=== PATIENT | female | born 1950 | race Caucasian/White ===

== ENCOUNTER → 2017-10-11 | Outpatient (CLI) | payer OTHER ==
[~2017-10-11] MED LIST: ALPR1T PO; CITA20TA4 PO; COLON HEALTH PO; CYCL10TA9 PO; ESTR2TAB PO; LEVO75TA6 PO; MEDR5TAB PO; SIMV20TA3 PO
--- NOTE | 2017-10-11 10:37 | Diagnostic Imaging Report ---
CLINICAL INDICATION: Patient lifted a heavy object a week ago. Patient is having low back pain and urinary difficulty. EXAM: X-ray of the lumbar spine, three views. COMPARISON: X-ray of the lumbar spine dated 03/24/2015. FINDINGS: There is no interval acute lumbar spine fracture or dislocation. There is levoscoliosis of lumbar spine seen which is relatively stable. The vertebral body heights and intervertebral disc heights are grossly within normal limits. There is minimal spurring of the lumbar spine again seen which has significantly changed. There is lower lumbar spine facet arthropathy. Phleboliths are seen in the pelvis. Sacroiliac joint show no major abnormality. Surgical clips are seen overlying the right upper quadrant which could be related to cholecystectomy changes. IMPRESSION: 1: There is no acute fracture or dislocation. 2: There is levoscoliosis of lumbar spine with mild lumbar spine degenerative disease which is not significantly changed. Dictated by: Dictated on workstation # [id number]
--- NOTE | 2017-10-11 10:38 | Diagnostic Imaging Report ---
Clinical indication: Patient states she lifted a heavy object a week ago. Patient having low back pain and urinary difficulty. Exam: X-ray of the sacroiliac joints, AP and bilateral oblique views. Comparison: X-ray of the lumbar spine dated 03/25/2015. Findings: There is stable appearance of the sacroiliac joints with no significant abnormality. There is no erosive changes or significant sclerosis or spurring. There is no fracture or dislocation. Visualized portions of the sacrum is unremarkable. Phleboliths are seen in the pelvis. Impression: Unremarkable x-ray of the sacroiliac joints. Dictated by: Dictated on workstation # [id number]
== END ==
LOC: RAD 09:48
PROVIDERS: ATTEND Nurse Practitioner Family
DX: M47.816 Spondylosis without myelopathy or radiculopathy, lumbar region (principal); M41.86 Other forms of scoliosis, lumbar region; N39.9 Disorder of urinary system, unspecified
CPT/HCPCS: 72100; 72202

== ENCOUNTER 2017-11-24 08:24 | Emergency (ER) | payer OTHER ==
[~2017-11-24] VITALS: Ht 170.2 cm; Wt 54.4 kg
--- OUTSIDE RECORDS SUMMARY | 2017-11-24 08:32 | XMS REPORT | Continuity of Care Document ---
Author Author [facility] Organization [facility] Address Unknown Phone Unavailable Care Team Providers [employer] Name Role Phone EULA ALICEA DO PP Insurance Providers Payer Name Policy Number Subscriber Name Relationship [facility] [id number] MedranoIlda Calhoun 01 Self / Same As Patient Advance Directives Directive Response Recorded Date Advance Directives N 09/29/12 1:21pm Health Care Power of [place] Machine Operator N 09/29/12 1:21pm Organ Donor N 09/29/12 1:21pm Problems No Known Problems or Medical conditions. Allergies, Adverse Reactions, Alerts Allergen Type Severity Reaction Last Updated Sulfa (Sulfonamides) Allergy Unknown 04/20/07 Morphine Adverse Reaction Mild UPSET STOMACH, N/V 04/21/07 Zolmitriptan Allergy Unknown 04/20/07 Medications Medication Dose Units Route Sig Qty Days [[facility]] 1 Tab PO DAILY Medroxyprogesterone Acetate (Provera) 2.5 Mg PO HS Estradiol (Estrace) 1 Mg PO HS Simvastatin 20 Mg PO HS Cyclobenzaprine HCl (Cyclobenzaprine Hcl) 10 Mg PO HS Alprazolam (Xanax) 1 Mg PO HS Citalopram Hydrobromide (CeleXA TABLET) 20 Mg PO DAILY Levothyroxine Sodium (Levothyroxine 75 Mcg Tab) 75 Mcg PO DAILY Response Recorded Date/Time Status not known Unknown Results Test Date Result Interp. Ref. Range Alanine Aminotransferase (ALT/SGPT) April 21, 2007 4: 38am 36 U/L N 30-65 Albumin April 21, 2007 4:38am 2.9 G/ DL L 3.4-5.0 Alkaline Phosphatase April 21, 2007 4:38am 62 U/L N 50-136 Aspartate Amino Transf (AST/SGOT) April 21, 2007 4:38am 29 U/L N 15-37 BUN/Creatinine Ratio April 22, 2007 8:10am 7 - Basophils # (Auto) April 22, 2007 8:10am 0.0 10^3/uL N 0.0-0.1 Basophils (%) (Auto) April 22, 2007 8:10am 0 % N 0-10 Blood Urea Nitrogen April 22, 2007 8:10am 6 MG/DL L 7-18 Calcium Level April 22, 2007 8:10am 8.8 MG/DL N 8.5-10.1 Carbon Dioxide Level April 22, 2007 8:10am 22 MMOL/L N 21-32 Chloride Level April 22, 2007 8:10am 102 MMOL/L N 101-110 Creatinine April 22, 2007 8:10am 0.9 MG/DL N 0.6-1.3 Eosinophils # (Auto) April 22, 2007 8:10am 0.0 10^3/uL N 0.0-0.3 Eosinophils (%) (Auto) April 22, 2007 8:10am 0 % N 0-10 Fasting Glucose January 02, 2009 7:21am 720 91 - Glucose 1 Hour January 02, 2009 7:21am 5040 147 - Glucose 1/2 Hour January 02, 2009 7:21am 3180 126 - Glucose 2 Hour January 02, 2009 7:21am 8880 36 - Glucose Level April 22, 2007 8:10am 196 MG/DL H 70-126 Hematocrit April 22, 2007 8:10am 41 % N 35-52 Hemoglobin April 22, 2007 8:10am 13.5 G/DL N 11.5-16.0 Lymphocytes # (Auto) April 22, 2007 8:10am 0.8 X 10^3 L 1.0-4.0 Lymphocytes (%) (Auto) April 22, 2007 8:10am 8 % L 12-44 Magnesium Level April 21, 2007 4:38am 1.6 MG/DL L 1.8-2.4 Mean Corpuscular Hemoglobin April 22, 2007 8:10am 30 PG N 25-34 Mean Corpuscular Hemoglobin Concent April 22, 2007 8: 10am 33 G/DL N 32-36 Mean Corpuscular Volume April 22, 2007 8:10am 90 FL N 80-99 Mean Platelet Volume April 22, 2007 8:10am 10.0 FL N 7.4-10.4 Monocytes # (Auto) April 22, 2007 8:10am 0.3 X 10^3 N 0.0-1.0 Monocytes (%) (Auto) April 22, 2007 8:10am 3 % N 0-12 Neutrophils # (Auto) April 22, 2007 8:10am 9.7 X 10^3 H 1.8-7.8 Neutrophils (%) (Auto) April 22, 2007 8:10am 89 % H 42-75 Platelet Count April 22, 2007 8:10am 296 10^3/uL N 130-400 Potassium Level April 22, 2007 8:10am 3.1 MMOL/L L 3.6-5.0 Red Blood Count April 22, 2007 8:10am 4.52 10^6/uL N 3.79-5.25 Red Cell Distribution Width April 22, 2007 8:10am 12.5 % N 10.0-14.5 Sodium Level April 22, 2007 8:10am 139 MMOL/L N 135-145 Total Bilirubin April 21, 2007 4:38am 0.4 MG/DL N 0.0-1.0 Total Protein April 21, 2007 4:38am 5.5 G/DL L 6.4-8.2 Urine Test April 20, 2007 8:10am Negative - White Blood Count April 22, 2007 8:10am 10.9 10^3/uL N 4.3-11.0 Estimat Glomerular Filtration Rate April 22, 2007 8:10am > 60 - Procedures Procedure Code Date LAP PROCS FOR CREATION OF ESOPHAGOGASTRIC SPHINCT COMPETENCE 44.67 04/20/07 LAPAROSCOPIC CHOLECYSTECTOMY 51.23 MRSA Screen 04/13/07 Encounters Encounter Location Date/Time Discharged Inpatient [facility] 12: 00am
--- OUTSIDE RECORDS SUMMARY | 2017-11-24 08:32 | XMS REPORT | Continuity of Care Document ---
Author Author [facility] Organization [facility] Address Unknown Phone Unavailable Allergies Active Description Code Type Severity Reaction Onset Reported/Identified Relationship to Patient Clinical Status Yes Sulfa (Sulfonamide Antibiotics) [id number] Drug Allergy Unknown N/A 2007 Yes zolmitriptan [id number] Drug Allergy Unknown N/A 04/20/2007 Yes morphine [id number] Drug Allergy Mild UPSET STOMACH, 04/21/2007 Medications There is no data. Problems Date Dx Coded Attending Type Code Diagnosis Diagnosed By 09/29/2012 TEDDY GAYTAN FAC, SERGE FACP CCDS Ot 244.9 09/29/2012 TEDDY GAYTAN FAC, SERGE FACP CCDS Ot 272.4 09/29/2012 TEDDY GAYTAN [facility], ALI FACP CCDS Ot 729.1 09/29/2012 TEDDY GAYTAN [facility], ALI FACP CCDS Ot 780.57 09/29/2012 TEDDY GAYTAN [facility], ALI FACP CCDS Ot 786.59 09/29/2012 TEDDY GAYTAN [facility], ALI FACP CCDS Ot V17.49 09/29/2012 TEDDY GAYTAN [facility], SERGE FACP CCDS Ot V58.69 03/24/2015 Ot 599.70 04/09/2015 EULA CARROLL DO Ot M54.5 10/26/2017 Ot M41.86 OTHER FORMS OF SCOLIOSIS, LUMBAR REGION 10/26/2017 Ot M47.816 SPONDYLOSIS W/O MYELOPATHY OR RADICULOPA 10/26/2017 Ot N39.9 DISORDER OF URINARY SYSTEM, UNSPECIFIED Procedures There is no data. Results There is no data. Encounters ACCT No. Visit Date/Time Discharge Status Pt. Type Provider Facility Loc./Unit Complaint [id number] 03/24/2015 12:09:00 03/24/2015 23:59:59 CLS Outpatient EULA CARROLL DO [facility] RAD [id number] 09/29/2012 13:01:00 09/29/2012 21:00:00 DIS Outpatient TEDDY GAYTAN FACC, SERGE NOVOA CCDS [facility] [id number] 10/11/2017 09:48:00 Document Registration [id number] 03/24/2015 12:08:00 Document Registration [id number] 01/07/2011 13:26:00 Document Registration 06/201711/17/2017 16:39:45 11/17/2017 23:59:59 CLS Outpatient Eula Carroll [id number] 03/26/2017 08:00:00 03/26/2017 23:59:59 CLS Outpatient STEFAN HAMMOND [facility]
--- OUTSIDE RECORDS SUMMARY | 2017-11-24 08:32 | XMS REPORT ---
Author Author MATT ESPINOSA [facility] Address [address] [place] [address] Care Team Providers Care Professional Driver Name Role Phone MATT ESPINOSA Unavailable PROBLEMS Unknown Problems ALLERGIES Substance Reaction Event Type Date Status Elavil Unknown Drug Allergy Feb, Active Ultram makes pt mean Drug Allergy Feb, Active Sulfacetamide Sodium twitching Drug Allergy Feb, Active Morphine Sulfate severe breakout ad throat swelling Drug Allergy Feb, Active Macrodantin Unknown Drug Allergy Feb, Active Ciprofloxacin Unknown Drug Allergy Feb, Active Amoxicillin hives/rash Drug Allergy Feb, Active ENCOUNTERS Encounter Location Date Diagnosis [facility] [address] [facility] [id number] [address] Feb, [facility] [address] [place], [place] [id number] [address] Jan, Acute non-recurrent maxillary sinusitis J01.00 IMMUNIZATIONS No Known Immunizations SOCIAL HISTORY Never Assessed REASON FOR VISIT Cough, sore throat started Thurs- exposed to influenza JStrasserRN, Instructed to take tylenol/ibuprofen for pain/fever. Increase fluid intake. RTC with shortness of breath PLAN OF CARE VITAL SIGNS Height 63 in 2017-03-26 Weight 117.2 lbs 2017-03-26 Temperature 100.1 degrees Fahrenheit 2017-03-26 Heart Rate 88 bpm 2017-03-26 Respiratory Rate 20 2017-03-26 BMI 20.76 kg/m2 2017-03-26 MEDICATIONS Medication Instructions Dosage Frequency Start Date End Date Duration Status Levothyroxine Sodium 88 MCG Orally Once a day 1 tablet on an empty stomach in the morning 24h Active Citalopram Hydrobromide 40 MG Orally Once a day 0.5 tablet 24h Active Activella 1-0.5 MG Orally Once a day 1 tablet 24h Active Alprazolam 1 MG Orally Twice a day 1 tablet 12h Active BuPROPion HCl 100 MG Orally Twice a day 1 tablet 12h Active Wellbutrin Active Claritin-D 24 Hour 10-240 MG Orally Once a day 1 tablet as needed 24h Active Cyclobenzaprine HCl 10 MG Orally Three times a day 1 tablet 8h Active RESULTS No Results PROCEDURES No Known procedures INSTRUCTIONS MEDICATIONS ADMINISTERED No Known Medications MEDICAL (GENERAL) HISTORY Type Description Date Surgical History cholecystectomy Surgical History tonsillectomy and adenoidectomy Surgical History section Hospitalization History Surgery only
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
[2017-11-24] MEDS ORDERED: TETANUS,DIPTH,PERTUSS P/F (BOOSTRIX) 0.5 ML VIAL IM ONE (09:45)
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
[2017-11-24] MEDS ORDERED: oxyCODONE/APAP 5/325MG (PERCOCET 5) TABLET PO ONE (11:45)
[2017-11-24] MEDS ORDERED: HYDR-3812 PO (12:21)
[2017-11-24 12:28] VITALS: BP 121/70
== END 2017-11-24 12:28 | disposition home or self-care (01) ==
LOC: EDUNIT# 08:24 → ER 08:25
DX: S22.018A Other fracture of first thoracic vertebra, initial encounter for closed fracture (principal); S22.028A Other fracture of second thoracic vertebra, initial encounter for closed fracture; S42.012A Anterior displaced fracture of sternal end of left clavicle, initial encounter for closed fracture; G43.909 Migraine, unspecified, not intractable, without status migrainosus; F32.9 Major depressive disorder, single episode, unspecified; Z87.19 Personal history of other diseases of the digestive system; Z23 Encounter for immunization; Z88.2 Allergy status to sulfonamides; Z88.5 Allergy status to narcotic agent; Z88.8 Allergy status to other drugs, medicaments and biological substances; Z98.890 Other specified postprocedural states; Z90.89 Acquired absence of other organs; V47.5XXA Car driver injured in collision with fixed or stationary object in traffic accident, initial encounter
CPT/HCPCS: 70450; 71250; 72125; 90715

== ENCOUNTER 2018-10-03 05:47 | Outpatient (CLI) | payer OTHER ==
[~2018-10-03] VITALS: Ht 160 cm; Wt 56.7 kg
[~2018-10-03 05:47] MED LIST changes: +HYDR-3812 PO
[2018-10-03] MEDS ORDERED: MULT-178 PO (11:26)
[2018-10-03] MEDS ORDERED: ESTR1TAB22 PO (11:26)
[2018-10-03] MEDS ORDERED: CITA40TA11 PO (11:26)
[2018-10-03] MEDS ORDERED: OMG1KC PO (11:26)
[2018-10-03] MEDS ORDERED: LEVO88TA54 PO (11:26)
[2018-10-03] MEDS ORDERED: CHOL2000 PO (11:26)
[2018-10-03] MEDS ORDERED: MONT10TA21 PO (11:26)
[2018-10-03] MEDS ORDERED: ALPR1TAB2 PO (11:26)
[2018-10-03] MEDS ORDERED: LORA-877 PO (11:26)
[2018-10-03] MEDS ORDERED: BUPR100T15 PO (11:26)
== END 2018-10-03 11:28 ==
LOC: PREOP 05:47
PROVIDERS: ATTEND Internal Medicine
DX: Z01.818 Encounter for other preprocedural examination (principal); Z12.11 Encounter for screening for malignant neoplasm of colon

== ENCOUNTER 2018-10-06 07:26 | Day surgery (SDC) | payer OTHER ==
--- NOTE | 2018-09-27 03:46 | HISTORY AND PHYSICAL ---
DATE OF SERVICE: 10/06/2018 COLONOSCOPY HISTORY AND PHYSICAL DATE OF ADMISSION: 10/06/2018. HISTORY OF PRESENT ILLNESS: The patient is a 68-year-old white female, referred by Dr. Carroll, for screening colonoscopy. She is deemed to be of higher than average risk as her father was diagnosed and succumbed to colon cancer at the age of 81. She recently had a sister who had to undergo sigmoid resection for what sounds like diverticular related abscess. Her last colonoscopy she believes was a little over 11 years ago. She does not recall having any polyps, but believes she was told she had diverticular disease. She denies any bowel habit change, but typically vacillates between diarrhea and constipation that dates back to likely middle school. She states her weight has been stable. She denies melena or bright red blood per rectum. PAST MEDICAL HISTORY: Significant for chronic low back pain, had a recent left SI joint steroid injection with improvement in symptoms. 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 PAST SURGICAL HISTORY: She has had what sounds like a Phillip fundoplication as well as gastropexy for a large hiatal hernia and has distant past history of tonsillectomy and adenoidectomy, appendectomy and a . MEDICATIONS ON ADMISSION: Include L-thyroxine 88 mcg daily, Claritin-D 1 daily, bupropion XL 100 mg daily, citalopram 40 mg daily, Singulair 10 mg daily, alprazolam 1 mg twice daily, vitamin D 5000 units daily, fish oil tablets daily and cyclobenzaprine 10 mg p.r.n. FAMILY HISTORY: Most pertinent for father who succumbed to colon cancer at the age of 81. She is not aware of any other history of GI tract malignancy or other cancers. SOCIAL HISTORY: She denies any past smoking or any significant alcohol consumption history. REVIEW OF SYSTEMS: CONSTITUTIONAL: She has had no night sweats, chills, fever. She does report about a 10-pound weight gain over the past six months. CARDIOVASCULAR: She denies chest pain, palpitations, heart racing. She has had no orthopnea, PND or pedal edema. PULMONARY: She has had no problems with cough, dyspnea on exertion or at rest. GASTROINTESTINAL: As per HPI. PHYSICAL EXAMINATION: GENERAL: Reveals a white female who did not appear to be in acute distress. VITAL SIGNS: Blood pressure was 130/70, weight 129 pounds. HEENT: Unremarkable. Sclerae nonicteric. She has a Mallampati class 2 oropharyngeal configuration. CHEST: Clear to auscultation. CARDIOVASCULAR: Reveals a regular rate and rhythm without murmur, S3 or S4. ABDOMEN: Soft, supple without mass or organomegaly. She has mild bilateral lower quadrant discomfort to palpation without rebound or guarding. Bowel sounds are positive. No bruits are noted. EXTREMITIES: Reveal no cyanosis, clubbing or edema. LABORATORY DATA: Electronic medical record was reviewed. CT scanning from 2007 did reveal diverticular disease confined to the sigmoid colon. ASSESSMENT AND PLAN: The patient is set up for screening colonoscopy, deemed to be of higher than average risk due to first-degree relative with colon cancer, index case being her father, who succumbed to disease at the age of 81. As the patient has history of irritable bowel type symptoms and is intolerant to narcotics/morphine, we will plan on doing the procedure under anesthesia, administer Diprivan. The patient was set up for 10/06. Prep instructions with the Suprep kit were given and questions were answered. I thank you for the referral of this pleasant lady. Job ID: [id number] DocumentID: [id number] Dictated Date: 09/21/2018 16:44:06 Workforce Management Analyst Date: 09/21/2018 17:09:08 Dictated By: FRED RUDOLPH MD
[~2018-10-06] VITALS: Ht 160 cm; Wt 56.7 kg
[2018-10-06] VITALS (9 sets, daily range): BP systolic 92–119; BP diastolic 53–74
[~2018-10-06 07:26] MED LIST changes: +ALPR1TAB2 PO; +BUPR100T15 PO; +CHOL2000 PO; +CITA40TA11 PO; +ESTR1TAB22 PO; +LACTATED RINGERS 1,000 ML IV ONE; +LEVO88TA54 PO; +LORA-877 PO; +MONT10TA21 PO; +MULT-178 PO; +OMG1KC PO
[2018-10-06] MEDS ORDERED: LACTATED RINGERS 1,000 ML IV STA (07:31)
[2018-10-06] MEDS ORDERED: LIDOCAINE JELLY 2% 6 ML SYRINGE MM PRN (07:45)
[2018-10-06] MEDS ORDERED: PROPOFOL INJECTION 50 ML IV ONE (08:02)
[2018-10-06] MEDS ORDERED: LIDOCAINE JELLY 2% 6 ML SYRINGE ONE (08:25)
--- NOTE | 2018-10-06 09:28 | Anesthesia-General Post-Op ---
MAC Patient Condition Mental Status/LOC: Same as Preop Cardiovascular: Satisfactory Nausea/Vomiting: Absent Respiratory: Satisfactory Pain: Controlled Complications: Absent Post Op Complications Complications None Follow Up Care/Instructions Patient Instructions None needed. Anesthesiology Discharge Order Discharge Order Patient is doing well, no complaints, stable vital signs, no apparent adverse anesthesia problems. No complications reported per nursing. KAREN MAYER CRNA Oct 06, 2018 09:28
--- NOTE | 2018-10-06 09:46 | Pre-Op Note & Conscious Sedat ---
Pre-Operative Progress Note H&P Reviewed The H&P was reviewed, patient examined and no changes noted. Date H&P Reviewed: Oct 06, 2018 Time H&P Reviewed: 07:55 Conscious Sedation Pre-Proced ASA Score 2 For ASA 3 and 4: Consider anesthesia and medical clearance. Also, for patients with a history of failed moderate sedation consider anesthesia. Airway Lungs Heart ASA score ASA 1: a normal healthy patient ASA 2: a patient with a mild systemic disease (mid diabetes, controlled hypertension, obesity ASA 3: a patient with a severe systemic disease that limits activity (angina, COPD, prior Myocardial infarction) ASA 4: a patient with an incapacitating disease that is a constant threat to life (CHF, renal failure) ASA 5: a moribund patient not expected to survive 24 hrs. (ruptured aneurysm) ASA 6: a declared brain- patient whose organs are being harvested. For emergent operations, add the letter E after the classification Mallampati Classification Grade 2 Sedation Plan Analgesia, Amnesia, Plan communicated to team members, Discussed options with patient/fam, Discussed risks with patient/fam The patient is an appropriate candidate to undergo the planned procedure, sedation, and anesthesia. The patient immediately re-assessed prior to indication. FRED RUDOLPH MD Oct 06, 2018 09:46
--- NOTE | 2018-10-06 20:51 | OPERATIVE REPORT ---
DATE OF SERVICE: COLONOSCOPY SUMMARY INDICATION FOR THE PROCEDURE: Screening colonoscopy. The patient was placed in the left lateral decubitus position. Prior to undergoing colonoscopy, digital rectal evaluation was performed. Anal sphincter tone was normal and the perianal reflexes intact. No abnormalities were noted on digital inspection of the anal canal or distal rectal vault. The colonoscope was then inserted into the rectum under direct visualization, advanced to the cecum. The cecum was identified by identification of the ileocecal valve and cecal strap. Photographic documentation was obtained. Careful inspection was made as the colonoscope was withdrawn. The patient tolerated the procedure well. FINDINGS: There was no evidence for internal or external hemorrhoids and the rectum was unremarkable. Several small to medium size sigmoid diverticulum were present without evidence for diverticulitis. The descending colon, splenic flexure, transverse colon, ascending colon and cecum were unremarkable. ASSESSMENT: Mild diverticular disease confined to the sigmoid colon was present without evidence for diverticulitis. This was otherwise normal colonoscopy to the cecum. We would advocate consideration for repeat screening colonoscopy in 10 years. I thank you for the referral of this pleasant lady. Job ID: [id number] DocumentID: [id number] Dictated Date: 10/06/2018 11:39:42 Principal Mechanical Engineer Date: 10/06/2018 20:50:27 Dictated By: FRED RUDOLPH MD
== END 2018-10-06 10:25 | disposition home or self-care (01) ==
LOC: ENDO 07:26
PROVIDERS: ATTEND Internal Medicine
DX: Z12.11 Encounter for screening for malignant neoplasm of colon (principal); K57.30 Diverticulosis of large intestine without perforation or abscess without bleeding; M54.2 Cervicalgia; E06.3 Autoimmune thyroiditis; F32.9 Major depressive disorder, single episode, unspecified; J30.2 Other seasonal allergic rhinitis; G47.33 Obstructive sleep apnea (adult) (pediatric); J44.9 Chronic obstructive pulmonary disease, unspecified; K21.9 Gastro-esophageal reflux disease without esophagitis; Z79.899 Other long term (current) drug therapy; Z80.0 Family history of malignant neoplasm of digestive organs

== ENCOUNTER 2018-10-26 17:29 | Emergency (ER) | payer OTHER ==
[~2018-10-26] VITALS: Ht 160 cm; Wt 56.2 kg
[~2018-10-26 17:29] MED LIST changes: -HOLD METFORMIN - RECEIVED CONTRAST 20 ML VIAL IV SCH; -IOHEXOL 350 MG/ML 100 ML (OMNIPAQUE 350) VIAL IV ONE; -NS 100 ML (IVPB) BAG IV ONE
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
[2018-10-26] MEDS: ONDANSETRON 4 MG/2 ML (SDV) Z0FRAN IVP ONE (18:15)
[2018-10-26] MEDS: fentaNYL INJECTION 100 MCG/2 ML AMP IVP ONE ×2 (18:15→19:15)
[2018-10-26 18:21] LABS: BASOPHILS % (AUTO) 0 % (0-10); EOSINOPHILS # (AUTO) 0.1 10^3/uL (0.0-0.3); EOSINOPHILS % (AUTO) 1 % (0-10); HEMATOCRIT 43 % (35-52); HEMOGLOBIN 14.7 G/DL (11.5-16.0); LYMPHOCYTES # (AUTO) 2.1 X 10^3 (1.0-4.0); LYMPHOCYTES % (AUTO) 17 % (12-44); MEAN CORPUSCULAR HEMOGLOBIN 31 PG (25-34); MEAN CORPUSCULAR HGB CONC 34 G/DL (32-36); MEAN CORPUSCULAR VOLUME 91 FL (80-99); MEAN PLATELET VOLUME 10.1 FL (7.4-10.4); MONOCYTES # (AUTO) 1.2 X 10^3 (0.0-1.0); MONOCYTES % (AUTO) 10 % (0-12); NEUTROPHILS # (AUTO) 8.7 X 10^3 (1.8-7.8); NEUTROPHILS % (AUTO) 72 % (42-75); PLATELET COUNT 323 10^3/uL (130-400); RED CELL DISTRIBUTION WIDTH 12.6 % (10.0-14.5); WHITE BLOOD COUNT 12.1 10^3/uL (4.3-11.0)
[2018-10-26] MEDS: HURRICAINE EXT TUBE (BENZOCAINE) ONE ×2 (18:26→19:20)
[2018-10-26 18:35] LABS: ALANINE AMINOTRANSFERASE 10 U/L (0-55); ALBUMIN 4.5 GM/DL (3.2-4.5); ALKALINE PHOSPHATASE 83 U/L (40-136); BILIRUBIN,TOTAL 0.7 MG/DL (0.1-1.0); BUN/CREATININE RATIO 18; CALCIUM 9.9 MG/DL (8.5-10.1); CARBON DIOXIDE 19 MMOL/L (21-32); CHLORIDE 100 MMOL/L (98-107); GFR ESTIMATED > 60; GLUCOSE 83 MG/DL (70-105); LIPASE 47 U/L (8-78); POTASSIUM 3.7 MMOL/L (3.6-5.0); SODIUM 136 MMOL/L (135-145); TOTAL PROTEIN 7.3 GM/DL (6.4-8.2)
--- NOTE | 2018-10-26 18:37 | Diagnostic Imaging Report ---
INDICATION: Bowel obstruction, NG tube placement. EXAMINATION: Frontal chest obtained at 06:21 p.m. FINDINGS: Heart and mediastinal silhouette are normal in appearance. The lungs are clear. There is no pneumothorax or pleural fluid. NG tube tip is just barely into the stomach, slightly beyond the GE junction. Recommend advancing. IMPRESSION: No acute infiltrate or pneumothorax or pleural fluid. NG tube tip is just barely into the stomach, recommend advancing. Dictated by: Dictated on workstation # [id number]
[2018-10-26 19:33] VITALS: BP 121/91
== END 2018-10-26 19:35 | disposition short-term general hospital (02) ==
LOC: EDUNIT# 17:29 → ER 17:31
DX: K56.609 Unspecified intestinal obstruction, unspecified as to partial versus complete obstruction (principal); G43.909 Migraine, unspecified, not intractable, without status migrainosus; G47.30 Sleep apnea, unspecified; E03.9 Hypothyroidism, unspecified; F32.9 Major depressive disorder, single episode, unspecified; K21.9 Gastro-esophageal reflux disease without esophagitis; D64.9 Anemia, unspecified; M79.7 Fibromyalgia; Z87.19 Personal history of other diseases of the digestive system; Z87.440 Personal history of urinary (tract) infections; Z99.89 Dependence on other enabling machines and devices; Z90.49 Acquired absence of other specified parts of digestive tract; Z98.890 Other specified postprocedural states; Z88.2 Allergy status to sulfonamides; Z88.0 Allergy status to penicillin; Z88.1 Allergy status to other antibiotic agents; Z88.5 Allergy status to narcotic agent; Z88.8 Allergy status to other drugs, medicaments and biological substances; Z79.52 Long term (current) use of systemic steroids; Z90.89 Acquired absence of other organs
CPT/HCPCS: 36415; 71045; 80053; 83690; 85025

== ENCOUNTER → 2018-10-26 | Outpatient (CLI) | payer OTHER ==
[~2018-10-26] MED LIST changes: +HOLD METFORMIN - RECEIVED CONTRAST 20 ML VIAL IV SCH; +IOHEXOL 350 MG/ML 100 ML (OMNIPAQUE 350) VIAL IV ONE; -LACTATED RINGERS 1,000 ML IV ONE; +NS 100 ML (IVPB) BAG IV ONE
[2018-10-26 14:22] LABS: BASOPHILS % (AUTO) 0 % (0-10); EOSINOPHILS # (AUTO) 0.1 10^3/uL (0.0-0.3); EOSINOPHILS % (AUTO) 1 % (0-10); HEMATOCRIT 42 % (35-52); HEMOGLOBIN 13.8 G/DL (11.5-16.0); LYMPHOCYTES # (AUTO) 1.7 X 10^3 (1.0-4.0); LYMPHOCYTES % (AUTO) 15 % (12-44); MEAN CORPUSCULAR HEMOGLOBIN 30 PG (25-34); MEAN CORPUSCULAR HGB CONC 33 G/DL (32-36); MEAN CORPUSCULAR VOLUME 92 FL (80-99); MEAN PLATELET VOLUME 9.4 FL (7.4-10.4); MONOCYTES # (AUTO) 1.2 X 10^3 (0.0-1.0); MONOCYTES % (AUTO) 11 % (0-12); NEUTROPHILS # (AUTO) 8.1 X 10^3 (1.8-7.8); NEUTROPHILS % (AUTO) 73 % (42-75); PLATELET COUNT 336 10^3/uL (130-400); RED CELL DISTRIBUTION WIDTH 12.7 % (10.0-14.5); WHITE BLOOD COUNT 11.1 10^3/uL (4.3-11.0)
[2018-10-26 14:46] LABS: ALANINE AMINOTRANSFERASE 8 U/L (0-55); ALBUMIN 4.3 GM/DL (3.2-4.5); ALKALINE PHOSPHATASE 78 U/L (40-136); BILIRUBIN,TOTAL 0.6 MG/DL (0.1-1.0); BUN/CREATININE RATIO 16; CALCIUM 9.5 MG/DL (8.5-10.1); CARBON DIOXIDE 22 MMOL/L (21-32); CHLORIDE 102 MMOL/L (98-107); CREATININE SERUM 0.88 MG/DL (0.60-1.30); GFR ESTIMATED > 60; GLUCOSE 91 MG/DL (70-105); POTASSIUM 3.7 MMOL/L (3.6-5.0); SODIUM 137 MMOL/L (135-145); TOTAL PROTEIN 6.9 GM/DL (6.4-8.2)
--- NOTE | 2018-10-26 17:06 | Diagnostic Imaging Report ---
PROCEDURE: CT abdomen and pelvis with contrast. TECHNIQUE: Multiple contiguous axial images were obtained through the abdomen and pelvis after administration of intravenous contrast. Auto Exposure Controls were utilized during the CT exam to meet ALARA standards for radiation dose reduction. INDICATION: Generalized abdominal pain. Bloating. COMPARISON: Chest CT performed on 11/24/[address] abdomen and pelvis performed on 01/07/2011. FINDINGS: The lung bases are clear and the visualized heart is normal in size. The liver, spleen, pancreas, and adrenal glands are unremarkable. The gallbladder is surgically absent. There is mild prominence of the central intrahepatic biliary ducts, as well as the common bile duct which is unchanged from 11/24/2017 exam and likely on the basis of prior cholecystectomy. The kidneys are symmetric in size and demonstrate normal enhancement, without evidence of renal calculus, hydronephrosis, or suspicious renal mass. Subcentimeter foci of low attenuation in both kidneys are too small to characterize on the basis of this exam, likely cysts. The visualized ureters are normal. There is severe dilatation of a single loop of small bowel which measures up to 8.5 cm in diameter and demonstrates an air-fluid level. Small bowel loops proximal and distal to this are relatively decompressed. There is suggestion of twisting of the small bowel mesentery in the right lower quadrant that appears to be the nidus for this finding (images 38-51 series 2 and images 19-25 series 601). The colon is largely decompressed. The patient is status post Phillip fundoplication. There is mild gaseous distention of the stomach. There is marked colonic diverticulosis, without evidence of acute diverticulitis. No pneumoperitoneum. There is trace free fluid layering in the posterior pelvis and in the anterior pelvis above the bladder. No loculated or rim-enhancing collection is demonstrated. There is mild inflammatory change in the mesentery of the right lower quadrant. The bladder is normal, within limits of underdistention. There is a 2.4 cm exophytic rounded enhancing mass projecting superiorly off of the right aspect of the uterus near the fundus. No adnexal mass is demonstrated. The aorta is nonaneurysmal. There is no evidence of venous thrombosis. The abdominal wall is unremarkable. Mild degenerative changes involve the spine. No acute osseous abnormality is appreciated. IMPRESSION: There is severe dilatation of a small bowel loop in the central and left upper abdomen. This appears to be caused by twisting of the small bowel mesentery in the right lower quadrant and is concerning for a closed-loop obstruction, possibly related to an internal hernia. Urgent surgical consultation is recommended. There is no evidence of bowel perforation at this time. Trace free fluid in the pelvis is likely related to the small bowel process. No loculated collection is demonstrated. Exophytic enhancing mass projecting posteriorly off of the right uterine fundus, likely representing a fibroid. This can be further evaluated with dedicated pelvic ultrasound, as clinically indicated. Unchanged central intrahepatic and common bile duct prominence, likely on the basis of prior cholecystectomy. Recommend correlation with history/physical exam and laboratory values, as clinically indicated. The above findings were discussed with Shama Garcia APRN, on 10/26/2018 at 1630 hrs. Dictated by: Dictated on workstation # [id number]
== END ==
LOC: RAD 14:06
PROVIDERS: ATTEND Nurse Practitioner Family
DX: K63.89 Other specified diseases of intestine (principal); N85.8 Other specified noninflammatory disorders of uterus; R10.84 Generalized abdominal pain; Z90.49 Acquired absence of other specified parts of digestive tract; Z98.890 Other specified postprocedural states
CPT/HCPCS: 36415; 74177; 80053; 85025

== ENCOUNTER 2018-11-19 08:55 | Outpatient (RCR) | payer OTHER ==
[2018-11-18 09:15] VITALS: BP_SYST 0; BP_SYST 104; BP_DIAS 0; BP_DIAS 44
[~2018-11-19] VITALS: Ht 160 cm; Wt 53.2 kg
[2018-11-19 09:15] VITALS: BP 105/64
== END 2019-02-15 | disposition home or self-care (01) ==
LOC: SDC 08:55
PROVIDERS: ATTEND Surgery
DX: K56.609 Unspecified intestinal obstruction, unspecified as to partial versus complete obstruction (principal)
CPT/HCPCS: 99212

== ENCOUNTER 2019-09-01 23:58 | Emergency (ER) | payer MEDICARE, OTHER ==
[~2019-09-01] VITALS: Ht 160 cm; Wt 48.0 kg
[~2019-09-01 23:58] MED LIST changes: +ACHD5005 PO; -HYDR-3812 PO
--- OUTSIDE RECORDS SUMMARY | 2019-09-02 00:08 | XMS REPORT | CCD ---
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 M54.6] Diagnosis: Chondrocostal junction syndrome [Tietze][ICD10: M94.0] Alexandra Danelawandajavier ALEXANDRA MacyAri [employer] [facility] CPT-4: 15348 09/06/2016 OFFICE/OUTPATIENT VISIT EST Diagnosis: Acute sinusitis, unspecified[ICD10: J01.90] Vidya Manuel ALEXANDRA MacyAri [employer] [facility] CPT-4: 31087 08/16/2016 ([id number]) OFFICE/OUTPATIENT VISIT EST Diagnosis: Primary insomnia[ICD10: F51.01] Diagnosis: Cramp and spasm[ICD10: R25.2] Diagnosis: Major depressive disorder, single episode, mild[ICD10: F32.0] Alexandrateja CARROLL [employer] [facility] CPT-4: 80636 07/19/2016 ([id number]) OFFICE/OUTPATIENT VISIT EST Diagnosis: Obstructive sleep apnea (adult) (pediatric)[ICD10: G47.33] Diagnosis: Other fatigue[ICD10: R53.83] Diagnosis: Allergic rhinitis due to pollen[ICD10: J30.1] Diagnosis: Headache[ICD10: R51] Alexandra CARROLL DO [facility] CPT-4: 02165 07/06/2016 ([id number]) OFFICE/OUTPATIENT VISIT EST Diagnosis: Acute recurrent sinusitis, unspecified[ICD10: J01.91] Diagnosis: Allergic rhinitis due to pollen[ICD10: J30.1] Alexandra CARROLL DO [facility] CPT-4: 51110 06/15/2016 ([id number]) OFFICE/OUTPATIENT VISIT EST Diagnosis: Migraine, unspecified, not intractable, without status migrainosus[ICD10: G43.909] Diagnosis: Allergic rhinitis, unspecified[ICD10: J30.9] Nae CARR[employer]LL [employer] [facility] CPT-4: 55681 04/09/2016 ([id number]) OFFICE/OUTPATIENT VISIT EST Diagnosis: Hypothyroidism, unspecified[ICD10: E03.9] Diagnosis: Other fatigue[ICD10: R53.83] Diagnosis: Mixed hyperlipidemia[ICD10: E78.2] Diagnosis: Major depressive disorder, single episode, mild[ICD10: F32.0] Alexandra CARR[employer]LL [employer] [facility] CPT-4: 16553 03/17/2016 ([id number]) OFFICE/OUTPATIENT VISIT EST Diagnosis: Insomnia, unspecified[ICD10: G47.00] Diagnosis: Encounter for therapeutic drug level monitoring[ICD10: Z51.81] Nae Woody SHAFFERLINE Ty CARR[employer] [facility] CPT-4: 06568 11/13/2015 ([id number]) OFFICE/OUTPATIENT VISIT EST Diagnosis: Hematuria, unspecified[ICD10: R31.9] Alexandra CARROLL [employer] [facility] CPT-4: 49964 05/05/2015 ([id number]) OFFICE/OUTPATIENT VISIT EST Diagnosis: Other intervertebral disc degeneration, lumbar region[ICD10: M51.36] Diagnosis: Radiculopathy, lumbosacral region[ICD10: M54.17] Alexandra CARROLL DO [facility] CPT-4: 12440 04/22/2015 ([id number]) OFFICE/OUTPATIENT VISIT EST Diagnosis: Low back pain[ICD10: M54.5] Diagnosis: Recurrent and persistent hematuria with unspecified morphologic changes[ICD10: N02.9] Alexandradanielle CARROLL DO [facility] CPT-4: 62692 03/24/2015 ([id number]) OFFICE/OUTPATIENT VISIT EST Diagnosis: Acute sinusitis, unspecified[ICD10: J01.90] Diagnosis: Headache[ICD10: R51] Diagnosis: Retention of urine, unspecified[ICD10: R33.9] Diagnosis: Hypothyroidism, unspecified[ICD10: E03.9] Alexandradanielle SHAFFERLINE MacyAri GLEN SALGUERO [facility] CPT-4: 49851 02/27/2015 ([id number]) PREV VISIT EST AGE 40-64 Diagnosis: ROUTINE MEDICAL EXAM[ICD9: V70.0] Diagnosis: HYPOTHYROIDISM[ICD9: 244.9] Diagnosis: HYPERLIPIDEMIA NEC/NOS[ICD9: 272.4] Alexandra Danejames CORDOBA Ty CARROLL DO [facility] CPT-4: 61491 06/13/2014 ([id number]) OFFICE/OUTPATIENT VISIT EST Diagnosis: CEPHALGIA[ICD9: 784.0] Diagnosis: Nausea[ICD9: 787.02] Shalini Romeo MARINQUELINE Ty CARROLL DO [facility] CPT-4: 54785 04/18/2014 ([id number]) OFFICE/OUTPATIENT VISIT EST Diagnosis: INSOMNIA NOS[ICD9: 780.52] Diagnosis: Complicated grieving[ICD9: 309.0] Alexandra Louise MacyAri GLEN SALGUERO [facility] CPT-4: 16324 12/05/2013 ([id number]) OFFICE/OUTPATIENT VISIT EST Diagnosis: Muscle twitch[ICD9: 781.0] Diagnosis: ALLERGIC RHINITIS[ICD9: 477.9] Alexandra FORDE Macy Ari GLEN SALGUERO [facility] CPT-4: 99883 06/05/2013 ([id number]) OFFICE/OUTPATIENT VISIT EST Diagnosis: DEPRESSIVE DISORDER NEC[ICD9: 311] Alexandra Orendjavier QUINTERO S. DANENDER [facility] CPT-4: 65426 05/22/2013 OFFICE/OUTPATIENT VISIT EST Diagnosis: Shingles[ICD9: 053.9] Alexandra VELANDER [facility] CPT-4: 96421 04/05/2013 ([id number]) OFFICE/OUTPATIENT VISIT EST Diagnosis: DEPRESSIVE DISORDER NEC[ICD9: 311] Alexandrateja QUINTERO S. DANENDER DO [facility] CPT-4: 42636 03/26/2013 ([id number]) OFFICE/OUTPATIENT VISIT EST Diagnosis: Complicated grieving[ICD9: 309.0] Alexandra Carroll PAM Dani SAri VELANDER [facility] CPT-4: 76087 03/06/2013 ([id number]) OFFICE/OUTPATIENT VISIT EST Diagnosis: CEPHALGIA, TENSION[ICD9: 307.81] Diagnosis: MIGRAINE NOS/NOT INTRCBL[ICD9: 346.90] Diagnosis: Cervicalgia[ICD9: 723.1] Alexandra Velalawandajavier SHAFFERALEXANDRA Ty VELAN IZABELLA [facility] CPT-4: 51553 11/29/2012 ([id number]) OFFICE/OUTPATIENT VISIT EST Diagnosis: Jaw pain[ICD9: 784.92] Diagnosis: Shoulder pain[ICD9: 719.41] Diagnosis: Family history of premature coronary artery disease[ICD9: V17.3] Alexandra Danejames ALEXANDRA MacyAri GLEN [facility] CPT-4: 47207 09/26/2012 ([id number]) OFFICE/OUTPATIENT VISIT EST Diagnosis: ABDOMINAL PAIN[ICD9: 789.00] Diagnosis: Constipation[ICD9: 564.00] Diagnosis: Hematuria[ICD9: 599.70] Alexandra Carroll ALEXANDRA MacyAri DANEND ER [facility] CPT-4: 11609 07/11/2012 ([id number]) OFFICE/OUTPATIENT VISIT EST Diagnosis: ANEMIA NOS[ICD9: 285.9] Alexandra FORDE MacyAri DANEND ER DO [facility] CPT-4: 03070 02/17/2012 ([id number]) PREV VISIT EST AGE 40-64 Diagnosis: ROUTINE MEDICAL EXAM[ICD9: V70.0] Diagnosis: HYPOTHYROIDISM[ICD9: 244.9] Diagnosis: HYPERLIPIDEMIA NEC/NOS[ICD9: 272.4] Diagnosis: Obstructive sleep apnea[ICD9: 327.23] Alexandra Glen ISLAS S. ORENDER DO [facility] CPT-4: 40797 02/02/2012 ([id number]) OFFICE/OUTPATIENT VISIT EST Diagnosis: URINARY TRACT INFECTION[ICD9: 599.0] Alexandra Glen LOZANO S. ORENDER DO [facility] CPT-4: 92658 08/27/2011 ([id number]) OFFICE/OUTPATIENT VISIT EST Diagnosis: URINARY TRACT INFECTION[ICD9: 599.0] Diagnosis: ACUTE CYSTITIS[ICD9: 595.0] Alexandra Glen ALEXANDRA S. O RENDER DO [facility] CPT-4: 83205 08/17/2011 OFFICE/OUTPATIENT VISIT EST Diagnosis: URINARY TRACT INFECTION[ICD9: 599.0] Steph MARINQUE DANIELLE S. ORENDER DO [facility] CPT-4: 23758 10/14/2010 Plan of Care Planned Activity Notes Codes Status Date Appointment: Alexandra Carroll WPtel: [facility] [place] [address] 07/26/2019 Visit Diagnosis Plan: Urinary tract infection, site no t specified Discussion: urine sent for culture. cipro prescribed to take as directed and instructed to stop the macrobid that she has since there is no improvement in symptoms. push fluids. will call patient pending culture results. ICD-9 : 599.0 ICD-10 : N39.0 07/17/2019 Appointment: [facility]andana [facility]we [facility] ACUTE ILLNESS 07/17/2019 Patient Education: Cipro- [employer] Abiel [phone] [email or web address]/resources/getResource/61/[email or web address]-[email or web address].pdf Completed 07/17/2019 Visit Diagnosis Plan: Allergic dermatitis Discussion: Could be numerous things that were given during surgery Continue benadryl Add Prednisone Notify if persists/worsens ICD-9 : 692.9 ICD-10 : L23.9 06/26/2019 Appointment: Alexandra Carroll WPtel: 2[address] [facility] ACUTE ILLNESS 06/26/2019 Patient Education: prednisone- [employer] Coupon [phone] https://www.Co.Import/sampleInsideMaps/resources/getResource/61/94519789-[email or web address]-a5 Completed 06/26/2019 Visit Diagnosis Plan: Cellulitis of left arm Discussio n: due to patient's multiple allergies, levaquin was prescribed to take as directed. call office with new or worsening symptoms. ICD-9 : 682.3 ICD-10 : L03.114 05/14/2019 Visit Diagnosis Plan: Contact dermatitis due to plant Discussion: kenalog 40 and dexa 4 given in office. i called the office of dr. albert to make sure he was ok with patient receiving steroid injection a week pre-op and dr. albert's [facility] voiced ok to give. ICD-9 : 692.6 ICD-10 : L25.5 05/14/2019 Appointment: Vandana Crowe [address] [place] [address] ACUTE ILLNESS 05/14/2019 Patient Education: Levaquin- [employer] Coupon [phone] [email or web address] [email or web address]/resources/getResource/61/[email or web address] Completed 05/14/2019 Visit Diagnosis Plan: Ventral hernia Discussion: See s urgery for repair Discussed signs of incarceration or strangulation then is to report to ER ICD-9 : 553.20 ICD-10 : K43.9 04/10/2019 Appointment: Alexandra Carroll WPtel: [address] [facility] left second message 04/10/19 at 10:20 ACUTE ILLNE SS 04/10/2019 Care Plan: Referral Order SNOMED-CT : 30 [id number] Pending 04/10/2019 Visit Diagnosis Plan: Insomnia Discussion: Trazadone 1 50mg with alprazolam 1mg po q HS for 1 week then call on how doing ICD-9 : 780.52 ICD-10 : G47.00 02/14/2019 Visit Diagnosis Plan: Thrombocytosis Discussion: Check iron and ferritin with next blood draw in 2 weeks Discussed if iron stores are normal and continue to have elevating platelets then will need bone marrow ICD-9 : 238.71 ICD-10 : D47.3 02/14/2019 Appointment: Alexandra Carroll WPtel: [address] [place] [address] FOLLOW UP 02/14/2019 Appointment: Alexandra Carroll WPtel: [address] [place] [address] US CANCELED 02/12/2019 Visit Diagnosis Plan: Onychomycosis Discussion: Send n ail for culture ICD-9 : 110.1 ICD-10 : B35.1 01/16/2019 Visit Diagnosis Plan: Small bowel obstruction Discussi on: S/P surgery in September with postop complications of wound dehiscence ICD-9 : 560.9 ICD-10 : K56.609 01/16/2019 Appointment: Alexandra Carroll WPtel: [address] [place] [address] MEDICATION REVIEW 01/16/2019 Appointment: Alexandra Carroll WPtel: [address] [place], [place] [id number] US CANCELED 12/12/2018 Visit Diagnosis Plan: Diarrhea, unspecified Discussion : Due for updated colonoscopy ICD-9 : 787.91 ICD-10 : R19.7 09/18/2018 Visit Diagnosis Plan: Radiculopathy, lumbosacral regio n Discussion: Had left SI joint injection by Dr. Baig about 2 weeks ago and has fwup with him ICD-9 : 724.4 ICD-10 : M54.17 09/18/2018 Appointment: Alexandra Carroll WPtel: [address] [place] [address] PATIENT CONSULT 15 09/18/2018 Care Plan: Referral Order SNOMED-CT : 30 [id number] Pending 09/18/2018 Visit Diagnosis Plan: Other intervertebral disc degene ration, lumbar region Follow Up: 3 months ICD-9 : 722.52 ICD-10 : M51.36 08/10/2018 Visit Diagnosis Plan: Obstructive sleep apnea (adult) (pediatric) Discussion: New rx for CPAP written out as patient uses CPAP nightly and continues to benefit from its use and need ICD-9 : 327.23 ICD-10 : G47.33 08/10/2018 Visit Diagnosis Plan: Sacroiliitis, not elsewhere clas sified Discussion: Referral for possible SI joint injection vs facet joint vs other injections or modalities--Dr. Levin has tried sulindac, relafen, and now on etolodac--recommend she add a daily pepcid or zantac for GI protection ICD-9 : 720.2 ICD-10 : M46.1 08/10/2018 Appointment: Alexandra Carroll WPtel: [address] [place], [place] [id number] [place] MEDICATION REVIEW 08/10/2018 Care Plan: Referral Order SNOMED-CT : 30 [id number] Pending 08/10/2018 Appointment: Alexandra Carroll WPtel: [address] [place], [place] [address] [place] CANCELED 04/17/2018 Visit Diagnosis Plan: Fracture of unspec ified part of left clavicle, subsequent encounter for fracture with routine healing Discussion: Pain much improved Discussed that left arm weakness will improve with time--has increased to 2 lb weight and will slowly go up with time ICD-9 : V54.11 ICD-10 : S42.002D 03/27/2018 Visit Diagnosis Plan: Radiculopathy, lumbosacral regio n Discussion: Stable gabapentin ICD-9 : 724.4 ICD-10 : M54.17 03/27/2018 Visit Diagnosis Plan: Cervicalgia Discussion: Daily st naomiches Has finished PT and seeing chiropracter ICD-9 : 723.1 ICD-10 : M54.2 03/27/2018 Appointment: Alexandra Carroll WPtel: [address] [place], [place] [phone] US FOLLOW UP 03/27/2018 Visit Diagnosis Plan: Other intervertebral disc degene ration, lumbar region Discussion: Continue gabapentin at 300mg q HS Start daily low back stretches Recheck 1month ICD-9 : 722.52 ICD-10 : M51.36 02/23/2018 Visit Diagnosis Plan: Fracture of unspec ified part of left clavicle, subsequent encounter for fracture with routine healing Discussion: Healing Home exercises and strengthening ICD-9 : V54.11 ICD-10 : S42.002D 02/23/2018 Appointment: Alexandra Carroll WPtel: [address] [place] [address] US FOLLOW UP 02/23/2018 Patient Education: gabapentin- [employer] Coupon [phone] https://www.Co.Import/sampleInsideMaps/resources/getResource/61/[email or web address]-e7 Completed 02/23/2018 Visit Diagnosis Plan: Fracture of unspec ified part of left clavicle, subsequent encounter for fracture with routine healing Discussion: Hold on PT and do home stretches Trial of gabapentin Recheck 4 weeks ICD-9 : V54.11 ICD-10 : S42.002D 01/24/2018 Appointment: Alexandra Carroll WPtel: [address] [place], [place] [phone] US FOLLOW UP 01/24/2018 Visit Diagnosis Plan: Migraine, unspecif ied, not intractable, without status migrainosus Discussion: Toradol and phenergan given ICD-9 : 346.90 ICD-10 : G43.909 01/17/2018 Appointment: Alexandra Carroll WPtel: [address] [place], [place] [phone] [place] ACUTE ILLNESS 01/17/2018 Visit Diagnosis Plan: Hematuria, unspecified Discussio n: Check pelvic and renal US ICD-9 : 599.70 ICD-10 : R31.9 12/29/2017 Visit Diagnosis Plan: Other intervertebral disc degene ration, lumbar region Discussion: Referral to pain management for injection ICD-9 : 722.52 ICD-10 : M51.36 12/29/2017 Visit Diagnosis Plan: Retention of urine, unspecified Discussion: Seems to be related to back issues as comes on everytime back flares up so will do GERMAIN or SI joint injection ICD-9 : 788.20 ICD-10 : R33.9 12/29/2017 Appointment: [phone] [facility] 12/29/2017 Care Plan: US EXAM PELVIC COMPLETE LOINC : 83649-7 Pending 12/29/2017 Care Plan: ECHO EXAM OF ABDOMEN LOINC : 94510-2 Pending 12/29/2017 Care Plan: Referral Order SNOMED-CT : 30 [id number] Pending 12/29/2017 Visit Diagnosis Plan: Fracture of unspec ified part of left clavicle, subsequent encounter for fracture with routine healing Discussion: Start PT in another 7-14 days Off work for the rest of this week then may return to part-time work on 12/12/17 Fwup in 4 weeks ICD-9 : V54.11 ICD-10 : S42.002D 12/06/2017 Appointment: Alexandra Carroll [facility]el[phone] [facility] FO[facility] 12/06/2017 Patient Education: Patient Medication Summary Completed 12/06/2017 Visit Diagnosis Plan: Cellulitis of right upper limb D iscussion: much improved. patient voiced she is unable to tolerate the clindamycin. suggested to patient to decrease to one tab tid but patient did not agree to that. so keflex started with medrol pack due to rash and to assist with redness. instructed to continue with dressing changes bid. call ofice with any change or worsening symptoms or if worse by tomorrow. if over the weekend, go to ED with worsening symptoms. ICD-9 : 682.3 ICD-10 : L03.113 12/01/2017 Visit Diagnosis Plan: Allergy status to other antibiot ic agents status Discussion: medrol pack prescribed for allergic reaction. instructed to call office with new or worsening symptoms, otherwise, benadryl prn. ICD-9 : 995.27 ICD-10 : Z88.1 12/01/2017 Appointment: Vandana Crowe 504 [facility] FOLLOW UP 12/01/2017 Patient Education: Patient Medication Summary Completed 12/01/2017 Visit Diagnosis Plan: Allergy status to other antibiot ic agents status Discussion: kenalog/dexa given in office to treat allergic reaction of anbitiotic. instructed to take benadryl at hs if needed as well. ICD-9 : 995.27 ICD-10 : Z88.1 11/30/2017 Visit Diagnosis Plan: Cellulitis of right upper limb D iscussion: discussed with dr. carroll. continue with clindamycin with probiotics. ok to take zanatc OTC for relief. instructed to rtc tomorrow for recheck and if continues to worsen, notified patient that may need outpatient iv therapy or inpatient. she verbalized understanding. will assess how well steroid injection works. ICD-9 : 682.3 ICD-10 : L03.113 11/30/2017 Appointment: Vandana Crowe 504 [facility] 11/30/2017 Patient Education: Patient Medication Summary Completed 11/30/2017 Visit Diagnosis Plan: Cellulitis of right upper limb D iscussion: additional rocephin injection given in office. clindamycin prescribed to take as directed. continue with dressing changes bid. instructed to take probiotic at home to prevent gi upset. follow up tomorrow for wound recheck. instructed patient that if she continues to itch tonight, to take a benadryl oral. ICD-9 : 682.3 ICD-10 : L03.113 11/29/2017 Appointment: Vandana Crowe [address] [place], [place] [phone] FOLLOW UP 11/29/2017 Patient Education: Patient Medication Summary Completed 11/29/2017 Visit Diagnosis Plan: Cellulitis of right upper limb D iscussion: 1 gm rocephin given in office to cover infection. area was cleansed with wound cleanser and mupirocin applied. (patient allergic to sulfa so topical sulfadene was not applied). telfa was then placed on top and covered with kerlix. instructed patient to do the same at home bid. instructed to remove bandage prior to shower and then allow soap to run over open area. instructed to rtc tomorrow for additional injection due to severity. ICD-9 : 682.3 ICD-10 : L03.113 11/28/2017 Appointment: Vandana Crowe [address] [place], [place] [address] ACUTE ILLNESS 11/28/2017 Patient Education: Patient Medication Summary Completed 11/28/2017 Visit Diagnosis Plan: Other intervertebral disc degene ration, lumbar region Discussion: See Dr. Jasso to evluate MRI/X-rays and do injections as well as assess for ankylosing spondylitis as cause of pain and urinary retention vs spinal stenosis as cause ICD-9 : 722.52 ICD-10 : M51.36 11/17/2017 Visit Diagnosis Plan: Primary insomnia Discussion: Dis cussed changing xanax due to increased dementia risk and mother has alzheimer's ICD-9 : 780.52 ICD-10 : F51.01 11/17/2017 Visit Diagnosis Plan: Other retention of urine Discuss ion: Ongoing Had bladder stretched Did improve after steroid shot ICD-9 : 788.29 ICD-10 : R33.8 11/17/2017 Visit Diagnosis Plan: Other spondylosis, site unspecif ied Discussion: 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 Patient does clinically seem high risk for but she also has lumbar spinal stenosis Fwup after sees ortho spine surgeon ICD-9 : 721.90 ICD-10 : M47.899 11/17/2017 Appointment: Alexandra Carroll WPtel: [facility]6 [facility] MEDICATION REVIEW 11/17/2017 Patient Education: Patient Medication Summary Completed 11/17/2017 Care Plan: Referral Order SNOMED-CT : 30 [id number] Pending 11/17/2017 Patient Education: Patient Medication Summary Completed 10/12/2017 Care Plan: MRI LUMBAR SPINE W/O DYE LOIN C : 93086-5 Pending 10/12/2017 Care Plan: X-RAY EXAM L-S SPINE 2/3 VWS LOINC : 91630-7 Pending 10/11/2017 Visit Diagnosis Plan: Other retention of urine Discuss ion: discussed with patient about seeing urology due to recurrent symptoms but patient declined at this time. instructed patient to rtc in 2 days to reassess symptoms. instructed her to go to ED if she develops severe pain with retention of urine and she may require straight cath. patient verbalized understanding. antibiotics prescribed to cover infection that could be cause and steroids to cover inflmattion which could be the cause. ICD-9 : 788.29 ICD-10 : R33.8 10/10/2017 Visit Diagnosis Plan: Urinary tract infection, site no t specified Discussion: given rocephin injection in office as well as rx for macrobid. will send urine off for culture. instructed patient to increase fluid intake to prevent dehydration. ICD-9 : 599.0 ICD-10 : N39.0 10/10/2017 Visit Diagnosis Plan: Radiculopathy, lumbosacral regio n Discussion: 40 mg kenalog/4 mg dexa given in office as well as medrol pack to start tomorrow. [facility] with inversion table. instructed patient to go to ED immediately if she develops any incontinence with bowel or bladder. patient verbalized understanding. if no improvement, will need updated MRI and referral to surgeon. ICD-9 : 724.4 ICD-10 : M54.17 10/10/2017 Appointment: Vandana Crowe [address] [place] [address] ACUTE ILLNESS 10/10/2017 Patient Education: Patient Medication Summary Completed 10/10/2017 Appointment: Vandana Crowe [address] [place] [address] ACUTE ILLNESS 08/01/2017 Visit Diagnosis Plan: Other intervertebral disc degene ration, lumbar region Discussion: Core strengtheing and inversion table and if worsening will need updated MRI ICD-9 : 722.52 ICD-10 : M51.36 06/22/2017 Visit Diagnosis Plan: Encounter for [facility] adult medical examination without abnormal findings Discussion: Lab dis ussed Follow Up: 6 months ICD-9 : V70.0 ICD-10 : Z00.00 06/22/2017 Appointment: Alexandra Carroll WPtel: [phone] Annual Well Visit 06/22/2017 Patient Education: Patient Medication Summary Completed 06/22/2017 Patient Education: Patient Medication Summary Completed 06/16/2017 Care Plan: COMPREHEN [facility]ABOLIC PANEL [facility] : 19881-5 Pending 06/16/2017 Care Plan: ASSAY THYROID STIM HORMONE Pen ding 06/16/2017 Care Plan: ASSAY OF FREE THYROXINE Pendin g 06/16/2017 Care Plan: LIPID PANEL LOINC : 39551-4 Pending 06/16/2017 Care Plan: CBC Pending 06/16/2017 Visit Plan: Supportive care. Rest, Fluid s, Tylenol/Motrin prn fever or bodyaches. Notify if worsening symptoms. 03/28/2017 Visit Diagnosis Plan: URI, ACUTE Discussion: Likely fl u and is at end of illness so supportive care and monitor ICD-9 : 465.9 ICD-10 : J06.9 03/28/2017 Visit NOS Plan: Plan Notes: Supportive care. Rest, Fluids... 03/28/2017 Appointment: Alexandra Carrolltel: [address] [place] [address] ACUTE ILLNESS 03/28/2017 Patient Education: Patient Medication Summary Completed 03/28/2017 Visit Diagnosis Plan: Acute sinusitis, unspecified Dis cussion: cefdinir and medrol dose pack prescribed to be taken as directed. tylenol/ibuprofen as needed. educated on importance of taking singulair or zyrtec daily to prevent worsening symptoms. keep hydrated. ICD-9 : 461.9 ICD-10 : J01.90 02/16/2017 Appointment: Vandana Crowe [address] [place] [address] ACUTE ILLNESS 02/16/2017 Patient Education: Patient Medication Summary Completed 02/16/2017 Appointment: Alexandra Carroll WPtel: [address] [place] [address] US INJECTION 11/02/2016 Patient Education: Patient Medication Summary Completed 11/02/2016 Visit Diagnosis Plan: Pain in thoracic spine Discussio n: Increase flexeril to 10mg po BID Add Mobic 15mg po daily Towel stretch May see chiropractor to adjust ribs Notify if persists or worsening ICD-9 : 724.1 ICD-10 : M54.6 09/06/2016 Appointment: Alexandra Carroll WPtel: [address] [place] [address] ACUTE ILLNESS 09/06/2016 Patient Education: Patient Medication Summary Completed 09/06/2016 Visit Plan: Due to hx, ERx Cefdinir and Prednisone (discussed risks for both) Given bottle for nasal saline rinses Tylenol/Ibuprofen prn pain/fever Fluids/rest Discussed s/s of worsening, RTC if no improvement 08/16/2016 Appointment: Vidya Manuel WPtel: [address] [place] [address] ACUTE ILLNESS 08/16/2016 Patient Education: Patient Medication Summary Completed 08/16/2016 Visit Diagnosis Plan: Major depressive disorder, singl e episode, mild Discussion: Continue lower dose of buproprion for at least 2more months and if doing okay then can DC buproprion and see how does Follow Up: 4 months ICD-9 : 311 ICD-10 : F32.0 07/19/2016 Visit Diagnosis Plan: Cramp and spasm Discussion: Rest art flexeril and see if helps ICD-9 : 729.82 ICD-10 : R25.2 07/19/2016 Visit Diagnosis Plan: Primary insomnia Discussion: Con andrew xanax at current dose--patient has been trying to decrease dose ICD-9 : 780.52 ICD-10 : F51.01 07/19/2016 Appointment: Alexandra Carroll WPtel: [address] [place], [place] [phone] 07/15 confirmed`sl FOLLOW UP 07/19/2016 Patient Education: Patient Medication Summary Completed 07/19/2016 Visit Diagnosis Plan: Allergic rhinitis due to pollen Discussion: Continue current regimen ICD-9 : 477.9 ICD-10 : J30.1 07/06/2016 Visit Diagnosis Plan: Obstructive sleep apnea (adult) (pediatric) Discussion: Adjust CPAP settings to see if helps fatigue and HAS--will give 4-6 week trial of increasing settings and if still with PLATA will consider CT scan of head/sinuses ICD-9 : 327.23 ICD-10 : G47.33 07/06/2016 Appointment: Alexandra Carroll WPtel: [facility] 07/05 confirmed-sp FOLLOW UP 07/06/2016 Patient Education: Patient Medication Summary Completed 07/06/2016 Visit Plan: Saline nasal flushes prn. Ty lenol/Motrin prn headache. Notify if persists/symptoms worsening. 06/15/2016 Visit Diagnosis Plan: Acute recurrent sinusitis, unspe cified Discussion: Omnicef for 3 weeks Take daily probiotic while on ICD-9 : 461.9 ICD-10 : J01.91 06/15/2016 Visit NOS Plan: Plan Notes: Saline nasal flu shes prn. Tyle... 06/15/2016 Visit Diagnosis Plan: Allergic rhinitis due to pollen Discussion: Kenalog/Dexamethasone Continue Claritin-D Add singulair Recheck 3 weeks ICD-9 : 477.9 ICD-10 : J30.1 06/15/2016 Appointment: Alexandra Carroll WPtel[facility] 06/14 lm ~sl ACUTE ILLNESS 06/15/2016 Patient Education: Patient Medication Summary Completed 06/15/2016 Visit Diagnosis Plan: Migraine, unspecif ied, not intractable, without status migrainosus Discussion: Injection as above Drink ple nty of water No driving x 6 hours Rest No OTC nsaids today Follow up PRN Refill called of claritin-d ICD-9 : 346.90 ICD-10 : G43.909 04/09/2016 Appointment[facility] [facility] [place] [facility] 04/09/2016 Patient Education: Patient Medication Summary Completed 04/09/2016 Visit Diagnosis Plan: Other fatigue Discussion: Check TSH, Free T4, B12, CBC Discussed not using CPAP the full night may be part of fatigue ICD-9 : 780.79 ICD-10 : R53.83 03/17/2016 Visit Diagnosis Plan: Major depressive disorder, singl e episode, mild Discussion: Continue current meds ICD-9 : 311 ICD-10 : F32.0 03/17/2016 Visit Diagnosis Plan: Hypothyroidism, unspecified Disc ussion: Check TSH and free T4 ICD-9 : 244.9 ICD-10 : E03.9 03/17/2016 Visit Diagnosis Plan: Mixed hyperlipidemia Discussion: Check fasting lipids ICD-9 : 272.4 ICD-10 : E78.2 03/17/2016 Appointment: Alexandra Carroll WPtel: [address] [place], [place] [id number] 03/16 nvm~sl 03/17 confirmed`sl FOLLOW UP 0 03/17/2016 Patient Education: Patient Medication Summary Completed 03/17/2016 Appointment: Alexandra Carroll WPtel: [address] [place], [place] [id number] [place] 03/11 lm~sl 03/15lm `sl 03/15 confirmed`sl FOLLOW U P 03/15/2016 Visit Plan: Discussed labeled indication s for benzos. Since xanax is not labeled for sleep and she has never tried anything else, encouraged her to trial restoril(another benzo) since it is labeled for sleep. She agrees with this trial. Rx called to [facility] after cost comparison which is nearly the same robert. If working well, continue the q4srpif office visits. Call if not working well, and will restart xanax at for sleep. 11/13/2015 Appointment: [facility] [facility] 11/11 confirmed~sl FOLLOW UP 11/13/2015 Patient Education: Patient Medication Summary Completed 11/13/2015 Appointment: Alexandra Carroll WPtel: [address] [place], [place] [id number] Suture Removal 06/23/2015 Patient Education: Patient Medication Summary Completed 06/23/2015 Visit Plan: Removal of lesion above usin g 3-0 punch biopsy Return in 10 days for suture removal 06/12/2015 Appointment: Alexandra Carroll WPtel: [address] [place], [place] [id number] [place] 06/10 lm ~sl ACUTE ILLNESS 06/12/2015 Patient Education: Patient Medication Summary Completed 06/12/2015 Referral: Soy Garcia WPtel: [address] [id number] [place] Schedule patient around lunch time and 3 weeks from 04/22/2015 ~sl Spoke with Kiesha at [facility] and 04/24/15 and scheduled the patient ~sl 04/24/15 Patient is informed~sl 06/03 Patient canceled the appointment ~ sl Patient did not show up for scheduled appointment-sp Appoint ment Requested 05/21/2015 Appointment: Alexandra Carroll WPtel: [address] [place], [place] [id number] UA 05/05/2015 Patient Education: Patient Medication Summary Completed 05/05/2015 Visit Plan: Starts PT today Schedule wit h Dr. Garcia for epidural CT abdomen/pelvis results discussed Sees [facility] in April and will get checked then 04/22/2015 Appointment: Alexandra Carroll WPtel: [address] [place] [address] 04/21 confirmed~lb ACUTE ILLNESS 04/22/2015 Patient Education: Patient Medication Summary Completed 04/22/2015 Referral: Lincoln Hernandez WPtel: [address] [place] [address] Referral Initiated 04/10/2015 Patient Education: Patient Medication Summary Completed 04/09/2015 Visit Plan: Start with lumosacral spine x-ray--will likely need MRI of L/S spine x-ray Needs urology--has had to have bladder stretched in past Tivorbex 03/24/2015 Appointment: Alexandra Carroll WPtel: [address] [place], [place] [id number] 03/21/15 appt confirmed cn ACUTE ILLNESS 03/24 Patient Education: Patient Medication Summary Completed 03/24/2015 Visit Plan: Saline nasal flushes prn. Ty lenol/Motrin prn headache. Notify if persists/symptoms worsening. Cefuroxime to cover both sinuses and UTI Culture urine Check lab 02/27/2015 Appointment: Alexandra Carroll WPtel: [address] [place], [place] [phone] 02/26/15 vm to confirm and need new insu meri on file is inactive cn....02/27/15 appt confirmed cn ACUTE ILLNESS 015 Patient Education: Patient Medication Summary Completed 02/27/2015 Visit Plan: Lab discussed Stop simvastat in Check lipids in 6mos Continue all other meds at current dose Had Pap and Mammo 3 weeks ago 06/13/2014 Appointment: Alexandra Carroll WPtel: [address] [place] [address] Annual Well Visit 06/13/2014 Patient Education: Patient Medication Summary Completed 06/13/2014 Appointment: Shalini Walters WPtel: [address] [place] [address] ACUTE ILLNESS 04/18/2014 Patient Education: Patient Medication Summary Completed 04/18/2014 Visit Plan: Check lab in May then fwup Can try decreasing xanax to 1mg q HS with melatonin 5-10mg q HS 12/05/2013 Appointment: Alexandra Carroll WPtel: [address] [place] [address] 12/04 FOLLOW UP 12/05/2013 Patient Education: Patient Medication Summary Completed 12/05/2013 Appointment: Alexandra Carroll WPtel: [address] [place] [address] FOLLOW UP 06/05/2013 Patient Education: Patient Medication Summary Completed 06/05/2013 Appointment: Alexandra Carroll WPtel: [address] [place] [address] FOLLOW UP 05/22/2013 Patient Education: Patient Medication Summary Completed 05/22/2013 Visit Plan: Zovirax for 2wks Notify if p ain worsens or if persists 04/05/2013 Appointment: Alexandra Carroll WPtel: [address] [place] [address] ACUTE ILLNESS 04/05/2013 Patient Education: Patient Medication Summary Completed 04/05/2013 Visit Plan: Keep Wellbutrin at current d ose Pt did see for counseling 03/26/2013 Appointment: Alexandra Carroll WPtel: [address] [place] [address] ACUTE ILLNESS 03/26/2013 Patient Education: Patient Medication Summary Completed 03/26/2013 Visit Plan: Continue citalopram at curre nt dose Increase xanax to 1-2mg q HS for sleep Add Wellbutrin Sr 100mg q AM Start Counseling 03/06/2013 Appointment: Alexandra Carroll WPtel: [address] [place] [address] ACUTE ILLNESS 03/06/2013 Patient Education: Patient Medication Summary Completed 03/06/2013 Appointment: Alexandra Carroll WPtel: [address] [place] [address] ACUTE ILLNESS 11/29/2012 Patient Education: Patient Medication Summary Completed 11/29/2012 Appointment: Alexandra Carroll WPtel: [address] [place] [address] ACUTE ILLNESS 09/26/2012 Patient Education: Patient Medication Summary Completed 09/26/2012 Appointment: Alexandra Carroll WPtel: [address] [place] [address] ACUTE ILLNESS 07/11/2012 Patient Education: Patient Medication Summary Completed 07/11/2012 Appointment: Alexandra Carroll WPtel: [address] [place] [address] LAB 02/17/2012 Patient Education: Patient Medication Summary Completed 02/17/2012 Visit Plan: Check fasting lab Start annie y ca with Vit D Cont CPAP Mammo up-to-date Hemoccult card given 02/02/2012 Appointment: Alexandra Carroll WPtel: [address] [place] [address] PHYSICAL 02/02/2012 Patient Education: Patient Medication Summary Completed 02/02/2012 Appointment: Alexandra Carroll WPtel: [address] [place] [address] UA 08/27/2011 Patient Education: Patient Medication Summary Completed 08/27/2011 Visit Plan: Levaquin and Diflucan for 1w k Then cipro QOD for prophylaxis 08/17/2011 Appointment: Alexandra Carroll WPtel: [address] [place] [address] FOLLOW UP 08/17/2011 Patient Education: Patient Medication Summary Completed 08/17/2011 Appointment: Alexandra Carroll WPtel: [address] [place] [address] UA 12/28/2010 Patient Education: Patient Medication Summary Completed 12/28/2010 Appointment: Alexandra Carroll WPtel: [address] [place] [address] 11/09/2010 Patient Education: Patient Medication Summary Completed 11/09/2010 Appointment: Alexandra Carroll WPtel: [address] [place] [address] UA 10/29/2010 Patient Education: Patient Medication Summary Completed 10/29/2010 Appointment: Steph Bowen WPtel: [address] [place] [address] ACUTE ILLNESS 10/14/2010 Patient Education: Patient Medication Summary Completed 10/14/2010 Referral: Florian Baig WPtel: [facility] [place] [address] [id number] [place] Referral Initiated Referral: Paulo Albert WPtel: [id number] [place] Referral Appointment Requested Referral: Luis Enrique Jasso WPtel: [facility] [address], [facility] 1 [id number] [place] Referral Appointment Requested Referral: Florian Baig WPtel: [facility] [address] 1 [id number] [place] Referral Appointment Requested Referral: Caleb Glaser WPtel: [address] [id number] [place] Referral Appointment Requested Referral: Florian Baig WPtel: [facility] [address], [facility] 1 [id number] Referral Initiated Referral: Florian Baig WPtel: [facility] [address], [address] Referral Appointment Requested Instructions Comment . Supportive care. Rest, Fluids, Tyleno l/Motrin prn fever or bodyaches. Notify if worsening symptoms. . Due to hx, ERx Cefdinir and Prednisone (discussed risks for both) Given bottle for nasal saline rinses Tylenol/Ibuprofen prn pain/fever Fluids/rest Discussed s/s of worsening, RTC if no improvement . Saline nasal flushes prn. Tylenol/Motr in prn headache. Notify if persists/symptoms worsening. . Discussed labeled indications for tr os. Since xanax is not labeled for sleep and she has never tried anything else, encouraged her to trial restoril(another benzo) since it is labeled for sleep. She agrees with this trial. Rx called to [facility] after cost comparison which is nearly the same robert. If working well, continue the [id number] office visits. Call if not working well, and will restart xanax at HS for sleep. . Removal of lesion above using 3-0 punc h biopsy Return in 10 days for suture removal . Starts PT today Schedule with Dr. Garcia for epidural CT abdomen/pelvis results discussed Sees [facility] in April and will get checked then . Start with lumosacral spine x-ray--jazzy l likely need MRI of L/S spine x-ray Needs urology--has had to have bladder stretched in past Tivorbex . Saline nasal flushes prn. Tylenol/Motr in prn headache. Notify if persists/symptoms worsening. Cefuroxime to cover both sinuses and UTI Culture urine Check lab . Lab discussed Stop simvastatin Check lipids in 6mos Continue all other meds at current dose Had Pap and Mammo 3 weeks ago . Check lab in May then fwup Can try decreasing xanax to 1mg q HS with melatonin 5-10mg q HS . Zovirax for 2wks Notify if pain worsens or if persists . Keep Wellbutrin at current dose Pt did see front maker [employer] for counseling . Continue citalopram at current dose Increase xanax to 1-2mg q HS for sleep Add Wellbutrin Sr 100mg q AM Start Counseling . Check fasting lab Start daily ca with Vit D Cont CPAP Mammo up-to-date Hemoccult card given . Levaquin and Diflucan for 1wk Then cipro QOD for prophylaxis Medical Equipment No Medical Equipment data Health Concerns Section Health Concerns data not found Goals Section Goals data not found Interventions Section Interventions data not found Health Status Evaluations/Outcomes Section Health Status Evaluations/Outcomes data not found Advance Directives No Advance Directive data
--- OUTSIDE RECORDS SUMMARY | 2019-09-02 00:09 | XMS REPORT | CCD ---
Author Author Ilda Bowen APRN Organization [facility] Address [address] [place] [address] Phone Care Team Providers Care Nurse Practitioner Name Role Phone Alexandra Carroll D.O., PP Unavailable CCM Unavailable Summary Purpose Interface Exchange Insurance Providers Payer name Policy type / Coverage type Covered green party ID Effective Begin Date Effective End Date WPS MEDICARE PART B [place] Part B [id number] 2019 Unknown [employer] [place] Medicare Part B [id number] Unknown Family History Family History data not found Social History Social History Element Codes Description Effective Dates Tobacco history SNOMED CT: 826689216 Nonsmoker 10/14/2010 Allergies, Adverse Reactions, Alerts Substance Reaction Codes Entered Date Inactivated Date Status MORPHINE SULFATE RxNorm: 4919750 10/14/2010 No Inactive Da te Active CEPHALOSPORINS [...] Fill Instructions Macrobid 100 mg capsule RxNorm: 471133 1 Capsule(s) Oral two ti mes a day 07/30/2019 08/09/2019 Inactive Macrobid 100 mg capsule RxNorm: 745752 1 Capsule(s) Oral two ti mes a day 07/30/2019 07/29/2019 Inactive cyclobenzaprine 10 mg tablet RxNorm: 156024 Tablet(s) Oral as neede d 07/17/2019 No Stop Date Active Cipro 500 mg tablet RxNorm: 374430 1 Tablet(s) Oral two times a day 07/17/2019 07/22/2019 Inactive Xanax 1 mg tablet RxNorm: 782235 1-2 Tablet(s) Oral e very night at bedtime as needed for sleep 07/10/2019 08/08/2019 Inactive Generic For:LAVELLE AX 1MG 10/11/2016 11:15:13 AM prednisone 20 mg tablet RxNorm: 756962 1 Tablet(s) Oral two harlan es a day 06/26/2019 07/03/2019 Inactive Amabelz 1 mg-0.5 mg tablet RxNorm: 7841067 1 Tablet(s) Oral QD 05/3007/17/2019 Inactive Trazadone 150 mg Tablet RxNorm: 1 Tablet(s) Oral every n ight at bedtime 05/14/2019 No Stop Date Active Levaquin 500 mg tablet RxNorm: 761753 1 Tablet(s) Oral QD 05/14/2019 05/21/2019 Inactive Xanax 1 mg tablet RxNorm: 115752 1-2 Tablet(s) Oral e very night at bedtime as needed for sleep 05/03/2019 06/01/2019 Inactive Generic For:LAVELLE AX 1MG 10/11/2016 11:15:13 AM cyclobenzaprine 10 mg tablet RxNorm: 172985 1 Tablet(s) Oral three times a day as needed for muscle spasm 02/12/2019 02/12/2019 Inactive Xanax 1 mg tablet RxNorm: 054812 1-2 Tablet(s) Oral e very night at bedtime as needed for sleep 02/09/2019 03/10/2019 Inactive Generic For:LAVELLE AX 1MG 10/11/2016 11:15:13 AM Xanax 1 mg tablet RxNorm: 062167 1-2 Tablet(s) Oral e very night at bedtime as needed for sleep 01/22/2019 02/08/2019 Inactive Generic For:LAVELLE AX 1MG 10/11/2016 11:15:13 AM Celexa 40 mg tablet RxNorm: 574440 1 Tablet(s) Oral QD 01/17/2019 Active - First Attempt Ref: [id number] Xanax 1 mg tablet RxNorm: 451337 1 Tablet(s) Oral every night a t bedtime 01/08/2019 01/21/2019 Inactive levothyroxine 88 mcg tablet RxNorm: 080604 TAKE 1 TABLET BY NNIA TH DAILY 12/19/2018 06/16/2019 Inactive - First Attempt Ref: [id number] Xanax 1 mg tablet RxNorm: 808781 1 Tablet(s) Oral every night a t bedtime 12/06/2018 01/05/2019 Inactive Singulair 10 mg tablet RxNorm: 961961 1 Tablet(s) Oral every ni ght at bedtime 11/23/2018 11/17/2019 Active - First Attempt Ref: [id number] Celexa 40 mg tablet RxNorm: 158939 1 Tablet(s) Oral 11/23/20182018 Inactive - First Attempt Ref: [id number] cyclobenzaprine 10 mg tablet RxNorm: 702981 1 Tablet(s) Oral three times a day as needed for muscle spasm 11/23/2018 02/11/2019 Inactive Xanax 1 mg tablet RxNorm: 314612 1 Tablet(s) PO QHS 11/06/20182018 Inactive Xanax 1 mg tablet RxNorm: 910879 1 Tablet(s) PO QHS 09/26/20182018 Inactive Singulair 10 mg tablet RxNorm: 598992 TAKE 1 TABLET BY MOUTH EVERY NIGHT AT BEDTIME 08/16/2018 11/22/2018 Inactive - First Attempt Ref: [id number] Xanax 1 mg tablet RxNorm: 896079 1 Tablet(s) PO QHS 08/01/20182018 Inactive levothyroxine 88 mcg tablet RxNorm: 209559 TAKE 1 TABLET BY NINA TH DAILY 07/31/2018 12/18/2018 Inactive - First Attempt Ref: [id number] Celexa 40 mg tablet RxNorm: 075099 TAKE 1 TABLET BY MOUTH DAILY 04/201811/22/2018 Inactive - First Attempt Ref: [id number] 54 bupropion HCl SR 100 mg tablet,12 hr sustained-release RxNor m: 883110 1 Tablet(s) PO BID 07/12/2018 07/06/2019 Inactive - Ref: [id number] 7 Claritin-D 24 Hour 10 mg-240 mg tablet,extended release RxNo rm: 2982202 1 Tablet(s) PO QD 06/29/2018 2018 Inactive Claritin-D 24 Hour 10 mg-240 mg tablet,extended release RxNo rm: 2234514 1 Tablet(s) PO QD 06/29/2018 2018 Inactive Xanax 1 mg tablet RxNorm: 280648 1-2 Tablet(s) PO QHS as needed for sleep 05/26/2018 06/23/2018 Inactive Generic For:XANAX 1M G 10/11/2016 11:15:13 AM Xanax 1 mg tablet RxNorm: 135017 1-2 Tablet(s) PO QHS as needed for sleep 03/28/2018 05/25/2018 Inactive Generic For:XANAX 1M G 10/11/2016 11:15:13 AM Macrobid 100 mg capsule RxNorm: 056543 1 Capsule(s) PO BID 03/27/1903/31/2018 Inactive gabapentin 300 mg capsule RxNorm: 133129 1 Capsule(s) PO QHS 201703/26/2018 Inactive Claritin-D 24 Hour 10 mg-240 mg tablet,extended release RxNo rm: 5521046 1 Tablet(s) PO QD 01/26/2018 02/24/2018 Inactive gabapentin 100 mg capsule RxNorm: 703097 1 Capsule(s) P O QHS for 1 week then 2 po q HS for 2 weeks then 3 po q HS 01/24/2018 03/26/2018 Inactive Xanax 1 mg tablet RxNorm: 622284 1-2 Tablet(s) PO QHS as needed for sleep 01/24/2018 03/24/2018 Inactive Generic For:XANAX 1M G 10/11/2016 11:15:13 AM prednisone 20 mg tablet RxNorm: 234764 1 Tablet(s) PO T ID for 3 days then 1 po BID for 3 days then one daily for 3 days 12/29/2017 03/26/2018 Inactiv e prednisone 20 mg tablet RxNorm: 792264 3 Tablet(s) PO T ID for 3 days then 1 po BID for 3 days then one daily for 3 days 12/29/2017 12/29/2017 Inactiv e Macrobid 100 mg capsule RxNorm: 722655 1 Capsule(s) PO BID 12/30/19 18 01/02/2018 Inactive Xanax 1 mg tablet RxNorm: 017746 1-2 Tablet(s) PO QHS as needed for sleep 12/28/2017 01/23/2018 Inactive Generic For:XANAX 1M G 10/11/2016 11:15:13 AM Medrol (Walter) 4 mg tablets in a dose pack RxNorm: 947853 Tablet(s) PO take as directed 12/01/2017 03/26/2018 Inactive Keflex 750 mg capsule RxNorm: 111501 1 Capsule(s) PO BID 12/01/2017 1 Inactive clindamycin HCl 300 mg capsule RxNorm: 394527 2 Capsule(s) PO TID 1 12/08/2017 Inactive Xanax 1 mg tablet RxNorm: 139176 1-2 Tablet(s) PO QHS as needed for sleep 11/28/2017 12/27/2017 Inactive Generic For:XANAX 1M G 10/11/2016 11:15:13 AM mupirocin 2 % topical ointment RxNorm: 737929 1 Application OTIC BI D 11/28/2017 08/09/2018 Inactive Xanax 1 mg tablet RxNorm: 787211 1-2 Tablet(s) PO QHS as needed for sleep 10/27/2017 11/25/2017 Inactive Generic For:XANAX 1M G 10/11/2016 11:15:13 AM Macrobid 100 mg capsule RxNorm: 930481 1 Capsule(s) PO BID 10/11/19 18 10/16/2017 Inactive Medrol (Walter) 4 mg tablets in a dose pack RxNorm: 111581 Tablet(s) PO take as directed 10/10/2017 11/16/2017 Inactive Xanax 1 mg tablet RxNorm: 957961 1-2 Tablet(s) PO QHS as needed for sleep 09/28/2017 10/26/2017 Inactive Generic For:XANAX 1M G 10/11/2016 11:15:13 AM Xanax 1 mg tablet RxNorm: 893682 1-2 Tablet(s) PO QHS as needed for sleep 08/30/2017 09/27/2017 Inactive Generic For:XANAX 1M G 10/11/2016 11:15:13 AM Xanax 1 mg tablet RxNorm: 750907 1-2 Tablet(s) PO QHS as needed for sleep 08/30/2017 08/29/2017 Inactive Generic For:XANAX 1M G 10/11/2016 11:15:13 AM Xanax 1 mg tablet RxNorm: 316862 1-2 Tablet(s) PO QHS as needed for sleep 08/01/2017 08/29/2017 Inactive Generic For:XANAX 1M G 10/11/2016 11:15:13 AM Xanax 1 mg tablet RxNorm: 425743 1-2 Tablet(s) PO QHS as needed for sleep 06/29/2017 2017 Inactive Generic For:XANAX 1M G 10/11/2016 11:15:13 AM Claritin-D 24 Hour 10 mg-240 mg tablet,extended release RxNo rm: 8125131 1 Tablet(s) PO QD 06/29/2017 2017 Inactive levothyroxine 88 mcg tablet RxNorm: 363411 1 Tablet(s) PO QD 201709/10/2017 Inactive Xanax 1 mg tablet RxNorm: 504421 1-2 Tablet(s) PO QHS as needed for sleep 05/26/2017 06/28/2017 Inactive Generic For:XANAX 1M G 10/11/2016 11:15:13 AM Claritin-D 24 Hour 10 mg-240 mg tablet,extended release RxNo rm: 9398699 1 Tablet(s) PO QD 05/26/2017 06/24/2017 Inactive bupropion HCl SR 100 mg tablet,12 hr sustained-release RxNor m: 716121 Tablet(s) Take 1 tablet by mouth two times daily 04/06/2017 12/31/2017 Inactive - Ref: [id number] Xanax 1 mg tablet RxNorm: 250994 1-2 Tablet(s) PO QHS as needed for sleep 03/24/2017 05/22/2017 Inactive Generic For:XANAX 1M G 10/11/2016 11:15:13 AM Medrol (Walter) 4 mg tablets in a dose pack RxNorm: 676155 Tablet(s) P O 02/16/2017 03/27/2017 Inactive Xanax 1 mg tablet RxNorm: 404433 Tablet(s) TAKE ONE T O TWO TABLETS BY MOUTH AT BEDTIME NEEDED 02/16/2017 03/17/2017 Inactive Generic For:XA NAX 1MG 10/11/2016 11:15:13 AM Claritin-D 24 Hour 10 mg-240 mg tablet,extended release RxNo rm: 3590185 1 Tablet(s) PO QD 02/16/2017 04/16/2017 Inactive cefdinir 300 mg capsule RxNorm: 396135 2 Capsule(s) PO QD 02/16/2017 02/25/2017 Inactive Celexa 40 mg tablet RxNorm: 014787 Tablet(s) Take 1 tablet by m outh daily 12/23/2016 09/18/2017 Inactive - Ref: [id number] Xanax 1 mg tablet RxNorm: 785049 Tablet(s) TAKE ONE T O TWO TABLETS BY MOUTH AT BEDTIME NEEDED 12/16/2016 01/14/2017 Inactive Generic For:XA NAX 1MG 10/11/2016 11:15:13 AM Xanax 1 mg tablet RxNorm: 282480 Tablet(s) TAKE ONE T O TWO TABLETS BY MOUTH AT BEDTIME NEEDED 11/18/2016 12/15/2016 Inactive Generic For:XA NAX 1MG 10/11/2016 11:15:13 AM Xanax 1 mg tablet RxNorm: 423030 TAKE ONE TO TWO TABL ETS BY MOUTH AT BEDTIME NEEDED 10/11/2016 11/17/2016 Inactive Generic For:XANA X 1MG 10/11/2016 11:15:13 AM Mobic 15 mg tablet RxNorm: 886668 1 Tablet(s) PO QD 09/06/20162016 Inactive Claritin-D 24 Hour 10 mg-240 mg tablet,extended release RxNo rm: 9324475 1 Tablet(s) PO QD 09/02/2016 11/30/2016 Inactive prednisone 20 mg tablet RxNorm: 510479 1 Tablet(s) PO T ID for 3 days then 1 po BID for 3 days then one daily for 3 days 08/16/2016 03/27/2017 Inactiv e cefdinir 300 mg capsule RxNorm: 914015 2 Capsule(s) PO QD 08/16/2016 09/05/2016 Inactive Xanax 1 mg tablet RxNorm: 765884 TAKE ONE TO TWO TABL ETS BY MOUTH AT BEDTIME NEEDED 08/05/2016 10/11/2016 Inactive Generic For:XANA X 1MG 08/05/2016 2:27:03 PM08/04/2016 4:15:22 PM Singulair 10 mg tablet RxNorm: 522259 1 Tablet(s) PO QHS 07/06/2016 0 09/03/2016 Inactive prednisone 20 mg tablet RxNorm: 274177 1 Tablet(s) PO T ID for 3 days then 1 po BID for 3 days then one daily for 3 days 06/15/2016 07/05/2016 Inactiv e Singulair 10 mg tablet RxNorm: 036905 1 Tablet(s) PO QHS 06/15/2016 0 07/05/2016 Inactive cefdinir 300 mg capsule RxNorm: 001467 2 Capsule(s) PO QD 06/15/2016 07/05/2016 Inactive Xanax 1 mg tablet RxNorm: 844673 1-2 Tablet(s) PO QHS 05/21/201610/2016 Inactive Claritin-D 24 Hour 10 mg-240 mg tablet,extended release RxNo rm: 9679432 1 Tablet(s) PO QD 04/09/2016 07/07/2016 Inactive Xanax 1 mg tablet RxNorm: 733863 1-2 Tablet(s) PO QHS 03/23/201604/29 Inactive levothyroxine 88 mcg tablet RxNorm: 617290 1 Tablet(s) PO QD 201606/13/2017 Inactive bupropion HCl SR 100 mg tablet,sustained-release RxNorm: 993 503 Take 1 tablet by mouth two times daily 03/15/2016 12/09/2016 Inactive - Ref: 20 [id number] Celexa 40 mg tablet RxNorm: 275466 Take 1 tablet by mouth daily 12/23/2016 Inactive - Ref: [id number] Xanax 1 mg tablet RxNorm: 561362 1-2 Tablet(s) PO QHS 02/17/201603/01 Inactive levothyroxine 88 mcg tablet RxNorm: 581817 1 Tablet(s) PO QD 201502/22/2016 Inactive Xanax 1 mg tablet RxNorm: 256522 1-2 Tablet(s) PO QHS 11/25/201511/29 Inactive levothyroxine 88 mcg tablet RxNorm: 070320 1 Tablet(s) PO QD 201511/24/2015 Inactive temazepam 30 mg capsule RxNorm: 125238 1 Capsule(s) PO QHS 11/13/19 16 11/24/2015 Inactive Xanax 1 mg tablet RxNorm: 278304 1-2 Tablet(s) PO QHS 09/15/201510/29 Inactive Celexa 40 mg tablet RxNorm: 410118 1 Tablet(s) PO QD 1 Tablet(s ) PO QD 09/10/2015 09/16/2015 Inactive bupropion HCl SR 100 mg tablet,sustained-release RxNorm: 993 503 1 Tablet(s) PO BID 09/10/2015 09/23/2015 Inactive Xanax 1 mg tablet RxNorm: 656102 1-2 Tablet(s) PO QHS 09/10/201508/28 Inactive Xanax 1 mg tablet RxNorm: 815611 1-2 Tablet(s) PO QHS 08/11/201508/28 Inactive cyclobenzaprine 10 mg tablet RxNorm: 682630 1 Tablet(s) PO TID prn spasm 07/09/2015 11/23/2018 Inactive Celexa 40 mg tablet RxNorm: 539829 1 Tablet(s) PO QD 06/06/201508/03 Inactive Xanax 1 mg tablet RxNorm: 188050 1-2 Tablet(s) PO QHS 06/04/201505/2015 Inactive levothyroxine 88 mcg tablet RxNorm: 730246 1 Tablet(s) PO QD 201511/23/2015 Inactive Ceftin 500 mg tablet RxNorm: 003627 1 Tablet(s) PO BID 05/05/2015 Inactive Ceftin 500 mg tablet RxNorm: 384617 1 Tablet(s) PO BID 05/05/201507/2015 Inactive meloxicam 15 mg tablet RxNorm: 352595 1 Tablet(s) PO QD 04/16/2015 Inactive meloxicam 15 mg tablet RxNorm: 025129 1 Tablet(s) PO QD 04/16/2015 Inactive diclofenac sodium 75 mg tablet,delayed release RxNorm: 27268 6 1 Tablet(s) PO BID 04/04/2015 04/15/2015 Inactive diclofenac sodium 75 mg tablet,delayed release RxNorm: 96232 6 1 Tablet(s) PO BID 04/04/2015 04/03/2015 Inactive Tivorbex 40 mg capsule RxNorm: 8168477 1 Capsule(s) PO TID 03/24/19 16 04/02/2015 Inactive bupropion HCl SR 100 mg tablet,sustained-release RxNorm: 993 503 1 Tablet(s) PO BID 03/11/2015 09/06/2015 Inactive cyclobenzaprine 10 mg tablet RxNorm: 432750 1 Tablet(s) PO TID prn spasm 03/11/2015 07/08/2015 Inactive levothyroxine 88 mcg tablet RxNorm: 576046 1 Tablet(s) PO QD 201405/27/2015 Inactive Claritin-D 24 Hour 10 mg-240 mg tablet,extended release RxNo rm: 9566559 1 Tablet(s) PO QD 02/27/2015 05/27/2015 Inactive cefuroxime axetil 500 mg tablet RxNorm: 835735 1 Tablet(s) PO BID 1 03/12/2015 Inactive Celexa 40 mg tablet RxNorm: 337644 1 Tablet(s) PO QD 02/05/201504/05 Inactive levothyroxine 75 mcg tablet RxNorm: 685320 1 Tablet(s) PO QD 201402/26/2015 Inactive Celexa 40 mg tablet RxNorm: 737615 1 Tablet(s) PO QD 10/09/201402/04 Inactive Activella 1 mg-0.5 mg tablet RxNorm: 6087987 1 Tablet(s) PO QD 08/2802/26/2015 Inactive bupropion HCl SR 100 mg tablet,sustained-release RxNorm: 993 503 1 Tablet(s) PO BID 09/12/2014 03/10/2015 Inactive levothyroxine 75 mcg tablet RxNorm: 281183 1 Tablet(s) PO QD 201412/09/2014 Inactive levothyroxine 75 mcg tablet RxNorm: 744614 1 Tablet(s) PO QD 201409/11/2014 Inactive Celexa 40 mg tablet RxNorm: 095633 1 Tablet(s) PO QD 08/12/201410/08 Inactive Xanax 1 mg tablet RxNorm: 430965 1-2 Tablet(s) PO QHS 08/12/201409/28 Inactive Claritin-D 24 Hour 10 mg-240 mg tablet,extended release RxNo rm: 4621035 1 Tablet(s) PO QD 06/13/2014 09/10/2014 Inactive cyclobenzaprine 10 mg tablet RxNorm: 494741 1 Tablet(s) PO TID prn spasm 06/12/2014 02/26/2015 Inactive Xanax 1 mg tablet RxNorm: 034182 1-2 Tablet(s) PO QHS 05/09/201406/28 Inactive levothyroxine 75 mcg tablet RxNorm: 010834 1 Tablet(s) PO QD 201407/08/2014 Inactive cephalexin 500 mg capsule RxNorm: 686277 1 Capsule(s) PO QOD 201402/26/2015 Inactive simvastatin 10 mg tablet RxNorm: 724007 1 Tablet(s) PO QHS 04/10/19 15 06/12/2014 Inactive Xanax 1 mg tablet RxNorm: 780565 1-2 Tablet(s) PO QHS 04/10/201404/28 Inactive levothyroxine 75 mcg tablet RxNorm: 066606 1 Tablet(s) PO QD 201404/09/2014 Inactive levothyroxine 75 mcg capsule RxNorm: 773731 1 Capsule(s) PO QD 03/3104/10/2014 Inactive Activella 1 mg-0.5 mg tablet RxNorm: 1448659 1 Tablet(s) PO QD 03/0109/11/2014 Inactive bupropion HCl SR 100 mg tablet,sustained-release RxNorm: 993 503 1 Tablet(s) PO BID 03/04/2014 08/30/2014 Inactive Activella 1 mg-0.5 mg tablet RxNorm: 3873587 1 Tablet(s) PO QD 01/2803/18/2014 Inactive levothyroxine 75 mcg capsule RxNorm: 822020 1 Capsule(s) PO QD 12/2904/08/2014 Inactive simvastatin 10 mg tablet RxNorm: 604255 1 Tablet(s) PO QHS 01/10/20 14 04/08/2014 Inactive cyclobenzaprine 10 mg tablet RxNorm: 879406 1 Tablet(s) PO TID prn spasm 01/09/2014 04/08/2014 Inactive Cipro 500 mg tablet RxNorm: 282393 1 Tablet(s) PO BID 12/25/201304/2013 Inactive Cipro 500 mg tablet RxNorm: 541118 1 Tablet(s) PO BID 12/25/201311/29 Inactive bupropion HCl SR 100 mg tablet,sustained-release RxNorm: 993 503 1 Tablet(s) PO QAM 12/11/2013 03/03/2014 Inactive cephalexin 500 mg capsule RxNorm: 790899 1 Capsule(s) PO QOD 201304/09/2014 Inactive Xanax 1 mg tablet RxNorm: 028210 1-2 Tablet(s) PO QHS 10/15/201310/29 Inactive simvastatin 10 mg tablet RxNorm: 253705 1 Tablet(s) PO QHS 10/11/19 14 01/07/2014 Inactive Celexa 40 mg tablet RxNorm: 335210 Tablet(s) PO TAKE 1 TABLET BY MOUTH ONCE DAILY. 09/18/2013 09/17/2013 Inactive Xanax 1 mg tablet RxNorm: 450225 1-2 Tablet(s) PO QHS 08/13/201308/28 Inactive simvastatin 10 mg tablet RxNorm: 314454 1 Tablet(s) PO QHS 07/12/19 14 10/08/2013 Inactive bupropion HCl SR 100 mg tablet,sustained-release RxNorm: 993 503 1 Tablet(s) PO QAM 05/22/2013 11/17/2013 Inactive Pamelor 10 mg capsule RxNorm: 494520 1 Capsule(s) PO QHS for PLATA /sleep 05/22/2013 06/04/2013 Inactive Xanax 1 mg tablet RxNorm: 829212 1-2 Tablet(s) PO QHS 05/15/201305/29 Inactive Pamelor 10 mg capsule RxNorm: 736128 1 Capsule(s) PO QHS for PLATA /sleep 05/15/2013 05/21/2013 Inactive Xanax 1 mg tablet RxNorm: 065032 1 Tablet(s) PO QHS 04/27/20132013 Inactive Zovirax 800 mg tablet RxNorm: 947327 1 Tablet(s) PO TID 04/05/2013 Inactive Xanax 1 mg tablet RxNorm: 036791 1 Tablet(s) PO QHS 04/03/2013 No Sto p Date Active bupropion HCl SR 100 mg tablet,sustained-release RxNorm: 993 503 1 Tablet(s) PO QAM 03/26/2013 05/21/2013 Inactive bupropion HCl SR 100 mg tablet,sustained-release RxNorm: 993 503 1 Tablet(s) PO QAM 03/06/2013 03/25/2013 Inactive Pamelor 10 mg capsule RxNorm: 267906 1 Capsule(s) PO QHS for PLATA /sleep 02/14/2013 05/14/2013 Inactive levothyroxine 75 mcg capsule RxNorm: 748741 1 Capsule(s) PO QD 12/2901/08/2014 Inactive simvastatin 10 mg tablet RxNorm: 118399 1 Tablet(s) PO QHS TAKE 1 TABLET BY MOUTH ONCE DAILY AT BEDTIME. 01/15/2013 07/10/2013 Inactive cyclobenzaprine 10 mg tablet RxNorm: 140156 1 Tablet(s) PO TID prn spasm 12/25/2012 06/22/2013 Inactive Pamelor 10 mg capsule RxNorm: 326889 1 Capsule(s) PO QHS for PLATA /sleep 11/29/2012 02/14/2013 Inactive Celexa 40 mg tablet RxNorm: 124716 Tablet(s) PO TAKE 1 TABLET BY MOUTH ONCE DAILY. 10/11/2012 09/17/2013 Inactive simvastatin 10 mg tablet RxNorm: 984214 Tablet(s) PO TA KE 1 TABLET BY MOUTH ONCE DAILY AT BEDTIME. 10/11/2012 01/14/2013 Inactive simvastatin 10 mg tablet RxNorm: 727968 1 Tablet(s) PO QD 07/11/2012 10/08/2012 Inactive simvastatin 10 mg tablet RxNorm: 257457 1 Tablet(s) PO QD 04/14/2012 07/11/2012 Inactive simvastatin 10 mg tablet RxNorm: 280845 1 Tablet(s) PO QD 04/14/2012 04/13/2012 Inactive Celexa 40 mg tablet RxNorm: 734562 1 Tablet(s) PO QD 03/15/201209/10 Inactive cyclobenzaprine 10 mg tablet RxNorm: 353546 1 Tablet(s) PO TID prn spasm 02/02/2012 02/01/2012 Inactive cyclobenzaprine 10 mg tablet RxNorm: 225650 1 Tablet(s) PO TID prn spasm 02/02/2012 07/30/2012 Inactive Diflucan 100 mg Tab RxNorm: 858502 1 Tablet(s) PO QD 08/17/201108/22 Inactive Cipro 250 mg Tab RxNorm: 440822 1 Tablet(s) PO QD 08/17/2011 10/15/19 12 Inactive Levaquin 500 mg Tab RxNorm: 323394 1 Tablet(s) PO QD 08/17/201108/22 Inactive Pyridium 200 mg Tab RxNorm: 4519872 1 Tablet(s) PO TID 10/14/2010 Inactive may turn urine orange-red color. Cipro 500 mg Tab RxNorm: 585574 1 Tablet(s) PO BID 10/14/2010 011 Inactive levothyroxine 75 mcg capsule RxNorm: 994684 1 Capsule(s) PO QD 12/3001/14/2011 Inactive Vitamin D3 5,000 unit tablet RxNorm: 791236 1 Tablet(s) PO QD No Star t Date Active Nasacort 55 mcg nasal spray aerosol RxNorm: 1483254 2 Sp ray NASAL each nostril QHS No Start Date Active cyclobenzaprine 10 mg tablet RxNorm: 173922 1 Tablet(s) PO TID as needed No Start Date 11/22/2018 Inactive Vitamin D2 1,000 unit capsule RxNorm: 906847 3 Capsule(s) PO QD No Start Date 11/16/2017 Inactive diclofenac sodium 75 mg tablet,delayed release RxNorm: 41619 6 1 Tablet(s) PO BID No Start Date 03/16/2016 Inactive cephalexin 500 mg capsule RxNorm: 020027 1 Capsule(s) PO QOD No Sta rt Date 12/04/2013 Inactive cyclobenzaprine 10 mg tablet RxNorm: 731113 1 Tablet(s) PO QHS No S tart Date 02/01/2012 Inactive loratadine 10 mg tablet RxNorm: 865015 1 Tablet(s) PO QHS No Start Date 05/14/2019 Inactive hydrocodone 5 mg-acetaminophen 500 mg tablet RxNorm: 136717 1 -2 Tablet(s) PO Q6H as needed No Start Date 08/09/2018 Inactive etodolac 400 mg tablet RxNorm: 329682 1 Tablet(s) PO TID No Start D ate 09/17/2018 Inactive Xanax 1 mg tablet RxNorm: 537282 1 Tablet(s) PO QHS No Start Date 04/2013 Inactive Vitamin D3 1,000 unit capsule RxNorm: 338904 1 Capsule(s) PO QD No Start Date 06/12/2014 Inactive estradiol 2 mg tablet RxNorm: 714978 1/2 Tablet(s) PO QD No Start D ate 03/05/2013 Inactive Celexa 40 mg tablet RxNorm: 026425 1 Tablet(s) PO QD No Start Date Inactive Activella 1 mg-0.5 mg tablet RxNorm: 8805081 1 Tablet(s) PO QD No S tart Date 07/10/2012 Inactive medroxyprogesterone 5 mg tablet RxNorm: 1009934 1/2 Tablet(s) PO QD No Start Date 03/05/2013 Inactive levothyroxine 88 mcg tablet RxNorm: 695569 1 Tablet(s) PO QD No Sta rt Date 02/26/2015 Inactive Keflex 500 mg capsule RxNorm: 988754 1 Capsule(s) PO PRN No Start D ate 08/16/2011 Inactive Activella 1 mg-0.5 mg tablet RxNorm: 7701096 1 Tablet(s) PO QHS No Start Date 03/27/2017 Inactive Activella 1 mg-0.5 mg tablet RxNorm: 6867351 1 Tablet(s) PO QD No S tart Date 02/06/2014 Inactive Flexeril 10 mg Tab RxNorm: 388309 1 Tablet(s) PO TID No Start Date Inactive prn spasm simvastatin 10 mg tablet RxNorm: 078578 1 Tablet(s) PO QD No Start Date 04/13/2012 Inactive Medication Administered No Medication Administered data Immunizations Vaccine Codes Date Status Influenza CVX: 135 01/16/2019 Complete Pneumococcal CVX: 133 01/16/2019 Complete Results No Results data Procedures Procedure Codes Date URINE CULTURE/ COLONY COUNT CPT-4: 53342 08/14/2019 URINE CULTURE/ COLONY COUNT CPT-4: 08628 07/26/2019 URINALYSIS NONAUTO W/O SCOPE CPT-4: 64933 07/17/2019 URINE CULTURE/ COLONY COUNT CPT-4: 04522 07/17/2019 DEXAMETHASONE SODIUM PHOS CPT-4: J1100 05/14/2019 THER/PROPH/DIAG INJ SC/IM CPT-4: 47397 05/14/2019 TRIAMCINOLONE ACET INJ NOS CPT-4: J3301 05/14/2019 FLU VACC PRSV FREE INC ANTIG 65 AND OLDER CPT-4: 28817 01/16/2019 FLU VACC PRSV FREE INC ANTIG 65 AND OLDER CPT-4: 05612 01/16/2019 PNEUMOCOCCAL VACC 13 NARESH IM CPT-4: 49936 01/16/2019 SKIN FUNGI CULTURE CPT-4: 01964 01/16/2019 IMMUNIZATION ADMIN CPT-4: 11594 01/16/2019 IMMUNIZATION ADMIN EACH ADD CPT-4: 88322 01/16/2019 THER/PROPH/DIAG INJ SC/IM CPT-4: 83343 01/17/2018 KETOROLAC TROMETHAMINE INJ CPT-4: J1885 01/17/2018 THER/PROPH/DIAG INJ SC/IM CPT-4: 05285 01/17/2018 PROMETHAZINE HCL INJECTION CPT-4: J2550 01/17/2018 URINALYSIS NONAUTO W/O SCOPE CPT-4: 78114 12/29/2017 URINE CULTURE/ COLONY COUNT CPT-4: 98484 12/29/2017 THER/PROPH/DIAG INJ SC/IM CPT-4: 06647 11/30/2017 TRIAMCINOLONE ACET INJ NOS CPT-4: J3301 11/30/2017 DEXAMETHASONE SODIUM PHOS CPT-4: J1100 11/30/2017 CEFTRIAXONE SODIUM INJECTION CPT-4: J0696 11/29/2017 THER/PROPH/DIAG INJ SC/IM CPT-4: 12076 11/29/2017 CEFTRIAXONE SODIUM INJECTION CPT-4: J0696 11/28/2017 THER/PROPH/DIAG INJ SC/IM CPT-4: 13346 11/28/2017 URINALYSIS NONAUTO W/O SCOPE CPT-4: 40728 10/10/2017 THER/PROPH/DIAG INJ SC/IM CPT-4: 36815 10/10/2017 TRIAMCINOLONE ACET INJ NOS CPT-4: J3301 10/10/2017 DEXAMETHASONE SODIUM PHOS CPT-4: J1100 10/10/2017 CEFTRIAXONE SODIUM INJECTION CPT-4: J0696 10/10/2017 THER/PROPH/DIAG INJ SC/IM CPT-4: 06147 10/10/2017 URINE CULTURE/ COLONY COUNT CPT-4: 82106 10/10/2017 THER/PROPH/DIAG INJ SC/IM CPT-4: 82101 11/02/2016 KETOROLAC TROMETHAMINE INJ CPT-4: J1885 11/02/2016 THER/PROPH/DIAG INJ SC/IM CPT-4: 13266 06/15/2016 TRIAMCINOLONE ACET INJ NOS CPT-4: J3301 06/15/2016 DEXAMETHASONE SODIUM PHOS CPT-4: J1100 06/15/2016 THER/PROPH/DIAG INJ SC/IM CPT-4: 85073 04/09/2016 KETOROLAC TROMETHAMINE INJ CPT-4: J1885 04/09/2016 PROMETHAZINE HCL INJECTION CPT-4: J2550 04/09/2016 EXC TR-EXT B9+ERASMO 0.5 CM< CPT-4: 84291 06/12/2015 URINALYSIS NONAUTO W/O SCOPE CPT-4: 83844 05/05/2015 URINE CULTURE/ COLONY COUNT CPT-4: 65245 05/05/2015 URINALYSIS NONAUTO W/O SCOPE CPT-4: 37424 03/24/2015 URINALYSIS NONAUTO W/O SCOPE CPT-4: 00974 02/27/2015 URINE CULTURE/ COLONY COUNT CPT-4: 52324 02/27/2015 THER/PROPH/DIAG INJ SC/IM CPT-4: [address] 04/18/2014 KETOROLAC TROMETHAMINE INJ CPT-4: J1885 04/18/2014 THER/PROPH/DIAG INJ SC/IM CPT-4: 28866 06/05/2013 TRIAMCINOLONE ACET INJ NOS CPT-4: J3301 06/05/2013 THER/PROPH/DIAG INJ SC/IM CPT-4: 87851 11/29/2012 KETOROLAC TROMETHAMINE INJ CPT-4: J1885 11/29/2012 URINALYSIS NONAUTO W/O SCOPE CPT-4: 56188 07/11/2012 URINE CULTURE/ COLONY COUNT CPT-4: 57209 07/11/2012 OCCULT BLOOD FECES CPT-4: 94328 02/17/2012 URINALYSIS NONAUTO W/O SCOPE CPT-4: 90838 08/27/2011 URINE CULTURE/ COLONY COUNT CPT-4: 67765 08/27/2011 URINALYSIS NONAUTO W/O SCOPE CPT-4: 45301 08/17/2011 URINE CULTURE/ COLONY COUNT CPT-4: 19264 08/17/2011 URINALYSIS NONAUTO W/O SCOPE CPT-4: 57044 12/28/2010 URINE CULTURE/ COLONY COUNT CPT-4: 90934 12/28/2010 URINALYSIS NONAUTO W/O SCOPE CPT-4: 69446 11/09/2010 URINE CULTURE/ COLONY COUNT CPT-4: 93817 11/09/2010 URINALYSIS NONAUTO W/O SCOPE CPT-4: 14595 10/29/2010 URINE CULTURE/ COLONY COUNT CPT-4: 69032 10/29/2010 URINE CULTURE/ COLONY COUNT CPT-4: 55308 10/14/2010 URINALYSIS NONAUTO W/O SCOPE CPT-4: 93188 10/14/2010 Vital Signs Date Vital 07/17/2019 Blood [...] 1: 122/74 Code: 8480-6 BMI: 22.0 Code: 55446-9 Heart Rate 1: 72 bpm Height: 5'3" [...] 1: 126/72 Code: 8480-6 BMI: 22.7 Code: 07331-1 Heart Rate 1: 72 bpm Height: 5'3" [...] 1: 112/70 Code: 8480-6 BMI: 22.0 Code: 54784-6 Heart Rate 1: 80 bpm Height: 5'3" [...] 1: 122/64 Code: 8480-6 BMI: 21.4 Code: 40379-3 Heart Rate 1: 88 bpm Height: 5'3" Respiratory Rate: 22 bpm SpO2: 96% Tempera ture: 36.8 (C) / 98.2 (F) Weight: 121 lbs 06/22/2017 Blood Pressure 1: 124/78 Code: 8480-6 BMI: 21.6 Code: 10499-1 Heart Rate 1: 76 bpm Height: 5'3" Respiratory Rate: 20 bpm Temperature: 36 .8 (C) / 98.3 (F) Weight: 122 lbs 03/28/2017 Blood Pressure 1: 92/60 Code: 8480-6 BMI: 20.4 C ode: 68705-0 Heart Rate 1: 72 bpm Height: 5'3" Respiratory Rate: 20 bpm Temperature: 36 .9 (C) / 98.4 (F) Weight: 115 lbs 02/16/2017 Blood Pressure 1: 106/70 Code: 8480-6 BMI: 21.3 Code: 44764-3 Heart Rate 1: 82 bpm Height: 5'3" Respiratory Rate: 22 bpm SpO2: 97% Tempera ture: 36.1 (C) / 97.0 (F) Weight: 120 lbs 09/06/2016 Blood Pressure 1: 118/64 Code: 8480-6 BMI: 22.7 Code: 36569-9 Heart Rate 1: 78 bpm Height: 5'3" Respiratory Rate: 20 bpm SpO2: 98% Tempera ture: 36.2 (C) / 97.2 (F) Weight: 128 lbs 08/16/2016 Blood Pressure 1: 118/78 Code: 8480-6 BMI: 22.1 Code: 09779-2 Heart Rate 1: 78 bpm Height: 5'3" Respiratory Rate: 20 bpm SpO2: 97% Tempera ture: 36.2 (C) / 97.1 (F) Weight: 125 lbs 07/19/2016 Blood Pressure 1: 116/68 Code: 8480-6 BMI: 22.5 Code: 24243-4 Heart Rate 1: 76 bpm Height: 5'3" Respiratory Rate: 20 bpm Temperature: 36 .8 (C) / 98.2 (F) Weight: 127 lbs 07/06/2016 Blood Pressure 1: 106/70 Code: 8480-6 BMI: 22.5 Code: 27455-0 Heart Rate 1: 72 bpm Height: 5'3" Respiratory Rate: 20 bpm SpO2: 97% Tempera ture: 36.8 (C) / 98.2 (F) Weight: 127 lbs 06/15/2016 Blood Pressure 1: 136/76 Code: 8480-6 BMI: 22.9 Code: 01500-3 Heart Rate 1: 74 bpm Height: 5'3" Respiratory Rate: 18 bpm SpO2: 98% Tempera ture: 36.4 (C) / 97.6 (F) Weight: 129 lbs 04/09/2016 Blood Pressure 1: 124/78 Code: 8480-6 BMI: 23.0 Code: 25021-4 Heart Rate 1: 86 bpm Height: 5'3" Respiratory Rate: 20 bpm SpO2: 96% Tempera ture: 36.5 (C) / 97.7 (F) Weight: 130 lbs 03/17/2016 Blood Pressure 1: 116 Code: 8480-6 BMI: 23.4 Code: 39094-3 Heart Rate 1: 84 bpm Height: 5'3" Respiratory Rate: 20 bpm SpO2: 97% Tempera ture: 36.8 (C) / 98.3 (F) Weight: 132 lbs 11/13/2015 Blood Pressure 1: 12478 Code: 8480-6 BMI: 23.4 Code: 19571-3 Heart Rate 1: 88 bpm Height: 5'3" Respiratory Rate: 24 bpm SpO2: 98% Tempera ture: 36.8 (C) / 98.2 (F) Weight: 132 lbs 06/12/2015 Blood Pressure 1: 126/78 Code: 8480-6 BMI: 23.6 Code: 39061-9 Heart Rate 1: 80 bpm Height: 5'3" Respiratory Rate: 20 bpm Temperature: 36 .9 (C) / 98.4 (F) Weight: 133 lbs 04/22/2015 Blood Pressure 1: 126/68 Code: 8480-6 BMI: 23.6 Code: 65217-5 Heart Rate 1: 80 bpm Height: 5'3" Respiratory Rate: 20 bpm Temperature: 36 .6 (C) / 97.9 (F) Weight: 133 lbs 03/24/2015 Blood Pressure 1: 116/66 Code: 8480-6 BMI: 22.9 Code: 84144-4 Heart Rate 1: 74 bpm Height: 5'3" Respiratory Rate: 20 bpm Temperature: 36 .4 (C) / 97.6 (F) Weight: 129 lbs 02/27/2015 Blood Pressure 1: 106/64 Code: 8480-6 BMI: 22.7 Code: 51215-4 Heart Rate 1: 74 bpm Height: 5'3" Respiratory Rate: 20 bpm Temperature: 36 .8 (C) / 98.2 (F) Weight: 128 lbs 06/13/2014 Blood Pressure 1: 104/66 Code: 8480-6 BMI: 22.7 Code: 30583-8 Heart Rate 1: 84 bpm Height: 5'3" Respiratory Rate: 20 bpm Temperature: 37 .0 (C) / 98.6 (F) Weight: 128 lbs 04/18/2014 Blood Pressure 1: 112/62 Code: 8480-6 BMI: 22.0 Code: 96367-7 Heart Rate 1: 82 bpm Height: 5'3" Respiratory Rate: 18 bpm Temperature: 36 .4 (C) / 97.6 (F) Weight: 124 lbs 12/05/2013 Blood Pressure 1: 106/70 Code: 8480-6 BMI: 23.7 Code: 36174-4 Heart Rate 1: 84 bpm Height: 5'3" [...] 1: 126/88 Code: 8480-6 BMI: 22.3 Code: 70018-1 Heart Rate 1: 96 bpm Height: 5'4" Respiratory Rate: 20 bpm Temperature: 37 .7 (C) / 99.9 (F) Weight: 130 lbs 11/29/2012 Blood Pressure 1: 122/76 Code: 8480-6 BMI: 23.0 Code: 51710-4 Heart Rate 1: 84 bpm Height: 5'4" Respiratory Rate: 20 bpm Temperature: 36 .9 (C) / 98.4 (F) Weight: 134 lbs 09/26/2012 Blood Pressure 1: 114/76 Code: 8480-6 BMI: 23.0 Code: 38925-4 Heart Rate 1: 84 bpm Height: 5'4" Respiratory Rate: 20 bpm Temperature: 37 .3 (C) / 99.1 (F) Weight: 134 lbs 07/11/2012 Blood Pressure 1: 126/78 Code: 8480-6 BMI: 23.7 Code: 93158-2 Heart Rate 1: 76 bpm Height: 5'4" Respiratory Rate: 20 bpm Temperature: 37 .1 (C) / 98.7 (F) Weight: 138 lbs 02/02/2012 Blood Pressure 1: 108/70 Code: 8480-6 BMI: 23.2 Code: 26627-6 Heart Rate 1: 88 bpm Height: 5'4" Respiratory Rate: 20 bpm Temperature: 36 .4 (C) / 97.6 (F) Weight: 135 lbs 08/17/2011 Blood Pressure 1: 108/70 Code: 8480-6 BMI: 23.2 Code: 76821-9 Heart Rate 1: 72 bpm Height: 5'4" Respiratory Rate: 20 bpm Temperature: 36 .8 (C) / 98.2 (F) Weight: 135 lbs 10/14/2010 Blood Pressure 1: 120/72 Code: 8480-6 BMI: 23.4 Code: 49434-9 Heart Rate 1: 78 bpm Height: 5'3" [...] Urinary tract infection[ICD10: N39.0] Alexandra CARROLL DO [employer] CPT-4: 79793 08/14/2019 ([id number]) NURSE/OUTPATIENT VISIT EST Diagnosis: Urinary tract infection[ICD10: N39.0] Alexandra CARROLL DO [employer] CPT-4: 66113 07/26/2019 ([id number]) OFFICE/OUTPATIENT VISIT EST Diagnosis: Urinary tract infection, site not specified[ICD10: N39.0] Diagnosis: Dysuria[ICD10: R30.0] Vandana Patricksasha CARROLL DO [employer] CPT-4: 65967 07/17/2019 ([id number]) OFFICE/OUTPATIENT VISIT EST Diagnosis: Allergic dermatitis[ICD10: L23.9] Alexandra CARROLL DO [employer] CPT-4: 11151 06/26/2019 ([id number]) OFFICE/OUTPATIENT VISIT EST Diagnosis: Contact dermatitis due to plant[ICD10: L25.5] Diagnosis: Cellulitis of left arm[ICD10: L03.114] [facility] 16164 05/14/2019 ([id number]) OFFICE/OUTPATIENT VISIT EST Diagnosis: Ventral hernia[ICD10: K43.9] Diagnosis: Incisional hernia[ICD10: K43.2] [facility]: 80331 04/10/2019 ([id number]) OFFICE/OUTPATIENT VISIT EST Diagnosis: Insomnia[ICD10: G47.00] Diagnosis: Thrombocytosis[ICD10: D47.3] [facility] CPT-[facility]: 01843 02/14/2019 ([id number]) OFFICE/OUTPATIENT VISIT EST Diagnosis: Small bowel obstruction[ICD10: K56.609] Diagnosis: FLU VACCINE[ICD10: Z23] Diagnosis: PNEUMOCOCCAL VACCINE[ICD10: Z23] Diagnosis: Onychomycosis[ICD10: B35.1] Alexandra SHAFFERLINE Ty KUNZ [facility] CPT-4: 18846 01/16/2019 ([id number]) OFFICE/OUTPATIENT VISIT EST Diagnosis: Diarrhea, unspecified[ICD10: R19.7] Diagnosis: Radiculopathy, lumbosacral region[ICD10: M54.17] [facility] CPT-[facility]: 77557 09/18/2018 OFFICE/OUTPATIENT VISIT EST Diagnosis: Other intervertebral disc degeneration, lumbar region[ICD10: M51.36] Diagnosis: Sacroiliitis, not elsewhere classified[ICD10: M46.1] Diagnosis: Obstructive sleep apnea (adult) (pediatric)[ICD10: G47.33] [facility] CPT-[facility]: 03027 08/10/2018 ([id number]) OFFICE/OUTPATIENT VISIT EST Diagnosis: Fracture of unspecified part of left clavicle, subsequent encounter for fracture with routine healing[ICD10: S42.002D] Diagnosis: Cervicalgia[ICD10: M54.2] Diagnosis: Radiculopathy, lumbosacral region[ICD10: M54.17] Aelxandra CARROLL [employer] [facility] CPT-4: 19048 03/27/2018 ([id number]) OFFICE/OUTPATIENT VISIT EST Diagnosis: Fracture of unspecified part of left clavicle, subsequent encounter for fracture with routine healing[ICD10: S42.002D] Diagnosis: Other intervertebral disc degeneration, lumbar region[ICD10: M51.36] Diagnosis: Unspecified fracture of first thoracic vertebra, subsequent encounter for fracture with routine healing[ICD10: S22.019D] Diagnosis: Unspecified fracture of second thoracic vertebra, subsequent encounter for fracture with routine healing[ICD10: S22.029D] Alexandra CARROLL [employer] [facility] CPT-4: 76669 02/23/2018 ([id number]) OFFICE/OUTPATIENT VISIT EST Diagnosis: Fracture of unspecified part of left clavicle, subsequent encounter for fracture with routine healing[ICD10: S42.002D] Diagnosis: Unspecified fracture of first thoracic vertebra, subsequent encounter for fracture with routine healing[ICD10: S22.019D] Diagnosis: Unspecified fracture of second thoracic vertebra, subsequent encounter for fracture with routine healing[ICD10: S22.029D] Alexandra CARROLL [employer] [facility] CPT-4: 00594 01/24/2018 ([id number]) OFFICE/OUTPATIENT VISIT EST Diagnosis: Migraine, unspecified, not intractable, without status migrainosus[ICD10: G43.909] Alexandra CARROLL [employer] [facility] CPT - 4: 36980 01/17/2018 ([id number]) OFFICE/OUTPATIENT VISIT EST Diagnosis: Hematuria, unspecified[ICD10: R31.9] Diagnosis: Other intervertebral disc degeneration, lumbar region[ICD10: M51.36] Diagnosis: Retention of urine, unspecified[ICD10: R33.9] Alexandra CARROLL [employer] [facility] CPT-4: 60616 12/29/2017 OFFICE/OUTPATIENT VISIT EST Diagnosis: Fracture of [...] Low back pain[ICD10: M54.5] Alexandra KUNZ DO [facility] CPT-4: 60100 12/06/2017 ([id number]) OFFICE/OUTPATIENT VISIT EST Diagnosis: Cellulitis of right upper limb[ICD10: L03.113] Diagnosis: Allergy status to other antibiotic agents status[ICD10: Z88.1] Vandana CARROLL DO [facility] CPT-4: 55252 12/01/2017 ([id number]) OFFICE/OUTPATIENT VISIT EST Diagnosis: Cellulitis of right upper limb[ICD10: L03.113] Diagnosis: Allergy status to other antibiotic agents status[ICD10: Z88.1] Vandana CARROLL DO [facility] CPT-4: 89870 11/30/2017 ([id number]) OFFICE/OUTPATIENT VISIT EST Diagnosis: Cellulitis of right upper limb[ICD10: L03.113] Vandana CARROLL DO [facility] CPT-4: 70749 11/29/2017 ([id number]) OFFICE/OUTPATIENT VISIT EST Diagnosis: Cellulitis of right upper limb[ICD10: L03.113] Vandana CARROLL DO [facility] CPT-4: 76965 11/28/2017 ([id number]) OFFICE/OUTPATIENT VISIT EST Diagnosis: Other intervertebral disc degeneration, lumbar region[ICD10: M51.36] Diagnosis: Other retention of urine[ICD10: R33.8] Diagnosis: Primary insomnia[ICD10: F51.01] Diagnosis: Other spondylosis, site unspecified[ICD10: M47.899] Alexandra CARROLL [employer] [facility] CPT-4: 04041 11/17/2017 ([id number]) OFFICE/OUTPATIENT VISIT EST Diagnosis: Radiculopathy, lumbosacral region[ICD10: M54.17] Diagnosis: Other retention of urine[ICD10: R33.8] Diagnosis: Urinary tract infection, site not specified[ICD10: N39.0] Vandana CARROLL DO [facility] CPT-4: 94078 10/10/2017 ([id number]) PREV VISIT EST AGE 40-64 Diagnosis: Encounter for general adult medical examination without abnormal findings[ICD10: Z00.00] Diagnosis: Other intervertebral disc degeneration, lumbar region[ICD10: M51.36] Diagnosis: Hypothyroidism, unspecified[ICD10: E03.9] Diagnosis: Mixed hyperlipidemia[ICD10: E78.2] Alexandra Glen EDMUNDFELIPE CARROLL [employer] [facility] CPT-4: 86118 06/22/2017 ([id number]) OFFICE/OUTPATIENT VISIT EST Diagnosis: URI, ACUTE[ICD10: J06.9] Alexandra Danelawandajavier ALEXANDRA MacyAri GIULIA PAREKH [facility] CPT-4: 53276 03/28/2017 OFFICE/OUTPATIENT VISIT EST Diagnosis: Acute sinusitis, unspecified[ICD10: J01.90] Vandana CavazosAri GLEN SALGUERO [facility] CPT-4: 68231 02/16/2017 ([id number]) OFFICE/OUTPATIENT VISIT EST Diagnosis: Migraine, unspecified, not intractable, without status migrainosus[ICD10: G43.909] Alexandra SHAFFERLINE MacyAri GLEN [employer] [facility] CPT - 4: 55627 11/02/2016 ([id number]) OFFICE/OUTPATIENT VISIT EST Diagnosis: Pain in thoracic spine[ICD10: M54.6] Diagnosis: Chondrocostal junction syndrome [Tietze][ICD10: M94.0] Alexandra Danelawandajavier ALEXANDRA MacyAri GLEN [employer] [facility] CPT-4: 34350 09/06/2016 OFFICE/OUTPATIENT VISIT EST Diagnosis: Acute sinusitis, unspecified[ICD10: J01.90] Vidya Manuel ALEXANDRA MacyAri GLEN [employer] [facility] CPT-4: 16686 08/16/2016 ([id number]) OFFICE/OUTPATIENT VISIT EST Diagnosis: Primary insomnia[ICD10: F51.01] Diagnosis: Cramp and spasm[ICD10: R25.2] Diagnosis: Major depressive disorder, single episode, mild[ICD10: F32.0] Alexandrateja CARROLL [employer] [facility] CPT-4: 86567 07/19/2016 ([id number]) OFFICE/OUTPATIENT VISIT EST Diagnosis: Obstructive sleep apnea (adult) (pediatric)[ICD10: G47.33] Diagnosis: Other fatigue[ICD10: R53.83] Diagnosis: Allergic rhinitis due to pollen[ICD10: J30.1] Diagnosis: Headache[ICD10: R51] Alexandra CARROLL DO [facility] CPT-4: 15476 07/06/2016 ([id number]) OFFICE/OUTPATIENT VISIT EST Diagnosis: Acute recurrent sinusitis, unspecified[ICD10: J01.91] Diagnosis: Allergic rhinitis due to pollen[ICD10: J30.1] Alexandra CARROLL DO [facility] CPT-4: 01066 06/15/2016 ([id number]) OFFICE/OUTPATIENT VISIT EST Diagnosis: Migraine, unspecified, not intractable, without status migrainosus[ICD10: G43.909] Diagnosis: Allergic rhinitis, unspecified[ICD10: J30.9] Nae CARROLL [employer] [facility] CPT-4: 98914 04/09/2016 ([id number]) OFFICE/OUTPATIENT VISIT EST Diagnosis: Hypothyroidism, unspecified[ICD10: E03.9] Diagnosis: Other fatigue[ICD10: R53.83] Diagnosis: Mixed hyperlipidemia[ICD10: E78.2] Diagnosis: Major depressive disorder, single episode, mild[ICD10: F32.0] Alexandra CARROLL [employer] [facility] CPT-4: 95716 03/17/2016 ([id number]) OFFICE/OUTPATIENT VISIT EST Diagnosis: Insomnia, unspecified[ICD10: G47.00] Diagnosis: Encounter for therapeutic drug level monitoring[ICD10: Z51.81] Nae Woody SHAFFERLINE Ty CARROLL [employer] [facility] CPT-4: 78799 11/13/2015 ([id number]) OFFICE/OUTPATIENT VISIT EST Diagnosis: Hematuria, unspecified[ICD10: R31.9] Alexandra CARROLL [employer] [facility] CPT-4: 14551 05/05/2015 ([id number]) OFFICE/OUTPATIENT VISIT EST Diagnosis: Other intervertebral disc degeneration, lumbar region[ICD10: M51.36] Diagnosis: Radiculopathy, lumbosacral region[ICD10: M54.17] Alexandra CARROLL DO [facility] CPT-4: 00484 04/22/2015 ([id number]) OFFICE/OUTPATIENT VISIT EST Diagnosis: Low back pain[ICD10: M54.5] Diagnosis: Recurrent and persistent hematuria with unspecified morphologic changes[ICD10: N02.9] Alexandradanielle CARROLL DO [facility] CPT-4: 40264 03/24/2015 ([id number]) OFFICE/OUTPATIENT VISIT EST Diagnosis: Acute sinusitis, unspecified[ICD10: J01.90] Diagnosis: Headache[ICD10: R51] Diagnosis: Retention of urine, unspecified[ICD10: R33.9] Diagnosis: Hypothyroidism, unspecified[ICD10: E03.9] Alexandradanielle SHAFFERLINE MacyAri GLEN SALGUERO [facility] CPT-4: 87098 02/27/2015 ([id number]) PREV VISIT EST AGE 40-64 Diagnosis: ROUTINE MEDICAL EXAM[ICD9: V70.0] Diagnosis: HYPOTHYROIDISM[ICD9: 244.9] Diagnosis: HYPERLIPIDEMIA NEC/NOS[ICD9: 272.4] Alexandra Danejames CORDOBA Ty CARROLL DO [facility] CPT-4: 53109 06/13/2014 ([id number]) OFFICE/OUTPATIENT VISIT EST Diagnosis: CEPHALGIA[ICD9: 784.0] Diagnosis: Nausea[ICD9: 787.02] Shalini Romeo MARINQUELINE Ty CARROLL DO [facility] CPT-4: 07397 04/18/2014 ([id number]) OFFICE/OUTPATIENT VISIT EST Diagnosis: INSOMNIA NOS[ICD9: 780.52] Diagnosis: Complicated grieving[ICD9: 309.0] Alexandra Louise MacyAri GLEN SALGUERO [facility] CPT-4: 79711 12/05/2013 ([id number]) OFFICE/OUTPATIENT VISIT EST Diagnosis: Muscle twitch[ICD9: 781.0] Diagnosis: ALLERGIC RHINITIS[ICD9: 477.9] Alexandra FORDE Macy Ari GLEN SALGUERO [facility] CPT-4: 59359 06/05/2013 ([id number]) OFFICE/OUTPATIENT VISIT EST Diagnosis: DEPRESSIVE DISORDER NEC[ICD9: 311] Alexandra Orendjavier QUINTERO S. DANENDER [facility] CPT-4: 13569 05/22/2013 OFFICE/OUTPATIENT VISIT EST Diagnosis: Shingles[ICD9: 053.9] Alexandra VELANDER [facility] CPT-4: 34710 04/05/2013 ([id number]) OFFICE/OUTPATIENT VISIT EST Diagnosis: DEPRESSIVE DISORDER NEC[ICD9: 311] Alexandrateja QUINTERO S. DANENDER DO [facility] CPT-4: 43879 03/26/2013 ([id number]) OFFICE/OUTPATIENT VISIT EST Diagnosis: Complicated grieving[ICD9: 309.0] Alxeandra Carroll PAM Dani SAri VELANDER [facility] CPT-4: 99668 03/06/2013 ([id number]) OFFICE/OUTPATIENT VISIT EST Diagnosis: CEPHALGIA, TENSION[ICD9: 307.81] Diagnosis: MIGRAINE NOS/NOT INTRCBL[ICD9: 346.90] Diagnosis: Cervicalgia[ICD9: 723.1] Alexandra Velalawandajavier SHAFFERALEXANDRA Ty VELAN IZABELLA [facility] CPT-4: 31886 11/29/2012 ([id number]) OFFICE/OUTPATIENT VISIT EST Diagnosis: Jaw pain[ICD9: 784.92] Diagnosis: Shoulder pain[ICD9: 719.41] Diagnosis: Family history of premature coronary artery disease[ICD9: V17.3] Alexandra Danejames ALEXANDRA MacyAri GLEN [facility] CPT-4: 23657 09/26/2012 ([id number]) OFFICE/OUTPATIENT VISIT EST Diagnosis: ABDOMINAL PAIN[ICD9: 789.00] Diagnosis: Constipation[ICD9: 564.00] Diagnosis: Hematuria[ICD9: 599.70] Alexandra Carroll ALEXANDRA MacyAri DANEND ER [facility] CPT-4: 57302 07/11/2012 ([id number]) OFFICE/OUTPATIENT VISIT EST Diagnosis: ANEMIA NOS[ICD9: 285.9] Alexandra FORDE MacyAri DANEND ER DO [facility] CPT-4: 44335 02/17/2012 ([id number]) PREV VISIT EST AGE 40-64 Diagnosis: ROUTINE MEDICAL EXAM[ICD9: V70.0] Diagnosis: HYPOTHYROIDISM[ICD9: 244.9] Diagnosis: HYPERLIPIDEMIA NEC/NOS[ICD9: 272.4] Diagnosis: Obstructive sleep apnea[ICD9: 327.23] Alexandra Glen ISLAS S. ORENDER DO [facility] CPT-4: 51736 02/02/2012 ([id number]) OFFICE/OUTPATIENT VISIT EST Diagnosis: URINARY TRACT INFECTION[ICD9: 599.0] Alexandra Glen LOZANO S. ORENDER DO [facility] CPT-4: 64561 08/27/2011 ([id number]) OFFICE/OUTPATIENT VISIT EST Diagnosis: URINARY TRACT INFECTION[ICD9: 599.0] Diagnosis: ACUTE CYSTITIS[ICD9: 595.0] Alexandra Glen ALEXANDRA S. O RENDER DO [facility] CPT-4: 12648 08/17/2011 OFFICE/OUTPATIENT VISIT EST Diagnosis: URINARY TRACT INFECTION[ICD9: 599.0] Steph MARINQUE DANIELLE S. ORENDER DO [facility] CPT-4: 28821 10/14/2010 Plan of Care Planned Activity Notes Codes Status Date Appointment: Alexandra Carroll WPtel: [facility] [place] [address] 07/26/2019 Visit Diagnosis Plan: Urinary tract infection, site no t specified Discussion: urine sent for culture. cipro prescribed to take as directed and instructed to stop the macrobid that she has since there is no improvement in symptoms. push fluids. will call patient pending culture results. ICD-9 : 599.0 ICD-10 : N39.0 07/17/2019 [facility]ment[facility] 07/17/2019 Patient Education: Cipro- [employer] Abiel [phone] [email or web address] Completed 07/17/2019 Visit Diagnosis Plan: Allergic dermatitis Discussion: Could be numerous things that were given during surgery Continue benadryl Add Prednisone Notify if persists/worsens ICD-9 : 692.9 ICD-10 : L23.9 06/26/2019 Appointment: Alexandra Carroll WPtel: [phone] [facility] ACUTE ILLNESS 06/26/2019 Patient Education: prednisone- [employer] Coupon [phone] [email or web address] Completed 06/26/2019 Visit Diagnosis Plan: Contact dermatitis due to plant Discussion: kenalog 40 and dexa 4 given in office. i called the office of dr. albert to make sure he was ok with patient receiving steroid injection a week pre-op and dr. albert's food science professor voiced ok to give. ICD-9 : 692.6 ICD-10 : L25.5 05/14/2019 Visit Diagnosis Plan: Cellulitis of left arm Discussio n: due to patient's multiple allergies, levaquin was prescribed to take as directed. call office with new or worsening symptoms. ICD-9 : 682.3 ICD-10 : L03.114 05/14/2019 Appointment: Vandana Crowe [address] [place] [address] ACUTE ILLNESS 05/14/2019 Patient Education: Levaquin- [employer] Coupon [phone] [email or web address] Completed 05/14/2019 Visit Diagnosis Plan: Ventral hernia Discussion: See s urgery for repair Discussed signs of incarceration or strangulation then is to report to ER ICD-9 : 553.20 ICD-10 : K43.9 04/10/2019 Appointment: Alexandra Carroll WPtel: [phone] [facility] left second message 04/10/19 at 10:20 ACUTE ILLNE SS 04/10/2019 Care Plan: Referral Order SNOMED-CT : 30 [id number] Pending 04/10/2019 Visit Diagnosis Plan: Thrombocytosis Discussion: Check iron and ferritin with next blood draw in 2 weeks Discussed if iron stores are normal and continue to have elevating platelets then will need bone marrow ICD-9 : 238.71 ICD-10 : D47.3 02/14/2019 Visit Diagnosis Plan: Insomnia Discussion: Trazadone 1 50mg with alprazolam 1mg po q HS for 1 week then call on how doing ICD-9 : 780.52 ICD-10 : G47.00 02/14/2019 Appointment: Alexandra Carroll WPtel: [address] [place] [address] FOLLOW UP 02/14/2019 Appointment: Alexandra Carroll WPtel: [address] [place] [address] US CANCELED 02/12/2019 Visit Diagnosis Plan: Small bowel obstruction Discussi on: S/P surgery in September with postop complications of wound dehiscence ICD-9 : 560.9 ICD-10 : K56.609 01/16/2019 Visit Diagnosis Plan: Onychomycosis Discussion: Send n ail for culture ICD-9 : 110.1 ICD-10 : B35.1 01/16/2019 Appointment: Alexandra Carroll WPtel: [address] [place] [address] MEDICATION REVIEW 01/16/2019 Appointment: Alexandra Carroll WPtel: [address] [place], [place] [phone] US CANCELED 12/12/2018 Visit Diagnosis Plan: Radiculopathy, lumbosacral regio n Discussion: Had left SI joint injection by Dr. Baig about 2 weeks ago and has fwup with him ICD-9 : 724.4 ICD-10 : M54.17 09/18/2018 Visit Diagnosis Plan: Diarrhea, unspecified Discussion : Due for updated colonoscopy ICD-9 : 787.91 ICD-10 : R19.7 09/18/2018 Appointment: Alexandra Carroll WPtel: [address] [place] [address] PATIENT CONSULT 15 09/18/2018 Care Plan: Referral Order SNOMED-CT : [id number] Pending 09/18/2018 Visit Diagnosis Plan: Sacroiliitis, not elsewhere clas sified Discussion: Referral for possible SI joint injection vs facet joint vs other injections or modalities--Dr. Levin has tried sulindac, relafen, and now on etolodac--recommend she add a daily pepcid or zantac for GI protection ICD-9 : 720.2 ICD-10 : M46.1 08/10/2018 Visit Diagnosis Plan: Other intervertebral disc degene ration, lumbar region Follow Up: 3 months ICD-9 : 722.52 ICD-10 : M51.36 08/10/2018 Visit Diagnosis Plan: Obstructive sleep apnea (adult) (pediatric) Discussion: New rx for CPAP written out as patient uses CPAP nightly and continues to benefit from its use and need ICD-9 : 327.23 ICD-10 : G47.33 08/10/2018 Appointment: Alexandra Carroll WPtel: [address] [place], [place] [phone] US MEDICATION REVIEW 08/10/2018 Care Plan: Referral Order SNOMED-CT : [id number] Pending 08/10/2018 Appointment: Alexandra Carroll WPtel: 18 [address] [place], [place] [id number] US CANCELED 04/17/2018 Visit Diagnosis Plan: Fracture of unspec ified part of left clavicle, subsequent encounter for fracture with routine healing Discussion: Pain much improved Discussed that left arm weakness will improve with time--has increased to 2 lb weight and will slowly go up with time ICD-9 : V54.11 ICD-10 : S42.002D 03/27/2018 Visit Diagnosis Plan: Cervicalgia Discussion: Daily [facility] Has finished PT and seeing chiropracter ICD-9 : 723.1 ICD-10 : M54.2 03/27/2018 Visit Diagnosis Plan: Radiculopathy, lumbosacral regio n Discussion: Stable gabapentin ICD-9 : 724.4 ICD-10 : M54.17 03/27/2018 Appointment: Alexandra Carroll WPtel: [address] [place], [place] [phone] [place] FOLLOW UP 03/27/2018 Visit Diagnosis Plan: Fracture of unspec ified part of left clavicle, subsequent encounter for fracture with routine healing Discussion: Healing Home exercises and strengthening ICD-9 : V54.11 ICD-10 : S42.002D 02/23/2018 Visit Diagnosis Plan: Other intervertebral disc degene ration, lumbar region Discussion: Continue gabapentin at 300mg q HS Start daily low back stretches Recheck 1month ICD-9 : 722.52 ICD-10 : M51.36 02/23/2018 Appointment: Alexandra Carroll WPtel: [address] [place] [address] US FOLLOW UP 02/23/2018 Patient Education: gabapentin- [employer] Coupon [phone] [email or web address] Completed 02/23/2018 Visit Diagnosis Plan: Fracture of unspec ified part of left clavicle, subsequent encounter for fracture with routine healing Discussion: Hold on PT and do home stretches Trial of gabapentin Recheck 4 weeks ICD-9 : V54.11 ICD-10 : S42.002D 01/24/2018 Appointment: Alexandra Carroll WPtel: [address] [place], [place] [phone] US FOLLOW UP 01/24/2018 Visit Diagnosis Plan: Migraine, unspecif ied, not intractable, without status migrainosus Discussion: Toradol and phenergan given ICD-9 : 346.90 ICD-10 : G43.909 01/17/2018 Appointment: Alexandra Carroll WPtel: [address] [place], [place] [phone] [place] ACUTE ILLNESS 01/17/2018 Visit Diagnosis Plan: [...] R33.9 12/29/2017 Appointment: [facility]el[facility] [facility] [facility] 12/29/2017 Care Plan: US EXAM PELVIC COMPLETE LOINC : 81130-0 Pending 12/29/2017 Care Plan: ECHO EXAM OF ABDOMEN LOINC : 00896-6 Pending 12/29/2017 Care Plan: Referral Order SNOMED-CT : 30 [id number] Pending 12/29/2017 Visit Diagnosis Plan: Fracture of unspec ified part of left clavicle, subsequent encounter for fracture with routine healing Discussion: Start PT in another 7-14 days Off work for the rest of this week then may return to part-time work on 12/12/17 Fwup in 4 weeks ICD-9 : V54.11 ICD-10 : S42.002D 12/06/2017 Appointment: Alexandra Carroll WPtel[facility] [facility] [facility] 12/06/2017 Patient Education: Patient Medication [...] : Z88.1 12/01/2017 Appointment: Vandana Crowe [address] [facility] FOLLOW UP 12/01/2017 Patient Education: Patient Medication [...] : L03.113 11/30/2017 Appointment: Vandana Crowe [address] [facility] 11/30/2017 Patient Education: Patient Medication Summary Completed [...] ICD-10 : L03.113 11/29/2017 Appointment: Vandana Crowe [address] [place], [place] [phone] FOLLOW UP 11/29/2017 Patient Education: Patient Medication [...] ICD-10 : L03.113 11/28/2017 Appointment: Vandana Crowe [address] [place], [place] [id number] ACUTE ILLNESS 11/28/2017 Patient Education: Patient [...] : M47.899 11/17/2017 Appointment: Alexandra Carroll WPtel: [facility] MEDICATION REVIEW 11/17/2017 Patient Education: Patient Medication Summary Completed 11/17/2017 Care Plan: Referral Order SNOMED-CT : 30 [id number] Pending 11/17/2017 Patient Education: Patient Medication Summary Completed 10/12/2017 Care Plan: MRI LUMBAR SPINE W/O DYE LOIN C : 09594-1 Pending 10/12/2017 Care Plan: X-RAY EXAM L-S SPINE 2/3 VWS LOINC : 15556-6 Pending 10/11/2017 Visit Diagnosis Plan: Other retention [...] med[facility] tomorrow[facility] with inversion table. instructed patient to go to ED immediately if she develops any incontinence with bowel or bladder. patient verbalized understanding. if no improvement, will need updated MRI and referral to surgeon. ICD-9 : 724.4 ICD-10 : M54.17 10/10/2017 Appointment: Vandana Crowe [address] [place] [address] ACUTE ILLNESS 10/10/2017 Patient Education: Patient Medication Summary Completed 10/10/2017 Appointment: Vandana Crowe [address] [place] [address] ACUTE ILLNESS 08/01/2017 Visit Diagnosis Plan: Other intervertebral disc degene ration, lumbar region Discussion: Core strengtheing and inversion table and if worsening will need updated MRI ICD-9 : 722.52 ICD-10 : M51.36 06/22/2017 Visit Diagnosis Plan: Encounter for [facility] adult medical examination without abnormal findings Discussion: Lab dis ussed Follow Up: 6 months ICD-9 : V70.0 ICD-10 : Z00.00 06/22/2017 Appointment: Alexandra Carroll WPtel: [phone] Annual Well Visit 06/22/2017 Patient Education: Patient Medication Summary Completed 06/22/2017 Patient Education: Patient Medication Summary Completed 06/16/2017 Care Plan: [facility] 53726-6 Pending 06/16/2017 Care Plan: ASSAY THYROID STIM HORMONE Pen ding 06/16/2017 Care Plan: ASSAY OF FREE THYROXINE Pendin g 06/16/2017 Care Plan: LIPID PANEL LOINC : 58244-4 Pending 06/16/2017 Care Plan: CBC Pending 06/16/2017 [...] care. Rest, Fluids... 03/28/2017 Appointment: Alexandra Carrolltel: [address] [place] [address] ACUTE ILLNESS 03/28/2017 Patient Education: Patient Medication Summary Completed 03/28/2017 Visit Diagnosis Plan: Acute sinusitis, unspecified Dis cussion: cefdinir and medrol dose pack prescribed to be taken as directed. tylenol/ibuprofen as needed. educated on importance of taking singulair or zyrtec daily to prevent worsening symptoms. keep hydrated. ICD-9 : 461.9 ICD-10 : J01.90 02/16/2017 Appointment: Vandana Crowe [address] [place] [address] ACUTE ILLNESS 02/16/2017 Patient Education: Patient Medication Summary Completed 02/16/2017 Appointment: Alexandra Carroll WPtel: [address] [place] [address] US INJECTION 11/02/2016 Patient Education: Patient Medication Summary Completed 11/02/2016 Visit Diagnosis Plan: Pain in thoracic spine Discussio n: Increase flexeril to 10mg po BID Add Mobic 15mg po daily Towel stretch May see chiropractor to adjust ribs Notify if persists or worsening ICD-9 : 724.1 ICD-10 : M54.6 09/06/2016 Appointment: Alexandra Carroll WPtel: [address] [place] [address] ACUTE ILLNESS 09/06/2016 Patient Education: Patient Medication Summary Completed 09/06/2016 Visit Plan: Due to hx, ERx Cefdinir and Prednisone (discussed risks for both) Given bottle for nasal saline rinses Tylenol/Ibuprofen prn pain/fever Fluids/rest Discussed s/s of worsening, RTC if no improvement 08/16/2016 Appointment: Vidya Manuel WPtel: [address] [place] [address] ACUTE ILLNESS 08/16/2016 Patient Education: Patient Medication [...] : F51.01 07/19/2016 Appointment: Alexandra Carroll WPtel: [address] [place], [place] [phone] 07/15 confirmed`sl FOLLOW UP 07/19/2016 Patient Education: [...] : G47.33 07/06/2016 Appointment: Alexandra Carroll WPtel: [facility] 07/05 confirmed-sp FOLLOW UP 07/06/2016 Patient [...] : J30.1 06/15/2016 Appointment: Alexandra Carroll WPtel: [facility] 06/14 lm ~sl ACUTE ILLNESS 06/15/2016 Patient Education: Patient Medication Summary Completed 06/15/2016 Visit Diagnosis Plan: Migraine, unspecif ied, not intractable, without status migrainosus Discussion: Injection as above Drink ple nty of water No driving x 6 hours Rest No OTC nsaids today Follow up PRN Refill called of claritin-d ICD-9 : 346.90 ICD-10 : G43.909 04/09/2016 Appointment: Nae Mckay [facility] [facility] 04/09/2016 Patient Education: Patient Medication [...] : E78.2 03/17/2016 Appointment: Alexandra Carroll WPtel: [address] [place], [place] [address] 03/16 nvm~sl 03/17 confirmed`sl FOLLOW UP 0 03/17/2016 Patient Education: Patient Medication Summary Completed 03/17/2016 Appointment: Alexandra Carroll WPtel: [address] [place], [place] [address] [place] 03/11 lm~sl 03/15lm `sl 03/15 confirmed`sl FOLLOW U P 03/15/2016 Visit Plan: Discussed labeled indication s for benzos. Since xanax is not labeled for sleep and she has never tried anything else, encouraged her to trial restoril(another benzo) since it is labeled for sleep. She agrees with this trial. Rx called to [facility] after cost comparison which is nearly the same robert. If working well, continue the h8syzrd office visits. Call if not working well, and will restart xanax at for sleep. 11/13/2015 Appointment: Nae Mckay [facility] [facility] 11/11 confirmed~sl FOLLOW UP 11/13/2015 Patient Education: Patient Medication Summary Completed 11/13/2015 Appointment: Alexandra Carroll WPtel: [address] [place], [place] [phone] Suture Removal 06/23/2015 Patient Education: Patient Medication Summary Completed 06/23/2015 Visit Plan: Removal of lesion above usin g 3-0 punch biopsy Return in 10 days for suture removal 06/12/2015 Appointment: Alexandra Carroll WPtel: [address] [place], [place] [address] [place] 06/10 lm ~sl ACUTE ILLNESS 06/12/2015 Patient Education: Patient Medication Summary Completed 06/12/2015 Referral: Soy Garcia WPtel: [address] [id number] [facility] Schedule patient around lunch time and 3 weeks from 04/22/2015 ~sl Spoke with Kiesha at Dr[facility] Sandoval [facility] and 04/24/15 and scheduled the patient ~sl 04/24/15 Patient is informed~sl 06/03 Patient canceled the appointment ~ sl Patient did not show up for scheduled appointment-sp Appoint ment Requested 05/21/2015 Appointment: Alexandra Carroll WPtel: [address] [place], [place] [phone] UA 05/05/2015 Patient Education: Patient Medication Summary Completed 05/05/2015 Visit Plan: Starts PT today Schedule wit h Dr. Garcia for epidural CT abdomen/pelvis results discussed Sees [facility] in April and will get checked then 04/22/2015 Appointment: Alexandra Carroll WPtel: [address] [place] [address] 04/21 confirmed~lb ACUTE ILLNESS 04/22/2015 Patient Education: Patient Medication Summary Completed 04/22/2015 Referral: Lincoln Hernandez WPtel: [address] [place] [address] Referral Initiated 04/10/2015 Patient Education: Patient Medication Summary Completed 04/09/2015 Visit Plan: Start with lumosacral spine x-ray--will likely need MRI of L/S spine x-ray Needs urology--has had to have bladder stretched in past Tivorbex 03/24/2015 Appointment: Alexandra Carroll WPtel: [address] [place], [place] [phone] 03/21/15 appt confirmed cn ACUTE ILLNESS 03/24 Patient Education: Patient Medication Summary Completed 03/24/2015 Visit Plan: Saline nasal flushes prn. Ty lenol/Motrin prn headache. Notify if persists/symptoms worsening. Cefuroxime to cover both sinuses and UTI Culture urine Check lab 02/27/2015 Appointment: Alexandra Carroll WPtel: [address] [place], [place] [phone] 02/26/15 vm to confirm and need new insu meri on file is inactive cn....02/27/15 appt confirmed cn ACUTE ILLNESS 015 Patient Education: Patient Medication Summary Completed 02/27/2015 Visit Plan: Lab discussed Stop simvastat in Check lipids in 6mos Continue all other meds at current dose Had Pap and Mammo 3 weeks ago 06/13/2014 Appointment: Alexandra Carroll WPtel: [address] [place] [address] Annual Well Visit 06/13/2014 Patient Education: Patient Medication Summary Completed 06/13/2014 Appointment: Shalini Walters WPtel: [address] [place] [address] ACUTE ILLNESS 04/18/2014 Patient Education: Patient Medication Summary Completed 04/18/2014 Visit Plan: Check lab in May then fwup Can try decreasing xanax to 1mg q HS with melatonin 5-10mg q HS 12/05/2013 Appointment: Alexandra Craroll WPtel: [address] [place] [address] 12/04 FOLLOW UP 12/05/2013 Patient Education: Patient Medication Summary Completed 12/05/2013 Appointment: Alexandra Carroll WPtel: [address] [place] [address] FOLLOW UP 06/05/2013 Patient Education: Patient Medication Summary Completed 06/05/2013 Appointment: Alexandra Carroll WPtel: [address] [place] [address] FOLLOW UP 05/22/2013 Patient Education: Patient Medication Summary Completed 05/22/2013 Visit Plan: Zovirax for 2wks Notify if p ain worsens or if persists 04/05/2013 Appointment: Alexandra Carroll WPtel: [address] [place] [address] ACUTE ILLNESS 04/05/2013 Patient Education: Patient Medication Summary Completed 04/05/2013 Visit Plan: Keep Wellbutrin at current d ose Pt did see for counseling 03/26/2013 Appointment: Alexandra Carroll WPtel: [address] [place] [address] ACUTE ILLNESS 03/26/2013 Patient Education: Patient Medication Summary Completed 03/26/2013 Visit Plan: Continue citalopram at curre nt dose Increase xanax to 1-2mg q HS for sleep Add Wellbutrin Sr 100mg q AM Start Counseling 03/06/2013 Appointment: Alexandra Carroll WPtel: [address] [place] [address] ACUTE ILLNESS 03/06/2013 Patient Education: Patient Medication Summary Completed 03/06/2013 Appointment: Alexandra Carroll WPtel: [address] [place] [address] ACUTE ILLNESS 11/29/2012 Patient Education: Patient Medication Summary Completed 11/29/2012 Appointment: Alexandra Carroll WPtel: [address] [place] [address] ACUTE ILLNESS 09/26/2012 Patient Education: Patient Medication Summary Completed 09/26/2012 Appointment: Alexandra Carroll WPtel: [address] [place] [address] ACUTE ILLNESS 07/11/2012 Patient Education: Patient Medication Summary Completed 07/11/2012 Appointment: Alexandra Carroll WPtel: [address] [place] [address] LAB 02/17/2012 Patient Education: Patient Medication Summary Completed 02/17/2012 Visit Plan: Check fasting lab Start annie y ca with Vit D Cont CPAP Mammo up-to-date Hemoccult card given 02/02/2012 Appointment: Alexandra Carroll WPtel: [address] [place] [address] PHYSICAL 02/02/2012 Patient Education: Patient Medication Summary Completed 02/02/2012 Appointment: Alexandra Carroll WPtel: [address] [place] [address] UA 08/27/2011 Patient Education: Patient Medication Summary Completed 08/27/2011 Visit Plan: Levaquin and Diflucan for 1w k Then cipro QOD for prophylaxis 08/17/2011 Appointment: Alexandra Carroll WPtel: [address] [place] [address] FOLLOW UP 08/17/2011 Patient Education: Patient Medication Summary Completed 08/17/2011 Appointment: Alexandra Carroll WPtel: [address] [place] [address] UA 12/28/2010 Patient Education: Patient Medication Summary Completed 12/28/2010 Appointment: Alexandra Carroll WPtel: [address] [place] [address] 11/09/2010 Patient Education: Patient Medication Summary Completed 11/09/2010 Appointment: Alexandra Carroll WPtel: [address] [place] [address] UA 10/29/2010 Patient Education: Patient Medication Summary Completed 10/29/2010 Appointment: Steph Bowen WPtel: [address] [place] [address] ACUTE ILLNESS 10/14/2010 Patient Education: Patient Medication Summary Completed 10/14/2010 Referral: Florian Baig WPtel: [facility] [place] [address] [id number] [place] Referral Initiated Referral: Paulo Albert WPtel: [address] [id number] [place] Referral Appointment Requested Referral: Luis Enrique Jasso WPtel: [facility] [address], [facility] 1 [id number] [place] Referral Appointment Requested Referral: Florian Baig WPtel: [facility] [address] 1 [id number] [place] Referral Appointment Requested Referral: Caleb Glaser WPtel: [address] [id number] [place] Referral Appointment Requested Referral: Florian Baig WPtel: [facility] [address], [facility] 1 [id number] Referral Initiated Referral: Florian Baig WPtel: [facility] [address], [address] Referral Appointment Requested Instructions Comment . [...] agrees with this trial. Rx called to [facility] after cost comparison which is nearly the same robert. If working well, continue the d2bekho office visits. Call if not working well, and will restart xanax at HS for sleep. . Removal of lesion above using 3-0 punc h biopsy Return in 10 days for suture removal . Starts PT today Schedule with Dr. 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 Continue citalopram at current [...]
--- OUTSIDE RECORDS SUMMARY | 2019-09-02 00:10 | XMS REPORT | CCD ---
Author Author Ilda Bowen APRN Organization [facility] Address [address] [place] [address] Phone Care Team Providers Care Publicity Director Name Role Phone Alexandra Carroll D.O., PP Unavailable CCM Unavailable Summary Purpose Interface Exchange Insurance Providers Payer name Policy type / Coverage type Covered constitution party ID Effective Begin Date Effective End Date WPS MEDICARE PART B [place] Medicare Part B [id number] 2019 Unknown [employer] [place] Medicare Part B [id number] Unknown Family History Family History data not found Social History Social History Element Codes Description Effective Dates Tobacco history SNOMED CT: 542422225 Nonsmoker 10/14/2010 Allergies, Adverse Reactions, Alerts Substance Reaction Codes Entered Date Inactivated Date Status MORPHINE SULFATE RxNorm: 0303672 10/14/2010 No Inactive Da te Active CEPHALOSPORINS [...] Fill Instructions Macrobid 100 mg capsule RxNorm: 251412 1 Capsule(s) Oral two ti mes a day 07/30/2019 08/09/2019 Inactive Macrobid 100 mg capsule RxNorm: 373750 1 Capsule(s) Oral two ti mes a day 07/30/2019 07/29/2019 Inactive cyclobenzaprine 10 mg tablet RxNorm: 109684 Tablet(s) Oral as neede d 07/17/2019 No Stop Date Active Cipro 500 mg tablet RxNorm: 803071 1 Tablet(s) Oral two times a day 07/17/2019 07/22/2019 Inactive Xanax 1 mg tablet RxNorm: 833426 1-2 Tablet(s) Oral e very night at bedtime as needed for sleep 07/10/2019 08/08/2019 Inactive Generic For:LAVELLE AX 1MG 10/11/2016 11:15:13 AM prednisone 20 mg tablet RxNorm: 634533 1 Tablet(s) Oral two harlan es a day 06/26/2019 07/03/2019 Inactive Amabelz 1 mg-0.5 mg tablet RxNorm: 7054770 1 Tablet(s) Oral QD 05/3007/17/2019 Inactive Trazadone 150 mg Tablet RxNorm: 1 Tablet(s) Oral every n ight at bedtime 05/14/2019 No Stop Date Active Levaquin 500 mg tablet RxNorm: 597215 1 Tablet(s) Oral QD 05/14/2019 05/21/2019 Inactive Xanax 1 mg tablet RxNorm: 347890 1-2 Tablet(s) Oral e very night at bedtime as needed for sleep 05/03/2019 06/01/2019 Inactive Generic For:LAVELLE AX 1MG 10/11/2016 11:15:13 AM cyclobenzaprine 10 mg tablet RxNorm: 832757 1 Tablet(s) Oral three times a day as needed for muscle spasm 02/12/2019 02/12/2019 Inactive Xanax 1 mg tablet RxNorm: 217859 1-2 Tablet(s) Oral e very night at bedtime as needed for sleep 02/09/2019 03/10/2019 Inactive Generic For:LAVELLE AX 1MG 10/11/2016 11:15:13 AM Xanax 1 mg tablet RxNorm: 481528 1-2 Tablet(s) Oral e very night at bedtime as needed for sleep 01/22/2019 02/08/2019 Inactive Generic For:LAVELLE AX 1MG 10/11/2016 11:15:13 AM Celexa 40 mg tablet RxNorm: 787231 1 Tablet(s) Oral QD 01/17/2019 Active - First Attempt Ref: [id number] Xanax 1 mg tablet RxNorm: 352570 1 Tablet(s) Oral every night a t bedtime 01/08/2019 01/21/2019 Inactive levothyroxine 88 mcg tablet RxNorm: 043088 TAKE 1 TABLET BY NINA TH DAILY 12/19/2018 06/16/2019 Inactive - First Attempt Ref: [id number] Xanax 1 mg tablet RxNorm: 416195 1 Tablet(s) Oral every night a t bedtime 12/06/2018 01/05/2019 Inactive Singulair 10 mg tablet RxNorm: 696671 1 Tablet(s) Oral every ni ght at bedtime 11/23/2018 11/17/2019 Active - First Attempt Ref: [id number] Celexa 40 mg tablet RxNorm: 689993 1 Tablet(s) Oral 11/23/20182018 Inactive - First Attempt Ref: [id number] cyclobenzaprine 10 mg tablet RxNorm: 089674 1 Tablet(s) Oral three times a day as needed for muscle spasm 11/23/2018 02/11/2019 Inactive Xanax 1 mg tablet RxNorm: 045769 1 Tablet(s) PO QHS 11/06/20182018 Inactive Xanax 1 mg tablet RxNorm: 476117 1 Tablet(s) PO QHS 09/26/20182018 Inactive Singulair 10 mg tablet RxNorm: 918881 TAKE 1 TABLET BY MOUTH EVERY NIGHT AT BEDTIME 08/16/2018 11/22/2018 Inactive - First Attempt Ref: [id number] Xanax 1 mg tablet RxNorm: 307285 1 Tablet(s) PO QHS 08/01/20182018 Inactive levothyroxine 88 mcg tablet RxNorm: 665699 TAKE 1 TABLET BY NINA TH DAILY 07/31/2018 12/18/2018 Inactive - First Attempt Ref: [id number] Celexa 40 mg tablet RxNorm: 077663 TAKE 1 TABLET BY MOUTH DAILY 04/201811/22/2018 Inactive - First Attempt Ref: [id number] 54 bupropion HCl SR 100 mg tablet,12 hr sustained-release RxNor m: 897458 1 Tablet(s) PO BID 07/12/2018 07/06/2019 Inactive - Ref: [id number] 7 Claritin-D 24 Hour 10 mg-240 mg tablet,extended release RxNo rm: 7169162 1 Tablet(s) PO QD 06/29/2018 2018 Inactive Claritin-D 24 Hour 10 mg-240 mg tablet,extended release RxNo rm: 5814596 1 Tablet(s) PO QD 06/29/2018 2018 Inactive Xanax 1 mg tablet RxNorm: 087597 1-2 Tablet(s) PO QHS as needed for sleep 05/26/2018 06/23/2018 Inactive Generic For:XANAX 1M G 10/11/2016 11:15:13 AM Xanax 1 mg tablet RxNorm: 723506 1-2 Tablet(s) PO QHS as needed for sleep 03/28/2018 05/25/2018 Inactive Generic For:XANAX 1M G 10/11/2016 11:15:13 AM Macrobid 100 mg capsule RxNorm: 189592 1 Capsule(s) PO BID 03/27/1903/31/2018 Inactive gabapentin 300 mg capsule RxNorm: 397518 1 Capsule(s) PO QHS 201703/26/2018 Inactive Claritin-D 24 Hour 10 mg-240 mg tablet,extended release RxNo rm: 9248058 1 Tablet(s) PO QD 01/26/2018 02/24/2018 Inactive gabapentin 100 mg capsule RxNorm: 471653 1 Capsule(s) P O QHS for 1 week then 2 po q HS for 2 weeks then 3 po q HS 01/24/2018 03/26/2018 Inactive Xanax 1 mg tablet RxNorm: 331965 1-2 Tablet(s) PO QHS as needed for sleep 01/24/2018 03/24/2018 Inactive Generic For:XANAX 1M G 10/11/2016 11:15:13 AM prednisone 20 mg tablet RxNorm: 101010 1 Tablet(s) PO T ID for 3 days then 1 po BID for 3 days then one daily for 3 days 12/29/2017 03/26/2018 Inactiv e prednisone 20 mg tablet RxNorm: 422436 3 Tablet(s) PO T ID for 3 days then 1 po BID for 3 days then one daily for 3 days 12/29/2017 12/29/2017 Inactiv e Macrobid 100 mg capsule RxNorm: 012641 1 Capsule(s) PO BID 12/30/19 18 01/02/2018 Inactive Xanax 1 mg tablet RxNorm: 892634 1-2 Tablet(s) PO QHS as needed for sleep 12/28/2017 01/23/2018 Inactive Generic For:XANAX 1M G 10/11/2016 11:15:13 AM Medrol (Walter) 4 mg tablets in a dose pack RxNorm: 043937 Tablet(s) PO take as directed 12/01/2017 03/26/2018 Inactive Keflex 750 mg capsule RxNorm: 613232 1 Capsule(s) PO BID 12/01/2017 1 Inactive clindamycin HCl 300 mg capsule RxNorm: 945996 2 Capsule(s) PO TID 1 12/08/2017 Inactive Xanax 1 mg tablet RxNorm: 044330 1-2 Tablet(s) PO QHS as needed for sleep 11/28/2017 12/27/2017 Inactive Generic For:XANAX 1M G 10/11/2016 11:15:13 AM mupirocin 2 % topical ointment RxNorm: 074394 1 Application OTIC BI D 11/28/2017 08/09/2018 Inactive Xanax 1 mg tablet RxNorm: 783868 1-2 Tablet(s) PO QHS as needed for sleep 10/27/2017 11/25/2017 Inactive Generic For:XANAX 1M G 10/11/2016 11:15:13 AM Macrobid 100 mg capsule RxNorm: 345644 1 Capsule(s) PO BID 10/11/19 18 10/16/2017 Inactive Medrol (Walter) 4 mg tablets in a dose pack RxNorm: 576610 Tablet(s) PO take as directed 10/10/2017 11/16/2017 Inactive Xanax 1 mg tablet RxNorm: 117749 1-2 Tablet(s) PO QHS as needed for sleep 09/28/2017 10/26/2017 Inactive Generic For:XANAX 1M G 10/11/2016 11:15:13 AM Xanax 1 mg tablet RxNorm: 784419 1-2 Tablet(s) PO QHS as needed for sleep 08/30/2017 09/27/2017 Inactive Generic For:XANAX 1M G 10/11/2016 11:15:13 AM Xanax 1 mg tablet RxNorm: 743538 1-2 Tablet(s) PO QHS as needed for sleep 08/30/2017 08/29/2017 Inactive Generic For:XANAX 1M G 10/11/2016 11:15:13 AM Xanax 1 mg tablet RxNorm: 958142 1-2 Tablet(s) PO QHS as needed for sleep 08/01/2017 08/29/2017 Inactive Generic For:XANAX 1M G 10/11/2016 11:15:13 AM Xanax 1 mg tablet RxNorm: 433995 1-2 Tablet(s) PO QHS as needed for sleep 06/29/2017 2017 Inactive Generic For:XANAX 1M G 10/11/2016 11:15:13 AM Claritin-D 24 Hour 10 mg-240 mg tablet,extended release RxNo rm: 6943781 1 Tablet(s) PO QD 06/29/2017 2017 Inactive levothyroxine 88 mcg tablet RxNorm: 388938 1 Tablet(s) PO QD 201709/10/2017 Inactive Xanax 1 mg tablet RxNorm: 201403 1-2 Tablet(s) PO QHS as needed for sleep 05/26/2017 06/28/2017 Inactive Generic For:XANAX 1M G 10/11/2016 11:15:13 AM Claritin-D 24 Hour 10 mg-240 mg tablet,extended release RxNo rm: 6871953 1 Tablet(s) PO QD 05/26/2017 06/24/2017 Inactive bupropion HCl SR 100 mg tablet,12 hr sustained-release RxNor m: 845888 Tablet(s) Take 1 tablet by mouth two times daily 04/06/2017 12/31/2017 Inactive - Ref: [id number] Xanax 1 mg tablet RxNorm: 528783 1-2 Tablet(s) PO QHS as needed for sleep 03/24/2017 05/22/2017 Inactive Generic For:XANAX 1M G 10/11/2016 11:15:13 AM Medrol (Walter) 4 mg tablets in a dose pack RxNorm: 579867 Tablet(s) P O 02/16/2017 03/27/2017 Inactive Xanax 1 mg tablet RxNorm: 805911 Tablet(s) TAKE ONE T O TWO TABLETS BY MOUTH AT BEDTIME NEEDED 02/16/2017 03/17/2017 Inactive Generic For:XA NAX 1MG 10/11/2016 11:15:13 AM Claritin-D 24 Hour 10 mg-240 mg tablet,extended release RxNo rm: 9688546 1 Tablet(s) PO QD 02/16/2017 04/16/2017 Inactive cefdinir 300 mg capsule RxNorm: 030975 2 Capsule(s) PO QD 02/16/2017 02/25/2017 Inactive Celexa 40 mg tablet RxNorm: 376643 Tablet(s) Take 1 tablet by m outh daily 12/23/2016 09/18/2017 Inactive - Ref: [id number] Xanax 1 mg tablet RxNorm: 480351 Tablet(s) TAKE ONE T O TWO TABLETS BY MOUTH AT BEDTIME NEEDED 12/16/2016 01/14/2017 Inactive Generic For:XA NAX 1MG 10/11/2016 11:15:13 AM Xanax 1 mg tablet RxNorm: 055074 Tablet(s) TAKE ONE T O TWO TABLETS BY MOUTH AT BEDTIME NEEDED 11/18/2016 12/15/2016 Inactive Generic For:XA NAX 1MG 10/11/2016 11:15:13 AM Xanax 1 mg tablet RxNorm: 775011 TAKE ONE TO TWO TABL ETS BY MOUTH AT BEDTIME NEEDED 10/11/2016 11/17/2016 Inactive Generic For:XANA X 1MG 10/11/2016 11:15:13 AM Mobic 15 mg tablet RxNorm: 497688 1 Tablet(s) PO QD 09/06/20162016 Inactive Claritin-D 24 Hour 10 mg-240 mg tablet,extended release RxNo rm: 4602361 1 Tablet(s) PO QD 09/02/2016 11/30/2016 Inactive prednisone 20 mg tablet RxNorm: 164673 1 Tablet(s) PO T ID for 3 days then 1 po BID for 3 days then one daily for 3 days 08/16/2016 03/27/2017 Inactiv e cefdinir 300 mg capsule RxNorm: 971697 2 Capsule(s) PO QD 08/16/2016 09/05/2016 Inactive Xanax 1 mg tablet RxNorm: 384602 TAKE ONE TO TWO TABL ETS BY MOUTH AT BEDTIME NEEDED 08/05/2016 10/11/2016 Inactive Generic For:XANA X 1MG 08/05/2016 2:27:03 PM08/04/2016 4:15:22 PM Singulair 10 mg tablet RxNorm: 068602 1 Tablet(s) PO QHS 07/06/2016 0 09/03/2016 Inactive prednisone 20 mg tablet RxNorm: 609819 1 Tablet(s) PO T ID for 3 days then 1 po BID for 3 days then one daily for 3 days 06/15/2016 07/05/2016 Inactiv e Singulair 10 mg tablet RxNorm: 439825 1 Tablet(s) PO QHS 06/15/2016 0 07/05/2016 Inactive cefdinir 300 mg capsule RxNorm: 418535 2 Capsule(s) PO QD 06/15/2016 07/05/2016 Inactive Xanax 1 mg tablet RxNorm: 467476 1-2 Tablet(s) PO QHS 05/21/201610/2016 Inactive Claritin-D 24 Hour 10 mg-240 mg tablet,extended release RxNo rm: 0825636 1 Tablet(s) PO QD 04/09/2016 07/07/2016 Inactive Xanax 1 mg tablet RxNorm: 841859 1-2 Tablet(s) PO QHS 03/23/201604/29 Inactive levothyroxine 88 mcg tablet RxNorm: 199824 1 Tablet(s) PO QD 201606/13/2017 Inactive bupropion HCl SR 100 mg tablet,sustained-release RxNorm: 993 503 Take 1 tablet by mouth two times daily 03/15/2016 12/09/2016 Inactive - Ref: 20 [id number] Celexa 40 mg tablet RxNorm: 599410 Take 1 tablet by mouth daily 12/23/2016 Inactive - Ref: [id number] Xanax 1 mg tablet RxNorm: 694318 1-2 Tablet(s) PO QHS 02/17/201603/01 Inactive levothyroxine 88 mcg tablet RxNorm: 227833 1 Tablet(s) PO QD 201502/22/2016 Inactive Xanax 1 mg tablet RxNorm: 806621 1-2 Tablet(s) PO QHS 11/25/201511/29 Inactive levothyroxine 88 mcg tablet RxNorm: 316457 1 Tablet(s) PO QD 201511/24/2015 Inactive temazepam 30 mg capsule RxNorm: 017725 1 Capsule(s) PO QHS 11/13/19 16 11/24/2015 Inactive Xanax 1 mg tablet RxNorm: 510974 1-2 Tablet(s) PO QHS 09/15/201510/29 Inactive Celexa 40 mg tablet RxNorm: 329938 1 Tablet(s) PO QD 1 Tablet(s ) PO QD 09/10/2015 09/16/2015 Inactive bupropion HCl SR 100 mg tablet,sustained-release RxNorm: 993 503 1 Tablet(s) PO BID 09/10/2015 09/23/2015 Inactive Xanax 1 mg tablet RxNorm: 945039 1-2 Tablet(s) PO QHS 09/10/201508/28 Inactive Xanax 1 mg tablet RxNorm: 303037 1-2 Tablet(s) PO QHS 08/11/201508/28 Inactive cyclobenzaprine 10 mg tablet RxNorm: 122317 1 Tablet(s) PO TID prn spasm 07/09/2015 11/23/2018 Inactive Celexa 40 mg tablet RxNorm: 713123 1 Tablet(s) PO QD 06/06/201508/03 Inactive Xanax 1 mg tablet RxNorm: 479697 1-2 Tablet(s) PO QHS 06/04/201505/2015 Inactive levothyroxine 88 mcg tablet RxNorm: 577070 1 Tablet(s) PO QD 201511/23/2015 Inactive Ceftin 500 mg tablet RxNorm: 788568 1 Tablet(s) PO BID 05/05/2015 Inactive Ceftin 500 mg tablet RxNorm: 402184 1 Tablet(s) PO BID 05/05/201507/2015 Inactive meloxicam 15 mg tablet RxNorm: 711961 1 Tablet(s) PO QD 04/16/2015 Inactive meloxicam 15 mg tablet RxNorm: 081380 1 Tablet(s) PO QD 04/16/2015 Inactive diclofenac sodium 75 mg tablet,delayed release RxNorm: 88931 6 1 Tablet(s) PO BID 04/04/2015 04/15/2015 Inactive diclofenac sodium 75 mg tablet,delayed release RxNorm: 25888 6 1 Tablet(s) PO BID 04/04/2015 04/03/2015 Inactive Tivorbex 40 mg capsule RxNorm: 2048685 1 Capsule(s) PO TID 03/24/19 16 04/02/2015 Inactive bupropion HCl SR 100 mg tablet,sustained-release RxNorm: 993 503 1 Tablet(s) PO BID 03/11/2015 09/06/2015 Inactive cyclobenzaprine 10 mg tablet RxNorm: 680820 1 Tablet(s) PO TID prn spasm 03/11/2015 07/08/2015 Inactive levothyroxine 88 mcg tablet RxNorm: 538402 1 Tablet(s) PO QD 201405/27/2015 Inactive Claritin-D 24 Hour 10 mg-240 mg tablet,extended release RxNo rm: 4673807 1 Tablet(s) PO QD 02/27/2015 05/27/2015 Inactive cefuroxime axetil 500 mg tablet RxNorm: 342721 1 Tablet(s) PO BID 1 03/12/2015 Inactive Celexa 40 mg tablet RxNorm: 619605 1 Tablet(s) PO QD 02/05/201504/05 Inactive levothyroxine 75 mcg tablet RxNorm: 912971 1 Tablet(s) PO QD 201402/26/2015 Inactive Celexa 40 mg tablet RxNorm: 163276 1 Tablet(s) PO QD 10/09/201402/04 Inactive Activella 1 mg-0.5 mg tablet RxNorm: 3730644 1 Tablet(s) PO QD 08/2802/26/2015 Inactive bupropion HCl SR 100 mg tablet,sustained-release RxNorm: 993 503 1 Tablet(s) PO BID 09/12/2014 03/10/2015 Inactive levothyroxine 75 mcg tablet RxNorm: 546388 1 Tablet(s) PO QD 201412/09/2014 Inactive levothyroxine 75 mcg tablet RxNorm: 586440 1 Tablet(s) PO QD 201409/11/2014 Inactive Celexa 40 mg tablet RxNorm: 161351 1 Tablet(s) PO QD 08/12/201410/08 Inactive Xanax 1 mg tablet RxNorm: 808363 1-2 Tablet(s) PO QHS 08/12/201409/28 Inactive Claritin-D 24 Hour 10 mg-240 mg tablet,extended release RxNo rm: 7956845 1 Tablet(s) PO QD 06/13/2014 09/10/2014 Inactive cyclobenzaprine 10 mg tablet RxNorm: 076112 1 Tablet(s) PO TID prn spasm 06/12/2014 02/26/2015 Inactive Xanax 1 mg tablet RxNorm: 728556 1-2 Tablet(s) PO QHS 05/09/201406/28 Inactive levothyroxine 75 mcg tablet RxNorm: 666174 1 Tablet(s) PO QD 201407/08/2014 Inactive cephalexin 500 mg capsule RxNorm: 415603 1 Capsule(s) PO QOD 201402/26/2015 Inactive simvastatin 10 mg tablet RxNorm: 496420 1 Tablet(s) PO QHS 04/10/19 15 06/12/2014 Inactive Xanax 1 mg tablet RxNorm: 476293 1-2 Tablet(s) PO QHS 04/10/201404/28 Inactive levothyroxine 75 mcg tablet RxNorm: 123417 1 Tablet(s) PO QD 201404/09/2014 Inactive levothyroxine 75 mcg capsule RxNorm: 555299 1 Capsule(s) PO QD 03/3104/10/2014 Inactive Activella 1 mg-0.5 mg tablet RxNorm: 8232091 1 Tablet(s) PO QD 03/0109/11/2014 Inactive bupropion HCl SR 100 mg tablet,sustained-release RxNorm: 993 503 1 Tablet(s) PO BID 03/04/2014 08/30/2014 Inactive Activella 1 mg-0.5 mg tablet RxNorm: 3096111 1 Tablet(s) PO QD 01/2803/18/2014 Inactive levothyroxine 75 mcg capsule RxNorm: 585481 1 Capsule(s) PO QD 12/2904/08/2014 Inactive simvastatin 10 mg tablet RxNorm: 164596 1 Tablet(s) PO QHS 01/10/20 14 04/08/2014 Inactive cyclobenzaprine 10 mg tablet RxNorm: 758460 1 Tablet(s) PO TID prn spasm 01/09/2014 04/08/2014 Inactive Cipro 500 mg tablet RxNorm: 978299 1 Tablet(s) PO BID 12/25/201304/2013 Inactive Cipro 500 mg tablet RxNorm: 715191 1 Tablet(s) PO BID 12/25/201311/29 Inactive bupropion HCl SR 100 mg tablet,sustained-release RxNorm: 993 503 1 Tablet(s) PO QAM 12/11/2013 03/03/2014 Inactive cephalexin 500 mg capsule RxNorm: 753517 1 Capsule(s) PO QOD 201304/09/2014 Inactive Xanax 1 mg tablet RxNorm: 754765 1-2 Tablet(s) PO QHS 10/15/201310/29 Inactive simvastatin 10 mg tablet RxNorm: 524938 1 Tablet(s) PO QHS 10/11/19 14 01/07/2014 Inactive Celexa 40 mg tablet RxNorm: 271823 Tablet(s) PO TAKE 1 TABLET BY MOUTH ONCE DAILY. 09/18/2013 09/17/2013 Inactive Xanax 1 mg tablet RxNorm: 499145 1-2 Tablet(s) PO QHS 08/13/201308/28 Inactive simvastatin 10 mg tablet RxNorm: 100937 1 Tablet(s) PO QHS 07/12/19 14 10/08/2013 Inactive bupropion HCl SR 100 mg tablet,sustained-release RxNorm: 993 503 1 Tablet(s) PO QAM 05/22/2013 11/17/2013 Inactive Pamelor 10 mg capsule RxNorm: 947744 1 Capsule(s) PO QHS for PLATA /sleep 05/22/2013 06/04/2013 Inactive Xanax 1 mg tablet RxNorm: 516465 1-2 Tablet(s) PO QHS 05/15/201305/29 Inactive Pamelor 10 mg capsule RxNorm: 166455 1 Capsule(s) PO QHS for PLATA /sleep 05/15/2013 05/21/2013 Inactive Xanax 1 mg tablet RxNorm: 491328 1 Tablet(s) PO QHS 04/27/20132013 Inactive Zovirax 800 mg tablet RxNorm: 405431 1 Tablet(s) PO TID 04/05/2013 Inactive Xanax 1 mg tablet RxNorm: 851589 1 Tablet(s) PO QHS 04/03/2013 No Sto p Date Active bupropion HCl SR 100 mg tablet,sustained-release RxNorm: 993 503 1 Tablet(s) PO QAM 03/26/2013 05/21/2013 Inactive bupropion HCl SR 100 mg tablet,sustained-release RxNorm: 993 503 1 Tablet(s) PO QAM 03/06/2013 03/25/2013 Inactive Pamelor 10 mg capsule RxNorm: 484287 1 Capsule(s) PO QHS for PLATA /sleep 02/14/2013 05/14/2013 Inactive levothyroxine 75 mcg capsule RxNorm: 207218 1 Capsule(s) PO QD 12/2901/08/2014 Inactive simvastatin 10 mg tablet RxNorm: 405994 1 Tablet(s) PO QHS TAKE 1 TABLET BY MOUTH ONCE DAILY AT BEDTIME. 01/15/2013 07/10/2013 Inactive cyclobenzaprine 10 mg tablet RxNorm: 745183 1 Tablet(s) PO TID prn spasm 12/25/2012 06/22/2013 Inactive Pamelor 10 mg capsule RxNorm: 565396 1 Capsule(s) PO QHS for PLATA /sleep 11/29/2012 02/14/2013 Inactive Celexa 40 mg tablet RxNorm: 501168 Tablet(s) PO TAKE 1 TABLET BY MOUTH ONCE DAILY. 10/11/2012 09/17/2013 Inactive simvastatin 10 mg tablet RxNorm: 753587 Tablet(s) PO TA KE 1 TABLET BY MOUTH ONCE DAILY AT BEDTIME. 10/11/2012 01/14/2013 Inactive simvastatin 10 mg tablet RxNorm: 680873 1 Tablet(s) PO QD 07/11/2012 10/08/2012 Inactive simvastatin 10 mg tablet RxNorm: 056322 1 Tablet(s) PO QD 04/14/2012 07/11/2012 Inactive simvastatin 10 mg tablet RxNorm: 622653 1 Tablet(s) PO QD 04/14/2012 04/13/2012 Inactive Celexa 40 mg tablet RxNorm: 927301 1 Tablet(s) PO QD 03/15/201209/10 Inactive cyclobenzaprine 10 mg tablet RxNorm: 395680 1 Tablet(s) PO TID prn spasm 02/02/2012 02/01/2012 Inactive cyclobenzaprine 10 mg tablet RxNorm: 705764 1 Tablet(s) PO TID prn spasm 02/02/2012 07/30/2012 Inactive Diflucan 100 mg Tab RxNorm: 517519 1 Tablet(s) PO QD 08/17/201108/22 Inactive Cipro 250 mg Tab RxNorm: 783147 1 Tablet(s) PO QD 08/17/2011 10/15/19 12 Inactive Levaquin 500 mg Tab RxNorm: 765143 1 Tablet(s) PO QD 08/17/201108/22 Inactive Pyridium 200 mg Tab RxNorm: 3185986 1 Tablet(s) PO TID 10/14/2010 Inactive may turn urine orange-red color. Cipro 500 mg Tab RxNorm: 489300 1 Tablet(s) PO BID 10/14/2010 011 Inactive levothyroxine 75 mcg capsule RxNorm: 340183 1 Capsule(s) PO QD 12/3001/14/2011 Inactive Vitamin D3 5,000 unit tablet RxNorm: 634335 1 Tablet(s) PO QD No Star t Date Active Nasacort 55 mcg nasal spray aerosol RxNorm: 3142676 2 Sp ray NASAL each nostril QHS No Start Date Active cyclobenzaprine 10 mg tablet RxNorm: 648384 1 Tablet(s) PO TID as needed No Start Date 11/22/2018 Inactive Vitamin D2 1,000 unit capsule RxNorm: 394198 3 Capsule(s) PO QD No Start Date 11/16/2017 Inactive diclofenac sodium 75 mg tablet,delayed release RxNorm: 60660 6 1 Tablet(s) PO BID No Start Date 03/16/2016 Inactive cephalexin 500 mg capsule RxNorm: 839542 1 Capsule(s) PO QOD No Sta rt Date 12/04/2013 Inactive cyclobenzaprine 10 mg tablet RxNorm: 120972 1 Tablet(s) PO QHS No S tart Date 02/01/2012 Inactive loratadine 10 mg tablet RxNorm: 820954 1 Tablet(s) PO QHS No Start Date 05/14/2019 Inactive hydrocodone 5 mg-acetaminophen 500 mg tablet RxNorm: 295226 1 -2 Tablet(s) PO Q6H as needed No Start Date 08/09/2018 Inactive etodolac 400 mg tablet RxNorm: 142726 1 Tablet(s) PO TID No Start D ate 09/17/2018 Inactive Xanax 1 mg tablet RxNorm: 757735 1 Tablet(s) PO QHS No Start Date 04/2013 Inactive Vitamin D3 1,000 unit capsule RxNorm: 403819 1 Capsule(s) PO QD No Start Date 06/12/2014 Inactive estradiol 2 mg tablet RxNorm: 821735 1/2 Tablet(s) PO QD No Start D ate 03/05/2013 Inactive Celexa 40 mg tablet RxNorm: 780759 1 Tablet(s) PO QD No Start Date Inactive Activella 1 mg-0.5 mg tablet RxNorm: 5095941 1 Tablet(s) PO QD No S tart Date 07/10/2012 Inactive medroxyprogesterone 5 mg tablet RxNorm: 8543552 1/2 Tablet(s) PO QD No Start Date 03/05/2013 Inactive levothyroxine 88 mcg tablet RxNorm: 904604 1 Tablet(s) PO QD No Sta rt Date 02/26/2015 Inactive Keflex 500 mg capsule RxNorm: 132550 1 Capsule(s) PO PRN No Start D ate 08/16/2011 Inactive Activella 1 mg-0.5 mg tablet RxNorm: 0359759 1 Tablet(s) PO QHS No Start Date 03/27/2017 Inactive Activella 1 mg-0.5 mg tablet RxNorm: 8215890 1 Tablet(s) PO QD No S tart Date 02/06/2014 Inactive Flexeril 10 mg Tab RxNorm: 698636 1 Tablet(s) PO TID No Start Date Inactive prn spasm simvastatin 10 mg tablet RxNorm: 102545 1 Tablet(s) PO QD No Start Date 04/13/2012 Inactive Medication Administered No Medication Administered data Immunizations Vaccine Codes Date Status Influenza CVX: 135 01/16/2019 Complete Pneumococcal CVX: 133 01/16/2019 Complete Results No Results data Procedures Procedure Codes Date URINE CULTURE/ COLONY COUNT CPT-4: 86605 08/14/2019 URINE CULTURE/ COLONY COUNT CPT-4: 23066 07/26/2019 URINALYSIS NONAUTO W/O SCOPE CPT-4: 55843 07/17/2019 URINE CULTURE/ COLONY COUNT CPT-4: 08508 07/17/2019 DEXAMETHASONE SODIUM PHOS CPT-4: J1100 05/14/2019 THER/PROPH/DIAG INJ SC/IM CPT-4: 32281 05/14/2019 TRIAMCINOLONE ACET INJ NOS CPT-4: J3301 05/14/2019 FLU VACC PRSV FREE INC ANTIG 65 AND OLDER CPT-4: 04197 01/16/2019 FLU VACC PRSV FREE INC ANTIG 65 AND OLDER CPT-4: 65308 01/16/2019 PNEUMOCOCCAL VACC 13 NARESH IM CPT-4: 58919 01/16/2019 SKIN FUNGI CULTURE CPT-4: 45255 01/16/2019 IMMUNIZATION ADMIN CPT-4: 98449 01/16/2019 IMMUNIZATION ADMIN EACH ADD CPT-4: 22539 01/16/2019 THER/PROPH/DIAG INJ SC/IM CPT-4: 19678 01/17/2018 KETOROLAC TROMETHAMINE INJ CPT-4: J1885 01/17/2018 THER/PROPH/DIAG INJ SC/IM CPT-4: 45215 01/17/2018 PROMETHAZINE HCL INJECTION CPT-4: J2550 01/17/2018 URINALYSIS NONAUTO W/O SCOPE CPT-4: 87146 12/29/2017 URINE CULTURE/ COLONY COUNT CPT-4: 77499 12/29/2017 THER/PROPH/DIAG INJ SC/IM CPT-4: 37376 11/30/2017 TRIAMCINOLONE ACET INJ NOS CPT-4: J3301 11/30/2017 DEXAMETHASONE SODIUM PHOS CPT-4: J1100 11/30/2017 CEFTRIAXONE SODIUM INJECTION CPT-4: J0696 11/29/2017 THER/PROPH/DIAG INJ SC/IM CPT-4: 57807 11/29/2017 CEFTRIAXONE SODIUM INJECTION CPT-4: J0696 11/28/2017 THER/PROPH/DIAG INJ SC/IM CPT-4: 71213 11/28/2017 URINALYSIS NONAUTO W/O SCOPE CPT-4: 42150 10/10/2017 THER/PROPH/DIAG INJ SC/IM CPT-4: 02523 10/10/2017 TRIAMCINOLONE ACET INJ NOS CPT-4: J3301 10/10/2017 DEXAMETHASONE SODIUM PHOS CPT-4: J1100 10/10/2017 CEFTRIAXONE SODIUM INJECTION CPT-4: J0696 10/10/2017 THER/PROPH/DIAG INJ SC/IM CPT-4: 78222 10/10/2017 URINE CULTURE/ COLONY COUNT CPT-4: 18885 10/10/2017 THER/PROPH/DIAG INJ SC/IM CPT-4: 66522 11/02/2016 KETOROLAC TROMETHAMINE INJ CPT-4: J1885 11/02/2016 THER/PROPH/DIAG INJ SC/IM CPT-4: 37836 06/15/2016 TRIAMCINOLONE ACET INJ NOS CPT-4: J3301 06/15/2016 DEXAMETHASONE SODIUM PHOS CPT-4: J1100 06/15/2016 THER/PROPH/DIAG INJ SC/IM CPT-4: 93777 04/09/2016 KETOROLAC TROMETHAMINE INJ CPT-4: J1885 04/09/2016 PROMETHAZINE HCL INJECTION CPT-4: J2550 04/09/2016 EXC TR-EXT B9+ERASMO 0.5 CM< CPT-4: 60764 06/12/2015 URINALYSIS NONAUTO W/O SCOPE CPT-4: 30818 05/05/2015 URINE CULTURE/ COLONY COUNT CPT-4: 94073 05/05/2015 URINALYSIS NONAUTO W/O SCOPE CPT-4: 61074 03/24/2015 URINALYSIS NONAUTO W/O SCOPE CPT-4: 13683 02/27/2015 URINE CULTURE/ COLONY COUNT CPT-4: 65705 02/27/2015 THER/PROPH/DIAG INJ SC/IM CPT-4: 65393 04/18/2014 KETOROLAC TROMETHAMINE INJ CPT-4: J1885 04/18/2014 THER/PROPH/DIAG INJ SC/IM CPT-4: 22083 06/05/2013 TRIAMCINOLONE ACET INJ NOS CPT-4: J3301 06/05/2013 THER/PROPH/DIAG INJ SC/IM CPT-4: 06521 11/29/2012 KETOROLAC TROMETHAMINE INJ CPT-4: J1885 11/29/2012 URINALYSIS NONAUTO W/O SCOPE CPT-4: 76902 07/11/2012 URINE CULTURE/ COLONY COUNT CPT-4: 40868 07/11/2012 OCCULT BLOOD FECES CPT-4: 70470 02/17/2012 URINALYSIS NONAUTO W/O SCOPE CPT-4: 38143 08/27/2011 URINE CULTURE/ COLONY COUNT CPT-4: 60576 08/27/2011 URINALYSIS NONAUTO W/O SCOPE CPT-4: 90531 08/17/2011 URINE CULTURE/ COLONY COUNT CPT-4: 22609 08/17/2011 URINALYSIS NONAUTO W/O SCOPE CPT-4: 23187 12/28/2010 URINE CULTURE/ COLONY COUNT CPT-4: 78464 12/28/2010 URINALYSIS NONAUTO W/O SCOPE CPT-4: 22122 11/09/2010 URINE CULTURE/ COLONY COUNT CPT-4: 17144 11/09/2010 URINALYSIS NONAUTO W/O SCOPE CPT-4: 49222 10/29/2010 URINE CULTURE/ COLONY COUNT CPT-4: 48384 10/29/2010 URINE CULTURE/ COLONY COUNT CPT-4: 78890 10/14/2010 URINALYSIS NONAUTO W/O SCOPE CPT-4: 43835 10/14/2010 Vital Signs Date Vital 07/17/2019 Blood [...] 1: 122/74 Code: 8480-6 BMI: 22.0 Code: 42805-3 Heart Rate 1: 72 bpm Height: 5'3" [...] 1: 126/72 Code: 8480-6 BMI: 22.7 Code: 56228-1 Heart Rate 1: 72 bpm Height: 5'3" [...] 1: 112/70 Code: 8480-6 BMI: 22.0 Code: 85298-0 Heart Rate 1: 80 bpm Height: 5'3" [...] 1: 122/64 Code: 8480-6 BMI: 21.4 Code: 55919-2 Heart Rate 1: 88 bpm Height: 5'3" Respiratory Rate: 22 bpm SpO2: 96% Tempera ture: 36.8 (C) / 98.2 (F) Weight: 121 lbs 06/22/2017 Blood Pressure 1: 124/78 Code: 8480-6 BMI: 21.6 Code: 98341-0 Heart Rate 1: 76 bpm Height: 5'3" Respiratory Rate: 20 bpm Temperature: 36 .8 (C) / 98.3 (F) Weight: 122 lbs 03/28/2017 Blood Pressure 1: 92/60 Code: 8480-6 BMI: 20.4 C ode: 79104-6 Heart Rate 1: 72 bpm Height: 5'3" Respiratory Rate: 20 bpm Temperature: 36 .9 (C) / 98.4 (F) Weight: 115 lbs 02/16/2017 Blood Pressure 1: 106/70 Code: 8480-6 BMI: 21.3 Code: 39149-4 Heart Rate 1: 82 bpm Height: 5'3" Respiratory Rate: 22 bpm SpO2: 97% Tempera ture: 36.1 (C) / 97.0 (F) Weight: 120 lbs 09/06/2016 Blood Pressure 1: 118/64 Code: 8480-6 BMI: 22.7 Code: 01068-7 Heart Rate 1: 78 bpm Height: 5'3" Respiratory Rate: 20 bpm SpO2: 98% Tempera ture: 36.2 (C) / 97.2 (F) Weight: 128 lbs 08/16/2016 Blood Pressure 1: 118/78 Code: 8480-6 BMI: 22.1 Code: 32885-4 Heart Rate 1: 78 bpm Height: 5'3" Respiratory Rate: 20 bpm SpO2: 97% Tempera ture: 36.2 (C) / 97.1 (F) Weight: 125 lbs 07/19/2016 Blood Pressure 1: 116/68 Code: 8480-6 BMI: 22.5 Code: 71841-6 Heart Rate 1: 76 bpm Height: 5'3" Respiratory Rate: 20 bpm Temperature: 36 .8 (C) / 98.2 (F) Weight: 127 lbs 07/06/2016 Blood Pressure 1: 106/70 Code: 8480-6 BMI: 22.5 Code: 65147-4 Heart Rate 1: 72 bpm Height: 5'3" Respiratory Rate: 20 bpm SpO2: 97% Tempera ture: 36.8 (C) / 98.2 (F) Weight: 127 lbs 06/15/2016 Blood Pressure 1: 136/76 Code: 8480-6 BMI: 22.9 Code: 53187-6 Heart Rate 1: 74 bpm Height: 5'3" Respiratory Rate: 18 bpm SpO2: 98% Tempera ture: 36.4 (C) / 97.6 (F) Weight: 129 lbs 04/09/2016 Blood Pressure 1: 124/78 Code: 8480-6 BMI: 23.0 Code: 84365-2 Heart Rate 1: 86 bpm Height: 5'3" Respiratory Rate: 20 bpm SpO2: 96% Tempera ture: 36.5 (C) / 97.7 (F) Weight: 130 lbs 03/17/2016 Blood Pressure 1: 116 Code: 8480-6 BMI: 23.4 Code: 80326-3 Heart Rate 1: 84 bpm Height: 5'3" Respiratory Rate: 20 bpm SpO2: 97% Tempera ture: 36.8 (C) / 98.3 (F) Weight: 132 lbs 11/13/2015 Blood Pressure 1: 12478 Code: 8480-6 BMI: 23.4 Code: 65253-8 Heart Rate 1: 88 bpm Height: 5'3" Respiratory Rate: 24 bpm SpO2: 98% Tempera ture: 36.8 (C) / 98.2 (F) Weight: 132 lbs 06/12/2015 Blood Pressure 1: 126/78 Code: 8480-6 BMI: 23.6 Code: 23803-0 Heart Rate 1: 80 bpm Height: 5'3" Respiratory Rate: 20 bpm Temperature: 36 .9 (C) / 98.4 (F) Weight: 133 lbs 04/22/2015 Blood Pressure 1: 126/68 Code: 8480-6 BMI: 23.6 Code: 35116-5 Heart Rate 1: 80 bpm Height: 5'3" Respiratory Rate: 20 bpm Temperature: 36 .6 (C) / 97.9 (F) Weight: 133 lbs 03/24/2015 Blood Pressure 1: 116/66 Code: 8480-6 BMI: 22.9 Code: 27548-3 Heart Rate 1: 74 bpm Height: 5'3" Respiratory Rate: 20 bpm Temperature: 36 .4 (C) / 97.6 (F) Weight: 129 lbs 02/27/2015 Blood Pressure 1: 106/64 Code: 8480-6 BMI: 22.7 Code: 43496-1 Heart Rate 1: 74 bpm Height: 5'3" Respiratory Rate: 20 bpm Temperature: 36 .8 (C) / 98.2 (F) Weight: 128 lbs 06/13/2014 Blood Pressure 1: 104/66 Code: 8480-6 BMI: 22.7 Code: 93711-7 Heart Rate 1: 84 bpm Height: 5'3" Respiratory Rate: 20 bpm Temperature: 37 .0 (C) / 98.6 (F) Weight: 128 lbs 04/18/2014 Blood Pressure 1: 112/62 Code: 8480-6 BMI: 22.0 Code: 94452-8 Heart Rate 1: 82 bpm Height: 5'3" Respiratory Rate: 18 bpm Temperature: 36 .4 (C) / 97.6 (F) Weight: 124 lbs 12/05/2013 Blood Pressure 1: 106/70 Code: 8480-6 BMI: 23.7 Code: 24249-5 Heart Rate 1: 84 bpm Height: 5'3" [...] 1: 126/88 Code: 8480-6 BMI: 22.3 Code: 85033-3 Heart Rate 1: 96 bpm Height: 5'4" Respiratory Rate: 20 bpm Temperature: 37 .7 (C) / 99.9 (F) Weight: 130 lbs 11/29/2012 Blood Pressure 1: 122/76 Code: 8480-6 BMI: 23.0 Code: 57248-9 Heart Rate 1: 84 bpm Height: 5'4" Respiratory Rate: 20 bpm Temperature: 36 .9 (C) / 98.4 (F) Weight: 134 lbs 09/26/2012 Blood Pressure 1: 114/76 Code: 8480-6 BMI: 23.0 Code: 78658-9 Heart Rate 1: 84 bpm Height: 5'4" Respiratory Rate: 20 bpm Temperature: 37 .3 (C) / 99.1 (F) Weight: 134 lbs 07/11/2012 Blood Pressure 1: 126/78 Code: 8480-6 BMI: 23.7 Code: 08690-5 Heart Rate 1: 76 bpm Height: 5'4" Respiratory Rate: 20 bpm Temperature: 37 .1 (C) / 98.7 (F) Weight: 138 lbs 02/02/2012 Blood Pressure 1: 108/70 Code: 8480-6 BMI: 23.2 Code: 30321-4 Heart Rate 1: 88 bpm Height: 5'4" Respiratory Rate: 20 bpm Temperature: 36 .4 (C) / 97.6 (F) Weight: 135 lbs 08/17/2011 Blood Pressure 1: 108/70 Code: 8480-6 BMI: 23.2 Code: 53157-8 Heart Rate 1: 72 bpm Height: 5'4" Respiratory Rate: 20 bpm Temperature: 36 .8 (C) / 98.2 (F) Weight: 135 lbs 10/14/2010 Blood Pressure 1: 120/72 Code: 8480-6 BMI: 23.4 Code: 15866-2 Heart Rate 1: 78 bpm Height: 5'3" [...] Urinary tract infection[ICD10: N39.0] Alexandra CARROLL DO [employer] CPT-4: 43855 08/14/2019 ([id number]) NURSE/OUTPATIENT VISIT EST Diagnosis: Urinary tract infection[ICD10: N39.0] Alexandra CARROLL DO [employer] CPT-4: 93885 07/26/2019 ([id number]) OFFICE/OUTPATIENT VISIT EST Diagnosis: Urinary tract infection, site not specified[ICD10: N39.0] Diagnosis: Dysuria[ICD10: R30.0] Vandana Patricksasha CARROLL DO [employer] CPT-4: 10695 07/17/2019 ([id number]) OFFICE/OUTPATIENT VISIT EST Diagnosis: Allergic dermatitis[ICD10: L23.9] Alexandra CARROLL DO [employer] CPT-4: 10875 06/26/2019 ([id number]) OFFICE/OUTPATIENT VISIT EST Diagnosis: Contact dermatitis due to plant[ICD10: L25.5] Diagnosis: Cellulitis of left arm[ICD10: L03.114] [facility]: 66128 05/14/2019 ([id number]) OFFICE/OUTPATIENT VISIT EST Diagnosis: Ventral hernia[ICD10: K43.9] Diagnosis: Incisional hernia[ICD10: K43.2] [facility] CPT-[facility]: 20139 04/10/2019 ([id number]) OFFICE/OUTPATIENT VISIT EST Diagnosis: Insomnia[ICD10: G47.00] Diagnosis: Thrombocytosis[ICD10: D47.3] [facility] CPT-[facility]: 19398 02/14/2019 ([id number]) OFFICE/OUTPATIENT VISIT EST Diagnosis: Small bowel obstruction[ICD10: K56.609] Diagnosis: FLU VACCINE[ICD10: Z23] Diagnosis: PNEUMOCOCCAL VACCINE[ICD10: Z23] Diagnosis: Onychomycosis[ICD10: B35.1] Alexandra SHAFFERLINE Ty KUNZ [facility] CPT-4: 55087 01/16/2019 ([id number]) OFFICE/OUTPATIENT VISIT EST Diagnosis: Diarrhea, unspecified[ICD10: R19.7] Diagnosis: Radiculopathy, lumbosacral region[ICD10: M54.17] [facility] CPT-[facility]: 71125 09/18/2018 OFFICE/OUTPATIENT VISIT EST Diagnosis: Other intervertebral disc degeneration, lumbar region[ICD10: M51.36] Diagnosis: Sacroiliitis, not elsewhere classified[ICD10: M46.1] Diagnosis: Obstructive sleep apnea (adult) (pediatric)[ICD10: G47.33] Alexandra [facility] CPT-[facility]: 61738 08/10/2018 ([id number]) OFFICE/OUTPATIENT VISIT EST Diagnosis: Fracture of unspecified part of left clavicle, subsequent encounter for fracture with routine healing[ICD10: S42.002D] Diagnosis: Cervicalgia[ICD10: M54.2] Diagnosis: Radiculopathy, lumbosacral region[ICD10: M54.17] Alexandra CARROLL [employer] [facility] CPT-4: 14624 03/27/2018 ([id number]) OFFICE/OUTPATIENT VISIT EST Diagnosis: Fracture of unspecified part of left clavicle, subsequent encounter for fracture with routine healing[ICD10: S42.002D] Diagnosis: Other intervertebral disc degeneration, lumbar region[ICD10: M51.36] Diagnosis: Unspecified fracture of first thoracic vertebra, subsequent encounter for fracture with routine healing[ICD10: S22.019D] Diagnosis: Unspecified fracture of second thoracic vertebra, subsequent encounter for fracture with routine healing[ICD10: S22.029D] Alexandra CARROLL [employer] [facility] CPT-4: 76873 02/23/2018 ([id number]) OFFICE/OUTPATIENT VISIT EST Diagnosis: Fracture of unspecified part of left clavicle, subsequent encounter for fracture with routine healing[ICD10: S42.002D] Diagnosis: Unspecified fracture of first thoracic vertebra, subsequent encounter for fracture with routine healing[ICD10: S22.019D] Diagnosis: Unspecified fracture of second thoracic vertebra, subsequent encounter for fracture with routine healing[ICD10: S22.029D] Alexandra CARROLL [employer] [facility] CPT-4: 98285 01/24/2018 ([id number]) OFFICE/OUTPATIENT VISIT EST Diagnosis: Migraine, unspecified, not intractable, without status migrainosus[ICD10: G43.909] Alexandra CARROLL [employer] [facility] CPT - 4: 45843 01/17/2018 ([id number]) OFFICE/OUTPATIENT VISIT EST Diagnosis: Hematuria, unspecified[ICD10: R31.9] Diagnosis: Other intervertebral disc degeneration, lumbar region[ICD10: M51.36] Diagnosis: Retention of urine, unspecified[ICD10: R33.9] Alexandra CARROLL [employer] [facility] CPT-4: 12091 12/29/2017 OFFICE/OUTPATIENT VISIT EST Diagnosis: Fracture of [...] Low back pain[ICD10: M54.5] Alexandra KUNZ DO [facility] CPT-4: 72340 12/06/2017 ([id number]) OFFICE/OUTPATIENT VISIT EST Diagnosis: Cellulitis of right upper limb[ICD10: L03.113] Diagnosis: Allergy status to other antibiotic agents status[ICD10: Z88.1] Vandana CARROLL DO [facility] CPT-4: 97987 12/01/2017 ([id number]) OFFICE/OUTPATIENT VISIT EST Diagnosis: Cellulitis of right upper limb[ICD10: L03.113] Diagnosis: Allergy status to other antibiotic agents status[ICD10: Z88.1] Vandana CARROLL DO [facility] CPT-4: 64758 11/30/2017 ([id number]) OFFICE/OUTPATIENT VISIT EST Diagnosis: Cellulitis of right upper limb[ICD10: L03.113] Vandana CARROLL DO [facility] CPT-4: 06913 11/29/2017 ([id number]) OFFICE/OUTPATIENT VISIT EST Diagnosis: Cellulitis of right upper limb[ICD10: L03.113] Vandana CARROLL DO [facility] CPT-4: 35296 11/28/2017 ([id number]) OFFICE/OUTPATIENT VISIT EST Diagnosis: Other intervertebral disc degeneration, lumbar region[ICD10: M51.36] Diagnosis: Other retention of urine[ICD10: R33.8] Diagnosis: Primary insomnia[ICD10: F51.01] Diagnosis: Other spondylosis, site unspecified[ICD10: M47.899] Alexadnra CARROLL [employer] [facility] CPT-4: 95329 11/17/2017 ([id number]) OFFICE/OUTPATIENT VISIT EST Diagnosis: Radiculopathy, lumbosacral region[ICD10: M54.17] Diagnosis: Other retention of urine[ICD10: R33.8] Diagnosis: Urinary tract infection, site not specified[ICD10: N39.0] Vandana CARROLL DO [facility] CPT-4: 88422 10/10/2017 ([id number]) PREV VISIT EST AGE 40-64 Diagnosis: Encounter for general adult medical examination without abnormal findings[ICD10: Z00.00] Diagnosis: Other intervertebral disc degeneration, lumbar region[ICD10: M51.36] Diagnosis: Hypothyroidism, unspecified[ICD10: E03.9] Diagnosis: Mixed hyperlipidemia[ICD10: E78.2] Alexandra Glen EDMUNDFELIPE CARROLL [employer] [facility] CPT-4: 47034 06/22/2017 ([id number]) OFFICE/OUTPATIENT VISIT EST Diagnosis: URI, ACUTE[ICD10: J06.9] Alexandra Danelawandajavier ALEXANDRA MacyAri GIULIA PAREKH [facility] CPT-4: 29546 03/28/2017 OFFICE/OUTPATIENT VISIT EST Diagnosis: Acute sinusitis, unspecified[ICD10: J01.90] Vandana CavazosAri GLEN SALGUERO [facility] CPT-4: 52642 02/16/2017 ([id number]) OFFICE/OUTPATIENT VISIT EST Diagnosis: Migraine, unspecified, not intractable, without status migrainosus[ICD10: G43.909] Alexandra SHAFFERLINE MacyAri GLEN [employer] [facility] CPT - 4: 95011 11/02/2016 ([id number]) OFFICE/OUTPATIENT VISIT EST Diagnosis: Pain in thoracic spine[ICD10: M54.6] Diagnosis: Chondrocostal junction syndrome [Tietze][ICD10: M94.0] Alexandra Danelawandajavier ALEXANDRA MacyAri GLEN [employer] [facility] CPT-4: 21809 09/06/2016 OFFICE/OUTPATIENT VISIT EST Diagnosis: Acute sinusitis, unspecified[ICD10: J01.90] Vidya Manuel ALEXANDRA MacyAri GLEN [employer] [facility] CPT-4: 88265 08/16/2016 ([id number]) OFFICE/OUTPATIENT VISIT EST Diagnosis: Primary insomnia[ICD10: F51.01] Diagnosis: Cramp and spasm[ICD10: R25.2] Diagnosis: Major depressive disorder, single episode, mild[ICD10: F32.0] Alexandrateja CARROLL [employer] [facility] CPT-4: 58421 07/19/2016 ([id number]) OFFICE/OUTPATIENT VISIT EST Diagnosis: Obstructive sleep apnea (adult) (pediatric)[ICD10: G47.33] Diagnosis: Other fatigue[ICD10: R53.83] Diagnosis: Allergic rhinitis due to pollen[ICD10: J30.1] Diagnosis: Headache[ICD10: R51] Alexandra CARROLL DO [facility] CPT-4: 48748 07/06/2016 ([id number]) OFFICE/OUTPATIENT VISIT EST Diagnosis: Acute recurrent sinusitis, unspecified[ICD10: J01.91] Diagnosis: Allergic rhinitis due to pollen[ICD10: J30.1] Alexandra CARROLL DO [facility] CPT-4: 86965 06/15/2016 ([id number]) OFFICE/OUTPATIENT VISIT EST Diagnosis: Migraine, unspecified, not intractable, without status migrainosus[ICD10: G43.909] Diagnosis: Allergic rhinitis, unspecified[ICD10: J30.9] Nae CARROLL [employer] [facility] CPT-4: 05406 04/09/2016 ([id number]) OFFICE/OUTPATIENT VISIT EST Diagnosis: Hypothyroidism, unspecified[ICD10: E03.9] Diagnosis: Other fatigue[ICD10: R53.83] Diagnosis: Mixed hyperlipidemia[ICD10: E78.2] Diagnosis: Major depressive disorder, single episode, mild[ICD10: F32.0] Alexandra CARROLL [employer] [facility] CPT-4: 75541 03/17/2016 ([id number]) OFFICE/OUTPATIENT VISIT EST Diagnosis: Insomnia, unspecified[ICD10: G47.00] Diagnosis: Encounter for therapeutic drug level monitoring[ICD10: Z51.81] Nae Woody SHAFFERLINE Ty CARROLL [employer] [facility] CPT-4: 96767 11/13/2015 ([id number]) OFFICE/OUTPATIENT VISIT EST Diagnosis: Hematuria, unspecified[ICD10: R31.9] Alexandra CARROLL [employer] [facility] CPT-4: 01011 05/05/2015 ([id number]) OFFICE/OUTPATIENT VISIT EST Diagnosis: Other intervertebral disc degeneration, lumbar region[ICD10: M51.36] Diagnosis: Radiculopathy, lumbosacral region[ICD10: M54.17] Alexandra CARROLL DO [facility] CPT-4: 88675 04/22/2015 ([id number]) OFFICE/OUTPATIENT VISIT EST Diagnosis: Low back pain[ICD10: M54.5] Diagnosis: Recurrent and persistent hematuria with unspecified morphologic changes[ICD10: N02.9] Alexandradanielle CARROLL DO [facility] CPT-4: 24474 03/24/2015 ([id number]) OFFICE/OUTPATIENT VISIT EST Diagnosis: Acute sinusitis, unspecified[ICD10: J01.90] Diagnosis: Headache[ICD10: R51] Diagnosis: Retention of urine, unspecified[ICD10: R33.9] Diagnosis: Hypothyroidism, unspecified[ICD10: E03.9] Alexandradanielle SHAFFERLINE MacyAri GLEN SALGUERO [facility] CPT-4: 36536 02/27/2015 ([id number]) PREV VISIT EST AGE 40-64 Diagnosis: ROUTINE MEDICAL EXAM[ICD9: V70.0] Diagnosis: HYPOTHYROIDISM[ICD9: 244.9] Diagnosis: HYPERLIPIDEMIA NEC/NOS[ICD9: 272.4] Alexandra Danejames CORDOBA Ty CARROLL DO [facility] CPT-4: 87435 06/13/2014 ([id number]) OFFICE/OUTPATIENT VISIT EST Diagnosis: CEPHALGIA[ICD9: 784.0] Diagnosis: Nausea[ICD9: 787.02] Shalini Romeo MARINQUELINE Ty CARROLL DO [facility] CPT-4: 71293 04/18/2014 ([id number]) OFFICE/OUTPATIENT VISIT EST Diagnosis: INSOMNIA NOS[ICD9: 780.52] Diagnosis: Complicated grieving[ICD9: 309.0] Alexandra Louise MacyAri GLEN SALGUERO [facility] CPT-4: 07455 12/05/2013 ([id number]) OFFICE/OUTPATIENT VISIT EST Diagnosis: Muscle twitch[ICD9: 781.0] Diagnosis: ALLERGIC RHINITIS[ICD9: 477.9] Alexandra FORDE Macy Ari GLEN SALGUERO [facility] CPT-4: 15625 06/05/2013 ([id number]) OFFICE/OUTPATIENT VISIT EST Diagnosis: DEPRESSIVE DISORDER NEC[ICD9: 311] Alexandra Orendjavier QUINTERO S. DANENDER [facility] CPT-4: 64072 05/22/2013 OFFICE/OUTPATIENT VISIT EST Diagnosis: Shingles[ICD9: 053.9] Alexandra VELANDER [facility] CPT-4: 07210 04/05/2013 ([id number]) OFFICE/OUTPATIENT VISIT EST Diagnosis: DEPRESSIVE DISORDER NEC[ICD9: 311] Alexandrateja QUINTERO S. DANENDER DO [facility] CPT-4: 22127 03/26/2013 ([id number]) OFFICE/OUTPATIENT VISIT EST Diagnosis: Complicated grieving[ICD9: 309.0] Alexandra Carroll PAM Dani SAri VELANDER [facility] CPT-4: 26421 03/06/2013 ([id number]) OFFICE/OUTPATIENT VISIT EST Diagnosis: CEPHALGIA, TENSION[ICD9: 307.81] Diagnosis: MIGRAINE NOS/NOT INTRCBL[ICD9: 346.90] Diagnosis: Cervicalgia[ICD9: 723.1] Alexandra Velalawandajavier SHAFFERALEXANDRA Ty VELAN IZABELLA [facility] CPT-4: 80427 11/29/2012 ([id number]) OFFICE/OUTPATIENT VISIT EST Diagnosis: Jaw pain[ICD9: 784.92] Diagnosis: Shoulder pain[ICD9: 719.41] Diagnosis: Family history of premature coronary artery disease[ICD9: V17.3] Alexandra Danejames ALEXANDRA MacyAri GLEN [facility] CPT-4: 20394 09/26/2012 ([id number]) OFFICE/OUTPATIENT VISIT EST Diagnosis: ABDOMINAL PAIN[ICD9: 789.00] Diagnosis: Constipation[ICD9: 564.00] Diagnosis: Hematuria[ICD9: 599.70] Alexandra Carroll ALEXANDRA MacyAri DANEND ER [facility] CPT-4: 23379 07/11/2012 ([id number]) OFFICE/OUTPATIENT VISIT EST Diagnosis: ANEMIA NOS[ICD9: 285.9] Alexandra FORDE MacyAri DANEND ER DO [facility] CPT-4: 42177 02/17/2012 ([id number]) PREV VISIT EST AGE 40-64 Diagnosis: ROUTINE MEDICAL EXAM[ICD9: V70.0] Diagnosis: HYPOTHYROIDISM[ICD9: 244.9] Diagnosis: HYPERLIPIDEMIA NEC/NOS[ICD9: 272.4] Diagnosis: Obstructive sleep apnea[ICD9: 327.23] Alexandra Glen ISLAS S. ORENDER DO [facility] CPT-4: 81847 02/02/2012 ([id number]) OFFICE/OUTPATIENT VISIT EST Diagnosis: URINARY TRACT INFECTION[ICD9: 599.0] Alexandra Glen LOZANO S. ORENDER DO [facility] CPT-4: 02936 08/27/2011 ([id number]) OFFICE/OUTPATIENT VISIT EST Diagnosis: URINARY TRACT INFECTION[ICD9: 599.0] Diagnosis: ACUTE CYSTITIS[ICD9: 595.0] Alexandra Glen ALEXANDRA S. O RENDER DO [facility] CPT-4: 50422 08/17/2011 OFFICE/OUTPATIENT VISIT EST Diagnosis: URINARY TRACT INFECTION[ICD9: 599.0] Steph MARINQUE DANIELLE S. ORENDER DO [facility] CPT-4: 86923 10/14/2010 Plan of Care Planned Activity Notes Codes Status Date Appointment: Alexandra Carroll WPtel: [facility] [place] [address] 07/26/2019 Visit Diagnosis Plan: Urinary tract infection, site no t specified Discussion: urine sent for culture. cipro prescribed to take as directed and instructed to stop the macrobid that she has since there is no improvement in symptoms. push fluids. will call patient pending culture results. ICD-9 : 599.0 ICD-10 : N39.0 07/17/2019 Appointment: [facility] [address] [facility] ACUTE ILLNESS 07/17/2019 Patient Education: Cipro- [employer] Abiel [phone] [email or web address]/resources/getResource/[email or web address].pdf Completed 07/17/2019 Visit Diagnosis Plan: Allergic dermatitis Discussion: Could be numerous things that were given during surgery Continue benadryl Add Prednisone Notify if persists/worsens ICD-9 : 692.9 ICD-10 : L23.9 06/26/2019 Appointment: Alexandra Carroll WPtel: [phone] [facility] ACUTE ILLNESS 06/26/2019 Patient Education: prednisone- [employer] Coupon [phone] [email or web address]/[email or web address] Completed 06/26/2019 Visit Diagnosis Plan: Cellulitis of [...] injection a week pre-op and dr. albert's professor of family medicine voiced ok to give. ICD-9 : 692.6 ICD-10 : L25.5 05/14/2019 Appointment: Vandana Crowe [address] [place] [address] ACUTE ILLNESS 05/14/2019 Patient Education: Levaquin- [employer] Coupon [phone] [email or web address]://[email or web address]/resources/getResource/61/[email or web address] Completed 05/14/2019 Visit Diagnosis Plan: Ventral hernia Discussion: See s urgery for repair Discussed signs of incarceration or strangulation then is to report to ER ICD-9 : 553.20 ICD-10 : K43.9 04/10/2019 Appointment: Alexandra Carroll WPtel: [phone] [facility] left second message 04/10/19 at 10:20 ACUTE ILLNE SS 04/10/2019 Care Plan: Referral Order SNOMED-CT : 30 [id number] Pending 04/10/2019 Visit Diagnosis Plan: Insomnia Discussion: [...] : D47.3 02/14/2019 Appointment: Alexandra Carroll WPtel: [address] [place] [address] FOLLOW UP 02/14/2019 Appointment: Alexandra Carroll WPtel: [address] [place] [address] US CANCELED 02/12/2019 Visit Diagnosis Plan: Onychomycosis Discussion: Send n ail for culture ICD-9 : 110.1 ICD-10 : B35.1 01/16/2019 Visit Diagnosis Plan: Small bowel obstruction Discussi on: S/P surgery in September with postop complications of wound dehiscence ICD-9 : 560.9 ICD-10 : K56.609 01/16/2019 Appointment: Alexandra Carroll WPtel: [address] [place] [address] MEDICATION REVIEW 01/16/2019 Appointment: Alexandra Carroll WPtel: [address] [place], [place] [phone] US CANCELED 12/12/2018 Visit Diagnosis Plan: Diarrhea, unspecified Discussion : Due for updated colonoscopy ICD-9 : 787.91 ICD-10 : R19.7 09/18/2018 Visit Diagnosis Plan: Radiculopathy, lumbosacral regio n Discussion: Had left SI joint injection by Dr. Baig about 2 weeks ago and has fwup with him ICD-9 : 724.4 ICD-10 : M54.17 09/18/2018 Appointment: Alexandra Carroll WPtel: [address] [place] [address] PATIENT CONSULT 15 09/18/2018 Care Plan: Referral Order SNOMED-CT : 30 [id number] Pending 09/18/2018 Visit Diagnosis Plan: Other intervertebral [...] : M46.1 08/10/2018 Appointment: Alexandra Carroll WPtel: [address] [place], [place] [id number] [place] MEDICATION REVIEW 08/10/2018 Care Plan: Referral Order SNOMED-CT : 30 [id number] Pending 08/10/2018 Appointment: Alexandra Carroll WPtel: [address] [place], [place] [id number] [place] CANCELED 04/17/2018 Visit Diagnosis Plan: Fracture [...] : M54.2 03/27/2018 Appointment: Alexandra Carroll WPtel: [address] [place], [place] [phone] [place] FOLLOW UP 03/27/2018 Visit Diagnosis Plan: [...] : S42.002D 02/23/2018 Appointment: Alexandra Carroll WPtel: [address] [place] [address] [place] FOLLOW UP 02/23/2018 Patient Education: [email or web address]- [employer] Coupon [phone] [email or web address] Completed 02/23/2018 Visit Diagnosis Plan: Fracture of unspec ified part of left clavicle, subsequent encounter for fracture with routine healing Discussion: Hold on PT and do home stretches Trial of gabapentin Recheck 4 weeks ICD-9 : V54.11 ICD-10 : S42.002D 01/24/2018 Appointment: Alexandra Carroll WPtel: [address] [place], [place] [phone] [place] FOLLOW UP 01/24/2018 Visit Diagnosis Plan: Migraine, unspecif ied, not intractable, without status migrainosus Discussion: Toradol and phenergan given ICD-9 : 346.90 ICD-10 : G43.909 01/17/2018 Appointment: Alexandra Carroll WPtel: [address] [place], [place] [phone] [place] ACUTE ILLNESS 01/17/2018 Visit Diagnosis Plan: Retention of urine, unspecified Discussion: Seems to be related to back issues as comes on everytime back flares up so will do GERMAIN or SI joint injection ICD-9 : 788.20 ICD-10 : R33.9 12/29/2017 Visit Diagnosis Plan: Hematuria, unspecified Discussio n: Check pelvic and renal US ICD-9 : 599.70 ICD-10 : R31.9 12/29/2017 Visit Diagnosis Plan: Other intervertebral disc degene ration, lumbar region Discussion: Referral to pain management for injection ICD-9 : 722.52 ICD-10 : M51.36 12/29/2017 Appointment: Alexandra Carroll WPtel: [phone] [facility] [place] [place] 12/29/2017 Care Plan: US EXAM PELVIC COMPLETE LOINC : 57086-0 Pending 12/29/2017 Care Plan: ECHO EXAM OF ABDOMEN LOINC : 99897-7 Pending 12/29/2017 Care Plan: Referral Order SNOMED-CT : 30 6174801 Pending 12/29/2017 Visit Diagnosis Plan: Fracture of unspec ified part of left clavicle, subsequent encounter for fracture with routine healing Discussion: Start PT in another 7-14 days Off work for the rest of this week then may return to part-time work on 12/12/17 Fwup in 4 weeks ICD-9 : V54.11 ICD-10 : S42.002D 12/06/2017 Appointment: Alexandra Carroll WPtel: [phone] [facility] [place] FOLLOW UP 12/06/2017 Patient Education: Patient Medication [...] : Z88.1 12/01/2017 Appointment: Vandana Crowe [facility] FOLLOW UP 12/01/2017 Patient Education: Patient Medication Summary Completed 12/01/2017 Visit Diagnosis Plan: Cellulitis of right upper [...] ICD-9 : 682.3 ICD-10 : L03.113 11/30/2017 Visit Diagnosis Plan: Allergy status to other antibiot ic agents status Discussion: kenalog/dexa given in office to treat allergic reaction of anbitiotic. instructed to take benadryl at hs if needed as well. ICD-9 : 995.27 ICD-10 : Z88.1 11/30/2017 Appointment: Vandana Crowe [facility] 11/30/2017 Patient Education: Patient Medication Summary Completed [...] ICD-10 : L03.113 11/29/2017 Appointment: Vandana Crowe [address] [place], [place] [id number] FOLLOW UP 11/29/2017 Patient Education: Patient Medication [...] ICD-10 : L03.113 11/28/2017 Appointment: Vandana Crowe [address] [place], [place] [id number] ACUTE ILLNESS 11/28/2017 Patient Education: Patient Medication Summary Completed 11/28/2017 Visit Diagnosis Plan: Primary insomnia Discussion: Dis [...] ICD-9 : 721.90 ICD-10 : M47.899 11/17/2017 Visit Diagnosis Plan: Other intervertebral disc degene ration, lumbar region Discussion: See Dr. Jasso to evluate MRI/X-rays and do injections as well as assess for ankylosing spondylitis as cause of pain and urinary retention vs spinal stenosis as cause ICD-9 : 722.52 ICD-10 : M51.36 11/17/2017 Appointment: Alexandra Carroll WPtel: [facility] MEDICATION REVIEW 11/17/2017 Patient Education: Patient Medication Summary Completed 11/17/2017 Care Plan: Referral Order SNOMED-CT : 30 [id number] Pending 11/17/2017 Patient Education: Patient Medication Summary Completed 10/12/2017 Care Plan: MRI LUMBAR SPINE W/O DYE LOIN C : 63834-6 Pending 10/12/2017 Care Plan: X-RAY EXAM L-S SPINE 2/3 VWS LOINC : 07642-5 Pending 10/11/2017 Visit Diagnosis Plan: Other retention [...] medrol pack to start tomorrow. [facility] with inversion table. instructed patient to go to ED immediately if she develops any incontinence with bowel or bladder. patient verbalized understanding. if no improvement, will need updated MRI and referral to surgeon. ICD-9 : 724.4 ICD-10 : M54.17 10/10/2017 Appointment: Vandana Crowe [address] [place] [address] ACUTE ILLNESS 10/10/2017 Patient Education: Patient Medication Summary Completed 10/10/2017 Appointment: Vandana Crowe [address] [place] [address] ACUTE ILLNESS 08/01/2017 Visit Diagnosis Plan: Other intervertebral disc degene ration, lumbar region Discussion: Core strengtheing and inversion table and if worsening will need updated MRI ICD-9 : 722.52 ICD-10 : M51.36 06/22/2017 Visit Diagnosis Plan: Encounter for [facility] adult medical examination without abnormal findings Discussion: Lab dis ussed Follow Up: 6 months ICD-9 : V70.0 ICD-10 : Z00.00 06/22/2017 Appointment: Alexandra Carroll WPtel: [phone] Annual Well Visit 06/22/2017 Patient Education: Patient Medication Summary Completed 06/22/2017 Patient Education: Patient Medication Summary Completed 06/16/2017 Care Plan: [facility] 12449[facility]1 Pending 06/16/2017 Care Plan: ASSAY THYROID STIM HORMONE Pen ding 06/16/2017 Care Plan: ASSAY OF FREE THYROXINE Pendin g 06/16/2017 Care Plan: LIPID PANEL LOINC : 73312-9 Pending 06/16/2017 Care Plan: CBC Pending 06/16/2017 [...] care. Rest, Fluids... 03/28/2017 Appointment: Alexandra Carrolltel: [address] [place] [address] ACUTE ILLNESS 03/28/2017 Patient Education: Patient Medication Summary Completed 03/28/2017 Visit Diagnosis Plan: Acute sinusitis, unspecified Dis cussion: cefdinir and medrol dose pack prescribed to be taken as directed. tylenol/ibuprofen as needed. educated on importance of taking singulair or zyrtec daily to prevent worsening symptoms. keep hydrated. ICD-9 : 461.9 ICD-10 : J01.90 02/16/2017 Appointment: Vandana Crowe [address] [place] [address] ACUTE ILLNESS 02/16/2017 Patient Education: Patient Medication Summary Completed 02/16/2017 Appointment: Alexandra Carroll WPtel: [address] [place] [address] US INJECTION 11/02/2016 Patient Education: Patient Medication Summary Completed 11/02/2016 Visit Diagnosis Plan: Pain in thoracic spine Discussio n: Increase flexeril to 10mg po BID Add Mobic 15mg po daily Towel stretch May see chiropractor to adjust ribs Notify if persists or worsening ICD-9 : 724.1 ICD-10 : M54.6 09/06/2016 Appointment: Alexandra Carroll WPtel: [address] [place] [address] ACUTE ILLNESS 09/06/2016 Patient Education: Patient Medication Summary Completed 09/06/2016 Visit Plan: Due to hx, ERx Cefdinir and Prednisone (discussed risks for both) Given bottle for nasal saline rinses Tylenol/Ibuprofen prn pain/fever Fluids/rest Discussed s/s of worsening, RTC if no improvement 08/16/2016 Appointment: Vidya Manuel WPtel: [address] [place] [address] ACUTE ILLNESS 08/16/2016 Patient Education: Patient Medication [...] : F51.01 07/19/2016 Appointment: Alexandra Carroll WPtel: [address] [place], [place] [phone] 07/15 confirmed`sl FOLLOW UP 07/19/2016 Patient Education: [...] : G47.33 07/06/2016 Appointment: Alexandra Carroll WPtel: [facility] 07/05 confirmed-sp FOLLOW UP 07/06/2016 Patient Education: [...] : J30.1 06/15/2016 Appointment: Alexandra Carroll WPtel: [facility] [place] 06/14 lm ~sl ACUTE ILLNESS 06/15/2016 Patient Education: Patient Medication Summary Completed 06/15/2016 Visit Diagnosis Plan: Migraine, unspecif ied, not intractable, without status migrainosus Discussion: Injection as above Drink ple nty of water No driving x 6 hours Rest No OTC nsaids today Follow up PRN Refill called of claritin-d ICD-9 : 346.90 ICD-10 : G43.909 04/09/2016 Appointment: Nae Mckay [address] [facility] [facility] 04/09/2016 Patient Education: Patient Medication [...] : E78.2 03/17/2016 Appointment: Alexandra Carroll WPtel: [address] [place], [place] [address] 03/16 nvm~sl 03/17 confirmed`sl FOLLOW UP 0 03/17/2016 Patient Education: Patient Medication Summary Completed 03/17/2016 Appointment: Alexandra Carroll WPtel: [address] [place], [place] [address] [place] 03/11 lm~sl 03/15lm `sl 03/15 confirmed`sl FOLLOW U P 03/15/2016 Visit Plan: Discussed labeled indication s for benzos. Since xanax is not labeled for sleep and she has never tried anything else, encouraged her to trial restoril(another benzo) since it is labeled for sleep. She agrees with this trial. Rx called to [facility] after cost comparison which is nearly the same robert. If working well, continue the z9qfxpi office visits. Call if not working well, and will restart xanax at for sleep. 11/13/2015 Appointment: Nae Mckay [address] [facility] 11/11 confirmed~sl FOLLOW UP 11/13/2015 Patient Education: Patient Medication Summary Completed 11/13/2015 Appointment: Alexandra Carroll WPtel: [address] [place], [place] [phone] Suture Removal 06/23/2015 Patient Education: Patient Medication Summary Completed 06/23/2015 Visit Plan: Removal of lesion above usin g 3-0 punch biopsy Return in 10 days for suture removal 06/12/2015 Appointment: Alexandra Carroll WPtel: [address] [place], [place] [address] [place] 06/10 lm ~sl ACUTE ILLNESS 06/12/2015 Patient Education: Patient Medication Summary Completed 06/12/2015 Referral: Soy Garcia WPtel: [address] [id number] Schedule patient around lunch time and 3 weeks from 04/22/2015 ~sl Spoke with Kiesha at Dr. Sandoval [facility] and 04/24/15 and scheduled the patient ~sl 04/24/15 Patient is informed~sl 06/03 Patient canceled the appointment ~ sl Patient did not show up for scheduled appointment-sp Appoint ment Requested 05/21/2015 Appointment: Alexandra Carroll WPtel: [address] [place], [place] [phone] UA 05/05/2015 Patient Education: Patient Medication Summary Completed 05/05/2015 Visit Plan: Starts PT today Schedule wit h Dr. Garcia for epidural CT abdomen/pelvis results discussed Sees [facility] in April and will get checked then 04/22/2015 Appointment: Alexandra Carroll WPtel: [address] [place] [address] 04/21 confirmed~lb ACUTE ILLNESS 04/22/2015 Patient Education: Patient Medication Summary Completed 04/22/2015 Referral: Lincoln Hernandez WPtel: [address] [place] [address] Referral Initiated 04/10/2015 Patient Education: Patient Medication Summary Completed 04/09/2015 Visit Plan: Start with lumosacral spine x-ray--will likely need MRI of L/S spine x-ray Needs urology--has had to have bladder stretched in past Tivorbex 03/24/2015 Appointment: Alexandra Carroll WPtel: [address] [place], [place] [id number] 03/21/15 appt confirmed cn ACUTE ILLNESS 03/24 Patient Education: Patient Medication Summary Completed 03/24/2015 Visit Plan: Saline nasal flushes prn. Ty lenol/Motrin prn headache. Notify if persists/symptoms worsening. Cefuroxime to cover both sinuses and UTI Culture urine Check lab 02/27/2015 Appointment: Alexandra Carroll WPtel: [address] [place], [place] [phone] 02/26/15 vm to confirm and need new insu meri on file is inactive cn....02/27/15 appt confirmed cn ACUTE ILLNESS 015 Patient Education: Patient Medication Summary Completed 02/27/2015 Visit Plan: Lab discussed Stop simvastat in Check lipids in 6mos Continue all other meds at current dose Had Pap and Mammo 3 weeks ago 06/13/2014 Appointment: Alexandra Carroll WPtel: [address] [place] [address] Annual Well Visit 06/13/2014 Patient Education: Patient Medication Summary Completed 06/13/2014 Appointment: Shalini Walters WPtel: [address] [place] [address] ACUTE ILLNESS 04/18/2014 Patient Education: Patient Medication Summary Completed 04/18/2014 Visit Plan: Check lab in May then fwup Can try decreasing xanax to 1mg q HS with melatonin 5-10mg q HS 12/05/2013 Appointment: Alexandra Carroll WPtel: [address] [place] [address] 12/04 FOLLOW UP 12/05/2013 Patient Education: Patient Medication Summary Completed 12/05/2013 Appointment: Alexandra Carroll WPtel: [address] [place] [address] FOLLOW UP 06/05/2013 Patient Education: Patient Medication Summary Completed 06/05/2013 Appointment: Alexandra Carroll WPtel: [address] [place] [address] FOLLOW UP 05/22/2013 Patient Education: Patient Medication Summary Completed 05/22/2013 Visit Plan: Zovirax for 2wks Notify if p ain worsens or if persists 04/05/2013 Appointment: Alexandra Carroll WPtel: [address] [place] [address] ACUTE ILLNESS 04/05/2013 Patient Education: Patient Medication Summary Completed 04/05/2013 Visit Plan: Keep Wellbutrin at current d ose Pt did see for counseling 03/26/2013 Appointment: Alexandra Carroll WPtel: [address] [place] [address] ACUTE ILLNESS 03/26/2013 Patient Education: Patient Medication Summary Completed 03/26/2013 Visit Plan: Continue citalopram at curre nt dose Increase xanax to 1-2mg q HS for sleep Add Wellbutrin Sr 100mg q AM Start Counseling 03/06/2013 Appointment: Alexandra Carroll WPtel: [address] [place] [address] ACUTE ILLNESS 03/06/2013 Patient Education: Patient Medication Summary Completed 03/06/2013 Appointment: Alexandra Carroll WPtel: [address] [place] [address] ACUTE ILLNESS 11/29/2012 Patient Education: Patient Medication Summary Completed 11/29/2012 Appointment: Alexandra Carroll WPtel: [address] [place] [address] ACUTE ILLNESS 09/26/2012 Patient Education: Patient Medication Summary Completed 09/26/2012 Appointment: Alexandra Carroll WPtel: [address] [place] [address] ACUTE ILLNESS 07/11/2012 Patient Education: Patient Medication Summary Completed 07/11/2012 Appointment: Alexandra Carroll WPtel: [address] [place] [address] LAB 02/17/2012 Patient Education: Patient Medication Summary Completed 02/17/2012 Visit Plan: Check fasting lab Start annie y ca with Vit D Cont CPAP Mammo up-to-date Hemoccult card given 02/02/2012 Appointment: Alexandra Carroll WPtel: [address] [place] [address] PHYSICAL 02/02/2012 Patient Education: Patient Medication Summary Completed 02/02/2012 Appointment: Alexandra Carroll WPtel: [address] [place] [address] UA 08/27/2011 Patient Education: Patient Medication Summary Completed 08/27/2011 Visit Plan: Levaquin and Diflucan for 1w k Then cipro QOD for prophylaxis 08/17/2011 Appointment: Alexandra Carroll WPtel: [address] [place] [address] FOLLOW UP 08/17/2011 Patient Education: Patient Medication Summary Completed 08/17/2011 Appointment: Alexandra Carroll WPtel: [address] [place] [address] UA 12/28/2010 Patient Education: Patient Medication Summary Completed 12/28/2010 Appointment: Alexandra Carroll WPtel: [address] [place] [address] 11/09/2010 Patient Education: Patient Medication Summary Completed 11/09/2010 Appointment: Alexandra Carroll WPtel: [address] [place] [address] UA 10/29/2010 Patient Education: Patient Medication Summary Completed 10/29/2010 Appointment: Steph Bowen WPtel: [address] [place] [address] ACUTE ILLNESS 10/14/2010 Patient Education: Patient Medication Summary Completed 10/14/2010 Referral: Florian Baig WPtel: [facility] [place] [address] [id number] [place] Referral Initiated Referral: Paulo Albert WPtel: [phone] [id number] [place] Referral Appointment Requested Referral: Luis Enrique Jasso WPtel: [facility] [address], [facility] 1 [id number] [place] Referral Appointment Requested Referral: Florian Baig WPtel: [facility] [address] 1 [id number] [place] Referral Appointment Requested Referral: Caleb Glaser WPtel: [address] [id number] [place] Referral Appointment Requested Referral: Florian Baig WPtel: [facility] [address], [facility] 1 [id number] Referral Initiated Referral: Florian Baig WPtel: [facility] [address], [address] Referral Appointment Requested Instructions Comment . [...] agrees with this trial. Rx called to [facility] after cost comparison which is nearly the same robert. If working well, continue the [id number] office visits. Call if not working well, and will restart xanax at HS for sleep. . Removal of lesion above using 3-0 punc h biopsy Return in 10 days for suture removal . Starts PT today Schedule with Dr. Garcia for epidural CT abdomen/pelvis results discussed Sees [facility] in April and will get checked then [...] Wellbutrin at current dose Pt did see social work case manager for counseling . Continue citalopram at current [...]
--- OUTSIDE RECORDS SUMMARY | 2019-09-02 00:11 | XMS REPORT | CCD ---
Author Author Ilda Bowen APRN Organization [facility] Address [address] [place] [address] Phone Care Team Providers Care Personal Care Aid Name Role Phone Alexandra Carroll D.O., PP Unavailable CCM Unavailable Summary Purpose Interface Exchange Insurance Providers Payer name Policy type / Coverage type Covered green party ID Effective Begin Date Effective End Date WPS MEDICARE PART B [place] Medicare Part B [id number] 2019 Unknown [employer] [place] Medicare Part B [id number] Unknown Family History Family History data not found Social History Social History Element Codes Description Effective Dates Tobacco history SNOMED CT: 823231215 Nonsmoker 10/14/2010 Allergies, Adverse Reactions, Alerts Substance Reaction Codes Entered Date Inactivated Date Status MORPHINE SULFATE RxNorm: 3508456 10/14/2010 No Inactive Da te Active CEPHALOSPORINS [...] Fill Instructions Macrobid 100 mg capsule RxNorm: 313990 1 Capsule(s) Oral two ti mes a day 07/30/2019 08/09/2019 Active Macrobid 100 mg capsule RxNorm: 357452 1 Capsule(s) Oral two ti mes a day 07/30/2019 07/29/2019 Inactive cyclobenzaprine 10 mg tablet RxNorm: 675126 Tablet(s) Oral as neede d 07/17/2019 No Stop Date Active Cipro 500 mg tablet RxNorm: 973593 1 Tablet(s) Oral two times a day 07/17/2019 07/22/2019 Inactive Xanax 1 mg tablet RxNorm: 086486 1-2 Tablet(s) Oral e very night at bedtime as needed for sleep 07/10/2019 08/08/2019 Active Generic For:LAVELLE AX 1MG 10/11/2016 11:15:13 AM prednisone 20 mg tablet RxNorm: 130887 1 Tablet(s) Oral two harlan es a day 06/26/2019 07/03/2019 Inactive Amabelz 1 mg-0.5 mg tablet RxNorm: 6375186 1 Tablet(s) Oral QD 05/3007/17/2019 Inactive Trazadone 150 mg Tablet RxNorm: 1 Tablet(s) Oral every n ight at bedtime 05/14/2019 No Stop Date Active Levaquin 500 mg tablet RxNorm: 445841 1 Tablet(s) Oral QD 05/14/2019 05/21/2019 Inactive Xanax 1 mg tablet RxNorm: 789028 1-2 Tablet(s) Oral e very night at bedtime as needed for sleep 05/03/2019 06/01/2019 Inactive Generic For:LAVELLE AX 1MG 10/11/2016 11:15:13 AM cyclobenzaprine 10 mg tablet RxNorm: 876975 1 Tablet(s) Oral three times a day as needed for muscle spasm 02/12/2019 02/12/2019 Inactive Xanax 1 mg tablet RxNorm: 324381 1-2 Tablet(s) Oral e very night at bedtime as needed for sleep 02/09/2019 03/10/2019 Inactive Generic For:LAVELLE AX 1MG 10/11/2016 11:15:13 AM Xanax 1 mg tablet RxNorm: 840536 1-2 Tablet(s) Oral e very night at bedtime as needed for sleep 01/22/2019 02/08/2019 Inactive Generic For:LAVELLE AX 1MG 10/11/2016 11:15:13 AM Celexa 40 mg tablet RxNorm: 958689 1 Tablet(s) Oral QD 01/17/2019 Active - First Attempt Ref: [id number] Xanax 1 mg tablet RxNorm: 027110 1 Tablet(s) Oral every night a t bedtime 01/08/2019 01/21/2019 Inactive levothyroxine 88 mcg tablet RxNorm: 488905 TAKE 1 TABLET BY NINA TH DAILY 12/19/2018 06/16/2019 Inactive - First Attempt Ref: [id number] Xanax 1 mg tablet RxNorm: 462157 1 Tablet(s) Oral every night a t bedtime 12/06/2018 01/05/2019 Inactive Singulair 10 mg tablet RxNorm: 821160 1 Tablet(s) Oral every ni ght at bedtime 11/23/2018 11/17/2019 Active - First Attempt Ref: [id number] Celexa 40 mg tablet RxNorm: 346661 1 Tablet(s) Oral 11/23/20182018 Inactive - First Attempt Ref: [id number] cyclobenzaprine 10 mg tablet RxNorm: 381999 1 Tablet(s) Oral three times a day as needed for muscle spasm 11/23/2018 02/11/2019 Inactive Xanax 1 mg tablet RxNorm: 287655 1 Tablet(s) PO QHS 11/06/20182018 Inactive Xanax 1 mg tablet RxNorm: 743641 1 Tablet(s) PO QHS 09/26/20182018 Inactive Singulair 10 mg tablet RxNorm: 727704 TAKE 1 TABLET BY MOUTH EVERY NIGHT AT BEDTIME 08/16/2018 11/22/2018 Inactive - First Attempt Ref: [id number] Xanax 1 mg tablet RxNorm: 567962 1 Tablet(s) PO QHS 08/01/20182018 Inactive levothyroxine 88 mcg tablet RxNorm: 331253 TAKE 1 TABLET BY NINA TH DAILY 07/31/2018 12/18/2018 Inactive - First Attempt Ref: [id number] Celexa 40 mg tablet RxNorm: 700465 TAKE 1 TABLET BY MOUTH DAILY 04/201811/22/2018 Inactive - First Attempt Ref: [id number] bupropion HCl SR 100 mg tablet,12 hr sustained-release RxNor m: 410019 1 Tablet(s) PO BID 07/12/2018 07/06/2019 Inactive - Ref: [id number] 7 Claritin-D 24 Hour 10 mg-240 mg tablet,extended release RxNo rm: 4911404 1 Tablet(s) PO QD 06/29/2018 2018 Inactive Claritin-D 24 Hour 10 mg-240 mg tablet,extended release RxNo rm: 1963718 1 Tablet(s) PO QD 06/29/2018 2018 Inactive Xanax 1 mg tablet RxNorm: 900893 1-2 Tablet(s) PO QHS as needed for sleep 05/26/2018 06/23/2018 Inactive Generic For:XANAX 1M G 10/11/2016 11:15:13 AM Xanax 1 mg tablet RxNorm: 474618 1-2 Tablet(s) PO QHS as needed for sleep 03/28/2018 05/25/2018 Inactive Generic For:XANAX 1M G 10/11/2016 11:15:13 AM Macrobid 100 mg capsule RxNorm: 769099 1 Capsule(s) PO BID 03/27/1903/31/2018 Inactive gabapentin 300 mg capsule RxNorm: 241720 1 Capsule(s) PO QHS 201703/26/2018 Inactive Claritin-D 24 Hour 10 mg-240 mg tablet,extended release RxNo rm: 9553103 1 Tablet(s) PO QD 01/26/2018 02/24/2018 Inactive gabapentin 100 mg capsule RxNorm: 173117 1 Capsule(s) P O QHS for 1 week then 2 po q HS for 2 weeks then 3 po q HS 01/24/2018 03/26/2018 Inactive Xanax 1 mg tablet RxNorm: 024839 1-2 Tablet(s) PO QHS as needed for sleep 01/24/2018 03/24/2018 Inactive Generic For:XANAX 1M G 10/11/2016 11:15:13 AM prednisone 20 mg tablet RxNorm: 146106 1 Tablet(s) PO T ID for 3 days then 1 po BID for 3 days then one daily for 3 days 12/29/2017 03/26/2018 Inactiv e prednisone 20 mg tablet RxNorm: 281139 3 Tablet(s) PO T ID for 3 days then 1 po BID for 3 days then one daily for 3 days 12/29/2017 12/29/2017 Inactiv e Macrobid 100 mg capsule RxNorm: 771550 1 Capsule(s) PO BID 12/30/19 18 01/02/2018 Inactive Xanax 1 mg tablet RxNorm: 860202 1-2 Tablet(s) PO QHS as needed for sleep 12/28/2017 01/23/2018 Inactive Generic For:XANAX 1M G 10/11/2016 11:15:13 AM Medrol (Walter) 4 mg tablets in a dose pack RxNorm: 474709 Tablet(s) PO take as directed 12/01/2017 03/26/2018 Inactive Keflex 750 mg capsule RxNorm: 798752 1 Capsule(s) PO BID 12/01/2017 1 Inactive clindamycin HCl 300 mg capsule RxNorm: 641605 2 Capsule(s) PO TID 1 12/08/2017 Inactive Xanax 1 mg tablet RxNorm: 658199 1-2 Tablet(s) PO QHS as needed for sleep 11/28/2017 12/27/2017 Inactive Generic For:XANAX 1M G 10/11/2016 11:15:13 AM mupirocin 2 % topical ointment RxNorm: 463838 1 Application OTIC BI D 11/28/2017 08/09/2018 Inactive Xanax 1 mg tablet RxNorm: 895895 1-2 Tablet(s) PO QHS as needed for sleep 10/27/2017 11/25/2017 Inactive Generic For:XANAX 1M G 10/11/2016 11:15:13 AM Macrobid 100 mg capsule RxNorm: 924584 1 Capsule(s) PO BID 10/11/19 18 10/16/2017 Inactive Medrol (Walter) 4 mg tablets in a dose pack RxNorm: 788207 Tablet(s) PO take as directed 10/10/2017 11/16/2017 Inactive Xanax 1 mg tablet RxNorm: 926375 1-2 Tablet(s) PO QHS as needed for sleep 09/28/2017 10/26/2017 Inactive Generic For:XANAX 1M G 10/11/2016 11:15:13 AM Xanax 1 mg tablet RxNorm: 523158 1-2 Tablet(s) PO QHS as needed for sleep 08/30/2017 09/27/2017 Inactive Generic For:XANAX 1M G 10/11/2016 11:15:13 AM Xanax 1 mg tablet RxNorm: 928138 1-2 Tablet(s) PO QHS as needed for sleep 08/30/2017 08/29/2017 Inactive Generic For:XANAX 1M G 10/11/2016 11:15:13 AM Xanax 1 mg tablet RxNorm: 983763 1-2 Tablet(s) PO QHS as needed for sleep 08/01/2017 08/29/2017 Inactive Generic For:XANAX 1M G 10/11/2016 11:15:13 AM Xanax 1 mg tablet RxNorm: 327784 1-2 Tablet(s) PO QHS as needed for sleep 06/29/2017 2017 Inactive Generic For:XANAX 1M G 10/11/2016 11:15:13 AM Claritin-D 24 Hour 10 mg-240 mg tablet,extended release RxNo rm: 6306253 1 Tablet(s) PO QD 06/29/2017 2017 Inactive levothyroxine 88 mcg tablet RxNorm: 247643 1 Tablet(s) PO QD 201709/10/2017 Inactive Xanax 1 mg tablet RxNorm: 573131 1-2 Tablet(s) PO QHS as needed for sleep 05/26/2017 06/28/2017 Inactive Generic For:XANAX 1M G 10/11/2016 11:15:13 AM Claritin-D 24 Hour 10 mg-240 mg tablet,extended release RxNo rm: 1335925 1 Tablet(s) PO QD 05/26/2017 06/24/2017 Inactive bupropion HCl SR 100 mg tablet,12 hr sustained-release RxNor m: 750983 Tablet(s) Take 1 tablet by mouth two times daily 04/06/2017 12/31/2017 Inactive - Ref: [id number] Xanax 1 mg tablet RxNorm: 717920 1-2 Tablet(s) PO QHS as needed for sleep 03/24/2017 05/22/2017 Inactive Generic For:XANAX 1M G 10/11/2016 11:15:13 AM Medrol (Walter) 4 mg tablets in a dose pack RxNorm: 596069 Tablet(s) P O 02/16/2017 03/27/2017 Inactive Xanax 1 mg tablet RxNorm: 792950 Tablet(s) TAKE ONE T O TWO TABLETS BY MOUTH AT BEDTIME NEEDED 02/16/2017 03/17/2017 Inactive Generic For:XA NAX 1MG 10/11/2016 11:15:13 AM Claritin-D 24 Hour 10 mg-240 mg tablet,extended release RxNo rm: 1057253 1 Tablet(s) PO QD 02/16/2017 04/16/2017 Inactive cefdinir 300 mg capsule RxNorm: 867725 2 Capsule(s) PO QD 02/16/2017 02/25/2017 Inactive Celexa 40 mg tablet RxNorm: 340028 Tablet(s) Take 1 tablet by m outh daily 12/23/2016 09/18/2017 Inactive - Ref: [id number] Xanax 1 mg tablet RxNorm: 118239 Tablet(s) TAKE ONE T O TWO TABLETS BY MOUTH AT BEDTIME NEEDED 12/16/2016 01/14/2017 Inactive Generic For:XA NAX 1MG 10/11/2016 11:15:13 AM Xanax 1 mg tablet RxNorm: 862032 Tablet(s) TAKE ONE T O TWO TABLETS BY MOUTH AT BEDTIME NEEDED 11/18/2016 12/15/2016 Inactive Generic For:XA NAX 1MG 10/11/2016 11:15:13 AM Xanax 1 mg tablet RxNorm: 163259 TAKE ONE TO TWO TABL ETS BY MOUTH AT BEDTIME NEEDED 10/11/2016 11/17/2016 Inactive Generic For:XANA X 1MG 10/11/2016 11:15:13 AM Mobic 15 mg tablet RxNorm: 880743 1 Tablet(s) PO QD 09/06/20162016 Inactive Claritin-D 24 Hour 10 mg-240 mg tablet,extended release RxNo rm: 8811055 1 Tablet(s) PO QD 09/02/2016 11/30/2016 Inactive prednisone 20 mg tablet RxNorm: 621785 1 Tablet(s) PO T ID for 3 days then 1 po BID for 3 days then one daily for 3 days 08/16/2016 03/27/2017 Inactiv e cefdinir 300 mg capsule RxNorm: 168721 2 Capsule(s) PO QD 08/16/2016 09/05/2016 Inactive Xanax 1 mg tablet RxNorm: 340758 TAKE ONE TO TWO TABL ETS BY MOUTH AT BEDTIME NEEDED 08/05/2016 10/11/2016 Inactive Generic For:XANA X 1MG 08/05/2016 2:27:03 PM08/04/2016 4:15:22 PM Singulair 10 mg tablet RxNorm: 599843 1 Tablet(s) PO QHS 07/06/2016 0 09/03/2016 Inactive prednisone 20 mg tablet RxNorm: 906875 1 Tablet(s) PO T ID for 3 days then 1 po BID for 3 days then one daily for 3 days 06/15/2016 07/05/2016 Inactiv e Singulair 10 mg tablet RxNorm: 616851 1 Tablet(s) PO QHS 06/15/2016 0 07/05/2016 Inactive cefdinir 300 mg capsule RxNorm: 600059 2 Capsule(s) PO QD 06/15/2016 07/05/2016 Inactive Xanax 1 mg tablet RxNorm: 746684 1-2 Tablet(s) PO QHS 05/21/201610/2016 Inactive Claritin-D 24 Hour 10 mg-240 mg tablet,extended release RxNo rm: 3519908 1 Tablet(s) PO QD 04/09/2016 07/07/2016 Inactive Xanax 1 mg tablet RxNorm: 996342 1-2 Tablet(s) PO QHS 03/23/201604/29 Inactive levothyroxine 88 mcg tablet RxNorm: 774647 1 Tablet(s) PO QD 201606/13/2017 Inactive bupropion HCl SR 100 mg tablet,sustained-release RxNorm: 993 503 Take 1 tablet by mouth two times daily 03/15/2016 12/09/2016 Inactive - Ref: 20 [id number] Celexa 40 mg tablet RxNorm: 491478 Take 1 tablet by mouth daily 12/23/2016 Inactive - Ref: [id number] Xanax 1 mg tablet RxNorm: 122703 1-2 Tablet(s) PO QHS 02/17/201603/01 Inactive levothyroxine 88 mcg tablet RxNorm: 048192 1 Tablet(s) PO QD 201502/22/2016 Inactive Xanax 1 mg tablet RxNorm: 313653 1-2 Tablet(s) PO QHS 11/25/201511/29 Inactive levothyroxine 88 mcg tablet RxNorm: 665384 1 Tablet(s) PO QD 201511/24/2015 Inactive temazepam 30 mg capsule RxNorm: 694656 1 Capsule(s) PO QHS 11/13/19 16 11/24/2015 Inactive Xanax 1 mg tablet RxNorm: 485661 1-2 Tablet(s) PO QHS 09/15/201510/29 Inactive Celexa 40 mg tablet RxNorm: 076122 1 Tablet(s) PO QD 1 Tablet(s ) PO QD 09/10/2015 09/16/2015 Inactive bupropion HCl SR 100 mg tablet,sustained-release RxNorm: 993 503 1 Tablet(s) PO BID 09/10/2015 09/23/2015 Inactive Xanax 1 mg tablet RxNorm: 082508 1-2 Tablet(s) PO QHS 09/10/201508/28 Inactive Xanax 1 mg tablet RxNorm: 439929 1-2 Tablet(s) PO QHS 08/11/201508/28 Inactive cyclobenzaprine 10 mg tablet RxNorm: 927981 1 Tablet(s) PO TID prn spasm 07/09/2015 11/23/2018 Inactive Celexa 40 mg tablet RxNorm: 739069 1 Tablet(s) PO QD 06/06/201508/03 Inactive Xanax 1 mg tablet RxNorm: 754972 1-2 Tablet(s) PO QHS 06/04/201505/2015 Inactive levothyroxine 88 mcg tablet RxNorm: 301555 1 Tablet(s) PO QD 201511/23/2015 Inactive Ceftin 500 mg tablet RxNorm: 137014 1 Tablet(s) PO BID 05/05/2015 Inactive Ceftin 500 mg tablet RxNorm: 488815 1 Tablet(s) PO BID 05/05/201507/2015 Inactive meloxicam 15 mg tablet RxNorm: 917773 1 Tablet(s) PO QD 04/16/2015 Inactive meloxicam 15 mg tablet RxNorm: 649617 1 Tablet(s) PO QD 04/16/2015 Inactive diclofenac sodium 75 mg tablet,delayed release RxNorm: 09304 6 1 Tablet(s) PO BID 04/04/2015 04/15/2015 Inactive diclofenac sodium 75 mg tablet,delayed release RxNorm: 16849 6 1 Tablet(s) PO BID 04/04/2015 04/03/2015 Inactive Tivorbex 40 mg capsule RxNorm: 6711285 1 Capsule(s) PO TID 03/24/19 16 04/02/2015 Inactive bupropion HCl SR 100 mg tablet,sustained-release RxNorm: 993 503 1 Tablet(s) PO BID 03/11/2015 09/06/2015 Inactive cyclobenzaprine 10 mg tablet RxNorm: 137467 1 Tablet(s) PO TID prn spasm 03/11/2015 07/08/2015 Inactive levothyroxine 88 mcg tablet RxNorm: 693951 1 Tablet(s) PO QD 201405/27/2015 Inactive Claritin-D 24 Hour 10 mg-240 mg tablet,extended release RxNo rm: 0673195 1 Tablet(s) PO QD 02/27/2015 05/27/2015 Inactive cefuroxime axetil 500 mg tablet RxNorm: 746719 1 Tablet(s) PO BID 1 03/12/2015 Inactive Celexa 40 mg tablet RxNorm: 284538 1 Tablet(s) PO QD 02/05/201504/05 Inactive levothyroxine 75 mcg tablet RxNorm: 080771 1 Tablet(s) PO QD 201402/26/2015 Inactive Celexa 40 mg tablet RxNorm: 968724 1 Tablet(s) PO QD 10/09/201402/04 Inactive Activella 1 mg-0.5 mg tablet RxNorm: 9531743 1 Tablet(s) PO QD 08/2802/26/2015 Inactive bupropion HCl SR 100 mg tablet,sustained-release RxNorm: 993 503 1 Tablet(s) PO BID 09/12/2014 03/10/2015 Inactive levothyroxine 75 mcg tablet RxNorm: 501468 1 Tablet(s) PO QD 201412/09/2014 Inactive levothyroxine 75 mcg tablet RxNorm: 407499 1 Tablet(s) PO QD 201409/11/2014 Inactive Celexa 40 mg tablet RxNorm: 077819 1 Tablet(s) PO QD 08/12/201410/08 Inactive Xanax 1 mg tablet RxNorm: 769159 1-2 Tablet(s) PO QHS 08/12/201409/28 Inactive Claritin-D 24 Hour 10 mg-240 mg tablet,extended release RxNo rm: 7876709 1 Tablet(s) PO QD 06/13/2014 09/10/2014 Inactive cyclobenzaprine 10 mg tablet RxNorm: 713352 1 Tablet(s) PO TID prn spasm 06/12/2014 02/26/2015 Inactive Xanax 1 mg tablet RxNorm: 909737 1-2 Tablet(s) PO QHS 05/09/201406/28 Inactive levothyroxine 75 mcg tablet RxNorm: 384466 1 Tablet(s) PO QD 201407/08/2014 Inactive cephalexin 500 mg capsule RxNorm: 014983 1 Capsule(s) PO QOD 201402/26/2015 Inactive simvastatin 10 mg tablet RxNorm: 294252 1 Tablet(s) PO QHS 04/10/19 15 06/12/2014 Inactive Xanax 1 mg tablet RxNorm: 983694 1-2 Tablet(s) PO QHS 04/10/201404/28 Inactive levothyroxine 75 mcg tablet RxNorm: 963645 1 Tablet(s) PO QD 201404/09/2014 Inactive levothyroxine 75 mcg capsule RxNorm: 947668 1 Capsule(s) PO QD 03/3104/10/2014 Inactive Activella 1 mg-0.5 mg tablet RxNorm: 9437036 1 Tablet(s) PO QD 03/0109/11/2014 Inactive bupropion HCl SR 100 mg tablet,sustained-release RxNorm: 993 503 1 Tablet(s) PO BID 03/04/2014 08/30/2014 Inactive Activella 1 mg-0.5 mg tablet RxNorm: 4415093 1 Tablet(s) PO QD 01/2803/18/2014 Inactive levothyroxine 75 mcg capsule RxNorm: 064976 1 Capsule(s) PO QD 12/2904/08/2014 Inactive simvastatin 10 mg tablet RxNorm: 338024 1 Tablet(s) PO QHS 01/10/20 14 04/08/2014 Inactive cyclobenzaprine 10 mg tablet RxNorm: 450833 1 Tablet(s) PO TID prn spasm 01/09/2014 04/08/2014 Inactive Cipro 500 mg tablet RxNorm: 091148 1 Tablet(s) PO BID 12/25/201304/2013 Inactive Cipro 500 mg tablet RxNorm: 583632 1 Tablet(s) PO BID 12/25/201311/29 Inactive bupropion HCl SR 100 mg tablet,sustained-release RxNorm: 993 503 1 Tablet(s) PO QAM 12/11/2013 03/03/2014 Inactive cephalexin 500 mg capsule RxNorm: 688889 1 Capsule(s) PO QOD 201304/09/2014 Inactive Xanax 1 mg tablet RxNorm: 580132 1-2 Tablet(s) PO QHS 10/15/201310/29 Inactive simvastatin 10 mg tablet RxNorm: 469057 1 Tablet(s) PO QHS 10/11/19 14 01/07/2014 Inactive Celexa 40 mg tablet RxNorm: 149524 Tablet(s) PO TAKE 1 TABLET BY MOUTH ONCE DAILY. 09/18/2013 09/17/2013 Inactive Xanax 1 mg tablet RxNorm: 117511 1-2 Tablet(s) PO QHS 08/13/201308/28 Inactive simvastatin 10 mg tablet RxNorm: 283405 1 Tablet(s) PO QHS 07/12/19 14 10/08/2013 Inactive bupropion HCl SR 100 mg tablet,sustained-release RxNorm: 993 503 1 Tablet(s) PO QAM 05/22/2013 11/17/2013 Inactive Pamelor 10 mg capsule RxNorm: 606939 1 Capsule(s) PO QHS for PLATA /sleep 05/22/2013 06/04/2013 Inactive Xanax 1 mg tablet RxNorm: 752555 1-2 Tablet(s) PO QHS 05/15/201305/29 Inactive Pamelor 10 mg capsule RxNorm: 308612 1 Capsule(s) PO QHS for PLATA /sleep 05/15/2013 05/21/2013 Inactive Xanax 1 mg tablet RxNorm: 628862 1 Tablet(s) PO QHS 04/27/20132013 Inactive Zovirax 800 mg tablet RxNorm: 992791 1 Tablet(s) PO TID 04/05/2013 Inactive Xanax 1 mg tablet RxNorm: 431470 1 Tablet(s) PO QHS 04/03/2013 No Sto p Date Active bupropion HCl SR 100 mg tablet,sustained-release RxNorm: 993 503 1 Tablet(s) PO QAM 03/26/2013 05/21/2013 Inactive bupropion HCl SR 100 mg tablet,sustained-release RxNorm: 993 503 1 Tablet(s) PO QAM 03/06/2013 03/25/2013 Inactive Pamelor 10 mg capsule RxNorm: 637191 1 Capsule(s) PO QHS for PLATA /sleep 02/14/2013 05/14/2013 Inactive levothyroxine 75 mcg capsule RxNorm: 103889 1 Capsule(s) PO QD 12/2901/08/2014 Inactive simvastatin 10 mg tablet RxNorm: 062018 1 Tablet(s) PO QHS TAKE 1 TABLET BY MOUTH ONCE DAILY AT BEDTIME. 01/15/2013 07/10/2013 Inactive cyclobenzaprine 10 mg tablet RxNorm: 228354 1 Tablet(s) PO TID prn spasm 12/25/2012 06/22/2013 Inactive Pamelor 10 mg capsule RxNorm: 078270 1 Capsule(s) PO QHS for PLATA /sleep 11/29/2012 02/14/2013 Inactive Celexa 40 mg tablet RxNorm: 395306 Tablet(s) PO TAKE 1 TABLET BY MOUTH ONCE DAILY. 10/11/2012 09/17/2013 Inactive simvastatin 10 mg tablet RxNorm: 222956 Tablet(s) PO TA KE 1 TABLET BY MOUTH ONCE DAILY AT BEDTIME. 10/11/2012 01/14/2013 Inactive simvastatin 10 mg tablet RxNorm: 211481 1 Tablet(s) PO QD 07/11/2012 10/08/2012 Inactive simvastatin 10 mg tablet RxNorm: 691077 1 Tablet(s) PO QD 04/14/2012 07/11/2012 Inactive simvastatin 10 mg tablet RxNorm: 813613 1 Tablet(s) PO QD 04/14/2012 04/13/2012 Inactive Celexa 40 mg tablet RxNorm: 396280 1 Tablet(s) PO QD 03/15/201209/10 Inactive cyclobenzaprine 10 mg tablet RxNorm: 954510 1 Tablet(s) PO TID prn spasm 02/02/2012 02/01/2012 Inactive cyclobenzaprine 10 mg tablet RxNorm: 050692 1 Tablet(s) PO TID prn spasm 02/02/2012 07/30/2012 Inactive Diflucan 100 mg Tab RxNorm: 894989 1 Tablet(s) PO QD 08/17/201108/22 Inactive Cipro 250 mg Tab RxNorm: 874253 1 Tablet(s) PO QD 08/17/2011 10/15/19 12 Inactive Levaquin 500 mg Tab RxNorm: 073448 1 Tablet(s) PO QD 08/17/201108/22 Inactive Pyridium 200 mg Tab RxNorm: 0232865 1 Tablet(s) PO TID 10/14/2010 Inactive may turn urine orange-red color. Cipro 500 mg Tab RxNorm: 699313 1 Tablet(s) PO BID 10/14/2010 011 Inactive levothyroxine 75 mcg capsule RxNorm: 573605 1 Capsule(s) PO QD 12/3001/14/2011 Inactive Vitamin D3 5,000 unit tablet RxNorm: 360274 1 Tablet(s) PO QD No Star t Date Active Nasacort 55 mcg nasal spray aerosol RxNorm: 4722331 2 Sp ray NASAL each nostril QHS No Start Date Active cyclobenzaprine 10 mg tablet RxNorm: 516377 1 Tablet(s) PO TID as needed No Start Date 11/22/2018 Inactive Vitamin D2 1,000 unit capsule RxNorm: 662281 3 Capsule(s) PO QD No Start Date 11/16/2017 Inactive diclofenac sodium 75 mg tablet,delayed release RxNorm: 36639 6 1 Tablet(s) PO BID No Start Date 03/16/2016 Inactive cephalexin 500 mg capsule RxNorm: 490450 1 Capsule(s) PO QOD No Sta rt Date 12/04/2013 Inactive cyclobenzaprine 10 mg tablet RxNorm: 444410 1 Tablet(s) PO QHS No S tart Date 02/01/2012 Inactive loratadine 10 mg tablet RxNorm: 175977 1 Tablet(s) PO QHS No Start Date 05/14/2019 Inactive hydrocodone 5 mg-acetaminophen 500 mg tablet RxNorm: 563553 1 -2 Tablet(s) PO Q6H as needed No Start Date 08/09/2018 Inactive etodolac 400 mg tablet RxNorm: 364698 1 Tablet(s) PO TID No Start D ate 09/17/2018 Inactive Xanax 1 mg tablet RxNorm: 178181 1 Tablet(s) PO QHS No Start Date 04/2013 Inactive Vitamin D3 1,000 unit capsule RxNorm: 796918 1 Capsule(s) PO QD No Start Date 06/12/2014 Inactive estradiol 2 mg tablet RxNorm: 000268 1/2 Tablet(s) PO QD No Start D ate 03/05/2013 Inactive Celexa 40 mg tablet RxNorm: 635580 1 Tablet(s) PO QD No Start Date Inactive Activella 1 mg-0.5 mg tablet RxNorm: 5138051 1 Tablet(s) PO QD No S tart Date 07/10/2012 Inactive medroxyprogesterone 5 mg tablet RxNorm: 9759741 1/2 Tablet(s) PO QD No Start Date 03/05/2013 Inactive levothyroxine 88 mcg tablet RxNorm: 987932 1 Tablet(s) PO QD No Sta rt Date 02/26/2015 Inactive Keflex 500 mg capsule RxNorm: 312967 1 Capsule(s) PO PRN No Start D ate 08/16/2011 Inactive Activella 1 mg-0.5 mg tablet RxNorm: 7286339 1 Tablet(s) PO QHS No Start Date 03/27/2017 Inactive Activella 1 mg-0.5 mg tablet RxNorm: 8581210 1 Tablet(s) PO QD No S tart Date 02/06/2014 Inactive Flexeril 10 mg Tab RxNorm: 199479 1 Tablet(s) PO TID No Start Date Inactive prn spasm simvastatin 10 mg tablet RxNorm: 381619 1 Tablet(s) PO QD No Start Date 04/13/2012 Inactive Medication Administered No Medication Administered data Immunizations Vaccine Codes Date Status Influenza CVX: 135 01/16/2019 Complete Pneumococcal CVX: 133 01/16/2019 Complete Results No Results data Procedures Procedure Codes Date URINE CULTURE/ COLONY COUNT CPT-4: 97356 07/26/2019 URINALYSIS NONAUTO W/O SCOPE CPT-4: 50925 07/17/2019 URINE CULTURE/ COLONY COUNT CPT-4: 58613 07/17/2019 DEXAMETHASONE SODIUM PHOS CPT-4: J1100 05/14/2019 THER/PROPH/DIAG INJ SC/IM CPT-4: 49685 05/14/2019 TRIAMCINOLONE ACET INJ NOS CPT-4: J3301 05/14/2019 FLU VACC PRSV FREE INC ANTIG 65 AND OLDER CPT-4: 49628 01/16/2019 FLU VACC PRSV FREE INC ANTIG 65 AND OLDER CPT-4: 65785 01/16/2019 PNEUMOCOCCAL VACC 13 NARESH IM CPT-4: 16982 01/16/2019 SKIN FUNGI CULTURE CPT-4: 22520 01/16/2019 IMMUNIZATION ADMIN CPT-4: 73641 01/16/2019 IMMUNIZATION ADMIN EACH ADD CPT-4: 84006 01/16/2019 THER/PROPH/DIAG INJ SC/IM CPT-4: 98686 01/17/2018 KETOROLAC TROMETHAMINE INJ CPT-4: J1885 01/17/2018 THER/PROPH/DIAG INJ SC/IM CPT-4: 31287 01/17/2018 PROMETHAZINE HCL INJECTION CPT-4: J2550 01/17/2018 URINALYSIS NONAUTO W/O SCOPE CPT-4: 63151 12/29/2017 URINE CULTURE/ COLONY COUNT CPT-4: 28504 12/29/2017 THER/PROPH/DIAG INJ SC/IM CPT-4: 38618 11/30/2017 TRIAMCINOLONE ACET INJ NOS CPT-4: J3301 11/30/2017 DEXAMETHASONE SODIUM PHOS CPT-4: J1100 11/30/2017 CEFTRIAXONE SODIUM INJECTION CPT-4: J0696 11/29/2017 THER/PROPH/DIAG INJ SC/IM CPT-4: 43524 11/29/2017 CEFTRIAXONE SODIUM INJECTION CPT-4: J0696 11/28/2017 THER/PROPH/DIAG INJ SC/IM CPT-4: 25454 11/28/2017 URINALYSIS NONAUTO W/O SCOPE CPT-4: 14999 10/10/2017 THER/PROPH/DIAG INJ SC/IM CPT-4: 49061 10/10/2017 TRIAMCINOLONE ACET INJ NOS CPT-4: J3301 10/10/2017 DEXAMETHASONE SODIUM PHOS CPT-4: J1100 10/10/2017 CEFTRIAXONE SODIUM INJECTION CPT-4: J0696 10/10/2017 THER/PROPH/DIAG INJ SC/IM CPT-4: 03677 10/10/2017 URINE CULTURE/ COLONY COUNT CPT-4: 75154 10/10/2017 THER/PROPH/DIAG INJ SC/IM CPT-4: 41833 11/02/2016 KETOROLAC TROMETHAMINE INJ CPT-4: J1885 11/02/2016 THER/PROPH/DIAG INJ SC/IM CPT-4: 01666 06/15/2016 TRIAMCINOLONE ACET INJ NOS CPT-4: J3301 06/15/2016 DEXAMETHASONE SODIUM PHOS CPT-4: J1100 06/15/2016 THER/PROPH/DIAG INJ SC/IM CPT-4: 36218 04/09/2016 KETOROLAC TROMETHAMINE INJ CPT-4: J1885 04/09/2016 PROMETHAZINE HCL INJECTION CPT-4: J2550 04/09/2016 EXC TR-EXT B9+ERASMO 0.5 CM< CPT-4: 89540 06/12/2015 URINALYSIS NONAUTO W/O SCOPE CPT-4: 71475 05/05/2015 URINE CULTURE/ COLONY COUNT CPT-4: 51586 05/05/2015 URINALYSIS NONAUTO W/O SCOPE CPT-4: 75018 03/24/2015 URINALYSIS NONAUTO W/O SCOPE CPT-4: 85927 02/27/2015 URINE CULTURE/ COLONY COUNT CPT-4: 82497 02/27/2015 THER/PROPH/DIAG INJ SC/IM CPT-4: 86438 04/18/2014 KETOROLAC TROMETHAMINE INJ CPT-4: J1885 04/18/2014 THER/PROPH/DIAG INJ SC/IM CPT-4: 75935 06/05/2013 TRIAMCINOLONE ACET INJ NOS CPT-4: J3301 06/05/2013 THER/PROPH/DIAG INJ SC/IM CPT-4: 70900 11/29/2012 KETOROLAC TROMETHAMINE INJ CPT-4: J1885 11/29/2012 URINALYSIS NONAUTO W/O SCOPE CPT-4: 34780 07/11/2012 URINE CULTURE/ COLONY COUNT CPT-4: 72523 07/11/2012 OCCULT BLOOD FECES CPT-4: 01456 02/17/2012 URINALYSIS NONAUTO W/O SCOPE CPT-4: 72188 08/27/2011 URINE CULTURE/ COLONY COUNT CPT-4: 08097 08/27/2011 URINALYSIS NONAUTO W/O SCOPE CPT-4: 43254 08/17/2011 URINE CULTURE/ COLONY COUNT CPT-4: 10055 08/17/2011 URINALYSIS NONAUTO W/O SCOPE CPT-4: 33378 12/28/2010 URINE CULTURE/ COLONY COUNT CPT-4: 90579 12/28/2010 URINALYSIS NONAUTO W/O SCOPE CPT-4: 13849 11/09/2010 URINE CULTURE/ COLONY COUNT CPT-4: 53377 11/09/2010 URINALYSIS NONAUTO W/O SCOPE CPT-4: 24388 10/29/2010 URINE CULTURE/ COLONY COUNT CPT-4: 48153 10/29/2010 URINE CULTURE/ COLONY COUNT CPT-4: 25250 10/14/2010 URINALYSIS NONAUTO W/O SCOPE CPT-4: 10443 10/14/2010 Vital Signs Date Vital 07/17/2019 Blood [...] 1: 122/74 Code: 8480-6 BMI: 22.0 Code: 63534-4 Heart Rate 1: 72 bpm Height: 5'3" [...] 1: 126/72 Code: 8480-6 BMI: 22.7 Code: 09100-3 Heart Rate 1: 72 bpm Height: 5'3" [...] 1: 112/70 Code: 8480-6 BMI: 22.0 Code: 66751-2 Heart Rate 1: 80 bpm Height: 5'3" [...] 1: 122/64 Code: 8480-6 BMI: 21.4 Code: 00005-4 Heart Rate 1: 88 bpm Height: 5'3" Respiratory Rate: 22 bpm SpO2: 96% Tempera ture: 36.8 (C) / 98.2 (F) Weight: 121 lbs 06/22/2017 Blood Pressure 1: 124/78 Code: 8480-6 BMI: 21.6 Code: 58238-6 Heart Rate 1: 76 bpm Height: 5'3" Respiratory Rate: 20 bpm Temperature: 36 .8 (C) / 98.3 (F) Weight: 122 lbs 03/28/2017 Blood Pressure 1: 92/60 Code: 8480-6 BMI: 20.4 C ode: 89717-4 Heart Rate 1: 72 bpm Height: 5'3" Respiratory Rate: 20 bpm Temperature: 36 .9 (C) / 98.4 (F) Weight: 115 lbs 02/16/2017 Blood Pressure 1: 106/70 Code: 8480-6 BMI: 21.3 Code: 91668-4 Heart Rate 1: 82 bpm Height: 5'3" Respiratory Rate: 22 bpm SpO2: 97% Tempera ture: 36.1 (C) / 97.0 (F) Weight: 120 lbs 09/06/2016 Blood Pressure 1: 118/64 Code: 8480-6 BMI: 22.7 Code: 31251-9 Heart Rate 1: 78 bpm Height: 5'3" Respiratory Rate: 20 bpm SpO2: 98% Tempera ture: 36.2 (C) / 97.2 (F) Weight: 128 lbs 08/16/2016 Blood Pressure 1: 118/78 Code: 8480-6 BMI: 22.1 Code: 53622-9 Heart Rate 1: 78 bpm Height: 5'3" Respiratory Rate: 20 bpm SpO2: 97% Tempera ture: 36.2 (C) / 97.1 (F) Weight: 125 lbs 07/19/2016 Blood Pressure 1: 116/68 Code: 8480-6 BMI: 22.5 Code: 71052-1 Heart Rate 1: 76 bpm Height: 5'3" Respiratory Rate: 20 bpm Temperature: 36 .8 (C) / 98.2 (F) Weight: 127 lbs 07/06/2016 Blood Pressure 1: 106/70 Code: 8480-6 BMI: 22.5 Code: 89471-8 Heart Rate 1: 72 bpm Height: 5'3" Respiratory Rate: 20 bpm SpO2: 97% Tempera ture: 36.8 (C) / 98.2 (F) Weight: 127 lbs 06/15/2016 Blood Pressure 1: 136/76 Code: 8480-6 BMI: 22.9 Code: 22182-7 Heart Rate 1: 74 bpm Height: 5'3" Respiratory Rate: 18 bpm SpO2: 98% Tempera ture: 36.4 (C) / 97.6 (F) Weight: 129 lbs 04/09/2016 Blood Pressure 1: 124/78 Code: 8480-6 BMI: 23.0 Code: 96759-2 Heart Rate 1: 86 bpm Height: 5'3" Respiratory Rate: 20 bpm SpO2: 96% Tempera ture: 36.5 (C) / 97.7 (F) Weight: 130 lbs 03/17/2016 Blood Pressure 1: 116/74 Code: 8480-6 BMI: 23.4 Code: 43895-8 Heart Rate 1: 84 bpm Height: 5'3" Respiratory Rate: 20 bpm SpO2: 97% Tempera ture: 36.8 (C) / 98.3 (F) Weight: 132 lbs 11/13/2015 Blood Pressure 1: 124/78 Code: 8480-6 BMI: 23.4 Code: 86811-2 Heart Rate 1: 88 bpm Height: 5'3" Respiratory Rate: 24 bpm SpO2: 98% Tempera ture: 36.8 (C) / 98.2 (F) Weight: 132 lbs 06/12/2015 Blood Pressure 1: 126/78 Code: 8480-6 BMI: 23.6 Code: 53771-2 Heart Rate 1: 80 bpm Height: 5'3" Respiratory Rate: 20 bpm Temperature: 36 .9 (C) / 98.4 (F) Weight: 133 lbs 04/22/2015 Blood Pressure 1: 126/68 Code: 8480-6 BMI: 23.6 Code: 38699-3 Heart Rate 1: 80 bpm Height: 5'3" Respiratory Rate: 20 bpm Temperature: 36 .6 (C) / 97.9 (F) Weight: 133 lbs 03/24/2015 Blood Pressure 1: 116/66 Code: 8480-6 BMI: 22.9 Code: 68068-2 Heart Rate 1: 74 bpm Height: 5'3" Respiratory Rate: 20 bpm Temperature: 36 .4 (C) / 97.6 (F) Weight: 129 lbs 02/27/2015 Blood Pressure 1: 106/64 Code: 8480-6 BMI: 22.7 Code: 91191-2 Heart Rate 1: 74 bpm Height: 5'3" Respiratory Rate: 20 bpm Temperature: 36 .8 (C) / 98.2 (F) Weight: 128 lbs 06/13/2014 Blood Pressure 1: 104/66 Code: 8480-6 BMI: 22.7 Code: 69587-1 Heart Rate 1: 84 bpm Height: 5'3" Respiratory Rate: 20 bpm Temperature: 37 .0 (C) / 98.6 (F) Weight: 128 lbs 04/18/2014 Blood Pressure 1: 112/62 Code: 8480-6 BMI: 22.0 Code: 24251-1 Heart Rate 1: 82 bpm Height: 5'3" Respiratory Rate: 18 bpm Temperature: 36 .4 (C) / 97.6 (F) Weight: 124 lbs 12/05/2013 Blood Pressure 1: 106/70 Code: 8480-6 BMI: 23.7 Code: 71689-7 Heart Rate 1: 84 bpm Height: 5'3" [...] 1: 126/88 Code: 8480-6 BMI: 22.3 Code: 86295-7 Heart Rate 1: 96 bpm Height: 5'4" Respiratory Rate: 20 bpm Temperature: 37 .7 (C) / 99.9 (F) Weight: 130 lbs 11/29/2012 Blood Pressure 1: 122/76 Code: 8480-6 BMI: 23.0 Code: 21861-5 Heart Rate 1: 84 bpm Height: 5'4" Respiratory Rate: 20 bpm Temperature: 36 .9 (C) / 98.4 (F) Weight: 134 lbs 09/26/2012 Blood Pressure 1: 114/76 Code: 8480-6 BMI: 23.0 Code: 85777-6 Heart Rate 1: 84 bpm Height: 5'4" Respiratory Rate: 20 bpm Temperature: 37 .3 (C) / 99.1 (F) Weight: 134 lbs 07/11/2012 Blood Pressure 1: 126/78 Code: 8480-6 BMI: 23.7 Code: 05983-3 Heart Rate 1: 76 bpm Height: 5'4" Respiratory Rate: 20 bpm Temperature: 37 .1 (C) / 98.7 (F) Weight: 138 lbs 02/02/2012 Blood Pressure 1: 108/70 Code: 8480-6 BMI: 23.2 Code: 84257-4 Heart Rate 1: 88 bpm Height: 5'4" Respiratory Rate: 20 bpm Temperature: 36 .4 (C) / 97.6 (F) Weight: 135 lbs 08/17/2011 Blood Pressure 1: 108/70 Code: 8480-6 BMI: 23.2 Code: 53295-1 Heart Rate 1: 72 bpm Height: 5'4" Respiratory Rate: 20 bpm Temperature: 36 .8 (C) / 98.2 (F) Weight: 135 lbs 10/14/2010 Blood Pressure 1: 120/72 Code: 8480-6 BMI: 23.4 Code: 22114-3 Heart Rate 1: 78 bpm Height: 5'3" Temperature: 36.9 (C) / 98.5 (F) Weight: 132 lbs Functional Status No Functional Status data Reason For Visit Reason For Visit Effective Dates Notes follow up 07/26/2019 repeat urine C&S for [...] Diagnosis: Urinary tract infection[ICD10: N39.0] Alexandra CARROLL [employer] CPT-4: 78333 07/26/2019 ([id number]) OFFICE/OUTPATIENT VISIT EST Diagnosis: Urinary tract infection, site not specified[ICD10: N39.0] Diagnosis: Dysuria[ICD10: R30.0] Vandana CARROLL DO [facility] CPT-4: 40749 07/17/2019 ([id number]) OFFICE/OUTPATIENT VISIT EST Diagnosis: Allergic dermatitis[ICD10: L23.9] Alexandra CARROLL DO [employer] CPT-4: 96007 06/26/2019 ([id number]) OFFICE/OUTPATIENT VISIT EST Diagnosis: Contact dermatitis due to plant[ICD10: L25.5] Diagnosis: Cellulitis of left arm[ICD10: L03.114] Vandana CARROLL DO [employer] CPT-4: 08740 05/14/2019 ([id number]) OFFICE/OUTPATIENT VISIT EST Diagnosis: Ventral hernia[ICD10: K43.9] Diagnosis: Incisional hernia[ICD10: K43.2] Alexandra BURLESONER [facility] CPT-4: 29277 04/10/2019 ([id number]) OFFICE/OUTPATIENT VISIT EST Diagnosis: Insomnia[ICD10: G47.00] Diagnosis: Thrombocytosis[ICD10: D47.3] Alexandra CARROLL [facility] CPT-4: 01971 02/14/2019 ([id number]) OFFICE/OUTPATIENT VISIT EST Diagnosis: Small bowel obstruction[ICD10: K56.609] Diagnosis: FLU VACCINE[ICD10: Z23] Diagnosis: PNEUMOCOCCAL VACCINE[ICD10: Z23] Diagnosis: Onychomycosis[ICD10: B35.1] Alexandra KUNZ [facility] CPT-4: 77333 01/16/2019 ([id number]) OFFICE/OUTPATIENT VISIT EST Diagnosis: Diarrhea, unspecified[ICD10: R19.7] Diagnosis: Radiculopathy, lumbosacral region[ICD10: M54.17] Alexandra CARROLL [facility] CPT-4: 61006 09/18/2018 OFFICE/OUTPATIENT VISIT EST Diagnosis: Other intervertebral disc degeneration, lumbar region[ICD10: M51.36] Diagnosis: Sacroiliitis, not elsewhere classified[ICD10: M46.1] Diagnosis: Obstructive sleep apnea (adult) (pediatric)[ICD10: G47.33] Alexandra CARROLL [facility] CPT-4: 00487 08/10/2018 ([id number]) OFFICE/OUTPATIENT VISIT EST Diagnosis: Fracture of unspecified part of left clavicle, subsequent encounter for fracture with routine healing[ICD10: S42.002D] Diagnosis: Cervicalgia[ICD10: M54.2] Diagnosis: Radiculopathy, lumbosacral region[ICD10: M54.17] Alexandra CARROLL [facility] CPT-4: 05215 03/27/2018 ([id number]) OFFICE/OUTPATIENT VISIT EST Diagnosis: Fracture of unspecified part of left clavicle, subsequent encounter for fracture with routine healing[ICD10: S42.002D] Diagnosis: Other intervertebral disc degeneration, lumbar region[ICD10: M51.36] Diagnosis: Unspecified fracture of first thoracic vertebra, subsequent encounter for fracture with routine healing[ICD10: S22.019D] Diagnosis: Unspecified fracture of second thoracic vertebra, subsequent encounter for fracture with routine healing[ICD10: S22.029D] [facility]: 32576 02/23/2018 ([id number]) OFFICE/OUTPATIENT VISIT EST Diagnosis: Fracture of unspecified part of left clavicle, subsequent encounter for fracture with routine healing[ICD10: S42.002D] Diagnosis: Unspecified fracture of first thoracic vertebra, subsequent encounter for fracture with routine healing[ICD10: S22.019D] Diagnosis: Unspecified fracture of second thoracic vertebra, subsequent encounter for fracture with routine healing[ICD10: S22.029D] Alexandrateja Carroll ALEXANDRA MacyAri [facility]: 48744 01/24/2018 ([id number]) OFFICE/OUTPATIENT VISIT EST Diagnosis: Migraine, unspecified, not intractable, without status migrainosus[ICD10: G43.909] Alexandrateja SHAFFERLINE MacyAri [facility] CPT - 4: 28445 01/17/2018 ([id number]) OFFICE/OUTPATIENT VISIT EST Diagnosis: Hematuria, unspecified[ICD10: R31.9] Diagnosis: Other intervertebral disc degeneration, lumbar region[ICD10: M51.36] Diagnosis: Retention of urine, unspecified[ICD10: R33.9] Alexandrateja Carroll ALEXANDRA MacyAri [facility] CPT-4: 29420 12/29/2017 OFFICE/OUTPATIENT VISIT EST Diagnosis: Fracture of [...] T23.361D] Diagnosis: Low back pain[ICD10: M54.5] Alexandra Crawford Billie [facility] CPT-4: 15280 12/06/2017 ([id number]) OFFICE/OUTPATIENT VISIT EST Diagnosis: Cellulitis of right upper limb[ICD10: L03.113] Diagnosis: Allergy status to other antibiotic agents status[ICD10: Z88.1] Vandana CARROLL DO [facility] CPT-4: 11020 12/01/2017 ([id number]) OFFICE/OUTPATIENT VISIT EST Diagnosis: Cellulitis of right upper limb[ICD10: L03.113] Diagnosis: Allergy status to other antibiotic agents status[ICD10: Z88.1] Vandana CARROLL DO [facility] CPT-4: 76669 11/30/2017 ([id number]) OFFICE/OUTPATIENT VISIT EST Diagnosis: Cellulitis of right upper limb[ICD10: L03.113] Vandana CARROLL DO [facility] CPT-4: 28331 11/29/2017 ([id number]) OFFICE/OUTPATIENT VISIT EST Diagnosis: Cellulitis of right upper limb[ICD10: L03.113] Vandana CARROLL DO [facility] CPT-4: 03907 11/28/2017 ([id number]) OFFICE/OUTPATIENT VISIT EST Diagnosis: Other intervertebral disc degeneration, lumbar region[ICD10: M51.36] Diagnosis: Other retention of urine[ICD10: R33.8] Diagnosis: Primary insomnia[ICD10: F51.01] Diagnosis: Other spondylosis, site unspecified[ICD10: M47.899] Alexandra CARROLL DO [facility] CPT-4: 71375 11/17/2017 ([id number]) OFFICE/OUTPATIENT VISIT EST Diagnosis: Radiculopathy, lumbosacral region[ICD10: M54.17] Diagnosis: Other retention of urine[ICD10: R33.8] Diagnosis: Urinary tract infection, site not specified[ICD10: N39.0] Vandana CARROLL DO [facility] CPT-4: 08882 10/10/2017 ([id number]) PREV VISIT EST AGE 40-64 Diagnosis: Encounter for general adult medical examination without abnormal findings[ICD10: Z00.00] Diagnosis: Other intervertebral disc degeneration, lumbar region[ICD10: M51.36] Diagnosis: Hypothyroidism, unspecified[ICD10: E03.9] Diagnosis: Mixed hyperlipidemia[ICD10: E78.2] Alexandra CARROLL [facility] CPT-4: 79478 06/22/2017 ([id number]) OFFICE/OUTPATIENT VISIT EST Diagnosis: URI, ACUTE[ICD10: J06.9] Alexandra SHAFFERLINE Ty PAREKH [facility] CPT-4: 55407 03/28/2017 OFFICE/OUTPATIENT VISIT EST Diagnosis: Acute sinusitis, unspecified[ICD10: J01.90] [facility]: 80359 02/16/2017 ([id number]) OFFICE/OUTPATIENT VISIT EST Diagnosis: Migraine, unspecified, not intractable, without status migrainosus[ICD10: G43.909] Alexandra CARROLL [facility] CPT - 4: 78713 11/02/2016 ([id number]) OFFICE/OUTPATIENT VISIT EST Diagnosis: Pain in thoracic spine[ICD10: M54.6] Diagnosis: Chondrocostal junction syndrome [Tietze][ICD10: M94.0] [facility]: 16541 09/06/2016 OFFICE/OUTPATIENT VISIT EST Diagnosis: Acute sinusitis, unspecified[ICD10: J01.90] Vidya Manuel [facility] CPT-4: 09936 08/16/2016 ([id number]) OFFICE/OUTPATIENT VISIT EST Diagnosis: Primary insomnia[ICD10: F51.01] Diagnosis: Cramp and spasm[ICD10: R25.2] Diagnosis: Major depressive disorder, single episode, mild[ICD10: F32.0] Alexandra BURLESON [employer] [facility] CPT-4: 22390 07/19/2016 ([id number]) OFFICE/OUTPATIENT VISIT EST Diagnosis: Obstructive sleep apnea (adult) (pediatric)[ICD10: G47.33] Diagnosis: Other fatigue[ICD10: R53.83] Diagnosis: Allergic rhinitis due to pollen[ICD10: J30.1] Diagnosis: Headache[ICD10: R51] Alexandra CARROLL DO [facility] CPT-4: 05487 07/06/2016 ([id number]) OFFICE/OUTPATIENT VISIT EST Diagnosis: Acute recurrent sinusitis, unspecified[ICD10: J01.91] Diagnosis: Allergic rhinitis due to pollen[ICD10: J30.1] Alexandra CARROLL DO [facility] CPT-4: 37388 06/15/2016 ([id number]) OFFICE/OUTPATIENT VISIT EST Diagnosis: Migraine, unspecified, not intractable, without status migrainosus[ICD10: G43.909] Diagnosis: Allergic rhinitis, unspecified[ICD10: J30.9] Nae SHAFFERLINE Ty CARROLL [facility] CPT-4: 77353 04/09/2016 ([id number]) OFFICE/OUTPATIENT VISIT EST Diagnosis: Hypothyroidism, unspecified[ICD10: E03.9] Diagnosis: Other fatigue[ICD10: R53.83] Diagnosis: Mixed hyperlipidemia[ICD10: E78.2] Diagnosis: Major depressive disorder, single episode, mild[ICD10: F32.0] Alexandra CARROLL [employer] [facility] CPT-4: 04250 03/17/2016 ([id number]) OFFICE/OUTPATIENT VISIT EST Diagnosis: Insomnia, unspecified[ICD10: G47.00] Diagnosis: Encounter for therapeutic drug level monitoring[ICD10: Z51.81] Nae SHAFFERLINE Ty CARROLL [employer] [facility] CPT-4: 05373 11/13/2015 ([id number]) OFFICE/OUTPATIENT VISIT EST Diagnosis: Hematuria, unspecified[ICD10: R31.9] Alexandra CARROLL [employer] [facility] CPT-4: 08562 05/05/2015 ([id number]) OFFICE/OUTPATIENT VISIT EST Diagnosis: Other intervertebral disc degeneration, lumbar region[ICD10: M51.36] Diagnosis: Radiculopathy, lumbosacral region[ICD10: M54.17] Alexandra CARROLL DO [facility] CPT-4: 86907 04/22/2015 ([id number]) OFFICE/OUTPATIENT VISIT EST Diagnosis: Low back pain[ICD10: M54.5] Diagnosis: Recurrent and persistent hematuria with unspecified morphologic changes[ICD10: N02.9] Alexandra FORDE MacyAri DEANNE SALGUERO [facility] CPT-4: 09815 03/24/2015 ([id number]) OFFICE/OUTPATIENT VISIT EST Diagnosis: Acute sinusitis, unspecified[ICD10: J01.90] Diagnosis: Headache[ICD10: R51] Diagnosis: Retention of urine, unspecified[ICD10: R33.9] Diagnosis: Hypothyroidism, unspecified[ICD10: E03.9] Alexandra FORDE MacyAri DEANNE SALGUERO [facility] CPT-4: 00908 02/27/2015 ([id number]) PREV VISIT EST AGE 40-64 Diagnosis: ROUTINE MEDICAL EXAM[ICD9: V70.0] Diagnosis: HYPOTHYROIDISM[ICD9: 244.9] Diagnosis: HYPERLIPIDEMIA NEC/NOS[ICD9: 272.4] Alexandra CORDOBA MacyAri DEANNE [employer] [facility] CPT-4: 08674 06/13/2014 ([id number]) OFFICE/OUTPATIENT VISIT EST Diagnosis: CEPHALGIA[ICD9: 784.0] Diagnosis: Nausea[ICD9: 787.02] Shalini VanWendiroxanare ALEXANDRA MacyAri DEANNE [employer] [facility] CPT-4: 23880 04/18/2014 ([id number]) OFFICE/OUTPATIENT VISIT EST Diagnosis: INSOMNIA NOS[ICD9: 780.52] Diagnosis: Complicated grieving[ICD9: 309.0] Alexandra Louise MacyAri DEANNE [employer] [facility] CPT-4: 93778 12/05/2013 ([id number]) OFFICE/OUTPATIENT VISIT EST Diagnosis: Muscle twitch[ICD9: 781.0] Diagnosis: ALLERGIC RHINITIS[ICD9: 477.9] Alexandra FORDE Macy Ari DEANNE [employer] [facility] CPT-4: 17289 06/05/2013 ([id number]) OFFICE/OUTPATIENT VISIT EST Diagnosis: DEPRESSIVE DISORDER NEC[ICD9: 311] Alexandra QUINTERO MacyAri DEANNE [employer] [facility] CPT-4: 35723 05/22/2013 OFFICE/OUTPATIENT VISIT EST Diagnosis: Shingles[ICD9: 053.9] Alexandra Crawford BENJYVIOLETTA [facility] CPT-4: 47041 04/05/2013 ([id number]) OFFICE/OUTPATIENT VISIT EST Diagnosis: DEPRESSIVE DISORDER NEC[ICD9: 311] Alexandra Danelawandavioletta CARROLL DO [facility] CPT-4: 12434 03/26/2013 ([id number]) OFFICE/OUTPATIENT VISIT EST Diagnosis: Complicated grieving[ICD9: 309.0] Alexandra Danejames PAMLORI CARROLL [facility] CPT-4: 27264 03/06/2013 ([id number]) OFFICE/OUTPATIENT VISIT EST Diagnosis: CEPHALGIA, TENSION[ICD9: 307.81] Diagnosis: MIGRAINE NOS/NOT INTRCBL[ICD9: 346.90] Diagnosis: Cervicalgia[ICD9: 723.1] Alexandra Danelawandavioletta PLATT IZABELLA [facility] CPT-4: 83585 11/29/2012 ([id number]) OFFICE/OUTPATIENT VISIT EST Diagnosis: Jaw pain[ICD9: 784.92] Diagnosis: Shoulder pain[ICD9: 719.41] Diagnosis: Family history of premature coronary artery disease[ICD9: V17.3] Alexandra CARROLL [facility] CPT-4: 03165 09/26/2012 ([id number]) OFFICE/OUTPATIENT VISIT EST Diagnosis: ABDOMINAL PAIN[ICD9: 789.00] Diagnosis: Constipation[ICD9: 564.00] Diagnosis: Hematuria[ICD9: 599.70] Alexandra BURLESON ER [facility] CPT-4: 33751 07/11/2012 ([id number]) OFFICE/OUTPATIENT VISIT EST Diagnosis: ANEMIA NOS[ICD9: 285.9] Alexandra JACOBOND ER [facility] CPT-4: 24657 02/17/2012 ([id number]) PREV VISIT EST AGE 40-64 Diagnosis: ROUTINE MEDICAL EXAM[ICD9: V70.0] Diagnosis: HYPOTHYROIDISM[ICD9: 244.9] Diagnosis: HYPERLIPIDEMIA NEC/NOS[ICD9: 272.4] Diagnosis: Obstructive sleep apnea[ICD9: 327.23] Alexandra Burlesonvioletta NICOLASA JANEL Ty CARROLL [facility] CPT-4: 47389 02/02/2012 ([id number]) OFFICE/OUTPATIENT VISIT EST Diagnosis: URINARY TRACT INFECTION[ICD9: 599.0] Alexandra Burlesonvioletta [facility] CPT-4: 58314 08/27/2011 ([id number]) OFFICE/OUTPATIENT VISIT EST Diagnosis: URINARY TRACT INFECTION[ICD9: 599.0] Diagnosis: ACUTE CYSTITIS[ICD9: 595.0] Alexandra Carroll [facility] CPT-4: 84191 08/17/2011 OFFICE/OUTPATIENT VISIT EST Diagnosis: URINARY TRACT INFECTION[ICD9: 599.0] Steph [facility] CPT-4: 11820 10/14/2010 Plan of Care Planned Activity Notes Codes Status Date Appointment: Alexandra Carroll WPtel: [phone] 07/26/2019 Visit Diagnosis Plan: Urinary tract infection, site no t specified Discussion: urine sent for culture. cipro prescribed to take as directed and instructed to stop the macrobid that she has since there is no improvement in symptoms. push fluids. will call patient pending culture results. ICD-9 : 599.0 ICD-10 : N39.0 07/17/2019 Appointment: Vandana Crowe [address] [place] [address] ACUTE ILLNESS 07/17/2019 Patient Education: Cipro- [employer] [phone] [email or web address]/resources/getResource/[email or web address].pdf Completed 07/17/2019 Visit Diagnosis Plan: Allergic dermatitis Discussion: Could be numerous things that were given during surgery Continue benadryl Add Prednisone Notify if persists/worsens ICD-9 : 692.9 ICD-10 : L23.9 06/26/2019 Appointment: Alexandra Carroll WPtel: [phone] ACUTE ILLNESS 06/26/2019 Patient Education: prednisone- [employer] [phone] [email or web address]/resources/getResource/[email or web address]/[email or web address] Completed 06/26/2019 Visit Diagnosis Plan: Cellulitis of [...] injection a week pre-op and dr. albert's wringer operator voiced ok to give. ICD-9 : 692.6 ICD-10 : L25.5 05/14/2019 Appointment: Vandana Crowe [address] [place], [place] [id number] ACUTE ILLNESS 05/14/2019 Patient Education: Levaquin- [employer] [phone] [email or web address]://[email or web address]/[email or web address]/resources/getResource/61/[email or web address] Completed 05/14/2019 Visit Diagnosis Plan: Ventral hernia Discussion: See s urgery for repair Discussed signs of incarceration or strangulation then is to report to ER ICD-9 : 553.20 ICD-10 : K43.9 04/10/2019 Appointment: Alexandra Carroll WPtel: [facility]8 [facility] US left second message 04/10/19 at 10:20 ACUTE ILLNE SS 04/10/2019 Care Plan: Referral Order SNOMED-CT : 30 [id number] Pending 04/10/2019 Visit Diagnosis Plan: Insomnia Discussion: [...] : D47.3 02/14/2019 Appointment: Alexandra Carroll WPtel: [address] [place], [place] [phone] US FOLLOW UP 02/14/2019 Appointment: Alexandra Carroll WPtel: [address] [place], [place] [phone] US CANCELED 02/12/2019 Visit Diagnosis Plan: Onychomycosis Discussion: Send n ail for culture ICD-9 : 110.1 ICD-10 : B35.1 01/16/2019 Visit Diagnosis Plan: Small bowel obstruction Discussi on: S/P surgery in September with postop complications of wound dehiscence ICD-9 : 560.9 ICD-10 : K56.609 01/16/2019 Appointment: Alexandra Carroll WPtel: [address] [place], [place] [phone] [place] MEDICATION REVIEW 01/16/2019 Appointment: Alexandra Carroll WPtel: [address] [place], [place] [phone] US CANCELED 12/12/2018 Visit Diagnosis Plan: Diarrhea, unspecified Discussion : Due for updated colonoscopy ICD-9 : 787.91 ICD-10 : R19.7 09/18/2018 Visit Diagnosis Plan: Radiculopathy, lumbosacral regio n Discussion: Had left SI joint injection by Dr. Baig about 2 weeks ago and has fwup with him ICD-9 : 724.4 ICD-10 : M54.17 09/18/2018 Appointment: Alexandra Carroll WPtel: [address] [place], [place] [phone] US PATIENT CONSULT 15 09/18/2018 Care Plan: Referral Order SNOMED-CT : 30 [id number] Pending 09/18/2018 Visit Diagnosis Plan: Other intervertebral [...] : M46.1 08/10/2018 Appointment: Alexandra Carroll WPtel: [address] [place], [place] [phone] US MEDICATION REVIEW 08/10/2018 Care Plan: Referral Order SNOMED-CT : 30 [id number] Pending 08/10/2018 Appointment: Alexandra Carroll WPtel: [address] [place], [place] [phone] US CANCELED 04/17/2018 Visit Diagnosis Plan: Fracture [...] 03/27/2018 Visit Diagnosis Plan: Cervicalgia Discussion: Daily denys Has finished PT and seeing chiropracter ICD-9 : 723.1 ICD-10 : M54.2 03/27/2018 Appointment: Alexandra Carroll WPtel: [address] [place], [place] [phone] US FOLLOW UP 03/27/2018 Visit Diagnosis Plan: [...] V54.11 ICD-10 : S42.002D 02/23/2018 Appointment: Alexandra Carrolltel: [address] [place] [address] US FOLLOW UP 02/23/2018 Patient Education: gabapentin- [employer] [phone] [email or web address] Completed 02/23/2018 Visit Diagnosis Plan: Fracture of unspec ified part of left clavicle, subsequent encounter for fracture with routine healing Discussion: Hold on PT and do home stretches Trial of gabapentin Recheck 4 weeks ICD-9 : V54.11 ICD-10 : S42.002D 01/24/2018 Appointment: Alexandra Carroll WPtel: [address] [place] [address] [place] FOLLOW UP 01/24/2018 Visit Diagnosis Plan: Migraine, unspecif ied, not intractable, without status migrainosus Discussion: Toradol and phenergan given ICD-9 : 346.90 ICD-10 : G43.909 01/17/2018 Appointment: Alexandra Carroll WPtel: [address] [place] [address] [place] ACUTE ILLNESS 01/17/2018 Visit Diagnosis Plan: [...] M51.36 12/29/2017 Appointment: Alexandra Carroll [facility]el[facility] [phone] [facility] [facility] 12/29/2017 Care Plan: US EXAM PELVIC COMPLETE LOINC : 92583-1 Pending 12/29/2017 Care Plan: ECHO EXAM OF ABDOMEN LOINC : 54352-8 Pending 12/29/2017 Care Plan: Referral Order SNOMED-CT : 30 [id number] Pending 12/29/2017 Visit Diagnosis Plan: Fracture of unspec ified part of left clavicle, subsequent encounter for fracture with routine healing Discussion: Start PT in another 7-14 days Off work for the rest of this week then may return to part-time work on 12/12/17 Fwup in 4 weeks ICD-9 : V54.11 ICD-10 : S42.002D 12/06/2017 Appointment: Alexandra Carroll WPtel[facility] [phone] [facility] [place] FOLLOW UP 12/06/2017 Patient Education: Patient Medication [...] ICD-10 : Z88.1 12/01/2017 Appointment: Vandana Crowe [address] [place], [place] [id number] [place] FOLLOW UP 12/01/2017 Patient Education: Patient Medication [...] : Z88.1 11/30/2017 Appointment: Vandana Crowe [address] [facility] 11/30/2017 Patient Education: Patient Medication Summary [...] ICD-10 : L03.113 11/29/2017 Appointment: Vandana Crowe [address] [place], [place] [address] FOLLOW UP 11/29/2017 Patient Education: Patient Medication [...] ICD-10 : L03.113 11/28/2017 Appointment: Vandana Crowe [address] [facility] ACUTE ILLNESS 11/28/2017 Patient Education: Patient Medication [...] : M51.36 11/17/2017 Appointment: Alexandra Carroll WPtel: [phone] [facility] MEDICATION REVIEW 11/17/2017 Patient Education: Patient Medication Summary Completed 11/17/2017 Care Plan: Referral Order SNOMED-CT : 30 [id number] Pending 11/17/2017 Patient Education: Patient Medication Summary Completed 10/12/2017 Care Plan: MRI LUMBAR SPINE W/O DYE LOIN C : 76009-1 Pending 10/12/2017 Care Plan: X-RAY EXAM L-S SPINE 2/3 VWS LOINC : 97608-8 Pending 10/11/2017 Visit Diagnosis Plan: Other retention [...] medrol pack to start tomorrow. will call pinamonti for patient to start PT immediately with inversion table. instructed patient to go to ED immediately if she develops any incontinence with bowel or bladder. patient verbalized understanding. if no improvement, will need updated MRI and referral to surgeon. ICD-9 : 724.4 ICD-10 : M54.17 10/10/2017 Appointment: Vandana Crowe [address] [place] [address] ACUTE ILLNESS 10/10/2017 Patient Education: Patient Medication Summary Completed 10/10/2017 Appointment: Vandana Crowe [address] [place] [address] ACUTE ILLNESS 08/01/2017 Visit Diagnosis Plan: Other intervertebral disc degene ration, lumbar region Discussion: Core strengtheing and inversion table and if worsening will need updated MRI ICD-9 : 722.52 ICD-10 : M51.36 06/22/2017 Visit Diagnosis Plan: Encounter for [facility] adult medical examination without abnormal findings Discussion: Lab dis ussed Follow Up: 6 months ICD-9 : V70.0 ICD-10 : Z00.00 06/22/2017 Appointment: Alexandra Carroll WPtel: [facility] [address] Annual Well Visit 06/22/2017 Patient Education: Patient Medication Summary Completed 06/22/2017 Patient Education: Patient Medication Summary Completed 06/16/2017 Care Plan: COMPREHEN METABOLIC PANEL [place] : 04385-9 Pending 06/16/2017 Care Plan: ASSAY THYROID STIM HORMONE Pen ding 06/16/2017 Care Plan: ASSAY OF FREE THYROXINE Pendin g 06/16/2017 Care Plan: LIPID PANEL LOINC : 51408-7 Pending 06/16/2017 Care Plan: CBC Pending 06/16/2017 Visit Plan: Supportive care. Rest, Fluid s, Tylenol/Motrin prn fever or bodyaches. Notify if worsening symptoms. 03/28/2017 Visit NOS Plan: Plan Notes: Supportive care. Rest, Fluids... 03/28/2017 Visit Diagnosis Plan: URI, ACUTE Discussion: Likely fl u and is at end of illness so supportive care and monitor ICD-9 : 465.9 ICD-10 : J06.9 03/28/2017 Appointment: Alexandra Carroll WPtel: [address] [place] [address] ACUTE ILLNESS 03/28/2017 Patient Education: Patient Medication Summary Completed 03/28/2017 Visit Diagnosis Plan: Acute sinusitis, unspecified Dis cussion: cefdinir and medrol dose pack prescribed to be taken as directed. tylenol/ibuprofen as needed. educated on importance of taking singulair or zyrtec daily to prevent worsening symptoms. keep hydrated. ICD-9 : 461.9 ICD-10 : J01.90 02/16/2017 Appointment: Vandana Crowe [address] [place] [address] ACUTE ILLNESS 02/16/2017 Patient Education: Patient Medication Summary Completed 02/16/2017 Appointment: Alexandra Carroll WPtel: [address] [place] [address] INJECTION 11/02/2016 Patient Education: Patient Medication Summary Completed 11/02/2016 Visit Diagnosis Plan: Pain in thoracic spine Discussio n: Increase flexeril to 10mg po BID Add Mobic 15mg po daily Towel stretch May see chiropractor to adjust ribs Notify if persists or worsening ICD-9 : 724.1 ICD-10 : M54.6 09/06/2016 Appointment: Alexandra Carroll WPtel: [address] [place] [address] ACUTE ILLNESS 09/06/2016 Patient Education: Patient Medication Summary Completed 09/06/2016 Visit Plan: Due to hx, ERx Cefdinir and Prednisone (discussed risks for both) Given bottle for nasal saline rinses Tylenol/Ibuprofen prn pain/fever Fluids/rest Discussed s/s of worsening, RTC if no improvement 08/16/2016 Appointment: Vidya Manuel [facility]Ptel: [phone] [facility] [facility] 08/16/2016 Patient Education: Patient Medication Summary Completed 08/16/2016 Visit Diagnosis Plan: Primary insomnia Discussion: [place] mcbrideshiloh elissax at current dose--patient has been trying to decrease dose ICD-9 : 780.52 ICD-10 : F51.01 07/19/2016 Visit Diagnosis Plan: Cramp and spasm Discussion: Rest art flexeril and see if helps ICD-9 : 729.82 ICD-10 : R25.2 07/19/2016 Visit Diagnosis Plan: Major depressive disorder, singl e episode, mild Discussion: Continue lower dose of buproprion for at least 2more months and if doing okay then can DC buproprion and see how does Follow Up: 4 months ICD-9 : 311 ICD-10 : F32.0 07/19/2016 Appointment: Alexandra Carroll WPtel: [address] [place] [address] 07/15 confirmed`sl FOLLOW UP 07/19/2016 Patient Education: Patient Medication Summary Completed 07/19/2016 Visit Diagnosis Plan: Obstructive sleep apnea (adult) (pediatric) Discussion: Adjust CPAP settings to see if helps fatigue and HAS--will give 4-6 week trial of increasing settings and if still with PLATA will consider CT scan of head/sinuses ICD-9 : 327.23 ICD-10 : G47.33 07/06/2016 Visit Diagnosis Plan: Allergic rhinitis due to pollen Discussion: Continue current regimen ICD-9 : 477.9 ICD-10 : J30.1 07/06/2016 Appointment: Alexandra Carroll WPtel: [facility] 07/05 confirmed-sp FOLLOW UP 07/06/2016 Patient Education: Patient Medication Summary Completed 07/06/2016 Visit Plan: Saline nasal flushes prn. Ty lenol/Motrin prn headache. Notify if persists/symptoms worsening. 06/15/2016 Visit Diagnosis Plan: Allergic rhinitis due to pollen Discussion: Kenalog/Dexamethasone Continue Claritin-D Add singulair Recheck 3 weeks ICD-9 : 477.9 ICD-10 : J30.1 06/15/2016 Visit NOS Plan: Plan Notes: Saline nasal flu shes prn. Tyle... 06/15/2016 Visit Diagnosis Plan: Acute recurrent sinusitis, unspe cified Discussion: Omnicef for 3 weeks Take daily probiotic while on ICD-9 : 461.9 ICD-10 : J01.91 06/15/2016 Appointment: Alexandra Carrolltel: [address] [place], [place] [phone] 06/14 lm ~ ACUTE ILLNESS 06/15/2016 Patient Education: Patient Medication Summary Completed 06/15/2016 Visit Diagnosis Plan: Migraine, unspecif ied, not intractable, without status migrainosus Discussion: Injection as above Drink ple nty of water No driving x 6 hours Rest No OTC nsaids today Follow up PRN Refill called of claritin-d ICD-9 : 346.90 ICD-10 : G43.909 04/09/2016 Appointment: Nae Mckay [address] [place] [address] ACUTE ILLNESS 04/09/2016 Patient Education: Patient Medication Summary Completed 04/09/2016 Visit Diagnosis Plan: Hypothyroidism, unspecified Disc ussion: Check TSH and free T4 ICD-9 : 244.9 ICD-10 : E03.9 03/17/2016 Visit Diagnosis Plan: Mixed hyperlipidemia Discussion: Check fasting lipids ICD-9 : 272.4 ICD-10 : E78.2 03/17/2016 Visit Diagnosis Plan: Major depressive disorder, singl e episode, mild Discussion: Continue current meds ICD-9 : 311 ICD-10 : F32.0 03/17/2016 Visit Diagnosis Plan: Other fatigue Discussion: Check TSH, Free T4, B12, CBC Discussed not using CPAP the full night may be part of fatigue ICD-9 : 780.79 ICD-10 : R53.83 03/17/2016 Appointment: Alexandra Carroll WPtel: [facility] 03/16 nvm~sl 03/17 confirmed`sl FOLLOW UP 0 03/17/2016 Patient Education: Patient Medication Summary Completed 03/17/2016 Appointment: Alexandra Carroll WPtel: [address] [place], [place] [address] 03/11 lm~sl 03/15lm `sl 03/15 confirmed`sl FOLLOW U P 03/15/2016 Visit Plan: Discussed labeled indication s for benzos. Since xanax is not labeled for sleep and she has never tried anything else, encouraged her to trial restoril(another benzo) since it is labeled for sleep. She agrees with this trial. Rx called to [facility] after cost comparison which is nearly the same robert. If working well, continue the o0phnub office visits. Call if not working well, and will restart xanax at for sleep. 11/13/2015 Appointment: Nae Mckay [address] [place], [place] [phone] 11/11 confirmed~sl FOLLOW UP 11/13/2015 Patient Education: Patient Medication Summary Completed 11/13/2015 Appointment: Alexandra Carroll WPtel: [address] [place], [place] [phone] Suture Removal 06/23/2015 Patient Education: Patient Medication Summary Completed 06/23/2015 Visit Plan: Removal of lesion above usin g 3-0 punch biopsy Return in 10 days for suture removal 06/12/2015 Appointment: Alexandra Carroll WPtel: [address] [place], [place] [phone] 06/10 lm ~sl ACUTE ILLNESS 06/12/2015 Patient Education: Patient Medication Summary Completed 06/12/2015 Referral: Soy Garcia WPtel: [address] [place], [place] [phone] Schedule patient around lunch time and 3 weeks from 04/22/2015 ~ Spoke with Kiesha at Dr. Sandoval Office and 04/24/15 and scheduled the patient ~sl 04/24/15 Patient is informed~ 06/03 Patient canceled the appointment ~ Patient did not show up for scheduled appointment-sp Appoint ment Requested 05/21/2015 Appointment: Alexandra Carroll WPtel: [address] [place], [place] [phone] [facility] 05/05/2015 Patient Education: Patient Medication Summary Completed 05/05/2015 Visit Plan: Starts PT today Schedule wit h Dr. Garcia for epidural CT abdomen/pelvis results discussed Sees [facility] in April and will get checked then 04/22/2015 Appointment: Alexandra Carroll WPtel: [address] [place], [place] [phone] 04/21 confirmed~lb ACUTE ILLNESS 04/22/2015 Patient Education: Patient Medication Summary Completed 04/22/2015 Referral: Lincoln Hernandez WPtel: [address] [place] [address] Referral Initiated 04/10/2015 Patient Education: Patient Medication Summary Completed 04/09/2015 Visit Plan: Start with lumosacral spine x-ray--will likely need MRI of L/S spine x-ray Needs urology--has had to have bladder stretched in past Tivorbex 03/24/2015 Appointment: Alexandra Carroll WPtel: [address] [place], [place] [phone] 03/21/15 appt confirmed cn ACUTE ILLNESS 03/24 Patient Education: Patient Medication Summary Completed 03/24/2015 Visit Plan: Saline nasal flushes prn. Ty lenol/Motrin prn headache. Notify if persists/symptoms worsening. Cefuroxime to cover both sinuses and UTI Culture urine Check lab 02/27/2015 Appointment: Alexandra Carroll WPtel: [address] [place], [place] [phone] 02/26/15 vm to confirm and need new insu meri on file is inactive cn....02/27/15 appt confirmed cn ACUTE ILLNESS 015 Patient Education: Patient Medication Summary Completed 02/27/2015 Visit Plan: Lab discussed Stop simvastat in Check lipids in 6mos Continue all other meds at current dose Had Pap and Mammo 3 weeks ago 06/13/2014 Appointment: Alexandra Carroll WPtel: [address] [place] [address] Annual Well Visit 06/13/2014 Patient Education: Patient Medication Summary Completed 06/13/2014 Appointment: Shalini Walters WPtel: [address] [place] [address] ACUTE ILLNESS 04/18/2014 Patient Education: Patient Medication Summary Completed 04/18/2014 Visit Plan: Check lab in May then fwup Can try decreasing xanax to 1mg q HS with melatonin 5-10mg q HS 12/05/2013 Appointment: Alexandra Carroll WPtel: [address] [place] [address] 12/04 FOLLOW UP 12/05/2013 Patient Education: Patient Medication Summary Completed 12/05/2013 Appointment: Alexandra Carroll WPtel: [address] [place] [address] FOLLOW UP 06/05/2013 Patient Education: Patient Medication Summary Completed 06/05/2013 Appointment: Alexandra Carroll WPtel: [address] [place] [address] FOLLOW UP 05/22/2013 Patient Education: Patient Medication Summary Completed 05/22/2013 Visit Plan: Zovirax for 2wks Notify if p ain worsens or if persists 04/05/2013 Appointment: Alexandra Carroll WPtel: [address] [place] [address] ACUTE ILLNESS 04/05/2013 Patient Education: Patient Medication Summary Completed 04/05/2013 Visit Plan: Keep Wellbutrin at current d ose Pt did see for counseling 03/26/2013 Appointment: Alexandra Carroll WPtel: [address] [place] [address] ACUTE ILLNESS 03/26/2013 Patient Education: Patient Medication Summary Completed 03/26/2013 Visit Plan: Continue citalopram at curre nt dose Increase xanax to 1-2mg q HS for sleep Add Wellbutrin Sr 100mg q AM Start Counseling 03/06/2013 Appointment: Alexandra Carroll WPtel: [address] [place] [address] ACUTE ILLNESS 03/06/2013 Patient Education: Patient Medication Summary Completed 03/06/2013 Appointment: Alexandra Carroll WPtel: [address] [place] [address] ACUTE ILLNESS 11/29/2012 Patient Education: Patient Medication Summary Completed 11/29/2012 Appointment: Alexandra Carroll WPtel: [address] [place] [address] ACUTE ILLNESS 09/26/2012 Patient Education: Patient Medication Summary Completed 09/26/2012 Appointment: Alexandra Carroll WPtel: [address] [place] [address] ACUTE ILLNESS 07/11/2012 Patient Education: Patient Medication Summary Completed 07/11/2012 Appointment: Alexandra Carroll WPtel: [address] [place] [address] LAB 02/17/2012 Patient Education: Patient Medication Summary Completed 02/17/2012 Visit Plan: Check fasting lab Start annie y ca with Vit D Cont CPAP Mammo up-to-date Hemoccult card given 02/02/2012 Appointment: Alexandra Carroll WPtel: [address] [place] [address] PHYSICAL 02/02/2012 Patient Education: Patient Medication Summary Completed 02/02/2012 Appointment: Alexandra Carroll WPtel: [address] [place] [address] [place] UA 08/27/2011 Patient Education: Patient Medication Summary Completed 08/27/2011 Visit Plan: Levaquin and Diflucan for 1w k Then cipro QOD for prophylaxis 08/17/2011 Appointment: Alexandra Carroll WPtel: [address] [place] [address] FOLLOW UP 08/17/2011 Patient Education: Patient Medication Summary Completed 08/17/2011 Appointment: Alexandra Carroll WPtel: [phone] [facility] UA 12/28/2010 Patient Education: Patient Medication Summary Completed 12/28/2010 Appointment: Alexandra Carroll WPtel: [phone] [facility] US UA 11/09/2010 Patient Education: Patient Medication Summary Completed 11/09/2010 Appointment: Alexandra Carroll WPtel: [phone] [facility] US UA 10/29/2010 Patient Education: Patient Medication Summary Completed 10/29/2010 Appointment: Steph Bowen WPtel: [address] [place], [place] [phone] ACUTE ILLNESS 10/14/2010 Patient Education: Patient Medication Summary Completed 10/14/2010 Referral: Florian Baig WPtel: [facility] [address] [place] Referral Initiated Referral: Paulo Albert WPtel: [phone] [id number] [place] Referral Appointment Requested Referral: Luis Enrique Jasso WPtel: [facility] [address] 1 [id number] [place] Referral Appointment Requested Referral: Florian Baig WPtel: [facility] [address] 1 [id number] [place] Referral Appointment Requested Referral: Caleb Glaser WPtel: [phone] [facility] 1 [id number] [place] Referral Appointment Requested Referral: Florian Baig WPtel: [facility] [address] 1 [id number] [place] Referral Initiated Referral: Florian Baig WPtel: [facility] [place] [phone] [facility] 1 [id number] Referral Appointment Requested Instructions Comment . Supportive [...] agrees with this trial. Rx called to [facility] after cost comparison which is nearly the same robert. If working well, continue the k1onoyn office visits. Call if not working well, and will restart xanax at HS for sleep. . Removal of lesion above using 3-0 punc h biopsy Return in 10 days for suture removal . Starts PT today Schedule with Dr. Garcia for epidural CT abdomen/pelvis results discussed Sees [facility]ITTER in April and will get checked then [...] Wellbutrin at current dose Pt did see for counseling . Continue citalopram at current [...]
--- OUTSIDE RECORDS SUMMARY | 2019-09-02 00:11 | XMS REPORT | CCD ---
Author Author Ilda Bowen APRN Organization [facility] Address [address] [place] [address] Phone Care Team Providers Care [employer] Name Role Phone Alexandra Carroll D.O., PP Unavailable CCM Unavailable Summary Purpose Interface Exchange Insurance Providers Payer name Policy type / Coverage type Covered republican ID Effective Begin Date Effective End Date WPS MEDICARE PART B [place] Medicare Part B [id number] 2019 Unknown [employer] [place] Medicare Part B [id number] Unknown Family History Family History data not found Social History Social History Element Codes Description Effective Dates Tobacco history SNOMED CT: 152155975 Nonsmoker 10/14/2010 Allergies, Adverse Reactions, Alerts Substance Reaction Codes Entered Date Inactivated Date Status MORPHINE SULFATE RxNorm: 2338214 10/14/2010 No Inactive Da te Active CEPHALOSPORINS [...] Fill Instructions Macrobid 100 mg capsule RxNorm: 297225 1 Capsule(s) Oral two ti mes a day 07/30/2019 08/09/2019 Inactive Macrobid 100 mg capsule RxNorm: 370870 1 Capsule(s) Oral two ti mes a day 07/30/2019 07/29/2019 Inactive cyclobenzaprine 10 mg tablet RxNorm: 919980 Tablet(s) Oral as neede d 07/17/2019 No Stop Date Active Cipro 500 mg tablet RxNorm: 099082 1 Tablet(s) Oral two times a day 07/17/2019 07/22/2019 Inactive Xanax 1 mg tablet RxNorm: 372394 1-2 Tablet(s) Oral e very night at bedtime as needed for sleep 07/10/2019 08/08/2019 Inactive Generic For:LAVELLE AX 1MG 10/11/2016 11:15:13 AM prednisone 20 mg tablet RxNorm: 019353 1 Tablet(s) Oral two harlan es a day 06/26/2019 07/03/2019 Inactive Amabelz 1 mg-0.5 mg tablet RxNorm: 1565219 1 Tablet(s) Oral QD 05/3007/17/2019 Inactive Trazadone 150 mg Tablet RxNorm: 1 Tablet(s) Oral every n ight at bedtime 05/14/2019 No Stop Date Active Levaquin 500 mg tablet RxNorm: 683100 1 Tablet(s) Oral QD 05/14/2019 05/21/2019 Inactive Xanax 1 mg tablet RxNorm: 381380 1-2 Tablet(s) Oral e very night at bedtime as needed for sleep 05/03/2019 06/01/2019 Inactive Generic For:LAVELLE AX 1MG 10/11/2016 11:15:13 AM cyclobenzaprine 10 mg tablet RxNorm: 160040 1 Tablet(s) Oral three times a day as needed for muscle spasm 02/12/2019 02/12/2019 Inactive Xanax 1 mg tablet RxNorm: 071894 1-2 Tablet(s) Oral e very night at bedtime as needed for sleep 02/09/2019 03/10/2019 Inactive Generic For:LAVELLE AX 1MG 10/11/2016 11:15:13 AM Xanax 1 mg tablet RxNorm: 870244 1-2 Tablet(s) Oral e very night at bedtime as needed for sleep 01/22/2019 02/08/2019 Inactive Generic For:LAVELLE AX 1MG 10/11/2016 11:15:13 AM Celexa 40 mg tablet RxNorm: 954767 1 Tablet(s) Oral QD 01/17/2019 Active - First Attempt Ref: [id number] Xanax 1 mg tablet RxNorm: 281130 1 Tablet(s) Oral every night a t bedtime 01/08/2019 01/21/2019 Inactive levothyroxine 88 mcg tablet RxNorm: 781385 TAKE 1 TABLET BY NINA TH DAILY 12/19/2018 06/16/2019 Inactive - First Attempt Ref: [id number] Xanax 1 mg tablet RxNorm: 857712 1 Tablet(s) Oral every night a t bedtime 12/06/2018 01/05/2019 Inactive Singulair 10 mg tablet RxNorm: 204755 1 Tablet(s) Oral every ni ght at bedtime 11/23/2018 11/17/2019 Active - First Attempt Ref: [id number] Celexa 40 mg tablet RxNorm: 708100 1 Tablet(s) Oral 11/23/20182018 Inactive - First Attempt Ref: [id number] cyclobenzaprine 10 mg tablet RxNorm: 878929 1 Tablet(s) Oral three times a day as needed for muscle spasm 11/23/2018 02/11/2019 Inactive Xanax 1 mg tablet RxNorm: 010640 1 Tablet(s) PO QHS 11/06/20182018 Inactive Xanax 1 mg tablet RxNorm: 572759 1 Tablet(s) PO QHS 09/26/20182018 Inactive Singulair 10 mg tablet RxNorm: 454643 TAKE 1 TABLET BY MOUTH EVERY NIGHT AT BEDTIME 08/16/2018 11/22/2018 Inactive - First Attempt Ref: [id number] Xanax 1 mg tablet RxNorm: 131929 1 Tablet(s) PO QHS 08/01/20182018 Inactive levothyroxine 88 mcg tablet RxNorm: 690275 TAKE 1 TABLET BY NINA TH DAILY 07/31/2018 12/18/2018 Inactive - First Attempt Ref: [id number] Celexa 40 mg tablet RxNorm: 052242 TAKE 1 TABLET BY MOUTH DAILY 04/201811/22/2018 Inactive - First Attempt Ref: [id number] 54 bupropion HCl SR 100 mg tablet,12 hr sustained-release RxNor m: 700060 1 Tablet(s) PO BID 07/12/2018 07/06/2019 Inactive - Ref: [id number] 7 Claritin-D 24 Hour 10 mg-240 mg tablet,extended release RxNo rm: 9262952 1 Tablet(s) PO QD 06/29/2018 2018 Inactive Claritin-D 24 Hour 10 mg-240 mg tablet,extended release RxNo rm: 7929419 1 Tablet(s) PO QD 06/29/2018 2018 Inactive Xanax 1 mg tablet RxNorm: 324021 1-2 Tablet(s) PO QHS as needed for sleep 05/26/2018 06/23/2018 Inactive Generic For:XANAX 1M G 10/11/2016 11:15:13 AM Xanax 1 mg tablet RxNorm: 453658 1-2 Tablet(s) PO QHS as needed for sleep 03/28/2018 05/25/2018 Inactive Generic For:XANAX 1M G 10/11/2016 11:15:13 AM Macrobid 100 mg capsule RxNorm: 660140 1 Capsule(s) PO BID 03/27/1903/31/2018 Inactive gabapentin 300 mg capsule RxNorm: 443161 1 Capsule(s) PO QHS 201703/26/2018 Inactive Claritin-D 24 Hour 10 mg-240 mg tablet,extended release RxNo rm: 3007758 1 Tablet(s) PO QD 01/26/2018 02/24/2018 Inactive gabapentin 100 mg capsule RxNorm: 736632 1 Capsule(s) P O QHS for 1 week then 2 po q HS for 2 weeks then 3 po q HS 01/24/2018 03/26/2018 Inactive Xanax 1 mg tablet RxNorm: 756861 1-2 Tablet(s) PO QHS as needed for sleep 01/24/2018 03/24/2018 Inactive Generic For:XANAX 1M G 10/11/2016 11:15:13 AM prednisone 20 mg tablet RxNorm: 092397 1 Tablet(s) PO T ID for 3 days then 1 po BID for 3 days then one daily for 3 days 12/29/2017 03/26/2018 Inactiv e prednisone 20 mg tablet RxNorm: 960748 3 Tablet(s) PO T ID for 3 days then 1 po BID for 3 days then one daily for 3 days 12/29/2017 12/29/2017 Inactiv e Macrobid 100 mg capsule RxNorm: 270572 1 Capsule(s) PO BID 12/30/19 18 01/02/2018 Inactive Xanax 1 mg tablet RxNorm: 643264 1-2 Tablet(s) PO QHS as needed for sleep 12/28/2017 01/23/2018 Inactive Generic For:XANAX 1M G 10/11/2016 11:15:13 AM Medrol (Walter) 4 mg tablets in a dose pack RxNorm: 846082 Tablet(s) PO take as directed 12/01/2017 03/26/2018 Inactive Keflex 750 mg capsule RxNorm: 116119 1 Capsule(s) PO BID 12/01/2017 1 Inactive clindamycin HCl 300 mg capsule RxNorm: 769358 2 Capsule(s) PO TID 1 12/08/2017 Inactive Xanax 1 mg tablet RxNorm: 586144 1-2 Tablet(s) PO QHS as needed for sleep 11/28/2017 12/27/2017 Inactive Generic For:XANAX 1M G 10/11/2016 11:15:13 AM mupirocin 2 % topical ointment RxNorm: 038395 1 Application OTIC BI D 11/28/2017 08/09/2018 Inactive Xanax 1 mg tablet RxNorm: 366629 1-2 Tablet(s) PO QHS as needed for sleep 10/27/2017 11/25/2017 Inactive Generic For:XANAX 1M G 10/11/2016 11:15:13 AM Macrobid 100 mg capsule RxNorm: 672515 1 Capsule(s) PO BID 10/11/19 18 10/16/2017 Inactive Medrol (Walter) 4 mg tablets in a dose pack RxNorm: 742972 Tablet(s) PO take as directed 10/10/2017 11/16/2017 Inactive Xanax 1 mg tablet RxNorm: 804361 1-2 Tablet(s) PO QHS as needed for sleep 09/28/2017 10/26/2017 Inactive Generic For:XANAX 1M G 10/11/2016 11:15:13 AM Xanax 1 mg tablet RxNorm: 831773 1-2 Tablet(s) PO QHS as needed for sleep 08/30/2017 09/27/2017 Inactive Generic For:XANAX 1M G 10/11/2016 11:15:13 AM Xanax 1 mg tablet RxNorm: 864395 1-2 Tablet(s) PO QHS as needed for sleep 08/30/2017 08/29/2017 Inactive Generic For:XANAX 1M G 10/11/2016 11:15:13 AM Xanax 1 mg tablet RxNorm: 921983 1-2 Tablet(s) PO QHS as needed for sleep 08/01/2017 08/29/2017 Inactive Generic For:XANAX 1M G 10/11/2016 11:15:13 AM Xanax 1 mg tablet RxNorm: 372105 1-2 Tablet(s) PO QHS as needed for sleep 06/29/2017 2017 Inactive Generic For:XANAX 1M G 10/11/2016 11:15:13 AM Claritin-D 24 Hour 10 mg-240 mg tablet,extended release RxNo rm: 7375758 1 Tablet(s) PO QD 06/29/2017 2017 Inactive levothyroxine 88 mcg tablet RxNorm: 106771 1 Tablet(s) PO QD 201709/10/2017 Inactive Xanax 1 mg tablet RxNorm: 688987 1-2 Tablet(s) PO QHS as needed for sleep 05/26/2017 06/28/2017 Inactive Generic For:XANAX 1M G 10/11/2016 11:15:13 AM Claritin-D 24 Hour 10 mg-240 mg tablet,extended release RxNo rm: 3535387 1 Tablet(s) PO QD 05/26/2017 06/24/2017 Inactive bupropion HCl SR 100 mg tablet,12 hr sustained-release RxNor m: 752343 Tablet(s) Take 1 tablet by mouth two times daily 04/06/2017 12/31/2017 Inactive - Ref: [id number] Xanax 1 mg tablet RxNorm: 711036 1-2 Tablet(s) PO QHS as needed for sleep 03/24/2017 05/22/2017 Inactive Generic For:XANAX 1M G 10/11/2016 11:15:13 AM Medrol (Walter) 4 mg tablets in a dose pack RxNorm: 468072 Tablet(s) P O 02/16/2017 03/27/2017 Inactive Xanax 1 mg tablet RxNorm: 857284 Tablet(s) TAKE ONE T O TWO TABLETS BY MOUTH AT BEDTIME NEEDED 02/16/2017 03/17/2017 Inactive Generic For:XA NAX 1MG 10/11/2016 11:15:13 AM Claritin-D 24 Hour 10 mg-240 mg tablet,extended release RxNo rm: 3796381 1 Tablet(s) PO QD 02/16/2017 04/16/2017 Inactive cefdinir 300 mg capsule RxNorm: 129708 2 Capsule(s) PO QD 02/16/2017 02/25/2017 Inactive Celexa 40 mg tablet RxNorm: 526951 Tablet(s) Take 1 tablet by m outh daily 12/23/2016 09/18/2017 Inactive - Ref: [id number] Xanax 1 mg tablet RxNorm: 343832 Tablet(s) TAKE ONE T O TWO TABLETS BY MOUTH AT BEDTIME NEEDED 12/16/2016 01/14/2017 Inactive Generic For:XA NAX 1MG 10/11/2016 11:15:13 AM Xanax 1 mg tablet RxNorm: 254552 Tablet(s) TAKE ONE T O TWO TABLETS BY MOUTH AT BEDTIME NEEDED 11/18/2016 12/15/2016 Inactive Generic For:XA NAX 1MG 10/11/2016 11:15:13 AM Xanax 1 mg tablet RxNorm: 701847 TAKE ONE TO TWO TABL ETS BY MOUTH AT BEDTIME NEEDED 10/11/2016 11/17/2016 Inactive Generic For:XANA X 1MG 10/11/2016 11:15:13 AM Mobic 15 mg tablet RxNorm: 512575 1 Tablet(s) PO QD 09/06/20162016 Inactive Claritin-D 24 Hour 10 mg-240 mg tablet,extended release RxNo rm: 6579441 1 Tablet(s) PO QD 09/02/2016 11/30/2016 Inactive prednisone 20 mg tablet RxNorm: 372972 1 Tablet(s) PO T ID for 3 days then 1 po BID for 3 days then one daily for 3 days 08/16/2016 03/27/2017 Inactiv e cefdinir 300 mg capsule RxNorm: 732960 2 Capsule(s) PO QD 08/16/2016 09/05/2016 Inactive Xanax 1 mg tablet RxNorm: 077729 TAKE ONE TO TWO TABL ETS BY MOUTH AT BEDTIME NEEDED 08/05/2016 10/11/2016 Inactive Generic For:XANA X 1MG 08/05/2016 2:27:03 PM08/04/2016 4:15:22 PM Singulair 10 mg tablet RxNorm: 487431 1 Tablet(s) PO QHS 07/06/2016 0 09/03/2016 Inactive prednisone 20 mg tablet RxNorm: 876098 1 Tablet(s) PO T ID for 3 days then 1 po BID for 3 days then one daily for 3 days 06/15/2016 07/05/2016 Inactiv e Singulair 10 mg tablet RxNorm: 596883 1 Tablet(s) PO QHS 06/15/2016 0 07/05/2016 Inactive cefdinir 300 mg capsule RxNorm: 910427 2 Capsule(s) PO QD 06/15/2016 07/05/2016 Inactive Xanax 1 mg tablet RxNorm: 918679 1-2 Tablet(s) PO QHS 05/21/201610/2016 Inactive Claritin-D 24 Hour 10 mg-240 mg tablet,extended release RxNo rm: 8212231 1 Tablet(s) PO QD 04/09/2016 07/07/2016 Inactive Xanax 1 mg tablet RxNorm: 480759 1-2 Tablet(s) PO QHS 03/23/201604/29 Inactive levothyroxine 88 mcg tablet RxNorm: 754087 1 Tablet(s) PO QD 201606/13/2017 Inactive bupropion HCl SR 100 mg tablet,sustained-release RxNorm: 993 503 Take 1 tablet by mouth two times daily 03/15/2016 12/09/2016 Inactive - Ref: 20 [id number] Celexa 40 mg tablet RxNorm: 407964 Take 1 tablet by mouth daily 12/23/2016 Inactive - Ref: 335542570 Xanax 1 mg tablet RxNorm: 814736 1-2 Tablet(s) PO QHS 02/17/201603/01 Inactive levothyroxine 88 mcg tablet RxNorm: 915905 1 Tablet(s) PO QD 201502/22/2016 Inactive Xanax 1 mg tablet RxNorm: 365252 1-2 Tablet(s) PO QHS 11/25/201511/29 Inactive levothyroxine 88 mcg tablet RxNorm: 460213 1 Tablet(s) PO QD 201511/24/2015 Inactive temazepam 30 mg capsule RxNorm: 463369 1 Capsule(s) PO QHS 11/13/19 16 11/24/2015 Inactive Xanax 1 mg tablet RxNorm: 960969 1-2 Tablet(s) PO QHS 09/15/201510/29 Inactive Celexa 40 mg tablet RxNorm: 453991 1 Tablet(s) PO QD 1 Tablet(s ) PO QD 09/10/2015 09/16/2015 Inactive bupropion HCl SR 100 mg tablet,sustained-release RxNorm: 993 503 1 Tablet(s) PO BID 09/10/2015 09/23/2015 Inactive Xanax 1 mg tablet RxNorm: 343535 1-2 Tablet(s) PO QHS 09/10/201508/28 Inactive Xanax 1 mg tablet RxNorm: 773417 1-2 Tablet(s) PO QHS 08/11/201508/28 Inactive cyclobenzaprine 10 mg tablet RxNorm: 046307 1 Tablet(s) PO TID prn spasm 07/09/2015 11/23/2018 Inactive Celexa 40 mg tablet RxNorm: 786694 1 Tablet(s) PO QD 06/06/201508/03 Inactive Xanax 1 mg tablet RxNorm: 893417 1-2 Tablet(s) PO QHS 06/04/201505/2015 Inactive levothyroxine 88 mcg tablet RxNorm: 775837 1 Tablet(s) PO QD 201511/23/2015 Inactive Ceftin 500 mg tablet RxNorm: 308754 1 Tablet(s) PO BID 05/05/2015 Inactive Ceftin 500 mg tablet RxNorm: 875548 1 Tablet(s) PO BID 05/05/201507/2015 Inactive meloxicam 15 mg tablet RxNorm: 861783 1 Tablet(s) PO QD 04/16/2015 Inactive meloxicam 15 mg tablet RxNorm: 494761 1 Tablet(s) PO QD 04/16/2015 Inactive diclofenac sodium 75 mg tablet,delayed release RxNorm: 65249 6 1 Tablet(s) PO BID 04/04/2015 04/15/2015 Inactive diclofenac sodium 75 mg tablet,delayed release RxNorm: 23860 6 1 Tablet(s) PO BID 04/04/2015 04/03/2015 Inactive Tivorbex 40 mg capsule RxNorm: 6884940 1 Capsule(s) PO TID 03/24/19 16 04/02/2015 Inactive bupropion HCl SR 100 mg tablet,sustained-release RxNorm: 993 503 1 Tablet(s) PO BID 03/11/2015 09/06/2015 Inactive cyclobenzaprine 10 mg tablet RxNorm: 590149 1 Tablet(s) PO TID prn spasm 03/11/2015 07/08/2015 Inactive levothyroxine 88 mcg tablet RxNorm: 759920 1 Tablet(s) PO QD 201405/27/2015 Inactive Claritin-D 24 Hour 10 mg-240 mg tablet,extended release RxNo rm: 6983719 1 Tablet(s) PO QD 02/27/2015 05/27/2015 Inactive cefuroxime axetil 500 mg tablet RxNorm: 777405 1 Tablet(s) PO BID 1 03/12/2015 Inactive Celexa 40 mg tablet RxNorm: 726730 1 Tablet(s) PO QD 02/05/201504/05 Inactive levothyroxine 75 mcg tablet RxNorm: 345413 1 Tablet(s) PO QD 201402/26/2015 Inactive Celexa 40 mg tablet RxNorm: 505673 1 Tablet(s) PO QD 10/09/201402/04 Inactive Activella 1 mg-0.5 mg tablet RxNorm: 6035364 1 Tablet(s) PO QD 08/2802/26/2015 Inactive bupropion HCl SR 100 mg tablet,sustained-release RxNorm: 993 503 1 Tablet(s) PO BID 09/12/2014 03/10/2015 Inactive levothyroxine 75 mcg tablet RxNorm: 685245 1 Tablet(s) PO QD 201412/09/2014 Inactive levothyroxine 75 mcg tablet RxNorm: 289546 1 Tablet(s) PO QD 201409/11/2014 Inactive Celexa 40 mg tablet RxNorm: 449628 1 Tablet(s) PO QD 08/12/201410/08 Inactive Xanax 1 mg tablet RxNorm: 070822 1-2 Tablet(s) PO QHS 08/12/201409/28 Inactive Claritin-D 24 Hour 10 mg-240 mg tablet,extended release RxNo rm: 3157927 1 Tablet(s) PO QD 06/13/2014 09/10/2014 Inactive cyclobenzaprine 10 mg tablet RxNorm: 822978 1 Tablet(s) PO TID prn spasm 06/12/2014 02/26/2015 Inactive Xanax 1 mg tablet RxNorm: 011948 1-2 Tablet(s) PO QHS 05/09/201406/28 Inactive levothyroxine 75 mcg tablet RxNorm: 536119 1 Tablet(s) PO QD 201407/08/2014 Inactive cephalexin 500 mg capsule RxNorm: 585665 1 Capsule(s) PO QOD 201402/26/2015 Inactive simvastatin 10 mg tablet RxNorm: 881793 1 Tablet(s) PO QHS 04/10/19 15 06/12/2014 Inactive Xanax 1 mg tablet RxNorm: 518480 1-2 Tablet(s) PO QHS 04/10/201404/28 Inactive levothyroxine 75 mcg tablet RxNorm: 385053 1 Tablet(s) PO QD 201404/09/2014 Inactive levothyroxine 75 mcg capsule RxNorm: 875370 1 Capsule(s) PO QD 03/3104/10/2014 Inactive Activella 1 mg-0.5 mg tablet RxNorm: 0315279 1 Tablet(s) PO QD 03/0109/11/2014 Inactive bupropion HCl SR 100 mg tablet,sustained-release RxNorm: 993 503 1 Tablet(s) PO BID 03/04/2014 08/30/2014 Inactive Activella 1 mg-0.5 mg tablet RxNorm: 2481902 1 Tablet(s) PO QD 01/2803/18/2014 Inactive levothyroxine 75 mcg capsule RxNorm: 952767 1 Capsule(s) PO QD 12/2904/08/2014 Inactive simvastatin 10 mg tablet RxNorm: 154349 1 Tablet(s) PO QHS 01/10/20 14 04/08/2014 Inactive cyclobenzaprine 10 mg tablet RxNorm: 047845 1 Tablet(s) PO TID prn spasm 01/09/2014 04/08/2014 Inactive Cipro 500 mg tablet RxNorm: 283366 1 Tablet(s) PO BID 12/25/201304/2013 Inactive Cipro 500 mg tablet RxNorm: 967969 1 Tablet(s) PO BID 12/25/201311/29 Inactive bupropion HCl SR 100 mg tablet,sustained-release RxNorm: 993 503 1 Tablet(s) PO QAM 12/11/2013 03/03/2014 Inactive cephalexin 500 mg capsule RxNorm: 618337 1 Capsule(s) PO QOD 201304/09/2014 Inactive Xanax 1 mg tablet RxNorm: 174274 1-2 Tablet(s) PO QHS 10/15/201310/29 Inactive simvastatin 10 mg tablet RxNorm: 960130 1 Tablet(s) PO QHS 10/11/19 14 01/07/2014 Inactive Celexa 40 mg tablet RxNorm: 149788 Tablet(s) PO TAKE 1 TABLET BY MOUTH ONCE DAILY. 09/18/2013 09/17/2013 Inactive Xanax 1 mg tablet RxNorm: 503603 1-2 Tablet(s) PO QHS 08/13/201308/28 Inactive simvastatin 10 mg tablet RxNorm: 848502 1 Tablet(s) PO QHS 07/12/19 14 10/08/2013 Inactive bupropion HCl SR 100 mg tablet,sustained-release RxNorm: 993 503 1 Tablet(s) PO QAM 05/22/2013 11/17/2013 Inactive Pamelor 10 mg capsule RxNorm: 496481 1 Capsule(s) PO QHS for PLATA /sleep 05/22/2013 06/04/2013 Inactive Xanax 1 mg tablet RxNorm: 908273 1-2 Tablet(s) PO QHS 05/15/201305/29 Inactive Pamelor 10 mg capsule RxNorm: 308409 1 Capsule(s) PO QHS for PLATA /sleep 05/15/2013 05/21/2013 Inactive Xanax 1 mg tablet RxNorm: 210136 1 Tablet(s) PO QHS 04/27/20132013 Inactive Zovirax 800 mg tablet RxNorm: 136677 1 Tablet(s) PO TID 04/05/2013 Inactive Xanax 1 mg tablet RxNorm: 117880 1 Tablet(s) PO QHS 04/03/2013 No Sto p Date Active bupropion HCl SR 100 mg tablet,sustained-release RxNorm: 993 503 1 Tablet(s) PO QAM 03/26/2013 05/21/2013 Inactive bupropion HCl SR 100 mg tablet,sustained-release RxNorm: 993 503 1 Tablet(s) PO QAM 03/06/2013 03/25/2013 Inactive Pamelor 10 mg capsule RxNorm: 175622 1 Capsule(s) PO QHS for PLATA /sleep 02/14/2013 05/14/2013 Inactive levothyroxine 75 mcg capsule RxNorm: 239534 1 Capsule(s) PO QD 12/2901/08/2014 Inactive simvastatin 10 mg tablet RxNorm: 498663 1 Tablet(s) PO QHS TAKE 1 TABLET BY MOUTH ONCE DAILY AT BEDTIME. 01/15/2013 07/10/2013 Inactive cyclobenzaprine 10 mg tablet RxNorm: 835750 1 Tablet(s) PO TID prn spasm 12/25/2012 06/22/2013 Inactive Pamelor 10 mg capsule RxNorm: 329537 1 Capsule(s) PO QHS for PLATA /sleep 11/29/2012 02/14/2013 Inactive Celexa 40 mg tablet RxNorm: 426362 Tablet(s) PO TAKE 1 TABLET BY MOUTH ONCE DAILY. 10/11/2012 09/17/2013 Inactive simvastatin 10 mg tablet RxNorm: 287977 Tablet(s) PO TA KE 1 TABLET BY MOUTH ONCE DAILY AT BEDTIME. 10/11/2012 01/14/2013 Inactive simvastatin 10 mg tablet RxNorm: 345882 1 Tablet(s) PO QD 07/11/2012 10/08/2012 Inactive simvastatin 10 mg tablet RxNorm: 998436 1 Tablet(s) PO QD 04/14/2012 07/11/2012 Inactive simvastatin 10 mg tablet RxNorm: 649636 1 Tablet(s) PO QD 04/14/2012 04/13/2012 Inactive Celexa 40 mg tablet RxNorm: 617592 1 Tablet(s) PO QD 03/15/201209/10 Inactive cyclobenzaprine 10 mg tablet RxNorm: 744682 1 Tablet(s) PO TID prn spasm 02/02/2012 02/01/2012 Inactive cyclobenzaprine 10 mg tablet RxNorm: 296864 1 Tablet(s) PO TID prn spasm 02/02/2012 07/30/2012 Inactive Diflucan 100 mg Tab RxNorm: 131010 1 Tablet(s) PO QD 08/17/201108/22 Inactive Cipro 250 mg Tab RxNorm: 248855 1 Tablet(s) PO QD 08/17/2011 10/15/19 12 Inactive Levaquin 500 mg Tab RxNorm: 791655 1 Tablet(s) PO QD 08/17/201108/22 Inactive Pyridium 200 mg Tab RxNorm: 7200032 1 Tablet(s) PO TID 10/14/2010 Inactive may turn urine orange-red color. Cipro 500 mg Tab RxNorm: 988169 1 Tablet(s) PO BID 10/14/2010 011 Inactive levothyroxine 75 mcg capsule RxNorm: 477386 1 Capsule(s) PO QD 12/3001/14/2011 Inactive Vitamin D3 5,000 unit tablet RxNorm: 161151 1 Tablet(s) PO QD No Star t Date Active Nasacort 55 mcg nasal spray aerosol RxNorm: 9967132 2 Sp ray NASAL each nostril QHS No Start Date Active cyclobenzaprine 10 mg tablet RxNorm: 395052 1 Tablet(s) PO TID as needed No Start Date 11/22/2018 Inactive Vitamin D2 1,000 unit capsule RxNorm: 764778 3 Capsule(s) PO QD No Start Date 11/16/2017 Inactive diclofenac sodium 75 mg tablet,delayed release RxNorm: 03540 6 1 Tablet(s) PO BID No Start Date 03/16/2016 Inactive cephalexin 500 mg capsule RxNorm: 751863 1 Capsule(s) PO QOD No Sta rt Date 12/04/2013 Inactive cyclobenzaprine 10 mg tablet RxNorm: 739530 1 Tablet(s) PO QHS No S tart Date 02/01/2012 Inactive loratadine 10 mg tablet RxNorm: 051881 1 Tablet(s) PO QHS No Start Date 05/14/2019 Inactive hydrocodone 5 mg-acetaminophen 500 mg tablet RxNorm: 879538 1 -2 Tablet(s) PO Q6H as needed No Start Date 08/09/2018 Inactive etodolac 400 mg tablet RxNorm: 834827 1 Tablet(s) PO TID No Start D ate 09/17/2018 Inactive Xanax 1 mg tablet RxNorm: 612044 1 Tablet(s) PO QHS No Start Date 04/2013 Inactive Vitamin D3 1,000 unit capsule RxNorm: 297212 1 Capsule(s) PO QD No Start Date 06/12/2014 Inactive estradiol 2 mg tablet RxNorm: 328592 1/2 Tablet(s) PO QD No Start D ate 03/05/2013 Inactive Celexa 40 mg tablet RxNorm: 433871 1 Tablet(s) PO QD No Start Date Inactive Activella 1 mg-0.5 mg tablet RxNorm: 0978829 1 Tablet(s) PO QD No S tart Date 07/10/2012 Inactive medroxyprogesterone 5 mg tablet RxNorm: 9854985 1/2 Tablet(s) PO QD No Start Date 03/05/2013 Inactive levothyroxine 88 mcg tablet RxNorm: 046647 1 Tablet(s) PO QD No Sta rt Date 02/26/2015 Inactive Keflex 500 mg capsule RxNorm: 171053 1 Capsule(s) PO PRN No Start D ate 08/16/2011 Inactive Activella 1 mg-0.5 mg tablet RxNorm: 1032153 1 Tablet(s) PO QHS No Start Date 03/27/2017 Inactive Activella 1 mg-0.5 mg tablet RxNorm: 6590497 1 Tablet(s) PO QD No S tart Date 02/06/2014 Inactive Flexeril 10 mg Tab RxNorm: 511285 1 Tablet(s) PO TID No Start Date Inactive prn spasm simvastatin 10 mg tablet RxNorm: 992704 1 Tablet(s) PO QD No Start Date 04/13/2012 Inactive Medication Administered No Medication Administered data Immunizations Vaccine Codes Date Status Influenza CVX: 135 01/16/2019 Complete Pneumococcal CVX: 133 01/16/2019 Complete Results No Results data Procedures Procedure Codes Date URINE CULTURE/ COLONY COUNT CPT-4: 90685 08/14/2019 URINE CULTURE/ COLONY COUNT CPT-4: 93280 07/26/2019 URINALYSIS NONAUTO W/O SCOPE CPT-4: 10952 07/17/2019 URINE CULTURE/ COLONY COUNT CPT-4: 63918 07/17/2019 DEXAMETHASONE SODIUM PHOS CPT-4: J1100 05/14/2019 THER/PROPH/DIAG INJ SC/IM CPT-4: 21128 05/14/2019 TRIAMCINOLONE ACET INJ NOS CPT-4: J3301 05/14/2019 FLU VACC PRSV FREE INC ANTIG 65 AND OLDER CPT-4: 88515 01/16/2019 FLU VACC PRSV FREE INC ANTIG 65 AND OLDER CPT-4: 70875 01/16/2019 PNEUMOCOCCAL VACC 13 NARESH IM CPT-4: 48104 01/16/2019 SKIN FUNGI CULTURE CPT-4: 92183 01/16/2019 IMMUNIZATION ADMIN CPT-4: 31603 01/16/2019 IMMUNIZATION ADMIN EACH ADD CPT-4: 58849 01/16/2019 THER/PROPH/DIAG INJ SC/IM CPT-4: 10084 01/17/2018 KETOROLAC TROMETHAMINE INJ CPT-4: J1885 01/17/2018 THER/PROPH/DIAG INJ SC/IM CPT-4: 03294 01/17/2018 PROMETHAZINE HCL INJECTION CPT-4: J2550 01/17/2018 URINALYSIS NONAUTO W/O SCOPE CPT-4: 84352 12/29/2017 URINE CULTURE/ COLONY COUNT CPT-4: 99721 12/29/2017 THER/PROPH/DIAG INJ SC/IM CPT-4: 19759 11/30/2017 TRIAMCINOLONE ACET INJ NOS CPT-4: J3301 11/30/2017 DEXAMETHASONE SODIUM PHOS CPT-4: J1100 11/30/2017 CEFTRIAXONE SODIUM INJECTION CPT-4: J0696 11/29/2017 THER/PROPH/DIAG INJ SC/IM CPT-4: 36415 11/29/2017 CEFTRIAXONE SODIUM INJECTION CPT-4: J0696 11/28/2017 THER/PROPH/DIAG INJ SC/IM CPT-4: 85838 11/28/2017 URINALYSIS NONAUTO W/O SCOPE CPT-4: 69432 10/10/2017 THER/PROPH/DIAG INJ SC/IM CPT-4: 43388 10/10/2017 TRIAMCINOLONE ACET INJ NOS CPT-4: J3301 10/10/2017 DEXAMETHASONE SODIUM PHOS CPT-4: J1100 10/10/2017 CEFTRIAXONE SODIUM INJECTION CPT-4: J0696 10/10/2017 THER/PROPH/DIAG INJ SC/IM CPT-4: 49801 10/10/2017 URINE CULTURE/ COLONY COUNT CPT-4: 22986 10/10/2017 THER/PROPH/DIAG INJ SC/IM CPT-4: 44840 11/02/2016 KETOROLAC TROMETHAMINE INJ CPT-4: J1885 11/02/2016 THER/PROPH/DIAG INJ SC/IM CPT-4: 63884 06/15/2016 TRIAMCINOLONE ACET INJ NOS CPT-4: J3301 06/15/2016 DEXAMETHASONE SODIUM PHOS CPT-4: J1100 06/15/2016 THER/PROPH/DIAG INJ SC/IM CPT-4: 82356 04/09/2016 KETOROLAC TROMETHAMINE INJ CPT-4: J1885 04/09/2016 PROMETHAZINE HCL INJECTION CPT-4: J2550 04/09/2016 EXC TR-EXT B9+ERASMO 0.5 CM< CPT-4: 64674 06/12/2015 URINALYSIS NONAUTO W/O SCOPE CPT-4: 08376 05/05/2015 URINE CULTURE/ COLONY COUNT CPT-4: 72176 05/05/2015 URINALYSIS NONAUTO W/O SCOPE CPT-4: 78130 03/24/2015 URINALYSIS NONAUTO W/O SCOPE CPT-4: 65605 02/27/2015 URINE CULTURE/ COLONY COUNT CPT-4: 24408 02/27/2015 THER/PROPH/DIAG INJ SC/IM CPT-4: 22715 04/18/2014 KETOROLAC TROMETHAMINE INJ CPT-4: J1885 04/18/2014 THER/PROPH/DIAG INJ SC/IM CPT-4: 71635 06/05/2013 TRIAMCINOLONE ACET INJ NOS CPT-4: J3301 06/05/2013 THER/PROPH/DIAG INJ SC/IM CPT-4: 41117 11/29/2012 KETOROLAC TROMETHAMINE INJ CPT-4: J1885 11/29/2012 URINALYSIS NONAUTO W/O SCOPE CPT-4: 67782 07/11/2012 URINE CULTURE/ COLONY COUNT CPT-4: 44670 07/11/2012 OCCULT BLOOD FECES CPT-4: 42305 02/17/2012 URINALYSIS NONAUTO W/O SCOPE CPT-4: 03222 08/27/2011 URINE CULTURE/ COLONY COUNT CPT-4: 42876 08/27/2011 URINALYSIS NONAUTO W/O SCOPE CPT-4: 90407 08/17/2011 URINE CULTURE/ COLONY COUNT CPT-4: 50941 08/17/2011 URINALYSIS NONAUTO W/O SCOPE CPT-4: 89469 12/28/2010 URINE CULTURE/ COLONY COUNT CPT-4: 29997 12/28/2010 URINALYSIS NONAUTO W/O SCOPE CPT-4: 49748 11/09/2010 URINE CULTURE/ COLONY COUNT CPT-4: 88258 11/09/2010 URINALYSIS NONAUTO W/O SCOPE CPT-4: 41559 10/29/2010 URINE CULTURE/ COLONY COUNT CPT-4: 25219 10/29/2010 URINE CULTURE/ COLONY COUNT CPT-4: 62977 10/14/2010 URINALYSIS NONAUTO W/O SCOPE CPT-4: 48911 10/14/2010 Vital Signs Date Vital 07/17/2019 Blood [...] 1: 122/74 Code: 8480-6 BMI: 22.0 Code: 32574-9 Heart Rate 1: 72 bpm Height: 5'3" [...] 1: 126/72 Code: 8480-6 BMI: 22.7 Code: 46220-8 Heart Rate 1: 72 bpm Height: 5'3" [...] 1: 112/70 Code: 8480-6 BMI: 22.0 Code: 17152-1 Heart Rate 1: 80 bpm Height: 5'3" [...] 1: 122/64 Code: 8480-6 BMI: 21.4 Code: 60729-9 Heart Rate 1: 88 bpm Height: 5'3" Respiratory Rate: 22 bpm SpO2: 96% Tempera ture: 36.8 (C) / 98.2 (F) Weight: 121 lbs 06/22/2017 Blood Pressure 1: 124/78 Code: 8480-6 BMI: 21.6 Code: 01664-7 Heart Rate 1: 76 bpm Height: 5'3" Respiratory Rate: 20 bpm Temperature: 36 .8 (C) / 98.3 (F) Weight: 122 lbs 03/28/2017 Blood Pressure 1: 92/60 Code: 8480-6 BMI: 20.4 C ode: 06859-3 Heart Rate 1: 72 bpm Height: 5'3" Respiratory Rate: 20 bpm Temperature: 36 .9 (C) / 98.4 (F) Weight: 115 lbs 02/16/2017 Blood Pressure 1: 106/70 Code: 8480-6 BMI: 21.3 Code: 69330-5 Heart Rate 1: 82 bpm Height: 5'3" Respiratory Rate: 22 bpm SpO2: 97% Tempera ture: 36.1 (C) / 97.0 (F) Weight: 120 lbs 09/06/2016 Blood Pressure 1: 118/64 Code: 8480-6 BMI: 22.7 Code: 30673-5 Heart Rate 1: 78 bpm Height: 5'3" Respiratory Rate: 20 bpm SpO2: 98% Tempera ture: 36.2 (C) / 97.2 (F) Weight: 128 lbs 08/16/2016 Blood Pressure 1: 118/78 Code: 8480-6 BMI: 22.1 Code: 39107-2 Heart Rate 1: 78 bpm Height: 5'3" Respiratory Rate: 20 bpm SpO2: 97% Tempera ture: 36.2 (C) / 97.1 (F) Weight: 125 lbs 07/19/2016 Blood Pressure 1: 116/68 Code: 8480-6 BMI: 22.5 Code: 79651-8 Heart Rate 1: 76 bpm Height: 5'3" Respiratory Rate: 20 bpm Temperature: 36 .8 (C) / 98.2 (F) Weight: 127 lbs 07/06/2016 Blood Pressure 1: 106/70 Code: 8480-6 BMI: 22.5 Code: 26082-2 Heart Rate 1: 72 bpm Height: 5'3" Respiratory Rate: 20 bpm SpO2: 97% Tempera ture: 36.8 (C) / 98.2 (F) Weight: 127 lbs 06/15/2016 Blood Pressure 1: 136/76 Code: 8480-6 BMI: 22.9 Code: 55592-8 Heart Rate 1: 74 bpm Height: 5'3" Respiratory Rate: 18 bpm SpO2: 98% Tempera ture: 36.4 (C) / 97.6 (F) Weight: 129 lbs 04/09/2016 Blood Pressure 1: 124/78 Code: 8480-6 BMI: 23.0 Code: 81658-1 Heart Rate 1: 86 bpm Height: 5'3" Respiratory Rate: 20 bpm SpO2: 96% Tempera ture: 36.5 (C) / 97.7 (F) Weight: 130 lbs 03/17/2016 Blood Pressure 1: 116 Code: 8480-6 BMI: 23.4 Code: 69640-2 Heart Rate 1: 84 bpm Height: 5'3" Respiratory Rate: 20 bpm SpO2: 97% Tempera ture: 36.8 (C) / 98.3 (F) Weight: 132 lbs 11/13/2015 Blood Pressure 1: 12478 Code: 8480-6 BMI: 23.4 Code: 40870-9 Heart Rate 1: 88 bpm Height: 5'3" Respiratory Rate: 24 bpm SpO2: 98% Tempera ture: 36.8 (C) / 98.2 (F) Weight: 132 lbs 06/12/2015 Blood Pressure 1: 126/78 Code: 8480-6 BMI: 23.6 Code: 02997-2 Heart Rate 1: 80 bpm Height: 5'3" Respiratory Rate: 20 bpm Temperature: 36 .9 (C) / 98.4 (F) Weight: 133 lbs 04/22/2015 Blood Pressure 1: 126/68 Code: 8480-6 BMI: 23.6 Code: 05798-7 Heart Rate 1: 80 bpm Height: 5'3" Respiratory Rate: 20 bpm Temperature: 36 .6 (C) / 97.9 (F) Weight: 133 lbs 03/24/2015 Blood Pressure 1: 116/66 Code: 8480-6 BMI: 22.9 Code: 01910-7 Heart Rate 1: 74 bpm Height: 5'3" Respiratory Rate: 20 bpm Temperature: 36 .4 (C) / 97.6 (F) Weight: 129 lbs 02/27/2015 Blood Pressure 1: 106/64 Code: 8480-6 BMI: 22.7 Code: 33762-1 Heart Rate 1: 74 bpm Height: 5'3" Respiratory Rate: 20 bpm Temperature: 36 .8 (C) / 98.2 (F) Weight: 128 lbs 06/13/2014 Blood Pressure 1: 104/66 Code: 8480-6 BMI: 22.7 Code: 37163-2 Heart Rate 1: 84 bpm Height: 5'3" Respiratory Rate: 20 bpm Temperature: 37 .0 (C) / 98.6 (F) Weight: 128 lbs 04/18/2014 Blood Pressure 1: 112/62 Code: 8480-6 BMI: 22.0 Code: 35870-3 Heart Rate 1: 82 bpm Height: 5'3" Respiratory Rate: 18 bpm Temperature: 36 .4 (C) / 97.6 (F) Weight: 124 lbs 12/05/2013 Blood Pressure 1: 106/70 Code: 8480-6 BMI: 23.7 Code: 07640-3 Heart Rate 1: 84 bpm Height: 5'3" [...] 1: 126/88 Code: 8480-6 BMI: 22.3 Code: 74360-5 Heart Rate 1: 96 bpm Height: 5'4" Respiratory Rate: 20 bpm Temperature: 37 .7 (C) / 99.9 (F) Weight: 130 lbs 11/29/2012 Blood Pressure 1: 122/76 Code: 8480-6 BMI: 23.0 Code: 29817-7 Heart Rate 1: 84 bpm Height: 5'4" Respiratory Rate: 20 bpm Temperature: 36 .9 (C) / 98.4 (F) Weight: 134 lbs 09/26/2012 Blood Pressure 1: 114/76 Code: 8480-6 BMI: 23.0 Code: 90438-6 Heart Rate 1: 84 bpm Height: 5'4" Respiratory Rate: 20 bpm Temperature: 37 .3 (C) / 99.1 (F) Weight: 134 lbs 07/11/2012 Blood Pressure 1: 126/78 Code: 8480-6 BMI: 23.7 Code: 10084-0 Heart Rate 1: 76 bpm Height: 5'4" Respiratory Rate: 20 bpm Temperature: 37 .1 (C) / 98.7 (F) Weight: 138 lbs 02/02/2012 Blood Pressure 1: 108/70 Code: 8480-6 BMI: 23.2 Code: 97785-5 Heart Rate 1: 88 bpm Height: 5'4" Respiratory Rate: 20 bpm Temperature: 36 .4 (C) / 97.6 (F) Weight: 135 lbs 08/17/2011 Blood Pressure 1: 108/70 Code: 8480-6 BMI: 23.2 Code: 03228-8 Heart Rate 1: 72 bpm Height: 5'4" Respiratory Rate: 20 bpm Temperature: 36 .8 (C) / 98.2 (F) Weight: 135 lbs 10/14/2010 Blood Pressure 1: 120/72 Code: 8480-6 BMI: 23.4 Code: 38777-8 Heart Rate 1: 78 bpm Height: 5'3" [...] Urinary tract infection[ICD10: N39.0] Alexandra CARROLL DO [employer] CPT-4: 71289 08/14/2019 ([id number]) NURSE/OUTPATIENT VISIT EST Diagnosis: Urinary tract infection[ICD10: N39.0] Alexandra CARROLL DO [employer] CPT-4: 14912 07/26/2019 ([id number]) OFFICE/OUTPATIENT VISIT EST Diagnosis: Urinary tract infection, site not specified[ICD10: N39.0] Diagnosis: Dysuria[ICD10: R30.0] Vandana Patricksasha CARROLL DO [employer] CPT-4: 85978 07/17/2019 ([id number]) OFFICE/OUTPATIENT VISIT EST Diagnosis: Allergic dermatitis[ICD10: L23.9] Alexandra CARROLL DO [employer] CPT-4: 40598 06/26/2019 ([id number]) OFFICE/OUTPATIENT VISIT EST Diagnosis: Contact dermatitis due to plant[ICD10: L25.5] Diagnosis: Cellulitis of left arm[ICD10: L03.114] [facility]: 73172 05/14/2019 ([id number]) OFFICE/OUTPATIENT VISIT EST Diagnosis: Ventral hernia[ICD10: K43.9] Diagnosis: Incisional hernia[ICD10: K43.2] [facility] CPT-4: 65821 04/10/2019 ([id number]) OFFICE/OUTPATIENT VISIT EST Diagnosis: Insomnia[ICD10: G47.00] Diagnosis: Thrombocytosis[ICD10: D47.3] [facility] CPT-4: 26957 02/14/2019 ([id number]) OFFICE/OUTPATIENT VISIT EST Diagnosis: Small bowel obstruction[ICD10: K56.609] Diagnosis: FLU VACCINE[ICD10: Z23] Diagnosis: PNEUMOCOCCAL VACCINE[ICD10: Z23] Diagnosis: Onychomycosis[ICD10: B35.1] Alexandra SHAFFERLINE Ty KUNZ [facility] CPT-4: 61930 01/16/2019 ([id number]) OFFICE/OUTPATIENT VISIT EST Diagnosis: Diarrhea, unspecified[ICD10: R19.7] Diagnosis: Radiculopathy, lumbosacral region[ICD10: M54.17] [facility] CPT-4: 71045 09/18/2018 OFFICE/OUTPATIENT VISIT EST Diagnosis: Other intervertebral disc degeneration, lumbar region[ICD10: M51.36] Diagnosis: Sacroiliitis, not elsewhere classified[ICD10: M46.1] Diagnosis: Obstructive sleep apnea (adult) (pediatric)[ICD10: G47.33] [facility] CPT-4: 18638 08/10/2018 ([id number]) OFFICE/OUTPATIENT VISIT EST Diagnosis: Fracture of unspecified part of left clavicle, subsequent encounter for fracture with routine healing[ICD10: S42.002D] Diagnosis: Cervicalgia[ICD10: M54.2] Diagnosis: Radiculopathy, lumbosacral region[ICD10: M54.17] Alexandra CARROLL [facility] CPT-4: 59554 03/27/2018 ([id number]) OFFICE/OUTPATIENT VISIT EST Diagnosis: Fracture of unspecified part of left clavicle, subsequent encounter for fracture with routine healing[ICD10: S42.002D] Diagnosis: Other intervertebral disc degeneration, lumbar region[ICD10: M51.36] Diagnosis: Unspecified fracture of first thoracic vertebra, subsequent encounter for fracture with routine healing[ICD10: S22.019D] Diagnosis: Unspecified fracture of second thoracic vertebra, subsequent encounter for fracture with routine healing[ICD10: S22.029D] Alexandra CARROLL [facility] CPT-4: 04301 02/23/2018 ([id number]) OFFICE/OUTPATIENT VISIT EST Diagnosis: Fracture of unspecified part of left clavicle, subsequent encounter for fracture with routine healing[ICD10: S42.002D] Diagnosis: Unspecified fracture of first thoracic vertebra, subsequent encounter for fracture with routine healing[ICD10: S22.019D] Diagnosis: Unspecified fracture of second thoracic vertebra, subsequent encounter for fracture with routine healing[ICD10: S22.029D] Alexandra CARROLL [facility] CPT-4: 74683 01/24/2018 ([id number]) OFFICE/OUTPATIENT VISIT EST Diagnosis: Migraine, unspecified, not intractable, without status migrainosus[ICD10: G43.909] Alexandra CARROLL [facility] CPT - 4: 61685 01/17/2018 ([id number]) OFFICE/OUTPATIENT VISIT EST Diagnosis: Hematuria, unspecified[ICD10: R31.9] Diagnosis: Other intervertebral disc degeneration, lumbar region[ICD10: M51.36] Diagnosis: Retention of urine, unspecified[ICD10: R33.9] Alexandra CARROLL [facility] CPT-4: 55190 12/29/2017 OFFICE/OUTPATIENT VISIT EST Diagnosis: Fracture of [...] Low back pain[ICD10: M54.5] Alexandra KUNZ DO [facility] CPT-4: 64432 12/06/2017 ([id number]) OFFICE/OUTPATIENT VISIT EST Diagnosis: Cellulitis of right upper limb[ICD10: L03.113] Diagnosis: Allergy status to other antibiotic agents status[ICD10: Z88.1] Vandana CARROLL DO [facility] CPT-4: 97701 12/01/2017 ([id number]) OFFICE/OUTPATIENT VISIT EST Diagnosis: Cellulitis of right upper limb[ICD10: L03.113] Diagnosis: Allergy status to other antibiotic agents status[ICD10: Z88.1] Vandana CARROLL DO [facility] CPT-4: 09520 11/30/2017 ([id number]) OFFICE/OUTPATIENT VISIT EST Diagnosis: Cellulitis of right upper limb[ICD10: L03.113] Vandana CARROLL DO [facility] CPT-4: 60703 11/29/2017 ([id number]) OFFICE/OUTPATIENT VISIT EST Diagnosis: Cellulitis of right upper limb[ICD10: L03.113] Vandana CARROLL DO [facility] CPT-4: 45671 11/28/2017 ([id number]) OFFICE/OUTPATIENT VISIT EST Diagnosis: Other intervertebral disc degeneration, lumbar region[ICD10: M51.36] Diagnosis: Other retention of urine[ICD10: R33.8] Diagnosis: Primary insomnia[ICD10: F51.01] Diagnosis: Other spondylosis, site unspecified[ICD10: M47.899] Alexandra CARROLL [facility] CPT-4: 53789 11/17/2017 ([id number]) OFFICE/OUTPATIENT VISIT EST Diagnosis: Radiculopathy, lumbosacral region[ICD10: M54.17] Diagnosis: Other retention of urine[ICD10: R33.8] Diagnosis: Urinary tract infection, site not specified[ICD10: N39.0] Vandana CARROLL DO [facility] CPT-4: 87988 10/10/2017 ([id number]) PREV VISIT EST AGE 40-64 Diagnosis: Encounter for general adult medical examination without abnormal findings[ICD10: Z00.00] Diagnosis: Other intervertebral disc degeneration, lumbar region[ICD10: M51.36] Diagnosis: Hypothyroidism, unspecified[ICD10: E03.9] Diagnosis: Mixed hyperlipidemia[ICD10: E78.2] Alexandra Glen EDMUNDFELIPE CARROLL [facility] CPT-4: 07811 06/22/2017 ([id number]) OFFICE/OUTPATIENT VISIT EST Diagnosis: URI, ACUTE[ICD10: J06.9] Alexandra Danelawandajavier ALEXANDRA MacyAri [facility] CPT-4: 86496 03/28/2017 OFFICE/OUTPATIENT VISIT EST Diagnosis: Acute sinusitis, unspecified[ICD10: J01.90] Vandana CavazosAri GLEN [facility] CPT-4: 49223 02/16/2017 ([id number]) OFFICE/OUTPATIENT VISIT EST Diagnosis: Migraine, unspecified, not intractable, without status migrainosus[ICD10: G43.909] Alexandra SHAFFERLINE MacyAri GLEN [facility] CPT - 4: 52815 11/02/2016 ([id number]) OFFICE/OUTPATIENT VISIT EST Diagnosis: Pain in thoracic spine[ICD10: M54.6] Diagnosis: Chondrocostal junction syndrome [Tietze][ICD10: M94.0] Alexandra Danelawandajavier ALEXANDRA MacyAri GLEN [facility] CPT-4: 06108 09/06/2016 OFFICE/OUTPATIENT VISIT EST Diagnosis: Acute sinusitis, unspecified[ICD10: J01.90] Vidya Manuel ALEXANDRA MacyAri GLEN [facility] CPT-4: 29871 08/16/2016 ([id number]) OFFICE/OUTPATIENT VISIT EST Diagnosis: Primary insomnia[ICD10: F51.01] Diagnosis: Cramp and spasm[ICD10: R25.2] Diagnosis: Major depressive disorder, single episode, mild[ICD10: F32.0] Alexandrateja CARROLL [facility] CPT-4: 90865 07/19/2016 ([id number]) OFFICE/OUTPATIENT VISIT EST Diagnosis: Obstructive sleep apnea (adult) (pediatric)[ICD10: G47.33] Diagnosis: Other fatigue[ICD10: R53.83] Diagnosis: Allergic rhinitis due to pollen[ICD10: J30.1] Diagnosis: Headache[ICD10: R51] Alexandra CARROLL DO [facility] CPT-4: 02981 07/06/2016 ([id number]) OFFICE/OUTPATIENT VISIT EST Diagnosis: Acute recurrent sinusitis, unspecified[ICD10: J01.91] Diagnosis: Allergic rhinitis due to pollen[ICD10: J30.1] Alexandra CARROLL DO [facility] CPT-4: 99234 06/15/2016 ([id number]) OFFICE/OUTPATIENT VISIT EST Diagnosis: Migraine, unspecified, not intractable, without status migrainosus[ICD10: G43.909] Diagnosis: Allergic rhinitis, unspecified[ICD10: J30.9] Nae CARROLL [facility] CPT-4: 51656 04/09/2016 ([id number]) OFFICE/OUTPATIENT VISIT EST Diagnosis: Hypothyroidism, unspecified[ICD10: E03.9] Diagnosis: Other fatigue[ICD10: R53.83] Diagnosis: Mixed hyperlipidemia[ICD10: E78.2] Diagnosis: Major depressive disorder, single episode, mild[ICD10: F32.0] Alexandra CARROLL [facility] CPT-4: 18197 03/17/2016 ([id number]) OFFICE/OUTPATIENT VISIT EST Diagnosis: Insomnia, unspecified[ICD10: G47.00] Diagnosis: Encounter for therapeutic drug level monitoring[ICD10: Z51.81] Nae Woody SHAFFERLINE Ty CARROLL [facility] CPT-4: 28627 11/13/2015 ([id number]) OFFICE/OUTPATIENT VISIT EST Diagnosis: Hematuria, unspecified[ICD10: R31.9] Alexandra CARROLL [facility] CPT-4: 74134 05/05/2015 ([id number]) OFFICE/OUTPATIENT VISIT EST Diagnosis: Other intervertebral disc degeneration, lumbar region[ICD10: M51.36] Diagnosis: Radiculopathy, lumbosacral region[ICD10: M54.17] Alexandra CARROLL DO [facility] CPT-4: 00128 04/22/2015 ([id number]) OFFICE/OUTPATIENT VISIT EST Diagnosis: Low back pain[ICD10: M54.5] Diagnosis: Recurrent and persistent hematuria with unspecified morphologic changes[ICD10: N02.9] Alexandradanielle CARROLL DO [facility] CPT-4: 44520 03/24/2015 ([id number]) OFFICE/OUTPATIENT VISIT EST Diagnosis: Acute sinusitis, unspecified[ICD10: J01.90] Diagnosis: Headache[ICD10: R51] Diagnosis: Retention of urine, unspecified[ICD10: R33.9] Diagnosis: Hypothyroidism, unspecified[ICD10: E03.9] Alexandradanielle SHAFFERLINE MacyAri GLEN [facility] CPT-4: 80775 02/27/2015 ([id number]) PREV VISIT EST AGE 40-64 Diagnosis: ROUTINE MEDICAL EXAM[ICD9: V70.0] Diagnosis: HYPOTHYROIDISM[ICD9: 244.9] Diagnosis: HYPERLIPIDEMIA NEC/NOS[ICD9: 272.4] Alexandra Danejames CORDOBA Ty CARROLL DO [facility] CPT-4: 31645 06/13/2014 ([id number]) OFFICE/OUTPATIENT VISIT EST Diagnosis: CEPHALGIA[ICD9: 784.0] Diagnosis: Nausea[ICD9: 787.02] Shalini Romeo MARINQUELINE Ty CARROLL DO [facility] CPT-4: 56237 04/18/2014 ([id number]) OFFICE/OUTPATIENT VISIT EST Diagnosis: INSOMNIA NOS[ICD9: 780.52] Diagnosis: Complicated grieving[ICD9: 309.0] Alexandra Louise MacyAri GLEN [facility] CPT-4: 76419 12/05/2013 ([id number]) OFFICE/OUTPATIENT VISIT EST Diagnosis: Muscle twitch[ICD9: 781.0] Diagnosis: ALLERGIC RHINITIS[ICD9: 477.9] Alexandra FORDE Macy Ari GLEN [facility] CPT-4: 01518 06/05/2013 ([id number]) OFFICE/OUTPATIENT VISIT EST Diagnosis: DEPRESSIVE DISORDER NEC[ICD9: 311] Alxeandra Orendjavier QUINTERO S. DANENDER [facility] CPT-4: 57105 05/22/2013 OFFICE/OUTPATIENT VISIT EST Diagnosis: Shingles[ICD9: 053.9] Alexandra VELANDER [facility] CPT-4: 14447 04/05/2013 ([id number]) OFFICE/OUTPATIENT VISIT EST Diagnosis: DEPRESSIVE DISORDER NEC[ICD9: 311] Alexandrateja QUINTERO S. DANENDER DO [facility] CPT-4: 13962 03/26/2013 ([id number]) OFFICE/OUTPATIENT VISIT EST Diagnosis: Complicated grieving[ICD9: 309.0] Alexandra Carroll PAM Dani SAri VELAND[facility] CPT-4: 74478 03/06/2013 ([id number]) OFFICE/OUTPATIENT VISIT EST Diagnosis: CEPHALGIA, TENSION[ICD9: 307.81] Diagnosis: MIGRAINE NOS/NOT INTRCBL[ICD9: 346.90] Diagnosis: Cervicalgia[ICD9: 723.1] Alexandra Velalawandajavier SHAFFERALEXANDRA Ty VELAN IZABELLA [facility] CPT-4: 22268 11/29/2012 ([id number]) OFFICE/OUTPATIENT VISIT EST Diagnosis: Jaw pain[ICD9: 784.92] Diagnosis: Shoulder pain[ICD9: 719.41] Diagnosis: Family history of premature coronary artery disease[ICD9: V17.3] Alexandra Danejames ALEXANDRA MacyAri GLEN [facility] CPT-4: 57912 09/26/2012 ([id number]) OFFICE/OUTPATIENT VISIT EST Diagnosis: ABDOMINAL PAIN[ICD9: 789.00] Diagnosis: Constipation[ICD9: 564.00] Diagnosis: Hematuria[ICD9: 599.70] Alexandra Carroll ALEXANDRA MacyAri DANEND ER [facility] CPT-4: 99410 07/11/2012 ([id number]) OFFICE/OUTPATIENT VISIT EST Diagnosis: ANEMIA NOS[ICD9: 285.9] Alexandra FORDE MacyAri DANEND ER DO [facility] CPT-4: 62060 02/17/2012 ([id number]) PREV VISIT EST AGE 40-64 Diagnosis: ROUTINE MEDICAL EXAM[ICD9: V70.0] Diagnosis: HYPOTHYROIDISM[ICD9: 244.9] Diagnosis: HYPERLIPIDEMIA NEC/NOS[ICD9: 272.4] Diagnosis: Obstructive sleep apnea[ICD9: 327.23] Alexandra Glen ISLAS S. ORENDER DO [facility] CPT-4: 37810 02/02/2012 ([id number]) OFFICE/OUTPATIENT VISIT EST Diagnosis: URINARY TRACT INFECTION[ICD9: 599.0] Alexandra Glen LOZANO S. ORENDER DO [facility] CPT-4: 05652 08/27/2011 ([id number]) OFFICE/OUTPATIENT VISIT EST Diagnosis: URINARY TRACT INFECTION[ICD9: 599.0] Diagnosis: ACUTE CYSTITIS[ICD9: 595.0] Alexandra Glen ALEXANDRA S. O RENDER DO [facility] CPT-4: 84640 08/17/2011 OFFICE/OUTPATIENT VISIT EST Diagnosis: URINARY TRACT INFECTION[ICD9: 599.0] Steph MARINQUE DANIELLE S. ORENDER DO [facility] CPT-4: 25206 10/14/2010 Plan of Care Planned Activity Notes Codes Status Date Appointment: Alexandra Carroll WPtel: [facility] [place] [address] 07/26/2019 Visit Diagnosis Plan: Urinary tract infection, site no t specified Discussion: urine sent for culture. cipro prescribed to take as directed and instructed to stop the macrobid that she has since there is no improvement in symptoms. push fluids. will call patient pending culture results. ICD-9 : 599.0 ICD-10 : N39.0 07/17/2019 Appointment: [facility] 07/17/2019 Patient Education: Cipro- [employer] Abiel [id number] [email or web address].[employer].com/samplemd/resources/getResource/[email or web address].pdf Completed 07/17/2019 Visit Diagnosis Plan: Allergic dermatitis Discussion: Could be numerous things that were given during surgery Continue benadryl Add Prednisone Notify if persists/worsens ICD-9 : 692.9 ICD-10 : L23.9 06/26/2019 Appointment: Alexandra Carroll WPtel: [phone] [facility] ACUTE ILLNESS 06/26/2019 Patient Education: prednisone- [employer] Coupon [id number] [email or web address].[employer].DooBop/sampleMentorCloud/resources/getResource/[email or web address] Completed 06/26/2019 Visit Diagnosis Plan: Contact dermatitis due to plant Discussion: kenalog 40 and dexa 4 given in office. i called the office of dr. albert to make sure he was ok with patient receiving steroid injection a week pre-op and dr. albert's wound care coordinator voiced ok to give. ICD-9 : 692.6 ICD-10 : L25.5 05/14/2019 Visit Diagnosis Plan: Cellulitis of left arm Discussio n: due to patient's multiple allergies, levaquin was prescribed to take as directed. call office with new or worsening symptoms. ICD-9 : 682.3 ICD-10 : L03.114 05/14/2019 Appointment: Vandana Crowe [address] [place] [address] ACUTE ILLNESS 05/14/2019 Patient Education: Levaquin- [employer] Coupon [phone] https://www.[employer].DooBop/samplemd/resources/getResource/[email or web address] Completed 05/14/2019 Visit Diagnosis Plan: Ventral hernia Discussion: See s urgery for repair Discussed signs of incarceration or strangulation then is to report to ER ICD-9 : 553.20 ICD-10 : K43.9 04/10/2019 Appointment: Alexandra Carroll WPtel: [phone] [facility] left second message 04/10/19 at 10:20 ACUTE ILLNE SS 04/10/2019 Care Plan: Referral Order SNOMED-CT : 30 [id number] Pending 04/10/2019 Visit Diagnosis Plan: Thrombocytosis Discussion: [...] : G47.00 02/14/2019 Appointment: Alexandra Carroll WPtel: [address] [place] [address] FOLLOW UP 02/14/2019 Appointment: Alexandra Carroll WPtel: [address] [place] [address] US CANCELED 02/12/2019 Visit Diagnosis Plan: Small bowel obstruction Discussi on: S/P surgery in September with postop complications of wound dehiscence ICD-9 : 560.9 ICD-10 : K56.609 01/16/2019 Visit Diagnosis Plan: Onychomycosis Discussion: Send n ail for culture ICD-9 : 110.1 ICD-10 : B35.1 01/16/2019 Appointment: Alexandra Carroll WPtel: [address] [place] [address] MEDICATION REVIEW 01/16/2019 Appointment: Alexandra Carroll WPtel: [address] [place], [place] [id number] US CANCELED 12/12/2018 Visit Diagnosis Plan: Radiculopathy, lumbosacral regio n Discussion: Had left SI joint injection by Dr. Baig about 2 weeks ago and has fwup with him ICD-9 : 724.4 ICD-10 : M54.17 09/18/2018 Visit Diagnosis Plan: Diarrhea, unspecified Discussion : Due for updated colonoscopy ICD-9 : 787.91 ICD-10 : R19.7 09/18/2018 Appointment: Alexandra Carroll WPtel: [address] [place] [address] PATIENT CONSULT 15 09/18/2018 Care Plan: Referral Order SNOMED-CT : 30 [id number] Pending 09/18/2018 Visit Diagnosis Plan: Sacroiliitis, not [...] : G47.33 08/10/2018 Appointment: Alexandra Carroll WPtel: [address] [place], [place] [id number] US MEDICATION REVIEW 08/10/2018 Care Plan: Referral Order SNOMED-CT : 30 [id number] Pending 08/10/2018 Appointment: Alexandra Carroll WPtel: [address] [place], [place] [id number] US CANCELED 04/17/2018 Visit Diagnosis Plan: Fracture [...] : M54.17 03/27/2018 Appointment: Alexandra Carroll WPtel: [address] [place], [place] [phone] US FOLLOW UP 03/27/2018 Visit Diagnosis Plan: [...] : M51.36 02/23/2018 Appointment: Alexandra Carroll WPtel: [address] [place] [address] US FOLLOW UP 02/23/2018 Patient Education: [email or web address] C[employer]on [phone] [email or web address]/[email or web address] Completed 02/23/2018 Visit Diagnosis Plan: Fracture of unspec ified part of left clavicle, subsequent encounter for fracture with routine healing Discussion: Hold on PT and do home stretches Trial of gabapentin Recheck 4 weeks ICD-9 : V54.11 ICD-10 : S42.002D 01/24/2018 Appointment: Alexandra Carroll WPtel: [address] [place], [place] [phone] [place] FOLLOW UP 01/24/2018 Visit Diagnosis Plan: Migraine, unspecif ied, not intractable, without status migrainosus Discussion: Toradol and phenergan given ICD-9 : 346.90 ICD-10 : G43.909 01/17/2018 Appointment: Alexandra Carroll WPtel: [address] [place], [place] [phone] [place] ACUTE ILLNESS 01/17/2018 Visit Diagnosis Plan: [...] R33.9 12/29/2017 Appointment: Alex[facility] Carroll [facility] [facility] 12/29/2017 Care Plan: US EXAM PELVIC COMPLETE LOINC : 71039-1 Pending 12/29/2017 Care Plan: ECHO EXAM OF ABDOMEN LOINC : 88322-9 Pending 12/29/2017 Care Plan: Referral Order SNOMED-CT : 30 6056793 Pending 12/29/2017 Visit Diagnosis Plan: Fracture of unspec ified part of left clavicle, subsequent encounter for fracture with routine healing Discussion: Start PT in another 7-14 days Off work for the rest of this week then may return to part-time work on 12/12/17 Fwup in 4 weeks ICD-9 : V54.11 ICD-10 : S42.002D 12/06/2017 Appointment: Alexandra Carroll [facility]Ptel: [facility] [facility] FOLLOW UP 12/06/2017 Patient Education: Patient Medication [...] : Z88.1 12/01/2017 Appointment: Vandana Crowe [address] [facility] FOLLOW UP 12/01/2017 Patient Education: Patient Medication [...] : L03.113 11/30/2017 Appointment: Vandana Crowe [address] [facility] 11/30/2017 Patient Education: Patient Medication Summary Completed [...] ICD-10 : L03.113 11/29/2017 Appointment: Vandana Crowe [address] [place], [place] [phone] FOLLOW UP 11/29/2017 Patient Education: Patient Medication [...] ICD-10 : L03.113 11/28/2017 Appointment: Vandana Crowe [address] [place], [place] [phone] ACUTE ILLNESS 11/28/2017 Patient [...] : M47.899 11/17/2017 Appointment: Alexandra Carroll WPtel: [facility] MEDICATION REVIEW 11/17/2017 Patient Education: Patient Medication Summary Completed 11/17/2017 Care Plan: Referral Order SNOMED-CT : 30 3112072 Pending 11/17/2017 Patient Education: Patient Medication Summary Completed 10/12/2017 Care Plan: MRI LUMBAR SPINE W/O DYE LOIN C : 07994-2 Pending 10/12/2017 Care Plan: X-RAY EXAM L-S SPINE 2/3 VWS LOINC : 81485-2 Pending 10/11/2017 Visit Diagnosis Plan: Other retention [...] medrol pack to start tomorrow. [facility] immediately with inversion table. instructed patient to go to ED immediately if she develops any incontinence with bowel or bladder. patient verbalized understanding. if no improvement, will need updated MRI and referral to surgeon. ICD-9 : 724.4 ICD-10 : M54.17 10/10/2017 Appointment: Vandana Crowe [address] [place] [address] ACUTE ILLNESS 10/10/2017 Patient Education: Patient Medication Summary Completed 10/10/2017 Appointment: Vandana Crowe [address] [place] [address] ACUTE ILLNESS 08/01/2017 Visit Diagnosis Plan: Other intervertebral disc degene ration, lumbar region Discussion: Core strengtheing and inversion table and if worsening will need updated MRI ICD-9 : 722.52 ICD-10 : M51.36 06/22/2017 Visit Diagnosis Plan: Encounter for [facility] adult medical examination without abnormal findings Discussion: Lab dis ussed Follow Up: 6 months ICD-9 : V70.0 ICD-10 : Z00.00 06/22/2017 Appointment: Alexandra Carroll WPtel: [phone] Annual Well Visit 06/22/2017 Patient Education: Patient Medication Summary Completed 06/22/2017 Patient Education: Patient Medication Summary Completed 06/16/2017 Care Plan: [facility] 43733-3 Pending 06/16/2017 Care Plan: ASSAY THYROID STIM HORMONE Pen ding 06/16/2017 Care Plan: ASSAY OF FREE THYROXINE Pendin g 06/16/2017 Care Plan: LIPID PANEL LOINC : 65564-5 Pending 06/16/2017 Care Plan: CBC Pending 06/16/2017 [...] care. Rest, Fluids... 03/28/2017 Appointment: Alexandra Carrolltel: [address] [place] [address] ACUTE ILLNESS 03/28/2017 Patient Education: Patient Medication Summary Completed 03/28/2017 Visit Diagnosis Plan: Acute sinusitis, unspecified Dis cussion: cefdinir and medrol dose pack prescribed to be taken as directed. tylenol/ibuprofen as needed. educated on importance of taking singulair or zyrtec daily to prevent worsening symptoms. keep hydrated. ICD-9 : 461.9 ICD-10 : J01.90 02/16/2017 Appointment: Vandana Crowe [address] [place] [address] ACUTE ILLNESS 02/16/2017 Patient Education: Patient Medication Summary Completed 02/16/2017 Appointment: Alexandra Carroll WPtel: [address] [place] [address] [place] INJECTION 11/02/2016 Patient Education: Patient Medication Summary Completed 11/02/2016 Visit Diagnosis Plan: Pain in thoracic spine Discussio n: Increase flexeril to 10mg po BID Add Mobic 15mg po daily Towel stretch May see chiropractor to adjust ribs Notify if persists or worsening ICD-9 : 724.1 ICD-10 : M54.6 09/06/2016 Appointment: Alexandra Carroll WPtel: [address] [place] [address] ACUTE ILLNESS 09/06/2016 Patient Education: Patient Medication Summary Completed 09/06/2016 Visit Plan: Due to hx, ERx Cefdinir and Prednisone (discussed risks for both) Given bottle for nasal saline rinses Tylenol/Ibuprofen prn pain/fever Fluids/rest Discussed s/s of worsening, RTC if no improvement 08/16/2016 Appointment: Vidya Manuel WPtel: [address] [place] [address] ACUTE ILLNESS 08/16/2016 Patient Education: Patient Medication [...] : F51.01 07/19/2016 Appointment: Alexandra Carroll WPtel: [address] [place], [place] [phone] 07/15 confirmed`sl FOLLOW UP 07/19/2016 Patient Education: [...] : G47.33 07/06/2016 Appointment: Alexandra Carroll WPtel: [facility] 07/05 confirmed-sp FOLLOW UP 07/06/2016 Patient [...] : J30.1 06/15/2016 Appointment: Alexandra Carroll WPtel: [facility] 06/14 lm ~sl ACUTE ILLNESS 06/15/2016 Patient Education: Patient Medication Summary Completed 06/15/2016 Visit Diagnosis Plan: Migraine, unspecif ied, not intractable, without status migrainosus Discussion: Injection as above Drink ple nty of water No driving x 6 hours Rest No OTC nsaids today Follow up PRN Refill called of claritin-d ICD-9 : 346.90 ICD-10 : G43.909 04/09/2016 Appointment: Nae [facility]ckay [facility] [facility] 04/09/2016 Patient Education: Patient Medication [...] : E78.2 03/17/2016 Appointment: Alexandra Carroll WPtel: [address] [place], [place] [address] 03/16 nvm~sl 03/17 confirmed`sl FOLLOW UP 0 03/17/2016 Patient Education: Patient Medication Summary Completed 03/17/2016 Appointment: Alexandra Carroll WPtel: [address] [place] [address] [place] 03/11 lm~sl 03/15lm `sl 03/15 confirmed`sl FOLLOW U P 03/15/2016 Visit Plan: Discussed labeled indication s for benzos. Since xanax is not labeled for sleep and she has never tried anything else, encouraged her to trial restoril(another benzo) since it is labeled for sleep. She agrees with this trial. Rx called to [facility] after cost comparison which is nearly the same robert. If working well, continue the [id number] office visits. Call if not working well, and will restart xanax at for sleep. 11/13/2015 Appointment: Nae Mckay [facility] 11/11 confirmed~sl FOLLOW UP 11/13/2015 Patient Education: Patient Medication Summary Completed 11/13/2015 Appointment: Alexandra Carroll WPtel: [address] [place], [place] [phone] Suture Removal 06/23/2015 Patient Education: Patient Medication Summary Completed 06/23/2015 Visit Plan: Removal of lesion above usin g 3-0 punch biopsy Return in 10 days for suture removal 06/12/2015 Appointment: Alexandra Carroll WPtel: [address] [place] [address] [place] 06/10 lm ~sl ACUTE ILLNESS 06/12/2015 Patient Education: Patient Medication Summary Completed 06/12/2015 Referral: Soy Garcia WPtel: [address] [id number] [place] Schedule patient around lunch time and 3 weeks from 04/22/2015 ~sl Spoke with Kiesha at Dr. Sandoval [facility] and 04/24/15 and scheduled the patient ~sl 04/24/15 Patient is informed~sl 06/03 Patient canceled the appointment ~ sl Patient did not show up for scheduled appointment-sp Appoint ment Requested 05/21/2015 Appointment: Alexandra Carroll WPtel: [address] [place], [place] [phone] UA 05/05/2015 Patient Education: Patient Medication Summary Completed 05/05/2015 Visit Plan: Starts PT today Schedule wit h Dr. Garcia for epidural CT abdomen/pelvis results discussed Sees [employer] INST[employer]ER in April and will get checked then 04/22/2015 Appointment: Alexandra Carroll WPtel: [address] [place] [address] 04/21 confirmed~lb ACUTE ILLNESS 04/22/2015 Patient Education: Patient Medication Summary Completed 04/22/2015 Referral: Lincoln Hernandez WPtel: [address] [place] [address] Referral Initiated 04/10/2015 Patient Education: Patient Medication Summary Completed 04/09/2015 Visit Plan: Start with lumosacral spine x-ray--will likely need MRI of L/S spine x-ray Needs urology--has had to have bladder stretched in past Tivorbex 03/24/2015 Appointment: Alexandra Carroll WPtel: [address] [place], [place] [phone] 03/21/15 appt confirmed cn ACUTE ILLNESS 03/24 Patient Education: Patient Medication Summary Completed 03/24/2015 Visit Plan: Saline nasal flushes prn. Ty lenol/Motrin prn headache. Notify if persists/symptoms worsening. Cefuroxime to cover both sinuses and UTI Culture urine Check lab 02/27/2015 Appointment: Alexandra Carroll WPtel: [address] [place], [place] [phone] 02/26/15 vm to confirm and need new insu meri on file is inactive cn....02/27/15 appt confirmed cn ACUTE ILLNESS 015 Patient Education: Patient Medication Summary Completed 02/27/2015 Visit Plan: Lab discussed Stop simvastat in Check lipids in 6mos Continue all other meds at current dose Had Pap and Mammo 3 weeks ago 06/13/2014 Appointment: Alexandra Carroll WPtel: [address] [place] [address] Annual Well Visit 06/13/2014 Patient Education: Patient Medication Summary Completed 06/13/2014 Appointment: Shalini Walters WPtel: [address] [place] [address] ACUTE ILLNESS 04/18/2014 Patient Education: Patient Medication Summary Completed 04/18/2014 Visit Plan: Check lab in May then fwup Can try decreasing xanax to 1mg q HS with melatonin 5-10mg q HS 12/05/2013 Appointment: Alexandra Carroll WPtel: [address] [place] [address] 12/04 FOLLOW UP 12/05/2013 Patient Education: Patient Medication Summary Completed 12/05/2013 Appointment: Alexandra Carroll WPtel: [address] [place] [address] FOLLOW UP 06/05/2013 Patient Education: Patient Medication Summary Completed 06/05/2013 Appointment: Alexandra Carroll WPtel: [address] [place] [address] FOLLOW UP 05/22/2013 Patient Education: Patient Medication Summary Completed 05/22/2013 Visit Plan: Zovirax for 2wks Notify if p ain worsens or if persists 04/05/2013 Appointment: Alexandra Carroll WPtel: [address] [place] [address] ACUTE ILLNESS 04/05/2013 Patient Education: Patient Medication Summary Completed 04/05/2013 Visit Plan: Keep Wellbutrin at current d ose Pt did see for counseling 03/26/2013 Appointment: Alexandra Carroll WPtel: [address] [place] [address] ACUTE ILLNESS 03/26/2013 Patient Education: Patient Medication Summary Completed 03/26/2013 Visit Plan: Continue citalopram at curre nt dose Increase xanax to 1-2mg q HS for sleep Add Wellbutrin Sr 100mg q AM Start Counseling 03/06/2013 Appointment: Alexandra Carroll WPtel: [address] [place] [address] ACUTE ILLNESS 03/06/2013 Patient Education: Patient Medication Summary Completed 03/06/2013 Appointment: Alexandra Carroll WPtel: [address] [place] [address] ACUTE ILLNESS 11/29/2012 Patient Education: Patient Medication Summary Completed 11/29/2012 Appointment: Alexandra Carroll WPtel: [address] [place] [address] ACUTE ILLNESS 09/26/2012 Patient Education: Patient Medication Summary Completed 09/26/2012 Appointment: Alexandra Carroll WPtel: [address] [place] [address] ACUTE ILLNESS 07/11/2012 Patient Education: Patient Medication Summary Completed 07/11/2012 Appointment: Alexandra Carroll WPtel: [address] [place] [address] LAB 02/17/2012 Patient Education: Patient Medication Summary Completed 02/17/2012 Visit Plan: Check fasting lab Start annie y ca with Vit D Cont CPAP Mammo up-to-date Hemoccult card given 02/02/2012 Appointment: Alexandra Carroll WPtel: [address] [place] [address] PHYSICAL 02/02/2012 Patient Education: Patient Medication Summary Completed 02/02/2012 Appointment: Alexandra Carroll WPtel: [address] [place] [address] UA 08/27/2011 Patient Education: Patient Medication Summary Completed 08/27/2011 Visit Plan: Levaquin and Diflucan for 1w k Then cipro QOD for prophylaxis 08/17/2011 Appointment: Alexandra Carroll WPtel: [address] [place] [address] FOLLOW UP 08/17/2011 Patient Education: Patient Medication Summary Completed 08/17/2011 Appointment: Alexandra Carroll WPtel: [address] [place] [address] UA 12/28/2010 Patient Education: Patient Medication Summary Completed 12/28/2010 Appointment: Alexandra Carroll WPtel: [address] [place] [address] 11/09/2010 Patient Education: Patient Medication Summary Completed 11/09/2010 Appointment: Alexandra Carroll WPtel: [address] [place] [address] UA 10/29/2010 Patient Education: Patient Medication Summary Completed 10/29/2010 Appointment: Steph Bowen WPtel: [address] [place] [address] ACUTE ILLNESS 10/14/2010 Patient Education: Patient Medication Summary Completed 10/14/2010 Referral: Florian Baig WPtel: [facility] [place] [address] [id number] [place] Referral Initiated Referral: Paulo Albert WPtel: [phone] [id number] [place] Referral Appointment Requested Referral: Luis Enrique Jasso WPtel: [facility] [address], [facility] 1 [id number] [place] Referral Appointment Requested Referral: Florian Baig WPtel: [facility] [address] 1 [id number] [place] Referral Appointment Requested Referral: Caleb Glaser WPtel: [address] [id number] [place] Referral Appointment Requested Referral: Florian Baig WPtel: [facility] [address], [facility] 1 [id number] Referral Initiated Referral: Florian Baig WPtel: [facility] [address], [address] Referral Appointment Requested Instructions Comment . [...] agrees with this trial. Rx called to [facility] after cost comparison which is nearly the same robert. If working well, continue the [id number] office visits. Call if not working well, and will restart xanax at HS for sleep. . Removal of lesion above using 3-0 punc h biopsy Return in 10 days for suture removal . Starts PT today Schedule with Dr. 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 Continue citalopram at current [...]
--- OUTSIDE RECORDS SUMMARY | 2019-09-02 00:12 | XMS REPORT | CCD ---
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 Name Role Phone Alexandra Carroll D.O., PP Unavailable CCM Unavailable Summary Purpose Interface Exchange Insurance Providers Payer name Policy type / Coverage type Covered republican ID Effective Begin Date Effective End Date WPS MEDICARE PART B [place] Medicare Part B [id number] 2019 Unknown [employer] [place] Medicare Part B [id number] Unknown Family History Family History data not found Social History Social History Element Codes Description Effective Dates Tobacco history SNOMED CT: 770815851 Nonsmoker 10/14/2010 Allergies, Adverse Reactions, Alerts Substance Reaction Codes Entered Date Inactivated Date Status MORPHINE SULFATE RxNorm: 2918993 10/14/2010 No Inactive Da te Active CEPHALOSPORINS [...] Start Date Stop Date Status Fill Instructions cyclobenzaprine 10 mg tablet RxNorm: 376762 Tablet(s) Oral as neede d 07/17/2019 No Stop Date Active Cipro 500 mg tablet RxNorm: 195831 1 Tablet(s) Oral two times a day 07/17/2019 07/22/2019 Inactive Xanax 1 mg tablet RxNorm: 072373 1-2 Tablet(s) Oral e very night at bedtime as needed for sleep 07/10/2019 08/08/2019 Active Generic For:LAVELLE AX 1MG 10/11/2016 11:15:13 AM prednisone 20 mg tablet RxNorm: 152507 1 Tablet(s) Oral two harlan es a day 06/26/2019 07/03/2019 Inactive Amabelz 1 mg-0.5 mg tablet RxNorm: 1727177 1 Tablet(s) Oral QD 05/3007/17/2019 Inactive Trazadone 150 mg Tablet RxNorm: 1 Tablet(s) Oral every n ight at bedtime 05/14/2019 No Stop Date Active Levaquin 500 mg tablet RxNorm: 164137 1 Tablet(s) Oral QD 05/14/2019 05/21/2019 Inactive Xanax 1 mg tablet RxNorm: 404833 1-2 Tablet(s) Oral e very night at bedtime as needed for sleep 05/03/2019 06/01/2019 Inactive Generic For:LAVELLE AX 1MG 10/11/2016 11:15:13 AM cyclobenzaprine 10 mg tablet RxNorm: 985054 1 Tablet(s) Oral three times a day as needed for muscle spasm 02/12/2019 02/12/2019 Inactive Xanax 1 mg tablet RxNorm: 130939 1-2 Tablet(s) Oral e very night at bedtime as needed for sleep 02/09/2019 03/10/2019 Inactive Generic For:LAVELLE AX 1MG 10/11/2016 11:15:13 AM Xanax 1 mg tablet RxNorm: 940266 1-2 Tablet(s) Oral e very night at bedtime as needed for sleep 01/22/2019 02/08/2019 Inactive Generic For:LAVELLE AX 1MG 10/11/2016 11:15:13 AM Celexa 40 mg tablet RxNorm: 602577 1 Tablet(s) Oral QD 01/17/2019 Active - First Attempt Ref: [id number] Xanax 1 mg tablet RxNorm: 266574 1 Tablet(s) Oral every night a t bedtime 01/08/2019 01/21/2019 Inactive levothyroxine 88 mcg tablet RxNorm: 688972 TAKE 1 TABLET BY NINA TH DAILY 12/19/2018 06/16/2019 Inactive - First Attempt Ref: [id number] Xanax 1 mg tablet RxNorm: 813239 1 Tablet(s) Oral every night a t bedtime 12/06/2018 01/05/2019 Inactive Singulair 10 mg tablet RxNorm: 028770 1 Tablet(s) Oral every ni ght at bedtime 11/23/2018 11/17/2019 Active - First Attempt Ref: [id number] Celexa 40 mg tablet RxNorm: 854088 1 Tablet(s) Oral 11/23/20182018 Inactive - First Attempt Ref: [id number] cyclobenzaprine 10 mg tablet RxNorm: 538199 1 Tablet(s) Oral three times a day as needed for muscle spasm 11/23/2018 02/11/2019 Inactive Xanax 1 mg tablet RxNorm: 973855 1 Tablet(s) PO QHS 11/06/20182018 Inactive Xanax 1 mg tablet RxNorm: 386244 1 Tablet(s) PO QHS 09/26/20182018 Inactive Singulair 10 mg tablet RxNorm: 069834 TAKE 1 TABLET BY MOUTH EVERY NIGHT AT BEDTIME 08/16/2018 11/22/2018 Inactive - First Attempt Ref: [id number] Xanax 1 mg tablet RxNorm: 474432 1 Tablet(s) PO QHS 08/01/20182018 Inactive levothyroxine 88 mcg tablet RxNorm: 530724 TAKE 1 TABLET BY NINA TH DAILY 07/31/2018 12/18/2018 Inactive - First Attempt Ref: [id number] Celexa 40 mg tablet RxNorm: 997608 TAKE 1 TABLET BY MOUTH DAILY 04/201811/22/2018 Inactive - First Attempt Ref: [id number] 54 bupropion HCl SR 100 mg tablet,12 hr sustained-release RxNor m: 375251 1 Tablet(s) PO BID 07/12/2018 07/06/2019 Inactive - Ref: [id number] 7 Claritin-D 24 Hour 10 mg-240 mg tablet,extended release RxNo rm: 0807483 1 Tablet(s) PO QD 06/29/2018 2018 Inactive Claritin-D 24 Hour 10 mg-240 mg tablet,extended release RxNo rm: 7219603 1 Tablet(s) PO QD 06/29/2018 2018 Inactive Xanax 1 mg tablet RxNorm: 068449 1-2 Tablet(s) PO QHS as needed for sleep 05/26/2018 06/23/2018 Inactive Generic For:XANAX 1M G 10/11/2016 11:15:13 AM Xanax 1 mg tablet RxNorm: 717206 1-2 Tablet(s) PO QHS as needed for sleep 03/28/2018 05/25/2018 Inactive Generic For:XANAX 1M G 10/11/2016 11:15:13 AM Macrobid 100 mg capsule RxNorm: 939109 1 Capsule(s) PO BID 03/27/19 19 03/31/2018 Inactive gabapentin 300 mg capsule RxNorm: 020470 1 Capsule(s) PO QHS 201703/26/2018 Inactive Claritin-D 24 Hour 10 mg-240 mg tablet,extended release RxNo rm: 0456026 1 Tablet(s) PO QD 01/26/2018 02/24/2018 Inactive gabapentin 100 mg capsule RxNorm: 036952 1 Capsule(s) P O QHS for 1 week then 2 po q HS for 2 weeks then 3 po q HS 01/24/2018 03/26/2018 Inactive Xanax 1 mg tablet RxNorm: 079113 1-2 Tablet(s) PO QHS as needed for sleep 01/24/2018 03/24/2018 Inactive Generic For:XANAX 1M G 10/11/2016 11:15:13 AM prednisone 20 mg tablet RxNorm: 340187 1 Tablet(s) PO T ID for 3 days then 1 po BID for 3 days then one daily for 3 days 12/29/2017 03/26/2018 Inactiv e prednisone 20 mg tablet RxNorm: 119061 3 Tablet(s) PO T ID for 3 days then 1 po BID for 3 days then one daily for 3 days 12/29/2017 12/29/2017 Inactiv e Macrobid 100 mg capsule RxNorm: 740236 1 Capsule(s) PO BID 12/30/19 18 01/02/2018 Inactive Xanax 1 mg tablet RxNorm: 656426 1-2 Tablet(s) PO QHS as needed for sleep 12/28/2017 01/23/2018 Inactive Generic For:XANAX 1M G 10/11/2016 11:15:13 AM Medrol (Walter) 4 mg tablets in a dose pack RxNorm: 090837 Tablet(s) PO take as directed 12/01/2017 03/26/2018 Inactive Keflex 750 mg capsule RxNorm: 177982 1 Capsule(s) PO BID 12/01/2017 1 Inactive clindamycin HCl 300 mg capsule RxNorm: 622748 2 Capsule(s) PO TID 1 12/08/2017 Inactive Xanax 1 mg tablet RxNorm: 218914 1-2 Tablet(s) PO QHS as needed for sleep 11/28/2017 12/27/2017 Inactive Generic For:XANAX 1M G 10/11/2016 11:15:13 AM mupirocin 2 % topical ointment RxNorm: 166032 1 Application OTIC BI D 11/28/2017 08/09/2018 Inactive Xanax 1 mg tablet RxNorm: 600288 1-2 Tablet(s) PO QHS as needed for sleep 10/27/2017 11/25/2017 Inactive Generic For:XANAX 1M G 10/11/2016 11:15:13 AM Macrobid 100 mg capsule RxNorm: 558715 1 Capsule(s) PO BID 10/11/19 18 10/16/2017 Inactive Medrol (Walter) 4 mg tablets in a dose pack RxNorm: 410790 Tablet(s) PO take as directed 10/10/2017 11/16/2017 Inactive Xanax 1 mg tablet RxNorm: 544028 1-2 Tablet(s) PO QHS as needed for sleep 09/28/2017 10/26/2017 Inactive Generic For:XANAX 1M G 10/11/2016 11:15:13 AM Xanax 1 mg tablet RxNorm: 556773 1-2 Tablet(s) PO QHS as needed for sleep 08/30/2017 09/27/2017 Inactive Generic For:XANAX 1M G 10/11/2016 11:15:13 AM Xanax 1 mg tablet RxNorm: 192686 1-2 Tablet(s) PO QHS as needed for sleep 08/30/2017 08/29/2017 Inactive Generic For:XANAX 1M G 10/11/2016 11:15:13 AM Xanax 1 mg tablet RxNorm: 421539 1-2 Tablet(s) PO QHS as needed for sleep 08/01/2017 08/29/2017 Inactive Generic For:XANAX 1M G 10/11/2016 11:15:13 AM Xanax 1 mg tablet RxNorm: 514717 1-2 Tablet(s) PO QHS as needed for sleep 06/29/2017 2017 Inactive Generic For:XANAX 1M G 10/11/2016 11:15:13 AM Claritin-D 24 Hour 10 mg-240 mg tablet,extended release RxNo rm: 5813883 1 Tablet(s) PO QD 06/29/2017 2017 Inactive levothyroxine 88 mcg tablet RxNorm: 601582 1 Tablet(s) PO QD 201709/10/2017 Inactive Xanax 1 mg tablet RxNorm: 827262 1-2 Tablet(s) PO QHS as needed for sleep 05/26/2017 06/28/2017 Inactive Generic For:XANAX 1M G 10/11/2016 11:15:13 AM Claritin-D 24 Hour 10 mg-240 mg tablet,extended release RxNo rm: 0512771 1 Tablet(s) PO QD 05/26/2017 06/24/2017 Inactive bupropion HCl SR 100 mg tablet,12 hr sustained-release RxNor m: 777118 Tablet(s) Take 1 tablet by mouth two times daily 04/06/2017 12/31/2017 Inactive - Ref: [id number] Xanax 1 mg tablet RxNorm: 305943 1-2 Tablet(s) PO QHS as needed for sleep 03/24/2017 05/22/2017 Inactive Generic For:XANAX 1M G 10/11/2016 11:15:13 AM Medrol (Walter) 4 mg tablets in a dose pack RxNorm: 719248 Tablet(s) P O 02/16/2017 03/27/2017 Inactive Xanax 1 mg tablet RxNorm: 503932 Tablet(s) TAKE ONE T O TWO TABLETS BY MOUTH AT BEDTIME NEEDED 02/16/2017 03/17/2017 Inactive Generic For:XA NAX 1MG 10/11/2016 11:15:13 AM Claritin-D 24 Hour 10 mg-240 mg tablet,extended release RxNo rm: 3055350 1 Tablet(s) PO QD 02/16/2017 04/16/2017 Inactive cefdinir 300 mg capsule RxNorm: 045375 2 Capsule(s) PO QD 02/16/2017 02/25/2017 Inactive Celexa 40 mg tablet RxNorm: 466836 Tablet(s) Take 1 tablet by m outh daily 12/23/2016 09/18/2017 Inactive - Ref: [id number] Xanax 1 mg tablet RxNorm: 394049 Tablet(s) TAKE ONE T O TWO TABLETS BY MOUTH AT BEDTIME NEEDED 12/16/2016 01/14/2017 Inactive Generic For:XA NAX 1MG 10/11/2016 11:15:13 AM Xanax 1 mg tablet RxNorm: 957775 Tablet(s) TAKE ONE T O TWO TABLETS BY MOUTH AT BEDTIME NEEDED 11/18/2016 12/15/2016 Inactive Generic For:XA NAX 1MG 10/11/2016 11:15:13 AM Xanax 1 mg tablet RxNorm: 363016 TAKE ONE TO TWO TABL ETS BY MOUTH AT BEDTIME NEEDED 10/11/2016 11/17/2016 Inactive Generic For:XANA X 1MG 10/11/2016 11:15:13 AM Mobic 15 mg tablet RxNorm: 786285 1 Tablet(s) PO QD 09/06/20162016 Inactive Claritin-D 24 Hour 10 mg-240 mg tablet,extended release RxNo rm: 4736789 1 Tablet(s) PO QD 09/02/2016 11/30/2016 Inactive prednisone 20 mg tablet RxNorm: 769301 1 Tablet(s) PO T ID for 3 days then 1 po BID for 3 days then one daily for 3 days 08/16/2016 03/27/2017 Inactiv e cefdinir 300 mg capsule RxNorm: 598037 2 Capsule(s) PO QD 08/16/2016 09/05/2016 Inactive Xanax 1 mg tablet RxNorm: 047325 TAKE ONE TO TWO TABL ETS BY MOUTH AT BEDTIME NEEDED 08/05/2016 10/11/2016 Inactive Generic For:XANA X 1MG 08/05/2016 2:27:03 PM08/04/2016 4:15:22 PM Singulair 10 mg tablet RxNorm: 592886 1 Tablet(s) PO QHS 07/06/2016 0 09/03/2016 Inactive prednisone 20 mg tablet RxNorm: 219209 1 Tablet(s) PO T ID for 3 days then 1 po BID for 3 days then one daily for 3 days 06/15/2016 07/05/2016 Inactiv e Singulair 10 mg tablet RxNorm: 943028 1 Tablet(s) PO QHS 06/15/2016 0 07/05/2016 Inactive cefdinir 300 mg capsule RxNorm: 264003 2 Capsule(s) PO QD 06/15/2016 07/05/2016 Inactive Xanax 1 mg tablet RxNorm: 995368 1-2 Tablet(s) PO QHS 05/21/201610/2016 Inactive Claritin-D 24 Hour 10 mg-240 mg tablet,extended release RxNo rm: 1311704 1 Tablet(s) PO QD 04/09/2016 07/07/2016 Inactive Xanax 1 mg tablet RxNorm: 513109 1-2 Tablet(s) PO QHS 03/23/201604/29 Inactive levothyroxine 88 mcg tablet RxNorm: 339798 1 Tablet(s) PO QD 201606/13/2017 Inactive bupropion HCl SR 100 mg tablet,sustained-release RxNorm: 993 503 Take 1 tablet by mouth two times daily 03/15/2016 12/09/2016 Inactive - Ref: 20 [id number] Celexa 40 mg tablet RxNorm: 540881 Take 1 tablet by mouth daily 12/23/2016 Inactive - Ref: [id number] Xanax 1 mg tablet RxNorm: 627648 1-2 Tablet(s) PO QHS 02/17/201603/01 Inactive levothyroxine 88 mcg tablet RxNorm: 627349 1 Tablet(s) PO QD 201502/22/2016 Inactive Xanax 1 mg tablet RxNorm: 240802 1-2 Tablet(s) PO QHS 11/25/201511/29 Inactive levothyroxine 88 mcg tablet RxNorm: 502953 1 Tablet(s) PO QD 201511/24/2015 Inactive temazepam 30 mg capsule RxNorm: 592670 1 Capsule(s) PO QHS 11/13/19 16 11/24/2015 Inactive Xanax 1 mg tablet RxNorm: 249474 1-2 Tablet(s) PO QHS 09/15/201510/29 Inactive Celexa 40 mg tablet RxNorm: 291387 1 Tablet(s) PO QD 1 Tablet(s ) PO QD 09/10/2015 09/16/2015 Inactive bupropion HCl SR 100 mg tablet,sustained-release RxNorm: 993 503 1 Tablet(s) PO BID 09/10/2015 09/23/2015 Inactive Xanax 1 mg tablet RxNorm: 319756 1-2 Tablet(s) PO QHS 09/10/201508/28 Inactive Xanax 1 mg tablet RxNorm: 189292 1-2 Tablet(s) PO QHS 08/11/201508/28 Inactive cyclobenzaprine 10 mg tablet RxNorm: 635996 1 Tablet(s) PO TID prn spasm 07/09/2015 11/23/2018 Inactive Celexa 40 mg tablet RxNorm: 008644 1 Tablet(s) PO QD 06/06/201508/03 Inactive Xanax 1 mg tablet RxNorm: 065899 1-2 Tablet(s) PO QHS 06/04/201505/2015 Inactive levothyroxine 88 mcg tablet RxNorm: 005514 1 Tablet(s) PO QD 201511/23/2015 Inactive Ceftin 500 mg tablet RxNorm: 530476 1 Tablet(s) PO BID 05/05/2015 Inactive Ceftin 500 mg tablet RxNorm: 458868 1 Tablet(s) PO BID 05/05/201507/2015 Inactive meloxicam 15 mg tablet RxNorm: 226947 1 Tablet(s) PO QD 04/16/2015 Inactive meloxicam 15 mg tablet RxNorm: 175516 1 Tablet(s) PO QD 04/16/2015 Inactive diclofenac sodium 75 mg tablet,delayed release RxNorm: 22615 6 1 Tablet(s) PO BID 04/04/2015 04/15/2015 Inactive diclofenac sodium 75 mg tablet,delayed release RxNorm: 31003 6 1 Tablet(s) PO BID 04/04/2015 04/03/2015 Inactive Tivorbex 40 mg capsule RxNorm: 4105817 1 Capsule(s) PO TID 03/24/19 16 04/02/2015 Inactive bupropion HCl SR 100 mg tablet,sustained-release RxNorm: 993 503 1 Tablet(s) PO BID 03/11/2015 09/06/2015 Inactive cyclobenzaprine 10 mg tablet RxNorm: 823190 1 Tablet(s) PO TID prn spasm 03/11/2015 07/08/2015 Inactive levothyroxine 88 mcg tablet RxNorm: 870456 1 Tablet(s) PO QD 201405/27/2015 Inactive Claritin-D 24 Hour 10 mg-240 mg tablet,extended release RxNo rm: 2597849 1 Tablet(s) PO QD 02/27/2015 05/27/2015 Inactive cefuroxime axetil 500 mg tablet RxNorm: 039726 1 Tablet(s) PO BID 1 03/12/2015 Inactive Celexa 40 mg tablet RxNorm: 254497 1 Tablet(s) PO QD 02/05/201504/05 Inactive levothyroxine 75 mcg tablet RxNorm: 755685 1 Tablet(s) PO QD 201402/26/2015 Inactive Celexa 40 mg tablet RxNorm: 512278 1 Tablet(s) PO QD 10/09/201402/04 Inactive Activella 1 mg-0.5 mg tablet RxNorm: 4510912 1 Tablet(s) PO QD 08/2802/26/2015 Inactive bupropion HCl SR 100 mg tablet,sustained-release RxNorm: 993 503 1 Tablet(s) PO BID 09/12/2014 03/10/2015 Inactive levothyroxine 75 mcg tablet RxNorm: 464431 1 Tablet(s) PO QD 201412/09/2014 Inactive levothyroxine 75 mcg tablet RxNorm: 426629 1 Tablet(s) PO QD 201409/11/2014 Inactive Celexa 40 mg tablet RxNorm: 559769 1 Tablet(s) PO QD 08/12/201410/08 Inactive Xanax 1 mg tablet RxNorm: 227665 1-2 Tablet(s) PO QHS 08/12/201409/28 Inactive Claritin-D 24 Hour 10 mg-240 mg tablet,extended release RxNo rm: 7277186 1 Tablet(s) PO QD 06/13/2014 09/10/2014 Inactive cyclobenzaprine 10 mg tablet RxNorm: 747132 1 Tablet(s) PO TID prn spasm 06/12/2014 02/26/2015 Inactive Xanax 1 mg tablet RxNorm: 168688 1-2 Tablet(s) PO QHS 05/09/201406/28 Inactive levothyroxine 75 mcg tablet RxNorm: 537646 1 Tablet(s) PO QD 201407/08/2014 Inactive cephalexin 500 mg capsule RxNorm: 058563 1 Capsule(s) PO QOD 201402/26/2015 Inactive simvastatin 10 mg tablet RxNorm: 131250 1 Tablet(s) PO QHS 04/10/19 15 06/12/2014 Inactive Xanax 1 mg tablet RxNorm: 076299 1-2 Tablet(s) PO QHS 04/10/201404/28 Inactive levothyroxine 75 mcg tablet RxNorm: 763987 1 Tablet(s) PO QD 201404/09/2014 Inactive levothyroxine 75 mcg capsule RxNorm: 026170 1 Capsule(s) PO QD 03/3104/10/2014 Inactive Activella 1 mg-0.5 mg tablet RxNorm: 6592123 1 Tablet(s) PO QD 03/0109/11/2014 Inactive bupropion HCl SR 100 mg tablet,sustained-release RxNorm: 993 503 1 Tablet(s) PO BID 03/04/2014 08/30/2014 Inactive Activella 1 mg-0.5 mg tablet RxNorm: 2384989 1 Tablet(s) PO QD 01/2803/18/2014 Inactive levothyroxine 75 mcg capsule RxNorm: 147872 1 Capsule(s) PO QD 12/2904/08/2014 Inactive simvastatin 10 mg tablet RxNorm: 707494 1 Tablet(s) PO QHS 01/10/20 14 04/08/2014 Inactive cyclobenzaprine 10 mg tablet RxNorm: 163692 1 Tablet(s) PO TID prn spasm 01/09/2014 04/08/2014 Inactive Cipro 500 mg tablet RxNorm: 994495 1 Tablet(s) PO BID 12/25/201304/2013 Inactive Cipro 500 mg tablet RxNorm: 687190 1 Tablet(s) PO BID 12/25/201311/29 Inactive bupropion HCl SR 100 mg tablet,sustained-release RxNorm: 993 503 1 Tablet(s) PO QAM 12/11/2013 03/03/2014 Inactive cephalexin 500 mg capsule RxNorm: 448808 1 Capsule(s) PO QOD 201304/09/2014 Inactive Xanax 1 mg tablet RxNorm: 622531 1-2 Tablet(s) PO QHS 10/15/201310/29 Inactive simvastatin 10 mg tablet RxNorm: 672659 1 Tablet(s) PO QHS 10/11/19 14 01/07/2014 Inactive Celexa 40 mg tablet RxNorm: 397133 Tablet(s) PO TAKE 1 TABLET BY MOUTH ONCE DAILY. 09/18/2013 09/17/2013 Inactive Xanax 1 mg tablet RxNorm: 616261 1-2 Tablet(s) PO QHS 08/13/201308/28 Inactive simvastatin 10 mg tablet RxNorm: 826335 1 Tablet(s) PO QHS 07/12/19 14 10/08/2013 Inactive bupropion HCl SR 100 mg tablet,sustained-release RxNorm: 993 503 1 Tablet(s) PO QAM 05/22/2013 11/17/2013 Inactive Pamelor 10 mg capsule RxNorm: 025823 1 Capsule(s) PO QHS for PLATA /sleep 05/22/2013 06/04/2013 Inactive Xanax 1 mg tablet RxNorm: 199019 1-2 Tablet(s) PO QHS 05/15/201305/29 Inactive Pamelor 10 mg capsule RxNorm: 971842 1 Capsule(s) PO QHS for PLATA /sleep 05/15/2013 05/21/2013 Inactive Xanax 1 mg tablet RxNorm: 924321 1 Tablet(s) PO QHS 04/27/20132013 Inactive Zovirax 800 mg tablet RxNorm: 887817 1 Tablet(s) PO TID 04/05/2013 Inactive Xanax 1 mg tablet RxNorm: 165437 1 Tablet(s) PO QHS 04/03/2013 No Sto p Date Active bupropion HCl SR 100 mg tablet,sustained-release RxNorm: 993 503 1 Tablet(s) PO QAM 03/26/2013 05/21/2013 Inactive bupropion HCl SR 100 mg tablet,sustained-release RxNorm: 993 503 1 Tablet(s) PO QAM 03/06/2013 03/25/2013 Inactive Pamelor 10 mg capsule RxNorm: 043215 1 Capsule(s) PO QHS for PLATA /sleep 02/14/2013 05/14/2013 Inactive levothyroxine 75 mcg capsule RxNorm: 870088 1 Capsule(s) PO QD 12/2901/08/2014 Inactive simvastatin 10 mg tablet RxNorm: 592046 1 Tablet(s) PO QHS TAKE 1 TABLET BY MOUTH ONCE DAILY AT BEDTIME. 01/15/2013 07/10/2013 Inactive cyclobenzaprine 10 mg tablet RxNorm: 704916 1 Tablet(s) PO TID prn spasm 12/25/2012 06/22/2013 Inactive Pamelor 10 mg capsule RxNorm: 004108 1 Capsule(s) PO QHS for PLATA /sleep 11/29/2012 02/14/2013 Inactive Celexa 40 mg tablet RxNorm: 477778 Tablet(s) PO TAKE 1 TABLET BY MOUTH ONCE DAILY. 10/11/2012 09/17/2013 Inactive simvastatin 10 mg tablet RxNorm: 727816 Tablet(s) PO TA KE 1 TABLET BY MOUTH ONCE DAILY AT BEDTIME. 10/11/2012 01/14/2013 Inactive simvastatin 10 mg tablet RxNorm: 780496 1 Tablet(s) PO QD 07/11/2012 10/08/2012 Inactive simvastatin 10 mg tablet RxNorm: 546263 1 Tablet(s) PO QD 04/14/2012 07/11/2012 Inactive simvastatin 10 mg tablet RxNorm: 450902 1 Tablet(s) PO QD 04/14/2012 04/13/2012 Inactive Celexa 40 mg tablet RxNorm: 834986 1 Tablet(s) PO QD 03/15/201209/10 Inactive cyclobenzaprine 10 mg tablet RxNorm: 791787 1 Tablet(s) PO TID prn spasm 02/02/2012 02/01/2012 Inactive cyclobenzaprine 10 mg tablet RxNorm: 631127 1 Tablet(s) PO TID prn spasm 02/02/2012 07/30/2012 Inactive Diflucan 100 mg Tab RxNorm: 254155 1 Tablet(s) PO QD 08/17/201108/22 Inactive Cipro 250 mg Tab RxNorm: 322293 1 Tablet(s) PO QD 08/17/2011 10/15/19 12 Inactive Levaquin 500 mg Tab RxNorm: 983163 1 Tablet(s) PO QD 08/17/201108/22 Inactive Pyridium 200 mg Tab RxNorm: 0247170 1 Tablet(s) PO TID 10/14/2010 Inactive may turn urine orange-red color. Cipro 500 mg Tab RxNorm: 279631 1 Tablet(s) PO BID 10/14/2010 011 Inactive levothyroxine 75 mcg capsule RxNorm: 713777 1 Capsule(s) PO QD 12/3001/14/2011 Inactive Vitamin D3 5,000 unit tablet RxNorm: 684550 1 Tablet(s) PO QD No Star t Date Active Nasacort 55 mcg nasal spray aerosol RxNorm: 0561784 2 Sp ray NASAL each nostril QHS No Start Date Active cyclobenzaprine 10 mg tablet RxNorm: 739129 1 Tablet(s) PO TID as needed No Start Date 11/22/2018 Inactive Vitamin D2 1,000 unit capsule RxNorm: 890670 3 Capsule(s) PO QD No Start Date 11/16/2017 Inactive diclofenac sodium 75 mg tablet,delayed release RxNorm: 37143 6 1 Tablet(s) PO BID No Start Date 03/16/2016 Inactive cephalexin 500 mg capsule RxNorm: 105811 1 Capsule(s) PO QOD No Sta rt Date 12/04/2013 Inactive cyclobenzaprine 10 mg tablet RxNorm: 558932 1 Tablet(s) PO QHS No S tart Date 02/01/2012 Inactive loratadine 10 mg tablet RxNorm: 241419 1 Tablet(s) PO QHS No Start Date 05/14/2019 Inactive hydrocodone 5 mg-acetaminophen 500 mg tablet RxNorm: 092812 1 -2 Tablet(s) PO Q6H as needed No Start Date 08/09/2018 Inactive etodolac 400 mg tablet RxNorm: 566164 1 Tablet(s) PO TID No Start D ate 09/17/2018 Inactive Xanax 1 mg tablet RxNorm: 530934 1 Tablet(s) PO QHS No Start Date 04/2013 Inactive Vitamin D3 1,000 unit capsule RxNorm: 147660 1 Capsule(s) PO QD No Start Date 06/12/2014 Inactive estradiol 2 mg tablet RxNorm: 753965 1/2 Tablet(s) PO QD No Start D ate 03/05/2013 Inactive Celexa 40 mg tablet RxNorm: 364508 1 Tablet(s) PO QD No Start Date Inactive Activella 1 mg-0.5 mg tablet RxNorm: 8685536 1 Tablet(s) PO QD No S tart Date 07/10/2012 Inactive medroxyprogesterone 5 mg tablet RxNorm: 9376839 1/2 Tablet(s) PO QD No Start Date 03/05/2013 Inactive levothyroxine 88 mcg tablet RxNorm: 190094 1 Tablet(s) PO QD No Sta rt Date 02/26/2015 Inactive Keflex 500 mg capsule RxNorm: 856686 1 Capsule(s) PO PRN No Start D ate 08/16/2011 Inactive Activella 1 mg-0.5 mg tablet RxNorm: 4808081 1 Tablet(s) PO QHS No Start Date 03/27/2017 Inactive Activella 1 mg-0.5 mg tablet RxNorm: 3154537 1 Tablet(s) PO QD No S tart Date 02/06/2014 Inactive Flexeril 10 mg Tab RxNorm: 818104 1 Tablet(s) PO TID No Start Date Inactive prn spasm simvastatin 10 mg tablet RxNorm: 153050 1 Tablet(s) PO QD No Start Date 04/13/2012 Inactive Medication Administered No Medication Administered data Immunizations Vaccine Codes Date Status Influenza CVX: 135 01/16/2019 Complete Pneumococcal CVX: 133 01/16/2019 Complete Results No Results data Procedures Procedure Codes Date URINE CULTURE/ COLONY COUNT CPT-4: 60506 07/26/2019 URINALYSIS NONAUTO W/O SCOPE CPT-4: 47904 07/17/2019 URINE CULTURE/ COLONY COUNT CPT-4: 38697 07/17/2019 DEXAMETHASONE SODIUM PHOS CPT-4: J1100 05/14/2019 THER/PROPH/DIAG INJ SC/IM CPT-4: 57307 05/14/2019 TRIAMCINOLONE ACET INJ NOS CPT-4: J3301 05/14/2019 FLU VACC PRSV FREE INC ANTIG 65 AND OLDER CPT-4: 54602 01/16/2019 FLU VACC PRSV FREE INC ANTIG 65 AND OLDER CPT-4: 09417 01/16/2019 PNEUMOCOCCAL VACC 13 NARESH IM CPT-4: 27793 01/16/2019 SKIN FUNGI CULTURE CPT-4: 68807 01/16/2019 IMMUNIZATION ADMIN CPT-4: 49277 01/16/2019 IMMUNIZATION ADMIN EACH ADD CPT-4: 53720 01/16/2019 THER/PROPH/DIAG INJ SC/IM CPT-4: 46783 01/17/2018 KETOROLAC TROMETHAMINE INJ CPT-4: J1885 01/17/2018 THER/PROPH/DIAG INJ SC/IM CPT-4: 83323 01/17/2018 PROMETHAZINE HCL INJECTION CPT-4: J2550 01/17/2018 URINALYSIS NONAUTO W/O SCOPE CPT-4: 61307 12/29/2017 URINE CULTURE/ COLONY COUNT CPT-4: 66858 12/29/2017 THER/PROPH/DIAG INJ SC/IM CPT-4: 90356 11/30/2017 TRIAMCINOLONE ACET INJ NOS CPT-4: J3301 11/30/2017 DEXAMETHASONE SODIUM PHOS CPT-4: J1100 11/30/2017 CEFTRIAXONE SODIUM INJECTION CPT-4: J0696 11/29/2017 THER/PROPH/DIAG INJ SC/IM CPT-4: 89300 11/29/2017 CEFTRIAXONE SODIUM INJECTION CPT-4: J0696 11/28/2017 THER/PROPH/DIAG INJ SC/IM CPT-4: 42495 11/28/2017 URINALYSIS NONAUTO W/O SCOPE CPT-4: 30860 10/10/2017 THER/PROPH/DIAG INJ SC/IM CPT-4: 13760 10/10/2017 TRIAMCINOLONE ACET INJ NOS CPT-4: J3301 10/10/2017 DEXAMETHASONE SODIUM PHOS CPT-4: J1100 10/10/2017 CEFTRIAXONE SODIUM INJECTION CPT-4: J0696 10/10/2017 THER/PROPH/DIAG INJ SC/IM CPT-4: 88502 10/10/2017 URINE CULTURE/ COLONY COUNT CPT-4: 96013 10/10/2017 THER/PROPH/DIAG INJ SC/IM CPT-4: 52625 11/02/2016 KETOROLAC TROMETHAMINE INJ CPT-4: J1885 11/02/2016 THER/PROPH/DIAG INJ SC/IM CPT-4: 06445 06/15/2016 TRIAMCINOLONE ACET INJ NOS CPT-4: J3301 06/15/2016 DEXAMETHASONE SODIUM PHOS CPT-4: J1100 06/15/2016 THER/PROPH/DIAG INJ SC/IM CPT-4: 62120 04/09/2016 KETOROLAC TROMETHAMINE INJ CPT-4: J1885 04/09/2016 PROMETHAZINE HCL INJECTION CPT-4: J2550 04/09/2016 EXC TR-EXT B9+ERASMO 0.5 CM< CPT-4: 65742 06/12/2015 URINALYSIS NONAUTO W/O SCOPE CPT-4: 11047 05/05/2015 URINE CULTURE/ COLONY COUNT CPT-4: 06852 05/05/2015 URINALYSIS NONAUTO W/O SCOPE CPT-4: 69310 03/24/2015 URINALYSIS NONAUTO W/O SCOPE CPT-4: 24419 02/27/2015 URINE CULTURE/ COLONY COUNT CPT-4: 03152 02/27/2015 THER/PROPH/DIAG INJ SC/IM CPT-4: 30539 04/18/2014 KETOROLAC TROMETHAMINE INJ CPT-4: J1885 04/18/2014 THER/PROPH/DIAG INJ SC/IM CPT-4: 83175 06/05/2013 TRIAMCINOLONE ACET INJ NOS CPT-4: J3301 06/05/2013 THER/PROPH/DIAG INJ SC/IM CPT-4: 64399 11/29/2012 KETOROLAC [facility]OM[facility]INE INJ CPT-4: J1885 11/29/2012 URINALYSIS NONAUTO W/O SCOPE CPT-4: 07028 07/11/2012 URINE CULTURE/ COLONY COUNT CPT-4: 12300 07/11/2012 OCCULT BLOOD FECES CPT-4: 60676 02/17/2012 URINALYSIS NONAUTO W/O SCOPE CPT-4: 75734 08/27/2011 URINE CULTURE/ COLONY COUNT CPT-4: 11118 08/27/2011 URINALYSIS NONAUTO W/O SCOPE CPT-4: 72733 08/17/2011 URINE CULTURE/ COLONY COUNT CPT-4: 56933 08/17/2011 URINALYSIS NONAUTO W/O SCOPE CPT-4: 53806 12/28/2010 URINE CULTURE/ COLONY COUNT CPT-4: 09086 12/28/2010 URINALYSIS NONAUTO W/O SCOPE CPT-4: 60330 11/09/2010 URINE CULTURE/ COLONY COUNT CPT-4: 12414 11/09/2010 URINALYSIS NONAUTO W/O SCOPE CPT-4: 01671 10/29/2010 URINE CULTURE/ COLONY COUNT CPT-4: 54752 10/29/2010 URINE CULTURE/ COLONY COUNT CPT-4: 05642 10/14/2010 URINALYSIS NONAUTO W/O SCOPE CPT-4: 73912 10/14/2010 Vital Signs Date Vital 07/17/2019 Blood [...] 1: 122/74 Code: 8480-6 BMI: 22.0 Code: 10326-5 Heart Rate 1: 72 bpm Height: 5'3" [...] 1: 126/72 Code: 8480-6 BMI: 22.7 Code: 97065-6 Heart Rate 1: 72 bpm Height: 5'3" [...] 1: 112/70 Code: 8480-6 BMI: 22.0 Code: 22066-2 Heart Rate 1: 80 bpm Height: 5'3" [...] 1: 122/64 Code: 8480-6 BMI: 21.4 Code: 44104-2 Heart Rate 1: 88 bpm Height: 5'3" Respiratory Rate: 22 bpm SpO2: 96% Tempera ture: 36.8 (C) / 98.2 (F) Weight: 121 lbs 06/22/2017 Blood Pressure 1: 124/78 Code: 8480-6 BMI: 21.6 Code: 40058-9 Heart Rate 1: 76 bpm Height: 5'3" Respiratory Rate: 20 bpm Temperature: 36 .8 (C) / 98.3 (F) Weight: 122 lbs 03/28/2017 Blood Pressure 1: 92/60 Code: 8480-6 BMI: 20.4 C ode: 75749-5 Heart Rate 1: 72 bpm Height: 5'3" Respiratory Rate: 20 bpm Temperature: 36 .9 (C) / 98.4 (F) Weight: 115 lbs 02/16/2017 Blood Pressure 1: 106/70 Code: 8480-6 BMI: 21.3 Code: 11747-9 Heart Rate 1: 82 bpm Height: 5'3" Respiratory Rate: 22 bpm SpO2: 97% Tempera ture: 36.1 (C) / 97.0 (F) Weight: 120 lbs 09/06/2016 Blood Pressure 1: 118/64 Code: 8480-6 BMI: 22.7 Code: 97820-5 Heart Rate 1: 78 bpm Height: 5'3" Respiratory Rate: 20 bpm SpO2: 98% Tempera ture: 36.2 (C) / 97.2 (F) Weight: 128 lbs 08/16/2016 Blood Pressure 1: 118/78 Code: 8480-6 BMI: 22.1 Code: 10991-1 Heart Rate 1: 78 bpm Height: 5'3" Respiratory Rate: 20 bpm SpO2: 97% Tempera ture: 36.2 (C) / 97.1 (F) Weight: 125 lbs 07/19/2016 Blood Pressure 1: 116/68 Code: 8480-6 BMI: 22.5 Code: 08467-6 Heart Rate 1: 76 bpm Height: 5'3" Respiratory Rate: 20 bpm Temperature: 36 .8 (C) / 98.2 (F) Weight: 127 lbs 07/06/2016 Blood Pressure 1: 106/70 Code: 8480-6 BMI: 22.5 Code: 19354-3 Heart Rate 1: 72 bpm Height: 5'3" Respiratory Rate: 20 bpm SpO2: 97% Tempera ture: 36.8 (C) / 98.2 (F) Weight: 127 lbs 06/15/2016 Blood Pressure 1: 136/76 Code: 8480-6 BMI: 22.9 Code: 08436-7 Heart Rate 1: 74 bpm Height: 5'3" Respiratory Rate: 18 bpm SpO2: 98% Tempera ture: 36.4 (C) / 97.6 (F) Weight: 129 lbs 04/09/2016 Blood Pressure 1: 124/78 Code: 8480-6 BMI: 23.0 Code: 54758-6 Heart Rate 1: 86 bpm Height: 5'3" Respiratory Rate: 20 bpm SpO2: 96% Tempera ture: 36.5 (C) / 97.7 (F) Weight: 130 lbs 03/17/2016 Blood Pressure 1: 116/74 Code: 8480-6 BMI: 23.4 Code: 96615-3 Heart Rate 1: 84 bpm Height: 5'3" Respiratory Rate: 20 bpm SpO2: 97% Tempera ture: 36.8 (C) / 98.3 (F) Weight: 132 lbs 11/13/2015 Blood Pressure 1: 124/78 Code: 8480-6 BMI: 23.4 Code: 73007-0 Heart Rate 1: 88 bpm Height: 5'3" Respiratory Rate: 24 bpm SpO2: 98% Tempera ture: 36.8 (C) / 98.2 (F) Weight: 132 lbs 06/12/2015 Blood Pressure 1: 126/78 Code: 8480-6 BMI: 23.6 Code: 35179-2 Heart Rate 1: 80 bpm Height: 5'3" Respiratory Rate: 20 bpm Temperature: 36 .9 (C) / 98.4 (F) Weight: 133 lbs 04/22/2015 Blood Pressure 1: 126/68 Code: 8480-6 BMI: 23.6 Code: 21359-8 Heart Rate 1: 80 bpm Height: 5'3" Respiratory Rate: 20 bpm Temperature: 36 .6 (C) / 97.9 (F) Weight: 133 lbs 03/24/2015 Blood Pressure 1: 116/66 Code: 8480-6 BMI: 22.9 Code: 39726-8 Heart Rate 1: 74 bpm Height: 5'3" Respiratory Rate: 20 bpm Temperature: 36 .4 (C) / 97.6 (F) Weight: 129 lbs 02/27/2015 Blood Pressure 1: 106/64 Code: 8480-6 BMI: 22.7 Code: 26432-9 Heart Rate 1: 74 bpm Height: 5'3" Respiratory Rate: 20 bpm Temperature: 36 .8 (C) / 98.2 (F) Weight: 128 lbs 06/13/2014 Blood Pressure 1: 104/66 Code: 8480-6 BMI: 22.7 Code: 14077-3 Heart Rate 1: 84 bpm Height: 5'3" Respiratory Rate: 20 bpm Temperature: 37 .0 (C) / 98.6 (F) Weight: 128 lbs 04/18/2014 Blood Pressure 1: 112/62 Code: 8480-6 BMI: 22.0 Code: 04890-8 Heart Rate 1: 82 bpm Height: 5'3" Respiratory Rate: 18 bpm Temperature: 36 .4 (C) / 97.6 (F) Weight: 124 lbs 12/05/2013 Blood Pressure 1: 106/70 Code: 8480-6 BMI: 23.7 Code: 58740-7 Heart Rate 1: 84 bpm Height: 5'3" [...] 1: 126/88 Code: 8480-6 BMI: 22.3 Code: 12790-7 Heart Rate 1: 96 bpm Height: 5'4" Respiratory Rate: 20 bpm Temperature: 37 .7 (C) / 99.9 (F) Weight: 130 lbs 11/29/2012 Blood Pressure 1: 122/76 Code: 8480-6 BMI: 23.0 Code: 89564-8 Heart Rate 1: 84 bpm Height: 5'4" Respiratory Rate: 20 bpm Temperature: 36 .9 (C) / 98.4 (F) Weight: 134 lbs 09/26/2012 Blood Pressure 1: 114/76 Code: 8480-6 BMI: 23.0 Code: 87217-7 Heart Rate 1: 84 bpm Height: 5'4" Respiratory Rate: 20 bpm Temperature: 37 .3 (C) / 99.1 (F) Weight: 134 lbs 07/11/2012 Blood Pressure 1: 126/78 Code: 8480-6 BMI: 23.7 Code: 59295-2 Heart Rate 1: 76 bpm Height: 5'4" Respiratory Rate: 20 bpm Temperature: 37 .1 (C) / 98.7 (F) Weight: 138 lbs 02/02/2012 Blood Pressure 1: 108/70 Code: 8480-6 BMI: 23.2 Code: 33554-7 Heart Rate 1: 88 bpm Height: 5'4" Respiratory Rate: 20 bpm Temperature: 36 .4 (C) / 97.6 (F) Weight: 135 lbs 08/17/2011 Blood Pressure 1: 108/70 Code: 8480-6 BMI: 23.2 Code: 61949-2 Heart Rate 1: 72 bpm Height: 5'4" Respiratory Rate: 20 bpm Temperature: 36 .8 (C) / 98.2 (F) Weight: 135 lbs 10/14/2010 Blood Pressure 1: 120/72 Code: 8480-6 BMI: 23.4 Code: 35934-6 Heart Rate 1: 78 bpm Height: 5'3" [...] sinus pain 06/15/2016 Review Cpap Card ronel baker headache 04/09/2016 Patient also request ing Peg [...] Diagnosis: Urinary tract infection[ICD10: N39.0] Alexandra CARROLL [facility] CPT-4: 21473 07/26/2019 ([id number]) OFFICE/OUTPATIENT VISIT EST Diagnosis: Urinary tract infection, site not specified[ICD10: N39.0] Diagnosis: Dysuria[ICD10: R30.0] Vandana CARROLL DO [facility] CPT-4: 60419 07/17/2019 ([id number]) OFFICE/OUTPATIENT VISIT EST Diagnosis: Allergic dermatitis[ICD10: L23.9] Alexandra CARROLL [facility] CPT-4: 51276 06/26/2019 ([id number]) OFFICE/OUTPATIENT VISIT EST Diagnosis: Contact dermatitis due to plant[ICD10: L25.5] Diagnosis: Cellulitis of left arm[ICD10: L03.114] Vandana CARROLL [facility] CPT-4: 38217 05/14/2019 ([id number]) OFFICE/OUTPATIENT VISIT EST Diagnosis: Ventral hernia[ICD10: K43.9] Diagnosis: Incisional hernia[ICD10: K43.2] Alexandra CARROLL DO [facility] CPT-4: 68413 04/10/2019 ([id number]) OFFICE/OUTPATIENT VISIT EST Diagnosis: Insomnia[ICD10: G47.00] Diagnosis: Thrombocytosis[ICD10: D47.3] Alexandra CARROLL [facility] CPT-4: 18304 02/14/2019 ([id number]) OFFICE/OUTPATIENT VISIT EST Diagnosis: Small bowel obstruction[ICD10: K56.609] Diagnosis: FLU VACCINE[ICD10: Z23] Diagnosis: PNEUMOCOCCAL VACCINE[ICD10: Z23] Diagnosis: Onychomycosis[ICD10: B35.1] Alexandra KUNZ [facility] CPT-4: 26948 01/16/2019 ([id number]) OFFICE/OUTPATIENT VISIT EST Diagnosis: Diarrhea, unspecified[ICD10: R19.7] Diagnosis: Radiculopathy, lumbosacral region[ICD10: M54.17] Alexandra CARROLL [facility] CPT-4: 71020 09/18/2018 OFFICE/OUTPATIENT VISIT EST Diagnosis: Other intervertebral disc degeneration, lumbar region[ICD10: M51.36] Diagnosis: Sacroiliitis, not elsewhere classified[ICD10: M46.1] Diagnosis: Obstructive sleep apnea (adult) (pediatric)[ICD10: G47.33] [facility]: 39896 08/10/2018 ([id number]) OFFICE/OUTPATIENT VISIT EST Diagnosis: Fracture of unspecified part of left clavicle, subsequent encounter for fracture with routine healing[ICD10: S42.002D] Diagnosis: Cervicalgia[ICD10: M54.2] Diagnosis: Radiculopathy, lumbosacral region[ICD10: M54.17] Alexandra CARROLL [facility] CPT-4: 33974 03/27/2018 ([id number]) OFFICE/OUTPATIENT VISIT EST Diagnosis: Fracture of unspecified part of left clavicle, subsequent encounter for fracture with routine healing[ICD10: S42.002D] Diagnosis: Other intervertebral disc degeneration, lumbar region[ICD10: M51.36] Diagnosis: Unspecified fracture of first thoracic vertebra, subsequent encounter for fracture with routine healing[ICD10: S22.019D] Diagnosis: Unspecified fracture of second thoracic vertebra, subsequent encounter for fracture with routine healing[ICD10: S22.029D] [facility]: 98161 02/23/2018 ([id number]) OFFICE/OUTPATIENT VISIT EST Diagnosis: Fracture of unspecified part of left clavicle, subsequent encounter for fracture with routine healing[ICD10: S42.002D] Diagnosis: Unspecified fracture of first thoracic vertebra, subsequent encounter for fracture with routine healing[ICD10: S22.019D] Diagnosis: Unspecified fracture of second thoracic vertebra, subsequent encounter for fracture with routine healing[ICD10: S22.029D] Alexandra CARROLL [facility] CPT-4: 03302 01/24/2018 ([id number]) OFFICE/OUTPATIENT VISIT EST Diagnosis: Migraine, unspecified, not intractable, without status migrainosus[ICD10: G43.909] Alexandra CARROLL [facility] CPT - 4: 43209 01/17/2018 ([id number]) OFFICE/OUTPATIENT VISIT EST Diagnosis: Hematuria, unspecified[ICD10: R31.9] Diagnosis: Other intervertebral disc degeneration, lumbar region[ICD10: M51.36] Diagnosis: Retention of urine, unspecified[ICD10: R33.9] Alexandra Danegina Crawford DANEGINA [facility] CPT-4: 01014 12/29/2017 OFFICE/OUTPATIENT VISIT EST Diagnosis: Fracture of [...] Diagnosis: Low back pain[ICD10: M54.5] Alexandra KUNZ [facility] CPT-4: 57585 12/06/2017 ([id number]) OFFICE/OUTPATIENT VISIT EST Diagnosis: Cellulitis of right upper limb[ICD10: L03.113] Diagnosis: Allergy status to other antibiotic agents status[ICD10: Z88.1] Vandana Patricksasha CARROLL [facility] CPT-4: 27251 12/01/2017 ([id number]) OFFICE/OUTPATIENT VISIT EST Diagnosis: Cellulitis of right upper limb[ICD10: L03.113] Diagnosis: Allergy status to other antibiotic agents status[ICD10: Z88.1] Vandana CARROLL DO [facility] CPT-4: 25334 11/30/2017 ([id number]) OFFICE/OUTPATIENT VISIT EST Diagnosis: Cellulitis of right upper limb[ICD10: L03.113] Vandana CARROLL DO [facility] CPT-4: 44119 11/29/2017 ([id number]) OFFICE/OUTPATIENT VISIT EST Diagnosis: Cellulitis of right upper limb[ICD10: L03.113] Vandana CARROLL DO [facility] CPT-4: 89843 11/28/2017 ([id number]) OFFICE/OUTPATIENT VISIT EST Diagnosis: Other intervertebral disc degeneration, lumbar region[ICD10: M51.36] Diagnosis: Other retention of urine[ICD10: R33.8] Diagnosis: Primary insomnia[ICD10: F51.01] Diagnosis: Other spondylosis, site unspecified[ICD10: M47.899] Alexandra CARROLL DO [facility] CPT-4: 35206 11/17/2017 ([id number]) OFFICE/OUTPATIENT VISIT EST Diagnosis: Radiculopathy, lumbosacral region[ICD10: M54.17] Diagnosis: Other retention of urine[ICD10: R33.8] Diagnosis: Urinary tract infection, site not specified[ICD10: N39.0] Vandana CARROLL DO [facility] CPT-4: 67712 10/10/2017 ([id number]) PREV VISIT EST AGE 40-64 Diagnosis: Encounter for general adult medical examination without abnormal findings[ICD10: Z00.00] Diagnosis: Other intervertebral disc degeneration, lumbar region[ICD10: M51.36] Diagnosis: Hypothyroidism, unspecified[ICD10: E03.9] Diagnosis: Mixed hyperlipidemia[ICD10: E78.2] Alexandra MARINROSE INGRID CARROLL Mavent [facility] CPT-4: 19094 06/22/2017 ([id number]) OFFICE/OUTPATIENT VISIT EST Diagnosis: URI, ACUTE[ICD10: J06.9] Alexandra PAREKH [facility] CPT-4: 98462 03/28/2017 OFFICE/OUTPATIENT VISIT EST Diagnosis: Acute sinusitis, unspecified[ICD10: J01.90] Vandana CARROLL DO [facility] CPT-4: 00904 02/16/2017 ([id number]) OFFICE/OUTPATIENT VISIT EST Diagnosis: Migraine, unspecified, not intractable, without status migrainosus[ICD10: G43.909] Alexandra CARROLL DO [facility] CPT - 4: 24028 11/02/2016 ([id number]) OFFICE/OUTPATIENT VISIT EST Diagnosis: Pain in thoracic spine[ICD10: M54.6] Diagnosis: Chondrocostal junction syndrome [Tietze][ICD10: M94.0] Alexandra CARROLL [facility] CPT-4: 25666 09/06/2016 OFFICE/OUTPATIENT VISIT EST Diagnosis: Acute sinusitis, unspecified[ICD10: J01.90] Vidya SpicerLarry ALEXANDRA CARROLL [facility] CPT-4: 51798 08/16/2016 ([id number]) OFFICE/OUTPATIENT VISIT EST Diagnosis: Primary insomnia[ICD10: F51.01] Diagnosis: Cramp and spasm[ICD10: R25.2] Diagnosis: Major depressive disorder, single episode, mild[ICD10: F32.0] Alexandra CARROLL [facility] CPT-4: 13402 07/19/2016 ([id number]) OFFICE/OUTPATIENT VISIT EST Diagnosis: Obstructive sleep apnea (adult) (pediatric)[ICD10: G47.33] Diagnosis: Other fatigue[ICD10: R53.83] Diagnosis: Allergic rhinitis due to pollen[ICD10: J30.1] Diagnosis: Headache[ICD10: R51] Alexandra CARROLL [facility] CPT-4: 61437 07/06/2016 ([id number]) OFFICE/OUTPATIENT VISIT EST Diagnosis: Acute recurrent sinusitis, unspecified[ICD10: J01.91] Diagnosis: Allergic rhinitis due to pollen[ICD10: J30.1] Alexandra CARROLL Mavent [facility] CPT-4: 78207 06/15/2016 ([id number]) OFFICE/OUTPATIENT VISIT EST Diagnosis: Migraine, unspecified, not intractable, without status migrainosus[ICD10: G43.909] Diagnosis: Allergic rhinitis, unspecified[ICD10: J30.9] Nae CARROLL DO [facility] CPT-4: 28091 04/09/2016 ([id number]) OFFICE/OUTPATIENT VISIT EST Diagnosis: Hypothyroidism, unspecified[ICD10: E03.9] Diagnosis: Other fatigue[ICD10: R53.83] Diagnosis: Mixed hyperlipidemia[ICD10: E78.2] Diagnosis: Major depressive disorder, single episode, mild[ICD10: F32.0] Alexandra CARROLL Mavent [facility] CPT-4: 92913 03/17/2016 ([id number]) OFFICE/OUTPATIENT VISIT EST Diagnosis: Insomnia, unspecified[ICD10: G47.00] Diagnosis: Encounter for therapeutic drug level monitoring[ICD10: Z51.81] Nae CARROLL Mavent [facility] CPT-4: 21519 11/13/2015 ([id number]) OFFICE/OUTPATIENT VISIT EST Diagnosis: Hematuria, unspecified[ICD10: R31.9] Alexandra CARROLL Mavent [facility] CPT-4: 24315 05/05/2015 ([id number]) OFFICE/OUTPATIENT VISIT EST Diagnosis: Other intervertebral disc degeneration, lumbar region[ICD10: M51.36] Diagnosis: Radiculopathy, lumbosacral region[ICD10: M54.17] Alexandra CARROLL Mavent [facility] CPT-4: 76438 04/22/2015 ([id number]) OFFICE/OUTPATIENT VISIT EST Diagnosis: Low back pain[ICD10: M54.5] Diagnosis: Recurrent and persistent hematuria with unspecified morphologic changes[ICD10: N02.9] Alexandra CARROLL Mavent [facility] CPT-4: 16555 03/24/2015 ([id number]) OFFICE/OUTPATIENT VISIT EST Diagnosis: Acute sinusitis, unspecified[ICD10: J01.90] Diagnosis: Headache[ICD10: R51] Diagnosis: Retention of urine, unspecified[ICD10: R33.9] Diagnosis: Hypothyroidism, unspecified[ICD10: E03.9] Alexandra Orendvioletta SHAFFERALEXANDRA Ty VELANDVIOLETTA SALGUERO [facility] CPT-4: 34223 02/27/2015 ([id number]) PREV VISIT EST AGE 40-64 Diagnosis: ROUTINE MEDICAL EXAM[ICD9: V70.0] Diagnosis: HYPOTHYROIDISM[ICD9: 244.9] Diagnosis: HYPERLIPIDEMIA NEC/NOS[ICD9: 272.4] Alexandra CORDOBA Ty CARROLL [facility] CPT-4: 96496 06/13/2014 ([id number]) OFFICE/OUTPATIENT VISIT EST Diagnosis: CEPHALGIA[ICD9: 784.0] Diagnosis: Nausea[ICD9: 787.02] Shalini KevinWendiroxanaabdirizak ALEXANDRA Ty CARROLL [facility] CPT-4: 13443 04/18/2014 ([id number]) OFFICE/OUTPATIENT VISIT EST Diagnosis: INSOMNIA NOS[ICD9: 780.52] Diagnosis: Complicated grieving[ICD9: 309.0] Alexandra Danegina Louise SAri CARROLL [facility] CPT-4: 43663 12/05/2013 ([id number]) OFFICE/OUTPATIENT VISIT EST Diagnosis: Muscle twitch[ICD9: 781.0] Diagnosis: ALLERGIC RHINITIS[ICD9: 477.9] Alexandra Danegina FORDE Macy CARROLL DO [facility] CPT-4: 03326 06/05/2013 ([id number]) OFFICE/OUTPATIENT VISIT EST Diagnosis: DEPRESSIVE DISORDER NEC[ICD9: 311] Alexandra QUINTERO S. DANENDER DO [facility] CPT-4: 23129 05/22/2013 OFFICE/OUTPATIENT VISIT EST Diagnosis: Shingles[ICD9: 053.9] Alexandra FORDE MacyAri DANENDER [facility] CPT-4: 51442 04/05/2013 ([id number]) OFFICE/OUTPATIENT VISIT EST Diagnosis: DEPRESSIVE DISORDER NEC[ICD9: 311] Alexandra QUINTERO S. DANENDER [facility] CPT-4: 01918 03/26/2013 ([id number]) OFFICE/OUTPATIENT VISIT EST Diagnosis: Complicated grieving[ICD9: 309.0] Alexandra Velalawandavioletta CARROLL [facility] CPT-4: 62328 03/06/2013 ([id number]) OFFICE/OUTPATIENT VISIT EST Diagnosis: CEPHALGIA, TENSION[ICD9: 307.81] Diagnosis: MIGRAINE NOS/NOT INTRCBL[ICD9: 346.90] Diagnosis: Cervicalgia[ICD9: 723.1] Alexandra Danelawandavioletta PLATT IZABELLA [facility] CPT-4: 77136 11/29/2012 ([id number]) OFFICE/OUTPATIENT VISIT EST Diagnosis: Jaw pain[ICD9: 784.92] Diagnosis: Shoulder pain[ICD9: 719.41] Diagnosis: Family history of premature coronary artery disease[ICD9: V17.3] Alexandra CARROLL [facility] CPT-4: 49208 09/26/2012 ([id number]) OFFICE/OUTPATIENT VISIT EST Diagnosis: ABDOMINAL PAIN[ICD9: 789.00] Diagnosis: Constipation[ICD9: 564.00] Diagnosis: Hematuria[ICD9: 599.70] Alexandra SHIPLEY [facility] CPT-4: 81615 07/11/2012 ([id number]) OFFICE/OUTPATIENT VISIT EST Diagnosis: ANEMIA NOS[ICD9: 285.9] Alexandra SHIPLEY [facility] CPT-4: 06484 02/17/2012 ([id number]) PREV VISIT EST AGE 40-64 Diagnosis: ROUTINE MEDICAL EXAM[ICD9: V70.0] Diagnosis: HYPOTHYROIDISM[ICD9: 244.9] Diagnosis: HYPERLIPIDEMIA NEC/NOS[ICD9: 272.4] Diagnosis: Obstructive sleep apnea[ICD9: 327.23] Alexandra Danegina TANIAGWENDOLYN JANEL Ty CARROLL [facility] CPT-4: 46185 02/02/2012 ([id number]) OFFICE/OUTPATIENT VISIT EST Diagnosis: URINARY TRACT INFECTION[ICD9: 599.0] Alexandra Danegina EDMUND DANIELLE [facility] CPT-[facility]: 35970 08/27/2011 ([id number]) OFFICE/OUTPATIENT VISIT EST Diagnosis: URINARY TRACT INFECTION[ICD9: 599.0] Diagnosis: ACUTE CYSTITIS[ICD9: 595.0] [facility]andra [facility] CPT-4: 19239 08/17/2011 OFFICE/OUTPATIENT VISIT EST Diagnosis: URINARY TRACT INFECTION[ICD9: 599.0] Steph Bowen EDMUND [facility] CPT-4: 34608 10/14/2010 Plan of Care Planned Activity Notes Codes Status Date Visit Diagnosis Plan: Urinary tract infection, site no t specified Discussion: urine sent for culture. cipro prescribed to take as directed and instructed to stop the macrobid that she has since there is no improvement in symptoms. push fluids. will call patient pending culture results. ICD-9 : 599.0 ICD-10 : N39.0 07/17/2019 Appointment: Vandana Crowe [address] [place], [place] [id number] ACUTE ILLNESS 07/17/2019 Patient Education: Cipro- [employer] Coupon [id number] [email or web address]/resources/[email or web address] Completed 07/17/2019 Visit Diagnosis Plan: Allergic dermatitis Discussion: Could be numerous things that were given during surgery Continue benadryl Add Prednisone Notify if persists/worsens ICD-9 : 692.9 ICD-10 : L23.9 06/26/2019 Appointment: Alexandra Carroll [facility]el[facility] [facility] 06/26/2019 Patient Education: prednisone- [employer] Coupon [phone] https://www.[email or web address]/Kids Calendar/resources/getResource/[email or web address] Completed 06/26/2019 Visit Diagnosis Plan: Cellulitis of [...] injection a week pre-op and dr. albert's machine i cutter voiced ok to give. ICD-9 : 692.6 ICD-10 : L25.5 05/14/2019 Appointment: Vandana Crowe [address] [place], [place] [id number] ACUTE ILLNESS 05/14/2019 Patient Education: Levaquin- [employer] Coupon [phone] [email or web address]/resources/getResource/[email or web address] Completed 05/14/2019 Visit Diagnosis Plan: Ventral hernia Discussion: See s urgery for repair Discussed signs of incarceration or strangulation then is to report to ER ICD-9 : 553.20 ICD-10 : K43.9 04/10/2019 Appointment: Alexandra Carroll WPtel: [address] [place], [place] [phone] [place] left second message 04/10/19 at 10:20 ACUTE ILLNE SS 04/10/2019 Care Plan: Referral Order SNOMED-CT : 30 [id number] Pending 04/10/2019 Visit Diagnosis Plan: Insomnia Discussion: [...] : D47.3 02/14/2019 Appointment: Alexandra Carroll WPtel: [address] [place], [place] [phone] [place] FOLLOW UP 02/14/2019 Appointment: Alexandra Carroll WPtel: [address] [place], [place] [phone] US CANCELED 02/12/2019 Visit Diagnosis Plan: Onychomycosis Discussion: Send n ail for culture ICD-9 : 110.1 ICD-10 : B35.1 01/16/2019 Visit Diagnosis Plan: Small bowel obstruction Discussi on: S/P surgery in September with postop complications of wound dehiscence ICD-9 : 560.9 ICD-10 : K56.609 01/16/2019 Appointment: Alexandra Carroll WPtel: [phone] [facility] MEDICATION REVIEW 01/16/2019 Appointment: Alexandra Carroll WPtel: [address] [facility] US CANCELED 12/12/2018 Visit Diagnosis Plan: Diarrhea, unspecified Discussion : Due for updated colonoscopy ICD-9 : 787.91 ICD-10 : R19.7 09/18/2018 Visit Diagnosis Plan: Radiculopathy, lumbosacral regio n Discussion: Had left SI joint injection by Dr. Baig about 2 weeks ago and has fwup with him ICD-9 : 724.4 ICD-10 : M54.17 09/18/2018 Appointment: Alexandra Carroll WPtel: [address] [place], [place] [phone] [place] PATIENT CONSULT 15 09/18/2018 Care Plan: Referral Order SNOMED-CT : 30 [id number] Pending 09/18/2018 Visit Diagnosis Plan: Other intervertebral [...] : M46.1 08/10/2018 Appointment: Alexandra Carroll WPtel: [address] [place] [address] [place] MEDICATION REVIEW 08/10/2018 Care Plan: Referral Order SNOMED-CT : 30 [id number] Pending 08/10/2018 Appointment: Alexandra Carroll WPtel: [address] [place] [address] US CANCELED 04/17/2018 Visit Diagnosis Plan: Fracture [...] Visit Diagnosis Plan: Cervicalgia Discussion: Daily st retches Has finished PT and seeing chiropracter ICD-9 : 723.1 ICD-10 : M54.2 03/27/2018 Appointment: Alexandra Carroll WPtel: [address] [place] [address] US FOLLOW UP 03/27/2018 Visit Diagnosis Plan: [...] : S42.002D 02/23/2018 Appointment: Alexandra Carroll WPtel: [address] [place], [place] [phone] US FOLLOW UP 02/23/2018 Patient Education: gabapentin- [employer] Coupon [phone] [email or web address].[email or web address]/[email or web address]/resources/getResource/[email or web address] Completed 02/23/2018 Visit Diagnosis Plan: Fracture of unspec ified part of left clavicle, subsequent encounter for fracture with routine healing Discussion: Hold on PT and do home stretches Trial of gabapentin Recheck 4 weeks ICD-9 : V54.11 ICD-10 : S42.002D 01/24/2018 Appointment: Alexandra Carroll WPtel: [address] [place] [address] US FOLLOW UP 01/24/2018 Visit Diagnosis Plan: Migraine, unspecif ied, not intractable, without status migrainosus Discussion: Toradol and phenergan given ICD-9 : 346.90 ICD-10 : G43.909 01/17/2018 Appointment: Alexandra Carroll WPtel: [address] [place] [address] ACUTE ILLNESS 01/17/2018 Visit Diagnosis Plan: Retention [...] : M51.36 12/29/2017 Appointment: Alexandra Carroll WPtel: [address] [place] [address] ACUTE ILLNESS 12/29/2017 Care Plan: US EXAM PELVIC COMPLETE LOINC : 14902-1 Pending 12/29/2017 Care Plan: ECHO EXAM OF ABDOMEN LOINC : 36462-0 Pending 12/29/2017 Care Plan: Referral Order SNOMED-CT : [id number] Pending 12/29/2017 Visit Diagnosis Plan: Fracture of unspec ified part of left clavicle, subsequent encounter for fracture with routine healing Discussion: Start PT in another 7-14 days Off work for the rest of this week then may return to part-time work on 12/12/17 Fwup in 4 weeks ICD-9 : V54.11 ICD-10 : S42.002D 12/06/2017 Appointment: Alexandra Carroll WPtel: [phone] [id number] US FOLLOW UP 12/06/2017 Patient Education: Patient [...] ICD-10 : Z88.1 12/01/2017 Appointment: Vandana Crowe [address] [place] [address] FOLLOW UP 12/01/2017 Patient Education: Patient Medication [...] : Z88.1 11/30/2017 Appointment: Vandana Crowe [facility] 11/30/2017 Patient Education: Patient Medication Summary Completed [...] ICD-10 : L03.113 11/29/2017 Appointment: Vandana Crowe [address] [place] [address] FOLLOW UP 11/29/2017 Patient Education: Patient Medication [...] ICD-10 : L03.113 11/28/2017 Appointment: Vandana Crowe [address] [place], [place] [id number] ACUTE ILLNESS 11/28/2017 Patient Education: Patient Medication [...] M51.36 11/17/2017 Appointment: Alexandra Carroll [facility]el[phone] MEDICATION REVIEW 11/17/2017 Patient Education: Patient Medication Summary Completed 11/17/2017 Care Plan: Referral Order SNOMED-CT : [id number] Pending 11/17/2017 Patient Education: Patient Medication Summary Completed 10/12/2017 Care Plan: MRI LUMBAR SPINE W/O DYE LOIN C : 38491-3 Pending 10/12/2017 Care Plan: X-RAY EXAM L-S SPINE 2/3 VWS LOINC : 01766-8 Pending 10/11/2017 Visit Diagnosis Plan: Other retention [...] medrol pack to start tomorrow. [facility] with inversion table. instructed patient to go to ED immediately if she develops any incontinence with bowel or bladder. patient verbalized understanding. if no improvement, will need updated MRI and referral to surgeon. ICD-9 : 724.4 ICD-10 : M54.17 10/10/2017 Appointment: Vandana Crowe [address] [place], [place] [id number] ACUTE ILLNESS 10/10/2017 Patient Education: Patient Medication Summary Completed 10/10/2017 Appointment: Vandana Crowe [address] [place], [place] [phone] ACUTE ILLNESS 08/01/2017 Visit Diagnosis Plan: Other intervertebral disc degene ration, lumbar region Discussion: Core strengtheing and inversion table and if worsening will need updated MRI ICD-9 : 722.52 ICD-10 : M51.36 06/22/2017 Visit Diagnosis Plan: Encounter for [facility] adult medical examination without abnormal findings Discussion: Lab dis ussed Follow Up: 6 months ICD-9 : V70.0 ICD-10 : Z00.00 06/22/2017 Appointment: Alexandra Carroll WPtel: [address] [place] [address] Annual Well Visit 06/22/2017 Patient Education: Patient Medication Summary Completed 06/22/2017 Patient Education: Patient Medication Summary Completed 06/16/2017 Care Plan: COMPREH[place]AB[place] : 37898-4 Pending 06/16/2017 Care Plan: ASSAY THYROID STIM HORMONE Pen ding 06/16/2017 Care Plan: ASSAY OF FREE THYROXINE Pendin g 06/16/2017 Care Plan: LIPID PANEL LOINC : 56840-8 Pending 06/16/2017 Care Plan: CBC Pending 06/16/2017 [...] : J06.9 03/28/2017 Appointment: Alexandra Carroll WPtel: [facility] [address] ACUTE ILLNESS 03/28/2017 Patient Education: Patient Medication Summary Completed 03/28/2017 Visit Diagnosis Plan: Acute sinusitis, unspecified Dis cussion: cefdinir and medrol dose pack prescribed to be taken as directed. tylenol/ibuprofen as needed. educated on importance of taking singulair or zyrtec daily to prevent worsening symptoms. keep hydrated. ICD-9 : 461.9 ICD-10 : J01.90 02/16/2017 Appointment: Vandana Crowe [address] [place] [address] ACUTE ILLNESS 02/16/2017 Patient Education: Patient Medication Summary Completed 02/16/2017 Appointment: Alexandra Carroll WPtel: [address] [place] [address] INJECTION 11/02/2016 Patient Education: Patient Medication Summary Completed 11/02/2016 Visit Diagnosis Plan: Pain in thoracic spine Discussio n: Increase flexeril to 10mg po BID Add Mobic 15mg po daily Towel stretch May see chiropractor to adjust ribs Notify if persists or worsening ICD-9 : 724.1 ICD-10 : M54.6 09/06/2016 Appointment: Alexandra Carroll WPtel: [address] [place] [address] ACUTE ILLNESS 09/06/2016 Patient Education: Patient Medication Summary Completed 09/06/2016 Visit Plan: Due to hx, ERx Cefdinir and Prednisone (discussed risks for both) Given bottle for nasal saline rinses Tylenol/Ibuprofen prn pain/fever Fluids/rest Discussed s/s of worsening, RTC if no improvement 08/16/2016 Appointment: Vidya Manuel WPtel: [facility] ACUTE ILLNESS 08/16/2016 Patient Education: Patient Medication Summary Completed 08/16/2016 Visit Diagnosis Plan: Primary insomnia Discussion: Con tinue xanax at current dose--patient has been trying [...] : F32.0 07/19/2016 Appointment: Alexandra Carroll WPtel: [address] [place], [place] [phone] 07/15 confirmed`sl FOLLOW UP 07/19/2016 Patient Education: [...] : J30.1 07/06/2016 Appointment: Alexandra Carroll WPtel: [address] [place], [place] [phone] 07/05 confirmed-sp FOLLOW UP 07/06/2016 Patient Education: [...] 461.9 ICD-10 : J01.91 06/15/2016 Appointment: Alexandra Carroll WPtel: [address] [place], [place] [id number] 06/14 lm ~sl ACUTE ILLNESS 06/15/2016 Patient Education: Patient Medication Summary Completed 06/15/2016 Visit Diagnosis Plan: Migraine, unspecif ied, not intractable, without status migrainosus Discussion: Injection as above Drink ple nty of water No driving x 6 hours Rest No OTC nsaids today Follow up PRN Refill called of claritin-d ICD-9 : 346.90 ICD-10 : G43.909 04/09/2016 Appointment: [facility] [facility] 04/09/2016 Patient Education: Patient [...] : R53.83 03/17/2016 Appointment: Alexandra Carroll WPtel: [address] [place] [address] 03/16 nvm~sl 03/17 confirmed`sl FOLLOW UP 0 03/17/2016 Patient Education: Patient Medication Summary Completed 03/17/2016 Appointment: Alexandra Carroll WPtel: [address] [place] [address] 03/11 lm~sl 03/15lm `sl 03/15 confirmed`sl FOLLOW U P 03/15/2016 Visit Plan: Discussed labeled indication s for benzos. Since xanax is not labeled for sleep and she has never tried anything else, encouraged her to trial restoril(another benzo) since it is labeled for sleep. She agrees with this trial. Rx called to [facility] after cost comparison which is nearly the same robert. If working well, continue the b9xinps office visits. Call if not working well, and will restart xanax at for sleep. 11/13/2015 Appointment: Woody Nae [address] [place], [place] [phone] 11/11 confirmed~sl FOLLOW UP 11/13/2015 Patient Education: Patient Medication Summary Completed 11/13/2015 Appointment: Alexandra Carroll WPtel: [address] [place], [place] [phone] Suture Removal 06/23/2015 Patient Education: Patient Medication Summary Completed 06/23/2015 Visit Plan: Removal of lesion above usin g 3-0 punch biopsy Return in 10 days for suture removal 06/12/2015 Appointment: Alexandra Carroll WPtel: [address] [place], [place] [phone] 06/10 lm ~sl ACUTE ILLNESS 06/12/2015 Patient Education: Patient Medication Summary Completed 06/12/2015 Referral: Soy Garcia WPtel: [facility] Schedule patient around lunch time and 3 weeks from 04/22/2015 ~sl Spoke with Kiesha at Dr. Sandoval [facility] and 04/24/15 and scheduled the patient ~sl 04/24/15 Patient is informed~sl 06/03 Patient canceled the appointment ~ sl Patient did not show up for scheduled appointment-sp Appoint ment Requested 05/21/2015 Appointment: Alexandra Carroll WPtel: [address] [place], [place] [phone] [facility] 05/05/2015 Patient Education: Patient Medication Summary Completed 05/05/2015 Visit Plan: Starts PT today Schedule wit h Dr. Garcia for epidural CT abdomen/pelvis results discussed Sees DISABILITY SERVICES COORDINATOR in April and will get checked then 04/22/2015 Appointment: Alexandra Carroll WPtel: [address] [place], [place] [phone] 04/21 confirmed~lb ACUTE ILLNESS 04/22/2015 Patient Education: Patient Medication Summary Completed 04/22/2015 Referral: Lincoln Hernandez WPtel: [address] [place] [address] [place] Referral Initiated 04/10/2015 Patient Education: Patient Medication Summary Completed 04/09/2015 Visit Plan: Start with lumosacral spine x-ray--will likely need MRI of L/S spine x-ray Needs urology--has had to have bladder stretched in past Tivorbex 03/24/2015 Appointment: Alexandra Carroll WPtel: [address] [place] [address] 03/21/15 appt confirmed cn ACUTE ILLNESS 03/24 Patient Education: Patient Medication Summary Completed 03/24/2015 Visit Plan: Saline nasal flushes prn. Ty lenol/Motrin prn headache. Notify if persists/symptoms worsening. Cefuroxime to cover both sinuses and UTI Culture urine Check lab 02/27/2015 Appointment: Alexandra Carroll WPtel: [address] [place] [address] 02/26/15 vm to confirm and need new insu meri on file is inactive cn....02/27/15 appt confirmed cn ACUTE ILLNESS 015 Patient Education: Patient Medication Summary Completed 02/27/2015 Visit Plan: Lab discussed Stop simvastat in Check lipids in 6mos Continue all other meds at current dose Had Pap and Mammo 3 weeks ago 06/13/2014 Appointment: Alexandra Carroll WPtel: [address] [place] [address] Annual Well Visit 06/13/2014 Patient Education: Patient Medication Summary Completed 06/13/2014 Appointment: Shalini Walters WPtel: [address] [place] [address] ACUTE ILLNESS 04/18/2014 Patient Education: Patient Medication Summary Completed 04/18/2014 Visit Plan: Check lab in May then fwup Can try decreasing xanax to 1mg q HS with melatonin 5-10mg q HS 12/05/2013 Appointment: Alexandra Carroll WPtel: [address] [place], [place] [phone] 12/04 FOLLOW UP 12/05/2013 Patient Education: Patient Medication Summary Completed 12/05/2013 Appointment: Alexandra Carroll WPtel: [address] [place], [place] [id number] FOLLOW UP 06/05/2013 Patient Education: Patient Medication Summary Completed 06/05/2013 Appointment: Alexandra Carroll WPtel: [address] [place] [address] FOLLOW UP 05/22/2013 Patient Education: Patient Medication Summary Completed 05/22/2013 Visit Plan: Zovirax for 2wks Notify if p ain worsens or if persists 04/05/2013 Appointment: Alexandra Carroll WPtel: [address] [place] [address] ACUTE ILLNESS 04/05/2013 Patient Education: Patient Medication Summary Completed 04/05/2013 Visit Plan: Keep Wellbutrin at current d ose Pt did see psych social worker for counseling 03/26/2013 Appointment: Alexandra Carrolltel: [address] [place] [address] ACUTE ILLNESS 03/26/2013 Patient Education: Patient Medication Summary Completed 03/26/2013 Visit Plan: Continue citalopram at curre nt dose Increase xanax to 1-2mg q HS for sleep Add Wellbutrin Sr 100mg q AM Start Counseling 03/06/2013 Appointment: Alexandra Carroll WPtel: [address] [place] [address] ACUTE ILLNESS 03/06/2013 Patient Education: Patient Medication Summary Completed 03/06/2013 Appointment: Alexandra Carroll WPtel: [address] [place] [address] ACUTE ILLNESS 11/29/2012 Patient Education: Patient Medication Summary Completed 11/29/2012 Appointment: Alexandra Carroll WPtel: [address] [place], [place] [phone] ACUTE ILLNESS 09/26/2012 Patient Education: Patient Medication Summary Completed 09/26/2012 Appointment: Alexandra Carrolltel: [address] [place], [place] [phone] ACUTE ILLNESS 07/11/2012 Patient Education: Patient Medication Summary Completed 07/11/2012 Appointment: Alexandra Carroll WPtel: [address] [place], [place] [phone] US LAB 02/17/2012 Patient Education: Patient Medication Summary Completed 02/17/2012 Visit Plan: Check fasting lab Start annie y ca with Vit D Cont CPAP Mammo up-to-date Hemoccult card given 02/02/2012 Appointment: Alexandra Carroll WPtel: [address] [place] [address] PHYSICAL 02/02/2012 Patient Education: Patient Medication Summary Completed 02/02/2012 Appointment: Alexandra Carroll WPtel: [address] [place], [place] [phone] UA 08/27/2011 Patient Education: Patient Medication Summary Completed 08/27/2011 Visit Plan: Levaquin and Diflucan for 1w k Then cipro QOD for prophylaxis 08/17/2011 Appointment: Alexandra Carrolltel: [address] [place] [address] FOLLOW UP 08/17/2011 Patient Education: Patient Medication Summary Completed 08/17/2011 Appointment: Alexandra Carroll WPtel: [address] [place] [address] UA 12/28/2010 Patient Education: Patient Medication Summary Completed 12/28/2010 Appointment: Alexandra Carroll WPtel: [address] [place], [place] [phone] UA 11/09/2010 Patient Education: Patient Medication Summary Completed 11/09/2010 Appointment: Alexandra Carrolll: [address] [facility] UA 10/29/2010 Patient Education: Patient Medication Summary Completed 10/29/2010 Appointment: Steph Bowen WPtel: [address] [facility] [address] ACUTE ILLNESS 10/14/2010 Patient Education: Patient Medication Summary Completed 10/14/2010 Referral: Florian Baig WPtel: [facility] [address] Referral Initiated Referral: Paulo Albert WPtel: [id number] [place] Referral Appointment Requested Referral: Luis Enrique Jasso WPtel: [facility] [address] Referral Appointment Requested Referral: Florian Baig WPtel: [facility] [address] [place] Referral Appointment Requested Referral: Caleb Glaser WPtel: [address] [place] Referral Appointment Requested Referral: Florian Baig WPtel: [facility] [address] Referral Initiated Referral: Florian Baig WPtel: [facility] [address] [place] Referral Appointment Requested Instructions Comment . Supportive [...] agrees with this trial. [facility] which is nearly the same robert. If working well, continue the [id number] office visits. Call if not working well, and will restart xanax at HS for sleep. . Removal of lesion above using 3-0 punc h biopsy Return in 10 days for suture removal . Starts PT today Schedule with Dr. Garcia for epidural CT abdomen/pelvis results discussed Sees DISABILITY SERVICES COORDINATOR in April and will get checked then [...]
--- OUTSIDE RECORDS SUMMARY | 2019-09-02 00:13 | XMS REPORT | CCD ---
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 Role Phone Alexandra Carroll D.O., PP Unavailable CCM Unavailable Summary Purpose Interface Exchange Insurance Providers Payer name Policy type / Coverage type Covered constitution party ID Effective Begin Date Effective End Date WPS MEDICARE PART B [place] Part B [id number] 2019 Unknown [employer] [place] Medicare Part B [id number] Unknown Family History Family History data not found Social History Social History Element Codes Description Effective Dates Tobacco history SNOMED CT: 386660369 Nonsmoker 10/14/2010 Allergies, Adverse Reactions, Alerts Substance Reaction Codes Entered Date Inactivated Date Status MORPHINE SULFATE RxNorm: 6424686 10/14/2010 No Inactive Da te Active CEPHALOSPORINS [...] Fill Instructions cyclobenzaprine 10 mg tablet RxNorm: 154042 Tablet(s) Oral as neede d 07/17/2019 No Stop Date Active Cipro 500 mg tablet RxNorm: 124194 1 Tablet(s) Oral two times a day 07/17/2019 07/22/2019 Inactive Xanax 1 mg tablet RxNorm: 778824 1-2 Tablet(s) Oral e very night at bedtime as needed for sleep 07/10/2019 08/08/2019 Active Generic For:LAVELLE AX 1MG 10/11/2016 11:15:13 AM prednisone 20 mg tablet RxNorm: 158164 1 Tablet(s) Oral two harlan es a day 06/26/2019 07/03/2019 Inactive Amabelz 1 mg-0.5 mg tablet RxNorm: 4103304 1 Tablet(s) Oral QD 05/3007/17/2019 Inactive Trazadone 150 mg Tablet RxNorm: 1 Tablet(s) Oral every n ight at bedtime 05/14/2019 No Stop Date Active Levaquin 500 mg tablet RxNorm: 965067 1 Tablet(s) Oral QD 05/14/2019 05/21/2019 Inactive Xanax 1 mg tablet RxNorm: 438618 1-2 Tablet(s) Oral e very night at bedtime as needed for sleep 05/03/2019 06/01/2019 Inactive Generic For:LAVELLE AX 1MG 10/11/2016 11:15:13 AM cyclobenzaprine 10 mg tablet RxNorm: 594495 1 Tablet(s) Oral three times a day as needed for muscle spasm 02/12/2019 02/12/2019 Inactive Xanax 1 mg tablet RxNorm: 210485 1-2 Tablet(s) Oral e very night at bedtime as needed for sleep 02/09/2019 03/10/2019 Inactive Generic For:LAVELLE AX 1MG 10/11/2016 11:15:13 AM Xanax 1 mg tablet RxNorm: 007748 1-2 Tablet(s) Oral e very night at bedtime as needed for sleep 01/22/2019 02/08/2019 Inactive Generic For:LAVELLE AX 1MG 10/11/2016 11:15:13 AM Celexa 40 mg tablet RxNorm: 018127 1 Tablet(s) Oral QD 01/17/2019 Active - First Attempt Ref: [id number] Xanax 1 mg tablet RxNorm: 388672 1 Tablet(s) Oral every night a t bedtime 01/08/2019 01/21/2019 Inactive levothyroxine 88 mcg tablet RxNorm: 428861 TAKE 1 TABLET BY NINA TH DAILY 12/19/2018 06/16/2019 Inactive - First Attempt Ref: [id number] Xanax 1 mg tablet RxNorm: 187456 1 Tablet(s) Oral every night a t bedtime 12/06/2018 01/05/2019 Inactive Singulair 10 mg tablet RxNorm: 289114 1 Tablet(s) Oral every ni ght at bedtime 11/23/2018 11/17/2019 Active - First Attempt Ref: [id number] Celexa 40 mg tablet RxNorm: 577127 1 Tablet(s) Oral 11/23/20182018 Inactive - First Attempt Ref: [id number] cyclobenzaprine 10 mg tablet RxNorm: 437746 1 Tablet(s) Oral three times a day as needed for muscle spasm 11/23/2018 02/11/2019 Inactive Xanax 1 mg tablet RxNorm: 066800 1 Tablet(s) PO QHS 11/06/20182018 Inactive Xanax 1 mg tablet RxNorm: 964229 1 Tablet(s) PO QHS 09/26/20182018 Inactive Singulair 10 mg tablet RxNorm: 594914 TAKE 1 TABLET BY MOUTH EVERY NIGHT AT BEDTIME 08/16/2018 11/22/2018 Inactive - First Attempt Ref: [id number] Xanax 1 mg tablet RxNorm: 425086 1 Tablet(s) PO QHS 08/01/20182018 Inactive levothyroxine 88 mcg tablet RxNorm: 359235 TAKE 1 TABLET BY NINA TH DAILY 07/31/2018 12/18/2018 Inactive - First Attempt Ref: [id number] Celexa 40 mg tablet RxNorm: 794088 TAKE 1 TABLET BY MOUTH DAILY 04/201811/22/2018 Inactive - First Attempt Ref: [id number] bupropion HCl SR 100 mg tablet,12 hr sustained-release RxNor m: 590052 1 Tablet(s) PO BID 07/12/2018 07/06/2019 Inactive - Ref: [id number] 7 Claritin-D 24 Hour 10 mg-240 mg tablet,extended release RxNo rm: 6795101 1 Tablet(s) PO QD 06/29/2018 2018 Inactive Claritin-D 24 Hour 10 mg-240 mg tablet,extended release RxNo rm: 1220698 1 Tablet(s) PO QD 06/29/2018 2018 Inactive Xanax 1 mg tablet RxNorm: 863328 1-2 Tablet(s) PO QHS as needed for sleep 05/26/2018 06/23/2018 Inactive Generic For:XANAX 1M G 10/11/2016 11:15:13 AM Xanax 1 mg tablet RxNorm: 930056 1-2 Tablet(s) PO QHS as needed for sleep 03/28/2018 05/25/2018 Inactive Generic For:XANAX 1M G 10/11/2016 11:15:13 AM Macrobid 100 mg capsule RxNorm: 456147 1 Capsule(s) PO BID 03/27/19 19 03/31/2018 Inactive gabapentin 300 mg capsule RxNorm: 501606 1 Capsule(s) PO QHS 201703/26/2018 Inactive Claritin-D 24 Hour 10 mg-240 mg tablet,extended release RxNo rm: 0076884 1 Tablet(s) PO QD 01/26/2018 02/24/2018 Inactive gabapentin 100 mg capsule RxNorm: 155504 1 Capsule(s) P O QHS for 1 week then 2 po q HS for 2 weeks then 3 po q HS 01/24/2018 03/26/2018 Inactive Xanax 1 mg tablet RxNorm: 444015 1-2 Tablet(s) PO QHS as needed for sleep 01/24/2018 03/24/2018 Inactive Generic For:XANAX 1M G 10/11/2016 11:15:13 AM prednisone 20 mg tablet RxNorm: 971095 1 Tablet(s) PO T ID for 3 days then 1 po BID for 3 days then one daily for 3 days 12/29/2017 03/26/2018 Inactiv e prednisone 20 mg tablet RxNorm: 117335 3 Tablet(s) PO T ID for 3 days then 1 po BID for 3 days then one daily for 3 days 12/29/2017 12/29/2017 Inactiv e Macrobid 100 mg capsule RxNorm: 330301 1 Capsule(s) PO BID 12/30/19 18 01/02/2018 Inactive Xanax 1 mg tablet RxNorm: 245452 1-2 Tablet(s) PO QHS as needed for sleep 12/28/2017 01/23/2018 Inactive Generic For:XANAX 1M G 10/11/2016 11:15:13 AM Medrol (Walter) 4 mg tablets in a dose pack RxNorm: 075243 Tablet(s) PO take as directed 12/01/2017 03/26/2018 Inactive Keflex 750 mg capsule RxNorm: 434433 1 Capsule(s) PO BID 12/01/2017 1 Inactive clindamycin HCl 300 mg capsule RxNorm: 665659 2 Capsule(s) PO TID 1 12/08/2017 Inactive Xanax 1 mg tablet RxNorm: 902184 1-2 Tablet(s) PO QHS as needed for sleep 11/28/2017 12/27/2017 Inactive Generic For:XANAX 1M G 10/11/2016 11:15:13 AM mupirocin 2 % topical ointment RxNorm: 696521 1 Application OTIC BI D 11/28/2017 08/09/2018 Inactive Xanax 1 mg tablet RxNorm: 666661 1-2 Tablet(s) PO QHS as needed for sleep 10/27/2017 11/25/2017 Inactive Generic For:XANAX 1M G 10/11/2016 11:15:13 AM Macrobid 100 mg capsule RxNorm: 229232 1 Capsule(s) PO BID 10/11/19 18 10/16/2017 Inactive Medrol (Walter) 4 mg tablets in a dose pack RxNorm: 942823 Tablet(s) PO take as directed 10/10/2017 11/16/2017 Inactive Xanax 1 mg tablet RxNorm: 641225 1-2 Tablet(s) PO QHS as needed for sleep 09/28/2017 10/26/2017 Inactive Generic For:XANAX 1M G 10/11/2016 11:15:13 AM Xanax 1 mg tablet RxNorm: 774679 1-2 Tablet(s) PO QHS as needed for sleep 08/30/2017 09/27/2017 Inactive Generic For:XANAX 1M G 10/11/2016 11:15:13 AM Xanax 1 mg tablet RxNorm: 592719 1-2 Tablet(s) PO QHS as needed for sleep 08/30/2017 08/29/2017 Inactive Generic For:XANAX 1M G 10/11/2016 11:15:13 AM Xanax 1 mg tablet RxNorm: 026919 1-2 Tablet(s) PO QHS as needed for sleep 08/01/2017 08/29/2017 Inactive Generic For:XANAX 1M G 10/11/2016 11:15:13 AM Xanax 1 mg tablet RxNorm: 589217 1-2 Tablet(s) PO QHS as needed for sleep 06/29/2017 2017 Inactive Generic For:XANAX 1M G 10/11/2016 11:15:13 AM Claritin-D 24 Hour 10 mg-240 mg tablet,extended release RxNo rm: 0714592 1 Tablet(s) PO QD 06/29/2017 2017 Inactive levothyroxine 88 mcg tablet RxNorm: 846067 1 Tablet(s) PO QD 201709/10/2017 Inactive Xanax 1 mg tablet RxNorm: 863272 1-2 Tablet(s) PO QHS as needed for sleep 05/26/2017 06/28/2017 Inactive Generic For:XANAX 1M G 10/11/2016 11:15:13 AM Claritin-D 24 Hour 10 mg-240 mg tablet,extended release RxNo rm: 9654853 1 Tablet(s) PO QD 05/26/2017 06/24/2017 Inactive bupropion HCl SR 100 mg tablet,12 hr sustained-release RxNor m: 135974 Tablet(s) Take 1 tablet by mouth two times daily 04/06/2017 12/31/2017 Inactive - Ref: [id number] Xanax 1 mg tablet RxNorm: 548532 1-2 Tablet(s) PO QHS as needed for sleep 03/24/2017 05/22/2017 Inactive Generic For:XANAX 1M G 10/11/2016 11:15:13 AM Medrol (Walter) 4 mg tablets in a dose pack RxNorm: 138238 Tablet(s) P O 02/16/2017 03/27/2017 Inactive Xanax 1 mg tablet RxNorm: 223606 Tablet(s) TAKE ONE T O TWO TABLETS BY MOUTH AT BEDTIME NEEDED 02/16/2017 03/17/2017 Inactive Generic For:XA NAX 1MG 10/11/2016 11:15:13 AM Claritin-D 24 Hour 10 mg-240 mg tablet,extended release RxNo rm: 6538912 1 Tablet(s) PO QD 02/16/2017 04/16/2017 Inactive cefdinir 300 mg capsule RxNorm: 367762 2 Capsule(s) PO QD 02/16/2017 02/25/2017 Inactive Celexa 40 mg tablet RxNorm: 997873 Tablet(s) Take 1 tablet by m outh daily 12/23/2016 09/18/2017 Inactive - Ref: [id number] Xanax 1 mg tablet RxNorm: 060905 Tablet(s) TAKE ONE T O TWO TABLETS BY MOUTH AT BEDTIME NEEDED 12/16/2016 01/14/2017 Inactive Generic For:XA NAX 1MG 10/11/2016 11:15:13 AM Xanax 1 mg tablet RxNorm: 551885 Tablet(s) TAKE ONE T O TWO TABLETS BY MOUTH AT BEDTIME NEEDED 11/18/2016 12/15/2016 Inactive Generic For:XA NAX 1MG 10/11/2016 11:15:13 AM Xanax 1 mg tablet RxNorm: 837418 TAKE ONE TO TWO TABL ETS BY MOUTH AT BEDTIME NEEDED 10/11/2016 11/17/2016 Inactive Generic For:XANA X 1MG 10/11/2016 11:15:13 AM Mobic 15 mg tablet RxNorm: 893318 1 Tablet(s) PO QD 09/06/20162016 Inactive Claritin-D 24 Hour 10 mg-240 mg tablet,extended release RxNo rm: 1496649 1 Tablet(s) PO QD 09/02/2016 11/30/2016 Inactive prednisone 20 mg tablet RxNorm: 128279 1 Tablet(s) PO T ID for 3 days then 1 po BID for 3 days then one daily for 3 days 08/16/2016 03/27/2017 Inactiv e cefdinir 300 mg capsule RxNorm: 549720 2 Capsule(s) PO QD 08/16/2016 09/05/2016 Inactive Xanax 1 mg tablet RxNorm: 992139 TAKE ONE TO TWO TABL ETS BY MOUTH AT BEDTIME NEEDED 08/05/2016 10/11/2016 Inactive Generic For:XANA X 1MG 08/05/2016 2:27:03 PM08/04/2016 4:15:22 PM Singulair 10 mg tablet RxNorm: 627606 1 Tablet(s) PO QHS 07/06/2016 0 09/03/2016 Inactive prednisone 20 mg tablet RxNorm: 297290 1 Tablet(s) PO T ID for 3 days then 1 po BID for 3 days then one daily for 3 days 06/15/2016 07/05/2016 Inactiv e Singulair 10 mg tablet RxNorm: 930649 1 Tablet(s) PO QHS 06/15/2016 0 07/05/2016 Inactive cefdinir 300 mg capsule RxNorm: 740682 2 Capsule(s) PO QD 06/15/2016 07/05/2016 Inactive Xanax 1 mg tablet RxNorm: 656982 1-2 Tablet(s) PO QHS 05/21/201610/2016 Inactive Claritin-D 24 Hour 10 mg-240 mg tablet,extended release RxNo rm: 2499620 1 Tablet(s) PO QD 04/09/2016 07/07/2016 Inactive Xanax 1 mg tablet RxNorm: 385087 1-2 Tablet(s) PO QHS 03/23/201604/29 Inactive levothyroxine 88 mcg tablet RxNorm: 539359 1 Tablet(s) PO QD 201606/13/2017 Inactive bupropion HCl SR 100 mg tablet,sustained-release RxNorm: 993 503 Take 1 tablet by mouth two times daily 03/15/2016 12/09/2016 Inactive - Ref: 20 [id number] Celexa 40 mg tablet RxNorm: 893338 Take 1 tablet by mouth daily 12/23/2016 Inactive - Ref: [id number] Xanax 1 mg tablet RxNorm: 470249 1-2 Tablet(s) PO QHS 02/17/201603/01 Inactive levothyroxine 88 mcg tablet RxNorm: 368884 1 Tablet(s) PO QD 201502/22/2016 Inactive Xanax 1 mg tablet RxNorm: 611246 1-2 Tablet(s) PO QHS 11/25/201511/29 Inactive levothyroxine 88 mcg tablet RxNorm: 351088 1 Tablet(s) PO QD 201511/24/2015 Inactive temazepam 30 mg capsule RxNorm: 141163 1 Capsule(s) PO QHS 11/13/19 16 11/24/2015 Inactive Xanax 1 mg tablet RxNorm: 787321 1-2 Tablet(s) PO QHS 09/15/201510/29 Inactive Celexa 40 mg tablet RxNorm: 244850 1 Tablet(s) PO QD 1 Tablet(s ) PO QD 09/10/2015 09/16/2015 Inactive bupropion HCl SR 100 mg tablet,sustained-release RxNorm: 993 503 1 Tablet(s) PO BID 09/10/2015 09/23/2015 Inactive Xanax 1 mg tablet RxNorm: 708981 1-2 Tablet(s) PO QHS 09/10/201508/28 Inactive Xanax 1 mg tablet RxNorm: 718768 1-2 Tablet(s) PO QHS 08/11/201508/28 Inactive cyclobenzaprine 10 mg tablet RxNorm: 400580 1 Tablet(s) PO TID prn spasm 07/09/2015 11/23/2018 Inactive Celexa 40 mg tablet RxNorm: 094011 1 Tablet(s) PO QD 06/06/201508/03 Inactive Xanax 1 mg tablet RxNorm: 323893 1-2 Tablet(s) PO QHS 06/04/201505/2015 Inactive levothyroxine 88 mcg tablet RxNorm: 326364 1 Tablet(s) PO QD 201511/23/2015 Inactive Ceftin 500 mg tablet RxNorm: 828191 1 Tablet(s) PO BID 05/05/2015 Inactive Ceftin 500 mg tablet RxNorm: 683845 1 Tablet(s) PO BID 05/05/201507/2015 Inactive meloxicam 15 mg tablet RxNorm: 641216 1 Tablet(s) PO QD 04/16/2015 Inactive meloxicam 15 mg tablet RxNorm: 725401 1 Tablet(s) PO QD 04/16/2015 Inactive diclofenac sodium 75 mg tablet,delayed release RxNorm: 33391 6 1 Tablet(s) PO BID 04/04/2015 04/15/2015 Inactive diclofenac sodium 75 mg tablet,delayed release RxNorm: 16493 6 1 Tablet(s) PO BID 04/04/2015 04/03/2015 Inactive Tivorbex 40 mg capsule RxNorm: 4181779 1 Capsule(s) PO TID 03/24/19 16 04/02/2015 Inactive bupropion HCl SR 100 mg tablet,sustained-release RxNorm: 993 503 1 Tablet(s) PO BID 03/11/2015 09/06/2015 Inactive cyclobenzaprine 10 mg tablet RxNorm: 252706 1 Tablet(s) PO TID prn spasm 03/11/2015 07/08/2015 Inactive levothyroxine 88 mcg tablet RxNorm: 199046 1 Tablet(s) PO QD 201405/27/2015 Inactive Claritin-D 24 Hour 10 mg-240 mg tablet,extended release RxNo rm: 4680652 1 Tablet(s) PO QD 02/27/2015 05/27/2015 Inactive cefuroxime axetil 500 mg tablet RxNorm: 969602 1 Tablet(s) PO BID 1 03/12/2015 Inactive Celexa 40 mg tablet RxNorm: 874428 1 Tablet(s) PO QD 02/05/201504/05 Inactive levothyroxine 75 mcg tablet RxNorm: 783232 1 Tablet(s) PO QD 201402/26/2015 Inactive Celexa 40 mg tablet RxNorm: 897709 1 Tablet(s) PO QD 10/09/201402/04 Inactive Activella 1 mg-0.5 mg tablet RxNorm: 7848711 1 Tablet(s) PO QD 08/2802/26/2015 Inactive bupropion HCl SR 100 mg tablet,sustained-release RxNorm: 993 503 1 Tablet(s) PO BID 09/12/2014 03/10/2015 Inactive levothyroxine 75 mcg tablet RxNorm: 564704 1 Tablet(s) PO QD 201412/09/2014 Inactive levothyroxine 75 mcg tablet RxNorm: 299834 1 Tablet(s) PO QD 201409/11/2014 Inactive Celexa 40 mg tablet RxNorm: 003448 1 Tablet(s) PO QD 08/12/201410/08 Inactive Xanax 1 mg tablet RxNorm: 683891 1-2 Tablet(s) PO QHS 08/12/201409/28 Inactive Claritin-D 24 Hour 10 mg-240 mg tablet,extended release RxNo rm: 5399561 1 Tablet(s) PO QD 06/13/2014 09/10/2014 Inactive cyclobenzaprine 10 mg tablet RxNorm: 474313 1 Tablet(s) PO TID prn spasm 06/12/2014 02/26/2015 Inactive Xanax 1 mg tablet RxNorm: 469944 1-2 Tablet(s) PO QHS 05/09/201406/28 Inactive levothyroxine 75 mcg tablet RxNorm: 770124 1 Tablet(s) PO QD 201407/08/2014 Inactive cephalexin 500 mg capsule RxNorm: 628196 1 Capsule(s) PO QOD 201402/26/2015 Inactive simvastatin 10 mg tablet RxNorm: 912927 1 Tablet(s) PO QHS 04/10/19 15 06/12/2014 Inactive Xanax 1 mg tablet RxNorm: 254090 1-2 Tablet(s) PO QHS 04/10/201404/28 Inactive levothyroxine 75 mcg tablet RxNorm: 646115 1 Tablet(s) PO QD 201404/09/2014 Inactive levothyroxine 75 mcg capsule RxNorm: 203924 1 Capsule(s) PO QD 03/3104/10/2014 Inactive Activella 1 mg-0.5 mg tablet RxNorm: 4880043 1 Tablet(s) PO QD 03/0109/11/2014 Inactive bupropion HCl SR 100 mg tablet,sustained-release RxNorm: 993 503 1 Tablet(s) PO BID 03/04/2014 08/30/2014 Inactive Activella 1 mg-0.5 mg tablet RxNorm: 9242584 1 Tablet(s) PO QD 01/2803/18/2014 Inactive levothyroxine 75 mcg capsule RxNorm: 930702 1 Capsule(s) PO QD 12/2904/08/2014 Inactive simvastatin 10 mg tablet RxNorm: 920060 1 Tablet(s) PO QHS 01/10/20 14 04/08/2014 Inactive cyclobenzaprine 10 mg tablet RxNorm: 908423 1 Tablet(s) PO TID prn spasm 01/09/2014 04/08/2014 Inactive Cipro 500 mg tablet RxNorm: 397563 1 Tablet(s) PO BID 12/25/201304/2013 Inactive Cipro 500 mg tablet RxNorm: 871578 1 Tablet(s) PO BID 12/25/201311/29 Inactive bupropion HCl SR 100 mg tablet,sustained-release RxNorm: 993 503 1 Tablet(s) PO QAM 12/11/2013 03/03/2014 Inactive cephalexin 500 mg capsule RxNorm: 973760 1 Capsule(s) PO QOD 201304/09/2014 Inactive Xanax 1 mg tablet RxNorm: 919008 1-2 Tablet(s) PO QHS 10/15/201310/29 Inactive simvastatin 10 mg tablet RxNorm: 629425 1 Tablet(s) PO QHS 10/11/19 14 01/07/2014 Inactive Celexa 40 mg tablet RxNorm: 847228 Tablet(s) PO TAKE 1 TABLET BY MOUTH ONCE DAILY. 09/18/2013 09/17/2013 Inactive Xanax 1 mg tablet RxNorm: 276668 1-2 Tablet(s) PO QHS 08/13/201308/28 Inactive simvastatin 10 mg tablet RxNorm: 868945 1 Tablet(s) PO QHS 07/12/19 14 10/08/2013 Inactive bupropion HCl SR 100 mg tablet,sustained-release RxNorm: 993 503 1 Tablet(s) PO QAM 05/22/2013 11/17/2013 Inactive Pamelor 10 mg capsule RxNorm: 243445 1 Capsule(s) PO QHS for PLATA /sleep 05/22/2013 06/04/2013 Inactive Xanax 1 mg tablet RxNorm: 736883 1-2 Tablet(s) PO QHS 05/15/201305/29 Inactive Pamelor 10 mg capsule RxNorm: 476320 1 Capsule(s) PO QHS for PLATA /sleep 05/15/2013 05/21/2013 Inactive Xanax 1 mg tablet RxNorm: 334905 1 Tablet(s) PO QHS 04/27/20132013 Inactive Zovirax 800 mg tablet RxNorm: 549136 1 Tablet(s) PO TID 04/05/2013 Inactive Xanax 1 mg tablet RxNorm: 351157 1 Tablet(s) PO QHS 04/03/2013 No Sto p Date Active bupropion HCl SR 100 mg tablet,sustained-release RxNorm: 993 503 1 Tablet(s) PO QAM 03/26/2013 05/21/2013 Inactive bupropion HCl SR 100 mg tablet,sustained-release RxNorm: 993 503 1 Tablet(s) PO QAM 03/06/2013 03/25/2013 Inactive Pamelor 10 mg capsule RxNorm: 637573 1 Capsule(s) PO QHS for PLATA /sleep 02/14/2013 05/14/2013 Inactive levothyroxine 75 mcg capsule RxNorm: 693949 1 Capsule(s) PO QD 12/2901/08/2014 Inactive simvastatin 10 mg tablet RxNorm: 585166 1 Tablet(s) PO QHS TAKE 1 TABLET BY MOUTH ONCE DAILY AT BEDTIME. 01/15/2013 07/10/2013 Inactive cyclobenzaprine 10 mg tablet RxNorm: 207483 1 Tablet(s) PO TID prn spasm 12/25/2012 06/22/2013 Inactive Pamelor 10 mg capsule RxNorm: 795611 1 Capsule(s) PO QHS for PLATA /sleep 11/29/2012 02/14/2013 Inactive Celexa 40 mg tablet RxNorm: 120421 Tablet(s) PO TAKE 1 TABLET BY MOUTH ONCE DAILY. 10/11/2012 09/17/2013 Inactive simvastatin 10 mg tablet RxNorm: 488160 Tablet(s) PO TA KE 1 TABLET BY MOUTH ONCE DAILY AT BEDTIME. 10/11/2012 01/14/2013 Inactive simvastatin 10 mg tablet RxNorm: 917404 1 Tablet(s) PO QD 07/11/2012 10/08/2012 Inactive simvastatin 10 mg tablet RxNorm: 295897 1 Tablet(s) PO QD 04/14/2012 07/11/2012 Inactive simvastatin 10 mg tablet RxNorm: 565098 1 Tablet(s) PO QD 04/14/2012 04/13/2012 Inactive Celexa 40 mg tablet RxNorm: 654521 1 Tablet(s) PO QD 03/15/201209/10 Inactive cyclobenzaprine 10 mg tablet RxNorm: 594211 1 Tablet(s) PO TID prn spasm 02/02/2012 02/01/2012 Inactive cyclobenzaprine 10 mg tablet RxNorm: 378018 1 Tablet(s) PO TID prn spasm 02/02/2012 07/30/2012 Inactive Diflucan 100 mg Tab RxNorm: 637293 1 Tablet(s) PO QD 08/17/201108/22 Inactive Cipro 250 mg Tab RxNorm: 934706 1 Tablet(s) PO QD 08/17/2011 10/15/19 12 Inactive Levaquin 500 mg Tab RxNorm: 626110 1 Tablet(s) PO QD 08/17/201108/22 Inactive Pyridium 200 mg Tab RxNorm: 1316689 1 Tablet(s) PO TID 10/14/2010 Inactive may turn urine orange-red color. Cipro 500 mg Tab RxNorm: 448231 1 Tablet(s) PO BID 10/14/2010 011 Inactive levothyroxine 75 mcg capsule RxNorm: 555564 1 Capsule(s) PO QD 12/3001/14/2011 Inactive Vitamin D3 5,000 unit tablet RxNorm: 088504 1 Tablet(s) PO QD No Star t Date Active Nasacort 55 mcg nasal spray aerosol RxNorm: 2640804 2 Sp ray NASAL each nostril QHS No Start Date Active cyclobenzaprine 10 mg tablet RxNorm: 235871 1 Tablet(s) PO TID as needed No Start Date 11/22/2018 Inactive Vitamin D2 1,000 unit capsule RxNorm: 542607 3 Capsule(s) PO QD No Start Date 11/16/2017 Inactive diclofenac sodium 75 mg tablet,delayed release RxNorm: 17286 6 1 Tablet(s) PO BID No Start Date 03/16/2016 Inactive cephalexin 500 mg capsule RxNorm: 285721 1 Capsule(s) PO QOD No Sta rt Date 12/04/2013 Inactive cyclobenzaprine 10 mg tablet RxNorm: 397680 1 Tablet(s) PO QHS No S tart Date 02/01/2012 Inactive loratadine 10 mg tablet RxNorm: 496989 1 Tablet(s) PO QHS No Start Date 05/14/2019 Inactive hydrocodone 5 mg-acetaminophen 500 mg tablet RxNorm: 733627 1 -2 Tablet(s) PO Q6H as needed No Start Date 08/09/2018 Inactive etodolac 400 mg tablet RxNorm: 402247 1 Tablet(s) PO TID No Start D ate 09/17/2018 Inactive Xanax 1 mg tablet RxNorm: 349151 1 Tablet(s) PO QHS No Start Date 04/2013 Inactive Vitamin D3 1,000 unit capsule RxNorm: 373185 1 Capsule(s) PO QD No Start Date 06/12/2014 Inactive estradiol 2 mg tablet RxNorm: 866969 1/2 Tablet(s) PO QD No Start D ate 03/05/2013 Inactive Celexa 40 mg tablet RxNorm: 541456 1 Tablet(s) PO QD No Start Date Inactive Activella 1 mg-0.5 mg tablet RxNorm: 3245309 1 Tablet(s) PO QD No S tart Date 07/10/2012 Inactive medroxyprogesterone 5 mg tablet RxNorm: 7842402 1/2 Tablet(s) PO QD No Start Date 03/05/2013 Inactive levothyroxine 88 mcg tablet RxNorm: 908195 1 Tablet(s) PO QD No Sta rt Date 02/26/2015 Inactive Keflex 500 mg capsule RxNorm: 477277 1 Capsule(s) PO PRN No Start D ate 08/16/2011 Inactive Activella 1 mg-0.5 mg tablet RxNorm: 9663715 1 Tablet(s) PO QHS No Start Date 03/27/2017 Inactive Activella 1 mg-0.5 mg tablet RxNorm: 9992941 1 Tablet(s) PO QD No S tart Date 02/06/2014 Inactive Flexeril 10 mg Tab RxNorm: 641341 1 Tablet(s) PO TID No Start Date Inactive prn spasm simvastatin 10 mg tablet RxNorm: 921224 1 Tablet(s) PO QD No Start Date 04/13/2012 Inactive Medication Administered No Medication Administered data Immunizations Vaccine Codes Date Status Influenza CVX: 135 01/16/2019 Complete Pneumococcal CVX: 133 01/16/2019 Complete Results No Results data Procedures Procedure Codes Date URINE CULTURE/ COLONY COUNT CPT-4: 15211 07/26/2019 URINALYSIS NONAUTO W/O SCOPE CPT-4: 16711 07/17/2019 URINE CULTURE/ COLONY COUNT CPT-4: 16747 07/17/2019 DEXAMETHASONE SODIUM PHOS CPT-4: J1100 05/14/2019 THER/PROPH/DIAG INJ SC/IM CPT-4: 82397 05/14/2019 TRIAMCINOLONE ACET INJ NOS CPT-4: J3301 05/14/2019 FLU VACC PRSV FREE INC ANTIG 65 AND OLDER CPT-4: 61648 01/16/2019 FLU VACC PRSV FREE INC ANTIG 65 AND OLDER CPT-4: 53133 01/16/2019 PNEUMOCOCCAL VACC 13 NARESH IM CPT-4: 57851 01/16/2019 SKIN FUNGI CULTURE CPT-4: 40107 01/16/2019 IMMUNIZATION ADMIN CPT-4: 43007 01/16/2019 IMMUNIZATION ADMIN EACH ADD CPT-4: 07548 01/16/2019 THER/PROPH/DIAG INJ SC/IM CPT-4: 27448 01/17/2018 KETOROLAC TROMETHAMINE INJ CPT-4: J1885 01/17/2018 THER/PROPH/DIAG INJ SC/IM CPT-4: 04522 01/17/2018 PROMETHAZINE HCL INJECTION CPT-4: J2550 01/17/2018 URINALYSIS NONAUTO W/O SCOPE CPT-4: 91609 12/29/2017 URINE CULTURE/ COLONY COUNT CPT-4: 44149 12/29/2017 THER/PROPH/DIAG INJ SC/IM CPT-4: 69774 11/30/2017 TRIAMCINOLONE ACET INJ NOS CPT-4: J3301 11/30/2017 DEXAMETHASONE SODIUM PHOS CPT-4: J1100 11/30/2017 CEFTRIAXONE SODIUM INJECTION CPT-4: J0696 11/29/2017 THER/PROPH/DIAG INJ SC/IM CPT-4: 22829 11/29/2017 CEFTRIAXONE SODIUM INJECTION CPT-4: J0696 11/28/2017 THER/PROPH/DIAG INJ SC/IM CPT-4: 63792 11/28/2017 URINALYSIS NONAUTO W/O SCOPE CPT-4: 22560 10/10/2017 THER/PROPH/DIAG INJ SC/IM CPT-4: 46611 10/10/2017 TRIAMCINOLONE ACET INJ NOS CPT-4: J3301 10/10/2017 DEXAMETHASONE SODIUM PHOS CPT-4: J1100 10/10/2017 CEFTRIAXONE SODIUM INJECTION CPT-4: J0696 10/10/2017 THER/PROPH/DIAG INJ SC/IM CPT-4: 93255 10/10/2017 URINE CULTURE/ COLONY COUNT CPT-4: 27436 10/10/2017 THER/PROPH/DIAG INJ SC/IM CPT-4: 62163 11/02/2016 KETOROLAC TROMETHAMINE INJ CPT-4: J1885 11/02/2016 THER/PROPH/DIAG INJ SC/IM CPT-4: 98101 06/15/2016 TRIAMCINOLONE ACET INJ NOS CPT-4: J3301 06/15/2016 DEXAMETHASONE SODIUM PHOS CPT-4: J1100 06/15/2016 THER/PROPH/DIAG INJ SC/IM CPT-4: 85247 04/09/2016 KETOROLAC TROMETHAMINE INJ CPT-4: J1885 04/09/2016 PROMETHAZINE HCL INJECTION CPT-4: J2550 04/09/2016 EXC TR-EXT B9+ERASMO 0.5 CM< CPT-4: 19289 06/12/2015 URINALYSIS NONAUTO W/O SCOPE CPT-4: 89725 05/05/2015 URINE CULTURE/ COLONY COUNT CPT-4: 50151 05/05/2015 URINALYSIS NONAUTO W/O SCOPE CPT-4: 88259 03/24/2015 URINALYSIS NONAUTO W/O SCOPE CPT-4: 21831 02/27/2015 URINE CULTURE/ COLONY COUNT CPT-4: 08540 02/27/2015 THER/PROPH/DIAG INJ SC/IM CPT-4: 78084 04/18/2014 KETOROLAC TROMETHAMINE INJ CPT-4: J1885 04/18/2014 THER/PROPH/DIAG INJ SC/IM CPT-4: 10307 06/05/2013 TRIAMCINOLONE ACET INJ NOS CPT-4: J3301 06/05/2013 THER/PROPH/DIAG INJ SC/IM CPT-4: 39468 11/29/2012 KETOROLAC TROMETHAMINE INJ CPT-4: J1885 11/29/2012 URINALYSIS NONAUTO W/O SCOPE CPT-4: 34600 07/11/2012 URINE CULTURE/ COLONY COUNT CPT-4: 47655 07/11/2012 OCCULT BLOOD FECES CPT-4: 62220 02/17/2012 URINALYSIS NONAUTO W/O SCOPE CPT-4: 29833 08/27/2011 URINE CULTURE/ COLONY COUNT CPT-4: 72429 08/27/2011 URINALYSIS NONAUTO W/O SCOPE CPT-4: 02181 08/17/2011 URINE CULTURE/ COLONY COUNT CPT-4: 26454 08/17/2011 URINALYSIS NONAUTO W/O SCOPE CPT-4: 88314 12/28/2010 URINE CULTURE/ COLONY COUNT CPT-4: 39314 12/28/2010 URINALYSIS NONAUTO W/O SCOPE CPT-4: 55871 11/09/2010 URINE CULTURE/ COLONY COUNT CPT-4: 18840 11/09/2010 URINALYSIS NONAUTO W/O SCOPE CPT-4: 40319 10/29/2010 URINE CULTURE/ COLONY COUNT CPT-4: 89904 10/29/2010 URINE CULTURE/ COLONY COUNT CPT-4: 20836 10/14/2010 URINALYSIS NONAUTO W/O SCOPE CPT-4: 86397 10/14/2010 Vital Signs Date Vital 07/17/2019 Blood [...] 1: 122/74 Code: 8480-6 BMI: 22.0 Code: 80581-9 Heart Rate 1: 72 bpm Height: 5'3" [...] 1: 126/72 Code: 8480-6 BMI: 22.7 Code: 96408-1 Heart Rate 1: 72 bpm Height: 5'3" [...] 1: 112/70 Code: 8480-6 BMI: 22.0 Code: 47123-6 Heart Rate 1: 80 bpm Height: 5'3" [...] 1: 122/64 Code: 8480-6 BMI: 21.4 Code: 01091-2 Heart Rate 1: 88 bpm Height: 5'3" Respiratory Rate: 22 bpm SpO2: 96% Tempera ture: 36.8 (C) / 98.2 (F) Weight: 121 lbs 06/22/2017 Blood Pressure 1: 124/78 Code: 8480-6 BMI: 21.6 Code: 74319-3 Heart Rate 1: 76 bpm Height: 5'3" Respiratory Rate: 20 bpm Temperature: 36 .8 (C) / 98.3 (F) Weight: 122 lbs 03/28/2017 Blood Pressure 1: 92/60 Code: 8480-6 BMI: 20.4 C ode: 72617-1 Heart Rate 1: 72 bpm Height: 5'3" Respiratory Rate: 20 bpm Temperature: 36 .9 (C) / 98.4 (F) Weight: 115 lbs 02/16/2017 Blood Pressure 1: 106/70 Code: 8480-6 BMI: 21.3 Code: 16459-7 Heart Rate 1: 82 bpm Height: 5'3" Respiratory Rate: 22 bpm SpO2: 97% Tempera ture: 36.1 (C) / 97.0 (F) Weight: 120 lbs 09/06/2016 Blood Pressure 1: 118/64 Code: 8480-6 BMI: 22.7 Code: 28036-1 Heart Rate 1: 78 bpm Height: 5'3" Respiratory Rate: 20 bpm SpO2: 98% Tempera ture: 36.2 (C) / 97.2 (F) Weight: 128 lbs 08/16/2016 Blood Pressure 1: 118/78 Code: 8480-6 BMI: 22.1 Code: 27517-7 Heart Rate 1: 78 bpm Height: 5'3" Respiratory Rate: 20 bpm SpO2: 97% Tempera ture: 36.2 (C) / 97.1 (F) Weight: 125 lbs 07/19/2016 Blood Pressure 1: 116/68 Code: 8480-6 BMI: 22.5 Code: 49169-2 Heart Rate 1: 76 bpm Height: 5'3" Respiratory Rate: 20 bpm Temperature: 36 .8 (C) / 98.2 (F) Weight: 127 lbs 07/06/2016 Blood Pressure 1: 106/70 Code: 8480-6 BMI: 22.5 Code: 28597-0 Heart Rate 1: 72 bpm Height: 5'3" Respiratory Rate: 20 bpm SpO2: 97% Tempera ture: 36.8 (C) / 98.2 (F) Weight: 127 lbs 06/15/2016 Blood Pressure 1: 136/76 Code: 8480-6 BMI: 22.9 Code: 09479-2 Heart Rate 1: 74 bpm Height: 5'3" Respiratory Rate: 18 bpm SpO2: 98% Tempera ture: 36.4 (C) / 97.6 (F) Weight: 129 lbs 04/09/2016 Blood Pressure 1: 124/78 Code: 8480-6 BMI: 23.0 Code: 19394-7 Heart Rate 1: 86 bpm Height: 5'3" Respiratory Rate: 20 bpm SpO2: 96% Tempera ture: 36.5 (C) / 97.7 (F) Weight: 130 lbs 03/17/2016 Blood Pressure 1: 116/74 Code: 8480-6 BMI: 23.4 Code: 06946-5 Heart Rate 1: 84 bpm Height: 5'3" Respiratory Rate: 20 bpm SpO2: 97% Tempera ture: 36.8 (C) / 98.3 (F) Weight: 132 lbs 11/13/2015 Blood Pressure 1: 124/78 Code: 8480-6 BMI: 23.4 Code: 73399-3 Heart Rate 1: 88 bpm Height: 5'3" Respiratory Rate: 24 bpm SpO2: 98% Tempera ture: 36.8 (C) / 98.2 (F) Weight: 132 lbs 06/12/2015 Blood Pressure 1: 126/78 Code: 8480-6 BMI: 23.6 Code: 26795-9 Heart Rate 1: 80 bpm Height: 5'3" Respiratory Rate: 20 bpm Temperature: 36 .9 (C) / 98.4 (F) Weight: 133 lbs 04/22/2015 Blood Pressure 1: 126/68 Code: 8480-6 BMI: 23.6 Code: 68314-1 Heart Rate 1: 80 bpm Height: 5'3" Respiratory Rate: 20 bpm Temperature: 36 .6 (C) / 97.9 (F) Weight: 133 lbs 03/24/2015 Blood Pressure 1: 116/66 Code: 8480-6 BMI: 22.9 Code: 93628-0 Heart Rate 1: 74 bpm Height: 5'3" Respiratory Rate: 20 bpm Temperature: 36 .4 (C) / 97.6 (F) Weight: 129 lbs 02/27/2015 Blood Pressure 1: 106/64 Code: 8480-6 BMI: 22.7 Code: 74451-9 Heart Rate 1: 74 bpm Height: 5'3" Respiratory Rate: 20 bpm Temperature: 36 .8 (C) / 98.2 (F) Weight: 128 lbs 06/13/2014 Blood Pressure 1: 104/66 Code: 8480-6 BMI: 22.7 Code: 30607-1 Heart Rate 1: 84 bpm Height: 5'3" Respiratory Rate: 20 bpm Temperature: 37 .0 (C) / 98.6 (F) Weight: 128 lbs 04/18/2014 Blood Pressure 1: 112/62 Code: 8480-6 BMI: 22.0 Code: 56413-4 Heart Rate 1: 82 bpm Height: 5'3" Respiratory Rate: 18 bpm Temperature: 36 .4 (C) / 97.6 (F) Weight: 124 lbs 12/05/2013 Blood Pressure 1: 106/70 Code: 8480-6 BMI: 23.7 Code: 64371-8 Heart Rate 1: 84 bpm Height: 5'3" [...] 1: 126/88 Code: 8480-6 BMI: 22.3 Code: 45194-1 Heart Rate 1: 96 bpm Height: 5'4" Respiratory Rate: 20 bpm Temperature: 37 .7 (C) / 99.9 (F) Weight: 130 lbs 11/29/2012 Blood Pressure 1: 122/76 Code: 8480-6 BMI: 23.0 Code: 38953-3 Heart Rate 1: 84 bpm Height: 5'4" Respiratory Rate: 20 bpm Temperature: 36 .9 (C) / 98.4 (F) Weight: 134 lbs 09/26/2012 Blood Pressure 1: 114/76 Code: 8480-6 BMI: 23.0 Code: 56377-5 Heart Rate 1: 84 bpm Height: 5'4" Respiratory Rate: 20 bpm Temperature: 37 .3 (C) / 99.1 (F) Weight: 134 lbs 07/11/2012 Blood Pressure 1: 126/78 Code: 8480-6 BMI: 23.7 Code: 73261-0 Heart Rate 1: 76 bpm Height: 5'4" Respiratory Rate: 20 bpm Temperature: 37 .1 (C) / 98.7 (F) Weight: 138 lbs 02/02/2012 Blood Pressure 1: 108/70 Code: 8480-6 BMI: 23.2 Code: 22209-3 Heart Rate 1: 88 bpm Height: 5'4" Respiratory Rate: 20 bpm Temperature: 36 .4 (C) / 97.6 (F) Weight: 135 lbs 08/17/2011 Blood Pressure 1: 108/70 Code: 8480-6 BMI: 23.2 Code: 04186-7 Heart Rate 1: 72 bpm Height: 5'4" Respiratory Rate: 20 bpm Temperature: 36 .8 (C) / 98.2 (F) Weight: 135 lbs 10/14/2010 Blood Pressure 1: 120/72 Code: 8480-6 BMI: 23.4 Code: 20633-1 Heart Rate 1: 78 bpm Height: 5'3" [...] Diagnosis: Urinary tract infection[ICD10: N39.0] Alexandra CARROLL [employer] CPT-4: 71025 07/26/2019 ([id number]) OFFICE/OUTPATIENT VISIT EST Diagnosis: Urinary tract infection, site not specified[ICD10: N39.0] Diagnosis: Dysuria[ICD10: R30.0] Vandana CARROLL DO [facility] CPT-4: 71226 07/17/2019 ([id number]) OFFICE/OUTPATIENT VISIT EST Diagnosis: Allergic dermatitis[ICD10: L23.9] Alexandra CARROLL [employer] CPT-4: 71524 06/26/2019 ([id number]) OFFICE/OUTPATIENT VISIT EST Diagnosis: Contact dermatitis due to plant[ICD10: L25.5] Diagnosis: Cellulitis of left arm[ICD10: L03.114] Vandana CARROLL [employer] CPT-4: 28971 05/14/2019 ([id number]) OFFICE/OUTPATIENT VISIT EST Diagnosis: Ventral hernia[ICD10: K43.9] Diagnosis: Incisional hernia[ICD10: K43.2] Alexandra CARROLL DO [employer] CPT-4: 54086 04/10/2019 ([id number]) OFFICE/OUTPATIENT VISIT EST Diagnosis: Insomnia[ICD10: G47.00] Diagnosis: Thrombocytosis[ICD10: D47.3] Alexandra CARROLL [employer] CPT-4: 68155 02/14/2019 ([id number]) OFFICE/OUTPATIENT VISIT EST Diagnosis: Small bowel obstruction[ICD10: K56.609] Diagnosis: FLU VACCINE[ICD10: Z23] Diagnosis: PNEUMOCOCCAL VACCINE[ICD10: Z23] Diagnosis: Onychomycosis[ICD10: B35.1] Alexandra KUNZ [facility] CPT-4: 71482 01/16/2019 ([id number]) OFFICE/OUTPATIENT VISIT EST Diagnosis: Diarrhea, unspecified[ICD10: R19.7] Diagnosis: Radiculopathy, lumbosacral region[ICD10: M54.17] Alexandra CARROLL [facility] CPT-4: 97784 09/18/2018 OFFICE/OUTPATIENT VISIT EST Diagnosis: Other intervertebral disc degeneration, lumbar region[ICD10: M51.36] Diagnosis: Sacroiliitis, not elsewhere classified[ICD10: M46.1] Diagnosis: Obstructive sleep apnea (adult) (pediatric)[ICD10: G47.33] [facility]: 08204 08/10/2018 ([id number]) OFFICE/OUTPATIENT VISIT EST Diagnosis: Fracture of unspecified part of left clavicle, subsequent encounter for fracture with routine healing[ICD10: S42.002D] Diagnosis: Cervicalgia[ICD10: M54.2] Diagnosis: Radiculopathy, lumbosacral region[ICD10: M54.17] Alexandra CARROLL [facility] CPT-4: 18838 03/27/2018 ([id number]) OFFICE/OUTPATIENT VISIT EST Diagnosis: Fracture of unspecified part of left clavicle, subsequent encounter for fracture with routine healing[ICD10: S42.002D] Diagnosis: Other intervertebral disc degeneration, lumbar region[ICD10: M51.36] Diagnosis: Unspecified fracture of first thoracic vertebra, subsequent encounter for fracture with routine healing[ICD10: S22.019D] Diagnosis: Unspecified fracture of second thoracic vertebra, subsequent encounter for fracture with routine healing[ICD10: S22.029D] [facility]: 33924 02/23/2018 ([id number]) OFFICE/OUTPATIENT VISIT EST Diagnosis: Fracture of unspecified part of left clavicle, subsequent encounter for fracture with routine healing[ICD10: S42.002D] Diagnosis: Unspecified fracture of first thoracic vertebra, subsequent encounter for fracture with routine healing[ICD10: S22.019D] Diagnosis: Unspecified fracture of second thoracic vertebra, subsequent encounter for fracture with routine healing[ICD10: S22.029D] Alexandra CARROLL [facility] CPT-4: 86956 01/24/2018 ([id number]) OFFICE/OUTPATIENT VISIT EST Diagnosis: Migraine, unspecified, not intractable, without status migrainosus[ICD10: G43.909] Alexandra CARROLL [facility] CPT - 4: 13583 01/17/2018 ([id number]) OFFICE/OUTPATIENT VISIT EST Diagnosis: Hematuria, unspecified[ICD10: R31.9] Diagnosis: Other intervertebral disc degeneration, lumbar region[ICD10: M51.36] Diagnosis: Retention of urine, unspecified[ICD10: R33.9] Alexandra Danegina Crawford DANEGINA [facility] CPT-4: 43062 12/29/2017 OFFICE/OUTPATIENT VISIT EST Diagnosis: Fracture of [...] Diagnosis: Low back pain[ICD10: M54.5] Alexandra KUNZ [facility] CPT-4: 72572 12/06/2017 ([id number]) OFFICE/OUTPATIENT VISIT EST Diagnosis: Cellulitis of right upper limb[ICD10: L03.113] Diagnosis: Allergy status to other antibiotic agents status[ICD10: Z88.1] Vandana Patricksasha CARRLOL [facility] CPT-4: 54553 12/01/2017 ([id number]) OFFICE/OUTPATIENT VISIT EST Diagnosis: Cellulitis of right upper limb[ICD10: L03.113] Diagnosis: Allergy status to other antibiotic agents status[ICD10: Z88.1] Vandana CARROLL DO [facility] CPT-4: 90620 11/30/2017 ([id number]) OFFICE/OUTPATIENT VISIT EST Diagnosis: Cellulitis of right upper limb[ICD10: L03.113] Vandana CARROLL DO [facility] CPT-4: 29447 11/29/2017 ([id number]) OFFICE/OUTPATIENT VISIT EST Diagnosis: Cellulitis of right upper limb[ICD10: L03.113] Vandana CARROLL DO [facility] CPT-4: 81631 11/28/2017 ([id number]) OFFICE/OUTPATIENT VISIT EST Diagnosis: Other intervertebral disc degeneration, lumbar region[ICD10: M51.36] Diagnosis: Other retention of urine[ICD10: R33.8] Diagnosis: Primary insomnia[ICD10: F51.01] Diagnosis: Other spondylosis, site unspecified[ICD10: M47.899] Alexandra CARROLL DO [facility] CPT-4: 17542 11/17/2017 ([id number]) OFFICE/OUTPATIENT VISIT EST Diagnosis: Radiculopathy, lumbosacral region[ICD10: M54.17] Diagnosis: Other retention of urine[ICD10: R33.8] Diagnosis: Urinary tract infection, site not specified[ICD10: N39.0] Vandana CARROLL DO [facility] CPT-4: 58353 10/10/2017 ([id number]) PREV VISIT EST AGE 40-64 Diagnosis: Encounter for general adult medical examination without abnormal findings[ICD10: Z00.00] Diagnosis: Other intervertebral disc degeneration, lumbar region[ICD10: M51.36] Diagnosis: Hypothyroidism, unspecified[ICD10: E03.9] Diagnosis: Mixed hyperlipidemia[ICD10: E78.2] Alexandra MARINROSE INGRID CARROLL [employer] [facility] CPT-4: 66917 06/22/2017 ([id number]) OFFICE/OUTPATIENT VISIT EST Diagnosis: URI, ACUTE[ICD10: J06.9] Alexandra PAREKH [facility] CPT-4: 99333 03/28/2017 OFFICE/OUTPATIENT VISIT EST Diagnosis: Acute sinusitis, unspecified[ICD10: J01.90] Vandana CARROLL DO [facility] CPT-4: 54435 02/16/2017 ([id number]) OFFICE/OUTPATIENT VISIT EST Diagnosis: Migraine, unspecified, not intractable, without status migrainosus[ICD10: G43.909] Alexandra CARROLL DO [facility] CPT - 4: 97921 11/02/2016 ([id number]) OFFICE/OUTPATIENT VISIT EST Diagnosis: Pain in thoracic spine[ICD10: M54.6] Diagnosis: Chondrocostal junction syndrome [Tietze][ICD10: M94.0] Alexandra CARROLL [facility] CPT-4: 65021 09/06/2016 OFFICE/OUTPATIENT VISIT EST Diagnosis: Acute sinusitis, unspecified[ICD10: J01.90] Vidya SpicerLarry ALEXANDRA CARROLL [facility] CPT-4: 47517 08/16/2016 ([id number]) OFFICE/OUTPATIENT VISIT EST Diagnosis: Primary insomnia[ICD10: F51.01] Diagnosis: Cramp and spasm[ICD10: R25.2] Diagnosis: Major depressive disorder, single episode, mild[ICD10: F32.0] Alexandra CARROLL [facility] CPT-4: 73599 07/19/2016 ([id number]) OFFICE/OUTPATIENT VISIT EST Diagnosis: Obstructive sleep apnea (adult) (pediatric)[ICD10: G47.33] Diagnosis: Other fatigue[ICD10: R53.83] Diagnosis: Allergic rhinitis due to pollen[ICD10: J30.1] Diagnosis: Headache[ICD10: R51] Alexandra CARROLL [facility] CPT-4: 19850 07/06/2016 ([id number]) OFFICE/OUTPATIENT VISIT EST Diagnosis: Acute recurrent sinusitis, unspecified[ICD10: J01.91] Diagnosis: Allergic rhinitis due to pollen[ICD10: J30.1] Alexandra CARROLL [employer] [facility] CPT-4: 95441 06/15/2016 ([id number]) OFFICE/OUTPATIENT VISIT EST Diagnosis: Migraine, unspecified, not intractable, without status migrainosus[ICD10: G43.909] Diagnosis: Allergic rhinitis, unspecified[ICD10: J30.9] Nae CARROLL DO [facility] CPT-4: 34802 04/09/2016 ([id number]) OFFICE/OUTPATIENT VISIT EST Diagnosis: Hypothyroidism, unspecified[ICD10: E03.9] Diagnosis: Other fatigue[ICD10: R53.83] Diagnosis: Mixed hyperlipidemia[ICD10: E78.2] Diagnosis: Major depressive disorder, single episode, mild[ICD10: F32.0] Alexandra CARROLL [employer] [facility] CPT-4: 98513 03/17/2016 ([id number]) OFFICE/OUTPATIENT VISIT EST Diagnosis: Insomnia, unspecified[ICD10: G47.00] Diagnosis: Encounter for therapeutic drug level monitoring[ICD10: Z51.81] Nae CARROLL [employer] [facility] CPT-4: 06886 11/13/2015 ([id number]) OFFICE/OUTPATIENT VISIT EST Diagnosis: Hematuria, unspecified[ICD10: R31.9] Alexandra CARROLL [employer] [facility] CPT-4: 49796 05/05/2015 ([id number]) OFFICE/OUTPATIENT VISIT EST Diagnosis: Other intervertebral disc degeneration, lumbar region[ICD10: M51.36] Diagnosis: Radiculopathy, lumbosacral region[ICD10: M54.17] Alexandra CARROLL [employer] [facility] CPT-4: 73993 04/22/2015 ([id number]) OFFICE/OUTPATIENT VISIT EST Diagnosis: Low back pain[ICD10: M54.5] Diagnosis: Recurrent and persistent hematuria with unspecified morphologic changes[ICD10: N02.9] Alexandra CARROLL [employer] [facility] CPT-4: 99867 03/24/2015 ([id number]) OFFICE/OUTPATIENT VISIT EST Diagnosis: Acute sinusitis, unspecified[ICD10: J01.90] Diagnosis: Headache[ICD10: R51] Diagnosis: Retention of urine, unspecified[ICD10: R33.9] Diagnosis: Hypothyroidism, unspecified[ICD10: E03.9] Alexandra Orendvioletta SHAFFERALEXANDRA Ty VELANDVIOLETTA SALGUERO [employer] CPT-4: 07908 02/27/2015 ([id number]) PREV VISIT EST AGE 40-64 Diagnosis: ROUTINE MEDICAL EXAM[ICD9: V70.0] Diagnosis: HYPOTHYROIDISM[ICD9: 244.9] Diagnosis: HYPERLIPIDEMIA NEC/NOS[ICD9: 272.4] Alexandra CORDOBA Ty CARROLL [employer] CPT-4: 03201 06/13/2014 ([id number]) OFFICE/OUTPATIENT VISIT EST Diagnosis: CEPHALGIA[ICD9: 784.0] Diagnosis: Nausea[ICD9: 787.02] Shalini KevinWendiroxanaabdirizak ALEXANDRA Ty CARROLL [employer] CPT-4: 31505 04/18/2014 ([id number]) OFFICE/OUTPATIENT VISIT EST Diagnosis: INSOMNIA NOS[ICD9: 780.52] Diagnosis: Complicated grieving[ICD9: 309.0] Alexandra Danegina Louise SAri CARROLL [employer] CPT-4: 37934 12/05/2013 ([id number]) OFFICE/OUTPATIENT VISIT EST Diagnosis: Muscle twitch[ICD9: 781.0] Diagnosis: ALLERGIC RHINITIS[ICD9: 477.9] Alexandra Danegina FORDE Macy CARROLL DO [employer] CPT-4: 00614 06/05/2013 ([id number]) OFFICE/OUTPATIENT VISIT EST Diagnosis: DEPRESSIVE DISORDER NEC[ICD9: 311] Alexandra QUINTERO S. DANENDER DO [employer] CPT-4: 79004 05/22/2013 OFFICE/OUTPATIENT VISIT EST Diagnosis: Shingles[ICD9: 053.9] Alexandra FORDE MaycAri DANENDER [facility] CPT-4: 26178 04/05/2013 ([id number]) OFFICE/OUTPATIENT VISIT EST Diagnosis: DEPRESSIVE DISORDER NEC[ICD9: 311] Alexandra QUINTERO S. DANENDER [employer] CPT-4: 34039 03/26/2013 ([id number]) OFFICE/OUTPATIENT VISIT EST Diagnosis: Complicated grieving[ICD9: 309.0] Alexandra Velalawandavioletta CARROLL [facility] CPT-4: 85273 03/06/2013 ([id number]) OFFICE/OUTPATIENT VISIT EST Diagnosis: CEPHALGIA, TENSION[ICD9: 307.81] Diagnosis: MIGRAINE NOS/NOT INTRCBL[ICD9: 346.90] Diagnosis: Cervicalgia[ICD9: 723.1] Alexandra Danelawandavioletta PLATT IZABELLA [facility] CPT-4: 54216 11/29/2012 ([id number]) OFFICE/OUTPATIENT VISIT EST Diagnosis: Jaw pain[ICD9: 784.92] Diagnosis: Shoulder pain[ICD9: 719.41] Diagnosis: Family history of premature coronary artery disease[ICD9: V17.3] Alexandra CARROLL [facility] CPT-4: 36872 09/26/2012 ([id number]) OFFICE/OUTPATIENT VISIT EST Diagnosis: ABDOMINAL PAIN[ICD9: 789.00] Diagnosis: Constipation[ICD9: 564.00] Diagnosis: Hematuria[ICD9: 599.70] Alexandra SHIPLEY [facility] CPT-4: 86574 07/11/2012 ([id number]) OFFICE/OUTPATIENT VISIT EST Diagnosis: ANEMIA NOS[ICD9: 285.9] Alexandra SHIPLEY [facility] CPT-4: 32652 02/17/2012 ([id number]) PREV VISIT EST AGE 40-64 Diagnosis: ROUTINE MEDICAL EXAM[ICD9: V70.0] Diagnosis: HYPOTHYROIDISM[ICD9: 244.9] Diagnosis: HYPERLIPIDEMIA NEC/NOS[ICD9: 272.4] Diagnosis: Obstructive sleep apnea[ICD9: 327.23] Alexandra Danegina TANIAGWENDOLYN JANEL Ty CARROLL [facility] CPT-4: 70855 02/02/2012 ([id number]) OFFICE/OUTPATIENT VISIT EST Diagnosis: URINARY TRACT INFECTION[ICD9: 599.0] Alexandra Danegina EDMUND DANIELLE Ty [facility]: 49399 08/27/2011 ([id number]) OFFICE/OUTPATIENT VISIT EST Diagnosis: URINARY TRACT INFECTION[ICD9: 599.0] Diagnosis: ACUTE CYSTITIS[ICD9: 595.0] Alexandra [facility] CPT-4: 33481 08/17/2011 OFFICE/OUTPATIENT VISIT EST Diagnosis: URINARY TRACT INFECTION[ICD9: 599.0] Steph Bowen EDMUND [facility] CPT-4: 14529 10/14/2010 Plan of Care Planned Activity Notes [...] ICD-10 : N39.0 07/17/2019 Appointment: Vandana Crowe [address] [place], [place] [id number] [facility] 07/17/2019 Patient Education: Cipro- [employer] [id number] [email or web address]/resources/getResource/61/[email or web address].pdf Completed 07/17/2019 Visit Diagnosis Plan: Allergic dermatitis Discussion: Could be numerous things that were given during surgery Continue benadryl Add Prednisone Notify if persists/worsens ICD-9 : 692.9 ICD-10 : L23.9 06/26/2019 Appointment: Alexandra Carroll [facility]el[facility] [facility] 06/26/2019 Patient Education: prednisone- [employer] [phone] https://www.[email or web address]/resources/getResource/61/[email or web address]-[email or web address] Completed 06/26/2019 Visit Diagnosis Plan: Contact dermatitis due to plant Discussion: kenalog 40 and dexa 4 given in office. i called the office of dr. albert to make sure he was ok with patient receiving steroid injection a week pre-op and dr. albert's co founder and chairman voiced ok to give. ICD-9 : 692.6 ICD-10 : L25.5 05/14/2019 Visit Diagnosis Plan: Cellulitis of left arm Discussio n: due to patient's multiple allergies, levaquin was prescribed to take as directed. call office with new or worsening symptoms. ICD-9 : 682.3 ICD-10 : L03.114 05/14/2019 Appointment: Vandana Crowe [address] [place], [place] [id number] ACUTE ILLNESS 05/14/2019 Patient Education: Levaquin- [employer] [id number] https://www.[email or web address]/resources/getResource/61/[email or web address] Completed 05/14/2019 Visit Diagnosis Plan: Ventral hernia Discussion: See s urgery for repair Discussed signs of incarceration or strangulation then is to report to ER ICD-9 : 553.20 ICD-10 : K43.9 04/10/2019 Appointment: Alexandra Carroll WPtel: [address] [place], [place] [phone] US left second message 04/10/19 at 10:20 ACUTE ILLNE SS 04/10/2019 Care Plan: Referral Order SNOMED-CT : 30 [id number] Pending 04/10/2019 Visit Diagnosis Plan: Thrombocytosis Discussion: [...] : G47.00 02/14/2019 Appointment: Alexandra Carroll WPtel: [address] [place], [place] [phone] US FOLLOW UP 02/14/2019 Appointment: Alexandra Carroll WPtel: [address] [place], [place] [phone] US CANCELED 02/12/2019 Visit Diagnosis Plan: Small bowel obstruction Discussi on: S/P surgery in September with postop complications of wound dehiscence ICD-9 : 560.9 ICD-10 : K56.609 01/16/2019 Visit Diagnosis Plan: Onychomycosis Discussion: Send n ail for culture ICD-9 : 110.1 ICD-10 : B35.1 01/16/2019 Appointment: Alexandra Carroll WPtel: [address] [place], [place] [phone] MEDICATION REVIEW 01/16/2019 Appointment: Alexandra Carroll WPtel: [address] [facility] US CANCELED 12/12/2018 Visit Diagnosis Plan: Radiculopathy, lumbosacral regio n Discussion: Had left SI joint injection by Dr. Baig about 2 weeks ago and has fwup with him ICD-9 : 724.4 ICD-10 : M54.17 09/18/2018 Visit Diagnosis Plan: Diarrhea, unspecified Discussion : Due for updated colonoscopy ICD-9 : 787.91 ICD-10 : R19.7 09/18/2018 Appointment: Alexandra Carroll WPtel: [address] [place], [place] [phone] US PATIENT CONSULT 15 09/18/2018 Care Plan: Referral Order SNOMED-CT : 30 [id number] Pending 09/18/2018 Visit Diagnosis Plan: Sacroiliitis, not [...] : G47.33 08/10/2018 Appointment: Alexandra Carroll WPtel: [address] [place] [address] US MEDICATION REVIEW 08/10/2018 Care Plan: Referral Order SNOMED-CT : 30 [id number] Pending 08/10/2018 Appointment: Alexandra Carroll WPtel: [address] [place] [address] US CANCELED 04/17/2018 Visit Diagnosis Plan: Fracture [...] : M54.17 03/27/2018 Appointment: Alexandra Carroll WPtel: [address] [place] [address] US FOLLOW UP 03/27/2018 Visit Diagnosis Plan: [...] : M51.36 02/23/2018 Appointment: Alexandra Carroll WPtel: [address] [place], [place] [phone] US FOLLOW UP 02/23/2018 Patient Education: gabapentin- [employer] [phone] https://www.[email or web address]/samplemd/resources/getResource/61/[email or web address] Completed 02/23/2018 Visit Diagnosis Plan: Fracture of unspec ified part of left clavicle, subsequent encounter for fracture with routine healing Discussion: Hold on PT and do home stretches Trial of gabapentin Recheck 4 weeks ICD-9 : V54.11 ICD-10 : S42.002D 01/24/2018 Appointment: Alexandra Carroll WPtel: [address] [place] [address] US FOLLOW UP 01/24/2018 Visit Diagnosis Plan: Migraine, unspecif ied, not intractable, without status migrainosus Discussion: Toradol and phenergan given ICD-9 : 346.90 ICD-10 : G43.909 01/17/2018 Appointment: Alexandra Carroll WPtel: [address] [place] [address] ACUTE ILLNESS 01/17/2018 Visit Diagnosis Plan: Hematuria, [...] : R33.9 12/29/2017 Appointment: Alexandra Carroll WPtel: [address] [place] [address] ACUTE ILLNESS 12/29/2017 Care Plan: US EXAM PELVIC COMPLETE LOINC : 85849-7 Pending 12/29/2017 Care Plan: ECHO EXAM OF ABDOMEN LOINC : 03527-6 Pending 12/29/2017 Care Plan: Referral Order SNOMED-CT : [id number] Pending 12/29/2017 Visit Diagnosis Plan: Fracture of unspec ified part of left clavicle, subsequent encounter for fracture with routine healing Discussion: Start PT in another 7-14 days Off work for the rest of this week then may return to part-time work on 12/12/17 Fwup in 4 weeks ICD-9 : V54.11 ICD-10 : S42.002D 12/06/2017 Appointment: Alexandra Carroll WPtel: [id number] [id number] US FOLLOW UP 12/06/2017 Patient Education: Patient [...] ICD-10 : Z88.1 12/01/2017 Appointment: Vandana Crowe [address] [place] [address] FOLLOW UP 12/01/2017 Patient Education: Patient Medication [...] : L03.113 11/30/2017 Appointment: Vandana Crowe [address] [id number] 11/30/2017 Patient Education: Patient Medication Summary Completed [...] ICD-10 : L03.113 11/29/2017 Appointment: Vandana Crowe [address] [place] [address] FOLLOW UP 11/29/2017 Patient Education: Patient Medication [...] ICD-10 : L03.113 11/28/2017 Appointment: Vandana Crowe [address] [place], [place] [id number] ACUTE ILLNESS 11/28/2017 Patient Education: Patient Medication [...] : M47.899 11/17/2017 Appointment: Alexandra Carroll WPtel: [phone] [facility] REVIEW 11/17/2017 Patient Education: Patient Medication Summary Completed 11/17/2017 Care Plan: Referral Order SNOMED-CT : [id number] Pending 11/17/2017 Patient Education: Patient Medication Summary Completed 10/12/2017 Care Plan: MRI LUMBAR SPINE W/O DYE LOIN C : 38603-9 Pending 10/12/2017 Care Plan: X-RAY EXAM L-S SPINE 2/3 VWS LOINC : 77866-0 Pending 10/11/2017 Visit Diagnosis Plan: Other retention [...] medrol pack to start tomorrow. [facility] with inversion table. instructed patient to go to ED immediately if she develops any incontinence with bowel or bladder. patient verbalized understanding. if no improvement, will need updated MRI and referral to surgeon. ICD-9 : 724.4 ICD-10 : M54.17 10/10/2017 Appointment: Vandana Crowe [address] [place], [place] [phone] ACUTE ILLNESS 10/10/2017 Patient Education: Patient Medication Summary Completed 10/10/2017 Appointment: Vandana Crowe [address] [place], [place] [phone] ACUTE ILLNESS 08/01/2017 Visit Diagnosis Plan: Other intervertebral disc degene ration, lumbar region Discussion: Core strengtheing and inversion table and if worsening will need updated MRI ICD-9 : 722.52 ICD-10 : M51.36 06/22/2017 Visit Diagnosis Plan: Encounter for [facility] adult medical examination without abnormal findings Discussion: Lab dis ussed Follow Up: 6 months ICD-9 : V70.0 ICD-10 : Z00.00 06/22/2017 Appointment: Alexandra Carroll WPtel: [address] [place] [address] Annual Well Visit 06/22/2017 Patient Education: Patient Medication Summary Completed 06/22/2017 Patient Education: Patient Medication Summary Completed 06/16/2017 Care Plan: [place] : 545[address]-5 Pending 06/16/2017 Care Plan: ASSAY THYROID STIM HORMONE Pen ding 06/16/2017 Care Plan: ASSAY OF FREE THYROXINE Pendin g 06/16/2017 Care Plan: LIPID PANEL LOINC : 72130-5 Pending 06/16/2017 Care Plan: CBC Pending 06/16/2017 Visit Plan: Supportive care. Rest, Fluid s, Tylenol/Motrin prn fever or bodyaches. Notify if worsening symptoms. 03/28/2017 Visit Diagnosis Plan: URI, ACUTE Discussion: Likely fl u and is at end of illness so supportive care and monitor ICD-9 : 465.9 ICD-10 : J06.9 03/28/2017 Visit NOS Plan: Plan Notes: Supportive care. Rest, Fluids... 03/28/2017 Appointment: Alexandra Carroll WPtel: [phone] ACUTE ILLNESS 03/28/2017 Patient Education: Patient Medication Summary Completed 03/28/2017 Visit Diagnosis Plan: Acute sinusitis, unspecified Dis cussion: cefdinir and medrol dose pack prescribed to be taken as directed. tylenol/ibuprofen as needed. educated on importance of taking singulair or zyrtec daily to prevent worsening symptoms. keep hydrated. ICD-9 : 461.9 ICD-10 : J01.90 02/16/2017 Appointment: Vandana Crowe [address] [place] [address] ACUTE ILLNESS 02/16/2017 Patient Education: Patient Medication Summary Completed 02/16/2017 Appointment: Alexandra Carroll WPtel: [address] [place] [address] INJECTION 11/02/2016 Patient Education: Patient Medication Summary Completed 11/02/2016 Visit Diagnosis Plan: Pain in thoracic spine Discussio n: Increase flexeril to 10mg po BID Add Mobic 15mg po daily Towel stretch May see chiropractor to adjust ribs Notify if persists or worsening ICD-9 : 724.1 ICD-10 : M54.6 09/06/2016 Appointment: Alexandra Carroll WPtel: [address] [place] [address] ACUTE ILLNESS 09/06/2016 Patient Education: Patient Medication Summary Completed 09/06/2016 Visit Plan: Due to hx, ERx Cefdinir and Prednisone (discussed risks for both) Given bottle for nasal saline rinses Tylenol/Ibuprofen prn pain/fever Fluids/rest Discussed s/s of worsening, RTC if no improvement 08/16/2016 Appointment: Vidya Manuel WPtel: [facility] [address] ACUTE ILLNESS 08/16/2016 Patient Education: Patient [...] 07/19/2016 Visit Diagnosis Plan: Primary insomnia Discussion: [place] galvan at current dose--patient has been trying to decrease dose ICD-9 : 780.52 ICD-10 : F51.01 07/19/2016 Appointment: Alexandra Carroll WPtel: [address] [place], [place] [phone] 07/15 confirmed`sl FOLLOW UP 07/19/2016 Patient Education: [...] : G47.33 07/06/2016 Appointment: Alexandra Carroll WPtel: [address] [place], [place] [phone] 07/05 confirmed-sp FOLLOW UP 07/06/2016 Patient Education: [...] : J30.1 06/15/2016 Appointment: Alexandra Carroll WPtel: [address] [place], [place] [phone] 06/14 lm ~sl ACUTE ILLNESS 06/15/2016 Patient Education: Patient Medication Summary Completed 06/15/2016 Visit Diagnosis Plan: Migraine, unspecif ied, not intractable, without status migrainosus Discussion: Injection as above Drink ple nty of water No driving x 6 hours Rest No OTC nsaids today Follow up PRN Refill called of claritin-d ICD-9 : 346.90 ICD-10 : G43.909 04/09/2016 Appointment: [facility]ae [facility]ckay [facility] [facility] 04/09/2016 Patient Education: Patient [...] : E78.2 03/17/2016 Appointment: Alexandra Carroll WPtel: [address] [place], [place] [id number] 03/16 nvm~sl 03/17 confirmed`sl FOLLOW UP 0 03/17/2016 Patient Education: Patient Medication Summary Completed 03/17/2016 Appointment: Alexandra Carroll WPtel: [address] [place], [place] [id number] 03/11 lm~sl 03/15lm `sl 03/15 confirmed`sl FOLLOW [...] same robert. If working well, continue the [id number] office visits. Call if not working well, and will restart xanax at for sleep. 11/13/2015 Appointment: Woody Nae [address] [place], [place] [phone] 11/11 confirmed~sl FOLLOW UP 11/13/2015 Patient Education: Patient Medication Summary Completed 11/13/2015 Appointment: Alexandra Carroll WPtel: [address] [place], [place] [phone] Suture Removal 06/23/2015 Patient Education: Patient Medication Summary Completed 06/23/2015 Visit Plan: Removal of lesion above usin g 3-0 punch biopsy Return in 10 days for suture removal 06/12/2015 Appointment: Alexandra Carroll WPtel: [address] [place], [place] [phone] 06/10 lm ~sl ACUTE ILLNESS 06/12/2015 Patient Education: Patient Medication Summary Completed 06/12/2015 Referral: Soy Garcia WPtel: 1 [facility] Schedule patient around lunch time and 3 weeks from 04/22/2015 ~sl Spoke with Kiesha at Dr[facility] Sandoval [facility] and 04/24/15 and scheduled the patient ~sl 04/24/15 Patient is informed~sl 06/03 Patient canceled the appointment ~ sl Patient did not show up for scheduled appointment-sp Appoint ment Requested 05/21/2015 Appointment: Alexandra Carroll WPtel: [address] [place], [place] [phone] [facility] 05/05/2015 Patient Education: Patient Medication Summary Completed 05/05/2015 Visit Plan: Starts PT today Schedule wit h Dr. Garcia for epidural CT abdomen/pelvis results discussed [facility] and will get checked then 04/22/2015 Appointment: Alexandra Carroll WPtel: [address] [place], [place] [phone] 04/21 confirmed~lb ACUTE ILLNESS 04/22/2015 Patient Education: Patient Medication Summary Completed 04/22/2015 Referral: Lincoln Hernandez WPtel: [address] [place] [address] [place] Referral Initiated 04/10/2015 Patient Education: Patient Medication Summary Completed 04/09/2015 Visit Plan: Start with lumosacral spine x-ray--will likely need MRI of L/S spine x-ray Needs urology--has had to have bladder stretched in past Tivorbex 03/24/2015 Appointment: Alexandra Carroll WPtel: [address] [place] [address] 03/21/15 appt confirmed cn ACUTE ILLNESS 03/24 Patient Education: Patient Medication Summary Completed 03/24/2015 Visit Plan: Saline nasal flushes prn. Ty lenol/Motrin prn headache. Notify if persists/symptoms worsening. Cefuroxime to cover both sinuses and UTI Culture urine Check lab 02/27/2015 Appointment: Alexandra Carroll WPtel: [address] [place] [address] 02/26/15 vm to confirm and need new insu meri on file is inactive cn....02/27/15 appt confirmed cn ACUTE ILLNESS 015 Patient Education: Patient Medication Summary Completed 02/27/2015 Visit Plan: Lab discussed Stop simvastat in Check lipids in 6mos Continue all other meds at current dose Had Pap and Mammo 3 weeks ago 06/13/2014 Appointment: Alexandra Carroll WPtel: [address] [place] [address] Annual Well Visit 06/13/2014 Patient Education: Patient Medication Summary Completed 06/13/2014 Appointment: Shalini Walters WPtel: [address] [place] [address] ACUTE ILLNESS 04/18/2014 Patient Education: Patient Medication Summary Completed 04/18/2014 Visit Plan: Check lab in May then fwup Can try decreasing xanax to 1mg q HS with melatonin 5-10mg q HS 12/05/2013 Appointment: Alexandra Carroll WPtel: [address] [place], [place] [phone] 12/04 FOLLOW UP 12/05/2013 Patient Education: Patient Medication Summary Completed 12/05/2013 Appointment: Alexandra Carroll WPtel: [address] [place], [place] [phone] 06/05/2013 Patient Education: Patient Medication Summary Completed 06/05/2013 Appointment: Alexandra Carroll WPtel: [address] [place] [address] FOLLOW UP 05/22/2013 Patient Education: Patient Medication Summary Completed 05/22/2013 Visit Plan: Zovirax for 2wks Notify if p ain worsens or if persists 04/05/2013 Appointment: Alexandra Carroll WPtel: [address] [place] [address] ACUTE ILLNESS 04/05/2013 Patient Education: Patient Medication Summary Completed 04/05/2013 Visit Plan: Keep Wellbutrin at current d ose 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 03/26/2013 Appointment: Alexandra Carrolltel: [address] [place] [address] ACUTE ILLNESS 03/26/2013 Patient Education: Patient Medication Summary Completed 03/26/2013 Visit Plan: Continue citalopram at curre nt dose Increase xanax to 1-2mg q HS for sleep Add Wellbutrin Sr 100mg q AM Start Counseling 03/06/2013 Appointment: Alexandra Carroll WPtel: [address] [place] [address] ACUTE ILLNESS 03/06/2013 Patient Education: Patient Medication Summary Completed 03/06/2013 Appointment: Alexandra Carroll WPtel: [address] [place] [address] ACUTE ILLNESS 11/29/2012 Patient Education: Patient Medication Summary Completed 11/29/2012 Appointment: Alexandra Carroll WPtel: [address] [place], [place] [phone] 09/26/2012 Patient Education: Patient Medication Summary Completed 09/26/2012 Appointment: Alexandra Carrolltel: [address] [place], [place] [phone] 07/11/2012 Patient Education: Patient Medication Summary Completed 07/11/2012 Appointment: Alexandra Carroll WPtel: [address] [place], [place] [phone] US LAB 02/17/2012 Patient Education: Patient Medication Summary Completed 02/17/2012 Visit Plan: Check fasting lab Start annie y ca with Vit D Cont CPAP Mammo up-to-date Hemoccult card given 02/02/2012 Appointment: Alexandra Carroll WPtel: [address] [place] [address] PHYSICAL 02/02/2012 Patient Education: Patient Medication Summary Completed 02/02/2012 Appointment: Alexnadra Carroll WPtel: [address] [place], [place] [phone] 08/27/2011 Patient Education: Patient Medication Summary Completed 08/27/2011 Visit Plan: Levaquin and Diflucan for 1w k Then cipro QOD for prophylaxis 08/17/2011 Appointment: Alexandra Carrolltel: [address] [place] [address] FOLLOW UP 08/17/2011 Patient Education: Patient Medication Summary Completed 08/17/2011 Appointment: Alexandra Carroll WPtel: [address] [place] [address] UA 12/28/2010 Patient Education: Patient Medication Summary Completed 12/28/2010 Appointment: Alexandra Carroll WPtel: [address] [place], [place] [phone] 11/09/2010 Patient Education: Patient Medication Summary Completed 11/09/2010 Appointment: Alexandra Carrolll: [address] [id number] UA 10/29/2010 Patient Education: Patient Medication Summary Completed 10/29/2010 Appointment: Steph Bowen WPtel: [phone] [facility] ACUTE ILLNESS 10/14/2010 Patient Education: Patient Medication Summary Completed 10/14/2010 Referral: Florian Baig WPtel: [facility] [address] Referral Initiated Referral: aPulo Albert WPtel: [address] [id number] [place] Referral Appointment Requested Referral: Luis Enrique Jasso WPtel: [facility] [address] Referral Appointment Requested Referral: Florian Baig WPtel: [facility] [address] [place] Referral Appointment Requested Referral: Caleb Glaser WPtel: [phone] [place] Referral Appointment Requested Referral: Florian Baig WPtel: [facility] [address] Referral Initiated Referral: Florian Baig WPtel: [facility] [address] [place] Referral Appointment Requested Instructions Comment [...] agrees with this trial. Rx [place] after cost comparison which is nearly the same robert. If working well, continue the [id number] office visits. Call if not working well, and will restart xanax at HS for sleep. . Removal of lesion above using 3-0 punc h biopsy Return in 10 days for suture removal . Starts PT today Schedule with Dr. Garcia for epidural CT abdomen/pelvis results discussed [facility] and will get checked then [...]
--- OUTSIDE RECORDS SUMMARY | 2019-09-02 00:14 | XMS REPORT | CCD ---
Author Author Ilda Bowen APRN Organization [facility] Address [address] [place] [address] Phone Care Team Providers Care Technical Developer Name Role Phone Alexandra Carroll D.O., PP Unavailable CCM Unavailable Summary Purpose Interface Exchange Insurance Providers Payer name Policy type / Coverage type Covered green party ID Effective Begin Date Effective End Date WPS MEDICARE PART B [place] Medicare Part B [id number] 2019 Unknown [employer] Medicare Part B [id number] Unknown Family History Family History data not found Social History Social History Element Codes Description Effective Dates Tobacco history SNOMED CT: 134545949 Nonsmoker 10/14/2010 Allergies, Adverse Reactions, Alerts Substance Reaction Codes Entered Date Inactivated Date Status MORPHINE SULFATE RxNorm: 1104307 10/14/2010 No Inactive Da te Active CEPHALOSPORINS [...] Fill Instructions cyclobenzaprine 10 mg tablet RxNorm: 318493 Tablet(s) Oral as neede d 07/17/2019 No Stop Date Active Cipro 500 mg tablet RxNorm: 296598 1 Tablet(s) Oral two times a day 07/17/2019 07/22/2019 Inactive Xanax 1 mg tablet RxNorm: 582857 1-2 Tablet(s) Oral e very night at bedtime as needed for sleep 07/10/2019 08/08/2019 Active Generic For:LAVELLE AX 1MG 10/11/2016 11:15:13 AM prednisone 20 mg tablet RxNorm: 218877 1 Tablet(s) Oral two harlan es a day 06/26/2019 07/03/2019 Inactive Amabelz 1 mg-0.5 mg tablet RxNorm: 1732212 1 Tablet(s) Oral QD 05/3007/17/2019 Inactive Trazadone 150 mg Tablet RxNorm: 1 Tablet(s) Oral every n ight at bedtime 05/14/2019 No Stop Date Active Levaquin 500 mg tablet RxNorm: 565848 1 Tablet(s) Oral QD 05/14/2019 05/21/2019 Inactive Xanax 1 mg tablet RxNorm: 474690 1-2 Tablet(s) Oral e very night at bedtime as needed for sleep 05/03/2019 06/01/2019 Inactive Generic For:LAVELLE AX 1MG 10/11/2016 11:15:13 AM cyclobenzaprine 10 mg tablet RxNorm: 095394 1 Tablet(s) Oral three times a day as needed for muscle spasm 02/12/2019 02/12/2019 Inactive Xanax 1 mg tablet RxNorm: 437696 1-2 Tablet(s) Oral e very night at bedtime as needed for sleep 02/09/2019 03/10/2019 Inactive Generic For:LAVELLE AX 1MG 10/11/2016 11:15:13 AM Xanax 1 mg tablet RxNorm: 302535 1-2 Tablet(s) Oral e very night at bedtime as needed for sleep 01/22/2019 02/08/2019 Inactive Generic For:LAVELLE AX 1MG 10/11/2016 11:15:13 AM Celexa 40 mg tablet RxNorm: 831804 1 Tablet(s) Oral QD 01/17/2019 Active - First Attempt Ref: [id number] Xanax 1 mg tablet RxNorm: 751746 1 Tablet(s) Oral every night a t bedtime 01/08/2019 01/21/2019 Inactive levothyroxine 88 mcg tablet RxNorm: 254523 TAKE 1 TABLET BY NINA TH DAILY 12/19/2018 06/16/2019 Inactive - First Attempt Ref: [id number] Xanax 1 mg tablet RxNorm: 065645 1 Tablet(s) Oral every night a t bedtime 12/06/2018 01/05/2019 Inactive Singulair 10 mg tablet RxNorm: 709717 1 Tablet(s) Oral every ni ght at bedtime 11/23/2018 11/17/2019 Active - First Attempt Ref: [id number] Celexa 40 mg tablet RxNorm: 486572 1 Tablet(s) Oral 11/23/20182018 Inactive - First Attempt Ref: [id number] cyclobenzaprine 10 mg tablet RxNorm: 663844 1 Tablet(s) Oral three times a day as needed for muscle spasm 11/23/2018 02/11/2019 Inactive Xanax 1 mg tablet RxNorm: 066114 1 Tablet(s) PO QHS 11/06/20182018 Inactive Xanax 1 mg tablet RxNorm: 681130 1 Tablet(s) PO QHS 09/26/20182018 Inactive Singulair 10 mg tablet RxNorm: 768929 TAKE 1 TABLET BY MOUTH EVERY NIGHT AT BEDTIME 08/16/2018 11/22/2018 Inactive - First Attempt Ref: [id number] Xanax 1 mg tablet RxNorm: 140340 1 Tablet(s) PO QHS 08/01/20182018 Inactive levothyroxine 88 mcg tablet RxNorm: 350560 TAKE 1 TABLET BY NINA TH DAILY 07/31/2018 12/18/2018 Inactive - First Attempt Ref: [id number] Celexa 40 mg tablet RxNorm: 194097 TAKE 1 TABLET BY MOUTH DAILY 04/201811/22/2018 Inactive - First Attempt Ref: [id number] bupropion HCl SR 100 mg tablet,12 hr sustained-release RxNor m: 708769 1 Tablet(s) PO BID 07/12/2018 07/06/2019 Inactive - Ref: [id number] 7 Claritin-D 24 Hour 10 mg-240 mg tablet,extended release RxNo rm: 0201844 1 Tablet(s) PO QD 06/29/2018 2018 Inactive Claritin-D 24 Hour 10 mg-240 mg tablet,extended release RxNo rm: 2475500 1 Tablet(s) PO QD 06/29/2018 2018 Inactive Xanax 1 mg tablet RxNorm: 432264 1-2 Tablet(s) PO QHS as needed for sleep 05/26/2018 06/23/2018 Inactive Generic For:XANAX 1M G 10/11/2016 11:15:13 AM Xanax 1 mg tablet RxNorm: 253486 1-2 Tablet(s) PO QHS as needed for sleep 03/28/2018 05/25/2018 Inactive Generic For:XANAX 1M G 10/11/2016 11:15:13 AM Macrobid 100 mg capsule RxNorm: 365766 1 Capsule(s) PO BID 03/27/19 19 03/31/2018 Inactive gabapentin 300 mg capsule RxNorm: 900719 1 Capsule(s) PO QHS 201703/26/2018 Inactive Claritin-D 24 Hour 10 mg-240 mg tablet,extended release RxNo rm: 8644639 1 Tablet(s) PO QD 01/26/2018 02/24/2018 Inactive gabapentin 100 mg capsule RxNorm: 417093 1 Capsule(s) P O QHS for 1 week then 2 po q HS for 2 weeks then 3 po q HS 01/24/2018 03/26/2018 Inactive Xanax 1 mg tablet RxNorm: 163323 1-2 Tablet(s) PO QHS as needed for sleep 01/24/2018 03/24/2018 Inactive Generic For:XANAX 1M G 10/11/2016 11:15:13 AM prednisone 20 mg tablet RxNorm: 059620 1 Tablet(s) PO T ID for 3 days then 1 po BID for 3 days then one daily for 3 days 12/29/2017 03/26/2018 Inactiv e prednisone 20 mg tablet RxNorm: 166751 3 Tablet(s) PO T ID for 3 days then 1 po BID for 3 days then one daily for 3 days 12/29/2017 12/29/2017 Inactiv e Macrobid 100 mg capsule RxNorm: 943077 1 Capsule(s) PO BID 12/30/19 18 01/02/2018 Inactive Xanax 1 mg tablet RxNorm: 969642 1-2 Tablet(s) PO QHS as needed for sleep 12/28/2017 01/23/2018 Inactive Generic For:XANAX 1M G 10/11/2016 11:15:13 AM Medrol (Walter) 4 mg tablets in a dose pack RxNorm: 539445 Tablet(s) PO take as directed 12/01/2017 03/26/2018 Inactive Keflex 750 mg capsule RxNorm: 527237 1 Capsule(s) PO BID 12/01/2017 1 Inactive clindamycin HCl 300 mg capsule RxNorm: 615842 2 Capsule(s) PO TID 1 12/08/2017 Inactive Xanax 1 mg tablet RxNorm: 816164 1-2 Tablet(s) PO QHS as needed for sleep 11/28/2017 12/27/2017 Inactive Generic For:XANAX 1M G 10/11/2016 11:15:13 AM mupirocin 2 % topical ointment RxNorm: 440109 1 Application OTIC BI D 11/28/2017 08/09/2018 Inactive Xanax 1 mg tablet RxNorm: 520503 1-2 Tablet(s) PO QHS as needed for sleep 10/27/2017 11/25/2017 Inactive Generic For:XANAX 1M G 10/11/2016 11:15:13 AM Macrobid 100 mg capsule RxNorm: 372280 1 Capsule(s) PO BID 10/11/19 18 10/16/2017 Inactive Medrol (Walter) 4 mg tablets in a dose pack RxNorm: 643594 Tablet(s) PO take as directed 10/10/2017 11/16/2017 Inactive Xanax 1 mg tablet RxNorm: 255667 1-2 Tablet(s) PO QHS as needed for sleep 09/28/2017 10/26/2017 Inactive Generic For:XANAX 1M G 10/11/2016 11:15:13 AM Xanax 1 mg tablet RxNorm: 628234 1-2 Tablet(s) PO QHS as needed for sleep 08/30/2017 09/27/2017 Inactive Generic For:XANAX 1M G 10/11/2016 11:15:13 AM Xanax 1 mg tablet RxNorm: 628286 1-2 Tablet(s) PO QHS as needed for sleep 08/30/2017 08/29/2017 Inactive Generic For:XANAX 1M G 10/11/2016 11:15:13 AM Xanax 1 mg tablet RxNorm: 074683 1-2 Tablet(s) PO QHS as needed for sleep 08/01/2017 08/29/2017 Inactive Generic For:XANAX 1M G 10/11/2016 11:15:13 AM Xanax 1 mg tablet RxNorm: 369759 1-2 Tablet(s) PO QHS as needed for sleep 06/29/2017 2017 Inactive Generic For:XANAX 1M G 10/11/2016 11:15:13 AM Claritin-D 24 Hour 10 mg-240 mg tablet,extended release RxNo rm: 2472610 1 Tablet(s) PO QD 06/29/2017 2017 Inactive levothyroxine 88 mcg tablet RxNorm: 605457 1 Tablet(s) PO QD 201709/10/2017 Inactive Xanax 1 mg tablet RxNorm: 288156 1-2 Tablet(s) PO QHS as needed for sleep 05/26/2017 06/28/2017 Inactive Generic For:XANAX 1M G 10/11/2016 11:15:13 AM Claritin-D 24 Hour 10 mg-240 mg tablet,extended release RxNo rm: 6596311 1 Tablet(s) PO QD 05/26/2017 06/24/2017 Inactive bupropion HCl SR 100 mg tablet,12 hr sustained-release RxNor m: 817335 Tablet(s) Take 1 tablet by mouth two times daily 04/06/2017 12/31/2017 Inactive - Ref: [id number] Xanax 1 mg tablet RxNorm: 457679 1-2 Tablet(s) PO QHS as needed for sleep 03/24/2017 05/22/2017 Inactive Generic For:XANAX 1M G 10/11/2016 11:15:13 AM Medrol (Walter) 4 mg tablets in a dose pack RxNorm: 022825 Tablet(s) P O 02/16/2017 03/27/2017 Inactive Xanax 1 mg tablet RxNorm: 341001 Tablet(s) TAKE ONE T O TWO TABLETS BY MOUTH AT BEDTIME NEEDED 02/16/2017 03/17/2017 Inactive Generic For:XA NAX 1MG 10/11/2016 11:15:13 AM Claritin-D 24 Hour 10 mg-240 mg tablet,extended release RxNo rm: 7185993 1 Tablet(s) PO QD 02/16/2017 04/16/2017 Inactive cefdinir 300 mg capsule RxNorm: 848981 2 Capsule(s) PO QD 02/16/2017 02/25/2017 Inactive Celexa 40 mg tablet RxNorm: 533280 Tablet(s) Take 1 tablet by m outh daily 12/23/2016 09/18/2017 Inactive - Ref: [id number] Xanax 1 mg tablet RxNorm: 922188 Tablet(s) TAKE ONE T O TWO TABLETS BY MOUTH AT BEDTIME NEEDED 12/16/2016 01/14/2017 Inactive Generic For:XA NAX 1MG 10/11/2016 11:15:13 AM Xanax 1 mg tablet RxNorm: 015134 Tablet(s) TAKE ONE T O TWO TABLETS BY MOUTH AT BEDTIME NEEDED 11/18/2016 12/15/2016 Inactive Generic For:XA NAX 1MG 10/11/2016 11:15:13 AM Xanax 1 mg tablet RxNorm: 660815 TAKE ONE TO TWO TABL ETS BY MOUTH AT BEDTIME NEEDED 10/11/2016 11/17/2016 Inactive Generic For:XANA X 1MG 10/11/2016 11:15:13 AM Mobic 15 mg tablet RxNorm: 472860 1 Tablet(s) PO QD 09/06/20162016 Inactive Claritin-D 24 Hour 10 mg-240 mg tablet,extended release RxNo rm: 4648778 1 Tablet(s) PO QD 09/02/2016 11/30/2016 Inactive prednisone 20 mg tablet RxNorm: 121327 1 Tablet(s) PO T ID for 3 days then 1 po BID for 3 days then one daily for 3 days 08/16/2016 03/27/2017 Inactiv e cefdinir 300 mg capsule RxNorm: 942213 2 Capsule(s) PO QD 08/16/2016 09/05/2016 Inactive Xanax 1 mg tablet RxNorm: 788779 TAKE ONE TO TWO TABL ETS BY MOUTH AT BEDTIME NEEDED 08/05/2016 10/11/2016 Inactive Generic For:XANA X 1MG 08/05/2016 2:27:03 PM08/04/2016 4:15:22 PM Singulair 10 mg tablet RxNorm: 310925 1 Tablet(s) PO QHS 07/06/2016 0 09/03/2016 Inactive prednisone 20 mg tablet RxNorm: 465657 1 Tablet(s) PO T ID for 3 days then 1 po BID for 3 days then one daily for 3 days 06/15/2016 07/05/2016 Inactiv e Singulair 10 mg tablet RxNorm: 766778 1 Tablet(s) PO QHS 06/15/2016 0 07/05/2016 Inactive cefdinir 300 mg capsule RxNorm: 816040 2 Capsule(s) PO QD 06/15/2016 07/05/2016 Inactive Xanax 1 mg tablet RxNorm: 807946 1-2 Tablet(s) PO QHS 05/21/201610/2016 Inactive Claritin-D 24 Hour 10 mg-240 mg tablet,extended release RxNo rm: 2436016 1 Tablet(s) PO QD 04/09/2016 07/07/2016 Inactive Xanax 1 mg tablet RxNorm: 247485 1-2 Tablet(s) PO QHS 03/23/201604/29 Inactive levothyroxine 88 mcg tablet RxNorm: 969672 1 Tablet(s) PO QD 201606/13/2017 Inactive bupropion HCl SR 100 mg tablet,sustained-release RxNorm: 993 503 Take 1 tablet by mouth two times daily 03/15/2016 12/09/2016 Inactive - Ref: 20 1243505 Celexa 40 mg tablet RxNorm: 448829 Take 1 tablet by mouth daily 12/23/2016 Inactive - Ref: [id number] Xanax 1 mg tablet RxNorm: 473539 1-2 Tablet(s) PO QHS 02/17/201603/01 Inactive levothyroxine 88 mcg tablet RxNorm: 937476 1 Tablet(s) PO QD 201502/22/2016 Inactive Xanax 1 mg tablet RxNorm: 575841 1-2 Tablet(s) PO QHS 11/25/201511/29 Inactive levothyroxine 88 mcg tablet RxNorm: 994684 1 Tablet(s) PO QD 201511/24/2015 Inactive temazepam 30 mg capsule RxNorm: 284624 1 Capsule(s) PO QHS 11/13/19 16 11/24/2015 Inactive Xanax 1 mg tablet RxNorm: 999356 1-2 Tablet(s) PO QHS 09/15/201510/29 Inactive Celexa 40 mg tablet RxNorm: 677348 1 Tablet(s) PO QD 1 Tablet(s ) PO QD 09/10/2015 09/16/2015 Inactive bupropion HCl SR 100 mg tablet,sustained-release RxNorm: 993 503 1 Tablet(s) PO BID 09/10/2015 09/23/2015 Inactive Xanax 1 mg tablet RxNorm: 395492 1-2 Tablet(s) PO QHS 09/10/201508/28 Inactive Xanax 1 mg tablet RxNorm: 032780 1-2 Tablet(s) PO QHS 08/11/201508/28 Inactive cyclobenzaprine 10 mg tablet RxNorm: 109041 1 Tablet(s) PO TID prn spasm 07/09/2015 11/23/2018 Inactive Celexa 40 mg tablet RxNorm: 468788 1 Tablet(s) PO QD 06/06/201508/03 Inactive Xanax 1 mg tablet RxNorm: 326543 1-2 Tablet(s) PO QHS 06/04/201505/2015 Inactive levothyroxine 88 mcg tablet RxNorm: 475284 1 Tablet(s) PO QD 201511/23/2015 Inactive Ceftin 500 mg tablet RxNorm: 332702 1 Tablet(s) PO BID 05/05/2015 Inactive Ceftin 500 mg tablet RxNorm: 212011 1 Tablet(s) PO BID 05/05/201507/2015 Inactive meloxicam 15 mg tablet RxNorm: 994272 1 Tablet(s) PO QD 04/16/2015 Inactive meloxicam 15 mg tablet RxNorm: 325709 1 Tablet(s) PO QD 04/16/2015 Inactive diclofenac sodium 75 mg tablet,delayed release RxNorm: 09399 6 1 Tablet(s) PO BID 04/04/2015 04/15/2015 Inactive diclofenac sodium 75 mg tablet,delayed release RxNorm: 14137 6 1 Tablet(s) PO BID 04/04/2015 04/03/2015 Inactive Tivorbex 40 mg capsule RxNorm: 5190722 1 Capsule(s) PO TID 03/24/19 16 04/02/2015 Inactive bupropion HCl SR 100 mg tablet,sustained-release RxNorm: 993 503 1 Tablet(s) PO BID 03/11/2015 09/06/2015 Inactive cyclobenzaprine 10 mg tablet RxNorm: 887978 1 Tablet(s) PO TID prn spasm 03/11/2015 07/08/2015 Inactive levothyroxine 88 mcg tablet RxNorm: 444910 1 Tablet(s) PO QD 201405/27/2015 Inactive Claritin-D 24 Hour 10 mg-240 mg tablet,extended release RxNo rm: 5191840 1 Tablet(s) PO QD 02/27/2015 05/27/2015 Inactive cefuroxime axetil 500 mg tablet RxNorm: 324991 1 Tablet(s) PO BID 1 03/12/2015 Inactive Celexa 40 mg tablet RxNorm: 701215 1 Tablet(s) PO QD 02/05/201504/05 Inactive levothyroxine 75 mcg tablet RxNorm: 141341 1 Tablet(s) PO QD 201402/26/2015 Inactive Celexa 40 mg tablet RxNorm: 662297 1 Tablet(s) PO QD 10/09/201402/04 Inactive Activella 1 mg-0.5 mg tablet RxNorm: 5247174 1 Tablet(s) PO QD 08/2802/26/2015 Inactive bupropion HCl SR 100 mg tablet,sustained-release RxNorm: 993 503 1 Tablet(s) PO BID 09/12/2014 03/10/2015 Inactive levothyroxine 75 mcg tablet RxNorm: 415180 1 Tablet(s) PO QD 201412/09/2014 Inactive levothyroxine 75 mcg tablet RxNorm: 163752 1 Tablet(s) PO QD 201409/11/2014 Inactive Celexa 40 mg tablet RxNorm: 268909 1 Tablet(s) PO QD 08/12/201410/08 Inactive Xanax 1 mg tablet RxNorm: 817543 1-2 Tablet(s) PO QHS 08/12/201409/28 Inactive Claritin-D 24 Hour 10 mg-240 mg tablet,extended release RxNo rm: 8657466 1 Tablet(s) PO QD 06/13/2014 09/10/2014 Inactive cyclobenzaprine 10 mg tablet RxNorm: 201650 1 Tablet(s) PO TID prn spasm 06/12/2014 02/26/2015 Inactive Xanax 1 mg tablet RxNorm: 973496 1-2 Tablet(s) PO QHS 05/09/201406/28 Inactive levothyroxine 75 mcg tablet RxNorm: 136501 1 Tablet(s) PO QD 201407/08/2014 Inactive cephalexin 500 mg capsule RxNorm: 553255 1 Capsule(s) PO QOD 201402/26/2015 Inactive simvastatin 10 mg tablet RxNorm: 096257 1 Tablet(s) PO QHS 04/10/19 15 06/12/2014 Inactive Xanax 1 mg tablet RxNorm: 773847 1-2 Tablet(s) PO QHS 04/10/201404/28 Inactive levothyroxine 75 mcg tablet RxNorm: 960448 1 Tablet(s) PO QD 201404/09/2014 Inactive levothyroxine 75 mcg capsule RxNorm: 719059 1 Capsule(s) PO QD 03/3104/10/2014 Inactive Activella 1 mg-0.5 mg tablet RxNorm: 3044144 1 Tablet(s) PO QD 03/0109/11/2014 Inactive bupropion HCl SR 100 mg tablet,sustained-release RxNorm: 993 503 1 Tablet(s) PO BID 03/04/2014 08/30/2014 Inactive Activella 1 mg-0.5 mg tablet RxNorm: 2779701 1 Tablet(s) PO QD 01/2803/18/2014 Inactive levothyroxine 75 mcg capsule RxNorm: 757936 1 Capsule(s) PO QD 12/2904/08/2014 Inactive simvastatin 10 mg tablet RxNorm: 839591 1 Tablet(s) PO QHS 01/10/20 14 04/08/2014 Inactive cyclobenzaprine 10 mg tablet RxNorm: 315780 1 Tablet(s) PO TID prn spasm 01/09/2014 04/08/2014 Inactive Cipro 500 mg tablet RxNorm: 356061 1 Tablet(s) PO BID 12/25/201304/2013 Inactive Cipro 500 mg tablet RxNorm: 253846 1 Tablet(s) PO BID 12/25/201311/29 Inactive bupropion HCl SR 100 mg tablet,sustained-release RxNorm: 993 503 1 Tablet(s) PO QAM 12/11/2013 03/03/2014 Inactive cephalexin 500 mg capsule RxNorm: 957676 1 Capsule(s) PO QOD 201304/09/2014 Inactive Xanax 1 mg tablet RxNorm: 329223 1-2 Tablet(s) PO QHS 10/15/201310/29 Inactive simvastatin 10 mg tablet RxNorm: 242858 1 Tablet(s) PO QHS 10/11/19 14 01/07/2014 Inactive Celexa 40 mg tablet RxNorm: 364291 Tablet(s) PO TAKE 1 TABLET BY MOUTH ONCE DAILY. 09/18/2013 09/17/2013 Inactive Xanax 1 mg tablet RxNorm: 970463 1-2 Tablet(s) PO QHS 08/13/201308/28 Inactive simvastatin 10 mg tablet RxNorm: 160420 1 Tablet(s) PO QHS 07/12/19 14 10/08/2013 Inactive bupropion HCl SR 100 mg tablet,sustained-release RxNorm: 993 503 1 Tablet(s) PO QAM 05/22/2013 11/17/2013 Inactive Pamelor 10 mg capsule RxNorm: 426374 1 Capsule(s) PO QHS for PLATA /sleep 05/22/2013 06/04/2013 Inactive Xanax 1 mg tablet RxNorm: 398531 1-2 Tablet(s) PO QHS 05/15/201305/29 Inactive Pamelor 10 mg capsule RxNorm: 712155 1 Capsule(s) PO QHS for PLATA /sleep 05/15/2013 05/21/2013 Inactive Xanax 1 mg tablet RxNorm: 781751 1 Tablet(s) PO QHS 04/27/20132013 Inactive Zovirax 800 mg tablet RxNorm: 562447 1 Tablet(s) PO TID 04/05/2013 Inactive Xanax 1 mg tablet RxNorm: 786693 1 Tablet(s) PO QHS 04/03/2013 No Sto p Date Active bupropion HCl SR 100 mg tablet,sustained-release RxNorm: 993 503 1 Tablet(s) PO QAM 03/26/2013 05/21/2013 Inactive bupropion HCl SR 100 mg tablet,sustained-release RxNorm: 993 503 1 Tablet(s) PO QAM 03/06/2013 03/25/2013 Inactive Pamelor 10 mg capsule RxNorm: 543926 1 Capsule(s) PO QHS for PLATA /sleep 02/14/2013 05/14/2013 Inactive levothyroxine 75 mcg capsule RxNorm: 276602 1 Capsule(s) PO QD 12/2901/08/2014 Inactive simvastatin 10 mg tablet RxNorm: 202314 1 Tablet(s) PO QHS TAKE 1 TABLET BY MOUTH ONCE DAILY AT BEDTIME. 01/15/2013 07/10/2013 Inactive cyclobenzaprine 10 mg tablet RxNorm: 999434 1 Tablet(s) PO TID prn spasm 12/25/2012 06/22/2013 Inactive Pamelor 10 mg capsule RxNorm: 174534 1 Capsule(s) PO QHS for PLATA /sleep 11/29/2012 02/14/2013 Inactive Celexa 40 mg tablet RxNorm: 198376 Tablet(s) PO TAKE 1 TABLET BY MOUTH ONCE DAILY. 10/11/2012 09/17/2013 Inactive simvastatin 10 mg tablet RxNorm: 441864 Tablet(s) PO TA KE 1 TABLET BY MOUTH ONCE DAILY AT BEDTIME. 10/11/2012 01/14/2013 Inactive simvastatin 10 mg tablet RxNorm: 051518 1 Tablet(s) PO QD 07/11/2012 10/08/2012 Inactive simvastatin 10 mg tablet RxNorm: 097174 1 Tablet(s) PO QD 04/14/2012 07/11/2012 Inactive simvastatin 10 mg tablet RxNorm: 316547 1 Tablet(s) PO QD 04/14/2012 04/13/2012 Inactive Celexa 40 mg tablet RxNorm: 514218 1 Tablet(s) PO QD 03/15/201209/10 Inactive cyclobenzaprine 10 mg tablet RxNorm: 869933 1 Tablet(s) PO TID prn spasm 02/02/2012 02/01/2012 Inactive cyclobenzaprine 10 mg tablet RxNorm: 657890 1 Tablet(s) PO TID prn spasm 02/02/2012 07/30/2012 Inactive Diflucan 100 mg Tab RxNorm: 967729 1 Tablet(s) PO QD 08/17/201108/22 Inactive Cipro 250 mg Tab RxNorm: 589714 1 Tablet(s) PO QD 08/17/2011 10/15/19 12 Inactive Levaquin 500 mg Tab RxNorm: 723788 1 Tablet(s) PO QD 08/17/201108/22 Inactive Pyridium 200 mg Tab RxNorm: 8992954 1 Tablet(s) PO TID 10/14/2010 Inactive may turn urine orange-red color. Cipro 500 mg Tab RxNorm: 532044 1 Tablet(s) PO BID 10/14/2010 011 Inactive levothyroxine 75 mcg capsule RxNorm: 095661 1 Capsule(s) PO QD 12/3001/14/2011 Inactive Vitamin D3 5,000 unit tablet RxNorm: 397096 1 Tablet(s) PO QD No Star t Date Active Nasacort 55 mcg nasal spray aerosol RxNorm: 8681547 2 Sp ray NASAL each nostril QHS No Start Date Active cyclobenzaprine 10 mg tablet RxNorm: 438703 1 Tablet(s) PO TID as needed No Start Date 11/22/2018 Inactive Vitamin D2 1,000 unit capsule RxNorm: 041835 3 Capsule(s) PO QD No Start Date 11/16/2017 Inactive diclofenac sodium 75 mg tablet,delayed release RxNorm: 20211 6 1 Tablet(s) PO BID No Start Date 03/16/2016 Inactive cephalexin 500 mg capsule RxNorm: 173678 1 Capsule(s) PO QOD No Sta rt Date 12/04/2013 Inactive cyclobenzaprine 10 mg tablet RxNorm: 939092 1 Tablet(s) PO QHS No S tart Date 02/01/2012 Inactive loratadine 10 mg tablet RxNorm: 228185 1 Tablet(s) PO QHS No Start Date 05/14/2019 Inactive hydrocodone 5 mg-acetaminophen 500 mg tablet RxNorm: 932284 1 -2 Tablet(s) PO Q6H as needed No Start Date 08/09/2018 Inactive etodolac 400 mg tablet RxNorm: 181106 1 Tablet(s) PO TID No Start D ate 09/17/2018 Inactive Xanax 1 mg tablet RxNorm: 569643 1 Tablet(s) PO QHS No Start Date 04/2013 Inactive Vitamin D3 1,000 unit capsule RxNorm: 525386 1 Capsule(s) PO QD No Start Date 06/12/2014 Inactive estradiol 2 mg tablet RxNorm: 497120 1/2 Tablet(s) PO QD No Start D ate 03/05/2013 Inactive Celexa 40 mg tablet RxNorm: 335205 1 Tablet(s) PO QD No Start Date Inactive Activella 1 mg-0.5 mg tablet RxNorm: 1406813 1 Tablet(s) PO QD No S tart Date 07/10/2012 Inactive medroxyprogesterone 5 mg tablet RxNorm: 0947730 1/2 Tablet(s) PO QD No Start Date 03/05/2013 Inactive levothyroxine 88 mcg tablet RxNorm: 278234 1 Tablet(s) PO QD No Sta rt Date 02/26/2015 Inactive Keflex 500 mg capsule RxNorm: 860134 1 Capsule(s) PO PRN No Start D ate 08/16/2011 Inactive Activella 1 mg-0.5 mg tablet RxNorm: 3798637 1 Tablet(s) PO QHS No Start Date 03/27/2017 Inactive Activella 1 mg-0.5 mg tablet RxNorm: 7831167 1 Tablet(s) PO QD No S tart Date 02/06/2014 Inactive Flexeril 10 mg Tab RxNorm: 341613 1 Tablet(s) PO TID No Start Date Inactive prn spasm simvastatin 10 mg tablet RxNorm: 492550 1 Tablet(s) PO QD No Start Date 04/13/2012 Inactive Medication Administered No Medication Administered data Immunizations Vaccine Codes Date Status Influenza CVX: 135 01/16/2019 Complete Pneumococcal CVX: 133 01/16/2019 Complete Results No Results data Procedures Procedure Codes Date URINE CULTURE/ COLONY COUNT CPT-4: 31311 07/26/2019 URINALYSIS NONAUTO W/O SCOPE CPT-4: 79391 07/17/2019 URINE CULTURE/ COLONY COUNT CPT-4: 11147 07/17/2019 DEXAMETHASONE SODIUM PHOS CPT-4: J1100 05/14/2019 THER/PROPH/DIAG INJ SC/IM CPT-4: 31629 05/14/2019 TRIAMCINOLONE ACET INJ NOS CPT-4: J3301 05/14/2019 FLU VACC PRSV FREE INC ANTIG 65 AND OLDER CPT-4: 95070 01/16/2019 FLU VACC PRSV FREE INC ANTIG 65 AND OLDER CPT-4: 42187 01/16/2019 PNEUMOCOCCAL VACC 13 NARESH IM CPT-4: 00294 01/16/2019 SKIN FUNGI CULTURE CPT-4: 07803 01/16/2019 IMMUNIZATION ADMIN CPT-4: 88653 01/16/2019 IMMUNIZATION ADMIN EACH ADD CPT-4: 32649 01/16/2019 THER/PROPH/DIAG INJ SC/IM CPT-4: 72376 01/17/2018 KETOROLAC TROMETHAMINE INJ CPT-4: J1885 01/17/2018 THER/PROPH/DIAG INJ SC/IM CPT-4: 86535 01/17/2018 PROMETHAZINE HCL INJECTION CPT-4: J2550 01/17/2018 URINALYSIS NONAUTO W/O SCOPE CPT-4: 28730 12/29/2017 URINE CULTURE/ COLONY COUNT CPT-4: 41042 12/29/2017 THER/PROPH/DIAG INJ SC/IM CPT-4: 84088 11/30/2017 TRIAMCINOLONE ACET INJ NOS CPT-4: J3301 11/30/2017 DEXAMETHASONE SODIUM PHOS CPT-4: J1100 11/30/2017 CEFTRIAXONE SODIUM INJECTION CPT-4: J0696 11/29/2017 THER/PROPH/DIAG INJ SC/IM CPT-4: 46344 11/29/2017 CEFTRIAXONE SODIUM INJECTION CPT-4: J0696 11/28/2017 THER/PROPH/DIAG INJ SC/IM CPT-4: 29985 11/28/2017 URINALYSIS NONAUTO W/O SCOPE CPT-4: 60167 10/10/2017 THER/PROPH/DIAG INJ SC/IM CPT-4: 90534 10/10/2017 TRIAMCINOLONE ACET INJ NOS CPT-4: J3301 10/10/2017 DEXAMETHASONE SODIUM PHOS CPT-4: J1100 10/10/2017 CEFTRIAXONE SODIUM INJECTION CPT-4: J0696 10/10/2017 THER/PROPH/DIAG INJ SC/IM CPT-4: 10290 10/10/2017 URINE CULTURE/ COLONY COUNT CPT-4: 28374 10/10/2017 THER/PROPH/DIAG INJ SC/IM CPT-4: 16374 11/02/2016 KETOROLAC TROMETHAMINE INJ CPT-4: J1885 11/02/2016 THER/PROPH/DIAG INJ SC/IM CPT-4: 40932 06/15/2016 TRIAMCINOLONE ACET INJ NOS CPT-4: J3301 06/15/2016 DEXAMETHASONE SODIUM PHOS CPT-4: J1100 06/15/2016 THER/PROPH/DIAG INJ SC/IM CPT-4: 12762 04/09/2016 KETOROLAC TROMETHAMINE INJ CPT-4: J1885 04/09/2016 PROMETHAZINE HCL INJECTION CPT-4: J2550 04/09/2016 EXC TR-EXT B9+ERASMO 0.5 CM< CPT-4: 62701 06/12/2015 URINALYSIS NONAUTO W/O SCOPE CPT-4: 03060 05/05/2015 URINE CULTURE/ COLONY COUNT CPT-4: 94533 05/05/2015 URINALYSIS NONAUTO W/O SCOPE CPT-4: 29988 03/24/2015 URINALYSIS NONAUTO W/O SCOPE CPT-4: 78802 02/27/2015 URINE CULTURE/ COLONY COUNT CPT-4: 23454 02/27/2015 THER/PROPH/DIAG INJ SC/IM CPT-4: 73679 04/18/2014 KETOROLAC TROMETHAMINE INJ CPT-4: J1885 04/18/2014 THER/PROPH/DIAG INJ SC/IM CPT-4: 42360 06/05/2013 TRIAMCINOLONE ACET INJ NOS CPT-4: J3301 06/05/2013 THER/PROPH/DIAG INJ SC/IM CPT-4: 30252 11/29/2012 KETOROLAC TROMETHAMINE [facility] CPT-4: J1885 11/29/2012 URINALYSIS NONAUTO W/O SCOPE CPT-4: 90177 07/11/2012 URINE CULTURE/ COLONY COUNT CPT-4: 20920 07/11/2012 OCCULT BLOOD FECES CPT-4: 91306 02/17/2012 URINALYSIS NONAUTO W/O SCOPE CPT-4: 52916 08/27/2011 URINE CULTURE/ COLONY COUNT CPT-4: 66864 08/27/2011 URINALYSIS NONAUTO W/O SCOPE CPT-4: 21915 08/17/2011 URINE CULTURE/ COLONY COUNT CPT-4: 67957 08/17/2011 URINALYSIS NONAUTO W/O SCOPE CPT-4: 81562 12/28/2010 URINE CULTURE/ COLONY COUNT CPT-4: 37478 12/28/2010 URINALYSIS NONAUTO W/O SCOPE CPT-4: 37701 11/09/2010 URINE CULTURE/ COLONY COUNT CPT-4: 02603 11/09/2010 URINALYSIS NONAUTO W/O SCOPE CPT-4: 79957 10/29/2010 URINE CULTURE/ COLONY COUNT CPT-4: 39579 10/29/2010 URINE CULTURE/ COLONY COUNT CPT-4: 76424 10/14/2010 URINALYSIS NONAUTO W/O SCOPE CPT-4: 93049 10/14/2010 Vital Signs Date Vital 07/17/2019 Blood [...] 1: 122/74 Code: 8480-6 BMI: 22.0 Code: 52393-3 Heart Rate 1: 72 bpm Height: 5'3" [...] 1: 126/72 Code: 8480-6 BMI: 22.7 Code: 10576-5 Heart Rate 1: 72 bpm Height: 5'3" [...] 1: 112/70 Code: 8480-6 BMI: 22.0 Code: 92807-7 Heart Rate 1: 80 bpm Height: 5'3" [...] 1: 122/64 Code: 8480-6 BMI: 21.4 Code: 75049-9 Heart Rate 1: 88 bpm Height: 5'3" Respiratory Rate: 22 bpm SpO2: 96% Tempera ture: 36.8 (C) / 98.2 (F) Weight: 121 lbs 06/22/2017 Blood Pressure 1: 124/78 Code: 8480-6 BMI: 21.6 Code: 33250-5 Heart Rate 1: 76 bpm Height: 5'3" Respiratory Rate: 20 bpm Temperature: 36 .8 (C) / 98.3 (F) Weight: 122 lbs 03/28/2017 Blood Pressure 1: 92/60 Code: 8480-6 BMI: 20.4 C ode: 62235-4 Heart Rate 1: 72 bpm Height: 5'3" Respiratory Rate: 20 bpm Temperature: 36 .9 (C) / 98.4 (F) Weight: 115 lbs 02/16/2017 Blood Pressure 1: 106/70 Code: 8480-6 BMI: 21.3 Code: 11116-3 Heart Rate 1: 82 bpm Height: 5'3" Respiratory Rate: 22 bpm SpO2: 97% Tempera ture: 36.1 (C) / 97.0 (F) Weight: 120 lbs 09/06/2016 Blood Pressure 1: 118/64 Code: 8480-6 BMI: 22.7 Code: 17563-7 Heart Rate 1: 78 bpm Height: 5'3" Respiratory Rate: 20 bpm SpO2: 98% Tempera ture: 36.2 (C) / 97.2 (F) Weight: 128 lbs 08/16/2016 Blood Pressure 1: 118/78 Code: 8480-6 BMI: 22.1 Code: 97689-0 Heart Rate 1: 78 bpm Height: 5'3" Respiratory Rate: 20 bpm SpO2: 97% Tempera ture: 36.2 (C) / 97.1 (F) Weight: 125 lbs 07/19/2016 Blood Pressure 1: 116/68 Code: 8480-6 BMI: 22.5 Code: 61202-4 Heart Rate 1: 76 bpm Height: 5'3" Respiratory Rate: 20 bpm Temperature: 36 .8 (C) / 98.2 (F) Weight: 127 lbs 07/06/2016 Blood Pressure 1: 106/70 Code: 8480-6 BMI: 22.5 Code: 62302-6 Heart Rate 1: 72 bpm Height: 5'3" Respiratory Rate: 20 bpm SpO2: 97% Tempera ture: 36.8 (C) / 98.2 (F) Weight: 127 lbs 06/15/2016 Blood Pressure 1: 136/76 Code: 8480-6 BMI: 22.9 Code: 32812-0 Heart Rate 1: 74 bpm Height: 5'3" Respiratory Rate: 18 bpm SpO2: 98% Tempera ture: 36.4 (C) / 97.6 (F) Weight: 129 lbs 04/09/2016 Blood Pressure 1: 124/78 Code: 8480-6 BMI: 23.0 Code: 49633-5 Heart Rate 1: 86 bpm Height: 5'3" Respiratory Rate: 20 bpm SpO2: 96% Tempera ture: 36.5 (C) / 97.7 (F) Weight: 130 lbs 03/17/2016 Blood Pressure 1: 116/74 Code: 8480-6 BMI: 23.4 Code: 15768-8 Heart Rate 1: 84 bpm Height: 5'3" Respiratory Rate: 20 bpm SpO2: 97% Tempera ture: 36.8 (C) / 98.3 (F) Weight: 132 lbs 11/13/2015 Blood Pressure 1: 124/78 Code: 8480-6 BMI: 23.4 Code: 05488-5 Heart Rate 1: 88 bpm Height: 5'3" Respiratory Rate: 24 bpm SpO2: 98% Tempera ture: 36.8 (C) / 98.2 (F) Weight: 132 lbs 06/12/2015 Blood Pressure 1: 126/78 Code: 8480-6 BMI: 23.6 Code: 78073-8 Heart Rate 1: 80 bpm Height: 5'3" Respiratory Rate: 20 bpm Temperature: 36 .9 (C) / 98.4 (F) Weight: 133 lbs 04/22/2015 Blood Pressure 1: 126/68 Code: 8480-6 BMI: 23.6 Code: 95487-7 Heart Rate 1: 80 bpm Height: 5'3" Respiratory Rate: 20 bpm Temperature: 36 .6 (C) / 97.9 (F) Weight: 133 lbs 03/24/2015 Blood Pressure 1: 116/66 Code: 8480-6 BMI: 22.9 Code: 82263-4 Heart Rate 1: 74 bpm Height: 5'3" Respiratory Rate: 20 bpm Temperature: 36 .4 (C) / 97.6 (F) Weight: 129 lbs 02/27/2015 Blood Pressure 1: 106/64 Code: 8480-6 BMI: 22.7 Code: 53776-2 Heart Rate 1: 74 bpm Height: 5'3" Respiratory Rate: 20 bpm Temperature: 36 .8 (C) / 98.2 (F) Weight: 128 lbs 06/13/2014 Blood Pressure 1: 104/66 Code: 8480-6 BMI: 22.7 Code: 12187-7 Heart Rate 1: 84 bpm Height: 5'3" Respiratory Rate: 20 bpm Temperature: 37 .0 (C) / 98.6 (F) Weight: 128 lbs 04/18/2014 Blood Pressure 1: 112/62 Code: 8480-6 BMI: 22.0 Code: 69949-9 Heart Rate 1: 82 bpm Height: 5'3" Respiratory Rate: 18 bpm Temperature: 36 .4 (C) / 97.6 (F) Weight: 124 lbs 12/05/2013 Blood Pressure 1: 106/70 Code: 8480-6 BMI: 23.7 Code: 39322-3 Heart Rate 1: 84 bpm Height: 5'3" [...] 1: 126/88 Code: 8480-6 BMI: 22.3 Code: 42904-7 Heart Rate 1: 96 bpm Height: 5'4" Respiratory Rate: 20 bpm Temperature: 37 .7 (C) / 99.9 (F) Weight: 130 lbs 11/29/2012 Blood Pressure 1: 122/76 Code: 8480-6 BMI: 23.0 Code: 00864-0 Heart Rate 1: 84 bpm Height: 5'4" Respiratory Rate: 20 bpm Temperature: 36 .9 (C) / 98.4 (F) Weight: 134 lbs 09/26/2012 Blood Pressure 1: 114/76 Code: 8480-6 BMI: 23.0 Code: 93159-7 Heart Rate 1: 84 bpm Height: 5'4" Respiratory Rate: 20 bpm Temperature: 37 .3 (C) / 99.1 (F) Weight: 134 lbs 07/11/2012 Blood Pressure 1: 126/78 Code: 8480-6 BMI: 23.7 Code: 03947-5 Heart Rate 1: 76 bpm Height: 5'4" Respiratory Rate: 20 bpm Temperature: 37 .1 (C) / 98.7 (F) Weight: 138 lbs 02/02/2012 Blood Pressure 1: 108/70 Code: 8480-6 BMI: 23.2 Code: 18545-4 Heart Rate 1: 88 bpm Height: 5'4" Respiratory Rate: 20 bpm Temperature: 36 .4 (C) / 97.6 (F) Weight: 135 lbs 08/17/2011 Blood Pressure 1: 108/70 Code: 8480-6 BMI: 23.2 Code: 29863-1 Heart Rate 1: 72 bpm Height: 5'4" Respiratory Rate: 20 bpm Temperature: 36 .8 (C) / 98.2 (F) Weight: 135 lbs 10/14/2010 Blood Pressure 1: 120/72 Code: 8480-6 BMI: 23.4 Code: 64251-0 Heart Rate 1: 78 bpm Height: 5'3" [...] Diagnosis: Urinary tract infection[ICD10: N39.0] Alexandra CARROLL [employer] CPT-4: 70853 07/26/2019 ([id number]) OFFICE/OUTPATIENT VISIT EST Diagnosis: Urinary tract infection, site not specified[ICD10: N39.0] Diagnosis: Dysuria[ICD10: R30.0] Vandana CARROLL DO [facility] CPT-4: 86196 07/17/2019 ([id number]) OFFICE/OUTPATIENT VISIT EST Diagnosis: Allergic dermatitis[ICD10: L23.9] Alexandra [facility] [employer] CPT-4: 11022 06/26/2019 ([id number]) OFFICE/OUTPATIENT VISIT EST Diagnosis: Contact dermatitis due to plant[ICD10: L25.5] Diagnosis: Cellulitis of left arm[ICD10: L03.114] Vandana CARROLL [employer] CPT-4: 83126 05/14/2019 ([id number]) OFFICE/OUTPATIENT VISIT EST Diagnosis: Ventral hernia[ICD10: K43.9] Diagnosis: Incisional hernia[ICD10: K43.2] Alexandra CARROLL DO [employer] CPT-4: 38590 04/10/2019 ([id number]) OFFICE/OUTPATIENT VISIT EST Diagnosis: Insomnia[ICD10: G47.00] Diagnosis: Thrombocytosis[ICD10: D47.3] Alexandra [facility] [employer] CPT-4: 28132 02/14/2019 ([id number]) OFFICE/OUTPATIENT VISIT EST Diagnosis: Small bowel obstruction[ICD10: K56.609] Diagnosis: FLU VACCINE[ICD10: Z23] Diagnosis: PNEUMOCOCCAL VACCINE[ICD10: Z23] Diagnosis: Onychomycosis[ICD10: B35.1] Alexandra KUNZ [facility] CPT-4: 75781 01/16/2019 ([id number]) OFFICE/OUTPATIENT VISIT EST Diagnosis: Diarrhea, unspecified[ICD10: R19.7] Diagnosis: Radiculopathy, lumbosacral region[ICD10: M54.17] Alexandra CARROLL [facility] CPT-4: 86274 09/18/2018 OFFICE/OUTPATIENT VISIT EST Diagnosis: Other intervertebral disc degeneration, lumbar region[ICD10: M51.36] Diagnosis: Sacroiliitis, not elsewhere classified[ICD10: M46.1] Diagnosis: Obstructive sleep apnea (adult) (pediatric)[ICD10: G47.33] [facility] 70504 08/10/2018 ([id number]) OFFICE/OUTPATIENT VISIT EST Diagnosis: Fracture of unspecified part of left clavicle, subsequent encounter for fracture with routine healing[ICD10: S42.002D] Diagnosis: Cervicalgia[ICD10: M54.2] Diagnosis: Radiculopathy, lumbosacral region[ICD10: M54.17] Alexandra CARROLL [facility] CPT-4: 59196 03/27/2018 ([id number]) OFFICE/OUTPATIENT VISIT EST Diagnosis: Fracture of unspecified part of left clavicle, subsequent encounter for fracture with routine healing[ICD10: S42.002D] Diagnosis: Other intervertebral disc degeneration, lumbar region[ICD10: M51.36] Diagnosis: Unspecified fracture of first thoracic vertebra, subsequent encounter for fracture with routine healing[ICD10: S22.019D] Diagnosis: Unspecified fracture of second thoracic vertebra, subsequent encounter for fracture with routine healing[ICD10: S22.029D] [facility] 64984 02/23/2018 ([id number]) OFFICE/OUTPATIENT VISIT EST Diagnosis: Fracture of unspecified part of left clavicle, subsequent encounter for fracture with routine healing[ICD10: S42.002D] Diagnosis: Unspecified fracture of first thoracic vertebra, subsequent encounter for fracture with routine healing[ICD10: S22.019D] Diagnosis: Unspecified fracture of second thoracic vertebra, subsequent encounter for fracture with routine healing[ICD10: S22.029D] Alexandra CARROLL [facility] CPT-4: 85810 01/24/2018 ([id number]) OFFICE/OUTPATIENT VISIT EST Diagnosis: Migraine, unspecified, not intractable, without status migrainosus[ICD10: G43.909] Alexandra CARROLL [facility] CPT - 4: 62110 01/17/2018 ([id number]) OFFICE/OUTPATIENT VISIT EST Diagnosis: Hematuria, unspecified[ICD10: R31.9] Diagnosis: Other intervertebral disc degeneration, lumbar region[ICD10: M51.36] Diagnosis: Retention of urine, unspecified[ICD10: R33.9] Alexandra Danegina Crawford DANEGINA [facility] CPT-4: 84353 12/29/2017 OFFICE/OUTPATIENT VISIT EST Diagnosis: Fracture of [...] Diagnosis: Low back pain[ICD10: M54.5] Alexandra KUNZ [facility] CPT-4: 57069 12/06/2017 ([id number]) OFFICE/OUTPATIENT VISIT EST Diagnosis: Cellulitis of right upper limb[ICD10: L03.113] Diagnosis: Allergy status to other antibiotic agents status[ICD10: Z88.1] Vandana Patricksasha CARROLL [facility] CPT-4: 93955 12/01/2017 ([id number]) OFFICE/OUTPATIENT VISIT EST Diagnosis: Cellulitis of right upper limb[ICD10: L03.113] Diagnosis: Allergy status to other antibiotic agents status[ICD10: Z88.1] Vandana CARROLL DO [facility] CPT-4: 40017 11/30/2017 ([id number]) OFFICE/OUTPATIENT VISIT EST Diagnosis: Cellulitis of right upper limb[ICD10: L03.113] Vandana CARROLL DO [facility] CPT-4: 81682 11/29/2017 ([id number]) OFFICE/OUTPATIENT VISIT EST Diagnosis: Cellulitis of right upper limb[ICD10: L03.113] Vandana CARROLL DO [facility] CPT-4: 91971 11/28/2017 ([id number]) OFFICE/OUTPATIENT VISIT EST Diagnosis: Other intervertebral disc degeneration, lumbar region[ICD10: M51.36] Diagnosis: Other retention of urine[ICD10: R33.8] Diagnosis: Primary insomnia[ICD10: F51.01] Diagnosis: Other spondylosis, site unspecified[ICD10: M47.899] Alexandra CARROLL DO [facility] CPT-4: 74081 11/17/2017 ([id number]) OFFICE/OUTPATIENT VISIT EST Diagnosis: Radiculopathy, lumbosacral region[ICD10: M54.17] Diagnosis: Other retention of urine[ICD10: R33.8] Diagnosis: Urinary tract infection, site not specified[ICD10: N39.0] Vandana CARROLL DO [facility] CPT-4: 38914 10/10/2017 ([id number]) PREV VISIT EST AGE 40-64 Diagnosis: Encounter for general adult medical examination without abnormal findings[ICD10: Z00.00] Diagnosis: Other intervertebral disc degeneration, lumbar region[ICD10: M51.36] Diagnosis: Hypothyroidism, unspecified[ICD10: E03.9] Diagnosis: Mixed hyperlipidemia[ICD10: E78.2] Alexandra MARINROSE INGRID CARROLL [employer] [facility] CPT-4: 50668 06/22/2017 ([id number]) OFFICE/OUTPATIENT VISIT EST Diagnosis: URI, ACUTE[ICD10: J06.9] Alexandra PAREKH [facility] CPT-4: 29931 03/28/2017 OFFICE/OUTPATIENT VISIT EST Diagnosis: Acute sinusitis, unspecified[ICD10: J01.90] Vandana CARROLL DO [facility] CPT-4: 14528 02/16/2017 ([id number]) OFFICE/OUTPATIENT VISIT EST Diagnosis: Migraine, unspecified, not intractable, without status migrainosus[ICD10: G43.909] Alexandra CARROLL DO [facility] CPT - 4: 69851 11/02/2016 ([id number]) OFFICE/OUTPATIENT VISIT EST Diagnosis: Pain in thoracic spine[ICD10: M54.6] Diagnosis: Chondrocostal junction syndrome [Tietze][ICD10: M94.0] Alexandra CARROLL [facility] CPT-4: 57087 09/06/2016 OFFICE/OUTPATIENT VISIT EST Diagnosis: Acute sinusitis, unspecified[ICD10: J01.90] Vidya SpicerLarry ALEXANDRA CARROLL [facility] CPT-4: 40015 08/16/2016 ([id number]) OFFICE/OUTPATIENT VISIT EST Diagnosis: Primary insomnia[ICD10: F51.01] Diagnosis: Cramp and spasm[ICD10: R25.2] Diagnosis: Major depressive disorder, single episode, mild[ICD10: F32.0] Alexandra CARROLL [facility] CPT-4: 76403 07/19/2016 ([id number]) OFFICE/OUTPATIENT VISIT EST Diagnosis: Obstructive sleep apnea (adult) (pediatric)[ICD10: G47.33] Diagnosis: Other fatigue[ICD10: R53.83] Diagnosis: Allergic rhinitis due to pollen[ICD10: J30.1] Diagnosis: Headache[ICD10: R51] Alexadnra CARROLL [facility] CPT-4: 91370 07/06/2016 ([id number]) OFFICE/OUTPATIENT VISIT EST Diagnosis: Acute recurrent sinusitis, unspecified[ICD10: J01.91] Diagnosis: Allergic rhinitis due to pollen[ICD10: J30.1] Alexandra CARROLL [employer] [facility] CPT-4: 07120 06/15/2016 ([id number]) OFFICE/OUTPATIENT VISIT EST Diagnosis: Migraine, unspecified, not intractable, without status migrainosus[ICD10: G43.909] Diagnosis: Allergic rhinitis, unspecified[ICD10: J30.9] Nae CARORLL DO [facility] CPT-4: 11580 04/09/2016 ([id number]) OFFICE/OUTPATIENT VISIT EST Diagnosis: Hypothyroidism, unspecified[ICD10: E03.9] Diagnosis: Other fatigue[ICD10: R53.83] Diagnosis: Mixed hyperlipidemia[ICD10: E78.2] Diagnosis: Major depressive disorder, single episode, mild[ICD10: F32.0] Alexandra CARROLL [employer] [facility] CPT-4: 27412 03/17/2016 ([id number]) OFFICE/OUTPATIENT VISIT EST Diagnosis: Insomnia, unspecified[ICD10: G47.00] Diagnosis: Encounter for therapeutic drug level monitoring[ICD10: Z51.81] Nae CARROLL [employer] [facility] CPT-4: 66376 11/13/2015 ([id number]) OFFICE/OUTPATIENT VISIT EST Diagnosis: Hematuria, unspecified[ICD10: R31.9] Alexandra CARROLL [employer] [facility] CPT-4: 52117 05/05/2015 ([id number]) OFFICE/OUTPATIENT VISIT EST Diagnosis: Other intervertebral disc degeneration, lumbar region[ICD10: M51.36] Diagnosis: Radiculopathy, lumbosacral region[ICD10: M54.17] Alexandra CARROLL [employer] [facility] CPT-4: 01231 04/22/2015 ([id number]) OFFICE/OUTPATIENT VISIT EST Diagnosis: Low back pain[ICD10: M54.5] Diagnosis: Recurrent and persistent hematuria with unspecified morphologic changes[ICD10: N02.9] Alexandra CARROLL [employer] [facility] CPT-4: 43043 03/24/2015 ([id number]) OFFICE/OUTPATIENT VISIT EST Diagnosis: Acute sinusitis, unspecified[ICD10: J01.90] Diagnosis: Headache[ICD10: R51] Diagnosis: Retention of urine, unspecified[ICD10: R33.9] Diagnosis: Hypothyroidism, unspecified[ICD10: E03.9] Alexandra Orendvioletta SHAFFERALEXANDRA Ty VELANDVIOLETTA SALGUERO [employer] CPT-4: 08803 02/27/2015 ([id number]) PREV VISIT EST AGE 40-64 Diagnosis: ROUTINE MEDICAL EXAM[ICD9: V70.0] Diagnosis: HYPOTHYROIDISM[ICD9: 244.9] Diagnosis: HYPERLIPIDEMIA NEC/NOS[ICD9: 272.4] Alexandra CORDOBA Ty [facility] [employer] CPT-4: 06142 06/13/2014 ([id number]) OFFICE/OUTPATIENT VISIT EST Diagnosis: CEPHALGIA[ICD9: 784.0] Diagnosis: Nausea[ICD9: 787.02] Shalini KevinWendiroxanaabdirizak ALEXANDRA Ty [facility] [employer] CPT-4: 95480 04/18/2014 ([id number]) OFFICE/OUTPATIENT VISIT EST Diagnosis: INSOMNIA NOS[ICD9: 780.52] Diagnosis: Complicated grieving[ICD9: 309.0] Alexandra Danegina Louise SAri [facility] [employer] CPT-4: 49944 12/05/2013 ([id number]) OFFICE/OUTPATIENT VISIT EST Diagnosis: Muscle twitch[ICD9: 781.0] Diagnosis: ALLERGIC RHINITIS[ICD9: 477.9] Alexandra Danegina FORDE Macy CARROLL DO [employer] CPT-4: 46610 06/05/2013 ([id number]) OFFICE/OUTPATIENT VISIT EST Diagnosis: DEPRESSIVE DISORDER NEC[ICD9: 311] Alexandra QUINTERO S. DANENDER DO [employer] CPT-4: 78249 05/22/2013 OFFICE/OUTPATIENT VISIT EST Diagnosis: Shingles[ICD9: 053.9] Alexandra FORDE MacyAri DANENDER [facility] CPT-4: 81815 04/05/2013 ([id number]) OFFICE/OUTPATIENT VISIT EST Diagnosis: DEPRESSIVE DISORDER NEC[ICD9: 311] Alexandra QUINTERO S. DANENDER [employer] CPT-4: 89675 03/26/2013 ([id number]) OFFICE/OUTPATIENT VISIT EST Diagnosis: Complicated grieving[ICD9: 309.0] Alexandra Velalawandavioletta CARROLL [facility] CPT-4: 59916 03/06/2013 ([id number]) OFFICE/OUTPATIENT VISIT EST Diagnosis: CEPHALGIA, TENSION[ICD9: 307.81] Diagnosis: MIGRAINE NOS/NOT INTRCBL[ICD9: 346.90] Diagnosis: Cervicalgia[ICD9: 723.1] Alexandra Danelawandavioletta PLATT IZABELLA [facility] CPT-4: 66332 11/29/2012 ([id number]) OFFICE/OUTPATIENT VISIT EST Diagnosis: Jaw pain[ICD9: 784.92] Diagnosis: Shoulder pain[ICD9: 719.41] Diagnosis: Family history of premature coronary artery disease[ICD9: V17.3] Alexandra CARROLL [facility] CPT-4: 96834 09/26/2012 ([id number]) OFFICE/OUTPATIENT VISIT EST Diagnosis: ABDOMINAL PAIN[ICD9: 789.00] Diagnosis: Constipation[ICD9: 564.00] Diagnosis: Hematuria[ICD9: 599.70] Alexandra SHIPLEY [facility] CPT-4: 48502 07/11/2012 ([id number]) OFFICE/OUTPATIENT VISIT EST Diagnosis: ANEMIA NOS[ICD9: 285.9] Alexandra SHIPLEY [facility] CPT-4: 89382 02/17/2012 ([id number]) PREV VISIT EST AGE 40-64 Diagnosis: ROUTINE MEDICAL EXAM[ICD9: V70.0] Diagnosis: HYPOTHYROIDISM[ICD9: 244.9] Diagnosis: HYPERLIPIDEMIA NEC/NOS[ICD9: 272.4] Diagnosis: Obstructive sleep apnea[ICD9: 327.23] Alexandra Danegina TANIAGWENDOLYN JANEL Ty CARROLL [facility] CPT-4: 35330 02/02/2012 ([id number]) OFFICE/OUTPATIENT VISIT EST Diagnosis: URINARY TRACT INFECTION[ICD9: 599.0] Alexandra Danegina EDMUND DANIELLE Ty [facility]: 74434 08/27/2011 ([id number]) OFFICE/OUTPATIENT VISIT EST Diagnosis: URINARY TRACT INFECTION[ICD9: 599.0] Diagnosis: ACUTE CYSTITIS[ICD9: 595.0] [facility]andra [facility] CPT-4: 29097 08/17/2011 OFFICE/OUTPATIENT VISIT EST Diagnosis: URINARY TRACT INFECTION[ICD9: 599.0] Steph Bowen EDMUND [facility] CPT-4: 36781 10/14/2010 Plan of Care Planned Activity Notes [...] ICD-10 : N39.0 07/17/2019 Appointment: Vandana Crowe [address] [place], [place] [id number] ACUTE ILLNESS 07/17/2019 Patient Education: Cipro- [employer] Coupon [phone] [email or web address]/[email or web address]/resources/getResource/[email or web address] Completed 07/17/2019 Visit Diagnosis Plan: Allergic dermatitis Discussion: Could be numerous things that were given during surgery Continue benadryl Add Prednisone Notify if persists/worsens ICD-9 : 692.9 ICD-10 : L23.9 06/26/2019 Appointment: Alexandra Carroll WPtel: [facility] [facility] 06/26/2019 Patient Education: prednisone- [employer] Coupon [phone] https://www.[email or web address]/resources/getResource/61/[email or web address] Completed 06/26/2019 Visit Diagnosis Plan: Cellulitis of [...] injection a week pre-op and 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 ICD-9 : 692.6 ICD-10 : L25.5 05/14/2019 Appointment: Vandana Crowe [address] [place], [place] [id number] ACUTE ILLNESS 05/14/2019 Patient Education: Levaquin- [employer] Coupon [phone] [email or web address]/[employer]/resources/getResource/61/[email or web address] Completed 05/14/2019 Visit Diagnosis Plan: Ventral hernia Discussion: See s urgery for repair Discussed signs of incarceration or strangulation then is to report to ER ICD-9 : 553.20 ICD-10 : K43.9 04/10/2019 Appointment: Alexandra Carroll WPtel: [address] [place], [place] [phone] [place] left second message 04/10/19 at 10:20 ACUTE ILLNE SS 04/10/2019 Care Plan: Referral Order SNOMED-CT : 30 [id number] Pending 04/10/2019 Visit Diagnosis Plan: Insomnia Discussion: [...] : D47.3 02/14/2019 Appointment: Alexandra Carroll WPtel: [address] [place], [place] [phone] US FOLLOW UP 02/14/2019 Appointment: Alexandra Carroll WPtel: [address] [place], [place] [phone] US CANCELED 02/12/2019 Visit Diagnosis Plan: Onychomycosis Discussion: Send n ail for culture ICD-9 : 110.1 ICD-10 : B35.1 01/16/2019 Visit Diagnosis Plan: Small bowel obstruction Discussi on: S/P surgery in September with postop complications of wound dehiscence ICD-9 : 560.9 ICD-10 : K56.609 01/16/2019 Appointment: Alexandra Carroll WPtel: [phone] [facility] MEDICATION REVIEW 01/16/2019 Appointment: Alexandra Carroll WPtel: [address] [facility] US CANCELED 12/12/2018 Visit Diagnosis Plan: Diarrhea, unspecified Discussion : Due for updated colonoscopy ICD-9 : 787.91 ICD-10 : R19.7 09/18/2018 Visit Diagnosis Plan: Radiculopathy, lumbosacral regio n Discussion: Had left SI joint injection by Dr. Baig about 2 weeks ago and has fwup with him ICD-9 : 724.4 ICD-10 : M54.17 09/18/2018 Appointment: Alexandra Carroll WPtel: [address] [place], [place] [phone] US PATIENT CONSULT 15 09/18/2018 Care Plan: Referral Order SNOMED-CT : 30 [id number] Pending 09/18/2018 Visit Diagnosis Plan: Other intervertebral [...] : M46.1 08/10/2018 Appointment: Alexandra Carroll WPtel: [address] [place] [address] US MEDICATION REVIEW 08/10/2018 Care Plan: Referral Order SNOMED-CT : 30 [id number] Pending 08/10/2018 Appointment: Alexandra Carroll WPtel: [address] [place] [address] US CANCELED 04/17/2018 Visit Diagnosis Plan: Fracture [...] : M54.2 03/27/2018 Appointment: Alexandra Carroll WPtel: [address] [place] [address] US FOLLOW UP 03/27/2018 Visit Diagnosis Plan: [...] : S42.002D 02/23/2018 Appointment: Alexandra Carroll WPtel: [address] [place], [place] [id number] US FOLLOW UP 02/23/2018 Patient Education: gabapentin- [employer] Coupon [phone] https://[email or web address]/[email or web address]/resources/getResource/[email or web address] Completed 02/23/2018 Visit Diagnosis Plan: Fracture of unspec ified part of left clavicle, subsequent encounter for fracture with routine healing Discussion: Hold on PT and do home stretches Trial of gabapentin Recheck 4 weeks ICD-9 : V54.11 ICD-10 : S42.002D 01/24/2018 Appointment: Alexandra Carroll WPtel: [address] [place] [address] US FOLLOW UP 01/24/2018 Visit Diagnosis Plan: Migraine, unspecif ied, not intractable, without status migrainosus Discussion: Toradol and phenergan given ICD-9 : 346.90 ICD-10 : G43.909 01/17/2018 Appointment: Alexandra Carroll WPtel: [address] [place] [address] ACUTE ILLNESS 01/17/2018 Visit Diagnosis Plan: Retention [...] : M51.36 12/29/2017 Appointment: Alexandra Carroll WPtel: [address] [place] [address] ACUTE ILLNESS 12/29/2017 Care Plan: US EXAM PELVIC COMPLETE LOINC : 31427-5 Pending 12/29/2017 Care Plan: ECHO EXAM OF ABDOMEN LOINC : 40651-6 Pending 12/29/2017 Care Plan: Referral Order SNOMED-CT : [id number] [phone] Pending 12/29/2017 Visit Diagnosis Plan: Fracture of unspec ified part of left clavicle, subsequent encounter for fracture with routine healing Discussion: Start PT in another 7-14 days Off work for the rest of this week then may return to part-time work on 12/12/17 Fwup in 4 weeks ICD-9 : V54.11 ICD-10 : S42.002D 12/06/2017 Appointment: Alexandra Carroll WPtel: [id number] US FOLLOW UP 12/06/2017 Patient Education: Patient [...] ICD-10 : Z88.1 12/01/2017 Appointment: Vandana Crowe [address] [place] [address] FOLLOW UP 12/01/2017 Patient Education: Patient Medication [...] : Z88.1 11/30/2017 Appointment: Vandana Crowe [address] [id number] 11/30/2017 Patient Education: Patient Medication Summary Completed [...] ICD-10 : L03.113 11/29/2017 Appointment: Vandana Crowe [address] [place] [address] FOLLOW UP 11/29/2017 Patient Education: Patient Medication [...] : 682.3 ICD-10 : L03.113 11/28/2017 Appointment: Vanadna Crowe [address] [place], [place] [id number] ACUTE ILLNESS 11/28/2017 Patient Education: Patient Medication [...] M51.36 11/17/2017 Appointment: Alexandra Carroll [facility]Ptel[facility] [phone] [facility] MEDICATION REVIEW 11/17/2017 Patient Education: Patient Medication Summary Completed 11/17/2017 Care Plan: Referral Order SNOMED-CT : [id number] Pending 11/17/2017 Patient Education: Patient Medication Summary Completed 10/12/2017 Care Plan: MRI LUMBAR SPINE W/O DYE LOIN C : 85873-6 Pending 10/12/2017 Care Plan: X-RAY EXAM L-S SPINE 2/3 VWS LOINC : 75496-5 Pending 10/11/2017 Visit Diagnosis Plan: Other retention [...] medrol pack to start tomorrow. [facility] patient to start PT immediately with inversion table. instructed patient to go to ED immediately if she develops any incontinence with bowel or bladder. patient verbalized understanding. if no improvement, will need updated MRI and referral to surgeon. ICD-9 : 724.4 ICD-10 : M54.17 10/10/2017 Appointment: Vandana Crowe [address] [place], [place] [id number] ACUTE ILLNESS 10/10/2017 Patient Education: Patient Medication Summary Completed 10/10/2017 Appointment: Vandana Crowe [address] [place], [place] [id number] ACUTE ILLNESS 08/01/2017 Visit Diagnosis Plan: Other intervertebral disc degene ration, lumbar region Discussion: Core strengtheing and inversion table and if worsening will need updated MRI ICD-9 : 722.52 ICD-10 : M51.36 06/22/2017 Visit Diagnosis Plan: Encounter for [facility] adult medical examination without abnormal findings Discussion: Lab dis ussed Follow Up: 6 months ICD-9 : V70.0 ICD-10 : Z00.00 06/22/2017 Appointment: Alexandra Carroll WPtel: [address] [place] [address] Annual Well Visit 06/22/2017 Patient Education: Patient Medication Summary Completed 06/22/2017 Patient Education: Patient Medication Summary Completed 06/16/2017 Care Plan: COMPREH[place]AB[place] : 17572-6 Pending 06/16/2017 Care Plan: ASSAY THYROID STIM HORMONE Pen ding 06/16/2017 Care Plan: ASSAY OF FREE THYROXINE Pendin g 06/16/2017 Care Plan: LIPID PANEL LOINC : 42545-9 Pending 06/16/2017 Care Plan: CBC Pending 06/16/2017 [...] : J06.9 03/28/2017 Appointment: Alexandra Carroll WPtel: [facility] ACUTE ILLNESS 03/28/2017 Patient Education: Patient Medication Summary Completed 03/28/2017 Visit Diagnosis Plan: Acute sinusitis, unspecified Dis cussion: cefdinir and medrol dose pack prescribed to be taken as directed. tylenol/ibuprofen as needed. educated on importance of taking singulair or zyrtec daily to prevent worsening symptoms. keep hydrated. ICD-9 : 461.9 ICD-10 : J01.90 02/16/2017 Appointment: Vandana Crowe [address] [place] [address] ACUTE ILLNESS 02/16/2017 Patient Education: Patient Medication Summary Completed 02/16/2017 Appointment: Alexandra Carroll WPtel: [address] [place] [address] INJECTION 11/02/2016 Patient Education: Patient Medication Summary Completed 11/02/2016 Visit Diagnosis Plan: Pain in thoracic spine Discussio n: Increase flexeril to 10mg po BID Add Mobic 15mg po daily Towel stretch May see chiropractor to adjust ribs Notify if persists or worsening ICD-9 : 724.1 ICD-10 : M54.6 09/06/2016 Appointment: Alexandra Carroll WPtel: [address] [place] [address] ACUTE ILLNESS 09/06/2016 Patient Education: Patient Medication Summary Completed 09/06/2016 Visit Plan: Due to hx, ERx Cefdinir and Prednisone (discussed risks for both) Given bottle for nasal saline rinses Tylenol/Ibuprofen prn pain/fever Fluids/rest Discussed s/s of worsening, RTC if no improvement 08/16/2016 Appointment: Vidya Manuel WPtel: [facility] [address] ACUTE ILLNESS 08/16/2016 Patient Education: Patient [...] : F32.0 07/19/2016 Appointment: Alexandra Carroll WPtel: [address] [place], [place] [phone] 07/15 confirmed`sl FOLLOW UP 07/19/2016 Patient Education: [...] : J30.1 07/06/2016 Appointment: Alexandra Carroll WPtel: [address] [place], [place] [phone] 07/05 confirmed-sp FOLLOW UP 07/06/2016 Patient Education: [...] : J01.91 06/15/2016 Appointment: Alexandra Carroll WPtel: [address] [place], [place] [id number] 06/14 lm ~sl ACUTE ILLNESS 06/15/2016 Patient Education: Patient Medication Summary Completed 06/15/2016 Visit Diagnosis Plan: Migraine, unspecif ied, not intractable, without status migrainosus Discussion: Injection as above Drink ple nty of water No driving x 6 hours Rest No OTC nsaids today Follow up PRN Refill called of claritin-d ICD-9 : 346.90 ICD-10 : G43.909 04/09/2016 Appointment: [facility]ck[facility] [facility] [facility] 04/09/2016 Patient Education: Patient [...] : R53.83 03/17/2016 Appointment: Alexandra Carroll WPtel: [address] [place], [place] [id number] 03/16 nvm~sl 03/17 confirmed`sl FOLLOW UP 0 03/17/2016 Patient Education: Patient Medication Summary Completed 03/17/2016 Appointment: Alexandra Carroll WPtel: [address] [place], [place] [id number] 03/11 lm~sl 03/15lm `sl 03/15 confirmed`sl FOLLOW [...] same robert. If working well, continue the x5igogo office visits. Call if not working well, and will restart xanax at for sleep. 11/13/2015 Appointment: Woody Nae [address] [place], [place] [phone] 11/11 confirmed~sl FOLLOW UP 11/13/2015 Patient Education: Patient Medication Summary Completed 11/13/2015 Appointment: Alexandra Carroll WPtel: [address] [place], [place] [phone] Suture Removal 06/23/2015 Patient Education: Patient Medication Summary Completed 06/23/2015 Visit Plan: Removal of lesion above usin g 3-0 punch biopsy Return in 10 days for suture removal 06/12/2015 Appointment: Alexandra Carroll WPtel: [address] [place], [place] [phone] 06/10 lm ~sl ACUTE ILLNESS 06/12/2015 Patient Education: Patient Medication Summary Completed 06/12/2015 Referral: Soy Garcia WPtel: [address] [facility] [place] Schedule patient around lunch time and 3 weeks from 04/22/2015 ~sl Spoke with Kiesha at Dr. Sandoval Office and 04/24/15 and scheduled the patient ~sl 04/24/15 Patient is informed~sl 06/03 Patient canceled the appointment ~ sl Patient did not show up for scheduled appointment-sp Appoint ment Requested 05/21/2015 Appointment: Alexandra Carroll WPtel: [address] [place], [place] [phone] [facility] 05/05/2015 Patient Education: Patient Medication Summary Completed 05/05/2015 Visit Plan: Starts PT today Schedule wit h Dr. Garcia for epidural CT abdomen/pelvis results discussed Sees CUT OFF WORKER in April and will get checked then 04/22/2015 Appointment: Alexandra Carroll WPtel: [address] [place], [place] [phone] 04/21 confirmed~lb ACUTE ILLNESS 04/22/2015 Patient Education: Patient Medication Summary Completed 04/22/2015 Referral: Lincoln Hernandez WPtel: [address] [place] [address] [place] Referral Initiated 04/10/2015 Patient Education: Patient Medication Summary Completed 04/09/2015 Visit Plan: Start with lumosacral spine x-ray--will likely need MRI of L/S spine x-ray Needs urology--has had to have bladder stretched in past Tivorbex 03/24/2015 Appointment: Alexandra Carroll WPtel: [address] [place] [address] 03/21/15 appt confirmed cn ACUTE ILLNESS 03/24 Patient Education: Patient Medication Summary Completed 03/24/2015 Visit Plan: Saline nasal flushes prn. Ty lenol/Motrin prn headache. Notify if persists/symptoms worsening. Cefuroxime to cover both sinuses and UTI Culture urine Check lab 02/27/2015 Appointment: Alexandra Carroll WPtel: [address] [place] [address] 02/26/15 vm to confirm and need new insu meri on file is inactive cn....02/27/15 appt confirmed cn ACUTE ILLNESS 015 Patient Education: Patient Medication Summary Completed 02/27/2015 Visit Plan: Lab discussed Stop simvastat in Check lipids in 6mos Continue all other meds at current dose Had Pap and Mammo 3 weeks ago 06/13/2014 Appointment: Alexandra Carroll WPtel: [address] [place] [address] Annual Well Visit 06/13/2014 Patient Education: Patient Medication Summary Completed 06/13/2014 Appointment: Shalini Walters WPtel: [address] [place] [address] ACUTE ILLNESS 04/18/2014 Patient Education: Patient Medication Summary Completed 04/18/2014 Visit Plan: Check lab in May then fwup Can try decreasing xanax to 1mg q HS with melatonin 5-10mg q HS 12/05/2013 Appointment: Alexandra Carroll WPtel: [address] [place], [place] [phone] 12/04 FOLLOW UP 12/05/2013 Patient Education: Patient Medication Summary Completed 12/05/2013 Appointment: Alexandra Carroll WPtel: [address] [place], [place] [phone] 06/05/2013 Patient Education: Patient Medication Summary Completed 06/05/2013 Appointment: Alexandra Carroll WPtel: [address] [place] [address] FOLLOW UP 05/22/2013 Patient Education: Patient Medication Summary Completed 05/22/2013 Visit Plan: Zovirax for 2wks Notify if p ain worsens or if persists 04/05/2013 Appointment: Alexandra Carroll WPtel: [address] [place] [address] ACUTE ILLNESS 04/05/2013 Patient Education: Patient Medication Summary Completed 04/05/2013 Visit Plan: Keep Wellbutrin at current d ose Pt did see putaway driver for counseling 03/26/2013 Appointment: Alexandra Carrolltel: [address] [place] [address] ACUTE ILLNESS 03/26/2013 Patient Education: Patient Medication Summary Completed 03/26/2013 Visit Plan: Continue citalopram at curre nt dose Increase xanax to 1-2mg q HS for sleep Add Wellbutrin Sr 100mg q AM Start Counseling 03/06/2013 Appointment: Alexandra Carroll WPtel: [address] [place] [address] ACUTE ILLNESS 03/06/2013 Patient Education: Patient Medication Summary Completed 03/06/2013 Appointment: Alexandra Carroll WPtel: [address] [place] [address] ACUTE ILLNESS 11/29/2012 Patient Education: Patient Medication Summary Completed 11/29/2012 Appointment: Alexandar Carroll WPtel: [address] [place], [place] [id number] ACUTE ILL[facility] 09/26/2012 Patient Education: Patient Medication Summary Completed 09/26/2012 Appointment: Alexandra Carrolltel: [address] [place], [place] [id number] ACUTE ILLNESS 07/11/2012 Patient Education: Patient Medication Summary Completed 07/11/2012 Appointment: Alexandra Carroll WPtel: [address] [place], [place] [phone] US LAB 02/17/2012 Patient Education: Patient Medication Summary Completed 02/17/2012 Visit Plan: Check fasting lab Start annie y ca with Vit D Cont CPAP Mammo up-to-date Hemoccult card given 02/02/2012 Appointment: Alexandra Carroll WPtel: [address] [place] [address] PHYSICAL 02/02/2012 Patient Education: Patient Medication Summary Completed 02/02/2012 Appointment: Alexandra Carroll WPtel: [address] [place], [place] [phone] UA 08/27/2011 Patient Education: Patient Medication Summary Completed 08/27/2011 Visit Plan: Levaquin and Diflucan for 1w k Then cipro QOD for prophylaxis 08/17/2011 Appointment: Alexandra Carrolltel: [address] [place] [address] FOLLOW UP 08/17/2011 Patient Education: Patient Medication Summary Completed 08/17/2011 Appointment: Alexandra Carroll WPtel: [address] [place] [address] UA 12/28/2010 Patient Education: Patient Medication Summary Completed 12/28/2010 Appointment: Alexandra Carroll WPtel: [address] [place], [place] [phone] UA 11/09/2010 Patient Education: Patient Medication Summary Completed 11/09/2010 Appointment: Alexandra Carrolll: [address] [facility] UA 10/29/2010 Patient Education: Patient Medication Summary Completed 10/29/2010 Appointment: Steph Bowen WPtel: [phone] [facility] ACUTE ILLNESS 10/14/2010 Patient Education: Patient Medication Summary Completed 10/14/2010 Referral: Florian Baig WPtel: [facility] [address] Referral Initiated Referral: Paulo Albert WPtel: [phone] [id number] [place] Referral Appointment Requested Referral: Luis Enrique Jasso WPtel: [facility] [address] Referral Appointment Requested Referral: Florian Baig WPtel: [facility] [address] [place] Referral Appointment Requested Referral: Caleb Glaser WPtel: [address] [place] Referral Appointment Requested Referral: Florian Baig WPtel: [facility] [address] Referral Initiated Referral: Florian Baig WPtel: [facility] [address] [place] Referral Appointment Requested Instructions Comment [...] agrees with this trial. [place] cost comparison which is nearly the same robert. If working well, continue the [facility] office visits. Call if not working well, and will restart xanax at HS for sleep. . Removal of lesion above using 3-0 punc h biopsy Return in 10 days for suture removal . Starts PT today Schedule with Dr. Garcia for epidural CT abdomen/pelvis results discussed Sees CUT OFF WORKER in April and will get checked then [...]
[2019-09-02] MEDS ORDERED: ASPIRIN 81 MG CHEW (CHILDREN'S ASA) PO ONE (00:15)
[2019-09-02] MEDS ORDERED: NITROGLYCERIN 0.4 MG SL TABS BTL 25'S SL PRN (00:15)
--- OUTSIDE RECORDS SUMMARY | 2019-09-02 00:15 | XMS REPORT | CCD ---
Author Author Ilda Bowen APRN Organization [facility] Address [address] [place] [address] Phone Care Team Providers Care Trial Judge Name Role Phone Alexandra [facility] D.O., PP Unavailable CCM Unavailable Summary Purpose Interface Exchange Insurance Providers Payer name Policy type / Coverage type Covered alliance party ID Effective Begin Date Effective End Date WPS MEDICARE PART B [place] Medicare Part B [id number] 2019 Unknown [employer] [place] [employer] Medicare Part B [id number] Unknown Family History Family History data not found Social History Social History Element Codes Description Effective Dates Tobacco history SNOMED CT: 009740906 Nonsmoker 10/14/2010 Allergies, Adverse Reactions, Alerts Substance Reaction Codes Entered Date Inactivated Date Status MORPHINE SULFATE RxNorm: 2387896 10/14/2010 No Inactive Da te Active CEPHALOSPORINS [...] Fill Instructions cyclobenzaprine 10 mg tablet RxNorm: 260423 Tablet(s) Oral as neede d 07/17/2019 No Stop Date Active Cipro 500 mg tablet RxNorm: 697234 1 Tablet(s) Oral two times a day 07/17/2019 07/22/2019 Inactive Xanax 1 mg tablet RxNorm: 571653 1-2 Tablet(s) Oral e very night at bedtime as needed for sleep 07/10/2019 08/08/2019 Active Generic For:LAVELLE AX 1MG 10/11/2016 11:15:13 AM prednisone 20 mg tablet RxNorm: 219860 1 Tablet(s) Oral two harlan es a day 06/26/2019 07/03/2019 Inactive Amabelz 1 mg-0.5 mg tablet RxNorm: 9347109 1 Tablet(s) Oral QD 05/3007/17/2019 Inactive Trazadone 150 mg Tablet RxNorm: 1 Tablet(s) Oral every n ight at bedtime 05/14/2019 No Stop Date Active Levaquin 500 mg tablet RxNorm: 063799 1 Tablet(s) Oral QD 05/14/2019 05/21/2019 Inactive Xanax 1 mg tablet RxNorm: 463204 1-2 Tablet(s) Oral e very night at bedtime as needed for sleep 05/03/2019 06/01/2019 Inactive Generic For:LAVELLE AX 1MG 10/11/2016 11:15:13 AM cyclobenzaprine 10 mg tablet RxNorm: 530963 1 Tablet(s) Oral three times a day as needed for muscle spasm 02/12/2019 02/12/2019 Inactive Xanax 1 mg tablet RxNorm: 261580 1-2 Tablet(s) Oral e very night at bedtime as needed for sleep 02/09/2019 03/10/2019 Inactive Generic For:LAVELLE AX 1MG 10/11/2016 11:15:13 AM Xanax 1 mg tablet RxNorm: 336449 1-2 Tablet(s) Oral e very night at bedtime as needed for sleep 01/22/2019 02/08/2019 Inactive Generic For:LAVELLE AX 1MG 10/11/2016 11:15:13 AM Celexa 40 mg tablet RxNorm: 805703 1 Tablet(s) Oral QD 01/17/2019 Active - First Attempt Ref: [id number] Xanax 1 mg tablet RxNorm: 457827 1 Tablet(s) Oral every night a t bedtime 01/08/2019 01/21/2019 Inactive levothyroxine 88 mcg tablet RxNorm: 601393 TAKE 1 TABLET BY NINA TH DAILY 12/19/2018 06/16/2019 Inactive - First Attempt Ref: [id number] Xanax 1 mg tablet RxNorm: 018392 1 Tablet(s) Oral every night a t bedtime 12/06/2018 01/05/2019 Inactive Singulair 10 mg tablet RxNorm: 498593 1 Tablet(s) Oral every ni ght at bedtime 11/23/2018 11/17/2019 Active - First Attempt Ref: [id number] Celexa 40 mg tablet RxNorm: 134563 1 Tablet(s) Oral 11/23/20182018 Inactive - First Attempt Ref: [id number] cyclobenzaprine 10 mg tablet RxNorm: 813728 1 Tablet(s) Oral three times a day as needed for muscle spasm 11/23/2018 02/11/2019 Inactive Xanax 1 mg tablet RxNorm: 260284 1 Tablet(s) PO QHS 11/06/20182018 Inactive Xanax 1 mg tablet RxNorm: 916697 1 Tablet(s) PO QHS 09/26/20182018 Inactive Singulair 10 mg tablet RxNorm: 374306 TAKE 1 TABLET BY MOUTH EVERY NIGHT AT BEDTIME 08/16/2018 11/22/2018 Inactive - First Attempt Ref: [id number] Xanax 1 mg tablet RxNorm: 258437 1 Tablet(s) PO QHS 08/01/20182018 Inactive levothyroxine 88 mcg tablet RxNorm: 085862 TAKE 1 TABLET BY NINA TH DAILY 07/31/2018 12/18/2018 Inactive - First Attempt Ref: [id number] Celexa 40 mg tablet RxNorm: 423592 TAKE 1 TABLET BY MOUTH DAILY 04/201811/22/2018 Inactive - First Attempt Ref: [id number] 54 bupropion HCl SR 100 mg tablet,12 hr sustained-release RxNor m: 995421 1 Tablet(s) PO BID 07/12/2018 07/06/2019 Inactive - Ref: [id number] 7 Claritin-D 24 Hour 10 mg-240 mg tablet,extended release RxNo rm: 4320620 1 Tablet(s) PO QD 06/29/2018 2018 Inactive Claritin-D 24 Hour 10 mg-240 mg tablet,extended release RxNo rm: 6727821 1 Tablet(s) PO QD 06/29/2018 2018 Inactive Xanax 1 mg tablet RxNorm: 065984 1-2 Tablet(s) PO QHS as needed for sleep 05/26/2018 06/23/2018 Inactive Generic For:XANAX 1M G 10/11/2016 11:15:13 AM Xanax 1 mg tablet RxNorm: 319578 1-2 Tablet(s) PO QHS as needed for sleep 03/28/2018 05/25/2018 Inactive Generic For:XANAX 1M G 10/11/2016 11:15:13 AM Macrobid 100 mg capsule RxNorm: 975061 1 Capsule(s) PO BID 03/27/19 19 03/31/2018 Inactive gabapentin 300 mg capsule RxNorm: 810862 1 Capsule(s) PO QHS 201703/26/2018 Inactive Claritin-D 24 Hour 10 mg-240 mg tablet,extended release RxNo rm: 2291843 1 Tablet(s) PO QD 01/26/2018 02/24/2018 Inactive gabapentin 100 mg capsule RxNorm: 101443 1 Capsule(s) P O QHS for 1 week then 2 po q HS for 2 weeks then 3 po q HS 01/24/2018 03/26/2018 Inactive Xanax 1 mg tablet RxNorm: 415659 1-2 Tablet(s) PO QHS as needed for sleep 01/24/2018 03/24/2018 Inactive Generic For:XANAX 1M G 10/11/2016 11:15:13 AM prednisone 20 mg tablet RxNorm: 711111 1 Tablet(s) PO T ID for 3 days then 1 po BID for 3 days then one daily for 3 days 12/29/2017 03/26/2018 Inactiv e prednisone 20 mg tablet RxNorm: 804914 3 Tablet(s) PO T ID for 3 days then 1 po BID for 3 days then one daily for 3 days 12/29/2017 12/29/2017 Inactiv e Macrobid 100 mg capsule RxNorm: 893115 1 Capsule(s) PO BID 12/30/19 18 01/02/2018 Inactive Xanax 1 mg tablet RxNorm: 557040 1-2 Tablet(s) PO QHS as needed for sleep 12/28/2017 01/23/2018 Inactive Generic For:XANAX 1M G 10/11/2016 11:15:13 AM Medrol (Walter) 4 mg tablets in a dose pack RxNorm: 530742 Tablet(s) PO take as directed 12/01/2017 03/26/2018 Inactive Keflex 750 mg capsule RxNorm: 693986 1 Capsule(s) PO BID 12/01/2017 1 Inactive clindamycin HCl 300 mg capsule RxNorm: 999534 2 Capsule(s) PO TID 1 12/08/2017 Inactive Xanax 1 mg tablet RxNorm: 317715 1-2 Tablet(s) PO QHS as needed for sleep 11/28/2017 12/27/2017 Inactive Generic For:XANAX 1M G 10/11/2016 11:15:13 AM mupirocin 2 % topical ointment RxNorm: 201882 1 Application OTIC BI D 11/28/2017 08/09/2018 Inactive Xanax 1 mg tablet RxNorm: 749146 1-2 Tablet(s) PO QHS as needed for sleep 10/27/2017 11/25/2017 Inactive Generic For:XANAX 1M G 10/11/2016 11:15:13 AM Macrobid 100 mg capsule RxNorm: 485692 1 Capsule(s) PO BID 10/11/19 18 10/16/2017 Inactive Medrol (Walter) 4 mg tablets in a dose pack RxNorm: 071733 Tablet(s) PO take as directed 10/10/2017 11/16/2017 Inactive Xanax 1 mg tablet RxNorm: 754413 1-2 Tablet(s) PO QHS as needed for sleep 09/28/2017 10/26/2017 Inactive Generic For:XANAX 1M G 10/11/2016 11:15:13 AM Xanax 1 mg tablet RxNorm: 832542 1-2 Tablet(s) PO QHS as needed for sleep 08/30/2017 09/27/2017 Inactive Generic For:XANAX 1M G 10/11/2016 11:15:13 AM Xanax 1 mg tablet RxNorm: 911977 1-2 Tablet(s) PO QHS as needed for sleep 08/30/2017 08/29/2017 Inactive Generic For:XANAX 1M G 10/11/2016 11:15:13 AM Xanax 1 mg tablet RxNorm: 386846 1-2 Tablet(s) PO QHS as needed for sleep 08/01/2017 08/29/2017 Inactive Generic For:XANAX 1M G 10/11/2016 11:15:13 AM Xanax 1 mg tablet RxNorm: 018916 1-2 Tablet(s) PO QHS as needed for sleep 06/29/2017 2017 Inactive Generic For:XANAX 1M G 10/11/2016 11:15:13 AM Claritin-D 24 Hour 10 mg-240 mg tablet,extended release RxNo rm: 5916032 1 Tablet(s) PO QD 06/29/2017 2017 Inactive levothyroxine 88 mcg tablet RxNorm: 397545 1 Tablet(s) PO QD 201709/10/2017 Inactive Xanax 1 mg tablet RxNorm: 319699 1-2 Tablet(s) PO QHS as needed for sleep 05/26/2017 06/28/2017 Inactive Generic For:XANAX 1M G 10/11/2016 11:15:13 AM Claritin-D 24 Hour 10 mg-240 mg tablet,extended release RxNo rm: 4002237 1 Tablet(s) PO QD 05/26/2017 06/24/2017 Inactive bupropion HCl SR 100 mg tablet,12 hr sustained-release RxNor m: 247782 Tablet(s) Take 1 tablet by mouth two times daily 04/06/2017 12/31/2017 Inactive - Ref: [id number] Xanax 1 mg tablet RxNorm: 911538 1-2 Tablet(s) PO QHS as needed for sleep 03/24/2017 05/22/2017 Inactive Generic For:XANAX 1M G 10/11/2016 11:15:13 AM Medrol (Walter) 4 mg tablets in a dose pack RxNorm: 884805 Tablet(s) P O 02/16/2017 03/27/2017 Inactive Xanax 1 mg tablet RxNorm: 005792 Tablet(s) TAKE ONE T O TWO TABLETS BY MOUTH AT BEDTIME NEEDED 02/16/2017 03/17/2017 Inactive Generic For:XA NAX 1MG 10/11/2016 11:15:13 AM Claritin-D 24 Hour 10 mg-240 mg tablet,extended release RxNo rm: 8097847 1 Tablet(s) PO QD 02/16/2017 04/16/2017 Inactive cefdinir 300 mg capsule RxNorm: 082401 2 Capsule(s) PO QD 02/16/2017 02/25/2017 Inactive Celexa 40 mg tablet RxNorm: 390727 Tablet(s) Take 1 tablet by m outh daily 12/23/2016 09/18/2017 Inactive - Ref: [id number] Xanax 1 mg tablet RxNorm: 350141 Tablet(s) TAKE ONE T O TWO TABLETS BY MOUTH AT BEDTIME NEEDED 12/16/2016 01/14/2017 Inactive Generic For:XA NAX 1MG 10/11/2016 11:15:13 AM Xanax 1 mg tablet RxNorm: 954544 Tablet(s) TAKE ONE T O TWO TABLETS BY MOUTH AT BEDTIME NEEDED 11/18/2016 12/15/2016 Inactive Generic For:XA NAX 1MG 10/11/2016 11:15:13 AM Xanax 1 mg tablet RxNorm: 988761 TAKE ONE TO TWO TABL ETS BY MOUTH AT BEDTIME NEEDED 10/11/2016 11/17/2016 Inactive Generic For:XANA X 1MG 10/11/2016 11:15:13 AM Mobic 15 mg tablet RxNorm: 567720 1 Tablet(s) PO QD 09/06/20162016 Inactive Claritin-D 24 Hour 10 mg-240 mg tablet,extended release RxNo rm: 3949811 1 Tablet(s) PO QD 09/02/2016 11/30/2016 Inactive prednisone 20 mg tablet RxNorm: 295592 1 Tablet(s) PO T ID for 3 days then 1 po BID for 3 days then one daily for 3 days 08/16/2016 03/27/2017 Inactiv e cefdinir 300 mg capsule RxNorm: 882510 2 Capsule(s) PO QD 08/16/2016 09/05/2016 Inactive Xanax 1 mg tablet RxNorm: 732616 TAKE ONE TO TWO TABL ETS BY MOUTH AT BEDTIME NEEDED 08/05/2016 10/11/2016 Inactive Generic For:XANA X 1MG 08/05/2016 2:27:03 PM08/04/2016 4:15:22 PM Singulair 10 mg tablet RxNorm: 763078 1 Tablet(s) PO QHS 07/06/2016 0 09/03/2016 Inactive prednisone 20 mg tablet RxNorm: 157733 1 Tablet(s) PO T ID for 3 days then 1 po BID for 3 days then one daily for 3 days 06/15/2016 07/05/2016 Inactiv e Singulair 10 mg tablet RxNorm: 500956 1 Tablet(s) PO QHS 06/15/2016 0 07/05/2016 Inactive cefdinir 300 mg capsule RxNorm: 144756 2 Capsule(s) PO QD 06/15/2016 07/05/2016 Inactive Xanax 1 mg tablet RxNorm: 556219 1-2 Tablet(s) PO QHS 05/21/201610/2016 Inactive Claritin-D 24 Hour 10 mg-240 mg tablet,extended release RxNo rm: 2151346 1 Tablet(s) PO QD 04/09/2016 07/07/2016 Inactive Xanax 1 mg tablet RxNorm: 832272 1-2 Tablet(s) PO QHS 03/23/201604/29 Inactive levothyroxine 88 mcg tablet RxNorm: 248492 1 Tablet(s) PO QD 201606/13/2017 Inactive bupropion HCl SR 100 mg tablet,sustained-release RxNorm: 993 503 Take 1 tablet by mouth two times daily 03/15/2016 12/09/2016 Inactive - Ref: 20 [id number] Celexa 40 mg tablet RxNorm: 038830 Take 1 tablet by mouth daily 12/23/2016 Inactive - Ref: [id number] Xanax 1 mg tablet RxNorm: 319320 1-2 Tablet(s) PO QHS 02/17/201603/01 Inactive levothyroxine 88 mcg tablet RxNorm: 945550 1 Tablet(s) PO QD 201502/22/2016 Inactive Xanax 1 mg tablet RxNorm: 677973 1-2 Tablet(s) PO QHS 11/25/201511/29 Inactive levothyroxine 88 mcg tablet RxNorm: 801573 1 Tablet(s) PO QD 201511/24/2015 Inactive temazepam 30 mg capsule RxNorm: 396477 1 Capsule(s) PO QHS 11/13/19 16 11/24/2015 Inactive Xanax 1 mg tablet RxNorm: 770625 1-2 Tablet(s) PO QHS 09/15/201510/29 Inactive Celexa 40 mg tablet RxNorm: 453465 1 Tablet(s) PO QD 1 Tablet(s ) PO QD 09/10/2015 09/16/2015 Inactive bupropion HCl SR 100 mg tablet,sustained-release RxNorm: 993 503 1 Tablet(s) PO BID 09/10/2015 09/23/2015 Inactive Xanax 1 mg tablet RxNorm: 829127 1-2 Tablet(s) PO QHS 09/10/201508/28 Inactive Xanax 1 mg tablet RxNorm: 787941 1-2 Tablet(s) PO QHS 08/11/201508/28 Inactive cyclobenzaprine 10 mg tablet RxNorm: 322320 1 Tablet(s) PO TID prn spasm 07/09/2015 11/23/2018 Inactive Celexa 40 mg tablet RxNorm: 405338 1 Tablet(s) PO QD 06/06/201508/03 Inactive Xanax 1 mg tablet RxNorm: 567715 1-2 Tablet(s) PO QHS 06/04/201505/2015 Inactive levothyroxine 88 mcg tablet RxNorm: 397960 1 Tablet(s) PO QD 201511/23/2015 Inactive Ceftin 500 mg tablet RxNorm: 822568 1 Tablet(s) PO BID 05/05/2015 Inactive Ceftin 500 mg tablet RxNorm: 262004 1 Tablet(s) PO BID 05/05/201507/2015 Inactive meloxicam 15 mg tablet RxNorm: 054601 1 Tablet(s) PO QD 04/16/2015 Inactive meloxicam 15 mg tablet RxNorm: 144805 1 Tablet(s) PO QD 04/16/2015 Inactive diclofenac sodium 75 mg tablet,delayed release RxNorm: 67515 6 1 Tablet(s) PO BID 04/04/2015 04/15/2015 Inactive diclofenac sodium 75 mg tablet,delayed release RxNorm: 62961 6 1 Tablet(s) PO BID 04/04/2015 04/03/2015 Inactive Tivorbex 40 mg capsule RxNorm: 4409468 1 Capsule(s) PO TID 03/24/19 16 04/02/2015 Inactive bupropion HCl SR 100 mg tablet,sustained-release RxNorm: 993 503 1 Tablet(s) PO BID 03/11/2015 09/06/2015 Inactive cyclobenzaprine 10 mg tablet RxNorm: 933596 1 Tablet(s) PO TID prn spasm 03/11/2015 07/08/2015 Inactive levothyroxine 88 mcg tablet RxNorm: 804371 1 Tablet(s) PO QD 201405/27/2015 Inactive Claritin-D 24 Hour 10 mg-240 mg tablet,extended release RxNo rm: 8350340 1 Tablet(s) PO QD 02/27/2015 05/27/2015 Inactive cefuroxime axetil 500 mg tablet RxNorm: 223213 1 Tablet(s) PO BID 1 03/12/2015 Inactive Celexa 40 mg tablet RxNorm: 036026 1 Tablet(s) PO QD 02/05/201504/05 Inactive levothyroxine 75 mcg tablet RxNorm: 612436 1 Tablet(s) PO QD 201402/26/2015 Inactive Celexa 40 mg tablet RxNorm: 342112 1 Tablet(s) PO QD 10/09/201402/04 Inactive Activella 1 mg-0.5 mg tablet RxNorm: 2591949 1 Tablet(s) PO QD 08/2802/26/2015 Inactive bupropion HCl SR 100 mg tablet,sustained-release RxNorm: 993 503 1 Tablet(s) PO BID 09/12/2014 03/10/2015 Inactive levothyroxine 75 mcg tablet RxNorm: 437122 1 Tablet(s) PO QD 201412/09/2014 Inactive levothyroxine 75 mcg tablet RxNorm: 236611 1 Tablet(s) PO QD 201409/11/2014 Inactive Celexa 40 mg tablet RxNorm: 800608 1 Tablet(s) PO QD 08/12/201410/08 Inactive Xanax 1 mg tablet RxNorm: 694132 1-2 Tablet(s) PO QHS 08/12/201409/28 Inactive Claritin-D 24 Hour 10 mg-240 mg tablet,extended release RxNo rm: 1795457 1 Tablet(s) PO QD 06/13/2014 09/10/2014 Inactive cyclobenzaprine 10 mg tablet RxNorm: 722203 1 Tablet(s) PO TID prn spasm 06/12/2014 02/26/2015 Inactive Xanax 1 mg tablet RxNorm: 469137 1-2 Tablet(s) PO QHS 05/09/201406/28 Inactive levothyroxine 75 mcg tablet RxNorm: 794629 1 Tablet(s) PO QD 201407/08/2014 Inactive cephalexin 500 mg capsule RxNorm: 468401 1 Capsule(s) PO QOD 201402/26/2015 Inactive simvastatin 10 mg tablet RxNorm: 877019 1 Tablet(s) PO QHS 04/10/19 15 06/12/2014 Inactive Xanax 1 mg tablet RxNorm: 330638 1-2 Tablet(s) PO QHS 04/10/201404/28 Inactive levothyroxine 75 mcg tablet RxNorm: 731165 1 Tablet(s) PO QD 201404/09/2014 Inactive levothyroxine 75 mcg capsule RxNorm: 880730 1 Capsule(s) PO QD 03/3104/10/2014 Inactive Activella 1 mg-0.5 mg tablet RxNorm: 7235790 1 Tablet(s) PO QD 03/0109/11/2014 Inactive bupropion HCl SR 100 mg tablet,sustained-release RxNorm: 993 503 1 Tablet(s) PO BID 03/04/2014 08/30/2014 Inactive Activella 1 mg-0.5 mg tablet RxNorm: 5373046 1 Tablet(s) PO QD 01/2803/18/2014 Inactive levothyroxine 75 mcg capsule RxNorm: 705596 1 Capsule(s) PO QD 12/2904/08/2014 Inactive simvastatin 10 mg tablet RxNorm: 938805 1 Tablet(s) PO QHS 01/10/20 14 04/08/2014 Inactive cyclobenzaprine 10 mg tablet RxNorm: 834442 1 Tablet(s) PO TID prn spasm 01/09/2014 04/08/2014 Inactive Cipro 500 mg tablet RxNorm: 876698 1 Tablet(s) PO BID 12/25/201304/2013 Inactive Cipro 500 mg tablet RxNorm: 838486 1 Tablet(s) PO BID 12/25/201311/29 Inactive bupropion HCl SR 100 mg tablet,sustained-release RxNorm: 993 503 1 Tablet(s) PO QAM 12/11/2013 03/03/2014 Inactive cephalexin 500 mg capsule RxNorm: 225593 1 Capsule(s) PO QOD 201304/09/2014 Inactive Xanax 1 mg tablet RxNorm: 482862 1-2 Tablet(s) PO QHS 10/15/201310/29 Inactive simvastatin 10 mg tablet RxNorm: 052767 1 Tablet(s) PO QHS 10/11/19 14 01/07/2014 Inactive Celexa 40 mg tablet RxNorm: 285862 Tablet(s) PO TAKE 1 TABLET BY MOUTH ONCE DAILY. 09/18/2013 09/17/2013 Inactive Xanax 1 mg tablet RxNorm: 297448 1-2 Tablet(s) PO QHS 08/13/201308/28 Inactive simvastatin 10 mg tablet RxNorm: 754971 1 Tablet(s) PO QHS 07/12/19 14 10/08/2013 Inactive bupropion HCl SR 100 mg tablet,sustained-release RxNorm: 993 503 1 Tablet(s) PO QAM 05/22/2013 11/17/2013 Inactive Pamelor 10 mg capsule RxNorm: 039473 1 Capsule(s) PO QHS for PLATA /sleep 05/22/2013 06/04/2013 Inactive Xanax 1 mg tablet RxNorm: 222596 1-2 Tablet(s) PO QHS 05/15/201305/29 Inactive Pamelor 10 mg capsule RxNorm: 102565 1 Capsule(s) PO QHS for PLATA /sleep 05/15/2013 05/21/2013 Inactive Xanax 1 mg tablet RxNorm: 422784 1 Tablet(s) PO QHS 04/27/20132013 Inactive Zovirax 800 mg tablet RxNorm: 443245 1 Tablet(s) PO TID 04/05/2013 Inactive Xanax 1 mg tablet RxNorm: 335813 1 Tablet(s) PO QHS 04/03/2013 No Sto p Date Active bupropion HCl SR 100 mg tablet,sustained-release RxNorm: 993 503 1 Tablet(s) PO QAM 03/26/2013 05/21/2013 Inactive bupropion HCl SR 100 mg tablet,sustained-release RxNorm: 993 503 1 Tablet(s) PO QAM 03/06/2013 03/25/2013 Inactive Pamelor 10 mg capsule RxNorm: 824210 1 Capsule(s) PO QHS for PLATA /sleep 02/14/2013 05/14/2013 Inactive levothyroxine 75 mcg capsule RxNorm: 597595 1 Capsule(s) PO QD 12/2901/08/2014 Inactive simvastatin 10 mg tablet RxNorm: 019439 1 Tablet(s) PO QHS TAKE 1 TABLET BY MOUTH ONCE DAILY AT BEDTIME. 01/15/2013 07/10/2013 Inactive cyclobenzaprine 10 mg tablet RxNorm: 525749 1 Tablet(s) PO TID prn spasm 12/25/2012 06/22/2013 Inactive Pamelor 10 mg capsule RxNorm: 634330 1 Capsule(s) PO QHS for PLATA /sleep 11/29/2012 02/14/2013 Inactive Celexa 40 mg tablet RxNorm: 937285 Tablet(s) PO TAKE 1 TABLET BY MOUTH ONCE DAILY. 10/11/2012 09/17/2013 Inactive simvastatin 10 mg tablet RxNorm: 338427 Tablet(s) PO TA KE 1 TABLET BY MOUTH ONCE DAILY AT BEDTIME. 10/11/2012 01/14/2013 Inactive simvastatin 10 mg tablet RxNorm: 199429 1 Tablet(s) PO QD 07/11/2012 10/08/2012 Inactive simvastatin 10 mg tablet RxNorm: 806050 1 Tablet(s) PO QD 04/14/2012 07/11/2012 Inactive simvastatin 10 mg tablet RxNorm: 841220 1 Tablet(s) PO QD 04/14/2012 04/13/2012 Inactive Celexa 40 mg tablet RxNorm: 490665 1 Tablet(s) PO QD 03/15/201209/10 Inactive cyclobenzaprine 10 mg tablet RxNorm: 643398 1 Tablet(s) PO TID prn spasm 02/02/2012 02/01/2012 Inactive cyclobenzaprine 10 mg tablet RxNorm: 051294 1 Tablet(s) PO TID prn spasm 02/02/2012 07/30/2012 Inactive Diflucan 100 mg Tab RxNorm: 953085 1 Tablet(s) PO QD 08/17/201108/22 Inactive Cipro 250 mg Tab RxNorm: 134538 1 Tablet(s) PO QD 08/17/2011 10/15/19 12 Inactive Levaquin 500 mg Tab RxNorm: 552793 1 Tablet(s) PO QD 08/17/201108/22 Inactive Pyridium 200 mg Tab RxNorm: 3922789 1 Tablet(s) PO TID 10/14/2010 Inactive may turn urine orange-red color. Cipro 500 mg Tab RxNorm: 920102 1 Tablet(s) PO BID 10/14/2010 011 Inactive levothyroxine 75 mcg capsule RxNorm: 218198 1 Capsule(s) PO QD 12/3001/14/2011 Inactive Vitamin D3 5,000 unit tablet RxNorm: 548858 1 Tablet(s) PO QD No Star t Date Active Nasacort 55 mcg nasal spray aerosol RxNorm: 7855435 2 Sp ray NASAL each nostril QHS No Start Date Active cyclobenzaprine 10 mg tablet RxNorm: 949469 1 Tablet(s) PO TID as needed No Start Date 11/22/2018 Inactive Vitamin D2 1,000 unit capsule RxNorm: 648927 3 Capsule(s) PO QD No Start Date 11/16/2017 Inactive diclofenac sodium 75 mg tablet,delayed release RxNorm: 84566 6 1 Tablet(s) PO BID No Start Date 03/16/2016 Inactive cephalexin 500 mg capsule RxNorm: 596311 1 Capsule(s) PO QOD No Sta rt Date 12/04/2013 Inactive cyclobenzaprine 10 mg tablet RxNorm: 461743 1 Tablet(s) PO QHS No S tart Date 02/01/2012 Inactive loratadine 10 mg tablet RxNorm: 246962 1 Tablet(s) PO QHS No Start Date 05/14/2019 Inactive hydrocodone 5 mg-acetaminophen 500 mg tablet RxNorm: 684694 1 -2 Tablet(s) PO Q6H as needed No Start Date 08/09/2018 Inactive etodolac 400 mg tablet RxNorm: 848563 1 Tablet(s) PO TID No Start D ate 09/17/2018 Inactive Xanax 1 mg tablet RxNorm: 475366 1 Tablet(s) PO QHS No Start Date 04/2013 Inactive Vitamin D3 1,000 unit capsule RxNorm: 933957 1 Capsule(s) PO QD No Start Date 06/12/2014 Inactive estradiol 2 mg tablet RxNorm: 437250 1/2 Tablet(s) PO QD No Start D ate 03/05/2013 Inactive Celexa 40 mg tablet RxNorm: 720858 1 Tablet(s) PO QD No Start Date Inactive Activella 1 mg-0.5 mg tablet RxNorm: 7886125 1 Tablet(s) PO QD No S tart Date 07/10/2012 Inactive medroxyprogesterone 5 mg tablet RxNorm: 2810998 1/2 Tablet(s) PO QD No Start Date 03/05/2013 Inactive levothyroxine 88 mcg tablet RxNorm: 383917 1 Tablet(s) PO QD No Sta rt Date 02/26/2015 Inactive Keflex 500 mg capsule RxNorm: 613688 1 Capsule(s) PO PRN No Start D ate 08/16/2011 Inactive Activella 1 mg-0.5 mg tablet RxNorm: 5283796 1 Tablet(s) PO QHS No Start Date 03/27/2017 Inactive Activella 1 mg-0.5 mg tablet RxNorm: 2820985 1 Tablet(s) PO QD No S tart Date 02/06/2014 Inactive Flexeril 10 mg Tab RxNorm: 209133 1 Tablet(s) PO TID No Start Date Inactive prn spasm simvastatin 10 mg tablet RxNorm: 140357 1 Tablet(s) PO QD No Start Date 04/13/2012 Inactive Medication Administered No Medication Administered data Immunizations Vaccine Codes Date Status Influenza CVX: 135 01/16/2019 Complete Pneumococcal CVX: 133 01/16/2019 Complete Results No Results data Procedures Procedure Codes Date URINE CULTURE/ COLONY COUNT CPT-4: 41138 07/26/2019 URINALYSIS NONAUTO W/O SCOPE CPT-4: 45388 07/17/2019 URINE CULTURE/ COLONY COUNT CPT-4: 11109 07/17/2019 DEXAMETHASONE SODIUM PHOS CPT-4: J1100 05/14/2019 THER/PROPH/DIAG INJ SC/IM CPT-4: 96290 05/14/2019 TRIAMCINOLONE ACET INJ NOS CPT-4: J3301 05/14/2019 FLU VACC PRSV FREE INC ANTIG 65 AND OLDER CPT-4: 09762 01/16/2019 FLU VACC PRSV FREE INC ANTIG 65 AND OLDER CPT-4: 71788 01/16/2019 PNEUMOCOCCAL VACC 13 NARESH IM CPT-4: 12836 01/16/2019 SKIN FUNGI CULTURE CPT-4: 22521 01/16/2019 IMMUNIZATION ADMIN CPT-4: 31388 01/16/2019 IMMUNIZATION ADMIN EACH ADD CPT-4: 13797 01/16/2019 THER/PROPH/DIAG INJ SC/IM CPT-4: 33428 01/17/2018 KETOROLAC TROMETHAMINE INJ CPT-4: J1885 01/17/2018 THER/PROPH/DIAG INJ SC/IM CPT-4: 54957 01/17/2018 PROMETHAZINE HCL INJECTION CPT-4: J2550 01/17/2018 URINALYSIS NONAUTO W/O SCOPE CPT-4: 51007 12/29/2017 URINE CULTURE/ COLONY COUNT CPT-4: 94901 12/29/2017 THER/PROPH/DIAG INJ SC/IM CPT-4: 22305 11/30/2017 TRIAMCINOLONE ACET INJ NOS CPT-4: J3301 11/30/2017 DEXAMETHASONE SODIUM PHOS CPT-4: J1100 11/30/2017 CEFTRIAXONE SODIUM INJECTION CPT-4: J0696 11/29/2017 THER/PROPH/DIAG INJ SC/IM CPT-4: 21537 11/29/2017 CEFTRIAXONE SODIUM INJECTION CPT-4: J0696 11/28/2017 THER/PROPH/DIAG INJ SC/IM CPT-4: 59891 11/28/2017 URINALYSIS NONAUTO W/O SCOPE CPT-4: 54468 10/10/2017 THER/PROPH/DIAG INJ SC/IM CPT-4: 54779 10/10/2017 TRIAMCINOLONE ACET INJ NOS CPT-4: J3301 10/10/2017 DEXAMETHASONE SODIUM PHOS CPT-4: J1100 10/10/2017 CEFTRIAXONE SODIUM INJECTION CPT-4: J0696 10/10/2017 THER/PROPH/DIAG INJ SC/IM CPT-4: 47835 10/10/2017 URINE CULTURE/ COLONY COUNT CPT-4: 78700 10/10/2017 THER/PROPH/DIAG INJ SC/IM CPT-4: 49223 11/02/2016 KETOROLAC TROMETHAMINE INJ CPT-4: J1885 11/02/2016 THER/PROPH/DIAG INJ SC/IM CPT-4: 93704 06/15/2016 TRIAMCINOLONE ACET INJ NOS CPT-4: J3301 06/15/2016 DEXAMETHASONE SODIUM PHOS CPT-4: J1100 06/15/2016 THER/PROPH/DIAG INJ SC/IM CPT-4: 57715 04/09/2016 KETOROLAC TROMETHAMINE INJ CPT-4: J1885 04/09/2016 PROMETHAZINE HCL INJECTION CPT-4: J2550 04/09/2016 EXC TR-EXT B9+ERASMO 0.5 CM< CPT-4: 92301 06/12/2015 URINALYSIS NONAUTO W/O SCOPE CPT-4: 59714 05/05/2015 URINE CULTURE/ COLONY COUNT CPT-4: 34185 05/05/2015 URINALYSIS NONAUTO W/O SCOPE CPT-4: 89229 03/24/2015 URINALYSIS NONAUTO W/O SCOPE CPT-4: 68396 02/27/2015 URINE CULTURE/ COLONY COUNT CPT-4: 96328 02/27/2015 THER/PROPH/DIAG INJ SC/IM CPT-4: 03486 04/18/2014 KETOROLAC TROMETHAMINE INJ CPT-4: J1885 04/18/2014 THER/PROPH/DIAG INJ SC/IM CPT-4: 81908 06/05/2013 TRIAMCINOLONE ACET INJ NOS CPT-4: J3301 06/05/2013 THER/PROPH/DIAG INJ SC/IM CPT-4: 48736 11/29/2012 KETOROLAC TROMETHAMINE INJ CPT-4: J1885 11/29/2012 URINALYSIS NONAUTO W/O SCOPE CPT-4: 97883 07/11/2012 URINE CULTURE/ COLONY COUNT CPT-4: 80844 07/11/2012 OCCULT BLOOD FECES CPT-4: 03572 02/17/2012 URINALYSIS NONAUTO W/O SCOPE CPT-4: 09613 08/27/2011 URINE CULTURE/ COLONY COUNT CPT-4: 33867 08/27/2011 URINALYSIS NONAUTO W/O SCOPE CPT-4: 28064 08/17/2011 URINE CULTURE/ COLONY COUNT CPT-4: 87432 08/17/2011 URINALYSIS NONAUTO W/O SCOPE CPT-4: 54370 12/28/2010 URINE CULTURE/ COLONY COUNT CPT-4: 70627 12/28/2010 URINALYSIS NONAUTO W/O SCOPE CPT-4: 18971 11/09/2010 URINE CULTURE/ COLONY COUNT CPT-4: 89841 11/09/2010 URINALYSIS NONAUTO W/O SCOPE CPT-4: 30647 10/29/2010 URINE CULTURE/ COLONY COUNT CPT-4: 30994 10/29/2010 URINE CULTURE/ COLONY COUNT CPT-4: 34467 10/14/2010 URINALYSIS NONAUTO W/O SCOPE CPT-4: 66373 10/14/2010 Vital Signs Date Vital 07/17/2019 Blood [...] 1: 122/74 Code: 8480-6 BMI: 22.0 Code: 59167-9 Heart Rate 1: 72 bpm Height: 5'3" [...] 1: 126/72 Code: 8480-6 BMI: 22.7 Code: 59591-3 Heart Rate 1: 72 bpm Height: 5'3" [...] 1: 112/70 Code: 8480-6 BMI: 22.0 Code: 90178-8 Heart Rate 1: 80 bpm Height: 5'3" [...] 1: 122/64 Code: 8480-6 BMI: 21.4 Code: 50796-0 Heart Rate 1: 88 bpm Height: 5'3" Respiratory Rate: 22 bpm SpO2: 96% Tempera ture: 36.8 (C) / 98.2 (F) Weight: 121 lbs 06/22/2017 Blood Pressure 1: 124/78 Code: 8480-6 BMI: 21.6 Code: 30369-3 Heart Rate 1: 76 bpm Height: 5'3" Respiratory Rate: 20 bpm Temperature: 36 .8 (C) / 98.3 (F) Weight: 122 lbs 03/28/2017 Blood Pressure 1: 92/60 Code: 8480-6 BMI: 20.4 C ode: 91157-0 Heart Rate 1: 72 bpm Height: 5'3" Respiratory Rate: 20 bpm Temperature: 36 .9 (C) / 98.4 (F) Weight: 115 lbs 02/16/2017 Blood Pressure 1: 106/70 Code: 8480-6 BMI: 21.3 Code: 33355-1 Heart Rate 1: 82 bpm Height: 5'3" Respiratory Rate: 22 bpm SpO2: 97% Tempera ture: 36.1 (C) / 97.0 (F) Weight: 120 lbs 09/06/2016 Blood Pressure 1: 118/64 Code: 8480-6 BMI: 22.7 Code: 04220-6 Heart Rate 1: 78 bpm Height: 5'3" Respiratory Rate: 20 bpm SpO2: 98% Tempera ture: 36.2 (C) / 97.2 (F) Weight: 128 lbs 08/16/2016 Blood Pressure 1: 118/78 Code: 8480-6 BMI: 22.1 Code: 41856-9 Heart Rate 1: 78 bpm Height: 5'3" Respiratory Rate: 20 bpm SpO2: 97% Tempera ture: 36.2 (C) / 97.1 (F) Weight: 125 lbs 07/19/2016 Blood Pressure 1: 116/68 Code: 8480-6 BMI: 22.5 Code: 44654-2 Heart Rate 1: 76 bpm Height: 5'3" Respiratory Rate: 20 bpm Temperature: 36 .8 (C) / 98.2 (F) Weight: 127 lbs 07/06/2016 Blood Pressure 1: 106/70 Code: 8480-6 BMI: 22.5 Code: 15222-2 Heart Rate 1: 72 bpm Height: 5'3" Respiratory Rate: 20 bpm SpO2: 97% Tempera ture: 36.8 (C) / 98.2 (F) Weight: 127 lbs 06/15/2016 Blood Pressure 1: 136/76 Code: 8480-6 BMI: 22.9 Code: 16341-5 Heart Rate 1: 74 bpm Height: 5'3" Respiratory Rate: 18 bpm SpO2: 98% Tempera ture: 36.4 (C) / 97.6 (F) Weight: 129 lbs 04/09/2016 Blood Pressure 1: 124/78 Code: 8480-6 BMI: 23.0 Code: 54143-8 Heart Rate 1: 86 bpm Height: 5'3" Respiratory Rate: 20 bpm SpO2: 96% Tempera ture: 36.5 (C) / 97.7 (F) Weight: 130 lbs 03/17/2016 Blood Pressure 1: 116/74 Code: 8480-6 BMI: 23.4 Code: 39522-1 Heart Rate 1: 84 bpm Height: 5'3" Respiratory Rate: 20 bpm SpO2: 97% Tempera ture: 36.8 (C) / 98.3 (F) Weight: 132 lbs 11/13/2015 Blood Pressure 1: 124/78 Code: 8480-6 BMI: 23.4 Code: 68148-6 Heart Rate 1: 88 bpm Height: 5'3" Respiratory Rate: 24 bpm SpO2: 98% Tempera ture: 36.8 (C) / 98.2 (F) Weight: 132 lbs 06/12/2015 Blood Pressure 1: 126/78 Code: 8480-6 BMI: 23.6 Code: 37605-4 Heart Rate 1: 80 bpm Height: 5'3" Respiratory Rate: 20 bpm Temperature: 36 .9 (C) / 98.4 (F) Weight: 133 lbs 04/22/2015 Blood Pressure 1: 126/68 Code: 8480-6 BMI: 23.6 Code: 35414-3 Heart Rate 1: 80 bpm Height: 5'3" Respiratory Rate: 20 bpm Temperature: 36 .6 (C) / 97.9 (F) Weight: 133 lbs 03/24/2015 Blood Pressure 1: 116/66 Code: 8480-6 BMI: 22.9 Code: 36507-6 Heart Rate 1: 74 bpm Height: 5'3" Respiratory Rate: 20 bpm Temperature: 36 .4 (C) / 97.6 (F) Weight: 129 lbs 02/27/2015 Blood Pressure 1: 106/64 Code: 8480-6 BMI: 22.7 Code: 98439-0 Heart Rate 1: 74 bpm Height: 5'3" Respiratory Rate: 20 bpm Temperature: 36 .8 (C) / 98.2 (F) Weight: 128 lbs 06/13/2014 Blood Pressure 1: 104/66 Code: 8480-6 BMI: 22.7 Code: 71442-2 Heart Rate 1: 84 bpm Height: 5'3" Respiratory Rate: 20 bpm Temperature: 37 .0 (C) / 98.6 (F) Weight: 128 lbs 04/18/2014 Blood Pressure 1: 112/62 Code: 8480-6 BMI: 22.0 Code: 71319-3 Heart Rate 1: 82 bpm Height: 5'3" Respiratory Rate: 18 bpm Temperature: 36 .4 (C) / 97.6 (F) Weight: 124 lbs 12/05/2013 Blood Pressure 1: 106/70 Code: 8480-6 BMI: 23.7 Code: 50891-4 Heart Rate 1: 84 bpm Height: 5'3" [...] 1: 126/88 Code: 8480-6 BMI: 22.3 Code: 92164-0 Heart Rate 1: 96 bpm Height: 5'4" Respiratory Rate: 20 bpm Temperature: 37 .7 (C) / 99.9 (F) Weight: 130 lbs 11/29/2012 Blood Pressure 1: 122/76 Code: 8480-6 BMI: 23.0 Code: 35883-8 Heart Rate 1: 84 bpm Height: 5'4" Respiratory Rate: 20 bpm Temperature: 36 .9 (C) / 98.4 (F) Weight: 134 lbs 09/26/2012 Blood Pressure 1: 114/76 Code: 8480-6 BMI: 23.0 Code: 79111-3 Heart Rate 1: 84 bpm Height: 5'4" Respiratory Rate: 20 bpm Temperature: 37 .3 (C) / 99.1 (F) Weight: 134 lbs 07/11/2012 Blood Pressure 1: 126/78 Code: 8480-6 BMI: 23.7 Code: 85681-9 Heart Rate 1: 76 bpm Height: 5'4" Respiratory Rate: 20 bpm Temperature: 37 .1 (C) / 98.7 (F) Weight: 138 lbs 02/02/2012 Blood Pressure 1: 108/70 Code: 8480-6 BMI: 23.2 Code: 61636-0 Heart Rate 1: 88 bpm Height: 5'4" Respiratory Rate: 20 bpm Temperature: 36 .4 (C) / 97.6 (F) Weight: 135 lbs 08/17/2011 Blood Pressure 1: 108/70 Code: 8480-6 BMI: 23.2 Code: 78243-7 Heart Rate 1: 72 bpm Height: 5'4" Respiratory Rate: 20 bpm Temperature: 36 .8 (C) / 98.2 (F) Weight: 135 lbs 10/14/2010 Blood Pressure 1: 120/72 Code: 8480-6 BMI: 23.4 Code: 30743-8 Heart Rate 1: 78 bpm Height: 5'3" [...] Diagnosis: Urinary tract infection[ICD10: N39.0] Alexandra [facility] [employer] CPT-4: 64578 07/26/2019 ([id number]) OFFICE/OUTPATIENT VISIT EST Diagnosis: Urinary tract infection, site not specified[ICD10: N39.0] Diagnosis: Dysuria[ICD10: R30.0] Vandana CARROLL DO [facility] CPT-4: 22164 07/17/2019 ([id number]) OFFICE/OUTPATIENT VISIT EST Diagnosis: Allergic dermatitis[ICD10: L23.9] Alexandra [facility] [employer] CPT-4: 93544 06/26/2019 ([id number]) OFFICE/OUTPATIENT VISIT EST Diagnosis: Contact dermatitis due to plant[ICD10: L25.5] Diagnosis: Cellulitis of left arm[ICD10: L03.114] Vandana [facility] [employer] CPT-4: 53785 05/14/2019 ([id number]) OFFICE/OUTPATIENT VISIT EST Diagnosis: Ventral hernia[ICD10: K43.9] Diagnosis: Incisional hernia[ICD10: K43.2] Alexandra CARROLL DO [employer] CPT-4: 74189 04/10/2019 ([id number]) OFFICE/OUTPATIENT VISIT EST Diagnosis: Insomnia[ICD10: G47.00] Diagnosis: Thrombocytosis[ICD10: D47.3] Alexandra [facility] [employer] CPT-4: 87389 02/14/2019 ([id number]) OFFICE/OUTPATIENT VISIT EST Diagnosis: Small bowel obstruction[ICD10: K56.609] Diagnosis: FLU VACCINE[ICD10: Z23] Diagnosis: PNEUMOCOCCAL VACCINE[ICD10: Z23] Diagnosis: Onychomycosis[ICD10: B35.1] Alexandra KUNZ [facility] CPT-4: 69102 01/16/2019 ([id number]) OFFICE/OUTPATIENT VISIT EST Diagnosis: Diarrhea, unspecified[ICD10: R19.7] Diagnosis: Radiculopathy, lumbosacral region[ICD10: M54.17] Alexandra CARROLL [facility] CPT-4: 35479 09/18/2018 OFFICE/OUTPATIENT VISIT EST Diagnosis: Other intervertebral disc degeneration, lumbar region[ICD10: M51.36] Diagnosis: Sacroiliitis, not elsewhere classified[ICD10: M46.1] Diagnosis: Obstructive sleep apnea (adult) (pediatric)[ICD10: G47.33] [facility]: 87234 08/10/2018 ([id number]) OFFICE/OUTPATIENT VISIT EST Diagnosis: Fracture of unspecified part of left clavicle, subsequent encounter for fracture with routine healing[ICD10: S42.002D] Diagnosis: Cervicalgia[ICD10: M54.2] Diagnosis: Radiculopathy, lumbosacral region[ICD10: M54.17] Alexandra CARROLL [facility] CPT-4: 71893 03/27/2018 ([id number]) OFFICE/OUTPATIENT VISIT EST Diagnosis: Fracture of unspecified part of left clavicle, subsequent encounter for fracture with routine healing[ICD10: S42.002D] Diagnosis: Other intervertebral disc degeneration, lumbar region[ICD10: M51.36] Diagnosis: Unspecified fracture of first thoracic vertebra, subsequent encounter for fracture with routine healing[ICD10: S22.019D] Diagnosis: Unspecified fracture of second thoracic vertebra, subsequent encounter for fracture with routine healing[ICD10: S22.029D] [facility] CPT-4: 15581 02/23/2018 ([id number]) OFFICE/OUTPATIENT VISIT EST Diagnosis: Fracture of unspecified part of left clavicle, subsequent encounter for fracture with routine healing[ICD10: S42.002D] Diagnosis: Unspecified fracture of first thoracic vertebra, subsequent encounter for fracture with routine healing[ICD10: S22.019D] Diagnosis: Unspecified fracture of second thoracic vertebra, subsequent encounter for fracture with routine healing[ICD10: S22.029D] Alexandra CARROLL [facility] CPT-4: 18728 01/24/2018 ([id number]) OFFICE/OUTPATIENT VISIT EST Diagnosis: Migraine, unspecified, not intractable, without status migrainosus[ICD10: G43.909] Alexandra CARROLL [facility] CPT - 4: 95425 01/17/2018 ([id number]) OFFICE/OUTPATIENT VISIT EST Diagnosis: Hematuria, unspecified[ICD10: R31.9] Diagnosis: Other intervertebral disc degeneration, lumbar region[ICD10: M51.36] Diagnosis: Retention of urine, unspecified[ICD10: R33.9] Alexandra Danegina Crawford DANEGINA [facility] CPT-4: 28718 12/29/2017 OFFICE/OUTPATIENT VISIT EST Diagnosis: Fracture of [...] Diagnosis: Low back pain[ICD10: M54.5] Alexandra KUNZ [facility] CPT-4: 38655 12/06/2017 ([id number]) OFFICE/OUTPATIENT VISIT EST Diagnosis: Cellulitis of right upper limb[ICD10: L03.113] Diagnosis: Allergy status to other antibiotic agents status[ICD10: Z88.1] Vandana Patricksasha CARROLL [facility] CPT-4: 99694 12/01/2017 ([id number]) OFFICE/OUTPATIENT VISIT EST Diagnosis: Cellulitis of right upper limb[ICD10: L03.113] Diagnosis: Allergy status to other antibiotic agents status[ICD10: Z88.1] Vandana CARROLL DO [facility] CPT-4: 42391 11/30/2017 ([id number]) OFFICE/OUTPATIENT VISIT EST Diagnosis: Cellulitis of right upper limb[ICD10: L03.113] Vandana CARROLL DO [facility] CPT-4: 79870 11/29/2017 ([id number]) OFFICE/OUTPATIENT VISIT EST Diagnosis: Cellulitis of right upper limb[ICD10: L03.113] Vandana CARROLL DO [facility] CPT-4: 77290 11/28/2017 ([id number]) OFFICE/OUTPATIENT VISIT EST Diagnosis: Other intervertebral disc degeneration, lumbar region[ICD10: M51.36] Diagnosis: Other retention of urine[ICD10: R33.8] Diagnosis: Primary insomnia[ICD10: F51.01] Diagnosis: Other spondylosis, site unspecified[ICD10: M47.899] Alexandra CARROLL DO [facility] CPT-4: 19612 11/17/2017 ([id number]) OFFICE/OUTPATIENT VISIT EST Diagnosis: Radiculopathy, lumbosacral region[ICD10: M54.17] Diagnosis: Other retention of urine[ICD10: R33.8] Diagnosis: Urinary tract infection, site not specified[ICD10: N39.0] Vandana CARROLL DO [facility] CPT-4: 10922 10/10/2017 ([id number]) PREV VISIT EST AGE 40-64 Diagnosis: Encounter for general adult medical examination without abnormal findings[ICD10: Z00.00] Diagnosis: Other intervertebral disc degeneration, lumbar region[ICD10: M51.36] Diagnosis: Hypothyroidism, unspecified[ICD10: E03.9] Diagnosis: Mixed hyperlipidemia[ICD10: E78.2] Alexandra MARINROSE INGRID CARROLL [employer] [facility] CPT-4: 48181 06/22/2017 ([id number]) OFFICE/OUTPATIENT VISIT EST Diagnosis: URI, ACUTE[ICD10: J06.9] Alexandra PAREKH [facility] CPT-4: 51190 03/28/2017 OFFICE/OUTPATIENT VISIT EST Diagnosis: Acute sinusitis, unspecified[ICD10: J01.90] Vandana CARROLL DO [facility] CPT-4: 43678 02/16/2017 ([id number]) OFFICE/OUTPATIENT VISIT EST Diagnosis: Migraine, unspecified, not intractable, without status migrainosus[ICD10: G43.909] Alexandra CARROLL DO [facility] CPT - 4: 37257 11/02/2016 ([id number]) OFFICE/OUTPATIENT VISIT EST Diagnosis: Pain in thoracic spine[ICD10: M54.6] Diagnosis: Chondrocostal junction syndrome [Tietze][ICD10: M94.0] Alexandra CARROLL [facility] CPT-4: 94980 09/06/2016 OFFICE/OUTPATIENT VISIT EST Diagnosis: Acute sinusitis, unspecified[ICD10: J01.90] Vidya SpicerLarry ALEXANDRA CARROLL [facility] CPT-4: 82717 08/16/2016 ([id number]) OFFICE/OUTPATIENT VISIT EST Diagnosis: Primary insomnia[ICD10: F51.01] Diagnosis: Cramp and spasm[ICD10: R25.2] Diagnosis: Major depressive disorder, single episode, mild[ICD10: F32.0] Alexandra CARROLL [facility] CPT-4: 94100 07/19/2016 ([id number]) OFFICE/OUTPATIENT VISIT EST Diagnosis: Obstructive sleep apnea (adult) (pediatric)[ICD10: G47.33] Diagnosis: Other fatigue[ICD10: R53.83] Diagnosis: Allergic rhinitis due to pollen[ICD10: J30.1] Diagnosis: Headache[ICD10: R51] Alexandra CARROLL [facility] CPT-4: 42704 07/06/2016 ([id number]) OFFICE/OUTPATIENT VISIT EST Diagnosis: Acute recurrent sinusitis, unspecified[ICD10: J01.91] Diagnosis: Allergic rhinitis due to pollen[ICD10: J30.1] Alexandra CARROLL [employer] [facility] CPT-4: 61764 06/15/2016 ([id number]) OFFICE/OUTPATIENT VISIT EST Diagnosis: Migraine, unspecified, not intractable, without status migrainosus[ICD10: G43.909] Diagnosis: Allergic rhinitis, unspecified[ICD10: J30.9] Nae CARROLL DO [facility] CPT-4: 63544 04/09/2016 ([id number]) OFFICE/OUTPATIENT VISIT EST Diagnosis: Hypothyroidism, unspecified[ICD10: E03.9] Diagnosis: Other fatigue[ICD10: R53.83] Diagnosis: Mixed hyperlipidemia[ICD10: E78.2] Diagnosis: Major depressive disorder, single episode, mild[ICD10: F32.0] Alexandra CARROLL [employer] [facility] CPT-4: 15966 03/17/2016 ([id number]) OFFICE/OUTPATIENT VISIT EST Diagnosis: Insomnia, unspecified[ICD10: G47.00] Diagnosis: Encounter for therapeutic drug level monitoring[ICD10: Z51.81] Nae CARROLL [employer] [facility] CPT-4: 11549 11/13/2015 ([id number]) OFFICE/OUTPATIENT VISIT EST Diagnosis: Hematuria, unspecified[ICD10: R31.9] Alexandra CARROLL [employer] [facility] CPT-4: 07166 05/05/2015 ([id number]) OFFICE/OUTPATIENT VISIT EST Diagnosis: Other intervertebral disc degeneration, lumbar region[ICD10: M51.36] Diagnosis: Radiculopathy, lumbosacral region[ICD10: M54.17] Alexandra CARROLL [employer] [facility] CPT-4: 04040 04/22/2015 ([id number]) OFFICE/OUTPATIENT VISIT EST Diagnosis: Low back pain[ICD10: M54.5] Diagnosis: Recurrent and persistent hematuria with unspecified morphologic changes[ICD10: N02.9] Alexandra CARROLL [employer] [facility] CPT-4: 92802 03/24/2015 ([id number]) OFFICE/OUTPATIENT VISIT EST Diagnosis: Acute sinusitis, unspecified[ICD10: J01.90] Diagnosis: Headache[ICD10: R51] Diagnosis: Retention of urine, unspecified[ICD10: R33.9] Diagnosis: Hypothyroidism, unspecified[ICD10: E03.9] Alexandra Orendvioletta SHAFFERALEXANDRA Ty VELANDVIOLETTA SALGUERO [employer] CPT-4: 45852 02/27/2015 ([id number]) PREV VISIT EST AGE 40-64 Diagnosis: ROUTINE MEDICAL EXAM[ICD9: V70.0] Diagnosis: HYPOTHYROIDISM[ICD9: 244.9] Diagnosis: HYPERLIPIDEMIA NEC/NOS[ICD9: 272.4] Alexandra CORDOBA Ty [facility] CPT-4: 67597 06/13/2014 ([id number]) OFFICE/OUTPATIENT VISIT EST Diagnosis: CEPHALGIA[ICD9: 784.0] Diagnosis: Nausea[ICD9: 787.02] Shalini KevinWendiroxanaabdirizak ALEXANDRA Ty [facility] CPT-4: 57545 04/18/2014 ([id number]) OFFICE/OUTPATIENT VISIT EST Diagnosis: INSOMNIA NOS[ICD9: 780.52] Diagnosis: Complicated grieving[ICD9: 309.0] Alexandra Danegina Louise SAri [facility] CPT-4: 48752 12/05/2013 ([id number]) OFFICE/OUTPATIENT VISIT EST Diagnosis: Muscle twitch[ICD9: 781.0] Diagnosis: ALLERGIC RHINITIS[ICD9: 477.9] Alexandra Danegina FORDE Macy CARROLL DO [facility] CPT-4: 21405 06/05/2013 ([id number]) OFFICE/OUTPATIENT VISIT EST Diagnosis: DEPRESSIVE DISORDER NEC[ICD9: 311] Alexandra QUINTERO S. DANENDER DO [facility] CPT-4: 27775 05/22/2013 OFFICE/OUTPATIENT VISIT EST Diagnosis: Shingles[ICD9: 053.9] Alexandra FORDE MacyAri DANENDER [facility] CPT-4: 51750 04/05/2013 ([id number]) OFFICE/OUTPATIENT VISIT EST Diagnosis: DEPRESSIVE DISORDER NEC[ICD9: 311] Alexandra QUINTERO S. DANENDER [facility] [employer] CPT-4: 84920 03/26/2013 ([id number]) OFFICE/OUTPATIENT VISIT EST Diagnosis: Complicated grieving[ICD9: 309.0] Alexandra Velalawandavioletta CARROLL [facility] CPT-4: 68485 03/06/2013 ([id number]) OFFICE/OUTPATIENT VISIT EST Diagnosis: CEPHALGIA, TENSION[ICD9: 307.81] Diagnosis: MIGRAINE NOS/NOT INTRCBL[ICD9: 346.90] Diagnosis: Cervicalgia[ICD9: 723.1] Alexandra Danelawandavioletta PLATT IZABELLA [facility] CPT-4: 80069 11/29/2012 ([id number]) OFFICE/OUTPATIENT VISIT EST Diagnosis: Jaw pain[ICD9: 784.92] Diagnosis: Shoulder pain[ICD9: 719.41] Diagnosis: Family history of premature coronary artery disease[ICD9: V17.3] Alexandra CARROLL [facility] CPT-4: 97156 09/26/2012 ([id number]) OFFICE/OUTPATIENT VISIT EST Diagnosis: ABDOMINAL PAIN[ICD9: 789.00] Diagnosis: Constipation[ICD9: 564.00] Diagnosis: Hematuria[ICD9: 599.70] Alexandra SHIPLEY [facility] CPT-4: 92334 07/11/2012 ([id number]) OFFICE/OUTPATIENT VISIT EST Diagnosis: ANEMIA NOS[ICD9: 285.9] Alexandra SHIPLEY [facility] CPT-4: 83968 02/17/2012 ([id number]) PREV VISIT EST AGE 40-64 Diagnosis: ROUTINE MEDICAL EXAM[ICD9: V70.0] Diagnosis: HYPOTHYROIDISM[ICD9: 244.9] Diagnosis: HYPERLIPIDEMIA NEC/NOS[ICD9: 272.4] Diagnosis: Obstructive sleep apnea[ICD9: 327.23] Alexandra Danegina TANIAGWENDOLYN JANEL Ty CARROLL [facility] CPT-4: 61123 02/02/2012 ([id number]) OFFICE/OUTPATIENT VISIT EST Diagnosis: URINARY TRACT INFECTION[ICD9: 599.0] Alexandra Danegina EDMUND DANIELLE Ty [facility] CPT-4: 71746 08/27/2011 ([id number]) OFFICE/OUTPATIENT VISIT EST Diagnosis: URINARY TRACT INFECTION[ICD9: 599.0] Diagnosis: ACUTE CYSTITIS[ICD9: 595.0] [facility]andra [facility] CPT-4: 10821 08/17/2011 OFFICE/OUTPATIENT VISIT EST Diagnosis: URINARY TRACT INFECTION[ICD9: 599.0] Steph Bowen EDMUND [facility] CPT-4: 97722 10/14/2010 Plan of Care Planned Activity Notes [...] ICD-10 : N39.0 07/17/2019 Appointment: Vandana Crowe [address] [place], [place] [id number] 07/17/2019 Patient Education: Cipro- [employer] [id number] https://www.[employer]/samplePlanet Prestige/resources/getResource/61/[email or web address].pdf Completed 07/17/2019 Visit Diagnosis Plan: Allergic dermatitis Discussion: Could be numerous things that were given during surgery Continue benadryl Add Prednisone Notify if persists/worsens ICD-9 : 692.9 ICD-10 : L23.9 06/26/2019 Appointment: Alexandra Carroll [facility]el[facility] [facility] 06/26/2019 Patient Education: prednisone- [employer] Coupon [id number] https://www.[employer]/TVDeck/resources/getResource/61/[email or web address] Completed 06/26/2019 Visit Diagnosis Plan: Cellulitis of [...] injection a week pre-op and dr. albert's slab polisher voiced ok to give. ICD-9 : 692.6 ICD-10 : L25.5 05/14/2019 Appointment: Vandana Crowe [address] [place], [place] [id number] ACUTE ILLNESS 05/14/2019 Patient Education: Levaquin- [employer] C[employer]on [id number] https://[email or web address]illa/samplePlanet Prestige/resources/getResource/61/[email or web address] Completed 05/14/2019 Visit Diagnosis Plan: Ventral hernia Discussion: See s urgery for repair Discussed signs of incarceration or strangulation then is to report to ER ICD-9 : 553.20 ICD-10 : K43.9 04/10/2019 Appointment: Alexandra Carroll WPtel: [address] [place], [place] [id number] [place] left second message 04/10/19 at 10:20 ACUTE ILLNE SS 04/10/2019 Care Plan: Referral Order SNOMED-CT : 30 [id number] Pending 04/10/2019 Visit Diagnosis Plan: Insomnia Discussion: [...] : D47.3 02/14/2019 Appointment: Alexandra Carroll WPtel: [address] [place], [place] [id number] US FOLLOW UP 02/14/2019 Appointment: Alexandra Carroll WPtel: [address] [place], [place] [phone] US CANCELED 02/12/2019 Visit Diagnosis Plan: Onychomycosis Discussion: Send n ail for culture ICD-9 : 110.1 ICD-10 : B35.1 01/16/2019 Visit Diagnosis Plan: Small bowel obstruction Discussi on: S/P surgery in September with postop complications of wound dehiscence ICD-9 : 560.9 ICD-10 : K56.609 01/16/2019 Appointment: Alexandra Carroll WPtel: [phone] [facility] MEDICATION REVIEW 01/16/2019 Appointment: Alexandra Carroll WPtel: [phone] [facility] US CANCELED 12/12/2018 Visit Diagnosis Plan: Diarrhea, unspecified Discussion : Due for updated colonoscopy ICD-9 : 787.91 ICD-10 : R19.7 09/18/2018 Visit Diagnosis Plan: Radiculopathy, lumbosacral regio n Discussion: Had left SI joint injection by Dr. Baig about 2 weeks ago and has fwup with him ICD-9 : 724.4 ICD-10 : M54.17 09/18/2018 Appointment: Alexandra Carroll WPtel: [address] [place], [place] [phone] US PATIENT CONSULT 15 09/18/2018 Care Plan: Referral Order SNOMED-CT : 30 [id number] Pending 09/18/2018 Visit Diagnosis Plan: Other intervertebral [...] : M46.1 08/10/2018 Appointment: Alexandra Carroll WPtel: [address] [place] [address] [place] MEDICATION REVIEW 08/10/2018 Care Plan: Referral Order SNOMED-CT : 30 [id number] Pending 08/10/2018 Appointment: Alexandra Carroll WPtel: [address] [place] [address] US CANCELED 04/17/2018 Visit Diagnosis Plan: Fracture [...] : M54.2 03/27/2018 Appointment: Alexandra Carroll WPtel: [address] [place] [address] US FOLLOW UP 03/27/2018 Visit Diagnosis Plan: [...] : S42.002D 02/23/2018 Appointment: Alexandra Carroll WPtel: [address] [place], [place] [phone] US FOLLOW UP 02/23/2018 Patient Education: gabapentin- [employer] Coupon [id number] https://www.[employer]/samplemd/resources/getResource/61/[email or web address] Completed 02/23/2018 Visit Diagnosis Plan: Fracture of unspec ified part of left clavicle, subsequent encounter for fracture with routine healing Discussion: Hold on PT and do home stretches Trial of gabapentin Recheck 4 weeks ICD-9 : V54.11 ICD-10 : S42.002D 01/24/2018 Appointment: Alexandra Carroll WPtel: [address] [place] [address] US FOLLOW UP 01/24/2018 Visit Diagnosis Plan: Migraine, unspecif ied, not intractable, without status migrainosus Discussion: Toradol and phenergan given ICD-9 : 346.90 ICD-10 : G43.909 01/17/2018 Appointment: Alexandra Carroll WPtel: [address] [place] [address] ACUTE ILLNESS 01/17/2018 Visit Diagnosis Plan: Retention [...] : M51.36 12/29/2017 Appointment: Alexandra Carroll WPtel: [address] [place] [address] ACUTE ILLNESS 12/29/2017 Care Plan: US EXAM PELVIC COMPLETE LOINC : 92081-5 Pending 12/29/2017 Care Plan: ECHO EXAM OF ABDOMEN LOINC : 77667-9 Pending 12/29/2017 Care Plan: Referral Order SNOMED-CT : 30 [id number] Pending 12/29/2017 Visit Diagnosis Plan: Fracture of unspec ified part of left clavicle, subsequent encounter for fracture with routine healing Discussion: Start PT in another 7-14 days Off work for the rest of this week then may return to part-time work on 12/12/17 Fwup in 4 weeks ICD-9 : V54.11 ICD-10 : S42.002D 12/06/2017 Appointment: Alexandra Carroll WPtel: [phone] [id number] US FOLLOW UP 12/06/2017 Patient Education: Patient [...] ICD-10 : Z88.1 12/01/2017 Appointment: Vandana Crowe [address] [place] [address] FOLLOW UP 12/01/2017 Patient Education: Patient Medication [...] : Z88.1 11/30/2017 Appointment: Vandana Crowe [address] [facility] [id number] 11/30/2017 Patient Education: Patient Medication Summary Completed [...] ICD-10 : L03.113 11/29/2017 Appointment: Vandana Crowe [address] [place] [address] FOLLOW UP 11/29/2017 Patient Education: Patient Medication [...] ICD-10 : L03.113 11/28/2017 Appointment: Vandana Crowe [address] [place], [place] [id number] ACUTE ILLNESS 11/28/2017 Patient Education: Patient Medication [...] M51.36 11/17/2017 Appointment: Alexandra Carroll WPtel: [id number] MED[facility] REVIEW 11/17/2017 Patient Education: Patient Medication Summary Completed 11/17/2017 Care Plan: Referral Order SNOMED-CT : 30 [id number] Pending 11/17/2017 Patient Education: Patient Medication Summary Completed 10/12/2017 Care Plan: MRI LUMBAR SPINE W/O DYE LOIN C : 27721-5 Pending 10/12/2017 Care Plan: X-RAY EXAM L-S SPINE 2/3 VWS LOINC : 51070-2 Pending 10/11/2017 Visit Diagnosis Plan: Other retention [...] medrol pack to start tomorrow. will call [facility] for patient to start PT immediately with inversion table. instructed patient to go to ED immediately if she develops any incontinence with bowel or bladder. patient verbalized understanding. if no improvement, will need updated MRI and referral to surgeon. ICD-9 : 724.4 ICD-10 : M54.17 10/10/2017 Appointment: Vandana Crowe [address] [place], [place] [id number] ACUTE ILLNESS 10/10/2017 Patient Education: Patient Medication Summary Completed 10/10/2017 Appointment: Vandana Crowe [address] [place], [place] [id number] ACUTE ILLNESS 08/01/2017 Visit Diagnosis Plan: Other intervertebral disc degene ration, lumbar region Discussion: Core strengtheing and inversion table and if worsening will need updated MRI ICD-9 : 722.52 ICD-10 : M51.36 06/22/2017 Visit Diagnosis Plan: [facility] medical examination without abnormal findings Discussion: Lab dis ussed Follow Up: 6 months ICD-9 : V70.0 ICD-10 : Z00.00 06/22/2017 Appointment: Alexandra Carroll WPtel: [address] [place] [address] Annual Well Visit 06/22/2017 Patient Education: Patient Medication Summary Completed 06/22/2017 Patient Education: Patient Medication Summary Completed 06/16/2017 Care Plan: [place] : 92120-6 Pending 06/16/2017 Care Plan: ASSAY THYROID STIM HORMONE Pen ding 06/16/2017 Care Plan: ASSAY OF FREE THYROXINE Pendin g 06/16/2017 Care Plan: LIPID PANEL LOINC : 70977-5 Pending 06/16/2017 Care Plan: CBC Pending 06/16/2017 [...] : J06.9 03/28/2017 Appointment: Alexandra Carroll WPtel: [facility] [address] ACUTE ILLNESS 03/28/2017 Patient Education: Patient Medication Summary Completed 03/28/2017 Visit Diagnosis Plan: Acute sinusitis, unspecified Dis cussion: cefdinir and medrol dose pack prescribed to be taken as directed. tylenol/ibuprofen as needed. educated on importance of taking singulair or zyrtec daily to prevent worsening symptoms. keep hydrated. ICD-9 : 461.9 ICD-10 : J01.90 02/16/2017 Appointment: Vandana Crowe [address] [place] [address] ACUTE ILLNESS 02/16/2017 Patient Education: Patient Medication Summary Completed 02/16/2017 Appointment: Alexandra Carroll WPtel: [address] [place] [address] INJECTION 11/02/2016 Patient Education: Patient Medication Summary Completed 11/02/2016 Visit Diagnosis Plan: Pain in thoracic spine Discussio n: Increase flexeril to 10mg po BID Add Mobic 15mg po daily Towel stretch May see chiropractor to adjust ribs Notify if persists or worsening ICD-9 : 724.1 ICD-10 : M54.6 09/06/2016 Appointment: Alexandra Carroll WPtel: [address] [place] [address] ACUTE ILLNESS 09/06/2016 Patient Education: Patient Medication Summary Completed 09/06/2016 Visit Plan: Due to hx, ERx Cefdinir and Prednisone (discussed risks for both) Given bottle for nasal saline rinses Tylenol/Ibuprofen prn pain/fever Fluids/rest Discussed s/s of worsening, RTC if no improvement 08/16/2016 Appointment: Vidya Manuel WPtel: [facility] [address] ACUTE ILLNESS 08/16/2016 Patient Education: Patient [...] : F32.0 07/19/2016 Appointment: Alexandra Carroll WPtel: [address] [place], [place] [phone] 07/15 confirmed`sl FOLLOW UP 07/19/2016 Patient Education: [...] : J30.1 07/06/2016 Appointment: Alexandra Carroll WPtel: [address] [place], [place] [phone] 07/05 confirmed-sp FOLLOW UP 07/06/2016 Patient Education: [...] : J01.91 06/15/2016 Appointment: Alexandra Carroll WPtel: [address] [place], [place] [id number] 06/14 lm ~sl ACUTE ILLNESS 06/15/2016 Patient Education: Patient Medication Summary Completed 06/15/2016 Visit Diagnosis Plan: Migraine, unspecif ied, not intractable, without status migrainosus Discussion: Injection as above Drink ple nty of water No driving x 6 hours Rest No OTC nsaids today Follow up PRN Refill called of claritin-d ICD-9 : 346.90 ICD-10 : G43.909 04/09/2016 [facility]ment[facility] [address] [facility] [facility] 04/09/2016 Patient Education: Patient [...] : R53.83 03/17/2016 Appointment: Alexandra Carroll WPtel: [address] [place], [place] [id number] 03/16 nvm~sl 03/17 confirmed`sl FOLLOW UP 0 03/17/2016 Patient Education: Patient Medication Summary Completed 03/17/2016 Appointment: Alexandra Carroll WPtel: [address] [place], [place] [address] 03/11 lm~sl 03/15lm `sl 03/15 confirmed`sl FOLLOW [...] same robert. If working well, continue the t4cukco office visits. Call if not working well, and will restart xanax at for sleep. 11/13/2015 Appointment: Woody Nae [address] [place], [place] [phone] 11/11 confirmed~sl FOLLOW UP 11/13/2015 Patient Education: Patient Medication Summary Completed 11/13/2015 Appointment: Alexandra Carroll WPtel: [address] [place], [place] [phone] Suture Removal 06/23/2015 Patient Education: Patient Medication Summary Completed 06/23/2015 Visit Plan: Removal of lesion above usin g 3-0 punch biopsy Return in 10 days for suture removal 06/12/2015 Appointment: Alexandra Carroll WPtel: [address] [place], [place] [phone] 06/10 lm ~sl ACUTE ILLNESS 06/12/2015 Patient Education: Patient Medication Summary Completed 06/12/2015 Referral: Soy Garcia WPtel: [facility] [place] Schedule patient around lunch time and 3 weeks from 04/22/2015 ~sl Spoke with Kiesha at Dr. Sandoval Office and 04/24/15 and scheduled the patient ~sl 04/24/15 Patient is informed~sl 06/03 Patient canceled the appointment ~ sl Patient did not show up for scheduled appointment-sp Appoint ment Requested 05/21/2015 Appointment: Alexandra Carroll WPtel: [address] [place], [place] [phone] [facility] 05/05/2015 Patient Education: Patient Medication Summary Completed 05/05/2015 Visit Plan: Starts PT today Schedule wit h Dr. Garcia for epidural CT abdomen/pelvis results discussed Sees PREPARATOR in April and will get checked then 04/22/2015 Appointment: Alexandra Carroll WPtel: [address] [place], [place] [phone] 04/21 confirmed~lb ACUTE ILLNESS 04/22/2015 Patient Education: Patient Medication Summary Completed 04/22/2015 Referral: Lincoln Hernandez WPtel: [address] [place] [address] [place] Referral Initiated 04/10/2015 Patient Education: Patient Medication Summary Completed 04/09/2015 Visit Plan: Start with lumosacral spine x-ray--will likely need MRI of L/S spine x-ray Needs urology--has had to have bladder stretched in past Tivorbex 03/24/2015 Appointment: Alexandra Carroll WPtel: [address] [place] [address] 03/21/15 appt confirmed cn ACUTE ILLNESS 03/24 Patient Education: Patient Medication Summary Completed 03/24/2015 Visit Plan: Saline nasal flushes prn. Ty lenol/Motrin prn headache. Notify if persists/symptoms worsening. Cefuroxime to cover both sinuses and UTI Culture urine Check lab 02/27/2015 Appointment: Alexandra Carroll WPtel: [address] [place] [address] 02/26/15 vm to confirm and need new insu meri on file is inactive cn....02/27/15 appt confirmed cn ACUTE ILLNESS 015 Patient Education: Patient Medication Summary Completed 02/27/2015 Visit Plan: Lab discussed Stop simvastat in Check lipids in 6mos Continue all other meds at current dose Had Pap and Mammo 3 weeks ago 06/13/2014 Appointment: Alexandra Carroll WPtel: [address] [place] [address] Annual Well Visit 06/13/2014 Patient Education: Patient Medication Summary Completed 06/13/2014 Appointment: Shalini Walters WPtel: [address] [place] [address] ACUTE ILLNESS 04/18/2014 Patient Education: Patient Medication Summary Completed 04/18/2014 Visit Plan: Check lab in May then fwup Can try decreasing xanax to 1mg q HS with melatonin 5-10mg q HS 12/05/2013 Appointment: Alexandra Carroll WPtel: [address] [place], [place] [phone] 12/04 FOLLOW UP 12/05/2013 Patient Education: Patient Medication Summary Completed 12/05/2013 Appointment: Alexandra Carroll WPtel: [address] [place], [place] [id number] FOLLOW UP 06/05/2013 Patient Education: Patient Medication Summary Completed 06/05/2013 Appointment: Alexandra Carroll WPtel: [address] [place] [address] FOLLOW UP 05/22/2013 Patient Education: Patient Medication Summary Completed 05/22/2013 Visit Plan: Zovirax for 2wks Notify if p ain worsens or if persists 04/05/2013 Appointment: Alexandra Carroll WPtel: [address] [place] [address] ACUTE ILLNESS 04/05/2013 Patient Education: Patient Medication Summary Completed 04/05/2013 Visit Plan: Keep Wellbutrin at current d ose Pt did see hand umbrella tipper for counseling 03/26/2013 Appointment: Alexandra Carrolltel: [address] [place] [address] ACUTE ILLNESS 03/26/2013 Patient Education: Patient Medication Summary Completed 03/26/2013 Visit Plan: Continue citalopram at curre nt dose Increase xanax to 1-2mg q HS for sleep Add Wellbutrin Sr 100mg q AM Start Counseling 03/06/2013 Appointment: Alexandra Carroll WPtel: [address] [place] [address] ACUTE ILLNESS 03/06/2013 Patient Education: Patient Medication Summary Completed 03/06/2013 Appointment: Alexandra Carroll WPtel: [address] [place] [address] ACUTE ILLNESS 11/29/2012 Patient Education: Patient Medication Summary Completed 11/29/2012 Appointment: Alexandra Carroll WPtel: [address] [place], [place] [phone] ACUTE ILLNESS 09/26/2012 Patient Education: Patient Medication Summary Completed 09/26/2012 Appointment: Alexandra Carrolltel: [address] [place], [place] [phone] ACUTE ILLNESS 07/11/2012 Patient Education: Patient Medication Summary Completed 07/11/2012 Appointment: Alexandra Carroll WPtel: [address] [place], [place] [phone] US LAB 02/17/2012 Patient Education: Patient Medication Summary Completed 02/17/2012 Visit Plan: Check fasting lab Start annie y ca with Vit D Cont CPAP Mammo up-to-date Hemoccult card given 02/02/2012 Appointment: Alexandra Carroll WPtel: [address] [place] [address] PHYSICAL 02/02/2012 Patient Education: Patient Medication Summary Completed 02/02/2012 Appointment: Alexandra Carroll WPtel: [address] [place], [place] [phone] UA 08/27/2011 Patient Education: Patient Medication Summary Completed 08/27/2011 Visit Plan: Levaquin and Diflucan for 1w k Then cipro QOD for prophylaxis 08/17/2011 Appointment: Alexandra Carrolltel: [address] [place] [address] FOLLOW UP 08/17/2011 Patient Education: Patient Medication Summary Completed 08/17/2011 Appointment: Alexandra Carroll WPtel: [address] [place] [address] UA 12/28/2010 Patient Education: Patient Medication Summary Completed 12/28/2010 Appointment: Alexandra Carroll WPtel: [address] [place], [place] [phone] UA 11/09/2010 Patient Education: Patient Medication Summary Completed 11/09/2010 Appointment: Alexandra Carrolll: [address] [facility] UA 10/29/2010 Patient Education: Patient Medication Summary Completed 10/29/2010 Appointment: Steph Bowen WPtel: [address] [facility] ACUTE ILLNESS 10/14/2010 Patient Education: Patient Medication Summary Completed 10/14/2010 Referral: Florian Baig WPtel: [facility] [address] Referral Initiated Referral: Paulo Albert WPtel: [address] [id number] [place] Referral Appointment Requested Referral: Luis Enirque Jasso WPtel: [facility] [address] Referral Appointment Requested Referral: Florian Baig WPtel: [facility] [address] [place] Referral Appointment Requested Referral: Caleb Glaser WPtel: [address] [place] Referral Appointment Requested Referral: Florian Baig WPtel: [facility] [address] Referral Initiated Referral: Florian Baig WPtel: [facility] [address] [place] Referral Appointment Requested Instructions Comment [...] agrees with this trial. [place] [place] cost comparison which is nearly the same robert. If working well, continue the e6bswzy office visits. Call if not working well, and will restart xanax at HS for sleep. . Removal of lesion above using 3-0 punc h biopsy Return in 10 days for suture removal . Starts PT today Schedule with Dr. Garcia for epidural CT abdomen/pelvis results discussed Sees PREPARATOR in April and will get checked then [...]
--- OUTSIDE RECORDS SUMMARY | 2019-09-02 00:16 | XMS REPORT | CCD ---
Author Author Ilda Bowen APRN Organization 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 Role Phone Alexandra Carroll D.O., PP Unavailable CCM Unavailable Summary Purpose Interface Exchange Insurance Providers Payer name Policy type / Coverage type Covered alliance party ID Effective Begin Date Effective End Date WPS MEDICARE PART B [place] Medicare Part B [id number] 2019 Unknown [employer] [place] Medicare Part B [id number] Unknown Family History Family History data not found Social History Social History Element Codes Description Effective Dates Tobacco history SNOMED CT: 628570420 Nonsmoker 10/14/2010 Allergies, Adverse Reactions, Alerts Substance Reaction Codes Entered Date Inactivated Date Status MORPHINE SULFATE RxNorm: 6948283 10/14/2010 No Inactive Da te Active CEPHALOSPORINS rash Unknown 12/06/2017 No Inactive Date Acti ve SULFA (SULFONAMIDES) Unknown 10/14/2010 No Inactive Cruz e Active Clindamycin HCl Unknown 12/06/2017 No Inactive Date Act unique _ reaction, Unknown 06/13/2014 No Inactive Date Active DEMEROL Unknown 10/14/2010 No Inactive Date Active Problems Condition Codes Effective Dates Condition Status Dysuria ICD-9: 788.1 ICD-10: R30.0 07/17/2019 Active Urinary tract infection, site not specified ICD-9: 599 .0 ICD-10: N39.0 10/10/2017 Active Allergic dermatitis ICD-9: 692.9 ICD-10: L23.9 [...] Fill Instructions cyclobenzaprine 10 mg tablet RxNorm: 789726 Tablet(s) Oral as neede d 07/17/2019 No Stop Date Active Cipro 500 mg tablet RxNorm: 433737 1 Tablet(s) Oral two times a day 07/17/2019 07/22/2019 Active Xanax 1 mg tablet RxNorm: 349718 1-2 Tablet(s) Oral e very night at bedtime as needed for sleep 07/10/2019 08/08/2019 Active Generic For:LAVELLE AX 1MG 10/11/2016 11:15:13 AM prednisone 20 mg tablet RxNorm: 491245 1 Tablet(s) Oral two harlan es a day 06/26/2019 07/03/2019 Inactive Amabelz 1 mg-0.5 mg tablet RxNorm: 6900352 1 Tablet(s) Oral QD 05/3007/17/2019 Inactive Trazadone 150 mg Tablet RxNorm: 1 Tablet(s) Oral every n ight at bedtime 05/14/2019 No Stop Date Active Levaquin 500 mg tablet RxNorm: 001211 1 Tablet(s) Oral QD 05/14/2019 05/21/2019 Inactive Xanax 1 mg tablet RxNorm: 721800 1-2 Tablet(s) Oral e very night at bedtime as needed for sleep 05/03/2019 06/01/2019 Inactive Generic For:LAVELLE AX 1MG 10/11/2016 11:15:13 AM cyclobenzaprine 10 mg tablet RxNorm: 267743 1 Tablet(s) Oral three times a day as needed for muscle spasm 02/12/2019 02/12/2019 Inactive Xanax 1 mg tablet RxNorm: 696390 1-2 Tablet(s) Oral e very night at bedtime as needed for sleep 02/09/2019 03/10/2019 Inactive Generic For:LAVELLE AX 1MG 10/11/2016 11:15:13 AM Xanax 1 mg tablet RxNorm: 555996 1-2 Tablet(s) Oral e very night at bedtime as needed for sleep 01/22/2019 02/08/2019 Inactive Generic For:LAVELLE AX 1MG 10/11/2016 11:15:13 AM Celexa 40 mg tablet RxNorm: 125136 1 Tablet(s) Oral QD 01/17/2019 Active - First Attempt Ref: [id number] Xanax 1 mg tablet RxNorm: 811253 1 Tablet(s) Oral every night a t bedtime 01/08/2019 01/21/2019 Inactive levothyroxine 88 mcg tablet RxNorm: 364923 TAKE 1 TABLET BY NINA TH DAILY 12/19/2018 06/16/2019 Inactive - First Attempt Ref: [id number] Xanax 1 mg tablet RxNorm: 044380 1 Tablet(s) Oral every night a t bedtime 12/06/2018 01/05/2019 Inactive Singulair 10 mg tablet RxNorm: 668722 1 Tablet(s) Oral every ni ght at bedtime 11/23/2018 11/17/2019 Active - First Attempt Ref: [id number] Celexa 40 mg tablet RxNorm: 016115 1 Tablet(s) Oral 11/23/20182018 Inactive - First Attempt Ref: [id number] cyclobenzaprine 10 mg tablet RxNorm: 692516 1 Tablet(s) Oral three times a day as needed for muscle spasm 11/23/2018 02/11/2019 Inactive Xanax 1 mg tablet RxNorm: 180590 1 Tablet(s) PO QHS 11/06/20182018 Inactive Xanax 1 mg tablet RxNorm: 498312 1 Tablet(s) PO QHS 09/26/20182018 Inactive Singulair 10 mg tablet RxNorm: 298860 TAKE 1 TABLET BY MOUTH EVERY NIGHT AT BEDTIME 08/16/2018 11/22/2018 Inactive - First Attempt Ref: [id number] Xanax 1 mg tablet RxNorm: 985142 1 Tablet(s) PO QHS 08/01/20182018 Inactive levothyroxine 88 mcg tablet RxNorm: 738429 TAKE 1 TABLET BY NINA TH DAILY 07/31/2018 12/18/2018 Inactive - First Attempt Ref: [id number] Celexa 40 mg tablet RxNorm: 543528 TAKE 1 TABLET BY MOUTH DAILY 04/201811/22/2018 Inactive - First Attempt Ref: [id number] 54 bupropion HCl SR 100 mg tablet,12 hr sustained-release RxNor m: 942053 1 Tablet(s) PO BID 07/12/2018 07/06/2019 Inactive - Ref: [id number] 7 Claritin-D 24 Hour 10 mg-240 mg tablet,extended release RxNo rm: 3882889 1 Tablet(s) PO QD 06/29/2018 2018 Inactive Claritin-D 24 Hour 10 mg-240 mg tablet,extended release RxNo rm: 8141827 1 Tablet(s) PO QD 06/29/2018 2018 Inactive Xanax 1 mg tablet RxNorm: 086199 1-2 Tablet(s) PO QHS as needed for sleep 05/26/2018 06/23/2018 Inactive Generic For:XANAX 1M G 10/11/2016 11:15:13 AM Xanax 1 mg tablet RxNorm: 083001 1-2 Tablet(s) PO QHS as needed for sleep 03/28/2018 05/25/2018 Inactive Generic For:XANAX 1M G 10/11/2016 11:15:13 AM Macrobid 100 mg capsule RxNorm: 346156 1 Capsule(s) PO BID 03/27/19 19 03/31/2018 Inactive gabapentin 300 mg capsule RxNorm: 448583 1 Capsule(s) PO QHS 201703/26/2018 Inactive Claritin-D 24 Hour 10 mg-240 mg tablet,extended release RxNo rm: 4842237 1 Tablet(s) PO QD 01/26/2018 02/24/2018 Inactive gabapentin 100 mg capsule RxNorm: 958371 1 Capsule(s) P O QHS for 1 week then 2 po q HS for 2 weeks then 3 po q HS 01/24/2018 03/26/2018 Inactive Xanax 1 mg tablet RxNorm: 149937 1-2 Tablet(s) PO QHS as needed for sleep 01/24/2018 03/24/2018 Inactive Generic For:XANAX 1M G 10/11/2016 11:15:13 AM prednisone 20 mg tablet RxNorm: 110532 1 Tablet(s) PO T ID for 3 days then 1 po BID for 3 days then one daily for 3 days 12/29/2017 03/26/2018 Inactiv e prednisone 20 mg tablet RxNorm: 370635 3 Tablet(s) PO T ID for 3 days then 1 po BID for 3 days then one daily for 3 days 12/29/2017 12/29/2017 Inactiv e Macrobid 100 mg capsule RxNorm: 534265 1 Capsule(s) PO BID 12/30/19 18 01/02/2018 Inactive Xanax 1 mg tablet RxNorm: 737634 1-2 Tablet(s) PO QHS as needed for sleep 12/28/2017 01/23/2018 Inactive Generic For:XANAX 1M G 10/11/2016 11:15:13 AM Medrol (Walter) 4 mg tablets in a dose pack RxNorm: 583787 Tablet(s) PO take as directed 12/01/2017 03/26/2018 Inactive Keflex 750 mg capsule RxNorm: 216597 1 Capsule(s) PO BID 12/01/2017 1 Inactive clindamycin HCl 300 mg capsule RxNorm: 440024 2 Capsule(s) PO TID 1 12/08/2017 Inactive Xanax 1 mg tablet RxNorm: 195422 1-2 Tablet(s) PO QHS as needed for sleep 11/28/2017 12/27/2017 Inactive Generic For:XANAX 1M G 10/11/2016 11:15:13 AM mupirocin 2 % topical ointment RxNorm: 504215 1 Application OTIC BI D 11/28/2017 08/09/2018 Inactive Xanax 1 mg tablet RxNorm: 048999 1-2 Tablet(s) PO QHS as needed for sleep 10/27/2017 11/25/2017 Inactive Generic For:XANAX 1M G 10/11/2016 11:15:13 AM Macrobid 100 mg capsule RxNorm: 892444 1 Capsule(s) PO BID 10/11/19 18 10/16/2017 Inactive Medrol (Walter) 4 mg tablets in a dose pack RxNorm: 278819 Tablet(s) PO take as directed 10/10/2017 11/16/2017 Inactive Xanax 1 mg tablet RxNorm: 273447 1-2 Tablet(s) PO QHS as needed for sleep 09/28/2017 10/26/2017 Inactive Generic For:XANAX 1M G 10/11/2016 11:15:13 AM Xanax 1 mg tablet RxNorm: 831120 1-2 Tablet(s) PO QHS as needed for sleep 08/30/2017 09/27/2017 Inactive Generic For:XANAX 1M G 10/11/2016 11:15:13 AM Xanax 1 mg tablet RxNorm: 422002 1-2 Tablet(s) PO QHS as needed for sleep 08/30/2017 08/29/2017 Inactive Generic For:XANAX 1M G 10/11/2016 11:15:13 AM Xanax 1 mg tablet RxNorm: 935482 1-2 Tablet(s) PO QHS as needed for sleep 08/01/2017 08/29/2017 Inactive Generic For:XANAX 1M G 10/11/2016 11:15:13 AM Xanax 1 mg tablet RxNorm: 105987 1-2 Tablet(s) PO QHS as needed for sleep 06/29/2017 2017 Inactive Generic For:XANAX 1M G 10/11/2016 11:15:13 AM Claritin-D 24 Hour 10 mg-240 mg tablet,extended release RxNo rm: 5913735 1 Tablet(s) PO QD 06/29/2017 2017 Inactive levothyroxine 88 mcg tablet RxNorm: 039814 1 Tablet(s) PO QD 201709/10/2017 Inactive Xanax 1 mg tablet RxNorm: 633694 1-2 Tablet(s) PO QHS as needed for sleep 05/26/2017 06/28/2017 Inactive Generic For:XANAX 1M G 10/11/2016 11:15:13 AM Claritin-D 24 Hour 10 mg-240 mg tablet,extended release RxNo rm: 2071163 1 Tablet(s) PO QD 05/26/2017 06/24/2017 Inactive bupropion HCl SR 100 mg tablet,12 hr sustained-release RxNor m: 178858 Tablet(s) Take 1 tablet by mouth two times daily 04/06/2017 12/31/2017 Inactive - Ref: [id number] Xanax 1 mg tablet RxNorm: 337788 1-2 Tablet(s) PO QHS as needed for sleep 03/24/2017 05/22/2017 Inactive Generic For:XANAX 1M G 10/11/2016 11:15:13 AM Medrol (Walter) 4 mg tablets in a dose pack RxNorm: 894592 Tablet(s) P O 02/16/2017 03/27/2017 Inactive Xanax 1 mg tablet RxNorm: 867800 Tablet(s) TAKE ONE T O TWO TABLETS BY MOUTH AT BEDTIME NEEDED 02/16/2017 03/17/2017 Inactive Generic For:XA NAX 1MG 10/11/2016 11:15:13 AM Claritin-D 24 Hour 10 mg-240 mg tablet,extended release RxNo rm: 2618880 1 Tablet(s) PO QD 02/16/2017 04/16/2017 Inactive cefdinir 300 mg capsule RxNorm: 592528 2 Capsule(s) PO QD 02/16/2017 02/25/2017 Inactive Celexa 40 mg tablet RxNorm: 086391 Tablet(s) Take 1 tablet by m outh daily 12/23/2016 09/18/2017 Inactive - Ref: [id number] Xanax 1 mg tablet RxNorm: 118500 Tablet(s) TAKE ONE T O TWO TABLETS BY MOUTH AT BEDTIME NEEDED 12/16/2016 01/14/2017 Inactive Generic For:XA NAX 1MG 10/11/2016 11:15:13 AM Xanax 1 mg tablet RxNorm: 108301 Tablet(s) TAKE ONE T O TWO TABLETS BY MOUTH AT BEDTIME NEEDED 11/18/2016 12/15/2016 Inactive Generic For:XA NAX 1MG 10/11/2016 11:15:13 AM Xanax 1 mg tablet RxNorm: 484577 TAKE ONE TO TWO TABL ETS BY MOUTH AT BEDTIME NEEDED 10/11/2016 11/17/2016 Inactive Generic For:XANA X 1MG 10/11/2016 11:15:13 AM Mobic 15 mg tablet RxNorm: 195444 1 Tablet(s) PO QD 09/06/20162016 Inactive Claritin-D 24 Hour 10 mg-240 mg tablet,extended release RxNo rm: 3885071 1 Tablet(s) PO QD 09/02/2016 11/30/2016 Inactive prednisone 20 mg tablet RxNorm: 818650 1 Tablet(s) PO T ID for 3 days then 1 po BID for 3 days then one daily for 3 days 08/16/2016 03/27/2017 Inactiv e cefdinir 300 mg capsule RxNorm: 130685 2 Capsule(s) PO QD 08/16/2016 09/05/2016 Inactive Xanax 1 mg tablet RxNorm: 054441 TAKE ONE TO TWO TABL ETS BY MOUTH AT BEDTIME NEEDED 08/05/2016 10/11/2016 Inactive Generic For:XANA X 1MG 08/05/2016 2:27:03 PM08/04/2016 4:15:22 PM Singulair 10 mg tablet RxNorm: 114291 1 Tablet(s) PO QHS 07/06/2016 0 09/03/2016 Inactive prednisone 20 mg tablet RxNorm: 020310 1 Tablet(s) PO T ID for 3 days then 1 po BID for 3 days then one daily for 3 days 06/15/2016 07/05/2016 Inactiv e Singulair 10 mg tablet RxNorm: 272584 1 Tablet(s) PO QHS 06/15/2016 0 07/05/2016 Inactive cefdinir 300 mg capsule RxNorm: 455263 2 Capsule(s) PO QD 06/15/2016 07/05/2016 Inactive Xanax 1 mg tablet RxNorm: 932647 1-2 Tablet(s) PO QHS 05/21/201610/2016 Inactive Claritin-D 24 Hour 10 mg-240 mg tablet,extended release RxNo rm: 9577537 1 Tablet(s) PO QD 04/09/2016 07/07/2016 Inactive Xanax 1 mg tablet RxNorm: 866073 1-2 Tablet(s) PO QHS 03/23/201604/29 Inactive levothyroxine 88 mcg tablet RxNorm: 708610 1 Tablet(s) PO QD 201606/13/2017 Inactive bupropion HCl SR 100 mg tablet,sustained-release RxNorm: 993 503 Take 1 tablet by mouth two times daily 03/15/2016 12/09/2016 Inactive - Ref: 20 [id number] Celexa 40 mg tablet RxNorm: 848243 Take 1 tablet by mouth daily 12/23/2016 Inactive - Ref: [id number] Xanax 1 mg tablet RxNorm: 591187 1-2 Tablet(s) PO QHS 02/17/201603/01 Inactive levothyroxine 88 mcg tablet RxNorm: 466062 1 Tablet(s) PO QD 201502/22/2016 Inactive Xanax 1 mg tablet RxNorm: 738036 1-2 Tablet(s) PO QHS 11/25/201511/29 Inactive levothyroxine 88 mcg tablet RxNorm: 089431 1 Tablet(s) PO QD 201511/24/2015 Inactive temazepam 30 mg capsule RxNorm: 797023 1 Capsule(s) PO QHS 11/13/19 16 11/24/2015 Inactive Xanax 1 mg tablet RxNorm: 199504 1-2 Tablet(s) PO QHS 09/15/201510/29 Inactive Celexa 40 mg tablet RxNorm: 754321 1 Tablet(s) PO QD 1 Tablet(s ) PO QD 09/10/2015 09/16/2015 Inactive bupropion HCl SR 100 mg tablet,sustained-release RxNorm: 993 503 1 Tablet(s) PO BID 09/10/2015 09/23/2015 Inactive Xanax 1 mg tablet RxNorm: 546068 1-2 Tablet(s) PO QHS 09/10/201508/28 Inactive Xanax 1 mg tablet RxNorm: 795064 1-2 Tablet(s) PO QHS 08/11/201508/28 Inactive cyclobenzaprine 10 mg tablet RxNorm: 497608 1 Tablet(s) PO TID prn spasm 07/09/2015 11/23/2018 Inactive Celexa 40 mg tablet RxNorm: 911755 1 Tablet(s) PO QD 06/06/201508/03 Inactive Xanax 1 mg tablet RxNorm: 625877 1-2 Tablet(s) PO QHS 06/04/201505/2015 Inactive levothyroxine 88 mcg tablet RxNorm: 986988 1 Tablet(s) PO QD 201511/23/2015 Inactive Ceftin 500 mg tablet RxNorm: 041900 1 Tablet(s) PO BID 05/05/2015 Inactive Ceftin 500 mg tablet RxNorm: 482447 1 Tablet(s) PO BID 05/05/201507/2015 Inactive meloxicam 15 mg tablet RxNorm: 049066 1 Tablet(s) PO QD 04/16/2015 Inactive meloxicam 15 mg tablet RxNorm: 297261 1 Tablet(s) PO QD 04/16/2015 Inactive diclofenac sodium 75 mg tablet,delayed release RxNorm: 48897 6 1 Tablet(s) PO BID 04/04/2015 04/15/2015 Inactive diclofenac sodium 75 mg tablet,delayed release RxNorm: 23577 6 1 Tablet(s) PO BID 04/04/2015 04/03/2015 Inactive Tivorbex 40 mg capsule RxNorm: 2232235 1 Capsule(s) PO TID 03/24/19 16 04/02/2015 Inactive bupropion HCl SR 100 mg tablet,sustained-release RxNorm: 993 503 1 Tablet(s) PO BID 03/11/2015 09/06/2015 Inactive cyclobenzaprine 10 mg tablet RxNorm: 116342 1 Tablet(s) PO TID prn spasm 03/11/2015 07/08/2015 Inactive levothyroxine 88 mcg tablet RxNorm: 351000 1 Tablet(s) PO QD 201405/27/2015 Inactive Claritin-D 24 Hour 10 mg-240 mg tablet,extended release RxNo rm: 0963207 1 Tablet(s) PO QD 02/27/2015 05/27/2015 Inactive cefuroxime axetil 500 mg tablet RxNorm: 708419 1 Tablet(s) PO BID 1 03/12/2015 Inactive Celexa 40 mg tablet RxNorm: 908604 1 Tablet(s) PO QD 02/05/201504/05 Inactive levothyroxine 75 mcg tablet RxNorm: 664518 1 Tablet(s) PO QD 201402/26/2015 Inactive Celexa 40 mg tablet RxNorm: 134020 1 Tablet(s) PO QD 10/09/201402/04 Inactive Activella 1 mg-0.5 mg tablet RxNorm: 9951213 1 Tablet(s) PO QD 08/2802/26/2015 Inactive bupropion HCl SR 100 mg tablet,sustained-release RxNorm: 993 503 1 Tablet(s) PO BID 09/12/2014 03/10/2015 Inactive levothyroxine 75 mcg tablet RxNorm: 953763 1 Tablet(s) PO QD 201412/09/2014 Inactive levothyroxine 75 mcg tablet RxNorm: 091374 1 Tablet(s) PO QD 201409/11/2014 Inactive Celexa 40 mg tablet RxNorm: 244406 1 Tablet(s) PO QD 08/12/201410/08 Inactive Xanax 1 mg tablet RxNorm: 834752 1-2 Tablet(s) PO QHS 08/12/201409/28 Inactive Claritin-D 24 Hour 10 mg-240 mg tablet,extended release RxNo rm: 6514798 1 Tablet(s) PO QD 06/13/2014 09/10/2014 Inactive cyclobenzaprine 10 mg tablet RxNorm: 007312 1 Tablet(s) PO TID prn spasm 06/12/2014 02/26/2015 Inactive Xanax 1 mg tablet RxNorm: 570510 1-2 Tablet(s) PO QHS 05/09/201406/28 Inactive levothyroxine 75 mcg tablet RxNorm: 633356 1 Tablet(s) PO QD 201407/08/2014 Inactive cephalexin 500 mg capsule RxNorm: 639270 1 Capsule(s) PO QOD 201402/26/2015 Inactive simvastatin 10 mg tablet RxNorm: 749841 1 Tablet(s) PO QHS 04/10/19 15 06/12/2014 Inactive Xanax 1 mg tablet RxNorm: 826543 1-2 Tablet(s) PO QHS 04/10/201404/28 Inactive levothyroxine 75 mcg tablet RxNorm: 743889 1 Tablet(s) PO QD 201404/09/2014 Inactive levothyroxine 75 mcg capsule RxNorm: 459080 1 Capsule(s) PO QD 03/3104/10/2014 Inactive Activella 1 mg-0.5 mg tablet RxNorm: 8858102 1 Tablet(s) PO QD 03/0109/11/2014 Inactive bupropion HCl SR 100 mg tablet,sustained-release RxNorm: 993 503 1 Tablet(s) PO BID 03/04/2014 08/30/2014 Inactive Activella 1 mg-0.5 mg tablet RxNorm: 6623166 1 Tablet(s) PO QD 01/2803/18/2014 Inactive levothyroxine 75 mcg capsule RxNorm: 751559 1 Capsule(s) PO QD 12/2904/08/2014 Inactive simvastatin 10 mg tablet RxNorm: 353718 1 Tablet(s) PO QHS 01/10/20 14 04/08/2014 Inactive cyclobenzaprine 10 mg tablet RxNorm: 298325 1 Tablet(s) PO TID prn spasm 01/09/2014 04/08/2014 Inactive Cipro 500 mg tablet RxNorm: 381710 1 Tablet(s) PO BID 12/25/201304/2013 Inactive Cipro 500 mg tablet RxNorm: 004011 1 Tablet(s) PO BID 12/25/201311/29 Inactive bupropion HCl SR 100 mg tablet,sustained-release RxNorm: 993 503 1 Tablet(s) PO QAM 12/11/2013 03/03/2014 Inactive cephalexin 500 mg capsule RxNorm: 367302 1 Capsule(s) PO QOD 201304/09/2014 Inactive Xanax 1 mg tablet RxNorm: 443230 1-2 Tablet(s) PO QHS 10/15/201310/29 Inactive simvastatin 10 mg tablet RxNorm: 597255 1 Tablet(s) PO QHS 10/11/19 14 01/07/2014 Inactive Celexa 40 mg tablet RxNorm: 132665 Tablet(s) PO TAKE 1 TABLET BY MOUTH ONCE DAILY. 09/18/2013 09/17/2013 Inactive Xanax 1 mg tablet RxNorm: 417106 1-2 Tablet(s) PO QHS 08/13/201308/28 Inactive simvastatin 10 mg tablet RxNorm: 209979 1 Tablet(s) PO QHS 07/12/19 14 10/08/2013 Inactive bupropion HCl SR 100 mg tablet,sustained-release RxNorm: 993 503 1 Tablet(s) PO QAM 05/22/2013 11/17/2013 Inactive Pamelor 10 mg capsule RxNorm: 817988 1 Capsule(s) PO QHS for PLATA /sleep 05/22/2013 06/04/2013 Inactive Xanax 1 mg tablet RxNorm: 493623 1-2 Tablet(s) PO QHS 05/15/201305/29 Inactive Pamelor 10 mg capsule RxNorm: 182149 1 Capsule(s) PO QHS for PLATA /sleep 05/15/2013 05/21/2013 Inactive Xanax 1 mg tablet RxNorm: 358936 1 Tablet(s) PO QHS 04/27/20132013 Inactive Zovirax 800 mg tablet RxNorm: 337652 1 Tablet(s) PO TID 04/05/2013 Inactive Xanax 1 mg tablet RxNorm: 727883 1 Tablet(s) PO QHS 04/03/2013 No Sto p Date Active bupropion HCl SR 100 mg tablet,sustained-release RxNorm: 993 503 1 Tablet(s) PO QAM 03/26/2013 05/21/2013 Inactive bupropion HCl SR 100 mg tablet,sustained-release RxNorm: 993 503 1 Tablet(s) PO QAM 03/06/2013 03/25/2013 Inactive Pamelor 10 mg capsule RxNorm: 496312 1 Capsule(s) PO QHS for PLATA /sleep 02/14/2013 05/14/2013 Inactive levothyroxine 75 mcg capsule RxNorm: 017416 1 Capsule(s) PO QD 12/2901/08/2014 Inactive simvastatin 10 mg tablet RxNorm: 225446 1 Tablet(s) PO QHS TAKE 1 TABLET BY MOUTH ONCE DAILY AT BEDTIME. 01/15/2013 07/10/2013 Inactive cyclobenzaprine 10 mg tablet RxNorm: 338440 1 Tablet(s) PO TID prn spasm 12/25/2012 06/22/2013 Inactive Pamelor 10 mg capsule RxNorm: 994751 1 Capsule(s) PO QHS for PLATA /sleep 11/29/2012 02/14/2013 Inactive Celexa 40 mg tablet RxNorm: 035722 Tablet(s) PO TAKE 1 TABLET BY MOUTH ONCE DAILY. 10/11/2012 09/17/2013 Inactive simvastatin 10 mg tablet RxNorm: 060239 Tablet(s) PO TA KE 1 TABLET BY MOUTH ONCE DAILY AT BEDTIME. 10/11/2012 01/14/2013 Inactive simvastatin 10 mg tablet RxNorm: 903122 1 Tablet(s) PO QD 07/11/2012 10/08/2012 Inactive simvastatin 10 mg tablet RxNorm: 483967 1 Tablet(s) PO QD 04/14/2012 07/11/2012 Inactive simvastatin 10 mg tablet RxNorm: 640442 1 Tablet(s) PO QD 04/14/2012 04/13/2012 Inactive Celexa 40 mg tablet RxNorm: 823786 1 Tablet(s) PO QD 03/15/201209/10 Inactive cyclobenzaprine 10 mg tablet RxNorm: 621140 1 Tablet(s) PO TID prn spasm 02/02/2012 02/01/2012 Inactive cyclobenzaprine 10 mg tablet RxNorm: 113257 1 Tablet(s) PO TID prn spasm 02/02/2012 07/30/2012 Inactive Diflucan 100 mg Tab RxNorm: 875265 1 Tablet(s) PO QD 08/17/201108/22 Inactive Cipro 250 mg Tab RxNorm: 603269 1 Tablet(s) PO QD 08/17/2011 10/15/19 12 Inactive Levaquin 500 mg Tab RxNorm: 750251 1 Tablet(s) PO QD 08/17/201108/22 Inactive Pyridium 200 mg Tab RxNorm: 8094261 1 Tablet(s) PO TID 10/14/2010 Inactive may turn urine orange-red color. Cipro 500 mg Tab RxNorm: 441667 1 Tablet(s) PO BID 10/14/2010 011 Inactive levothyroxine 75 mcg capsule RxNorm: 959926 1 Capsule(s) PO QD 12/3001/14/2011 Inactive Vitamin D3 5,000 unit tablet RxNorm: 598620 1 Tablet(s) PO QD No Star t Date Active Nasacort 55 mcg nasal spray aerosol RxNorm: 2412498 2 Sp ray NASAL each nostril QHS No Start Date Active cyclobenzaprine 10 mg tablet RxNorm: 765676 1 Tablet(s) PO TID as needed No Start Date 11/22/2018 Inactive Vitamin D2 1,000 unit capsule RxNorm: 287598 3 Capsule(s) PO QD No Start Date 11/16/2017 Inactive diclofenac sodium 75 mg tablet,delayed release RxNorm: 75889 6 1 Tablet(s) PO BID No Start Date 03/16/2016 Inactive cephalexin 500 mg capsule RxNorm: 560088 1 Capsule(s) PO QOD No Sta rt Date 12/04/2013 Inactive cyclobenzaprine 10 mg tablet RxNorm: 030303 1 Tablet(s) PO QHS No S tart Date 02/01/2012 Inactive loratadine 10 mg tablet RxNorm: 793662 1 Tablet(s) PO QHS No Start Date 05/14/2019 Inactive hydrocodone 5 mg-acetaminophen 500 mg tablet RxNorm: 228085 1 -2 Tablet(s) PO Q6H as needed No Start Date 08/09/2018 Inactive etodolac 400 mg tablet RxNorm: 155785 1 Tablet(s) PO TID No Start D ate 09/17/2018 Inactive Xanax 1 mg tablet RxNorm: 066708 1 Tablet(s) PO QHS No Start Date 04/2013 Inactive Vitamin D3 1,000 unit capsule RxNorm: 061355 1 Capsule(s) PO QD No Start Date 06/12/2014 Inactive estradiol 2 mg tablet RxNorm: 689219 1/2 Tablet(s) PO QD No Start D ate 03/05/2013 Inactive Celexa 40 mg tablet RxNorm: 458326 1 Tablet(s) PO QD No Start Date Inactive Activella 1 mg-0.5 mg tablet RxNorm: 1721570 1 Tablet(s) PO QD No S tart Date 07/10/2012 Inactive medroxyprogesterone 5 mg tablet RxNorm: 1006446 1/2 Tablet(s) PO QD No Start Date 03/05/2013 Inactive levothyroxine 88 mcg tablet RxNorm: 116730 1 Tablet(s) PO QD No Sta rt Date 02/26/2015 Inactive Keflex 500 mg capsule RxNorm: 202199 1 Capsule(s) PO PRN No Start D ate 08/16/2011 Inactive Activella 1 mg-0.5 mg tablet RxNorm: 6042818 1 Tablet(s) PO QHS No Start Date 03/27/2017 Inactive Activella 1 mg-0.5 mg tablet RxNorm: 6193140 1 Tablet(s) PO QD No S tart Date 02/06/2014 Inactive Flexeril 10 mg Tab RxNorm: 528759 1 Tablet(s) PO TID No Start Date Inactive prn spasm simvastatin 10 mg tablet RxNorm: 838647 1 Tablet(s) PO QD No Start Date 04/13/2012 Inactive Medication Administered No Medication Administered data Immunizations Vaccine Codes Date Status Influenza CVX: 135 01/16/2019 Complete Pneumococcal CVX: 133 01/16/2019 Complete Results No Results data Procedures Procedure Codes Date URINALYSIS NONAUTO W/O SCOPE CPT-4: 88275 07/17/2019 URINE CULTURE/ COLONY COUNT CPT-4: 15894 07/17/2019 DEXAMETHASONE SODIUM PHOS CPT-4: J1100 05/14/2019 THER/PROPH/DIAG INJ SC/IM CPT-4: 93130 05/14/2019 TRIAMCINOLONE ACET INJ NOS CPT-4: J3301 05/14/2019 FLU VACC PRSV FREE INC ANTIG 65 AND OLDER CPT-4: 10741 01/16/2019 FLU VACC PRSV FREE INC ANTIG 65 AND OLDER CPT-4: 99576 01/16/2019 PNEUMOCOCCAL VACC 13 NARESH IM CPT-4: 31394 01/16/2019 SKIN FUNGI CULTURE CPT-4: 62909 01/16/2019 IMMUNIZATION ADMIN CPT-4: 18808 01/16/2019 IMMUNIZATION ADMIN EACH ADD CPT-4: 59973 01/16/2019 THER/PROPH/DIAG INJ SC/IM CPT-4: 72101 01/17/2018 KETOROLAC TROMETHAMINE INJ CPT-4: J1885 01/17/2018 THER/PROPH/DIAG INJ SC/IM CPT-4: 22924 01/17/2018 PROMETHAZINE HCL INJECTION CPT-4: J2550 01/17/2018 URINALYSIS NONAUTO W/O SCOPE CPT-4: 70009 12/29/2017 URINE CULTURE/ COLONY COUNT CPT-4: 83408 12/29/2017 THER/PROPH/DIAG INJ SC/IM CPT-4: 34592 11/30/2017 TRIAMCINOLONE ACET INJ NOS CPT-4: J3301 11/30/2017 DEXAMETHASONE SODIUM PHOS CPT-4: J1100 11/30/2017 CEFTRIAXONE SODIUM INJECTION CPT-4: J0696 11/29/2017 THER/PROPH/DIAG INJ SC/IM CPT-4: 59048 11/29/2017 CEFTRIAXONE SODIUM INJECTION CPT-4: J0696 11/28/2017 THER/PROPH/DIAG INJ SC/IM CPT-4: 52914 11/28/2017 URINALYSIS NONAUTO W/O SCOPE CPT-4: 53662 10/10/2017 THER/PROPH/DIAG INJ SC/IM CPT-4: 80636 10/10/2017 TRIAMCINOLONE ACET INJ NOS CPT-4: J3301 10/10/2017 DEXAMETHASONE SODIUM PHOS CPT-4: J1100 10/10/2017 CEFTRIAXONE SODIUM INJECTION CPT-4: J0696 10/10/2017 THER/PROPH/DIAG INJ SC/IM CPT-4: 12998 10/10/2017 URINE CULTURE/ COLONY COUNT CPT-4: 74002 10/10/2017 THER/PROPH/DIAG INJ SC/IM CPT-4: 22027 11/02/2016 KETOROLAC TROMETHAMINE INJ CPT-4: J1885 11/02/2016 THER/PROPH/DIAG INJ SC/IM CPT-4: 53092 06/15/2016 TRIAMCINOLONE ACET INJ NOS CPT-4: J3301 06/15/2016 DEXAMETHASONE SODIUM PHOS CPT-4: J1100 06/15/2016 THER/PROPH/DIAG INJ SC/IM CPT-4: 42273 04/09/2016 KETOROLAC TROMETHAMINE INJ CPT-4: J1885 04/09/2016 PROMETHAZINE HCL INJECTION CPT-4: J2550 04/09/2016 EXC TR-EXT B9+ERASMO 0.5 CM< CPT-4: 44268 06/12/2015 URINALYSIS NONAUTO W/O SCOPE CPT-4: 97121 05/05/2015 URINE CULTURE/ COLONY COUNT CPT-4: 00610 05/05/2015 URINALYSIS NONAUTO W/O SCOPE CPT-4: 93959 03/24/2015 URINALYSIS NONAUTO W/O SCOPE CPT-4: 19922 02/27/2015 URINE CULTURE/ COLONY COUNT CPT-4: 88575 02/27/2015 THER/PROPH/DIAG INJ SC/IM CPT-4: 62536 04/18/2014 KETOROLAC TROMETHAMINE INJ CPT-4: J1885 04/18/2014 THER/PROPH/DIAG INJ SC/IM CPT-4: 04464 06/05/2013 TRIAMCINOLONE ACET INJ NOS CPT-4: J3301 06/05/2013 THER/PROPH/DIAG INJ SC/IM CPT-4: 03199 11/29/2012 KETOROLAC TROMETHAMINE INJ CPT-4: J1885 11/29/2012 URINALYSIS NONAUTO W/O SCOPE CPT-4: 53198 07/11/2012 URINE CULTURE/ COLONY COUNT CPT-4: 78427 07/11/2012 OCCULT BLOOD FECES CPT-4: 10322 02/17/2012 URINALYSIS NONAUTO W/O SCOPE CPT-4: 26889 08/27/2011 URINE CULTURE/ COLONY COUNT CPT-4: 17587 08/27/2011 URINALYSIS NONAUTO W/O SCOPE CPT-4: 92176 08/17/2011 URINE CULTURE/ COLONY COUNT CPT-4: 45199 08/17/2011 URINALYSIS NONAUTO W/O SCOPE CPT-4: 99480 12/28/2010 URINE CULTURE/ COLONY COUNT CPT-4: 29779 12/28/2010 URINALYSIS NONAUTO W/O SCOPE CPT-4: 17994 11/09/2010 URINE CULTURE/ COLONY COUNT CPT-4: 92998 11/09/2010 URINALYSIS NONAUTO W/O SCOPE CPT-4: 33989 10/29/2010 URINE CULTURE/ COLONY COUNT CPT-4: 30738 10/29/2010 URINE CULTURE/ COLONY COUNT CPT-4: 12086 10/14/2010 URINALYSIS NONAUTO W/O SCOPE CPT-4: 97585 10/14/2010 Vital Signs Date Vital 07/17/2019 Blood [...] 1: 122/74 Code: 8480-6 BMI: 22.0 Code: 22045-0 Heart Rate 1: 72 bpm Height: 5'3" [...] 1: 126/72 Code: 8480-6 BMI: 22.7 Code: 31830-3 Heart Rate 1: 72 bpm Height: 5'3" [...] 1: 112/70 Code: 8480-6 BMI: 22.0 Code: 40830-7 Heart Rate 1: 80 bpm Height: 5'3" [...] 1: 122/64 Code: 8480-6 BMI: 21.4 Code: 48492-2 Heart Rate 1: 88 bpm Height: 5'3" Respiratory Rate: 22 bpm SpO2: 96% Tempera ture: 36.8 (C) / 98.2 (F) Weight: 121 lbs 06/22/2017 Blood Pressure 1: 124/78 Code: 8480-6 BMI: 21.6 Code: 20111-2 Heart Rate 1: 76 bpm Height: 5'3" Respiratory Rate: 20 bpm Temperature: 36 .8 (C) / 98.3 (F) Weight: 122 lbs 03/28/2017 Blood Pressure 1: 92/60 Code: 8480-6 BMI: 20.4 C ode: 97655-0 Heart Rate 1: 72 bpm Height: 5'3" Respiratory Rate: 20 bpm Temperature: 36 .9 (C) / 98.4 (F) Weight: 115 lbs 02/16/2017 Blood Pressure 1: 106/70 Code: 8480-6 BMI: 21.3 Code: 97026-2 Heart Rate 1: 82 bpm Height: 5'3" Respiratory Rate: 22 bpm SpO2: 97% Tempera ture: 36.1 (C) / 97.0 (F) Weight: 120 lbs 09/06/2016 Blood Pressure 1: 118/64 Code: 8480-6 BMI: 22.7 Code: 07738-1 Heart Rate 1: 78 bpm Height: 5'3" Respiratory Rate: 20 bpm SpO2: 98% Tempera ture: 36.2 (C) / 97.2 (F) Weight: 128 lbs 08/16/2016 Blood Pressure 1: 118/78 Code: 8480-6 BMI: 22.1 Code: 92529-7 Heart Rate 1: 78 bpm Height: 5'3" Respiratory Rate: 20 bpm SpO2: 97% Tempera ture: 36.2 (C) / 97.1 (F) Weight: 125 lbs 07/19/2016 Blood Pressure 1: 116/68 Code: 8480-6 BMI: 22.5 Code: 30839-4 Heart Rate 1: 76 bpm Height: 5'3" Respiratory Rate: 20 bpm Temperature: 36 .8 (C) / 98.2 (F) Weight: 127 lbs 07/06/2016 Blood Pressure 1: 106/70 Code: 8480-6 BMI: 22.5 Code: 99250-5 Heart Rate 1: 72 bpm Height: 5'3" Respiratory Rate: 20 bpm SpO2: 97% Tempera ture: 36.8 (C) / 98.2 (F) Weight: 127 lbs 06/15/2016 Blood Pressure 1: 136/76 Code: 8480-6 BMI: 22.9 Code: 94215-6 Heart Rate 1: 74 bpm Height: 5'3" Respiratory Rate: 18 bpm SpO2: 98% Tempera ture: 36.4 (C) / 97.6 (F) Weight: 129 lbs 04/09/2016 Blood Pressure 1: 124/78 Code: 8480-6 BMI: 23.0 Code: 15186-4 Heart Rate 1: 86 bpm Height: 5'3" Respiratory Rate: 20 bpm SpO2: 96% Tempera ture: 36.5 (C) / 97.7 (F) Weight: 130 lbs 03/17/2016 Blood Pressure 1: 116/74 Code: 8480-6 BMI: 23.4 Code: 47488-1 Heart Rate 1: 84 bpm Height: 5'3" Respiratory Rate: 20 bpm SpO2: 97% Tempera ture: 36.8 (C) / 98.3 (F) Weight: 132 lbs 11/13/2015 Blood Pressure 1: 124/78 Code: 8480-6 BMI: 23.4 Code: 95607-5 Heart Rate 1: 88 bpm Height: 5'3" Respiratory Rate: 24 bpm SpO2: 98% Tempera ture: 36.8 (C) / 98.2 (F) Weight: 132 lbs 06/12/2015 Blood Pressure 1: 126/78 Code: 8480-6 BMI: 23.6 Code: 23035-3 Heart Rate 1: 80 bpm Height: 5'3" Respiratory Rate: 20 bpm Temperature: 36 .9 (C) / 98.4 (F) Weight: 133 lbs 04/22/2015 Blood Pressure 1: 126/68 Code: 8480-6 BMI: 23.6 Code: 40405-2 Heart Rate 1: 80 bpm Height: 5'3" Respiratory Rate: 20 bpm Temperature: 36 .6 (C) / 97.9 (F) Weight: 133 lbs 03/24/2015 Blood Pressure 1: 116/66 Code: 8480-6 BMI: 22.9 Code: 82148-8 Heart Rate 1: 74 bpm Height: 5'3" Respiratory Rate: 20 bpm Temperature: 36 .4 (C) / 97.6 (F) Weight: 129 lbs 02/27/2015 Blood Pressure 1: 106/64 Code: 8480-6 BMI: 22.7 Code: 30766-4 Heart Rate 1: 74 bpm Height: 5'3" Respiratory Rate: 20 bpm Temperature: 36 .8 (C) / 98.2 (F) Weight: 128 lbs 06/13/2014 Blood Pressure 1: 104/66 Code: 8480-6 BMI: 22.7 Code: 58623-0 Heart Rate 1: 84 bpm Height: 5'3" Respiratory Rate: 20 bpm Temperature: 37 .0 (C) / 98.6 (F) Weight: 128 lbs 04/18/2014 Blood Pressure 1: 112/62 Code: 8480-6 BMI: 22.0 Code: 61605-2 Heart Rate 1: 82 bpm Height: 5'3" Respiratory Rate: 18 bpm Temperature: 36 .4 (C) / 97.6 (F) Weight: 124 lbs 12/05/2013 Blood Pressure 1: 106/70 Code: 8480-6 BMI: 23.7 Code: 86958-3 Heart Rate 1: 84 bpm Height: 5'3" [...] 1: 126/88 Code: 8480-6 BMI: 22.3 Code: 26277-4 Heart Rate 1: 96 bpm Height: 5'4" Respiratory Rate: 20 bpm Temperature: 37 .7 (C) / 99.9 (F) Weight: 130 lbs 11/29/2012 Blood Pressure 1: 122/76 Code: 8480-6 BMI: 23.0 Code: 33440-8 Heart Rate 1: 84 bpm Height: 5'4" Respiratory Rate: 20 bpm Temperature: 36 .9 (C) / 98.4 (F) Weight: 134 lbs 09/26/2012 Blood Pressure 1: 114/76 Code: 8480-6 BMI: 23.0 Code: 00965-0 Heart Rate 1: 84 bpm Height: 5'4" Respiratory Rate: 20 bpm Temperature: 37 .3 (C) / 99.1 (F) Weight: 134 lbs 07/11/2012 Blood Pressure 1: 126/78 Code: 8480-6 BMI: 23.7 Code: 28127-9 Heart Rate 1: 76 bpm Height: 5'4" Respiratory Rate: 20 bpm Temperature: 37 .1 (C) / 98.7 (F) Weight: 138 lbs 02/02/2012 Blood Pressure 1: 108/70 Code: 8480-6 BMI: 23.2 Code: 71571-8 Heart Rate 1: 88 bpm Height: 5'4" Respiratory Rate: 20 bpm Temperature: 36 .4 (C) / 97.6 (F) Weight: 135 lbs 08/17/2011 Blood Pressure 1: 108/70 Code: 8480-6 BMI: 23.2 Code: 50504-7 Heart Rate 1: 72 bpm Height: 5'4" Respiratory Rate: 20 bpm Temperature: 36 .8 (C) / 98.2 (F) Weight: 135 lbs 10/14/2010 Blood Pressure 1: 120/72 Code: 8480-6 BMI: 23.4 Code: 34310-0 Heart Rate 1: 78 bpm Height: 5'3" Temperature: 36.9 (C) / 98.5 (F) Weight: 132 lbs Functional Status No Functional Status data Reason For Visit Reason For Visit Effective Dates Notes painful urination 07/17/2019 rash 06/26/2019 rash 05/14/2019 [...] sinus pain 06/15/2016 Review Cpap Card ronel samuel headache 04/09/2016 Patient also request ing Peg [...] dysuria. Encounters Encounter Performer Location Codes Date ([id number]) OFFICE/OUTPATIENT VISIT EST Diagnosis: Urinary tract infection, site not specified[ICD10: N39.0] Diagnosis: Dysuria[ICD10: R30.0] Vandana CARROLL DO [facility] CPT-4: 81859 07/17/2019 ([id number]) OFFICE/OUTPATIENT VISIT EST Diagnosis: Allergic dermatitis[ICD10: L23.9] Alexandra CARROLL DO [facility] CPT-4: 49297 06/26/2019 ([id number]) OFFICE/OUTPATIENT VISIT EST Diagnosis: Contact dermatitis due to plant[ICD10: L25.5] Diagnosis: Cellulitis of left arm[ICD10: L03.114] Vandana Amritasasha CARROLL [facility] CPT-4: 77815 05/14/2019 ([id number]) OFFICE/OUTPATIENT VISIT EST Diagnosis: Ventral hernia[ICD10: K43.9] Diagnosis: Incisional hernia[ICD10: K43.2] Alexandra CARROLL DO [facility] CPT-4: 34045 04/10/2019 ([id number]) OFFICE/OUTPATIENT VISIT EST Diagnosis: Insomnia[ICD10: G47.00] Diagnosis: Thrombocytosis[ICD10: D47.3] Alexandra CARROLL [facility] CPT-4: 60169 02/14/2019 ([id number]) OFFICE/OUTPATIENT VISIT EST Diagnosis: Small bowel obstruction[ICD10: K56.609] Diagnosis: FLU VACCINE[ICD10: Z23] Diagnosis: PNEUMOCOCCAL VACCINE[ICD10: Z23] Diagnosis: Onychomycosis[ICD10: B35.1] Alexandra KUNZ [facility] CPT-4: 09668 01/16/2019 ([id number]) OFFICE/OUTPATIENT VISIT EST Diagnosis: Diarrhea, unspecified[ICD10: R19.7] Diagnosis: Radiculopathy, lumbosacral region[ICD10: M54.17] Alexandra [facility]ARROLL [facility] CPT-4: 52918 09/18/2018 OFFICE/OUTPATIENT VISIT EST Diagnosis: Other intervertebral disc degeneration, lumbar region[ICD10: M51.36] Diagnosis: Sacroiliitis, not elsewhere classified[ICD10: M46.1] Diagnosis: Obstructive sleep apnea (adult) (pediatric)[ICD10: G47.33] [facility]: 49927 08/10/2018 ([id number]) OFFICE/OUTPATIENT VISIT EST Diagnosis: Fracture of unspecified part of left clavicle, subsequent encounter for fracture with routine healing[ICD10: S42.002D] Diagnosis: Cervicalgia[ICD10: M54.2] Diagnosis: Radiculopathy, lumbosacral region[ICD10: M54.17] [facility] CPT-[facility]: 23517 03/27/2018 ([id number]) OFFICE/OUTPATIENT VISIT EST Diagnosis: Fracture of unspecified part of left clavicle, subsequent encounter for fracture with routine healing[ICD10: S42.002D] Diagnosis: Other intervertebral disc degeneration, lumbar region[ICD10: M51.36] Diagnosis: Unspecified fracture of first thoracic vertebra, subsequent encounter for fracture with routine healing[ICD10: S22.019D] Diagnosis: Unspecified fracture of second thoracic vertebra, subsequent encounter for fracture with routine healing[ICD10: S22.029D] [facility] CPT-[facility]: 83908 02/23/2018 ([id number]) OFFICE/OUTPATIENT VISIT EST Diagnosis: Fracture of unspecified part of left clavicle, subsequent encounter for fracture with routine healing[ICD10: S42.002D] Diagnosis: Unspecified fracture of first thoracic vertebra, subsequent encounter for fracture with routine healing[ICD10: S22.019D] Diagnosis: Unspecified fracture of second thoracic vertebra, subsequent encounter for fracture with routine healing[ICD10: S22.029D] Alexandra CARROLL DO [facility] CPT-4: 39680 01/24/2018 ([id number]) OFFICE/OUTPATIENT VISIT EST Diagnosis: Migraine, unspecified, not intractable, without status migrainosus[ICD10: G43.909] Alexandra CARROLL DO [facility] CPT - 4: 98161 01/17/2018 ([id number]) OFFICE/OUTPATIENT VISIT EST Diagnosis: Hematuria, unspecified[ICD10: R31.9] Diagnosis: Other intervertebral disc degeneration, lumbar region[ICD10: M51.36] Diagnosis: Retention of urine, unspecified[ICD10: R33.9] Alexandra [facility]ARROLL [facility] CPT-4: 24942 12/29/2017 OFFICE/OUTPATIENT VISIT EST Diagnosis: Fracture of [...] encounter[ICD10: T23.361D] Diagnosis: Low back pain[ICD10: M54.5] Alxeandra KUNZ [facility] CPT-4: 55805 12/06/2017 ([id number]) OFFICE/OUTPATIENT VISIT EST Diagnosis: Cellulitis of right upper limb[ICD10: L03.113] Diagnosis: Allergy status to other antibiotic agents status[ICD10: Z88.1] Vandana CARROLL [facility] CPT-4: 30380 12/01/2017 ([id number]) OFFICE/OUTPATIENT VISIT EST Diagnosis: Cellulitis of right upper limb[ICD10: L03.113] Diagnosis: Allergy status to other antibiotic agents status[ICD10: Z88.1] Vandana [facility]ARROLL [facility] CPT-4: 93017 11/30/2017 ([id number]) OFFICE/OUTPATIENT VISIT EST Diagnosis: Cellulitis of right upper limb[ICD10: L03.113] Vandana CARROLL DO [facility] CPT-4: 93902 11/29/2017 ([id number]) OFFICE/OUTPATIENT VISIT EST Diagnosis: Cellulitis of right upper limb[ICD10: L03.113] Vandana CARROLL DO [facility] CPT-4: 40946 11/28/2017 ([id number]) OFFICE/OUTPATIENT VISIT EST Diagnosis: Other intervertebral disc degeneration, lumbar region[ICD10: M51.36] Diagnosis: Other retention of urine[ICD10: R33.8] Diagnosis: Primary insomnia[ICD10: F51.01] Diagnosis: Other spondylosis, site unspecified[ICD10: M47.899] Alexandra CARROLL DO [facility] CPT-4: 72653 11/17/2017 ([id number]) OFFICE/OUTPATIENT VISIT EST Diagnosis: Radiculopathy, lumbosacral region[ICD10: M54.17] Diagnosis: Other retention of urine[ICD10: R33.8] Diagnosis: Urinary tract infection, site not specified[ICD10: N39.0] Vandana CARROLL DO [facility] CPT-4: 96890 10/10/2017 ([id number]) PREV VISIT EST AGE 40-64 Diagnosis: Encounter for general adult medical examination without abnormal findings[ICD10: Z00.00] Diagnosis: Other intervertebral disc degeneration, lumbar region[ICD10: M51.36] Diagnosis: Hypothyroidism, unspecified[ICD10: E03.9] Diagnosis: Mixed hyperlipidemia[ICD10: E78.2] Alexandra CARROLL DO [facility] CPT-4: 65288 06/22/2017 ([id number]) OFFICE/OUTPATIENT VISIT EST Diagnosis: URI, ACUTE[ICD10: J06.9] Alexandra ROMAN [facility] CPT-4: 13276 03/28/2017 OFFICE/OUTPATIENT VISIT EST Diagnosis: Acute sinusitis, unspecified[ICD10: J01.90] Vandana CARROLL DO [facility] CPT-4: 93760 02/16/2017 ([id number]) OFFICE/OUTPATIENT VISIT EST Diagnosis: Migraine, unspecified, not intractable, without status migrainosus[ICD10: G43.909] Alexandra CARROLL [facility] CPT - 4: 42099 11/02/2016 ([id number]) OFFICE/OUTPATIENT VISIT EST Diagnosis: Pain in thoracic spine[ICD10: M54.6] Diagnosis: Chondrocostal junction syndrome [Tietze][ICD10: M94.0] Alexandra CARROLL [facility] CPT-4: 99357 09/06/2016 OFFICE/OUTPATIENT VISIT EST Diagnosis: Acute sinusitis, unspecified[ICD10: J01.90] Vidya Manuel ALEXANDRA CARROLL [facility] CPT-4: 68762 08/16/2016 ([id number]) OFFICE/OUTPATIENT VISIT EST Diagnosis: Primary insomnia[ICD10: F51.01] Diagnosis: Cramp and spasm[ICD10: R25.2] Diagnosis: Major depressive disorder, single episode, mild[ICD10: F32.0] Alexandra [facility]ARROLL [facility] CPT-4: 50043 07/19/2016 ([id number]) OFFICE/OUTPATIENT VISIT EST Diagnosis: Obstructive sleep apnea (adult) (pediatric)[ICD10: G47.33] Diagnosis: Other fatigue[ICD10: R53.83] Diagnosis: Allergic rhinitis due to pollen[ICD10: J30.1] Diagnosis: Headache[ICD10: R51] Alexandra CARROLL [facility] CPT-4: 92617 07/06/2016 ([id number]) OFFICE/OUTPATIENT VISIT EST Diagnosis: Acute recurrent sinusitis, unspecified[ICD10: J01.91] Diagnosis: Allergic rhinitis due to pollen[ICD10: J30.1] Alexandra CARROLL [facility] CPT-4: 74001 06/15/2016 ([id number]) OFFICE/OUTPATIENT VISIT EST Diagnosis: Migraine, unspecified, not intractable, without status migrainosus[ICD10: G43.909] Diagnosis: Allergic rhinitis, unspecified[ICD10: J30.9] Nae CARROLL [facility] CPT-4: 12727 04/09/2016 ([id number]) OFFICE/OUTPATIENT VISIT EST Diagnosis: Hypothyroidism, unspecified[ICD10: E03.9] Diagnosis: Other fatigue[ICD10: R53.83] Diagnosis: Mixed hyperlipidemia[ICD10: E78.2] Diagnosis: Major depressive disorder, single episode, mild[ICD10: F32.0] Alexandra CARROLL DO [facility] CPT-4: 69732 03/17/2016 ([id number]) OFFICE/OUTPATIENT VISIT EST Diagnosis: Insomnia, unspecified[ICD10: G47.00] Diagnosis: Encounter for therapeutic drug level monitoring[ICD10: Z51.81] Nae CARROLL [facility] CPT-4: 28799 11/13/2015 ([id number]) OFFICE/OUTPATIENT VISIT EST Diagnosis: Hematuria, unspecified[ICD10: R31.9] Alexandra CARROLL [facility] CPT-4: 10958 05/05/2015 ([id number]) OFFICE/OUTPATIENT VISIT EST Diagnosis: Other intervertebral disc degeneration, lumbar region[ICD10: M51.36] Diagnosis: Radiculopathy, lumbosacral region[ICD10: M54.17] Alexandra CARROLL [facility] CPT-4: 56572 04/22/2015 ([id number]) OFFICE/OUTPATIENT VISIT EST Diagnosis: Low back pain[ICD10: M54.5] Diagnosis: Recurrent and persistent hematuria with unspecified morphologic changes[ICD10: N02.9] Alexandra CARROLL DO [facility] CPT-4: 28270 03/24/2015 ([id number]) OFFICE/OUTPATIENT VISIT EST Diagnosis: Acute sinusitis, unspecified[ICD10: J01.90] Diagnosis: Headache[ICD10: R51] Diagnosis: Retention of urine, unspecified[ICD10: R33.9] Diagnosis: Hypothyroidism, unspecified[ICD10: E03.9] Alexandra CARROLL [facility] CPT-4: 00328 02/27/2015 ([id number]) PREV VISIT EST AGE 40-64 Diagnosis: ROUTINE MEDICAL EXAM[ICD9: V70.0] Diagnosis: HYPOTHYROIDISM[ICD9: 244.9] Diagnosis: HYPERLIPIDEMIA NEC/NOS[ICD9: 272.4] Alexandra SHAFFERUnique ADALID Ty JACOBONDVIOLETTA SALGUERO [facility] CPT-4: 13387 06/13/2014 ([id number]) OFFICE/OUTPATIENT VISIT EST Diagnosis: CEPHALGIA[ICD9: 784.0] Diagnosis: Nausea[ICD9: 787.02] Shalinisa Romeo SHAFFERLINE Ty JACOBONDVIOLETTA [facility] CPT-4: 26681 04/18/2014 ([id number]) OFFICE/OUTPATIENT VISIT EST Diagnosis: INSOMNIA NOS[ICD9: 780.52] Diagnosis: Complicated grieving[ICD9: 309.0] Alexandradanielle Louise SAri JACOBONDVIOLETTA [facility] CPT-4: 82310 12/05/2013 ([id number]) OFFICE/OUTPATIENT VISIT EST Diagnosis: Muscle twitch[ICD9: 781.0] Diagnosis: ALLERGIC RHINITIS[ICD9: 477.9] Alexandra Danelawandavioletta SHAFFERALEXANDRA Macy CARROLL [facility] CPT-4: 01371 06/05/2013 ([id number]) OFFICE/OUTPATIENT VISIT EST Diagnosis: DEPRESSIVE DISORDER NEC[ICD9: 311] Alexandra QUINTERO S. DANENDER [facility] CPT-4: 52529 05/22/2013 OFFICE/OUTPATIENT VISIT EST Diagnosis: Shingles[ICD9: 053.9] Alexandra Danejames FORDE MacyAri DANENDVIOLETTA [facility] CPT-4: 09887 04/05/2013 ([id number]) OFFICE/OUTPATIENT VISIT EST Diagnosis: DEPRESSIVE DISORDER NEC[ICD9: 311] Alexandra QUINTERO S. DANENDER [facility] CPT-4: 62470 03/26/2013 ([id number]) OFFICE/OUTPATIENT VISIT EST Diagnosis: Complicated grieving[ICD9: 309.0] Alexandra Burlesonvioletta PAM Louise Ty JACOBONDER [facility] CPT-4: 72549 03/06/2013 ([id number]) OFFICE/OUTPATIENT VISIT EST Diagnosis: CEPHALGIA, TENSION[ICD9: 307.81] Diagnosis: MIGRAINE NOS/NOT INTRCBL[ICD9: 346.90] Diagnosis: Cervicalgia[ICD9: 723.1] Alexandra PLATT IZABELLA [facility] CPT-4: 54878 11/29/2012 ([id number]) OFFICE/OUTPATIENT VISIT EST Diagnosis: Jaw pain[ICD9: 784.92] Diagnosis: Shoulder pain[ICD9: 719.41] Diagnosis: Family history of premature coronary artery disease[ICD9: V17.3] Alexandra [facility]ARROLL [facility] CPT-4: 04291 09/26/2012 ([id number]) OFFICE/OUTPATIENT VISIT EST Diagnosis: ABDOMINAL PAIN[ICD9: 789.00] Diagnosis: Constipation[ICD9: 564.00] Diagnosis: Hematuria[ICD9: 599.70] Alexandra [facility] CPT-4: 96042 07/11/2012 ([id number]) OFFICE/OUTPATIENT VISIT EST Diagnosis: ANEMIA NOS[ICD9: 285.9] Alexandra JACOBOND [facility] CPT-4: 81624 02/17/2012 ([id number]) PREV VISIT EST AGE 40-64 Diagnosis: ROUTINE MEDICAL EXAM[ICD9: V70.0] Diagnosis: HYPOTHYROIDISM[ICD9: 244.9] Diagnosis: HYPERLIPIDEMIA NEC/NOS[ICD9: 272.4] Diagnosis: Obstructive sleep apnea[ICD9: 327.23] Alexandra LEWNE Ty CARROLL [facility] CPT-4: 16707 02/02/2012 ([id number]) OFFICE/OUTPATIENT VISIT EST Diagnosis: URINARY TRACT INFECTION[ICD9: 599.0] Alexandra JACOBONDVIOLETTA [facility] CPT-4: 08811 08/27/2011 ([id number]) OFFICE/OUTPATIENT VISIT EST Diagnosis: URINARY TRACT INFECTION[ICD9: 599.0] Diagnosis: ACUTE CYSTITIS[ICD9: 595.0] Alexandra Crawford [facility] CPT-4: 96216 08/17/2011 OFFICE/OUTPATIENT VISIT EST Diagnosis: URINARY TRACT INFECTION[ICD9: 599.0] Steph LOZANO Ty [facility]LS[facility] CPT-4: 61064 10/14/2010 Plan of Care Planned Activity Notes Codes Status Date Visit Diagnosis Plan: Urinary tract infection, site no t specified Discussion: urine sent for culture. cipro prescribed to take as directed and instructed to stop the macrobid that she has since there is no improvement in symptoms. push fluids. will call patient pending culture results. ICD-9 : 599.0 ICD-10 : N39.0 07/17/2019 Patient Education: Cipro- [employer] Coupon [id number] [email or web address]/[email or web address]/resources/getResource/61/[email or web address]-hp [email or web address].pdf Completed 07/17/2019 Visit Diagnosis Plan: Allergic dermatitis Discussion: Could be numerous things that were given during surgery Continue benadryl Add Prednisone Notify if persists/worsens ICD-9 : 692.9 ICD-10 : L23.9 06/26/2019 Appointment: Alexandra Carroll WPtel: [phone] [facility] 06/26/2019 Patient Education: prednisone- [employer] Coupon [phone] [email or web address]/WeShow/resources/getResource/61/[email or web address]-[email or web address] Completed 06/26/2019 Visit Diagnosis Plan: Cellulitis of [...] injection a week pre-op and dr. albert's wood miller voiced ok to give. ICD-9 : 692.6 ICD-10 : L25.5 05/14/2019 Appointment: Vandana Crowe [address] [place], [place] [id number] 05/14/2019 Patient Education: Levaquin- [employer] Coupon [phone] https://www.WeShow.com/samplemd/resources/getResource/61/3kj71i55-z844-7242-22 Completed 05/14/2019 Visit Diagnosis Plan: Ventral hernia Discussion: See s urgery for repair Discussed signs of incarceration or strangulation then is to report to ER ICD-9 : 553.20 ICD-10 : K43.9 04/10/2019 Appointment: Alexandra Carroll WPtel: [address] [place], [place] [phone] [place] left second message 04/10/19 at 10:20 ACUTE ILLNE SS 04/10/2019 Care Plan: Referral Order SNOMED-CT : 30 [id number] Pending 04/10/2019 Visit Diagnosis Plan: Insomnia Discussion: [...] : D47.3 02/14/2019 Appointment: Alexandra Carroll WPtel: [address] [place], [place] [phone] [place] FOLLOW UP 02/14/2019 Appointment: Alexandra Carroll WPtel: [address] [place], [place] [phone] [place] CANCELED 02/12/2019 Visit Diagnosis Plan: Onychomycosis Discussion: Send n ail for culture ICD-9 : 110.1 ICD-10 : B35.1 01/16/2019 Visit Diagnosis Plan: Small bowel obstruction Discussi on: S/P surgery in September with postop complications of wound dehiscence ICD-9 : 560.9 ICD-10 : K56.609 01/16/2019 Appointment: Alexandra Carroll WPtel: [address] [place], [place] [phone] [place] MEDICATION REVIEW 01/16/2019 Appointment: Alexandra Carroll WPtel: [address] [place], [place] [phone] [place] CANCELED 12/12/2018 Visit Diagnosis Plan: Diarrhea, unspecified Discussion : Due for updated colonoscopy ICD-9 : 787.91 ICD-10 : R19.7 09/18/2018 Visit Diagnosis Plan: Radiculopathy, lumbosacral regio n Discussion: Had left SI joint injection by Dr. Baig about 2 weeks ago and has fwup with him ICD-9 : 724.4 ICD-10 : M54.17 09/18/2018 Appointment: Alexandar Carroll WPtel: [address] [place], [place] [phone] [place] PATIENT CONSULT 15 09/18/2018 Care Plan: Referral Order SNOMED-CT : 30 [id number] Pending 09/18/2018 Visit Diagnosis Plan: Other intervertebral [...] : M46.1 08/10/2018 Appointment: Alexandra Carroll WPtel: [address] [place], [place] [phone] [place] MEDICATION REVIEW 08/10/2018 Care Plan: Referral Order SNOMED-CT : 30 [id number] Pending 08/10/2018 Appointment: Alexandra Carroll WPtel: [address] [place], [place] [phone] [place] CANCELED 04/17/2018 Visit Diagnosis Plan: Fracture [...] : M54.2 03/27/2018 Appointment: Alexandra Carroll WPtel: [address] [place], [place] [phone] US FOLLOW UP 03/27/2018 Visit Diagnosis Plan: [...] : S42.002D 02/23/2018 Appointment: Alexandra Carroll WPtel: [address] [place], [place] [phone] US FOLLOW UP 02/23/2018 Patient Education: [email or web address]- [email or web address] Coupon [phone] [email or web address] Completed 02/23/2018 Visit Diagnosis Plan: Fracture of unspec ified part of left clavicle, subsequent encounter for fracture with routine healing Discussion: Hold on PT and do home stretches Trial of gabapentin Recheck 4 weeks ICD-9 : V54.11 ICD-10 : S42.002D 01/24/2018 Appointment: Alexandra Carroll WPtel: [address] [place], [place] [phone] US FOLLOW UP 01/24/2018 Visit Diagnosis Plan: Migraine, unspecif ied, not intractable, without status migrainosus Discussion: Toradol and phenergan given ICD-9 : 346.90 ICD-10 : G43.909 01/17/2018 Appointment: Alexandra Carroll WPtel: [address] [place], [place] [phone] 01/17/2018 Visit Diagnosis Plan: Retention of urine, unspecified Discussion: Seems to be related to back issues as comes on everytime back flares up so will do GERMAIN or SI joint injection ICD-9 : 788.20 ICD-10 : R33.9 12/29/2017 Visit Diagnosis Plan: Other intervertebral disc degene ration, lumbar region Discussion: Referral to pain management for injection ICD-9 : 722.52 ICD-10 : M51.36 12/29/2017 Visit Diagnosis Plan: Hematuria, unspecified Discussio n: Check pelvic and renal US ICD-9 : 599.70 ICD-10 : R31.9 12/29/2017 Appointment: Alexandra Carroll WPtel: 12 [place] [address] ACUTE ILLNESS 12/29/2017 Care Plan: US EXAM PELVIC COMPLETE LOINC : 31116-3 Pending 12/29/2017 Care Plan: ECHO EXAM OF ABDOMEN LOINC : 63495-1 Pending 12/29/2017 Care Plan: Referral Order SNOMED-CT : 30 [id number] Pending 12/29/2017 Visit Diagnosis Plan: Fracture of unspec ified part of left clavicle, subsequent encounter for fracture with routine healing Discussion: Start PT in another 7-14 days Off work for the rest of this week then may return to part-time work on 12/12/17 Fwup in 4 weeks ICD-9 : V54.11 ICD-10 : S42.002D 12/06/2017 Appointment: Alexandra Carroll WPtel: [address] [place], [place] [phone] [place] FOLLOW UP 12/06/2017 Patient Education: Patient [...] ICD-10 : Z88.1 12/01/2017 Appointment: Vandana Crowe [address] [place], [place] [phone] FOLLOW UP 12/01/2017 Patient Education: Patient Medication Summary Completed 12/01/2017 Visit Diagnosis Plan: Cellulitis of right upper limb D iscussion: discussed with dr. carrlol. continue with clindamycin with probiotics. ok to [...] ICD-10 : Z88.1 11/30/2017 Appointment: Vandana Crowe [address] [place], [place] [address]a [facility] 11/30/2017 Patient Education: Patient Medication Summary Completed [...] ICD-10 : L03.113 11/29/2017 Appointment: [facility] FO[facility] 11/29/2017 Patient Education: Patient Medication [...] ICD-10 : L03.113 11/28/2017 Appointment: Vandana Crowe [address] [place], [place] [address] ACUTE ILLNESS 11/28/2017 Patient Education: Patient Medication [...] M51.36 11/17/2017 Appointment: Alexandra Carroll WPtel: [phone] [id number] [place] MEDICATION REVIEW 11/17/2017 Patient Education: Patient Medication Summary Completed 11/17/2017 Care Plan: Referral Order SNOMED-CT : 30 [id number] Pending 11/17/2017 Patient Education: Patient Medication Summary Completed 10/12/2017 Care Plan: MRI LUMBAR SPINE W/O DYE LOIN C : 91715-8 Pending 10/12/2017 Care Plan: X-RAY EXAM L-S SPINE 2/3 VWS LOINC : 21672-9 Pending 10/11/2017 Visit Diagnosis Plan: Other retention [...] medrol pack to start tomorrow. [facility] with inversion table. instructed patient to go to ED immediately if she develops any incontinence with bowel or bladder. patient verbalized understanding. if no improvement, will need updated MRI and referral to surgeon. ICD-9 : 724.4 ICD-10 : M54.17 10/10/2017 Appointment: Vandana Crowe [address] [place], [place] [phone] ACUTE ILLNESS 10/10/2017 Patient Education: Patient Medication Summary Completed 10/10/2017 Appointment: Vandana Crowe [address] [place], [place] [phone] ACUTE ILLNESS 08/01/2017 Visit Diagnosis Plan: Other intervertebral disc degene ration, lumbar region Discussion: Core strengtheing and inversion table and if worsening will need updated MRI ICD-9 : 722.52 ICD-10 : M51.36 06/22/2017 Visit Diagnosis Plan: Encounter for [facility] adult medical examination without abnormal findings Discussion: Lab dis ussed Follow Up: 6 months ICD-9 : V70.0 ICD-10 : Z00.00 06/22/2017 Appointment: Alexandra Carroll WPtel: [phone] [facility] Annual Well Visit 06/22/2017 Patient Education: Patient Medication Summary Completed 06/22/2017 Patient Education: Patient Medication Summary Completed 06/16/2017 Care Plan: [place] : 42621-8 Pending 06/16/2017 Care Plan: ASSAY THYROID STIM HORMONE Pen ding 06/16/2017 Care Plan: ASSAY OF FREE THYROXINE Pendin g 06/16/2017 Care Plan: LIPID PANEL LOINC : 59326-4 Pending 06/16/2017 Care Plan: CBC Pending 06/16/2017 [...] : J06.9 03/28/2017 Appointment: Alexandra Carroll WPtel: [facility]4 [facility] ACUTE ILLNESS 03/28/2017 Patient Education: Patient Medication Summary Completed 03/28/2017 Visit Diagnosis Plan: Acute sinusitis, unspecified Dis cussion: cefdinir and medrol dose pack prescribed to be taken as directed. tylenol/ibuprofen as needed. educated on importance of taking singulair or zyrtec daily to prevent worsening symptoms. keep hydrated. ICD-9 : 461.9 ICD-10 : J01.90 02/16/2017 Appointment: Vandana Crowe [address] [place], [place] [address] ACUTE ILLNESS 02/16/2017 Patient Education: Patient Medication Summary Completed 02/16/2017 Appointment: Alexandra Carroll WPtel: [address] [place] [address] [place] INJECTION 11/02/2016 Patient Education: Patient Medication Summary Completed 11/02/2016 Visit Diagnosis Plan: Pain in thoracic spine Discussio n: Increase flexeril to 10mg po BID Add Mobic 15mg po daily Towel stretch May see chiropractor to adjust ribs Notify if persists or worsening ICD-9 : 724.1 ICD-10 : M54.6 09/06/2016 Appointment: Alexandra Carroll WPtel: [address] [place] [address] ACUTE ILLNESS 09/06/2016 Patient Education: Patient Medication Summary Completed 09/06/2016 Visit Plan: Due to hx, ERx Cefdinir and Prednisone (discussed risks for both) Given bottle for nasal saline rinses Tylenol/Ibuprofen prn pain/fever Fluids/rest Discussed s/s of worsening, RTC if no improvement 08/16/2016 Appointment: Vidya Manuel WPtel: [address] [place] [address] ACUTE ILLNESS 08/16/2016 Patient Education: Patient Medication [...] : F32.0 07/19/2016 Appointment: Alexandra Carroll WPtel: [facility]4 [facility] 07/15 confirmed`sl FOLLOW UP 07/19/2016 Patient Education: [...] : J30.1 07/06/2016 Appointment: Alexandra Carroll WPtel: [facility]0 [facility]6[address] 07/05 confirmed-sp FOLLOW UP 07/06/2016 Patient Education: Patient Medication Summary Completed 07/06/2016 Visit Plan: Saline nasal flushes prn. Ty lenol/Motrin prn headache. Notify if persists/symptoms worsening. 06/15/2016 Visit NOS Plan: Plan Notes: Saline nasal flu shes prn. Tyle... 06/15/2016 Visit Diagnosis Plan: Allergic rhinitis due to pollen Discussion: Kenalog/Dexamethasone Continue Claritin-D Add singulair Recheck 3 weeks ICD-9 : 477.9 ICD-10 : J30.1 06/15/2016 Visit Diagnosis Plan: Acute recurrent sinusitis, unspe cified Discussion: Omnicef for 3 weeks Take daily probiotic while on ICD-9 : 461.9 ICD-10 : J01.91 06/15/2016 Appointment: Alexandra Carroll WPtel: [facility] 06/14 lm ~sl ACUTE ILLNESS 06/15/2016 Patient Education: Patient Medication Summary Completed 06/15/2016 Visit Diagnosis Plan: Migraine, unspecif ied, not intractable, without status migrainosus Discussion: Injection as above Drink ple nty of water No driving x 6 hours Rest No OTC nsaids today Follow up PRN Refill called of claritin-d ICD-9 : 346.90 ICD-10 : G43.909 04/09/2016 Appointment: Nae Mckay [facility] [facility] ACUTE ILLNESS 04/09/2016 Patient Education: Patient Medication Summary Completed 04/09/2016 Visit Diagnosis Plan: Major depressive disorder, singl e episode, mild Discussion: Continue current meds ICD-9 : 311 ICD-10 : F32.0 03/17/2016 Visit Diagnosis Plan: Hypothyroidism, unspecified Disc ussion: Check TSH and free T4 ICD-9 : 244.9 ICD-10 : E03.9 03/17/2016 Visit Diagnosis Plan: Mixed hyperlipidemia Discussion: Check fasting lipids ICD-9 : 272.4 ICD-10 : E78.2 03/17/2016 Visit Diagnosis Plan: Other fatigue Discussion: Check TSH, Free T4, B12, CBC Discussed not using CPAP the full night may be part of fatigue ICD-9 : 780.79 ICD-10 : R53.83 03/17/2016 Appointment: Alexandra Carroll WPtel: [address] [place], [place] [phone] 03/16 nvm~sl 03/17 confirmed`sl FOLLOW UP 0 03/17/2016 Patient Education: Patient Medication Summary Completed 03/17/2016 Appointment: Alexandra Carroll WPtel: [address] [place], [place] [phone] [place] 03/11 lm~sl 03/15lm `sl 03/15 confirmed`sl FOLLOW U P 03/15/2016 Visit Plan: Discussed labeled indication s for benzos. Since xanax is not labeled for sleep and she has never tried anything else, encouraged her to trial restoril(another benzo) since it is labeled for sleep. She agrees with this trial. Rx called to [facility] after cost comparison which is nearly the same robert. If working well, continue the h8qeybs office visits. Call if not working well, and will restart xanax at for sleep. 11/13/2015 Appointment: Nae Mckay [address] [facility] 11/11 confirmed~sl FOLLOW UP 11/13/2015 Patient Education: Patient Medication Summary Completed 11/13/2015 Appointment: Alexandra Carroll WPtel: [address] [place], [place] [phone] Suture Removal 06/23/2015 Patient Education: Patient Medication Summary Completed 06/23/2015 Visit Plan: Removal of lesion above usin g 3-0 punch biopsy Return in 10 days for suture removal 06/12/2015 Appointment: Alexandra Carroll WPtel: [address] [place], [place] [phone] 06/10 lm ~sl ACUTE ILLNESS 06/12/2015 Patient Education: Patient Medication Summary Completed 06/12/2015 Referral: Soy Garcia [facility]el[facility] [place] [address] [place] Schedule patient around lunch time and 3 weeks from 04/22/2015 ~ Spoke with Kiesha at [facility] and 04/24/15 and scheduled the patient ~sl 04/24/15 Patient is informed~ 06/03 Patient canceled the appointment ~ Patient did not show up for scheduled appointment-sp Appoint ment Requested 05/21/2015 Appointment: Alexandra Carroll WPtel: [address] [place], [place] [phone] UA 05/05/2015 Patient Education: Patient Medication Summary Completed 05/05/2015 Visit Plan: Starts PT today Schedule wit h Dr. Garcia for epidural CT abdomen/pelvis results discussed Sees PROGRAM CONSULTANT in April and will get checked then 04/22/2015 Appointment: Alexandra Carroll WPtel: [address] [place], [place] [phone] 04/21 confirmed~lb ACUTE ILLNESS 04/22/2015 Patient Education: Patient Medication Summary Completed 04/22/2015 Referral: Lincoln Hernandez WPtel: [address] [place] [address] Referral Initiated 04/10/2015 Patient Education: Patient Medication Summary Completed 04/09/2015 Visit Plan: Start with lumosacral spine x-ray--will likely need MRI of L/S spine x-ray Needs urology--has had to have bladder stretched in past Tivorbex 03/24/2015 Appointment: Alexandra Carroll WPtel: [facility]6 [facility] 03/21/15 appt confirmed cn ACUTE ILLNESS 03/24 Patient Education: Patient Medication Summary Completed 03/24/2015 Visit Plan: Saline nasal flushes prn. Ty lenol/Motrin prn headache. Notify if persists/symptoms worsening. Cefuroxime to cover both sinuses and UTI Culture urine Check lab 02/27/2015 Appointment: Alexandra Carroll WPtel: [address] [place], [place] [phone] 02/26/15 vm to confirm and need new insu meri on file is inactive cn....02/27/15 appt confirmed cn ACUTE ILLNESS 015 Patient Education: Patient Medication Summary Completed 02/27/2015 Visit Plan: Lab discussed Stop simvastat in Check lipids in 6mos Continue all other meds at current dose Had Pap and Mammo 3 weeks ago 06/13/2014 Appointment: Alexandra Carroll WPtel: [address] [place], [place] [phone] Annual Well Visit 06/13/2014 Patient Education: Patient Medication Summary Completed 06/13/2014 Appointment: Shalini Walters WPtel: [address] [place], [place] [phone] ACUTE ILLNESS 04/18/2014 Patient Education: Patient Medication Summary Completed 04/18/2014 Visit Plan: Check lab in May then fwup Can try decreasing xanax to 1mg q HS with melatonin 5-10mg q HS 12/05/2013 Appointment: Alexandra Carroll WPtel: [address] [place], [place] [phone] 12/04 FOLLOW UP 12/05/2013 Patient Education: Patient Medication Summary Completed 12/05/2013 Appointment: Alexandra Carroll WPtel: [address] [place], [place] [phone] FOLLOW UP 06/05/2013 Patient Education: Patient Medication Summary Completed 06/05/2013 Appointment: Alexandra Carroll WPtel: [address] [place] [address] FOLLOW UP 05/22/2013 Patient Education: Patient Medication Summary Completed 05/22/2013 Visit Plan: Zovirax for 2wks Notify if p ain worsens or if persists 04/05/2013 Appointment: Alexandra Carroll WPtel: [address] [place] [address] ACUTE ILLNESS 04/05/2013 Patient Education: Patient Medication Summary Completed 04/05/2013 Visit Plan: Keep Wellbutrin at current d ose Pt did see physical chemistry teacher for counseling 03/26/2013 Appointment: Alexandra Carroll WPtel: [address] [place] [address] ACUTE ILLNESS 03/26/2013 Patient Education: Patient Medication Summary Completed 03/26/2013 Visit Plan: Continue citalopram at curre nt dose Increase xanax to 1-2mg q HS for sleep Add Wellbutrin Sr 100mg q AM Start Counseling 03/06/2013 Appointment: Alexandra Carroll WPtel: [address] [place] [address] ACUTE ILLNESS 03/06/2013 Patient Education: Patient Medication Summary Completed 03/06/2013 Appointment: Alexandra Carroll WPtel: [address] [place] [address] ACUTE ILLNESS 11/29/2012 Patient Education: Patient Medication Summary Completed 11/29/2012 Appointment: Alexandra Carroll WPtel: [address] [place] [address] ACUTE ILLNESS 09/26/2012 Patient Education: Patient Medication Summary Completed 09/26/2012 Appointment: Alexandra Carroll WPtel: [address] [place] [address] ACUTE ILLNESS 07/11/2012 Patient Education: Patient Medication Summary Completed 07/11/2012 Appointment: Alexandra Carroll WPtel: [address] [place], [place] [phone] [place] LAB 02/17/2012 Patient Education: Patient Medication Summary Completed 02/17/2012 Visit Plan: Check fasting lab Start annie y ca with Vit D Cont CPAP Mammo up-to-date Hemoccult card given 02/02/2012 Appointment: Alexandra Carroll WPtel: [address] [place] [address] PHYSICAL 02/02/2012 Patient Education: Patient Medication Summary Completed 02/02/2012 Appointment: Alexandra Carroll WPtel: [address] [place] [address] UA 08/27/2011 Patient Education: Patient Medication Summary Completed 08/27/2011 Visit Plan: Levaquin and Diflucan for 1w k Then cipro QOD for prophylaxis 08/17/2011 Appointment: Alexandra Carroll WPtel: [address] [place] [address] FOLLOW UP 08/17/2011 Patient Education: Patient Medication Summary Completed 08/17/2011 Appointment: Alexandra Carroll WPtel: [address] [place] [address] UA 12/28/2010 Patient Education: Patient Medication Summary Completed 12/28/2010 Appointment: Alexandra Carroll WPtel: [address] [place] [address] 11/09/2010 Patient Education: Patient Medication Summary Completed 11/09/2010 Appointment: Alexandra Carroll WPtel: [address] [place] [address] 10/29/2010 Patient Education: Patient Medication Summary Completed 10/29/2010 Appointment: Steph Bowen WPtel: [address] [place] [address] ACUTE ILLNESS 10/14/2010 Patient Education: Patient Medication Summary Completed 10/14/2010 Referral: Flroian Baig WPtel: [facility] [address], [facility] 1 [id number] [place] Referral Initiated Referral: Paulo Albert WPtel: [id number] [place] Referral Appointment Requested Referral: Luis Enrique Jasso WPtel: [facility] [address], [facility] 1 [id number] [place] Referral Appointment Requested Referral: Florian Baig WPtel: [facility] [address] 1 [id number] [place] Referral Appointment Requested Referral: Caleb Glaser WPtel: [address] [id number] [place] Referral Appointment Requested Referral: Florian Baig WPtel: [facility] [address], [facility] 1 [id number] [place] Referral Initiated Referral: Florina Baig WPtel: [facility] [address], [facility] 1 [id number] [place] Referral Appointment Requested Instructions Comment . [...] same robert. If working well, continue the h0fwiyc office visits. Call if not working well, and will restart xanax at HS for sleep. . Removal of lesion above using 3-0 punc h biopsy Return in 10 days for suture removal . Starts PT today Schedule with Dr. Garcia for epidural CT abdomen/pelvis results discussed Sees PROGRAM CONSULTANT in April and will get checked then [...]
--- OUTSIDE RECORDS SUMMARY | 2019-09-02 00:17 | XMS REPORT | CCD ---
Author Author Ilda Bowen APRN Organization [facility] Address [address] [place] [address] Phone Care Team Providers Care Pilot Manager Name Role Phone Alexandra Carroll D.O., PP Unavailable CCM Unavailable Summary Purpose Interface Exchange Insurance Providers Payer name Policy type / Coverage type Covered libertarian ID Effective Begin Date Effective End Date WPS MEDICARE PART B [place] Medicare Part B [id number] 2019 Unknown [employer] [place] Medicare Part B [id number] Unknown Family History Family History data not found Social History Social History Element Codes Description Effective Dates Tobacco history SNOMED CT: 510585954 Nonsmoker 10/14/2010 Allergies, Adverse Reactions, Alerts Substance Reaction Codes Entered Date Inactivated Date Status MORPHINE SULFATE RxNorm: 1762110 10/14/2010 No Inactive Da te Active CEPHALOSPORINS [...] Fill Instructions cyclobenzaprine 10 mg tablet RxNorm: 567067 Tablet(s) Oral as neede d 07/17/2019 No Stop Date Active Cipro 500 mg tablet RxNorm: 137476 1 Tablet(s) Oral two times a day 07/17/2019 07/22/2019 Active Xanax 1 mg tablet RxNorm: 250805 1-2 Tablet(s) Oral e very night at bedtime as needed for sleep 07/10/2019 08/08/2019 Active Generic For:LAVELLE AX 1MG 10/11/2016 11:15:13 AM prednisone 20 mg tablet RxNorm: 341224 1 Tablet(s) Oral two harlan es a day 06/26/2019 07/03/2019 Inactive Amabelz 1 mg-0.5 mg tablet RxNorm: 3139236 1 Tablet(s) Oral QD 05/3007/17/2019 Inactive Trazadone 150 mg Tablet RxNorm: 1 Tablet(s) Oral every n ight at bedtime 05/14/2019 No Stop Date Active Levaquin 500 mg tablet RxNorm: 838440 1 Tablet(s) Oral QD 05/14/2019 05/21/2019 Inactive Xanax 1 mg tablet RxNorm: 016086 1-2 Tablet(s) Oral e very night at bedtime as needed for sleep 05/03/2019 06/01/2019 Inactive Generic For:LAVELLE AX 1MG 10/11/2016 11:15:13 AM cyclobenzaprine 10 mg tablet RxNorm: 434080 1 Tablet(s) Oral three times a day as needed for muscle spasm 02/12/2019 02/12/2019 Inactive Xanax 1 mg tablet RxNorm: 809448 1-2 Tablet(s) Oral e very night at bedtime as needed for sleep 02/09/2019 03/10/2019 Inactive Generic For:LAVELLE AX 1MG 10/11/2016 11:15:13 AM Xanax 1 mg tablet RxNorm: 141935 1-2 Tablet(s) Oral e very night at bedtime as needed for sleep 01/22/2019 02/08/2019 Inactive Generic For:LAVELLE AX 1MG 10/11/2016 11:15:13 AM Celexa 40 mg tablet RxNorm: 595643 1 Tablet(s) Oral QD 01/17/2019 Active - First Attempt Ref: [id number] Xanax 1 mg tablet RxNorm: 719084 1 Tablet(s) Oral every night a t bedtime 01/08/2019 01/21/2019 Inactive levothyroxine 88 mcg tablet RxNorm: 121475 TAKE 1 TABLET BY NINA TH DAILY 12/19/2018 06/16/2019 Inactive - First Attempt Ref: [id number] Xanax 1 mg tablet RxNorm: 389161 1 Tablet(s) Oral every night a t bedtime 12/06/2018 01/05/2019 Inactive Singulair 10 mg tablet RxNorm: 951969 1 Tablet(s) Oral every ni ght at bedtime 11/23/2018 11/17/2019 Active - First Attempt Ref: [id number] Celexa 40 mg tablet RxNorm: 622369 1 Tablet(s) Oral 11/23/20182018 Inactive - First Attempt Ref: [id number] cyclobenzaprine 10 mg tablet RxNorm: 221462 1 Tablet(s) Oral three times a day as needed for muscle spasm 11/23/2018 02/11/2019 Inactive Xanax 1 mg tablet RxNorm: 000945 1 Tablet(s) PO QHS 11/06/20182018 Inactive Xanax 1 mg tablet RxNorm: 218003 1 Tablet(s) PO QHS 09/26/20182018 Inactive Singulair 10 mg tablet RxNorm: 498804 TAKE 1 TABLET BY MOUTH EVERY NIGHT AT BEDTIME 08/16/2018 11/22/2018 Inactive - First Attempt Ref: [id number] Xanax 1 mg tablet RxNorm: 771568 1 Tablet(s) PO QHS 08/01/20182018 Inactive levothyroxine 88 mcg tablet RxNorm: 821560 TAKE 1 TABLET BY NINA TH DAILY 07/31/2018 12/18/2018 Inactive - First Attempt Ref: [id number] Celexa 40 mg tablet RxNorm: 777019 TAKE 1 TABLET BY MOUTH DAILY 04/201811/22/2018 Inactive - First Attempt Ref: [id number] 54 bupropion HCl SR 100 mg tablet,12 hr sustained-release RxNor m: 276315 1 Tablet(s) PO BID 07/12/2018 07/06/2019 Inactive - Ref: [id number] 7 Claritin-D 24 Hour 10 mg-240 mg tablet,extended release RxNo rm: 1005938 1 Tablet(s) PO QD 06/29/2018 2018 Inactive Claritin-D 24 Hour 10 mg-240 mg tablet,extended release RxNo rm: 0708827 1 Tablet(s) PO QD 06/29/2018 2018 Inactive Xanax 1 mg tablet RxNorm: 525068 1-2 Tablet(s) PO QHS as needed for sleep 05/26/2018 06/23/2018 Inactive Generic For:XANAX 1M G 10/11/2016 11:15:13 AM Xanax 1 mg tablet RxNorm: 288955 1-2 Tablet(s) PO QHS as needed for sleep 03/28/2018 05/25/2018 Inactive Generic For:XANAX 1M G 10/11/2016 11:15:13 AM Macrobid 100 mg capsule RxNorm: 992808 1 Capsule(s) PO BID 03/27/19 19 03/31/2018 Inactive gabapentin 300 mg capsule RxNorm: 443988 1 Capsule(s) PO QHS 201703/26/2018 Inactive Claritin-D 24 Hour 10 mg-240 mg tablet,extended release RxNo rm: 4622205 1 Tablet(s) PO QD 01/26/2018 02/24/2018 Inactive gabapentin 100 mg capsule RxNorm: 239961 1 Capsule(s) P O QHS for 1 week then 2 po q HS for 2 weeks then 3 po q HS 01/24/2018 03/26/2018 Inactive Xanax 1 mg tablet RxNorm: 851793 1-2 Tablet(s) PO QHS as needed for sleep 01/24/2018 03/24/2018 Inactive Generic For:XANAX 1M G 10/11/2016 11:15:13 AM prednisone 20 mg tablet RxNorm: 919727 1 Tablet(s) PO T ID for 3 days then 1 po BID for 3 days then one daily for 3 days 12/29/2017 03/26/2018 Inactiv e prednisone 20 mg tablet RxNorm: 015108 3 Tablet(s) PO T ID for 3 days then 1 po BID for 3 days then one daily for 3 days 12/29/2017 12/29/2017 Inactiv e Macrobid 100 mg capsule RxNorm: 783338 1 Capsule(s) PO BID 12/30/19 18 01/02/2018 Inactive Xanax 1 mg tablet RxNorm: 704928 1-2 Tablet(s) PO QHS as needed for sleep 12/28/2017 01/23/2018 Inactive Generic For:XANAX 1M G 10/11/2016 11:15:13 AM Medrol (Walter) 4 mg tablets in a dose pack RxNorm: 784109 Tablet(s) PO take as directed 12/01/2017 03/26/2018 Inactive Keflex 750 mg capsule RxNorm: 222558 1 Capsule(s) PO BID 12/01/2017 1 Inactive clindamycin HCl 300 mg capsule RxNorm: 844245 2 Capsule(s) PO TID 1 12/08/2017 Inactive Xanax 1 mg tablet RxNorm: 344997 1-2 Tablet(s) PO QHS as needed for sleep 11/28/2017 12/27/2017 Inactive Generic For:XANAX 1M G 10/11/2016 11:15:13 AM mupirocin 2 % topical ointment RxNorm: 265758 1 Application OTIC BI D 11/28/2017 08/09/2018 Inactive Xanax 1 mg tablet RxNorm: 984266 1-2 Tablet(s) PO QHS as needed for sleep 10/27/2017 11/25/2017 Inactive Generic For:XANAX 1M G 10/11/2016 11:15:13 AM Macrobid 100 mg capsule RxNorm: 552438 1 Capsule(s) PO BID 10/11/19 18 10/16/2017 Inactive Medrol (Walter) 4 mg tablets in a dose pack RxNorm: 187294 Tablet(s) PO take as directed 10/10/2017 11/16/2017 Inactive Xanax 1 mg tablet RxNorm: 390940 1-2 Tablet(s) PO QHS as needed for sleep 09/28/2017 10/26/2017 Inactive Generic For:XANAX 1M G 10/11/2016 11:15:13 AM Xanax 1 mg tablet RxNorm: 418132 1-2 Tablet(s) PO QHS as needed for sleep 08/30/2017 09/27/2017 Inactive Generic For:XANAX 1M G 10/11/2016 11:15:13 AM Xanax 1 mg tablet RxNorm: 695030 1-2 Tablet(s) PO QHS as needed for sleep 08/30/2017 08/29/2017 Inactive Generic For:XANAX 1M G 10/11/2016 11:15:13 AM Xanax 1 mg tablet RxNorm: 826362 1-2 Tablet(s) PO QHS as needed for sleep 08/01/2017 08/29/2017 Inactive Generic For:XANAX 1M G 10/11/2016 11:15:13 AM Xanax 1 mg tablet RxNorm: 466775 1-2 Tablet(s) PO QHS as needed for sleep 06/29/2017 2017 Inactive Generic For:XANAX 1M G 10/11/2016 11:15:13 AM Claritin-D 24 Hour 10 mg-240 mg tablet,extended release RxNo rm: 4459469 1 Tablet(s) PO QD 06/29/2017 2017 Inactive levothyroxine 88 mcg tablet RxNorm: 021638 1 Tablet(s) PO QD 201709/10/2017 Inactive Xanax 1 mg tablet RxNorm: 058664 1-2 Tablet(s) PO QHS as needed for sleep 05/26/2017 06/28/2017 Inactive Generic For:XANAX 1M G 10/11/2016 11:15:13 AM Claritin-D 24 Hour 10 mg-240 mg tablet,extended release RxNo rm: 2558016 1 Tablet(s) PO QD 05/26/2017 06/24/2017 Inactive bupropion HCl SR 100 mg tablet,12 hr sustained-release RxNor m: 088970 Tablet(s) Take 1 tablet by mouth two times daily 04/06/2017 12/31/2017 Inactive - Ref: [id number] Xanax 1 mg tablet RxNorm: 530815 1-2 Tablet(s) PO QHS as needed for sleep 03/24/2017 05/22/2017 Inactive Generic For:XANAX 1M G 10/11/2016 11:15:13 AM Medrol (Walter) 4 mg tablets in a dose pack RxNorm: 676581 Tablet(s) P O 02/16/2017 03/27/2017 Inactive Xanax 1 mg tablet RxNorm: 622469 Tablet(s) TAKE ONE T O TWO TABLETS BY MOUTH AT BEDTIME NEEDED 02/16/2017 03/17/2017 Inactive Generic For:XA NAX 1MG 10/11/2016 11:15:13 AM Claritin-D 24 Hour 10 mg-240 mg tablet,extended release RxNo rm: 8809670 1 Tablet(s) PO QD 02/16/2017 04/16/2017 Inactive cefdinir 300 mg capsule RxNorm: 593148 2 Capsule(s) PO QD 02/16/2017 02/25/2017 Inactive Celexa 40 mg tablet RxNorm: 173635 Tablet(s) Take 1 tablet by m outh daily 12/23/2016 09/18/2017 Inactive - Ref: [id number] Xanax 1 mg tablet RxNorm: 668570 Tablet(s) TAKE ONE T O TWO TABLETS BY MOUTH AT BEDTIME NEEDED 12/16/2016 01/14/2017 Inactive Generic For:XA NAX 1MG 10/11/2016 11:15:13 AM Xanax 1 mg tablet RxNorm: 593856 Tablet(s) TAKE ONE T O TWO TABLETS BY MOUTH AT BEDTIME NEEDED 11/18/2016 12/15/2016 Inactive Generic For:XA NAX 1MG 10/11/2016 11:15:13 AM Xanax 1 mg tablet RxNorm: 759416 TAKE ONE TO TWO TABL ETS BY MOUTH AT BEDTIME NEEDED 10/11/2016 11/17/2016 Inactive Generic For:XANA X 1MG 10/11/2016 11:15:13 AM Mobic 15 mg tablet RxNorm: 391352 1 Tablet(s) PO QD 09/06/20162016 Inactive Claritin-D 24 Hour 10 mg-240 mg tablet,extended release RxNo rm: 7155762 1 Tablet(s) PO QD 09/02/2016 11/30/2016 Inactive prednisone 20 mg tablet RxNorm: 448190 1 Tablet(s) PO T ID for 3 days then 1 po BID for 3 days then one daily for 3 days 08/16/2016 03/27/2017 Inactiv e cefdinir 300 mg capsule RxNorm: 425220 2 Capsule(s) PO QD 08/16/2016 09/05/2016 Inactive Xanax 1 mg tablet RxNorm: 279247 TAKE ONE TO TWO TABL ETS BY MOUTH AT BEDTIME NEEDED 08/05/2016 10/11/2016 Inactive Generic For:XANA X 1MG 08/05/2016 2:27:03 PM08/04/2016 4:15:22 PM Singulair 10 mg tablet RxNorm: 734429 1 Tablet(s) PO QHS 07/06/2016 0 09/03/2016 Inactive prednisone 20 mg tablet RxNorm: 411127 1 Tablet(s) PO T ID for 3 days then 1 po BID for 3 days then one daily for 3 days 06/15/2016 07/05/2016 Inactiv e Singulair 10 mg tablet RxNorm: 572549 1 Tablet(s) PO QHS 06/15/2016 0 07/05/2016 Inactive cefdinir 300 mg capsule RxNorm: 570064 2 Capsule(s) PO QD 06/15/2016 07/05/2016 Inactive Xanax 1 mg tablet RxNorm: 116760 1-2 Tablet(s) PO QHS 05/21/201610/2016 Inactive Claritin-D 24 Hour 10 mg-240 mg tablet,extended release RxNo rm: 7990950 1 Tablet(s) PO QD 04/09/2016 07/07/2016 Inactive Xanax 1 mg tablet RxNorm: 194116 1-2 Tablet(s) PO QHS 03/23/201604/29 Inactive levothyroxine 88 mcg tablet RxNorm: 498153 1 Tablet(s) PO QD 201606/13/2017 Inactive bupropion HCl SR 100 mg tablet,sustained-release RxNorm: 993 503 Take 1 tablet by mouth two times daily 03/15/2016 12/09/2016 Inactive - Ref: 20 [id number] Celexa 40 mg tablet RxNorm: 256543 Take 1 tablet by mouth daily 12/23/2016 Inactive - Ref: [id number] Xanax 1 mg tablet RxNorm: 564337 1-2 Tablet(s) PO QHS 02/17/201603/01 Inactive levothyroxine 88 mcg tablet RxNorm: 429224 1 Tablet(s) PO QD 201502/22/2016 Inactive Xanax 1 mg tablet RxNorm: 239810 1-2 Tablet(s) PO QHS 11/25/201511/29 Inactive levothyroxine 88 mcg tablet RxNorm: 334104 1 Tablet(s) PO QD 201511/24/2015 Inactive temazepam 30 mg capsule RxNorm: 322530 1 Capsule(s) PO QHS 11/13/19 16 11/24/2015 Inactive Xanax 1 mg tablet RxNorm: 561930 1-2 Tablet(s) PO QHS 09/15/201510/29 Inactive Celexa 40 mg tablet RxNorm: 314934 1 Tablet(s) PO QD 1 Tablet(s ) PO QD 09/10/2015 09/16/2015 Inactive bupropion HCl SR 100 mg tablet,sustained-release RxNorm: 993 503 1 Tablet(s) PO BID 09/10/2015 09/23/2015 Inactive Xanax 1 mg tablet RxNorm: 920402 1-2 Tablet(s) PO QHS 09/10/201508/28 Inactive Xanax 1 mg tablet RxNorm: 768465 1-2 Tablet(s) PO QHS 08/11/201508/28 Inactive cyclobenzaprine 10 mg tablet RxNorm: 589236 1 Tablet(s) PO TID prn spasm 07/09/2015 11/23/2018 Inactive Celexa 40 mg tablet RxNorm: 563476 1 Tablet(s) PO QD 06/06/201508/03 Inactive Xanax 1 mg tablet RxNorm: 543608 1-2 Tablet(s) PO QHS 06/04/201505/2015 Inactive levothyroxine 88 mcg tablet RxNorm: 328763 1 Tablet(s) PO QD 201511/23/2015 Inactive Ceftin 500 mg tablet RxNorm: 984442 1 Tablet(s) PO BID 05/05/2015 Inactive Ceftin 500 mg tablet RxNorm: 055011 1 Tablet(s) PO BID 05/05/201507/2015 Inactive meloxicam 15 mg tablet RxNorm: 443326 1 Tablet(s) PO QD 04/16/2015 Inactive meloxicam 15 mg tablet RxNorm: 604766 1 Tablet(s) PO QD 04/16/2015 Inactive diclofenac sodium 75 mg tablet,delayed release RxNorm: 76829 6 1 Tablet(s) PO BID 04/04/2015 04/15/2015 Inactive diclofenac sodium 75 mg tablet,delayed release RxNorm: 15394 6 1 Tablet(s) PO BID 04/04/2015 04/03/2015 Inactive Tivorbex 40 mg capsule RxNorm: 2610327 1 Capsule(s) PO TID 03/24/19 16 04/02/2015 Inactive bupropion HCl SR 100 mg tablet,sustained-release RxNorm: 993 503 1 Tablet(s) PO BID 03/11/2015 09/06/2015 Inactive cyclobenzaprine 10 mg tablet RxNorm: 354152 1 Tablet(s) PO TID prn spasm 03/11/2015 07/08/2015 Inactive levothyroxine 88 mcg tablet RxNorm: 830543 1 Tablet(s) PO QD 201405/27/2015 Inactive Claritin-D 24 Hour 10 mg-240 mg tablet,extended release RxNo rm: 8268607 1 Tablet(s) PO QD 02/27/2015 05/27/2015 Inactive cefuroxime axetil 500 mg tablet RxNorm: 776756 1 Tablet(s) PO BID 1 03/12/2015 Inactive Celexa 40 mg tablet RxNorm: 071181 1 Tablet(s) PO QD 02/05/201504/05 Inactive levothyroxine 75 mcg tablet RxNorm: 261949 1 Tablet(s) PO QD 201402/26/2015 Inactive Celexa 40 mg tablet RxNorm: 317513 1 Tablet(s) PO QD 10/09/201402/04 Inactive Activella 1 mg-0.5 mg tablet RxNorm: 5263636 1 Tablet(s) PO QD 08/2802/26/2015 Inactive bupropion HCl SR 100 mg tablet,sustained-release RxNorm: 993 503 1 Tablet(s) PO BID 09/12/2014 03/10/2015 Inactive levothyroxine 75 mcg tablet RxNorm: 246553 1 Tablet(s) PO QD 201412/09/2014 Inactive levothyroxine 75 mcg tablet RxNorm: 538746 1 Tablet(s) PO QD 201409/11/2014 Inactive Celexa 40 mg tablet RxNorm: 421389 1 Tablet(s) PO QD 08/12/201410/08 Inactive Xanax 1 mg tablet RxNorm: 434882 1-2 Tablet(s) PO QHS 08/12/201409/28 Inactive Claritin-D 24 Hour 10 mg-240 mg tablet,extended release RxNo rm: 6427623 1 Tablet(s) PO QD 06/13/2014 09/10/2014 Inactive cyclobenzaprine 10 mg tablet RxNorm: 890314 1 Tablet(s) PO TID prn spasm 06/12/2014 02/26/2015 Inactive Xanax 1 mg tablet RxNorm: 989310 1-2 Tablet(s) PO QHS 05/09/201406/28 Inactive levothyroxine 75 mcg tablet RxNorm: 346959 1 Tablet(s) PO QD 201407/08/2014 Inactive cephalexin 500 mg capsule RxNorm: 779002 1 Capsule(s) PO QOD 201402/26/2015 Inactive simvastatin 10 mg tablet RxNorm: 807936 1 Tablet(s) PO QHS 04/10/19 15 06/12/2014 Inactive Xanax 1 mg tablet RxNorm: 648525 1-2 Tablet(s) PO QHS 04/10/201404/28 Inactive levothyroxine 75 mcg tablet RxNorm: 913365 1 Tablet(s) PO QD 201404/09/2014 Inactive levothyroxine 75 mcg capsule RxNorm: 489621 1 Capsule(s) PO QD 03/3104/10/2014 Inactive Activella 1 mg-0.5 mg tablet RxNorm: 8503877 1 Tablet(s) PO QD 03/0109/11/2014 Inactive bupropion HCl SR 100 mg tablet,sustained-release RxNorm: 993 503 1 Tablet(s) PO BID 03/04/2014 08/30/2014 Inactive Activella 1 mg-0.5 mg tablet RxNorm: 5531919 1 Tablet(s) PO QD 01/2803/18/2014 Inactive levothyroxine 75 mcg capsule RxNorm: 577937 1 Capsule(s) PO QD 12/2904/08/2014 Inactive simvastatin 10 mg tablet RxNorm: 009192 1 Tablet(s) PO QHS 01/10/20 14 04/08/2014 Inactive cyclobenzaprine 10 mg tablet RxNorm: 246365 1 Tablet(s) PO TID prn spasm 01/09/2014 04/08/2014 Inactive Cipro 500 mg tablet RxNorm: 005536 1 Tablet(s) PO BID 12/25/201304/2013 Inactive Cipro 500 mg tablet RxNorm: 775027 1 Tablet(s) PO BID 12/25/201311/29 Inactive bupropion HCl SR 100 mg tablet,sustained-release RxNorm: 993 503 1 Tablet(s) PO QAM 12/11/2013 03/03/2014 Inactive cephalexin 500 mg capsule RxNorm: 159075 1 Capsule(s) PO QOD 201304/09/2014 Inactive Xanax 1 mg tablet RxNorm: 419362 1-2 Tablet(s) PO QHS 10/15/201310/29 Inactive simvastatin 10 mg tablet RxNorm: 029892 1 Tablet(s) PO QHS 10/11/19 14 01/07/2014 Inactive Celexa 40 mg tablet RxNorm: 363081 Tablet(s) PO TAKE 1 TABLET BY MOUTH ONCE DAILY. 09/18/2013 09/17/2013 Inactive Xanax 1 mg tablet RxNorm: 012169 1-2 Tablet(s) PO QHS 08/13/201308/28 Inactive simvastatin 10 mg tablet RxNorm: 969545 1 Tablet(s) PO QHS 07/12/19 14 10/08/2013 Inactive bupropion HCl SR 100 mg tablet,sustained-release RxNorm: 993 503 1 Tablet(s) PO QAM 05/22/2013 11/17/2013 Inactive Pamelor 10 mg capsule RxNorm: 783525 1 Capsule(s) PO QHS for PLATA /sleep 05/22/2013 06/04/2013 Inactive Xanax 1 mg tablet RxNorm: 168629 1-2 Tablet(s) PO QHS 05/15/201305/29 Inactive Pamelor 10 mg capsule RxNorm: 842637 1 Capsule(s) PO QHS for PLATA /sleep 05/15/2013 05/21/2013 Inactive Xanax 1 mg tablet RxNorm: 179314 1 Tablet(s) PO QHS 04/27/20132013 Inactive Zovirax 800 mg tablet RxNorm: 846977 1 Tablet(s) PO TID 04/05/2013 Inactive Xanax 1 mg tablet RxNorm: 197686 1 Tablet(s) PO QHS 04/03/2013 No Sto p Date Active bupropion HCl SR 100 mg tablet,sustained-release RxNorm: 993 503 1 Tablet(s) PO QAM 03/26/2013 05/21/2013 Inactive bupropion HCl SR 100 mg tablet,sustained-release RxNorm: 993 503 1 Tablet(s) PO QAM 03/06/2013 03/25/2013 Inactive Pamelor 10 mg capsule RxNorm: 070702 1 Capsule(s) PO QHS for PLATA /sleep 02/14/2013 05/14/2013 Inactive levothyroxine 75 mcg capsule RxNorm: 865747 1 Capsule(s) PO QD 12/2901/08/2014 Inactive simvastatin 10 mg tablet RxNorm: 582886 1 Tablet(s) PO QHS TAKE 1 TABLET BY MOUTH ONCE DAILY AT BEDTIME. 01/15/2013 07/10/2013 Inactive cyclobenzaprine 10 mg tablet RxNorm: 445375 1 Tablet(s) PO TID prn spasm 12/25/2012 06/22/2013 Inactive Pamelor 10 mg capsule RxNorm: 682220 1 Capsule(s) PO QHS for PLATA /sleep 11/29/2012 02/14/2013 Inactive Celexa 40 mg tablet RxNorm: 093006 Tablet(s) PO TAKE 1 TABLET BY MOUTH ONCE DAILY. 10/11/2012 09/17/2013 Inactive simvastatin 10 mg tablet RxNorm: 627006 Tablet(s) PO TA KE 1 TABLET BY MOUTH ONCE DAILY AT BEDTIME. 10/11/2012 01/14/2013 Inactive simvastatin 10 mg tablet RxNorm: 698448 1 Tablet(s) PO QD 07/11/2012 10/08/2012 Inactive simvastatin 10 mg tablet RxNorm: 319212 1 Tablet(s) PO QD 04/14/2012 07/11/2012 Inactive simvastatin 10 mg tablet RxNorm: 517167 1 Tablet(s) PO QD 04/14/2012 04/13/2012 Inactive Celexa 40 mg tablet RxNorm: 981865 1 Tablet(s) PO QD 03/15/201209/10 Inactive cyclobenzaprine 10 mg tablet RxNorm: 915429 1 Tablet(s) PO TID prn spasm 02/02/2012 02/01/2012 Inactive cyclobenzaprine 10 mg tablet RxNorm: 170829 1 Tablet(s) PO TID prn spasm 02/02/2012 07/30/2012 Inactive Diflucan 100 mg Tab RxNorm: 730007 1 Tablet(s) PO QD 08/17/201108/22 Inactive Cipro 250 mg Tab RxNorm: 502976 1 Tablet(s) PO QD 08/17/2011 10/15/19 12 Inactive Levaquin 500 mg Tab RxNorm: 648785 1 Tablet(s) PO QD 08/17/201108/22 Inactive Pyridium 200 mg Tab RxNorm: 0476454 1 Tablet(s) PO TID 10/14/2010 Inactive may turn urine orange-red color. Cipro 500 mg Tab RxNorm: 384236 1 Tablet(s) PO BID 10/14/2010 011 Inactive levothyroxine 75 mcg capsule RxNorm: 520734 1 Capsule(s) PO QD 12/3001/14/2011 Inactive Vitamin D3 5,000 unit tablet RxNorm: 333180 1 Tablet(s) PO QD No Star t Date Active Nasacort 55 mcg nasal spray aerosol RxNorm: 1962453 2 Sp ray NASAL each nostril QHS No Start Date Active cyclobenzaprine 10 mg tablet RxNorm: 980339 1 Tablet(s) PO TID as needed No Start Date 11/22/2018 Inactive Vitamin D2 1,000 unit capsule RxNorm: 457689 3 Capsule(s) PO QD No Start Date 11/16/2017 Inactive diclofenac sodium 75 mg tablet,delayed release RxNorm: 26115 6 1 Tablet(s) PO BID No Start Date 03/16/2016 Inactive cephalexin 500 mg capsule RxNorm: 950524 1 Capsule(s) PO QOD No Sta rt Date 12/04/2013 Inactive cyclobenzaprine 10 mg tablet RxNorm: 645088 1 Tablet(s) PO QHS No S tart Date 02/01/2012 Inactive loratadine 10 mg tablet RxNorm: 658188 1 Tablet(s) PO QHS No Start Date 05/14/2019 Inactive hydrocodone 5 mg-acetaminophen 500 mg tablet RxNorm: 002820 1 -2 Tablet(s) PO Q6H as needed No Start Date 08/09/2018 Inactive etodolac 400 mg tablet RxNorm: 490004 1 Tablet(s) PO TID No Start D ate 09/17/2018 Inactive Xanax 1 mg tablet RxNorm: 788604 1 Tablet(s) PO QHS No Start Date 04/2013 Inactive Vitamin D3 1,000 unit capsule RxNorm: 310166 1 Capsule(s) PO QD No Start Date 06/12/2014 Inactive estradiol 2 mg tablet RxNorm: 435256 1/2 Tablet(s) PO QD No Start D ate 03/05/2013 Inactive Celexa 40 mg tablet RxNorm: 984057 1 Tablet(s) PO QD No Start Date Inactive Activella 1 mg-0.5 mg tablet RxNorm: 4820742 1 Tablet(s) PO QD No S tart Date 07/10/2012 Inactive medroxyprogesterone 5 mg tablet RxNorm: 0244520 1/2 Tablet(s) PO QD No Start Date 03/05/2013 Inactive levothyroxine 88 mcg tablet RxNorm: 948710 1 Tablet(s) PO QD No Sta rt Date 02/26/2015 Inactive Keflex 500 mg capsule RxNorm: 165445 1 Capsule(s) PO PRN No Start D ate 08/16/2011 Inactive Activella 1 mg-0.5 mg tablet RxNorm: 4099484 1 Tablet(s) PO QHS No Start Date 03/27/2017 Inactive Activella 1 mg-0.5 mg tablet RxNorm: 0634552 1 Tablet(s) PO QD No S tart Date 02/06/2014 Inactive Flexeril 10 mg Tab RxNorm: 645399 1 Tablet(s) PO TID No Start Date Inactive prn spasm simvastatin 10 mg tablet RxNorm: 613697 1 Tablet(s) PO QD No Start Date 04/13/2012 Inactive Medication Administered No Medication Administered data Immunizations Vaccine Codes Date Status Influenza CVX: 135 01/16/2019 Complete Pneumococcal CVX: 133 01/16/2019 Complete Results No Results data Procedures Procedure Codes Date URINALYSIS NONAUTO W/O SCOPE CPT-4: 37977 07/17/2019 URINE CULTURE/ COLONY COUNT CPT-4: 32133 07/17/2019 DEXAMETHASONE SODIUM PHOS CPT-4: J1100 05/14/2019 THER/PROPH/DIAG INJ SC/IM CPT-4: 19081 05/14/2019 TRIAMCINOLONE ACET INJ NOS CPT-4: J3301 05/14/2019 FLU VACC PRSV FREE INC ANTIG 65 AND OLDER CPT-4: 68972 01/16/2019 FLU VACC PRSV FREE INC ANTIG 65 AND OLDER CPT-4: 22555 01/16/2019 PNEUMOCOCCAL VACC 13 NARESH IM CPT-4: 32719 01/16/2019 SKIN FUNGI CULTURE CPT-4: 02789 01/16/2019 IMMUNIZATION ADMIN CPT-4: 93321 01/16/2019 IMMUNIZATION ADMIN EACH ADD CPT-4: 91723 01/16/2019 THER/PROPH/DIAG INJ SC/IM CPT-4: 44260 01/17/2018 KETOROLAC TROMETHAMINE INJ CPT-4: J1885 01/17/2018 THER/PROPH/DIAG INJ SC/IM CPT-4: 98576 01/17/2018 PROMETHAZINE HCL INJECTION CPT-4: J2550 01/17/2018 URINALYSIS NONAUTO W/O SCOPE CPT-4: 69066 12/29/2017 URINE CULTURE/ COLONY COUNT CPT-4: 65707 12/29/2017 THER/PROPH/DIAG INJ SC/IM CPT-4: 25128 11/30/2017 TRIAMCINOLONE ACET INJ NOS CPT-4: J3301 11/30/2017 DEXAMETHASONE SODIUM PHOS CPT-4: J1100 11/30/2017 CEFTRIAXONE SODIUM INJECTION CPT-4: J0696 11/29/2017 THER/PROPH/DIAG INJ SC/IM CPT-4: 04502 11/29/2017 CEFTRIAXONE SODIUM INJECTION CPT-4: J0696 11/28/2017 THER/PROPH/DIAG INJ SC/IM CPT-4: 85812 11/28/2017 URINALYSIS NONAUTO W/O SCOPE CPT-4: 77052 10/10/2017 THER/PROPH/DIAG INJ SC/IM CPT-4: 15937 10/10/2017 TRIAMCINOLONE ACET INJ NOS CPT-4: J3301 10/10/2017 DEXAMETHASONE SODIUM PHOS CPT-4: J1100 10/10/2017 CEFTRIAXONE SODIUM INJECTION CPT-4: J0696 10/10/2017 THER/PROPH/DIAG INJ SC/IM CPT-4: 99704 10/10/2017 URINE CULTURE/ COLONY COUNT CPT-4: 70328 10/10/2017 THER/PROPH/DIAG INJ SC/IM CPT-4: 48869 11/02/2016 KETOROLAC TROMETHAMINE INJ CPT-4: J1885 11/02/2016 THER/PROPH/DIAG INJ SC/IM CPT-4: 99475 06/15/2016 TRIAMCINOLONE ACET INJ NOS CPT-4: J3301 06/15/2016 DEXAMETHASONE SODIUM PHOS CPT-4: J1100 06/15/2016 THER/PROPH/DIAG INJ SC/IM CPT-4: 61319 04/09/2016 KETOROLAC TROMETHAMINE INJ CPT-4: J1885 04/09/2016 PROMETHAZINE HCL INJECTION CPT-4: J2550 04/09/2016 EXC TR-EXT B9+ERASMO 0.5 CM< CPT-4: 20886 06/12/2015 URINALYSIS NONAUTO W/O SCOPE CPT-4: 08999 05/05/2015 URINE CULTURE/ COLONY COUNT CPT-4: 30064 05/05/2015 URINALYSIS NONAUTO W/O SCOPE CPT-4: 77543 03/24/2015 URINALYSIS NONAUTO W/O SCOPE CPT-4: 82468 02/27/2015 URINE CULTURE/ COLONY COUNT CPT-4: 50558 02/27/2015 THER/PROPH/DIAG INJ SC/IM CPT-4: 14721 04/18/2014 KETOROLAC TROMETHAMINE INJ CPT-4: J1885 04/18/2014 THER/PROPH/DIAG INJ SC/IM CPT-4: 45776 06/05/2013 TRIAMCINOLONE ACET INJ NOS CPT-4: J3301 06/05/2013 THER/PROPH/DIAG INJ SC/IM CPT-4: 10142 11/29/2012 KETOROLAC TROMETHAMINE INJ CPT-4: J1885 11/29/2012 URINALYSIS NONAUTO W/O SCOPE CPT-4: 41496 07/11/2012 URINE CULTURE/ COLONY COUNT CPT-4: 88640 07/11/2012 OCCULT BLOOD FECES CPT-4: 18126 02/17/2012 URINALYSIS NONAUTO W/O SCOPE CPT-4: 32500 08/27/2011 URINE CULTURE/ COLONY COUNT CPT-4: 09488 08/27/2011 URINALYSIS NONAUTO W/O SCOPE CPT-4: 98028 08/17/2011 URINE CULTURE/ COLONY COUNT CPT-4: 56343 08/17/2011 URINALYSIS NONAUTO W/O SCOPE CPT-4: 71802 12/28/2010 URINE CULTURE/ COLONY COUNT CPT-4: 31959 12/28/2010 URINALYSIS NONAUTO W/O SCOPE CPT-4: 94331 11/09/2010 URINE CULTURE/ COLONY COUNT CPT-4: 61945 11/09/2010 URINALYSIS NONAUTO W/O SCOPE CPT-4: 59453 10/29/2010 URINE CULTURE/ COLONY COUNT CPT-4: 99678 10/29/2010 URINE CULTURE/ COLONY COUNT CPT-4: 64138 10/14/2010 URINALYSIS NONAUTO W/O SCOPE CPT-4: 71477 10/14/2010 Vital Signs Date Vital 07/17/2019 Blood [...] 1: 122/74 Code: 8480-6 BMI: 22.0 Code: 31749-5 Heart Rate 1: 72 bpm Height: 5'3" [...] 1: 126/72 Code: 8480-6 BMI: 22.7 Code: 03027-2 Heart Rate 1: 72 bpm Height: 5'3" [...] 1: 112/70 Code: 8480-6 BMI: 22.0 Code: 12755-7 Heart Rate 1: 80 bpm Height: 5'3" [...] 1: 122/64 Code: 8480-6 BMI: 21.4 Code: 31036-8 Heart Rate 1: 88 bpm Height: 5'3" Respiratory Rate: 22 bpm SpO2: 96% Tempera ture: 36.8 (C) / 98.2 (F) Weight: 121 lbs 06/22/2017 Blood Pressure 1: 124/78 Code: 8480-6 BMI: 21.6 Code: 68462-4 Heart Rate 1: 76 bpm Height: 5'3" Respiratory Rate: 20 bpm Temperature: 36 .8 (C) / 98.3 (F) Weight: 122 lbs 03/28/2017 Blood Pressure 1: 92/60 Code: 8480-6 BMI: 20.4 C ode: 75449-5 Heart Rate 1: 72 bpm Height: 5'3" Respiratory Rate: 20 bpm Temperature: 36 .9 (C) / 98.4 (F) Weight: 115 lbs 02/16/2017 Blood Pressure 1: 106/70 Code: 8480-6 BMI: 21.3 Code: 89719-1 Heart Rate 1: 82 bpm Height: 5'3" Respiratory Rate: 22 bpm SpO2: 97% Tempera ture: 36.1 (C) / 97.0 (F) Weight: 120 lbs 09/06/2016 Blood Pressure 1: 118/64 Code: 8480-6 BMI: 22.7 Code: 71140-5 Heart Rate 1: 78 bpm Height: 5'3" Respiratory Rate: 20 bpm SpO2: 98% Tempera ture: 36.2 (C) / 97.2 (F) Weight: 128 lbs 08/16/2016 Blood Pressure 1: 118/78 Code: 8480-6 BMI: 22.1 Code: 88825-5 Heart Rate 1: 78 bpm Height: 5'3" Respiratory Rate: 20 bpm SpO2: 97% Tempera ture: 36.2 (C) / 97.1 (F) Weight: 125 lbs 07/19/2016 Blood Pressure 1: 116/68 Code: 8480-6 BMI: 22.5 Code: 06993-0 Heart Rate 1: 76 bpm Height: 5'3" Respiratory Rate: 20 bpm Temperature: 36 .8 (C) / 98.2 (F) Weight: 127 lbs 07/06/2016 Blood Pressure 1: 106/70 Code: 8480-6 BMI: 22.5 Code: 42608-9 Heart Rate 1: 72 bpm Height: 5'3" Respiratory Rate: 20 bpm SpO2: 97% Tempera ture: 36.8 (C) / 98.2 (F) Weight: 127 lbs 06/15/2016 Blood Pressure 1: 136/76 Code: 8480-6 BMI: 22.9 Code: 05090-5 Heart Rate 1: 74 bpm Height: 5'3" Respiratory Rate: 18 bpm SpO2: 98% Tempera ture: 36.4 (C) / 97.6 (F) Weight: 129 lbs 04/09/2016 Blood Pressure 1: 124/78 Code: 8480-6 BMI: 23.0 Code: 45215-6 Heart Rate 1: 86 bpm Height: 5'3" Respiratory Rate: 20 bpm SpO2: 96% Tempera ture: 36.5 (C) / 97.7 (F) Weight: 130 lbs 03/17/2016 Blood Pressure 1: 116/74 Code: 8480-6 BMI: 23.4 Code: 99583-0 Heart Rate 1: 84 bpm Height: 5'3" Respiratory Rate: 20 bpm SpO2: 97% Tempera ture: 36.8 (C) / 98.3 (F) Weight: 132 lbs 11/13/2015 Blood Pressure 1: 124/78 Code: 8480-6 BMI: 23.4 Code: 46577-6 Heart Rate 1: 88 bpm Height: 5'3" Respiratory Rate: 24 bpm SpO2: 98% Tempera ture: 36.8 (C) / 98.2 (F) Weight: 132 lbs 06/12/2015 Blood Pressure 1: 126/78 Code: 8480-6 BMI: 23.6 Code: 10863-1 Heart Rate 1: 80 bpm Height: 5'3" Respiratory Rate: 20 bpm Temperature: 36 .9 (C) / 98.4 (F) Weight: 133 lbs 04/22/2015 Blood Pressure 1: 126/68 Code: 8480-6 BMI: 23.6 Code: 99089-5 Heart Rate 1: 80 bpm Height: 5'3" Respiratory Rate: 20 bpm Temperature: 36 .6 (C) / 97.9 (F) Weight: 133 lbs 03/24/2015 Blood Pressure 1: 116/66 Code: 8480-6 BMI: 22.9 Code: 73720-6 Heart Rate 1: 74 bpm Height: 5'3" Respiratory Rate: 20 bpm Temperature: 36 .4 (C) / 97.6 (F) Weight: 129 lbs 02/27/2015 Blood Pressure 1: 106/64 Code: 8480-6 BMI: 22.7 Code: 05280-8 Heart Rate 1: 74 bpm Height: 5'3" Respiratory Rate: 20 bpm Temperature: 36 .8 (C) / 98.2 (F) Weight: 128 lbs 06/13/2014 Blood Pressure 1: 104/66 Code: 8480-6 BMI: 22.7 Code: 95552-3 Heart Rate 1: 84 bpm Height: 5'3" Respiratory Rate: 20 bpm Temperature: 37 .0 (C) / 98.6 (F) Weight: 128 lbs 04/18/2014 Blood Pressure 1: 112/62 Code: 8480-6 BMI: 22.0 Code: 67176-3 Heart Rate 1: 82 bpm Height: 5'3" Respiratory Rate: 18 bpm Temperature: 36 .4 (C) / 97.6 (F) Weight: 124 lbs 12/05/2013 Blood Pressure 1: 106/70 Code: 8480-6 BMI: 23.7 Code: 19325-3 Heart Rate 1: 84 bpm Height: 5'3" [...] 1: 126/88 Code: 8480-6 BMI: 22.3 Code: 84807-1 Heart Rate 1: 96 bpm Height: 5'4" Respiratory Rate: 20 bpm Temperature: 37 .7 (C) / 99.9 (F) Weight: 130 lbs 11/29/2012 Blood Pressure 1: 122/76 Code: 8480-6 BMI: 23.0 Code: 28240-8 Heart Rate 1: 84 bpm Height: 5'4" Respiratory Rate: 20 bpm Temperature: 36 .9 (C) / 98.4 (F) Weight: 134 lbs 09/26/2012 Blood Pressure 1: 114/76 Code: 8480-6 BMI: 23.0 Code: 94282-0 Heart Rate 1: 84 bpm Height: 5'4" Respiratory Rate: 20 bpm Temperature: 37 .3 (C) / 99.1 (F) Weight: 134 lbs 07/11/2012 Blood Pressure 1: 126/78 Code: 8480-6 BMI: 23.7 Code: 13653-8 Heart Rate 1: 76 bpm Height: 5'4" Respiratory Rate: 20 bpm Temperature: 37 .1 (C) / 98.7 (F) Weight: 138 lbs 02/02/2012 Blood Pressure 1: 108/70 Code: 8480-6 BMI: 23.2 Code: 84287-7 Heart Rate 1: 88 bpm Height: 5'4" Respiratory Rate: 20 bpm Temperature: 36 .4 (C) / 97.6 (F) Weight: 135 lbs 08/17/2011 Blood Pressure 1: 108/70 Code: 8480-6 BMI: 23.2 Code: 81696-2 Heart Rate 1: 72 bpm Height: 5'4" Respiratory Rate: 20 bpm Temperature: 36 .8 (C) / 98.2 (F) Weight: 135 lbs 10/14/2010 Blood Pressure 1: 120/72 Code: 8480-6 BMI: 23.4 Code: 69587-9 Heart Rate 1: 78 bpm Height: 5'3" [...] dysuria. Encounters Encounter Performer Location Codes Date ([id number]) OFFICE/OUTPATIENT VISIT EST Diagnosis: Urinary tract infection, site not specified[ICD10: N39.0] Diagnosis: Dysuria[ICD10: R30.0] Vandana CARROLL DO [facility] CPT-4: 11767 07/17/2019 ([id number]) OFFICE/OUTPATIENT VISIT EST Diagnosis: Allergic dermatitis[ICD10: L23.9] Alexandra CARROLL DO [facility] CPT-4: 83405 06/26/2019 ([id number]) OFFICE/OUTPATIENT VISIT EST Diagnosis: Contact dermatitis due to plant[ICD10: L25.5] Diagnosis: Cellulitis of left arm[ICD10: L03.114] Vandana Amritasasha CARROLL [facility] CPT-4: 63361 05/14/2019 ([id number]) OFFICE/OUTPATIENT VISIT EST Diagnosis: Ventral hernia[ICD10: K43.9] Diagnosis: Incisional hernia[ICD10: K43.2] Alexandra CARROLL DO [facility] CPT-4: 20050 04/10/2019 ([id number]) OFFICE/OUTPATIENT VISIT EST Diagnosis: Insomnia[ICD10: G47.00] Diagnosis: Thrombocytosis[ICD10: D47.3] Alexandra CARROLL [facility] CPT-4: 13976 02/14/2019 ([id number]) OFFICE/OUTPATIENT VISIT EST Diagnosis: Small bowel obstruction[ICD10: K56.609] Diagnosis: FLU VACCINE[ICD10: Z23] Diagnosis: PNEUMOCOCCAL VACCINE[ICD10: Z23] Diagnosis: Onychomycosis[ICD10: B35.1] Alexandra KUNZ [facility] CPT-4: 66283 01/16/2019 ([id number]) OFFICE/OUTPATIENT VISIT EST Diagnosis: Diarrhea, unspecified[ICD10: R19.7] Diagnosis: Radiculopathy, lumbosacral region[ICD10: M54.17] Alexandra CARROLL [facility] CPT-4: 22473 09/18/2018 OFFICE/OUTPATIENT VISIT EST Diagnosis: Other intervertebral disc degeneration, lumbar region[ICD10: M51.36] Diagnosis: Sacroiliitis, not elsewhere classified[ICD10: M46.1] Diagnosis: Obstructive sleep apnea (adult) (pediatric)[ICD10: G47.33] [facility] C[facility]: 34207 08/10/2018 ([id number]) OFFICE/OUTPATIENT VISIT EST Diagnosis: Fracture of unspecified part of left clavicle, subsequent encounter for fracture with routine healing[ICD10: S42.002D] Diagnosis: Cervicalgia[ICD10: M54.2] Diagnosis: Radiculopathy, lumbosacral region[ICD10: M54.17] [facility] CPT-4: 71216 03/27/2018 ([id number]) OFFICE/OUTPATIENT VISIT EST Diagnosis: Fracture of unspecified part of left clavicle, subsequent encounter for fracture with routine healing[ICD10: S42.002D] Diagnosis: Other intervertebral disc degeneration, lumbar region[ICD10: M51.36] Diagnosis: Unspecified fracture of first thoracic vertebra, subsequent encounter for fracture with routine healing[ICD10: S22.019D] Diagnosis: Unspecified fracture of second thoracic vertebra, subsequent encounter for fracture with routine healing[ICD10: S22.029D] [facility] CPT-4: 45614 02/23/2018 ([id number]) OFFICE/OUTPATIENT VISIT EST Diagnosis: Fracture of unspecified part of left clavicle, subsequent encounter for fracture with routine healing[ICD10: S42.002D] Diagnosis: Unspecified fracture of first thoracic vertebra, subsequent encounter for fracture with routine healing[ICD10: S22.019D] Diagnosis: Unspecified fracture of second thoracic vertebra, subsequent encounter for fracture with routine healing[ICD10: S22.029D] Alexandra CARROLL DO [facility] CPT-4: 26335 01/24/2018 ([id number]) OFFICE/OUTPATIENT VISIT EST Diagnosis: Migraine, unspecified, not intractable, without status migrainosus[ICD10: G43.909] Alexandra CARROLL DO [facility] CPT - 4: 97277 01/17/2018 ([id number]) OFFICE/OUTPATIENT VISIT EST Diagnosis: Hematuria, unspecified[ICD10: R31.9] Diagnosis: Other intervertebral disc degeneration, lumbar region[ICD10: M51.36] Diagnosis: Retention of urine, unspecified[ICD10: R33.9] Alexandra CARROLL [facility] CPT-4: 00913 12/29/2017 OFFICE/OUTPATIENT VISIT EST Diagnosis: Fracture of [...] Diagnosis: Low back pain[ICD10: M54.5] Alexandra KUNZ [facility] CPT-4: 88315 12/06/2017 ([id number]) OFFICE/OUTPATIENT VISIT EST Diagnosis: Cellulitis of right upper limb[ICD10: L03.113] Diagnosis: Allergy status to other antibiotic agents status[ICD10: Z88.1] Vandana CARROLL [facility] CPT-4: 39593 12/01/2017 ([id number]) OFFICE/OUTPATIENT VISIT EST Diagnosis: Cellulitis of right upper limb[ICD10: L03.113] Diagnosis: Allergy status to other antibiotic agents status[ICD10: Z88.1] Vandana CARROLL [facility] CPT-4: 47195 11/30/2017 ([id number]) OFFICE/OUTPATIENT VISIT EST Diagnosis: Cellulitis of right upper limb[ICD10: L03.113] Vandana CARROLL DO [facility] CPT-4: 88724 11/29/2017 ([id number]) OFFICE/OUTPATIENT VISIT EST Diagnosis: Cellulitis of right upper limb[ICD10: L03.113] Vandana CARROLL DO [facility] CPT-4: 43466 11/28/2017 ([id number]) OFFICE/OUTPATIENT VISIT EST Diagnosis: Other intervertebral disc degeneration, lumbar region[ICD10: M51.36] Diagnosis: Other retention of urine[ICD10: R33.8] Diagnosis: Primary insomnia[ICD10: F51.01] Diagnosis: Other spondylosis, site unspecified[ICD10: M47.899] Alexandra CARROLL DO [facility] CPT-4: 82271 11/17/2017 ([id number]) OFFICE/OUTPATIENT VISIT EST Diagnosis: Radiculopathy, lumbosacral region[ICD10: M54.17] Diagnosis: Other retention of urine[ICD10: R33.8] Diagnosis: Urinary tract infection, site not specified[ICD10: N39.0] Vandana CARROLL DO [facility] CPT-4: 48043 10/10/2017 ([id number]) PREV VISIT EST AGE 40-64 Diagnosis: Encounter for general adult medical examination without abnormal findings[ICD10: Z00.00] Diagnosis: Other intervertebral disc degeneration, lumbar region[ICD10: M51.36] Diagnosis: Hypothyroidism, unspecified[ICD10: E03.9] Diagnosis: Mixed hyperlipidemia[ICD10: E78.2] Alexandra CARROLL DO [facility] CPT-4: 06036 06/22/2017 ([id number]) OFFICE/OUTPATIENT VISIT EST Diagnosis: URI, ACUTE[ICD10: J06.9] Alexandra ROMAN [facility] CPT-4: 63322 03/28/2017 OFFICE/OUTPATIENT VISIT EST Diagnosis: Acute sinusitis, unspecified[ICD10: J01.90] Vandana CARROLL DO [facility] CPT-4: 92982 02/16/2017 ([id number]) OFFICE/OUTPATIENT VISIT EST Diagnosis: Migraine, unspecified, not intractable, without status migrainosus[ICD10: G43.909] Alexandra CARROLL [facility] CPT - 4: 93297 11/02/2016 ([id number]) OFFICE/OUTPATIENT VISIT EST Diagnosis: Pain in thoracic spine[ICD10: M54.6] Diagnosis: Chondrocostal junction syndrome [Tietze][ICD10: M94.0] Alexandra CARROLL [facility] CPT-4: 29903 09/06/2016 OFFICE/OUTPATIENT VISIT EST Diagnosis: Acute sinusitis, unspecified[ICD10: J01.90] Vidya Manuel ALEXANDRA CARROLL [facility] CPT-4: 50722 08/16/2016 ([id number]) OFFICE/OUTPATIENT VISIT EST Diagnosis: Primary insomnia[ICD10: F51.01] Diagnosis: Cramp and spasm[ICD10: R25.2] Diagnosis: Major depressive disorder, single episode, mild[ICD10: F32.0] Alexandra CARROLL [facility] CPT-4: 17375 07/19/2016 ([id number]) OFFICE/OUTPATIENT VISIT EST Diagnosis: Obstructive sleep apnea (adult) (pediatric)[ICD10: G47.33] Diagnosis: Other fatigue[ICD10: R53.83] Diagnosis: Allergic rhinitis due to pollen[ICD10: J30.1] Diagnosis: Headache[ICD10: R51] Alexandra CARROLL [facility] CPT-4: 55117 07/06/2016 ([id number]) OFFICE/OUTPATIENT VISIT EST Diagnosis: Acute recurrent sinusitis, unspecified[ICD10: J01.91] Diagnosis: Allergic rhinitis due to pollen[ICD10: J30.1] Alexandra CARROLL [facility] CPT-4: 38157 06/15/2016 ([id number]) OFFICE/OUTPATIENT VISIT EST Diagnosis: Migraine, unspecified, not intractable, without status migrainosus[ICD10: G43.909] Diagnosis: Allergic rhinitis, unspecified[ICD10: J30.9] Nae CARROLL [facility] CPT-4: 06457 04/09/2016 ([id number]) OFFICE/OUTPATIENT VISIT EST Diagnosis: Hypothyroidism, unspecified[ICD10: E03.9] Diagnosis: Other fatigue[ICD10: R53.83] Diagnosis: Mixed hyperlipidemia[ICD10: E78.2] Diagnosis: Major depressive disorder, single episode, mild[ICD10: F32.0] Alexandra CARROLL DO [facility] CPT-4: 31372 03/17/2016 ([id number]) OFFICE/OUTPATIENT VISIT EST Diagnosis: Insomnia, unspecified[ICD10: G47.00] Diagnosis: Encounter for therapeutic drug level monitoring[ICD10: Z51.81] Nae CARROLL [facility] CPT-4: 35806 11/13/2015 ([id number]) OFFICE/OUTPATIENT VISIT EST Diagnosis: Hematuria, unspecified[ICD10: R31.9] Alexandra CARROLL [facility] CPT-4: 67209 05/05/2015 ([id number]) OFFICE/OUTPATIENT VISIT EST Diagnosis: Other intervertebral disc degeneration, lumbar region[ICD10: M51.36] Diagnosis: Radiculopathy, lumbosacral region[ICD10: M54.17] Alexandra CARROLL [facility] CPT-4: 86763 04/22/2015 ([id number]) OFFICE/OUTPATIENT VISIT EST Diagnosis: Low back pain[ICD10: M54.5] Diagnosis: Recurrent and persistent hematuria with unspecified morphologic changes[ICD10: N02.9] Alexandra CARROLL DO [facility] CPT-4: 83657 03/24/2015 ([id number]) OFFICE/OUTPATIENT VISIT EST Diagnosis: Acute sinusitis, unspecified[ICD10: J01.90] Diagnosis: Headache[ICD10: R51] Diagnosis: Retention of urine, unspecified[ICD10: R33.9] Diagnosis: Hypothyroidism, unspecified[ICD10: E03.9] Alexandra CARROLL [facility] CPT-4: 56562 02/27/2015 ([id number]) PREV VISIT EST AGE 40-64 Diagnosis: ROUTINE MEDICAL EXAM[ICD9: V70.0] Diagnosis: HYPOTHYROIDISM[ICD9: 244.9] Diagnosis: HYPERLIPIDEMIA NEC/NOS[ICD9: 272.4] Alexandra SHAFFERUnique ADALID Ty JACOBONDVIOLETTA SALGUERO [facility] CPT-4: 88123 06/13/2014 ([id number]) OFFICE/OUTPATIENT VISIT EST Diagnosis: CEPHALGIA[ICD9: 784.0] Diagnosis: Nausea[ICD9: 787.02] Shalinisa Romeo SHAFFERLINE Ty JACOBONDVIOLETTA [facility] CPT-4: 78209 04/18/2014 ([id number]) OFFICE/OUTPATIENT VISIT EST Diagnosis: INSOMNIA NOS[ICD9: 780.52] Diagnosis: Complicated grieving[ICD9: 309.0] Alexandradanielle Louise SAri JACOBONDVIOLETTA [facility] CPT-4: 30468 12/05/2013 ([id number]) OFFICE/OUTPATIENT VISIT EST Diagnosis: Muscle twitch[ICD9: 781.0] Diagnosis: ALLERGIC RHINITIS[ICD9: 477.9] Alexandra Danelawandavioletta SHAFFERALEXANDRA Macy CARROLL [facility] CPT-4: 39056 06/05/2013 ([id number]) OFFICE/OUTPATIENT VISIT EST Diagnosis: DEPRESSIVE DISORDER NEC[ICD9: 311] Alexandra QUINTERO S. DANENDER [facility] CPT-4: 26554 05/22/2013 OFFICE/OUTPATIENT VISIT EST Diagnosis: Shingles[ICD9: 053.9] Alexandra Danejames FORDE MacyAri DANENDVIOLETTA [facility] CPT-4: 82729 04/05/2013 ([id number]) OFFICE/OUTPATIENT VISIT EST Diagnosis: DEPRESSIVE DISORDER NEC[ICD9: 311] Alexandra QUINTERO S. DANENDER [facility] CPT-4: 48693 03/26/2013 ([id number]) OFFICE/OUTPATIENT VISIT EST Diagnosis: Complicated grieving[ICD9: 309.0] Alexandra Burlesonvioletta PAM Louise Ty JACOBONDER [facility] CPT-4: 55419 03/06/2013 ([id number]) OFFICE/OUTPATIENT VISIT EST Diagnosis: CEPHALGIA, TENSION[ICD9: 307.81] Diagnosis: MIGRAINE NOS/NOT INTRCBL[ICD9: 346.90] Diagnosis: Cervicalgia[ICD9: 723.1] Alexandra PLATT IZABELLA [facility] CPT-4: 51131 11/29/2012 ([id number]) OFFICE/OUTPATIENT VISIT EST Diagnosis: Jaw pain[ICD9: 784.92] Diagnosis: Shoulder pain[ICD9: 719.41] Diagnosis: Family history of premature coronary artery disease[ICD9: V17.3] Alexandra CARROLL [facility] CPT-4: 88265 09/26/2012 ([id number]) OFFICE/OUTPATIENT VISIT EST Diagnosis: ABDOMINAL PAIN[ICD9: 789.00] Diagnosis: Constipation[ICD9: 564.00] Diagnosis: Hematuria[ICD9: 599.70] Alexandra [facility] CPT-4: 33761 07/11/2012 ([id number]) OFFICE/OUTPATIENT VISIT EST Diagnosis: ANEMIA NOS[ICD9: 285.9] Alexandra JACOBOND [facility] CPT-4: 35361 02/17/2012 ([id number]) PREV VISIT EST AGE 40-64 Diagnosis: ROUTINE MEDICAL EXAM[ICD9: V70.0] Diagnosis: HYPOTHYROIDISM[ICD9: 244.9] Diagnosis: HYPERLIPIDEMIA NEC/NOS[ICD9: 272.4] Diagnosis: Obstructive sleep apnea[ICD9: 327.23] Alexandra LEWNE Ty CARROLL [facility] CPT-4: 41170 02/02/2012 ([id number]) OFFICE/OUTPATIENT VISIT EST Diagnosis: URINARY TRACT INFECTION[ICD9: 599.0] Alexandra JACOBONDVIOLETTA [facility] CPT-4: 91621 08/27/2011 ([id number]) OFFICE/OUTPATIENT VISIT EST Diagnosis: URINARY TRACT INFECTION[ICD9: 599.0] Diagnosis: ACUTE CYSTITIS[ICD9: 595.0] Alexandra Crawford O [facility] CPT-4: 80459 08/17/2011 OFFICE/OUTPATIENT VISIT EST Diagnosis: URINARY TRACT INFECTION[ICD9: 599.0] Steph LOZANO Ty [facility] CPT-4: 58461 10/14/2010 Plan of Care Planned Activity Notes [...] N39.0 07/17/2019 Patient Education: Cipro- [employer] C[employer]on [id number] https://www.Userstorylab/sampleFrontleaf/resources/getResource/61/[email or web address]-kv f7-[email or web address].pdf Completed 07/17/2019 Visit Diagnosis Plan: Allergic dermatitis Discussion: Could be numerous things that were given during surgery Continue benadryl Add Prednisone Notify if persists/worsens ICD-9 : 692.9 ICD-10 : L23.9 06/26/2019 Appointment: Alexandra Carroll WPtel: [phone] [facility] ACUTE ILLNESS 06/26/2019 Patient Education: prednisone- [employer] Coupon [id number] https://www.Userstorylab/GridMarkets/resources/getResource/61/22978367-t9am-322c-w0 Completed 06/26/2019 Visit Diagnosis Plan: Cellulitis of [...] injection a week pre-op and 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 ICD-9 : 692.6 ICD-10 : L25.5 05/14/2019 Appointment: Vandana Crowe [address] [place], [place] [id number] 05/14/2019 Patient Education: Levaquin- [employer] Coupon [id number] [id number] https://www.GridMarkets.com/samplemd/resources/getResource/61/7dm35q50-p225-6202-65 Completed 05/14/2019 Visit Diagnosis Plan: Ventral hernia Discussion: See s urgery for repair Discussed signs of incarceration or strangulation then is to report to ER ICD-9 : 553.20 ICD-10 : K43.9 04/10/2019 Appointment: Alexandra Carroll WPtel: [address] [place], [place] [phone] [place] left second message 04/10/19 at 10:20 ACUTE ILLNE SS 04/10/2019 Care Plan: Referral Order SNOMED-CT : 30 [id number] Pending 04/10/2019 Visit Diagnosis Plan: Insomnia Discussion: [...] : D47.3 02/14/2019 Appointment: Alexandra Carroll WPtel: [address] [place], [place] [phone] [place] FOLLOW UP 02/14/2019 Appointment: Alexandra Carroll WPtel: [address] [place], [place] [id number] [place] CANCELED 02/12/2019 Visit Diagnosis Plan: Onychomycosis Discussion: Send n ail for culture ICD-9 : 110.1 ICD-10 : B35.1 01/16/2019 Visit Diagnosis Plan: Small bowel obstruction Discussi on: S/P surgery in September with postop complications of wound dehiscence ICD-9 : 560.9 ICD-10 : K56.609 01/16/2019 Appointment: Alexandra Carroll WPtel: [address] [place], [place] [phone] [place] MEDICATION REVIEW 01/16/2019 Appointment: Alexandra Carroll WPtel: [address] [place], [place] [phone] [place] CANCELED 12/12/2018 Visit Diagnosis Plan: Diarrhea, unspecified Discussion : Due for updated colonoscopy ICD-9 : 787.91 ICD-10 : R19.7 09/18/2018 Visit Diagnosis Plan: Radiculopathy, lumbosacral regio n Discussion: Had left SI joint injection by Dr. Baig about 2 weeks ago and has fwup with him ICD-9 : 724.4 ICD-10 : M54.17 09/18/2018 Appointment: Alexandra Carroll WPtel: [address] [place], [place] [phone] [place] PATIENT CONSULT 15 09/18/2018 Care Plan: Referral Order SNOMED-CT : 30 [id number] Pending 09/18/2018 Visit Diagnosis Plan: Other intervertebral [...] : M46.1 08/10/2018 Appointment: Alexandra Carroll WPtel: [address] [place], [place] [phone] [place] MEDICATION REVIEW 08/10/2018 Care Plan: Referral Order SNOMED-CT : 30 [id number] Pending 08/10/2018 Appointment: Alexandra Carroll WPtel: [address] [place], [place] [phone] [place] CANCELED 04/17/2018 Visit Diagnosis Plan: Fracture [...] : M54.2 03/27/2018 Appointment: Alexandra Carroll WPtel: [address] [place], [place] [phone] US FOLLOW UP 03/27/2018 Visit Diagnosis Plan: [...] : S42.002D 02/23/2018 Appointment: Alexandra Carroll WPtel: [address] [place], [place] [phone] US FOLLOW UP 02/23/2018 Patient Education: gabapentin- [employer] Coupon [id number] https://www.[employer]Markets.Life is Tech/samplemd/resources/getResource/61/5e59q333-94b6-413c-b5 Completed 02/23/2018 Visit Diagnosis Plan: Fracture of unspec ified part of left clavicle, subsequent encounter for fracture with routine healing Discussion: Hold on PT and do home stretches Trial of gabapentin Recheck 4 weeks ICD-9 : V54.11 ICD-10 : S42.002D 01/24/2018 Appointment: Alexandra Carroll WPtel: [address] [place], [place] [phone] [place] FOLLOW UP 01/24/2018 Visit Diagnosis Plan: Migraine, unspecif ied, not intractable, without status migrainosus Discussion: Toradol and phenergan given ICD-9 : 346.90 ICD-10 : G43.909 01/17/2018 Appointment: Alexandra Carroll WPtel: [address] [place], [place] [id number] AC[facility] 01/17/2018 Visit Diagnosis Plan: Retention [...] : R31.9 12/29/2017 Appointment: Alexandra Carroll WPtel: [address] [place] [address] ACUTE ILLNESS 12/29/2017 Care Plan: US EXAM PELVIC COMPLETE LOINC : 44509-2 Pending 12/29/2017 Care Plan: ECHO EXAM OF ABDOMEN LOINC : 13685-1 Pending 12/29/2017 Care Plan: Referral Order SNOMED-CT : 30 [id number] Pending 12/29/2017 Visit Diagnosis Plan: Fracture of unspec ified part of left clavicle, subsequent encounter for fracture with routine healing Discussion: Start PT in another 7-14 days Off work for the rest of this week then may return to part-time work on 12/12/17 Fwup in 4 weeks ICD-9 : V54.11 ICD-10 : S42.002D 12/06/2017 Appointment: Alexandra Carroll WPtel: [address] [place], [place] [phone] [place] FOLLOW UP 12/06/2017 Patient Education: Patient [...] ICD-10 : Z88.1 12/01/2017 Appointment: Vandana Crowe [address] [place], [place] [phone] FOLLOW UP 12/01/2017 Patient Education: Patient Medication [...] ICD-10 : Z88.1 11/30/2017 Appointment: Vandana Crowe [address] [place], [place] [id number] [id number] 11/30/2017 Patient Education: Patient Medication Summary [...] : L03.113 11/29/2017 [facility]ment[id number] [facility] 11/29/2017 Patient Education: Patient [...] ICD-10 : L03.113 11/28/2017 Appointment: Vandana Crowe [address] [place], [place] [id number] ACUTE ILLNESS 11/28/2017 Patient Education: Patient Medication [...] Appointment: Alexandra Carroll WPtel: [phone] [id number] [place] MEDICATION REVIEW 11/17/2017 Patient Education: Patient Medication Summary Completed 11/17/2017 Care Plan: Referral Order SNOMED-CT : [id number] Pending 11/17/2017 Patient Education: Patient Medication Summary Completed 10/12/2017 Care Plan: MRI LUMBAR SPINE W/O DYE LOIN C : 57562-1 Pending 10/12/2017 Care Plan: X-RAY EXAM L-S SPINE 2/3 VWS LOINC : 56279-7 Pending 10/11/2017 Visit Diagnosis Plan: Other retention [...] medrol pack to start tomorrow. [facility] with inversion table. instructed patient to go to ED immediately if she develops any incontinence with bowel or bladder. patient verbalized understanding. if no improvement, will need updated MRI and referral to surgeon. ICD-9 : 724.4 ICD-10 : M54.17 10/10/2017 Appointment: Vandana Crowe [address] [place], [place] [phone] ACUTE ILLNESS 10/10/2017 Patient Education: Patient Medication Summary Completed 10/10/2017 Appointment: Vandana Crowe [address] [place], [place] [phone] ACUTE ILLNESS 08/01/2017 Visit Diagnosis Plan: Other intervertebral disc degene ration, lumbar region Discussion: Core strengtheing and inversion table and if worsening will need updated MRI ICD-9 : 722.52 ICD-10 : M51.36 06/22/2017 Visit Diagnosis Plan: [facility] examination without abnormal findings Discussion: Lab dis ussed Follow Up: 6 months ICD-9 : V70.0 ICD-10 : Z00.00 06/22/2017 Appointment: Alexandra Carroll WPtel: [phone] [facility] Annual Well Visit 06/22/2017 Patient Education: Patient Medication Summary Completed 06/22/2017 Patient Education: Patient Medication Summary Completed 06/16/2017 Care Plan: [place] : [address]-8 Pending 06/16/2017 Care Plan: ASSAY THYROID STIM HORMONE Pen ding 06/16/2017 Care Plan: ASSAY OF FREE THYROXINE Pendin g 06/16/2017 Care Plan: LIPID PANEL LOINC : [id number] Pending 06/16/2017 Care Plan: CBC Pending 06/16/2017 [...] : J06.9 03/28/2017 Appointment: Alexandra Carroll WPtel: [facility]2 [facility] ACUTE ILLNESS 03/28/2017 Patient Education: Patient Medication Summary Completed 03/28/2017 Visit Diagnosis Plan: Acute sinusitis, unspecified Dis cussion: cefdinir and medrol dose pack prescribed to be taken as directed. tylenol/ibuprofen as needed. educated on importance of taking singulair or zyrtec daily to prevent worsening symptoms. keep hydrated. ICD-9 : 461.9 ICD-10 : J01.90 02/16/2017 Appointment: Vandana Crowe [address] [place], [place] [address] ACUTE ILLNESS 02/16/2017 Patient Education: Patient Medication Summary Completed 02/16/2017 Appointment: Alexandra Carroll WPtel: [address] [place] [address] [place] INJECTION 11/02/2016 Patient Education: Patient Medication Summary Completed 11/02/2016 Visit Diagnosis Plan: Pain in thoracic spine Discussio n: Increase flexeril to 10mg po BID Add Mobic 15mg po daily Towel stretch May see chiropractor to adjust ribs Notify if persists or worsening ICD-9 : 724.1 ICD-10 : M54.6 09/06/2016 Appointment: Alexandra Carroll WPtel: [address] [place] [address] ACUTE ILLNESS 09/06/2016 Patient Education: Patient Medication Summary Completed 09/06/2016 Visit Plan: Due to hx, ERx Cefdinir and Prednisone (discussed risks for both) Given bottle for nasal saline rinses Tylenol/Ibuprofen prn pain/fever Fluids/rest Discussed s/s of worsening, RTC if no improvement 08/16/2016 Appointment: Vidya Manuel WPtel: [address] [place] [address] ACUTE ILLNESS 08/16/2016 Patient Education: Patient Medication [...] : F32.0 07/19/2016 Appointment: Alexandra Carroll WPtel: [facility] [place] 07/15 confirmed`sl FOLLOW UP 07/19/2016 Patient Education: [...] : J30.1 07/06/2016 Appointment: Alexandra Carroll WPtel: [facility]0 [facility]6[address] 07/05 confirmed-sp FOLLOW UP 07/06/2016 Patient Education: [...] : J01.91 06/15/2016 Appointment: Alexandra Carroll WPtel: [facility] [place] 06/14 lm ~sl ACUTE ILLNESS 06/15/2016 Patient Education: Patient Medication Summary Completed 06/15/2016 Visit Diagnosis Plan: Migraine, unspecif ied, not intractable, without status migrainosus Discussion: Injection as above Drink ple nty of water No driving x 6 hours Rest No OTC nsaids today Follow up PRN Refill called of claritin-d ICD-9 : 346.90 ICD-10 : G43.909 04/09/2016 Appointment: [facility] [place] [place] 04/09/2016 Patient Education: Patient Medication [...] : R53.83 03/17/2016 Appointment: Alexandra Carroll WPtel: [address] [place], [place] [phone] 03/16 nvm~sl 03/17 confirmed`sl FOLLOW UP 0 03/17/2016 Patient Education: Patient Medication Summary Completed 03/17/2016 Appointment: Alexandra Carroll WPtel: [address] [place], [place] [phone] [place] 03/11 lm~sl 03/15lm `sl 03/15 confirmed`sl [...] same robert. If working well, continue the [id number] office visits. Call if not working well, and will restart xanax at for sleep. 11/13/2015 Appointment: [facility]ckay [facility] [place] 11/11 confirmed~sl FOLLOW UP 11/13/2015 Patient Education: Patient Medication Summary Completed 11/13/2015 Appointment: Alexandra Carroll WPtel: [address] [place], [place] [phone] Suture Removal 06/23/2015 Patient Education: Patient Medication Summary Completed 06/23/2015 Visit Plan: Removal of lesion above usin g 3-0 punch biopsy Return in 10 days for suture removal 06/12/2015 Appointment: Alexandra Carroll WPtel: [address] [place], [place] [phone] 06/10 lm ~sl ACUTE ILLNESS 06/12/2015 Patient Education: Patient Medication Summary Completed 06/12/2015 Referral: [facility] [place] [address] [place] Schedule patient around lunch time and 3 weeks from 04/22/2015 ~ Spoke with Kiesha at Dr. Sandoval Office and 04/24/15 and scheduled the patient ~sl 04/24/15 Patient is informed~ 06/03 Patient canceled the appointment ~ Patient did not show up for scheduled appointment-sp Appoint ment Requested 05/21/2015 Appointment: Alexandra Carroll WPtel: [address] [place], [place] [id number] UA 05/05/2015 Patient Education: Patient Medication Summary Completed 05/05/2015 Visit Plan: Starts PT today Schedule wit h Dr. Garcia for epidural CT abdomen/pelvis results discussed Sees COUNSELOR/ART THERAPIST in April and will get checked then 04/22/2015 Appointment: Alexandra Carroll WPtel: [address] [place], [place] [phone] 04/21 confirmed~lb ACUTE ILLNESS 04/22/2015 Patient Education: Patient Medication Summary Completed 04/22/2015 Referral: Lincoln Hernandez WPtel: [address] [place] [address] Referral Initiated 04/10/2015 Patient Education: Patient Medication Summary Completed 04/09/2015 Visit Plan: Start with lumosacral spine x-ray--will likely need MRI of L/S spine x-ray Needs urology--has had to have bladder stretched in past Tivorbex 03/24/2015 Appointment: Alexandra Carroll WPtel: [facility] [place] 03/21/15 appt confirmed cn ACUTE ILLNESS 03/24 Patient Education: Patient Medication Summary Completed 03/24/2015 Visit Plan: Saline nasal flushes prn. Ty lenol/Motrin prn headache. Notify if persists/symptoms worsening. Cefuroxime to cover both sinuses and UTI Culture urine Check lab 02/27/2015 Appointment: Alexandra Carroll WPtel: [address] [place], [place] [phone] 02/26/15 vm to confirm and need new insu meri on file is inactive cn....02/27/15 appt confirmed cn ACUTE ILLNESS 015 Patient Education: Patient Medication Summary Completed 02/27/2015 Visit Plan: Lab discussed Stop simvastat in Check lipids in 6mos Continue all other meds at current dose Had Pap and Mammo 3 weeks ago 06/13/2014 Appointment: Alexandra Carroll WPtel: [address] [place], [place] [phone] Annual Well Visit 06/13/2014 Patient Education: Patient Medication Summary Completed 06/13/2014 Appointment: Shalini Walters WPtel: [address] [place], [place] [phone] ACUTE ILLNESS 04/18/2014 Patient Education: Patient Medication Summary Completed 04/18/2014 Visit Plan: Check lab in May then fwup Can try decreasing xanax to 1mg q HS with melatonin 5-10mg q HS 12/05/2013 Appointment: Alexandra Carroll WPtel: [address] [place], [place] [phone] 12/04 FOLLOW UP 12/05/2013 Patient Education: Patient Medication Summary Completed 12/05/2013 Appointment: Alexandra Carroll WPtel: [address] [place], [place] [phone] FOLLOW UP 06/05/2013 Patient Education: Patient Medication Summary Completed 06/05/2013 Appointment: Alexandra Carroll WPtel: [address] [place] [address] FOLLOW UP 05/22/2013 Patient Education: Patient Medication Summary Completed 05/22/2013 Visit Plan: Zovirax for 2wks Notify if p ain worsens or if persists 04/05/2013 Appointment: Alexandra Carroll WPtel: [address] [place] [address] ACUTE ILLNESS 04/05/2013 Patient Education: Patient Medication Summary Completed 04/05/2013 Visit Plan: Keep Wellbutrin at current d ose Pt did see film historian for counseling 03/26/2013 Appointment: Alexandra Carroll WPtel: [address] [place] [address] ACUTE ILLNESS 03/26/2013 Patient Education: Patient Medication Summary Completed 03/26/2013 Visit Plan: Continue citalopram at curre nt dose Increase xanax to 1-2mg q HS for sleep Add Wellbutrin Sr 100mg q AM Start Counseling 03/06/2013 Appointment: Alexandra Carroll WPtel: [address] [place] [address] ACUTE ILLNESS 03/06/2013 Patient Education: Patient Medication Summary Completed 03/06/2013 Appointment: Alexandra Carroll WPtel: [address] [place] [address] ACUTE ILLNESS 11/29/2012 Patient Education: Patient Medication Summary Completed 11/29/2012 Appointment: Alexandra Carroll WPtel: [address] [place] [address] ACUTE ILLNESS 09/26/2012 Patient Education: Patient Medication Summary Completed 09/26/2012 Appointment: Alexandra Carroll WPtel: [address] [place] [address] ACUTE ILLNESS 07/11/2012 Patient Education: Patient Medication Summary Completed 07/11/2012 Appointment: Alexandra Carroll WPtel: [address] [place], [place] [phone] [place] LAB 02/17/2012 Patient Education: Patient Medication Summary Completed 02/17/2012 Visit Plan: Check fasting lab Start annie y ca with Vit D Cont CPAP Mammo up-to-date Hemoccult card given 02/02/2012 Appointment: Alexandra Carroll WPtel: [address] [place] [address] PHYSICAL 02/02/2012 Patient Education: Patient Medication Summary Completed 02/02/2012 Appointment: Alexandra Carroll WPtel: [address] [place] [address] UA 08/27/2011 Patient Education: Patient Medication Summary Completed 08/27/2011 Visit Plan: Levaquin and Diflucan for 1w k Then cipro QOD for prophylaxis 08/17/2011 Appointment: Alexandra Carroll WPtel: [address] [place] [address] FOLLOW UP 08/17/2011 Patient Education: Patient Medication Summary Completed 08/17/2011 Appointment: Alexandra Carroll WPtel: [address] [place] [address] UA 12/28/2010 Patient Education: Patient Medication Summary Completed 12/28/2010 Appointment: Alexandra Carroll WPtel: [address] [place] [address] 11/09/2010 Patient Education: Patient Medication Summary Completed 11/09/2010 Appointment: Alexandra Carroll WPtel: [address] [place] [address] 10/29/2010 Patient Education: Patient Medication Summary Completed 10/29/2010 Appointment: Steph Bowen WPtel: [address] [place] [address] ACUTE ILLNESS 10/14/2010 Patient Education: Patient Medication Summary Completed 10/14/2010 Referral: Florian Baig WPtel: [facility] [address], [facility] 1 [id number] [place] Referral Initiated Referral: Paulo Albert WPtel: [phone] [id number] [place] Referral Appointment Requested Referral: Luis Enrique Jasso WPtel: [facility] [address], [facility] 1 [id number] [place] Referral Appointment Requested Referral: Florian Baig WPtel: [facility] [address] 1 [id number] [place] Referral Appointment Requested Referral: Caleb Glaser WPtel: [address] [id number] [place] Referral Appointment Requested Referral: Florian Baig WPtel: [facility] [address], [facility] 1 [id number] [place] Referral Initiated Referral: Florian Baig WPtel: [facility] [address], [facility] 1 [id number] [place] Referral Appointment Requested Instructions Comment . [...] same robert. If working well, continue the [id number] office visits. Call if not working well, and will restart xanax at HS for sleep. . Removal of lesion above using 3-0 punc h biopsy Return in 10 days for suture removal . Starts PT today Schedule with Dr. Garcia for epidural CT abdomen/pelvis results discussed Sees COUNSELOR/ART THERAPIST in April and will get checked then [...]
--- OUTSIDE RECORDS SUMMARY | 2019-09-02 00:18 | XMS REPORT | CCD ---
Author Author Ilda Bowen APRN Organization 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 Transforming Name Role Phone Alexandra Carroll D.O., PP Unavailable CCM Unavailable Summary Purpose Interface Exchange Insurance Providers Payer name Policy type / Coverage type Covered republican ID Effective Begin Date Effective End Date WPS MEDICARE PART B [place] Part B [id number] 2019 Unknown [employer] [place] Medicare Part B [id number] Unknown Family History Family History data not found Social History Social History Element Codes Description Effective Dates Tobacco history SNOMED CT: 036487965 Nonsmoker 10/14/2010 Allergies, Adverse Reactions, Alerts Substance Reaction Codes Entered Date Inactivated Date Status MORPHINE SULFATE RxNorm: 9544745 10/14/2010 No Inactive Da te Active CEPHALOSPORINS [...] Fill Instructions cyclobenzaprine 10 mg tablet RxNorm: 782022 Tablet(s) Oral as neede d 07/17/2019 No Stop Date Active Cipro 500 mg tablet RxNorm: 656032 1 Tablet(s) Oral two times a day 07/17/2019 07/22/2019 Active Xanax 1 mg tablet RxNorm: 852612 1-2 Tablet(s) Oral e very night at bedtime as needed for sleep 07/10/2019 08/08/2019 Active Generic For:LAVELLE AX 1MG 10/11/2016 11:15:13 AM prednisone 20 mg tablet RxNorm: 583440 1 Tablet(s) Oral two harlan es a day 06/26/2019 07/03/2019 Inactive Amabelz 1 mg-0.5 mg tablet RxNorm: 8118029 1 Tablet(s) Oral QD 05/3007/17/2019 Inactive Trazadone 150 mg Tablet RxNorm: 1 Tablet(s) Oral every n ight at bedtime 05/14/2019 No Stop Date Active Levaquin 500 mg tablet RxNorm: 535165 1 Tablet(s) Oral QD 05/14/2019 05/21/2019 Inactive Xanax 1 mg tablet RxNorm: 123516 1-2 Tablet(s) Oral e very night at bedtime as needed for sleep 05/03/2019 06/01/2019 Inactive Generic For:LAVELLE AX 1MG 10/11/2016 11:15:13 AM cyclobenzaprine 10 mg tablet RxNorm: 493073 1 Tablet(s) Oral three times a day as needed for muscle spasm 02/12/2019 02/12/2019 Inactive Xanax 1 mg tablet RxNorm: 399105 1-2 Tablet(s) Oral e very night at bedtime as needed for sleep 02/09/2019 03/10/2019 Inactive Generic For:LAVELLE AX 1MG 10/11/2016 11:15:13 AM Xanax 1 mg tablet RxNorm: 510361 1-2 Tablet(s) Oral e very night at bedtime as needed for sleep 01/22/2019 02/08/2019 Inactive Generic For:LAVELLE AX 1MG 10/11/2016 11:15:13 AM Celexa 40 mg tablet RxNorm: 032974 1 Tablet(s) Oral QD 01/17/2019 Active - First Attempt Ref: [id number] Xanax 1 mg tablet RxNorm: 606557 1 Tablet(s) Oral every night a t bedtime 01/08/2019 01/21/2019 Inactive levothyroxine 88 mcg tablet RxNorm: 512336 TAKE 1 TABLET BY NINA TH DAILY 12/19/2018 06/16/2019 Inactive - First Attempt Ref: [id number] Xanax 1 mg tablet RxNorm: 432902 1 Tablet(s) Oral every night a t bedtime 12/06/2018 01/05/2019 Inactive Singulair 10 mg tablet RxNorm: 002847 1 Tablet(s) Oral every ni ght at bedtime 11/23/2018 11/17/2019 Active - First Attempt Ref: [id number] Celexa 40 mg tablet RxNorm: 609272 1 Tablet(s) Oral 11/23/20182018 Inactive - First Attempt Ref: 281101150 cyclobenzaprine 10 mg tablet RxNorm: 799100 1 Tablet(s) Oral three times a day as needed for muscle spasm 11/23/2018 02/11/2019 Inactive Xanax 1 mg tablet RxNorm: 663171 1 Tablet(s) PO QHS 11/06/20182018 Inactive Xanax 1 mg tablet RxNorm: 261837 1 Tablet(s) PO QHS 09/26/20182018 Inactive Singulair 10 mg tablet RxNorm: 396485 TAKE 1 TABLET BY MOUTH EVERY NIGHT AT BEDTIME 08/16/2018 11/22/2018 Inactive - First Attempt Ref: [id number] Xanax 1 mg tablet RxNorm: 261123 1 Tablet(s) PO QHS 08/01/20182018 Inactive levothyroxine 88 mcg tablet RxNorm: 044105 TAKE 1 TABLET BY NINA TH DAILY 07/31/2018 12/18/2018 Inactive - First Attempt Ref: [id number] Celexa 40 mg tablet RxNorm: 874302 TAKE 1 TABLET BY MOUTH DAILY 04/201811/22/2018 Inactive - First Attempt Ref: [id number] 54 bupropion HCl SR 100 mg tablet,12 hr sustained-release RxNor m: 155713 1 Tablet(s) PO BID 07/12/2018 07/06/2019 Inactive - Ref: [id number] 7 Claritin-D 24 Hour 10 mg-240 mg tablet,extended release RxNo rm: 7519572 1 Tablet(s) PO QD 06/29/2018 2018 Inactive Claritin-D 24 Hour 10 mg-240 mg tablet,extended release RxNo rm: 3902081 1 Tablet(s) PO QD 06/29/2018 2018 Inactive Xanax 1 mg tablet RxNorm: 522788 1-2 Tablet(s) PO QHS as needed for sleep 05/26/2018 06/23/2018 Inactive Generic For:XANAX 1M G 10/11/2016 11:15:13 AM Xanax 1 mg tablet RxNorm: 628972 1-2 Tablet(s) PO QHS as needed for sleep 03/28/2018 05/25/2018 Inactive Generic For:XANAX 1M G 10/11/2016 11:15:13 AM Macrobid 100 mg capsule RxNorm: 422872 1 Capsule(s) PO BID 03/27/19 19 03/31/2018 Inactive gabapentin 300 mg capsule RxNorm: 258665 1 Capsule(s) PO QHS 201703/26/2018 Inactive Claritin-D 24 Hour 10 mg-240 mg tablet,extended release RxNo rm: 1244517 1 Tablet(s) PO QD 01/26/2018 02/24/2018 Inactive gabapentin 100 mg capsule RxNorm: 007024 1 Capsule(s) P O QHS for 1 week then 2 po q HS for 2 weeks then 3 po q HS 01/24/2018 03/26/2018 Inactive Xanax 1 mg tablet RxNorm: 411298 1-2 Tablet(s) PO QHS as needed for sleep 01/24/2018 03/24/2018 Inactive Generic For:XANAX 1M G 10/11/2016 11:15:13 AM prednisone 20 mg tablet RxNorm: 548677 1 Tablet(s) PO T ID for 3 days then 1 po BID for 3 days then one daily for 3 days 12/29/2017 03/26/2018 Inactiv e prednisone 20 mg tablet RxNorm: 366883 3 Tablet(s) PO T ID for 3 days then 1 po BID for 3 days then one daily for 3 days 12/29/2017 12/29/2017 Inactiv e Macrobid 100 mg capsule RxNorm: 757251 1 Capsule(s) PO BID 12/30/19 18 01/02/2018 Inactive Xanax 1 mg tablet RxNorm: 999913 1-2 Tablet(s) PO QHS as needed for sleep 12/28/2017 01/23/2018 Inactive Generic For:XANAX 1M G 10/11/2016 11:15:13 AM Medrol (Walter) 4 mg tablets in a dose pack RxNorm: 631320 Tablet(s) PO take as directed 12/01/2017 03/26/2018 Inactive Keflex 750 mg capsule RxNorm: 843997 1 Capsule(s) PO BID 12/01/2017 1 Inactive clindamycin HCl 300 mg capsule RxNorm: 310755 2 Capsule(s) PO TID 1 12/08/2017 Inactive Xanax 1 mg tablet RxNorm: 362019 1-2 Tablet(s) PO QHS as needed for sleep 11/28/2017 12/27/2017 Inactive Generic For:XANAX 1M G 10/11/2016 11:15:13 AM mupirocin 2 % topical ointment RxNorm: 701117 1 Application OTIC BI D 11/28/2017 08/09/2018 Inactive Xanax 1 mg tablet RxNorm: 447187 1-2 Tablet(s) PO QHS as needed for sleep 10/27/2017 11/25/2017 Inactive Generic For:XANAX 1M G 10/11/2016 11:15:13 AM Macrobid 100 mg capsule RxNorm: 079611 1 Capsule(s) PO BID 10/11/19 18 10/16/2017 Inactive Medrol (Walter) 4 mg tablets in a dose pack RxNorm: 034273 Tablet(s) PO take as directed 10/10/2017 11/16/2017 Inactive Xanax 1 mg tablet RxNorm: 936362 1-2 Tablet(s) PO QHS as needed for sleep 09/28/2017 10/26/2017 Inactive Generic For:XANAX 1M G 10/11/2016 11:15:13 AM Xanax 1 mg tablet RxNorm: 699995 1-2 Tablet(s) PO QHS as needed for sleep 08/30/2017 09/27/2017 Inactive Generic For:XANAX 1M G 10/11/2016 11:15:13 AM Xanax 1 mg tablet RxNorm: 777738 1-2 Tablet(s) PO QHS as needed for sleep 08/30/2017 08/29/2017 Inactive Generic For:XANAX 1M G 10/11/2016 11:15:13 AM Xanax 1 mg tablet RxNorm: 660249 1-2 Tablet(s) PO QHS as needed for sleep 08/01/2017 08/29/2017 Inactive Generic For:XANAX 1M G 10/11/2016 11:15:13 AM Xanax 1 mg tablet RxNorm: 931407 1-2 Tablet(s) PO QHS as needed for sleep 06/29/2017 2017 Inactive Generic For:XANAX 1M G 10/11/2016 11:15:13 AM Claritin-D 24 Hour 10 mg-240 mg tablet,extended release RxNo rm: 1600705 1 Tablet(s) PO QD 06/29/2017 2017 Inactive levothyroxine 88 mcg tablet RxNorm: 967346 1 Tablet(s) PO QD 201709/10/2017 Inactive Xanax 1 mg tablet RxNorm: 620537 1-2 Tablet(s) PO QHS as needed for sleep 05/26/2017 06/28/2017 Inactive Generic For:XANAX 1M G 10/11/2016 11:15:13 AM Claritin-D 24 Hour 10 mg-240 mg tablet,extended release RxNo rm: 3309420 1 Tablet(s) PO QD 05/26/2017 06/24/2017 Inactive bupropion HCl SR 100 mg tablet,12 hr sustained-release RxNor m: 398430 Tablet(s) Take 1 tablet by mouth two times daily 04/06/2017 12/31/2017 Inactive - Ref: [id number] Xanax 1 mg tablet RxNorm: 246575 1-2 Tablet(s) PO QHS as needed for sleep 03/24/2017 05/22/2017 Inactive Generic For:XANAX 1M G 10/11/2016 11:15:13 AM Medrol (Walter) 4 mg tablets in a dose pack RxNorm: 810576 Tablet(s) P O 02/16/2017 03/27/2017 Inactive Xanax 1 mg tablet RxNorm: 705049 Tablet(s) TAKE ONE T O TWO TABLETS BY MOUTH AT BEDTIME NEEDED 02/16/2017 03/17/2017 Inactive Generic For:XA NAX 1MG 10/11/2016 11:15:13 AM Claritin-D 24 Hour 10 mg-240 mg tablet,extended release RxNo rm: 1175440 1 Tablet(s) PO QD 02/16/2017 04/16/2017 Inactive cefdinir 300 mg capsule RxNorm: 381031 2 Capsule(s) PO QD 02/16/2017 02/25/2017 Inactive Celexa 40 mg tablet RxNorm: 556607 Tablet(s) Take 1 tablet by m outh daily 12/23/2016 09/18/2017 Inactive - Ref: [id number] Xanax 1 mg tablet RxNorm: 126580 Tablet(s) TAKE ONE T O TWO TABLETS BY MOUTH AT BEDTIME NEEDED 12/16/2016 01/14/2017 Inactive Generic For:XA NAX 1MG 10/11/2016 11:15:13 AM Xanax 1 mg tablet RxNorm: 677811 Tablet(s) TAKE ONE T O TWO TABLETS BY MOUTH AT BEDTIME NEEDED 11/18/2016 12/15/2016 Inactive Generic For:XA NAX 1MG 10/11/2016 11:15:13 AM Xanax 1 mg tablet RxNorm: 424027 TAKE ONE TO TWO TABL ETS BY MOUTH AT BEDTIME NEEDED 10/11/2016 11/17/2016 Inactive Generic For:XANA X 1MG 10/11/2016 11:15:13 AM Mobic 15 mg tablet RxNorm: 242740 1 Tablet(s) PO QD 09/06/20162016 Inactive Claritin-D 24 Hour 10 mg-240 mg tablet,extended release RxNo rm: 1797042 1 Tablet(s) PO QD 09/02/2016 11/30/2016 Inactive prednisone 20 mg tablet RxNorm: 304788 1 Tablet(s) PO T ID for 3 days then 1 po BID for 3 days then one daily for 3 days 08/16/2016 03/27/2017 Inactiv e cefdinir 300 mg capsule RxNorm: 594064 2 Capsule(s) PO QD 08/16/2016 09/05/2016 Inactive Xanax 1 mg tablet RxNorm: 838159 TAKE ONE TO TWO TABL ETS BY MOUTH AT BEDTIME NEEDED 08/05/2016 10/11/2016 Inactive Generic For:XANA X 1MG 08/05/2016 2:27:03 PM08/04/2016 4:15:22 PM Singulair 10 mg tablet RxNorm: 069334 1 Tablet(s) PO QHS 07/06/2016 0 09/03/2016 Inactive prednisone 20 mg tablet RxNorm: 394341 1 Tablet(s) PO T ID for 3 days then 1 po BID for 3 days then one daily for 3 days 06/15/2016 07/05/2016 Inactiv e Singulair 10 mg tablet RxNorm: 039159 1 Tablet(s) PO QHS 06/15/2016 0 07/05/2016 Inactive cefdinir 300 mg capsule RxNorm: 485029 2 Capsule(s) PO QD 06/15/2016 07/05/2016 Inactive Xanax 1 mg tablet RxNorm: 918454 1-2 Tablet(s) PO QHS 05/21/201610/2016 Inactive Claritin-D 24 Hour 10 mg-240 mg tablet,extended release RxNo rm: 8740073 1 Tablet(s) PO QD 04/09/2016 07/07/2016 Inactive Xanax 1 mg tablet RxNorm: 048854 1-2 Tablet(s) PO QHS 03/23/201604/29 Inactive levothyroxine 88 mcg tablet RxNorm: 341915 1 Tablet(s) PO QD 201606/13/2017 Inactive bupropion HCl SR 100 mg tablet,sustained-release RxNorm: 993 503 Take 1 tablet by mouth two times daily 03/15/2016 12/09/2016 Inactive - Ref: 20 3802341 Celexa 40 mg tablet RxNorm: 202105 Take 1 tablet by mouth daily 12/23/2016 Inactive - Ref: 628475807 Xanax 1 mg tablet RxNorm: 086962 1-2 Tablet(s) PO QHS 02/17/201603/01 Inactive levothyroxine 88 mcg tablet RxNorm: 223105 1 Tablet(s) PO QD 201502/22/2016 Inactive Xanax 1 mg tablet RxNorm: 536001 1-2 Tablet(s) PO QHS 11/25/201511/29 Inactive levothyroxine 88 mcg tablet RxNorm: 387315 1 Tablet(s) PO QD 201511/24/2015 Inactive temazepam 30 mg capsule RxNorm: 880965 1 Capsule(s) PO QHS 11/13/19 16 11/24/2015 Inactive Xanax 1 mg tablet RxNorm: 247090 1-2 Tablet(s) PO QHS 09/15/201510/29 Inactive Celexa 40 mg tablet RxNorm: 082691 1 Tablet(s) PO QD 1 Tablet(s ) PO QD 09/10/2015 09/16/2015 Inactive bupropion HCl SR 100 mg tablet,sustained-release RxNorm: 993 503 1 Tablet(s) PO BID 09/10/2015 09/23/2015 Inactive Xanax 1 mg tablet RxNorm: 234848 1-2 Tablet(s) PO QHS 09/10/201508/28 Inactive Xanax 1 mg tablet RxNorm: 777120 1-2 Tablet(s) PO QHS 08/11/201508/28 Inactive cyclobenzaprine 10 mg tablet RxNorm: 110972 1 Tablet(s) PO TID prn spasm 07/09/2015 11/23/2018 Inactive Celexa 40 mg tablet RxNorm: 447862 1 Tablet(s) PO QD 06/06/201508/03 Inactive Xanax 1 mg tablet RxNorm: 741255 1-2 Tablet(s) PO QHS 06/04/201505/2015 Inactive levothyroxine 88 mcg tablet RxNorm: 489839 1 Tablet(s) PO QD 201511/23/2015 Inactive Ceftin 500 mg tablet RxNorm: 226443 1 Tablet(s) PO BID 05/05/2015 Inactive Ceftin 500 mg tablet RxNorm: 423171 1 Tablet(s) PO BID 05/05/201507/2015 Inactive meloxicam 15 mg tablet RxNorm: 741328 1 Tablet(s) PO QD 04/16/2015 Inactive meloxicam 15 mg tablet RxNorm: 314746 1 Tablet(s) PO QD 04/16/2015 Inactive diclofenac sodium 75 mg tablet,delayed release RxNorm: 89912 6 1 Tablet(s) PO BID 04/04/2015 04/15/2015 Inactive diclofenac sodium 75 mg tablet,delayed release RxNorm: 36765 6 1 Tablet(s) PO BID 04/04/2015 04/03/2015 Inactive Tivorbex 40 mg capsule RxNorm: 4895037 1 Capsule(s) PO TID 03/24/19 16 04/02/2015 Inactive bupropion HCl SR 100 mg tablet,sustained-release RxNorm: 993 503 1 Tablet(s) PO BID 03/11/2015 09/06/2015 Inactive cyclobenzaprine 10 mg tablet RxNorm: 743920 1 Tablet(s) PO TID prn spasm 03/11/2015 07/08/2015 Inactive levothyroxine 88 mcg tablet RxNorm: 532534 1 Tablet(s) PO QD 201405/27/2015 Inactive Claritin-D 24 Hour 10 mg-240 mg tablet,extended release RxNo rm: 1434479 1 Tablet(s) PO QD 02/27/2015 05/27/2015 Inactive cefuroxime axetil 500 mg tablet RxNorm: 325428 1 Tablet(s) PO BID 1 03/12/2015 Inactive Celexa 40 mg tablet RxNorm: 581066 1 Tablet(s) PO QD 02/05/201504/05 Inactive levothyroxine 75 mcg tablet RxNorm: 160495 1 Tablet(s) PO QD 201402/26/2015 Inactive Celexa 40 mg tablet RxNorm: 409840 1 Tablet(s) PO QD 10/09/201402/04 Inactive Activella 1 mg-0.5 mg tablet RxNorm: 7646483 1 Tablet(s) PO QD 08/2802/26/2015 Inactive bupropion HCl SR 100 mg tablet,sustained-release RxNorm: 993 503 1 Tablet(s) PO BID 09/12/2014 03/10/2015 Inactive levothyroxine 75 mcg tablet RxNorm: 506530 1 Tablet(s) PO QD 201412/09/2014 Inactive levothyroxine 75 mcg tablet RxNorm: 669931 1 Tablet(s) PO QD 201409/11/2014 Inactive Celexa 40 mg tablet RxNorm: 362774 1 Tablet(s) PO QD 08/12/201410/08 Inactive Xanax 1 mg tablet RxNorm: 448371 1-2 Tablet(s) PO QHS 08/12/201409/28 Inactive Claritin-D 24 Hour 10 mg-240 mg tablet,extended release RxNo rm: 3746360 1 Tablet(s) PO QD 06/13/2014 09/10/2014 Inactive cyclobenzaprine 10 mg tablet RxNorm: 602116 1 Tablet(s) PO TID prn spasm 06/12/2014 02/26/2015 Inactive Xanax 1 mg tablet RxNorm: 051070 1-2 Tablet(s) PO QHS 05/09/201406/28 Inactive levothyroxine 75 mcg tablet RxNorm: 189225 1 Tablet(s) PO QD 201407/08/2014 Inactive cephalexin 500 mg capsule RxNorm: 472331 1 Capsule(s) PO QOD 201402/26/2015 Inactive simvastatin 10 mg tablet RxNorm: 900677 1 Tablet(s) PO QHS 04/10/19 15 06/12/2014 Inactive Xanax 1 mg tablet RxNorm: 095736 1-2 Tablet(s) PO QHS 04/10/201404/28 Inactive levothyroxine 75 mcg tablet RxNorm: 428165 1 Tablet(s) PO QD 201404/09/2014 Inactive levothyroxine 75 mcg capsule RxNorm: 741470 1 Capsule(s) PO QD 03/3104/10/2014 Inactive Activella 1 mg-0.5 mg tablet RxNorm: 8443947 1 Tablet(s) PO QD 03/0109/11/2014 Inactive bupropion HCl SR 100 mg tablet,sustained-release RxNorm: 993 503 1 Tablet(s) PO BID 03/04/2014 08/30/2014 Inactive Activella 1 mg-0.5 mg tablet RxNorm: 7401997 1 Tablet(s) PO QD 01/2803/18/2014 Inactive levothyroxine 75 mcg capsule RxNorm: 123053 1 Capsule(s) PO QD 12/2904/08/2014 Inactive simvastatin 10 mg tablet RxNorm: 237179 1 Tablet(s) PO QHS 01/10/20 14 04/08/2014 Inactive cyclobenzaprine 10 mg tablet RxNorm: 889196 1 Tablet(s) PO TID prn spasm 01/09/2014 04/08/2014 Inactive Cipro 500 mg tablet RxNorm: 041121 1 Tablet(s) PO BID 12/25/201304/2013 Inactive Cipro 500 mg tablet RxNorm: 020398 1 Tablet(s) PO BID 12/25/201311/29 Inactive bupropion HCl SR 100 mg tablet,sustained-release RxNorm: 993 503 1 Tablet(s) PO QAM 12/11/2013 03/03/2014 Inactive cephalexin 500 mg capsule RxNorm: 109677 1 Capsule(s) PO QOD 201304/09/2014 Inactive Xanax 1 mg tablet RxNorm: 266939 1-2 Tablet(s) PO QHS 10/15/201310/29 Inactive simvastatin 10 mg tablet RxNorm: 580966 1 Tablet(s) PO QHS 10/11/19 14 01/07/2014 Inactive Celexa 40 mg tablet RxNorm: 704053 Tablet(s) PO TAKE 1 TABLET BY MOUTH ONCE DAILY. 09/18/2013 09/17/2013 Inactive Xanax 1 mg tablet RxNorm: 248464 1-2 Tablet(s) PO QHS 08/13/201308/28 Inactive simvastatin 10 mg tablet RxNorm: 154537 1 Tablet(s) PO QHS 07/12/19 14 10/08/2013 Inactive bupropion HCl SR 100 mg tablet,sustained-release RxNorm: 993 503 1 Tablet(s) PO QAM 05/22/2013 11/17/2013 Inactive Pamelor 10 mg capsule RxNorm: 762919 1 Capsule(s) PO QHS for PLATA /sleep 05/22/2013 06/04/2013 Inactive Xanax 1 mg tablet RxNorm: 073108 1-2 Tablet(s) PO QHS 05/15/201305/29 Inactive Pamelor 10 mg capsule RxNorm: 193249 1 Capsule(s) PO QHS for PLATA /sleep 05/15/2013 05/21/2013 Inactive Xanax 1 mg tablet RxNorm: 916267 1 Tablet(s) PO QHS 04/27/20132013 Inactive Zovirax 800 mg tablet RxNorm: 001463 1 Tablet(s) PO TID 04/05/2013 Inactive Xanax 1 mg tablet RxNorm: 697012 1 Tablet(s) PO QHS 04/03/2013 No Sto p Date Active bupropion HCl SR 100 mg tablet,sustained-release RxNorm: 993 503 1 Tablet(s) PO QAM 03/26/2013 05/21/2013 Inactive bupropion HCl SR 100 mg tablet,sustained-release RxNorm: 993 503 1 Tablet(s) PO QAM 03/06/2013 03/25/2013 Inactive Pamelor 10 mg capsule RxNorm: 527481 1 Capsule(s) PO QHS for PLATA /sleep 02/14/2013 05/14/2013 Inactive levothyroxine 75 mcg capsule RxNorm: 511806 1 Capsule(s) PO QD 12/2901/08/2014 Inactive simvastatin 10 mg tablet RxNorm: 579177 1 Tablet(s) PO QHS TAKE 1 TABLET BY MOUTH ONCE DAILY AT BEDTIME. 01/15/2013 07/10/2013 Inactive cyclobenzaprine 10 mg tablet RxNorm: 810972 1 Tablet(s) PO TID prn spasm 12/25/2012 06/22/2013 Inactive Pamelor 10 mg capsule RxNorm: 874769 1 Capsule(s) PO QHS for PLATA /sleep 11/29/2012 02/14/2013 Inactive Celexa 40 mg tablet RxNorm: 178368 Tablet(s) PO TAKE 1 TABLET BY MOUTH ONCE DAILY. 10/11/2012 09/17/2013 Inactive simvastatin 10 mg tablet RxNorm: 861845 Tablet(s) PO TA KE 1 TABLET BY MOUTH ONCE DAILY AT BEDTIME. 10/11/2012 01/14/2013 Inactive simvastatin 10 mg tablet RxNorm: 685369 1 Tablet(s) PO QD 07/11/2012 10/08/2012 Inactive simvastatin 10 mg tablet RxNorm: 836124 1 Tablet(s) PO QD 04/14/2012 07/11/2012 Inactive simvastatin 10 mg tablet RxNorm: 841588 1 Tablet(s) PO QD 04/14/2012 04/13/2012 Inactive Celexa 40 mg tablet RxNorm: 743721 1 Tablet(s) PO QD 03/15/201209/10 Inactive cyclobenzaprine 10 mg tablet RxNorm: 014764 1 Tablet(s) PO TID prn spasm 02/02/2012 02/01/2012 Inactive cyclobenzaprine 10 mg tablet RxNorm: 024483 1 Tablet(s) PO TID prn spasm 02/02/2012 07/30/2012 Inactive Diflucan 100 mg Tab RxNorm: 218788 1 Tablet(s) PO QD 08/17/201108/22 Inactive Cipro 250 mg Tab RxNorm: 942685 1 Tablet(s) PO QD 08/17/2011 10/15/19 12 Inactive Levaquin 500 mg Tab RxNorm: 451730 1 Tablet(s) PO QD 08/17/201108/22 Inactive Pyridium 200 mg Tab RxNorm: 1795037 1 Tablet(s) PO TID 10/14/2010 Inactive may turn urine orange-red color. Cipro 500 mg Tab RxNorm: 009885 1 Tablet(s) PO BID 10/14/2010 011 Inactive levothyroxine 75 mcg capsule RxNorm: 884103 1 Capsule(s) PO QD 12/3001/14/2011 Inactive Vitamin D3 5,000 unit tablet RxNorm: 867540 1 Tablet(s) PO QD No Star t Date Active Nasacort 55 mcg nasal spray aerosol RxNorm: 1714895 2 Sp ray NASAL each nostril QHS No Start Date Active cyclobenzaprine 10 mg tablet RxNorm: 079864 1 Tablet(s) PO TID as needed No Start Date 11/22/2018 Inactive Vitamin D2 1,000 unit capsule RxNorm: 146496 3 Capsule(s) PO QD No Start Date 11/16/2017 Inactive diclofenac sodium 75 mg tablet,delayed release RxNorm: 34801 6 1 Tablet(s) PO BID No Start Date 03/16/2016 Inactive cephalexin 500 mg capsule RxNorm: 051600 1 Capsule(s) PO QOD No Sta rt Date 12/04/2013 Inactive cyclobenzaprine 10 mg tablet RxNorm: 799405 1 Tablet(s) PO QHS No S tart Date 02/01/2012 Inactive loratadine 10 mg tablet RxNorm: 643115 1 Tablet(s) PO QHS No Start Date 05/14/2019 Inactive hydrocodone 5 mg-acetaminophen 500 mg tablet RxNorm: 036903 1 -2 Tablet(s) PO Q6H as needed No Start Date 08/09/2018 Inactive etodolac 400 mg tablet RxNorm: 872455 1 Tablet(s) PO TID No Start D ate 09/17/2018 Inactive Xanax 1 mg tablet RxNorm: 754566 1 Tablet(s) PO QHS No Start Date 04/2013 Inactive Vitamin D3 1,000 unit capsule RxNorm: 922875 1 Capsule(s) PO QD No Start Date 06/12/2014 Inactive estradiol 2 mg tablet RxNorm: 290930 1/2 Tablet(s) PO QD No Start D ate 03/05/2013 Inactive Celexa 40 mg tablet RxNorm: 263465 1 Tablet(s) PO QD No Start Date Inactive Activella 1 mg-0.5 mg tablet RxNorm: 8363246 1 Tablet(s) PO QD No S tart Date 07/10/2012 Inactive medroxyprogesterone 5 mg tablet RxNorm: 9421601 1/2 Tablet(s) PO QD No Start Date 03/05/2013 Inactive levothyroxine 88 mcg tablet RxNorm: 910353 1 Tablet(s) PO QD No Sta rt Date 02/26/2015 Inactive Keflex 500 mg capsule RxNorm: 751869 1 Capsule(s) PO PRN No Start D ate 08/16/2011 Inactive Activella 1 mg-0.5 mg tablet RxNorm: 1668124 1 Tablet(s) PO QHS No Start Date 03/27/2017 Inactive Activella 1 mg-0.5 mg tablet RxNorm: 6301255 1 Tablet(s) PO QD No S tart Date 02/06/2014 Inactive Flexeril 10 mg Tab RxNorm: 829821 1 Tablet(s) PO TID No Start Date Inactive prn spasm simvastatin 10 mg tablet RxNorm: 159319 1 Tablet(s) PO QD No Start Date 04/13/2012 Inactive Medication Administered No Medication Administered data Immunizations Vaccine Codes Date Status Influenza CVX: 135 01/16/2019 Complete Pneumococcal CVX: 133 01/16/2019 Complete Results No Results data Procedures Procedure Codes Date URINALYSIS NONAUTO W/O SCOPE CPT-4: 64864 07/17/2019 URINE CULTURE/ COLONY COUNT CPT-4: 92160 07/17/2019 DEXAMETHASONE SODIUM PHOS CPT-4: J1100 05/14/2019 THER/PROPH/DIAG INJ SC/IM CPT-4: 70185 05/14/2019 TRIAMCINOLONE ACET INJ NOS CPT-4: J3301 05/14/2019 FLU VACC PRSV FREE INC ANTIG 65 AND OLDER CPT-4: 28499 01/16/2019 FLU VACC PRSV FREE INC ANTIG 65 AND OLDER CPT-4: 69495 01/16/2019 PNEUMOCOCCAL VACC 13 NARESH IM CPT-4: 26370 01/16/2019 SKIN FUNGI CULTURE CPT-4: 40211 01/16/2019 IMMUNIZATION ADMIN CPT-4: 86369 01/16/2019 IMMUNIZATION ADMIN EACH ADD CPT-4: 56765 01/16/2019 THER/PROPH/DIAG INJ SC/IM CPT-4: 99283 01/17/2018 KETOROLAC TROMETHAMINE INJ CPT-4: J1885 01/17/2018 THER/PROPH/DIAG INJ SC/IM CPT-4: 73044 01/17/2018 PROMETHAZINE HCL INJECTION CPT-4: J2550 01/17/2018 URINALYSIS NONAUTO W/O SCOPE CPT-4: 14587 12/29/2017 URINE CULTURE/ COLONY COUNT CPT-4: 26386 12/29/2017 THER/PROPH/DIAG INJ SC/IM CPT-4: 71936 11/30/2017 TRIAMCINOLONE ACET INJ NOS CPT-4: J3301 11/30/2017 DEXAMETHASONE SODIUM PHOS CPT-4: J1100 11/30/2017 CEFTRIAXONE SODIUM INJECTION CPT-4: J0696 11/29/2017 THER/PROPH/DIAG INJ SC/IM CPT-4: 56001 11/29/2017 CEFTRIAXONE SODIUM INJECTION CPT-4: J0696 11/28/2017 THER/PROPH/DIAG INJ SC/IM CPT-4: 58686 11/28/2017 URINALYSIS NONAUTO W/O SCOPE CPT-4: 10777 10/10/2017 THER/PROPH/DIAG INJ SC/IM CPT-4: 46352 10/10/2017 TRIAMCINOLONE ACET INJ NOS CPT-4: J3301 10/10/2017 DEXAMETHASONE SODIUM PHOS CPT-4: J1100 10/10/2017 CEFTRIAXONE SODIUM INJECTION CPT-4: J0696 10/10/2017 THER/PROPH/DIAG INJ SC/IM CPT-4: 22670 10/10/2017 URINE CULTURE/ COLONY COUNT CPT-4: 50941 10/10/2017 THER/PROPH/DIAG INJ SC/IM CPT-4: 75418 11/02/2016 KETOROLAC TROMETHAMINE INJ CPT-4: J1885 11/02/2016 THER/PROPH/DIAG INJ SC/IM CPT-4: 18210 06/15/2016 TRIAMCINOLONE ACET INJ NOS CPT-4: J3301 06/15/2016 DEXAMETHASONE SODIUM PHOS CPT-4: J1100 06/15/2016 THER/PROPH/DIAG INJ SC/IM CPT-4: 53950 04/09/2016 KETOROLAC TROMETHAMINE INJ CPT-4: J1885 04/09/2016 PROMETHAZINE HCL INJECTION CPT-4: J2550 04/09/2016 EXC TR-EXT B9+ERASMO 0.5 CM< CPT-4: 87048 06/12/2015 URINALYSIS NONAUTO W/O SCOPE CPT-4: 99814 05/05/2015 URINE CULTURE/ COLONY COUNT CPT-4: 61432 05/05/2015 URINALYSIS NONAUTO W/O SCOPE CPT-4: 54253 03/24/2015 URINALYSIS NONAUTO W/O SCOPE CPT-4: 99735 02/27/2015 URINE CULTURE/ COLONY COUNT CPT-4: 73550 02/27/2015 THER/PROPH/DIAG INJ SC/IM CPT-4: 43471 04/18/2014 KETOROLAC TROMETHAMINE INJ CPT-4: J1885 04/18/2014 THER/PROPH/DIAG INJ SC/IM CPT-4: 78408 06/05/2013 TRIAMCINOLONE ACET INJ NOS CPT-4: J3301 06/05/2013 THER/PROPH/DIAG INJ SC/IM CPT-4: 73586 11/29/2012 KETOROLAC TROMETHAMINE INJ CPT-4: J1885 11/29/2012 URINALYSIS NONAUTO W/O SCOPE CPT-4: 39747 07/11/2012 URINE CULTURE/ COLONY COUNT CPT-4: 67912 07/11/2012 OCCULT BLOOD FECES CPT-4: 24870 02/17/2012 URINALYSIS NONAUTO W/O SCOPE CPT-4: 77992 08/27/2011 URINE CULTURE/ COLONY COUNT CPT-4: 64846 08/27/2011 URINALYSIS NONAUTO W/O SCOPE CPT-4: 22539 08/17/2011 URINE CULTURE/ COLONY COUNT CPT-4: 91062 08/17/2011 URINALYSIS NONAUTO W/O SCOPE CPT-4: 81646 12/28/2010 URINE CULTURE/ COLONY COUNT CPT-4: 53350 12/28/2010 URINALYSIS NONAUTO W/O SCOPE CPT-4: 91328 11/09/2010 URINE CULTURE/ COLONY COUNT CPT-4: 49796 11/09/2010 URINALYSIS NONAUTO W/O SCOPE CPT-4: 90505 10/29/2010 URINE CULTURE/ COLONY COUNT CPT-4: 85458 10/29/2010 URINE CULTURE/ COLONY COUNT CPT-4: 42271 10/14/2010 URINALYSIS NONAUTO W/O SCOPE CPT-4: 23786 10/14/2010 Vital Signs Date Vital 07/17/2019 Blood [...] 1: 122/74 Code: 8480-6 BMI: 22.0 Code: 19067-3 Heart Rate 1: 72 bpm Height: 5'3" [...] 1: 126/72 Code: 8480-6 BMI: 22.7 Code: 58661-0 Heart Rate 1: 72 bpm Height: 5'3" [...] 1: 112/70 Code: 8480-6 BMI: 22.0 Code: 47632-8 Heart Rate 1: 80 bpm Height: 5'3" [...] 1: 122/64 Code: 8480-6 BMI: 21.4 Code: 47958-9 Heart Rate 1: 88 bpm Height: 5'3" Respiratory Rate: 22 bpm SpO2: 96% Tempera ture: 36.8 (C) / 98.2 (F) Weight: 121 lbs 06/22/2017 Blood Pressure 1: 124/78 Code: 8480-6 BMI: 21.6 Code: 94910-3 Heart Rate 1: 76 bpm Height: 5'3" Respiratory Rate: 20 bpm Temperature: 36 .8 (C) / 98.3 (F) Weight: 122 lbs 03/28/2017 Blood Pressure 1: 92/60 Code: 8480-6 BMI: 20.4 C ode: 52301-5 Heart Rate 1: 72 bpm Height: 5'3" Respiratory Rate: 20 bpm Temperature: 36 .9 (C) / 98.4 (F) Weight: 115 lbs 02/16/2017 Blood Pressure 1: 106/70 Code: 8480-6 BMI: 21.3 Code: 49624-6 Heart Rate 1: 82 bpm Height: 5'3" Respiratory Rate: 22 bpm SpO2: 97% Tempera ture: 36.1 (C) / 97.0 (F) Weight: 120 lbs 09/06/2016 Blood Pressure 1: 118/64 Code: 8480-6 BMI: 22.7 Code: 76205-5 Heart Rate 1: 78 bpm Height: 5'3" Respiratory Rate: 20 bpm SpO2: 98% Tempera ture: 36.2 (C) / 97.2 (F) Weight: 128 lbs 08/16/2016 Blood Pressure 1: 118/78 Code: 8480-6 BMI: 22.1 Code: 36581-0 Heart Rate 1: 78 bpm Height: 5'3" Respiratory Rate: 20 bpm SpO2: 97% Tempera ture: 36.2 (C) / 97.1 (F) Weight: 125 lbs 07/19/2016 Blood Pressure 1: 116/68 Code: 8480-6 BMI: 22.5 Code: 69621-0 Heart Rate 1: 76 bpm Height: 5'3" Respiratory Rate: 20 bpm Temperature: 36 .8 (C) / 98.2 (F) Weight: 127 lbs 07/06/2016 Blood Pressure 1: 106/70 Code: 8480-6 BMI: 22.5 Code: 74128-6 Heart Rate 1: 72 bpm Height: 5'3" Respiratory Rate: 20 bpm SpO2: 97% Tempera ture: 36.8 (C) / 98.2 (F) Weight: 127 lbs 06/15/2016 Blood Pressure 1: 136/76 Code: 8480-6 BMI: 22.9 Code: 63648-1 Heart Rate 1: 74 bpm Height: 5'3" Respiratory Rate: 18 bpm SpO2: 98% Tempera ture: 36.4 (C) / 97.6 (F) Weight: 129 lbs 04/09/2016 Blood Pressure 1: 124/78 Code: 8480-6 BMI: 23.0 Code: 92249-1 Heart Rate 1: 86 bpm Height: 5'3" Respiratory Rate: 20 bpm SpO2: 96% Tempera ture: 36.5 (C) / 97.7 (F) Weight: 130 lbs 03/17/2016 Blood Pressure 1: 116/74 Code: 8480-6 BMI: 23.4 Code: 71678-9 Heart Rate 1: 84 bpm Height: 5'3" Respiratory Rate: 20 bpm SpO2: 97% Tempera ture: 36.8 (C) / 98.3 (F) Weight: 132 lbs 11/13/2015 Blood Pressure 1: 124/78 Code: 8480-6 BMI: 23.4 Code: 94237-9 Heart Rate 1: 88 bpm Height: 5'3" Respiratory Rate: 24 bpm SpO2: 98% Tempera ture: 36.8 (C) / 98.2 (F) Weight: 132 lbs 06/12/2015 Blood Pressure 1: 126/78 Code: 8480-6 BMI: 23.6 Code: 26632-5 Heart Rate 1: 80 bpm Height: 5'3" Respiratory Rate: 20 bpm Temperature: 36 .9 (C) / 98.4 (F) Weight: 133 lbs 04/22/2015 Blood Pressure 1: 126/68 Code: 8480-6 BMI: 23.6 Code: 17559-4 Heart Rate 1: 80 bpm Height: 5'3" Respiratory Rate: 20 bpm Temperature: 36 .6 (C) / 97.9 (F) Weight: 133 lbs 03/24/2015 Blood Pressure 1: 116/66 Code: 8480-6 BMI: 22.9 Code: 18056-3 Heart Rate 1: 74 bpm Height: 5'3" Respiratory Rate: 20 bpm Temperature: 36 .4 (C) / 97.6 (F) Weight: 129 lbs 02/27/2015 Blood Pressure 1: 106/64 Code: 8480-6 BMI: 22.7 Code: 53303-4 Heart Rate 1: 74 bpm Height: 5'3" Respiratory Rate: 20 bpm Temperature: 36 .8 (C) / 98.2 (F) Weight: 128 lbs 06/13/2014 Blood Pressure 1: 104/66 Code: 8480-6 BMI: 22.7 Code: 13127-0 Heart Rate 1: 84 bpm Height: 5'3" Respiratory Rate: 20 bpm Temperature: 37 .0 (C) / 98.6 (F) Weight: 128 lbs 04/18/2014 Blood Pressure 1: 112/62 Code: 8480-6 BMI: 22.0 Code: 80653-2 Heart Rate 1: 82 bpm Height: 5'3" Respiratory Rate: 18 bpm Temperature: 36 .4 (C) / 97.6 (F) Weight: 124 lbs 12/05/2013 Blood Pressure 1: 106/70 Code: 8480-6 BMI: 23.7 Code: 62935-6 Heart Rate 1: 84 bpm Height: 5'3" [...] 1: 126/88 Code: 8480-6 BMI: 22.3 Code: 65622-7 Heart Rate 1: 96 bpm Height: 5'4" Respiratory Rate: 20 bpm Temperature: 37 .7 (C) / 99.9 (F) Weight: 130 lbs 11/29/2012 Blood Pressure 1: 122/76 Code: 8480-6 BMI: 23.0 Code: 57247-1 Heart Rate 1: 84 bpm Height: 5'4" Respiratory Rate: 20 bpm Temperature: 36 .9 (C) / 98.4 (F) Weight: 134 lbs 09/26/2012 Blood Pressure 1: 114/76 Code: 8480-6 BMI: 23.0 Code: 47108-7 Heart Rate 1: 84 bpm Height: 5'4" Respiratory Rate: 20 bpm Temperature: 37 .3 (C) / 99.1 (F) Weight: 134 lbs 07/11/2012 Blood Pressure 1: 126/78 Code: 8480-6 BMI: 23.7 Code: 50931-1 Heart Rate 1: 76 bpm Height: 5'4" Respiratory Rate: 20 bpm Temperature: 37 .1 (C) / 98.7 (F) Weight: 138 lbs 02/02/2012 Blood Pressure 1: 108/70 Code: 8480-6 BMI: 23.2 Code: 99921-0 Heart Rate 1: 88 bpm Height: 5'4" Respiratory Rate: 20 bpm Temperature: 36 .4 (C) / 97.6 (F) Weight: 135 lbs 08/17/2011 Blood Pressure 1: 108/70 Code: 8480-6 BMI: 23.2 Code: 65690-3 Heart Rate 1: 72 bpm Height: 5'4" Respiratory Rate: 20 bpm Temperature: 36 .8 (C) / 98.2 (F) Weight: 135 lbs 10/14/2010 Blood Pressure 1: 120/72 Code: 8480-6 BMI: 23.4 Code: 28996-2 Heart Rate 1: 78 bpm Height: 5'3" [...] dysuria. Encounters Encounter Performer Location Codes Date ([id number]) OFFICE/OUTPATIENT VISIT EST Diagnosis: Urinary tract infection, site not specified[ICD10: N39.0] Diagnosis: Dysuria[ICD10: R30.0] Vandana CARROLL DO [facility] CPT-4: 98474 07/17/2019 ([id number]) OFFICE/OUTPATIENT VISIT EST Diagnosis: Allergic dermatitis[ICD10: L23.9] Alexandra CARROLL DO [facility] CPT-4: 27418 06/26/2019 ([id number]) OFFICE/OUTPATIENT VISIT EST Diagnosis: Contact dermatitis due to plant[ICD10: L25.5] Diagnosis: Cellulitis of left arm[ICD10: L03.114] Vandana Amritasasha CARROLL [facility] CPT-4: 74764 05/14/2019 ([id number]) OFFICE/OUTPATIENT VISIT EST Diagnosis: Ventral hernia[ICD10: K43.9] Diagnosis: Incisional hernia[ICD10: K43.2] Alexandra CARROLL DO [facility] CPT-4: 27595 04/10/2019 ([id number]) OFFICE/OUTPATIENT VISIT EST Diagnosis: Insomnia[ICD10: G47.00] Diagnosis: Thrombocytosis[ICD10: D47.3] Alexandra CARROLL [facility] CPT-4: 23658 02/14/2019 ([id number]) OFFICE/OUTPATIENT VISIT EST Diagnosis: Small bowel obstruction[ICD10: K56.609] Diagnosis: FLU VACCINE[ICD10: Z23] Diagnosis: PNEUMOCOCCAL VACCINE[ICD10: Z23] Diagnosis: Onychomycosis[ICD10: B35.1] Alexandra KUNZ [facility] CPT-4: 16122 01/16/2019 ([id number]) OFFICE/OUTPATIENT VISIT EST Diagnosis: Diarrhea, unspecified[ICD10: R19.7] Diagnosis: Radiculopathy, lumbosacral region[ICD10: M54.17] Alexandra CARROLL [facility] CPT-4: 63973 09/18/2018 OFFICE/OUTPATIENT VISIT EST Diagnosis: Other intervertebral disc degeneration, lumbar region[ICD10: M51.36] Diagnosis: Sacroiliitis, not elsewhere classified[ICD10: M46.1] Diagnosis: Obstructive sleep apnea (adult) (pediatric)[ICD10: G47.33] [facility] 85[facility] 08/10/2018 ([id number]) OFFICE/OUTPATIENT VISIT EST Diagnosis: Fracture of unspecified part of left clavicle, subsequent encounter for fracture with routine healing[ICD10: S42.002D] Diagnosis: Cervicalgia[ICD10: M54.2] Diagnosis: Radiculopathy, lumbosacral region[ICD10: M54.17] [facility]: 58022 03/27/2018 ([id number]) OFFICE/OUTPATIENT VISIT EST Diagnosis: Fracture of unspecified part of left clavicle, subsequent encounter for fracture with routine healing[ICD10: S42.002D] Diagnosis: Other intervertebral disc degeneration, lumbar region[ICD10: M51.36] Diagnosis: Unspecified fracture of first thoracic vertebra, subsequent encounter for fracture with routine healing[ICD10: S22.019D] Diagnosis: Unspecified fracture of second thoracic vertebra, subsequent encounter for fracture with routine healing[ICD10: S22.029D] [facility]: 48223 02/23/2018 ([id number]) OFFICE/OUTPATIENT VISIT EST Diagnosis: Fracture of unspecified part of left clavicle, subsequent encounter for fracture with routine healing[ICD10: S42.002D] Diagnosis: Unspecified fracture of first thoracic vertebra, subsequent encounter for fracture with routine healing[ICD10: S22.019D] Diagnosis: Unspecified fracture of second thoracic vertebra, subsequent encounter for fracture with routine healing[ICD10: S22.029D] Alexandra CARROLL DO [facility] CPT-4: 99273 01/24/2018 ([id number]) OFFICE/OUTPATIENT VISIT EST Diagnosis: Migraine, unspecified, not intractable, without status migrainosus[ICD10: G43.909] Alexandra CARROLL DO [facility] CPT - 4: 88069 01/17/2018 ([id number]) OFFICE/OUTPATIENT VISIT EST Diagnosis: Hematuria, unspecified[ICD10: R31.9] Diagnosis: Other intervertebral disc degeneration, lumbar region[ICD10: M51.36] Diagnosis: Retention of urine, unspecified[ICD10: R33.9] Alexandra CARROLL [facility] CPT-4: 44818 12/29/2017 OFFICE/OUTPATIENT VISIT EST Diagnosis: Fracture of [...] Diagnosis: Low back pain[ICD10: M54.5] Alexandra KUNZ [facility] CPT-4: 20003 12/06/2017 ([id number]) OFFICE/OUTPATIENT VISIT EST Diagnosis: Cellulitis of right upper limb[ICD10: L03.113] Diagnosis: Allergy status to other antibiotic agents status[ICD10: Z88.1] Vandana CARROLL [facility] CPT-4: 65539 12/01/2017 ([id number]) OFFICE/OUTPATIENT VISIT EST Diagnosis: Cellulitis of right upper limb[ICD10: L03.113] Diagnosis: Allergy status to other antibiotic agents status[ICD10: Z88.1] Vandana CARROLL [facility] CPT-4: 35955 11/30/2017 ([id number]) OFFICE/OUTPATIENT VISIT EST Diagnosis: Cellulitis of right upper limb[ICD10: L03.113] Vandana CARROLL DO [facility] CPT-4: 89964 11/29/2017 ([id number]) OFFICE/OUTPATIENT VISIT EST Diagnosis: Cellulitis of right upper limb[ICD10: L03.113] Vandana CARROLL DO [facility] CPT-4: 87284 11/28/2017 ([id number]) OFFICE/OUTPATIENT VISIT EST Diagnosis: Other intervertebral disc degeneration, lumbar region[ICD10: M51.36] Diagnosis: Other retention of urine[ICD10: R33.8] Diagnosis: Primary insomnia[ICD10: F51.01] Diagnosis: Other spondylosis, site unspecified[ICD10: M47.899] Alexandra CARROLL DO [facility] CPT-4: 83628 11/17/2017 ([id number]) OFFICE/OUTPATIENT VISIT EST Diagnosis: Radiculopathy, lumbosacral region[ICD10: M54.17] Diagnosis: Other retention of urine[ICD10: R33.8] Diagnosis: Urinary tract infection, site not specified[ICD10: N39.0] Vandana CARROLL DO [facility] CPT-4: 76742 10/10/2017 ([id number]) PREV VISIT EST AGE 40-64 Diagnosis: Encounter for general adult medical examination without abnormal findings[ICD10: Z00.00] Diagnosis: Other intervertebral disc degeneration, lumbar region[ICD10: M51.36] Diagnosis: Hypothyroidism, unspecified[ICD10: E03.9] Diagnosis: Mixed hyperlipidemia[ICD10: E78.2] Alexandra CARROLL DO [facility] CPT-4: 07720 06/22/2017 ([id number]) OFFICE/OUTPATIENT VISIT EST Diagnosis: URI, ACUTE[ICD10: J06.9] Alexandra [facility]AN [facility] CPT-4: 02073 03/28/2017 OFFICE/OUTPATIENT VISIT EST Diagnosis: Acute sinusitis, unspecified[ICD10: J01.90] Vandana CARROLL DO [facility] CPT-4: 47768 02/16/2017 ([id number]) OFFICE/OUTPATIENT VISIT EST Diagnosis: Migraine, unspecified, not intractable, without status migrainosus[ICD10: G43.909] Alexandra CARROLL [facility] CPT - 4: 33489 11/02/2016 ([id number]) OFFICE/OUTPATIENT VISIT EST Diagnosis: Pain in thoracic spine[ICD10: M54.6] Diagnosis: Chondrocostal junction syndrome [Tietze][ICD10: M94.0] Alexandra CARROLL [facility] CPT-4: 80122 09/06/2016 OFFICE/OUTPATIENT VISIT EST Diagnosis: Acute sinusitis, unspecified[ICD10: J01.90] Vidya Manuel ALEXANDRA CARROLL [facility] CPT-4: 35240 08/16/2016 ([id number]) OFFICE/OUTPATIENT VISIT EST Diagnosis: Primary insomnia[ICD10: F51.01] Diagnosis: Cramp and spasm[ICD10: R25.2] Diagnosis: Major depressive disorder, single episode, mild[ICD10: F32.0] Alexandra CARROLL [facility] CPT-4: 36561 07/19/2016 ([id number]) OFFICE/OUTPATIENT VISIT EST Diagnosis: Obstructive sleep apnea (adult) (pediatric)[ICD10: G47.33] Diagnosis: Other fatigue[ICD10: R53.83] Diagnosis: Allergic rhinitis due to pollen[ICD10: J30.1] Diagnosis: Headache[ICD10: R51] Alexandra CARROLL [facility] CPT-4: 04961 07/06/2016 ([id number]) OFFICE/OUTPATIENT VISIT EST Diagnosis: Acute recurrent sinusitis, unspecified[ICD10: J01.91] Diagnosis: Allergic rhinitis due to pollen[ICD10: J30.1] Alexandra CARROLL [facility] CPT-4: 41088 06/15/2016 ([id number]) OFFICE/OUTPATIENT VISIT EST Diagnosis: Migraine, unspecified, not intractable, without status migrainosus[ICD10: G43.909] Diagnosis: Allergic rhinitis, unspecified[ICD10: J30.9] Nae CARROLL [facility] CPT-4: 84625 04/09/2016 ([id number]) OFFICE/OUTPATIENT VISIT EST Diagnosis: Hypothyroidism, unspecified[ICD10: E03.9] Diagnosis: Other fatigue[ICD10: R53.83] Diagnosis: Mixed hyperlipidemia[ICD10: E78.2] Diagnosis: Major depressive disorder, single episode, mild[ICD10: F32.0] Alexandra CARROLL DO [facility] CPT-4: 67122 03/17/2016 ([id number]) OFFICE/OUTPATIENT VISIT EST Diagnosis: Insomnia, unspecified[ICD10: G47.00] Diagnosis: Encounter for therapeutic drug level monitoring[ICD10: Z51.81] Nae CARROLL [facility] CPT-4: 09487 11/13/2015 ([id number]) OFFICE/OUTPATIENT VISIT EST Diagnosis: Hematuria, unspecified[ICD10: R31.9] Alexandra CARROLL [facility] CPT-4: 96931 05/05/2015 ([id number]) OFFICE/OUTPATIENT VISIT EST Diagnosis: Other intervertebral disc degeneration, lumbar region[ICD10: M51.36] Diagnosis: Radiculopathy, lumbosacral region[ICD10: M54.17] Alexandra CARROLL [facility] CPT-4: 49493 04/22/2015 ([id number]) OFFICE/OUTPATIENT VISIT EST Diagnosis: Low back pain[ICD10: M54.5] Diagnosis: Recurrent and persistent hematuria with unspecified morphologic changes[ICD10: N02.9] Alexandra CARROLL DO [facility] CPT-4: 27037 03/24/2015 ([id number]) OFFICE/OUTPATIENT VISIT EST Diagnosis: Acute sinusitis, unspecified[ICD10: J01.90] Diagnosis: Headache[ICD10: R51] Diagnosis: Retention of urine, unspecified[ICD10: R33.9] Diagnosis: Hypothyroidism, unspecified[ICD10: E03.9] Alexandra CARROLL [facility] CPT-4: 06206 02/27/2015 ([id number]) PREV VISIT EST AGE 40-64 Diagnosis: ROUTINE MEDICAL EXAM[ICD9: V70.0] Diagnosis: HYPOTHYROIDISM[ICD9: 244.9] Diagnosis: HYPERLIPIDEMIA NEC/NOS[ICD9: 272.4] Alexandra SHAFFERUnique ADALID Ty JACOBONDVIOLETTA SALGUERO [facility] CPT-4: 11981 06/13/2014 ([id number]) OFFICE/OUTPATIENT VISIT EST Diagnosis: CEPHALGIA[ICD9: 784.0] Diagnosis: Nausea[ICD9: 787.02] Shalinisa Romeo SHAFFERLINE Ty JACOBONDVIOLETTA [facility] CPT-4: 04869 04/18/2014 ([id number]) OFFICE/OUTPATIENT VISIT EST Diagnosis: INSOMNIA NOS[ICD9: 780.52] Diagnosis: Complicated grieving[ICD9: 309.0] Alexandradanielle Louise SAri JACOBONDVIOLETTA [facility] CPT-4: 26014 12/05/2013 ([id number]) OFFICE/OUTPATIENT VISIT EST Diagnosis: Muscle twitch[ICD9: 781.0] Diagnosis: ALLERGIC RHINITIS[ICD9: 477.9] Alexandra Danelawandavioletta SHAFFERALEXANDRA Macy CARROLL [facility] CPT-4: 56380 06/05/2013 ([id number]) OFFICE/OUTPATIENT VISIT EST Diagnosis: DEPRESSIVE DISORDER NEC[ICD9: 311] Alexandra QUINTERO S. DANENDER [facility] CPT-4: 84123 05/22/2013 OFFICE/OUTPATIENT VISIT EST Diagnosis: Shingles[ICD9: 053.9] Alexandra Danejames FORDE MacyAri DANENDVIOLETTA [facility] CPT-4: 93852 04/05/2013 ([id number]) OFFICE/OUTPATIENT VISIT EST Diagnosis: DEPRESSIVE DISORDER NEC[ICD9: 311] Alexandra QUINTERO S. DANENDER [facility] CPT-4: 37084 03/26/2013 ([id number]) OFFICE/OUTPATIENT VISIT EST Diagnosis: Complicated grieving[ICD9: 309.0] Alexandra Burlesonvioletta PAM Louise Ty JACOBONDER [facility] CPT-4: 27120 03/06/2013 ([id number]) OFFICE/OUTPATIENT VISIT EST Diagnosis: CEPHALGIA, TENSION[ICD9: 307.81] Diagnosis: MIGRAINE NOS/NOT INTRCBL[ICD9: 346.90] Diagnosis: Cervicalgia[ICD9: 723.1] Alexandra PLATT IZABELLA [facility] CPT-4: 89053 11/29/2012 ([id number]) OFFICE/OUTPATIENT VISIT EST Diagnosis: Jaw pain[ICD9: 784.92] Diagnosis: Shoulder pain[ICD9: 719.41] Diagnosis: Family history of premature coronary artery disease[ICD9: V17.3] Alexandra CARROLL [facility] CPT-4: 65393 09/26/2012 ([id number]) OFFICE/OUTPATIENT VISIT EST Diagnosis: ABDOMINAL PAIN[ICD9: 789.00] Diagnosis: Constipation[ICD9: 564.00] Diagnosis: Hematuria[ICD9: 599.70] Alexandra [facility] CPT-4: 91857 07/11/2012 ([id number]) OFFICE/OUTPATIENT VISIT EST Diagnosis: ANEMIA NOS[ICD9: 285.9] Alexandra [facility]ACOBOND [facility] CPT-4: 62235 02/17/2012 ([id number]) PREV VISIT EST AGE 40-64 Diagnosis: ROUTINE MEDICAL EXAM[ICD9: V70.0] Diagnosis: HYPOTHYROIDISM[ICD9: 244.9] Diagnosis: HYPERLIPIDEMIA NEC/NOS[ICD9: 272.4] Diagnosis: Obstructive sleep apnea[ICD9: 327.23] Alexandra LEWNE Ty CARROLL [facility] CPT-4: 28950 02/02/2012 ([id number]) OFFICE/OUTPATIENT VISIT EST Diagnosis: URINARY TRACT INFECTION[ICD9: 599.0] Alexandra JACOBONDVIOLETTA [facility] CPT-4: 66292 08/27/2011 ([id number]) OFFICE/OUTPATIENT VISIT EST Diagnosis: URINARY TRACT INFECTION[ICD9: 599.0] Diagnosis: ACUTE CYSTITIS[ICD9: 595.0] Alexandra Crawford [facility] CPT-4: 69039 08/17/2011 OFFICE/OUTPATIENT VISIT EST Diagnosis: URINARY TRACT INFECTION[ICD9: 599.0] Steph LOZANO Ty OLS[facility] CPT-4: 15009 10/14/2010 Plan of Care Planned Activity Notes [...] N39.0 07/17/2019 Patient Education: Cipro- [employer] Coupon [id number] [email or web address].[email or web address]/resources/getResource/61/[email or web address].pdf Completed 07/17/2019 Visit Diagnosis Plan: Allergic dermatitis Discussion: Could be numerous things that were given during surgery Continue benadryl Add Prednisone Notify if persists/worsens ICD-9 : 692.9 ICD-10 : L23.9 06/26/2019 Appointment: Alexandra Carroll WPtel: [phone] [facility] 06/26/2019 Patient Education: prednisone- [employer] Coupon [phone] https://www.[email or web address]/resources/getResource/61/[email or web address] Completed 06/26/2019 Visit Diagnosis Plan: Cellulitis of [...] injection a week pre-op and dr. albert's crnp voiced ok to give. ICD-9 : 692.6 ICD-10 : L25.5 05/14/2019 Appointment: Vandana Crowe [address] [place], [place] [id number] 05/14/2019 Patient Education: Levaquin- [employer] Coupon [phone] [id number] https://www.[email or web address].com/samplemd/resources/getResource/61/[email or web address] Completed 05/14/2019 Visit Diagnosis Plan: Ventral hernia Discussion: See s urgery for repair Discussed signs of incarceration or strangulation then is to report to ER ICD-9 : 553.20 ICD-10 : K43.9 04/10/2019 Appointment: Alexandra Carroll WPtel: [address] [place], [place] [phone] US left second message 04/10/19 at 10:20 ACUTE ILLNE SS 04/10/2019 Care Plan: Referral Order SNOMED-CT : 30 [id number] Pending 04/10/2019 Visit Diagnosis Plan: Insomnia Discussion: [...] : D47.3 02/14/2019 Appointment: Alexandra Carroll WPtel: [address] [place], [place] [phone] US FOLLOW UP 02/14/2019 Appointment: Alexandra Carroll WPtel: [address] [place], [place] [phone] US CANCELED 02/12/2019 Visit Diagnosis Plan: Onychomycosis Discussion: Send n ail for culture ICD-9 : 110.1 ICD-10 : B35.1 01/16/2019 Visit Diagnosis Plan: Small bowel obstruction Discussi on: S/P surgery in September with postop complications of wound dehiscence ICD-9 : 560.9 ICD-10 : K56.609 01/16/2019 Appointment: Alexandra Carroll WPtel: [address] [place], [place] [phone] US MEDICATION REVIEW 01/16/2019 Appointment: Alexandra Carroll WPtel: [address] [place], [place] [phone] US CANCELED 12/12/2018 Visit Diagnosis Plan: Diarrhea, unspecified Discussion : Due for updated colonoscopy ICD-9 : 787.91 ICD-10 : R19.7 09/18/2018 Visit Diagnosis Plan: Radiculopathy, lumbosacral regio n Discussion: Had left SI joint injection by Dr. Baig about 2 weeks ago and has fwup with him ICD-9 : 724.4 ICD-10 : M54.17 09/18/2018 Appointment: Alexandra Carroll WPtel: [address] [place], [place] [phone] US PATIENT CONSULT 15 09/18/2018 Care Plan: Referral Order SNOMED-CT : 30 [id number] Pending 09/18/2018 Visit Diagnosis Plan: Other intervertebral [...] : M46.1 08/10/2018 Appointment: Alexandra Carroll WPtel: [address] [place], [place] [phone] US MEDICATION REVIEW 08/10/2018 Care Plan: Referral Order SNOMED-CT : 30 [id number] Pending 08/10/2018 Appointment: Alexandra Carroll WPtel: [address] [place], [place] [phone] US CANCELED 04/17/2018 Visit Diagnosis Plan: Fracture [...] : M54.2 03/27/2018 Appointment: Alexandra Carroll WPtel: [address] [place], [place] [phone] US FOLLOW UP 03/27/2018 Visit Diagnosis Plan: [...] : S42.002D 02/23/2018 Appointment: Alexandra Carroll WPtel: [address] [place], [place] [phone] US FOLLOW UP 02/23/2018 Patient Education: gabapentin- Opt[employer] Coupon [phone] https://[email or web address]/[email or web address]/resources/getResource/61/[email or web address] Completed 02/23/2018 Visit Diagnosis Plan: Fracture of unspec ified part of left clavicle, subsequent encounter for fracture with routine healing Discussion: Hold on PT and do home stretches Trial of gabapentin Recheck 4 weeks ICD-9 : V54.11 ICD-10 : S42.002D 01/24/2018 Appointment: Alexandra Carroll WPtel: [address] [place], [place] [phone] US FOLLOW UP 01/24/2018 Visit Diagnosis Plan: Migraine, unspecif ied, not intractable, without status migrainosus Discussion: Toradol and phenergan given ICD-9 : 346.90 ICD-10 : G43.909 01/17/2018 Appointment: Alexandra Carroll WPtel: [address] [place], [place] [id number] 01/17/2018 Visit Diagnosis Plan: [...] : R31.9 12/29/2017 Appointment: Alexandra Carroll WPtel: [address] [place] [address] ACUTE ILLNESS 12/29/2017 Care Plan: US EXAM PELVIC COMPLETE LOINC : 66606-2 Pending 12/29/2017 Care Plan: ECHO EXAM OF ABDOMEN LOINC : 80797-8 Pending 12/29/2017 Care Plan: Referral Order SNOMED-CT : 30 [id number] Pending 12/29/2017 Visit Diagnosis Plan: Fracture of unspec ified part of left clavicle, subsequent encounter for fracture with routine healing Discussion: Start PT in another 7-14 days Off work for the rest of this week then may return to part-time work on 12/12/17 Fwup in 4 weeks ICD-9 : V54.11 ICD-10 : S42.002D 12/06/2017 Appointment: Alexandra Carroll WPtel: [address] [place], [place] [phone] US FOLLOW UP 12/06/2017 Patient Education: Patient [...] ICD-10 : Z88.1 12/01/2017 Appointment: Vandana Crowe [address] [place], [place] [phone] FOLLOW UP 12/01/2017 Patient Education: Patient Medication [...] ICD-10 : Z88.1 11/30/2017 Appointment: Vandana Crowe [address] [place], [place] [address]a [id number] 11/30/2017 Patient Education: Patient Medication [...] : L03.113 11/29/2017 Appointment: [id number] [facility] 11/29/2017 Patient Education: Patient Medication [...] ICD-10 : L03.113 11/28/2017 Appointment: Vandana Crowe [address] [place], [place] [id number] ACUTE ILLNESS 11/28/2017 Patient Education: Patient Medication [...] Appointment: Alexandra Carroll WPtel: [phone] [id number] US MEDICATION REVIEW 11/17/2017 Patient Education: Patient Medication Summary Completed 11/17/2017 Care Plan: Referral Order SNOMED-CT : 30 [id number] Pending 11/17/2017 Patient Education: Patient Medication Summary Completed 10/12/2017 Care Plan: MRI LUMBAR SPINE W/O DYE LOIN C : 19157-0 Pending 10/12/2017 Care Plan: X-RAY EXAM L-S SPINE 2/3 VWS LOINC : 29368-8 Pending 10/11/2017 Visit Diagnosis Plan: Other retention [...] medrol pack to start tomorrow. [facility] with inversion table. instructed patient to go to ED immediately if she develops any incontinence with bowel or bladder. patient verbalized understanding. if no improvement, will need updated MRI and referral to surgeon. ICD-9 : 724.4 ICD-10 : M54.17 10/10/2017 Appointment: Vandana Crowe [address] [place], [place] [phone] ACUTE ILLNESS 10/10/2017 Patient Education: Patient Medication Summary Completed 10/10/2017 Appointment: Vandana Crowe [address] [place], [place] [phone] ACUTE ILLNESS 08/01/2017 Visit Diagnosis Plan: Other intervertebral disc degene ration, lumbar region Discussion: Core strengtheing and inversion table and if worsening will need updated MRI ICD-9 : 722.52 ICD-10 : M51.36 06/22/2017 Visit Diagnosis Plan: Encounter for gene [facility] adult medical examination without abnormal findings Discussion: Lab dis ussed Follow Up: 6 months ICD-9 : V70.0 ICD-10 : Z00.00 06/22/2017 Appointment: Alexandra Carroll WPtel: [phone] [facility] Annual Well Visit 06/22/2017 Patient Education: Patient Medication Summary Completed 06/22/2017 Patient Education: Patient Medication Summary Completed 06/16/2017 Care Plan: COMPREH[place] METABOLIC PANEL [place] : 73908-5 Pending 06/16/2017 Care Plan: ASSAY THYROID STIM HORMONE Pen ding 06/16/2017 Care Plan: ASSAY OF FREE THYROXINE Pendin g 06/16/2017 Care Plan: LIPID PANEL LOINC : 79176-4 Pending 06/16/2017 Care Plan: CBC Pending 06/16/2017 [...] Rest, Fluids... 03/28/2017 Appointment: Alexandra Carroll WPtel: [facility] ACUTE ILLNESS 03/28/2017 Patient Education: Patient Medication Summary Completed 03/28/2017 Visit Diagnosis Plan: Acute sinusitis, unspecified Dis cussion: cefdinir and medrol dose pack prescribed to be taken as directed. tylenol/ibuprofen as needed. educated on importance of taking singulair or zyrtec daily to prevent worsening symptoms. keep hydrated. ICD-9 : 461.9 ICD-10 : J01.90 02/16/2017 Appointment: Vandana Crowe [address] [place], [place] [id number] ACUTE ILLNESS 02/16/2017 Patient Education: Patient Medication Summary Completed 02/16/2017 Appointment: Alexandra Carroll WPtel: [address] [place] [address] [place] INJECTION 11/02/2016 Patient Education: Patient Medication Summary Completed 11/02/2016 Visit Diagnosis Plan: Pain in thoracic spine Discussio n: Increase flexeril to 10mg po BID Add Mobic 15mg po daily Towel stretch May see chiropractor to adjust ribs Notify if persists or worsening ICD-9 : 724.1 ICD-10 : M54.6 09/06/2016 Appointment: Alexandra Carroll WPtel: [address] [place] [address] ACUTE ILLNESS 09/06/2016 Patient Education: Patient Medication Summary Completed 09/06/2016 Visit Plan: Due to hx, ERx Cefdinir and Prednisone (discussed risks for both) Given bottle for nasal saline rinses Tylenol/Ibuprofen prn pain/fever Fluids/rest Discussed s/s of worsening, RTC if no improvement 08/16/2016 Appointment: Vidya Manuel WPtel: [address] [place] [address] ACUTE ILLNESS 08/16/2016 Patient Education: Patient Medication [...] Visit Diagnosis Plan: Primary insomnia Discussion: Con tinshiloh xanax at current dose--patient has been trying to decrease dose ICD-9 : 780.52 ICD-10 : F51.01 07/19/2016 Appointment: Alexandra Carroll WPtel[facility] 07/15 confirmed`sl FOLLOW UP 07/19/2016 Patient Education: [...] : G47.33 07/06/2016 Appointment: Alexandra Carroll WPtel: [facility]4 [facility] 07/05 confirmed-sp FOLLOW UP 07/06/2016 Patient [...] : J30.1 06/15/2016 Appointment: Alexandra Carroll WPtel: [facility] 06/14 lm ~sl ACUTE ILLNESS 06/15/2016 Patient Education: Patient Medication Summary Completed 06/15/2016 Visit Diagnosis Plan: Migraine, unspecif ied, not intractable, without status migrainosus Discussion: Injection as above Drink ple nty of water No driving x 6 hours Rest No OTC nsaids today Follow up PRN Refill called of claritin-d ICD-9 : 346.90 ICD-10 : G43.909 04/09/2016 Appointment: Nae Mckay [address] [place], [place] [id number] ACUTE ILLNESS 04/09/2016 Patient Education: Patient Medication [...] : E78.2 03/17/2016 Appointment: Alexandra Carroll WPtel: [address] [place], [place] [phone] 03/16 nvm~sl 03/17 confirmed`sl FOLLOW UP 0 03/17/2016 Patient Education: Patient Medication Summary Completed 03/17/2016 Appointment: Alexandra Carroll WPtel: [address] [place], [place] [phone] [place] 03/11 lm~sl 03/15lm `sl 03/15 confirmed`sl FOLLOW U P 03/15/2016 Visit Plan: Discussed labeled indication s for benzos. Since xanax is not labeled for sleep and she has never tried anything else, encouraged her to trial restoril(another benzo) since it is labeled for sleep. She agrees with this trial. Rx called to [facility] after cost comparison which is nearly the same robert. If working well, continue the x9twabv office visits. Call if not working well, and will restart xanax at for sleep. 11/13/2015 Appointment: Nae Mckay [address] [place], [place] [phone] 11/11 confirmed~sl FOLLOW UP 11/13/2015 Patient Education: Patient Medication Summary Completed 11/13/2015 Appointment: Alexandra Carroll WPtel: [address] [place], [place] [phone] Suture Removal 06/23/2015 Patient Education: Patient Medication Summary Completed 06/23/2015 Visit Plan: Removal of lesion above usin g 3-0 punch biopsy Return in 10 days for suture removal 06/12/2015 Appointment: Alexandra Carroll WPtel: [address] [place], [place] [phone] 06/10 lm ~sl ACUTE ILLNESS 06/12/2015 Patient Education: Patient Medication Summary Completed 06/12/2015 Referral: [facility] [place] [address] [place] Schedule patient around lunch time and 3 weeks from 04/22/2015 ~ Spoke with Kiesha at Dr. Sandoval [facility] and 04/24/15 and scheduled the patient ~sl 04/24/15 Patient is informed~ 06/03 Patient canceled the appointment ~ Patient did not show up for scheduled appointment-sp Appoint ment Requested 05/21/2015 Appointment: Alexandra Carroll WPtel: [address] [place], [place] [id number] UA 05/05/2015 Patient Education: Patient Medication Summary Completed 05/05/2015 Visit Plan: Starts PT today Schedule wit h Dr. Garcia for epidural CT abdomen/pelvis results discussed Sees SULFONATOR OPERATOR in April and will get checked then 04/22/2015 Appointment: Alexandra Carroll WPtel: [address] [place], [place] [phone] 04/21 confirmed~lb ACUTE ILLNESS 04/22/2015 Patient Education: Patient Medication Summary Completed 04/22/2015 Referral: Lincoln Hernandez WPtel: [address] [place] [address] Referral Initiated 04/10/2015 Patient Education: Patient Medication Summary Completed 04/09/2015 Visit Plan: Start with lumosacral spine x-ray--will likely need MRI of L/S spine x-ray Needs urology--has had to have bladder stretched in past Tivorbex 03/24/2015 Appointment: Alexandra Carroll WPtel: [facility] 03/21/15 appt confirmed cn ACUTE ILLNESS 03/24 Patient Education: Patient Medication Summary Completed 03/24/2015 Visit Plan: Saline nasal flushes prn. Ty lenol/Motrin prn headache. Notify if persists/symptoms worsening. Cefuroxime to cover both sinuses and UTI Culture urine Check lab 02/27/2015 Appointment: Alexandra Carroll WPtel: [address] [place], [place] [phone] 02/26/15 vm to confirm and need new insu meri on file is inactive cn....02/27/15 appt confirmed cn ACUTE ILLNESS 015 Patient Education: Patient Medication Summary Completed 02/27/2015 Visit Plan: Lab discussed Stop simvastat in Check lipids in 6mos Continue all other meds at current dose Had Pap and Mammo 3 weeks ago 06/13/2014 Appointment: Alexandra Carroll WPtel: [address] [place], [place] [phone] Annual Well Visit 06/13/2014 Patient Education: Patient Medication Summary Completed 06/13/2014 Appointment: Shalini Walters WPtel: [address] [place], [place] [phone] ACUTE ILLNESS 04/18/2014 Patient Education: Patient Medication Summary Completed 04/18/2014 Visit Plan: Check lab in May then fwup Can try decreasing xanax to 1mg q HS with melatonin 5-10mg q HS 12/05/2013 Appointment: Alexandra Carroll WPtel: [address] [place], [place] [phone] 12/04 FOLLOW UP 12/05/2013 Patient Education: Patient Medication Summary Completed 12/05/2013 Appointment: Alexandra Carroll WPtel: [address] [place], [place] [phone] FOLLOW UP 06/05/2013 Patient Education: Patient Medication Summary Completed 06/05/2013 Appointment: Alexandra Carroll WPtel: [address] [place] [address] FOLLOW UP 05/22/2013 Patient Education: Patient Medication Summary Completed 05/22/2013 Visit Plan: Zovirax for 2wks Notify if p ain worsens or if persists 04/05/2013 Appointment: Alexandra Carroll WPtel: [address] [place] [address] ACUTE ILLNESS 04/05/2013 Patient Education: Patient Medication Summary Completed 04/05/2013 Visit Plan: Keep Wellbutrin at current d ose Pt did see research study assistant for counseling 03/26/2013 Appointment: Alexandra Carroll WPtel: [address] [place] [address] ACUTE ILLNESS 03/26/2013 Patient Education: Patient Medication Summary Completed 03/26/2013 Visit Plan: Continue citalopram at curre nt dose Increase xanax to 1-2mg q HS for sleep Add Wellbutrin Sr 100mg q AM Start Counseling 03/06/2013 Appointment: Alexandra Carroll WPtel: [address] [place] [address] ACUTE ILLNESS 03/06/2013 Patient Education: Patient Medication Summary Completed 03/06/2013 Appointment: Alexandra Carroll WPtel: [address] [place] [address] ACUTE ILLNESS 11/29/2012 Patient Education: Patient Medication Summary Completed 11/29/2012 Appointment: Alexandra Carroll WPtel: [address] [place] [address] ACUTE ILLNESS 09/26/2012 Patient Education: Patient Medication Summary Completed 09/26/2012 Appointment: Alexandra Carroll WPtel: [address] [place] [address] ACUTE ILLNESS 07/11/2012 Patient Education: Patient Medication Summary Completed 07/11/2012 Appointment: Alexandra Carroll WPtel: [address] [place], [place] [phone] [place] LAB 02/17/2012 Patient Education: Patient Medication Summary Completed 02/17/2012 Visit Plan: Check fasting lab Start annie y ca with Vit D Cont CPAP Mammo up-to-date Hemoccult card given 02/02/2012 Appointment: Alexandra Carroll WPtel: [address] [place] [address] PHYSICAL 02/02/2012 Patient Education: Patient Medication Summary Completed 02/02/2012 Appointment: Alexandra Carroll WPtel: [address] [place] [address] UA 08/27/2011 Patient Education: Patient Medication Summary Completed 08/27/2011 Visit Plan: Levaquin and Diflucan for 1w k Then cipro QOD for prophylaxis 08/17/2011 Appointment: Alexandra Carroll WPtel: [address] [place] [address] FOLLOW UP 08/17/2011 Patient Education: Patient Medication Summary Completed 08/17/2011 Appointment: Alexandra Carroll WPtel: [address] [place] [address] UA 12/28/2010 Patient Education: Patient Medication Summary Completed 12/28/2010 Appointment: Alexandra Carroll WPtel: [address] [place] [address] 11/09/2010 Patient Education: Patient Medication Summary Completed 11/09/2010 Appointment: Alexandra Carroll WPtel: [address] [place] [address] 10/29/2010 Patient Education: Patient Medication Summary Completed 10/29/2010 Appointment: Steph Bowen WPtel: [address] [place] [address] ACUTE ILLNESS 10/14/2010 Patient Education: Patient Medication Summary Completed 10/14/2010 Referral: Florian Baig WPtel: [facility] [address], [facility] 1 [id number] [place] Referral Initiated Referral: Paulo Albert WPtel: [phone] [id number] [place] Referral Appointment Requested Referral: Luis Enrique Jasso WPtel: [facility] [address], [facility] 1 [id number] [place] Referral Appointment Requested Referral: Florian Baig WPtel: [facility] [address] 1 [id number] [place] Referral Appointment Requested Referral: Caleb Glaser WPtel: [address] [id number] [place] Referral Appointment Requested Referral: Florian Baig WPtel: [facility] [address], [facility] 1 [id number] [place] Referral Initiated Referral: Florian Baig WPtel: [facility] [address], [facility] 1 [id number] [place] Referral Appointment Requested Instructions Comment . [...] same robert. If working well, continue the [id number] office visits. Call if not working well, and will restart xanax at HS for sleep. . Removal of lesion above using 3-0 punc h biopsy Return in 10 days for suture removal . Starts PT today Schedule with Dr. Garcia for epidural CT abdomen/pelvis results discussed Sees SULFONATOR OPERATOR in April and will get checked then [...]
--- OUTSIDE RECORDS SUMMARY | 2019-09-02 00:19 | XMS REPORT | CCD ---
Author Author Ilda Bowen APRN Organization [facility] Address [address] [place] [address] Phone Care Team Providers Care Nursing Student Name Role Phone Alexandra Carroll D.O., PP Unavailable CCM Unavailable Summary Purpose Interface Exchange Insurance Providers Payer name Policy type / Coverage type Covered alliance party ID Effective Begin Date Effective End Date WPS MEDICARE PART B [place] Medicare Part B [id number] 2019 Unknown [employer] [place] Medicare Part B [id number] Unknown Family History Family History data not found Social History Social History Element Codes Description Effective Dates Tobacco history SNOMED CT: 995344088 Nonsmoker 10/14/2010 Allergies, Adverse Reactions, Alerts Substance Reaction Codes Entered Date Inactivated Date Status MORPHINE SULFATE RxNorm: 2293260 10/14/2010 No Inactive Da te Active CEPHALOSPORINS [...] Fill Instructions cyclobenzaprine 10 mg tablet RxNorm: 363675 Tablet(s) Oral as neede d 07/17/2019 No Stop Date Active Cipro 500 mg tablet RxNorm: 603589 1 Tablet(s) Oral two times a day 07/17/2019 07/22/2019 Active Xanax 1 mg tablet RxNorm: 893755 1-2 Tablet(s) Oral e very night at bedtime as needed for sleep 07/10/2019 08/08/2019 Active Generic For:LAVELLE AX 1MG 10/11/2016 11:15:13 AM prednisone 20 mg tablet RxNorm: 619949 1 Tablet(s) Oral two harlan es a day 06/26/2019 07/03/2019 Inactive Amabelz 1 mg-0.5 mg tablet RxNorm: 2322241 1 Tablet(s) Oral QD 05/3007/17/2019 Inactive Trazadone 150 mg Tablet RxNorm: 1 Tablet(s) Oral every n ight at bedtime 05/14/2019 No Stop Date Active Levaquin 500 mg tablet RxNorm: 576999 1 Tablet(s) Oral QD 05/14/2019 05/21/2019 Inactive Xanax 1 mg tablet RxNorm: 508633 1-2 Tablet(s) Oral e very night at bedtime as needed for sleep 05/03/2019 06/01/2019 Inactive Generic For:LAVELLE AX 1MG 10/11/2016 11:15:13 AM cyclobenzaprine 10 mg tablet RxNorm: 659605 1 Tablet(s) Oral three times a day as needed for muscle spasm 02/12/2019 02/12/2019 Inactive Xanax 1 mg tablet RxNorm: 680529 1-2 Tablet(s) Oral e very night at bedtime as needed for sleep 02/09/2019 03/10/2019 Inactive Generic For:LAVELLE AX 1MG 10/11/2016 11:15:13 AM Xanax 1 mg tablet RxNorm: 371724 1-2 Tablet(s) Oral e very night at bedtime as needed for sleep 01/22/2019 02/08/2019 Inactive Generic For:LAVELLE AX 1MG 10/11/2016 11:15:13 AM Celexa 40 mg tablet RxNorm: 606337 1 Tablet(s) Oral QD 01/17/2019 Active - First Attempt Ref: [id number] Xanax 1 mg tablet RxNorm: 454531 1 Tablet(s) Oral every night a t bedtime 01/08/2019 01/21/2019 Inactive levothyroxine 88 mcg tablet RxNorm: 872936 TAKE 1 TABLET BY NINA TH DAILY 12/19/2018 06/16/2019 Inactive - First Attempt Ref: [id number] Xanax 1 mg tablet RxNorm: 601924 1 Tablet(s) Oral every night a t bedtime 12/06/2018 01/05/2019 Inactive Singulair 10 mg tablet RxNorm: 461753 1 Tablet(s) Oral every ni ght at bedtime 11/23/2018 11/17/2019 Active - First Attempt Ref: [id number] Celexa 40 mg tablet RxNorm: 587765 1 Tablet(s) Oral 11/23/20182018 Inactive - First Attempt Ref: [id number] cyclobenzaprine 10 mg tablet RxNorm: 459984 1 Tablet(s) Oral three times a day as needed for muscle spasm 11/23/2018 02/11/2019 Inactive Xanax 1 mg tablet RxNorm: 209191 1 Tablet(s) PO QHS 11/06/20182018 Inactive Xanax 1 mg tablet RxNorm: 690378 1 Tablet(s) PO QHS 09/26/20182018 Inactive Singulair 10 mg tablet RxNorm: 048781 TAKE 1 TABLET BY MOUTH EVERY NIGHT AT BEDTIME 08/16/2018 11/22/2018 Inactive - First Attempt Ref: [id number] Xanax 1 mg tablet RxNorm: 223632 1 Tablet(s) PO QHS 08/01/20182018 Inactive levothyroxine 88 mcg tablet RxNorm: 238340 TAKE 1 TABLET BY NINA TH DAILY 07/31/2018 12/18/2018 Inactive - First Attempt Ref: [id number] Celexa 40 mg tablet RxNorm: 995404 TAKE 1 TABLET BY MOUTH DAILY 04/201811/22/2018 Inactive - First Attempt Ref: [id number] 54 bupropion HCl SR 100 mg tablet,12 hr sustained-release RxNor m: 580359 1 Tablet(s) PO BID 07/12/2018 07/06/2019 Inactive - Ref: [id number] 7 Claritin-D 24 Hour 10 mg-240 mg tablet,extended release RxNo rm: 1787176 1 Tablet(s) PO QD 06/29/2018 2018 Inactive Claritin-D 24 Hour 10 mg-240 mg tablet,extended release RxNo rm: 5744421 1 Tablet(s) PO QD 06/29/2018 2018 Inactive Xanax 1 mg tablet RxNorm: 765676 1-2 Tablet(s) PO QHS as needed for sleep 05/26/2018 06/23/2018 Inactive Generic For:XANAX 1M G 10/11/2016 11:15:13 AM Xanax 1 mg tablet RxNorm: 058675 1-2 Tablet(s) PO QHS as needed for sleep 03/28/2018 05/25/2018 Inactive Generic For:XANAX 1M G 10/11/2016 11:15:13 AM Macrobid 100 mg capsule RxNorm: 705746 1 Capsule(s) PO BID 03/27/19 19 03/31/2018 Inactive gabapentin 300 mg capsule RxNorm: 099461 1 Capsule(s) PO QHS 201703/26/2018 Inactive Claritin-D 24 Hour 10 mg-240 mg tablet,extended release RxNo rm: 0681181 1 Tablet(s) PO QD 01/26/2018 02/24/2018 Inactive gabapentin 100 mg capsule RxNorm: 012661 1 Capsule(s) P O QHS for 1 week then 2 po q HS for 2 weeks then 3 po q HS 01/24/2018 03/26/2018 Inactive Xanax 1 mg tablet RxNorm: 774791 1-2 Tablet(s) PO QHS as needed for sleep 01/24/2018 03/24/2018 Inactive Generic For:XANAX 1M G 10/11/2016 11:15:13 AM prednisone 20 mg tablet RxNorm: 257733 1 Tablet(s) PO T ID for 3 days then 1 po BID for 3 days then one daily for 3 days 12/29/2017 03/26/2018 Inactiv e prednisone 20 mg tablet RxNorm: 083391 3 Tablet(s) PO T ID for 3 days then 1 po BID for 3 days then one daily for 3 days 12/29/2017 12/29/2017 Inactiv e Macrobid 100 mg capsule RxNorm: 789092 1 Capsule(s) PO BID 12/30/19 18 01/02/2018 Inactive Xanax 1 mg tablet RxNorm: 896592 1-2 Tablet(s) PO QHS as needed for sleep 12/28/2017 01/23/2018 Inactive Generic For:XANAX 1M G 10/11/2016 11:15:13 AM Medrol (Walter) 4 mg tablets in a dose pack RxNorm: 785423 Tablet(s) PO take as directed 12/01/2017 03/26/2018 Inactive Keflex 750 mg capsule RxNorm: 794917 1 Capsule(s) PO BID 12/01/2017 1 Inactive clindamycin HCl 300 mg capsule RxNorm: 103898 2 Capsule(s) PO TID 1 12/08/2017 Inactive Xanax 1 mg tablet RxNorm: 301550 1-2 Tablet(s) PO QHS as needed for sleep 11/28/2017 12/27/2017 Inactive Generic For:XANAX 1M G 10/11/2016 11:15:13 AM mupirocin 2 % topical ointment RxNorm: 211932 1 Application OTIC BI D 11/28/2017 08/09/2018 Inactive Xanax 1 mg tablet RxNorm: 904485 1-2 Tablet(s) PO QHS as needed for sleep 10/27/2017 11/25/2017 Inactive Generic For:XANAX 1M G 10/11/2016 11:15:13 AM Macrobid 100 mg capsule RxNorm: 224433 1 Capsule(s) PO BID 10/11/19 18 10/16/2017 Inactive Medrol (Walter) 4 mg tablets in a dose pack RxNorm: 303251 Tablet(s) PO take as directed 10/10/2017 11/16/2017 Inactive Xanax 1 mg tablet RxNorm: 212182 1-2 Tablet(s) PO QHS as needed for sleep 09/28/2017 10/26/2017 Inactive Generic For:XANAX 1M G 10/11/2016 11:15:13 AM Xanax 1 mg tablet RxNorm: 375501 1-2 Tablet(s) PO QHS as needed for sleep 08/30/2017 09/27/2017 Inactive Generic For:XANAX 1M G 10/11/2016 11:15:13 AM Xanax 1 mg tablet RxNorm: 609978 1-2 Tablet(s) PO QHS as needed for sleep 08/30/2017 08/29/2017 Inactive Generic For:XANAX 1M G 10/11/2016 11:15:13 AM Xanax 1 mg tablet RxNorm: 994762 1-2 Tablet(s) PO QHS as needed for sleep 08/01/2017 08/29/2017 Inactive Generic For:XANAX 1M G 10/11/2016 11:15:13 AM Xanax 1 mg tablet RxNorm: 140796 1-2 Tablet(s) PO QHS as needed for sleep 06/29/2017 2017 Inactive Generic For:XANAX 1M G 10/11/2016 11:15:13 AM Claritin-D 24 Hour 10 mg-240 mg tablet,extended release RxNo rm: 2287710 1 Tablet(s) PO QD 06/29/2017 2017 Inactive levothyroxine 88 mcg tablet RxNorm: 645971 1 Tablet(s) PO QD 201709/10/2017 Inactive Xanax 1 mg tablet RxNorm: 378558 1-2 Tablet(s) PO QHS as needed for sleep 05/26/2017 06/28/2017 Inactive Generic For:XANAX 1M G 10/11/2016 11:15:13 AM Claritin-D 24 Hour 10 mg-240 mg tablet,extended release RxNo rm: 6115200 1 Tablet(s) PO QD 05/26/2017 06/24/2017 Inactive bupropion HCl SR 100 mg tablet,12 hr sustained-release RxNor m: 410407 Tablet(s) Take 1 tablet by mouth two times daily 04/06/2017 12/31/2017 Inactive - Ref: [id number] Xanax 1 mg tablet RxNorm: 930890 1-2 Tablet(s) PO QHS as needed for sleep 03/24/2017 05/22/2017 Inactive Generic For:XANAX 1M G 10/11/2016 11:15:13 AM Medrol (Walter) 4 mg tablets in a dose pack RxNorm: 608283 Tablet(s) P O 02/16/2017 03/27/2017 Inactive Xanax 1 mg tablet RxNorm: 855357 Tablet(s) TAKE ONE T O TWO TABLETS BY MOUTH AT BEDTIME NEEDED 02/16/2017 03/17/2017 Inactive Generic For:XA NAX 1MG 10/11/2016 11:15:13 AM Claritin-D 24 Hour 10 mg-240 mg tablet,extended release RxNo rm: 9802924 1 Tablet(s) PO QD 02/16/2017 04/16/2017 Inactive cefdinir 300 mg capsule RxNorm: 673082 2 Capsule(s) PO QD 02/16/2017 02/25/2017 Inactive Celexa 40 mg tablet RxNorm: 081711 Tablet(s) Take 1 tablet by m outh daily 12/23/2016 09/18/2017 Inactive - Ref: [id number] Xanax 1 mg tablet RxNorm: 832134 Tablet(s) TAKE ONE T O TWO TABLETS BY MOUTH AT BEDTIME NEEDED 12/16/2016 01/14/2017 Inactive Generic For:XA NAX 1MG 10/11/2016 11:15:13 AM Xanax 1 mg tablet RxNorm: 711233 Tablet(s) TAKE ONE T O TWO TABLETS BY MOUTH AT BEDTIME NEEDED 11/18/2016 12/15/2016 Inactive Generic For:XA NAX 1MG 10/11/2016 11:15:13 AM Xanax 1 mg tablet RxNorm: 109428 TAKE ONE TO TWO TABL ETS BY MOUTH AT BEDTIME NEEDED 10/11/2016 11/17/2016 Inactive Generic For:XANA X 1MG 10/11/2016 11:15:13 AM Mobic 15 mg tablet RxNorm: 810413 1 Tablet(s) PO QD 09/06/20162016 Inactive Claritin-D 24 Hour 10 mg-240 mg tablet,extended release RxNo rm: 4290098 1 Tablet(s) PO QD 09/02/2016 11/30/2016 Inactive prednisone 20 mg tablet RxNorm: 470538 1 Tablet(s) PO T ID for 3 days then 1 po BID for 3 days then one daily for 3 days 08/16/2016 03/27/2017 Inactiv e cefdinir 300 mg capsule RxNorm: 282718 2 Capsule(s) PO QD 08/16/2016 09/05/2016 Inactive Xanax 1 mg tablet RxNorm: 660783 TAKE ONE TO TWO TABL ETS BY MOUTH AT BEDTIME NEEDED 08/05/2016 10/11/2016 Inactive Generic For:XANA X 1MG 08/05/2016 2:27:03 PM08/04/2016 4:15:22 PM Singulair 10 mg tablet RxNorm: 794596 1 Tablet(s) PO QHS 07/06/2016 0 09/03/2016 Inactive prednisone 20 mg tablet RxNorm: 574949 1 Tablet(s) PO T ID for 3 days then 1 po BID for 3 days then one daily for 3 days 06/15/2016 07/05/2016 Inactiv e Singulair 10 mg tablet RxNorm: 948313 1 Tablet(s) PO QHS 06/15/2016 0 07/05/2016 Inactive cefdinir 300 mg capsule RxNorm: 617365 2 Capsule(s) PO QD 06/15/2016 07/05/2016 Inactive Xanax 1 mg tablet RxNorm: 523136 1-2 Tablet(s) PO QHS 05/21/201610/2016 Inactive Claritin-D 24 Hour 10 mg-240 mg tablet,extended release RxNo rm: 1776767 1 Tablet(s) PO QD 04/09/2016 07/07/2016 Inactive Xanax 1 mg tablet RxNorm: 696552 1-2 Tablet(s) PO QHS 03/23/201604/29 Inactive levothyroxine 88 mcg tablet RxNorm: 764584 1 Tablet(s) PO QD 201606/13/2017 Inactive bupropion HCl SR 100 mg tablet,sustained-release RxNorm: 993 503 Take 1 tablet by mouth two times daily 03/15/2016 12/09/2016 Inactive - Ref: 20 [id number] Celexa 40 mg tablet RxNorm: 818391 Take 1 tablet by mouth daily 12/23/2016 Inactive - Ref: 710690084 Xanax 1 mg tablet RxNorm: 421681 1-2 Tablet(s) PO QHS 02/17/201603/01 Inactive levothyroxine 88 mcg tablet RxNorm: 230125 1 Tablet(s) PO QD 201502/22/2016 Inactive Xanax 1 mg tablet RxNorm: 930205 1-2 Tablet(s) PO QHS 11/25/201511/29 Inactive levothyroxine 88 mcg tablet RxNorm: 880488 1 Tablet(s) PO QD 201511/24/2015 Inactive temazepam 30 mg capsule RxNorm: 617909 1 Capsule(s) PO QHS 11/13/19 16 11/24/2015 Inactive Xanax 1 mg tablet RxNorm: 432753 1-2 Tablet(s) PO QHS 09/15/201510/29 Inactive Celexa 40 mg tablet RxNorm: 302331 1 Tablet(s) PO QD 1 Tablet(s ) PO QD 09/10/2015 09/16/2015 Inactive bupropion HCl SR 100 mg tablet,sustained-release RxNorm: 993 503 1 Tablet(s) PO BID 09/10/2015 09/23/2015 Inactive Xanax 1 mg tablet RxNorm: 566718 1-2 Tablet(s) PO QHS 09/10/201508/28 Inactive Xanax 1 mg tablet RxNorm: 359883 1-2 Tablet(s) PO QHS 08/11/201508/28 Inactive cyclobenzaprine 10 mg tablet RxNorm: 135160 1 Tablet(s) PO TID prn spasm 07/09/2015 11/23/2018 Inactive Celexa 40 mg tablet RxNorm: 750857 1 Tablet(s) PO QD 06/06/201508/03 Inactive Xanax 1 mg tablet RxNorm: 972170 1-2 Tablet(s) PO QHS 06/04/201505/2015 Inactive levothyroxine 88 mcg tablet RxNorm: 037937 1 Tablet(s) PO QD 201511/23/2015 Inactive Ceftin 500 mg tablet RxNorm: 895216 1 Tablet(s) PO BID 05/05/2015 Inactive Ceftin 500 mg tablet RxNorm: 247520 1 Tablet(s) PO BID 05/05/201507/2015 Inactive meloxicam 15 mg tablet RxNorm: 561074 1 Tablet(s) PO QD 04/16/2015 Inactive meloxicam 15 mg tablet RxNorm: 564357 1 Tablet(s) PO QD 04/16/2015 Inactive diclofenac sodium 75 mg tablet,delayed release RxNorm: 64083 6 1 Tablet(s) PO BID 04/04/2015 04/15/2015 Inactive diclofenac sodium 75 mg tablet,delayed release RxNorm: 84069 6 1 Tablet(s) PO BID 04/04/2015 04/03/2015 Inactive Tivorbex 40 mg capsule RxNorm: 9023446 1 Capsule(s) PO TID 03/24/19 16 04/02/2015 Inactive bupropion HCl SR 100 mg tablet,sustained-release RxNorm: 993 503 1 Tablet(s) PO BID 03/11/2015 09/06/2015 Inactive cyclobenzaprine 10 mg tablet RxNorm: 546969 1 Tablet(s) PO TID prn spasm 03/11/2015 07/08/2015 Inactive levothyroxine 88 mcg tablet RxNorm: 216766 1 Tablet(s) PO QD 201405/27/2015 Inactive Claritin-D 24 Hour 10 mg-240 mg tablet,extended release RxNo rm: 6915451 1 Tablet(s) PO QD 02/27/2015 05/27/2015 Inactive cefuroxime axetil 500 mg tablet RxNorm: 652243 1 Tablet(s) PO BID 1 03/12/2015 Inactive Celexa 40 mg tablet RxNorm: 583093 1 Tablet(s) PO QD 02/05/201504/05 Inactive levothyroxine 75 mcg tablet RxNorm: 982528 1 Tablet(s) PO QD 201402/26/2015 Inactive Celexa 40 mg tablet RxNorm: 479021 1 Tablet(s) PO QD 10/09/201402/04 Inactive Activella 1 mg-0.5 mg tablet RxNorm: 8781291 1 Tablet(s) PO QD 08/2802/26/2015 Inactive bupropion HCl SR 100 mg tablet,sustained-release RxNorm: 993 503 1 Tablet(s) PO BID 09/12/2014 03/10/2015 Inactive levothyroxine 75 mcg tablet RxNorm: 811263 1 Tablet(s) PO QD 201412/09/2014 Inactive levothyroxine 75 mcg tablet RxNorm: 851791 1 Tablet(s) PO QD 201409/11/2014 Inactive Celexa 40 mg tablet RxNorm: 802769 1 Tablet(s) PO QD 08/12/201410/08 Inactive Xanax 1 mg tablet RxNorm: 326806 1-2 Tablet(s) PO QHS 08/12/201409/28 Inactive Claritin-D 24 Hour 10 mg-240 mg tablet,extended release RxNo rm: 1795191 1 Tablet(s) PO QD 06/13/2014 09/10/2014 Inactive cyclobenzaprine 10 mg tablet RxNorm: 611403 1 Tablet(s) PO TID prn spasm 06/12/2014 02/26/2015 Inactive Xanax 1 mg tablet RxNorm: 606347 1-2 Tablet(s) PO QHS 05/09/201406/28 Inactive levothyroxine 75 mcg tablet RxNorm: 906975 1 Tablet(s) PO QD 201407/08/2014 Inactive cephalexin 500 mg capsule RxNorm: 462757 1 Capsule(s) PO QOD 201402/26/2015 Inactive simvastatin 10 mg tablet RxNorm: 144301 1 Tablet(s) PO QHS 04/10/19 15 06/12/2014 Inactive Xanax 1 mg tablet RxNorm: 426381 1-2 Tablet(s) PO QHS 04/10/201404/28 Inactive levothyroxine 75 mcg tablet RxNorm: 186315 1 Tablet(s) PO QD 201404/09/2014 Inactive levothyroxine 75 mcg capsule RxNorm: 547537 1 Capsule(s) PO QD 03/3104/10/2014 Inactive Activella 1 mg-0.5 mg tablet RxNorm: 7497150 1 Tablet(s) PO QD 03/0109/11/2014 Inactive bupropion HCl SR 100 mg tablet,sustained-release RxNorm: 993 503 1 Tablet(s) PO BID 03/04/2014 08/30/2014 Inactive Activella 1 mg-0.5 mg tablet RxNorm: 7933516 1 Tablet(s) PO QD 01/2803/18/2014 Inactive levothyroxine 75 mcg capsule RxNorm: 833643 1 Capsule(s) PO QD 12/2904/08/2014 Inactive simvastatin 10 mg tablet RxNorm: 093143 1 Tablet(s) PO QHS 01/10/20 14 04/08/2014 Inactive cyclobenzaprine 10 mg tablet RxNorm: 733554 1 Tablet(s) PO TID prn spasm 01/09/2014 04/08/2014 Inactive Cipro 500 mg tablet RxNorm: 878764 1 Tablet(s) PO BID 12/25/201304/2013 Inactive Cipro 500 mg tablet RxNorm: 072953 1 Tablet(s) PO BID 12/25/201311/29 Inactive bupropion HCl SR 100 mg tablet,sustained-release RxNorm: 993 503 1 Tablet(s) PO QAM 12/11/2013 03/03/2014 Inactive cephalexin 500 mg capsule RxNorm: 941715 1 Capsule(s) PO QOD 201304/09/2014 Inactive Xanax 1 mg tablet RxNorm: 105709 1-2 Tablet(s) PO QHS 10/15/201310/29 Inactive simvastatin 10 mg tablet RxNorm: 283924 1 Tablet(s) PO QHS 10/11/19 14 01/07/2014 Inactive Celexa 40 mg tablet RxNorm: 821421 Tablet(s) PO TAKE 1 TABLET BY MOUTH ONCE DAILY. 09/18/2013 09/17/2013 Inactive Xanax 1 mg tablet RxNorm: 928739 1-2 Tablet(s) PO QHS 08/13/201308/28 Inactive simvastatin 10 mg tablet RxNorm: 848960 1 Tablet(s) PO QHS 07/12/19 14 10/08/2013 Inactive bupropion HCl SR 100 mg tablet,sustained-release RxNorm: 993 503 1 Tablet(s) PO QAM 05/22/2013 11/17/2013 Inactive Pamelor 10 mg capsule RxNorm: 519943 1 Capsule(s) PO QHS for PLATA /sleep 05/22/2013 06/04/2013 Inactive Xanax 1 mg tablet RxNorm: 612257 1-2 Tablet(s) PO QHS 05/15/201305/29 Inactive Pamelor 10 mg capsule RxNorm: 256371 1 Capsule(s) PO QHS for PLATA /sleep 05/15/2013 05/21/2013 Inactive Xanax 1 mg tablet RxNorm: 046301 1 Tablet(s) PO QHS 04/27/20132013 Inactive Zovirax 800 mg tablet RxNorm: 796948 1 Tablet(s) PO TID 04/05/2013 Inactive Xanax 1 mg tablet RxNorm: 323907 1 Tablet(s) PO QHS 04/03/2013 No Sto p Date Active bupropion HCl SR 100 mg tablet,sustained-release RxNorm: 993 503 1 Tablet(s) PO QAM 03/26/2013 05/21/2013 Inactive bupropion HCl SR 100 mg tablet,sustained-release RxNorm: 993 503 1 Tablet(s) PO QAM 03/06/2013 03/25/2013 Inactive Pamelor 10 mg capsule RxNorm: 669156 1 Capsule(s) PO QHS for PLATA /sleep 02/14/2013 05/14/2013 Inactive levothyroxine 75 mcg capsule RxNorm: 696822 1 Capsule(s) PO QD 12/2901/08/2014 Inactive simvastatin 10 mg tablet RxNorm: 967823 1 Tablet(s) PO QHS TAKE 1 TABLET BY MOUTH ONCE DAILY AT BEDTIME. 01/15/2013 07/10/2013 Inactive cyclobenzaprine 10 mg tablet RxNorm: 338438 1 Tablet(s) PO TID prn spasm 12/25/2012 06/22/2013 Inactive Pamelor 10 mg capsule RxNorm: 111531 1 Capsule(s) PO QHS for PLATA /sleep 11/29/2012 02/14/2013 Inactive Celexa 40 mg tablet RxNorm: 455147 Tablet(s) PO TAKE 1 TABLET BY MOUTH ONCE DAILY. 10/11/2012 09/17/2013 Inactive simvastatin 10 mg tablet RxNorm: 528077 Tablet(s) PO TA KE 1 TABLET BY MOUTH ONCE DAILY AT BEDTIME. 10/11/2012 01/14/2013 Inactive simvastatin 10 mg tablet RxNorm: 818617 1 Tablet(s) PO QD 07/11/2012 10/08/2012 Inactive simvastatin 10 mg tablet RxNorm: 244790 1 Tablet(s) PO QD 04/14/2012 07/11/2012 Inactive simvastatin 10 mg tablet RxNorm: 666513 1 Tablet(s) PO QD 04/14/2012 04/13/2012 Inactive Celexa 40 mg tablet RxNorm: 347419 1 Tablet(s) PO QD 03/15/201209/10 Inactive cyclobenzaprine 10 mg tablet RxNorm: 045742 1 Tablet(s) PO TID prn spasm 02/02/2012 02/01/2012 Inactive cyclobenzaprine 10 mg tablet RxNorm: 926330 1 Tablet(s) PO TID prn spasm 02/02/2012 07/30/2012 Inactive Diflucan 100 mg Tab RxNorm: 804059 1 Tablet(s) PO QD 08/17/201108/22 Inactive Cipro 250 mg Tab RxNorm: 130308 1 Tablet(s) PO QD 08/17/2011 10/15/19 12 Inactive Levaquin 500 mg Tab RxNorm: 568269 1 Tablet(s) PO QD 08/17/201108/22 Inactive Pyridium 200 mg Tab RxNorm: 2711583 1 Tablet(s) PO TID 10/14/2010 Inactive may turn urine orange-red color. Cipro 500 mg Tab RxNorm: 971790 1 Tablet(s) PO BID 10/14/2010 011 Inactive levothyroxine 75 mcg capsule RxNorm: 772329 1 Capsule(s) PO QD 12/3001/14/2011 Inactive Vitamin D3 5,000 unit tablet RxNorm: 938368 1 Tablet(s) PO QD No Star t Date Active Nasacort 55 mcg nasal spray aerosol RxNorm: 9856741 2 Sp ray NASAL each nostril QHS No Start Date Active cyclobenzaprine 10 mg tablet RxNorm: 788043 1 Tablet(s) PO TID as needed No Start Date 11/22/2018 Inactive Vitamin D2 1,000 unit capsule RxNorm: 190006 3 Capsule(s) PO QD No Start Date 11/16/2017 Inactive diclofenac sodium 75 mg tablet,delayed release RxNorm: 68436 6 1 Tablet(s) PO BID No Start Date 03/16/2016 Inactive cephalexin 500 mg capsule RxNorm: 422437 1 Capsule(s) PO QOD No Sta rt Date 12/04/2013 Inactive cyclobenzaprine 10 mg tablet RxNorm: 929918 1 Tablet(s) PO QHS No S tart Date 02/01/2012 Inactive loratadine 10 mg tablet RxNorm: 232821 1 Tablet(s) PO QHS No Start Date 05/14/2019 Inactive hydrocodone 5 mg-acetaminophen 500 mg tablet RxNorm: 086693 1 -2 Tablet(s) PO Q6H as needed No Start Date 08/09/2018 Inactive etodolac 400 mg tablet RxNorm: 872877 1 Tablet(s) PO TID No Start D ate 09/17/2018 Inactive Xanax 1 mg tablet RxNorm: 732054 1 Tablet(s) PO QHS No Start Date 04/2013 Inactive Vitamin D3 1,000 unit capsule RxNorm: 773994 1 Capsule(s) PO QD No Start Date 06/12/2014 Inactive estradiol 2 mg tablet RxNorm: 441245 1/2 Tablet(s) PO QD No Start D ate 03/05/2013 Inactive Celexa 40 mg tablet RxNorm: 042492 1 Tablet(s) PO QD No Start Date Inactive Activella 1 mg-0.5 mg tablet RxNorm: 9039216 1 Tablet(s) PO QD No S tart Date 07/10/2012 Inactive medroxyprogesterone 5 mg tablet RxNorm: 9947904 1/2 Tablet(s) PO QD No Start Date 03/05/2013 Inactive levothyroxine 88 mcg tablet RxNorm: 345326 1 Tablet(s) PO QD No Sta rt Date 02/26/2015 Inactive Keflex 500 mg capsule RxNorm: 279590 1 Capsule(s) PO PRN No Start D ate 08/16/2011 Inactive Activella 1 mg-0.5 mg tablet RxNorm: 1729762 1 Tablet(s) PO QHS No Start Date 03/27/2017 Inactive Activella 1 mg-0.5 mg tablet RxNorm: 9068836 1 Tablet(s) PO QD No S tart Date 02/06/2014 Inactive Flexeril 10 mg Tab RxNorm: 640944 1 Tablet(s) PO TID No Start Date Inactive prn spasm simvastatin 10 mg tablet RxNorm: 578895 1 Tablet(s) PO QD No Start Date 04/13/2012 Inactive Medication Administered No Medication Administered data Immunizations Vaccine Codes Date Status Influenza CVX: 135 01/16/2019 Complete Pneumococcal CVX: 133 01/16/2019 Complete Results No Results data Procedures Procedure Codes Date URINALYSIS NONAUTO W/O SCOPE CPT-4: 44365 07/17/2019 URINE CULTURE/ COLONY COUNT CPT-4: 97263 07/17/2019 DEXAMETHASONE SODIUM PHOS CPT-4: J1100 05/14/2019 THER/PROPH/DIAG INJ SC/IM CPT-4: 50839 05/14/2019 TRIAMCINOLONE ACET INJ NOS CPT-4: J3301 05/14/2019 FLU VACC PRSV FREE INC ANTIG 65 AND OLDER CPT-4: 70444 01/16/2019 FLU VACC PRSV FREE INC ANTIG 65 AND OLDER CPT-4: 29732 01/16/2019 PNEUMOCOCCAL VACC 13 NARESH IM CPT-4: 51806 01/16/2019 SKIN FUNGI CULTURE CPT-4: 69628 01/16/2019 IMMUNIZATION ADMIN CPT-4: 60410 01/16/2019 IMMUNIZATION ADMIN EACH ADD CPT-4: 45322 01/16/2019 THER/PROPH/DIAG INJ SC/IM CPT-4: 40329 01/17/2018 KETOROLAC TROMETHAMINE INJ CPT-4: J1885 01/17/2018 THER/PROPH/DIAG INJ SC/IM CPT-4: 93471 01/17/2018 PROMETHAZINE HCL INJECTION CPT-4: J2550 01/17/2018 URINALYSIS NONAUTO W/O SCOPE CPT-4: 47852 12/29/2017 URINE CULTURE/ COLONY COUNT CPT-4: 78582 12/29/2017 THER/PROPH/DIAG INJ SC/IM CPT-4: 22243 11/30/2017 TRIAMCINOLONE ACET INJ NOS CPT-4: J3301 11/30/2017 DEXAMETHASONE SODIUM PHOS CPT-4: J1100 11/30/2017 CEFTRIAXONE SODIUM INJECTION CPT-4: J0696 11/29/2017 THER/PROPH/DIAG INJ SC/IM CPT-4: 88273 11/29/2017 CEFTRIAXONE SODIUM INJECTION CPT-4: J0696 11/28/2017 THER/PROPH/DIAG INJ SC/IM CPT-4: 22010 11/28/2017 URINALYSIS NONAUTO W/O SCOPE CPT-4: 10249 10/10/2017 THER/PROPH/DIAG INJ SC/IM CPT-4: 84330 10/10/2017 TRIAMCINOLONE ACET INJ NOS CPT-4: J3301 10/10/2017 DEXAMETHASONE SODIUM PHOS CPT-4: J1100 10/10/2017 CEFTRIAXONE SODIUM INJECTION CPT-4: J0696 10/10/2017 THER/PROPH/DIAG INJ SC/IM CPT-4: 51882 10/10/2017 URINE CULTURE/ COLONY COUNT CPT-4: 27955 10/10/2017 THER/PROPH/DIAG INJ SC/IM CPT-4: 44683 11/02/2016 KETOROLAC TROMETHAMINE INJ CPT-4: J1885 11/02/2016 THER/PROPH/DIAG INJ SC/IM CPT-4: 95479 06/15/2016 TRIAMCINOLONE ACET INJ NOS CPT-4: J3301 06/15/2016 DEXAMETHASONE SODIUM PHOS CPT-4: J1100 06/15/2016 THER/PROPH/DIAG INJ SC/IM CPT-4: 98851 04/09/2016 KETOROLAC TROMETHAMINE INJ CPT-4: J1885 04/09/2016 PROMETHAZINE HCL INJECTION CPT-4: J2550 04/09/2016 EXC TR-EXT B9+ERASMO 0.5 CM< CPT-4: 54289 06/12/2015 URINALYSIS NONAUTO W/O SCOPE CPT-4: 82614 05/05/2015 URINE CULTURE/ COLONY COUNT CPT-4: 47585 05/05/2015 URINALYSIS NONAUTO W/O SCOPE CPT-4: 08319 03/24/2015 URINALYSIS NONAUTO W/O SCOPE CPT-4: 70383 02/27/2015 URINE CULTURE/ COLONY COUNT CPT-4: 01763 02/27/2015 THER/PROPH/DIAG INJ SC/IM CPT-4: 65118 04/18/2014 KETOROLAC TROMETHAMINE INJ CPT-4: J1885 04/18/2014 THER/PROPH/DIAG INJ SC/IM CPT-4: 28475 06/05/2013 TRIAMCINOLONE ACET INJ NOS CPT-4: J3301 06/05/2013 THER/PROPH/DIAG INJ SC/IM CPT-4: 83576 11/29/2012 KETOROLAC TROMETHAMINE INJ CPT-4: J1885 11/29/2012 URINALYSIS NONAUTO W/O SCOPE CPT-4: 54158 07/11/2012 URINE CULTURE/ COLONY COUNT CPT-4: 85340 07/11/2012 OCCULT BLOOD FECES CPT-4: 12749 02/17/2012 URINALYSIS NONAUTO W/O SCOPE CPT-4: 51814 08/27/2011 URINE CULTURE/ COLONY COUNT CPT-4: 27707 08/27/2011 URINALYSIS NONAUTO W/O SCOPE CPT-4: 81164 08/17/2011 URINE CULTURE/ COLONY COUNT CPT-4: 28399 08/17/2011 URINALYSIS NONAUTO W/O SCOPE CPT-4: 63938 12/28/2010 URINE CULTURE/ COLONY COUNT CPT-4: 77393 12/28/2010 URINALYSIS NONAUTO W/O SCOPE CPT-4: 07347 11/09/2010 URINE CULTURE/ COLONY COUNT CPT-4: 91513 11/09/2010 URINALYSIS NONAUTO W/O SCOPE CPT-4: 10955 10/29/2010 URINE CULTURE/ COLONY COUNT CPT-4: 96391 10/29/2010 URINE CULTURE/ COLONY COUNT CPT-4: 04589 10/14/2010 URINALYSIS NONAUTO W/O SCOPE CPT-4: 55274 10/14/2010 Vital Signs Date Vital 07/17/2019 Blood [...] 1: 122/74 Code: 8480-6 BMI: 22.0 Code: 06585-8 Heart Rate 1: 72 bpm Height: 5'3" [...] 1: 126/72 Code: 8480-6 BMI: 22.7 Code: 81963-8 Heart Rate 1: 72 bpm Height: 5'3" [...] 1: 112/70 Code: 8480-6 BMI: 22.0 Code: 77691-4 Heart Rate 1: 80 bpm Height: 5'3" [...] 1: 122/64 Code: 8480-6 BMI: 21.4 Code: 58004-8 Heart Rate 1: 88 bpm Height: 5'3" Respiratory Rate: 22 bpm SpO2: 96% Tempera ture: 36.8 (C) / 98.2 (F) Weight: 121 lbs 06/22/2017 Blood Pressure 1: 124/78 Code: 8480-6 BMI: 21.6 Code: 20899-2 Heart Rate 1: 76 bpm Height: 5'3" Respiratory Rate: 20 bpm Temperature: 36 .8 (C) / 98.3 (F) Weight: 122 lbs 03/28/2017 Blood Pressure 1: 92/60 Code: 8480-6 BMI: 20.4 C ode: 54025-0 Heart Rate 1: 72 bpm Height: 5'3" Respiratory Rate: 20 bpm Temperature: 36 .9 (C) / 98.4 (F) Weight: 115 lbs 02/16/2017 Blood Pressure 1: 106/70 Code: 8480-6 BMI: 21.3 Code: 23020-1 Heart Rate 1: 82 bpm Height: 5'3" Respiratory Rate: 22 bpm SpO2: 97% Tempera ture: 36.1 (C) / 97.0 (F) Weight: 120 lbs 09/06/2016 Blood Pressure 1: 118/64 Code: 8480-6 BMI: 22.7 Code: 93267-1 Heart Rate 1: 78 bpm Height: 5'3" Respiratory Rate: 20 bpm SpO2: 98% Tempera ture: 36.2 (C) / 97.2 (F) Weight: 128 lbs 08/16/2016 Blood Pressure 1: 118/78 Code: 8480-6 BMI: 22.1 Code: 00876-8 Heart Rate 1: 78 bpm Height: 5'3" Respiratory Rate: 20 bpm SpO2: 97% Tempera ture: 36.2 (C) / 97.1 (F) Weight: 125 lbs 07/19/2016 Blood Pressure 1: 116/68 Code: 8480-6 BMI: 22.5 Code: 29334-5 Heart Rate 1: 76 bpm Height: 5'3" Respiratory Rate: 20 bpm Temperature: 36 .8 (C) / 98.2 (F) Weight: 127 lbs 07/06/2016 Blood Pressure 1: 106/70 Code: 8480-6 BMI: 22.5 Code: 61976-0 Heart Rate 1: 72 bpm Height: 5'3" Respiratory Rate: 20 bpm SpO2: 97% Tempera ture: 36.8 (C) / 98.2 (F) Weight: 127 lbs 06/15/2016 Blood Pressure 1: 136/76 Code: 8480-6 BMI: 22.9 Code: 35527-2 Heart Rate 1: 74 bpm Height: 5'3" Respiratory Rate: 18 bpm SpO2: 98% Tempera ture: 36.4 (C) / 97.6 (F) Weight: 129 lbs 04/09/2016 Blood Pressure 1: 124/78 Code: 8480-6 BMI: 23.0 Code: 80078-5 Heart Rate 1: 86 bpm Height: 5'3" Respiratory Rate: 20 bpm SpO2: 96% Tempera ture: 36.5 (C) / 97.7 (F) Weight: 130 lbs 03/17/2016 Blood Pressure 1: 116/74 Code: 8480-6 BMI: 23.4 Code: 91810-2 Heart Rate 1: 84 bpm Height: 5'3" Respiratory Rate: 20 bpm SpO2: 97% Tempera ture: 36.8 (C) / 98.3 (F) Weight: 132 lbs 11/13/2015 Blood Pressure 1: 124/78 Code: 8480-6 BMI: 23.4 Code: 66803-9 Heart Rate 1: 88 bpm Height: 5'3" Respiratory Rate: 24 bpm SpO2: 98% Tempera ture: 36.8 (C) / 98.2 (F) Weight: 132 lbs 06/12/2015 Blood Pressure 1: 126/78 Code: 8480-6 BMI: 23.6 Code: 10607-5 Heart Rate 1: 80 bpm Height: 5'3" Respiratory Rate: 20 bpm Temperature: 36 .9 (C) / 98.4 (F) Weight: 133 lbs 04/22/2015 Blood Pressure 1: 126/68 Code: 8480-6 BMI: 23.6 Code: 31138-3 Heart Rate 1: 80 bpm Height: 5'3" Respiratory Rate: 20 bpm Temperature: 36 .6 (C) / 97.9 (F) Weight: 133 lbs 03/24/2015 Blood Pressure 1: 116/66 Code: 8480-6 BMI: 22.9 Code: 40709-8 Heart Rate 1: 74 bpm Height: 5'3" Respiratory Rate: 20 bpm Temperature: 36 .4 (C) / 97.6 (F) Weight: 129 lbs 02/27/2015 Blood Pressure 1: 106/64 Code: 8480-6 BMI: 22.7 Code: 07294-0 Heart Rate 1: 74 bpm Height: 5'3" Respiratory Rate: 20 bpm Temperature: 36 .8 (C) / 98.2 (F) Weight: 128 lbs 06/13/2014 Blood Pressure 1: 104/66 Code: 8480-6 BMI: 22.7 Code: 80192-4 Heart Rate 1: 84 bpm Height: 5'3" Respiratory Rate: 20 bpm Temperature: 37 .0 (C) / 98.6 (F) Weight: 128 lbs 04/18/2014 Blood Pressure 1: 112/62 Code: 8480-6 BMI: 22.0 Code: 39274-8 Heart Rate 1: 82 bpm Height: 5'3" Respiratory Rate: 18 bpm Temperature: 36 .4 (C) / 97.6 (F) Weight: 124 lbs 12/05/2013 Blood Pressure 1: 106/70 Code: 8480-6 BMI: 23.7 Code: 71801-5 Heart Rate 1: 84 bpm Height: 5'3" [...] 1: 126/88 Code: 8480-6 BMI: 22.3 Code: 37998-9 Heart Rate 1: 96 bpm Height: 5'4" Respiratory Rate: 20 bpm Temperature: 37 .7 (C) / 99.9 (F) Weight: 130 lbs 11/29/2012 Blood Pressure 1: 122/76 Code: 8480-6 BMI: 23.0 Code: 63896-5 Heart Rate 1: 84 bpm Height: 5'4" Respiratory Rate: 20 bpm Temperature: 36 .9 (C) / 98.4 (F) Weight: 134 lbs 09/26/2012 Blood Pressure 1: 114/76 Code: 8480-6 BMI: 23.0 Code: 47904-5 Heart Rate 1: 84 bpm Height: 5'4" Respiratory Rate: 20 bpm Temperature: 37 .3 (C) / 99.1 (F) Weight: 134 lbs 07/11/2012 Blood Pressure 1: 126/78 Code: 8480-6 BMI: 23.7 Code: 80723-4 Heart Rate 1: 76 bpm Height: 5'4" Respiratory Rate: 20 bpm Temperature: 37 .1 (C) / 98.7 (F) Weight: 138 lbs 02/02/2012 Blood Pressure 1: 108/70 Code: 8480-6 BMI: 23.2 Code: 63880-1 Heart Rate 1: 88 bpm Height: 5'4" Respiratory Rate: 20 bpm Temperature: 36 .4 (C) / 97.6 (F) Weight: 135 lbs 08/17/2011 Blood Pressure 1: 108/70 Code: 8480-6 BMI: 23.2 Code: 67249-4 Heart Rate 1: 72 bpm Height: 5'4" Respiratory Rate: 20 bpm Temperature: 36 .8 (C) / 98.2 (F) Weight: 135 lbs 10/14/2010 Blood Pressure 1: 120/72 Code: 8480-6 BMI: 23.4 Code: 88325-2 Heart Rate 1: 78 bpm Height: 5'3" [...] dysuria. Encounters Encounter Performer Location Codes Date ([id number]) OFFICE/OUTPATIENT VISIT EST Diagnosis: Urinary tract infection, site not specified[ICD10: N39.0] Diagnosis: Dysuria[ICD10: R30.0] Vandana CARROLL DO [facility] CPT-4: 74414 07/17/2019 ([id number]) OFFICE/OUTPATIENT VISIT EST Diagnosis: Allergic dermatitis[ICD10: L23.9] Alexandra CARROLL DO [facility] CPT-4: 74396 06/26/2019 ([id number]) OFFICE/OUTPATIENT VISIT EST Diagnosis: Contact dermatitis due to plant[ICD10: L25.5] Diagnosis: Cellulitis of left arm[ICD10: L03.114] Vandana Amritasasha CARROLL [facility] CPT-4: 22579 05/14/2019 ([id number]) OFFICE/OUTPATIENT VISIT EST Diagnosis: Ventral hernia[ICD10: K43.9] Diagnosis: Incisional hernia[ICD10: K43.2] Alexandra CARROLL DO [facility] CPT-4: 81327 04/10/2019 ([id number]) OFFICE/OUTPATIENT VISIT EST Diagnosis: Insomnia[ICD10: G47.00] Diagnosis: Thrombocytosis[ICD10: D47.3] Alexandra CARROLL [facility] CPT-4: 42915 02/14/2019 ([id number]) OFFICE/OUTPATIENT VISIT EST Diagnosis: Small bowel obstruction[ICD10: K56.609] Diagnosis: FLU VACCINE[ICD10: Z23] Diagnosis: PNEUMOCOCCAL VACCINE[ICD10: Z23] Diagnosis: Onychomycosis[ICD10: B35.1] Alexandra KUNZ [facility] CPT-4: 80761 01/16/2019 ([id number]) OFFICE/OUTPATIENT VISIT EST Diagnosis: Diarrhea, unspecified[ICD10: R19.7] Diagnosis: Radiculopathy, lumbosacral region[ICD10: M54.17] Alexandra CARROLL [facility] CPT-4: 48790 09/18/2018 OFFICE/OUTPATIENT VISIT EST Diagnosis: Other intervertebral disc degeneration, lumbar region[ICD10: M51.36] Diagnosis: Sacroiliitis, not elsewhere classified[ICD10: M46.1] Diagnosis: Obstructive sleep apnea (adult) (pediatric)[ICD10: G47.33] [facility] 53085 08/10/2018 ([id number]) OFFICE/OUTPATIENT VISIT EST Diagnosis: Fracture of unspecified part of left clavicle, subsequent encounter for fracture with routine healing[ICD10: S42.002D] Diagnosis: Cervicalgia[ICD10: M54.2] Diagnosis: Radiculopathy, lumbosacral region[ICD10: M54.17] [facility] CPT-[facility]: 54460 03/27/2018 ([id number]) OFFICE/OUTPATIENT VISIT EST Diagnosis: Fracture of unspecified part of left clavicle, subsequent encounter for fracture with routine healing[ICD10: S42.002D] Diagnosis: Other intervertebral disc degeneration, lumbar region[ICD10: M51.36] Diagnosis: Unspecified fracture of first thoracic vertebra, subsequent encounter for fracture with routine healing[ICD10: S22.019D] Diagnosis: Unspecified fracture of second thoracic vertebra, subsequent encounter for fracture with routine healing[ICD10: S22.029D] [facility] CPT-[facility]: 17101 02/23/2018 ([id number]) OFFICE/OUTPATIENT VISIT EST Diagnosis: Fracture of unspecified part of left clavicle, subsequent encounter for fracture with routine healing[ICD10: S42.002D] Diagnosis: Unspecified fracture of first thoracic vertebra, subsequent encounter for fracture with routine healing[ICD10: S22.019D] Diagnosis: Unspecified fracture of second thoracic vertebra, subsequent encounter for fracture with routine healing[ICD10: S22.029D] Alexandra CARROLL DO [facility] CPT-4: 30686 01/24/2018 ([id number]) OFFICE/OUTPATIENT VISIT EST Diagnosis: Migraine, unspecified, not intractable, without status migrainosus[ICD10: G43.909] Alexandra CARROLL DO [facility] CPT - 4: 71207 01/17/2018 ([id number]) OFFICE/OUTPATIENT VISIT EST Diagnosis: Hematuria, unspecified[ICD10: R31.9] Diagnosis: Other intervertebral disc degeneration, lumbar region[ICD10: M51.36] Diagnosis: Retention of urine, unspecified[ICD10: R33.9] Alexandra CARROLL [facility] CPT-4: 27489 12/29/2017 OFFICE/OUTPATIENT VISIT EST Diagnosis: Fracture of [...] Diagnosis: Low back pain[ICD10: M54.5] Alexandra KUNZ [facility] CPT-4: 38970 12/06/2017 ([id number]) OFFICE/OUTPATIENT VISIT EST Diagnosis: Cellulitis of right upper limb[ICD10: L03.113] Diagnosis: Allergy status to other antibiotic agents status[ICD10: Z88.1] Vandana CARROLL [facility] CPT-4: 20028 12/01/2017 ([id number]) OFFICE/OUTPATIENT VISIT EST Diagnosis: Cellulitis of right upper limb[ICD10: L03.113] Diagnosis: Allergy status to other antibiotic agents status[ICD10: Z88.1] Vandana CARROLL [facility] CPT-4: 59364 11/30/2017 ([id number]) OFFICE/OUTPATIENT VISIT EST Diagnosis: Cellulitis of right upper limb[ICD10: L03.113] Vandana CARROLL DO [facility] CPT-4: 27515 11/29/2017 ([id number]) OFFICE/OUTPATIENT VISIT EST Diagnosis: Cellulitis of right upper limb[ICD10: L03.113] Vandana CARROLL DO [facility] CPT-4: 14062 11/28/2017 ([id number]) OFFICE/OUTPATIENT VISIT EST Diagnosis: Other intervertebral disc degeneration, lumbar region[ICD10: M51.36] Diagnosis: Other retention of urine[ICD10: R33.8] Diagnosis: Primary insomnia[ICD10: F51.01] Diagnosis: Other spondylosis, site unspecified[ICD10: M47.899] Alexandra CARROLL DO [facility] CPT-4: 50346 11/17/2017 ([id number]) OFFICE/OUTPATIENT VISIT EST Diagnosis: Radiculopathy, lumbosacral region[ICD10: M54.17] Diagnosis: Other retention of urine[ICD10: R33.8] Diagnosis: Urinary tract infection, site not specified[ICD10: N39.0] Vandana CARROLL DO [facility] CPT-4: 52712 10/10/2017 ([id number]) PREV VISIT EST AGE 40-64 Diagnosis: Encounter for general adult medical examination without abnormal findings[ICD10: Z00.00] Diagnosis: Other intervertebral disc degeneration, lumbar region[ICD10: M51.36] Diagnosis: Hypothyroidism, unspecified[ICD10: E03.9] Diagnosis: Mixed hyperlipidemia[ICD10: E78.2] Alexandra CARROLL DO [facility] CPT-4: 47973 06/22/2017 ([id number]) OFFICE/OUTPATIENT VISIT EST Diagnosis: URI, ACUTE[ICD10: J06.9] Alexandra ROMAN [facility] CPT-4: 69842 03/28/2017 OFFICE/OUTPATIENT VISIT EST Diagnosis: Acute sinusitis, unspecified[ICD10: J01.90] Vandana CARROLL DO [facility] CPT-4: 77965 02/16/2017 ([id number]) OFFICE/OUTPATIENT VISIT EST Diagnosis: Migraine, unspecified, not intractable, without status migrainosus[ICD10: G43.909] Alexandra CARROLL [facility] CPT - 4: 33985 11/02/2016 ([id number]) OFFICE/OUTPATIENT VISIT EST Diagnosis: Pain in thoracic spine[ICD10: M54.6] Diagnosis: Chondrocostal junction syndrome [Tietze][ICD10: M94.0] Alexandra CARROLL [facility] CPT-4: 52155 09/06/2016 OFFICE/OUTPATIENT VISIT EST Diagnosis: Acute sinusitis, unspecified[ICD10: J01.90] Vidya Manuel ALEXANDRA CARROLL [facility] CPT-4: 96005 08/16/2016 ([id number]) OFFICE/OUTPATIENT VISIT EST Diagnosis: Primary insomnia[ICD10: F51.01] Diagnosis: Cramp and spasm[ICD10: R25.2] Diagnosis: Major depressive disorder, single episode, mild[ICD10: F32.0] Alexandra CARROLL [facility] CPT-4: 09809 07/19/2016 ([id number]) OFFICE/OUTPATIENT VISIT EST Diagnosis: Obstructive sleep apnea (adult) (pediatric)[ICD10: G47.33] Diagnosis: Other fatigue[ICD10: R53.83] Diagnosis: Allergic rhinitis due to pollen[ICD10: J30.1] Diagnosis: Headache[ICD10: R51] Alexandra CARROLL [facility] CPT-4: 65480 07/06/2016 ([id number]) OFFICE/OUTPATIENT VISIT EST Diagnosis: Acute recurrent sinusitis, unspecified[ICD10: J01.91] Diagnosis: Allergic rhinitis due to pollen[ICD10: J30.1] Alexandra CARROLL [facility] CPT-4: 61477 06/15/2016 ([id number]) OFFICE/OUTPATIENT VISIT EST Diagnosis: Migraine, unspecified, not intractable, without status migrainosus[ICD10: G43.909] Diagnosis: Allergic rhinitis, unspecified[ICD10: J30.9] Nae CARROLL [facility] CPT-4: 87187 04/09/2016 ([id number]) OFFICE/OUTPATIENT VISIT EST Diagnosis: Hypothyroidism, unspecified[ICD10: E03.9] Diagnosis: Other fatigue[ICD10: R53.83] Diagnosis: Mixed hyperlipidemia[ICD10: E78.2] Diagnosis: Major depressive disorder, single episode, mild[ICD10: F32.0] Alexandra CARROLL DO [facility] CPT-4: 07344 03/17/2016 ([id number]) OFFICE/OUTPATIENT VISIT EST Diagnosis: Insomnia, unspecified[ICD10: G47.00] Diagnosis: Encounter for therapeutic drug level monitoring[ICD10: Z51.81] Nae CARROLL [facility] CPT-4: 32111 11/13/2015 ([id number]) OFFICE/OUTPATIENT VISIT EST Diagnosis: Hematuria, unspecified[ICD10: R31.9] Alexandra CARROLL [facility] CPT-4: 84515 05/05/2015 ([id number]) OFFICE/OUTPATIENT VISIT EST Diagnosis: Other intervertebral disc degeneration, lumbar region[ICD10: M51.36] Diagnosis: Radiculopathy, lumbosacral region[ICD10: M54.17] Alexandra CARROLL [facility] CPT-4: 71045 04/22/2015 ([id number]) OFFICE/OUTPATIENT VISIT EST Diagnosis: Low back pain[ICD10: M54.5] Diagnosis: Recurrent and persistent hematuria with unspecified morphologic changes[ICD10: N02.9] Alexandra CARROLL DO [facility] CPT-4: 80146 03/24/2015 ([id number]) OFFICE/OUTPATIENT VISIT EST Diagnosis: Acute sinusitis, unspecified[ICD10: J01.90] Diagnosis: Headache[ICD10: R51] Diagnosis: Retention of urine, unspecified[ICD10: R33.9] Diagnosis: Hypothyroidism, unspecified[ICD10: E03.9] Alexandra CARROLL [facility] CPT-4: 25459 02/27/2015 ([id number]) PREV VISIT EST AGE 40-64 Diagnosis: ROUTINE MEDICAL EXAM[ICD9: V70.0] Diagnosis: HYPOTHYROIDISM[ICD9: 244.9] Diagnosis: HYPERLIPIDEMIA NEC/NOS[ICD9: 272.4] Alexandra SHAFFERUnique ADALID Ty JACOBONDVIOLETTA SALGUERO [facility] CPT-4: 80720 06/13/2014 ([id number]) OFFICE/OUTPATIENT VISIT EST Diagnosis: CEPHALGIA[ICD9: 784.0] Diagnosis: Nausea[ICD9: 787.02] Shalinisa Romeo SHAFFERLINE yT JACOBONDVIOLETTA [facility] CPT-4: 28904 04/18/2014 ([id number]) OFFICE/OUTPATIENT VISIT EST Diagnosis: INSOMNIA NOS[ICD9: 780.52] Diagnosis: Complicated grieving[ICD9: 309.0] Alexandradanielle Louise SAri JACOBONDVIOLETTA [facility] CPT-4: 36243 12/05/2013 ([id number]) OFFICE/OUTPATIENT VISIT EST Diagnosis: Muscle twitch[ICD9: 781.0] Diagnosis: ALLERGIC RHINITIS[ICD9: 477.9] Alexandra Danelawandavioletta SHAFFERALEXANDRA Macy CARROLL [employer] [facility] CPT-4: 58452 06/05/2013 ([id number]) OFFICE/OUTPATIENT VISIT EST Diagnosis: DEPRESSIVE DISORDER NEC[ICD9: 311] Alexandra QUINTERO S. DANENDER [facility] CPT-4: 66985 05/22/2013 OFFICE/OUTPATIENT VISIT EST Diagnosis: Shingles[ICD9: 053.9] Alexandra Danejames FORDE MacyAri DANENDVIOLETTA [employer] [facility] CPT-4: 89782 04/05/2013 ([id number]) OFFICE/OUTPATIENT VISIT EST Diagnosis: DEPRESSIVE DISORDER NEC[ICD9: 311] Alexandra QUINTERO S. DANENDER [facility] CPT-4: 07281 03/26/2013 ([id number]) OFFICE/OUTPATIENT VISIT EST Diagnosis: Complicated grieving[ICD9: 309.0] Alexandra Burlesonvioletta PAM Louise Ty JACOBONDER [facility] CPT-4: 66229 03/06/2013 ([id number]) OFFICE/OUTPATIENT VISIT EST Diagnosis: CEPHALGIA, TENSION[ICD9: 307.81] Diagnosis: MIGRAINE NOS/NOT INTRCBL[ICD9: 346.90] Diagnosis: Cervicalgia[ICD9: 723.1] Alexandra PLATT IZABELLA [facility] CPT-4: 63130 11/29/2012 ([id number]) OFFICE/OUTPATIENT VISIT EST Diagnosis: Jaw pain[ICD9: 784.92] Diagnosis: Shoulder pain[ICD9: 719.41] Diagnosis: Family history of premature coronary artery disease[ICD9: V17.3] Alexandra CARROLL [facility] CPT-4: 53198 09/26/2012 ([id number]) OFFICE/OUTPATIENT VISIT EST Diagnosis: ABDOMINAL PAIN[ICD9: 789.00] Diagnosis: Constipation[ICD9: 564.00] Diagnosis: Hematuria[ICD9: 599.70] Alexandra BURLESON [facility] CPT-4: 71516 07/11/2012 ([id number]) OFFICE/OUTPATIENT VISIT EST Diagnosis: ANEMIA NOS[ICD9: 285.9] Alexandra JACOBOND [facility] CPT-4: 98728 02/17/2012 ([id number]) PREV VISIT EST AGE 40-64 Diagnosis: ROUTINE MEDICAL EXAM[ICD9: V70.0] Diagnosis: HYPOTHYROIDISM[ICD9: 244.9] Diagnosis: HYPERLIPIDEMIA NEC/NOS[ICD9: 272.4] Diagnosis: Obstructive sleep apnea[ICD9: 327.23] Alexandra LEWNE Ty CARROLL [facility] CPT-4: 28444 02/02/2012 ([id number]) OFFICE/OUTPATIENT VISIT EST Diagnosis: URINARY TRACT INFECTION[ICD9: 599.0] Alexandra JACOBONDVIOLETTA [facility] CPT-4: 49936 08/27/2011 ([id number]) OFFICE/OUTPATIENT VISIT EST Diagnosis: URINARY TRACT INFECTION[ICD9: 599.0] Diagnosis: ACUTE CYSTITIS[ICD9: 595.0] Alexandra Crawford [facility] CPT-4: 54706 08/17/2011 OFFICE/OUTPATIENT VISIT EST Diagnosis: URINARY TRACT INFECTION[ICD9: 599.0] Steph LOZANO Ty OLSON CPT-4: 48324 10/14/2010 Plan of Care Planned Activity Notes [...] N39.0 07/17/2019 Patient Education: Cipro- [employer] Coupon [id number] https://www.[employer]/sampleMRO/resources/getResource/61/[email or web address]-[email or web address].pdf Completed 07/17/2019 Visit Diagnosis Plan: Allergic dermatitis Discussion: Could be numerous things that were given during surgery Continue benadryl Add Prednisone Notify if persists/worsens ICD-9 : 692.9 ICD-10 : L23.9 06/26/2019 Appointment: Alexandra Carroll WPtel: [phone] [facility] 06/26/2019 Patient Education: prednisone- [employer] Coupon [id number] https://www.[employer]/NuPotential/resources/getResource/61/89359099-[email or web address]-i5 Completed 06/26/2019 Visit Diagnosis Plan: Cellulitis of [...] injection a week pre-op and dr. albert's receiving team member voiced ok to give. ICD-9 : 692.6 ICD-10 : L25.5 05/14/2019 Appointment: Vandana Crowe [address] [place], [place] [id number] 05/14/2019 Patient Education: Levaquin- [employer] Coupon [id number] https://www.[employer].com/samplemd/resources/getResource/61/[email or web address]-v786-8987-02 Completed 05/14/2019 Visit Diagnosis Plan: Ventral hernia Discussion: See s urgery for repair Discussed signs of incarceration or strangulation then is to report to ER ICD-9 : 553.20 ICD-10 : K43.9 04/10/2019 Appointment: Alexandra Carroll WPtel: [address] [place], [place] [phone] [place] left second message 04/10/19 at 10:20 ACUTE ILLNE SS 04/10/2019 Care Plan: Referral Order SNOMED-CT : 30 [id number] Pending 04/10/2019 Visit Diagnosis Plan: Insomnia Discussion: [...] : D47.3 02/14/2019 Appointment: Alexandra Carroll WPtel: [address] [place], [place] [phone] [place] FOLLOW UP 02/14/2019 Appointment: Alexandra Carroll WPtel: [address] [place], [place] [id number] [place] CANCELED 02/12/2019 Visit Diagnosis Plan: Onychomycosis Discussion: Send n ail for culture ICD-9 : 110.1 ICD-10 : B35.1 01/16/2019 Visit Diagnosis Plan: Small bowel obstruction Discussi on: S/P surgery in September with postop complications of wound dehiscence ICD-9 : 560.9 ICD-10 : K56.609 01/16/2019 Appointment: Alexandra Carroll WPtel: [address] [place], [place] [phone] [place] MEDICATION REVIEW 01/16/2019 Appointment: Alexandra Carroll WPtel: [address] [place], [place] [phone] US CANCELED 12/12/2018 Visit Diagnosis Plan: Diarrhea, unspecified Discussion : Due for updated colonoscopy ICD-9 : 787.91 ICD-10 : R19.7 09/18/2018 Visit Diagnosis Plan: Radiculopathy, lumbosacral regio n Discussion: Had left SI joint injection by Dr. Baig about 2 weeks ago and has fwup with him ICD-9 : 724.4 ICD-10 : M54.17 09/18/2018 Appointment: Alexandra Carroll WPtel: [address] [place], [place] [phone] [place] PATIENT CONSULT 15 09/18/2018 Care Plan: Referral Order SNOMED-CT : 30 [id number] Pending 09/18/2018 Visit Diagnosis Plan: Other intervertebral [...] : M46.1 08/10/2018 Appointment: Alexandra Carroll WPtel: [address] [place], [place] [phone] [place] MEDICATION REVIEW 08/10/2018 Care Plan: Referral Order SNOMED-CT : 30 [id number] Pending 08/10/2018 Appointment: Alexandra Carroll WPtel: [address] [place], [place] [phone] US CANCELED 04/17/2018 Visit Diagnosis Plan: Fracture [...] : M54.2 03/27/2018 Appointment: Alexandra Carroll WPtel: [address] [place], [place] [phone] US FOLLOW UP 03/27/2018 Visit Diagnosis Plan: [...] : S42.002D 02/23/2018 Appointment: Alexandra Carroll WPtel: [address] [place], [place] [phone] [place] FOLLOW UP 02/23/2018 Patient Education: gabapentin- [employer] Coupon [phone] https://[email or web address]/samplemd/resources/getResource/61/[email or web address] Completed 02/23/2018 Visit Diagnosis Plan: Fracture of unspec ified part of left clavicle, subsequent encounter for fracture with routine healing Discussion: Hold on PT and do home stretches Trial of gabapentin Recheck 4 weeks ICD-9 : V54.11 ICD-10 : S42.002D 01/24/2018 Appointment: Alexandra Carroll WPtel: [address] [place], [place] [phone] US FOLLOW UP 01/24/2018 Visit Diagnosis Plan: Migraine, unspecif ied, not intractable, without status migrainosus Discussion: Toradol and phenergan given ICD-9 : 346.90 ICD-10 : G43.909 01/17/2018 Appointment: Alexandra Carroll WPtel: [address] [place], [place] [id number] 01/17/2018 Visit Diagnosis [...] : R31.9 12/29/2017 Appointment: Alexandra Carroll WPtel: [address] [place] [address] ACUTE ILLNESS 12/29/2017 Care Plan: US EXAM PELVIC COMPLETE LOINC : 39162-9 Pending 12/29/2017 Care Plan: ECHO EXAM OF ABDOMEN LOINC : 05997-7 Pending 12/29/2017 Care Plan: Referral Order SNOMED-CT : 30 [id number] Pending 12/29/2017 Visit Diagnosis Plan: Fracture of unspec ified part of left clavicle, subsequent encounter for fracture with routine healing Discussion: Start PT in another 7-14 days Off work for the rest of this week then may return to part-time work on 12/12/17 Fwup in 4 weeks ICD-9 : V54.11 ICD-10 : S42.002D 12/06/2017 Appointment: Alexandra Carroll WPtel: [address] [place], [place] [phone] [place] FOLLOW UP 12/06/2017 Patient Education: Patient [...] ICD-10 : Z88.1 12/01/2017 Appointment: Vandana Crowe [address] [place], [place] [id number] FOLLOW UP 12/01/2017 Patient Education: Patient Medication [...] ICD-10 : Z88.1 11/30/2017 Appointment: Vandana Crowe [address] [place], [place] [id number] [id number] 11/30/2017 Patient Education: Patient Medication Summary Completed [...] : L03.113 11/29/2017 Appointment: [id number] [facility] 11/29/2017 Patient Education: Patient Medication [...] ICD-10 : L03.113 11/28/2017 Appointment: Vandana Crowe [address] [place], [place] [id number] ACUTE ILLNESS 11/28/2017 Patient Education: Patient Medication [...] Appointment: Alexandra Carroll WPtel: [phone] [id number] [place] MEDICATION REVIEW 11/17/2017 Patient Education: Patient Medication Summary Completed 11/17/2017 Care Plan: Referral Order SNOMED-CT : 30 [id number] Pending 11/17/2017 Patient Education: Patient Medication Summary Completed 10/12/2017 Care Plan: MRI LUMBAR SPINE W/O DYE LOIN C : 87685-0 Pending 10/12/2017 Care Plan: X-RAY EXAM L-S SPINE 2/3 VWS LOINC : 03870-2 Pending 10/11/2017 Visit Diagnosis Plan: Other retention [...] medrol pack to start tomorrow. will call [facility] for patient to start PT immediately with inversion table. instructed patient to go to ED immediately if she develops any incontinence with bowel or bladder. patient verbalized understanding. if no improvement, will need updated MRI and referral to surgeon. ICD-9 : 724.4 ICD-10 : M54.17 10/10/2017 Appointment: Vandana Crowe [address] [place], [place] [phone] ACUTE ILLNESS 10/10/2017 Patient Education: Patient Medication Summary Completed 10/10/2017 Appointment: Vandana Crowe [address] [place], [place] [phone] ACUTE ILLNESS 08/01/2017 Visit Diagnosis Plan: Other intervertebral disc degene ration, lumbar region Discussion: Core strengtheing and inversion table and if worsening will need updated MRI ICD-9 : 722.52 ICD-10 : M51.36 06/22/2017 Visit Diagnosis Plan: Encounter for [facility] adult medical examination without abnormal findings Discussion: Lab dis ussed Follow Up: 6 months ICD-9 : V70.0 ICD-10 : Z00.00 06/22/2017 Appointment: Alexandra Carroll WPtel: [phone] [facility] Annual Well Visit 06/22/2017 Patient Education: Patient Medication Summary Completed 06/22/2017 Patient Education: Patient Medication Summary Completed 06/16/2017 Care Plan: [place] : [address]-8 Pending 06/16/2017 Care Plan: ASSAY THYROID STIM HORMONE Pen ding 06/16/2017 Care Plan: ASSAY OF FREE THYROXINE Pendin g 06/16/2017 Care Plan: LIPID PANEL LOINC : 81491-2 Pending 06/16/2017 Care Plan: CBC Pending 06/16/2017 [...] : J06.9 03/28/2017 Appointment: Alexandra Carroll WPtel: [facility] ACUTE ILLNESS 03/28/2017 Patient Education: Patient Medication Summary Completed 03/28/2017 Visit Diagnosis Plan: Acute sinusitis, unspecified Dis cussion: cefdinir and medrol dose pack prescribed to be taken as directed. tylenol/ibuprofen as needed. educated on importance of taking singulair or zyrtec daily to prevent worsening symptoms. keep hydrated. ICD-9 : 461.9 ICD-10 : J01.90 02/16/2017 Appointment: Vandana Crowe [address] [place], [place] [address]KS[address] ACUTE ILLNESS 02/16/2017 Patient Education: Patient Medication Summary Completed 02/16/2017 Appointment: Alexandra Carroll WPtel: [address] [place] [address] [place] INJECTION 11/02/2016 Patient Education: Patient Medication Summary Completed 11/02/2016 Visit Diagnosis Plan: Pain in thoracic spine Discussio n: Increase flexeril to 10mg po BID Add Mobic 15mg po daily Towel stretch May see chiropractor to adjust ribs Notify if persists or worsening ICD-9 : 724.1 ICD-10 : M54.6 09/06/2016 Appointment: Alexandra Carroll WPtel: [address] [place] [address] ACUTE ILLNESS 09/06/2016 Patient Education: Patient Medication Summary Completed 09/06/2016 Visit Plan: Due to hx, ERx Cefdinir and Prednisone (discussed risks for both) Given bottle for nasal saline rinses Tylenol/Ibuprofen prn pain/fever Fluids/rest Discussed s/s of worsening, RTC if no improvement 08/16/2016 Appointment: Vidya Manuel WPtel: [address] [place] [address] ACUTE ILLNESS 08/16/2016 Patient Education: Patient Medication [...] : F32.0 07/19/2016 Appointment: Alex[facility] Carroll [facility]Ptel[facility] 07/15 confirmed`sl FOLLOW UP 07/19/2016 Patient Education: [...] : J30.1 07/06/2016 Appointment: Alexandra Carroll WPtel: [facility] 07/05 confirmed-sp FOLLOW UP 07/06/2016 [...] : J01.91 06/15/2016 Appointment: Alexandra Carroll WPtel[facility] 06/14 lm ~sl ACUTE ILLNESS 06/15/2016 Patient Education: Patient Medication Summary Completed 06/15/2016 Visit Diagnosis Plan: Migraine, unspecif ied, not intractable, without status migrainosus Discussion: Injection as above Drink ple nty of water No driving x 6 hours Rest No OTC nsaids today Follow up PRN Refill called of claritin-d ICD-9 : 346.90 ICD-10 : G43.909 04/09/2016 Appointment[facility] [facility] [facility] 04/09/2016 Patient Education: Patient [...] : R53.83 03/17/2016 Appointment: Alexandra Carroll WPtel: [address] [place], [place] [phone] 03/16 nvm~sl 03/17 confirmed`sl FOLLOW UP 0 03/17/2016 Patient Education: Patient Medication Summary Completed 03/17/2016 Appointment: Alexandra Carroll WPtel: [address] [place], [place] [phone] [place] 03/11 lm~sl 03/15lm `sl 03/15 confirmed`sl FOLLOW U P 03/15/2016 Visit Plan: Discussed labeled indication s for benzos. Since xanax is not labeled for sleep and she has never tried anything else, encouraged her to trial restoril(another benzo) since it is labeled for sleep. She agrees with this trial. Rx called to [facility] after cost comparison which is nearly the same robert. If working well, continue the a9fymsn office visits. Call if not working well, and will restart xanax at for sleep. 11/13/2015 Appointment: [facility]ae [facility]ckay [facility] [facility] 11/11 confirmed~sl FOLLOW UP 11/13/2015 Patient Education: Patient Medication Summary Completed 11/13/2015 Appointment: Alexandra Carroll WPtel: [address] [place], [place] [phone] Suture Removal 06/23/2015 Patient Education: Patient Medication Summary Completed 06/23/2015 Visit Plan: Removal of lesion above usin g 3-0 punch biopsy Return in 10 days for suture removal 06/12/2015 Appointment: Alexandra Carroll WPtel: [address] [place], [place] [phone] 06/10 lm ~sl ACUTE ILLNESS 06/12/2015 Patient Education: Patient Medication Summary Completed 06/12/2015 Referral: [facility]el[facility] [place] [address] [place] Schedule patient around lunch time and 3 weeks from 04/22/2015 ~ Spoke with Kiesha at Dr. Sandoval [facility] and 04/24/15 and scheduled the patient ~sl 04/24/15 Patient is informed~ 06/03 Patient canceled the appointment ~ Patient did not show up for scheduled appointment-sp Appoint ment Requested 05/21/2015 Appointment: Alexandra Carroll WPtel: [address] [place], [place] [phone] UA 05/05/2015 Patient Education: Patient Medication Summary Completed 05/05/2015 Visit Plan: Starts PT today Schedule wit h Dr. Garcia for epidural CT abdomen/pelvis results discussed Sees CADDY MASTER in April and will get checked then 04/22/2015 Appointment: Alexandra Carroll WPtel: [address] [place], [place] [phone] 04/21 confirmed~lb ACUTE ILLNESS 04/22/2015 Patient Education: Patient Medication Summary Completed 04/22/2015 Referral: Lincoln Hernandez WPtel: [address] [place] [address] Referral Initiated 04/10/2015 Patient Education: Patient Medication Summary Completed 04/09/2015 Visit Plan: Start with lumosacral spine x-ray--will likely need MRI of L/S spine x-ray Needs urology--has had to have bladder stretched in past Tivorbex 03/24/2015 Appointment: Alexandra Carroll WPtel[facility] 03/21/15 appt confirmed cn ACUTE ILLNESS 03/24 Patient Education: Patient Medication Summary Completed 03/24/2015 Visit Plan: Saline nasal flushes prn. Ty lenol/Motrin prn headache. Notify if persists/symptoms worsening. Cefuroxime to cover both sinuses and UTI Culture urine Check lab 02/27/2015 Appointment: Alexandra Carroll WPtel: [address] [place], [place] [phone] 02/26/15 vm to confirm and need new insu meri on file is inactive cn....02/27/15 appt confirmed cn ACUTE ILLNESS 015 Patient Education: Patient Medication Summary Completed 02/27/2015 Visit Plan: Lab discussed Stop simvastat in Check lipids in 6mos Continue all other meds at current dose Had Pap and Mammo 3 weeks ago 06/13/2014 Appointment: Alexandra Carroll WPtel: [address] [place], [place] [phone] Annual Well Visit 06/13/2014 Patient Education: Patient Medication Summary Completed 06/13/2014 Appointment: Shalini Walters WPtel: [address] [place], [place] [phone] ACUTE ILLNESS 04/18/2014 Patient Education: Patient Medication Summary Completed 04/18/2014 Visit Plan: Check lab in May then fwup Can try decreasing xanax to 1mg q HS with melatonin 5-10mg q HS 12/05/2013 Appointment: Alexandra Carroll WPtel: [address] [place], [place] [phone] 12/04 FOLLOW UP 12/05/2013 Patient Education: Patient Medication Summary Completed 12/05/2013 Appointment: Alexandra Carroll WPtel: [address] [place], [place] [phone] FOLLOW UP 06/05/2013 Patient Education: Patient Medication Summary Completed 06/05/2013 Appointment: Alexandra Carroll WPtel: [address] [place] [address] FOLLOW UP 05/22/2013 Patient Education: Patient Medication Summary Completed 05/22/2013 Visit Plan: Zovirax for 2wks Notify if p ain worsens or if persists 04/05/2013 Appointment: Alexandra Carroll WPtel: [address] [place] [address] ACUTE ILLNESS 04/05/2013 Patient Education: Patient Medication Summary Completed 04/05/2013 Visit Plan: Keep Wellbutrin at current d ose Pt did see behavioral instructor for counseling 03/26/2013 Appointment: Alexandra Carroll WPtel: [address] [place] [address] ACUTE ILLNESS 03/26/2013 Patient Education: Patient Medication Summary Completed 03/26/2013 Visit Plan: Continue citalopram at curre nt dose Increase xanax to 1-2mg q HS for sleep Add Wellbutrin Sr 100mg q AM Start Counseling 03/06/2013 Appointment: Alexandra Carroll WPtel: [address] [place] [address] ACUTE ILLNESS 03/06/2013 Patient Education: Patient Medication Summary Completed 03/06/2013 Appointment: Alexandra Carroll WPtel: [address] [place] [address] ACUTE ILLNESS 11/29/2012 Patient Education: Patient Medication Summary Completed 11/29/2012 Appointment: Alexandra Carroll WPtel: [address] [place] [address] ACUTE ILLNESS 09/26/2012 Patient Education: Patient Medication Summary Completed 09/26/2012 Appointment: Alexandra Carroll WPtel: [address] [place] [address] ACUTE ILLNESS 07/11/2012 Patient Education: Patient Medication Summary Completed 07/11/2012 Appointment: Alexandra Carroll WPtel: [address] [place], [place] [phone] [place] LAB 02/17/2012 Patient Education: Patient Medication Summary Completed 02/17/2012 Visit Plan: Check fasting lab Start annie y ca with Vit D Cont CPAP Mammo up-to-date Hemoccult card given 02/02/2012 Appointment: Alexandra Carroll WPtel: [address] [place] [address] PHYSICAL 02/02/2012 Patient Education: Patient Medication Summary Completed 02/02/2012 Appointment: Alexandra Carroll WPtel: [address] [place] [address] UA 08/27/2011 Patient Education: Patient Medication Summary Completed 08/27/2011 Visit Plan: Levaquin and Diflucan for 1w k Then cipro QOD for prophylaxis 08/17/2011 Appointment: Alexandra Carroll WPtel: [address] [place] [address] FOLLOW UP 08/17/2011 Patient Education: Patient Medication Summary Completed 08/17/2011 Appointment: Alexandar Carroll WPtel: [address] [place] [address] UA 12/28/2010 Patient Education: Patient Medication Summary Completed 12/28/2010 Appointment: Alexandra Carroll WPtel: [address] [place] [address] 11/09/2010 Patient Education: Patient Medication Summary Completed 11/09/2010 Appointment: Alexandra Carroll WPtel: [address] [place] [address] 10/29/2010 Patient Education: Patient Medication Summary Completed 10/29/2010 Appointment: Steph Bowen WPtel: [address] [place] [address] ACUTE ILLNESS 10/14/2010 Patient Education: Patient Medication Summary Completed 10/14/2010 Referral: Florian Baig WPtel: [facility] [address], [facility] 1 [id number] [place] Referral Initiated Referral: Paulo Albert WPtel: [phone] [id number] [place] Referral Appointment Requested Referral: Luis Enrique Jasso WPtel: [facility] [address], [facility] 1 [id number] [place] Referral Appointment Requested Referral: Florian Baig WPtel: [facility] [address] 1 [id number] [place] Referral Appointment Requested Referral: Caleb Glaser WPtel: [address] [id number] [place] Referral Appointment Requested Referral: Florian Baig WPtel: [facility] [address], [facility] 1 [id number] [place] Referral Initiated Referral: Florian Baig WPtel: [facility] [address], [facility] 1 [id number] [place] Referral Appointment Requested Instructions Comment . [...] same robert. If working well, continue the w8czbyh office visits. Call if not working well, and will restart xanax at HS for sleep. . Removal of lesion above using 3-0 punc h biopsy Return in 10 days for suture removal . Starts PT today Schedule with Dr. Garcia for epidural CT abdomen/pelvis results discussed Sees CADDY MASTER in April and will get checked then [...]
[2019-09-02] MEDS ORDERED: NS IV 1000 ML 1,000 ML IV SCH (00:20)
--- OUTSIDE RECORDS SUMMARY | 2019-09-02 00:20 | XMS REPORT | CCD ---
Author Author Ilda Bowen APRN Organization [facility] Address [address] [place] [address] Phone Care Team Providers Care Adjunct Lecturer Name Role Phone Alexandra Carroll D.O., PP Unavailable CCM Unavailable Summary Purpose Interface Exchange Insurance Providers Payer name Policy type / Coverage type Covered democrat ID Effective Begin Date Effective End Date WPS MEDICARE PART B [place] Medicare Part B [id number] 2019 Unknown [employer] [place] Medicare Part B [id number] Unknown Family History Family History data not found Social History Social History Element Codes Description Effective Dates Tobacco history SNOMED CT: 196704052 Nonsmoker 10/14/2010 Allergies, Adverse Reactions, Alerts Substance Reaction Codes Entered Date Inactivated Date Status MORPHINE SULFATE RxNorm: 4023753 10/14/2010 No Inactive Da te Active CEPHALOSPORINS [...] Fill Instructions cyclobenzaprine 10 mg tablet RxNorm: 200966 Tablet(s) Oral as neede d 07/17/2019 No Stop Date Active Cipro 500 mg tablet RxNorm: 731088 1 Tablet(s) Oral two times a day 07/17/2019 07/22/2019 Active Xanax 1 mg tablet RxNorm: 859190 1-2 Tablet(s) Oral e very night at bedtime as needed for sleep 07/10/2019 08/08/2019 Active Generic For:LAVELLE AX 1MG 10/11/2016 11:15:13 AM prednisone 20 mg tablet RxNorm: 562551 1 Tablet(s) Oral two harlan es a day 06/26/2019 07/03/2019 Inactive Amabelz 1 mg-0.5 mg tablet RxNorm: 7881627 1 Tablet(s) Oral QD 05/3007/17/2019 Inactive Trazadone 150 mg Tablet RxNorm: 1 Tablet(s) Oral every n ight at bedtime 05/14/2019 No Stop Date Active Levaquin 500 mg tablet RxNorm: 400108 1 Tablet(s) Oral QD 05/14/2019 05/21/2019 Inactive Xanax 1 mg tablet RxNorm: 306392 1-2 Tablet(s) Oral e very night at bedtime as needed for sleep 05/03/2019 06/01/2019 Inactive Generic For:LAVELLE AX 1MG 10/11/2016 11:15:13 AM cyclobenzaprine 10 mg tablet RxNorm: 180271 1 Tablet(s) Oral three times a day as needed for muscle spasm 02/12/2019 02/12/2019 Inactive Xanax 1 mg tablet RxNorm: 243945 1-2 Tablet(s) Oral e very night at bedtime as needed for sleep 02/09/2019 03/10/2019 Inactive Generic For:LAVELLE AX 1MG 10/11/2016 11:15:13 AM Xanax 1 mg tablet RxNorm: 689580 1-2 Tablet(s) Oral e very night at bedtime as needed for sleep 01/22/2019 02/08/2019 Inactive Generic For:LAVELLE AX 1MG 10/11/2016 11:15:13 AM Celexa 40 mg tablet RxNorm: 019544 1 Tablet(s) Oral QD 01/17/2019 Active - First Attempt Ref: [id number] Xanax 1 mg tablet RxNorm: 541509 1 Tablet(s) Oral every night a t bedtime 01/08/2019 01/21/2019 Inactive levothyroxine 88 mcg tablet RxNorm: 478750 TAKE 1 TABLET BY NINA TH DAILY 12/19/2018 06/16/2019 Inactive - First Attempt Ref: [id number] Xanax 1 mg tablet RxNorm: 816505 1 Tablet(s) Oral every night a t bedtime 12/06/2018 01/05/2019 Inactive Singulair 10 mg tablet RxNorm: 791142 1 Tablet(s) Oral every ni ght at bedtime 11/23/2018 11/17/2019 Active - First Attempt Ref: [id number] Celexa 40 mg tablet RxNorm: 782038 1 Tablet(s) Oral 11/23/20182018 Inactive - First Attempt Ref: [id number] cyclobenzaprine 10 mg tablet RxNorm: 285361 1 Tablet(s) Oral three times a day as needed for muscle spasm 11/23/2018 02/11/2019 Inactive Xanax 1 mg tablet RxNorm: 250477 1 Tablet(s) PO QHS 11/06/20182018 Inactive Xanax 1 mg tablet RxNorm: 080744 1 Tablet(s) PO QHS 09/26/20182018 Inactive Singulair 10 mg tablet RxNorm: 185677 TAKE 1 TABLET BY MOUTH EVERY NIGHT AT BEDTIME 08/16/2018 11/22/2018 Inactive - First Attempt Ref: [id number] Xanax 1 mg tablet RxNorm: 813252 1 Tablet(s) PO QHS 08/01/20182018 Inactive levothyroxine 88 mcg tablet RxNorm: 066967 TAKE 1 TABLET BY NINA TH DAILY 07/31/2018 12/18/2018 Inactive - First Attempt Ref: [id number] Celexa 40 mg tablet RxNorm: 196005 TAKE 1 TABLET BY MOUTH DAILY 04/201811/22/2018 Inactive - First Attempt Ref: [id number] 54 bupropion HCl SR 100 mg tablet,12 hr sustained-release RxNor m: 522482 1 Tablet(s) PO BID 07/12/2018 07/06/2019 Inactive - Ref: [id number] 7 Claritin-D 24 Hour 10 mg-240 mg tablet,extended release RxNo rm: 6010996 1 Tablet(s) PO QD 06/29/2018 2018 Inactive Claritin-D 24 Hour 10 mg-240 mg tablet,extended release RxNo rm: 7541475 1 Tablet(s) PO QD 06/29/2018 2018 Inactive Xanax 1 mg tablet RxNorm: 417322 1-2 Tablet(s) PO QHS as needed for sleep 05/26/2018 06/23/2018 Inactive Generic For:XANAX 1M G 10/11/2016 11:15:13 AM Xanax 1 mg tablet RxNorm: 626259 1-2 Tablet(s) PO QHS as needed for sleep 03/28/2018 05/25/2018 Inactive Generic For:XANAX 1M G 10/11/2016 11:15:13 AM Macrobid 100 mg capsule RxNorm: 848614 1 Capsule(s) PO BID 03/27/19 19 03/31/2018 Inactive gabapentin 300 mg capsule RxNorm: 014497 1 Capsule(s) PO QHS 201703/26/2018 Inactive Claritin-D 24 Hour 10 mg-240 mg tablet,extended release RxNo rm: 8210516 1 Tablet(s) PO QD 01/26/2018 02/24/2018 Inactive gabapentin 100 mg capsule RxNorm: 985860 1 Capsule(s) P O QHS for 1 week then 2 po q HS for 2 weeks then 3 po q HS 01/24/2018 03/26/2018 Inactive Xanax 1 mg tablet RxNorm: 578842 1-2 Tablet(s) PO QHS as needed for sleep 01/24/2018 03/24/2018 Inactive Generic For:XANAX 1M G 10/11/2016 11:15:13 AM prednisone 20 mg tablet RxNorm: 312382 1 Tablet(s) PO T ID for 3 days then 1 po BID for 3 days then one daily for 3 days 12/29/2017 03/26/2018 Inactiv e prednisone 20 mg tablet RxNorm: 525425 3 Tablet(s) PO T ID for 3 days then 1 po BID for 3 days then one daily for 3 days 12/29/2017 12/29/2017 Inactiv e Macrobid 100 mg capsule RxNorm: 984788 1 Capsule(s) PO BID 12/30/19 18 01/02/2018 Inactive Xanax 1 mg tablet RxNorm: 373221 1-2 Tablet(s) PO QHS as needed for sleep 12/28/2017 01/23/2018 Inactive Generic For:XANAX 1M G 10/11/2016 11:15:13 AM Medrol (Walter) 4 mg tablets in a dose pack RxNorm: 011873 Tablet(s) PO take as directed 12/01/2017 03/26/2018 Inactive Keflex 750 mg capsule RxNorm: 298195 1 Capsule(s) PO BID 12/01/2017 1 Inactive clindamycin HCl 300 mg capsule RxNorm: 453917 2 Capsule(s) PO TID 1 12/08/2017 Inactive Xanax 1 mg tablet RxNorm: 909662 1-2 Tablet(s) PO QHS as needed for sleep 11/28/2017 12/27/2017 Inactive Generic For:XANAX 1M G 10/11/2016 11:15:13 AM mupirocin 2 % topical ointment RxNorm: 265452 1 Application OTIC BI D 11/28/2017 08/09/2018 Inactive Xanax 1 mg tablet RxNorm: 130991 1-2 Tablet(s) PO QHS as needed for sleep 10/27/2017 11/25/2017 Inactive Generic For:XANAX 1M G 10/11/2016 11:15:13 AM Macrobid 100 mg capsule RxNorm: 104314 1 Capsule(s) PO BID 10/11/19 18 10/16/2017 Inactive Medrol (Walter) 4 mg tablets in a dose pack RxNorm: 520760 Tablet(s) PO take as directed 10/10/2017 11/16/2017 Inactive Xanax 1 mg tablet RxNorm: 910521 1-2 Tablet(s) PO QHS as needed for sleep 09/28/2017 10/26/2017 Inactive Generic For:XANAX 1M G 10/11/2016 11:15:13 AM Xanax 1 mg tablet RxNorm: 425492 1-2 Tablet(s) PO QHS as needed for sleep 08/30/2017 09/27/2017 Inactive Generic For:XANAX 1M G 10/11/2016 11:15:13 AM Xanax 1 mg tablet RxNorm: 118972 1-2 Tablet(s) PO QHS as needed for sleep 08/30/2017 08/29/2017 Inactive Generic For:XANAX 1M G 10/11/2016 11:15:13 AM Xanax 1 mg tablet RxNorm: 310979 1-2 Tablet(s) PO QHS as needed for sleep 08/01/2017 08/29/2017 Inactive Generic For:XANAX 1M G 10/11/2016 11:15:13 AM Xanax 1 mg tablet RxNorm: 196235 1-2 Tablet(s) PO QHS as needed for sleep 06/29/2017 2017 Inactive Generic For:XANAX 1M G 10/11/2016 11:15:13 AM Claritin-D 24 Hour 10 mg-240 mg tablet,extended release RxNo rm: 3591437 1 Tablet(s) PO QD 06/29/2017 2017 Inactive levothyroxine 88 mcg tablet RxNorm: 157704 1 Tablet(s) PO QD 201709/10/2017 Inactive Xanax 1 mg tablet RxNorm: 582090 1-2 Tablet(s) PO QHS as needed for sleep 05/26/2017 06/28/2017 Inactive Generic For:XANAX 1M G 10/11/2016 11:15:13 AM Claritin-D 24 Hour 10 mg-240 mg tablet,extended release RxNo rm: 9675277 1 Tablet(s) PO QD 05/26/2017 06/24/2017 Inactive bupropion HCl SR 100 mg tablet,12 hr sustained-release RxNor m: 372473 Tablet(s) Take 1 tablet by mouth two times daily 04/06/2017 12/31/2017 Inactive - Ref: [id number] Xanax 1 mg tablet RxNorm: 051462 1-2 Tablet(s) PO QHS as needed for sleep 03/24/2017 05/22/2017 Inactive Generic For:XANAX 1M G 10/11/2016 11:15:13 AM Medrol (Walter) 4 mg tablets in a dose pack RxNorm: 676014 Tablet(s) P O 02/16/2017 03/27/2017 Inactive Xanax 1 mg tablet RxNorm: 239301 Tablet(s) TAKE ONE T O TWO TABLETS BY MOUTH AT BEDTIME NEEDED 02/16/2017 03/17/2017 Inactive Generic For:XA NAX 1MG 10/11/2016 11:15:13 AM Claritin-D 24 Hour 10 mg-240 mg tablet,extended release RxNo rm: 8256924 1 Tablet(s) PO QD 02/16/2017 04/16/2017 Inactive cefdinir 300 mg capsule RxNorm: 362394 2 Capsule(s) PO QD 02/16/2017 02/25/2017 Inactive Celexa 40 mg tablet RxNorm: 820267 Tablet(s) Take 1 tablet by m outh daily 12/23/2016 09/18/2017 Inactive - Ref: [id number] Xanax 1 mg tablet RxNorm: 447939 Tablet(s) TAKE ONE T O TWO TABLETS BY MOUTH AT BEDTIME NEEDED 12/16/2016 01/14/2017 Inactive Generic For:XA NAX 1MG 10/11/2016 11:15:13 AM Xanax 1 mg tablet RxNorm: 335372 Tablet(s) TAKE ONE T O TWO TABLETS BY MOUTH AT BEDTIME NEEDED 11/18/2016 12/15/2016 Inactive Generic For:XA NAX 1MG 10/11/2016 11:15:13 AM Xanax 1 mg tablet RxNorm: 534399 TAKE ONE TO TWO TABL ETS BY MOUTH AT BEDTIME NEEDED 10/11/2016 11/17/2016 Inactive Generic For:XANA X 1MG 10/11/2016 11:15:13 AM Mobic 15 mg tablet RxNorm: 200255 1 Tablet(s) PO QD 09/06/20162016 Inactive Claritin-D 24 Hour 10 mg-240 mg tablet,extended release RxNo rm: 7277875 1 Tablet(s) PO QD 09/02/2016 11/30/2016 Inactive prednisone 20 mg tablet RxNorm: 282478 1 Tablet(s) PO T ID for 3 days then 1 po BID for 3 days then one daily for 3 days 08/16/2016 03/27/2017 Inactiv e cefdinir 300 mg capsule RxNorm: 015678 2 Capsule(s) PO QD 08/16/2016 09/05/2016 Inactive Xanax 1 mg tablet RxNorm: 169901 TAKE ONE TO TWO TABL ETS BY MOUTH AT BEDTIME NEEDED 08/05/2016 10/11/2016 Inactive Generic For:XANA X 1MG 08/05/2016 2:27:03 PM08/04/2016 4:15:22 PM Singulair 10 mg tablet RxNorm: 573456 1 Tablet(s) PO QHS 07/06/2016 0 09/03/2016 Inactive prednisone 20 mg tablet RxNorm: 550009 1 Tablet(s) PO T ID for 3 days then 1 po BID for 3 days then one daily for 3 days 06/15/2016 07/05/2016 Inactiv e Singulair 10 mg tablet RxNorm: 332281 1 Tablet(s) PO QHS 06/15/2016 0 07/05/2016 Inactive cefdinir 300 mg capsule RxNorm: 999087 2 Capsule(s) PO QD 06/15/2016 07/05/2016 Inactive Xanax 1 mg tablet RxNorm: 471102 1-2 Tablet(s) PO QHS 05/21/201610/2016 Inactive Claritin-D 24 Hour 10 mg-240 mg tablet,extended release RxNo rm: 2843111 1 Tablet(s) PO QD 04/09/2016 07/07/2016 Inactive Xanax 1 mg tablet RxNorm: 603224 1-2 Tablet(s) PO QHS 03/23/201604/29 Inactive levothyroxine 88 mcg tablet RxNorm: 477359 1 Tablet(s) PO QD 201606/13/2017 Inactive bupropion HCl SR 100 mg tablet,sustained-release RxNorm: 993 503 Take 1 tablet by mouth two times daily 03/15/2016 12/09/2016 Inactive - Ref: 20 4576085 Celexa 40 mg tablet RxNorm: 382160 Take 1 tablet by mouth daily 12/23/2016 Inactive - Ref: [id number] Xanax 1 mg tablet RxNorm: 235104 1-2 Tablet(s) PO QHS 02/17/201603/01 Inactive levothyroxine 88 mcg tablet RxNorm: 807692 1 Tablet(s) PO QD 201502/22/2016 Inactive Xanax 1 mg tablet RxNorm: 436091 1-2 Tablet(s) PO QHS 11/25/201511/29 Inactive levothyroxine 88 mcg tablet RxNorm: 802095 1 Tablet(s) PO QD 201511/24/2015 Inactive temazepam 30 mg capsule RxNorm: 030017 1 Capsule(s) PO QHS 11/13/19 16 11/24/2015 Inactive Xanax 1 mg tablet RxNorm: 543234 1-2 Tablet(s) PO QHS 09/15/201510/29 Inactive Celexa 40 mg tablet RxNorm: 151437 1 Tablet(s) PO QD 1 Tablet(s ) PO QD 09/10/2015 09/16/2015 Inactive bupropion HCl SR 100 mg tablet,sustained-release RxNorm: 993 503 1 Tablet(s) PO BID 09/10/2015 09/23/2015 Inactive Xanax 1 mg tablet RxNorm: 919473 1-2 Tablet(s) PO QHS 09/10/201508/28 Inactive Xanax 1 mg tablet RxNorm: 097422 1-2 Tablet(s) PO QHS 08/11/201508/28 Inactive cyclobenzaprine 10 mg tablet RxNorm: 677395 1 Tablet(s) PO TID prn spasm 07/09/2015 11/23/2018 Inactive Celexa 40 mg tablet RxNorm: 564059 1 Tablet(s) PO QD 06/06/201508/03 Inactive Xanax 1 mg tablet RxNorm: 352038 1-2 Tablet(s) PO QHS 06/04/201505/2015 Inactive levothyroxine 88 mcg tablet RxNorm: 911726 1 Tablet(s) PO QD 201511/23/2015 Inactive Ceftin 500 mg tablet RxNorm: 388611 1 Tablet(s) PO BID 05/05/2015 Inactive Ceftin 500 mg tablet RxNorm: 527390 1 Tablet(s) PO BID 05/05/201507/2015 Inactive meloxicam 15 mg tablet RxNorm: 551166 1 Tablet(s) PO QD 04/16/2015 Inactive meloxicam 15 mg tablet RxNorm: 060887 1 Tablet(s) PO QD 04/16/2015 Inactive diclofenac sodium 75 mg tablet,delayed release RxNorm: 51053 6 1 Tablet(s) PO BID 04/04/2015 04/15/2015 Inactive diclofenac sodium 75 mg tablet,delayed release RxNorm: 23178 6 1 Tablet(s) PO BID 04/04/2015 04/03/2015 Inactive Tivorbex 40 mg capsule RxNorm: 9856937 1 Capsule(s) PO TID 03/24/19 16 04/02/2015 Inactive bupropion HCl SR 100 mg tablet,sustained-release RxNorm: 993 503 1 Tablet(s) PO BID 03/11/2015 09/06/2015 Inactive cyclobenzaprine 10 mg tablet RxNorm: 250877 1 Tablet(s) PO TID prn spasm 03/11/2015 07/08/2015 Inactive levothyroxine 88 mcg tablet RxNorm: 015998 1 Tablet(s) PO QD 201405/27/2015 Inactive Claritin-D 24 Hour 10 mg-240 mg tablet,extended release RxNo rm: 0925945 1 Tablet(s) PO QD 02/27/2015 05/27/2015 Inactive cefuroxime axetil 500 mg tablet RxNorm: 891697 1 Tablet(s) PO BID 1 03/12/2015 Inactive Celexa 40 mg tablet RxNorm: 647894 1 Tablet(s) PO QD 02/05/201504/05 Inactive levothyroxine 75 mcg tablet RxNorm: 771748 1 Tablet(s) PO QD 201402/26/2015 Inactive Celexa 40 mg tablet RxNorm: 764653 1 Tablet(s) PO QD 10/09/201402/04 Inactive Activella 1 mg-0.5 mg tablet RxNorm: 1193863 1 Tablet(s) PO QD 08/2802/26/2015 Inactive bupropion HCl SR 100 mg tablet,sustained-release RxNorm: 993 503 1 Tablet(s) PO BID 09/12/2014 03/10/2015 Inactive levothyroxine 75 mcg tablet RxNorm: 384138 1 Tablet(s) PO QD 201412/09/2014 Inactive levothyroxine 75 mcg tablet RxNorm: 663333 1 Tablet(s) PO QD 201409/11/2014 Inactive Celexa 40 mg tablet RxNorm: 789968 1 Tablet(s) PO QD 08/12/201410/08 Inactive Xanax 1 mg tablet RxNorm: 382661 1-2 Tablet(s) PO QHS 08/12/201409/28 Inactive Claritin-D 24 Hour 10 mg-240 mg tablet,extended release RxNo rm: 7349435 1 Tablet(s) PO QD 06/13/2014 09/10/2014 Inactive cyclobenzaprine 10 mg tablet RxNorm: 174833 1 Tablet(s) PO TID prn spasm 06/12/2014 02/26/2015 Inactive Xanax 1 mg tablet RxNorm: 377899 1-2 Tablet(s) PO QHS 05/09/201406/28 Inactive levothyroxine 75 mcg tablet RxNorm: 420086 1 Tablet(s) PO QD 201407/08/2014 Inactive cephalexin 500 mg capsule RxNorm: 459801 1 Capsule(s) PO QOD 201402/26/2015 Inactive simvastatin 10 mg tablet RxNorm: 586389 1 Tablet(s) PO QHS 04/10/19 15 06/12/2014 Inactive Xanax 1 mg tablet RxNorm: 447356 1-2 Tablet(s) PO QHS 04/10/201404/28 Inactive levothyroxine 75 mcg tablet RxNorm: 051216 1 Tablet(s) PO QD 201404/09/2014 Inactive levothyroxine 75 mcg capsule RxNorm: 217907 1 Capsule(s) PO QD 03/3104/10/2014 Inactive Activella 1 mg-0.5 mg tablet RxNorm: 6028661 1 Tablet(s) PO QD 03/0109/11/2014 Inactive bupropion HCl SR 100 mg tablet,sustained-release RxNorm: 993 503 1 Tablet(s) PO BID 03/04/2014 08/30/2014 Inactive Activella 1 mg-0.5 mg tablet RxNorm: 3988637 1 Tablet(s) PO QD 01/2803/18/2014 Inactive levothyroxine 75 mcg capsule RxNorm: 649149 1 Capsule(s) PO QD 12/2904/08/2014 Inactive simvastatin 10 mg tablet RxNorm: 462522 1 Tablet(s) PO QHS 01/10/20 14 04/08/2014 Inactive cyclobenzaprine 10 mg tablet RxNorm: 372539 1 Tablet(s) PO TID prn spasm 01/09/2014 04/08/2014 Inactive Cipro 500 mg tablet RxNorm: 597940 1 Tablet(s) PO BID 12/25/201304/2013 Inactive Cipro 500 mg tablet RxNorm: 585985 1 Tablet(s) PO BID 12/25/201311/29 Inactive bupropion HCl SR 100 mg tablet,sustained-release RxNorm: 993 503 1 Tablet(s) PO QAM 12/11/2013 03/03/2014 Inactive cephalexin 500 mg capsule RxNorm: 340369 1 Capsule(s) PO QOD 201304/09/2014 Inactive Xanax 1 mg tablet RxNorm: 189402 1-2 Tablet(s) PO QHS 10/15/201310/29 Inactive simvastatin 10 mg tablet RxNorm: 201865 1 Tablet(s) PO QHS 10/11/19 14 01/07/2014 Inactive Celexa 40 mg tablet RxNorm: 817054 Tablet(s) PO TAKE 1 TABLET BY MOUTH ONCE DAILY. 09/18/2013 09/17/2013 Inactive Xanax 1 mg tablet RxNorm: 017430 1-2 Tablet(s) PO QHS 08/13/201308/28 Inactive simvastatin 10 mg tablet RxNorm: 798116 1 Tablet(s) PO QHS 07/12/19 14 10/08/2013 Inactive bupropion HCl SR 100 mg tablet,sustained-release RxNorm: 993 503 1 Tablet(s) PO QAM 05/22/2013 11/17/2013 Inactive Pamelor 10 mg capsule RxNorm: 951152 1 Capsule(s) PO QHS for PLATA /sleep 05/22/2013 06/04/2013 Inactive Xanax 1 mg tablet RxNorm: 875685 1-2 Tablet(s) PO QHS 05/15/201305/29 Inactive Pamelor 10 mg capsule RxNorm: 584921 1 Capsule(s) PO QHS for PLATA /sleep 05/15/2013 05/21/2013 Inactive Xanax 1 mg tablet RxNorm: 237585 1 Tablet(s) PO QHS 04/27/20132013 Inactive Zovirax 800 mg tablet RxNorm: 668288 1 Tablet(s) PO TID 04/05/2013 Inactive Xanax 1 mg tablet RxNorm: 543019 1 Tablet(s) PO QHS 04/03/2013 No Sto p Date Active bupropion HCl SR 100 mg tablet,sustained-release RxNorm: 993 503 1 Tablet(s) PO QAM 03/26/2013 05/21/2013 Inactive bupropion HCl SR 100 mg tablet,sustained-release RxNorm: 993 503 1 Tablet(s) PO QAM 03/06/2013 03/25/2013 Inactive Pamelor 10 mg capsule RxNorm: 265088 1 Capsule(s) PO QHS for PLATA /sleep 02/14/2013 05/14/2013 Inactive levothyroxine 75 mcg capsule RxNorm: 707004 1 Capsule(s) PO QD 12/2901/08/2014 Inactive simvastatin 10 mg tablet RxNorm: 346149 1 Tablet(s) PO QHS TAKE 1 TABLET BY MOUTH ONCE DAILY AT BEDTIME. 01/15/2013 07/10/2013 Inactive cyclobenzaprine 10 mg tablet RxNorm: 815933 1 Tablet(s) PO TID prn spasm 12/25/2012 06/22/2013 Inactive Pamelor 10 mg capsule RxNorm: 991936 1 Capsule(s) PO QHS for PLATA /sleep 11/29/2012 02/14/2013 Inactive Celexa 40 mg tablet RxNorm: 910351 Tablet(s) PO TAKE 1 TABLET BY MOUTH ONCE DAILY. 10/11/2012 09/17/2013 Inactive simvastatin 10 mg tablet RxNorm: 183276 Tablet(s) PO TA KE 1 TABLET BY MOUTH ONCE DAILY AT BEDTIME. 10/11/2012 01/14/2013 Inactive simvastatin 10 mg tablet RxNorm: 050237 1 Tablet(s) PO QD 07/11/2012 10/08/2012 Inactive simvastatin 10 mg tablet RxNorm: 398284 1 Tablet(s) PO QD 04/14/2012 07/11/2012 Inactive simvastatin 10 mg tablet RxNorm: 430266 1 Tablet(s) PO QD 04/14/2012 04/13/2012 Inactive Celexa 40 mg tablet RxNorm: 745139 1 Tablet(s) PO QD 03/15/201209/10 Inactive cyclobenzaprine 10 mg tablet RxNorm: 782224 1 Tablet(s) PO TID prn spasm 02/02/2012 02/01/2012 Inactive cyclobenzaprine 10 mg tablet RxNorm: 660414 1 Tablet(s) PO TID prn spasm 02/02/2012 07/30/2012 Inactive Diflucan 100 mg Tab RxNorm: 897593 1 Tablet(s) PO QD 08/17/201108/22 Inactive Cipro 250 mg Tab RxNorm: 940309 1 Tablet(s) PO QD 08/17/2011 10/15/19 12 Inactive Levaquin 500 mg Tab RxNorm: 830730 1 Tablet(s) PO QD 08/17/201108/22 Inactive Pyridium 200 mg Tab RxNorm: 5096980 1 Tablet(s) PO TID 10/14/2010 Inactive may turn urine orange-red color. Cipro 500 mg Tab RxNorm: 812748 1 Tablet(s) PO BID 10/14/2010 011 Inactive levothyroxine 75 mcg capsule RxNorm: 344266 1 Capsule(s) PO QD 12/3001/14/2011 Inactive Vitamin D3 5,000 unit tablet RxNorm: 929613 1 Tablet(s) PO QD No Star t Date Active Nasacort 55 mcg nasal spray aerosol RxNorm: 8060966 2 Sp ray NASAL each nostril QHS No Start Date Active cyclobenzaprine 10 mg tablet RxNorm: 899796 1 Tablet(s) PO TID as needed No Start Date 11/22/2018 Inactive Vitamin D2 1,000 unit capsule RxNorm: 466819 3 Capsule(s) PO QD No Start Date 11/16/2017 Inactive diclofenac sodium 75 mg tablet,delayed release RxNorm: 54631 6 1 Tablet(s) PO BID No Start Date 03/16/2016 Inactive cephalexin 500 mg capsule RxNorm: 022812 1 Capsule(s) PO QOD No Sta rt Date 12/04/2013 Inactive cyclobenzaprine 10 mg tablet RxNorm: 045130 1 Tablet(s) PO QHS No S tart Date 02/01/2012 Inactive loratadine 10 mg tablet RxNorm: 244710 1 Tablet(s) PO QHS No Start Date 05/14/2019 Inactive hydrocodone 5 mg-acetaminophen 500 mg tablet RxNorm: 684647 1 -2 Tablet(s) PO Q6H as needed No Start Date 08/09/2018 Inactive etodolac 400 mg tablet RxNorm: 054752 1 Tablet(s) PO TID No Start D ate 09/17/2018 Inactive Xanax 1 mg tablet RxNorm: 917173 1 Tablet(s) PO QHS No Start Date 04/2013 Inactive Vitamin D3 1,000 unit capsule RxNorm: 913626 1 Capsule(s) PO QD No Start Date 06/12/2014 Inactive estradiol 2 mg tablet RxNorm: 574098 1/2 Tablet(s) PO QD No Start D ate 03/05/2013 Inactive Celexa 40 mg tablet RxNorm: 962372 1 Tablet(s) PO QD No Start Date Inactive Activella 1 mg-0.5 mg tablet RxNorm: 8333488 1 Tablet(s) PO QD No S tart Date 07/10/2012 Inactive medroxyprogesterone 5 mg tablet RxNorm: 3043951 1/2 Tablet(s) PO QD No Start Date 03/05/2013 Inactive levothyroxine 88 mcg tablet RxNorm: 675145 1 Tablet(s) PO QD No Sta rt Date 02/26/2015 Inactive Keflex 500 mg capsule RxNorm: 290999 1 Capsule(s) PO PRN No Start D ate 08/16/2011 Inactive Activella 1 mg-0.5 mg tablet RxNorm: 4501482 1 Tablet(s) PO QHS No Start Date 03/27/2017 Inactive Activella 1 mg-0.5 mg tablet RxNorm: 2198560 1 Tablet(s) PO QD No S tart Date 02/06/2014 Inactive Flexeril 10 mg Tab RxNorm: 480302 1 Tablet(s) PO TID No Start Date Inactive prn spasm simvastatin 10 mg tablet RxNorm: 838053 1 Tablet(s) PO QD No Start Date 04/13/2012 Inactive Medication Administered No Medication Administered data Immunizations Vaccine Codes Date Status Influenza CVX: 135 01/16/2019 Complete Pneumococcal CVX: 133 01/16/2019 Complete Results No Results data Procedures Procedure Codes Date URINALYSIS NONAUTO W/O SCOPE CPT-4: 17490 07/17/2019 URINE CULTURE/ COLONY COUNT CPT-4: 53161 07/17/2019 DEXAMETHASONE SODIUM PHOS CPT-4: J1100 05/14/2019 THER/PROPH/DIAG INJ SC/IM CPT-4: 40077 05/14/2019 TRIAMCINOLONE ACET INJ NOS CPT-4: J3301 05/14/2019 FLU VACC PRSV FREE INC ANTIG 65 AND OLDER CPT-4: 89623 01/16/2019 FLU VACC PRSV FREE INC ANTIG 65 AND OLDER CPT-4: 34512 01/16/2019 PNEUMOCOCCAL VACC 13 NARESH IM CPT-4: 51391 01/16/2019 SKIN FUNGI CULTURE CPT-4: 91350 01/16/2019 IMMUNIZATION ADMIN CPT-4: 00133 01/16/2019 IMMUNIZATION ADMIN EACH ADD CPT-4: 63585 01/16/2019 THER/PROPH/DIAG INJ SC/IM CPT-4: 49854 01/17/2018 KETOROLAC TROMETHAMINE INJ CPT-4: J1885 01/17/2018 THER/PROPH/DIAG INJ SC/IM CPT-4: 78588 01/17/2018 PROMETHAZINE HCL INJECTION CPT-4: J2550 01/17/2018 URINALYSIS NONAUTO W/O SCOPE CPT-4: 65796 12/29/2017 URINE CULTURE/ COLONY COUNT CPT-4: 60238 12/29/2017 THER/PROPH/DIAG INJ SC/IM CPT-4: 80736 11/30/2017 TRIAMCINOLONE ACET INJ NOS CPT-4: J3301 11/30/2017 DEXAMETHASONE SODIUM PHOS CPT-4: J1100 11/30/2017 CEFTRIAXONE SODIUM INJECTION CPT-4: J0696 11/29/2017 THER/PROPH/DIAG INJ SC/IM CPT-4: 06600 11/29/2017 CEFTRIAXONE SODIUM INJECTION CPT-4: J0696 11/28/2017 THER/PROPH/DIAG INJ SC/IM CPT-4: 67307 11/28/2017 URINALYSIS NONAUTO W/O SCOPE CPT-4: 15344 10/10/2017 THER/PROPH/DIAG INJ SC/IM CPT-4: 78946 10/10/2017 TRIAMCINOLONE ACET INJ NOS CPT-4: J3301 10/10/2017 DEXAMETHASONE SODIUM PHOS CPT-4: J1100 10/10/2017 CEFTRIAXONE SODIUM INJECTION CPT-4: J0696 10/10/2017 THER/PROPH/DIAG INJ SC/IM CPT-4: 62021 10/10/2017 URINE CULTURE/ COLONY COUNT CPT-4: 00307 10/10/2017 THER/PROPH/DIAG INJ SC/IM CPT-4: 12843 11/02/2016 KETOROLAC TROMETHAMINE INJ CPT-4: J1885 11/02/2016 THER/PROPH/DIAG INJ SC/IM CPT-4: 91126 06/15/2016 TRIAMCINOLONE ACET INJ NOS CPT-4: J3301 06/15/2016 DEXAMETHASONE SODIUM PHOS CPT-4: J1100 06/15/2016 THER/PROPH/DIAG INJ SC/IM CPT-4: 00160 04/09/2016 KETOROLAC TROMETHAMINE INJ CPT-4: J1885 04/09/2016 PROMETHAZINE HCL INJECTION CPT-4: J2550 04/09/2016 EXC TR-EXT B9+ERASMO 0.5 CM< CPT-4: 84729 06/12/2015 URINALYSIS NONAUTO W/O SCOPE CPT-4: 33748 05/05/2015 URINE CULTURE/ COLONY COUNT CPT-4: 25585 05/05/2015 URINALYSIS NONAUTO W/O SCOPE CPT-4: 26488 03/24/2015 URINALYSIS NONAUTO W/O SCOPE CPT-4: 72343 02/27/2015 URINE CULTURE/ COLONY COUNT CPT-4: 71859 02/27/2015 THER/PROPH/DIAG INJ SC/IM CPT-4: 84970 04/18/2014 KETOROLAC TROMETHAMINE INJ CPT-4: J1885 04/18/2014 THER/PROPH/DIAG INJ SC/IM CPT-4: 39191 06/05/2013 TRIAMCINOLONE ACET INJ NOS CPT-4: J3301 06/05/2013 THER/PROPH/DIAG INJ SC/IM CPT-4: 09504 11/29/2012 KETOROLAC TROMETHAMINE INJ CPT-4: J1885 11/29/2012 URINALYSIS NONAUTO W/O SCOPE CPT-4: 77566 07/11/2012 URINE CULTURE/ COLONY COUNT CPT-4: 79203 07/11/2012 OCCULT BLOOD FECES CPT-4: 40256 02/17/2012 URINALYSIS NONAUTO W/O SCOPE CPT-4: 26667 08/27/2011 URINE CULTURE/ COLONY COUNT CPT-4: 94420 08/27/2011 URINALYSIS NONAUTO W/O SCOPE CPT-4: 23798 08/17/2011 URINE CULTURE/ COLONY COUNT CPT-4: 65290 08/17/2011 URINALYSIS NONAUTO W/O SCOPE CPT-4: 38827 12/28/2010 URINE CULTURE/ COLONY COUNT CPT-4: 23076 12/28/2010 URINALYSIS NONAUTO W/O SCOPE CPT-4: 83090 11/09/2010 URINE CULTURE/ COLONY COUNT CPT-4: 10698 11/09/2010 URINALYSIS NONAUTO W/O SCOPE CPT-4: 44337 10/29/2010 URINE CULTURE/ COLONY COUNT CPT-4: 36736 10/29/2010 URINE CULTURE/ COLONY COUNT CPT-4: 06594 10/14/2010 URINALYSIS NONAUTO W/O SCOPE CPT-4: 14268 10/14/2010 Vital Signs Date Vital 07/17/2019 Blood [...] 1: 122/74 Code: 8480-6 BMI: 22.0 Code: 39885-9 Heart Rate 1: 72 bpm Height: 5'3" [...] 1: 126/72 Code: 8480-6 BMI: 22.7 Code: 91119-9 Heart Rate 1: 72 bpm Height: 5'3" [...] 1: 112/70 Code: 8480-6 BMI: 22.0 Code: 10797-7 Heart Rate 1: 80 bpm Height: 5'3" [...] 1: 122/64 Code: 8480-6 BMI: 21.4 Code: 72180-0 Heart Rate 1: 88 bpm Height: 5'3" Respiratory Rate: 22 bpm SpO2: 96% Tempera ture: 36.8 (C) / 98.2 (F) Weight: 121 lbs 06/22/2017 Blood Pressure 1: 124/78 Code: 8480-6 BMI: 21.6 Code: 77905-7 Heart Rate 1: 76 bpm Height: 5'3" Respiratory Rate: 20 bpm Temperature: 36 .8 (C) / 98.3 (F) Weight: 122 lbs 03/28/2017 Blood Pressure 1: 92/60 Code: 8480-6 BMI: 20.4 C ode: 76781-2 Heart Rate 1: 72 bpm Height: 5'3" Respiratory Rate: 20 bpm Temperature: 36 .9 (C) / 98.4 (F) Weight: 115 lbs 02/16/2017 Blood Pressure 1: 106/70 Code: 8480-6 BMI: 21.3 Code: 39397-3 Heart Rate 1: 82 bpm Height: 5'3" Respiratory Rate: 22 bpm SpO2: 97% Tempera ture: 36.1 (C) / 97.0 (F) Weight: 120 lbs 09/06/2016 Blood Pressure 1: 118/64 Code: 8480-6 BMI: 22.7 Code: 39815-1 Heart Rate 1: 78 bpm Height: 5'3" Respiratory Rate: 20 bpm SpO2: 98% Tempera ture: 36.2 (C) / 97.2 (F) Weight: 128 lbs 08/16/2016 Blood Pressure 1: 118/78 Code: 8480-6 BMI: 22.1 Code: 35876-8 Heart Rate 1: 78 bpm Height: 5'3" Respiratory Rate: 20 bpm SpO2: 97% Tempera ture: 36.2 (C) / 97.1 (F) Weight: 125 lbs 07/19/2016 Blood Pressure 1: 116/68 Code: 8480-6 BMI: 22.5 Code: 14188-8 Heart Rate 1: 76 bpm Height: 5'3" Respiratory Rate: 20 bpm Temperature: 36 .8 (C) / 98.2 (F) Weight: 127 lbs 07/06/2016 Blood Pressure 1: 106/70 Code: 8480-6 BMI: 22.5 Code: 73850-8 Heart Rate 1: 72 bpm Height: 5'3" Respiratory Rate: 20 bpm SpO2: 97% Tempera ture: 36.8 (C) / 98.2 (F) Weight: 127 lbs 06/15/2016 Blood Pressure 1: 136/76 Code: 8480-6 BMI: 22.9 Code: 96994-5 Heart Rate 1: 74 bpm Height: 5'3" Respiratory Rate: 18 bpm SpO2: 98% Tempera ture: 36.4 (C) / 97.6 (F) Weight: 129 lbs 04/09/2016 Blood Pressure 1: 124/78 Code: 8480-6 BMI: 23.0 Code: 19832-7 Heart Rate 1: 86 bpm Height: 5'3" Respiratory Rate: 20 bpm SpO2: 96% Tempera ture: 36.5 (C) / 97.7 (F) Weight: 130 lbs 03/17/2016 Blood Pressure 1: 116/74 Code: 8480-6 BMI: 23.4 Code: 34322-1 Heart Rate 1: 84 bpm Height: 5'3" Respiratory Rate: 20 bpm SpO2: 97% Tempera ture: 36.8 (C) / 98.3 (F) Weight: 132 lbs 11/13/2015 Blood Pressure 1: 124/78 Code: 8480-6 BMI: 23.4 Code: 32648-8 Heart Rate 1: 88 bpm Height: 5'3" Respiratory Rate: 24 bpm SpO2: 98% Tempera ture: 36.8 (C) / 98.2 (F) Weight: 132 lbs 06/12/2015 Blood Pressure 1: 126/78 Code: 8480-6 BMI: 23.6 Code: 54367-1 Heart Rate 1: 80 bpm Height: 5'3" Respiratory Rate: 20 bpm Temperature: 36 .9 (C) / 98.4 (F) Weight: 133 lbs 04/22/2015 Blood Pressure 1: 126/68 Code: 8480-6 BMI: 23.6 Code: 02125-1 Heart Rate 1: 80 bpm Height: 5'3" Respiratory Rate: 20 bpm Temperature: 36 .6 (C) / 97.9 (F) Weight: 133 lbs 03/24/2015 Blood Pressure 1: 116/66 Code: 8480-6 BMI: 22.9 Code: 16022-4 Heart Rate 1: 74 bpm Height: 5'3" Respiratory Rate: 20 bpm Temperature: 36 .4 (C) / 97.6 (F) Weight: 129 lbs 02/27/2015 Blood Pressure 1: 106/64 Code: 8480-6 BMI: 22.7 Code: 40005-7 Heart Rate 1: 74 bpm Height: 5'3" Respiratory Rate: 20 bpm Temperature: 36 .8 (C) / 98.2 (F) Weight: 128 lbs 06/13/2014 Blood Pressure 1: 104/66 Code: 8480-6 BMI: 22.7 Code: 72873-3 Heart Rate 1: 84 bpm Height: 5'3" Respiratory Rate: 20 bpm Temperature: 37 .0 (C) / 98.6 (F) Weight: 128 lbs 04/18/2014 Blood Pressure 1: 112/62 Code: 8480-6 BMI: 22.0 Code: 41877-4 Heart Rate 1: 82 bpm Height: 5'3" Respiratory Rate: 18 bpm Temperature: 36 .4 (C) / 97.6 (F) Weight: 124 lbs 12/05/2013 Blood Pressure 1: 106/70 Code: 8480-6 BMI: 23.7 Code: 79350-0 Heart Rate 1: 84 bpm Height: 5'3" [...] 1: 126/88 Code: 8480-6 BMI: 22.3 Code: 30085-1 Heart Rate 1: 96 bpm Height: 5'4" Respiratory Rate: 20 bpm Temperature: 37 .7 (C) / 99.9 (F) Weight: 130 lbs 11/29/2012 Blood Pressure 1: 122/76 Code: 8480-6 BMI: 23.0 Code: 64573-1 Heart Rate 1: 84 bpm Height: 5'4" Respiratory Rate: 20 bpm Temperature: 36 .9 (C) / 98.4 (F) Weight: 134 lbs 09/26/2012 Blood Pressure 1: 114/76 Code: 8480-6 BMI: 23.0 Code: 47314-8 Heart Rate 1: 84 bpm Height: 5'4" Respiratory Rate: 20 bpm Temperature: 37 .3 (C) / 99.1 (F) Weight: 134 lbs 07/11/2012 Blood Pressure 1: 126/78 Code: 8480-6 BMI: 23.7 Code: 05369-9 Heart Rate 1: 76 bpm Height: 5'4" Respiratory Rate: 20 bpm Temperature: 37 .1 (C) / 98.7 (F) Weight: 138 lbs 02/02/2012 Blood Pressure 1: 108/70 Code: 8480-6 BMI: 23.2 Code: 57455-0 Heart Rate 1: 88 bpm Height: 5'4" Respiratory Rate: 20 bpm Temperature: 36 .4 (C) / 97.6 (F) Weight: 135 lbs 08/17/2011 Blood Pressure 1: 108/70 Code: 8480-6 BMI: 23.2 Code: 65846-2 Heart Rate 1: 72 bpm Height: 5'4" Respiratory Rate: 20 bpm Temperature: 36 .8 (C) / 98.2 (F) Weight: 135 lbs 10/14/2010 Blood Pressure 1: 120/72 Code: 8480-6 BMI: 23.4 Code: 52709-5 Heart Rate 1: 78 bpm Height: 5'3" [...] dysuria. Encounters Encounter Performer Location Codes Date ([id number]) OFFICE/OUTPATIENT VISIT EST Diagnosis: Urinary tract infection, site not specified[ICD10: N39.0] Diagnosis: Dysuria[ICD10: R30.0] Vandana CARROLL DO [facility] CPT-4: 85067 07/17/2019 ([id number]) OFFICE/OUTPATIENT VISIT EST Diagnosis: Allergic dermatitis[ICD10: L23.9] Alexandra CARROLL DO [employer] CPT-4: 05543 06/26/2019 ([id number]) OFFICE/OUTPATIENT VISIT EST Diagnosis: Contact dermatitis due to plant[ICD10: L25.5] Diagnosis: Cellulitis of left arm[ICD10: L03.114] Vandana Amritasasha CARROLL [employer] CPT-4: 86521 05/14/2019 ([id number]) OFFICE/OUTPATIENT VISIT EST Diagnosis: Ventral hernia[ICD10: K43.9] Diagnosis: Incisional hernia[ICD10: K43.2] Alexandra CARROLL DO [employer] CPT-4: 16741 04/10/2019 ([id number]) OFFICE/OUTPATIENT VISIT EST Diagnosis: Insomnia[ICD10: G47.00] Diagnosis: Thrombocytosis[ICD10: D47.3] Alexandra CARROLL [employer] CPT-4: 04686 02/14/2019 ([id number]) OFFICE/OUTPATIENT VISIT EST Diagnosis: Small bowel obstruction[ICD10: K56.609] Diagnosis: FLU VACCINE[ICD10: Z23] Diagnosis: PNEUMOCOCCAL VACCINE[ICD10: Z23] Diagnosis: Onychomycosis[ICD10: B35.1] Alexandra KUNZ [facility] CPT-4: 85396 01/16/2019 ([id number]) OFFICE/OUTPATIENT VISIT EST Diagnosis: Diarrhea, unspecified[ICD10: R19.7] Diagnosis: Radiculopathy, lumbosacral region[ICD10: M54.17] Alexandra CARROLL [facility] CPT-4: 25379 09/18/2018 OFFICE/OUTPATIENT VISIT EST Diagnosis: Other intervertebral disc degeneration, lumbar region[ICD10: M51.36] Diagnosis: Sacroiliitis, not elsewhere classified[ICD10: M46.1] Diagnosis: Obstructive sleep apnea (adult) (pediatric)[ICD10: G47.33] Alexandra [facility] CPT-4: 31809 08/10/2018 ([id number]) OFFICE/OUTPATIENT VISIT EST Diagnosis: Fracture of unspecified part of left clavicle, subsequent encounter for fracture with routine healing[ICD10: S42.002D] Diagnosis: Cervicalgia[ICD10: M54.2] Diagnosis: Radiculopathy, lumbosacral region[ICD10: M54.17] Alexandra [facility] CPT-4: 94115 03/27/2018 ([id number]) OFFICE/OUTPATIENT VISIT EST Diagnosis: Fracture of unspecified part of left clavicle, subsequent encounter for fracture with routine healing[ICD10: S42.002D] Diagnosis: Other intervertebral disc degeneration, lumbar region[ICD10: M51.36] Diagnosis: Unspecified fracture of first thoracic vertebra, subsequent encounter for fracture with routine healing[ICD10: S22.019D] Diagnosis: Unspecified fracture of second thoracic vertebra, subsequent encounter for fracture with routine healing[ICD10: S22.029D] Alexandra [facility] CPT-4: 60845 02/23/2018 ([id number]) OFFICE/OUTPATIENT VISIT EST Diagnosis: Fracture of unspecified part of left clavicle, subsequent encounter for fracture with routine healing[ICD10: S42.002D] Diagnosis: Unspecified fracture of first thoracic vertebra, subsequent encounter for fracture with routine healing[ICD10: S22.019D] Diagnosis: Unspecified fracture of second thoracic vertebra, subsequent encounter for fracture with routine healing[ICD10: S22.029D] Alexandra CARROLL DO [facility] CPT-4: 62513 01/24/2018 ([id number]) OFFICE/OUTPATIENT VISIT EST Diagnosis: Migraine, unspecified, not intractable, without status migrainosus[ICD10: G43.909] Alexandra CARROLL DO [facility] CPT - 4: 19842 01/17/2018 ([id number]) OFFICE/OUTPATIENT VISIT EST Diagnosis: Hematuria, unspecified[ICD10: R31.9] Diagnosis: Other intervertebral disc degeneration, lumbar region[ICD10: M51.36] Diagnosis: Retention of urine, unspecified[ICD10: R33.9] Alexandra CARROLL [facility] CPT-4: 40771 12/29/2017 OFFICE/OUTPATIENT VISIT EST Diagnosis: Fracture of [...] Diagnosis: Low back pain[ICD10: M54.5] Alexandra KUNZ [facility] CPT-4: 48075 12/06/2017 ([id number]) OFFICE/OUTPATIENT VISIT EST Diagnosis: Cellulitis of right upper limb[ICD10: L03.113] Diagnosis: Allergy status to other antibiotic agents status[ICD10: Z88.1] Vandana CARROLL [facility] CPT-4: 80415 12/01/2017 ([id number]) OFFICE/OUTPATIENT VISIT EST Diagnosis: Cellulitis of right upper limb[ICD10: L03.113] Diagnosis: Allergy status to other antibiotic agents status[ICD10: Z88.1] Vandana CARROLL [facility] CPT-4: 53704 11/30/2017 ([id number]) OFFICE/OUTPATIENT VISIT EST Diagnosis: Cellulitis of right upper limb[ICD10: L03.113] Vandana CARROLL DO [facility] CPT-4: 48086 11/29/2017 ([id number]) OFFICE/OUTPATIENT VISIT EST Diagnosis: Cellulitis of right upper limb[ICD10: L03.113] Vandana CARROLL DO [facility] CPT-4: 15421 11/28/2017 ([id number]) OFFICE/OUTPATIENT VISIT EST Diagnosis: Other intervertebral disc degeneration, lumbar region[ICD10: M51.36] Diagnosis: Other retention of urine[ICD10: R33.8] Diagnosis: Primary insomnia[ICD10: F51.01] Diagnosis: Other spondylosis, site unspecified[ICD10: M47.899] Alexandra CARROLL DO [facility] CPT-4: 48889 11/17/2017 ([id number]) OFFICE/OUTPATIENT VISIT EST Diagnosis: Radiculopathy, lumbosacral region[ICD10: M54.17] Diagnosis: Other retention of urine[ICD10: R33.8] Diagnosis: Urinary tract infection, site not specified[ICD10: N39.0] Vandana CARROLL DO [facility] CPT-4: 14641 10/10/2017 ([id number]) PREV VISIT EST AGE 40-64 Diagnosis: Encounter for general adult medical examination without abnormal findings[ICD10: Z00.00] Diagnosis: Other intervertebral disc degeneration, lumbar region[ICD10: M51.36] Diagnosis: Hypothyroidism, unspecified[ICD10: E03.9] Diagnosis: Mixed hyperlipidemia[ICD10: E78.2] Alexandra CARROLL DO [facility] CPT-4: 20295 06/22/2017 ([id number]) OFFICE/OUTPATIENT VISIT EST Diagnosis: URI, ACUTE[ICD10: J06.9] Alexandra ROMAN [facility] CPT-4: 68300 03/28/2017 OFFICE/OUTPATIENT VISIT EST Diagnosis: Acute sinusitis, unspecified[ICD10: J01.90] Vandana CARROLL DO [facility] CPT-4: 06915 02/16/2017 ([id number]) OFFICE/OUTPATIENT VISIT EST Diagnosis: Migraine, unspecified, not intractable, without status migrainosus[ICD10: G43.909] Alexandra CARROLL [facility] CPT - 4: 21091 11/02/2016 ([id number]) OFFICE/OUTPATIENT VISIT EST Diagnosis: Pain in thoracic spine[ICD10: M54.6] Diagnosis: Chondrocostal junction syndrome [Tietze][ICD10: M94.0] Alexandra CARROLL [facility] CPT-4: 59613 09/06/2016 OFFICE/OUTPATIENT VISIT EST Diagnosis: Acute sinusitis, unspecified[ICD10: J01.90] Vidya Manuel ALEXANDRA CARROLL [facility] CPT-4: 69666 08/16/2016 ([id number]) OFFICE/OUTPATIENT VISIT EST Diagnosis: Primary insomnia[ICD10: F51.01] Diagnosis: Cramp and spasm[ICD10: R25.2] Diagnosis: Major depressive disorder, single episode, mild[ICD10: F32.0] Alexandra CARROLL [facility] CPT-4: 00570 07/19/2016 ([id number]) OFFICE/OUTPATIENT VISIT EST Diagnosis: Obstructive sleep apnea (adult) (pediatric)[ICD10: G47.33] Diagnosis: Other fatigue[ICD10: R53.83] Diagnosis: Allergic rhinitis due to pollen[ICD10: J30.1] Diagnosis: Headache[ICD10: R51] Alexandra CARROLL [facility] CPT-4: 62053 07/06/2016 ([id number]) OFFICE/OUTPATIENT VISIT EST Diagnosis: Acute recurrent sinusitis, unspecified[ICD10: J01.91] Diagnosis: Allergic rhinitis due to pollen[ICD10: J30.1] Alexandra CARROLL [facility] CPT-4: 23318 06/15/2016 ([id number]) OFFICE/OUTPATIENT VISIT EST Diagnosis: Migraine, unspecified, not intractable, without status migrainosus[ICD10: G43.909] Diagnosis: Allergic rhinitis, unspecified[ICD10: J30.9] Nae CARROLL [facility] CPT-4: 28147 04/09/2016 ([id number]) OFFICE/OUTPATIENT VISIT EST Diagnosis: Hypothyroidism, unspecified[ICD10: E03.9] Diagnosis: Other fatigue[ICD10: R53.83] Diagnosis: Mixed hyperlipidemia[ICD10: E78.2] Diagnosis: Major depressive disorder, single episode, mild[ICD10: F32.0] Alexandra CARROLL DO [facility] CPT-4: 84250 03/17/2016 ([id number]) OFFICE/OUTPATIENT VISIT EST Diagnosis: Insomnia, unspecified[ICD10: G47.00] Diagnosis: Encounter for therapeutic drug level monitoring[ICD10: Z51.81] Nae CARROLL [facility] CPT-4: 16186 11/13/2015 ([id number]) OFFICE/OUTPATIENT VISIT EST Diagnosis: Hematuria, unspecified[ICD10: R31.9] Alexandra CARROLL [facility] CPT-4: 62446 05/05/2015 ([id number]) OFFICE/OUTPATIENT VISIT EST Diagnosis: Other intervertebral disc degeneration, lumbar region[ICD10: M51.36] Diagnosis: Radiculopathy, lumbosacral region[ICD10: M54.17] Alexandra CARROLL [facility] CPT-4: 87750 04/22/2015 ([id number]) OFFICE/OUTPATIENT VISIT EST Diagnosis: Low back pain[ICD10: M54.5] Diagnosis: Recurrent and persistent hematuria with unspecified morphologic changes[ICD10: N02.9] Alexandra CARROLL DO [facility] CPT-4: 54873 03/24/2015 ([id number]) OFFICE/OUTPATIENT VISIT EST Diagnosis: Acute sinusitis, unspecified[ICD10: J01.90] Diagnosis: Headache[ICD10: R51] Diagnosis: Retention of urine, unspecified[ICD10: R33.9] Diagnosis: Hypothyroidism, unspecified[ICD10: E03.9] Alexandra CARROLL [facility] CPT-4: 01000 02/27/2015 ([id number]) PREV VISIT EST AGE 40-64 Diagnosis: ROUTINE MEDICAL EXAM[ICD9: V70.0] Diagnosis: HYPOTHYROIDISM[ICD9: 244.9] Diagnosis: HYPERLIPIDEMIA NEC/NOS[ICD9: 272.4] Alexandra SHAFFERUnique ADALID Ty JACOBONDVIOLETTA SALGUERO [employer] CPT-4: 83956 06/13/2014 ([id number]) OFFICE/OUTPATIENT VISIT EST Diagnosis: CEPHALGIA[ICD9: 784.0] Diagnosis: Nausea[ICD9: 787.02] Shalinisa Romeo SHAFFERLINE Ty JACOBONDVIOLETTA [employer] CPT-4: 48655 04/18/2014 ([id number]) OFFICE/OUTPATIENT VISIT EST Diagnosis: INSOMNIA NOS[ICD9: 780.52] Diagnosis: Complicated grieving[ICD9: 309.0] Alexandradanielle Louise SAri JACOBONDVIOLETTA [employer] CPT-4: 84639 12/05/2013 ([id number]) OFFICE/OUTPATIENT VISIT EST Diagnosis: Muscle twitch[ICD9: 781.0] Diagnosis: ALLERGIC RHINITIS[ICD9: 477.9] Alexandra Danelawandavioletta SHAFFERALEXANDRA Macy CARROLL [employer] [facility] CPT-4: 82818 06/05/2013 ([id number]) OFFICE/OUTPATIENT VISIT EST Diagnosis: DEPRESSIVE DISORDER NEC[ICD9: 311] Alexandra QUINTERO S. DANENDER [employer] CPT-4: 51278 05/22/2013 OFFICE/OUTPATIENT VISIT EST Diagnosis: Shingles[ICD9: 053.9] Alexandra Danejames FORDE MacyAri DANENDVIOLETTA [employer] [facility] CPT-4: 37670 04/05/2013 ([id number]) OFFICE/OUTPATIENT VISIT EST Diagnosis: DEPRESSIVE DISORDER NEC[ICD9: 311] Alexandra QUINTERO S. DANENDER [employer] CPT-4: 87457 03/26/2013 ([id number]) OFFICE/OUTPATIENT VISIT EST Diagnosis: Complicated grieving[ICD9: 309.0] Alexandra Burlesonvioletta PAM Louise Ty JACOBONDER [employer] CPT-4: 63803 03/06/2013 ([id number]) OFFICE/OUTPATIENT VISIT EST Diagnosis: CEPHALGIA, TENSION[ICD9: 307.81] Diagnosis: MIGRAINE NOS/NOT INTRCBL[ICD9: 346.90] Diagnosis: Cervicalgia[ICD9: 723.1] Alexandra PLATT IZABELLA [facility] CPT-4: 46380 11/29/2012 ([id number]) OFFICE/OUTPATIENT VISIT EST Diagnosis: Jaw pain[ICD9: 784.92] Diagnosis: Shoulder pain[ICD9: 719.41] Diagnosis: Family history of premature coronary artery disease[ICD9: V17.3] Alexandra CARROLL [facility] CPT-4: 59077 09/26/2012 ([id number]) OFFICE/OUTPATIENT VISIT EST Diagnosis: ABDOMINAL PAIN[ICD9: 789.00] Diagnosis: Constipation[ICD9: 564.00] Diagnosis: Hematuria[ICD9: 599.70] Alexandra [facility] CPT-4: 52761 07/11/2012 ([id number]) OFFICE/OUTPATIENT VISIT EST Diagnosis: ANEMIA NOS[ICD9: 285.9] Alexandra [facility] CPT-4: 45118 02/17/2012 ([id number]) PREV VISIT EST AGE 40-64 Diagnosis: ROUTINE MEDICAL EXAM[ICD9: V70.0] Diagnosis: HYPOTHYROIDISM[ICD9: 244.9] Diagnosis: HYPERLIPIDEMIA NEC/NOS[ICD9: 272.4] Diagnosis: Obstructive sleep apnea[ICD9: 327.23] Alexandra LEWNE Ty CARROLL [facility] CPT-4: 10108 02/02/2012 ([id number]) OFFICE/OUTPATIENT VISIT EST Diagnosis: URINARY TRACT INFECTION[ICD9: 599.0] Alexandra JACOBONDVIOLETTA [facility] CPT-4: 22738 08/27/2011 ([id number]) OFFICE/OUTPATIENT VISIT EST Diagnosis: URINARY TRACT INFECTION[ICD9: 599.0] Diagnosis: ACUTE CYSTITIS[ICD9: 595.0] Alexandra Crawford [facility] CPT-4: 23173 08/17/2011 OFFICE/OUTPATIENT VISIT EST Diagnosis: URINARY TRACT INFECTION[ICD9: 599.0] Steph LOZANO Ty [facility] CPT-4: 82223 10/14/2010 Plan of Care Planned Activity Notes [...] N39.0 07/17/2019 Patient Education: Cipro- [employer] [id number] [email or web address]/[email or web address]/resources/getResource/61/[email or web address]-[email or web address].pdf Completed 07/17/2019 Visit Diagnosis Plan: Allergic dermatitis Discussion: Could be numerous things that were given during surgery Continue benadryl Add Prednisone Notify if persists/worsens ICD-9 : 692.9 ICD-10 : L23.9 06/26/2019 Appointment: Alexandra Carroll WPtel: [phone] [facility] 06/26/2019 Patient Education: prednisone- [employer] [id number] https://www.[employer]/resources/getResource/61/[email or web address] Completed 06/26/2019 Visit Diagnosis Plan: Cellulitis of [...] injection a week pre-op and dr. albert's zumba instructor voiced ok to give. ICD-9 : 692.6 ICD-10 : L25.5 05/14/2019 Appointment: Vandana Crowe [address] [place], [place] [id number] 05/14/2019 Patient Education: Levaquin- [employer]on [phone] [id number] https://www.[employer].com/samplemd/resources/getResource/61/[email or web address] Completed 05/14/2019 Visit Diagnosis Plan: Ventral hernia Discussion: See s urgery for repair Discussed signs of incarceration or strangulation then is to report to ER ICD-9 : 553.20 ICD-10 : K43.9 04/10/2019 Appointment: Alexandra Carroll WPtel: [address] [place], [place] [phone] [place] left second message 04/10/19 at 10:20 ACUTE ILLNE SS 04/10/2019 Care Plan: Referral Order SNOMED-CT : 30 [id number] Pending 04/10/2019 Visit Diagnosis Plan: Insomnia Discussion: [...] : D47.3 02/14/2019 Appointment: Alexandra Carroll WPtel: [address] [place], [place] [phone] [place] FOLLOW UP 02/14/2019 Appointment: Alexandra Carroll WPtel: [address] [place], [place] [id number] [place] CANCELED 02/12/2019 Visit Diagnosis Plan: Onychomycosis Discussion: Send n ail for culture ICD-9 : 110.1 ICD-10 : B35.1 01/16/2019 Visit Diagnosis Plan: Small bowel obstruction Discussi on: S/P surgery in September with postop complications of wound dehiscence ICD-9 : 560.9 ICD-10 : K56.609 01/16/2019 Appointment: Alexandra Carroll WPtel: [address] [place], [place] [phone] [place] MEDICATION REVIEW 01/16/2019 Appointment: Alexandra Carroll WPtel: [address] [place], [place] [phone] [place] CANCELED 12/12/2018 Visit Diagnosis Plan: Diarrhea, unspecified Discussion : Due for updated colonoscopy ICD-9 : 787.91 ICD-10 : R19.7 09/18/2018 Visit Diagnosis Plan: Radiculopathy, lumbosacral regio n Discussion: Had left SI joint injection by Dr. Baig about 2 weeks ago and has fwup with him ICD-9 : 724.4 ICD-10 : M54.17 09/18/2018 Appointment: Alexandra Carroll WPtel: [address] [place], [place] [phone] [place] PATIENT CONSULT 15 09/18/2018 Care Plan: Referral Order SNOMED-CT : 30 0880193 Pending 09/18/2018 Visit Diagnosis Plan: Other intervertebral [...] : M46.1 08/10/2018 Appointment: Alexandra Carroll WPtel: [address] [place], [place] [phone] [place] MEDICATION REVIEW 08/10/2018 Care Plan: Referral Order SNOMED-CT : 30 [id number] Pending 08/10/2018 Appointment: Alexandra Carroll WPtel: [address] [place], [place] [phone] [place] CANCELED 04/17/2018 Visit Diagnosis Plan: Fracture [...] : M54.2 03/27/2018 Appointment: Alexandra Carroll WPtel: [address] [place], [place] [phone] US FOLLOW UP 03/27/2018 Visit Diagnosis Plan: [...] : S42.002D 02/23/2018 Appointment: Alexandra Carroll WPtel: [address] [place], [place] [phone] US FOLLOW UP 02/23/2018 Patient Education: gabapentin- [employer] C[employer]on [phone] https://www.[email or web address]/samplemd/resources/getResource/61/[email or web address] Completed 02/23/2018 Visit Diagnosis Plan: Fracture of unspec ified part of left clavicle, subsequent encounter for fracture with routine healing Discussion: Hold on PT and do home stretches Trial of gabapentin Recheck 4 weeks ICD-9 : V54.11 ICD-10 : S42.002D 01/24/2018 Appointment: Alexandra Carroll WPtel: [address] [place], [place] [phone] [place] FOLLOW UP 01/24/2018 Visit Diagnosis Plan: Migraine, unspecif ied, not intractable, without status migrainosus Discussion: Toradol and phenergan given ICD-9 : 346.90 ICD-10 : G43.909 01/17/2018 Appointment: Alexandra Carroll WPtel: [address] [place], [place] [id number] 01/17/2018 Visit Diagnosis Plan: [...] : R31.9 12/29/2017 Appointment: Alexandra Carroll WPtel: [address] [place] [address] ACUTE ILLNESS 12/29/2017 Care Plan: US EXAM PELVIC COMPLETE LOINC : 29295-4 Pending 12/29/2017 Care Plan: ECHO EXAM OF ABDOMEN LOINC : 06705-1 Pending 12/29/2017 Care Plan: Referral Order SNOMED-CT : 30 [id number] Pending 12/29/2017 Visit Diagnosis Plan: Fracture of unspec ified part of left clavicle, subsequent encounter for fracture with routine healing Discussion: Start PT in another 7-14 days Off work for the rest of this week then may return to part-time work on 12/12/17 Fwup in 4 weeks ICD-9 : V54.11 ICD-10 : S42.002D 12/06/2017 Appointment: Alexandra Carroll WPtel: [address] [place], [place] [phone] [place] FOLLOW UP 12/06/2017 Patient Education: Patient [...] ICD-10 : Z88.1 12/01/2017 Appointment: Vandana Crowe [address] [place], [place] [phone] FOLLOW UP 12/01/2017 Patient Education: Patient Medication [...] ICD-10 : Z88.1 11/30/2017 Appointment: Vandana Crowe [address] [place], [place] [id number] [id number] 11/30/2017 Patient Education: Patient Medication Summary [...] : L03.113 11/29/2017 Appointment: [id number] FOLLOW [facility] 11/29/2017 Patient Education: Patient Medication [...] ICD-10 : L03.113 11/28/2017 Appointment: Vandana Crowe [address] [place] [id number] ACUTE ILLNESS 11/28/2017 Patient Education: Patient Medication [...] Appointment: Alexandra Carroll WPtel: [phone] [id number] [place] MEDICATION REVIEW 11/17/2017 Patient Education: Patient Medication Summary Completed 11/17/2017 Care Plan: Referral Order SNOMED-CT : 30 [id number] Pending 11/17/2017 Patient Education: Patient Medication Summary Completed 10/12/2017 Care Plan: MRI LUMBAR SPINE W/O DYE LOIN C : 94666-1 Pending 10/12/2017 Care Plan: X-RAY EXAM L-S SPINE 2/3 VWS LOINC : 19442-0 Pending 10/11/2017 Visit Diagnosis Plan: Other retention [...] medrol pack to start tomorrow. [facility] to [facility] PT immediately with inversion table. instructed patient to go to ED immediately if she develops any incontinence with bowel or bladder. patient verbalized understanding. if no improvement, will need updated MRI and referral to surgeon. ICD-9 : 724.4 ICD-10 : M54.17 10/10/2017 Appointment: Vandana Crowe [address] [place], [place] [phone] ACUTE ILLNESS 10/10/2017 Patient Education: Patient Medication Summary Completed 10/10/2017 Appointment: Vandana Crowe [address] [place], [place] [phone] ACUTE ILLNESS 08/01/2017 Visit Diagnosis Plan: Other intervertebral disc degene ration, lumbar region Discussion: Core strengtheing and inversion table and if worsening will need updated MRI ICD-9 : 722.52 ICD-10 : M51.36 06/22/2017 Visit Diagnosis Plan: Encounter for [facility] adult medical examination without abnormal findings Discussion: Lab dis ussed Follow Up: 6 months ICD-9 : V70.0 ICD-10 : Z00.00 06/22/2017 Appointment: Alexandra Carroll WPtel: [phone] [id number] Annual Well Visit 06/22/2017 Patient Education: Patient Medication Summary Completed 06/22/2017 Patient Education: Patient Medication Summary Completed 06/16/2017 Care Plan: COMPREHEN METABOLIC PANEL [place] : 87571-4 Pending 06/16/2017 Care Plan: ASSAY THYROID STIM HORMONE Pen ding 06/16/2017 Care Plan: ASSAY OF FREE THYROXINE Pendin g 06/16/2017 Care Plan: LIPID PANEL LOINC : 46147-7 Pending 06/16/2017 Care Plan: CBC Pending 06/16/2017 [...] : J06.9 03/28/2017 Appointment: Alexandra Carroll WPtel: [facility]0 [id number] ACUTE ILLNESS 03/28/2017 Patient Education: Patient Medication Summary Completed 03/28/2017 Visit Diagnosis Plan: Acute sinusitis, unspecified Dis cussion: cefdinir and medrol dose pack prescribed to be taken as directed. tylenol/ibuprofen as needed. educated on importance of taking singulair or zyrtec daily to prevent worsening symptoms. keep hydrated. ICD-9 : 461.9 ICD-10 : J01.90 02/16/2017 Appointment: Vandana Crowe [address] [place], [place] [address] ACUTE ILLNESS 02/16/2017 Patient Education: Patient Medication Summary Completed 02/16/2017 Appointment: Alexandra Carroll WPtel: [address] [place] [address] [place] INJECTION 11/02/2016 Patient Education: Patient Medication Summary Completed 11/02/2016 Visit Diagnosis Plan: Pain in thoracic spine Discussio n: Increase flexeril to 10mg po BID Add Mobic 15mg po daily Towel stretch May see chiropractor to adjust ribs Notify if persists or worsening ICD-9 : 724.1 ICD-10 : M54.6 09/06/2016 Appointment: Aelxandra Carroll WPtel: [address] [place] [address] ACUTE ILLNESS 09/06/2016 Patient Education: Patient Medication Summary Completed 09/06/2016 Visit Plan: Due to hx, ERx Cefdinir and Prednisone (discussed risks for both) Given bottle for nasal saline rinses Tylenol/Ibuprofen prn pain/fever Fluids/rest Discussed s/s of worsening, RTC if no improvement 08/16/2016 Appointment: Vidya Manuel WPtel: [address] [place] [address] ACUTE ILLNESS 08/16/2016 Patient Education: Patient Medication [...] : F32.0 07/19/2016 Appointment: Alexandra Carroll WPtel: [id number] 07/15 confirmed`sl FOLLOW UP 07/19/2016 Patient Education: [...] : J30.1 07/06/2016 Appointment: Alexandra Carroll WPtel: [facility]1 [id number] 07/05 confirmed-sp FOLLOW UP 07/06/2016 Patient [...] : J01.91 06/15/2016 Appointment: Alexandra Carroll WPtel: [facility]4 [facility] 06/14 lm ~sl ACUTE ILLNESS 06/15/2016 Patient Education: Patient Medication Summary Completed 06/15/2016 Visit Diagnosis Plan: Migraine, unspecif ied, not intractable, without status migrainosus Discussion: Injection as above Drink ple nty of water No driving x 6 hours Rest No OTC nsaids today Follow up PRN Refill called of claritin-d ICD-9 : 346.90 ICD-10 : G43.909 04/09/2016 Appointment: [id number] [facility] 04/09/2016 Patient Education: Patient [...] : R53.83 03/17/2016 Appointment: Alexandra Carroll WPtel: [address] [place], [place] [phone] 03/16 nvm~sl 03/17 confirmed`sl FOLLOW UP 0 03/17/2016 Patient Education: Patient Medication Summary Completed 03/17/2016 Appointment: Alexandra Carroll WPtel: [address] [place], [place] [phone] [place] 03/11 lm~sl 03/15lm `sl 03/15 confirmed`sl FOLLOW U P 03/15/2016 Visit Plan: Discussed labeled indication s for benzos. Since xanax is not labeled for sleep and she has never tried anything else, encouraged her to trial restoril(another benzo) since it is labeled for sleep. She agrees with this trial. Rx called to [facility] after cost comparison which is nearly the same robert. If working well, continue the x0eywxg office visits. Call if not working well, and will restart xanax at for sleep. 11/13/2015 Appointment: Nae Mckay [facility] [id number] 11/11 confirmed~sl FOLLOW UP 11/13/2015 Patient Education: Patient Medication Summary Completed 11/13/2015 Appointment: Alexandra Carroll WPtel: [address] [place], [place] [phone] Suture Removal 06/23/2015 Patient Education: Patient Medication Summary Completed 06/23/2015 Visit Plan: Removal of lesion above usin g 3-0 punch biopsy Return in 10 days for suture removal 06/12/2015 Appointment: Alexandra Carroll WPtel: [address] [place], [place] [phone] 06/10 lm ~sl ACUTE ILLNESS 06/12/2015 Patient Education: Patient Medication Summary Completed 06/12/2015 Referral: S[facility] Garcia [facility] [place] [address] [place] Schedule patient around lunch time and 3 weeks from 04/22/2015 ~ Spoke with Kiesha at Dr. Sandoval Office and 04/24/15 and scheduled the patient ~sl 04/24/15 Patient is informed~ 06/03 Patient canceled the appointment ~ Patient did not show up for scheduled appointment-sp Appoint ment Requested 05/21/2015 Appointment: Alexandra Carroll WPtel: [address] [place], [place] [phone] UA 05/05/2015 Patient Education: Patient Medication Summary Completed 05/05/2015 Visit Plan: Starts PT today Schedule wit h Dr. Garcia for epidural CT abdomen/pelvis results discussed Sees RN CLINICAL DOCUMENTATION SPECIALIST in April and will get checked then 04/22/2015 Appointment: Alexandra Carroll WPtel: [address] [place], [place] [phone] 04/21 confirmed~lb ACUTE ILLNESS 04/22/2015 Patient Education: Patient Medication Summary Completed 04/22/2015 Referral: Lincoln Hernandez WPtel: [address] [place] [address] Referral Initiated 04/10/2015 Patient Education: Patient Medication Summary Completed 04/09/2015 Visit Plan: Start with lumosacral spine x-ray--will likely need MRI of L/S spine x-ray Needs urology--has had to have bladder stretched in past Tivorbex 03/24/2015 Appointment: Alexandra Carroll WPtel: [facility] 03/21/15 appt confirmed cn ACUTE ILLNESS 03/24 Patient Education: Patient Medication Summary Completed 03/24/2015 Visit Plan: Saline nasal flushes prn. Ty lenol/Motrin prn headache. Notify if persists/symptoms worsening. Cefuroxime to cover both sinuses and UTI Culture urine Check lab 02/27/2015 Appointment: Alexandra Carroll WPtel: [address] [place], [place] [phone] 02/26/15 vm to confirm and need new insu meri on file is inactive cn....02/27/15 appt confirmed cn ACUTE ILLNESS 015 Patient Education: Patient Medication Summary Completed 02/27/2015 Visit Plan: Lab discussed Stop simvastat in Check lipids in 6mos Continue all other meds at current dose Had Pap and Mammo 3 weeks ago 06/13/2014 Appointment: Alexandra Carroll WPtel: [address] [place], [place] [phone] Annual Well Visit 06/13/2014 Patient Education: Patient Medication Summary Completed 06/13/2014 Appointment: Shalini Walters WPtel: [address] [place], [place] [phone] ACUTE ILLNESS 04/18/2014 Patient Education: Patient Medication Summary Completed 04/18/2014 Visit Plan: Check lab in May then fwup Can try decreasing xanax to 1mg q HS with melatonin 5-10mg q HS 12/05/2013 Appointment: Alexandra Carroll WPtel: [address] [place], [place] [phone] 12/04 FOLLOW UP 12/05/2013 Patient Education: Patient Medication Summary Completed 12/05/2013 Appointment: Alexandra Carroll WPtel: [address] [place], [place] [phone] FOLLOW UP 06/05/2013 Patient Education: Patient Medication Summary Completed 06/05/2013 Appointment: Alexandra Carroll WPtel: [address] [place] [address] FOLLOW UP 05/22/2013 Patient Education: Patient Medication Summary Completed 05/22/2013 Visit Plan: Zovirax for 2wks Notify if p ain worsens or if persists 04/05/2013 Appointment: Alexandra Carroll WPtel: [address] [place] [address] ACUTE ILLNESS 04/05/2013 Patient Education: Patient Medication Summary Completed 04/05/2013 Visit Plan: Keep Wellbutrin at current d ose Pt did see claim technician for counseling 03/26/2013 Appointment: Alexandra Carroll WPtel: [address] [place] [address] ACUTE ILLNESS 03/26/2013 Patient Education: Patient Medication Summary Completed 03/26/2013 Visit Plan: Continue citalopram at curre nt dose Increase xanax to 1-2mg q HS for sleep Add Wellbutrin Sr 100mg q AM Start Counseling 03/06/2013 Appointment: Alexandra Carroll WPtel: [address] [place] [address] ACUTE ILLNESS 03/06/2013 Patient Education: Patient Medication Summary Completed 03/06/2013 Appointment: Alexandra Carroll WPtel: [address] [place] [address] ACUTE ILLNESS 11/29/2012 Patient Education: Patient Medication Summary Completed 11/29/2012 Appointment: Alexandra Carroll WPtel: [address] [place] [address] ACUTE ILLNESS 09/26/2012 Patient Education: Patient Medication Summary Completed 09/26/2012 Appointment: Alexandra Carroll WPtel: [address] [place] [address] ACUTE ILLNESS 07/11/2012 Patient Education: Patient Medication Summary Completed 07/11/2012 Appointment: Alexandra Carroll WPtel: [address] [place], [place] [phone] [place] LAB 02/17/2012 Patient Education: Patient Medication Summary Completed 02/17/2012 Visit Plan: Check fasting lab Start annie y ca with Vit D Cont CPAP Mammo up-to-date Hemoccult card given 02/02/2012 Appointment: Alexandra Carroll WPtel: [address] [place] [address] PHYSICAL 02/02/2012 Patient Education: Patient Medication Summary Completed 02/02/2012 Appointment: Alexandra Carroll WPtel: [address] [place] [address] UA 08/27/2011 Patient Education: Patient Medication Summary Completed 08/27/2011 Visit Plan: Levaquin and Diflucan for 1w k Then cipro QOD for prophylaxis 08/17/2011 Appointment: Alexandra Carroll WPtel: [address] [place] [address] FOLLOW UP 08/17/2011 Patient Education: Patient Medication Summary Completed 08/17/2011 Appointment: Alexandra Carroll WPtel: [address] [place] [address] UA 12/28/2010 Patient Education: Patient Medication Summary Completed 12/28/2010 Appointment: Alexandra Carroll WPtel: [address] [place] [address] 11/09/2010 Patient Education: Patient Medication Summary Completed 11/09/2010 Appointment: Alexandra Carroll WPtel: [address] [place] [address] 10/29/2010 Patient Education: Patient Medication Summary Completed 10/29/2010 Appointment: Steph Bowen WPtel: [address] [place] [address] ACUTE ILLNESS 10/14/2010 Patient Education: Patient Medication Summary Completed 10/14/2010 Referral: Florian Baig WPtel: [facility] [address], [facility] 1 [id number] [place] Referral Initiated Referral: Paulo Albert WPtel: [phone] [id number] [place] Referral Appointment Requested Referral: Luis Enrique Jasso WPtel: [facility] [address], [facility] 1 [id number] [place] Referral Appointment Requested Referral: Florian Baig WPtel: [facility] [address] 1 [id number] [place] Referral Appointment Requested Referral: Caleb Glaser WPtel: [address] [id number] [place] Referral Appointment Requested Referral: Florian Baig WPtel: [facility] [address], [facility] 1 [id number] [place] Referral Initiated Referral: Florian Baig WPtel: [facility] [address], [facility] 1 [id number] [place] Referral Appointment Requested Instructions Comment . [...] same robert. If working well, continue the [id number] office visits. Call if not working well, and will restart xanax at HS for sleep. . Removal of lesion above using 3-0 punc h biopsy Return in 10 days for suture removal . Starts PT today Schedule with Dr. Garcia for epidural CT abdomen/pelvis results discussed Sees RN CLINICAL DOCUMENTATION SPECIALIST in April and will get checked then [...]
--- OUTSIDE RECORDS SUMMARY | 2019-09-02 00:20 | XMS REPORT | CCD ---
Author Author Ilda Bowen APRN Organization [facility] Address [address] [place] [address] Phone Care Team Providers Care Injection Specialist Name Role Phone Alexandra Carroll D.O., PP Unavailable CCM Unavailable Summary Purpose Interface Exchange Insurance Providers Payer name Policy type / Coverage type Covered libertarian ID Effective Begin Date Effective End Date WPS MEDICARE PART B [place] Medicare Part B [id number] 2019 Unknown [employer] [place] Medicare Part B [id number] Unknown Family History Family History data not found Social History Social History Element Codes Description Effective Dates Tobacco history SNOMED CT: 469042167 Nonsmoker 10/14/2010 Allergies, Adverse Reactions, Alerts Substance Reaction Codes Entered Date Inactivated Date Status MORPHINE SULFATE RxNorm: 4189866 10/14/2010 No Inactive Da te Active CEPHALOSPORINS [...] Fill Instructions cyclobenzaprine 10 mg tablet RxNorm: 849974 Tablet(s) Oral as neede d 07/17/2019 No Stop Date Active Cipro 500 mg tablet RxNorm: 529921 1 Tablet(s) Oral two times a day 07/17/2019 07/22/2019 Active Xanax 1 mg tablet RxNorm: 279507 1-2 Tablet(s) Oral e very night at bedtime as needed for sleep 07/10/2019 08/08/2019 Active Generic For:LAVELLE AX 1MG 10/11/2016 11:15:13 AM prednisone 20 mg tablet RxNorm: 369541 1 Tablet(s) Oral two harlan es a day 06/26/2019 07/03/2019 Inactive Amabelz 1 mg-0.5 mg tablet RxNorm: 4829471 1 Tablet(s) Oral QD 05/3007/17/2019 Inactive Trazadone 150 mg Tablet RxNorm: 1 Tablet(s) Oral every n ight at bedtime 05/14/2019 No Stop Date Active Levaquin 500 mg tablet RxNorm: 635393 1 Tablet(s) Oral QD 05/14/2019 05/21/2019 Inactive Xanax 1 mg tablet RxNorm: 034097 1-2 Tablet(s) Oral e very night at bedtime as needed for sleep 05/03/2019 06/01/2019 Inactive Generic For:LAVELLE AX 1MG 10/11/2016 11:15:13 AM cyclobenzaprine 10 mg tablet RxNorm: 295141 1 Tablet(s) Oral three times a day as needed for muscle spasm 02/12/2019 02/12/2019 Inactive Xanax 1 mg tablet RxNorm: 757423 1-2 Tablet(s) Oral e very night at bedtime as needed for sleep 02/09/2019 03/10/2019 Inactive Generic For:LAVELLE AX 1MG 10/11/2016 11:15:13 AM Xanax 1 mg tablet RxNorm: 210791 1-2 Tablet(s) Oral e very night at bedtime as needed for sleep 01/22/2019 02/08/2019 Inactive Generic For:LAVELLE AX 1MG 10/11/2016 11:15:13 AM Celexa 40 mg tablet RxNorm: 729667 1 Tablet(s) Oral QD 01/17/2019 Active - First Attempt Ref: [id number] Xanax 1 mg tablet RxNorm: 125695 1 Tablet(s) Oral every night a t bedtime 01/08/2019 01/21/2019 Inactive levothyroxine 88 mcg tablet RxNorm: 012885 TAKE 1 TABLET BY NINA TH DAILY 12/19/2018 06/16/2019 Inactive - First Attempt Ref: [id number] Xanax 1 mg tablet RxNorm: 510751 1 Tablet(s) Oral every night a t bedtime 12/06/2018 01/05/2019 Inactive Singulair 10 mg tablet RxNorm: 245776 1 Tablet(s) Oral every ni ght at bedtime 11/23/2018 11/17/2019 Active - First Attempt Ref: [id number] Celexa 40 mg tablet RxNorm: 409241 1 Tablet(s) Oral 11/23/20182018 Inactive - First Attempt Ref: [id number] cyclobenzaprine 10 mg tablet RxNorm: 149197 1 Tablet(s) Oral three times a day as needed for muscle spasm 11/23/2018 02/11/2019 Inactive Xanax 1 mg tablet RxNorm: 234967 1 Tablet(s) PO QHS 11/06/20182018 Inactive Xanax 1 mg tablet RxNorm: 630679 1 Tablet(s) PO QHS 09/26/20182018 Inactive Singulair 10 mg tablet RxNorm: 614365 TAKE 1 TABLET BY MOUTH EVERY NIGHT AT BEDTIME 08/16/2018 11/22/2018 Inactive - First Attempt Ref: [id number] Xanax 1 mg tablet RxNorm: 570177 1 Tablet(s) PO QHS 08/01/20182018 Inactive levothyroxine 88 mcg tablet RxNorm: 591117 TAKE 1 TABLET BY NINA TH DAILY 07/31/2018 12/18/2018 Inactive - First Attempt Ref: [id number] Celexa 40 mg tablet RxNorm: 434399 TAKE 1 TABLET BY MOUTH DAILY 04/201811/22/2018 Inactive - First Attempt Ref: [id number] bupropion HCl SR 100 mg tablet,12 hr sustained-release RxNor m: 438432 1 Tablet(s) PO BID 07/12/2018 07/06/2019 Inactive - Ref: [id number] 7 Claritin-D 24 Hour 10 mg-240 mg tablet,extended release RxNo rm: 0530732 1 Tablet(s) PO QD 06/29/2018 2018 Inactive Claritin-D 24 Hour 10 mg-240 mg tablet,extended release RxNo rm: 8851616 1 Tablet(s) PO QD 06/29/2018 2018 Inactive Xanax 1 mg tablet RxNorm: 812750 1-2 Tablet(s) PO QHS as needed for sleep 05/26/2018 06/23/2018 Inactive Generic For:XANAX 1M G 10/11/2016 11:15:13 AM Xanax 1 mg tablet RxNorm: 779627 1-2 Tablet(s) PO QHS as needed for sleep 03/28/2018 05/25/2018 Inactive Generic For:XANAX 1M G 10/11/2016 11:15:13 AM Macrobid 100 mg capsule RxNorm: 527672 1 Capsule(s) PO BID 03/27/19 19 03/31/2018 Inactive gabapentin 300 mg capsule RxNorm: 297127 1 Capsule(s) PO QHS 201703/26/2018 Inactive Claritin-D 24 Hour 10 mg-240 mg tablet,extended release RxNo rm: 0971627 1 Tablet(s) PO QD 01/26/2018 02/24/2018 Inactive gabapentin 100 mg capsule RxNorm: 001876 1 Capsule(s) P O QHS for 1 week then 2 po q HS for 2 weeks then 3 po q HS 01/24/2018 03/26/2018 Inactive Xanax 1 mg tablet RxNorm: 695094 1-2 Tablet(s) PO QHS as needed for sleep 01/24/2018 03/24/2018 Inactive Generic For:XANAX 1M G 10/11/2016 11:15:13 AM prednisone 20 mg tablet RxNorm: 967535 1 Tablet(s) PO T ID for 3 days then 1 po BID for 3 days then one daily for 3 days 12/29/2017 03/26/2018 Inactiv e prednisone 20 mg tablet RxNorm: 491757 3 Tablet(s) PO T ID for 3 days then 1 po BID for 3 days then one daily for 3 days 12/29/2017 12/29/2017 Inactiv e Macrobid 100 mg capsule RxNorm: 361257 1 Capsule(s) PO BID 12/30/19 18 01/02/2018 Inactive Xanax 1 mg tablet RxNorm: 566391 1-2 Tablet(s) PO QHS as needed for sleep 12/28/2017 01/23/2018 Inactive Generic For:XANAX 1M G 10/11/2016 11:15:13 AM Medrol (Walter) 4 mg tablets in a dose pack RxNorm: 196620 Tablet(s) PO take as directed 12/01/2017 03/26/2018 Inactive Keflex 750 mg capsule RxNorm: 612621 1 Capsule(s) PO BID 12/01/2017 1 Inactive clindamycin HCl 300 mg capsule RxNorm: 106728 2 Capsule(s) PO TID 1 12/08/2017 Inactive Xanax 1 mg tablet RxNorm: 156754 1-2 Tablet(s) PO QHS as needed for sleep 11/28/2017 12/27/2017 Inactive Generic For:XANAX 1M G 10/11/2016 11:15:13 AM mupirocin 2 % topical ointment RxNorm: 532755 1 Application OTIC BI D 11/28/2017 08/09/2018 Inactive Xanax 1 mg tablet RxNorm: 196548 1-2 Tablet(s) PO QHS as needed for sleep 10/27/2017 11/25/2017 Inactive Generic For:XANAX 1M G 10/11/2016 11:15:13 AM Macrobid 100 mg capsule RxNorm: 434302 1 Capsule(s) PO BID 10/11/19 18 10/16/2017 Inactive Medrol (Walter) 4 mg tablets in a dose pack RxNorm: 798296 Tablet(s) PO take as directed 10/10/2017 11/16/2017 Inactive Xanax 1 mg tablet RxNorm: 659848 1-2 Tablet(s) PO QHS as needed for sleep 09/28/2017 10/26/2017 Inactive Generic For:XANAX 1M G 10/11/2016 11:15:13 AM Xanax 1 mg tablet RxNorm: 248857 1-2 Tablet(s) PO QHS as needed for sleep 08/30/2017 09/27/2017 Inactive Generic For:XANAX 1M G 10/11/2016 11:15:13 AM Xanax 1 mg tablet RxNorm: 087156 1-2 Tablet(s) PO QHS as needed for sleep 08/30/2017 08/29/2017 Inactive Generic For:XANAX 1M G 10/11/2016 11:15:13 AM Xanax 1 mg tablet RxNorm: 143449 1-2 Tablet(s) PO QHS as needed for sleep 08/01/2017 08/29/2017 Inactive Generic For:XANAX 1M G 10/11/2016 11:15:13 AM Xanax 1 mg tablet RxNorm: 696579 1-2 Tablet(s) PO QHS as needed for sleep 06/29/2017 2017 Inactive Generic For:XANAX 1M G 10/11/2016 11:15:13 AM Claritin-D 24 Hour 10 mg-240 mg tablet,extended release RxNo rm: 7258940 1 Tablet(s) PO QD 06/29/2017 2017 Inactive levothyroxine 88 mcg tablet RxNorm: 880502 1 Tablet(s) PO QD 201709/10/2017 Inactive Xanax 1 mg tablet RxNorm: 691058 1-2 Tablet(s) PO QHS as needed for sleep 05/26/2017 06/28/2017 Inactive Generic For:XANAX 1M G 10/11/2016 11:15:13 AM Claritin-D 24 Hour 10 mg-240 mg tablet,extended release RxNo rm: 9859301 1 Tablet(s) PO QD 05/26/2017 06/24/2017 Inactive bupropion HCl SR 100 mg tablet,12 hr sustained-release RxNor m: 847781 Tablet(s) Take 1 tablet by mouth two times daily 04/06/2017 12/31/2017 Inactive - Ref: [id number] Xanax 1 mg tablet RxNorm: 604056 1-2 Tablet(s) PO QHS as needed for sleep 03/24/2017 05/22/2017 Inactive Generic For:XANAX 1M G 10/11/2016 11:15:13 AM Medrol (Walter) 4 mg tablets in a dose pack RxNorm: 414987 Tablet(s) P O 02/16/2017 03/27/2017 Inactive Xanax 1 mg tablet RxNorm: 176485 Tablet(s) TAKE ONE T O TWO TABLETS BY MOUTH AT BEDTIME NEEDED 02/16/2017 03/17/2017 Inactive Generic For:XA NAX 1MG 10/11/2016 11:15:13 AM Claritin-D 24 Hour 10 mg-240 mg tablet,extended release RxNo rm: 0247226 1 Tablet(s) PO QD 02/16/2017 04/16/2017 Inactive cefdinir 300 mg capsule RxNorm: 909212 2 Capsule(s) PO QD 02/16/2017 02/25/2017 Inactive Celexa 40 mg tablet RxNorm: 509427 Tablet(s) Take 1 tablet by m outh daily 12/23/2016 09/18/2017 Inactive - Ref: [id number] Xanax 1 mg tablet RxNorm: 816955 Tablet(s) TAKE ONE T O TWO TABLETS BY MOUTH AT BEDTIME NEEDED 12/16/2016 01/14/2017 Inactive Generic For:XA NAX 1MG 10/11/2016 11:15:13 AM Xanax 1 mg tablet RxNorm: 133808 Tablet(s) TAKE ONE T O TWO TABLETS BY MOUTH AT BEDTIME NEEDED 11/18/2016 12/15/2016 Inactive Generic For:XA NAX 1MG 10/11/2016 11:15:13 AM Xanax 1 mg tablet RxNorm: 862560 TAKE ONE TO TWO TABL ETS BY MOUTH AT BEDTIME NEEDED 10/11/2016 11/17/2016 Inactive Generic For:XANA X 1MG 10/11/2016 11:15:13 AM Mobic 15 mg tablet RxNorm: 010961 1 Tablet(s) PO QD 09/06/20162016 Inactive Claritin-D 24 Hour 10 mg-240 mg tablet,extended release RxNo rm: 2576782 1 Tablet(s) PO QD 09/02/2016 11/30/2016 Inactive prednisone 20 mg tablet RxNorm: 454392 1 Tablet(s) PO T ID for 3 days then 1 po BID for 3 days then one daily for 3 days 08/16/2016 03/27/2017 Inactiv e cefdinir 300 mg capsule RxNorm: 297971 2 Capsule(s) PO QD 08/16/2016 09/05/2016 Inactive Xanax 1 mg tablet RxNorm: 088807 TAKE ONE TO TWO TABL ETS BY MOUTH AT BEDTIME NEEDED 08/05/2016 10/11/2016 Inactive Generic For:XANA X 1MG 08/05/2016 2:27:03 PM08/04/2016 4:15:22 PM Singulair 10 mg tablet RxNorm: 173189 1 Tablet(s) PO QHS 07/06/2016 0 09/03/2016 Inactive prednisone 20 mg tablet RxNorm: 038224 1 Tablet(s) PO T ID for 3 days then 1 po BID for 3 days then one daily for 3 days 06/15/2016 07/05/2016 Inactiv e Singulair 10 mg tablet RxNorm: 409423 1 Tablet(s) PO QHS 06/15/2016 0 07/05/2016 Inactive cefdinir 300 mg capsule RxNorm: 136003 2 Capsule(s) PO QD 06/15/2016 07/05/2016 Inactive Xanax 1 mg tablet RxNorm: 714369 1-2 Tablet(s) PO QHS 05/21/201610/2016 Inactive Claritin-D 24 Hour 10 mg-240 mg tablet,extended release RxNo rm: 1313142 1 Tablet(s) PO QD 04/09/2016 07/07/2016 Inactive Xanax 1 mg tablet RxNorm: 447409 1-2 Tablet(s) PO QHS 03/23/201604/29 Inactive levothyroxine 88 mcg tablet RxNorm: 049843 1 Tablet(s) PO QD 201606/13/2017 Inactive bupropion HCl SR 100 mg tablet,sustained-release RxNorm: 993 503 Take 1 tablet by mouth two times daily 03/15/2016 12/09/2016 Inactive - Ref: 20 [id number] Celexa 40 mg tablet RxNorm: 815263 Take 1 tablet by mouth daily 12/23/2016 Inactive - Ref: [id number] Xanax 1 mg tablet RxNorm: 432556 1-2 Tablet(s) PO QHS 02/17/201603/01 Inactive levothyroxine 88 mcg tablet RxNorm: 360226 1 Tablet(s) PO QD 201502/22/2016 Inactive Xanax 1 mg tablet RxNorm: 085372 1-2 Tablet(s) PO QHS 11/25/201511/29 Inactive levothyroxine 88 mcg tablet RxNorm: 784544 1 Tablet(s) PO QD 201511/24/2015 Inactive temazepam 30 mg capsule RxNorm: 333634 1 Capsule(s) PO QHS 11/13/19 16 11/24/2015 Inactive Xanax 1 mg tablet RxNorm: 197298 1-2 Tablet(s) PO QHS 09/15/201510/29 Inactive Celexa 40 mg tablet RxNorm: 740032 1 Tablet(s) PO QD 1 Tablet(s ) PO QD 09/10/2015 09/16/2015 Inactive bupropion HCl SR 100 mg tablet,sustained-release RxNorm: 993 503 1 Tablet(s) PO BID 09/10/2015 09/23/2015 Inactive Xanax 1 mg tablet RxNorm: 178259 1-2 Tablet(s) PO QHS 09/10/201508/28 Inactive Xanax 1 mg tablet RxNorm: 965821 1-2 Tablet(s) PO QHS 08/11/201508/28 Inactive cyclobenzaprine 10 mg tablet RxNorm: 921087 1 Tablet(s) PO TID prn spasm 07/09/2015 11/23/2018 Inactive Celexa 40 mg tablet RxNorm: 679910 1 Tablet(s) PO QD 06/06/201508/03 Inactive Xanax 1 mg tablet RxNorm: 670879 1-2 Tablet(s) PO QHS 06/04/201505/2015 Inactive levothyroxine 88 mcg tablet RxNorm: 337872 1 Tablet(s) PO QD 201511/23/2015 Inactive Ceftin 500 mg tablet RxNorm: 221120 1 Tablet(s) PO BID 05/05/2015 Inactive Ceftin 500 mg tablet RxNorm: 859135 1 Tablet(s) PO BID 05/05/201507/2015 Inactive meloxicam 15 mg tablet RxNorm: 564342 1 Tablet(s) PO QD 04/16/2015 Inactive meloxicam 15 mg tablet RxNorm: 647474 1 Tablet(s) PO QD 04/16/2015 Inactive diclofenac sodium 75 mg tablet,delayed release RxNorm: 70867 6 1 Tablet(s) PO BID 04/04/2015 04/15/2015 Inactive diclofenac sodium 75 mg tablet,delayed release RxNorm: 14005 6 1 Tablet(s) PO BID 04/04/2015 04/03/2015 Inactive Tivorbex 40 mg capsule RxNorm: 8299163 1 Capsule(s) PO TID 03/24/19 16 04/02/2015 Inactive bupropion HCl SR 100 mg tablet,sustained-release RxNorm: 993 503 1 Tablet(s) PO BID 03/11/2015 09/06/2015 Inactive cyclobenzaprine 10 mg tablet RxNorm: 672405 1 Tablet(s) PO TID prn spasm 03/11/2015 07/08/2015 Inactive levothyroxine 88 mcg tablet RxNorm: 652122 1 Tablet(s) PO QD 201405/27/2015 Inactive Claritin-D 24 Hour 10 mg-240 mg tablet,extended release RxNo rm: 8997914 1 Tablet(s) PO QD 02/27/2015 05/27/2015 Inactive cefuroxime axetil 500 mg tablet RxNorm: 921877 1 Tablet(s) PO BID 1 03/12/2015 Inactive Celexa 40 mg tablet RxNorm: 696918 1 Tablet(s) PO QD 02/05/201504/05 Inactive levothyroxine 75 mcg tablet RxNorm: 358251 1 Tablet(s) PO QD 201402/26/2015 Inactive Celexa 40 mg tablet RxNorm: 282369 1 Tablet(s) PO QD 10/09/201402/04 Inactive Activella 1 mg-0.5 mg tablet RxNorm: 9573853 1 Tablet(s) PO QD 08/2802/26/2015 Inactive bupropion HCl SR 100 mg tablet,sustained-release RxNorm: 993 503 1 Tablet(s) PO BID 09/12/2014 03/10/2015 Inactive levothyroxine 75 mcg tablet RxNorm: 786189 1 Tablet(s) PO QD 201412/09/2014 Inactive levothyroxine 75 mcg tablet RxNorm: 752889 1 Tablet(s) PO QD 201409/11/2014 Inactive Celexa 40 mg tablet RxNorm: 027530 1 Tablet(s) PO QD 08/12/201410/08 Inactive Xanax 1 mg tablet RxNorm: 496578 1-2 Tablet(s) PO QHS 08/12/201409/28 Inactive Claritin-D 24 Hour 10 mg-240 mg tablet,extended release RxNo rm: 2003786 1 Tablet(s) PO QD 06/13/2014 09/10/2014 Inactive cyclobenzaprine 10 mg tablet RxNorm: 767356 1 Tablet(s) PO TID prn spasm 06/12/2014 02/26/2015 Inactive Xanax 1 mg tablet RxNorm: 292503 1-2 Tablet(s) PO QHS 05/09/201406/28 Inactive levothyroxine 75 mcg tablet RxNorm: 981318 1 Tablet(s) PO QD 201407/08/2014 Inactive cephalexin 500 mg capsule RxNorm: 772468 1 Capsule(s) PO QOD 201402/26/2015 Inactive simvastatin 10 mg tablet RxNorm: 461689 1 Tablet(s) PO QHS 04/10/19 15 06/12/2014 Inactive Xanax 1 mg tablet RxNorm: 114477 1-2 Tablet(s) PO QHS 04/10/201404/28 Inactive levothyroxine 75 mcg tablet RxNorm: 403202 1 Tablet(s) PO QD 201404/09/2014 Inactive levothyroxine 75 mcg capsule RxNorm: 476835 1 Capsule(s) PO QD 03/3104/10/2014 Inactive Activella 1 mg-0.5 mg tablet RxNorm: 7444651 1 Tablet(s) PO QD 03/0109/11/2014 Inactive bupropion HCl SR 100 mg tablet,sustained-release RxNorm: 993 503 1 Tablet(s) PO BID 03/04/2014 08/30/2014 Inactive Activella 1 mg-0.5 mg tablet RxNorm: 5843466 1 Tablet(s) PO QD 01/2803/18/2014 Inactive levothyroxine 75 mcg capsule RxNorm: 807178 1 Capsule(s) PO QD 12/2904/08/2014 Inactive simvastatin 10 mg tablet RxNorm: 605106 1 Tablet(s) PO QHS 01/10/20 14 04/08/2014 Inactive cyclobenzaprine 10 mg tablet RxNorm: 903185 1 Tablet(s) PO TID prn spasm 01/09/2014 04/08/2014 Inactive Cipro 500 mg tablet RxNorm: 412200 1 Tablet(s) PO BID 12/25/201304/2013 Inactive Cipro 500 mg tablet RxNorm: 171391 1 Tablet(s) PO BID 12/25/201311/29 Inactive bupropion HCl SR 100 mg tablet,sustained-release RxNorm: 993 503 1 Tablet(s) PO QAM 12/11/2013 03/03/2014 Inactive cephalexin 500 mg capsule RxNorm: 677116 1 Capsule(s) PO QOD 201304/09/2014 Inactive Xanax 1 mg tablet RxNorm: 276381 1-2 Tablet(s) PO QHS 10/15/201310/29 Inactive simvastatin 10 mg tablet RxNorm: 952922 1 Tablet(s) PO QHS 10/11/19 14 01/07/2014 Inactive Celexa 40 mg tablet RxNorm: 384723 Tablet(s) PO TAKE 1 TABLET BY MOUTH ONCE DAILY. 09/18/2013 09/17/2013 Inactive Xanax 1 mg tablet RxNorm: 969062 1-2 Tablet(s) PO QHS 08/13/201308/28 Inactive simvastatin 10 mg tablet RxNorm: 254030 1 Tablet(s) PO QHS 07/12/19 14 10/08/2013 Inactive bupropion HCl SR 100 mg tablet,sustained-release RxNorm: 993 503 1 Tablet(s) PO QAM 05/22/2013 11/17/2013 Inactive Pamelor 10 mg capsule RxNorm: 003216 1 Capsule(s) PO QHS for PLATA /sleep 05/22/2013 06/04/2013 Inactive Xanax 1 mg tablet RxNorm: 043316 1-2 Tablet(s) PO QHS 05/15/201305/29 Inactive Pamelor 10 mg capsule RxNorm: 201260 1 Capsule(s) PO QHS for PLATA /sleep 05/15/2013 05/21/2013 Inactive Xanax 1 mg tablet RxNorm: 668457 1 Tablet(s) PO QHS 04/27/20132013 Inactive Zovirax 800 mg tablet RxNorm: 880496 1 Tablet(s) PO TID 04/05/2013 Inactive Xanax 1 mg tablet RxNorm: 289590 1 Tablet(s) PO QHS 04/03/2013 No Sto p Date Active bupropion HCl SR 100 mg tablet,sustained-release RxNorm: 993 503 1 Tablet(s) PO QAM 03/26/2013 05/21/2013 Inactive bupropion HCl SR 100 mg tablet,sustained-release RxNorm: 993 503 1 Tablet(s) PO QAM 03/06/2013 03/25/2013 Inactive Pamelor 10 mg capsule RxNorm: 604739 1 Capsule(s) PO QHS for PLATA /sleep 02/14/2013 05/14/2013 Inactive levothyroxine 75 mcg capsule RxNorm: 826116 1 Capsule(s) PO QD 12/2901/08/2014 Inactive simvastatin 10 mg tablet RxNorm: 212289 1 Tablet(s) PO QHS TAKE 1 TABLET BY MOUTH ONCE DAILY AT BEDTIME. 01/15/2013 07/10/2013 Inactive cyclobenzaprine 10 mg tablet RxNorm: 433039 1 Tablet(s) PO TID prn spasm 12/25/2012 06/22/2013 Inactive Pamelor 10 mg capsule RxNorm: 174840 1 Capsule(s) PO QHS for PLATA /sleep 11/29/2012 02/14/2013 Inactive Celexa 40 mg tablet RxNorm: 887685 Tablet(s) PO TAKE 1 TABLET BY MOUTH ONCE DAILY. 10/11/2012 09/17/2013 Inactive simvastatin 10 mg tablet RxNorm: 490822 Tablet(s) PO TA KE 1 TABLET BY MOUTH ONCE DAILY AT BEDTIME. 10/11/2012 01/14/2013 Inactive simvastatin 10 mg tablet RxNorm: 545477 1 Tablet(s) PO QD 07/11/2012 10/08/2012 Inactive simvastatin 10 mg tablet RxNorm: 470058 1 Tablet(s) PO QD 04/14/2012 07/11/2012 Inactive simvastatin 10 mg tablet RxNorm: 926414 1 Tablet(s) PO QD 04/14/2012 04/13/2012 Inactive Celexa 40 mg tablet RxNorm: 323317 1 Tablet(s) PO QD 03/15/201209/10 Inactive cyclobenzaprine 10 mg tablet RxNorm: 696229 1 Tablet(s) PO TID prn spasm 02/02/2012 02/01/2012 Inactive cyclobenzaprine 10 mg tablet RxNorm: 299884 1 Tablet(s) PO TID prn spasm 02/02/2012 07/30/2012 Inactive Diflucan 100 mg Tab RxNorm: 763366 1 Tablet(s) PO QD 08/17/201108/22 Inactive Cipro 250 mg Tab RxNorm: 919618 1 Tablet(s) PO QD 08/17/2011 10/15/19 12 Inactive Levaquin 500 mg Tab RxNorm: 693003 1 Tablet(s) PO QD 08/17/201108/22 Inactive Pyridium 200 mg Tab RxNorm: 2984540 1 Tablet(s) PO TID 10/14/2010 Inactive may turn urine orange-red color. Cipro 500 mg Tab RxNorm: 405694 1 Tablet(s) PO BID 10/14/2010 011 Inactive levothyroxine 75 mcg capsule RxNorm: 562392 1 Capsule(s) PO QD 12/3001/14/2011 Inactive Vitamin D3 5,000 unit tablet RxNorm: 821728 1 Tablet(s) PO QD No Star t Date Active Nasacort 55 mcg nasal spray aerosol RxNorm: 2356985 2 Sp ray NASAL each nostril QHS No Start Date Active cyclobenzaprine 10 mg tablet RxNorm: 356663 1 Tablet(s) PO TID as needed No Start Date 11/22/2018 Inactive Vitamin D2 1,000 unit capsule RxNorm: 666594 3 Capsule(s) PO QD No Start Date 11/16/2017 Inactive diclofenac sodium 75 mg tablet,delayed release RxNorm: 67792 6 1 Tablet(s) PO BID No Start Date 03/16/2016 Inactive cephalexin 500 mg capsule RxNorm: 772860 1 Capsule(s) PO QOD No Sta rt Date 12/04/2013 Inactive cyclobenzaprine 10 mg tablet RxNorm: 613773 1 Tablet(s) PO QHS No S tart Date 02/01/2012 Inactive loratadine 10 mg tablet RxNorm: 043441 1 Tablet(s) PO QHS No Start Date 05/14/2019 Inactive hydrocodone 5 mg-acetaminophen 500 mg tablet RxNorm: 369035 1 -2 Tablet(s) PO Q6H as needed No Start Date 08/09/2018 Inactive etodolac 400 mg tablet RxNorm: 952797 1 Tablet(s) PO TID No Start D ate 09/17/2018 Inactive Xanax 1 mg tablet RxNorm: 219918 1 Tablet(s) PO QHS No Start Date 04/2013 Inactive Vitamin D3 1,000 unit capsule RxNorm: 680750 1 Capsule(s) PO QD No Start Date 06/12/2014 Inactive estradiol 2 mg tablet RxNorm: 498675 1/2 Tablet(s) PO QD No Start D ate 03/05/2013 Inactive Celexa 40 mg tablet RxNorm: 470327 1 Tablet(s) PO QD No Start Date Inactive Activella 1 mg-0.5 mg tablet RxNorm: 6257569 1 Tablet(s) PO QD No S tart Date 07/10/2012 Inactive medroxyprogesterone 5 mg tablet RxNorm: 7850483 1/2 Tablet(s) PO QD No Start Date 03/05/2013 Inactive levothyroxine 88 mcg tablet RxNorm: 781646 1 Tablet(s) PO QD No Sta rt Date 02/26/2015 Inactive Keflex 500 mg capsule RxNorm: 602435 1 Capsule(s) PO PRN No Start D ate 08/16/2011 Inactive Activella 1 mg-0.5 mg tablet RxNorm: 3214545 1 Tablet(s) PO QHS No Start Date 03/27/2017 Inactive Activella 1 mg-0.5 mg tablet RxNorm: 7448335 1 Tablet(s) PO QD No S tart Date 02/06/2014 Inactive Flexeril 10 mg Tab RxNorm: 120868 1 Tablet(s) PO TID No Start Date Inactive prn spasm simvastatin 10 mg tablet RxNorm: 421638 1 Tablet(s) PO QD No Start Date 04/13/2012 Inactive Medication Administered No Medication Administered data Immunizations Vaccine Codes Date Status Influenza CVX: 135 01/16/2019 Complete Pneumococcal CVX: 133 01/16/2019 Complete Results No Results data Procedures Procedure Codes Date URINALYSIS NONAUTO W/O SCOPE CPT-4: 34455 07/17/2019 URINE CULTURE/ COLONY COUNT CPT-4: 97714 07/17/2019 DEXAMETHASONE SODIUM PHOS CPT-4: J1100 05/14/2019 THER/PROPH/DIAG INJ SC/IM CPT-4: 75657 05/14/2019 TRIAMCINOLONE ACET INJ NOS CPT-4: J3301 05/14/2019 FLU VACC PRSV FREE INC ANTIG 65 AND OLDER CPT-4: 61809 01/16/2019 FLU VACC PRSV FREE INC ANTIG 65 AND OLDER CPT-4: 68291 01/16/2019 PNEUMOCOCCAL VACC 13 NARESH IM CPT-4: 05851 01/16/2019 SKIN FUNGI CULTURE CPT-4: 17321 01/16/2019 IMMUNIZATION ADMIN CPT-4: 98176 01/16/2019 IMMUNIZATION ADMIN EACH ADD CPT-4: 70914 01/16/2019 THER/PROPH/DIAG INJ SC/IM CPT-4: 73492 01/17/2018 KETOROLAC TROMETHAMINE INJ CPT-4: J1885 01/17/2018 THER/PROPH/DIAG INJ SC/IM CPT-4: 73606 01/17/2018 PROMETHAZINE HCL INJECTION CPT-4: J2550 01/17/2018 URINALYSIS NONAUTO W/O SCOPE CPT-4: 23505 12/29/2017 URINE CULTURE/ COLONY COUNT CPT-4: 73573 12/29/2017 THER/PROPH/DIAG INJ SC/IM CPT-4: 52859 11/30/2017 TRIAMCINOLONE ACET INJ NOS CPT-4: J3301 11/30/2017 DEXAMETHASONE SODIUM PHOS CPT-4: J1100 11/30/2017 CEFTRIAXONE SODIUM INJECTION CPT-4: J0696 11/29/2017 THER/PROPH/DIAG INJ SC/IM CPT-4: 07139 11/29/2017 CEFTRIAXONE SODIUM INJECTION CPT-4: J0696 11/28/2017 THER/PROPH/DIAG INJ SC/IM CPT-4: 32163 11/28/2017 URINALYSIS NONAUTO W/O SCOPE CPT-4: 94748 10/10/2017 THER/PROPH/DIAG INJ SC/IM CPT-4: 02524 10/10/2017 TRIAMCINOLONE ACET INJ NOS CPT-4: J3301 10/10/2017 DEXAMETHASONE SODIUM PHOS CPT-4: J1100 10/10/2017 CEFTRIAXONE SODIUM INJECTION CPT-4: J0696 10/10/2017 THER/PROPH/DIAG INJ SC/IM CPT-4: 14966 10/10/2017 URINE CULTURE/ COLONY COUNT CPT-4: 27197 10/10/2017 THER/PROPH/DIAG INJ SC/IM CPT-4: 89218 11/02/2016 KETOROLAC TROMETHAMINE INJ CPT-4: J1885 11/02/2016 THER/PROPH/DIAG INJ SC/IM CPT-4: 30109 06/15/2016 TRIAMCINOLONE ACET INJ NOS CPT-4: J3301 06/15/2016 DEXAMETHASONE SODIUM PHOS CPT-4: J1100 06/15/2016 THER/PROPH/DIAG INJ SC/IM CPT-4: 55555 04/09/2016 KETOROLAC TROMETHAMINE INJ CPT-4: J1885 04/09/2016 PROMETHAZINE HCL INJECTION CPT-4: J2550 04/09/2016 EXC TR-EXT B9+ERASMO 0.5 CM< CPT-4: 52193 06/12/2015 URINALYSIS NONAUTO W/O SCOPE CPT-4: 62208 05/05/2015 URINE CULTURE/ COLONY COUNT CPT-4: 84796 05/05/2015 URINALYSIS NONAUTO W/O SCOPE CPT-4: 26864 03/24/2015 URINALYSIS NONAUTO W/O SCOPE CPT-4: 18502 02/27/2015 URINE CULTURE/ COLONY COUNT CPT-4: 51111 02/27/2015 THER/PROPH/DIAG INJ SC/IM CPT-4: 44633 04/18/2014 KETOROLAC TROMETHAMINE INJ CPT-4: J1885 04/18/2014 THER/PROPH/DIAG INJ SC/IM CPT-4: 43270 06/05/2013 TRIAMCINOLONE ACET INJ NOS CPT-4: J3301 06/05/2013 THER/PROPH/DIAG INJ SC/IM CPT-4: 66818 11/29/2012 KETOROLAC TROMETHAMINE INJ CPT-4: J1885 11/29/2012 URINALYSIS NONAUTO W/O SCOPE CPT-4: 62771 07/11/2012 URINE CULTURE/ COLONY COUNT CPT-4: 25495 07/11/2012 OCCULT BLOOD FECES CPT-4: 18988 02/17/2012 URINALYSIS NONAUTO W/O SCOPE CPT-4: 22822 08/27/2011 URINE CULTURE/ COLONY COUNT CPT-4: 81044 08/27/2011 URINALYSIS NONAUTO W/O SCOPE CPT-4: 23722 08/17/2011 URINE CULTURE/ COLONY COUNT CPT-4: 86339 08/17/2011 URINALYSIS NONAUTO W/O SCOPE CPT-4: 01980 12/28/2010 URINE CULTURE/ COLONY COUNT CPT-4: 51398 12/28/2010 URINALYSIS NONAUTO W/O SCOPE CPT-4: 35888 11/09/2010 URINE CULTURE/ COLONY COUNT CPT-4: 95446 11/09/2010 URINALYSIS NONAUTO W/O SCOPE CPT-4: 93889 10/29/2010 URINE CULTURE/ COLONY COUNT CPT-4: 93292 10/29/2010 URINE CULTURE/ COLONY COUNT CPT-4: 10190 10/14/2010 URINALYSIS NONAUTO W/O SCOPE CPT-4: 71375 10/14/2010 Vital Signs Date Vital 07/17/2019 Blood [...] 1: 122/74 Code: 8480-6 BMI: 22.0 Code: 18543-0 Heart Rate 1: 72 bpm Height: 5'3" [...] 1: 126/72 Code: 8480-6 BMI: 22.7 Code: 00722-3 Heart Rate 1: 72 bpm Height: 5'3" [...] 1: 112/70 Code: 8480-6 BMI: 22.0 Code: 50168-5 Heart Rate 1: 80 bpm Height: 5'3" [...] 1: 122/64 Code: 8480-6 BMI: 21.4 Code: 10295-9 Heart Rate 1: 88 bpm Height: 5'3" Respiratory Rate: 22 bpm SpO2: 96% Tempera ture: 36.8 (C) / 98.2 (F) Weight: 121 lbs 06/22/2017 Blood Pressure 1: 124/78 Code: 8480-6 BMI: 21.6 Code: 15858-1 Heart Rate 1: 76 bpm Height: 5'3" Respiratory Rate: 20 bpm Temperature: 36 .8 (C) / 98.3 (F) Weight: 122 lbs 03/28/2017 Blood Pressure 1: 92/60 Code: 8480-6 BMI: 20.4 C ode: 66904-8 Heart Rate 1: 72 bpm Height: 5'3" Respiratory Rate: 20 bpm Temperature: 36 .9 (C) / 98.4 (F) Weight: 115 lbs 02/16/2017 Blood Pressure 1: 106/70 Code: 8480-6 BMI: 21.3 Code: 01717-7 Heart Rate 1: 82 bpm Height: 5'3" Respiratory Rate: 22 bpm SpO2: 97% Tempera ture: 36.1 (C) / 97.0 (F) Weight: 120 lbs 09/06/2016 Blood Pressure 1: 118/64 Code: 8480-6 BMI: 22.7 Code: 82773-0 Heart Rate 1: 78 bpm Height: 5'3" Respiratory Rate: 20 bpm SpO2: 98% Tempera ture: 36.2 (C) / 97.2 (F) Weight: 128 lbs 08/16/2016 Blood Pressure 1: 118/78 Code: 8480-6 BMI: 22.1 Code: 48873-0 Heart Rate 1: 78 bpm Height: 5'3" Respiratory Rate: 20 bpm SpO2: 97% Tempera ture: 36.2 (C) / 97.1 (F) Weight: 125 lbs 07/19/2016 Blood Pressure 1: 116/68 Code: 8480-6 BMI: 22.5 Code: 34873-5 Heart Rate 1: 76 bpm Height: 5'3" Respiratory Rate: 20 bpm Temperature: 36 .8 (C) / 98.2 (F) Weight: 127 lbs 07/06/2016 Blood Pressure 1: 106/70 Code: 8480-6 BMI: 22.5 Code: 03610-3 Heart Rate 1: 72 bpm Height: 5'3" Respiratory Rate: 20 bpm SpO2: 97% Tempera ture: 36.8 (C) / 98.2 (F) Weight: 127 lbs 06/15/2016 Blood Pressure 1: 136/76 Code: 8480-6 BMI: 22.9 Code: 66903-3 Heart Rate 1: 74 bpm Height: 5'3" Respiratory Rate: 18 bpm SpO2: 98% Tempera ture: 36.4 (C) / 97.6 (F) Weight: 129 lbs 04/09/2016 Blood Pressure 1: 124/78 Code: 8480-6 BMI: 23.0 Code: 74663-3 Heart Rate 1: 86 bpm Height: 5'3" Respiratory Rate: 20 bpm SpO2: 96% Tempera ture: 36.5 (C) / 97.7 (F) Weight: 130 lbs 03/17/2016 Blood Pressure 1: 116/74 Code: 8480-6 BMI: 23.4 Code: 91393-4 Heart Rate 1: 84 bpm Height: 5'3" Respiratory Rate: 20 bpm SpO2: 97% Tempera ture: 36.8 (C) / 98.3 (F) Weight: 132 lbs 11/13/2015 Blood Pressure 1: 124/78 Code: 8480-6 BMI: 23.4 Code: 32858-0 Heart Rate 1: 88 bpm Height: 5'3" Respiratory Rate: 24 bpm SpO2: 98% Tempera ture: 36.8 (C) / 98.2 (F) Weight: 132 lbs 06/12/2015 Blood Pressure 1: 126/78 Code: 8480-6 BMI: 23.6 Code: 94443-5 Heart Rate 1: 80 bpm Height: 5'3" Respiratory Rate: 20 bpm Temperature: 36 .9 (C) / 98.4 (F) Weight: 133 lbs 04/22/2015 Blood Pressure 1: 126/68 Code: 8480-6 BMI: 23.6 Code: 29752-2 Heart Rate 1: 80 bpm Height: 5'3" Respiratory Rate: 20 bpm Temperature: 36 .6 (C) / 97.9 (F) Weight: 133 lbs 03/24/2015 Blood Pressure 1: 116/66 Code: 8480-6 BMI: 22.9 Code: 38351-3 Heart Rate 1: 74 bpm Height: 5'3" Respiratory Rate: 20 bpm Temperature: 36 .4 (C) / 97.6 (F) Weight: 129 lbs 02/27/2015 Blood Pressure 1: 106/64 Code: 8480-6 BMI: 22.7 Code: 89628-6 Heart Rate 1: 74 bpm Height: 5'3" Respiratory Rate: 20 bpm Temperature: 36 .8 (C) / 98.2 (F) Weight: 128 lbs 06/13/2014 Blood Pressure 1: 104/66 Code: 8480-6 BMI: 22.7 Code: 03795-8 Heart Rate 1: 84 bpm Height: 5'3" Respiratory Rate: 20 bpm Temperature: 37 .0 (C) / 98.6 (F) Weight: 128 lbs 04/18/2014 Blood Pressure 1: 112/62 Code: 8480-6 BMI: 22.0 Code: 66478-5 Heart Rate 1: 82 bpm Height: 5'3" Respiratory Rate: 18 bpm Temperature: 36 .4 (C) / 97.6 (F) Weight: 124 lbs 12/05/2013 Blood Pressure 1: 106/70 Code: 8480-6 BMI: 23.7 Code: 11503-3 Heart Rate 1: 84 bpm Height: 5'3" [...] 1: 126/88 Code: 8480-6 BMI: 22.3 Code: 03357-8 Heart Rate 1: 96 bpm Height: 5'4" Respiratory Rate: 20 bpm Temperature: 37 .7 (C) / 99.9 (F) Weight: 130 lbs 11/29/2012 Blood Pressure 1: 122/76 Code: 8480-6 BMI: 23.0 Code: 10698-0 Heart Rate 1: 84 bpm Height: 5'4" Respiratory Rate: 20 bpm Temperature: 36 .9 (C) / 98.4 (F) Weight: 134 lbs 09/26/2012 Blood Pressure 1: 114/76 Code: 8480-6 BMI: 23.0 Code: 24268-2 Heart Rate 1: 84 bpm Height: 5'4" Respiratory Rate: 20 bpm Temperature: 37 .3 (C) / 99.1 (F) Weight: 134 lbs 07/11/2012 Blood Pressure 1: 126/78 Code: 8480-6 BMI: 23.7 Code: 13909-2 Heart Rate 1: 76 bpm Height: 5'4" Respiratory Rate: 20 bpm Temperature: 37 .1 (C) / 98.7 (F) Weight: 138 lbs 02/02/2012 Blood Pressure 1: 108/70 Code: 8480-6 BMI: 23.2 Code: 28819-2 Heart Rate 1: 88 bpm Height: 5'4" Respiratory Rate: 20 bpm Temperature: 36 .4 (C) / 97.6 (F) Weight: 135 lbs 08/17/2011 Blood Pressure 1: 108/70 Code: 8480-6 BMI: 23.2 Code: 51308-6 Heart Rate 1: 72 bpm Height: 5'4" Respiratory Rate: 20 bpm Temperature: 36 .8 (C) / 98.2 (F) Weight: 135 lbs 10/14/2010 Blood Pressure 1: 120/72 Code: 8480-6 BMI: 23.4 Code: 54197-5 Heart Rate 1: 78 bpm Height: 5'3" [...] dysuria. Encounters Encounter Performer Location Codes Date ([id number]) OFFICE/OUTPATIENT VISIT EST Diagnosis: Urinary tract infection, site not specified[ICD10: N39.0] Diagnosis: Dysuria[ICD10: R30.0] Vandana CARROLL DO [facility] CPT-4: 30212 07/17/2019 ([id number]) OFFICE/OUTPATIENT VISIT EST Diagnosis: Allergic dermatitis[ICD10: L23.9] Alexandra CARROLL DO [employer] CPT-4: 71355 06/26/2019 ([id number]) OFFICE/OUTPATIENT VISIT EST Diagnosis: Contact dermatitis due to plant[ICD10: L25.5] Diagnosis: Cellulitis of left arm[ICD10: L03.114] Vandana Amritasasha CARROLL [employer] CPT-4: 17575 05/14/2019 ([id number]) OFFICE/OUTPATIENT VISIT EST Diagnosis: Ventral hernia[ICD10: K43.9] Diagnosis: Incisional hernia[ICD10: K43.2] Alexandra CARROLL DO [employer] CPT-4: 88187 04/10/2019 ([id number]) OFFICE/OUTPATIENT VISIT EST Diagnosis: Insomnia[ICD10: G47.00] Diagnosis: Thrombocytosis[ICD10: D47.3] Alexandra CARROLL [employer] CPT-4: 85964 02/14/2019 ([id number]) OFFICE/OUTPATIENT VISIT EST Diagnosis: Small bowel obstruction[ICD10: K56.609] Diagnosis: FLU VACCINE[ICD10: Z23] Diagnosis: PNEUMOCOCCAL VACCINE[ICD10: Z23] Diagnosis: Onychomycosis[ICD10: B35.1] Alexandra KUNZ [facility] CPT-4: 26872 01/16/2019 ([id number]) OFFICE/OUTPATIENT VISIT EST Diagnosis: Diarrhea, unspecified[ICD10: R19.7] Diagnosis: Radiculopathy, lumbosacral region[ICD10: M54.17] Alexandra CARROLL [facility] CPT-4: 99095 09/18/2018 OFFICE/OUTPATIENT VISIT EST Diagnosis: Other intervertebral disc degeneration, lumbar region[ICD10: M51.36] Diagnosis: Sacroiliitis, not elsewhere classified[ICD10: M46.1] Diagnosis: Obstructive sleep apnea (adult) (pediatric)[ICD10: G47.33] [facility]: 70675 08/10/2018 ([id number]) OFFICE/OUTPATIENT VISIT EST Diagnosis: Fracture of unspecified part of left clavicle, subsequent encounter for fracture with routine healing[ICD10: S42.002D] Diagnosis: Cervicalgia[ICD10: M54.2] Diagnosis: Radiculopathy, lumbosacral region[ICD10: M54.17] [facility]PT-[facility]: 87770 03/27/2018 ([id number]) OFFICE/OUTPATIENT VISIT EST Diagnosis: Fracture of unspecified part of left clavicle, subsequent encounter for fracture with routine healing[ICD10: S42.002D] Diagnosis: Other intervertebral disc degeneration, lumbar region[ICD10: M51.36] Diagnosis: Unspecified fracture of first thoracic vertebra, subsequent encounter for fracture with routine healing[ICD10: S22.019D] Diagnosis: Unspecified fracture of second thoracic vertebra, subsequent encounter for fracture with routine healing[ICD10: S22.029D] [facility]PT-[facility]: 29412 02/23/2018 ([id number]) OFFICE/OUTPATIENT VISIT EST Diagnosis: Fracture of unspecified part of left clavicle, subsequent encounter for fracture with routine healing[ICD10: S42.002D] Diagnosis: Unspecified fracture of first thoracic vertebra, subsequent encounter for fracture with routine healing[ICD10: S22.019D] Diagnosis: Unspecified fracture of second thoracic vertebra, subsequent encounter for fracture with routine healing[ICD10: S22.029D] Alexandra CARROLL DO [facility] CPT-4: 58248 01/24/2018 ([id number]) OFFICE/OUTPATIENT VISIT EST Diagnosis: Migraine, unspecified, not intractable, without status migrainosus[ICD10: G43.909] Alexandra CARROLL DO [facility] CPT - 4: 93541 01/17/2018 ([id number]) OFFICE/OUTPATIENT VISIT EST Diagnosis: Hematuria, unspecified[ICD10: R31.9] Diagnosis: Other intervertebral disc degeneration, lumbar region[ICD10: M51.36] Diagnosis: Retention of urine, unspecified[ICD10: R33.9] Alexandra CARROLL [facility] CPT-4: 99331 12/29/2017 OFFICE/OUTPATIENT VISIT EST Diagnosis: Fracture of [...] Diagnosis: Low back pain[ICD10: M54.5] Alexandra KUNZ [facility] CPT-4: 83583 12/06/2017 ([id number]) OFFICE/OUTPATIENT VISIT EST Diagnosis: Cellulitis of right upper limb[ICD10: L03.113] Diagnosis: Allergy status to other antibiotic agents status[ICD10: Z88.1] Vandana CARROLL [facility] CPT-4: 61964 12/01/2017 ([id number]) OFFICE/OUTPATIENT VISIT EST Diagnosis: Cellulitis of right upper limb[ICD10: L03.113] Diagnosis: Allergy status to other antibiotic agents status[ICD10: Z88.1] Vandana CARROLL [facility] CPT-4: 38592 11/30/2017 ([id number]) OFFICE/OUTPATIENT VISIT EST Diagnosis: Cellulitis of right upper limb[ICD10: L03.113] Vandana CARROLL DO [facility] CPT-4: 94487 11/29/2017 ([id number]) OFFICE/OUTPATIENT VISIT EST Diagnosis: Cellulitis of right upper limb[ICD10: L03.113] Vandana CARROLL DO [facility] CPT-4: 86525 11/28/2017 ([id number]) OFFICE/OUTPATIENT VISIT EST Diagnosis: Other intervertebral disc degeneration, lumbar region[ICD10: M51.36] Diagnosis: Other retention of urine[ICD10: R33.8] Diagnosis: Primary insomnia[ICD10: F51.01] Diagnosis: Other spondylosis, site unspecified[ICD10: M47.899] Alexandra CARROLL DO [facility] CPT-4: 13874 11/17/2017 ([id number]) OFFICE/OUTPATIENT VISIT EST Diagnosis: Radiculopathy, lumbosacral region[ICD10: M54.17] Diagnosis: Other retention of urine[ICD10: R33.8] Diagnosis: Urinary tract infection, site not specified[ICD10: N39.0] Vandana CARROLL DO [facility] CPT-4: 05259 10/10/2017 ([id number]) PREV VISIT EST AGE 40-64 Diagnosis: Encounter for general adult medical examination without abnormal findings[ICD10: Z00.00] Diagnosis: Other intervertebral disc degeneration, lumbar region[ICD10: M51.36] Diagnosis: Hypothyroidism, unspecified[ICD10: E03.9] Diagnosis: Mixed hyperlipidemia[ICD10: E78.2] Alexandra CARROLL DO [facility] CPT-4: 82990 06/22/2017 ([id number]) OFFICE/OUTPATIENT VISIT EST Diagnosis: URI, ACUTE[ICD10: J06.9] Alexandra ROMAN [facility] CPT-4: 95092 03/28/2017 OFFICE/OUTPATIENT VISIT EST Diagnosis: Acute sinusitis, unspecified[ICD10: J01.90] Vandana CARROLL DO [facility] CPT-4: 47911 02/16/2017 ([id number]) OFFICE/OUTPATIENT VISIT EST Diagnosis: Migraine, unspecified, not intractable, without status migrainosus[ICD10: G43.909] Alexandra CARROLL [facility] CPT - 4: 58535 11/02/2016 ([id number]) OFFICE/OUTPATIENT VISIT EST Diagnosis: Pain in thoracic spine[ICD10: M54.6] Diagnosis: Chondrocostal junction syndrome [Tietze][ICD10: M94.0] Alexandra CARROLL [facility] CPT-4: 40134 09/06/2016 OFFICE/OUTPATIENT VISIT EST Diagnosis: Acute sinusitis, unspecified[ICD10: J01.90] Vidya Manuel ALEXANDRA CARROLL [facility] CPT-4: 61146 08/16/2016 ([id number]) OFFICE/OUTPATIENT VISIT EST Diagnosis: Primary insomnia[ICD10: F51.01] Diagnosis: Cramp and spasm[ICD10: R25.2] Diagnosis: Major depressive disorder, single episode, mild[ICD10: F32.0] Alexandra CARROLL [facility] CPT-4: 71420 07/19/2016 ([id number]) OFFICE/OUTPATIENT VISIT EST Diagnosis: Obstructive sleep apnea (adult) (pediatric)[ICD10: G47.33] Diagnosis: Other fatigue[ICD10: R53.83] Diagnosis: Allergic rhinitis due to pollen[ICD10: J30.1] Diagnosis: Headache[ICD10: R51] Alexandra CARROLL [facility] CPT-4: 53867 07/06/2016 ([id number]) OFFICE/OUTPATIENT VISIT EST Diagnosis: Acute recurrent sinusitis, unspecified[ICD10: J01.91] Diagnosis: Allergic rhinitis due to pollen[ICD10: J30.1] Alexandra CARROLL [facility] CPT-4: 71987 06/15/2016 ([id number]) OFFICE/OUTPATIENT VISIT EST Diagnosis: Migraine, unspecified, not intractable, without status migrainosus[ICD10: G43.909] Diagnosis: Allergic rhinitis, unspecified[ICD10: J30.9] Nae CARROLL [facility] CPT-4: 05169 04/09/2016 ([id number]) OFFICE/OUTPATIENT VISIT EST Diagnosis: Hypothyroidism, unspecified[ICD10: E03.9] Diagnosis: Other fatigue[ICD10: R53.83] Diagnosis: Mixed hyperlipidemia[ICD10: E78.2] Diagnosis: Major depressive disorder, single episode, mild[ICD10: F32.0] Alexandra CARROLL DO [facility] CPT-4: 43730 03/17/2016 ([id number]) OFFICE/OUTPATIENT VISIT EST Diagnosis: Insomnia, unspecified[ICD10: G47.00] Diagnosis: Encounter for therapeutic drug level monitoring[ICD10: Z51.81] Nae CARROLL [facility] CPT-4: 16106 11/13/2015 ([id number]) OFFICE/OUTPATIENT VISIT EST Diagnosis: Hematuria, unspecified[ICD10: R31.9] Alexandra CARROLL [facility] CPT-4: 38506 05/05/2015 ([id number]) OFFICE/OUTPATIENT VISIT EST Diagnosis: Other intervertebral disc degeneration, lumbar region[ICD10: M51.36] Diagnosis: Radiculopathy, lumbosacral region[ICD10: M54.17] Alexandra CARROLL [facility] CPT-4: 49851 04/22/2015 ([id number]) OFFICE/OUTPATIENT VISIT EST Diagnosis: Low back pain[ICD10: M54.5] Diagnosis: Recurrent and persistent hematuria with unspecified morphologic changes[ICD10: N02.9] Alexandra CARROLL DO [facility] CPT-4: 67145 03/24/2015 ([id number]) OFFICE/OUTPATIENT VISIT EST Diagnosis: Acute sinusitis, unspecified[ICD10: J01.90] Diagnosis: Headache[ICD10: R51] Diagnosis: Retention of urine, unspecified[ICD10: R33.9] Diagnosis: Hypothyroidism, unspecified[ICD10: E03.9] Alexandra CARROLL [facility] CPT-4: 37418 02/27/2015 ([id number]) PREV VISIT EST AGE 40-64 Diagnosis: ROUTINE MEDICAL EXAM[ICD9: V70.0] Diagnosis: HYPOTHYROIDISM[ICD9: 244.9] Diagnosis: HYPERLIPIDEMIA NEC/NOS[ICD9: 272.4] Alexandra SHAFFERUnique ADALID Ty JACOBONDVIOLETTA SALGUERO [employer] CPT-4: 44542 06/13/2014 ([id number]) OFFICE/OUTPATIENT VISIT EST Diagnosis: CEPHALGIA[ICD9: 784.0] Diagnosis: Nausea[ICD9: 787.02] Shalinisa Romeo SHAFFERLINE Ty JACOBONDVIOLETTA [employer] CPT-4: 20658 04/18/2014 ([id number]) OFFICE/OUTPATIENT VISIT EST Diagnosis: INSOMNIA NOS[ICD9: 780.52] Diagnosis: Complicated grieving[ICD9: 309.0] Alexandradanielle Louise SAri JACOBONDVIOLETTA [employer] CPT-4: 31823 12/05/2013 ([id number]) OFFICE/OUTPATIENT VISIT EST Diagnosis: Muscle twitch[ICD9: 781.0] Diagnosis: ALLERGIC RHINITIS[ICD9: 477.9] Alexandra Danelawandavioletta SHAFFERALEXANDRA Macy CARROLL [employer] [facility] CPT-4: 88897 06/05/2013 ([id number]) OFFICE/OUTPATIENT VISIT EST Diagnosis: DEPRESSIVE DISORDER NEC[ICD9: 311] Alexandra QUINTERO S. DANENDER [employer] CPT-4: 27708 05/22/2013 OFFICE/OUTPATIENT VISIT EST Diagnosis: Shingles[ICD9: 053.9] Alexandra Danejames FORDE MacyAri DANENDVIOLETTA [employer] [facility] CPT-4: 49967 04/05/2013 ([id number]) OFFICE/OUTPATIENT VISIT EST Diagnosis: DEPRESSIVE DISORDER NEC[ICD9: 311] Alexandra QUINTERO S. DANENDER [employer] CPT-4: 20687 03/26/2013 ([id number]) OFFICE/OUTPATIENT VISIT EST Diagnosis: Complicated grieving[ICD9: 309.0] Alexandra Burlesonvioletta PAM Louise Ty JACOBONDER [employer] CPT-4: 82573 03/06/2013 ([id number]) OFFICE/OUTPATIENT VISIT EST Diagnosis: CEPHALGIA, TENSION[ICD9: 307.81] Diagnosis: MIGRAINE NOS/NOT INTRCBL[ICD9: 346.90] Diagnosis: Cervicalgia[ICD9: 723.1] Alexandra PLATT IZABELLA [facility] CPT-4: 38797 11/29/2012 ([id number]) OFFICE/OUTPATIENT VISIT EST Diagnosis: Jaw pain[ICD9: 784.92] Diagnosis: Shoulder pain[ICD9: 719.41] Diagnosis: Family history of premature coronary artery disease[ICD9: V17.3] Alexandra CARROLL [facility] CPT-4: 53397 09/26/2012 ([id number]) OFFICE/OUTPATIENT VISIT EST Diagnosis: ABDOMINAL PAIN[ICD9: 789.00] Diagnosis: Constipation[ICD9: 564.00] Diagnosis: Hematuria[ICD9: 599.70] Alexandra BURLESON [facility] CPT-4: 88976 07/11/2012 ([id number]) OFFICE/OUTPATIENT VISIT EST Diagnosis: ANEMIA NOS[ICD9: 285.9] Alexandra JACOBOND [facility] CPT-4: 52995 02/17/2012 ([id number]) PREV VISIT EST AGE 40-64 Diagnosis: ROUTINE MEDICAL EXAM[ICD9: V70.0] Diagnosis: HYPOTHYROIDISM[ICD9: 244.9] Diagnosis: HYPERLIPIDEMIA NEC/NOS[ICD9: 272.4] Diagnosis: Obstructive sleep apnea[ICD9: 327.23] Alexandra LEWNE Ty CARROLL [facility] CPT-4: 87227 02/02/2012 ([id number]) OFFICE/OUTPATIENT VISIT EST Diagnosis: URINARY TRACT INFECTION[ICD9: 599.0] Alexandra JACOBONDVIOLETTA [facility] CPT-4: 34597 08/27/2011 ([id number]) OFFICE/OUTPATIENT VISIT EST Diagnosis: URINARY TRACT INFECTION[ICD9: 599.0] Diagnosis: ACUTE CYSTITIS[ICD9: 595.0] Alexandra Crawford [facility] CPT-4: 92386 08/17/2011 OFFICE/OUTPATIENT VISIT EST Diagnosis: URINARY TRACT INFECTION[ICD9: 599.0] Steph LOZANO Ty OLSON CPT-4: 04379 10/14/2010 Plan of Care Planned Activity Notes [...] N39.0 07/17/2019 Patient Education: Cipro- [employer] [id number] https://www.[employer]/sampleVersly/resources/getResource/61/[email or web address]-ns [email or web address].pdf Completed 07/17/2019 Visit Diagnosis Plan: Allergic dermatitis Discussion: Could be numerous things that were given during surgery Continue benadryl Add Prednisone Notify if persists/worsens ICD-9 : 692.9 ICD-10 : L23.9 06/26/2019 Appointment: Alexandra Carroll WPtel: [phone] [id number] ACUTE ILLNESS 06/26/2019 Patient Education: prednisone- [employer] Coupon [id number] https://www.[employer]/resources/getResource/61/95733147-[email or web address]-z7 Completed 06/26/2019 Visit Diagnosis Plan: Cellulitis of [...] injection a week pre-op and dr. albert's lithographic photographer voiced ok to give. ICD-9 : 692.6 ICD-10 : L25.5 05/14/2019 Appointment: Vandana Crowe [address] [place], [place] [id number] AC[facility] 05/14/2019 Patient Education: Levaquin- [employer] Coupon [id number] https://www.[employer].com/samplemd/resources/getResource/61/5eh91s57-k658-6079-92 Completed 05/14/2019 Visit Diagnosis Plan: Ventral hernia Discussion: See s urgery for repair Discussed signs of incarceration or strangulation then is to report to ER ICD-9 : 553.20 ICD-10 : K43.9 04/10/2019 Appointment: Alexandra Carroll WPtel: [address] [place], [place] [phone] [place] left second message 04/10/19 at 10:20 ACUTE ILLNE SS 04/10/2019 Care Plan: Referral Order SNOMED-CT : 30 [id number] Pending 04/10/2019 Visit Diagnosis Plan: Thrombocytosis Discussion: [...] : G47.00 02/14/2019 Appointment: Alexandra Carroll WPtel: [address] [place], [place] [phone] US FOLLOW UP 02/14/2019 Appointment: Alexandra Carroll WPtel: [address] [place], [place] [id number] US CANCELED 02/12/2019 Visit Diagnosis Plan: Small bowel obstruction Discussi on: S/P surgery in September with postop complications of wound dehiscence ICD-9 : 560.9 ICD-10 : K56.609 01/16/2019 Visit Diagnosis Plan: Onychomycosis Discussion: Send n ail for culture ICD-9 : 110.1 ICD-10 : B35.1 01/16/2019 Appointment: Alexandra Carroll WPtel: [address] [place], [place] [phone] US MEDICATION REVIEW 01/16/2019 Appointment: Alexandra Carroll WPtel: [address] [place], [place] [phone] US CANCELED 12/12/2018 Visit Diagnosis Plan: Radiculopathy, lumbosacral regio n Discussion: Had left SI joint injection by Dr. Baig about 2 weeks ago and has fwup with him ICD-9 : 724.4 ICD-10 : M54.17 09/18/2018 Visit Diagnosis Plan: Diarrhea, unspecified Discussion : Due for updated colonoscopy ICD-9 : 787.91 ICD-10 : R19.7 09/18/2018 Appointment: Alexandra Carroll WPtel: [address] [place], [place] [phone] US PATIENT CONSULT 15 09/18/2018 Care Plan: Referral Order SNOMED-CT : 30 [id number] Pending 09/18/2018 Visit Diagnosis Plan: Sacroiliitis, not [...] : G47.33 08/10/2018 Appointment: Alexandra Carroll WPtel: [address] [place], [place] [phone] US MEDICATION REVIEW 08/10/2018 Care Plan: Referral Order SNOMED-CT : 30 [id number] Pending 08/10/2018 Appointment: Alexandra Carroll WPtel: [address] [place], [place] [phone] US CANCELED 04/17/2018 Visit Diagnosis Plan: Fracture [...] : M54.17 03/27/2018 Appointment: Alexandra Carroll WPtel: [address] [place], [place] [phone] US FOLLOW UP 03/27/2018 Visit Diagnosis Plan: [...] : M51.36 02/23/2018 Appointment: Alexandra Carroll WPtel: [address] [place], [place] [phone] US FOLLOW UP 02/23/2018 Patient Education: gabapentin- [employer] Coupon [id number] https://www.[employer]/samplemd/resources/getResource/61/[email or web address]-n9 Completed 02/23/2018 Visit Diagnosis Plan: Fracture of unspec ified part of left clavicle, subsequent encounter for fracture with routine healing Discussion: Hold on PT and do home stretches Trial of gabapentin Recheck 4 weeks ICD-9 : V54.11 ICD-10 : S42.002D 01/24/2018 Appointment: Alexandra Carroll WPtel: [address] [place], [place] [id number] US FOLLOW UP 01/24/2018 Visit Diagnosis Plan: Migraine, unspecif ied, not intractable, without status migrainosus Discussion: Toradol and phenergan given ICD-9 : 346.90 ICD-10 : G43.909 01/17/2018 Appointment: Alexandra Carroll WPtel: [address] [place], [place] [phone] ACUTE ILLNESS 01/17/2018 Visit Diagnosis Plan: Hematuria, [...] : R33.9 12/29/2017 Appointment: Alexandra Carroll WPtel: [address] [place], [place] [phone] ACUTE [facility] 12/29/2017 Care Plan: US EXAM PELVIC COMPLETE LOINC : 72320-3 Pending 12/29/2017 Care Plan: ECHO EXAM OF ABDOMEN LOINC : 25100-2 Pending 12/29/2017 Care Plan: Referral Order SNOMED-CT : 30 [id number] Pending 12/29/2017 Visit Diagnosis Plan: Fracture of unspec ified part of left clavicle, subsequent encounter for fracture with routine healing Discussion: Start PT in another 7-14 days Off work for the rest of this week then may return to part-time work on 12/12/17 Fwup in 4 weeks ICD-9 : V54.11 ICD-10 : S42.002D 12/06/2017 Appointment: Alexandra Carroll WPtel: [address] [place], [place] [id number] [place] FOLLOW UP 12/06/2017 Patient Education: Patient [...] : Z88.1 12/01/2017 Appointment: Vandana Crowe [address] [facility] FOLLOW UP 12/01/2017 Patient Education: Patient Medication [...] : L03.113 11/30/2017 Appointment: Vandana Crowe [address] [facility] 11/30/2017 Patient Education: Patient Medication [...] : L03.113 11/29/2017 [facility] [facility] 11/29/2017 Patient Education: [...] 682.3 ICD-10 : L03.113 11/28/2017 App[facility]ment: [facility] [facility] 11/28/2017 Patient Education: Patient Medication [...] M47.899 11/17/2017 Appointment: Alexandra Carroll WPtel: [id number] [place] MEDICATION REVIEW 11/17/2017 Patient Education: Patient Medication Summary Completed 11/17/2017 Care Plan: Referral Order SNOMED-CT : [id number] Pending 11/17/2017 Patient Education: Patient Medication Summary Completed 10/12/2017 Care Plan: MRI LUMBAR SPINE W/O DYE LOIN C : 32304-6 Pending 10/12/2017 Care Plan: X-RAY EXAM L-S SPINE 2/3 VWS LOINC : 20607-4 Pending 10/11/2017 Visit Diagnosis Plan: Other retention [...] pack to start tomorrow. [facility] to [facility] immediately with inversion table. instructed patient to go to ED immediately if she develops any incontinence with bowel or bladder. patient verbalized understanding. if no improvement, will need updated MRI and referral to surgeon. ICD-9 : 724.4 ICD-10 : M54.17 10/10/2017 Appointment: Vandana Crowe [address] [place], [place] [phone] ACUTE ILLNESS 10/10/2017 Patient Education: Patient Medication Summary Completed 10/10/2017 Appointment: Vandana Crowe [address] [place], [place] [phone] ACUTE ILLNESS 08/01/2017 Visit Diagnosis Plan: Other intervertebral disc degene ration, lumbar region Discussion: Core strengtheing and inversion table and if worsening will need updated MRI ICD-9 : 722.52 ICD-10 : M51.36 06/22/2017 Visit Diagnosis Plan: [facility] without abnormal findings Discussion: Lab dis ussed Follow Up: 6 months ICD-9 : V70.0 ICD-10 : Z00.00 06/22/2017 Appointment: Alexandra Carroll WPtel: [phone] Annual Well Visit 06/22/2017 Patient Education: Patient Medication Summary Completed 06/22/2017 Patient Education: Patient Medication Summary Completed 06/16/2017 Care Plan: COMPREHEN METABOLIC PANEL [place] : 72709-9 Pending 06/16/2017 Care Plan: ASSAY THYROID STIM HORMONE Pen ding 06/16/2017 Care Plan: ASSAY OF FREE THYROXINE Pendin g 06/16/2017 Care Plan: LIPID PANEL LOINC : 08452-1 Pending 06/16/2017 Care Plan: CBC Pending 06/16/2017 [...] Fluids... 03/28/2017 Appointment: Alexandra Carroll WPtel: [facility] ACUTE ILLNESS 03/28/2017 Patient Education: Patient Medication Summary Completed 03/28/2017 Visit Diagnosis Plan: Acute sinusitis, unspecified Dis cussion: cefdinir and medrol dose pack prescribed to be taken as directed. tylenol/ibuprofen as needed. educated on importance of taking singulair or zyrtec daily to prevent worsening symptoms. keep hydrated. ICD-9 : 461.9 ICD-10 : J01.90 02/16/2017 Appointment: Vandana Crowe [address] [place], [place] [id number] ACUTE ILLNESS 02/16/2017 Patient Education: Patient Medication Summary Completed 02/16/2017 Appointment: Alexandra Carroll WPtel: [address] [place] [address] [place] INJECTION 11/02/2016 Patient Education: Patient Medication Summary Completed 11/02/2016 Visit Diagnosis Plan: Pain in thoracic spine Discussio n: Increase flexeril to 10mg po BID Add Mobic 15mg po daily Towel stretch May see chiropractor to adjust ribs Notify if persists or worsening ICD-9 : 724.1 ICD-10 : M54.6 09/06/2016 Appointment: Alexandra Carroll WPtel: [address] [place] [address] ACUTE ILLNESS 09/06/2016 Patient Education: Patient Medication Summary Completed 09/06/2016 Visit Plan: Due to hx, ERx Cefdinir and Prednisone (discussed risks for both) Given bottle for nasal saline rinses Tylenol/Ibuprofen prn pain/fever Fluids/rest Discussed s/s of worsening, RTC if no improvement 08/16/2016 Appointment: Vidya Manuel WPtel: [address] [place] [address] ACUTE ILLNESS 08/16/2016 Patient Education: Patient Medication [...] F51.01 07/19/2016 Appointment: Alexandra Carroll [facility]Ptel[facility] 07/15 confirmed`sl FOLLOW UP 07/19/2016 Patient Education: [...] G47.33 07/06/2016 Appointment: Alexandra Carroll WPtel: [facility] 07/05 confirmed-sp FOLLOW UP [...] J30.1 06/15/2016 Appointment: Alexandra Carroll WPtel[facility] 06/14 lm ~sl ACUTE ILLNESS 06/15/2016 Patient Education: Patient Medication Summary Completed 06/15/2016 Visit Diagnosis Plan: Migraine, unspecif ied, not intractable, without status migrainosus Discussion: Injection as above Drink ple nty of water No driving x 6 hours Rest No OTC nsaids today Follow up PRN Refill called of claritin-d ICD-9 : 346.90 ICD-10 : G43.909 04/09/2016 Appointment: Nae Mckay [address] [place], [place] [id number] ACUTE ILLNESS 04/09/2016 Patient Education: Patient Medication [...] : E78.2 03/17/2016 Appointment: Alexandra Carroll WPtel: [address] [place], [place] [phone] 03/16 nvm~sl 03/17 confirmed`sl FOLLOW UP 0 03/17/2016 Patient Education: Patient Medication Summary Completed 03/17/2016 Appointment: Alexandra Carroll WPtel: [address] [place], [place] [phone] [place] 03/11 lm~sl 03/15lm `sl 03/15 confirmed`sl FOLLOW U P 03/15/2016 Visit Plan: Discussed labeled indication s for benzos. Since xanax is not labeled for sleep and she has never tried anything else, encouraged her to trial restoril(another benzo) since it is labeled for sleep. She agrees with this trial. Rx called to [facility] after cost comparison which is nearly the same robert. If working well, continue the h5olmev office visits. Call if not working well, and will restart xanax at for sleep. 11/13/2015 Appointment: Nae Mckay [address] [place], [place] [phone] 11/11 confirmed~sl FOLLOW UP 11/13/2015 Patient Education: Patient Medication Summary Completed 11/13/2015 Appointment: Alexandra Carroll WPtel: [address] [place], [place] [phone] Suture Removal 06/23/2015 Patient Education: Patient Medication Summary Completed 06/23/2015 Visit Plan: Removal of lesion above usin g 3-0 punch biopsy Return in 10 days for suture removal 06/12/2015 Appointment: Alexandra Carroll WPtel: [address] [place], [place] [phone] 06/10 lm ~sl ACUTE ILLNESS 06/12/2015 Patient Education: Patient Medication Summary Completed 06/12/2015 Referral: [facility] [place] [address] [place] Schedule patient around lunch time and 3 weeks from 04/22/2015 ~ Spoke with Kiesha at Dr[facility] and 04/24/15 and scheduled the patient ~sl 04/24/15 Patient is informed~ 06/03 Patient canceled the appointment ~ Patient did not show up for scheduled appointment-sp Appoint ment Requested 05/21/2015 Appointment: Alexandra Carroll WPtel: [address] [place], [place] [phone] UA 05/05/2015 Patient Education: Patient Medication Summary Completed 05/05/2015 Visit Plan: Starts PT today Schedule wit h Dr. Garcia for epidural CT abdomen/pelvis results discussed Sees [facility] TENDER in April and will get checked then 04/22/2015 Appointment: Alexandra Carroll WPtel: [address] [place], [place] [phone] 04/21 confirmed~lb ACUTE ILLNESS 04/22/2015 Patient Education: Patient Medication Summary Completed 04/22/2015 Referral: Lincoln Hernandez WPtel: [address] [place] [address] Referral Initiated 04/10/2015 Patient Education: Patient Medication Summary Completed 04/09/2015 Visit Plan: Start with lumosacral spine x-ray--will likely need MRI of L/S spine x-ray Needs urology--has had to have bladder stretched in past Tivorbex 03/24/2015 Appointment: Alexandra Carroll WPtel: [facility] 03/21/15 appt confirmed cn ACUTE ILLNESS 03/24 Patient Education: Patient Medication Summary Completed 03/24/2015 Visit Plan: Saline nasal flushes prn. Ty lenol/Motrin prn headache. Notify if persists/symptoms worsening. Cefuroxime to cover both sinuses and UTI Culture urine Check lab 02/27/2015 Appointment: Alexandra Carroll WPtel: [address] [place], [place] [phone] 02/26/15 vm to confirm and need new insu meri on file is inactive cn....02/27/15 appt confirmed cn ACUTE ILLNESS 015 Patient Education: Patient Medication Summary Completed 02/27/2015 Visit Plan: Lab discussed Stop simvastat in Check lipids in 6mos Continue all other meds at current dose Had Pap and Mammo 3 weeks ago 06/13/2014 Appointment: Alexandra Carroll WPtel: [address] [place], [place] [phone] Annual Well Visit 06/13/2014 Patient Education: Patient Medication Summary Completed 06/13/2014 Appointment: Shalini Walters WPtel: [address] [place], [place] [phone] ACUTE ILLNESS 04/18/2014 Patient Education: Patient Medication Summary Completed 04/18/2014 Visit Plan: Check lab in May then fwup Can try decreasing xanax to 1mg q HS with melatonin 5-10mg q HS 12/05/2013 Appointment: Alexandra Carroll WPtel: [address] [place], [place] [phone] 12/04 FOLLOW UP 12/05/2013 Patient Education: Patient Medication Summary Completed 12/05/2013 Appointment: Alexandra Carroll WPtel: [address] [place], [place] [phone] FOLLOW UP 06/05/2013 Patient Education: Patient Medication Summary Completed 06/05/2013 Appointment: Alexandra Carroll WPtel: [address] [place] [address] FOLLOW UP 05/22/2013 Patient Education: Patient Medication Summary Completed 05/22/2013 Visit Plan: Zovirax for 2wks Notify if p ain worsens or if persists 04/05/2013 Appointment: Alexandra Carroll WPtel: [address] [place] [address] ACUTE ILLNESS 04/05/2013 Patient Education: Patient Medication Summary Completed 04/05/2013 Visit Plan: Keep Wellbutrin at current d ose 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 03/26/2013 Appointment: Alexandra Carroll WPtel: [address] [place] [address] ACUTE ILLNESS 03/26/2013 Patient Education: Patient Medication Summary Completed 03/26/2013 Visit Plan: Continue citalopram at curre nt dose Increase xanax to 1-2mg q HS for sleep Add Wellbutrin Sr 100mg q AM Start Counseling 03/06/2013 Appointment: Alexandra Carroll WPtel: [address] [place] [address] ACUTE ILLNESS 03/06/2013 Patient Education: Patient Medication Summary Completed 03/06/2013 Appointment: Alexandra Carroll WPtel: [address] [place] [address] ACUTE ILLNESS 11/29/2012 Patient Education: Patient Medication Summary Completed 11/29/2012 Appointment: Alexandra Carroll WPtel: [address] [place] [address] ACUTE ILLNESS 09/26/2012 Patient Education: Patient Medication Summary Completed 09/26/2012 Appointment: Alexandra Carroll WPtel: [address] [place] [address] ACUTE ILLNESS 07/11/2012 Patient Education: Patient Medication Summary Completed 07/11/2012 Appointment: Alexandra Carroll WPtel: [address] [place], [place] [phone] [place] LAB 02/17/2012 Patient Education: Patient Medication Summary Completed 02/17/2012 Visit Plan: Check fasting lab Start annie y ca with Vit D Cont CPAP Mammo up-to-date Hemoccult card given 02/02/2012 Appointment: Alexandra Carroll WPtel: [address] [place] [address] PHYSICAL 02/02/2012 Patient Education: Patient Medication Summary Completed 02/02/2012 Appointment: Alexandra Carroll WPtel: [address] [place] [address] UA 08/27/2011 Patient Education: Patient Medication Summary Completed 08/27/2011 Visit Plan: Levaquin and Diflucan for 1w k Then cipro QOD for prophylaxis 08/17/2011 Appointment: Alexandra Carroll WPtel: [address] [place] [address] FOLLOW UP 08/17/2011 Patient Education: Patient Medication Summary Completed 08/17/2011 Appointment: Alexandra Carroll WPtel: [address] [place] [address] UA 12/28/2010 Patient Education: Patient Medication Summary Completed 12/28/2010 Appointment: Alexandra Carroll WPtel: [address] [place] [address] 11/09/2010 Patient Education: Patient Medication Summary Completed 11/09/2010 Appointment: Alexandra Carroll WPtel: [address] [place] [address] 10/29/2010 Patient Education: Patient Medication Summary Completed 10/29/2010 Appointment: Steph Bowen WPtel: [address] [place] [address] ACUTE ILLNESS 10/14/2010 Patient Education: Patient Medication Summary Completed 10/14/2010 Referral: Florian Baig WPtel: [facility] [address], [facility] 1 [id number] [place] Referral Initiated Referral: Paulo Albert WPtel: [phone] [id number] [place] Referral Appointment Requested Referral: Luis Enrique Jasso WPtel: [facility] [address], [facility] 1 [id number] [place] Referral Appointment Requested Referral: Florian Baig WPtel: [facility] [address] 1 [id number] [place] Referral Appointment Requested Referral: Caleb Glaser WPtel: [address] [id number] [place] Referral Appointment Requested Referral: Florian Baig WPtel: [facility] [address], [facility] 1 [id number] [place] Referral Initiated Referral: Florian Baig WPtel: [facility] [address], [facility] 1 [id number] [place] Referral Appointment Requested Instructions Comment . [...] same robert. If working well, continue the u7jusde office visits. Call if not working well, and will restart xanax at HS for sleep. . Removal of lesion above using 3-0 punc h biopsy Return in 10 days for suture removal . Starts PT today Schedule with Dr. Garcia for epidural CT abdomen/pelvis results discussed Sees [facility]ER in April and will get checked then [...]
--- OUTSIDE RECORDS SUMMARY | 2019-09-02 00:21 | XMS REPORT | CCD ---
Author Author Ilda Bowen APRN Organization [facility] Address [address] [place] [address] Phone Care Team Providers Care Hospital Education Coordinator Name Role Phone Alexandra Carroll D.O., PP Unavailable CCM Unavailable Summary Purpose Interface Exchange Insurance Providers Payer name Policy type / Coverage type Covered libertarian ID Effective Begin Date Effective End Date WPS MEDICARE PART B [place] Medicare Part B [id number] Unknown [employer] Medicare Part B [id number] Unknown Family History Family History data not found Social History Social History Element Codes Description Effective Dates Tobacco history SNOMED CT: 827112939 Nonsmoker 10/14/2010 Allergies, Adverse Reactions, Alerts Substance Reaction Codes Entered Date Inactivated Date Status MORPHINE SULFATE Unknown 10/14/2010 No Inactive Date Ac tive CEPHALOSPORINS rash Unknown 12/06/2017 No Inactive Date Acti ve SULFA (SULFONAMIDES) Unknown 10/14/2010 No Inactive Cruz e Active Clindamycin HCl Unknown 12/06/2017 No Inactive Date Act unique _ reaction, Unknown 06/13/2014 No Inactive Date Active DEMEROL Unknown 10/14/2010 No Inactive Date Active Problems Condition Codes Effective Dates Condition Status Allergic dermatitis ICD-9: 692.9 ICD-10: L23.9 06/26/2019 [...] unspecified ICD-9: 788.20 ICD-10: R33.9 02/26/2015 Active Urinary tract infection, site not specified ICD-9: 599 .0 ICD-10: N39.0 10/10/2017 Active Burn of third degree of back [...] Start Date Stop Date Status Fill Instructions prednisone 20 mg tablet RxNorm: 371348 1 Tablet(s) Oral two harlan es a day 06/26/2019 07/03/2019 Active Amabelz 1 mg-0.5 mg tablet RxNorm: 4086353 1 Tablet(s) Oral QD 05/30 No Stop Date Active Trazadone 150 mg Tablet RxNorm: 1 Tablet(s) Oral every n ight at bedtime 05/14/2019 No Stop Date Active Levaquin 500 mg tablet RxNorm: 237312 1 Tablet(s) Oral QD 05/14/2019 05/21/2019 Inactive Xanax 1 mg tablet RxNorm: 162960 1-2 Tablet(s) Oral e very night at bedtime as needed for sleep 05/03/2019 06/01/2019 Inactive Generic For:LAVELLE AX 1MG 10/11/2016 11:15:13 AM cyclobenzaprine 10 mg tablet RxNorm: 381657 1 Tablet(s) Oral three times a day as needed for muscle spasm 02/12/2019 02/12/2019 Inactive Xanax 1 mg tablet RxNorm: 167848 1-2 Tablet(s) Oral e very night at bedtime as needed for sleep 02/09/2019 03/10/2019 Inactive Generic For:LAVELLE AX 1MG 10/11/2016 11:15:13 AM Xanax 1 mg tablet RxNorm: 776068 1-2 Tablet(s) Oral e very night at bedtime as needed for sleep 01/22/2019 02/08/2019 Inactive Generic For:LAVELLE AX 1MG 10/11/2016 11:15:13 AM Celexa 40 mg tablet RxNorm: 883258 1 Tablet(s) Oral QD 01/17/2019 Active - First Attempt Ref: [id number] Xanax 1 mg tablet RxNorm: 409363 1 Tablet(s) Oral every night a t bedtime 01/08/2019 01/21/2019 Inactive levothyroxine 88 mcg tablet RxNorm: 936333 TAKE 1 TABLET BY NINA TH DAILY 12/19/2018 06/16/2019 Inactive - First Attempt Ref: [id number] Xanax 1 mg tablet RxNorm: 738687 1 Tablet(s) Oral every night a t bedtime 12/06/2018 01/05/2019 Inactive Singulair 10 mg tablet RxNorm: 595050 1 Tablet(s) Oral every ni ght at bedtime 11/23/2018 11/17/2019 Active - First Attempt Ref: [id number] Celexa 40 mg tablet RxNorm: 308595 1 Tablet(s) Oral 11/23/20182018 Inactive - First Attempt Ref: [id number] cyclobenzaprine 10 mg tablet RxNorm: 898507 1 Tablet(s) Oral three times a day as needed for muscle spasm 11/23/2018 02/11/2019 Inactive Xanax 1 mg tablet RxNorm: 377616 1 Tablet(s) PO QHS 11/06/20182018 Inactive Xanax 1 mg tablet RxNorm: 657561 1 Tablet(s) PO QHS 09/26/20182018 Inactive Singulair 10 mg tablet RxNorm: 007425 TAKE 1 TABLET BY MOUTH EVERY NIGHT AT BEDTIME 08/16/2018 11/22/2018 Inactive - First Attempt Ref: [id number] Xanax 1 mg tablet RxNorm: 950446 1 Tablet(s) PO QHS 08/01/20182018 Inactive levothyroxine 88 mcg tablet RxNorm: 050192 TAKE 1 TABLET BY NINA DAILY 07/31/2018 12/18/2018 Inactive - First Attempt Ref: [id number] Celexa 40 mg tablet RxNorm: 093047 TAKE 1 TABLET BY MOUTH DAILY 04/201811/22/2018 Inactive - First Attempt Ref: [id number] 54 bupropion HCl SR 100 mg tablet,12 hr sustained-release RxNor m: 860357 1 Tablet(s) PO BID 07/12/2018 07/06/2019 Active - Ref: [id number] 7 Claritin-D 24 Hour 10 mg-240 mg tablet,extended release RxNo rm: 2786249 1 Tablet(s) PO QD 06/29/2018 2018 Inactive Claritin-D 24 Hour 10 mg-240 mg tablet,extended release RxNo rm: 2745808 1 Tablet(s) PO QD 06/29/2018 2018 Inactive Xanax 1 mg tablet RxNorm: 829561 1-2 Tablet(s) PO QHS as needed for sleep 05/26/2018 06/23/2018 Inactive Generic For:XANAX 1M G 10/11/2016 11:15:13 AM Xanax 1 mg tablet RxNorm: 190796 1-2 Tablet(s) PO QHS as needed for sleep 03/28/2018 05/25/2018 Inactive Generic For:XANAX 1M G 10/11/2016 11:15:13 AM Macrobid 100 mg capsule RxNorm: 334867 1 Capsule(s) PO BID 03/27/1903/31/2018 Inactive gabapentin 300 mg capsule RxNorm: 201158 1 Capsule(s) PO QHS 201703/26/2018 Inactive Claritin-D 24 Hour 10 mg-240 mg tablet,extended release RxNo rm: 7576673 1 Tablet(s) PO QD 01/26/2018 02/24/2018 Inactive gabapentin 100 mg capsule RxNorm: 002097 1 Capsule(s) P O QHS for 1 week then 2 po q HS for 2 weeks then 3 po q HS 01/24/2018 03/26/2018 Inactive Xanax 1 mg tablet RxNorm: 675834 1-2 Tablet(s) PO QHS as needed for sleep 01/24/2018 03/24/2018 Inactive Generic For:XANAX 1M G 10/11/2016 11:15:13 AM prednisone 20 mg tablet RxNorm: 288317 1 Tablet(s) PO T ID for 3 days then 1 po BID for 3 days then one daily for 3 days 12/29/2017 03/26/2018 Inactiv e prednisone 20 mg tablet RxNorm: 223141 3 Tablet(s) PO T ID for 3 days then 1 po BID for 3 days then one daily for 3 days 12/29/2017 12/29/2017 Inactiv e Macrobid 100 mg capsule RxNorm: 574361 1 Capsule(s) PO BID 12/30/19 18 01/02/2018 Inactive Xanax 1 mg tablet RxNorm: 323467 1-2 Tablet(s) PO QHS as needed for sleep 12/28/2017 01/23/2018 Inactive Generic For:XANAX 1M G 10/11/2016 11:15:13 AM Medrol (Walter) 4 mg tablets in a dose pack RxNorm: 229074 Tablet(s) PO take as directed 12/01/2017 03/26/2018 Inactive Keflex 750 mg capsule RxNorm: 525439 1 Capsule(s) PO BID 12/01/2017 1 Inactive clindamycin HCl 300 mg capsule RxNorm: 317038 2 Capsule(s) PO TID 1 12/08/2017 Inactive Xanax 1 mg tablet RxNorm: 992117 1-2 Tablet(s) PO QHS as needed for sleep 11/28/2017 12/27/2017 Inactive Generic For:XANAX 1M G 10/11/2016 11:15:13 AM mupirocin 2 % topical ointment RxNorm: 156025 1 Application OTIC BI D 11/28/2017 08/09/2018 Inactive Xanax 1 mg tablet RxNorm: 187705 1-2 Tablet(s) PO QHS as needed for sleep 10/27/2017 11/25/2017 Inactive Generic For:XANAX 1M G 10/11/2016 11:15:13 AM Macrobid 100 mg capsule RxNorm: 257301 1 Capsule(s) PO BID 10/11/19 18 10/16/2017 Inactive Medrol (Walter) 4 mg tablets in a dose pack RxNorm: 569223 Tablet(s) PO take as directed 10/10/2017 11/16/2017 Inactive Xanax 1 mg tablet RxNorm: 180089 1-2 Tablet(s) PO QHS as needed for sleep 09/28/2017 10/26/2017 Inactive Generic For:XANAX 1M G 10/11/2016 11:15:13 AM Xanax 1 mg tablet RxNorm: 572604 1-2 Tablet(s) PO QHS as needed for sleep 08/30/2017 09/27/2017 Inactive Generic For:XANAX 1M G 10/11/2016 11:15:13 AM Xanax 1 mg tablet RxNorm: 498210 1-2 Tablet(s) PO QHS as needed for sleep 08/30/2017 08/29/2017 Inactive Generic For:XANAX 1M G 10/11/2016 11:15:13 AM Xanax 1 mg tablet RxNorm: 544657 1-2 Tablet(s) PO QHS as needed for sleep 08/01/2017 08/29/2017 Inactive Generic For:XANAX 1M G 10/11/2016 11:15:13 AM Xanax 1 mg tablet RxNorm: 625142 1-2 Tablet(s) PO QHS as needed for sleep 06/29/2017 2017 Inactive Generic For:XANAX 1M G 10/11/2016 11:15:13 AM Claritin-D 24 Hour 10 mg-240 mg tablet,extended release RxNo rm: 1073429 1 Tablet(s) PO QD 06/29/2017 2017 Inactive levothyroxine 88 mcg tablet RxNorm: 003447 1 Tablet(s) PO QD 201709/10/2017 Inactive Xanax 1 mg tablet RxNorm: 073257 1-2 Tablet(s) PO QHS as needed for sleep 05/26/2017 06/28/2017 Inactive Generic For:XANAX 1M G 10/11/2016 11:15:13 AM Claritin-D 24 Hour 10 mg-240 mg tablet,extended release RxNo rm: 6420147 1 Tablet(s) PO QD 05/26/2017 06/24/2017 Inactive bupropion HCl SR 100 mg tablet,12 hr sustained-release RxNor m: 961680 Tablet(s) Take 1 tablet by mouth two times daily 04/06/2017 12/31/2017 Inactive - Ref: [id number] Xanax 1 mg tablet RxNorm: 524999 1-2 Tablet(s) PO QHS as needed for sleep 03/24/2017 05/22/2017 Inactive Generic For:XANAX 1M G 10/11/2016 11:15:13 AM Medrol (Walter) 4 mg tablets in a dose pack RxNorm: 985739 Tablet(s) P O 02/16/2017 03/27/2017 Inactive Xanax 1 mg tablet RxNorm: 865889 Tablet(s) TAKE ONE T O TWO TABLETS BY MOUTH AT BEDTIME NEEDED 02/16/2017 03/17/2017 Inactive Generic For:XA NAX 1MG 10/11/2016 11:15:13 AM Claritin-D 24 Hour 10 mg-240 mg tablet,extended release RxNo rm: 9891287 1 Tablet(s) PO QD 02/16/2017 04/16/2017 Inactive cefdinir 300 mg capsule RxNorm: 235517 2 Capsule(s) PO QD 02/16/2017 02/25/2017 Inactive Celexa 40 mg tablet RxNorm: 366867 Tablet(s) Take 1 tablet by m outh daily 12/23/2016 09/18/2017 Inactive - Ref: [id number] Xanax 1 mg tablet RxNorm: 238387 Tablet(s) TAKE ONE T O TWO TABLETS BY MOUTH AT BEDTIME NEEDED 12/16/2016 01/14/2017 Inactive Generic For:XA NAX 1MG 10/11/2016 11:15:13 AM Xanax 1 mg tablet RxNorm: 075967 Tablet(s) TAKE ONE T O TWO TABLETS BY MOUTH AT BEDTIME NEEDED 11/18/2016 12/15/2016 Inactive Generic For:XA NAX 1MG 10/11/2016 11:15:13 AM Xanax 1 mg tablet RxNorm: 846243 TAKE ONE TO TWO TABL ETS BY MOUTH AT BEDTIME NEEDED 10/11/2016 11/17/2016 Inactive Generic For:XANA X 1MG 10/11/2016 11:15:13 AM Mobic 15 mg tablet RxNorm: 170961 1 Tablet(s) PO QD 09/06/20162016 Inactive Claritin-D 24 Hour 10 mg-240 mg tablet,extended release RxNo rm: 7992949 1 Tablet(s) PO QD 09/02/2016 11/30/2016 Inactive prednisone 20 mg tablet RxNorm: 371580 1 Tablet(s) PO T ID for 3 days then 1 po BID for 3 days then one daily for 3 days 08/16/2016 03/27/2017 Inactiv e cefdinir 300 mg capsule RxNorm: 460560 2 Capsule(s) PO QD 08/16/2016 09/05/2016 Inactive Xanax 1 mg tablet RxNorm: 342502 TAKE ONE TO TWO TABL ETS BY MOUTH AT BEDTIME NEEDED 08/05/2016 10/11/2016 Inactive Generic For:XANA X 1MG 08/05/2016 2:27:03 PM08/04/2016 4:15:22 PM Singulair 10 mg tablet RxNorm: 276152 1 Tablet(s) PO QHS 07/06/2016 0 09/03/2016 Inactive prednisone 20 mg tablet RxNorm: 612960 1 Tablet(s) PO T ID for 3 days then 1 po BID for 3 days then one daily for 3 days 06/15/2016 07/05/2016 Inactiv e Singulair 10 mg tablet RxNorm: 439198 1 Tablet(s) PO QHS 06/15/2016 0 07/05/2016 Inactive cefdinir 300 mg capsule RxNorm: 513721 2 Capsule(s) PO QD 06/15/2016 07/05/2016 Inactive Xanax 1 mg tablet RxNorm: 277957 1-2 Tablet(s) PO QHS 05/21/201610/2016 Inactive Claritin-D 24 Hour 10 mg-240 mg tablet,extended release RxNo rm: 5397168 1 Tablet(s) PO QD 04/09/2016 07/07/2016 Inactive Xanax 1 mg tablet RxNorm: 271867 1-2 Tablet(s) PO QHS 03/23/201604/29 Inactive levothyroxine 88 mcg tablet RxNorm: 065093 1 Tablet(s) PO QD 201606/13/2017 Inactive bupropion HCl SR 100 mg tablet,sustained-release RxNorm: 993 503 Take 1 tablet by mouth two times daily 03/15/2016 12/09/2016 Inactive - Ref: 20 8537567 Celexa 40 mg tablet RxNorm: 760347 Take 1 tablet by mouth daily 12/23/2016 Inactive - Ref: [id number] Xanax 1 mg tablet RxNorm: 157444 1-2 Tablet(s) PO QHS 02/17/201603/01 Inactive levothyroxine 88 mcg tablet RxNorm: 174450 1 Tablet(s) PO QD 201502/22/2016 Inactive Xanax 1 mg tablet RxNorm: 751532 1-2 Tablet(s) PO QHS 11/25/201511/29 Inactive levothyroxine 88 mcg tablet RxNorm: 759593 1 Tablet(s) PO QD 201511/24/2015 Inactive temazepam 30 mg capsule RxNorm: 746866 1 Capsule(s) PO QHS 11/13/19 16 11/24/2015 Inactive Xanax 1 mg tablet RxNorm: 651714 1-2 Tablet(s) PO QHS 09/15/201510/29 Inactive Celexa 40 mg tablet RxNorm: 423240 1 Tablet(s) PO QD 1 Tablet(s ) PO QD 09/10/2015 09/16/2015 Inactive bupropion HCl SR 100 mg tablet,sustained-release RxNorm: 993 503 1 Tablet(s) PO BID 09/10/2015 09/23/2015 Inactive Xanax 1 mg tablet RxNorm: 520396 1-2 Tablet(s) PO QHS 09/10/201508/28 Inactive Xanax 1 mg tablet RxNorm: 837990 1-2 Tablet(s) PO QHS 08/11/201508/28 Inactive cyclobenzaprine 10 mg tablet RxNorm: 364625 1 Tablet(s) PO TID prn spasm 07/09/2015 11/23/2018 Inactive Celexa 40 mg tablet RxNorm: 972977 1 Tablet(s) PO QD 06/06/201508/03 Inactive Xanax 1 mg tablet RxNorm: 769926 1-2 Tablet(s) PO QHS 06/04/201505/2015 Inactive levothyroxine 88 mcg tablet RxNorm: 120716 1 Tablet(s) PO QD 201511/23/2015 Inactive Ceftin 500 mg tablet RxNorm: 097861 1 Tablet(s) PO BID 05/05/2015 Inactive Ceftin 500 mg tablet RxNorm: 983295 1 Tablet(s) PO BID 05/05/201507/2015 Inactive meloxicam 15 mg tablet RxNorm: 690780 1 Tablet(s) PO QD 04/16/2015 Inactive meloxicam 15 mg tablet RxNorm: 161901 1 Tablet(s) PO QD 04/16/2015 Inactive diclofenac sodium 75 mg tablet,delayed release RxNorm: 44924 6 1 Tablet(s) PO BID 04/04/2015 04/15/2015 Inactive diclofenac sodium 75 mg tablet,delayed release RxNorm: 96037 6 1 Tablet(s) PO BID 04/04/2015 04/03/2015 Inactive Tivorbex 40 mg capsule RxNorm: 4986816 1 Capsule(s) PO TID 03/24/1904/02/2015 Inactive bupropion HCl SR 100 mg tablet,sustained-release RxNorm: 993 503 1 Tablet(s) PO BID 03/11/2015 09/06/2015 Inactive cyclobenzaprine 10 mg tablet RxNorm: 966707 1 Tablet(s) PO TID prn spasm 03/11/2015 07/08/2015 Inactive levothyroxine 88 mcg tablet RxNorm: 250281 1 Tablet(s) PO QD 201405/27/2015 Inactive Claritin-D 24 Hour 10 mg-240 mg tablet,extended release RxNo rm: 1514545 1 Tablet(s) PO QD 02/27/2015 05/27/2015 Inactive cefuroxime axetil 500 mg tablet RxNorm: 562248 1 Tablet(s) PO BID 1 03/12/2015 Inactive Celexa 40 mg tablet RxNorm: 549325 1 Tablet(s) PO QD 02/05/201504/05 Inactive levothyroxine 75 mcg tablet RxNorm: 176362 1 Tablet(s) PO QD 201402/26/2015 Inactive Celexa 40 mg tablet RxNorm: 047985 1 Tablet(s) PO QD 10/09/201402/04 Inactive Activella 1 mg-0.5 mg tablet RxNorm: 7927241 1 Tablet(s) PO QD 08/2802/26/2015 Inactive bupropion HCl SR 100 mg tablet,sustained-release RxNorm: 993 503 1 Tablet(s) PO BID 09/12/2014 03/10/2015 Inactive levothyroxine 75 mcg tablet RxNorm: 058852 1 Tablet(s) PO QD 201412/09/2014 Inactive levothyroxine 75 mcg tablet RxNorm: 884486 1 Tablet(s) PO QD 201409/11/2014 Inactive Celexa 40 mg tablet RxNorm: 793669 1 Tablet(s) PO QD 08/12/201410/08 Inactive Xanax 1 mg tablet RxNorm: 747754 1-2 Tablet(s) PO QHS 08/12/201409/28 Inactive Claritin-D 24 Hour 10 mg-240 mg tablet,extended release RxNo rm: 5043717 1 Tablet(s) PO QD 06/13/2014 09/10/2014 Inactive cyclobenzaprine 10 mg tablet RxNorm: 808680 1 Tablet(s) PO TID prn spasm 06/12/2014 02/26/2015 Inactive Xanax 1 mg tablet RxNorm: 095088 1-2 Tablet(s) PO QHS 05/09/201406/28 Inactive levothyroxine 75 mcg tablet RxNorm: 693137 1 Tablet(s) PO QD 201407/08/2014 Inactive cephalexin 500 mg capsule RxNorm: 313015 1 Capsule(s) PO QOD 201402/26/2015 Inactive simvastatin 10 mg tablet RxNorm: 254549 1 Tablet(s) PO QHS 04/10/19 15 06/12/2014 Inactive Xanax 1 mg tablet RxNorm: 024502 1-2 Tablet(s) PO QHS 04/10/201404/28 Inactive levothyroxine 75 mcg tablet RxNorm: 587941 1 Tablet(s) PO QD 201404/09/2014 Inactive levothyroxine 75 mcg capsule RxNorm: 183426 1 Capsule(s) PO QD 03/3104/10/2014 Inactive Activella 1 mg-0.5 mg tablet RxNorm: 5893277 1 Tablet(s) PO QD 03/0109/11/2014 Inactive bupropion HCl SR 100 mg tablet,sustained-release RxNorm: 993 503 1 Tablet(s) PO BID 03/04/2014 08/30/2014 Inactive Activella 1 mg-0.5 mg tablet RxNorm: 6883512 1 Tablet(s) PO QD 01/2803/18/2014 Inactive levothyroxine 75 mcg capsule RxNorm: 244659 1 Capsule(s) PO QD 12/2904/08/2014 Inactive simvastatin 10 mg tablet RxNorm: 512531 1 Tablet(s) PO QHS 01/10/20 14 04/08/2014 Inactive cyclobenzaprine 10 mg tablet RxNorm: 537718 1 Tablet(s) PO TID prn spasm 01/09/2014 04/08/2014 Inactive Cipro 500 mg tablet RxNorm: 829047 1 Tablet(s) PO BID 12/25/201304/2013 Inactive Cipro 500 mg tablet RxNorm: 105822 1 Tablet(s) PO BID 12/25/201311/29 Inactive bupropion HCl SR 100 mg tablet,sustained-release RxNorm: 993 503 1 Tablet(s) PO QAM 12/11/2013 03/03/2014 Inactive cephalexin 500 mg capsule RxNorm: 996356 1 Capsule(s) PO QOD 201304/09/2014 Inactive Xanax 1 mg tablet RxNorm: 668233 1-2 Tablet(s) PO QHS 10/15/201310/29 Inactive simvastatin 10 mg tablet RxNorm: 657313 1 Tablet(s) PO QHS 10/11/19 14 01/07/2014 Inactive Celexa 40 mg tablet RxNorm: 840544 Tablet(s) PO TAKE 1 TABLET BY MOUTH ONCE DAILY. 09/18/2013 09/17/2013 Inactive Xanax 1 mg tablet RxNorm: 759659 1-2 Tablet(s) PO QHS 08/13/201308/28 Inactive simvastatin 10 mg tablet RxNorm: 536524 1 Tablet(s) PO QHS 07/12/19 14 10/08/2013 Inactive bupropion HCl SR 100 mg tablet,sustained-release RxNorm: 993 503 1 Tablet(s) PO QAM 05/22/2013 11/17/2013 Inactive Pamelor 10 mg capsule RxNorm: 621239 1 Capsule(s) PO QHS for PLATA /sleep 05/22/2013 06/04/2013 Inactive Xanax 1 mg tablet RxNorm: 960432 1-2 Tablet(s) PO QHS 05/15/201305/29 Inactive Pamelor 10 mg capsule RxNorm: 918060 1 Capsule(s) PO QHS for PLATA /sleep 05/15/2013 05/21/2013 Inactive Xanax 1 mg tablet RxNorm: 231862 1 Tablet(s) PO QHS 04/27/20132013 Inactive Zovirax 800 mg tablet RxNorm: 950714 1 Tablet(s) PO TID 04/05/2013 Inactive Xanax 1 mg tablet RxNorm: 934317 1 Tablet(s) PO QHS 04/03/2013 No Sto p Date Active bupropion HCl SR 100 mg tablet,sustained-release RxNorm: 993 503 1 Tablet(s) PO QAM 03/26/2013 05/21/2013 Inactive bupropion HCl SR 100 mg tablet,sustained-release RxNorm: 993 503 1 Tablet(s) PO QAM 03/06/2013 03/25/2013 Inactive Pamelor 10 mg capsule RxNorm: 500712 1 Capsule(s) PO QHS for PLATA /sleep 02/14/2013 05/14/2013 Inactive levothyroxine 75 mcg capsule RxNorm: 867522 1 Capsule(s) PO QD 12/2901/08/2014 Inactive simvastatin 10 mg tablet RxNorm: 959068 1 Tablet(s) PO QHS TAKE 1 TABLET BY MOUTH ONCE DAILY AT BEDTIME. 01/15/2013 07/10/2013 Inactive cyclobenzaprine 10 mg tablet RxNorm: 035935 1 Tablet(s) PO TID prn spasm 12/25/2012 06/22/2013 Inactive Pamelor 10 mg capsule RxNorm: 182854 1 Capsule(s) PO QHS for PLATA /sleep 11/29/2012 02/14/2013 Inactive Celexa 40 mg tablet RxNorm: 206808 Tablet(s) PO TAKE 1 TABLET BY MOUTH ONCE DAILY. 10/11/2012 09/17/2013 Inactive simvastatin 10 mg tablet RxNorm: 480220 Tablet(s) PO TA KE 1 TABLET BY MOUTH ONCE DAILY AT BEDTIME. 10/11/2012 01/14/2013 Inactive simvastatin 10 mg tablet RxNorm: 332016 1 Tablet(s) PO QD 07/11/2012 10/08/2012 Inactive simvastatin 10 mg tablet RxNorm: 999169 1 Tablet(s) PO QD 04/14/2012 07/11/2012 Inactive simvastatin 10 mg tablet RxNorm: 488793 1 Tablet(s) PO QD 04/14/2012 04/13/2012 Inactive Celexa 40 mg tablet RxNorm: 058610 1 Tablet(s) PO QD 03/15/201209/10 Inactive cyclobenzaprine 10 mg tablet RxNorm: 013070 1 Tablet(s) PO TID prn spasm 02/02/2012 02/01/2012 Inactive cyclobenzaprine 10 mg tablet RxNorm: 984351 1 Tablet(s) PO TID prn spasm 02/02/2012 07/30/2012 Inactive Diflucan 100 mg Tab RxNorm: 414456 1 Tablet(s) PO QD 08/17/201108/22 Inactive Cipro 250 mg Tab RxNorm: 234772 1 Tablet(s) PO QD 08/17/2011 10/15/19 12 Inactive Levaquin 500 mg Tab RxNorm: 873646 1 Tablet(s) PO QD 08/17/201108/22 Inactive Pyridium 200 mg Tab RxNorm: 6953782 1 Tablet(s) PO TID 10/14/2010 Inactive may turn urine orange-red color. Cipro 500 mg Tab RxNorm: 521535 1 Tablet(s) PO BID 10/14/2010 011 Inactive levothyroxine 75 mcg capsule RxNorm: 911441 1 Capsule(s) PO QD 12/3001/14/2011 Inactive Vitamin D3 5,000 unit tablet RxNorm: 223233 1 Tablet(s) PO QD No Star t Date Active Nasacort 55 mcg nasal spray aerosol RxNorm: 1869701 2 Sp ray NASAL each nostril QHS No Start Date Active cyclobenzaprine 10 mg tablet RxNorm: 229949 1 Tablet(s) PO TID as needed No Start Date 11/22/2018 Inactive Vitamin D2 1,000 unit capsule RxNorm: 418845 3 Capsule(s) PO QD No Start Date 11/16/2017 Inactive diclofenac sodium 75 mg tablet,delayed release RxNorm: 15545 6 1 Tablet(s) PO BID No Start Date 03/16/2016 Inactive cephalexin 500 mg capsule RxNorm: 679927 1 Capsule(s) PO QOD No Sta rt Date 12/04/2013 Inactive cyclobenzaprine 10 mg tablet RxNorm: 777256 1 Tablet(s) PO QHS No S tart Date 02/01/2012 Inactive loratadine 10 mg tablet RxNorm: 420458 1 Tablet(s) PO QHS No Start Date 05/14/2019 Inactive hydrocodone 5 mg-acetaminophen 500 mg tablet RxNorm: 344513 1 -2 Tablet(s) PO Q6H as needed No Start Date 08/09/2018 Inactive etodolac 400 mg tablet RxNorm: 392851 1 Tablet(s) PO TID No Start D ate 09/17/2018 Inactive Xanax 1 mg tablet RxNorm: 281964 1 Tablet(s) PO QHS No Start Date 04/2013 Inactive Vitamin D3 1,000 unit capsule RxNorm: 816656 1 Capsule(s) PO QD No Start Date 06/12/2014 Inactive estradiol 2 mg tablet RxNorm: 259811 1/2 Tablet(s) PO QD No Start D ate 03/05/2013 Inactive Celexa 40 mg tablet RxNorm: 176757 1 Tablet(s) PO QD No Start Date Inactive Activella 1 mg-0.5 mg tablet RxNorm: 4370732 1 Tablet(s) PO QD No S tart Date 07/10/2012 Inactive medroxyprogesterone 5 mg tablet RxNorm: 9584893 1/2 Tablet(s) PO QD No Start Date 03/05/2013 Inactive levothyroxine 88 mcg tablet RxNorm: 274610 1 Tablet(s) PO QD No Sta rt Date 02/26/2015 Inactive Keflex 500 mg capsule RxNorm: 625003 1 Capsule(s) PO PRN No Start D ate 08/16/2011 Inactive Activella 1 mg-0.5 mg tablet RxNorm: 4029577 1 Tablet(s) PO QHS No Start Date 03/27/2017 Inactive Activella 1 mg-0.5 mg tablet RxNorm: 7274632 1 Tablet(s) PO QD No S tart Date 02/06/2014 Inactive Flexeril 10 mg Tab RxNorm: 082235 1 Tablet(s) PO TID No Start Date Inactive prn spasm simvastatin 10 mg tablet RxNorm: 092402 1 Tablet(s) PO QD No Start Date 04/13/2012 Inactive Medication Administered No Medication Administered data Immunizations Vaccine Codes Date Status Influenza CVX: 135 01/16/2019 Complete Pneumococcal CVX: 133 01/16/2019 Complete Results No Results data Procedures Procedure Codes Date DEXAMETHASONE SODIUM PHOS CPT-4: J1100 05/14/2019 THER/PROPH/DIAG INJ SC/IM CPT-4: 40658 05/14/2019 TRIAMCINOLONE ACET INJ NOS CPT-4: J3301 05/14/2019 FLU VACC PRSV FREE INC ANTIG 65 AND OLDER CPT-4: 14674 01/16/2019 FLU VACC PRSV FREE INC ANTIG 65 AND OLDER CPT-4: 10877 01/16/2019 PNEUMOCOCCAL VACC 13 NARESH IM CPT-4: 28577 01/16/2019 SKIN FUNGI CULTURE CPT-4: 32325 01/16/2019 IMMUNIZATION ADMIN CPT-4: 40158 01/16/2019 IMMUNIZATION ADMIN EACH ADD CPT-4: 76766 01/16/2019 THER/PROPH/DIAG INJ SC/IM CPT-4: 40153 01/17/2018 KETOROLAC TROMETHAMINE INJ CPT-4: J1885 01/17/2018 THER/PROPH/DIAG INJ SC/IM CPT-4: 06414 01/17/2018 PROMETHAZINE HCL INJECTION CPT-4: J2550 01/17/2018 URINALYSIS NONAUTO W/O SCOPE CPT-4: 10267 12/29/2017 URINE CULTURE/ COLONY COUNT CPT-4: 64899 12/29/2017 THER/PROPH/DIAG INJ SC/IM CPT-4: 84274 11/30/2017 TRIAMCINOLONE ACET INJ NOS CPT-4: J3301 11/30/2017 DEXAMETHASONE SODIUM PHOS CPT-4: J1100 11/30/2017 CEFTRIAXONE SODIUM INJECTION CPT-4: J0696 11/29/2017 THER/PROPH/DIAG INJ SC/IM CPT-4: 72572 11/29/2017 CEFTRIAXONE SODIUM INJECTION CPT-4: J0696 11/28/2017 THER/PROPH/DIAG INJ SC/IM CPT-4: 29171 11/28/2017 URINALYSIS NONAUTO W/O SCOPE CPT-4: 68215 10/10/2017 THER/PROPH/DIAG INJ SC/IM CPT-4: 39979 10/10/2017 TRIAMCINOLONE ACET INJ NOS CPT-4: J3301 10/10/2017 DEXAMETHASONE SODIUM PHOS CPT-4: J1100 10/10/2017 CEFTRIAXONE SODIUM INJECTION CPT-4: J0696 10/10/2017 THER/PROPH/DIAG INJ SC/IM CPT-4: 07981 10/10/2017 URINE CULTURE/ COLONY COUNT CPT-4: 30475 10/10/2017 THER/PROPH/DIAG INJ SC/IM CPT-4: 23223 11/02/2016 KETOROLAC TROMETHAMINE INJ CPT-4: J1885 11/02/2016 THER/PROPH/DIAG INJ SC/IM CPT-4: 72555 06/15/2016 TRIAMCINOLONE ACET INJ NOS CPT-4: J3301 06/15/2016 DEXAMETHASONE SODIUM PHOS CPT-4: J1100 06/15/2016 THER/PROPH/DIAG INJ SC/IM CPT-4: 95553 04/09/2016 KETOROLAC TROMETHAMINE INJ CPT-4: J1885 04/09/2016 PROMETHAZINE HCL INJECTION CPT-4: J2550 04/09/2016 EXC TR-EXT B9+ERASMO 0.5 CM< CPT-4: 96295 06/12/2015 URINALYSIS NONAUTO W/O SCOPE CPT-4: 35270 05/05/2015 URINE CULTURE/ COLONY COUNT CPT-4: 68840 05/05/2015 URINALYSIS NONAUTO W/O SCOPE CPT-4: 03061 03/24/2015 URINALYSIS NONAUTO W/O SCOPE CPT-4: 27650 02/27/2015 URINE CULTURE/ COLONY COUNT CPT-4: 03202 02/27/2015 THER/PROPH/DIAG INJ SC/IM CPT-4: 68724 04/18/2014 KETOROLAC TROMETHAMINE INJ CPT-4: J1885 04/18/2014 THER/PROPH/DIAG INJ SC/IM CPT-4: 29869 06/05/2013 TRIAMCINOLONE ACET INJ NOS CPT-4: J3301 06/05/2013 THER/PROPH/DIAG INJ SC/IM CPT-4: 34921 11/29/2012 KETOROLAC TROMETHAMINE INJ CPT-4: J1885 11/29/2012 URINALYSIS NONAUTO W/O SCOPE CPT-4: 32084 07/11/2012 URINE CULTURE/ COLONY COUNT CPT-4: 04116 07/11/2012 OCCULT BLOOD FECES CPT-4: 35858 02/17/2012 URINALYSIS NONAUTO W/O SCOPE CPT-4: 73099 08/27/2011 URINE CULTURE/ COLONY COUNT CPT-4: 73666 08/27/2011 URINALYSIS NONAUTO W/O SCOPE CPT-4: 22417 08/17/2011 URINE CULTURE/ COLONY COUNT CPT-4: 42646 08/17/2011 URINALYSIS NONAUTO W/O SCOPE CPT-4: 49635 12/28/2010 URINE CULTURE/ COLONY COUNT CPT-4: 49073 12/28/2010 URINALYSIS NONAUTO W/O SCOPE CPT-4: 92263 11/09/2010 URINE CULTURE/ COLONY COUNT CPT-4: 67422 11/09/2010 URINALYSIS NONAUTO W/O SCOPE CPT-4: 16760 10/29/2010 URINE CULTURE/ COLONY COUNT CPT-4: 21387 10/29/2010 URINE CULTURE/ COLONY COUNT CPT-4: 63529 10/14/2010 URINALYSIS NONAUTO W/O SCOPE CPT-4: 15311 10/14/2010 Vital Signs Date Vital 06/26/2019 Blood Pressure 1: 126/73 Code: 8480-6 [...] 1: 122/74 Code: 8480-6 BMI: 22.0 Code: 82075-2 Heart Rate 1: 72 bpm Height: 5'3" [...] 1: 126/72 Code: 8480-6 BMI: 22.7 Code: 82494-9 Heart Rate 1: 72 bpm Height: 5'3" [...] 1: 112/70 Code: 8480-6 BMI: 22.0 Code: 49999-5 Heart Rate 1: 80 bpm Height: 5'3" [...] 1: 122/64 Code: 8480-6 BMI: 21.4 Code: 00927-4 Heart Rate 1: 88 bpm Height: 5'3" Respiratory Rate: 22 bpm SpO2: 96% Tempera ture: 36.8 (C) / 98.2 (F) Weight: 121 lbs 06/22/2017 Blood Pressure 1: 124/78 Code: 8480-6 BMI: 21.6 Code: 37313-1 Heart Rate 1: 76 bpm Height: 5'3" Respiratory Rate: 20 bpm Temperature: 36 .8 (C) / 98.3 (F) Weight: 122 lbs 03/28/2017 Blood Pressure 1: 92/60 Code: 8480-6 BMI: 20.4 C ode: 35183-0 Heart Rate 1: 72 bpm Height: 5'3" Respiratory Rate: 20 bpm Temperature: 36 .9 (C) / 98.4 (F) Weight: 115 lbs 02/16/2017 Blood Pressure 1: 106/70 Code: 8480-6 BMI: 21.3 Code: 37256-7 Heart Rate 1: 82 bpm Height: 5'3" Respiratory Rate: 22 bpm SpO2: 97% Tempera ture: 36.1 (C) / 97.0 (F) Weight: 120 lbs 09/06/2016 Blood Pressure 1: 118/64 Code: 8480-6 BMI: 22.7 Code: 01904-8 Heart Rate 1: 78 bpm Height: 5'3" Respiratory Rate: 20 bpm SpO2: 98% Tempera ture: 36.2 (C) / 97.2 (F) Weight: 128 lbs 08/16/2016 Blood Pressure 1: 118/78 Code: 8480-6 BMI: 22.1 Code: 34491-1 Heart Rate 1: 78 bpm Height: 5'3" Respiratory Rate: 20 bpm SpO2: 97% Tempera ture: 36.2 (C) / 97.1 (F) Weight: 125 lbs 07/19/2016 Blood Pressure 1: 116/68 Code: 8480-6 BMI: 22.5 Code: 81092-9 Heart Rate 1: 76 bpm Height: 5'3" Respiratory Rate: 20 bpm Temperature: 36 .8 (C) / 98.2 (F) Weight: 127 lbs 07/06/2016 Blood Pressure 1: 106/70 Code: 8480-6 BMI: 22.5 Code: 94364-8 Heart Rate 1: 72 bpm Height: 5'3" Respiratory Rate: 20 bpm SpO2: 97% Tempera ture: 36.8 (C) / 98.2 (F) Weight: 127 lbs 06/15/2016 Blood Pressure 1: 136/76 Code: 8480-6 BMI: 22.9 Code: 01053-5 Heart Rate 1: 74 bpm Height: 5'3" Respiratory Rate: 18 bpm SpO2: 98% Tempera ture: 36.4 (C) / 97.6 (F) Weight: 129 lbs 04/09/2016 Blood Pressure 1: 124/78 Code: 8480-6 BMI: 23.0 Code: 81881-6 Heart Rate 1: 86 bpm Height: 5'3" Respiratory Rate: 20 bpm SpO2: 96% Tempera ture: 36.5 (C) / 97.7 (F) Weight: 130 lbs 03/17/2016 Blood Pressure 1: 116/74 Code: 8480-6 BMI: 23.4 Code: 01616-8 Heart Rate 1: 84 bpm Height: 5'3" Respiratory Rate: 20 bpm SpO2: 97% Tempera ture: 36.8 (C) / 98.3 (F) Weight: 132 lbs 11/13/2015 Blood Pressure 1: 124/78 Code: 8480-6 BMI: 23.4 Code: 80135-9 Heart Rate 1: 88 bpm Height: 5'3" Respiratory Rate: 24 bpm SpO2: 98% Tempera ture: 36.8 (C) / 98.2 (F) Weight: 132 lbs 06/12/2015 Blood Pressure 1: 126/78 Code: 8480-6 BMI: 23.6 Code: 72612-2 Heart Rate 1: 80 bpm Height: 5'3" Respiratory Rate: 20 bpm Temperature: 36 .9 (C) / 98.4 (F) Weight: 133 lbs 04/22/2015 Blood Pressure 1: 126/68 Code: 8480-6 BMI: 23.6 Code: 04569-9 Heart Rate 1: 80 bpm Height: 5'3" Respiratory Rate: 20 bpm Temperature: 36 .6 (C) / 97.9 (F) Weight: 133 lbs 03/24/2015 Blood Pressure 1: 116/66 Code: 8480-6 BMI: 22.9 Code: 58813-9 Heart Rate 1: 74 bpm Height: 5'3" Respiratory Rate: 20 bpm Temperature: 36 .4 (C) / 97.6 (F) Weight: 129 lbs 02/27/2015 Blood Pressure 1: 106/64 Code: 8480-6 BMI: 22.7 Code: 52426-0 Heart Rate 1: 74 bpm Height: 5'3" Respiratory Rate: 20 bpm Temperature: 36 .8 (C) / 98.2 (F) Weight: 128 lbs 06/13/2014 Blood Pressure 1: 104/66 Code: 8480-6 BMI: 22.7 Code: 05543-2 Heart Rate 1: 84 bpm Height: 5'3" Respiratory Rate: 20 bpm Temperature: 37 .0 (C) / 98.6 (F) Weight: 128 lbs 04/18/2014 Blood Pressure 1: 112/62 Code: 8480-6 BMI: 22.0 Code: 48657-5 Heart Rate 1: 82 bpm Height: 5'3" Respiratory Rate: 18 bpm Temperature: 36 .4 (C) / 97.6 (F) Weight: 124 lbs 12/05/2013 Blood Pressure 1: 106/70 Code: 8480-6 BMI: 23.7 Code: 94670-2 Heart Rate 1: 84 bpm Height: 5'3" [...] 1: 126/88 Code: 8480-6 BMI: 22.3 Code: 61544-0 Heart Rate 1: 96 bpm Height: 5'4" Respiratory Rate: 20 bpm Temperature: 37 .7 (C) / 99.9 (F) Weight: 130 lbs 11/29/2012 Blood Pressure 1: 122/76 Code: 8480-6 BMI: 23.0 Code: 41557-6 Heart Rate 1: 84 bpm Height: 5'4" Respiratory Rate: 20 bpm Temperature: 36 .9 (C) / 98.4 (F) Weight: 134 lbs 09/26/2012 Blood Pressure 1: 114/76 Code: 8480-6 BMI: 23.0 Code: 63624-2 Heart Rate 1: 84 bpm Height: 5'4" Respiratory Rate: 20 bpm Temperature: 37 .3 (C) / 99.1 (F) Weight: 134 lbs 07/11/2012 Blood Pressure 1: 126/78 Code: 8480-6 BMI: 23.7 Code: 98839-8 Heart Rate 1: 76 bpm Height: 5'4" Respiratory Rate: 20 bpm Temperature: 37 .1 (C) / 98.7 (F) Weight: 138 lbs 02/02/2012 Blood Pressure 1: 108/70 Code: 8480-6 BMI: 23.2 Code: 45176-8 Heart Rate 1: 88 bpm Height: 5'4" Respiratory Rate: 20 bpm Temperature: 36 .4 (C) / 97.6 (F) Weight: 135 lbs 08/17/2011 Blood Pressure 1: 108/70 Code: 8480-6 BMI: 23.2 Code: 91552-7 Heart Rate 1: 72 bpm Height: 5'4" Respiratory Rate: 20 bpm Temperature: 36 .8 (C) / 98.2 (F) Weight: 135 lbs 10/14/2010 Blood Pressure 1: 120/72 Code: 8480-6 BMI: 23.4 Code: 49596-4 Heart Rate 1: 78 bpm Height: 5'3" Temperature: 36.9 (C) / 98.5 (F) Weight: 132 lbs Functional Status No Functional Status data Reason For Visit Reason For Visit Effective Dates Notes rash 06/26/2019 rash 05/14/2019 hernia 04/10/2019 Medication [...] Encounters Encounter Performer Location Codes Date () OFFICE/OUTPATIENT VISIT EST Diagnosis: Allergic dermatitis[ICD10: L23.9] Alexandra Louise [facility] CPT-4: 19244 06/26/2019 ([id number]) OFFICE/OUTPATIENT VISIT EST Diagnosis: Contact dermatitis due to plant[ICD10: L25.5] Diagnosis: Cellulitis of left arm[ICD10: L03.114] Vandana Crowe PHILOMENA ALLEN [facility] CPT-4: 54355 05/14/2019 ([id number]) OFFICE/OUTPATIENT VISIT EST Diagnosis: Ventral hernia[ICD10: K43.9] Diagnosis: Incisional hernia[ICD10: K43.2] Alexandra CARROLL [facility] CPT-4: 59326 04/10/2019 ([id number]) OFFICE/OUTPATIENT VISIT EST Diagnosis: Insomnia[ICD10: G47.00] Diagnosis: Thrombocytosis[ICD10: D47.3] Alexandra CARROLL [facility] CPT-4: 79683 02/14/2019 ([id number]) OFFICE/OUTPATIENT VISIT EST Diagnosis: Small bowel obstruction[ICD10: K56.609] Diagnosis: FLU VACCINE[ICD10: Z23] Diagnosis: PNEUMOCOCCAL VACCINE[ICD10: Z23] Diagnosis: Onychomycosis[ICD10: B35.1] Alexandra KUNZ [facility] CPT-4: 13708 01/16/2019 ([id number]) OFFICE/OUTPATIENT VISIT EST Diagnosis: Diarrhea, unspecified[ICD10: R19.7] Diagnosis: Radiculopathy, lumbosacral region[ICD10: M54.17] Alexandra [facility]ARROLL [facility] CPT-4: 07832 09/18/2018 OFFICE/OUTPATIENT VISIT EST Diagnosis: Other intervertebral disc degeneration, lumbar region[ICD10: M51.36] Diagnosis: Sacroiliitis, not elsewhere classified[ICD10: M46.1] Diagnosis: Obstructive sleep apnea (adult) (pediatric)[ICD10: G47.33] Alexandra [facility]LL [facility] CPT-4: 60351 08/10/2018 ([id number]) OFFICE/OUTPATIENT VISIT EST Diagnosis: Fracture of unspecified part of left clavicle, subsequent encounter for fracture with routine healing[ICD10: S42.002D] Diagnosis: Cervicalgia[ICD10: M54.2] Diagnosis: Radiculopathy, lumbosacral region[ICD10: M54.17] Alexandra CARROLL [facility] CPT-4: 64402 03/27/2018 ([id number]) OFFICE/OUTPATIENT VISIT EST Diagnosis: Fracture of unspecified part of left clavicle, subsequent encounter for fracture with routine healing[ICD10: S42.002D] Diagnosis: Other intervertebral disc degeneration, lumbar region[ICD10: M51.36] Diagnosis: Unspecified fracture of first thoracic vertebra, subsequent encounter for fracture with routine healing[ICD10: S22.019D] Diagnosis: Unspecified fracture of second thoracic vertebra, subsequent encounter for fracture with routine healing[ICD10: S22.029D] Alexandra CARROLL [facility] CPT-4: 13738 02/23/2018 ([id number]) OFFICE/OUTPATIENT VISIT EST Diagnosis: Fracture of unspecified part of left clavicle, subsequent encounter for fracture with routine healing[ICD10: S42.002D] Diagnosis: Unspecified fracture of first thoracic vertebra, subsequent encounter for fracture with routine healing[ICD10: S22.019D] Diagnosis: Unspecified fracture of second thoracic vertebra, subsequent encounter for fracture with routine healing[ICD10: S22.029D] Alexandra CARR[facility]LL [employer] [facility] CPT-4: 92235 01/24/2018 ([id number]) OFFICE/OUTPATIENT VISIT EST Diagnosis: Migraine, unspecified, not intractable, without status migrainosus[ICD10: G43.909] Alexandra CARR[facility]LL [employer] [facility] CPT - 4: 38624 01/17/2018 ([id number]) OFFICE/OUTPATIENT VISIT EST Diagnosis: Hematuria, unspecified[ICD10: R31.9] Diagnosis: Other intervertebral disc degeneration, lumbar region[ICD10: M51.36] Diagnosis: Retention of urine, unspecified[ICD10: R33.9] Alexandrateja CARROLL [employer] [facility] CPT-4: 35743 12/29/2017 OFFICE/OUTPATIENT VISIT EST Diagnosis: Fracture of [...] Low back pain[ICD10: M54.5] Alexandra KUNZ [facility] CPT-4: 35875 12/06/2017 ([id number]) OFFICE/OUTPATIENT VISIT EST Diagnosis: Cellulitis of right upper limb[ICD10: L03.113] Diagnosis: Allergy status to other antibiotic agents status[ICD10: Z88.1] Vandana CARROLL [facility] CPT-4: 58436 12/01/2017 ([id number]) OFFICE/OUTPATIENT VISIT EST Diagnosis: Cellulitis of right upper limb[ICD10: L03.113] Diagnosis: Allergy status to other antibiotic agents status[ICD10: Z88.1] Vandana CARROLL [facility] CPT-4: 73748 11/30/2017 ([id number]) OFFICE/OUTPATIENT VISIT EST Diagnosis: Cellulitis of right upper limb[ICD10: L03.113] Vandana CARR[facility]LL [facility] CPT-4: 73866 11/29/2017 ([id number]) OFFICE/OUTPATIENT VISIT EST Diagnosis: Cellulitis of right upper limb[ICD10: L03.113] Vandana CARR[facility]LL [facility] CPT-4: 47208 11/28/2017 ([id number]) OFFICE/OUTPATIENT VISIT EST Diagnosis: Other intervertebral disc degeneration, lumbar region[ICD10: M51.36] Diagnosis: Other retention of urine[ICD10: R33.8] Diagnosis: Primary insomnia[ICD10: F51.01] Diagnosis: Other spondylosis, site unspecified[ICD10: M47.899] Alexandra CARROLL [facility] CPT-4: 68466 11/17/2017 ([id number]) OFFICE/OUTPATIENT VISIT EST Diagnosis: Radiculopathy, lumbosacral region[ICD10: M54.17] Diagnosis: Other retention of urine[ICD10: R33.8] Diagnosis: Urinary tract infection, site not specified[ICD10: N39.0] Vandana CARR[facility]LL [facility] CPT-4: 73290 10/10/2017 ([id number]) PREV VISIT EST AGE 40-64 Diagnosis: Encounter for general adult medical examination without abnormal findings[ICD10: Z00.00] Diagnosis: Other intervertebral disc degeneration, lumbar region[ICD10: M51.36] Diagnosis: Hypothyroidism, unspecified[ICD10: E03.9] Diagnosis: Mixed hyperlipidemia[ICD10: E78.2] Alexandradanielle CARROLL [facility] CPT-4: 50913 06/22/2017 ([id number]) OFFICE/OUTPATIENT VISIT EST Diagnosis: URI, ACUTE[ICD10: J06.9] Alexandra [facility] CPT-4: 38899 03/28/2017 OFFICE/OUTPATIENT VISIT EST Diagnosis: Acute sinusitis, unspecified[ICD10: J01.90] [facility]: 89385 02/16/2017 ([id number]) OFFICE/OUTPATIENT VISIT EST Diagnosis: Migraine, unspecified, not intractable, without status migrainosus[ICD10: G43.909] [facility] CPT - [facility]: 31061 11/02/2016 ([id number]) OFFICE/OUTPATIENT VISIT EST Diagnosis: Pain in thoracic spine[ICD10: M54.6] Diagnosis: Chondrocostal junction syndrome [Tietze][ICD10: M94.0] [facility] CPT-4: 30592 09/06/2016 OFFICE/OUTPATIENT VISIT EST Diagnosis: Acute sinusitis, unspecified[ICD10: J01.90] Vidya Manuel [facility] CPT-[facility]: 52706 08/16/2016 ([id number]) OFFICE/OUTPATIENT VISIT EST Diagnosis: Primary insomnia[ICD10: F51.01] Diagnosis: Cramp and spasm[ICD10: R25.2] Diagnosis: Major depressive disorder, single episode, mild[ICD10: F32.0] [facility] CPT-[facility]: 89009 07/19/2016 ([id number]) OFFICE/OUTPATIENT VISIT EST Diagnosis: Obstructive sleep apnea (adult) (pediatric)[ICD10: G47.33] Diagnosis: Other fatigue[ICD10: R53.83] Diagnosis: Allergic rhinitis due to pollen[ICD10: J30.1] Diagnosis: Headache[ICD10: R51] Alexandra Carroll ALEXANDRA MacyAri [facility] CPT-4: 69435 07/06/2016 ([id number]) OFFICE/OUTPATIENT VISIT EST Diagnosis: Acute recurrent sinusitis, unspecified[ICD10: J01.91] Diagnosis: Allergic rhinitis due to pollen[ICD10: J30.1] Alexandra Danejames MARINALEXANDRA MacyAri [facility] CPT-4: 99649 06/15/2016 ([id number]) OFFICE/OUTPATIENT VISIT EST Diagnosis: Migraine, unspecified, not intractable, without status migrainosus[ICD10: G43.909] Diagnosis: Allergic rhinitis, unspecified[ICD10: J30.9] Nae Mckay ALEXANDRA MacyAri [facility] CPT-4: 71986 04/09/2016 ([id number]) OFFICE/OUTPATIENT VISIT EST Diagnosis: Hypothyroidism, unspecified[ICD10: E03.9] Diagnosis: Other fatigue[ICD10: R53.83] Diagnosis: Mixed hyperlipidemia[ICD10: E78.2] Diagnosis: Major depressive disorder, single episode, mild[ICD10: F32.0] Alexandra Glen SHAFFERLINE MacyAri [facility] CPT-4: 17021 03/17/2016 ([id number]) OFFICE/OUTPATIENT VISIT EST Diagnosis: Insomnia, unspecified[ICD10: G47.00] Diagnosis: Encounter for therapeutic drug level monitoring[ICD10: Z51.81] Naety Mckay ALEXANDRA MacyAri [facility] CPT-4: 31816 11/13/2015 ([id number]) OFFICE/OUTPATIENT VISIT EST Diagnosis: Hematuria, unspecified[ICD10: R31.9] Alexandra Danejames MARINQUE DANIELLE MacyAri [facility] CPT-4: 04185 05/05/2015 ([id number]) OFFICE/OUTPATIENT VISIT EST Diagnosis: Other intervertebral disc degeneration, lumbar region[ICD10: M51.36] Diagnosis: Radiculopathy, lumbosacral region[ICD10: M54.17] Alexandra FORDE MacyAri [facility] CPT-4: 85502 04/22/2015 ([id number]) OFFICE/OUTPATIENT VISIT EST Diagnosis: Low back pain[ICD10: M54.5] Diagnosis: Recurrent and persistent hematuria with unspecified morphologic changes[ICD10: N02.9] Alexandra [facility] CPT-4: 93493 03/24/2015 ([id number]) OFFICE/OUTPATIENT VISIT EST Diagnosis: Acute sinusitis, unspecified[ICD10: J01.90] Diagnosis: Headache[ICD10: R51] Diagnosis: Retention of urine, unspecified[ICD10: R33.9] Diagnosis: Hypothyroidism, unspecified[ICD10: E03.9] Alexandra Glen SHAFFERLINE Ty [facility] CPT-4: 02037 02/27/2015 ([id number]) PREV VISIT EST AGE 40-64 Diagnosis: ROUTINE MEDICAL EXAM[ICD9: V70.0] Diagnosis: HYPOTHYROIDISM[ICD9: 244.9] Diagnosis: HYPERLIPIDEMIA NEC/NOS[ICD9: 272.4] Alexandra CORDOBA Ty [facility] [facility] CPT-4: 33700 06/13/2014 ([id number]) OFFICE/OUTPATIENT VISIT EST Diagnosis: CEPHALGIA[ICD9: 784.0] Diagnosis: Nausea[ICD9: 787.02] Shalini Romeo ALEXANDRA Ty [facility] CPT-4: 89974 04/18/2014 ([id number]) OFFICE/OUTPATIENT VISIT EST Diagnosis: INSOMNIA NOS[ICD9: 780.52] Diagnosis: Complicated grieving[ICD9: 309.0] Alexandra Louise MacyAri [facility] CPT-4: 56123 12/05/2013 ([id number]) OFFICE/OUTPATIENT VISIT EST Diagnosis: Muscle twitch[ICD9: 781.0] Diagnosis: ALLERGIC RHINITIS[ICD9: 477.9] Alexandra FORDE Macy Ari [facility] CPT-4: 38124 06/05/2013 ([id number]) OFFICE/OUTPATIENT VISIT EST Diagnosis: DEPRESSIVE DISORDER NEC[ICD9: 311] Alexandra QUINTERO MacyAri [facility] [facility] CPT-4: 36159 05/22/2013 OFFICE/OUTPATIENT VISIT EST Diagnosis: Shingles[ICD9: 053.9] Alexandra [facility] CPT-4: 32950 04/05/2013 ([id number]) OFFICE/OUTPATIENT VISIT EST Diagnosis: DEPRESSIVE DISORDER NEC[ICD9: 311] [facility]: 41292 03/26/2013 ([id number]) OFFICE/OUTPATIENT VISIT EST Diagnosis: Complicated grieving[ICD9: 309.0] Alexandra [facility] CPT-4: 22931 03/06/2013 ([id number]) OFFICE/OUTPATIENT VISIT EST Diagnosis: CEPHALGIA, TENSION[ICD9: 307.81] Diagnosis: MIGRAINE NOS/NOT INTRCBL[ICD9: 346.90] Diagnosis: Cervicalgia[ICD9: 723.1] Alexandra [facility] CPT-4: 36748 11/29/2012 ([id number]) OFFICE/OUTPATIENT VISIT EST Diagnosis: Jaw pain[ICD9: 784.92] Diagnosis: Shoulder pain[ICD9: 719.41] Diagnosis: Family history of premature coronary artery disease[ICD9: V17.3] Alexandra [facility] CPT-4: 92340 09/26/2012 ([id number]) OFFICE/OUTPATIENT VISIT EST Diagnosis: ABDOMINAL PAIN[ICD9: 789.00] Diagnosis: Constipation[ICD9: 564.00] Diagnosis: Hematuria[ICD9: 599.70] Alexandra [facility] CPT-4: 92535 07/11/2012 ([id number]) OFFICE/OUTPATIENT VISIT EST Diagnosis: ANEMIA NOS[ICD9: 285.9] [facility] CPT-4: 45213 02/17/2012 ([id number]) PREV VISIT EST AGE 40-64 Diagnosis: ROUTINE MEDICAL EXAM[ICD9: V70.0] Diagnosis: HYPOTHYROIDISM[ICD9: 244.9] Diagnosis: HYPERLIPIDEMIA NEC/NOS[ICD9: 272.4] Diagnosis: Obstructive sleep apnea[ICD9: 327.23] Alexandra CARROLL [facility] CPT-4: 18436 02/02/2012 ([id number]) OFFICE/OUTPATIENT VISIT EST Diagnosis: URINARY TRACT INFECTION[ICD9: 599.0] Alexandra BURLESONER [facility] CPT-4: 26027 08/27/2011 ([id number]) OFFICE/OUTPATIENT VISIT EST Diagnosis: URINARY TRACT INFECTION[ICD9: 599.0] Diagnosis: ACUTE CYSTITIS[ICD9: 595.0] Alexandra FORDE S. Billie RENDER [facility] CPT-4: 20649 08/17/2011 OFFICE/OUTPATIENT VISIT EST Diagnosis: URINARY TRACT INFECTION[ICD9: 599.0] Steph BURLESONER [facility] CPT-4: 04590 10/14/2010 Plan of Care Planned Activity Notes Codes Status Date Visit Diagnosis Plan: Allergic dermatitis Discussion: Could be numerous things that were given during surgery Continue benadryl Add Prednisone Notify if persists/worsens ICD-9 : 692.9 ICD-10 : L23.9 06/26/2019 Patient Education: prednisone- OptimizeRX Coupon [id number] [email or web address]/resources/getResource/[email or web address] Completed 06/26/2019 Visit Diagnosis Plan: Cellulitis of [...] injection a week pre-op and dr. albert's psych np voiced ok to give. ICD-9 : 692.6 ICD-10 : L25.5 05/14/2019 Appointment: Vandana Crowe [address] [place], [place] [id number] ACUTE I[facility] 05/14/2019 Patient Education: Levaquin- [employer] Coupon [phone] [email or web address]/resources/getResource/[email or web address] Completed 05/14/2019 Visit Diagnosis Plan: Ventral hernia Discussion: See s urgery for repair Discussed signs of incarceration or strangulation then is to report to ER ICD-9 : 553.20 ICD-10 : K43.9 04/10/2019 Appointment: Alexandra Carroll WPtel: [address] [place], [place] [id number] [place] left second message 04/10/19 at 10:20 ACUTE ILLNE SS 04/10/2019 Care Plan: Referral Order SNOMED-CT : 30 [id number] Pending 04/10/2019 Visit Diagnosis Plan: Insomnia Discussion: [...] : D47.3 02/14/2019 Appointment: Alexandra Carroll WPtel: [address] [place], [place] [phone] [place] FOLLOW UP 02/14/2019 Appointment: Alexandra Carroll WPtel: [address] [place], [place] [phone] [place] CANCELED 02/12/2019 Visit Diagnosis Plan: Onychomycosis Discussion: Send n ail for culture ICD-9 : 110.1 ICD-10 : B35.1 01/16/2019 Visit Diagnosis Plan: Small bowel obstruction Discussi on: S/P surgery in September with postop complications of wound dehiscence ICD-9 : 560.9 ICD-10 : K56.609 01/16/2019 Appointment: Alexandra Carroll WPtel: [address] [place], [place] [phone] [place] MEDICATION REVIEW 01/16/2019 Appointment: Alexandra Carroll WPtel: [address] [place], [place] [phone] [place] CANCELED 12/12/2018 Visit Diagnosis Plan: Diarrhea, unspecified Discussion : Due for updated colonoscopy ICD-9 : 787.91 ICD-10 : R19.7 09/18/2018 Visit Diagnosis Plan: Radiculopathy, lumbosacral regio n Discussion: Had left SI joint injection by Dr. Baig about 2 weeks ago and has fwup with him ICD-9 : 724.4 ICD-10 : M54.17 09/18/2018 Appointment: Alexandra Carroll WPtel: [address] [place], [place] [phone] [place] PATIENT CONSULT 15 09/18/2018 Care Plan: Referral Order SNOMED-CT : 30 [id number] Pending 09/18/2018 Visit Diagnosis Plan: Other intervertebral [...] : M46.1 08/10/2018 Appointment: Alexandra Carroll WPtel: [address] [place], [place] [phone] [place] MEDICATION REVIEW 08/10/2018 Care Plan: Referral Order SNOMED-CT : 30 [id number] Pending 08/10/2018 Appointment: Alexandra Carroll WPtel: [address] [place], [place] [phone] [place] CANCELED 04/17/2018 Visit Diagnosis Plan: Fracture [...] 723.1 ICD-10 : M54.2 03/27/2018 Appointment: Alexandra Carrolltel: [address] [place], [place] [phone] [place] FOLLOW UP 03/27/2018 Visit Diagnosis Plan: [...] ICD-10 : S42.002D 02/23/2018 Appointment: Alexandra Carrolltel: [address] [place], [place] [phone] [place] FOLLOW UP 02/23/2018 Patient Education: gabapentin- [employer] Coupon [phone] https://www.[email or web address]/resources/getResource/[email or web address] Completed 02/23/2018 Visit Diagnosis Plan: Fracture of unspec ified part of left clavicle, subsequent encounter for fracture with routine healing Discussion: Hold on PT and do home stretches Trial of gabapentin Recheck 4 weeks ICD-9 : V54.11 ICD-10 : S42.002D 01/24/2018 Appointment: Alexandra Carroll WPtel: [address] [place], [place] [phone] [place] FOLLOW UP 01/24/2018 Visit Diagnosis Plan: Migraine, unspecif ied, not intractable, without status migrainosus Discussion: Toradol and phenergan given ICD-9 : 346.90 ICD-10 : G43.909 01/17/2018 Appointment: Alexandra Carroll WPtel: [address] [place], [place] [phone] ACUTE ILLNESS 01/17/2018 Visit Diagnosis Plan: Retention [...] : M51.36 12/29/2017 Appointment: Alexandra Carroll WPtel: [address] [place], [place] [phone] US ACUTE ILLNESS 12/29/2017 Care Plan: US EXAM PELVIC COMPLETE LOINC : 42624-2 Pending 12/29/2017 Care Plan: ECHO EXAM OF ABDOMEN LOINC : 05056-8 Pending 12/29/2017 Care Plan: Referral Order SNOMED-CT : 30 [id number] Pending 12/29/2017 Visit Diagnosis Plan: Fracture of unspec ified part of left clavicle, subsequent encounter for fracture with routine healing Discussion: Start PT in another 7-14 days Off work for the rest of this week then may return to part-time work on 12/12/17 Fwup in 4 weeks ICD-9 : V54.11 ICD-10 : S42.002D 12/06/2017 Appointment: Alexandra Carroll WPtel: [facility] [place] FOLLOW UP 12/06/2017 Patient Education: Patient [...] : Z88.1 12/01/2017 Appointment: Vandana Crowe [address] [place] [address] FOLLOW UP 12/01/2017 Patient Education: Patient Medication [...] ICD-10 : Z88.1 11/30/2017 Appointment: Vandana Crowe [address] [place], [place] [phone] 11/30/2017 Patient Education: Patient Medication Summary Completed [...] : L03.113 11/29/2017 Appointment: Vandana Crowe [address] [facility] FOLLOW UP 11/29/2017 Patient Education: Patient Medication [...] : L03.113 11/28/2017 Appointment: Vandana Crowe [address] [facility] ACUTE ILLNESS 11/28/2017 Patient Education: Patient Medication [...] 11/17/2017 Appointment: Alexandra Carroll WPtel: [id number] [id number] [place] MEDICATION REVIEW 11/17/2017 Patient Education: Patient Medication Summary Completed 11/17/2017 Care Plan: Referral Order SNOMED-CT : [id number] Pending 11/17/2017 Patient Education: Patient Medication Summary Completed 10/12/2017 Care Plan: MRI LUMBAR SPINE W/O DYE LOIN C : 56612-7 Pending 10/12/2017 Care Plan: X-RAY EXAM L-S SPINE 2/3 VWS LOINC : 99700-3 Pending 10/11/2017 Visit Diagnosis Plan: Other retention [...] medrol pack to start tomorrow. will call [facility] for patient to start PT immediately with inversion table. instructed patient to go to ED immediately if she develops any incontinence with bowel or bladder. patient verbalized understanding. if no improvement, will need updated MRI and referral to surgeon. ICD-9 : 724.4 ICD-10 : M54.17 10/10/2017 Appointment: Vandana Crowe [address] [place], [place] [phone] ACUTE ILLNESS 10/10/2017 Patient Education: Patient Medication Summary Completed 10/10/2017 Appointment: Vandana Crowe [address] [place], [place] [id number] ACUTE ILLNESS 08/01/2017 Visit Diagnosis Plan: Other intervertebral disc degene ration, lumbar region Discussion: Core strengtheing and inversion table and if worsening will need updated MRI ICD-9 : 722.52 ICD-10 : M51.36 06/22/2017 Visit Diagnosis Plan: Encounter for [facility] adult medical examination without abnormal findings Discussion: Lab dis ussed Follow Up: 6 months ICD-9 : V70.0 ICD-10 : Z00.00 06/22/2017 Appointment: Alexandra Carroll WPtel: [phone] Annual Well Visit 06/22/2017 Patient Education: Patient Medication Summary Completed 06/22/2017 Patient Education: Patient Medication Summary Completed 06/16/2017 Care Plan: COMPREH[place] METABOLIC [place] : 411[address]-4 Pending 06/16/2017 Care Plan: ASSAY THYROID STIM HORMONE Pen ding 06/16/2017 Care Plan: ASSAY OF FREE THYROXINE Pendin g 06/16/2017 Care Plan: LIPID PANEL LOINC : 32100-8 Pending 06/16/2017 Care Plan: CBC Pending 06/16/2017 [...] : J06.9 03/28/2017 Appointment: Alexandra Carroll WPtel: [phone] [place] [id number] ACUTE ILLNESS 03/28/2017 Patient Education: Patient Medication Summary Completed 03/28/2017 Visit Diagnosis Plan: Acute sinusitis, unspecified Dis cussion: cefdinir and medrol dose pack prescribed to be taken as directed. tylenol/ibuprofen as needed. educated on importance of taking singulair or zyrtec daily to prevent worsening symptoms. keep hydrated. ICD-9 : 461.9 ICD-10 : J01.90 02/16/2017 Appointment: Vandana Crowe [address] [place] [address] ACUTE ILLNESS 02/16/2017 Patient Education: Patient Medication Summary Completed 02/16/2017 Appointment: Alexandra Carroll WPtel: [address] [place] [address] INJECTION 11/02/2016 Patient Education: Patient Medication Summary Completed 11/02/2016 Visit Diagnosis Plan: Pain in thoracic spine Discussio n: Increase flexeril to 10mg po BID Add Mobic 15mg po daily Towel stretch May see chiropractor to adjust ribs Notify if persists or worsening ICD-9 : 724.1 ICD-10 : M54.6 09/06/2016 Appointment: Alexandra Carroll WPtel: [address] [place] [address] ACUTE ILLNESS 09/06/2016 Patient Education: Patient Medication Summary Completed 09/06/2016 Visit Plan: Due to hx, ERx Cefdinir and Prednisone (discussed risks for both) Given bottle for nasal saline rinses Tylenol/Ibuprofen prn pain/fever Fluids/rest Discussed s/s of worsening, RTC if no improvement 08/16/2016 Appointment: Vidya Manuel WPtel: [address] [place] [address] ACUTE ILLNESS 08/16/2016 Patient Education: Patient Medication [...] : F32.0 07/19/2016 Appointment: Alexandra Carroll WPtel: [address] [place] [address] 07/15 confirmed`sl FOLLOW UP 07/19/2016 Patient Education: [...] : J30.1 07/06/2016 Appointment: Alexandra Carroll WPtel: [phone] [facility] 07/05 confirmed-sp FOLLOW UP 07/06/2016 Patient Education: [...] : J01.91 06/15/2016 Appointment: Alexandra Carroll WPtel: [facility] 06/14 lm ~sl ACUTE ILLNESS 06/15/2016 Patient Education: Patient Medication Summary Completed 06/15/2016 Visit Diagnosis Plan: Migraine, unspecif ied, not intractable, without status migrainosus Discussion: Injection as above Drink ple nty of water No driving x 6 hours Rest No OTC nsaids today Follow up PRN Refill called of claritin-d ICD-9 : 346.90 ICD-10 : G43.909 04/09/2016 Appointment: Nae Mckay [address] [place], [place] [id number] ACUTE ILLNESS 04/09/2016 Patient Education: Patient Medication [...] : R53.83 03/17/2016 Appointment: Alexandra Carroll WPtel: [address] [place], [place] [phone] 03/16 nvm~sl 03/17 confirmed`sl FOLLOW UP 0 03/17/2016 Patient Education: Patient Medication Summary Completed 03/17/2016 Appointment: Alexandra Carroll WPtel: [address] [place], [place] [id number] 03/11 lm~sl 03/15lm `sl 03/15 confirmed`sl FOLLOW U P 03/15/2016 Visit Plan: Discussed labeled indication s for benzos. Since xanax is not labeled for sleep and she has never tried anything else, encouraged her to trial restoril(another benzo) since it is labeled for sleep. She agrees with this trial. Rx called to [facility] after cost comparison which is nearly the same robert. If working well, continue the l0ancga office visits. Call if not working well, and will restart xanax at for sleep. 11/13/2015 Appointment: Nae Mckay [address] [place], [place] [id number] 11/11 confirmed~sl FOLLOW UP 11/13/2015 Patient Education: Patient Medication Summary Completed 11/13/2015 Appointment: Alexandra Carroll WPtel: [address] [place], [place] [phone] Suture Removal 06/23/2015 Patient Education: Patient Medication Summary Completed 06/23/2015 Visit Plan: Removal of lesion above usin g 3-0 punch biopsy Return in 10 days for suture removal 06/12/2015 Appointment: Alexandra Carroll WPtel: [address] [place], [place] [phone] 06/10 lm ~sl ACUTE ILLNESS 06/12/2015 Patient Education: Patient Medication Summary Completed 06/12/2015 Ref[facility]: [facility] [address] Schedule patient around lunch time and 3 weeks from 04/22/2015 ~ Spoke with Kiesha at Dr. Sandoval Office and 04/24/15 and scheduled the patient ~sl 04/24/15 Patient is informed~ 06/03 Patient canceled the appointment ~ Patient did not show up for scheduled appointment-sp Appoint ment Requested 05/21/2015 Appointment: Alexandra Carroll WPtel: [address] [place], [place] [phone] UA 05/05/2015 Patient Education: Patient Medication Summary Completed 05/05/2015 Visit Plan: Starts PT today Schedule wit h Dr. Garcia for epidural CT abdomen/pelvis results discussed Sees BOOKKEEPING TEACHER in April and will get checked then 04/22/2015 Appointment: Alexandra Carroll WPtel: [address] [place], [place] [phone] 04/21 confirmed~lb ACUTE ILLNESS 04/22/2015 Patient Education: Patient Medication Summary Completed 04/22/2015 Referral: Lincoln Hernandez WPtel: [address] [place] [address] Referral Initiated 04/10/2015 Patient Education: Patient Medication Summary Completed 04/09/2015 Visit Plan: Start with lumosacral spine x-ray--will likely need MRI of L/S spine x-ray Needs urology--has had to have bladder stretched in past Tivorbex 03/24/2015 Appointment: Alexandra Carroll WPtel: [address] [place], [place] [phone] 03/21/15 appt confirmed cn ACUTE ILLNESS 03/24 Patient Education: Patient Medication Summary Completed 03/24/2015 Visit Plan: Saline nasal flushes prn. Ty lenol/Motrin prn headache. Notify if persists/symptoms worsening. Cefuroxime to cover both sinuses and UTI Culture urine Check lab 02/27/2015 Appointment: Alexandra Carroll WPtel: [address] [place], [place] [phone] 02/26/15 vm to confirm and need new insu meri on file is inactive cn....02/27/15 appt confirmed cn ACUTE ILLNESS 015 Patient Education: Patient Medication Summary Completed 02/27/2015 Visit Plan: Lab discussed Stop simvastat in Check lipids in 6mos Continue all other meds at current dose Had Pap and Mammo 3 weeks ago 06/13/2014 Appointment: Alexandra Carroll WPtel: [address] [place] [address] Annual Well Visit 06/13/2014 Patient Education: Patient Medication Summary Completed 06/13/2014 Appointment: Shalini Walters WPtel: [address] [place] [address] ACUTE ILLNESS 04/18/2014 Patient Education: Patient Medication Summary Completed 04/18/2014 Visit Plan: Check lab in May then fwup Can try decreasing xanax to 1mg q HS with melatonin 5-10mg q HS 12/05/2013 Appointment: Alexandra Carroll WPtel: [address] [place], [place] [phone] 12/04 FOLLOW UP 12/05/2013 Patient Education: Patient Medication Summary Completed 12/05/2013 Appointment: Alexandra Carroll WPtel: [address] [place], [place] [phone] FOLLOW UP 06/05/2013 Patient Education: Patient Medication Summary Completed 06/05/2013 Appointment: Alexandra Carroll WPtel: [address] [place] [address] FOLLOW UP 05/22/2013 Patient Education: Patient Medication Summary Completed 05/22/2013 Visit Plan: Zovirax for 2wks Notify if p ain worsens or if persists 04/05/2013 Appointment: Alexandra Carroll WPtel: [address] [place] [address] ACUTE ILLNESS 04/05/2013 Patient Education: Patient Medication Summary Completed 04/05/2013 Visit Plan: Keep Wellbutrin at current d ose Pt did see freezer tunnel operator for counseling 03/26/2013 Appointment: Alexandra Carroll WPtel: [address] [place] [address] ACUTE ILLNESS 03/26/2013 Patient Education: Patient Medication Summary Completed 03/26/2013 Visit Plan: Continue citalopram at curre nt dose Increase xanax to 1-2mg q HS for sleep Add Wellbutrin Sr 100mg q AM Start Counseling 03/06/2013 Appointment: Alexandra Carroll WPtel: [address] [place] [address] ACUTE ILLNESS 03/06/2013 Patient Education: Patient Medication Summary Completed 03/06/2013 Appointment: Alexandra Carroll WPtel: [address] [place] [address] ACUTE ILLNESS 11/29/2012 Patient Education: Patient Medication Summary Completed 11/29/2012 Appointment: Alexandra Carroll WPtel: [address] [place] [address] ACUTE ILLNESS 09/26/2012 Patient Education: Patient Medication Summary Completed 09/26/2012 Appointment: Alexandra Carroll WPtel: [address] [place] [address] ACUTE ILLNESS 07/11/2012 Patient Education: Patient Medication Summary Completed 07/11/2012 Appointment: Alexandra Carroll WPtel: [address] [place], [place] [phone] US LAB 02/17/2012 Patient Education: Patient Medication Summary Completed 02/17/2012 Visit Plan: Check fasting lab Start annie y ca with Vit D Cont CPAP Mammo up-to-date Hemoccult card given 02/02/2012 Appointment: Alexandra Carroll WPtel: [address] [place] [address] PHYSICAL 02/02/2012 Patient Education: Patient Medication Summary Completed 02/02/2012 Appointment: Alxeandra Carroll WPtel: [address] [place] [address] UA 08/27/2011 Patient Education: Patient Medication Summary Completed 08/27/2011 Visit Plan: Levaquin and Diflucan for 1w k Then cipro QOD for prophylaxis 08/17/2011 Appointment: Alexandra Carroll WPtel: [address] [place] [address] FOLLOW UP 08/17/2011 Patient Education: Patient Medication Summary Completed 08/17/2011 Appointment: Alexandra Carroll WPtel: [address] [place] [address] UA 12/28/2010 Patient Education: Patient Medication Summary Completed 12/28/2010 Appointment: Alexandra Carroll WPtel: [address] [place] [address] UA 11/09/2010 Patient Education: Patient Medication Summary Completed 11/09/2010 Appointment: Alexandra Carroll WPtel: [address] [place] [address] UA 10/29/2010 Patient Education: Patient Medication Summary Completed 10/29/2010 Appointment: Steph Bowen WPtel: [address] [place] [address] ACUTE ILLNESS 10/14/2010 Patient Education: Patient Medication Summary Completed 10/14/2010 Referral: Florian Baig WPtel: [facility] [address], [facility] 1 [id number] [place] Referral Initiated Referral: Paulo Albert WPtel: [phone] [id number] [place] Referral Appointment Requested Referral: Luis Enrique Jasso WPtel: [facility] [address] Referral Appointment Requested Referral: Florian Baig WPtel: [facility] [address] [place] Referral Appointment Requested Referral: Caleb Glaser WPtel: [address] [id number] [place] Referral Appointment Requested Referral: Florian Baig WPtel: [facility] [address], [id number] [place] Referral Initiated Referral: Florian Baig WPtel: [facility] [address] [place] Referral Appointment Requested Instructions Comment . [...] this trial. Rx called to [facility] after cost comparison which is nearly the same robert. If working well, continue the f9nnehw office visits. Call if not working well, and will restart xanax at for sleep. . Removal of lesion above using 3-0 punc h biopsy Return in 10 days for suture removal . Starts PT today Schedule with Dr. Garcia for epidural CT abdomen/pelvis results discussed Sees BOOKKEEPING TEACHER in April and will get checked then [...]
--- OUTSIDE RECORDS SUMMARY | 2019-09-02 00:22 | XMS REPORT | CCD ---
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 Name Role Phone Alexandra Carroll D.O., PP Unavailable CCM Unavailable Summary Purpose Interface Exchange Insurance Providers Payer name Policy type / Coverage type Covered alliance party ID Effective Begin Date Effective End Date WPS MEDICARE PART B [place] Medicare Part B [id number] Unknown Bankers [place] Medicare Part B [id number] Unknown Family History Family History data not found Social History Social History Element Codes Description Effective Dates Tobacco history SNOMED CT: 733248881 Nonsmoker 10/14/2010 Allergies, Adverse Reactions, Alerts Substance [...] Fill Instructions prednisone 20 mg tablet RxNorm: 838666 1 Tablet(s) Oral two harlan es a day 06/26/2019 07/03/2019 Active Amabelz 1 mg-0.5 mg tablet RxNorm: 9542989 1 Tablet(s) Oral QD 05/30 No Stop Date Active Trazadone 150 mg Tablet RxNorm: 1 Tablet(s) Oral every n ight at bedtime 05/14/2019 No Stop Date Active Levaquin 500 mg tablet RxNorm: 428319 1 Tablet(s) Oral QD 05/14/2019 05/21/2019 Inactive Xanax 1 mg tablet RxNorm: 699636 1-2 Tablet(s) Oral e very night at bedtime as needed for sleep 05/03/2019 06/01/2019 Inactive Generic For:LAVELLE AX 1MG 10/11/2016 11:15:13 AM cyclobenzaprine 10 mg tablet RxNorm: 242465 1 Tablet(s) Oral three times a day as needed for muscle spasm 02/12/2019 02/12/2019 Inactive Xanax 1 mg tablet RxNorm: 296168 1-2 Tablet(s) Oral e very night at bedtime as needed for sleep 02/09/2019 03/10/2019 Inactive Generic For:LAVELLE AX 1MG 10/11/2016 11:15:13 AM Xanax 1 mg tablet RxNorm: 348779 1-2 Tablet(s) Oral e very night at bedtime as needed for sleep 01/22/2019 02/08/2019 Inactive Generic For:LAVELLE AX 1MG 10/11/2016 11:15:13 AM Celexa 40 mg tablet RxNorm: 479078 1 Tablet(s) Oral QD 01/17/2019 Active - First Attempt Ref: [id number] Xanax 1 mg tablet RxNorm: 957438 1 Tablet(s) Oral every night a t bedtime 01/08/2019 01/21/2019 Inactive levothyroxine 88 mcg tablet RxNorm: 329800 TAKE 1 TABLET BY NINA TH DAILY 12/19/2018 06/16/2019 Inactive - First Attempt Ref: [id number] Xanax 1 mg tablet RxNorm: 421272 1 Tablet(s) Oral every night a t bedtime 12/06/2018 01/05/2019 Inactive Singulair 10 mg tablet RxNorm: 391562 1 Tablet(s) Oral every ni ght at bedtime 11/23/2018 11/17/2019 Active - First Attempt Ref: [id number] Celexa 40 mg tablet RxNorm: 598292 1 Tablet(s) Oral 11/23/20182018 Inactive - First Attempt Ref: [id number] cyclobenzaprine 10 mg tablet RxNorm: 819760 1 Tablet(s) Oral three times a day as needed for muscle spasm 11/23/2018 02/11/2019 Inactive Xanax 1 mg tablet RxNorm: 124537 1 Tablet(s) PO QHS 11/06/20182018 Inactive Xanax 1 mg tablet RxNorm: 915019 1 Tablet(s) PO QHS 09/26/20182018 Inactive Singulair 10 mg tablet RxNorm: 789083 TAKE 1 TABLET BY MOUTH EVERY NIGHT AT BEDTIME 08/16/2018 11/22/2018 Inactive - First Attempt Ref: [id number] Xanax 1 mg tablet RxNorm: 329386 1 Tablet(s) PO QHS 08/01/20182018 Inactive levothyroxine 88 mcg tablet RxNorm: 930075 TAKE 1 TABLET BY NINA DAILY 07/31/2018 12/18/2018 Inactive - First Attempt Ref: [id number] Celexa 40 mg tablet RxNorm: 827082 TAKE 1 TABLET BY MOUTH DAILY 04/201811/22/2018 Inactive - First Attempt Ref: 6250037 54 bupropion HCl SR 100 mg tablet,12 hr sustained-release RxNor m: 494273 1 Tablet(s) PO BID 07/12/2018 07/06/2019 Active - Ref: 13365268 7 Claritin-D 24 Hour 10 mg-240 mg tablet,extended release RxNo rm: 8651619 1 Tablet(s) PO QD 06/29/2018 2018 Inactive Claritin-D 24 Hour 10 mg-240 mg tablet,extended release RxNo rm: 2069456 1 Tablet(s) PO QD 06/29/2018 2018 Inactive Xanax 1 mg tablet RxNorm: 794492 1-2 Tablet(s) PO QHS as needed for sleep 05/26/2018 06/23/2018 Inactive Generic For:XANAX 1M G 10/11/2016 11:15:13 AM Xanax 1 mg tablet RxNorm: 135946 1-2 Tablet(s) PO QHS as needed for sleep 03/28/2018 05/25/2018 Inactive Generic For:XANAX 1M G 10/11/2016 11:15:13 AM Macrobid 100 mg capsule RxNorm: 696526 1 Capsule(s) PO BID 03/27/1903/31/2018 Inactive gabapentin 300 mg capsule RxNorm: 342271 1 Capsule(s) PO QHS 201703/26/2018 Inactive Claritin-D 24 Hour 10 mg-240 mg tablet,extended release RxNo rm: 1919985 1 Tablet(s) PO QD 01/26/2018 02/24/2018 Inactive gabapentin 100 mg capsule RxNorm: 310327 1 Capsule(s) P O QHS for 1 week then 2 po q HS for 2 weeks then 3 po q HS 01/24/2018 03/26/2018 Inactive Xanax 1 mg tablet RxNorm: 914772 1-2 Tablet(s) PO QHS as needed for sleep 01/24/2018 03/24/2018 Inactive Generic For:XANAX 1M G 10/11/2016 11:15:13 AM prednisone 20 mg tablet RxNorm: 286345 1 Tablet(s) PO T ID for 3 days then 1 po BID for 3 days then one daily for 3 days 12/29/2017 03/26/2018 Inactiv e prednisone 20 mg tablet RxNorm: 387935 3 Tablet(s) PO T ID for 3 days then 1 po BID for 3 days then one daily for 3 days 12/29/2017 12/29/2017 Inactiv e Macrobid 100 mg capsule RxNorm: 175610 1 Capsule(s) PO BID 12/30/19 18 01/02/2018 Inactive Xanax 1 mg tablet RxNorm: 875577 1-2 Tablet(s) PO QHS as needed for sleep 12/28/2017 01/23/2018 Inactive Generic For:XANAX 1M G 10/11/2016 11:15:13 AM Medrol (Walter) 4 mg tablets in a dose pack RxNorm: 586979 Tablet(s) PO take as directed 12/01/2017 03/26/2018 Inactive Keflex 750 mg capsule RxNorm: 368890 1 Capsule(s) PO BID 12/01/2017 1 Inactive clindamycin HCl 300 mg capsule RxNorm: 691398 2 Capsule(s) PO TID 1 12/08/2017 Inactive Xanax 1 mg tablet RxNorm: 109946 1-2 Tablet(s) PO QHS as needed for sleep 11/28/2017 12/27/2017 Inactive Generic For:XANAX 1M G 10/11/2016 11:15:13 AM mupirocin 2 % topical ointment RxNorm: 328038 1 Application OTIC BI D 11/28/2017 08/09/2018 Inactive Xanax 1 mg tablet RxNorm: 925182 1-2 Tablet(s) PO QHS as needed for sleep 10/27/2017 11/25/2017 Inactive Generic For:XANAX 1M G 10/11/2016 11:15:13 AM Macrobid 100 mg capsule RxNorm: 142254 1 Capsule(s) PO BID 10/11/19 18 10/16/2017 Inactive Medrol (Walter) 4 mg tablets in a dose pack RxNorm: 090039 Tablet(s) PO take as directed 10/10/2017 11/16/2017 Inactive Xanax 1 mg tablet RxNorm: 930592 1-2 Tablet(s) PO QHS as needed for sleep 09/28/2017 10/26/2017 Inactive Generic For:XANAX 1M G 10/11/2016 11:15:13 AM Xanax 1 mg tablet RxNorm: 886624 1-2 Tablet(s) PO QHS as needed for sleep 08/30/2017 09/27/2017 Inactive Generic For:XANAX 1M G 10/11/2016 11:15:13 AM Xanax 1 mg tablet RxNorm: 884953 1-2 Tablet(s) PO QHS as needed for sleep 08/30/2017 08/29/2017 Inactive Generic For:XANAX 1M G 10/11/2016 11:15:13 AM Xanax 1 mg tablet RxNorm: 918425 1-2 Tablet(s) PO QHS as needed for sleep 08/01/2017 08/29/2017 Inactive Generic For:XANAX 1M G 10/11/2016 11:15:13 AM Xanax 1 mg tablet RxNorm: 328037 1-2 Tablet(s) PO QHS as needed for sleep 06/29/2017 2017 Inactive Generic For:XANAX 1M G 10/11/2016 11:15:13 AM Claritin-D 24 Hour 10 mg-240 mg tablet,extended release RxNo rm: 0866443 1 Tablet(s) PO QD 06/29/2017 2017 Inactive levothyroxine 88 mcg tablet RxNorm: 512665 1 Tablet(s) PO QD 201709/10/2017 Inactive Xanax 1 mg tablet RxNorm: 927407 1-2 Tablet(s) PO QHS as needed for sleep 05/26/2017 06/28/2017 Inactive Generic For:XANAX 1M G 10/11/2016 11:15:13 AM Claritin-D 24 Hour 10 mg-240 mg tablet,extended release RxNo rm: 1111431 1 Tablet(s) PO QD 05/26/2017 06/24/2017 Inactive bupropion HCl SR 100 mg tablet,12 hr sustained-release RxNor m: 693168 Tablet(s) Take 1 tablet by mouth two times daily 04/06/2017 12/31/2017 Inactive - Ref: [id number] Xanax 1 mg tablet RxNorm: 568915 1-2 Tablet(s) PO QHS as needed for sleep 03/24/2017 05/22/2017 Inactive Generic For:XANAX 1M G 10/11/2016 11:15:13 AM Medrol (Walter) 4 mg tablets in a dose pack RxNorm: 518571 Tablet(s) P O 02/16/2017 03/27/2017 Inactive Xanax 1 mg tablet RxNorm: 786689 Tablet(s) TAKE ONE T O TWO TABLETS BY MOUTH AT BEDTIME NEEDED 02/16/2017 03/17/2017 Inactive Generic For:XA NAX 1MG 10/11/2016 11:15:13 AM Claritin-D 24 Hour 10 mg-240 mg tablet,extended release RxNo rm: 3815946 1 Tablet(s) PO QD 02/16/2017 04/16/2017 Inactive cefdinir 300 mg capsule RxNorm: 542019 2 Capsule(s) PO QD 02/16/2017 02/25/2017 Inactive Celexa 40 mg tablet RxNorm: 158579 Tablet(s) Take 1 tablet by m outh daily 12/23/2016 09/18/2017 Inactive - Ref: [id number] Xanax 1 mg tablet RxNorm: 914296 Tablet(s) TAKE ONE T O TWO TABLETS BY MOUTH AT BEDTIME NEEDED 12/16/2016 01/14/2017 Inactive Generic For:XA NAX 1MG 10/11/2016 11:15:13 AM Xanax 1 mg tablet RxNorm: 504470 Tablet(s) TAKE ONE T O TWO TABLETS BY MOUTH AT BEDTIME NEEDED 11/18/2016 12/15/2016 Inactive Generic For:XA NAX 1MG 10/11/2016 11:15:13 AM Xanax 1 mg tablet RxNorm: 564141 TAKE ONE TO TWO TABL ETS BY MOUTH AT BEDTIME NEEDED 10/11/2016 11/17/2016 Inactive Generic For:XANA X 1MG 10/11/2016 11:15:13 AM Mobic 15 mg tablet RxNorm: 519339 1 Tablet(s) PO QD 09/06/20162016 Inactive Claritin-D 24 Hour 10 mg-240 mg tablet,extended release RxNo rm: 0905568 1 Tablet(s) PO QD 09/02/2016 11/30/2016 Inactive prednisone 20 mg tablet RxNorm: 068658 1 Tablet(s) PO T ID for 3 days then 1 po BID for 3 days then one daily for 3 days 08/16/2016 03/27/2017 Inactiv e cefdinir 300 mg capsule RxNorm: 412667 2 Capsule(s) PO QD 08/16/2016 09/05/2016 Inactive Xanax 1 mg tablet RxNorm: 254154 TAKE ONE TO TWO TABL ETS BY MOUTH AT BEDTIME NEEDED 08/05/2016 10/11/2016 Inactive Generic For:XANA X 1MG 08/05/2016 2:27:03 PM08/04/2016 4:15:22 PM Singulair 10 mg tablet RxNorm: 421697 1 Tablet(s) PO QHS 07/06/2016 0 09/03/2016 Inactive prednisone 20 mg tablet RxNorm: 095956 1 Tablet(s) PO T ID for 3 days then 1 po BID for 3 days then one daily for 3 days 06/15/2016 07/05/2016 Inactiv e Singulair 10 mg tablet RxNorm: 343395 1 Tablet(s) PO QHS 06/15/2016 0 07/05/2016 Inactive cefdinir 300 mg capsule RxNorm: 416635 2 Capsule(s) PO QD 06/15/2016 07/05/2016 Inactive Xanax 1 mg tablet RxNorm: 506301 1-2 Tablet(s) PO QHS 05/21/201610/2016 Inactive Claritin-D 24 Hour 10 mg-240 mg tablet,extended release RxNo rm: 7026200 1 Tablet(s) PO QD 04/09/2016 07/07/2016 Inactive Xanax 1 mg tablet RxNorm: 351560 1-2 Tablet(s) PO QHS 03/23/201604/29 Inactive levothyroxine 88 mcg tablet RxNorm: 371796 1 Tablet(s) PO QD 201606/13/2017 Inactive bupropion HCl SR 100 mg tablet,sustained-release RxNorm: 993 503 Take 1 tablet by mouth two times daily 03/15/2016 12/09/2016 Inactive - Ref: 20 [id number] Celexa 40 mg tablet RxNorm: 335104 Take 1 tablet by mouth daily 12/23/2016 Inactive - Ref: [id number] Xanax 1 mg tablet RxNorm: 706405 1-2 Tablet(s) PO QHS 02/17/201603/01 Inactive levothyroxine 88 mcg tablet RxNorm: 273093 1 Tablet(s) PO QD 201502/22/2016 Inactive Xanax 1 mg tablet RxNorm: 701229 1-2 Tablet(s) PO QHS 11/25/201511/29 Inactive levothyroxine 88 mcg tablet RxNorm: 299812 1 Tablet(s) PO QD 201511/24/2015 Inactive temazepam 30 mg capsule RxNorm: 952312 1 Capsule(s) PO QHS 11/13/19 16 11/24/2015 Inactive Xanax 1 mg tablet RxNorm: 602159 1-2 Tablet(s) PO QHS 09/15/201510/29 Inactive Celexa 40 mg tablet RxNorm: 653064 1 Tablet(s) PO QD 1 Tablet(s ) PO QD 09/10/2015 09/16/2015 Inactive bupropion HCl SR 100 mg tablet,sustained-release RxNorm: 993 503 1 Tablet(s) PO BID 09/10/2015 09/23/2015 Inactive Xanax 1 mg tablet RxNorm: 441778 1-2 Tablet(s) PO QHS 09/10/201508/28 Inactive Xanax 1 mg tablet RxNorm: 982211 1-2 Tablet(s) PO QHS 08/11/201508/28 Inactive cyclobenzaprine 10 mg tablet RxNorm: 067183 1 Tablet(s) PO TID prn spasm 07/09/2015 11/23/2018 Inactive Celexa 40 mg tablet RxNorm: 312799 1 Tablet(s) PO QD 06/06/201508/03 Inactive Xanax 1 mg tablet RxNorm: 027563 1-2 Tablet(s) PO QHS 06/04/201505/2015 Inactive levothyroxine 88 mcg tablet RxNorm: 104986 1 Tablet(s) PO QD 201511/23/2015 Inactive Ceftin 500 mg tablet RxNorm: 417619 1 Tablet(s) PO BID 05/05/2015 Inactive Ceftin 500 mg tablet RxNorm: 886495 1 Tablet(s) PO BID 05/05/201507/2015 Inactive meloxicam 15 mg tablet RxNorm: 015225 1 Tablet(s) PO QD 04/16/2015 Inactive meloxicam 15 mg tablet RxNorm: 570911 1 Tablet(s) PO QD 04/16/2015 Inactive diclofenac sodium 75 mg tablet,delayed release RxNorm: 94135 6 1 Tablet(s) PO BID 04/04/2015 04/15/2015 Inactive diclofenac sodium 75 mg tablet,delayed release RxNorm: 67173 6 1 Tablet(s) PO BID 04/04/2015 04/03/2015 Inactive Tivorbex 40 mg capsule RxNorm: 5956827 1 Capsule(s) PO TID 03/24/1904/02/2015 Inactive bupropion HCl SR 100 mg tablet,sustained-release RxNorm: 993 503 1 Tablet(s) PO BID 03/11/2015 09/06/2015 Inactive cyclobenzaprine 10 mg tablet RxNorm: 672787 1 Tablet(s) PO TID prn spasm 03/11/2015 07/08/2015 Inactive levothyroxine 88 mcg tablet RxNorm: 006624 1 Tablet(s) PO QD 201405/27/2015 Inactive Claritin-D 24 Hour 10 mg-240 mg tablet,extended release RxNo rm: 4123714 1 Tablet(s) PO QD 02/27/2015 05/27/2015 Inactive cefuroxime axetil 500 mg tablet RxNorm: 784968 1 Tablet(s) PO BID 1 03/12/2015 Inactive Celexa 40 mg tablet RxNorm: 560731 1 Tablet(s) PO QD 02/05/201504/05 Inactive levothyroxine 75 mcg tablet RxNorm: 608824 1 Tablet(s) PO QD 201402/26/2015 Inactive Celexa 40 mg tablet RxNorm: 603688 1 Tablet(s) PO QD 10/09/201402/04 Inactive Activella 1 mg-0.5 mg tablet RxNorm: 4124848 1 Tablet(s) PO QD 08/2802/26/2015 Inactive bupropion HCl SR 100 mg tablet,sustained-release RxNorm: 993 503 1 Tablet(s) PO BID 09/12/2014 03/10/2015 Inactive levothyroxine 75 mcg tablet RxNorm: 738862 1 Tablet(s) PO QD 201412/09/2014 Inactive levothyroxine 75 mcg tablet RxNorm: 963214 1 Tablet(s) PO QD 201409/11/2014 Inactive Celexa 40 mg tablet RxNorm: 944994 1 Tablet(s) PO QD 08/12/201410/08 Inactive Xanax 1 mg tablet RxNorm: 613605 1-2 Tablet(s) PO QHS 08/12/201409/28 Inactive Claritin-D 24 Hour 10 mg-240 mg tablet,extended release RxNo rm: 9241067 1 Tablet(s) PO QD 06/13/2014 09/10/2014 Inactive cyclobenzaprine 10 mg tablet RxNorm: 843291 1 Tablet(s) PO TID prn spasm 06/12/2014 02/26/2015 Inactive Xanax 1 mg tablet RxNorm: 165874 1-2 Tablet(s) PO QHS 05/09/201406/28 Inactive levothyroxine 75 mcg tablet RxNorm: 723305 1 Tablet(s) PO QD 201407/08/2014 Inactive cephalexin 500 mg capsule RxNorm: 340330 1 Capsule(s) PO QOD 201402/26/2015 Inactive simvastatin 10 mg tablet RxNorm: 173058 1 Tablet(s) PO QHS 04/10/19 15 06/12/2014 Inactive Xanax 1 mg tablet RxNorm: 448374 1-2 Tablet(s) PO QHS 04/10/201404/28 Inactive levothyroxine 75 mcg tablet RxNorm: 664578 1 Tablet(s) PO QD 201404/09/2014 Inactive levothyroxine 75 mcg capsule RxNorm: 601564 1 Capsule(s) PO QD 03/3104/10/2014 Inactive Activella 1 mg-0.5 mg tablet RxNorm: 3552787 1 Tablet(s) PO QD 03/0109/11/2014 Inactive bupropion HCl SR 100 mg tablet,sustained-release RxNorm: 993 503 1 Tablet(s) PO BID 03/04/2014 08/30/2014 Inactive Activella 1 mg-0.5 mg tablet RxNorm: 1560396 1 Tablet(s) PO QD 01/2803/18/2014 Inactive levothyroxine 75 mcg capsule RxNorm: 799580 1 Capsule(s) PO QD 12/2904/08/2014 Inactive simvastatin 10 mg tablet RxNorm: 630484 1 Tablet(s) PO QHS 01/10/20 14 04/08/2014 Inactive cyclobenzaprine 10 mg tablet RxNorm: 334870 1 Tablet(s) PO TID prn spasm 01/09/2014 04/08/2014 Inactive Cipro 500 mg tablet RxNorm: 915639 1 Tablet(s) PO BID 12/25/201304/2013 Inactive Cipro 500 mg tablet RxNorm: 230497 1 Tablet(s) PO BID 12/25/201311/29 Inactive bupropion HCl SR 100 mg tablet,sustained-release RxNorm: 993 503 1 Tablet(s) PO QAM 12/11/2013 03/03/2014 Inactive cephalexin 500 mg capsule RxNorm: 967384 1 Capsule(s) PO QOD 201304/09/2014 Inactive Xanax 1 mg tablet RxNorm: 879519 1-2 Tablet(s) PO QHS 10/15/201310/29 Inactive simvastatin 10 mg tablet RxNorm: 854219 1 Tablet(s) PO QHS 10/11/19 14 01/07/2014 Inactive Celexa 40 mg tablet RxNorm: 256618 Tablet(s) PO TAKE 1 TABLET BY MOUTH ONCE DAILY. 09/18/2013 09/17/2013 Inactive Xanax 1 mg tablet RxNorm: 306619 1-2 Tablet(s) PO QHS 08/13/201308/28 Inactive simvastatin 10 mg tablet RxNorm: 787221 1 Tablet(s) PO QHS 07/12/19 14 10/08/2013 Inactive bupropion HCl SR 100 mg tablet,sustained-release RxNorm: 993 503 1 Tablet(s) PO QAM 05/22/2013 11/17/2013 Inactive Pamelor 10 mg capsule RxNorm: 254774 1 Capsule(s) PO QHS for PLATA /sleep 05/22/2013 06/04/2013 Inactive Xanax 1 mg tablet RxNorm: 333449 1-2 Tablet(s) PO QHS 05/15/201305/29 Inactive Pamelor 10 mg capsule RxNorm: 391595 1 Capsule(s) PO QHS for PLATA /sleep 05/15/2013 05/21/2013 Inactive Xanax 1 mg tablet RxNorm: 918129 1 Tablet(s) PO QHS 04/27/20132013 Inactive Zovirax 800 mg tablet RxNorm: 989559 1 Tablet(s) PO TID 04/05/2013 Inactive Xanax 1 mg tablet RxNorm: 009140 1 Tablet(s) PO QHS 04/03/2013 No Sto p Date Active bupropion HCl SR 100 mg tablet,sustained-release RxNorm: 993 503 1 Tablet(s) PO QAM 03/26/2013 05/21/2013 Inactive bupropion HCl SR 100 mg tablet,sustained-release RxNorm: 993 503 1 Tablet(s) PO QAM 03/06/2013 03/25/2013 Inactive Pamelor 10 mg capsule RxNorm: 502381 1 Capsule(s) PO QHS for PLATA /sleep 02/14/2013 05/14/2013 Inactive levothyroxine 75 mcg capsule RxNorm: 790829 1 Capsule(s) PO QD 12/2901/08/2014 Inactive simvastatin 10 mg tablet RxNorm: 993467 1 Tablet(s) PO QHS TAKE 1 TABLET BY MOUTH ONCE DAILY AT BEDTIME. 01/15/2013 07/10/2013 Inactive cyclobenzaprine 10 mg tablet RxNorm: 257064 1 Tablet(s) PO TID prn spasm 12/25/2012 06/22/2013 Inactive Pamelor 10 mg capsule RxNorm: 441950 1 Capsule(s) PO QHS for PLATA /sleep 11/29/2012 02/14/2013 Inactive Celexa 40 mg tablet RxNorm: 380070 Tablet(s) PO TAKE 1 TABLET BY MOUTH ONCE DAILY. 10/11/2012 09/17/2013 Inactive simvastatin 10 mg tablet RxNorm: 195733 Tablet(s) PO TA KE 1 TABLET BY MOUTH ONCE DAILY AT BEDTIME. 10/11/2012 01/14/2013 Inactive simvastatin 10 mg tablet RxNorm: 299402 1 Tablet(s) PO QD 07/11/2012 10/08/2012 Inactive simvastatin 10 mg tablet RxNorm: 143730 1 Tablet(s) PO QD 04/14/2012 07/11/2012 Inactive simvastatin 10 mg tablet RxNorm: 802526 1 Tablet(s) PO QD 04/14/2012 04/13/2012 Inactive Celexa 40 mg tablet RxNorm: 226546 1 Tablet(s) PO QD 03/15/201209/10 Inactive cyclobenzaprine 10 mg tablet RxNorm: 736623 1 Tablet(s) PO TID prn spasm 02/02/2012 02/01/2012 Inactive cyclobenzaprine 10 mg tablet RxNorm: 749348 1 Tablet(s) PO TID prn spasm 02/02/2012 07/30/2012 Inactive Diflucan 100 mg Tab RxNorm: 175479 1 Tablet(s) PO QD 08/17/201108/22 Inactive Cipro 250 mg Tab RxNorm: 123890 1 Tablet(s) PO QD 08/17/2011 10/15/19 12 Inactive Levaquin 500 mg Tab RxNorm: 658205 1 Tablet(s) PO QD 08/17/201108/22 Inactive Pyridium 200 mg Tab RxNorm: 7451044 1 Tablet(s) PO TID 10/14/2010 Inactive may turn urine orange-red color. Cipro 500 mg Tab RxNorm: 860158 1 Tablet(s) PO BID 10/14/2010 011 Inactive levothyroxine 75 mcg capsule RxNorm: 749631 1 Capsule(s) PO QD 12/3001/14/2011 Inactive Vitamin D3 5,000 unit tablet RxNorm: 596930 1 Tablet(s) PO QD No Star t Date Active Nasacort 55 mcg nasal spray aerosol RxNorm: 7037614 2 Sp ray NASAL each nostril QHS No Start Date Active cyclobenzaprine 10 mg tablet RxNorm: 783171 1 Tablet(s) PO TID as needed No Start Date 11/22/2018 Inactive Vitamin D2 1,000 unit capsule RxNorm: 801551 3 Capsule(s) PO QD No Start Date 11/16/2017 Inactive diclofenac sodium 75 mg tablet,delayed release RxNorm: 93212 6 1 Tablet(s) PO BID No Start Date 03/16/2016 Inactive cephalexin 500 mg capsule RxNorm: 699278 1 Capsule(s) PO QOD No Sta rt Date 12/04/2013 Inactive cyclobenzaprine 10 mg tablet RxNorm: 759084 1 Tablet(s) PO QHS No S tart Date 02/01/2012 Inactive loratadine 10 mg tablet RxNorm: 116237 1 Tablet(s) PO QHS No Start Date 05/14/2019 Inactive hydrocodone 5 mg-acetaminophen 500 mg tablet RxNorm: 286383 1 -2 Tablet(s) PO Q6H as needed No Start Date 08/09/2018 Inactive etodolac 400 mg tablet RxNorm: 558272 1 Tablet(s) PO TID No Start D ate 09/17/2018 Inactive Xanax 1 mg tablet RxNorm: 902757 1 Tablet(s) PO QHS No Start Date 04/2013 Inactive Vitamin D3 1,000 unit capsule RxNorm: 752226 1 Capsule(s) PO QD No Start Date 06/12/2014 Inactive estradiol 2 mg tablet RxNorm: 718048 1/2 Tablet(s) PO QD No Start D ate 03/05/2013 Inactive Celexa 40 mg tablet RxNorm: 776159 1 Tablet(s) PO QD No Start Date Inactive Activella 1 mg-0.5 mg tablet RxNorm: 4890204 1 Tablet(s) PO QD No S tart Date 07/10/2012 Inactive medroxyprogesterone 5 mg tablet RxNorm: 3041071 1/2 Tablet(s) PO QD No Start Date 03/05/2013 Inactive levothyroxine 88 mcg tablet RxNorm: 532223 1 Tablet(s) PO QD No Sta rt Date 02/26/2015 Inactive Keflex 500 mg capsule RxNorm: 505886 1 Capsule(s) PO PRN No Start D ate 08/16/2011 Inactive Activella 1 mg-0.5 mg tablet RxNorm: 7313248 1 Tablet(s) PO QHS No Start Date 03/27/2017 Inactive Activella 1 mg-0.5 mg tablet RxNorm: 5488315 1 Tablet(s) PO QD No S tart Date 02/06/2014 Inactive Flexeril 10 mg Tab RxNorm: 839160 1 Tablet(s) PO TID No Start Date Inactive prn spasm simvastatin 10 mg tablet RxNorm: 335852 1 Tablet(s) PO QD No Start Date 04/13/2012 Inactive Medication Administered No Medication Administered data Immunizations Vaccine Codes Date Status Influenza CVX: 135 01/16/2019 Complete Pneumococcal CVX: 133 01/16/2019 Complete Results No Results data Procedures Procedure Codes Date DEXAMETHASONE SODIUM PHOS CPT-4: J1100 05/14/2019 THER/PROPH/DIAG INJ SC/IM CPT-4: 06855 05/14/2019 TRIAMCINOLONE ACET INJ NOS CPT-4: J3301 05/14/2019 FLU VACC PRSV FREE INC ANTIG 65 AND OLDER CPT-4: 42405 01/16/2019 FLU VACC PRSV FREE INC ANTIG 65 AND OLDER CPT-4: 27912 01/16/2019 PNEUMOCOCCAL VACC 13 NARESH IM CPT-4: 46784 01/16/2019 SKIN FUNGI CULTURE CPT-4: 96387 01/16/2019 IMMUNIZATION ADMIN CPT-4: 13404 01/16/2019 IMMUNIZATION ADMIN EACH ADD CPT-4: 68080 01/16/2019 THER/PROPH/DIAG INJ SC/IM CPT-4: 19728 01/17/2018 KETOROLAC TROMETHAMINE INJ CPT-4: J1885 01/17/2018 THER/PROPH/DIAG INJ SC/IM CPT-4: 39187 01/17/2018 PROMETHAZINE HCL INJECTION CPT-4: J2550 01/17/2018 URINALYSIS NONAUTO W/O SCOPE CPT-4: 17849 12/29/2017 URINE CULTURE/ COLONY COUNT CPT-4: 11274 12/29/2017 THER/PROPH/DIAG INJ SC/IM CPT-4: 54925 11/30/2017 TRIAMCINOLONE ACET INJ NOS CPT-4: J3301 11/30/2017 DEXAMETHASONE SODIUM PHOS CPT-4: J1100 11/30/2017 CEFTRIAXONE SODIUM INJECTION CPT-4: J0696 11/29/2017 THER/PROPH/DIAG INJ SC/IM CPT-4: 16361 11/29/2017 CEFTRIAXONE SODIUM INJECTION CPT-4: J0696 11/28/2017 THER/PROPH/DIAG INJ SC/IM CPT-4: 58959 11/28/2017 URINALYSIS NONAUTO W/O SCOPE CPT-4: 44363 10/10/2017 THER/PROPH/DIAG INJ SC/IM CPT-4: 83330 10/10/2017 TRIAMCINOLONE ACET INJ NOS CPT-4: J3301 10/10/2017 DEXAMETHASONE SODIUM PHOS CPT-4: J1100 10/10/2017 CEFTRIAXONE SODIUM INJECTION CPT-4: J0696 10/10/2017 THER/PROPH/DIAG INJ SC/IM CPT-4: 12720 10/10/2017 URINE CULTURE/ COLONY COUNT CPT-4: 13211 10/10/2017 THER/PROPH/DIAG INJ SC/IM CPT-4: 81277 11/02/2016 KETOROLAC TROMETHAMINE INJ CPT-4: J1885 11/02/2016 THER/PROPH/DIAG INJ SC/IM CPT-4: 09848 06/15/2016 TRIAMCINOLONE ACET INJ NOS CPT-4: J3301 06/15/2016 DEXAMETHASONE SODIUM PHOS CPT-4: J1100 06/15/2016 THER/PROPH/DIAG INJ SC/IM CPT-4: 89889 04/09/2016 KETOROLAC TROMETHAMINE INJ CPT-4: J1885 04/09/2016 PROMETHAZINE HCL INJECTION CPT-4: J2550 04/09/2016 EXC TR-EXT B9+ERASMO 0.5 CM< CPT-4: 93438 06/12/2015 URINALYSIS NONAUTO W/O SCOPE CPT-4: 95981 05/05/2015 URINE CULTURE/ COLONY COUNT CPT-4: 44627 05/05/2015 URINALYSIS NONAUTO W/O SCOPE CPT-4: 01875 03/24/2015 URINALYSIS NONAUTO W/O SCOPE CPT-4: 23513 02/27/2015 URINE CULTURE/ COLONY COUNT CPT-4: 46297 02/27/2015 THER/PROPH/DIAG INJ SC/IM CPT-4: 97253 04/18/2014 KETOROLAC TROMETHAMINE INJ CPT-4: J1885 04/18/2014 THER/PROPH/DIAG INJ SC/IM CPT-4: 65386 06/05/2013 TRIAMCINOLONE ACET INJ NOS CPT-4: J3301 06/05/2013 THER/PROPH/DIAG INJ SC/IM CPT-4: 97434 11/29/2012 KETOROLAC TROMETHAMINE INJ CPT-4: J1885 11/29/2012 URINALYSIS NONAUTO W/O SCOPE CPT-4: 70045 07/11/2012 URINE CULTURE/ COLONY COUNT CPT-4: 26280 07/11/2012 OCCULT BLOOD FECES CPT-4: 08666 02/17/2012 URINALYSIS NONAUTO W/O SCOPE CPT-4: 40008 08/27/2011 URINE CULTURE/ COLONY COUNT CPT-4: 54218 08/27/2011 URINALYSIS NONAUTO W/O SCOPE CPT-4: 85944 08/17/2011 URINE CULTURE/ COLONY COUNT CPT-4: 23729 08/17/2011 URINALYSIS NONAUTO W/O SCOPE CPT-4: 80874 12/28/2010 URINE CULTURE/ COLONY COUNT CPT-4: 23562 12/28/2010 URINALYSIS NONAUTO W/O SCOPE CPT-4: 74574 11/09/2010 URINE CULTURE/ COLONY COUNT CPT-4: 16764 11/09/2010 URINALYSIS NONAUTO W/O SCOPE CPT-4: 48769 10/29/2010 URINE CULTURE/ COLONY COUNT CPT-4: 58705 10/29/2010 URINE CULTURE/ COLONY COUNT CPT-4: 87209 10/14/2010 URINALYSIS NONAUTO W/O SCOPE CPT-4: 71453 10/14/2010 Vital Signs Date Vital 06/26/2019 Blood [...] 1: 122/74 Code: 8480-6 BMI: 22.0 Code: 95209-5 Heart Rate 1: 72 bpm Height: 5'3" [...] 1: 126/72 Code: 8480-6 BMI: 22.7 Code: 05922-4 Heart Rate 1: 72 bpm Height: 5'3" [...] 1: 112/70 Code: 8480-6 BMI: 22.0 Code: 75397-1 Heart Rate 1: 80 bpm Height: 5'3" [...] 1: 122/64 Code: 8480-6 BMI: 21.4 Code: 92368-8 Heart Rate 1: 88 bpm Height: 5'3" Respiratory Rate: 22 bpm SpO2: 96% Tempera ture: 36.8 (C) / 98.2 (F) Weight: 121 lbs 06/22/2017 Blood Pressure 1: 124/78 Code: 8480-6 BMI: 21.6 Code: 62436-0 Heart Rate 1: 76 bpm Height: 5'3" Respiratory Rate: 20 bpm Temperature: 36 .8 (C) / 98.3 (F) Weight: 122 lbs 03/28/2017 Blood Pressure 1: 92/60 Code: 8480-6 BMI: 20.4 C ode: 99897-3 Heart Rate 1: 72 bpm Height: 5'3" Respiratory Rate: 20 bpm Temperature: 36 .9 (C) / 98.4 (F) Weight: 115 lbs 02/16/2017 Blood Pressure 1: 106/70 Code: 8480-6 BMI: 21.3 Code: 04538-6 Heart Rate 1: 82 bpm Height: 5'3" Respiratory Rate: 22 bpm SpO2: 97% Tempera ture: 36.1 (C) / 97.0 (F) Weight: 120 lbs 09/06/2016 Blood Pressure 1: 118/64 Code: 8480-6 BMI: 22.7 Code: 96662-4 Heart Rate 1: 78 bpm Height: 5'3" Respiratory Rate: 20 bpm SpO2: 98% Tempera ture: 36.2 (C) / 97.2 (F) Weight: 128 lbs 08/16/2016 Blood Pressure 1: 118/78 Code: 8480-6 BMI: 22.1 Code: 95809-4 Heart Rate 1: 78 bpm Height: 5'3" Respiratory Rate: 20 bpm SpO2: 97% Tempera ture: 36.2 (C) / 97.1 (F) Weight: 125 lbs 07/19/2016 Blood Pressure 1: 116/68 Code: 8480-6 BMI: 22.5 Code: 37122-7 Heart Rate 1: 76 bpm Height: 5'3" Respiratory Rate: 20 bpm Temperature: 36 .8 (C) / 98.2 (F) Weight: 127 lbs 07/06/2016 Blood Pressure 1: 106/70 Code: 8480-6 BMI: 22.5 Code: 74896-8 Heart Rate 1: 72 bpm Height: 5'3" Respiratory Rate: 20 bpm SpO2: 97% Tempera ture: 36.8 (C) / 98.2 (F) Weight: 127 lbs 06/15/2016 Blood Pressure 1: 136/76 Code: 8480-6 BMI: 22.9 Code: 60797-0 Heart Rate 1: 74 bpm Height: 5'3" Respiratory Rate: 18 bpm SpO2: 98% Tempera ture: 36.4 (C) / 97.6 (F) Weight: 129 lbs 04/09/2016 Blood Pressure 1: 124/78 Code: 8480-6 BMI: 23.0 Code: 81479-3 Heart Rate 1: 86 bpm Height: 5'3" Respiratory Rate: 20 bpm SpO2: 96% Tempera ture: 36.5 (C) / 97.7 (F) Weight: 130 lbs 03/17/2016 Blood Pressure 1: 116/74 Code: 8480-6 BMI: 23.4 Code: 19385-7 Heart Rate 1: 84 bpm Height: 5'3" Respiratory Rate: 20 bpm SpO2: 97% Tempera ture: 36.8 (C) / 98.3 (F) Weight: 132 lbs 11/13/2015 Blood Pressure 1: 124/78 Code: 8480-6 BMI: 23.4 Code: 17918-8 Heart Rate 1: 88 bpm Height: 5'3" Respiratory Rate: 24 bpm SpO2: 98% Tempera ture: 36.8 (C) / 98.2 (F) Weight: 132 lbs 06/12/2015 Blood Pressure 1: 126/78 Code: 8480-6 BMI: 23.6 Code: 03650-3 Heart Rate 1: 80 bpm Height: 5'3" Respiratory Rate: 20 bpm Temperature: 36 .9 (C) / 98.4 (F) Weight: 133 lbs 04/22/2015 Blood Pressure 1: 126/68 Code: 8480-6 BMI: 23.6 Code: 36303-7 Heart Rate 1: 80 bpm Height: 5'3" Respiratory Rate: 20 bpm Temperature: 36 .6 (C) / 97.9 (F) Weight: 133 lbs 03/24/2015 Blood Pressure 1: 116/66 Code: 8480-6 BMI: 22.9 Code: 65104-3 Heart Rate 1: 74 bpm Height: 5'3" Respiratory Rate: 20 bpm Temperature: 36 .4 (C) / 97.6 (F) Weight: 129 lbs 02/27/2015 Blood Pressure 1: 106/64 Code: 8480-6 BMI: 22.7 Code: 61330-8 Heart Rate 1: 74 bpm Height: 5'3" Respiratory Rate: 20 bpm Temperature: 36 .8 (C) / 98.2 (F) Weight: 128 lbs 06/13/2014 Blood Pressure 1: 104/66 Code: 8480-6 BMI: 22.7 Code: 53128-4 Heart Rate 1: 84 bpm Height: 5'3" Respiratory Rate: 20 bpm Temperature: 37 .0 (C) / 98.6 (F) Weight: 128 lbs 04/18/2014 Blood Pressure 1: 112/62 Code: 8480-6 BMI: 22.0 Code: 83893-9 Heart Rate 1: 82 bpm Height: 5'3" Respiratory Rate: 18 bpm Temperature: 36 .4 (C) / 97.6 (F) Weight: 124 lbs 12/05/2013 Blood Pressure 1: 106/70 Code: 8480-6 BMI: 23.7 Code: 51624-4 Heart Rate 1: 84 bpm Height: 5'3" [...] 1: 126/88 Code: 8480-6 BMI: 22.3 Code: 61440-4 Heart Rate 1: 96 bpm Height: 5'4" Respiratory Rate: 20 bpm Temperature: 37 .7 (C) / 99.9 (F) Weight: 130 lbs 11/29/2012 Blood Pressure 1: 122/76 Code: 8480-6 BMI: 23.0 Code: 34571-4 Heart Rate 1: 84 bpm Height: 5'4" Respiratory Rate: 20 bpm Temperature: 36 .9 (C) / 98.4 (F) Weight: 134 lbs 09/26/2012 Blood Pressure 1: 114/76 Code: 8480-6 BMI: 23.0 Code: 25889-3 Heart Rate 1: 84 bpm Height: 5'4" Respiratory Rate: 20 bpm Temperature: 37 .3 (C) / 99.1 (F) Weight: 134 lbs 07/11/2012 Blood Pressure 1: 126/78 Code: 8480-6 BMI: 23.7 Code: 96449-1 Heart Rate 1: 76 bpm Height: 5'4" Respiratory Rate: 20 bpm Temperature: 37 .1 (C) / 98.7 (F) Weight: 138 lbs 02/02/2012 Blood Pressure 1: 108/70 Code: 8480-6 BMI: 23.2 Code: 45245-9 Heart Rate 1: 88 bpm Height: 5'4" Respiratory Rate: 20 bpm Temperature: 36 .4 (C) / 97.6 (F) Weight: 135 lbs 08/17/2011 Blood Pressure 1: 108/70 Code: 8480-6 BMI: 23.2 Code: 19934-0 Heart Rate 1: 72 bpm Height: 5'4" Respiratory Rate: 20 bpm Temperature: 36 .8 (C) / 98.2 (F) Weight: 135 lbs 10/14/2010 Blood Pressure 1: 120/72 Code: 8480-6 BMI: 23.4 Code: 01320-2 Heart Rate 1: 78 bpm Height: 5'3" [...] EST Diagnosis: Allergic dermatitis[ICD10: L23.9] Alexandra Louise [employer] CPT-4: 63487 06/26/2019 ([id number]) OFFICE/OUTPATIENT VISIT EST Diagnosis: Contact dermatitis due to plant[ICD10: L25.5] Diagnosis: Cellulitis of left arm[ICD10: L03.114] Vandana Crowe PHILOMENA ALLEN [employer] CPT-4: 52373 05/14/2019 ([id number]) OFFICE/OUTPATIENT VISIT EST Diagnosis: Ventral hernia[ICD10: K43.9] Diagnosis: Incisional hernia[ICD10: K43.2] Alexandra CARROLL [facility] CPT-4: 64351 04/10/2019 ([id number]) OFFICE/OUTPATIENT VISIT EST Diagnosis: Insomnia[ICD10: G47.00] Diagnosis: Thrombocytosis[ICD10: D47.3] Alexandra CARROLL [facility] CPT-4: 34130 02/14/2019 ([id number]) OFFICE/OUTPATIENT VISIT EST Diagnosis: Small bowel obstruction[ICD10: K56.609] Diagnosis: FLU VACCINE[ICD10: Z23] Diagnosis: PNEUMOCOCCAL VACCINE[ICD10: Z23] Diagnosis: Onychomycosis[ICD10: B35.1] Alexandra KUNZ [facility] CPT-4: 09473 01/16/2019 ([id number]) OFFICE/OUTPATIENT VISIT EST Diagnosis: Diarrhea, unspecified[ICD10: R19.7] Diagnosis: Radiculopathy, lumbosacral region[ICD10: M54.17] Alexandra CARROLL [facility] CPT-4: 71541 09/18/2018 OFFICE/OUTPATIENT VISIT EST Diagnosis: Other intervertebral disc degeneration, lumbar region[ICD10: M51.36] Diagnosis: Sacroiliitis, not elsewhere classified[ICD10: M46.1] Diagnosis: Obstructive sleep apnea (adult) (pediatric)[ICD10: G47.33] Alexandra CARROLL [facility] CPT-4: 26689 08/10/2018 ([id number]) OFFICE/OUTPATIENT VISIT EST Diagnosis: Fracture of unspecified part of left clavicle, subsequent encounter for fracture with routine healing[ICD10: S42.002D] Diagnosis: Cervicalgia[ICD10: M54.2] Diagnosis: Radiculopathy, lumbosacral region[ICD10: M54.17] Alexandra CARROLL [facility] CPT-4: 65758 03/27/2018 ([id number]) OFFICE/OUTPATIENT VISIT EST Diagnosis: Fracture of unspecified part of left clavicle, subsequent encounter for fracture with routine healing[ICD10: S42.002D] Diagnosis: Other intervertebral disc degeneration, lumbar region[ICD10: M51.36] Diagnosis: Unspecified fracture of first thoracic vertebra, subsequent encounter for fracture with routine healing[ICD10: S22.019D] Diagnosis: Unspecified fracture of second thoracic vertebra, subsequent encounter for fracture with routine healing[ICD10: S22.029D] Alexandra CARROLL [facility] CPT-4: 28048 02/23/2018 ([id number]) OFFICE/OUTPATIENT VISIT EST Diagnosis: Fracture of unspecified part of left clavicle, subsequent encounter for fracture with routine healing[ICD10: S42.002D] Diagnosis: Unspecified fracture of first thoracic vertebra, subsequent encounter for fracture with routine healing[ICD10: S22.019D] Diagnosis: Unspecified fracture of second thoracic vertebra, subsequent encounter for fracture with routine healing[ICD10: S22.029D] Alexandra CRAROLL [facility] CPT-4: 51799 01/24/2018 ([id number]) OFFICE/OUTPATIENT VISIT EST Diagnosis: Migraine, unspecified, not intractable, without status migrainosus[ICD10: G43.909] Alexandra CARROLL [facility] CPT - 4: 54142 01/17/2018 ([id number]) OFFICE/OUTPATIENT VISIT EST Diagnosis: Hematuria, unspecified[ICD10: R31.9] Diagnosis: Other intervertebral disc degeneration, lumbar region[ICD10: M51.36] Diagnosis: Retention of urine, unspecified[ICD10: R33.9] Alexandrateja CARROLL [facility] CPT-4: 49813 12/29/2017 OFFICE/OUTPATIENT VISIT EST Diagnosis: Fracture of [...] Low back pain[ICD10: M54.5] Alexandra KUNZ DO [facility] CPT-4: 58210 12/06/2017 ([id number]) OFFICE/OUTPATIENT VISIT EST Diagnosis: Cellulitis of right upper limb[ICD10: L03.113] Diagnosis: Allergy status to other antibiotic agents status[ICD10: Z88.1] Vandana CARROLL DO [facility] CPT-4: 78887 12/01/2017 ([id number]) OFFICE/OUTPATIENT VISIT EST Diagnosis: Cellulitis of right upper limb[ICD10: L03.113] Diagnosis: Allergy status to other antibiotic agents status[ICD10: Z88.1] Vandana CARROLL DO [facility] CPT-4: 01420 11/30/2017 ([id number]) OFFICE/OUTPATIENT VISIT EST Diagnosis: Cellulitis of right upper limb[ICD10: L03.113] Vandana CARROLL DO [facility] CPT-4: 26405 11/29/2017 ([id number]) OFFICE/OUTPATIENT VISIT EST Diagnosis: Cellulitis of right upper limb[ICD10: L03.113] Vandana CARROLL DO [facility] CPT-4: 77452 11/28/2017 ([id number]) OFFICE/OUTPATIENT VISIT EST Diagnosis: Other intervertebral disc degeneration, lumbar region[ICD10: M51.36] Diagnosis: Other retention of urine[ICD10: R33.8] Diagnosis: Primary insomnia[ICD10: F51.01] Diagnosis: Other spondylosis, site unspecified[ICD10: M47.899] Alexandra CARROLL DO [facility] CPT-4: 02916 11/17/2017 ([id number]) OFFICE/OUTPATIENT VISIT EST Diagnosis: Radiculopathy, lumbosacral region[ICD10: M54.17] Diagnosis: Other retention of urine[ICD10: R33.8] Diagnosis: Urinary tract infection, site not specified[ICD10: N39.0] Vandana CARROLL DO [facility] CPT-4: 96227 10/10/2017 ([id number]) PREV VISIT EST AGE 40-64 Diagnosis: Encounter for general adult medical examination without abnormal findings[ICD10: Z00.00] Diagnosis: Other intervertebral disc degeneration, lumbar region[ICD10: M51.36] Diagnosis: Hypothyroidism, unspecified[ICD10: E03.9] Diagnosis: Mixed hyperlipidemia[ICD10: E78.2] Alexandradanielle CARROLL [facility] CPT-4: 24529 06/22/2017 ([id number]) OFFICE/OUTPATIENT VISIT EST Diagnosis: URI, ACUTE[ICD10: J06.9] Alexandra [facility] CPT-4: 23788 03/28/2017 OFFICE/OUTPATIENT VISIT EST Diagnosis: Acute sinusitis, unspecified[ICD10: J01.90] [facility]ana [facility] CPT-4: 31626 02/16/2017 ([id number]) OFFICE/OUTPATIENT VISIT EST Diagnosis: Migraine, unspecified, not intractable, without status migrainosus[ICD10: G43.909] Alexandra [facility] CPT - 4: 77664 11/02/2016 ([id number]) OFFICE/OUTPATIENT VISIT EST Diagnosis: Pain in thoracic spine[ICD10: M54.6] Diagnosis: Chondrocostal junction syndrome [Tietze][ICD10: M94.0] Alexandra [facility] CPT-4: 11598 09/06/2016 OFFICE/OUTPATIENT VISIT EST Diagnosis: Acute sinusitis, unspecified[ICD10: J01.90] Vidya Manuel ALEXANDRA [facility] CPT-4: 69291 08/16/2016 ([id number]) OFFICE/OUTPATIENT VISIT EST Diagnosis: Primary insomnia[ICD10: F51.01] Diagnosis: Cramp and spasm[ICD10: R25.2] Diagnosis: Major depressive disorder, single episode, mild[ICD10: F32.0] Alexandra [facility] CPT-4: 21586 07/19/2016 ([id number]) OFFICE/OUTPATIENT VISIT EST Diagnosis: Obstructive sleep apnea (adult) (pediatric)[ICD10: G47.33] Diagnosis: Other fatigue[ICD10: R53.83] Diagnosis: Allergic rhinitis due to pollen[ICD10: J30.1] Diagnosis: Headache[ICD10: R51] Alexandra Carroll ALEXANDRA MacyAri GLEN [facility] CPT-4: 22376 07/06/2016 ([id number]) OFFICE/OUTPATIENT VISIT EST Diagnosis: Acute recurrent sinusitis, unspecified[ICD10: J01.91] Diagnosis: Allergic rhinitis due to pollen[ICD10: J30.1] Alexandra Danejames MARINALEXANDRA MacyAri GLEN SALGUERO [facility] CPT-4: 98051 06/15/2016 ([id number]) OFFICE/OUTPATIENT VISIT EST Diagnosis: Migraine, unspecified, not intractable, without status migrainosus[ICD10: G43.909] Diagnosis: Allergic rhinitis, unspecified[ICD10: J30.9] Nae Mckay ALEXANDRA MacyAri GLEN [facility] CPT-4: 87576 04/09/2016 ([id number]) OFFICE/OUTPATIENT VISIT EST Diagnosis: Hypothyroidism, unspecified[ICD10: E03.9] Diagnosis: Other fatigue[ICD10: R53.83] Diagnosis: Mixed hyperlipidemia[ICD10: E78.2] Diagnosis: Major depressive disorder, single episode, mild[ICD10: F32.0] Alexandra Glen SHAFFERLINE MacyAri GLEN [facility] CPT-4: 58603 03/17/2016 ([id number]) OFFICE/OUTPATIENT VISIT EST Diagnosis: Insomnia, unspecified[ICD10: G47.00] Diagnosis: Encounter for therapeutic drug level monitoring[ICD10: Z51.81] Naety Mckay ALEXANDRA [facility]acyAri [facility] CPT-4: 94945 11/13/2015 ([id number]) OFFICE/OUTPATIENT VISIT EST Diagnosis: Hematuria, unspecified[ICD10: R31.9] Alexandra Danejames MARINQUE DANIELLE MacyAri GLEN [facility] CPT-4: 75545 05/05/2015 ([id number]) OFFICE/OUTPATIENT VISIT EST Diagnosis: Other intervertebral disc degeneration, lumbar region[ICD10: M51.36] Diagnosis: Radiculopathy, lumbosacral region[ICD10: M54.17] Alexandra FORDE MacyAri [facility] CPT-4: 37267 04/22/2015 ([id number]) OFFICE/OUTPATIENT VISIT EST Diagnosis: Low back pain[ICD10: M54.5] Diagnosis: Recurrent and persistent hematuria with unspecified morphologic changes[ICD10: N02.9] Alexandra CARROLL [facility] CPT-4: 47166 03/24/2015 ([id number]) OFFICE/OUTPATIENT VISIT EST Diagnosis: Acute sinusitis, unspecified[ICD10: J01.90] Diagnosis: Headache[ICD10: R51] Diagnosis: Retention of urine, unspecified[ICD10: R33.9] Diagnosis: Hypothyroidism, unspecified[ICD10: E03.9] Alexandra Glen SHAFFERLINE Ty CARROLL [facility] CPT-4: 34416 02/27/2015 ([id number]) PREV VISIT EST AGE 40-64 Diagnosis: ROUTINE MEDICAL EXAM[ICD9: V70.0] Diagnosis: HYPOTHYROIDISM[ICD9: 244.9] Diagnosis: HYPERLIPIDEMIA NEC/NOS[ICD9: 272.4] Alexandra CORDOBA Ty CARROLL [facility] CPT-4: 09996 06/13/2014 ([id number]) OFFICE/OUTPATIENT VISIT EST Diagnosis: CEPHALGIA[ICD9: 784.0] Diagnosis: Nausea[ICD9: 787.02] Shalini Romeo ALEXANDRA Ty CARROLL [facility] CPT-4: 39793 04/18/2014 ([id number]) OFFICE/OUTPATIENT VISIT EST Diagnosis: INSOMNIA NOS[ICD9: 780.52] Diagnosis: Complicated grieving[ICD9: 309.0] Alexandra Louise MacyAri GLEN [facility] CPT-4: 44054 12/05/2013 ([id number]) OFFICE/OUTPATIENT VISIT EST Diagnosis: Muscle twitch[ICD9: 781.0] Diagnosis: ALLERGIC RHINITIS[ICD9: 477.9] Alexandra FORDE Mcay Ari GLEN [facility] CPT-4: 38184 06/05/2013 ([id number]) OFFICE/OUTPATIENT VISIT EST Diagnosis: DEPRESSIVE DISORDER NEC[ICD9: 311] Alexandra QUINTERO MacyAri [facility] CPT-4: 57616 05/22/2013 OFFICE/OUTPATIENT VISIT EST Diagnosis: Shingles[ICD9: 053.9] Alexandra CARROLL [facility] CPT-4: 51948 04/05/2013 ([id number]) OFFICE/OUTPATIENT VISIT EST Diagnosis: DEPRESSIVE DISORDER NEC[ICD9: 311] Alexandra [facility] CPT-4: 74666 03/26/2013 ([id number]) OFFICE/OUTPATIENT VISIT EST Diagnosis: Complicated grieving[ICD9: 309.0] Alexandra CARROLL [facility] CPT-4: 32808 03/06/2013 ([id number]) OFFICE/OUTPATIENT VISIT EST Diagnosis: CEPHALGIA, TENSION[ICD9: 307.81] Diagnosis: MIGRAINE NOS/NOT INTRCBL[ICD9: 346.90] Diagnosis: Cervicalgia[ICD9: 723.1] Alexandra [facility] CPT-4: 53501 11/29/2012 ([id number]) OFFICE/OUTPATIENT VISIT EST Diagnosis: Jaw pain[ICD9: 784.92] Diagnosis: Shoulder pain[ICD9: 719.41] Diagnosis: Family history of premature coronary artery disease[ICD9: V17.3] Alexandra CARROLL [facility] CPT-4: 86733 09/26/2012 ([id number]) OFFICE/OUTPATIENT VISIT EST Diagnosis: ABDOMINAL PAIN[ICD9: 789.00] Diagnosis: Constipation[ICD9: 564.00] Diagnosis: Hematuria[ICD9: 599.70] Alexandra [facility] CPT-4: 11279 07/11/2012 ([id number]) OFFICE/OUTPATIENT VISIT EST Diagnosis: ANEMIA NOS[ICD9: 285.9] Alexandra [facility] CPT-4: 64139 02/17/2012 ([id number]) PREV VISIT EST AGE 40-64 Diagnosis: ROUTINE MEDICAL EXAM[ICD9: V70.0] Diagnosis: HYPOTHYROIDISM[ICD9: 244.9] Diagnosis: HYPERLIPIDEMIA NEC/NOS[ICD9: 272.4] Diagnosis: Obstructive sleep apnea[ICD9: 327.23] Alexandra CARROLL DO [facility] CPT-4: 39108 02/02/2012 ([id number]) OFFICE/OUTPATIENT VISIT EST Diagnosis: URINARY TRACT INFECTION[ICD9: 599.0] Alexandra BURLESONER DO [facility] CPT-4: 34728 08/27/2011 ([id number]) OFFICE/OUTPATIENT VISIT EST Diagnosis: URINARY TRACT INFECTION[ICD9: 599.0] Diagnosis: ACUTE CYSTITIS[ICD9: 595.0] Alexandra FORDE S. Billie RENDER DO [facility] CPT-4: 33204 08/17/2011 OFFICE/OUTPATIENT VISIT EST Diagnosis: URINARY TRACT INFECTION[ICD9: 599.0] Steph BURLESONER DO [facility] CPT-4: 64747 10/14/2010 Plan of Care Planned Activity Notes Codes Status Date Visit Diagnosis Plan: Allergic dermatitis Discussion: Could be numerous things that were given during surgery Continue benadryl Add Prednisone Notify if persists/worsens ICD-9 : 692.9 ICD-10 : L23.9 06/26/2019 Patient Education: prednisone- [employer] C[employer] [phone] [email or web address]/resources/getResource/[email or web address] Completed 06/26/2019 Visit Diagnosis Plan: Cellulitis of [...] injection a week pre-op and 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 ICD-9 : 692.6 ICD-10 : L25.5 05/14/2019 Appointment: Vandana Crowe [address] [place], [place] [id number] ACUTE ILLNESS 05/14/2019 Patient Education: Levaquin- [employer] C[employer]on [phone] [email or web address]/[email or web address]/resources/getResource/[email or web address] Completed 05/14/2019 Visit Diagnosis Plan: Ventral hernia Discussion: See s urgery for repair Discussed signs of incarceration or strangulation then is to report to ER ICD-9 : 553.20 ICD-10 : K43.9 04/10/2019 Appointment: Alexandra Carroll WPtel: [address] [place], [place] [id number] [place] left second message 04/10/19 at 10:20 ACUTE ILLNE SS 04/10/2019 Care Plan: Referral Order SNOMED-CT : 30 [id number] Pending 04/10/2019 Visit Diagnosis Plan: Insomnia Discussion: [...] : D47.3 02/14/2019 Appointment: Alexandra Carroll WPtel: [address] [place], [place] [phone] [place] FOLLOW UP 02/14/2019 Appointment: Alexandra Carroll WPtel: [address] [place], [place] [phone] [place] CANCELED 02/12/2019 Visit Diagnosis Plan: Onychomycosis Discussion: Send n ail for culture ICD-9 : 110.1 ICD-10 : B35.1 01/16/2019 Visit Diagnosis Plan: Small bowel obstruction Discussi on: S/P surgery in September with postop complications of wound dehiscence ICD-9 : 560.9 ICD-10 : K56.609 01/16/2019 Appointment: Alexandra Carroll WPtel: [address] [place], [place] [phone] [place] MEDICATION REVIEW 01/16/2019 Appointment: Alexandra Carroll WPtel: [address] [place], [place] [phone] US CANCELED 12/12/2018 Visit Diagnosis Plan: Diarrhea, unspecified Discussion : Due for updated colonoscopy ICD-9 : 787.91 ICD-10 : R19.7 09/18/2018 Visit Diagnosis Plan: Radiculopathy, lumbosacral regio n Discussion: Had left SI joint injection by Dr. Baig about 2 weeks ago and has fwup with him ICD-9 : 724.4 ICD-10 : M54.17 09/18/2018 Appointment: Alexandra Carroll WPtel: [address] [place], [place] [phone] US PATIENT CONSULT 15 09/18/2018 Care Plan: Referral Order SNOMED-CT : 30 [id number] Pending 09/18/2018 Visit Diagnosis Plan: Other intervertebral [...] M46.1 08/10/2018 Appointment: Alexandra Carroll WPtel: [address] [place], [place] [phone] US MEDICATION REVIEW 08/10/2018 Care Plan: Referral Order SNOMED-CT : 30 2394154 Pending 08/10/2018 Appointment: Alexandra Carroll WPtel: [address] [place], [place] [id number] [place] CANCELED 04/17/2018 Visit Diagnosis Plan: Fracture [...] ICD-10 : M54.2 03/27/2018 Appointment: Alexandra Carrolltel: [address] [place], [place] [phone] US FOLLOW UP 03/27/2018 Visit Diagnosis Plan: [...] ICD-10 : S42.002D 02/23/2018 Appointment: Alexandra Carrolltel: [address] [place], [place] [phone] US FOLLOW UP 02/23/2018 Patient Education: gabapentin- [employer] Coupon [phone] [email or web address]/[email or web address]/resources/getResource/[email or web address] Completed 02/23/2018 Visit Diagnosis Plan: Fracture of unspec ified part of left clavicle, subsequent encounter for fracture with routine healing Discussion: Hold on PT and do home stretches Trial of gabapentin Recheck 4 weeks ICD-9 : V54.11 ICD-10 : S42.002D 01/24/2018 Appointment: Alexandra Carroll WPtel: [address] [place], [place] [phone] US FOLLOW UP 01/24/2018 Visit Diagnosis Plan: Migraine, unspecif ied, not intractable, without status migrainosus Discussion: Toradol and phenergan given ICD-9 : 346.90 ICD-10 : G43.909 01/17/2018 Appointment: Alexandra Carroll WPtel: [address] [place], [place] [phone] ACUTE ILLNESS 01/17/2018 Visit Diagnosis Plan: Retention [...] : M51.36 12/29/2017 Appointment: Alexandra Carroll WPtel: [address] [place], [place] [phone] US ACUTE ILLNESS 12/29/2017 Care Plan: US EXAM PELVIC COMPLETE LOINC : 58102-5 Pending 12/29/2017 Care Plan: ECHO EXAM OF ABDOMEN LOINC : 95720-2 Pending 12/29/2017 Care Plan: Referral Order SNOMED-CT : 30 1111440 Pending 12/29/2017 Visit Diagnosis Plan: Fracture of unspec ified part of left clavicle, subsequent encounter for fracture with routine healing Discussion: Start PT in another 7-14 days Off work for the rest of this week then may return to part-time work on 12/12/17 Fwup in 4 weeks ICD-9 : V54.11 ICD-10 : S42.002D 12/06/2017 Appointment: Alexandra Carroll WPtel: [facility] [place] FOLLOW UP 12/06/2017 Patient Education: Patient [...] ICD-10 : Z88.1 12/01/2017 Appointment: Vandana Crowe [address] [place] [address] FOLLOW UP 12/01/2017 Patient Education: Patient Medication [...] ICD-10 : Z88.1 11/30/2017 Appointment: Vandana Crowe [address] [place], [place] [phone] 11/30/2017 Patient Education: Patient Medication Summary Completed [...] : L03.113 11/29/2017 Appointment: Vandana Crowe [address] [facility] FOLLOW UP 11/29/2017 Patient Education: Patient Medication [...] : L03.113 11/28/2017 Appointment: Vandana Crowe [address] [facility] ACUTE ILLNESS 11/28/2017 Patient Education: Patient [...] Appointment: Alexandra Carroll WPtel: [id number] US MEDICATION REVIEW 11/17/2017 Patient Education: Patient Medication Summary Completed 11/17/2017 Care Plan: Referral Order SNOMED-CT : 30 [id number] Pending 11/17/2017 Patient Education: Patient Medication Summary Completed 10/12/2017 Care Plan: MRI LUMBAR SPINE W/O DYE LOIN C : 27805-9 Pending 10/12/2017 Care Plan: X-RAY EXAM L-S SPINE 2/3 VWS LOINC : 31915-6 Pending 10/11/2017 Visit Diagnosis Plan: Other retention [...] medrol pack to start tomorrow. will call [facility] for patient to start PT immediately with inversion table. instructed patient to go to ED immediately if she develops any incontinence with bowel or bladder. patient verbalized understanding. if no improvement, will need updated MRI and referral to surgeon. ICD-9 : 724.4 ICD-10 : M54.17 10/10/2017 Appointment: Vandana Crowe [address] [place], [place] [phone] ACUTE ILLNESS 10/10/2017 Patient Education: Patient Medication Summary Completed 10/10/2017 Appointment: Vandana Crowe [address] [place], [place] [id number] ACUTE ILLNESS 08/01/2017 Visit Diagnosis Plan: Other intervertebral disc degene ration, lumbar region Discussion: Core strengtheing and inversion table and if worsening will need updated MRI ICD-9 : 722.52 ICD-10 : M51.36 06/22/2017 Visit Diagnosis Plan: Encounter for [facility] adult medical examination without abnormal findings Discussion: Lab dis ussed Follow Up: 6 months ICD-9 : V70.0 ICD-10 : Z00.00 06/22/2017 Appointment: Alexandra Carroll WPtel: [id number] Annual Well Visit 06/22/2017 Patient Education: Patient Medication Summary Completed 06/22/2017 Patient Education: Patient Medication Summary Completed 06/16/2017 Care Plan: [place] : [id number] Pending 06/16/2017 Care Plan: ASSAY THYROID STIM HORMONE Pen ding 06/16/2017 Care Plan: ASSAY OF FREE THYROXINE Pendin g 06/16/2017 Care Plan: LIPID PANEL LOINC : 12336-8 Pending 06/16/2017 Care Plan: CBC Pending 06/16/2017 [...] J06.9 03/28/2017 Appointment: Alexandra Carroll WPtel: [phone] [id number] ACUTE ILLNESS 03/28/2017 Patient Education: Patient Medication Summary Completed 03/28/2017 Visit Diagnosis Plan: Acute sinusitis, unspecified Dis cussion: cefdinir and medrol dose pack prescribed to be taken as directed. tylenol/ibuprofen as needed. educated on importance of taking singulair or zyrtec daily to prevent worsening symptoms. keep hydrated. ICD-9 : 461.9 ICD-10 : J01.90 02/16/2017 Appointment: Vandana Crowe [address] [place] [address] ACUTE ILLNESS 02/16/2017 Patient Education: Patient Medication Summary Completed 02/16/2017 Appointment: Alexandra Carroll WPtel: [address] [place] [address] INJECTION 11/02/2016 Patient Education: Patient Medication Summary Completed 11/02/2016 Visit Diagnosis Plan: Pain in thoracic spine Discussio n: Increase flexeril to 10mg po BID Add Mobic 15mg po daily Towel stretch May see chiropractor to adjust ribs Notify if persists or worsening ICD-9 : 724.1 ICD-10 : M54.6 09/06/2016 Appointment: Alexandra Carroll WPtel: [address] [place] [address] ACUTE ILLNESS 09/06/2016 Patient Education: Patient Medication Summary Completed 09/06/2016 Visit Plan: Due to hx, ERx Cefdinir and Prednisone (discussed risks for both) Given bottle for nasal saline rinses Tylenol/Ibuprofen prn pain/fever Fluids/rest Discussed s/s of worsening, RTC if no improvement 08/16/2016 Appointment: Vidya Manuel WPtel: [address] [place] [address] ACUTE ILLNESS 08/16/2016 Patient Education: Patient Medication [...] : F51.01 07/19/2016 Appointment: Alexandra Carroll WPtel: [address] [place] [address] 07/15 confirmed`sl FOLLOW UP 07/19/2016 Patient Education: [...] : G47.33 07/06/2016 Appointment: Alexandra Carroll WPtel: [phone] [facility] 07/05 confirmed-sp FOLLOW UP 07/06/2016 Patient Education: [...] : J30.1 06/15/2016 Appointment: Alexandra Carroll WPtel: [facility] 06/14 lm ~sl ACUTE ILLNESS 06/15/2016 Patient Education: Patient Medication Summary Completed 06/15/2016 Visit Diagnosis Plan: Migraine, unspecif ied, not intractable, without status migrainosus Discussion: Injection as above Drink ple nty of water No driving x 6 hours Rest No OTC nsaids today Follow up PRN Refill called of claritin-d ICD-9 : 346.90 ICD-10 : G43.909 04/09/2016 Appointment: Nae Mckay [address] [place], [place] [id number] ACUTE ILLNESS 04/09/2016 Patient Education: Patient Medication [...] : E78.2 03/17/2016 Appointment: Alexandra Carroll WPtel: [address] [place], [place] [phone] 03/16 nvm~sl 03/17 confirmed`sl FOLLOW UP 0 03/17/2016 Patient Education: Patient Medication Summary Completed 03/17/2016 Appointment: Alexandra Carroll WPtel: [address] [place], [place] [id number] [place] 03/11 lm~sl 03/15lm `sl 03/15 confirmed`sl [...] same robert. If working well, continue the n2kfxgu office visits. Call if not working well, and will restart xanax at for sleep. 11/13/2015 Appointment: Nae Mckay [address] [place], [place] [id number] 11/11 confirmed~sl FOLLOW UP 11/13/2015 Patient Education: Patient Medication Summary Completed 11/13/2015 Appointment: Alexandra Carroll WPtel: [address] [place], [place] [phone] Suture Removal 06/23/2015 Patient Education: Patient Medication Summary Completed 06/23/2015 Visit Plan: Removal of lesion above usin g 3-0 punch biopsy Return in 10 days for suture removal 06/12/2015 Appointment: Alexandra Carroll WPtel: [address] [place], [place] [phone] 06/10 lm ~sl ACUTE ILLNESS 06/12/2015 Patient Education: Patient Medication Summary Completed 06/12/2015 Referral: [facility] [address] Schedule patient around lunch time and 3 weeks from 04/22/2015 ~ Spoke with Kiesha at Dr. Sandoval Office and 04/24/15 and scheduled the patient ~sl 04/24/15 Patient is informed~ 06/03 Patient canceled the appointment ~ Patient did not show up for scheduled appointment-sp Appoint ment Requested 05/21/2015 Appointment: Alexandra Carroll WPtel: [address] [place], [place] [phone] UA 05/05/2015 Patient Education: Patient Medication Summary Completed 05/05/2015 Visit Plan: Starts PT today Schedule wit h Dr. Garcia for epidural CT abdomen/pelvis results discussed Sees POOL CLEANER in April and will get checked then 04/22/2015 Appointment: Alexandra Carroll WPtel: [address] [place], [place] [phone] 04/21 confirmed~lb ACUTE ILLNESS 04/22/2015 Patient Education: Patient Medication Summary Completed 04/22/2015 Referral: Lincoln Hernandez WPtel: [address] [place] [address] Referral Initiated 04/10/2015 Patient Education: Patient Medication Summary Completed 04/09/2015 Visit Plan: Start with lumosacral spine x-ray--will likely need MRI of L/S spine x-ray Needs urology--has had to have bladder stretched in past Tivorbex 03/24/2015 Appointment: Alexandra Carroll WPtel: [address] [place], [place] [phone] 03/21/15 appt confirmed cn ACUTE ILLNESS 03/24 Patient Education: Patient Medication Summary Completed 03/24/2015 Visit Plan: Saline nasal flushes prn. Ty lenol/Motrin prn headache. Notify if persists/symptoms worsening. Cefuroxime to cover both sinuses and UTI Culture urine Check lab 02/27/2015 Appointment: Alexandra Carroll WPtel: [address] [place], [place] [phone] 02/26/15 vm to confirm and need new insu meri on file is inactive cn....02/27/15 appt confirmed cn ACUTE ILLNESS 015 Patient Education: Patient Medication Summary Completed 02/27/2015 Visit Plan: Lab discussed Stop simvastat in Check lipids in 6mos Continue all other meds at current dose Had Pap and Mammo 3 weeks ago 06/13/2014 Appointment: Alexandra Carroll WPtel: [address] [place] [address] Annual Well Visit 06/13/2014 Patient Education: Patient Medication Summary Completed 06/13/2014 Appointment: Shalini Walters WPtel: [address] [place] [address] ACUTE ILLNESS 04/18/2014 Patient Education: Patient Medication Summary Completed 04/18/2014 Visit Plan: Check lab in May then fwup Can try decreasing xanax to 1mg q HS with melatonin 5-10mg q HS 12/05/2013 Appointment: Alexandra Carroll WPtel: [address] [place], [place] [phone] 12/04 FOLLOW UP 12/05/2013 Patient Education: Patient Medication Summary Completed 12/05/2013 Appointment: Alexandra Carroll WPtel: [address] [place], [place] [phone] FOLLOW UP 06/05/2013 Patient Education: Patient Medication Summary Completed 06/05/2013 Appointment: Alexandra Carroll WPtel: [address] [place] [address] FOLLOW UP 05/22/2013 Patient Education: Patient Medication Summary Completed 05/22/2013 Visit Plan: Zovirax for 2wks Notify if p ain worsens or if persists 04/05/2013 Appointment: Alexandra Carroll WPtel: [address] [place] [address] ACUTE ILLNESS 04/05/2013 Patient Education: Patient Medication Summary Completed 04/05/2013 Visit Plan: Keep Wellbutrin at current d ose 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 see transformer tester for counseling 03/26/2013 Appointment: Alexandra Carroll WPtel: [address] [place] [address] ACUTE ILLNESS 03/26/2013 Patient Education: Patient Medication Summary Completed 03/26/2013 Visit Plan: Continue citalopram at curre nt dose Increase xanax to 1-2mg q HS for sleep Add Wellbutrin Sr 100mg q AM Start Counseling 03/06/2013 Appointment: Alexandra Carroll WPtel: [address] [place] [address] ACUTE ILLNESS 03/06/2013 Patient Education: Patient Medication Summary Completed 03/06/2013 Appointment: Alexandra Carroll WPtel: [address] [place] [address] ACUTE ILLNESS 11/29/2012 Patient Education: Patient Medication Summary Completed 11/29/2012 Appointment: Alexandra Carroll WPtel: [address] [place] [address] ACUTE ILLNESS 09/26/2012 Patient Education: Patient Medication Summary Completed 09/26/2012 Appointment: Alexandra Carroll WPtel: [address] [place] [address] ACUTE ILLNESS 07/11/2012 Patient Education: Patient Medication Summary Completed 07/11/2012 Appointment: Alexandra Carroll WPtel: [address] [place], [place] [phone] [place] LAB 02/17/2012 Patient Education: Patient Medication Summary Completed 02/17/2012 Visit Plan: Check fasting lab Start annie y ca with Vit D Cont CPAP Mammo up-to-date Hemoccult card given 02/02/2012 Appointment: Alexandra Carroll WPtel: [address] [place] [address] PHYSICAL 02/02/2012 Patient Education: Patient Medication Summary Completed 02/02/2012 Appointment: Alexandra Carroll WPtel: [address] [place] [address] UA 08/27/2011 Patient Education: Patient Medication Summary Completed 08/27/2011 Visit Plan: Levaquin and Diflucan for 1w k Then cipro QOD for prophylaxis 08/17/2011 Appointment: Alexandra Carroll WPtel: [address] [place] [address] FOLLOW UP 08/17/2011 Patient Education: Patient Medication Summary Completed 08/17/2011 Appointment: Alexandra Carroll WPtel: [address] [place] [address] UA 12/28/2010 Patient Education: Patient Medication Summary Completed 12/28/2010 Appointment: Alexandra Carroll WPtel: [address] [place] [address] UA 11/09/2010 Patient Education: Patient Medication Summary Completed 11/09/2010 Appointment: Alexandra Carroll WPtel: [address] [place] [address] UA 10/29/2010 Patient Education: Patient Medication Summary Completed 10/29/2010 Appointment: Steph Bowen WPtel: [address] [place] [address] ACUTE ILLNESS 10/14/2010 Patient Education: Patient Medication Summary Completed 10/14/2010 Referral: Florian Baig WPtel: [facility] [address], [facility] [address] [id number] [place] Referral Initiated Referral: Paulo Albert WPtel: [id number] [place] Referral Appointment Requested Referral: Luis Enrique Jasso WPtel: [facility] [address] Referral Appointment Requested Referral: Florian Baig WPtel: [facility] [address] [place] Referral Appointment Requested Referral: Caleb Glaser WPtel: [id number] [place] Referral Appointment Requested Referral: Florian Baig WPtel: [facility] [address], [id number] [place] Referral Initiated Referral: Florian Baig WPtel: [facility] [address] [place] Referral Appointment Requested Instructions Comment [...] same robert. If working well, continue the [id number] office visits. Call if not working well, and will restart xanax at for sleep. . Removal of lesion above using 3-0 punc h biopsy Return in 10 days for suture removal . Starts PT today Schedule with Dr. Garcia for epidural CT abdomen/pelvis results discussed Sees POOL CLEANER in April and will get checked then [...]
--- OUTSIDE RECORDS SUMMARY | 2019-09-02 00:23 | XMS REPORT | CCD ---
Author Author Ilda Bowen APRN Organization [facility] Address [address] [place] [address] Phone Care Team Providers Care Enterprise Integration Developer Name Role Phone Alexandra Carroll D.O., PP Unavailable CCM Unavailable Summary Purpose Interface Exchange Insurance Providers Payer name Policy type / Coverage type Covered alliance party ID Effective Begin Date Effective End Date WPS MEDICARE PART B [place] Part B [id number] Unknown [employer] [place] Medicare Part B [id number] Unknown Family History Family History data not found Social History Social History Element Codes Description Effective Dates Tobacco history SNOMED CT: 362237734 Nonsmoker 10/14/2010 Allergies, Adverse Reactions, Alerts Substance [...] Fill Instructions prednisone 20 mg tablet RxNorm: 986317 1 Tablet(s) Oral two harlan es a day 06/26/2019 07/03/2019 Active Amabelz 1 mg-0.5 mg tablet RxNorm: 7543275 1 Tablet(s) Oral QD 05/30 No Stop Date Active Trazadone 150 mg Tablet RxNorm: 1 Tablet(s) Oral every n ight at bedtime 05/14/2019 No Stop Date Active Levaquin 500 mg tablet RxNorm: 197850 1 Tablet(s) Oral QD 05/14/2019 05/21/2019 Inactive Xanax 1 mg tablet RxNorm: 486300 1-2 Tablet(s) Oral e very night at bedtime as needed for sleep 05/03/2019 06/01/2019 Inactive Generic For:LAVELLE AX 1MG 10/11/2016 11:15:13 AM cyclobenzaprine 10 mg tablet RxNorm: 452922 1 Tablet(s) Oral three times a day as needed for muscle spasm 02/12/2019 02/12/2019 Inactive Xanax 1 mg tablet RxNorm: 177108 1-2 Tablet(s) Oral e very night at bedtime as needed for sleep 02/09/2019 03/10/2019 Inactive Generic For:LAVELLE AX 1MG 10/11/2016 11:15:13 AM Xanax 1 mg tablet RxNorm: 345159 1-2 Tablet(s) Oral e very night at bedtime as needed for sleep 01/22/2019 02/08/2019 Inactive Generic For:LAVELLE AX 1MG 10/11/2016 11:15:13 AM Celexa 40 mg tablet RxNorm: 566997 1 Tablet(s) Oral QD 01/17/2019 Active - First Attempt Ref: [id number] Xanax 1 mg tablet RxNorm: 930276 1 Tablet(s) Oral every night a t bedtime 01/08/2019 01/21/2019 Inactive levothyroxine 88 mcg tablet RxNorm: 649972 TAKE 1 TABLET BY NINA TH DAILY 12/19/2018 06/16/2019 Inactive - First Attempt Ref: [id number] Xanax 1 mg tablet RxNorm: 603731 1 Tablet(s) Oral every night a t bedtime 12/06/2018 01/05/2019 Inactive Singulair 10 mg tablet RxNorm: 209052 1 Tablet(s) Oral every ni ght at bedtime 11/23/2018 11/17/2019 Active - First Attempt Ref: [id number] Celexa 40 mg tablet RxNorm: 070514 1 Tablet(s) Oral 11/23/20182018 Inactive - First Attempt Ref: 104988392 cyclobenzaprine 10 mg tablet RxNorm: 324524 1 Tablet(s) Oral three times a day as needed for muscle spasm 11/23/2018 02/11/2019 Inactive Xanax 1 mg tablet RxNorm: 481203 1 Tablet(s) PO QHS 11/06/20182018 Inactive Xanax 1 mg tablet RxNorm: 098468 1 Tablet(s) PO QHS 09/26/20182018 Inactive Singulair 10 mg tablet RxNorm: 461835 TAKE 1 TABLET BY MOUTH EVERY NIGHT AT BEDTIME 08/16/2018 11/22/2018 Inactive - First Attempt Ref: [id number] Xanax 1 mg tablet RxNorm: 989791 1 Tablet(s) PO QHS 08/01/20182018 Inactive levothyroxine 88 mcg tablet RxNorm: 630936 TAKE 1 TABLET BY NINA DAILY 07/31/2018 12/18/2018 Inactive - First Attempt Ref: [id number] Celexa 40 mg tablet RxNorm: 677040 TAKE 1 TABLET BY MOUTH DAILY 04/201811/22/2018 Inactive - First Attempt Ref: 6995800 54 bupropion HCl SR 100 mg tablet,12 hr sustained-release RxNor m: 664962 1 Tablet(s) PO BID 07/12/2018 07/06/2019 Active - Ref: [id number] 7 Claritin-D 24 Hour 10 mg-240 mg tablet,extended release RxNo rm: 6735645 1 Tablet(s) PO QD 06/29/2018 2018 Inactive Claritin-D 24 Hour 10 mg-240 mg tablet,extended release RxNo rm: 1644861 1 Tablet(s) PO QD 06/29/2018 2018 Inactive Xanax 1 mg tablet RxNorm: 947155 1-2 Tablet(s) PO QHS as needed for sleep 05/26/2018 06/23/2018 Inactive Generic For:XANAX 1M G 10/11/2016 11:15:13 AM Xanax 1 mg tablet RxNorm: 901016 1-2 Tablet(s) PO QHS as needed for sleep 03/28/2018 05/25/2018 Inactive Generic For:XANAX 1M G 10/11/2016 11:15:13 AM Macrobid 100 mg capsule RxNorm: 836409 1 Capsule(s) PO BID 03/27/1903/31/2018 Inactive gabapentin 300 mg capsule RxNorm: 059115 1 Capsule(s) PO QHS 201703/26/2018 Inactive Claritin-D 24 Hour 10 mg-240 mg tablet,extended release RxNo rm: 8208185 1 Tablet(s) PO QD 01/26/2018 02/24/2018 Inactive gabapentin 100 mg capsule RxNorm: 181623 1 Capsule(s) P O QHS for 1 week then 2 po q HS for 2 weeks then 3 po q HS 01/24/2018 03/26/2018 Inactive Xanax 1 mg tablet RxNorm: 017860 1-2 Tablet(s) PO QHS as needed for sleep 01/24/2018 03/24/2018 Inactive Generic For:XANAX 1M G 10/11/2016 11:15:13 AM prednisone 20 mg tablet RxNorm: 803889 1 Tablet(s) PO T ID for 3 days then 1 po BID for 3 days then one daily for 3 days 12/29/2017 03/26/2018 Inactiv e prednisone 20 mg tablet RxNorm: 130704 3 Tablet(s) PO T ID for 3 days then 1 po BID for 3 days then one daily for 3 days 12/29/2017 12/29/2017 Inactiv e Macrobid 100 mg capsule RxNorm: 431456 1 Capsule(s) PO BID 12/30/19 18 01/02/2018 Inactive Xanax 1 mg tablet RxNorm: 314758 1-2 Tablet(s) PO QHS as needed for sleep 12/28/2017 01/23/2018 Inactive Generic For:XANAX 1M G 10/11/2016 11:15:13 AM Medrol (Walter) 4 mg tablets in a dose pack RxNorm: 715556 Tablet(s) PO take as directed 12/01/2017 03/26/2018 Inactive Keflex 750 mg capsule RxNorm: 243715 1 Capsule(s) PO BID 12/01/2017 1 Inactive clindamycin HCl 300 mg capsule RxNorm: 868732 2 Capsule(s) PO TID 1 12/08/2017 Inactive Xanax 1 mg tablet RxNorm: 660748 1-2 Tablet(s) PO QHS as needed for sleep 11/28/2017 12/27/2017 Inactive Generic For:XANAX 1M G 10/11/2016 11:15:13 AM mupirocin 2 % topical ointment RxNorm: 398059 1 Application OTIC BI D 11/28/2017 08/09/2018 Inactive Xanax 1 mg tablet RxNorm: 128153 1-2 Tablet(s) PO QHS as needed for sleep 10/27/2017 11/25/2017 Inactive Generic For:XANAX 1M G 10/11/2016 11:15:13 AM Macrobid 100 mg capsule RxNorm: 888499 1 Capsule(s) PO BID 10/11/19 18 10/16/2017 Inactive Medrol (Walter) 4 mg tablets in a dose pack RxNorm: 729276 Tablet(s) PO take as directed 10/10/2017 11/16/2017 Inactive Xanax 1 mg tablet RxNorm: 022907 1-2 Tablet(s) PO QHS as needed for sleep 09/28/2017 10/26/2017 Inactive Generic For:XANAX 1M G 10/11/2016 11:15:13 AM Xanax 1 mg tablet RxNorm: 576564 1-2 Tablet(s) PO QHS as needed for sleep 08/30/2017 09/27/2017 Inactive Generic For:XANAX 1M G 10/11/2016 11:15:13 AM Xanax 1 mg tablet RxNorm: 619843 1-2 Tablet(s) PO QHS as needed for sleep 08/30/2017 08/29/2017 Inactive Generic For:XANAX 1M G 10/11/2016 11:15:13 AM Xanax 1 mg tablet RxNorm: 699752 1-2 Tablet(s) PO QHS as needed for sleep 08/01/2017 08/29/2017 Inactive Generic For:XANAX 1M G 10/11/2016 11:15:13 AM Xanax 1 mg tablet RxNorm: 135062 1-2 Tablet(s) PO QHS as needed for sleep 06/29/2017 2017 Inactive Generic For:XANAX 1M G 10/11/2016 11:15:13 AM Claritin-D 24 Hour 10 mg-240 mg tablet,extended release RxNo rm: 3949679 1 Tablet(s) PO QD 06/29/2017 2017 Inactive levothyroxine 88 mcg tablet RxNorm: 489493 1 Tablet(s) PO QD 201709/10/2017 Inactive Xanax 1 mg tablet RxNorm: 744996 1-2 Tablet(s) PO QHS as needed for sleep 05/26/2017 06/28/2017 Inactive Generic For:XANAX 1M G 10/11/2016 11:15:13 AM Claritin-D 24 Hour 10 mg-240 mg tablet,extended release RxNo rm: 2125421 1 Tablet(s) PO QD 05/26/2017 06/24/2017 Inactive bupropion HCl SR 100 mg tablet,12 hr sustained-release RxNor m: 964508 Tablet(s) Take 1 tablet by mouth two times daily 04/06/2017 12/31/2017 Inactive - Ref: [id number] Xanax 1 mg tablet RxNorm: 630447 1-2 Tablet(s) PO QHS as needed for sleep 03/24/2017 05/22/2017 Inactive Generic For:XANAX 1M G 10/11/2016 11:15:13 AM Medrol (Walter) 4 mg tablets in a dose pack RxNorm: 249957 Tablet(s) P O 02/16/2017 03/27/2017 Inactive Xanax 1 mg tablet RxNorm: 509396 Tablet(s) TAKE ONE T O TWO TABLETS BY MOUTH AT BEDTIME NEEDED 02/16/2017 03/17/2017 Inactive Generic For:XA NAX 1MG 10/11/2016 11:15:13 AM Claritin-D 24 Hour 10 mg-240 mg tablet,extended release RxNo rm: 8796725 1 Tablet(s) PO QD 02/16/2017 04/16/2017 Inactive cefdinir 300 mg capsule RxNorm: 442570 2 Capsule(s) PO QD 02/16/2017 02/25/2017 Inactive Celexa 40 mg tablet RxNorm: 245901 Tablet(s) Take 1 tablet by m outh daily 12/23/2016 09/18/2017 Inactive - Ref: [id number] Xanax 1 mg tablet RxNorm: 626223 Tablet(s) TAKE ONE T O TWO TABLETS BY MOUTH AT BEDTIME NEEDED 12/16/2016 01/14/2017 Inactive Generic For:XA NAX 1MG 10/11/2016 11:15:13 AM Xanax 1 mg tablet RxNorm: 218396 Tablet(s) TAKE ONE T O TWO TABLETS BY MOUTH AT BEDTIME NEEDED 11/18/2016 12/15/2016 Inactive Generic For:XA NAX 1MG 10/11/2016 11:15:13 AM Xanax 1 mg tablet RxNorm: 538627 TAKE ONE TO TWO TABL ETS BY MOUTH AT BEDTIME NEEDED 10/11/2016 11/17/2016 Inactive Generic For:XANA X 1MG 10/11/2016 11:15:13 AM Mobic 15 mg tablet RxNorm: 249116 1 Tablet(s) PO QD 09/06/20162016 Inactive Claritin-D 24 Hour 10 mg-240 mg tablet,extended release RxNo rm: 4815780 1 Tablet(s) PO QD 09/02/2016 11/30/2016 Inactive prednisone 20 mg tablet RxNorm: 584974 1 Tablet(s) PO T ID for 3 days then 1 po BID for 3 days then one daily for 3 days 08/16/2016 03/27/2017 Inactiv e cefdinir 300 mg capsule RxNorm: 446704 2 Capsule(s) PO QD 08/16/2016 09/05/2016 Inactive Xanax 1 mg tablet RxNorm: 242488 TAKE ONE TO TWO TABL ETS BY MOUTH AT BEDTIME NEEDED 08/05/2016 10/11/2016 Inactive Generic For:XANA X 1MG 08/05/2016 2:27:03 PM08/04/2016 4:15:22 PM Singulair 10 mg tablet RxNorm: 843905 1 Tablet(s) PO QHS 07/06/2016 0 09/03/2016 Inactive prednisone 20 mg tablet RxNorm: 376162 1 Tablet(s) PO T ID for 3 days then 1 po BID for 3 days then one daily for 3 days 06/15/2016 07/05/2016 Inactiv e Singulair 10 mg tablet RxNorm: 006139 1 Tablet(s) PO QHS 06/15/2016 0 07/05/2016 Inactive cefdinir 300 mg capsule RxNorm: 008427 2 Capsule(s) PO QD 06/15/2016 07/05/2016 Inactive Xanax 1 mg tablet RxNorm: 707308 1-2 Tablet(s) PO QHS 05/21/201610/2016 Inactive Claritin-D 24 Hour 10 mg-240 mg tablet,extended release RxNo rm: 3778353 1 Tablet(s) PO QD 04/09/2016 07/07/2016 Inactive Xanax 1 mg tablet RxNorm: 348789 1-2 Tablet(s) PO QHS 03/23/201604/29 Inactive levothyroxine 88 mcg tablet RxNorm: 969024 1 Tablet(s) PO QD 201606/13/2017 Inactive bupropion HCl SR 100 mg tablet,sustained-release RxNorm: 993 503 Take 1 tablet by mouth two times daily 03/15/2016 12/09/2016 Inactive - Ref: 20 8327164 Celexa 40 mg tablet RxNorm: 724864 Take 1 tablet by mouth daily 12/23/2016 Inactive - Ref: 917194611 Xanax 1 mg tablet RxNorm: 033953 1-2 Tablet(s) PO QHS 02/17/201603/01 Inactive levothyroxine 88 mcg tablet RxNorm: 939733 1 Tablet(s) PO QD 201502/22/2016 Inactive Xanax 1 mg tablet RxNorm: 811637 1-2 Tablet(s) PO QHS 11/25/201511/29 Inactive levothyroxine 88 mcg tablet RxNorm: 312035 1 Tablet(s) PO QD 201511/24/2015 Inactive temazepam 30 mg capsule RxNorm: 593070 1 Capsule(s) PO QHS 11/13/19 16 11/24/2015 Inactive Xanax 1 mg tablet RxNorm: 527898 1-2 Tablet(s) PO QHS 09/15/201510/29 Inactive Celexa 40 mg tablet RxNorm: 842793 1 Tablet(s) PO QD 1 Tablet(s ) PO QD 09/10/2015 09/16/2015 Inactive bupropion HCl SR 100 mg tablet,sustained-release RxNorm: 993 503 1 Tablet(s) PO BID 09/10/2015 09/23/2015 Inactive Xanax 1 mg tablet RxNorm: 315606 1-2 Tablet(s) PO QHS 09/10/201508/28 Inactive Xanax 1 mg tablet RxNorm: 086347 1-2 Tablet(s) PO QHS 08/11/201508/28 Inactive cyclobenzaprine 10 mg tablet RxNorm: 322711 1 Tablet(s) PO TID prn spasm 07/09/2015 11/23/2018 Inactive Celexa 40 mg tablet RxNorm: 955801 1 Tablet(s) PO QD 06/06/201508/03 Inactive Xanax 1 mg tablet RxNorm: 345238 1-2 Tablet(s) PO QHS 06/04/201505/2015 Inactive levothyroxine 88 mcg tablet RxNorm: 681770 1 Tablet(s) PO QD 201511/23/2015 Inactive Ceftin 500 mg tablet RxNorm: 806715 1 Tablet(s) PO BID 05/05/2015 Inactive Ceftin 500 mg tablet RxNorm: 474743 1 Tablet(s) PO BID 05/05/201507/2015 Inactive meloxicam 15 mg tablet RxNorm: 794141 1 Tablet(s) PO QD 04/16/2015 Inactive meloxicam 15 mg tablet RxNorm: 812471 1 Tablet(s) PO QD 04/16/2015 Inactive diclofenac sodium 75 mg tablet,delayed release RxNorm: 43209 6 1 Tablet(s) PO BID 04/04/2015 04/15/2015 Inactive diclofenac sodium 75 mg tablet,delayed release RxNorm: 05590 6 1 Tablet(s) PO BID 04/04/2015 04/03/2015 Inactive Tivorbex 40 mg capsule RxNorm: 6902642 1 Capsule(s) PO TID 03/24/1904/02/2015 Inactive bupropion HCl SR 100 mg tablet,sustained-release RxNorm: 993 503 1 Tablet(s) PO BID 03/11/2015 09/06/2015 Inactive cyclobenzaprine 10 mg tablet RxNorm: 915174 1 Tablet(s) PO TID prn spasm 03/11/2015 07/08/2015 Inactive levothyroxine 88 mcg tablet RxNorm: 749528 1 Tablet(s) PO QD 201405/27/2015 Inactive Claritin-D 24 Hour 10 mg-240 mg tablet,extended release RxNo rm: 2431919 1 Tablet(s) PO QD 02/27/2015 05/27/2015 Inactive cefuroxime axetil 500 mg tablet RxNorm: 101035 1 Tablet(s) PO BID 1 03/12/2015 Inactive Celexa 40 mg tablet RxNorm: 326321 1 Tablet(s) PO QD 02/05/201504/05 Inactive levothyroxine 75 mcg tablet RxNorm: 232261 1 Tablet(s) PO QD 201402/26/2015 Inactive Celexa 40 mg tablet RxNorm: 213259 1 Tablet(s) PO QD 10/09/201402/04 Inactive Activella 1 mg-0.5 mg tablet RxNorm: 9465232 1 Tablet(s) PO QD 08/2802/26/2015 Inactive bupropion HCl SR 100 mg tablet,sustained-release RxNorm: 993 503 1 Tablet(s) PO BID 09/12/2014 03/10/2015 Inactive levothyroxine 75 mcg tablet RxNorm: 578633 1 Tablet(s) PO QD 201412/09/2014 Inactive levothyroxine 75 mcg tablet RxNorm: 901244 1 Tablet(s) PO QD 201409/11/2014 Inactive Celexa 40 mg tablet RxNorm: 415739 1 Tablet(s) PO QD 08/12/201410/08 Inactive Xanax 1 mg tablet RxNorm: 819792 1-2 Tablet(s) PO QHS 08/12/201409/28 Inactive Claritin-D 24 Hour 10 mg-240 mg tablet,extended release RxNo rm: 7462730 1 Tablet(s) PO QD 06/13/2014 09/10/2014 Inactive cyclobenzaprine 10 mg tablet RxNorm: 743078 1 Tablet(s) PO TID prn spasm 06/12/2014 02/26/2015 Inactive Xanax 1 mg tablet RxNorm: 373523 1-2 Tablet(s) PO QHS 05/09/201406/28 Inactive levothyroxine 75 mcg tablet RxNorm: 791859 1 Tablet(s) PO QD 201407/08/2014 Inactive cephalexin 500 mg capsule RxNorm: 780491 1 Capsule(s) PO QOD 201402/26/2015 Inactive simvastatin 10 mg tablet RxNorm: 632073 1 Tablet(s) PO QHS 04/10/19 15 06/12/2014 Inactive Xanax 1 mg tablet RxNorm: 649822 1-2 Tablet(s) PO QHS 04/10/201404/28 Inactive levothyroxine 75 mcg tablet RxNorm: 041330 1 Tablet(s) PO QD 201404/09/2014 Inactive levothyroxine 75 mcg capsule RxNorm: 939932 1 Capsule(s) PO QD 03/3104/10/2014 Inactive Activella 1 mg-0.5 mg tablet RxNorm: 5480913 1 Tablet(s) PO QD 03/0109/11/2014 Inactive bupropion HCl SR 100 mg tablet,sustained-release RxNorm: 993 503 1 Tablet(s) PO BID 03/04/2014 08/30/2014 Inactive Activella 1 mg-0.5 mg tablet RxNorm: 6372081 1 Tablet(s) PO QD 01/2803/18/2014 Inactive levothyroxine 75 mcg capsule RxNorm: 423961 1 Capsule(s) PO QD 12/2904/08/2014 Inactive simvastatin 10 mg tablet RxNorm: 050205 1 Tablet(s) PO QHS 01/10/20 14 04/08/2014 Inactive cyclobenzaprine 10 mg tablet RxNorm: 133913 1 Tablet(s) PO TID prn spasm 01/09/2014 04/08/2014 Inactive Cipro 500 mg tablet RxNorm: 067794 1 Tablet(s) PO BID 12/25/201304/2013 Inactive Cipro 500 mg tablet RxNorm: 335980 1 Tablet(s) PO BID 12/25/201311/29 Inactive bupropion HCl SR 100 mg tablet,sustained-release RxNorm: 993 503 1 Tablet(s) PO QAM 12/11/2013 03/03/2014 Inactive cephalexin 500 mg capsule RxNorm: 764777 1 Capsule(s) PO QOD 201304/09/2014 Inactive Xanax 1 mg tablet RxNorm: 194323 1-2 Tablet(s) PO QHS 10/15/201310/29 Inactive simvastatin 10 mg tablet RxNorm: 203793 1 Tablet(s) PO QHS 10/11/19 14 01/07/2014 Inactive Celexa 40 mg tablet RxNorm: 720059 Tablet(s) PO TAKE 1 TABLET BY MOUTH ONCE DAILY. 09/18/2013 09/17/2013 Inactive Xanax 1 mg tablet RxNorm: 550221 1-2 Tablet(s) PO QHS 08/13/201308/28 Inactive simvastatin 10 mg tablet RxNorm: 748008 1 Tablet(s) PO QHS 07/12/19 14 10/08/2013 Inactive bupropion HCl SR 100 mg tablet,sustained-release RxNorm: 993 503 1 Tablet(s) PO QAM 05/22/2013 11/17/2013 Inactive Pamelor 10 mg capsule RxNorm: 708652 1 Capsule(s) PO QHS for PLATA /sleep 05/22/2013 06/04/2013 Inactive Xanax 1 mg tablet RxNorm: 006126 1-2 Tablet(s) PO QHS 05/15/201305/29 Inactive Pamelor 10 mg capsule RxNorm: 090931 1 Capsule(s) PO QHS for PLATA /sleep 05/15/2013 05/21/2013 Inactive Xanax 1 mg tablet RxNorm: 314583 1 Tablet(s) PO QHS 04/27/20132013 Inactive Zovirax 800 mg tablet RxNorm: 408196 1 Tablet(s) PO TID 04/05/2013 Inactive Xanax 1 mg tablet RxNorm: 747594 1 Tablet(s) PO QHS 04/03/2013 No Sto p Date Active bupropion HCl SR 100 mg tablet,sustained-release RxNorm: 993 503 1 Tablet(s) PO QAM 03/26/2013 05/21/2013 Inactive bupropion HCl SR 100 mg tablet,sustained-release RxNorm: 993 503 1 Tablet(s) PO QAM 03/06/2013 03/25/2013 Inactive Pamelor 10 mg capsule RxNorm: 425422 1 Capsule(s) PO QHS for PLATA /sleep 02/14/2013 05/14/2013 Inactive levothyroxine 75 mcg capsule RxNorm: 752197 1 Capsule(s) PO QD 12/2901/08/2014 Inactive simvastatin 10 mg tablet RxNorm: 787854 1 Tablet(s) PO QHS TAKE 1 TABLET BY MOUTH ONCE DAILY AT BEDTIME. 01/15/2013 07/10/2013 Inactive cyclobenzaprine 10 mg tablet RxNorm: 581473 1 Tablet(s) PO TID prn spasm 12/25/2012 06/22/2013 Inactive Pamelor 10 mg capsule RxNorm: 380425 1 Capsule(s) PO QHS for PLATA /sleep 11/29/2012 02/14/2013 Inactive Celexa 40 mg tablet RxNorm: 063207 Tablet(s) PO TAKE 1 TABLET BY MOUTH ONCE DAILY. 10/11/2012 09/17/2013 Inactive simvastatin 10 mg tablet RxNorm: 343862 Tablet(s) PO TA KE 1 TABLET BY MOUTH ONCE DAILY AT BEDTIME. 10/11/2012 01/14/2013 Inactive simvastatin 10 mg tablet RxNorm: 154977 1 Tablet(s) PO QD 07/11/2012 10/08/2012 Inactive simvastatin 10 mg tablet RxNorm: 539634 1 Tablet(s) PO QD 04/14/2012 07/11/2012 Inactive simvastatin 10 mg tablet RxNorm: 351558 1 Tablet(s) PO QD 04/14/2012 04/13/2012 Inactive Celexa 40 mg tablet RxNorm: 726269 1 Tablet(s) PO QD 03/15/201209/10 Inactive cyclobenzaprine 10 mg tablet RxNorm: 798798 1 Tablet(s) PO TID prn spasm 02/02/2012 02/01/2012 Inactive cyclobenzaprine 10 mg tablet RxNorm: 911680 1 Tablet(s) PO TID prn spasm 02/02/2012 07/30/2012 Inactive Diflucan 100 mg Tab RxNorm: 155652 1 Tablet(s) PO QD 08/17/201108/22 Inactive Cipro 250 mg Tab RxNorm: 156913 1 Tablet(s) PO QD 08/17/2011 10/15/19 12 Inactive Levaquin 500 mg Tab RxNorm: 213560 1 Tablet(s) PO QD 08/17/201108/22 Inactive Pyridium 200 mg Tab RxNorm: 4698040 1 Tablet(s) PO TID 10/14/2010 Inactive may turn urine orange-red color. Cipro 500 mg Tab RxNorm: 623356 1 Tablet(s) PO BID 10/14/2010 011 Inactive levothyroxine 75 mcg capsule RxNorm: 810006 1 Capsule(s) PO QD 12/3001/14/2011 Inactive Vitamin D3 5,000 unit tablet RxNorm: 544185 1 Tablet(s) PO QD No Star t Date Active Nasacort 55 mcg nasal spray aerosol RxNorm: 9264579 2 Sp ray NASAL each nostril QHS No Start Date Active cyclobenzaprine 10 mg tablet RxNorm: 773792 1 Tablet(s) PO TID as needed No Start Date 11/22/2018 Inactive Vitamin D2 1,000 unit capsule RxNorm: 937747 3 Capsule(s) PO QD No Start Date 11/16/2017 Inactive diclofenac sodium 75 mg tablet,delayed release RxNorm: 77726 6 1 Tablet(s) PO BID No Start Date 03/16/2016 Inactive cephalexin 500 mg capsule RxNorm: 131899 1 Capsule(s) PO QOD No Sta rt Date 12/04/2013 Inactive cyclobenzaprine 10 mg tablet RxNorm: 762827 1 Tablet(s) PO QHS No S tart Date 02/01/2012 Inactive loratadine 10 mg tablet RxNorm: 854767 1 Tablet(s) PO QHS No Start Date 05/14/2019 Inactive hydrocodone 5 mg-acetaminophen 500 mg tablet RxNorm: 448072 1 -2 Tablet(s) PO Q6H as needed No Start Date 08/09/2018 Inactive etodolac 400 mg tablet RxNorm: 003048 1 Tablet(s) PO TID No Start D ate 09/17/2018 Inactive Xanax 1 mg tablet RxNorm: 564473 1 Tablet(s) PO QHS No Start Date 04/2013 Inactive Vitamin D3 1,000 unit capsule RxNorm: 346994 1 Capsule(s) PO QD No Start Date 06/12/2014 Inactive estradiol 2 mg tablet RxNorm: 587291 1/2 Tablet(s) PO QD No Start D ate 03/05/2013 Inactive Celexa 40 mg tablet RxNorm: 847209 1 Tablet(s) PO QD No Start Date Inactive Activella 1 mg-0.5 mg tablet RxNorm: 9603210 1 Tablet(s) PO QD No S tart Date 07/10/2012 Inactive medroxyprogesterone 5 mg tablet RxNorm: 2416702 1/2 Tablet(s) PO QD No Start Date 03/05/2013 Inactive levothyroxine 88 mcg tablet RxNorm: 754566 1 Tablet(s) PO QD No Sta rt Date 02/26/2015 Inactive Keflex 500 mg capsule RxNorm: 336049 1 Capsule(s) PO PRN No Start D ate 08/16/2011 Inactive Activella 1 mg-0.5 mg tablet RxNorm: 7422244 1 Tablet(s) PO QHS No Start Date 03/27/2017 Inactive Activella 1 mg-0.5 mg tablet RxNorm: 9827524 1 Tablet(s) PO QD No S tart Date 02/06/2014 Inactive Flexeril 10 mg Tab RxNorm: 700854 1 Tablet(s) PO TID No Start Date Inactive prn spasm simvastatin 10 mg tablet RxNorm: 142411 1 Tablet(s) PO QD No Start Date 04/13/2012 Inactive Medication Administered No Medication Administered data Immunizations Vaccine Codes Date Status Influenza CVX: 135 01/16/2019 Complete Pneumococcal CVX: 133 01/16/2019 Complete Results No Results data Procedures Procedure Codes Date DEXAMETHASONE SODIUM PHOS CPT-4: J1100 05/14/2019 THER/PROPH/DIAG INJ SC/IM CPT-4: 36509 05/14/2019 TRIAMCINOLONE ACET INJ NOS CPT-4: J3301 05/14/2019 FLU VACC PRSV FREE INC ANTIG 65 AND OLDER CPT-4: 03184 01/16/2019 FLU VACC PRSV FREE INC ANTIG 65 AND OLDER CPT-4: 76219 01/16/2019 PNEUMOCOCCAL VACC 13 NARESH IM CPT-4: 40186 01/16/2019 SKIN FUNGI CULTURE CPT-4: 13495 01/16/2019 IMMUNIZATION ADMIN CPT-4: 11874 01/16/2019 IMMUNIZATION ADMIN EACH ADD CPT-4: 06168 01/16/2019 THER/PROPH/DIAG INJ SC/IM CPT-4: 59163 01/17/2018 KETOROLAC TROMETHAMINE INJ CPT-4: J1885 01/17/2018 THER/PROPH/DIAG INJ SC/IM CPT-4: 38388 01/17/2018 PROMETHAZINE HCL INJECTION CPT-4: J2550 01/17/2018 URINALYSIS NONAUTO W/O SCOPE CPT-4: 24097 12/29/2017 URINE CULTURE/ COLONY COUNT CPT-4: 12089 12/29/2017 THER/PROPH/DIAG INJ SC/IM CPT-4: 46161 11/30/2017 TRIAMCINOLONE ACET INJ NOS CPT-4: J3301 11/30/2017 DEXAMETHASONE SODIUM PHOS CPT-4: J1100 11/30/2017 CEFTRIAXONE SODIUM INJECTION CPT-4: J0696 11/29/2017 THER/PROPH/DIAG INJ SC/IM CPT-4: 98276 11/29/2017 CEFTRIAXONE SODIUM INJECTION CPT-4: J0696 11/28/2017 THER/PROPH/DIAG INJ SC/IM CPT-4: 08597 11/28/2017 URINALYSIS NONAUTO W/O SCOPE CPT-4: 83939 10/10/2017 THER/PROPH/DIAG INJ SC/IM CPT-4: 59907 10/10/2017 TRIAMCINOLONE ACET INJ NOS CPT-4: J3301 10/10/2017 DEXAMETHASONE SODIUM PHOS CPT-4: J1100 10/10/2017 CEFTRIAXONE SODIUM INJECTION CPT-4: J0696 10/10/2017 THER/PROPH/DIAG INJ SC/IM CPT-4: 68563 10/10/2017 URINE CULTURE/ COLONY COUNT CPT-4: 15719 10/10/2017 THER/PROPH/DIAG INJ SC/IM CPT-4: 36461 11/02/2016 KETOROLAC TROMETHAMINE INJ CPT-4: J1885 11/02/2016 THER/PROPH/DIAG INJ SC/IM CPT-4: 34016 06/15/2016 TRIAMCINOLONE ACET INJ NOS CPT-4: J3301 06/15/2016 DEXAMETHASONE SODIUM PHOS CPT-4: J1100 06/15/2016 THER/PROPH/DIAG INJ SC/IM CPT-4: 14698 04/09/2016 KETOROLAC TROMETHAMINE INJ CPT-4: J1885 04/09/2016 PROMETHAZINE HCL INJECTION CPT-4: J2550 04/09/2016 EXC TR-EXT B9+ERASMO 0.5 CM< CPT-4: 97733 06/12/2015 URINALYSIS NONAUTO W/O SCOPE CPT-4: 17796 05/05/2015 URINE CULTURE/ COLONY COUNT CPT-4: 98080 05/05/2015 URINALYSIS NONAUTO W/O SCOPE CPT-4: 67565 03/24/2015 URINALYSIS NONAUTO W/O SCOPE CPT-4: 81811 02/27/2015 URINE CULTURE/ COLONY COUNT CPT-4: 33407 02/27/2015 THER/PROPH/DIAG INJ SC/IM CPT-4: 22863 04/18/2014 KETOROLAC TROMETHAMINE INJ CPT-4: J1885 04/18/2014 THER/PROPH/DIAG INJ SC/IM CPT-4: 06442 06/05/2013 TRIAMCINOLONE ACET INJ NOS CPT-4: J3301 06/05/2013 THER/PROPH/DIAG INJ SC/IM CPT-4: 28523 11/29/2012 KETOROLAC TROMETHAMINE INJ CPT-4: J1885 11/29/2012 URINALYSIS NONAUTO W/O SCOPE CPT-4: 20235 07/11/2012 URINE CULTURE/ COLONY COUNT CPT-4: 45169 07/11/2012 OCCULT BLOOD FECES CPT-4: 16744 02/17/2012 URINALYSIS NONAUTO W/O SCOPE CPT-4: 31548 08/27/2011 URINE CULTURE/ COLONY COUNT CPT-4: 46196 08/27/2011 URINALYSIS NONAUTO W/O SCOPE CPT-4: 13943 08/17/2011 URINE CULTURE/ COLONY COUNT CPT-4: 10543 08/17/2011 URINALYSIS NONAUTO W/O SCOPE CPT-4: 65326 12/28/2010 URINE CULTURE/ COLONY COUNT CPT-4: 40892 12/28/2010 URINALYSIS NONAUTO W/O SCOPE CPT-4: 31776 11/09/2010 URINE CULTURE/ COLONY COUNT CPT-4: 04957 11/09/2010 URINALYSIS NONAUTO W/O SCOPE CPT-4: 19739 10/29/2010 URINE CULTURE/ COLONY COUNT CPT-4: 08177 10/29/2010 URINE CULTURE/ COLONY COUNT CPT-4: 36916 10/14/2010 URINALYSIS NONAUTO W/O SCOPE CPT-4: 43006 10/14/2010 Vital Signs Date Vital 06/26/2019 Blood [...] 1: 122/74 Code: 8480-6 BMI: 22.0 Code: 81511-5 Heart Rate 1: 72 bpm Height: 5'3" [...] 1: 126/72 Code: 8480-6 BMI: 22.7 Code: 87083-0 Heart Rate 1: 72 bpm Height: 5'3" [...] 1: 112/70 Code: 8480-6 BMI: 22.0 Code: 18973-2 Heart Rate 1: 80 bpm Height: 5'3" [...] 1: 122/64 Code: 8480-6 BMI: 21.4 Code: 22407-8 Heart Rate 1: 88 bpm Height: 5'3" Respiratory Rate: 22 bpm SpO2: 96% Tempera ture: 36.8 (C) / 98.2 (F) Weight: 121 lbs 06/22/2017 Blood Pressure 1: 124/78 Code: 8480-6 BMI: 21.6 Code: 81604-1 Heart Rate 1: 76 bpm Height: 5'3" Respiratory Rate: 20 bpm Temperature: 36 .8 (C) / 98.3 (F) Weight: 122 lbs 03/28/2017 Blood Pressure 1: 92/60 Code: 8480-6 BMI: 20.4 C ode: 37595-5 Heart Rate 1: 72 bpm Height: 5'3" Respiratory Rate: 20 bpm Temperature: 36 .9 (C) / 98.4 (F) Weight: 115 lbs 02/16/2017 Blood Pressure 1: 106/70 Code: 8480-6 BMI: 21.3 Code: 42127-0 Heart Rate 1: 82 bpm Height: 5'3" Respiratory Rate: 22 bpm SpO2: 97% Tempera ture: 36.1 (C) / 97.0 (F) Weight: 120 lbs 09/06/2016 Blood Pressure 1: 118/64 Code: 8480-6 BMI: 22.7 Code: 40710-8 Heart Rate 1: 78 bpm Height: 5'3" Respiratory Rate: 20 bpm SpO2: 98% Tempera ture: 36.2 (C) / 97.2 (F) Weight: 128 lbs 08/16/2016 Blood Pressure 1: 118/78 Code: 8480-6 BMI: 22.1 Code: 58876-7 Heart Rate 1: 78 bpm Height: 5'3" Respiratory Rate: 20 bpm SpO2: 97% Tempera ture: 36.2 (C) / 97.1 (F) Weight: 125 lbs 07/19/2016 Blood Pressure 1: 116/68 Code: 8480-6 BMI: 22.5 Code: 00857-6 Heart Rate 1: 76 bpm Height: 5'3" Respiratory Rate: 20 bpm Temperature: 36 .8 (C) / 98.2 (F) Weight: 127 lbs 07/06/2016 Blood Pressure 1: 106/70 Code: 8480-6 BMI: 22.5 Code: 07332-0 Heart Rate 1: 72 bpm Height: 5'3" Respiratory Rate: 20 bpm SpO2: 97% Tempera ture: 36.8 (C) / 98.2 (F) Weight: 127 lbs 06/15/2016 Blood Pressure 1: 136/76 Code: 8480-6 BMI: 22.9 Code: 81270-8 Heart Rate 1: 74 bpm Height: 5'3" Respiratory Rate: 18 bpm SpO2: 98% Tempera ture: 36.4 (C) / 97.6 (F) Weight: 129 lbs 04/09/2016 Blood Pressure 1: 124/78 Code: 8480-6 BMI: 23.0 Code: 15920-3 Heart Rate 1: 86 bpm Height: 5'3" Respiratory Rate: 20 bpm SpO2: 96% Tempera ture: 36.5 (C) / 97.7 (F) Weight: 130 lbs 03/17/2016 Blood Pressure 1: 116/74 Code: 8480-6 BMI: 23.4 Code: 59587-5 Heart Rate 1: 84 bpm Height: 5'3" Respiratory Rate: 20 bpm SpO2: 97% Tempera ture: 36.8 (C) / 98.3 (F) Weight: 132 lbs 11/13/2015 Blood Pressure 1: 124/78 Code: 8480-6 BMI: 23.4 Code: 51159-2 Heart Rate 1: 88 bpm Height: 5'3" Respiratory Rate: 24 bpm SpO2: 98% Tempera ture: 36.8 (C) / 98.2 (F) Weight: 132 lbs 06/12/2015 Blood Pressure 1: 126/78 Code: 8480-6 BMI: 23.6 Code: 62852-9 Heart Rate 1: 80 bpm Height: 5'3" Respiratory Rate: 20 bpm Temperature: 36 .9 (C) / 98.4 (F) Weight: 133 lbs 04/22/2015 Blood Pressure 1: 126/68 Code: 8480-6 BMI: 23.6 Code: 60106-3 Heart Rate 1: 80 bpm Height: 5'3" Respiratory Rate: 20 bpm Temperature: 36 .6 (C) / 97.9 (F) Weight: 133 lbs 03/24/2015 Blood Pressure 1: 116/66 Code: 8480-6 BMI: 22.9 Code: 86809-2 Heart Rate 1: 74 bpm Height: 5'3" Respiratory Rate: 20 bpm Temperature: 36 .4 (C) / 97.6 (F) Weight: 129 lbs 02/27/2015 Blood Pressure 1: 106/64 Code: 8480-6 BMI: 22.7 Code: 37874-2 Heart Rate 1: 74 bpm Height: 5'3" Respiratory Rate: 20 bpm Temperature: 36 .8 (C) / 98.2 (F) Weight: 128 lbs 06/13/2014 Blood Pressure 1: 104/66 Code: 8480-6 BMI: 22.7 Code: 84619-1 Heart Rate 1: 84 bpm Height: 5'3" Respiratory Rate: 20 bpm Temperature: 37 .0 (C) / 98.6 (F) Weight: 128 lbs 04/18/2014 Blood Pressure 1: 112/62 Code: 8480-6 BMI: 22.0 Code: 68529-7 Heart Rate 1: 82 bpm Height: 5'3" Respiratory Rate: 18 bpm Temperature: 36 .4 (C) / 97.6 (F) Weight: 124 lbs 12/05/2013 Blood Pressure 1: 106/70 Code: 8480-6 BMI: 23.7 Code: 70487-9 Heart Rate 1: 84 bpm Height: 5'3" [...] 1: 126/88 Code: 8480-6 BMI: 22.3 Code: 59148-7 Heart Rate 1: 96 bpm Height: 5'4" Respiratory Rate: 20 bpm Temperature: 37 .7 (C) / 99.9 (F) Weight: 130 lbs 11/29/2012 Blood Pressure 1: 122/76 Code: 8480-6 BMI: 23.0 Code: 68482-6 Heart Rate 1: 84 bpm Height: 5'4" Respiratory Rate: 20 bpm Temperature: 36 .9 (C) / 98.4 (F) Weight: 134 lbs 09/26/2012 Blood Pressure 1: 114/76 Code: 8480-6 BMI: 23.0 Code: 29663-0 Heart Rate 1: 84 bpm Height: 5'4" Respiratory Rate: 20 bpm Temperature: 37 .3 (C) / 99.1 (F) Weight: 134 lbs 07/11/2012 Blood Pressure 1: 126/78 Code: 8480-6 BMI: 23.7 Code: 72291-2 Heart Rate 1: 76 bpm Height: 5'4" Respiratory Rate: 20 bpm Temperature: 37 .1 (C) / 98.7 (F) Weight: 138 lbs 02/02/2012 Blood Pressure 1: 108/70 Code: 8480-6 BMI: 23.2 Code: 60173-9 Heart Rate 1: 88 bpm Height: 5'4" Respiratory Rate: 20 bpm Temperature: 36 .4 (C) / 97.6 (F) Weight: 135 lbs 08/17/2011 Blood Pressure 1: 108/70 Code: 8480-6 BMI: 23.2 Code: 37808-2 Heart Rate 1: 72 bpm Height: 5'4" Respiratory Rate: 20 bpm Temperature: 36 .8 (C) / 98.2 (F) Weight: 135 lbs 10/14/2010 Blood Pressure 1: 120/72 Code: 8480-6 BMI: 23.4 Code: 03332-6 Heart Rate 1: 78 bpm Height: 5'3" [...] EST Diagnosis: Allergic dermatitis[ICD10: L23.9] Alexandra Louise [employer] CPT-4: 55315 06/26/2019 ([id number]) OFFICE/OUTPATIENT VISIT EST Diagnosis: Contact dermatitis due to plant[ICD10: L25.5] Diagnosis: Cellulitis of left arm[ICD10: L03.114] Vandana Crowe PHILOMENA ALLEN [employer] CPT-4: 94319 05/14/2019 ([id number]) OFFICE/OUTPATIENT VISIT EST Diagnosis: Ventral hernia[ICD10: K43.9] Diagnosis: Incisional hernia[ICD10: K43.2] Alexandra CARROLL [facility] CPT-4: 06314 04/10/2019 ([id number]) OFFICE/OUTPATIENT VISIT EST Diagnosis: Insomnia[ICD10: G47.00] Diagnosis: Thrombocytosis[ICD10: D47.3] Alexandra CARROLL [facility] CPT-4: 43517 02/14/2019 ([id number]) OFFICE/OUTPATIENT VISIT EST Diagnosis: Small bowel obstruction[ICD10: K56.609] Diagnosis: FLU VACCINE[ICD10: Z23] Diagnosis: PNEUMOCOCCAL VACCINE[ICD10: Z23] Diagnosis: Onychomycosis[ICD10: B35.1] Alexandra KUNZ [facility] CPT-4: 73031 01/16/2019 ([id number]) OFFICE/OUTPATIENT VISIT EST Diagnosis: Diarrhea, unspecified[ICD10: R19.7] Diagnosis: Radiculopathy, lumbosacral region[ICD10: M54.17] Alexandra CARROLL [facility] CPT-4: 48330 09/18/2018 OFFICE/OUTPATIENT VISIT EST Diagnosis: Other intervertebral disc degeneration, lumbar region[ICD10: M51.36] Diagnosis: Sacroiliitis, not elsewhere classified[ICD10: M46.1] Diagnosis: Obstructive sleep apnea (adult) (pediatric)[ICD10: G47.33] Alexandra CARROLL [facility] CPT-4: 56078 08/10/2018 ([id number]) OFFICE/OUTPATIENT VISIT EST Diagnosis: Fracture of unspecified part of left clavicle, subsequent encounter for fracture with routine healing[ICD10: S42.002D] Diagnosis: Cervicalgia[ICD10: M54.2] Diagnosis: Radiculopathy, lumbosacral region[ICD10: M54.17] Alexandra CARROLL [facility] CPT-4: 70579 03/27/2018 ([id number]) OFFICE/OUTPATIENT VISIT EST Diagnosis: Fracture of unspecified part of left clavicle, subsequent encounter for fracture with routine healing[ICD10: S42.002D] Diagnosis: Other intervertebral disc degeneration, lumbar region[ICD10: M51.36] Diagnosis: Unspecified fracture of first thoracic vertebra, subsequent encounter for fracture with routine healing[ICD10: S22.019D] Diagnosis: Unspecified fracture of second thoracic vertebra, subsequent encounter for fracture with routine healing[ICD10: S22.029D] Alexandra CARROLL [facility] CPT-4: 72635 02/23/2018 ([id number]) OFFICE/OUTPATIENT VISIT EST Diagnosis: Fracture of unspecified part of left clavicle, subsequent encounter for fracture with routine healing[ICD10: S42.002D] Diagnosis: Unspecified fracture of first thoracic vertebra, subsequent encounter for fracture with routine healing[ICD10: S22.019D] Diagnosis: Unspecified fracture of second thoracic vertebra, subsequent encounter for fracture with routine healing[ICD10: S22.029D] Alexandra CARROLL [facility] CPT-4: 04425 01/24/2018 ([id number]) OFFICE/OUTPATIENT VISIT EST Diagnosis: Migraine, unspecified, not intractable, without status migrainosus[ICD10: G43.909] Alexandra CARROLL [facility] CPT - 4: 91212 01/17/2018 ([id number]) OFFICE/OUTPATIENT VISIT EST Diagnosis: Hematuria, unspecified[ICD10: R31.9] Diagnosis: Other intervertebral disc degeneration, lumbar region[ICD10: M51.36] Diagnosis: Retention of urine, unspecified[ICD10: R33.9] Alexandrateja CARROLL [facility] CPT-4: 45704 12/29/2017 OFFICE/OUTPATIENT VISIT EST Diagnosis: Fracture of [...] Low back pain[ICD10: M54.5] Alexandra KUNZ DO [facility] CPT-4: 28359 12/06/2017 ([id number]) OFFICE/OUTPATIENT VISIT EST Diagnosis: Cellulitis of right upper limb[ICD10: L03.113] Diagnosis: Allergy status to other antibiotic agents status[ICD10: Z88.1] Vandana CARROLL DO [facility] CPT-4: 67897 12/01/2017 ([id number]) OFFICE/OUTPATIENT VISIT EST Diagnosis: Cellulitis of right upper limb[ICD10: L03.113] Diagnosis: Allergy status to other antibiotic agents status[ICD10: Z88.1] Vandana CARROLL DO [facility] CPT-4: 17775 11/30/2017 ([id number]) OFFICE/OUTPATIENT VISIT EST Diagnosis: Cellulitis of right upper limb[ICD10: L03.113] Vandana CARROLL DO [facility] CPT-4: 96417 11/29/2017 ([id number]) OFFICE/OUTPATIENT VISIT EST Diagnosis: Cellulitis of right upper limb[ICD10: L03.113] Vandana CARROLL DO [facility] CPT-4: 53999 11/28/2017 ([id number]) OFFICE/OUTPATIENT VISIT EST Diagnosis: Other intervertebral disc degeneration, lumbar region[ICD10: M51.36] Diagnosis: Other retention of urine[ICD10: R33.8] Diagnosis: Primary insomnia[ICD10: F51.01] Diagnosis: Other spondylosis, site unspecified[ICD10: M47.899] Alexandra CARROLL DO [facility] CPT-4: 66770 11/17/2017 ([id number]) OFFICE/OUTPATIENT VISIT EST Diagnosis: Radiculopathy, lumbosacral region[ICD10: M54.17] Diagnosis: Other retention of urine[ICD10: R33.8] Diagnosis: Urinary tract infection, site not specified[ICD10: N39.0] Vandana CARROLL DO [facility] CPT-4: 78287 10/10/2017 ([id number]) PREV VISIT EST AGE 40-64 Diagnosis: Encounter for general adult medical examination without abnormal findings[ICD10: Z00.00] Diagnosis: Other intervertebral disc degeneration, lumbar region[ICD10: M51.36] Diagnosis: Hypothyroidism, unspecified[ICD10: E03.9] Diagnosis: Mixed hyperlipidemia[ICD10: E78.2] Alexandradanielle CARROLL [facility] CPT-4: 29305 06/22/2017 ([id number]) OFFICE/OUTPATIENT VISIT EST Diagnosis: URI, ACUTE[ICD10: J06.9] Alexandra PLATT [facility] CPT-4: 43687 03/28/2017 OFFICE/OUTPATIENT VISIT EST Diagnosis: Acute sinusitis, unspecified[ICD10: J01.90] [facility]: 36649 02/16/2017 ([id number]) OFFICE/OUTPATIENT VISIT EST Diagnosis: Migraine, unspecified, not intractable, without status migrainosus[ICD10: G43.909] [facility] CPT - 4: 79624 11/02/2016 ([id number]) OFFICE/OUTPATIENT VISIT EST Diagnosis: Pain in thoracic spine[ICD10: M54.6] Diagnosis: Chondrocostal junction syndrome [Tietze][ICD10: M94.0] [facility] CPT-4: 04407 09/06/2016 OFFICE/OUTPATIENT VISIT EST Diagnosis: Acute sinusitis, unspecified[ICD10: J01.90] Vidya Manuel [facility] CPT-4: 48396 08/16/2016 ([id number]) OFFICE/OUTPATIENT VISIT EST Diagnosis: Primary insomnia[ICD10: F51.01] Diagnosis: Cramp and spasm[ICD10: R25.2] Diagnosis: Major depressive disorder, single episode, mild[ICD10: F32.0] [facility] CPT-4: 20242 07/19/2016 ([id number]) OFFICE/OUTPATIENT VISIT EST Diagnosis: Obstructive sleep apnea (adult) (pediatric)[ICD10: G47.33] Diagnosis: Other fatigue[ICD10: R53.83] Diagnosis: Allergic rhinitis due to pollen[ICD10: J30.1] Diagnosis: Headache[ICD10: R51] Alexandra Carroll ALEXANDRA MacyAri GL[facility] CPT-4: 62744 07/06/2016 ([id number]) OFFICE/OUTPATIENT VISIT EST Diagnosis: Acute recurrent sinusitis, unspecified[ICD10: J01.91] Diagnosis: Allergic rhinitis due to pollen[ICD10: J30.1] Alexandra Danejames MARINALEXANDRA MacyAri [facility] CPT-4: 26369 06/15/2016 ([id number]) OFFICE/OUTPATIENT VISIT EST Diagnosis: Migraine, unspecified, not intractable, without status migrainosus[ICD10: G43.909] Diagnosis: Allergic rhinitis, unspecified[ICD10: J30.9] Nae Mckay ALEXANDRA MacyAri [facility] CPT-4: 80473 04/09/2016 ([id number]) OFFICE/OUTPATIENT VISIT EST Diagnosis: Hypothyroidism, unspecified[ICD10: E03.9] Diagnosis: Other fatigue[ICD10: R53.83] Diagnosis: Mixed hyperlipidemia[ICD10: E78.2] Diagnosis: Major depressive disorder, single episode, mild[ICD10: F32.0] Alexandra Glen SHAFFERLINE MacyAri [facility] CPT-4: 34699 03/17/2016 ([id number]) OFFICE/OUTPATIENT VISIT EST Diagnosis: Insomnia, unspecified[ICD10: G47.00] Diagnosis: Encounter for therapeutic drug level monitoring[ICD10: Z51.81] Naety Mckay ALEXANDRA MacyAri [facility] CPT-4: 76267 11/13/2015 ([id number]) OFFICE/OUTPATIENT VISIT EST Diagnosis: Hematuria, unspecified[ICD10: R31.9] Alexandra Danejames MARINQUE DANIELLE [facility]acyAri [facility] CPT-4: 51125 05/05/2015 ([id number]) OFFICE/OUTPATIENT VISIT EST Diagnosis: Other intervertebral disc degeneration, lumbar region[ICD10: M51.36] Diagnosis: Radiculopathy, lumbosacral region[ICD10: M54.17] Alexandra FORDE MacyAri [facility] CPT-4: 94483 04/22/2015 ([id number]) OFFICE/OUTPATIENT VISIT EST Diagnosis: Low back pain[ICD10: M54.5] Diagnosis: Recurrent and persistent hematuria with unspecified morphologic changes[ICD10: N02.9] Alexandra CARROLL [facility] CPT-4: 91480 03/24/2015 ([id number]) OFFICE/OUTPATIENT VISIT EST Diagnosis: Acute sinusitis, unspecified[ICD10: J01.90] Diagnosis: Headache[ICD10: R51] Diagnosis: Retention of urine, unspecified[ICD10: R33.9] Diagnosis: Hypothyroidism, unspecified[ICD10: E03.9] Alexandra Glen SHAFFERLINE Ty CARROLL [facility] CPT-4: 66024 02/27/2015 ([id number]) PREV VISIT EST AGE 40-64 Diagnosis: ROUTINE MEDICAL EXAM[ICD9: V70.0] Diagnosis: HYPOTHYROIDISM[ICD9: 244.9] Diagnosis: HYPERLIPIDEMIA NEC/NOS[ICD9: 272.4] Alexandra CORDOBA Ty CARROLL [facility] CPT-4: 25006 06/13/2014 ([id number]) OFFICE/OUTPATIENT VISIT EST Diagnosis: CEPHALGIA[ICD9: 784.0] Diagnosis: Nausea[ICD9: 787.02] Shalini Romeo ALEXANDRA Ty CARROLL [facility] CPT-4: 58787 04/18/2014 ([id number]) OFFICE/OUTPATIENT VISIT EST Diagnosis: INSOMNIA NOS[ICD9: 780.52] Diagnosis: Complicated grieving[ICD9: 309.0] Alexandra Louise MacyAri [facility] CPT-4: 25724 12/05/2013 ([id number]) OFFICE/OUTPATIENT VISIT EST Diagnosis: Muscle twitch[ICD9: 781.0] Diagnosis: ALLERGIC RHINITIS[ICD9: 477.9] Alexandra FORDE Macy Ari GL[facility] CPT-4: 45912 06/05/2013 ([id number]) OFFICE/OUTPATIENT VISIT EST Diagnosis: DEPRESSIVE DISORDER NEC[ICD9: 311] Alexandra QUINTERO MacyAri [facility] CPT-4: 15217 05/22/2013 OFFICE/OUTPATIENT VISIT EST Diagnosis: Shingles[ICD9: 053.9] Alexandra CARROLL [facility] CPT-4: 50140 04/05/2013 ([id number]) OFFICE/OUTPATIENT VISIT EST Diagnosis: DEPRESSIVE DISORDER NEC[ICD9: 311] [facility] CPT-4: 61879 03/26/2013 ([id number]) OFFICE/OUTPATIENT VISIT EST Diagnosis: Complicated grieving[ICD9: 309.0] Alexandra CARROLL [facility] CPT-4: 35747 03/06/2013 ([id number]) OFFICE/OUTPATIENT VISIT EST Diagnosis: CEPHALGIA, TENSION[ICD9: 307.81] Diagnosis: MIGRAINE NOS/NOT INTRCBL[ICD9: 346.90] Diagnosis: Cervicalgia[ICD9: 723.1] Alexandra PLATT [facility] CPT-4: 91042 11/29/2012 ([id number]) OFFICE/OUTPATIENT VISIT EST Diagnosis: Jaw pain[ICD9: 784.92] Diagnosis: Shoulder pain[ICD9: 719.41] Diagnosis: Family history of premature coronary artery disease[ICD9: V17.3] Alexandra CARROLL [facility] CPT-4: 04210 09/26/2012 ([id number]) OFFICE/OUTPATIENT VISIT EST Diagnosis: ABDOMINAL PAIN[ICD9: 789.00] Diagnosis: Constipation[ICD9: 564.00] Diagnosis: Hematuria[ICD9: 599.70] Alexandra BURLESON [facility] CPT-4: 44167 07/11/2012 ([id number]) OFFICE/OUTPATIENT VISIT EST Diagnosis: ANEMIA NOS[ICD9: 285.9] Alexandra JACOBOND [facility] CPT-4: 48102 02/17/2012 ([id number]) PREV VISIT EST AGE 40-64 Diagnosis: ROUTINE MEDICAL EXAM[ICD9: V70.0] Diagnosis: HYPOTHYROIDISM[ICD9: 244.9] Diagnosis: HYPERLIPIDEMIA NEC/NOS[ICD9: 272.4] Diagnosis: Obstructive sleep apnea[ICD9: 327.23] Alexandra CARROLL DO [facility] CPT-4: 80790 02/02/2012 ([id number]) OFFICE/OUTPATIENT VISIT EST Diagnosis: URINARY TRACT INFECTION[ICD9: 599.0] Alexandra BURLESONER DO [facility] CPT-4: 88855 08/27/2011 ([id number]) OFFICE/OUTPATIENT VISIT EST Diagnosis: URINARY TRACT INFECTION[ICD9: 599.0] Diagnosis: ACUTE CYSTITIS[ICD9: 595.0] Alexandra FORDE S. Billie RENDER DO [facility] CPT-4: 93047 08/17/2011 OFFICE/OUTPATIENT VISIT EST Diagnosis: URINARY TRACT INFECTION[ICD9: 599.0] Steph BURLESONER DO [facility] CPT-4: 97000 10/14/2010 Plan of Care Planned Activity Notes Codes Status Date Visit Diagnosis Plan: Allergic dermatitis Discussion: Could be numerous things that were given during surgery Continue benadryl Add Prednisone Notify if persists/worsens ICD-9 : 692.9 ICD-10 : L23.9 06/26/2019 Patient Education: prednisone- [employer] C[employer]on [phone] [email or web address]/resources/getResource/[email or web address] Completed 06/26/2019 Visit Diagnosis Plan: Cellulitis of [...] injection a week pre-op and dr. albert's manpower development specialist voiced ok to give. ICD-9 : 692.6 ICD-10 : L25.5 05/14/2019 Appointment: Vandana Crowe [address] [place], [place] [address] ACUTE I[facility]NESS 05/14/2019 Patient Education: Levaquin- [employer] Coupon [phone] [email or web address]/samplemd/resources/getResource/[email or web address] Completed 05/14/2019 Visit Diagnosis Plan: Ventral hernia Discussion: See s urgery for repair Discussed signs of incarceration or strangulation then is to report to ER ICD-9 : 553.20 ICD-10 : K43.9 04/10/2019 Appointment: Alexandra Carroll WPtel: [address] [place], [place] [phone] [place] left second message 04/10/19 at 10:20 ACUTE ILLNE SS 04/10/2019 Care Plan: Referral Order SNOMED-CT : 30 [id number] Pending 04/10/2019 Visit Diagnosis Plan: Insomnia Discussion: [...] : D47.3 02/14/2019 Appointment: Alexandra Carroll WPtel: [address] [place], [place] [phone] [place] FOLLOW UP 02/14/2019 Appointment: Alexandra Carroll WPtel: [address] [place], [place] [phone] [place] CANCELED 02/12/2019 Visit Diagnosis Plan: Onychomycosis Discussion: Send n ail for culture ICD-9 : 110.1 ICD-10 : B35.1 01/16/2019 Visit Diagnosis Plan: Small bowel obstruction Discussi on: S/P surgery in September with postop complications of wound dehiscence ICD-9 : 560.9 ICD-10 : K56.609 01/16/2019 Appointment: Alexandra Carroll WPtel: [address] [place], [place] [phone] [place] MEDICATION REVIEW 01/16/2019 Appointment: Alexandra Carroll WPtel: [address] [place], [place] [phone] [place] CANCELED 12/12/2018 Visit Diagnosis Plan: Diarrhea, unspecified Discussion : Due for updated colonoscopy ICD-9 : 787.91 ICD-10 : R19.7 09/18/2018 Visit Diagnosis Plan: Radiculopathy, lumbosacral regio n Discussion: Had left SI joint injection by Dr. Baig about 2 weeks ago and has fwup with him ICD-9 : 724.4 ICD-10 : M54.17 09/18/2018 Appointment: Alexandra Carroll WPtel: [address] [place], [place] [phone] [place] PATIENT CONSULT 15 09/18/2018 Care Plan: Referral Order SNOMED-CT : 30 [id number] Pending 09/18/2018 Visit Diagnosis Plan: Other intervertebral [...] : M46.1 08/10/2018 Appointment: Alexandra Carroll WPtel: [address] [place], [place] [phone] [place] MEDICATION REVIEW 08/10/2018 Care Plan: Referral Order SNOMED-CT : 30 3202111 Pending 08/10/2018 Appointment: Alexandra Carroll WPtel: [address] [place], [place] [phone] [place] CANCELED 04/17/2018 Visit Diagnosis Plan: Fracture [...] ICD-10 : M54.2 03/27/2018 Appointment: Alexandra Carrolltel: [address] [place], [place] [address] [place] FOLLOW UP 03/27/2018 Visit Diagnosis Plan: [...] ICD-10 : S42.002D 02/23/2018 Appointment: Alexandra Carrolltel: [address] [place], [place] [phone] [place] FOLLOW UP 02/23/2018 Patient Education: gabapentin- [employer] Coupon [phone] [email or web address]/samplemd/resources/getResource/[email or web address] Completed 02/23/2018 Visit Diagnosis Plan: Fracture of unspec ified part of left clavicle, subsequent encounter for fracture with routine healing Discussion: Hold on PT and do home stretches Trial of gabapentin Recheck 4 weeks ICD-9 : V54.11 ICD-10 : S42.002D 01/24/2018 Appointment: Alexandra Carroll WPtel: [address] [place], [place] [phone] [place] FOLLOW UP 01/24/2018 Visit Diagnosis Plan: Migraine, unspecif ied, not intractable, without status migrainosus Discussion: Toradol and phenergan given ICD-9 : 346.90 ICD-10 : G43.909 01/17/2018 Appointment: Alexandra Carroll WPtel: [address] [place], [place] [phone] ACUTE ILLNESS 01/17/2018 Visit Diagnosis Plan: Retention [...] : M51.36 12/29/2017 Appointment: Alexandra Carroll WPtel: [address] [place], [place] [phone] [place] ACUTE ILLNESS 12/29/2017 Care Plan: US EXAM PELVIC COMPLETE LOINC : 91921-7 Pending 12/29/2017 Care Plan: ECHO EXAM OF ABDOMEN LOINC : 25306-1 Pending 12/29/2017 Care Plan: Referral Order SNOMED-CT : 30 [id number] Pending 12/29/2017 Visit Diagnosis Plan: Fracture of unspec ified part of left clavicle, subsequent encounter for fracture with routine healing Discussion: Start PT in another 7-14 days Off work for the rest of this week then may return to part-time work on 12/12/17 Fwup in 4 weeks ICD-9 : V54.11 ICD-10 : S42.002D 12/06/2017 Appointment: Alexandra Carroll WPtel: [facility] [place] FOLLOW UP 12/06/2017 Patient Education: Patient [...] : Z88.1 12/01/2017 Appointment: Vandana Crowe [address] [place] [address] FOLLOW UP 12/01/2017 Patient Education: Patient Medication [...] ICD-10 : Z88.1 11/30/2017 Appointment: Vandana Crowe [address] [place], [place] [phone] 11/30/2017 Patient Education: Patient Medication Summary Completed [...] : L03.113 11/29/2017 Appointment: Vandana Crowe [address] [facility] FOLLOW UP 11/29/2017 Patient Education: Patient Medication [...] : L03.113 11/28/2017 Appointment: Vandana Crowe [address] [facility] ACUTE ILLNESS 11/28/2017 Patient Education: Patient Medication [...] Appointment: Alexandra Carroll WPtel: [phone] [id number] [place] MEDICATION REVIEW 11/17/2017 Patient Education: Patient Medication Summary Completed 11/17/2017 Care Plan: Referral Order SNOMED-CT : 30 [id number] Pending 11/17/2017 Patient Education: Patient Medication Summary Completed 10/12/2017 Care Plan: MRI LUMBAR SPINE W/O DYE LOIN C : 98278-5 Pending 10/12/2017 Care Plan: X-RAY EXAM L-S SPINE 2/3 VWS LOINC : 04561-6 Pending 10/11/2017 Visit Diagnosis Plan: Other retention [...] medrol pack to start tomorrow. will call [facility] for patient to start PT immediately with inversion table. instructed patient to go to ED immediately if she develops any incontinence with bowel or bladder. patient verbalized understanding. if no improvement, will need updated MRI and referral to surgeon. ICD-9 : 724.4 ICD-10 : M54.17 10/10/2017 Appointment: Vandana Crowe [address] [place], [place] [id number] ACUTE ILLNESS 10/10/2017 Patient Education: Patient Medication Summary Completed 10/10/2017 Appointment: Vandana Crowe [address] [place], [place] [id number] ACUTE ILLNESS 08/01/2017 Visit Diagnosis Plan: Other intervertebral disc degene ration, lumbar region Discussion: Core strengtheing and inversion table and if worsening will need updated MRI ICD-9 : 722.52 ICD-10 : M51.36 06/22/2017 Visit Diagnosis Plan: [facility] without abnormal findings Discussion: Lab dis ussed Follow Up: 6 months ICD-9 : V70.0 ICD-10 : Z00.00 06/22/2017 Appointment: Alexandra Carroll WPtel: [phone] Annual Well Visit 06/22/2017 Patient Education: Patient Medication Summary Completed 06/22/2017 Patient Education: Patient Medication Summary Completed 06/16/2017 Care Plan: COMPREH[place]AB[place] : 02656-7 Pending 06/16/2017 Care Plan: ASSAY THYROID STIM HORMONE Pen ding 06/16/2017 Care Plan: ASSAY OF FREE THYROXINE Pendin g 06/16/2017 Care Plan: LIPID PANEL LOINC : 20199-2 Pending 06/16/2017 Care Plan: CBC Pending 06/16/2017 [...] J06.9 03/28/2017 Appointment: Alexandra Carroll WPtel: [phone] [place] [id number] ACUTE ILLNESS 03/28/2017 Patient Education: Patient Medication Summary Completed 03/28/2017 Visit Diagnosis Plan: Acute sinusitis, unspecified Dis cussion: cefdinir and medrol dose pack prescribed to be taken as directed. tylenol/ibuprofen as needed. educated on importance of taking singulair or zyrtec daily to prevent worsening symptoms. keep hydrated. ICD-9 : 461.9 ICD-10 : J01.90 02/16/2017 Appointment: Vandana Crowe [address] [place] [address] ACUTE ILLNESS 02/16/2017 Patient Education: Patient Medication Summary Completed 02/16/2017 Appointment: Alexandra Carroll WPtel: [address] [place] [address] INJECTION 11/02/2016 Patient Education: Patient Medication Summary Completed 11/02/2016 Visit Diagnosis Plan: Pain in thoracic spine Discussio n: Increase flexeril to 10mg po BID Add Mobic 15mg po daily Towel stretch May see chiropractor to adjust ribs Notify if persists or worsening ICD-9 : 724.1 ICD-10 : M54.6 09/06/2016 Appointment: Alexandra Carroll WPtel: [address] [place] [address] ACUTE ILLNESS 09/06/2016 Patient Education: Patient Medication Summary Completed 09/06/2016 Visit Plan: Due to hx, ERx Cefdinir and Prednisone (discussed risks for both) Given bottle for nasal saline rinses Tylenol/Ibuprofen prn pain/fever Fluids/rest Discussed s/s of worsening, RTC if no improvement 08/16/2016 Appointment: Vidya Manuel WPtel: [address] [place] [address] ACUTE ILLNESS 08/16/2016 Patient Education: Patient Medication [...] : F32.0 07/19/2016 Appointment: Alexandra Carroll WPtel: [address] [place] [address] 07/15 confirmed`sl FOLLOW UP 07/19/2016 Patient Education: [...] J30.1 07/06/2016 Appointment: Alexandra Carroll WPtel: [phone] [facility] 07/05 confirmed-sp FOLLOW UP 07/06/2016 Patient [...] : 461.9 ICD-10 : J01.91 06/15/2016 Appointment: Aelxandra Carroll WPtel: [facility] 06/14 lm ~sl ACUTE ILLNESS 06/15/2016 Patient Education: Patient Medication Summary Completed 06/15/2016 Visit Diagnosis Plan: Migraine, unspecif ied, not intractable, without status migrainosus Discussion: Injection as above Drink ple nty of water No driving x 6 hours Rest No OTC nsaids today Follow up PRN Refill called of claritin-d ICD-9 : 346.90 ICD-10 : G43.909 04/09/2016 Appointment: Nae Mckay [address] [place], [place] [id number] ACUTE ILLNESS 04/09/2016 Patient Education: Patient Medication [...] : R53.83 03/17/2016 Appointment: Alexandra Carroll WPtel: [address] [place], [place] [phone] 03/16 nvm~sl 03/17 confirmed`sl FOLLOW UP 0 03/17/2016 Patient Education: Patient Medication Summary Completed 03/17/2016 Appointment: Alexandra Carroll WPtel: [address] [place], [place] [id number] 03/11 lm~sl 03/15lm `sl 03/15 confirmed`sl FOLLOW [...] same robert. If working well, continue the c0jgaxj office visits. Call if not working well, and will restart xanax at for sleep. 11/13/2015 Appointment: Nae Mckay [address] [place], [place] [id number] 11/11 confirmed~sl FOLLOW UP 11/13/2015 Patient Education: Patient Medication Summary Completed 11/13/2015 Appointment: Alexandra Carroll WPtel: [address] [place], [place] [phone] Suture Removal 06/23/2015 Patient Education: Patient Medication Summary Completed 06/23/2015 Visit Plan: Removal of lesion above usin g 3-0 punch biopsy Return in 10 days for suture removal 06/12/2015 Appointment: Alexandra Carroll WPtel: [address] [place], [place] [phone] 06/10 lm ~sl ACUTE ILLNESS 06/12/2015 Patient Education: Patient Medication Summary Completed 06/12/2015 Ref[facility]: [facility] [address] Schedule patient around lunch time and 3 weeks from 04/22/2015 ~ Spoke with Kiesha at Dr. Sandoval Office and 04/24/15 and scheduled the patient ~sl 04/24/15 Patient is informed~ 06/03 Patient canceled the appointment ~ Patient did not show up for scheduled appointment-sp Appoint ment Requested 05/21/2015 Appointment: Alexandra Carroll WPtel: [address] [place], [place] [phone] UA 05/05/2015 Patient Education: Patient Medication Summary Completed 05/05/2015 Visit Plan: Starts PT today Schedule wit h Dr. Garcia for epidural CT abdomen/pelvis results discussed Sees DEMOLITION SPECIALIST in April and will get checked then 04/22/2015 Appointment: Alexandra Carroll WPtel: [address] [place], [place] [phone] 04/21 confirmed~lb ACUTE ILLNESS 04/22/2015 Patient Education: Patient Medication Summary Completed 04/22/2015 Referral: Lincoln Hernandez WPtel: [address] [place] [address] Referral Initiated 04/10/2015 Patient Education: Patient Medication Summary Completed 04/09/2015 Visit Plan: Start with lumosacral spine x-ray--will likely need MRI of L/S spine x-ray Needs urology--has had to have bladder stretched in past Tivorbex 03/24/2015 Appointment: Alexandra Carroll WPtel: [address] [place], [place] [phone] 03/21/15 appt confirmed cn ACUTE ILLNESS 03/24 Patient Education: Patient Medication Summary Completed 03/24/2015 Visit Plan: Saline nasal flushes prn. Ty lenol/Motrin prn headache. Notify if persists/symptoms worsening. Cefuroxime to cover both sinuses and UTI Culture urine Check lab 02/27/2015 Appointment: Alexandra Carroll WPtel: [address] [place], [place] [phone] 02/26/15 vm to confirm and need new insu meri on file is inactive cn....02/27/15 appt confirmed cn ACUTE ILLNESS 015 Patient Education: Patient Medication Summary Completed 02/27/2015 Visit Plan: Lab discussed Stop simvastat in Check lipids in 6mos Continue all other meds at current dose Had Pap and Mammo 3 weeks ago 06/13/2014 Appointment: Alexandra Carroll WPtel: [address] [place] [address] Annual Well Visit 06/13/2014 Patient Education: Patient Medication Summary Completed 06/13/2014 Appointment: Shalini Walters WPtel: [address] [place] [address] ACUTE ILLNESS 04/18/2014 Patient Education: Patient Medication Summary Completed 04/18/2014 Visit Plan: Check lab in May then fwup Can try decreasing xanax to 1mg q HS with melatonin 5-10mg q HS 12/05/2013 Appointment: Alexandra Carroll WPtel: [address] [place], [place] [phone] 12/04 FOLLOW UP 12/05/2013 Patient Education: Patient Medication Summary Completed 12/05/2013 Appointment: Alexandra Carroll WPtel: [address] [place], [place] [phone] FOLLOW UP 06/05/2013 Patient Education: Patient Medication Summary Completed 06/05/2013 Appointment: Alexandra Carroll WPtel: [address] [place] [address] FOLLOW UP 05/22/2013 Patient Education: Patient Medication Summary Completed 05/22/2013 Visit Plan: Zovirax for 2wks Notify if p ain worsens or if persists 04/05/2013 Appointment: Alexandra Carroll WPtel: [address] [place] [address] ACUTE ILLNESS 04/05/2013 Patient Education: Patient Medication Summary Completed 04/05/2013 Visit Plan: Keep Wellbutrin at current d ose Pt 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 see butcher apprentice for counseling 03/26/2013 Appointment: Alexandra Carroll WPtel: [address] [place] [address] ACUTE ILLNESS 03/26/2013 Patient Education: Patient Medication Summary Completed 03/26/2013 Visit Plan: Continue citalopram at curre nt dose Increase xanax to 1-2mg q HS for sleep Add Wellbutrin Sr 100mg q AM Start Counseling 03/06/2013 Appointment: Alexandra Carroll WPtel: [address] [place] [address] ACUTE ILLNESS 03/06/2013 Patient Education: Patient Medication Summary Completed 03/06/2013 Appointment: Alexandra Carroll WPtel: [address] [place] [address] ACUTE ILLNESS 11/29/2012 Patient Education: Patient Medication Summary Completed 11/29/2012 Appointment: Alexandra Carroll WPtel: [address] [place] [address] ACUTE ILLNESS 09/26/2012 Patient Education: Patient Medication Summary Completed 09/26/2012 Appointment: Alexandra Carroll WPtel: [address] [place] [address] ACUTE ILLNESS 07/11/2012 Patient Education: Patient Medication Summary Completed 07/11/2012 Appointment: Alexandra Carroll WPtel: [address] [place], [place] [phone] US LAB 02/17/2012 Patient Education: Patient Medication Summary Completed 02/17/2012 Visit Plan: Check fasting lab Start annie y ca with Vit D Cont CPAP Mammo up-to-date Hemoccult card given 02/02/2012 Appointment: Alexandra Carroll WPtel: [address] [place] [address] PHYSICAL 02/02/2012 Patient Education: Patient Medication Summary Completed 02/02/2012 Appointment: Alexandra Carroll WPtel: [address] [place] [address] UA 08/27/2011 Patient Education: Patient Medication Summary Completed 08/27/2011 Visit Plan: Levaquin and Diflucan for 1w k Then cipro QOD for prophylaxis 08/17/2011 Appointment: Alexandra Carroll WPtel: [address] [place] [address] FOLLOW UP 08/17/2011 Patient Education: Patient Medication Summary Completed 08/17/2011 Appointment: Alexandra Carroll WPtel: [address] [place] [address] UA 12/28/2010 Patient Education: Patient Medication Summary Completed 12/28/2010 Appointment: Alexandra Carroll WPtel: [address] [place] [address] UA 11/09/2010 Patient Education: Patient Medication Summary Completed 11/09/2010 Appointment: Alexandra Carroll WPtel: [address] [place] [address] UA 10/29/2010 Patient Education: Patient Medication Summary Completed 10/29/2010 Appointment: Steph Bowen WPtel: [address] [place] [address] ACUTE ILLNESS 10/14/2010 Patient Education: Patient Medication Summary Completed 10/14/2010 Referral: Florian Baig WPtel: [facility] [address], [facility] [id number] [place] Referral Initiated Referral: Paulo Albert WPtel: [id number] [place] Referral Appointment Requested Referral: Luis Enrique Jasso WPtel: [facility] [address] Referral Appointment Requested Referral: Florian Baig WPtel: [facility] [address] [place] Referral Appointment Requested Referral: Caleb Glaser WPtel: [address] [id number] [place] Referral Appointment Requested Referral: Florian Baig WPtel: [facility] [address], [id number] [place] Referral Initiated Referral: Florian Baig WPtel: [facility] [address] [place] Referral Appointment Requested Instructions Comment [...] same robert. If working well, continue the o1akhbb office visits. Call if not working well, and will restart xanax at for sleep. . Removal of lesion above using 3-0 punc h biopsy Return in 10 days for suture removal . Starts PT today Schedule with Dr. Garcia for epidural CT abdomen/pelvis results discussed Sees DEMOLITION SPECIALIST in April and will get checked [...]
--- OUTSIDE RECORDS SUMMARY | 2019-09-02 00:24 | XMS REPORT | CCD ---
Author Author Ilda Bowen APRN Organization [facility] Address [address] [place] [address] Phone Care Team Providers Care Stock Layer Name Role Phone Alexandra Carroll D.O., PP Unavailable CCM Unavailable Summary Purpose Interface Exchange Insurance Providers Payer name Policy type / Coverage type Covered green party ID Effective Begin Date Effective End Date WPS MEDICARE PART B [place] Medicare Part B [id number] Unknown [employer] [place] Medicare Part B [id number] Unknown Family History Family History data not found Social History Social History Element Codes Description Effective Dates Tobacco history SNOMED CT: 055957501 Nonsmoker 10/14/2010 Allergies, Adverse Reactions, Alerts Substance [...] Fill Instructions prednisone 20 mg tablet RxNorm: 477082 1 Tablet(s) Oral two harlan es a day 06/26/2019 07/03/2019 Active Amabelz 1 mg-0.5 mg tablet RxNorm: 5152440 1 Tablet(s) Oral QD 05/30 No Stop Date Active Trazadone 150 mg Tablet RxNorm: 1 Tablet(s) Oral every n ight at bedtime 05/14/2019 No Stop Date Active Levaquin 500 mg tablet RxNorm: 561692 1 Tablet(s) Oral QD 05/14/2019 05/21/2019 Inactive Xanax 1 mg tablet RxNorm: 124519 1-2 Tablet(s) Oral e very night at bedtime as needed for sleep 05/03/2019 06/01/2019 Inactive Generic For:LAVELLE AX 1MG 10/11/2016 11:15:13 AM cyclobenzaprine 10 mg tablet RxNorm: 738101 1 Tablet(s) Oral three times a day as needed for muscle spasm 02/12/2019 02/12/2019 Inactive Xanax 1 mg tablet RxNorm: 422647 1-2 Tablet(s) Oral e very night at bedtime as needed for sleep 02/09/2019 03/10/2019 Inactive Generic For:LAVELLE AX 1MG 10/11/2016 11:15:13 AM Xanax 1 mg tablet RxNorm: 220358 1-2 Tablet(s) Oral e very night at bedtime as needed for sleep 01/22/2019 02/08/2019 Inactive Generic For:LAVELLE AX 1MG 10/11/2016 11:15:13 AM Celexa 40 mg tablet RxNorm: 874373 1 Tablet(s) Oral QD 01/17/2019 Active - First Attempt Ref: [id number] Xanax 1 mg tablet RxNorm: 319249 1 Tablet(s) Oral every night a t bedtime 01/08/2019 01/21/2019 Inactive levothyroxine 88 mcg tablet RxNorm: 200505 TAKE 1 TABLET BY NINA TH DAILY 12/19/2018 06/16/2019 Inactive - First Attempt Ref: [id number] Xanax 1 mg tablet RxNorm: 623878 1 Tablet(s) Oral every night a t bedtime 12/06/2018 01/05/2019 Inactive Singulair 10 mg tablet RxNorm: 613727 1 Tablet(s) Oral every ni ght at bedtime 11/23/2018 11/17/2019 Active - First Attempt Ref: [id number] Celexa 40 mg tablet RxNorm: 973533 1 Tablet(s) Oral 11/23/20182018 Inactive - First Attempt Ref: [id number] cyclobenzaprine 10 mg tablet RxNorm: 616383 1 Tablet(s) Oral three times a day as needed for muscle spasm 11/23/2018 02/11/2019 Inactive Xanax 1 mg tablet RxNorm: 063314 1 Tablet(s) PO QHS 11/06/20182018 Inactive Xanax 1 mg tablet RxNorm: 809618 1 Tablet(s) PO QHS 09/26/20182018 Inactive Singulair 10 mg tablet RxNorm: 853875 TAKE 1 TABLET BY MOUTH EVERY NIGHT AT BEDTIME 08/16/2018 11/22/2018 Inactive - First Attempt Ref: [id number] Xanax 1 mg tablet RxNorm: 826769 1 Tablet(s) PO QHS 08/01/20182018 Inactive levothyroxine 88 mcg tablet RxNorm: 410472 TAKE 1 TABLET BY NINA DAILY 07/31/2018 12/18/2018 Inactive - First Attempt Ref: [id number] Celexa 40 mg tablet RxNorm: 013680 TAKE 1 TABLET BY MOUTH DAILY 04/201811/22/2018 Inactive - First Attempt Ref: [id number] 54 bupropion HCl SR 100 mg tablet,12 hr sustained-release RxNor m: 787008 1 Tablet(s) PO BID 07/12/2018 07/06/2019 Active - Ref: [id number] 7 Claritin-D 24 Hour 10 mg-240 mg tablet,extended release RxNo rm: 0902831 1 Tablet(s) PO QD 06/29/2018 2018 Inactive Claritin-D 24 Hour 10 mg-240 mg tablet,extended release RxNo rm: 0252085 1 Tablet(s) PO QD 06/29/2018 2018 Inactive Xanax 1 mg tablet RxNorm: 015386 1-2 Tablet(s) PO QHS as needed for sleep 05/26/2018 06/23/2018 Inactive Generic For:XANAX 1M G 10/11/2016 11:15:13 AM Xanax 1 mg tablet RxNorm: 501896 1-2 Tablet(s) PO QHS as needed for sleep 03/28/2018 05/25/2018 Inactive Generic For:XANAX 1M G 10/11/2016 11:15:13 AM Macrobid 100 mg capsule RxNorm: 146720 1 Capsule(s) PO BID 03/27/1903/31/2018 Inactive gabapentin 300 mg capsule RxNorm: 931125 1 Capsule(s) PO QHS 201703/26/2018 Inactive Claritin-D 24 Hour 10 mg-240 mg tablet,extended release RxNo rm: 6405670 1 Tablet(s) PO QD 01/26/2018 02/24/2018 Inactive gabapentin 100 mg capsule RxNorm: 811119 1 Capsule(s) P O QHS for 1 week then 2 po q HS for 2 weeks then 3 po q HS 01/24/2018 03/26/2018 Inactive Xanax 1 mg tablet RxNorm: 634082 1-2 Tablet(s) PO QHS as needed for sleep 01/24/2018 03/24/2018 Inactive Generic For:XANAX 1M G 10/11/2016 11:15:13 AM prednisone 20 mg tablet RxNorm: 756130 1 Tablet(s) PO T ID for 3 days then 1 po BID for 3 days then one daily for 3 days 12/29/2017 03/26/2018 Inactiv e prednisone 20 mg tablet RxNorm: 610002 3 Tablet(s) PO T ID for 3 days then 1 po BID for 3 days then one daily for 3 days 12/29/2017 12/29/2017 Inactiv e Macrobid 100 mg capsule RxNorm: 174132 1 Capsule(s) PO BID 12/30/19 18 01/02/2018 Inactive Xanax 1 mg tablet RxNorm: 690606 1-2 Tablet(s) PO QHS as needed for sleep 12/28/2017 01/23/2018 Inactive Generic For:XANAX 1M G 10/11/2016 11:15:13 AM Medrol (Walter) 4 mg tablets in a dose pack RxNorm: 655505 Tablet(s) PO take as directed 12/01/2017 03/26/2018 Inactive Keflex 750 mg capsule RxNorm: 568424 1 Capsule(s) PO BID 12/01/2017 1 Inactive clindamycin HCl 300 mg capsule RxNorm: 905479 2 Capsule(s) PO TID 1 12/08/2017 Inactive Xanax 1 mg tablet RxNorm: 222203 1-2 Tablet(s) PO QHS as needed for sleep 11/28/2017 12/27/2017 Inactive Generic For:XANAX 1M G 10/11/2016 11:15:13 AM mupirocin 2 % topical ointment RxNorm: 871005 1 Application OTIC BI D 11/28/2017 08/09/2018 Inactive Xanax 1 mg tablet RxNorm: 496938 1-2 Tablet(s) PO QHS as needed for sleep 10/27/2017 11/25/2017 Inactive Generic For:XANAX 1M G 10/11/2016 11:15:13 AM Macrobid 100 mg capsule RxNorm: 273859 1 Capsule(s) PO BID 10/11/19 18 10/16/2017 Inactive Medrol (Walter) 4 mg tablets in a dose pack RxNorm: 335270 Tablet(s) PO take as directed 10/10/2017 11/16/2017 Inactive Xanax 1 mg tablet RxNorm: 968722 1-2 Tablet(s) PO QHS as needed for sleep 09/28/2017 10/26/2017 Inactive Generic For:XANAX 1M G 10/11/2016 11:15:13 AM Xanax 1 mg tablet RxNorm: 119789 1-2 Tablet(s) PO QHS as needed for sleep 08/30/2017 09/27/2017 Inactive Generic For:XANAX 1M G 10/11/2016 11:15:13 AM Xanax 1 mg tablet RxNorm: 926609 1-2 Tablet(s) PO QHS as needed for sleep 08/30/2017 08/29/2017 Inactive Generic For:XANAX 1M G 10/11/2016 11:15:13 AM Xanax 1 mg tablet RxNorm: 363593 1-2 Tablet(s) PO QHS as needed for sleep 08/01/2017 08/29/2017 Inactive Generic For:XANAX 1M G 10/11/2016 11:15:13 AM Xanax 1 mg tablet RxNorm: 428033 1-2 Tablet(s) PO QHS as needed for sleep 06/29/2017 2017 Inactive Generic For:XANAX 1M G 10/11/2016 11:15:13 AM Claritin-D 24 Hour 10 mg-240 mg tablet,extended release RxNo rm: 4524214 1 Tablet(s) PO QD 06/29/2017 2017 Inactive levothyroxine 88 mcg tablet RxNorm: 601282 1 Tablet(s) PO QD 201709/10/2017 Inactive Xanax 1 mg tablet RxNorm: 629589 1-2 Tablet(s) PO QHS as needed for sleep 05/26/2017 06/28/2017 Inactive Generic For:XANAX 1M G 10/11/2016 11:15:13 AM Claritin-D 24 Hour 10 mg-240 mg tablet,extended release RxNo rm: 0063711 1 Tablet(s) PO QD 05/26/2017 06/24/2017 Inactive bupropion HCl SR 100 mg tablet,12 hr sustained-release RxNor m: 746651 Tablet(s) Take 1 tablet by mouth two times daily 04/06/2017 12/31/2017 Inactive - Ref: [id number] Xanax 1 mg tablet RxNorm: 281403 1-2 Tablet(s) PO QHS as needed for sleep 03/24/2017 05/22/2017 Inactive Generic For:XANAX 1M G 10/11/2016 11:15:13 AM Medrol (Walter) 4 mg tablets in a dose pack RxNorm: 527885 Tablet(s) P O 02/16/2017 03/27/2017 Inactive Xanax 1 mg tablet RxNorm: 000884 Tablet(s) TAKE ONE T O TWO TABLETS BY MOUTH AT BEDTIME NEEDED 02/16/2017 03/17/2017 Inactive Generic For:XA NAX 1MG 10/11/2016 11:15:13 AM Claritin-D 24 Hour 10 mg-240 mg tablet,extended release RxNo rm: 5520877 1 Tablet(s) PO QD 02/16/2017 04/16/2017 Inactive cefdinir 300 mg capsule RxNorm: 367461 2 Capsule(s) PO QD 02/16/2017 02/25/2017 Inactive Celexa 40 mg tablet RxNorm: 720105 Tablet(s) Take 1 tablet by m outh daily 12/23/2016 09/18/2017 Inactive - Ref: [id number] Xanax 1 mg tablet RxNorm: 869212 Tablet(s) TAKE ONE T O TWO TABLETS BY MOUTH AT BEDTIME NEEDED 12/16/2016 01/14/2017 Inactive Generic For:XA NAX 1MG 10/11/2016 11:15:13 AM Xanax 1 mg tablet RxNorm: 581361 Tablet(s) TAKE ONE T O TWO TABLETS BY MOUTH AT BEDTIME NEEDED 11/18/2016 12/15/2016 Inactive Generic For:XA NAX 1MG 10/11/2016 11:15:13 AM Xanax 1 mg tablet RxNorm: 493225 TAKE ONE TO TWO TABL ETS BY MOUTH AT BEDTIME NEEDED 10/11/2016 11/17/2016 Inactive Generic For:XANA X 1MG 10/11/2016 11:15:13 AM Mobic 15 mg tablet RxNorm: 179000 1 Tablet(s) PO QD 09/06/20162016 Inactive Claritin-D 24 Hour 10 mg-240 mg tablet,extended release RxNo rm: 3769418 1 Tablet(s) PO QD 09/02/2016 11/30/2016 Inactive prednisone 20 mg tablet RxNorm: 566522 1 Tablet(s) PO T ID for 3 days then 1 po BID for 3 days then one daily for 3 days 08/16/2016 03/27/2017 Inactiv e cefdinir 300 mg capsule RxNorm: 827180 2 Capsule(s) PO QD 08/16/2016 09/05/2016 Inactive Xanax 1 mg tablet RxNorm: 440918 TAKE ONE TO TWO TABL ETS BY MOUTH AT BEDTIME NEEDED 08/05/2016 10/11/2016 Inactive Generic For:XANA X 1MG 08/05/2016 2:27:03 PM08/04/2016 4:15:22 PM Singulair 10 mg tablet RxNorm: 480754 1 Tablet(s) PO QHS 07/06/2016 0 09/03/2016 Inactive prednisone 20 mg tablet RxNorm: 194293 1 Tablet(s) PO T ID for 3 days then 1 po BID for 3 days then one daily for 3 days 06/15/2016 07/05/2016 Inactiv e Singulair 10 mg tablet RxNorm: 979410 1 Tablet(s) PO QHS 06/15/2016 0 07/05/2016 Inactive cefdinir 300 mg capsule RxNorm: 305052 2 Capsule(s) PO QD 06/15/2016 07/05/2016 Inactive Xanax 1 mg tablet RxNorm: 318511 1-2 Tablet(s) PO QHS 05/21/201610/2016 Inactive Claritin-D 24 Hour 10 mg-240 mg tablet,extended release RxNo rm: 5990371 1 Tablet(s) PO QD 04/09/2016 07/07/2016 Inactive Xanax 1 mg tablet RxNorm: 578817 1-2 Tablet(s) PO QHS 03/23/201604/29 Inactive levothyroxine 88 mcg tablet RxNorm: 110090 1 Tablet(s) PO QD 201606/13/2017 Inactive bupropion HCl SR 100 mg tablet,sustained-release RxNorm: 993 503 Take 1 tablet by mouth two times daily 03/15/2016 12/09/2016 Inactive - Ref: 20 [id number] Celexa 40 mg tablet RxNorm: 380816 Take 1 tablet by mouth daily 12/23/2016 Inactive - Ref: [id number] Xanax 1 mg tablet RxNorm: 457282 1-2 Tablet(s) PO QHS 02/17/201603/01 Inactive levothyroxine 88 mcg tablet RxNorm: 631541 1 Tablet(s) PO QD 201502/22/2016 Inactive Xanax 1 mg tablet RxNorm: 943488 1-2 Tablet(s) PO QHS 11/25/201511/29 Inactive levothyroxine 88 mcg tablet RxNorm: 432213 1 Tablet(s) PO QD 201511/24/2015 Inactive temazepam 30 mg capsule RxNorm: 038676 1 Capsule(s) PO QHS 11/13/19 16 11/24/2015 Inactive Xanax 1 mg tablet RxNorm: 804855 1-2 Tablet(s) PO QHS 09/15/201510/29 Inactive Celexa 40 mg tablet RxNorm: 653676 1 Tablet(s) PO QD 1 Tablet(s ) PO QD 09/10/2015 09/16/2015 Inactive bupropion HCl SR 100 mg tablet,sustained-release RxNorm: 993 503 1 Tablet(s) PO BID 09/10/2015 09/23/2015 Inactive Xanax 1 mg tablet RxNorm: 124618 1-2 Tablet(s) PO QHS 09/10/201508/28 Inactive Xanax 1 mg tablet RxNorm: 804912 1-2 Tablet(s) PO QHS 08/11/201508/28 Inactive cyclobenzaprine 10 mg tablet RxNorm: 169586 1 Tablet(s) PO TID prn spasm 07/09/2015 11/23/2018 Inactive Celexa 40 mg tablet RxNorm: 675917 1 Tablet(s) PO QD 06/06/201508/03 Inactive Xanax 1 mg tablet RxNorm: 725471 1-2 Tablet(s) PO QHS 06/04/201505/2015 Inactive levothyroxine 88 mcg tablet RxNorm: 899163 1 Tablet(s) PO QD 201511/23/2015 Inactive Ceftin 500 mg tablet RxNorm: 834781 1 Tablet(s) PO BID 05/05/2015 Inactive Ceftin 500 mg tablet RxNorm: 939262 1 Tablet(s) PO BID 05/05/201507/2015 Inactive meloxicam 15 mg tablet RxNorm: 372098 1 Tablet(s) PO QD 04/16/2015 Inactive meloxicam 15 mg tablet RxNorm: 034879 1 Tablet(s) PO QD 04/16/2015 Inactive diclofenac sodium 75 mg tablet,delayed release RxNorm: 66032 6 1 Tablet(s) PO BID 04/04/2015 04/15/2015 Inactive diclofenac sodium 75 mg tablet,delayed release RxNorm: 49530 6 1 Tablet(s) PO BID 04/04/2015 04/03/2015 Inactive Tivorbex 40 mg capsule RxNorm: 1909819 1 Capsule(s) PO TID 03/24/1904/02/2015 Inactive bupropion HCl SR 100 mg tablet,sustained-release RxNorm: 993 503 1 Tablet(s) PO BID 03/11/2015 09/06/2015 Inactive cyclobenzaprine 10 mg tablet RxNorm: 744162 1 Tablet(s) PO TID prn spasm 03/11/2015 07/08/2015 Inactive levothyroxine 88 mcg tablet RxNorm: 505825 1 Tablet(s) PO QD 201405/27/2015 Inactive Claritin-D 24 Hour 10 mg-240 mg tablet,extended release RxNo rm: 3727150 1 Tablet(s) PO QD 02/27/2015 05/27/2015 Inactive cefuroxime axetil 500 mg tablet RxNorm: 578950 1 Tablet(s) PO BID 1 03/12/2015 Inactive Celexa 40 mg tablet RxNorm: 000215 1 Tablet(s) PO QD 02/05/201504/05 Inactive levothyroxine 75 mcg tablet RxNorm: 204244 1 Tablet(s) PO QD 201402/26/2015 Inactive Celexa 40 mg tablet RxNorm: 306686 1 Tablet(s) PO QD 10/09/201402/04 Inactive Activella 1 mg-0.5 mg tablet RxNorm: 1106343 1 Tablet(s) PO QD 08/2802/26/2015 Inactive bupropion HCl SR 100 mg tablet,sustained-release RxNorm: 993 503 1 Tablet(s) PO BID 09/12/2014 03/10/2015 Inactive levothyroxine 75 mcg tablet RxNorm: 003211 1 Tablet(s) PO QD 201412/09/2014 Inactive levothyroxine 75 mcg tablet RxNorm: 533542 1 Tablet(s) PO QD 201409/11/2014 Inactive Celexa 40 mg tablet RxNorm: 374248 1 Tablet(s) PO QD 08/12/201410/08 Inactive Xanax 1 mg tablet RxNorm: 030355 1-2 Tablet(s) PO QHS 08/12/201409/28 Inactive Claritin-D 24 Hour 10 mg-240 mg tablet,extended release RxNo rm: 3818835 1 Tablet(s) PO QD 06/13/2014 09/10/2014 Inactive cyclobenzaprine 10 mg tablet RxNorm: 672627 1 Tablet(s) PO TID prn spasm 06/12/2014 02/26/2015 Inactive Xanax 1 mg tablet RxNorm: 883230 1-2 Tablet(s) PO QHS 05/09/201406/28 Inactive levothyroxine 75 mcg tablet RxNorm: 506491 1 Tablet(s) PO QD 201407/08/2014 Inactive cephalexin 500 mg capsule RxNorm: 780022 1 Capsule(s) PO QOD 201402/26/2015 Inactive simvastatin 10 mg tablet RxNorm: 322534 1 Tablet(s) PO QHS 04/10/19 15 06/12/2014 Inactive Xanax 1 mg tablet RxNorm: 167634 1-2 Tablet(s) PO QHS 04/10/201404/28 Inactive levothyroxine 75 mcg tablet RxNorm: 329951 1 Tablet(s) PO QD 201404/09/2014 Inactive levothyroxine 75 mcg capsule RxNorm: 976054 1 Capsule(s) PO QD 03/3104/10/2014 Inactive Activella 1 mg-0.5 mg tablet RxNorm: 9005859 1 Tablet(s) PO QD 03/0109/11/2014 Inactive bupropion HCl SR 100 mg tablet,sustained-release RxNorm: 993 503 1 Tablet(s) PO BID 03/04/2014 08/30/2014 Inactive Activella 1 mg-0.5 mg tablet RxNorm: 0009611 1 Tablet(s) PO QD 01/2803/18/2014 Inactive levothyroxine 75 mcg capsule RxNorm: 115701 1 Capsule(s) PO QD 12/2904/08/2014 Inactive simvastatin 10 mg tablet RxNorm: 970837 1 Tablet(s) PO QHS 01/10/20 14 04/08/2014 Inactive cyclobenzaprine 10 mg tablet RxNorm: 527108 1 Tablet(s) PO TID prn spasm 01/09/2014 04/08/2014 Inactive Cipro 500 mg tablet RxNorm: 512474 1 Tablet(s) PO BID 12/25/201304/2013 Inactive Cipro 500 mg tablet RxNorm: 085804 1 Tablet(s) PO BID 12/25/201311/29 Inactive bupropion HCl SR 100 mg tablet,sustained-release RxNorm: 993 503 1 Tablet(s) PO QAM 12/11/2013 03/03/2014 Inactive cephalexin 500 mg capsule RxNorm: 425231 1 Capsule(s) PO QOD 201304/09/2014 Inactive Xanax 1 mg tablet RxNorm: 237224 1-2 Tablet(s) PO QHS 10/15/201310/29 Inactive simvastatin 10 mg tablet RxNorm: 913350 1 Tablet(s) PO QHS 10/11/19 14 01/07/2014 Inactive Celexa 40 mg tablet RxNorm: 537447 Tablet(s) PO TAKE 1 TABLET BY MOUTH ONCE DAILY. 09/18/2013 09/17/2013 Inactive Xanax 1 mg tablet RxNorm: 660625 1-2 Tablet(s) PO QHS 08/13/201308/28 Inactive simvastatin 10 mg tablet RxNorm: 805584 1 Tablet(s) PO QHS 07/12/19 14 10/08/2013 Inactive bupropion HCl SR 100 mg tablet,sustained-release RxNorm: 993 503 1 Tablet(s) PO QAM 05/22/2013 11/17/2013 Inactive Pamelor 10 mg capsule RxNorm: 638222 1 Capsule(s) PO QHS for PLATA /sleep 05/22/2013 06/04/2013 Inactive Xanax 1 mg tablet RxNorm: 551539 1-2 Tablet(s) PO QHS 05/15/201305/29 Inactive Pamelor 10 mg capsule RxNorm: 266672 1 Capsule(s) PO QHS for PLATA /sleep 05/15/2013 05/21/2013 Inactive Xanax 1 mg tablet RxNorm: 552680 1 Tablet(s) PO QHS 04/27/20132013 Inactive Zovirax 800 mg tablet RxNorm: 516464 1 Tablet(s) PO TID 04/05/2013 Inactive Xanax 1 mg tablet RxNorm: 251342 1 Tablet(s) PO QHS 04/03/2013 No Sto p Date Active bupropion HCl SR 100 mg tablet,sustained-release RxNorm: 993 503 1 Tablet(s) PO QAM 03/26/2013 05/21/2013 Inactive bupropion HCl SR 100 mg tablet,sustained-release RxNorm: 993 503 1 Tablet(s) PO QAM 03/06/2013 03/25/2013 Inactive Pamelor 10 mg capsule RxNorm: 868117 1 Capsule(s) PO QHS for PLATA /sleep 02/14/2013 05/14/2013 Inactive levothyroxine 75 mcg capsule RxNorm: 843992 1 Capsule(s) PO QD 12/2901/08/2014 Inactive simvastatin 10 mg tablet RxNorm: 707133 1 Tablet(s) PO QHS TAKE 1 TABLET BY MOUTH ONCE DAILY AT BEDTIME. 01/15/2013 07/10/2013 Inactive cyclobenzaprine 10 mg tablet RxNorm: 834249 1 Tablet(s) PO TID prn spasm 12/25/2012 06/22/2013 Inactive Pamelor 10 mg capsule RxNorm: 723688 1 Capsule(s) PO QHS for PLATA /sleep 11/29/2012 02/14/2013 Inactive Celexa 40 mg tablet RxNorm: 945196 Tablet(s) PO TAKE 1 TABLET BY MOUTH ONCE DAILY. 10/11/2012 09/17/2013 Inactive simvastatin 10 mg tablet RxNorm: 436343 Tablet(s) PO TA KE 1 TABLET BY MOUTH ONCE DAILY AT BEDTIME. 10/11/2012 01/14/2013 Inactive simvastatin 10 mg tablet RxNorm: 859548 1 Tablet(s) PO QD 07/11/2012 10/08/2012 Inactive simvastatin 10 mg tablet RxNorm: 767323 1 Tablet(s) PO QD 04/14/2012 07/11/2012 Inactive simvastatin 10 mg tablet RxNorm: 209742 1 Tablet(s) PO QD 04/14/2012 04/13/2012 Inactive Celexa 40 mg tablet RxNorm: 322798 1 Tablet(s) PO QD 03/15/201209/10 Inactive cyclobenzaprine 10 mg tablet RxNorm: 775503 1 Tablet(s) PO TID prn spasm 02/02/2012 02/01/2012 Inactive cyclobenzaprine 10 mg tablet RxNorm: 027841 1 Tablet(s) PO TID prn spasm 02/02/2012 07/30/2012 Inactive Diflucan 100 mg Tab RxNorm: 861735 1 Tablet(s) PO QD 08/17/201108/22 Inactive Cipro 250 mg Tab RxNorm: 324172 1 Tablet(s) PO QD 08/17/2011 10/15/19 12 Inactive Levaquin 500 mg Tab RxNorm: 078088 1 Tablet(s) PO QD 08/17/201108/22 Inactive Pyridium 200 mg Tab RxNorm: 7513447 1 Tablet(s) PO TID 10/14/2010 Inactive may turn urine orange-red color. Cipro 500 mg Tab RxNorm: 508642 1 Tablet(s) PO BID 10/14/2010 011 Inactive levothyroxine 75 mcg capsule RxNorm: 433673 1 Capsule(s) PO QD 12/3001/14/2011 Inactive Vitamin D3 5,000 unit tablet RxNorm: 883935 1 Tablet(s) PO QD No Star t Date Active Nasacort 55 mcg nasal spray aerosol RxNorm: 2768264 2 Sp ray NASAL each nostril QHS No Start Date Active cyclobenzaprine 10 mg tablet RxNorm: 681645 1 Tablet(s) PO TID as needed No Start Date 11/22/2018 Inactive Vitamin D2 1,000 unit capsule RxNorm: 568687 3 Capsule(s) PO QD No Start Date 11/16/2017 Inactive diclofenac sodium 75 mg tablet,delayed release RxNorm: 18086 6 1 Tablet(s) PO BID No Start Date 03/16/2016 Inactive cephalexin 500 mg capsule RxNorm: 709176 1 Capsule(s) PO QOD No Sta rt Date 12/04/2013 Inactive cyclobenzaprine 10 mg tablet RxNorm: 864627 1 Tablet(s) PO QHS No S tart Date 02/01/2012 Inactive loratadine 10 mg tablet RxNorm: 271179 1 Tablet(s) PO QHS No Start Date 05/14/2019 Inactive hydrocodone 5 mg-acetaminophen 500 mg tablet RxNorm: 376346 1 -2 Tablet(s) PO Q6H as needed No Start Date 08/09/2018 Inactive etodolac 400 mg tablet RxNorm: 586663 1 Tablet(s) PO TID No Start D ate 09/17/2018 Inactive Xanax 1 mg tablet RxNorm: 222998 1 Tablet(s) PO QHS No Start Date 04/2013 Inactive Vitamin D3 1,000 unit capsule RxNorm: 170447 1 Capsule(s) PO QD No Start Date 06/12/2014 Inactive estradiol 2 mg tablet RxNorm: 022699 1/2 Tablet(s) PO QD No Start D ate 03/05/2013 Inactive Celexa 40 mg tablet RxNorm: 926785 1 Tablet(s) PO QD No Start Date Inactive Activella 1 mg-0.5 mg tablet RxNorm: 7563435 1 Tablet(s) PO QD No S tart Date 07/10/2012 Inactive medroxyprogesterone 5 mg tablet RxNorm: 6449263 1/2 Tablet(s) PO QD No Start Date 03/05/2013 Inactive levothyroxine 88 mcg tablet RxNorm: 171390 1 Tablet(s) PO QD No Sta rt Date 02/26/2015 Inactive Keflex 500 mg capsule RxNorm: 611476 1 Capsule(s) PO PRN No Start D ate 08/16/2011 Inactive Activella 1 mg-0.5 mg tablet RxNorm: 5889598 1 Tablet(s) PO QHS No Start Date 03/27/2017 Inactive Activella 1 mg-0.5 mg tablet RxNorm: 8534215 1 Tablet(s) PO QD No S tart Date 02/06/2014 Inactive Flexeril 10 mg Tab RxNorm: 433662 1 Tablet(s) PO TID No Start Date Inactive prn spasm simvastatin 10 mg tablet RxNorm: 039657 1 Tablet(s) PO QD No Start Date 04/13/2012 Inactive Medication Administered No Medication Administered data Immunizations Vaccine Codes Date Status Influenza CVX: 135 01/16/2019 Complete Pneumococcal CVX: 133 01/16/2019 Complete Results No Results data Procedures Procedure Codes Date DEXAMETHASONE SODIUM PHOS CPT-4: J1100 05/14/2019 THER/PROPH/DIAG INJ SC/IM CPT-4: 95912 05/14/2019 TRIAMCINOLONE ACET INJ NOS CPT-4: J3301 05/14/2019 FLU VACC PRSV FREE INC ANTIG 65 AND OLDER CPT-4: 84446 01/16/2019 FLU VACC PRSV FREE INC ANTIG 65 AND OLDER CPT-4: 69105 01/16/2019 PNEUMOCOCCAL VACC 13 NARESH IM CPT-4: 43523 01/16/2019 SKIN FUNGI CULTURE CPT-4: 35705 01/16/2019 IMMUNIZATION ADMIN CPT-4: 80327 01/16/2019 IMMUNIZATION ADMIN EACH ADD CPT-4: 78127 01/16/2019 THER/PROPH/DIAG INJ SC/IM CPT-4: 24245 01/17/2018 KETOROLAC TROMETHAMINE INJ CPT-4: J1885 01/17/2018 THER/PROPH/DIAG INJ SC/IM CPT-4: 65112 01/17/2018 PROMETHAZINE HCL INJECTION CPT-4: J2550 01/17/2018 URINALYSIS NONAUTO W/O SCOPE CPT-4: 91323 12/29/2017 URINE CULTURE/ COLONY COUNT CPT-4: 03967 12/29/2017 THER/PROPH/DIAG INJ SC/IM CPT-4: 75127 11/30/2017 TRIAMCINOLONE ACET INJ NOS CPT-4: J3301 11/30/2017 DEXAMETHASONE SODIUM PHOS CPT-4: J1100 11/30/2017 CEFTRIAXONE SODIUM INJECTION CPT-4: J0696 11/29/2017 THER/PROPH/DIAG INJ SC/IM CPT-4: 26697 11/29/2017 CEFTRIAXONE SODIUM INJECTION CPT-4: J0696 11/28/2017 THER/PROPH/DIAG INJ SC/IM CPT-4: 25431 11/28/2017 URINALYSIS NONAUTO W/O SCOPE CPT-4: 29968 10/10/2017 THER/PROPH/DIAG INJ SC/IM CPT-4: 21083 10/10/2017 TRIAMCINOLONE ACET INJ NOS CPT-4: J3301 10/10/2017 DEXAMETHASONE SODIUM PHOS CPT-4: J1100 10/10/2017 CEFTRIAXONE SODIUM INJECTION CPT-4: J0696 10/10/2017 THER/PROPH/DIAG INJ SC/IM CPT-4: 13183 10/10/2017 URINE CULTURE/ COLONY COUNT CPT-4: 17435 10/10/2017 THER/PROPH/DIAG INJ SC/IM CPT-4: 90836 11/02/2016 KETOROLAC TROMETHAMINE INJ CPT-4: J1885 11/02/2016 THER/PROPH/DIAG INJ SC/IM CPT-4: 27154 06/15/2016 TRIAMCINOLONE ACET INJ NOS CPT-4: J3301 06/15/2016 DEXAMETHASONE SODIUM PHOS CPT-4: J1100 06/15/2016 THER/PROPH/DIAG INJ SC/IM CPT-4: 81661 04/09/2016 KETOROLAC TROMETHAMINE INJ CPT-4: J1885 04/09/2016 PROMETHAZINE HCL INJECTION CPT-4: J2550 04/09/2016 EXC TR-EXT B9+ERASMO 0.5 CM< CPT-4: 51520 06/12/2015 URINALYSIS NONAUTO W/O SCOPE CPT-4: 67266 05/05/2015 URINE CULTURE/ COLONY COUNT CPT-4: 17096 05/05/2015 URINALYSIS NONAUTO W/O SCOPE CPT-4: 70462 03/24/2015 URINALYSIS NONAUTO W/O SCOPE CPT-4: 24044 02/27/2015 URINE CULTURE/ COLONY COUNT CPT-4: 69483 02/27/2015 THER/PROPH/DIAG INJ SC/IM CPT-4: 29979 04/18/2014 KETOROLAC TROMETHAMINE INJ CPT-4: J1885 04/18/2014 THER/PROPH/DIAG INJ SC/IM CPT-4: 21251 06/05/2013 TRIAMCINOLONE ACET INJ NOS CPT-4: J3301 06/05/2013 THER/PROPH/DIAG INJ SC/IM CPT-4: 16854 11/29/2012 KETOROLAC TROMETHAMINE INJ CPT-4: J1885 11/29/2012 URINALYSIS NONAUTO W/O SCOPE CPT-4: 64118 07/11/2012 URINE CULTURE/ COLONY COUNT CPT-4: 85570 07/11/2012 OCCULT BLOOD FECES CPT-4: 93917 02/17/2012 URINALYSIS NONAUTO W/O SCOPE CPT-4: 07540 08/27/2011 URINE CULTURE/ COLONY COUNT CPT-4: 81212 08/27/2011 URINALYSIS NONAUTO W/O SCOPE CPT-4: 45288 08/17/2011 URINE CULTURE/ COLONY COUNT CPT-4: 24352 08/17/2011 URINALYSIS NONAUTO W/O SCOPE CPT-4: 16526 12/28/2010 URINE CULTURE/ COLONY COUNT CPT-4: 47540 12/28/2010 URINALYSIS NONAUTO W/O SCOPE CPT-4: 06463 11/09/2010 URINE CULTURE/ COLONY COUNT CPT-4: 68712 11/09/2010 URINALYSIS NONAUTO W/O SCOPE CPT-4: 77450 10/29/2010 URINE CULTURE/ COLONY COUNT CPT-4: 83993 10/29/2010 URINE CULTURE/ COLONY COUNT CPT-4: 91158 10/14/2010 URINALYSIS NONAUTO W/O SCOPE CPT-4: 12231 10/14/2010 Vital Signs Date Vital 06/26/2019 Blood [...] 1: 122/74 Code: 8480-6 BMI: 22.0 Code: 41284-3 Heart Rate 1: 72 bpm Height: 5'3" [...] 1: 126/72 Code: 8480-6 BMI: 22.7 Code: 97887-4 Heart Rate 1: 72 bpm Height: 5'3" [...] 1: 112/70 Code: 8480-6 BMI: 22.0 Code: 30160-7 Heart Rate 1: 80 bpm Height: 5'3" [...] 1: 122/64 Code: 8480-6 BMI: 21.4 Code: 54781-1 Heart Rate 1: 88 bpm Height: 5'3" Respiratory Rate: 22 bpm SpO2: 96% Tempera ture: 36.8 (C) / 98.2 (F) Weight: 121 lbs 06/22/2017 Blood Pressure 1: 124/78 Code: 8480-6 BMI: 21.6 Code: 23290-2 Heart Rate 1: 76 bpm Height: 5'3" Respiratory Rate: 20 bpm Temperature: 36 .8 (C) / 98.3 (F) Weight: 122 lbs 03/28/2017 Blood Pressure 1: 92/60 Code: 8480-6 BMI: 20.4 C ode: 39274-2 Heart Rate 1: 72 bpm Height: 5'3" Respiratory Rate: 20 bpm Temperature: 36 .9 (C) / 98.4 (F) Weight: 115 lbs 02/16/2017 Blood Pressure 1: 106/70 Code: 8480-6 BMI: 21.3 Code: 88874-8 Heart Rate 1: 82 bpm Height: 5'3" Respiratory Rate: 22 bpm SpO2: 97% Tempera ture: 36.1 (C) / 97.0 (F) Weight: 120 lbs 09/06/2016 Blood Pressure 1: 118/64 Code: 8480-6 BMI: 22.7 Code: 75178-6 Heart Rate 1: 78 bpm Height: 5'3" Respiratory Rate: 20 bpm SpO2: 98% Tempera ture: 36.2 (C) / 97.2 (F) Weight: 128 lbs 08/16/2016 Blood Pressure 1: 118/78 Code: 8480-6 BMI: 22.1 Code: 02934-1 Heart Rate 1: 78 bpm Height: 5'3" Respiratory Rate: 20 bpm SpO2: 97% Tempera ture: 36.2 (C) / 97.1 (F) Weight: 125 lbs 07/19/2016 Blood Pressure 1: 116/68 Code: 8480-6 BMI: 22.5 Code: 54934-1 Heart Rate 1: 76 bpm Height: 5'3" Respiratory Rate: 20 bpm Temperature: 36 .8 (C) / 98.2 (F) Weight: 127 lbs 07/06/2016 Blood Pressure 1: 106/70 Code: 8480-6 BMI: 22.5 Code: 08820-6 Heart Rate 1: 72 bpm Height: 5'3" Respiratory Rate: 20 bpm SpO2: 97% Tempera ture: 36.8 (C) / 98.2 (F) Weight: 127 lbs 06/15/2016 Blood Pressure 1: 136/76 Code: 8480-6 BMI: 22.9 Code: 64577-1 Heart Rate 1: 74 bpm Height: 5'3" Respiratory Rate: 18 bpm SpO2: 98% Tempera ture: 36.4 (C) / 97.6 (F) Weight: 129 lbs 04/09/2016 Blood Pressure 1: 124/78 Code: 8480-6 BMI: 23.0 Code: 60083-9 Heart Rate 1: 86 bpm Height: 5'3" Respiratory Rate: 20 bpm SpO2: 96% Tempera ture: 36.5 (C) / 97.7 (F) Weight: 130 lbs 03/17/2016 Blood Pressure 1: 116/74 Code: 8480-6 BMI: 23.4 Code: 27223-2 Heart Rate 1: 84 bpm Height: 5'3" Respiratory Rate: 20 bpm SpO2: 97% Tempera ture: 36.8 (C) / 98.3 (F) Weight: 132 lbs 11/13/2015 Blood Pressure 1: 124/78 Code: 8480-6 BMI: 23.4 Code: 98496-3 Heart Rate 1: 88 bpm Height: 5'3" Respiratory Rate: 24 bpm SpO2: 98% Tempera ture: 36.8 (C) / 98.2 (F) Weight: 132 lbs 06/12/2015 Blood Pressure 1: 126/78 Code: 8480-6 BMI: 23.6 Code: 93231-1 Heart Rate 1: 80 bpm Height: 5'3" Respiratory Rate: 20 bpm Temperature: 36 .9 (C) / 98.4 (F) Weight: 133 lbs 04/22/2015 Blood Pressure 1: 126/68 Code: 8480-6 BMI: 23.6 Code: 27918-3 Heart Rate 1: 80 bpm Height: 5'3" Respiratory Rate: 20 bpm Temperature: 36 .6 (C) / 97.9 (F) Weight: 133 lbs 03/24/2015 Blood Pressure 1: 116/66 Code: 8480-6 BMI: 22.9 Code: 57826-4 Heart Rate 1: 74 bpm Height: 5'3" Respiratory Rate: 20 bpm Temperature: 36 .4 (C) / 97.6 (F) Weight: 129 lbs 02/27/2015 Blood Pressure 1: 106/64 Code: 8480-6 BMI: 22.7 Code: 99616-2 Heart Rate 1: 74 bpm Height: 5'3" Respiratory Rate: 20 bpm Temperature: 36 .8 (C) / 98.2 (F) Weight: 128 lbs 06/13/2014 Blood Pressure 1: 104/66 Code: 8480-6 BMI: 22.7 Code: 08886-1 Heart Rate 1: 84 bpm Height: 5'3" Respiratory Rate: 20 bpm Temperature: 37 .0 (C) / 98.6 (F) Weight: 128 lbs 04/18/2014 Blood Pressure 1: 112/62 Code: 8480-6 BMI: 22.0 Code: 18659-7 Heart Rate 1: 82 bpm Height: 5'3" Respiratory Rate: 18 bpm Temperature: 36 .4 (C) / 97.6 (F) Weight: 124 lbs 12/05/2013 Blood Pressure 1: 106/70 Code: 8480-6 BMI: 23.7 Code: 30192-4 Heart Rate 1: 84 bpm Height: 5'3" [...] 1: 126/88 Code: 8480-6 BMI: 22.3 Code: 41298-9 Heart Rate 1: 96 bpm Height: 5'4" Respiratory Rate: 20 bpm Temperature: 37 .7 (C) / 99.9 (F) Weight: 130 lbs 11/29/2012 Blood Pressure 1: 122/76 Code: 8480-6 BMI: 23.0 Code: 80658-4 Heart Rate 1: 84 bpm Height: 5'4" Respiratory Rate: 20 bpm Temperature: 36 .9 (C) / 98.4 (F) Weight: 134 lbs 09/26/2012 Blood Pressure 1: 114/76 Code: 8480-6 BMI: 23.0 Code: 54751-0 Heart Rate 1: 84 bpm Height: 5'4" Respiratory Rate: 20 bpm Temperature: 37 .3 (C) / 99.1 (F) Weight: 134 lbs 07/11/2012 Blood Pressure 1: 126/78 Code: 8480-6 BMI: 23.7 Code: 90090-4 Heart Rate 1: 76 bpm Height: 5'4" Respiratory Rate: 20 bpm Temperature: 37 .1 (C) / 98.7 (F) Weight: 138 lbs 02/02/2012 Blood Pressure 1: 108/70 Code: 8480-6 BMI: 23.2 Code: 64024-1 Heart Rate 1: 88 bpm Height: 5'4" Respiratory Rate: 20 bpm Temperature: 36 .4 (C) / 97.6 (F) Weight: 135 lbs 08/17/2011 Blood Pressure 1: 108/70 Code: 8480-6 BMI: 23.2 Code: 39038-3 Heart Rate 1: 72 bpm Height: 5'4" Respiratory Rate: 20 bpm Temperature: 36 .8 (C) / 98.2 (F) Weight: 135 lbs 10/14/2010 Blood Pressure 1: 120/72 Code: 8480-6 BMI: 23.4 Code: 76726-0 Heart Rate 1: 78 bpm Height: 5'3" [...] EST Diagnosis: Allergic dermatitis[ICD10: L23.9] Alexandra Louise [employer] CPT-4: 61581 06/26/2019 ([id number]) OFFICE/OUTPATIENT VISIT EST Diagnosis: Contact dermatitis due to plant[ICD10: L25.5] Diagnosis: Cellulitis of left arm[ICD10: L03.114] Vandana Crowe PHILOMENA ALLEN [employer] CPT-4: 67482 05/14/2019 ([id number]) OFFICE/OUTPATIENT VISIT EST Diagnosis: Ventral hernia[ICD10: K43.9] Diagnosis: Incisional hernia[ICD10: K43.2] Alexandra CARROLL [facility] CPT-4: 39427 04/10/2019 ([id number]) OFFICE/OUTPATIENT VISIT EST Diagnosis: Insomnia[ICD10: G47.00] Diagnosis: Thrombocytosis[ICD10: D47.3] Alexandra CARROLL [facility] CPT-4: 02561 02/14/2019 ([id number]) OFFICE/OUTPATIENT VISIT EST Diagnosis: Small bowel obstruction[ICD10: K56.609] Diagnosis: FLU VACCINE[ICD10: Z23] Diagnosis: PNEUMOCOCCAL VACCINE[ICD10: Z23] Diagnosis: Onychomycosis[ICD10: B35.1] Alexandra KUNZ [facility] CPT-4: 01395 01/16/2019 ([id number]) OFFICE/OUTPATIENT VISIT EST Diagnosis: Diarrhea, unspecified[ICD10: R19.7] Diagnosis: Radiculopathy, lumbosacral region[ICD10: M54.17] Alexandra CARROLL [facility] CPT-4: 41543 09/18/2018 OFFICE/OUTPATIENT VISIT EST Diagnosis: Other intervertebral disc degeneration, lumbar region[ICD10: M51.36] Diagnosis: Sacroiliitis, not elsewhere classified[ICD10: M46.1] Diagnosis: Obstructive sleep apnea (adult) (pediatric)[ICD10: G47.33] Alexandra CARROLL [facility] CPT-4: 03253 08/10/2018 ([id number]) OFFICE/OUTPATIENT VISIT EST Diagnosis: Fracture of unspecified part of left clavicle, subsequent encounter for fracture with routine healing[ICD10: S42.002D] Diagnosis: Cervicalgia[ICD10: M54.2] Diagnosis: Radiculopathy, lumbosacral region[ICD10: M54.17] Alexandra CARROLL [facility] CPT-4: 35317 03/27/2018 ([id number]) OFFICE/OUTPATIENT VISIT EST Diagnosis: Fracture of unspecified part of left clavicle, subsequent encounter for fracture with routine healing[ICD10: S42.002D] Diagnosis: Other intervertebral disc degeneration, lumbar region[ICD10: M51.36] Diagnosis: Unspecified fracture of first thoracic vertebra, subsequent encounter for fracture with routine healing[ICD10: S22.019D] Diagnosis: Unspecified fracture of second thoracic vertebra, subsequent encounter for fracture with routine healing[ICD10: S22.029D] Alexandra CARROLL [facility] CPT-4: 44679 02/23/2018 ([id number]) OFFICE/OUTPATIENT VISIT EST Diagnosis: Fracture of unspecified part of left clavicle, subsequent encounter for fracture with routine healing[ICD10: S42.002D] Diagnosis: Unspecified fracture of first thoracic vertebra, subsequent encounter for fracture with routine healing[ICD10: S22.019D] Diagnosis: Unspecified fracture of second thoracic vertebra, subsequent encounter for fracture with routine healing[ICD10: S22.029D] Alexandra CARROLL [facility] CPT-4: 54050 01/24/2018 ([id number]) OFFICE/OUTPATIENT VISIT EST Diagnosis: Migraine, unspecified, not intractable, without status migrainosus[ICD10: G43.909] Alexandra CARROLL [facility] CPT - 4: 26709 01/17/2018 ([id number]) OFFICE/OUTPATIENT VISIT EST Diagnosis: Hematuria, unspecified[ICD10: R31.9] Diagnosis: Other intervertebral disc degeneration, lumbar region[ICD10: M51.36] Diagnosis: Retention of urine, unspecified[ICD10: R33.9] Alexandrateja CARROLL [facility] CPT-4: 23662 12/29/2017 OFFICE/OUTPATIENT VISIT EST Diagnosis: Fracture of [...] Low back pain[ICD10: M54.5] Alexandra KUNZ DO [facility] CPT-4: 00631 12/06/2017 ([id number]) OFFICE/OUTPATIENT VISIT EST Diagnosis: Cellulitis of right upper limb[ICD10: L03.113] Diagnosis: Allergy status to other antibiotic agents status[ICD10: Z88.1] Vandana CARROLL DO [facility] CPT-4: 27961 12/01/2017 ([id number]) OFFICE/OUTPATIENT VISIT EST Diagnosis: Cellulitis of right upper limb[ICD10: L03.113] Diagnosis: Allergy status to other antibiotic agents status[ICD10: Z88.1] Vandana CARROLL DO [facility] CPT-4: 75753 11/30/2017 ([id number]) OFFICE/OUTPATIENT VISIT EST Diagnosis: Cellulitis of right upper limb[ICD10: L03.113] Vandana CARROLL DO [facility] CPT-4: 21235 11/29/2017 ([id number]) OFFICE/OUTPATIENT VISIT EST Diagnosis: Cellulitis of right upper limb[ICD10: L03.113] Vandana CARROLL DO [facility] CPT-4: 82206 11/28/2017 ([id number]) OFFICE/OUTPATIENT VISIT EST Diagnosis: Other intervertebral disc degeneration, lumbar region[ICD10: M51.36] Diagnosis: Other retention of urine[ICD10: R33.8] Diagnosis: Primary insomnia[ICD10: F51.01] Diagnosis: Other spondylosis, site unspecified[ICD10: M47.899] Alexandra CARROLL DO [facility] CPT-4: 59678 11/17/2017 ([id number]) OFFICE/OUTPATIENT VISIT EST Diagnosis: Radiculopathy, lumbosacral region[ICD10: M54.17] Diagnosis: Other retention of urine[ICD10: R33.8] Diagnosis: Urinary tract infection, site not specified[ICD10: N39.0] Vandana CARROLL DO [facility] CPT-4: 76615 10/10/2017 ([id number]) PREV VISIT EST AGE 40-64 Diagnosis: Encounter for general adult medical examination without abnormal findings[ICD10: Z00.00] Diagnosis: Other intervertebral disc degeneration, lumbar region[ICD10: M51.36] Diagnosis: Hypothyroidism, unspecified[ICD10: E03.9] Diagnosis: Mixed hyperlipidemia[ICD10: E78.2] Alexandradanielle CARROLL [facility] CPT-4: 48234 06/22/2017 ([id number]) OFFICE/OUTPATIENT VISIT EST Diagnosis: URI, ACUTE[ICD10: J06.9] Alexandra PLATT [facility] CPT-4: 27529 03/28/2017 OFFICE/OUTPATIENT VISIT EST Diagnosis: Acute sinusitis, unspecified[ICD10: J01.90] [facility] 17017 02/16/2017 ([id number]) OFFICE/OUTPATIENT VISIT EST Diagnosis: Migraine, unspecified, not intractable, without status migrainosus[ICD10: G43.909] [facility]PT - [facility]: 70002 11/02/2016 ([id number]) OFFICE/OUTPATIENT VISIT EST Diagnosis: Pain in thoracic spine[ICD10: M54.6] Diagnosis: Chondrocostal junction syndrome [Tietze][ICD10: M94.0] [facility]: 24039 09/06/2016 OFFICE/OUTPATIENT VISIT EST Diagnosis: Acute sinusitis, unspecified[ICD10: J01.90] Vidya Manuel [facility] CPT-[facility]: 21580 08/16/2016 ([id number]) OFFICE/OUTPATIENT VISIT EST Diagnosis: Primary insomnia[ICD10: F51.01] Diagnosis: Cramp and spasm[ICD10: R25.2] Diagnosis: Major depressive disorder, single episode, mild[ICD10: F32.0] [facility]: 44045 07/19/2016 ([id number]) OFFICE/OUTPATIENT VISIT EST Diagnosis: Obstructive sleep apnea (adult) (pediatric)[ICD10: G47.33] Diagnosis: Other fatigue[ICD10: R53.83] Diagnosis: Allergic rhinitis due to pollen[ICD10: J30.1] Diagnosis: Headache[ICD10: R51] Alexandra Carroll ALEXANDRA MacyAri GLEN [facility] CPT-4: 80884 07/06/2016 ([id number]) OFFICE/OUTPATIENT VISIT EST Diagnosis: Acute recurrent sinusitis, unspecified[ICD10: J01.91] Diagnosis: Allergic rhinitis due to pollen[ICD10: J30.1] Alexandra Danejames MARINALEXANDRA MacyAri [facility]EN SALGUERO [facility] CPT-4: 60891 06/15/2016 ([id number]) OFFICE/OUTPATIENT VISIT EST Diagnosis: Migraine, unspecified, not intractable, without status migrainosus[ICD10: G43.909] Diagnosis: Allergic rhinitis, unspecified[ICD10: J30.9] Nae Mckay ALEXANDRA MacyAri [facility] CPT-4: 54849 04/09/2016 ([id number]) OFFICE/OUTPATIENT VISIT EST Diagnosis: Hypothyroidism, unspecified[ICD10: E03.9] Diagnosis: Other fatigue[ICD10: R53.83] Diagnosis: Mixed hyperlipidemia[ICD10: E78.2] Diagnosis: Major depressive disorder, single episode, mild[ICD10: F32.0] Alexandra Glen SHAFFERLINE MacyAri GLEN [facility] CPT-4: 24236 03/17/2016 ([id number]) OFFICE/OUTPATIENT VISIT EST Diagnosis: Insomnia, unspecified[ICD10: G47.00] Diagnosis: Encounter for therapeutic drug level monitoring[ICD10: Z51.81] Naety Mckay ALEXANDRA MacyAri [facility] CPT-4: 79771 11/13/2015 ([id number]) OFFICE/OUTPATIENT VISIT EST Diagnosis: Hematuria, unspecified[ICD10: R31.9] Alexandra Danejames MARINQUE DANIELLE MacyAri GL[facility] CPT-4: 12806 05/05/2015 ([id number]) OFFICE/OUTPATIENT VISIT EST Diagnosis: Other intervertebral disc degeneration, lumbar region[ICD10: M51.36] Diagnosis: Radiculopathy, lumbosacral region[ICD10: M54.17] Alexandra FORDE MacyAri [facility] CPT-4: 22259 04/22/2015 ([id number]) OFFICE/OUTPATIENT VISIT EST Diagnosis: Low back pain[ICD10: M54.5] Diagnosis: Recurrent and persistent hematuria with unspecified morphologic changes[ICD10: N02.9] Alexandra CARROLL [facility] CPT-4: 82438 03/24/2015 ([id number]) OFFICE/OUTPATIENT VISIT EST Diagnosis: Acute sinusitis, unspecified[ICD10: J01.90] Diagnosis: Headache[ICD10: R51] Diagnosis: Retention of urine, unspecified[ICD10: R33.9] Diagnosis: Hypothyroidism, unspecified[ICD10: E03.9] Alexandra Glen SHAFFERLINE Ty CARROLL [facility] CPT-4: 34588 02/27/2015 ([id number]) PREV VISIT EST AGE 40-64 Diagnosis: ROUTINE MEDICAL EXAM[ICD9: V70.0] Diagnosis: HYPOTHYROIDISM[ICD9: 244.9] Diagnosis: HYPERLIPIDEMIA NEC/NOS[ICD9: 272.4] Alexandra CORDOBA Ty CARROLL [facility] CPT-4: 52942 06/13/2014 ([id number]) OFFICE/OUTPATIENT VISIT EST Diagnosis: CEPHALGIA[ICD9: 784.0] Diagnosis: Nausea[ICD9: 787.02] Shalini Romeo ALEXANDRA Ty CARROLL [facility] CPT-4: 36900 04/18/2014 ([id number]) OFFICE/OUTPATIENT VISIT EST Diagnosis: INSOMNIA NOS[ICD9: 780.52] Diagnosis: Complicated grieving[ICD9: 309.0] Alexandra Louise MacyAri GLEN [facility] CPT-4: 78685 12/05/2013 ([id number]) OFFICE/OUTPATIENT VISIT EST Diagnosis: Muscle twitch[ICD9: 781.0] Diagnosis: ALLERGIC RHINITIS[ICD9: 477.9] Alexandra FORDE Macy Ari GLEN [facility] CPT-4: 61217 06/05/2013 ([id number]) OFFICE/OUTPATIENT VISIT EST Diagnosis: DEPRESSIVE DISORDER NEC[ICD9: 311] Alexandra QUINTERO MacyAri [facility] CPT-4: 98994 05/22/2013 OFFICE/OUTPATIENT VISIT EST Diagnosis: Shingles[ICD9: 053.9] Alexandra CARROLL [facility] CPT-4: 64970 04/05/2013 ([id number]) OFFICE/OUTPATIENT VISIT EST Diagnosis: DEPRESSIVE DISORDER NEC[ICD9: 311] [facility]: 43996 03/26/2013 ([id number]) OFFICE/OUTPATIENT VISIT EST Diagnosis: Complicated grieving[ICD9: 309.0] Alexandra CARROLL [facility] CPT-4: 65309 03/06/2013 ([id number]) OFFICE/OUTPATIENT VISIT EST Diagnosis: CEPHALGIA, TENSION[ICD9: 307.81] Diagnosis: MIGRAINE NOS/NOT INTRCBL[ICD9: 346.90] Diagnosis: Cervicalgia[ICD9: 723.1] Alexandra PLATT [facility] CPT-4: 75481 11/29/2012 ([id number]) OFFICE/OUTPATIENT VISIT EST Diagnosis: Jaw pain[ICD9: 784.92] Diagnosis: Shoulder pain[ICD9: 719.41] Diagnosis: Family history of premature coronary artery disease[ICD9: V17.3] Alexandra CARROLL [facility] CPT-4: 80714 09/26/2012 ([id number]) OFFICE/OUTPATIENT VISIT EST Diagnosis: ABDOMINAL PAIN[ICD9: 789.00] Diagnosis: Constipation[ICD9: 564.00] Diagnosis: Hematuria[ICD9: 599.70] [facility] CPT-4: 64825 07/11/2012 ([id number]) OFFICE/OUTPATIENT VISIT EST Diagnosis: ANEMIA NOS[ICD9: 285.9] [facility] CPT-4: 15845 02/17/2012 ([id number]) PREV VISIT EST AGE 40-64 Diagnosis: ROUTINE MEDICAL EXAM[ICD9: V70.0] Diagnosis: HYPOTHYROIDISM[ICD9: 244.9] Diagnosis: HYPERLIPIDEMIA NEC/NOS[ICD9: 272.4] Diagnosis: Obstructive sleep apnea[ICD9: 327.23] Alexandra CARROLL DO [facility] CPT-4: 20283 02/02/2012 ([id number]) OFFICE/OUTPATIENT VISIT EST Diagnosis: URINARY TRACT INFECTION[ICD9: 599.0] Alexandra CARROLL DO [facility] CPT-4: 83287 08/27/2011 ([id number]) OFFICE/OUTPATIENT VISIT EST Diagnosis: URINARY TRACT INFECTION[ICD9: 599.0] Diagnosis: ACUTE CYSTITIS[ICD9: 595.0] Alexandra FORDE S. Billie RENDER DO [facility] CPT-4: 35322 08/17/2011 OFFICE/OUTPATIENT VISIT EST Diagnosis: URINARY TRACT INFECTION[ICD9: 599.0] Steph CARROLL DO [facility] CPT-4: 21789 10/14/2010 Plan of Care Planned Activity Notes Codes Status Date Visit Diagnosis Plan: Allergic dermatitis Discussion: Could be numerous things that were given during surgery Continue benadryl Add Prednisone Notify if persists/worsens ICD-9 : 692.9 ICD-10 : L23.9 06/26/2019 Patient Education: prednisone- [employer] Coupon [phone] [email or web address] Completed 06/26/2019 Visit Diagnosis Plan: Contact dermatitis due to plant Discussion: kenalog 40 and dexa 4 given in office. i called the office of dr. albert to make sure he was ok with patient receiving steroid injection a week pre-op and dr. albert's embedded hardware engineer voiced ok to give. ICD-9 : 692.6 ICD-10 : L25.5 05/14/2019 Visit Diagnosis Plan: Cellulitis of left arm Discussio n: due to patient's multiple allergies, levaquin was prescribed to take as directed. call office with new or worsening symptoms. ICD-9 : 682.3 ICD-10 : L03.114 05/14/2019 Appointment: Vandana Crowe [address] [place], [place] [id number] ACUTE I[facility]NESS 05/14/2019 Patient Education: Levaquin- [employer] Coupon [phone] [email or web address]/[email or web address] Completed 05/14/2019 Visit Diagnosis Plan: Ventral hernia Discussion: See s urgery for repair Discussed signs of incarceration or strangulation then is to report to ER ICD-9 : 553.20 ICD-10 : K43.9 04/10/2019 Appointment: Alexandra Carroll WPtel: [address] [place], [place] [phone] [place] left second message 04/10/19 at 10:20 ACUTE ILLNE SS 04/10/2019 Care Plan: Referral Order SNOMED-CT : 30 2232594 Pending 04/10/2019 Visit Diagnosis Plan: Thrombocytosis Discussion: [...] : G47.00 02/14/2019 Appointment: Alexandra Carroll WPtel: [address] [place], [place] [phone] [place] FOLLOW UP 02/14/2019 Appointment: Alexandra Carroll WPtel: [address] [place], [place] [phone] [place] CANCELED 02/12/2019 Visit Diagnosis Plan: Small bowel obstruction Discussi on: S/P surgery in September with postop complications of wound dehiscence ICD-9 : 560.9 ICD-10 : K56.609 01/16/2019 Visit Diagnosis Plan: Onychomycosis Discussion: Send n ail for culture ICD-9 : 110.1 ICD-10 : B35.1 01/16/2019 Appointment: Alexandra Carroll WPtel: [address] [place], [place] [phone] [place] MEDICATION REVIEW 01/16/2019 Appointment: Alexandra Carroll WPtel: [address] [place], [place] [phone] [place] CANCELED 12/12/2018 Visit Diagnosis Plan: Radiculopathy, lumbosacral regio n Discussion: Had left SI joint injection by Dr. Baig about 2 weeks ago and has fwup with him ICD-9 : 724.4 ICD-10 : M54.17 09/18/2018 Visit Diagnosis Plan: Diarrhea, unspecified Discussion : Due for updated colonoscopy ICD-9 : 787.91 ICD-10 : R19.7 09/18/2018 Appointment: Alexandra Carroll WPtel: [address] [place], [place] [phone] [place] PATIENT CONSULT 15 09/18/2018 Care Plan: Referral Order SNOMED-CT : 30 [id number] Pending 09/18/2018 Visit Diagnosis Plan: Sacroiliitis, not [...] : G47.33 08/10/2018 Appointment: Alexandra Carroll WPtel: [address] [place], [place] [phone] [place] MEDICATION REVIEW 08/10/2018 Care Plan: Referral Order SNOMED-CT : 30 6698496 Pending 08/10/2018 Appointment: Alexandra Carroll WPtel: [address] [place], [place] [phone] [place] CANCELED 04/17/2018 Visit Diagnosis Plan: Fracture [...] 724.4 ICD-10 : M54.17 03/27/2018 Appointment: Alexandra Carrolltel: [address] [place] [address] [place] FOLLOW UP 03/27/2018 Visit Diagnosis Plan: [...] 722.52 ICD-10 : M51.36 02/23/2018 Appointment: Alexandra Carrolltel: [address] [place], [place] [phone] [place] FOLLOW UP 02/23/2018 Patient Education: gabapentin- [employer] Coupon [phone] [email or web address]/[email or web address] Completed 02/23/2018 Visit Diagnosis Plan: Fracture of unspec ified part of left clavicle, subsequent encounter for fracture with routine healing Discussion: Hold on PT and do home stretches Trial of gabapentin Recheck 4 weeks ICD-9 : V54.11 ICD-10 : S42.002D 01/24/2018 Appointment: Alexandra Carroll WPtel: [address] [place], [place] [phone] US FOLLOW UP 01/24/2018 Visit Diagnosis Plan: Migraine, unspecif ied, not intractable, without status migrainosus Discussion: Toradol and phenergan given ICD-9 : 346.90 ICD-10 : G43.909 01/17/2018 Appointment: Alexandra Carroll WPtel: [address] [place], [place] [phone] ACUTE ILLNESS 01/17/2018 Visit Diagnosis Plan: Hematuria, [...] : R33.9 12/29/2017 Appointment: Alexandra Carroll WPtel: [address] [place], [place] [phone] US ACUTE ILLNESS 12/29/2017 Care Plan: US EXAM PELVIC COMPLETE LOINC : 83908-6 Pending 12/29/2017 Care Plan: ECHO EXAM OF ABDOMEN LOINC : 18996-2 Pending 12/29/2017 Care Plan: Referral Order SNOMED-CT : 30 1420023 Pending 12/29/2017 Visit Diagnosis Plan: Fracture of unspec ified part of left clavicle, subsequent encounter for fracture with routine healing Discussion: Start PT in another 7-14 days Off work for the rest of this week then may return to part-time work on 12/12/17 Fwup in 4 weeks ICD-9 : V54.11 ICD-10 : S42.002D 12/06/2017 Appointment: Alexandra Carroll WPtel: [facility] [place] FOLLOW UP 12/06/2017 Patient Education: Patient [...] ICD-10 : Z88.1 12/01/2017 Appointment: Vandana Crowe [address] [place], [place] [phone] FOLLOW UP 12/01/2017 Patient Education: Patient Medication [...] L03.113 11/30/2017 Appointment: Vandana Crowe [address] [facility] 11/30/2017 Patient Education: Patient Medication Summary [...] : L03.113 11/29/2017 Appointment: Vandana Crowe [address] [facility] FOLLOW UP 11/29/2017 Patient Education: Patient Medication [...] : L03.113 11/28/2017 Appointment: Vandana Crowe [address] [facility] ACUTE ILLNESS 11/28/2017 Patient Education: Patient Medication [...] Appointment: Alexandra Carroll WPtel: [id number] [place] MEDICATION REVIEW 11/17/2017 Patient Education: Patient Medication Summary Completed 11/17/2017 Care Plan: Referral Order SNOMED-CT : 30 [id number] Pending 11/17/2017 Patient Education: Patient Medication Summary Completed 10/12/2017 Care Plan: MRI LUMBAR SPINE W/O DYE LOIN C : 90152-0 Pending 10/12/2017 Care Plan: X-RAY EXAM L-S SPINE 2/3 VWS LOINC : 50236-1 Pending 10/11/2017 Visit Diagnosis Plan: Other retention [...] medrol pack to start tomorrow. will call [facility] for patient to start PT immediately with inversion table. instructed patient to go to ED immediately if she develops any incontinence with bowel or bladder. patient verbalized understanding. if no improvement, will need updated MRI and referral to surgeon. ICD-9 : 724.4 ICD-10 : M54.17 10/10/2017 Appointment: Vandana Crowe [address] [place], [place] [id number] ACUTE ILLNESS 10/10/2017 Patient Education: Patient Medication Summary Completed 10/10/2017 Appointment: Vandana Crowe [address] [place], [place] [id number] ACUTE ILLNESS 08/01/2017 Visit Diagnosis Plan: Other intervertebral disc degene ration, lumbar region Discussion: Core strengtheing and inversion table and if worsening will need updated MRI ICD-9 : 722.52 ICD-10 : M51.36 06/22/2017 Visit Diagnosis Plan: Encounter for [facility] adult medical examination without abnormal findings Discussion: Lab dis ussed Follow Up: 6 months ICD-9 : V70.0 ICD-10 : Z00.00 06/22/2017 Appointment: Alexandra Carroll WPtel: [phone] Annual Well Visit 06/22/2017 Patient Education: Patient Medication Summary Completed 06/22/2017 Patient Education: Patient Medication Summary Completed 06/16/2017 Care Plan: COMPREHEN METABOLIC PAN[place] : 17062-2 Pending 06/16/2017 Care Plan: ASSAY THYROID STIM HORMONE Pen ding 06/16/2017 Care Plan: ASSAY OF FREE THYROXINE Pendin g 06/16/2017 Care Plan: LIPID PANEL LOINC : 29113-3 Pending 06/16/2017 Care Plan: CBC Pending 06/16/2017 [...] Fluids... 03/28/2017 Appointment: Alexandra Carroll WPtel: [phone] [phone] ACUTE ILLNESS 03/28/2017 Patient Education: Patient Medication Summary Completed 03/28/2017 Visit Diagnosis Plan: Acute sinusitis, unspecified Dis cussion: cefdinir and medrol dose pack prescribed to be taken as directed. tylenol/ibuprofen as needed. educated on importance of taking singulair or zyrtec daily to prevent worsening symptoms. keep hydrated. ICD-9 : 461.9 ICD-10 : J01.90 02/16/2017 Appointment: Vandana Crowe [address] [place] [address] ACUTE ILLNESS 02/16/2017 Patient Education: Patient Medication Summary Completed 02/16/2017 Appointment: Alexandra Carroll WPtel: [address] [place] [address] INJECTION 11/02/2016 Patient Education: Patient Medication Summary Completed 11/02/2016 Visit Diagnosis Plan: Pain in thoracic spine Discussio n: Increase flexeril to 10mg po BID Add Mobic 15mg po daily Towel stretch May see chiropractor to adjust ribs Notify if persists or worsening ICD-9 : 724.1 ICD-10 : M54.6 09/06/2016 Appointment: Alexandra Carroll WPtel: [address] [place] [address] ACUTE ILLNESS 09/06/2016 Patient Education: Patient Medication Summary Completed 09/06/2016 Visit Plan: Due to hx, ERx Cefdinir and Prednisone (discussed risks for both) Given bottle for nasal saline rinses Tylenol/Ibuprofen prn pain/fever Fluids/rest Discussed s/s of worsening, RTC if no improvement 08/16/2016 Appointment: Vidya Manuel WPtel: [address] [place] [address] ACUTE ILLNESS 08/16/2016 Patient Education: Patient Medication [...] : F51.01 07/19/2016 Appointment: Alexandra Carroll WPtel: [address] [place] [address] 07/15 confirmed`sl FOLLOW UP 07/19/2016 Patient Education: [...] G47.33 07/06/2016 Appointment: Alexandra Carroll WPtel: [phone] [phone] 07/05 confirmed-sp FOLLOW UP 07/06/2016 Patient Education: [...] : J30.1 06/15/2016 Appointment: Alexandra Carroll WPtel: [facility] 06/14 lm ~sl ACUTE ILLNESS 06/15/2016 Patient Education: Patient Medication Summary Completed 06/15/2016 Visit Diagnosis Plan: Migraine, unspecif ied, not intractable, without status migrainosus Discussion: Injection as above Drink ple nty of water No driving x 6 hours Rest No OTC nsaids today Follow up PRN Refill called of claritin-d ICD-9 : 346.90 ICD-10 : G43.909 04/09/2016 Appointment: Nae Mckay [address] [place], [place] [phone] ACUTE ILLNESS 04/09/2016 Patient Education: Patient Medication [...] E78.2 03/17/2016 Appointment: Alexandra Carroll WPtel: [address] [place], [place] [phone] 03/16 nvm~sl 03/17 confirmed`sl FOLLOW UP 0 03/17/2016 Patient Education: Patient Medication Summary Completed 03/17/2016 Appointment: Alexandra Carroll WPtel: [address] [place], [place] [id number] [place] 03/11 lm~sl 03/15lm `sl 03/15 confirmed`sl [...] same robert. If working well, continue the [id number] office visits. Call if not working well, and will restart xanax at for sleep. 11/13/2015 Appointment: Nae Mckay [address] [place], [place] [id number] 11/11 confirmed~sl FOLLOW UP 11/13/2015 Patient Education: Patient Medication Summary Completed 11/13/2015 Appointment: Alexandra Carroll WPtel: [address] [place], [place] [phone] Suture Removal 06/23/2015 Patient Education: Patient Medication Summary Completed 06/23/2015 Visit Plan: Removal of lesion above usin g 3-0 punch biopsy Return in 10 days for suture removal 06/12/2015 Appointment: Alexandra Carroll WPtel: [address] [place], [place] [phone] 06/10 lm ~sl ACUTE ILLNESS 06/12/2015 Patient Education: Patient Medication Summary Completed 06/12/2015 Ref[facility]: [facility] [address] Schedule patient around lunch time and 3 weeks from 04/22/2015 ~ Spoke with Kiesha at Dr. Sandoval Office and 04/24/15 and scheduled the patient ~sl 04/24/15 Patient is informed~ 06/03 Patient canceled the appointment ~ Patient did not show up for scheduled appointment-sp Appoint ment Requested 05/21/2015 Appointment: Alexandra Carroll WPtel: [address] [place], [place] [phone] UA 05/05/2015 Patient Education: Patient Medication Summary Completed 05/05/2015 Visit Plan: Starts PT today Schedule wit h Dr. Garcia for epidural CT abdomen/pelvis results discussed Sees [employer] in April and will get checked then 04/22/2015 Appointment: Alexandra Carroll WPtel: [address] [place], [place] [phone] 04/21 confirmed~lb ACUTE ILLNESS 04/22/2015 Patient Education: Patient Medication Summary Completed 04/22/2015 Referral: Lincoln Hernandez WPtel: [address] [place] [address] Referral Initiated 04/10/2015 Patient Education: Patient Medication Summary Completed 04/09/2015 Visit Plan: Start with lumosacral spine x-ray--will likely need MRI of L/S spine x-ray Needs urology--has had to have bladder stretched in past Tivorbex 03/24/2015 Appointment: Alexandra Carroll WPtel: [address] [place], [place] [phone] 03/21/15 appt confirmed cn ACUTE ILLNESS 03/24 Patient Education: Patient Medication Summary Completed 03/24/2015 Visit Plan: Saline nasal flushes prn. Ty lenol/Motrin prn headache. Notify if persists/symptoms worsening. Cefuroxime to cover both sinuses and UTI Culture urine Check lab 02/27/2015 Appointment: Alexandra Carroll WPtel: [address] [place], [place] [phone] 02/26/15 vm to confirm and need new insu meri on file is inactive cn....02/27/15 appt confirmed cn ACUTE ILLNESS 015 Patient Education: Patient Medication Summary Completed 02/27/2015 Visit Plan: Lab discussed Stop simvastat in Check lipids in 6mos Continue all other meds at current dose Had Pap and Mammo 3 weeks ago 06/13/2014 Appointment: Alexandra Carroll WPtel: [address] [place] [address] Annual Well Visit 06/13/2014 Patient Education: Patient Medication Summary Completed 06/13/2014 Appointment: Shalini Walters WPtel: [address] [place] [address] ACUTE ILLNESS 04/18/2014 Patient Education: Patient Medication Summary Completed 04/18/2014 Visit Plan: Check lab in May then fwup Can try decreasing xanax to 1mg q HS with melatonin 5-10mg q HS 12/05/2013 Appointment: Alexandra Carroll WPtel: [address] [place], [place] [phone] 12/04 FOLLOW UP 12/05/2013 Patient Education: Patient Medication Summary Completed 12/05/2013 Appointment: Alexandra Carroll WPtel: [address] [place], [place] [phone] FOLLOW UP 06/05/2013 Patient Education: Patient Medication Summary Completed 06/05/2013 Appointment: Alexandra Carroll WPtel: [address] [place] [address] FOLLOW UP 05/22/2013 Patient Education: Patient Medication Summary Completed 05/22/2013 Visit Plan: Zovirax for 2wks Notify if p ain worsens or if persists 04/05/2013 Appointment: Alexandra Carroll WPtel: [address] [place] [address] ACUTE ILLNESS 04/05/2013 Patient Education: Patient Medication Summary Completed 04/05/2013 Visit Plan: Keep Wellbutrin at current d ose Pt did see store mgr for counseling 03/26/2013 Appointment: Alexandra Carroll WPtel: [address] [place] [address] ACUTE ILLNESS 03/26/2013 Patient Education: Patient Medication Summary Completed 03/26/2013 Visit Plan: Continue citalopram at curre nt dose Increase xanax to 1-2mg q HS for sleep Add Wellbutrin Sr 100mg q AM Start Counseling 03/06/2013 Appointment: Alexandra Carroll WPtel: [address] [place] [address] ACUTE ILLNESS 03/06/2013 Patient Education: Patient Medication Summary Completed 03/06/2013 Appointment: Alexandra Carroll WPtel: [address] [place] [address] ACUTE ILLNESS 11/29/2012 Patient Education: Patient Medication Summary Completed 11/29/2012 Appointment: Alexandra Carroll WPtel: [address] [place] [address] ACUTE ILLNESS 09/26/2012 Patient Education: Patient Medication Summary Completed 09/26/2012 Appointment: Alexandra Carroll WPtel: [address] [place] [address] ACUTE ILLNESS 07/11/2012 Patient Education: Patient Medication Summary Completed 07/11/2012 Appointment: Alexandra Carroll WPtel: [address] [place], [place] [phone] US LAB 02/17/2012 Patient Education: Patient Medication Summary Completed 02/17/2012 Visit Plan: Check fasting lab Start annie y ca with Vit D Cont CPAP Mammo up-to-date Hemoccult card given 02/02/2012 Appointment: Alexandra Carroll WPtel: [address] [place] [address] PHYSICAL 02/02/2012 Patient Education: Patient Medication Summary Completed 02/02/2012 Appointment: Alexandra Carroll WPtel: [address] [place] [address] UA 08/27/2011 Patient Education: Patient Medication Summary Completed 08/27/2011 Visit Plan: Levaquin and Diflucan for 1w k Then cipro QOD for prophylaxis 08/17/2011 Appointment: Alexandra Carroll WPtel: [address] [place] [address] FOLLOW UP 08/17/2011 Patient Education: Patient Medication Summary Completed 08/17/2011 Appointment: Alexandra Carroll WPtel: [address] [place] [address] UA 12/28/2010 Patient Education: Patient Medication Summary Completed 12/28/2010 Appointment: Alexandra Carroll WPtel: [address] [place] [address] UA 11/09/2010 Patient Education: Patient Medication Summary Completed 11/09/2010 Appointment: Alexandra Carroll WPtel: [address] [place] [address] UA 10/29/2010 Patient Education: Patient Medication Summary Completed 10/29/2010 Appointment: Steph Bowen WPtel: [address] [place] [address] ACUTE ILLNESS 10/14/2010 Patient Education: Patient Medication Summary Completed 10/14/2010 Referral: Florian Baig WPtel: [facility] [address], [facility] [address] [id number] [place] Referral Initiated Referral: Paulo Albert WPtel: [phone] [id number] [place] Referral Appointment Requested Referral: Luis Enrique Jasso WPtel: [facility] [address] Referral Appointment Requested Referral: Florian Baig WPtel: [facility] [address] [place] Referral Appointment Requested Referral: Caleb Glaser WPtel: [address] [id number] [place] Referral Appointment Requested Referral: Florian Baig WPtel: [facility] [address], [id number] [place] Referral Initiated Referral: Florian Baig WPtel: [facility] [address] [place] Referral Appointment Requested Instructions Comment [...] same robert. If working well, continue the [id number] office visits. Call if not working well, and will restart xanax at for sleep. . Removal of lesion above using 3-0 punc h biopsy Return in 10 days for suture removal . Starts PT today Schedule with Dr. Garcia for epidural CT abdomen/pelvis results discussed Sees [employer] in April and will get checked [...]
--- OUTSIDE RECORDS SUMMARY | 2019-09-02 00:24 | XMS REPORT | CCD ---
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 Role Phone Alexandra Carroll D.O., PP Unavailable CCM Unavailable Summary Purpose Interface Exchange Insurance Providers Payer name Policy type / Coverage type Covered constitution party ID Effective Begin Date Effective End Date WPS MEDICARE [place] B [place] Part B [id number] 2019 Unknown [employer] [place] Medicare Part B [id number] Unknown Family History Family History data not found Social History Social History Element Codes Description Effective Dates Tobacco history SNOMED CT: 095540510 Nonsmoker 10/14/2010 Allergies, Adverse Reactions, Alerts Substance Reaction Codes Entered Date Inactivated Date Status MORPHINE SULFATE RxNorm: 1746741 10/14/2010 No Inactive Da te Active CEPHALOSPORINS rash Unknown 12/06/2017 No Inactive Date Acti ve SULFA (SULFONAMIDES) Unknown 10/14/2010 No Inactive Cruz e Active Clindamycin HCl Unknown 12/06/2017 No Inactive Date Act unique _ reaction, Unknown 06/13/2014 No Inactive Date Active DEMEROL Unknown 10/14/2010 No Inactive Date Active Problems Condition Codes Effective Dates Condition Status Cellulitis of left arm ICD-9: 682.3 ICD-10: [...] Start Date Stop Date Status Fill Instructions Trazadone 150 mg Tablet RxNorm: 1 Tablet(s) Oral every n ight at bedtime 05/14/2019 No Stop Date Active Levaquin 500 mg tablet RxNorm: 017647 1 Tablet(s) Oral QD 05/14/2019 05/21/2019 Active Xanax 1 mg tablet RxNorm: 845198 1-2 Tablet(s) Oral e very night at bedtime as needed for sleep 05/03/2019 06/01/2019 Active Generic For:LAVELLE AX 1MG 10/11/2016 11:15:13 AM cyclobenzaprine 10 mg tablet RxNorm: 833097 1 Tablet(s) Oral three times a day as needed for muscle spasm 02/12/2019 02/12/2019 Inactive Xanax 1 mg tablet RxNorm: 718070 1-2 Tablet(s) Oral e very night at bedtime as needed for sleep 02/09/2019 03/10/2019 Inactive Generic For:LAVELLE AX 1MG 10/11/2016 11:15:13 AM Xanax 1 mg tablet RxNorm: 449985 1-2 Tablet(s) Oral e very night at bedtime as needed for sleep 01/22/2019 02/08/2019 Inactive Generic For:LAVELLE AX 1MG 10/11/2016 11:15:13 AM Celexa 40 mg tablet RxNorm: 042895 1 Tablet(s) Oral QD 01/17/2019 Active - First Attempt Ref: [id number] Xanax 1 mg tablet RxNorm: 634858 1 Tablet(s) Oral every night a t bedtime 01/08/2019 01/21/2019 Inactive levothyroxine 88 mcg tablet RxNorm: 676969 TAKE 1 TABLET BY NINA TH DAILY 12/19/2018 06/16/2019 Active - First Attempt Ref: [id number] Xanax 1 mg tablet RxNorm: 257741 1 Tablet(s) Oral every night a t bedtime 12/06/2018 01/05/2019 Inactive Singulair 10 mg tablet RxNorm: 571802 1 Tablet(s) Oral every ni ght at bedtime 11/23/2018 11/17/2019 Active - First Attempt Ref: [id number] Celexa 40 mg tablet RxNorm: 172666 1 Tablet(s) Oral 11/23/20182018 Inactive - First Attempt Ref: [id number] cyclobenzaprine 10 mg tablet RxNorm: 230199 1 Tablet(s) Oral three times a day as needed for muscle spasm 11/23/2018 02/11/2019 Inactive Xanax 1 mg tablet RxNorm: 886619 1 Tablet(s) PO QHS 11/06/20182018 Inactive Xanax 1 mg tablet RxNorm: 697917 1 Tablet(s) PO QHS 09/26/20182018 Inactive Singulair 10 mg tablet RxNorm: 941647 TAKE 1 TABLET BY MOUTH EVERY NIGHT AT BEDTIME 08/16/2018 11/22/2018 Inactive - First Attempt Ref: [id number] Xanax 1 mg tablet RxNorm: 809074 1 Tablet(s) PO QHS 08/01/20182018 Inactive levothyroxine 88 mcg tablet RxNorm: 506259 TAKE 1 TABLET BY NINA TH DAILY 07/31/2018 12/18/2018 Inactive - First Attempt Ref: [id number] Celexa 40 mg tablet RxNorm: 586000 TAKE 1 TABLET BY MOUTH DAILY 04/201811/22/2018 Inactive - First Attempt Ref: [id number] 54 bupropion HCl SR 100 mg tablet,12 hr sustained-release RxNor m: 436626 1 Tablet(s) PO BID 07/12/2018 07/06/2019 Active - Ref: [id number] 7 Claritin-D 24 Hour 10 mg-240 mg tablet,extended release RxNo rm: 7244107 1 Tablet(s) PO QD 06/29/2018 2018 Inactive Claritin-D 24 Hour 10 mg-240 mg tablet,extended release RxNo rm: 0085915 1 Tablet(s) PO QD 06/29/2018 2018 Inactive Xanax 1 mg tablet RxNorm: 904843 1-2 Tablet(s) PO QHS as needed for sleep 05/26/2018 06/23/2018 Inactive Generic For:XANAX 1M G 10/11/2016 11:15:13 AM Xanax 1 mg tablet RxNorm: 640211 1-2 Tablet(s) PO QHS as needed for sleep 03/28/2018 05/25/2018 Inactive Generic For:XANAX 1M G 10/11/2016 11:15:13 AM Macrobid 100 mg capsule RxNorm: 478836 1 Capsule(s) PO BID 03/27/19 19 03/31/2018 Inactive gabapentin 300 mg capsule RxNorm: 067805 1 Capsule(s) PO QHS 201703/26/2018 Inactive Claritin-D 24 Hour 10 mg-240 mg tablet,extended release RxNo rm: 6411779 1 Tablet(s) PO QD 01/26/2018 02/24/2018 Inactive gabapentin 100 mg capsule RxNorm: 411003 1 Capsule(s) P O QHS for 1 week then 2 po q HS for 2 weeks then 3 po q HS 01/24/2018 03/26/2018 Inactive Xanax 1 mg tablet RxNorm: 047294 1-2 Tablet(s) PO QHS as needed for sleep 01/24/2018 03/24/2018 Inactive Generic For:XANAX 1M G 10/11/2016 11:15:13 AM prednisone 20 mg tablet RxNorm: 105807 1 Tablet(s) PO T ID for 3 days then 1 po BID for 3 days then one daily for 3 days 12/29/2017 03/26/2018 Inactiv e prednisone 20 mg tablet RxNorm: 827174 3 Tablet(s) PO T ID for 3 days then 1 po BID for 3 days then one daily for 3 days 12/29/2017 12/29/2017 Inactiv e Macrobid 100 mg capsule RxNorm: 086974 1 Capsule(s) PO BID 12/30/19 18 01/02/2018 Inactive Xanax 1 mg tablet RxNorm: 137691 1-2 Tablet(s) PO QHS as needed for sleep 12/28/2017 01/23/2018 Inactive Generic For:XANAX 1M G 10/11/2016 11:15:13 AM Medrol (Walter) 4 mg tablets in a dose pack RxNorm: 935716 Tablet(s) PO take as directed 12/01/2017 03/26/2018 Inactive Keflex 750 mg capsule RxNorm: 397929 1 Capsule(s) PO BID 12/01/2017 1 Inactive clindamycin HCl 300 mg capsule RxNorm: 410352 2 Capsule(s) PO TID 1 12/08/2017 Inactive Xanax 1 mg tablet RxNorm: 473311 1-2 Tablet(s) PO QHS as needed for sleep 11/28/2017 12/27/2017 Inactive Generic For:XANAX 1M G 10/11/2016 11:15:13 AM mupirocin 2 % topical ointment RxNorm: 115205 1 Application OTIC BI D 11/28/2017 08/09/2018 Inactive Xanax 1 mg tablet RxNorm: 722174 1-2 Tablet(s) PO QHS as needed for sleep 10/27/2017 11/25/2017 Inactive Generic For:XANAX 1M G 10/11/2016 11:15:13 AM Macrobid 100 mg capsule RxNorm: 679927 1 Capsule(s) PO BID 10/11/19 18 10/16/2017 Inactive Medrol (Walter) 4 mg tablets in a dose pack RxNorm: 360536 Tablet(s) PO take as directed 10/10/2017 11/16/2017 Inactive Xanax 1 mg tablet RxNorm: 592119 1-2 Tablet(s) PO QHS as needed for sleep 09/28/2017 10/26/2017 Inactive Generic For:XANAX 1M G 10/11/2016 11:15:13 AM Xanax 1 mg tablet RxNorm: 978325 1-2 Tablet(s) PO QHS as needed for sleep 08/30/2017 09/27/2017 Inactive Generic For:XANAX 1M G 10/11/2016 11:15:13 AM Xanax 1 mg tablet RxNorm: 142981 1-2 Tablet(s) PO QHS as needed for sleep 08/30/2017 08/29/2017 Inactive Generic For:XANAX 1M G 10/11/2016 11:15:13 AM Xanax 1 mg tablet RxNorm: 606119 1-2 Tablet(s) PO QHS as needed for sleep 08/01/2017 08/29/2017 Inactive Generic For:XANAX 1M G 10/11/2016 11:15:13 AM Xanax 1 mg tablet RxNorm: 932590 1-2 Tablet(s) PO QHS as needed for sleep 06/29/2017 2017 Inactive Generic For:XANAX 1M G 10/11/2016 11:15:13 AM Claritin-D 24 Hour 10 mg-240 mg tablet,extended release RxNo rm: 4730219 1 Tablet(s) PO QD 06/29/2017 2017 Inactive levothyroxine 88 mcg tablet RxNorm: 248963 1 Tablet(s) PO QD 201709/10/2017 Inactive Xanax 1 mg tablet RxNorm: 380051 1-2 Tablet(s) PO QHS as needed for sleep 05/26/2017 06/28/2017 Inactive Generic For:XANAX 1M G 10/11/2016 11:15:13 AM Claritin-D 24 Hour 10 mg-240 mg tablet,extended release RxNo rm: 3260971 1 Tablet(s) PO QD 05/26/2017 06/24/2017 Inactive bupropion HCl SR 100 mg tablet,12 hr sustained-release RxNor m: 181113 Tablet(s) Take 1 tablet by mouth two times daily 04/06/2017 12/31/2017 Inactive - Ref: [id number] Xanax 1 mg tablet RxNorm: 530054 1-2 Tablet(s) PO QHS as needed for sleep 03/24/2017 05/22/2017 Inactive Generic For:XANAX 1M G 10/11/2016 11:15:13 AM Medrol (Walter) 4 mg tablets in a dose pack RxNorm: 887656 Tablet(s) P O 02/16/2017 03/27/2017 Inactive Xanax 1 mg tablet RxNorm: 668676 Tablet(s) TAKE ONE T O TWO TABLETS BY MOUTH AT BEDTIME NEEDED 02/16/2017 03/17/2017 Inactive Generic For:XA NAX 1MG 10/11/2016 11:15:13 AM Claritin-D 24 Hour 10 mg-240 mg tablet,extended release RxNo rm: 2016593 1 Tablet(s) PO QD 02/16/2017 04/16/2017 Inactive cefdinir 300 mg capsule RxNorm: 307676 2 Capsule(s) PO QD 02/16/2017 02/25/2017 Inactive Celexa 40 mg tablet RxNorm: 063120 Tablet(s) Take 1 tablet by m outh daily 12/23/2016 09/18/2017 Inactive - Ref: [id number] Xanax 1 mg tablet RxNorm: 038652 Tablet(s) TAKE ONE T O TWO TABLETS BY MOUTH AT BEDTIME NEEDED 12/16/2016 01/14/2017 Inactive Generic For:XA NAX 1MG 10/11/2016 11:15:13 AM Xanax 1 mg tablet RxNorm: 644210 Tablet(s) TAKE ONE T O TWO TABLETS BY MOUTH AT BEDTIME NEEDED 11/18/2016 12/15/2016 Inactive Generic For:XA NAX 1MG 10/11/2016 11:15:13 AM Xanax 1 mg tablet RxNorm: 977998 TAKE ONE TO TWO TABL ETS BY MOUTH AT BEDTIME NEEDED 10/11/2016 11/17/2016 Inactive Generic For:XANA X 1MG 10/11/2016 11:15:13 AM Mobic 15 mg tablet RxNorm: 473929 1 Tablet(s) PO QD 09/06/20162016 Inactive Claritin-D 24 Hour 10 mg-240 mg tablet,extended release RxNo rm: 5087311 1 Tablet(s) PO QD 09/02/2016 11/30/2016 Inactive prednisone 20 mg tablet RxNorm: 791775 1 Tablet(s) PO T ID for 3 days then 1 po BID for 3 days then one daily for 3 days 08/16/2016 03/27/2017 Inactiv e cefdinir 300 mg capsule RxNorm: 191289 2 Capsule(s) PO QD 08/16/2016 09/05/2016 Inactive Xanax 1 mg tablet RxNorm: 911550 TAKE ONE TO TWO TABL ETS BY MOUTH AT BEDTIME NEEDED 08/05/2016 10/11/2016 Inactive Generic For:XANA X 1MG 08/05/2016 2:27:03 PM08/04/2016 4:15:22 PM Singulair 10 mg tablet RxNorm: 433811 1 Tablet(s) PO QHS 07/06/2016 0 09/03/2016 Inactive prednisone 20 mg tablet RxNorm: 481603 1 Tablet(s) PO T ID for 3 days then 1 po BID for 3 days then one daily for 3 days 06/15/2016 07/05/2016 Inactiv e Singulair 10 mg tablet RxNorm: 396957 1 Tablet(s) PO QHS 06/15/2016 0 07/05/2016 Inactive cefdinir 300 mg capsule RxNorm: 803524 2 Capsule(s) PO QD 06/15/2016 07/05/2016 Inactive Xanax 1 mg tablet RxNorm: 536372 1-2 Tablet(s) PO QHS 05/21/201610/2016 Inactive Claritin-D 24 Hour 10 mg-240 mg tablet,extended release RxNo rm: 3411946 1 Tablet(s) PO QD 04/09/2016 07/07/2016 Inactive Xanax 1 mg tablet RxNorm: 762554 1-2 Tablet(s) PO QHS 03/23/201604/29 Inactive levothyroxine 88 mcg tablet RxNorm: 074444 1 Tablet(s) PO QD 201606/13/2017 Inactive bupropion HCl SR 100 mg tablet,sustained-release RxNorm: 993 503 Take 1 tablet by mouth two times daily 03/15/2016 12/09/2016 Inactive - Ref: 20 [id number] Celexa 40 mg tablet RxNorm: 277544 Take 1 tablet by mouth daily 12/23/2016 Inactive - Ref: [id number] Xanax 1 mg tablet RxNorm: 715488 1-2 Tablet(s) PO QHS 02/17/201603/01 Inactive levothyroxine 88 mcg tablet RxNorm: 175959 1 Tablet(s) PO QD 201502/22/2016 Inactive Xanax 1 mg tablet RxNorm: 040646 1-2 Tablet(s) PO QHS 11/25/201511/29 Inactive levothyroxine 88 mcg tablet RxNorm: 530297 1 Tablet(s) PO QD 201511/24/2015 Inactive temazepam 30 mg capsule RxNorm: 692174 1 Capsule(s) PO QHS 11/13/19 16 11/24/2015 Inactive Xanax 1 mg tablet RxNorm: 235075 1-2 Tablet(s) PO QHS 09/15/201510/29 Inactive Celexa 40 mg tablet RxNorm: 553480 1 Tablet(s) PO QD 1 Tablet(s ) PO QD 09/10/2015 09/16/2015 Inactive bupropion HCl SR 100 mg tablet,sustained-release RxNorm: 993 503 1 Tablet(s) PO BID 09/10/2015 09/23/2015 Inactive Xanax 1 mg tablet RxNorm: 028288 1-2 Tablet(s) PO QHS 09/10/201508/28 Inactive Xanax 1 mg tablet RxNorm: 511837 1-2 Tablet(s) PO QHS 08/11/201508/28 Inactive cyclobenzaprine 10 mg tablet RxNorm: 111787 1 Tablet(s) PO TID prn spasm 07/09/2015 11/23/2018 Inactive Celexa 40 mg tablet RxNorm: 417197 1 Tablet(s) PO QD 06/06/201508/03 Inactive Xanax 1 mg tablet RxNorm: 643603 1-2 Tablet(s) PO QHS 06/04/201505/2015 Inactive levothyroxine 88 mcg tablet RxNorm: 621059 1 Tablet(s) PO QD 201511/23/2015 Inactive Ceftin 500 mg tablet RxNorm: 528048 1 Tablet(s) PO BID 05/05/2015 Inactive Ceftin 500 mg tablet RxNorm: 451540 1 Tablet(s) PO BID 05/05/201507/2015 Inactive meloxicam 15 mg tablet RxNorm: 694629 1 Tablet(s) PO QD 04/16/2015 Inactive meloxicam 15 mg tablet RxNorm: 693216 1 Tablet(s) PO QD 04/16/2015 Inactive diclofenac sodium 75 mg tablet,delayed release RxNorm: 82043 6 1 Tablet(s) PO BID 04/04/2015 04/15/2015 Inactive diclofenac sodium 75 mg tablet,delayed release RxNorm: 69814 6 1 Tablet(s) PO BID 04/04/2015 04/03/2015 Inactive Tivorbex 40 mg capsule RxNorm: 5859081 1 Capsule(s) PO TID 03/24/19 16 04/02/2015 Inactive bupropion HCl SR 100 mg tablet,sustained-release RxNorm: 993 503 1 Tablet(s) PO BID 03/11/2015 09/06/2015 Inactive cyclobenzaprine 10 mg tablet RxNorm: 486223 1 Tablet(s) PO TID prn spasm 03/11/2015 07/08/2015 Inactive levothyroxine 88 mcg tablet RxNorm: 268399 1 Tablet(s) PO QD 201405/27/2015 Inactive Claritin-D 24 Hour 10 mg-240 mg tablet,extended release RxNo rm: 8109054 1 Tablet(s) PO QD 02/27/2015 05/27/2015 Inactive cefuroxime axetil 500 mg tablet RxNorm: 003669 1 Tablet(s) PO BID 1 03/12/2015 Inactive Celexa 40 mg tablet RxNorm: 742012 1 Tablet(s) PO QD 02/05/201504/05 Inactive levothyroxine 75 mcg tablet RxNorm: 998884 1 Tablet(s) PO QD 201402/26/2015 Inactive Celexa 40 mg tablet RxNorm: 124739 1 Tablet(s) PO QD 10/09/201402/04 Inactive Activella 1 mg-0.5 mg tablet RxNorm: 5625123 1 Tablet(s) PO QD 08/2802/26/2015 Inactive bupropion HCl SR 100 mg tablet,sustained-release RxNorm: 993 503 1 Tablet(s) PO BID 09/12/2014 03/10/2015 Inactive levothyroxine 75 mcg tablet RxNorm: 960641 1 Tablet(s) PO QD 201412/09/2014 Inactive levothyroxine 75 mcg tablet RxNorm: 267814 1 Tablet(s) PO QD 201409/11/2014 Inactive Celexa 40 mg tablet RxNorm: 657547 1 Tablet(s) PO QD 08/12/201410/08 Inactive Xanax 1 mg tablet RxNorm: 019447 1-2 Tablet(s) PO QHS 08/12/201409/28 Inactive Claritin-D 24 Hour 10 mg-240 mg tablet,extended release RxNo rm: 6519988 1 Tablet(s) PO QD 06/13/2014 09/10/2014 Inactive cyclobenzaprine 10 mg tablet RxNorm: 311119 1 Tablet(s) PO TID prn spasm 06/12/2014 02/26/2015 Inactive Xanax 1 mg tablet RxNorm: 606098 1-2 Tablet(s) PO QHS 05/09/201406/28 Inactive levothyroxine 75 mcg tablet RxNorm: 052894 1 Tablet(s) PO QD 201407/08/2014 Inactive cephalexin 500 mg capsule RxNorm: 319650 1 Capsule(s) PO QOD 201402/26/2015 Inactive simvastatin 10 mg tablet RxNorm: 595585 1 Tablet(s) PO QHS 04/10/19 15 06/12/2014 Inactive Xanax 1 mg tablet RxNorm: 506919 1-2 Tablet(s) PO QHS 04/10/201404/28 Inactive levothyroxine 75 mcg tablet RxNorm: 961646 1 Tablet(s) PO QD 201404/09/2014 Inactive levothyroxine 75 mcg capsule RxNorm: 098126 1 Capsule(s) PO QD 03/3104/10/2014 Inactive Activella 1 mg-0.5 mg tablet RxNorm: 1312459 1 Tablet(s) PO QD 03/0109/11/2014 Inactive bupropion HCl SR 100 mg tablet,sustained-release RxNorm: 993 503 1 Tablet(s) PO BID 03/04/2014 08/30/2014 Inactive Activella 1 mg-0.5 mg tablet RxNorm: 7242863 1 Tablet(s) PO QD 01/2803/18/2014 Inactive levothyroxine 75 mcg capsule RxNorm: 090340 1 Capsule(s) PO QD 12/2904/08/2014 Inactive simvastatin 10 mg tablet RxNorm: 158655 1 Tablet(s) PO QHS 01/10/20 14 04/08/2014 Inactive cyclobenzaprine 10 mg tablet RxNorm: 610288 1 Tablet(s) PO TID prn spasm 01/09/2014 04/08/2014 Inactive Cipro 500 mg tablet RxNorm: 038179 1 Tablet(s) PO BID 12/25/201304/2013 Inactive Cipro 500 mg tablet RxNorm: 238392 1 Tablet(s) PO BID 12/25/201311/29 Inactive bupropion HCl SR 100 mg tablet,sustained-release RxNorm: 993 503 1 Tablet(s) PO QAM 12/11/2013 03/03/2014 Inactive cephalexin 500 mg capsule RxNorm: 905555 1 Capsule(s) PO QOD 201304/09/2014 Inactive Xanax 1 mg tablet RxNorm: 817492 1-2 Tablet(s) PO QHS 10/15/201310/29 Inactive simvastatin 10 mg tablet RxNorm: 543735 1 Tablet(s) PO QHS 10/11/19 14 01/07/2014 Inactive Celexa 40 mg tablet RxNorm: 298160 Tablet(s) PO TAKE 1 TABLET BY MOUTH ONCE DAILY. 09/18/2013 09/17/2013 Inactive Xanax 1 mg tablet RxNorm: 717999 1-2 Tablet(s) PO QHS 08/13/201308/28 Inactive simvastatin 10 mg tablet RxNorm: 983227 1 Tablet(s) PO QHS 07/12/19 14 10/08/2013 Inactive bupropion HCl SR 100 mg tablet,sustained-release RxNorm: 993 503 1 Tablet(s) PO QAM 05/22/2013 11/17/2013 Inactive Pamelor 10 mg capsule RxNorm: 637964 1 Capsule(s) PO QHS for PLATA /sleep 05/22/2013 06/04/2013 Inactive Xanax 1 mg tablet RxNorm: 845344 1-2 Tablet(s) PO QHS 05/15/201305/29 Inactive Pamelor 10 mg capsule RxNorm: 576460 1 Capsule(s) PO QHS for PLATA /sleep 05/15/2013 05/21/2013 Inactive Xanax 1 mg tablet RxNorm: 379941 1 Tablet(s) PO QHS 04/27/20132013 Inactive Zovirax 800 mg tablet RxNorm: 429611 1 Tablet(s) PO TID 04/05/2013 Inactive Xanax 1 mg tablet RxNorm: 716203 1 Tablet(s) PO QHS 04/03/2013 No Sto p Date Active bupropion HCl SR 100 mg tablet,sustained-release RxNorm: 993 503 1 Tablet(s) PO QAM 03/26/2013 05/21/2013 Inactive bupropion HCl SR 100 mg tablet,sustained-release RxNorm: 993 503 1 Tablet(s) PO QAM 03/06/2013 03/25/2013 Inactive Pamelor 10 mg capsule RxNorm: 335233 1 Capsule(s) PO QHS for PLATA /sleep 02/14/2013 05/14/2013 Inactive levothyroxine 75 mcg capsule RxNorm: 435791 1 Capsule(s) PO QD 12/2901/08/2014 Inactive simvastatin 10 mg tablet RxNorm: 691114 1 Tablet(s) PO QHS TAKE 1 TABLET BY MOUTH ONCE DAILY AT BEDTIME. 01/15/2013 07/10/2013 Inactive cyclobenzaprine 10 mg tablet RxNorm: 008805 1 Tablet(s) PO TID prn spasm 12/25/2012 06/22/2013 Inactive Pamelor 10 mg capsule RxNorm: 413668 1 Capsule(s) PO QHS for PLATA /sleep 11/29/2012 02/14/2013 Inactive Celexa 40 mg tablet RxNorm: 224073 Tablet(s) PO TAKE 1 TABLET BY MOUTH ONCE DAILY. 10/11/2012 09/17/2013 Inactive simvastatin 10 mg tablet RxNorm: 688154 Tablet(s) PO TA KE 1 TABLET BY MOUTH ONCE DAILY AT BEDTIME. 10/11/2012 01/14/2013 Inactive simvastatin 10 mg tablet RxNorm: 475702 1 Tablet(s) PO QD 07/11/2012 10/08/2012 Inactive simvastatin 10 mg tablet RxNorm: 358520 1 Tablet(s) PO QD 04/14/2012 07/11/2012 Inactive simvastatin 10 mg tablet RxNorm: 969330 1 Tablet(s) PO QD 04/14/2012 04/13/2012 Inactive Celexa 40 mg tablet RxNorm: 424401 1 Tablet(s) PO QD 03/15/201209/10 Inactive cyclobenzaprine 10 mg tablet RxNorm: 919701 1 Tablet(s) PO TID prn spasm 02/02/2012 02/01/2012 Inactive cyclobenzaprine 10 mg tablet RxNorm: 917017 1 Tablet(s) PO TID prn spasm 02/02/2012 07/30/2012 Inactive Diflucan 100 mg Tab RxNorm: 575311 1 Tablet(s) PO QD 08/17/201108/22 Inactive Cipro 250 mg Tab RxNorm: 170945 1 Tablet(s) PO QD 08/17/2011 10/15/19 12 Inactive Levaquin 500 mg Tab RxNorm: 838251 1 Tablet(s) PO QD 08/17/201108/22 Inactive Pyridium 200 mg Tab RxNorm: 4675994 1 Tablet(s) PO TID 10/14/2010 Inactive may turn urine orange-red color. Cipro 500 mg Tab RxNorm: 591337 1 Tablet(s) PO BID 10/14/2010 011 Inactive levothyroxine 75 mcg capsule RxNorm: 190621 1 Capsule(s) PO QD 12/3001/14/2011 Inactive Vitamin D3 5,000 unit tablet RxNorm: 295512 1 Tablet(s) PO QD No Star t Date Active Nasacort 55 mcg nasal spray aerosol RxNorm: 6623778 2 Sp ray NASAL each nostril QHS No Start Date Active cyclobenzaprine 10 mg tablet RxNorm: 616643 1 Tablet(s) PO TID as needed No Start Date 11/22/2018 Inactive Vitamin D2 1,000 unit capsule RxNorm: 298395 3 Capsule(s) PO QD No Start Date 11/16/2017 Inactive diclofenac sodium 75 mg tablet,delayed release RxNorm: 21823 6 1 Tablet(s) PO BID No Start Date 03/16/2016 Inactive cephalexin 500 mg capsule RxNorm: 611216 1 Capsule(s) PO QOD No Sta rt Date 12/04/2013 Inactive cyclobenzaprine 10 mg tablet RxNorm: 203311 1 Tablet(s) PO QHS No S tart Date 02/01/2012 Inactive loratadine 10 mg tablet RxNorm: 964168 1 Tablet(s) PO QHS No Start Date 05/14/2019 Inactive hydrocodone 5 mg-acetaminophen 500 mg tablet RxNorm: 114130 1 -2 Tablet(s) PO Q6H as needed No Start Date 08/09/2018 Inactive etodolac 400 mg tablet RxNorm: 953259 1 Tablet(s) PO TID No Start D ate 09/17/2018 Inactive Xanax 1 mg tablet RxNorm: 175106 1 Tablet(s) PO QHS No Start Date 04/2013 Inactive Vitamin D3 1,000 unit capsule RxNorm: 207467 1 Capsule(s) PO QD No Start Date 06/12/2014 Inactive estradiol 2 mg tablet RxNorm: 980126 1/2 Tablet(s) PO QD No Start D ate 03/05/2013 Inactive Celexa 40 mg tablet RxNorm: 409296 1 Tablet(s) PO QD No Start Date Inactive Activella 1 mg-0.5 mg tablet RxNorm: 9178548 1 Tablet(s) PO QD No S tart Date 07/10/2012 Inactive medroxyprogesterone 5 mg tablet RxNorm: 1555140 1/2 Tablet(s) PO QD No Start Date 03/05/2013 Inactive levothyroxine 88 mcg tablet RxNorm: 837009 1 Tablet(s) PO QD No Sta rt Date 02/26/2015 Inactive Keflex 500 mg capsule RxNorm: 519563 1 Capsule(s) PO PRN No Start D ate 08/16/2011 Inactive Activella 1 mg-0.5 mg tablet RxNorm: 0751349 1 Tablet(s) PO QHS No Start Date 03/27/2017 Inactive Activella 1 mg-0.5 mg tablet RxNorm: 8068124 1 Tablet(s) PO QD No S tart Date 02/06/2014 Inactive Flexeril 10 mg Tab RxNorm: 553283 1 Tablet(s) PO TID No Start Date Inactive prn spasm simvastatin 10 mg tablet RxNorm: 730374 1 Tablet(s) PO QD No Start Date 04/13/2012 Inactive Medication Administered No Medication Administered data Immunizations Vaccine Codes Date Status Influenza CVX: 135 01/16/2019 Complete Pneumococcal CVX: 133 01/16/2019 Complete Results No Results data Procedures Procedure Codes Date DEXAMETHASONE SODIUM PHOS CPT-4: J1100 05/14/2019 THER/PROPH/DIAG INJ SC/IM CPT-4: 39746 05/14/2019 TRIAMCINOLONE ACET INJ NOS CPT-4: J3301 05/14/2019 FLU VACC PRSV FREE INC ANTIG 65 AND OLDER CPT-4: 01658 01/16/2019 FLU VACC PRSV FREE INC ANTIG 65 AND OLDER CPT-4: 47095 01/16/2019 PNEUMOCOCCAL VACC 13 NARESH IM CPT-4: 19365 01/16/2019 SKIN FUNGI CULTURE CPT-4: 55463 01/16/2019 IMMUNIZATION ADMIN CPT-4: 40189 01/16/2019 IMMUNIZATION ADMIN EACH ADD CPT-4: 50871 01/16/2019 THER/PROPH/DIAG INJ SC/IM CPT-4: 46518 01/17/2018 KETOROLAC TROMETHAMINE INJ CPT-4: J1885 01/17/2018 THER/PROPH/DIAG INJ SC/IM CPT-4: 83179 01/17/2018 PROMETHAZINE HCL INJECTION CPT-4: J2550 01/17/2018 URINALYSIS NONAUTO W/O SCOPE CPT-4: 47805 12/29/2017 URINE CULTURE/ COLONY COUNT CPT-4: 63106 12/29/2017 THER/PROPH/DIAG INJ SC/IM CPT-4: 90820 11/30/2017 TRIAMCINOLONE ACET INJ NOS CPT-4: J3301 11/30/2017 DEXAMETHASONE SODIUM PHOS CPT-4: J1100 11/30/2017 CEFTRIAXONE SODIUM INJECTION CPT-4: J0696 11/29/2017 THER/PROPH/DIAG INJ SC/IM CPT-4: 67620 11/29/2017 CEFTRIAXONE SODIUM INJECTION CPT-4: J0696 11/28/2017 THER/PROPH/DIAG INJ SC/IM CPT-4: 80757 11/28/2017 URINALYSIS NONAUTO W/O SCOPE CPT-4: 34224 10/10/2017 THER/PROPH/DIAG INJ SC/IM CPT-4: 96794 10/10/2017 TRIAMCINOLONE ACET INJ NOS CPT-4: J3301 10/10/2017 DEXAMETHASONE SODIUM PHOS CPT-4: J1100 10/10/2017 CEFTRIAXONE SODIUM INJECTION CPT-4: J0696 10/10/2017 THER/PROPH/DIAG INJ SC/IM CPT-4: 27632 10/10/2017 URINE CULTURE/ COLONY COUNT CPT-4: 16061 10/10/2017 THER/PROPH/DIAG INJ SC/IM CPT-4: 72703 11/02/2016 KETOROLAC TROMETHAMINE INJ CPT-4: J1885 11/02/2016 THER/PROPH/DIAG INJ SC/IM CPT-4: 66677 06/15/2016 TRIAMCINOLONE ACET INJ NOS CPT-4: J3301 06/15/2016 DEXAMETHASONE SODIUM PHOS CPT-4: J1100 06/15/2016 THER/PROPH/DIAG INJ SC/IM CPT-4: 84403 04/09/2016 KETOROLAC TROMETHAMINE INJ CPT-4: J1885 04/09/2016 PROMETHAZINE HCL INJECTION CPT-4: J2550 04/09/2016 EXC TR-EXT B9+ERASMO 0.5 CM< CPT-4: 10682 06/12/2015 URINALYSIS NONAUTO W/O SCOPE CPT-4: 62128 05/05/2015 URINE CULTURE/ COLONY COUNT CPT-4: 69939 05/05/2015 URINALYSIS NONAUTO W/O SCOPE CPT-4: 05270 03/24/2015 URINALYSIS NONAUTO W/O SCOPE CPT-4: 49938 02/27/2015 URINE CULTURE/ COLONY COUNT CPT-4: 75958 02/27/2015 THER/PROPH/DIAG INJ SC/IM CPT-4: 70452 04/18/2014 KETOROLAC TROMETHAMINE INJ CPT-4: J1885 04/18/2014 THER/PROPH/DIAG INJ SC/IM CPT-4: 45561 06/05/2013 TRIAMCINOLONE ACET INJ NOS CPT-4: J3301 06/05/2013 THER/PROPH/DIAG INJ SC/IM CPT-4: 05853 11/29/2012 KETOROLAC TROMETHAMINE INJ CPT-4: J1885 11/29/2012 URINALYSIS NONAUTO W/O SCOPE CPT-4: 38758 07/11/2012 URINE CULTURE/ COLONY COUNT CPT-4: 52561 07/11/2012 OCCULT BLOOD FECES CPT-4: 71056 02/17/2012 URINALYSIS NONAUTO W/O SCOPE CPT-4: 24958 08/27/2011 URINE CULTURE/ COLONY COUNT CPT-4: 62256 08/27/2011 URINALYSIS NONAUTO W/O SCOPE CPT-4: 87034 08/17/2011 URINE CULTURE/ COLONY COUNT CPT-4: 11256 08/17/2011 URINALYSIS NONAUTO W/O SCOPE CPT-4: 09584 12/28/2010 URINE CULTURE/ COLONY COUNT CPT-4: 06325 12/28/2010 URINALYSIS NONAUTO W/O SCOPE CPT-4: 13090 11/09/2010 URINE CULTURE/ COLONY COUNT CPT-4: 89155 11/09/2010 URINALYSIS NONAUTO W/O SCOPE CPT-4: 51108 10/29/2010 URINE CULTURE/ COLONY COUNT CPT-4: 27071 10/29/2010 URINE CULTURE/ COLONY COUNT CPT-4: 65144 10/14/2010 URINALYSIS NONAUTO W/O SCOPE CPT-4: 23303 10/14/2010 Vital Signs Date Vital 05/14/2019 Blood Pressure 1: 127/62 Code: 8480-6 [...] 1: 122/74 Code: 8480-6 BMI: 22.0 Code: 93951-2 Heart Rate 1: 72 bpm Height: 5'3" [...] 1: 126/72 Code: 8480-6 BMI: 22.7 Code: 52196-4 Heart Rate 1: 72 bpm Height: 5'3" [...] 1: 112/70 Code: 8480-6 BMI: 22.0 Code: 56362-5 Heart Rate 1: 80 bpm Height: 5'3" [...] 1: 122/64 Code: 8480-6 BMI: 21.4 Code: 32774-7 Heart Rate 1: 88 bpm Height: 5'3" Respiratory Rate: 22 bpm SpO2: 96% Tempera ture: 36.8 (C) / 98.2 (F) Weight: 121 lbs 06/22/2017 Blood Pressure 1: 124/78 Code: 8480-6 BMI: 21.6 Code: 11975-5 Heart Rate 1: 76 bpm Height: 5'3" Respiratory Rate: 20 bpm Temperature: 36 .8 (C) / 98.3 (F) Weight: 122 lbs 03/28/2017 Blood Pressure 1: 92/60 Code: 8480-6 BMI: 20.4 C ode: 71505-0 Heart Rate 1: 72 bpm Height: 5'3" Respiratory Rate: 20 bpm Temperature: 36 .9 (C) / 98.4 (F) Weight: 115 lbs 02/16/2017 Blood Pressure 1: 106/70 Code: 8480-6 BMI: 21.3 Code: 78768-5 Heart Rate 1: 82 bpm Height: 5'3" Respiratory Rate: 22 bpm SpO2: 97% Tempera ture: 36.1 (C) / 97.0 (F) Weight: 120 lbs 09/06/2016 Blood Pressure 1: 118/64 Code: 8480-6 BMI: 22.7 Code: 38539-7 Heart Rate 1: 78 bpm Height: 5'3" Respiratory Rate: 20 bpm SpO2: 98% Tempera ture: 36.2 (C) / 97.2 (F) Weight: 128 lbs 08/16/2016 Blood Pressure 1: 118/78 Code: 8480-6 BMI: 22.1 Code: 33961-7 Heart Rate 1: 78 bpm Height: 5'3" Respiratory Rate: 20 bpm SpO2: 97% Tempera ture: 36.2 (C) / 97.1 (F) Weight: 125 lbs 07/19/2016 Blood Pressure 1: 116/68 Code: 8480-6 BMI: 22.5 Code: 16523-5 Heart Rate 1: 76 bpm Height: 5'3" Respiratory Rate: 20 bpm Temperature: 36 .8 (C) / 98.2 (F) Weight: 127 lbs 07/06/2016 Blood Pressure 1: 106/70 Code: 8480-6 BMI: 22.5 Code: 75625-7 Heart Rate 1: 72 bpm Height: 5'3" Respiratory Rate: 20 bpm SpO2: 97% Tempera ture: 36.8 (C) / 98.2 (F) Weight: 127 lbs 06/15/2016 Blood Pressure 1: 136/76 Code: 8480-6 BMI: 22.9 Code: 98353-2 Heart Rate 1: 74 bpm Height: 5'3" Respiratory Rate: 18 bpm SpO2: 98% Tempera ture: 36.4 (C) / 97.6 (F) Weight: 129 lbs 04/09/2016 Blood Pressure 1: 124/78 Code: 8480-6 BMI: 23.0 Code: 90376-9 Heart Rate 1: 86 bpm Height: 5'3" Respiratory Rate: 20 bpm SpO2: 96% Tempera ture: 36.5 (C) / 97.7 (F) Weight: 130 lbs 03/17/2016 Blood Pressure 1: 116/74 Code: 8480-6 BMI: 23.4 Code: 97486-8 Heart Rate 1: 84 bpm Height: 5'3" Respiratory Rate: 20 bpm SpO2: 97% Tempera ture: 36.8 (C) / 98.3 (F) Weight: 132 lbs 11/13/2015 Blood Pressure 1: 124/78 Code: 8480-6 BMI: 23.4 Code: 16851-5 Heart Rate 1: 88 bpm Height: 5'3" Respiratory Rate: 24 bpm SpO2: 98% Tempera ture: 36.8 (C) / 98.2 (F) Weight: 132 lbs 06/12/2015 Blood Pressure 1: 126/78 Code: 8480-6 BMI: 23.6 Code: 67128-7 Heart Rate 1: 80 bpm Height: 5'3" Respiratory Rate: 20 bpm Temperature: 36 .9 (C) / 98.4 (F) Weight: 133 lbs 04/22/2015 Blood Pressure 1: 126/68 Code: 8480-6 BMI: 23.6 Code: 30518-2 Heart Rate 1: 80 bpm Height: 5'3" Respiratory Rate: 20 bpm Temperature: 36 .6 (C) / 97.9 (F) Weight: 133 lbs 03/24/2015 Blood Pressure 1: 116/66 Code: 8480-6 BMI: 22.9 Code: 82875-9 Heart Rate 1: 74 bpm Height: 5'3" Respiratory Rate: 20 bpm Temperature: 36 .4 (C) / 97.6 (F) Weight: 129 lbs 02/27/2015 Blood Pressure 1: 106/64 Code: 8480-6 BMI: 22.7 Code: 87118-5 Heart Rate 1: 74 bpm Height: 5'3" Respiratory Rate: 20 bpm Temperature: 36 .8 (C) / 98.2 (F) Weight: 128 lbs 06/13/2014 Blood Pressure 1: 104/66 Code: 8480-6 BMI: 22.7 Code: 74235-2 Heart Rate 1: 84 bpm Height: 5'3" Respiratory Rate: 20 bpm Temperature: 37 .0 (C) / 98.6 (F) Weight: 128 lbs 04/18/2014 Blood Pressure 1: 112/62 Code: 8480-6 BMI: 22.0 Code: 29691-7 Heart Rate 1: 82 bpm Height: 5'3" Respiratory Rate: 18 bpm Temperature: 36 .4 (C) / 97.6 (F) Weight: 124 lbs 12/05/2013 Blood Pressure 1: 106/70 Code: 8480-6 BMI: 23.7 Code: 03062-7 Heart Rate 1: 84 bpm Height: 5'3" [...] 1: 126/88 Code: 8480-6 BMI: 22.3 Code: 56787-8 Heart Rate 1: 96 bpm Height: 5'4" Respiratory Rate: 20 bpm Temperature: 37 .7 (C) / 99.9 (F) Weight: 130 lbs 11/29/2012 Blood Pressure 1: 122/76 Code: 8480-6 BMI: 23.0 Code: 73439-4 Heart Rate 1: 84 bpm Height: 5'4" Respiratory Rate: 20 bpm Temperature: 36 .9 (C) / 98.4 (F) Weight: 134 lbs 09/26/2012 Blood Pressure 1: 114/76 Code: 8480-6 BMI: 23.0 Code: 05553-9 Heart Rate 1: 84 bpm Height: 5'4" Respiratory Rate: 20 bpm Temperature: 37 .3 (C) / 99.1 (F) Weight: 134 lbs 07/11/2012 Blood Pressure 1: 126/78 Code: 8480-6 BMI: 23.7 Code: 48107-9 Heart Rate 1: 76 bpm Height: 5'4" Respiratory Rate: 20 bpm Temperature: 37 .1 (C) / 98.7 (F) Weight: 138 lbs 02/02/2012 Blood Pressure 1: 108/70 Code: 8480-6 BMI: 23.2 Code: 98644-5 Heart Rate 1: 88 bpm Height: 5'4" Respiratory Rate: 20 bpm Temperature: 36 .4 (C) / 97.6 (F) Weight: 135 lbs 08/17/2011 Blood Pressure 1: 108/70 Code: 8480-6 BMI: 23.2 Code: 04112-6 Heart Rate 1: 72 bpm Height: 5'4" Respiratory Rate: 20 bpm Temperature: 36 .8 (C) / 98.2 (F) Weight: 135 lbs 10/14/2010 Blood Pressure 1: 120/72 Code: 8480-6 BMI: 23.4 Code: 66948-3 Heart Rate 1: 78 bpm Height: 5'3" Temperature: 36.9 (C) / 98.5 (F) Weight: 132 lbs Functional Status No Functional Status data Reason For Visit Reason For Visit Effective Dates Notes rash 05/14/2019 hernia 04/10/2019 Medication Monitoring 02/14/2019 [...] dysuria. Encounters Encounter Performer Location Codes Date ([id number]) OFFICE/OUTPATIENT VISIT EST Diagnosis: Contact dermatitis due to plant[ICD10: L25.5] Diagnosis: Cellulitis of left arm[ICD10: L03.114] Vnadana Crowe PHILOMENA ALLEN [employer] CPT-4: 94012 05/14/2019 ([id number]) OFFICE/OUTPATIENT VISIT EST Diagnosis: Ventral hernia[ICD10: K43.9] Diagnosis: Incisional hernia[ICD10: K43.2] Alexandra FORDE [employer] CPT-4: 87863 04/10/2019 ([id number]) OFFICE/OUTPATIENT VISIT EST Diagnosis: Insomnia[ICD10: G47.00] Diagnosis: Thrombocytosis[ICD10: D47.3] Alexandra FORDE [employer] CPT-4: 47846 02/14/2019 ([id number]) OFFICE/OUTPATIENT VISIT EST Diagnosis: Small bowel obstruction[ICD10: K56.609] Diagnosis: FLU VACCINE[ICD10: Z23] Diagnosis: PNEUMOCOCCAL VACCINE[ICD10: Z23] Diagnosis: Onychomycosis[ICD10: B35.1] Alexandra FORDE S. [employer] CPT-4: 09826 01/16/2019 ([id number]) OFFICE/OUTPATIENT VISIT EST Diagnosis: Diarrhea, unspecified[ICD10: R19.7] Diagnosis: Radiculopathy, lumbosacral region[ICD10: M54.17] Alexandra CARROLL [employer] CPT-4: 19592 09/18/2018 OFFICE/OUTPATIENT VISIT EST Diagnosis: Other intervertebral disc degeneration, lumbar region[ICD10: M51.36] Diagnosis: Sacroiliitis, not elsewhere classified[ICD10: M46.1] Diagnosis: Obstructive sleep apnea (adult) (pediatric)[ICD10: G47.33] Alexandra CARROLL [employer] CPT-4: 71092 08/10/2018 ([id number]) OFFICE/OUTPATIENT VISIT EST Diagnosis: Fracture of unspecified part of left clavicle, subsequent encounter for fracture with routine healing[ICD10: S42.002D] Diagnosis: Cervicalgia[ICD10: M54.2] Diagnosis: Radiculopathy, lumbosacral region[ICD10: M54.17] Alexandra CARROLL [employer] CPT-4: 35759 03/27/2018 ([id number]) OFFICE/OUTPATIENT VISIT EST Diagnosis: Fracture of unspecified part of left clavicle, subsequent encounter for fracture with routine healing[ICD10: S42.002D] Diagnosis: Other intervertebral disc degeneration, lumbar region[ICD10: M51.36] Diagnosis: Unspecified fracture of first thoracic vertebra, subsequent encounter for fracture with routine healing[ICD10: S22.019D] Diagnosis: Unspecified fracture of second thoracic vertebra, subsequent encounter for fracture with routine healing[ICD10: S22.029D] Alexandra CARROLL [employer] CPT-4: 39237 02/23/2018 ([id number]) OFFICE/OUTPATIENT VISIT EST Diagnosis: Fracture of unspecified part of left clavicle, subsequent encounter for fracture with routine healing[ICD10: S42.002D] Diagnosis: Unspecified fracture of first thoracic vertebra, subsequent encounter for fracture with routine healing[ICD10: S22.019D] Diagnosis: Unspecified fracture of second thoracic vertebra, subsequent encounter for fracture with routine healing[ICD10: S22.029D] Alexandra CARROLL DO [facility] CPT-4: 08153 01/24/2018 ([id number]) OFFICE/OUTPATIENT VISIT EST Diagnosis: Migraine, unspecified, not intractable, without status migrainosus[ICD10: G43.909] Alexandra CARROLL DO [facility] CPT - 4: 48939 01/17/2018 ([id number]) OFFICE/OUTPATIENT VISIT EST Diagnosis: Hematuria, unspecified[ICD10: R31.9] Diagnosis: Other intervertebral disc degeneration, lumbar region[ICD10: M51.36] Diagnosis: Retention of urine, unspecified[ICD10: R33.9] Alexandra CARROLL DO [facility] CPT-4: 17849 12/29/2017 OFFICE/OUTPATIENT VISIT EST Diagnosis: Fracture of [...] Low back pain[ICD10: M54.5] Alexandra KUNZ DO [facility] CPT-4: 65317 12/06/2017 ([id number]) OFFICE/OUTPATIENT VISIT EST Diagnosis: Cellulitis of right upper limb[ICD10: L03.113] Diagnosis: Allergy status to other antibiotic agents status[ICD10: Z88.1] Vandana CARROLL DO [facility] CPT-4: 63727 12/01/2017 ([id number]) OFFICE/OUTPATIENT VISIT EST Diagnosis: Cellulitis of right upper limb[ICD10: L03.113] Diagnosis: Allergy status to other antibiotic agents status[ICD10: Z88.1] Vandana CARROLL DO [facility] CPT-4: 32551 11/30/2017 ([id number]) OFFICE/OUTPATIENT VISIT EST Diagnosis: Cellulitis of right upper limb[ICD10: L03.113] Vandana CARROLL DO [facility] CPT-4: 66730 11/29/2017 ([id number]) OFFICE/OUTPATIENT VISIT EST Diagnosis: Cellulitis of right upper limb[ICD10: L03.113] Vandana CARROLL DO [facility] CPT-4: 55313 11/28/2017 ([id number]) OFFICE/OUTPATIENT VISIT EST Diagnosis: Other intervertebral disc degeneration, lumbar region[ICD10: M51.36] Diagnosis: Other retention of urine[ICD10: R33.8] Diagnosis: Primary insomnia[ICD10: F51.01] Diagnosis: Other spondylosis, site unspecified[ICD10: M47.899] Alexandra CARROLL DO [facility] CPT-4: 53140 11/17/2017 ([id number]) OFFICE/OUTPATIENT VISIT EST Diagnosis: Radiculopathy, lumbosacral region[ICD10: M54.17] Diagnosis: Other retention of urine[ICD10: R33.8] Diagnosis: Urinary tract infection, site not specified[ICD10: N39.0] Vandana CARROLL DO [facility] CPT-4: 43606 10/10/2017 ([id number]) PREV VISIT EST AGE 40-64 Diagnosis: Encounter for general adult medical examination without abnormal findings[ICD10: Z00.00] Diagnosis: Other intervertebral disc degeneration, lumbar region[ICD10: M51.36] Diagnosis: Hypothyroidism, unspecified[ICD10: E03.9] Diagnosis: Mixed hyperlipidemia[ICD10: E78.2] Alexandra CARROLL DO [facility] CPT-4: 01305 06/22/2017 ([id number]) OFFICE/OUTPATIENT VISIT EST Diagnosis: URI, ACUTE[ICD10: J06.9] Alexandra SHAFFERLINE Ty ROMAN [facility] CPT-4: 33673 03/28/2017 OFFICE/OUTPATIENT VISIT EST Diagnosis: Acute sinusitis, unspecified[ICD10: J01.90] Vandana CARROLL DO [facility] CPT-4: 76786 02/16/2017 ([id number]) OFFICE/OUTPATIENT VISIT EST Diagnosis: Migraine, unspecified, not intractable, without status migrainosus[ICD10: G43.909] Alexandra CARROLL [employer] [facility] CPT - 4: 76629 11/02/2016 ([id number]) OFFICE/OUTPATIENT VISIT EST Diagnosis: Pain in thoracic spine[ICD10: M54.6] Diagnosis: Chondrocostal junction syndrome [Tietze][ICD10: M94.0] Alexandra CARROLL [employer] CPT-4: 56153 09/06/2016 OFFICE/OUTPATIENT VISIT EST Diagnosis: Acute sinusitis, unspecified[ICD10: J01.90] Vidya Manuel ALEXANDRA BURLESON [employer] CPT-4: 06234 08/16/2016 ([id number]) OFFICE/OUTPATIENT VISIT EST Diagnosis: Primary insomnia[ICD10: F51.01] Diagnosis: Cramp and spasm[ICD10: R25.2] Diagnosis: Major depressive disorder, single episode, mild[ICD10: F32.0] Alexandra CARROLL [employer] CPT-4: 60873 07/19/2016 ([id number]) OFFICE/OUTPATIENT VISIT EST Diagnosis: Obstructive sleep apnea (adult) (pediatric)[ICD10: G47.33] Diagnosis: Other fatigue[ICD10: R53.83] Diagnosis: Allergic rhinitis due to pollen[ICD10: J30.1] Diagnosis: Headache[ICD10: R51] Alexandra CARROLL [employer] CPT-4: 10422 07/06/2016 ([id number]) OFFICE/OUTPATIENT VISIT EST Diagnosis: Acute recurrent sinusitis, unspecified[ICD10: J01.91] Diagnosis: Allergic rhinitis due to pollen[ICD10: J30.1] Alexandra BURLESON [employer] CPT-4: 54364 06/15/2016 ([id number]) OFFICE/OUTPATIENT VISIT EST Diagnosis: Migraine, unspecified, not intractable, without status migrainosus[ICD10: G43.909] Diagnosis: Allergic rhinitis, unspecified[ICD10: J30.9] Nae Mckay ALEXANDRA SAri CARROLL [facility] CPT-4: 77583 04/09/2016 ([id number]) OFFICE/OUTPATIENT VISIT EST Diagnosis: Hypothyroidism, unspecified[ICD10: E03.9] Diagnosis: Other fatigue[ICD10: R53.83] Diagnosis: Mixed hyperlipidemia[ICD10: E78.2] Diagnosis: Major depressive disorder, single episode, mild[ICD10: F32.0] Alexadnra CARROLL DO [facility] CPT-4: 75201 03/17/2016 ([id number]) OFFICE/OUTPATIENT VISIT EST Diagnosis: Insomnia, unspecified[ICD10: G47.00] Diagnosis: Encounter for therapeutic drug level monitoring[ICD10: Z51.81] Nae Woody CARROLL DO [facility] CPT-4: 09561 11/13/2015 ([id number]) OFFICE/OUTPATIENT VISIT EST Diagnosis: Hematuria, unspecified[ICD10: R31.9] Alexandra CARROLL [employer] CPT-4: 77300 05/05/2015 ([id number]) OFFICE/OUTPATIENT VISIT EST Diagnosis: Other intervertebral disc degeneration, lumbar region[ICD10: M51.36] Diagnosis: Radiculopathy, lumbosacral region[ICD10: M54.17] Alexandra CARROLL DO [facility] CPT-4: 34491 04/22/2015 ([id number]) OFFICE/OUTPATIENT VISIT EST Diagnosis: Low back pain[ICD10: M54.5] Diagnosis: Recurrent and persistent hematuria with unspecified morphologic changes[ICD10: N02.9] Alexandra CARROLL DO [facility] CPT-4: 54939 03/24/2015 ([id number]) OFFICE/OUTPATIENT VISIT EST Diagnosis: Acute sinusitis, unspecified[ICD10: J01.90] Diagnosis: Headache[ICD10: R51] Diagnosis: Retention of urine, unspecified[ICD10: R33.9] Diagnosis: Hypothyroidism, unspecified[ICD10: E03.9] Alexandra CARROLL DO [facility] CPT-4: 07952 02/27/2015 ([id number]) PREV VISIT EST AGE 40-64 Diagnosis: ROUTINE MEDICAL EXAM[ICD9: V70.0] Diagnosis: HYPOTHYROIDISM[ICD9: 244.9] Diagnosis: HYPERLIPIDEMIA NEC/NOS[ICD9: 272.4] Alexandra Danejames SHAFFERUnique ADALID Ty CARROLL DO [facility] CPT-4: 88451 06/13/2014 ([id number]) OFFICE/OUTPATIENT VISIT EST Diagnosis: CEPHALGIA[ICD9: 784.0] Diagnosis: Nausea[ICD9: 787.02] Shalini SHAFFERLINE Ty CARROLL [employer] [facility] CPT-4: 95209 04/18/2014 ([id number]) OFFICE/OUTPATIENT VISIT EST Diagnosis: INSOMNIA NOS[ICD9: 780.52] Diagnosis: Complicated grieving[ICD9: 309.0] Alexandradanielle Louise Ty CARROLL [employer] CPT-4: 67358 12/05/2013 ([id number]) OFFICE/OUTPATIENT VISIT EST Diagnosis: Muscle twitch[ICD9: 781.0] Diagnosis: ALLERGIC RHINITIS[ICD9: 477.9] Alexandra Danejames ALEXANDRA Macy Ari DEANNE [facility] CPT-4: 97526 06/05/2013 ([id number]) OFFICE/OUTPATIENT VISIT EST Diagnosis: DEPRESSIVE DISORDER NEC[ICD9: 311] Alexandra QUINTERO S. DANENDVIOLETTA [facility] CPT-4: 61427 05/22/2013 OFFICE/OUTPATIENT VISIT EST Diagnosis: Shingles[ICD9: 053.9] Alexandra Danelawandavioletta SHAFFERALEXANDRA Ty CARROLL [facility] CPT-4: 19669 04/05/2013 ([id number]) OFFICE/OUTPATIENT VISIT EST Diagnosis: DEPRESSIVE DISORDER NEC[ICD9: 311] Alexandra QUINTERO S. DANENDER [facility] CPT-4: 33111 03/26/2013 ([id number]) OFFICE/OUTPATIENT VISIT EST Diagnosis: Complicated grieving[ICD9: 309.0] Alexandra Louise MacyAri DEANNE SALGUERO [facility] CPT-4: 25753 03/06/2013 ([id number]) OFFICE/OUTPATIENT VISIT EST Diagnosis: CEPHALGIA, TENSION[ICD9: 307.81] Diagnosis: MIGRAINE NOS/NOT INTRCBL[ICD9: 346.90] Diagnosis: Cervicalgia[ICD9: 723.1] Alexandra PLATT IZABELLA [facility] CPT-4: 44918 11/29/2012 ([id number]) OFFICE/OUTPATIENT VISIT EST Diagnosis: Jaw pain[ICD9: 784.92] Diagnosis: Shoulder pain[ICD9: 719.41] Diagnosis: Family history of premature coronary artery disease[ICD9: V17.3] Alexandra CARROLL [facility] CPT-4: 98674 09/26/2012 ([id number]) OFFICE/OUTPATIENT VISIT EST Diagnosis: ABDOMINAL PAIN[ICD9: 789.00] Diagnosis: Constipation[ICD9: 564.00] Diagnosis: Hematuria[ICD9: 599.70] Alexandra BURLESON ER [facility] CPT-4: 07932 07/11/2012 ([id number]) OFFICE/OUTPATIENT VISIT EST Diagnosis: ANEMIA NOS[ICD9: 285.9] Alexandra [facility] CPT-4: 70167 02/17/2012 ([id number]) PREV VISIT EST AGE 40-64 Diagnosis: ROUTINE MEDICAL EXAM[ICD9: V70.0] Diagnosis: HYPOTHYROIDISM[ICD9: 244.9] Diagnosis: HYPERLIPIDEMIA NEC/NOS[ICD9: 272.4] Diagnosis: Obstructive sleep apnea[ICD9: 327.23] Alexandra CARROLL [facility] CPT-4: 60986 02/02/2012 ([id number]) OFFICE/OUTPATIENT VISIT EST Diagnosis: URINARY TRACT INFECTION[ICD9: 599.0] Alexandra Danelawandavioletta [facility]: 34004 08/27/2011 ([id number]) OFFICE/OUTPATIENT VISIT EST Diagnosis: URINARY TRACT INFECTION[ICD9: 599.0] Diagnosis: ACUTE CYSTITIS[ICD9: 595.0] Alexandra Danelawandavioletta AELXANDRA SAri O RENDER [facility] CPT-4: 90084 08/17/2011 OFFICE/OUTPATIENT VISIT EST Diagnosis: URINARY TRACT INFECTION[ICD9: 599.0] Steph 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 ICD-9 : 692.6 ICD-10 : L25.5 05/14/2019 Patient Education: Levaquin- [employer] Coupon [phone] [email or web address]/[email or web address] Completed 05/14/2019 Visit Diagnosis Plan: Ventral hernia Discussion: See s urgery for repair Discussed signs of incarceration or strangulation then is to report to ER ICD-9 : 553.20 ICD-10 : K43.9 04/10/2019 Appointment: Alex[facility] [phone] [id number] [facility] left second message 04/10/19 at 10:20 ACUTE ILLNE SS 04/10/2019 Care Plan: Referral Order SNOMED-CT : 30 [id number] Pending 04/10/2019 Visit Diagnosis Plan: Insomnia Discussion: [...] : D47.3 02/14/2019 Appointment: Alex[facility] [phone] [facility] [place] FOLLOW UP 02/14/2019 Appointment: Alexandra Carroll WPtel: [address] [place], [place] [id number] [place] CANCELED 02/12/2019 Visit Diagnosis Plan: Onychomycosis Discussion: Send n ail for culture ICD-9 : 110.1 ICD-10 : B35.1 01/16/2019 Visit Diagnosis Plan: Small bowel obstruction Discussi on: S/P surgery in September with postop complications of wound dehiscence ICD-9 : 560.9 ICD-10 : K56.609 01/16/2019 Appointment: Alexandra Carroll WPtel: [address] [place] [address] US MEDICATION REVIEW 01/16/2019 Appointment: Alexandra Carroll WPtel: [address] [place], [place] [phone] US CANCELED 12/12/2018 Visit Diagnosis Plan: Diarrhea, unspecified Discussion : Due for updated colonoscopy ICD-9 : 787.91 ICD-10 : R19.7 09/18/2018 Visit Diagnosis Plan: Radiculopathy, lumbosacral regio n Discussion: Had left SI joint injection by Dr. Baig about 2 weeks ago and has fwup with him ICD-9 : 724.4 ICD-10 : M54.17 09/18/2018 Appointment: Alexandra Carroll WPtel: [address] [place], [place] [phone] US PATIENT CONSULT 15 09/18/2018 Care Plan: Referral Order SNOMED-CT : 30 [id number] Pending 09/18/2018 Visit Diagnosis Plan: Other intervertebral [...] : M46.1 08/10/2018 Appointment: Alexandra Carroll WPtel: [address] [place], [place] [phone] US MEDICATION REVIEW 08/10/2018 Care Plan: Referral Order SNOMED-CT : 30 [id number] Pending 08/10/2018 Appointment: Alexandra Carroll WPtel: [address] [place], [place] [phone] US CANCELED 04/17/2018 Visit Diagnosis Plan: Fracture [...] 03/27/2018 Visit Diagnosis Plan: Cervicalgia Discussion: Daily naomiabelardo Has finished PT and seeing chiropracter ICD-9 : 723.1 ICD-10 : M54.2 03/27/2018 Appointment: Alexandra Carroll WPtel: [address] [place], [place] [phone] US FOLLOW UP 03/27/2018 Visit Diagnosis Plan: [...] : S42.002D 02/23/2018 Appointment: Alexandra Carroll WPtel: [address] [place], [place] [phone] US FOLLOW UP 02/23/2018 Patient Education: gabapentin- [employer] Coupon [phone] [email or web address]/[employer]/resources/getResource/[email or web address] Completed 02/23/2018 Visit Diagnosis Plan: Fracture of unspec ified part of left clavicle, subsequent encounter for fracture with routine healing Discussion: Hold on PT and do home stretches Trial of gabapentin Recheck 4 weeks ICD-9 : V54.11 ICD-10 : S42.002D 01/24/2018 Appointment: Alexandra Carroll WPtel: [address] [place] [address] US FOLLOW UP 01/24/2018 Visit Diagnosis Plan: Migraine, unspecif ied, not intractable, without status migrainosus Discussion: Toradol and phenergan given ICD-9 : 346.90 ICD-10 : G43.909 01/17/2018 Appointment: Alexandra Carroll WPtel: [address] [place] [address] ACUTE ILLNESS 01/17/2018 Visit Diagnosis Plan: Retention [...] 722.52 ICD-10 : M51.36 12/29/2017 Appointment: Alexandra Carrolltel: [address] [place] [address] ACUTE ILLNESS 12/29/2017 Care Plan: US EXAM PELVIC COMPLETE LOINC : 26182-9 Pending 12/29/2017 Care Plan: ECHO EXAM OF ABDOMEN LOINC : 67995-2 Pending 12/29/2017 Care Plan: Referral Order SNOMED-CT : 30 [id number] Pending 12/29/2017 Visit Diagnosis Plan: Fracture of unspec ified part of left clavicle, subsequent encounter for fracture with routine healing Discussion: Start PT in another 7-14 days Off work for the rest of this week then may return to part-time work on 12/12/17 Fwup in 4 weeks ICD-9 : V54.11 ICD-10 : S42.002D 12/06/2017 App[facility]ment: [facility] [phone] [id number] [facility] 12/06/2017 Patient Education: Patient Medication Summary Completed 12/06/2017 Visit Diagnosis Plan: Allergy status to other antibiot ic agents status Discussion: medrol pack prescribed for allergic reaction. instructed to call office with new or worsening symptoms, otherwise, benadryl prn. ICD-9 : 995.27 ICD-10 : Z88.1 12/01/2017 Visit Diagnosis Plan: Cellulitis of right [...] ICD-9 : 682.3 ICD-10 : L03.113 12/01/2017 Appointment: Vandana Crowe [address] [place], [place] [phone] FOLLOW UP 12/01/2017 Patient Education: Patient Medication [...] ICD-10 : Z88.1 11/30/2017 Appointment: Vandana Crowe [address] [place], [place] [phone] 11/30/2017 Patient Education: Patient Medication Summary Completed [...] ICD-10 : L03.113 11/29/2017 Appointment: Vandana Crowe [address] [place] [address] FOLLOW UP 11/29/2017 Patient Education: Patient Medication [...] ICD-10 : L03.113 11/28/2017 Appointment: Vandana Crowe [address] [place], [place] [phone] ACUTE ILLNESS 11/28/2017 Patient Education: Patient Medication Summary Completed 11/28/2017 Visit Diagnosis Plan: Other spondylosis, site unspecif ied Discussion: 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 Patient does clinically seem high risk for but she also has lumbar spinal stenosis Fwup after sees ortho spine surgeon ICD-9 : 721.90 ICD-10 : M47.899 11/17/2017 Visit Diagnosis Plan: Primary insomnia Discussion: Dis cussed changing xanax due to increased dementia risk and mother has alzheimer's ICD-9 : 780.52 ICD-10 : F51.01 11/17/2017 Visit Diagnosis Plan: Other retention of urine Discuss ion: Ongoing Had bladder stretched Did improve after steroid shot ICD-9 : 788.29 ICD-10 : R33.8 11/17/2017 Visit Diagnosis Plan: Other intervertebral disc degene ration, lumbar region Discussion: See Dr. Jasso to evluate MRI/X-rays and do injections as well as assess for ankylosing spondylitis as cause of pain and urinary retention vs spinal stenosis as cause ICD-9 : 722.52 ICD-10 : M51.36 11/17/2017 Appointment: Alexandra Carroll WPtel: [phone] [facility] MEDICATION REVIEW 11/17/2017 Patient Education: Patient Medication Summary Completed 11/17/2017 Care Plan: Referral Order SNOMED-CT : [id number] Pending 11/17/2017 Patient Education: Patient Medication Summary Completed 10/12/2017 Care Plan: MRI LUMBAR SPINE W/O DYE LOIN C : 21290-5 Pending 10/12/2017 Care Plan: X-RAY EXAM L-S SPINE 2/3 VWS LOINC : 96818-2 Pending 10/11/2017 Visit Diagnosis Plan: Other retention [...] pack to start tomorrow. [facility] with inversion table. instructed patient to go to ED immediately if she develops any incontinence with bowel or bladder. patient verbalized understanding. if no improvement, will need updated MRI and referral to surgeon. ICD-9 : 724.4 ICD-10 : M54.17 10/10/2017 Appointment: Vandana Crowe [address] [place], [place] [phone] ACUTE ILLNESS 10/10/2017 Patient Education: Patient Medication Summary Completed 10/10/2017 Appointment: Vandana Crowe [address] [place], [place] [id number] ACUTE ILLNESS 08/01/2017 Visit Diagnosis Plan: Other intervertebral disc degene ration, lumbar region Discussion: Core strengtheing and inversion table and if worsening will need updated MRI ICD-9 : 722.52 ICD-10 : M51.36 06/22/2017 Visit Diagnosis Plan: Encounter for [facility] adult medical examination without abnormal findings Discussion: Lab dis ussed Follow Up: 6 months ICD-9 : V70.0 ICD-10 : Z00.00 06/22/2017 Appointment: Alexandra Carroll WPtel: [phone] [facility] Annual Well Visit 06/22/2017 Patient Education: Patient Medication Summary Completed 06/22/2017 Patient Education: Patient Medication Summary Completed 06/16/2017 Care Plan: COMPREH[place] METAB[place]IC [place] : 84727-9 Pending 06/16/2017 Care Plan: ASSAY THYROID STIM HORMONE Pen ding 06/16/2017 Care Plan: ASSAY OF FREE THYROXINE Pendin g 06/16/2017 Care Plan: LIPID PANEL LOINC : 35691-5 Pending 06/16/2017 Care Plan: CBC Pending 06/16/2017 [...] : J06.9 03/28/2017 Appointment: Alexandra Carroll WPtel: [address] [place] [address] ACUTE ILLNESS 03/28/2017 Patient Education: Patient Medication Summary Completed 03/28/2017 Visit Diagnosis Plan: Acute sinusitis, unspecified Dis cussion: cefdinir and medrol dose pack prescribed to be taken as directed. tylenol/ibuprofen as needed. educated on importance of taking singulair or zyrtec daily to prevent worsening symptoms. keep hydrated. ICD-9 : 461.9 ICD-10 : J01.90 02/16/2017 Appointment: Vandana Crowe [address] [place] [address] ACUTE ILLNESS 02/16/2017 Patient Education: Patient Medication Summary Completed 02/16/2017 Appointment: Alexandra Carroll WPtel: [address] [place] [address] INJECTION 11/02/2016 Patient Education: Patient Medication Summary Completed 11/02/2016 Visit Diagnosis Plan: Pain in thoracic spine Discussio n: Increase flexeril to 10mg po BID Add Mobic 15mg po daily Towel stretch May see chiropractor to adjust ribs Notify if persists or worsening ICD-9 : 724.1 ICD-10 : M54.6 09/06/2016 Appointment: Alexandra Carroll WPtel: [address] [place] [address] ACUTE ILLNESS 09/06/2016 Patient Education: Patient Medication Summary Completed 09/06/2016 Visit Plan: Due to hx, ERx Cefdinir and Prednisone (discussed risks for both) Given bottle for nasal saline rinses Tylenol/Ibuprofen prn pain/fever Fluids/rest Discussed s/s of worsening, RTC if no improvement 08/16/2016 Appointment: Vidya Manuel WPtel: [address] [place] [address] ACUTE ILLNESS 08/16/2016 Patient Education: Patient Medication Summary Completed 08/16/2016 Visit Diagnosis Plan: Cramp and spasm Discussion: Rest art flexeril and see if helps ICD-9 : 729.82 ICD-10 : R25.2 07/19/2016 Visit Diagnosis Plan: Primary insomnia Discussion: [place] andrew bowerskamaljit at current dose--patient has been trying to decrease dose ICD-9 : 780.52 ICD-10 : F51.01 07/19/2016 Visit Diagnosis Plan: Major depressive disorder, singl e episode, mild Discussion: Continue lower dose of buproprion for at least 2more months and if doing okay then can DC buproprion and see how does Follow Up: 4 months ICD-9 : 311 ICD-10 : F32.0 07/19/2016 Appointment: Alexandra Carroll WPtel: [phone] [facility] 07/15 confirmed`sl FOLLOW UP 07/19/2016 Patient Education: [...] : J30.1 07/06/2016 Appointment: Alexandra Carroll WPtel: [facility] 07/05 confirmed-sp FOLLOW UP 07/06/2016 Patient Education: [...] : J01.91 06/15/2016 Appointment: Alexandra Carroll WPtel: [address] [place], [place] [phone] 06/14 lm ~sl ACUTE ILLNESS 06/15/2016 Patient Education: Patient Medication Summary Completed 06/15/2016 Visit Diagnosis Plan: Migraine, unspecif ied, not intractable, without status migrainosus Discussion: Injection as above Drink ple nty of water No driving x 6 hours Rest No OTC nsaids today Follow up PRN Refill called of claritin-d ICD-9 : 346.90 ICD-10 : G43.909 04/09/2016 Appointment: Nae Mckay [address] [place] [address] ACUTE ILLNESS 04/09/2016 Patient Education: Patient Medication [...] : R53.83 03/17/2016 Appointment: Alexandra Carroll WPtel: [address] [place], [place] [phone] 03/16 nvm~sl 03/17 confirmed`sl FOLLOW UP 0 03/17/2016 Patient Education: Patient Medication Summary Completed 03/17/2016 Appointment: Alexandra Carroll WPtel: [address] [place], [place] [phone] 03/11 lm~sl 03/15lm `sl 03/15 confirmed`sl FOLLOW [...] same robert. If working well, continue the b0npavs office visits. Call if not working well, and will restart xanax at for sleep. 11/13/2015 Appointment: Nae Mckay [address] [place], [place] [phone] 11/11 confirmed~ FOLLOW UP 11/13/2015 Patient Education: Patient Medication Summary Completed 11/13/2015 Appointment: Alexandra Carroll WPtel: [address] [place] [address] Suture Removal 06/23/2015 Patient Education: Patient Medication Summary Completed 06/23/2015 Visit Plan: Removal of lesion above usin g 3-0 punch biopsy Return in 10 days for suture removal 06/12/2015 Appointment: Alexandra Carroll WPtel: [address] [place], [place] [phone] 06/10 lm ~ ACUTE ILLNESS 06/12/2015 Patient Education: Patient Medication Summary Completed 06/12/2015 Referral: Soy Garcia WPtel: [address] [place] Schedule patient around lunch time and 3 weeks from 04/22/2015 ~ Spoke with Kiesha at Dr. Sandoval Office and 04/24/15 and scheduled the patient ~ 04/24/15 Patient is informed~ 06/03 Patient canceled the appointment ~ Patient did not show up for scheduled appointment-sp Appoint ment Requested 05/21/2015 Appointment: Alexandra Carroll WPtel: [address] [place], [place] [phone] [place] [address] 05/05/2015 Patient Education: Patient Medication Summary Completed 05/05/2015 Visit Plan: Starts PT today Schedule wit h Dr. Garcia for epidural CT abdomen/pelvis results discussed Sees [employer]ELOPER in April and will get checked then 04/22/2015 Appointment: Alexandra Carroll WPtel: [address] [place], [place] [phone] 04/21 confirmed~lb ACUTE ILLNESS 04/22/2015 Patient Education: Patient Medication Summary Completed 04/22/2015 Referral: Lincoln Hernandez WPtel: [facility] [address] Referral Initiated 04/10/2015 Patient Education: Patient Medication Summary Completed 04/09/2015 Visit Plan: Start with lumosacral spine x-ray--will likely need MRI of L/S spine x-ray Needs urology--has had to have bladder stretched in past Tivorbex 03/24/2015 Appointment: Alexandra Carroll WPtel: [address] [place] [address] 03/21/15 appt confirmed cn ACUTE ILLNESS 03/24 Patient Education: Patient Medication Summary Completed 03/24/2015 Visit Plan: Saline nasal flushes prn. Ty lenol/Motrin prn headache. Notify if persists/symptoms worsening. Cefuroxime to cover both sinuses and UTI Culture urine Check lab 02/27/2015 Appointment: Alexandra Carroll WPtel: [address] [place] [address] 02/26/15 vm to confirm and need new insu meri on file is inactive cn....02/27/15 appt confirmed cn ACUTE ILLNESS 015 Patient Education: Patient Medication Summary Completed 02/27/2015 Visit Plan: Lab discussed Stop simvastat in Check lipids in 6mos Continue all other meds at current dose Had Pap and Mammo 3 weeks ago 06/13/2014 Appointment: Alexandra Carroll WPtel: [address] [place] [address] Annual Well Visit 06/13/2014 Patient Education: Patient Medication Summary Completed 06/13/2014 Appointment: Shalini Walters WPtel: [address] [place], [place] [phone] ACUTE ILLNESS 04/18/2014 Patient Education: Patient Medication Summary Completed 04/18/2014 Visit Plan: Check lab in May fw Can try decreasing xanax to 1mg q HS with melatonin 5-10mg q HS 12/05/2013 Appointment: Alexandra Carroll WPtel: [address] [place] [address] 12/04 FOLLOW UP 12/05/2013 Patient Education: Patient Medication Summary Completed 12/05/2013 Appointment: Alexandra Carroll WPtel: [address] [place] [address] FOLLOW UP 06/05/2013 Patient Education: Patient Medication Summary Completed 06/05/2013 Appointment: Alexandra Carroll WPtel: [address] [place] [address] FOLLOW UP 05/22/2013 Patient Education: Patient Medication Summary Completed 05/22/2013 Visit Plan: Zovirax for 2wks Notify if p ain worsens or if persists 04/05/2013 Appointment: Alexandra Carroll WPtel: [address] [place] [address] ACUTE ILLNESS 04/05/2013 Patient Education: Patient Medication Summary Completed 04/05/2013 Visit Plan: Keep Wellbutrin at current d ose Pt did see for counseling 03/26/2013 Appointment: Alexandra Carroll WPtel: [address] [place] [address] ACUTE ILLNESS 03/26/2013 Patient Education: Patient Medication Summary Completed 03/26/2013 Visit Plan: Continue citalopram at curre nt dose Increase xanax to 1-2mg q HS for sleep Add Wellbutrin Sr 100mg q AM Start Counseling 03/06/2013 Appointment: Alexandra Carroll WPtel: [address] [place] [address] ACUTE ILLNESS 03/06/2013 Patient Education: Patient Medication Summary Completed 03/06/2013 Appointment: Alexandra Carroll WPtel: [address] [place], [place] [phone] [place] ACUTE ILLNESS 11/29/2012 Patient Education: Patient Medication Summary Completed 11/29/2012 Appointment: Alexandra Carrolltel: [address] [place] [address] ACUTE ILLNESS 09/26/2012 Patient Education: Patient Medication Summary Completed 09/26/2012 Appointment: Alexandra Carrolltel: [address] [place] [address] ACUTE ILLNESS 07/11/2012 Patient Education: Patient Medication Summary Completed 07/11/2012 Appointment: Alexandra Carrolltel: [address] [place] [address] LAB 02/17/2012 Patient Education: Patient Medication Summary Completed 02/17/2012 Visit Plan: Check fasting lab Start annie y ca with Vit D Cont CPAP Mammo up-to-date Hemoccult card given 02/02/2012 Appointment: Alexandra Carroll WPtel: [address] [place] [address] PHYSICAL 02/02/2012 Patient Education: Patient Medication Summary Completed 02/02/2012 Appointment: Alexandra Carrolltel: [address] [place] [address] UA 08/27/2011 Patient Education: Patient Medication Summary Completed 08/27/2011 Visit Plan: Levaquin and Diflucan for 1w k Then cipro QOD for prophylaxis 08/17/2011 Appointment: Alexandra Carroll WPtel: [address] [place] [address] FOLLOW UP 08/17/2011 Patient Education: Patient Medication Summary Completed 08/17/2011 Appointment: Alexandra Carrolltel: [address] [place] [address] UA 12/28/2010 Patient Education: Patient Medication Summary Completed 12/28/2010 Appointment: Alex[facility] Carroll [facility]Ptel: [phone] [facility] UA 11/09/2010 Patient Education: Patient Medication Summary Completed 11/09/2010 Appointment: Alexandra Carroll WPtel: [address] [place], [place] [phone] UA 10/29/2010 Patient Education: Patient Medication Summary Completed 10/29/2010 Appointment: Steph Bowen WPtel: [address] [place], [place] [phone] ACUTE ILLNESS 10/14/2010 Patient Education: Patient Medication Summary Completed 10/14/2010 Referral: Florian Baig WPtel: [facility] [address] Referral Initiated Referral: Paulo Albert WPtel: [id number] [place] Referral Appointment Requested Referral: Luis Enrique Jasso WPtel: [facility] [address] [place] Referral Appointment Requested Referral: Florian Baig WPtel: [facility] [address] Referral Appointment Requested Referral: Caleb Glaser WPtel: [phone] [place] Referral Appointment Requested Referral: Florian Baig WPtel: [facility] [address] [place] Referral Initiated Referral: Florian Baig WPtel: [facility] [address] [place] Referral Appointment Requested Instructions Comment [...] same robert. If working well, continue the o1wzqts office visits. Call if not working well, and will restart xanax at HS for sleep. . Removal of lesion above using 3-0 punc h biopsy Return in 10 days for suture removal . Starts PT today Schedule with Dr. Garcia for epidural CT abdomen/pelvis results discussed Sees [employer] DEVELOPER in April and will get checked then [...]
--- NOTE | 2019-09-02 00:25 | ED Cardiac General ---
History of Present Illness General Chief Complaint: Chest Pain Stated Complaint: CP SOB Source: patient (SOMEWHAT DIFFICULT HISTORIAN) History of Present Illness Date Seen by Provider: Sep 02, 2019 Time Seen by Provider: 00:04 Initial Comments PT ARRIVES VIA EMS FROM HOME C/O MID CHEST PAIN AND SHORTNESS OF BREATH SYMPTOMS ONGOING FOR 3 MONTHS, BUT BECAME MUCH WORSE TONIGHT, AND HAS NOT HAD ANYTHING LIKE THIS OR THIS BAD RATES PAIN 8/10 PAIN RADIATES INTO BACK HAS HAD "SWEATS AND CHILLS' TONIGHT, BUT HAS NOT HAD "FEVER" --HAS NOT CHECKED TEMP C/O NAUSEA, NO VOMITING C/O NON-PRODUCTIVE COUGH FOR 3 MONTHS NO SWELLING IN LEGS/ FEET OR PAIN IN CALVES SYMPTOMS MUCH WORSE WITH MINIMAL EXERTION STATES SHE HAD A "SURGICAL HERNIA" REPAIR [address] ALCANTAR--HAS LARGE VERTICAL MIDLINE INCISION FROM XYPHOID TO BELOW UMBILICUS. HAS HAD HIATAL HERNIA REPAIR X 2 HAS ALSO HAD "CECUM REMOVED" IN THE PAST STATES SHE SAW DR. RAMOS IN [place], LAST WEEK FOR THIS CHEST PAIN AND SHORTNESS OF BREATH PT IS SCHEDULED TO HAVE A STRESS TEST NEXT TUESDAY AT [facility] Allergies and Home Medications Allergies Coded Allergies: Sulfa (Sulfonamide Antibiotics) (Verified Allergy, Severe, ANAPHYLAXIS, 10/03/18) amoxicillin (Verified Allergy, Mild, RASH, 10/03/18) ceftriaxone (Verified Allergy, Mild, RASH, 10/03/18) cephalexin (Verified Allergy, Mild, RASH, 10/03/18) zolmitriptan (Verified Allergy, Mild, RASH, 10/03/18) morphine (Verified Adverse Reaction, Mild, UPSET STOMACH, N/V, 04/21/07) Home Medications Alprazolam 1 Mg Tablet, 2 MG PO HS, (Reported) Bupropion HCl 100 Mg Tablet, 100 MG PO HS, (Reported) Cholecalciferol (Vitamin D3) 2,000 Unit Capsule, 2,000 UNIT PO DAILY, (Reported) Citalopram Hydrobromide 40 Mg Tablet, 40 MG PO HS, (Reported) Estradiol/Norethindrone Acet 1 Each Tablet, 1 EACH PO HS, (Reported) Levothyroxine Sodium 88 Mcg Tablet, 88 MCG PO DAILY, (Reported) Loratadine/Pseudoephedrine 1 Each Tab.er.24h, 1 EACH PO DAILY, (Reported) Montelukast Sodium 10 Mg Tablet, 10 MG PO HS, (Reported) Multivitamin 1 Each Tablet, 1 EACH PO DAILY, (Reported) [place]burn 3 Polyunsat Fatty Acids 1,000 Mg Cap, 1,000 MG PO HS, (Reported) Patient Home Medication List Home Medication List Reviewed: Yes Review of Systems Review of Systems Constitutional: see HPI EENTM: No Symptoms Reported Respiratory: See HPI Cardiovascular: See HPI Gastrointestinal: See HPI Genitourinary: No Symptoms Reported Musculoskeletal: no symptoms reported Skin: no symptoms reported Psychiatric/Neurological: No Symptoms Reported Endocrine: No Symptoms Reported Hematologic/Lymphatic: No Symptoms Reported Past Uuiqefl-Fczkpx-Rlzmlf Hx Past Med/Social Hx: Reviewed and Corrections made Patient Social History 2nd Hand Smoke Exposure: No Recent Hopitalizations: No Seasonal Allergies Seasonal Allergies: Yes Past Medical History Surgeries: Yes (HIATAL HERNIA X2, ORAL ) Abdominal, Adenoidectomy, Section, Gallbladder, Tonsillectomy Respiratory: Yes Sleep Apnea Currently Using CPAP: Yes Cardiac: No Neurological: Yes Headaches /Migraines Reproductive Disorders: Yes Sexually Transmitted Disease: No HIV/AIDS: No Genitourinary: Yes UTI-Chronic Gastrointestinal: Yes (SBO-10/26/18-[place] AT [facility], NO SURGERY;[facility];APPY) Gastroesophageal Reflux, Obstructive Bowel, Chronic Constipation, Chronic Diarrhea, Gall Bladder Disease Musculoskeletal: Yes (cervical/ lumbar compression fractures;C-SPINE DISC HERNIATION;LUMBAR TP FX) Degenerate Disk Disease, Fibromyalgia, Chronic Back Pain Endocrine: Yes (HYPOGLYCEMIC) Hypothyroidsim HEENT: Yes (READING GLASSES) Loss of Vision: Denies Hearing Impairment: Denies Cancer: No Psychosocial: Yes Depression Integumentary: Yes Eczema Blood Disorders: No (HX ANEMIA) Adverse Reaction/Blood Tranf: No (N/A) Family Medical History PSH: -HIATAL HERNIA REPAIR X 2 -VENTRAL HERNIA REPAIR 2019--DR. ALCANTAR/ TRAV -CECUM REMOVED - -APPENDECTOMY -CHOLECYSTECTOMY -CARDIAC CATH 09/2012 -COLONOSCOPY 10/06/18 Physical Exam Vital Signs Vital Signs - First Documented Capillary Refill : Height, Weight, BMI Height: 5'3.00" Weight: 124lbs. 0oz. [id number]; 22.1 BMI Method:Actual General Appearance: No Apparent Distress, WD/WN, Other (TALKING ON CELL PHONE DURING ENTIRE STAY, NO DYSPNEA AND TALKING IN NORMAL VOICE ON PHONE, WITHOUT DYSPNEA. SLIGHTLY DYSPNEIC AND ANXIOUS ON ARRIVAL. ) HEENT: PERRL/EOMI, Normal ENT Inspection Neck: Full Range of Motion, Normal Inspection, Non Tender, Supple Respiratory: Normal Breath Sounds, No Accessory Muscle Use, No Respiratory Distress Cardiovascular: Regular Rate, Rhythm, No JVD, No Murmur, Normal Peripheral Pulses Gastrointestinal: Normal Bowel Sounds, No Organomegaly, No Pulsatile Mass, Soft, Tenderness (MILD EPIGASTRIC TENDERNESS) Extremity: Normal Capillary Refill, Normal Inspection, Normal Range of Motion, Non Tender, No Calf Tenderness, No Pedal Edema Neurologic/Psychiatric: Alert, Oriented x3, No Motor/Sensory Deficits, workers compensation attorney II- XII Norm as Tested, Other (ANXIOUS) Skin: Normal Color, Warm/Dry Progress/Results/Core Measures Results/Orders Lab Results Laboratory Tests Test 09/02/19 00:17 09/02/19 00:58 Range/Units White Blood Count 9.7 4.3-11.0 10^3/uL Red Blood Count 4.63 4.35-5.85 10^6/uL Hemoglobin 13.6 11.5-16.0 G/DL Hematocrit 41 35-52 % Mean Corpuscular Volume 88 80-99 FL Mean Corpuscular Hemoglobin 29 25-34 PG Mean Corpuscular Hemoglobin Concent 33 32-36 G/DL Red Cell Distribution Width 12.6 10.0-14.5 % Platelet Count 312 130-400 10^3/uL Mean Platelet Volume 10.6 H 7.4-10.4 FL Neutrophils (%) (Auto) 49 42-75 % Lymphocytes (%) (Auto) 38 12-44 % Monocytes (%) (Auto) 12 0-12 % Eosinophils (%) (Auto) 1 0-10 % Basophils (%) (Auto) 1 0-10 % Neutrophils # (Auto) 4.8 1.8-7.8 X 10^3 Lymphocytes # (Auto) 3.7 1.0-4.0 X 10^3 Monocytes # (Auto) 1.1 H 0.0-1.0 X 10^3 Eosinophils # (Auto) 0.1 0.0-0.3 10^3/uL Basophils # (Auto) 0.1 0.0-0.1 10^3/uL Erythrocyte Sedimentation Rate 5 0-30 MM/HR Sodium Level 138 135-145 MMOL/L Potassium Level 3.4 L 3.6-5.0 MMOL/L Chloride Level 105 98-107 MMOL/L Carbon Dioxide Level 17 L 21-32 MMOL/L Anion Gap 16 H 5-14 MMOL/L Blood Urea Nitrogen 13 7-18 MG/DL Creatinine 0.99 0.60-1.30 MG/DL Estimat Glomerular Filtration Rate 56 BUN/Creatinine Ratio 13 Glucose Level 90 70-105 MG/DL Calcium Level 9.9 8.5-10.1 MG/DL Corrected Calcium 9.7 8.5-10.1 MG/DL Magnesium Level 1.8 1.6-2.4 MG/DL Total Bilirubin 0.3 0.1-1.0 MG/DL Aspartate Amino Transf (AST/SGOT) 18 5-34 U/L Alanine Aminotransferase (ALT/SGPT) 8 0-55 U/L Alkaline Phosphatase 54 40-136 U/L Lactate Dehydrogenase 171 125-220 U/L Total Creatine Kinase 40 29-168 U/L Creatine Kinase MB 0.6 <6.6 NG/ML Myoglobin 35.3 10.0-92.0 NG/ML Troponin I < 0.028 <0.028 NG/ML C-Reactive Protein High Sensitivity 0.04 0.00-0.50 MG/DL B-Type Natriuretic Peptide < 10.0 <100.0 PG/ML Total Protein 6.6 6.4-8.2 GM/DL Albumin 4.2 3.2-4.5 GM/DL Amylase Level 70 25-125 U/L Lipase 37 8-78 U/L Procalcitonin 0.01 <0.10 NG/ML Coronavirus (COVID-19)(PCR) Negative Negative Prothrombin Time 13.8 12.2-14.7 SEC INR Comment 1.0 0.8-1.4 Activated Partial Thromboplast Time 27 24-35 SEC D-Dimer 1.05 H 0.00-0.49 UG/ML My Orders Orders - CAREY VASQUES DO Ed Iv/Invasive Line Start (09/02/19 00:06) Ekg Tracing (09/02/19 00:06) O2 (09/02/19 00:06) Monitor-Rhythm Ecg Trace Only (09/02/19 00:06) Cbc With Automated Diff (09/02/19 00:06) Magnesium (09/02/19 00:06) Chest 1 View, Ap/Pa Only (09/02/19 00:06) Comprehensive Metabolic Panel (09/02/19 00:06) Myoglobin Serum (09/02/19 00:06) Protime With Inr (09/02/19 00:06) Partial Thromboplastin Time (09/02/19 00:06) O2 (09/02/19 00:06) Ed Iv/Invasive Line Start (09/02/19 00:06) Creatine Kinase (09/02/19 00:06) Creatine Kinase Mb (09/02/19 00:06) Lipase (09/02/19 00:06) Amylase (09/02/19 00:06) BNP (09/02/19 00:06) Nitroglycerin 0.4 Mg Btl 25's (Nitrostat (09/02/19 00:15) Aspirin Chewable Tablet (Baby Aspirin Ch (09/02/19 00:15) Erythrocyte Sedimentation Rate (09/02/19 00:06) Coronavirus Sars-Cov-2 So 2018 (09/02/19 00:06) Ed Iv/Invasive Line Start (09/02/19 00:20) Ns Iv 1000 Ml (Sodium Chloride 0.9%) (09/02/19 00:20) Hs C Reactive Protein (09/02/19 00:17) LDH (09/02/19 00:17) Procalcitonin (Pct) (09/02/19 00:17) Troponin I (09/02/19 00:17) Fibrin Degradation Products (09/02/19 00:17) Ct Radha Chest/Noang Abd-Pelv W (09/02/19 01:20) Iohexol Injection (Omnipaque 350 Mg/Ml 1 (09/02/19 02:30) Received Contrast (Hold Metformin- Contr (09/02/19 02:30) Ns (Ivpb) (Sodium Chloride 0.9% Ivpb Bag (09/02/19 02:30) Medications Given in ED Vital Signs/I&O 09/02/19 09/02/19 09/02/19 09/02/19 00:07 00:07 00:27 03:10 Temp 36.5 Pulse 76 75 Resp 18 13 B/P (MAP) 97/61 (73) 119/76 (90) Pulse Ox 99 99 99 O2 Delivery Room Air Room Air Room Air Room Air 09/02/19 03:35 Temp 37.0 Pulse 76 Resp 24 B/P (MAP) 108/70 Pulse Ox 100 O2 Delivery Room Air Progress Progress Note : Progress Note PT SEEN IN COVID-UNIT. PPE WORN AT ALL TIMES COVID TESTING PERFORMED PT TALKING ON PHONE DURING ENTIRE STAY NO DYSPNEA ON PHONE, TALKS IN FULL SENTENCES PT CALMED AND SYMPTOMS IMPROVED DURING STAY, WITHOUT TREATMENT. Initial ECG Impression Date: Sep 02, 2019 Initial ECG Impression Time: 00:07 Initial ECG Rate: 72 Initial ECG Rhythm: Normal Sinus Diagnostic Imaging Comments CXR--NO ACUTE PROCESS, PENDING RADIOLOGIST REVIEW CT CHEST ANGIOGRAM/ ABDOMEN AND PELVIS--NO P.E. OR ACUTE INTRA-THORACIC FINDINGS. THICKENED RECTAL WALL--PROCTITIS VS UNDERDISTENTION, OTHERWISE NO ACUTE FINDINGS--PER [facility] VIA FAX AT 0310 Reviewed: Reviewed by Me Departure Impression Primary Impression: Chest pain Additional Impressions: Dyspnea Anxiety COVID P.U.I. Disposition: HOME, SELF-CARE Condition: Improved Departure-Patient Inst. Referrals: EULA ALICEA DO (PCP/Family) Primary Care Physician Patient Instructions: Anxiety, Adult (DC), Chest Pain (DC), Coronavirus Disease 2019 (COVID-19) (DC), Shortness of Breath (Dyspnea) (DC) Add. Discharge Instructions: HOME, REST CONTINUE YOUR CURRENT MEDICATIONS PRESCRIBED YOU MAY TAKE AN ADDITIONAL XANAX DURING THE DAY NEEDED FOR ANXIETY KEEP YOUR APPOINTMENT FOR STRESS TEST THIS WEEK FOLLOW UP WITH YOUR DR THIS WEEK FOR FURTHER CARE RETURN TO ER IF WORSE YOU AND ANY CLOSE CONTACTS NEED TO QUARANTINE FOR THE NEXT 2 WEEKS--NO ONE ENTERS OR LEAVES YOUR HOME FOR THE NEXT 2 WEEKS, EXCEPT FOR DOCTOR APPOINTMENTS All discharge instructions reviewed with patient and/or family. Voiced understanding. CAREY VASQUES DO Sep 02, 2019 00:25
--- OUTSIDE RECORDS SUMMARY | 2019-09-02 00:25 | XMS REPORT | CCD ---
Author Author Ilda Bowen APRN Organization [facility] Address [address] [place] [address] Phone Care Team Providers Care Judicial Reporter Name Role Phone Alexandra Carroll D.O., PP Unavailable CCM Unavailable Summary Purpose Interface Exchange Insurance Providers Payer name Policy type / Coverage type Covered republican ID Effective Begin Date Effective End Date WPS MEDICARE PART B [place] Medicare Part B [id number] 2019 Unknown [employer] [place] Medicare Part B [id number] Unknown Family History Family History data not found Social History Social History Element Codes Description Effective Dates Tobacco history SNOMED CT: 899239283 Nonsmoker 10/14/2010 Allergies, Adverse Reactions, Alerts Substance Reaction Codes Entered Date Inactivated Date Status MORPHINE SULFATE RxNorm: 4953425 10/14/2010 No Inactive Da te Active CEPHALOSPORINS [...] Date Active Levaquin 500 mg tablet RxNorm: 669556 1 Tablet(s) Oral QD 05/14/2019 05/21/2019 Active Xanax 1 mg tablet RxNorm: 666759 1-2 Tablet(s) Oral e very night at bedtime as needed for sleep 05/03/2019 06/01/2019 Active Generic For:LAVELLE AX 1MG 10/11/2016 11:15:13 AM cyclobenzaprine 10 mg tablet RxNorm: 153061 1 Tablet(s) Oral three times a day as needed for muscle spasm 02/12/2019 02/12/2019 Inactive Xanax 1 mg tablet RxNorm: 340014 1-2 Tablet(s) Oral e very night at bedtime as needed for sleep 02/09/2019 03/10/2019 Inactive Generic For:LAVELLE AX 1MG 10/11/2016 11:15:13 AM Xanax 1 mg tablet RxNorm: 032264 1-2 Tablet(s) Oral e very night at bedtime as needed for sleep 01/22/2019 02/08/2019 Inactive Generic For:LAVELLE AX 1MG 10/11/2016 11:15:13 AM Celexa 40 mg tablet RxNorm: 400486 1 Tablet(s) Oral QD 01/17/2019 Active - First Attempt Ref: 327060033 Xanax 1 mg tablet RxNorm: 755815 1 Tablet(s) Oral every night a t bedtime 01/08/2019 01/21/2019 Inactive levothyroxine 88 mcg tablet RxNorm: 882730 TAKE 1 TABLET BY NINA TH DAILY 12/19/2018 06/16/2019 Active - First Attempt Ref: [id number] Xanax 1 mg tablet RxNorm: 272047 1 Tablet(s) Oral every night a t bedtime 12/06/2018 01/05/2019 Inactive Singulair 10 mg tablet RxNorm: 010391 1 Tablet(s) Oral every ni ght at bedtime 11/23/2018 11/17/2019 Active - First Attempt Ref: [id number] Celexa 40 mg tablet RxNorm: 421676 1 Tablet(s) Oral 11/23/20182018 Inactive - First Attempt Ref: [id number] cyclobenzaprine 10 mg tablet RxNorm: 682533 1 Tablet(s) Oral three times a day as needed for muscle spasm 11/23/2018 02/11/2019 Inactive Xanax 1 mg tablet RxNorm: 339963 1 Tablet(s) PO QHS 11/06/20182018 Inactive Xanax 1 mg tablet RxNorm: 444627 1 Tablet(s) PO QHS 09/26/20182018 Inactive Singulair 10 mg tablet RxNorm: 251183 TAKE 1 TABLET BY MOUTH EVERY NIGHT AT BEDTIME 08/16/2018 11/22/2018 Inactive - First Attempt Ref: [id number] Xanax 1 mg tablet RxNorm: 659113 1 Tablet(s) PO QHS 08/01/20182018 Inactive levothyroxine 88 mcg tablet RxNorm: 730382 TAKE 1 TABLET BY NINA TH DAILY 07/31/2018 12/18/2018 Inactive - First Attempt Ref: [id number] Celexa 40 mg tablet RxNorm: 661603 TAKE 1 TABLET BY MOUTH DAILY 04/201811/22/2018 Inactive - First Attempt Ref: 2505502 54 bupropion HCl SR 100 mg tablet,12 hr sustained-release RxNor m: 418863 1 Tablet(s) PO BID 07/12/2018 07/06/2019 Active - Ref: 19158624 7 Claritin-D 24 Hour 10 mg-240 mg tablet,extended release RxNo rm: 9459761 1 Tablet(s) PO QD 06/29/2018 2018 Inactive Claritin-D 24 Hour 10 mg-240 mg tablet,extended release RxNo rm: 9450183 1 Tablet(s) PO QD 06/29/2018 2018 Inactive Xanax 1 mg tablet RxNorm: 082030 1-2 Tablet(s) PO QHS as needed for sleep 05/26/2018 06/23/2018 Inactive Generic For:XANAX 1M G 10/11/2016 11:15:13 AM Xanax 1 mg tablet RxNorm: 300167 1-2 Tablet(s) PO QHS as needed for sleep 03/28/2018 05/25/2018 Inactive Generic For:XANAX 1M G 10/11/2016 11:15:13 AM Macrobid 100 mg capsule RxNorm: 843559 1 Capsule(s) PO BID 03/27/19 19 03/31/2018 Inactive gabapentin 300 mg capsule RxNorm: 590981 1 Capsule(s) PO QHS 201703/26/2018 Inactive Claritin-D 24 Hour 10 mg-240 mg tablet,extended release RxNo rm: 4681293 1 Tablet(s) PO QD 01/26/2018 02/24/2018 Inactive gabapentin 100 mg capsule RxNorm: 475707 1 Capsule(s) P O QHS for 1 week then 2 po q HS for 2 weeks then 3 po q HS 01/24/2018 03/26/2018 Inactive Xanax 1 mg tablet RxNorm: 034408 1-2 Tablet(s) PO QHS as needed for sleep 01/24/2018 03/24/2018 Inactive Generic For:XANAX 1M G 10/11/2016 11:15:13 AM prednisone 20 mg tablet RxNorm: 704456 1 Tablet(s) PO T ID for 3 days then 1 po BID for 3 days then one daily for 3 days 12/29/2017 03/26/2018 Inactiv e prednisone 20 mg tablet RxNorm: 126817 3 Tablet(s) PO T ID for 3 days then 1 po BID for 3 days then one daily for 3 days 12/29/2017 12/29/2017 Inactiv e Macrobid 100 mg capsule RxNorm: 254211 1 Capsule(s) PO BID 12/30/19 18 01/02/2018 Inactive Xanax 1 mg tablet RxNorm: 471114 1-2 Tablet(s) PO QHS as needed for sleep 12/28/2017 01/23/2018 Inactive Generic For:XANAX 1M G 10/11/2016 11:15:13 AM Medrol (Walter) 4 mg tablets in a dose pack RxNorm: 221339 Tablet(s) PO take as directed 12/01/2017 03/26/2018 Inactive Keflex 750 mg capsule RxNorm: 970446 1 Capsule(s) PO BID 12/01/2017 1 Inactive clindamycin HCl 300 mg capsule RxNorm: 941536 2 Capsule(s) PO TID 1 12/08/2017 Inactive Xanax 1 mg tablet RxNorm: 532654 1-2 Tablet(s) PO QHS as needed for sleep 11/28/2017 12/27/2017 Inactive Generic For:XANAX 1M G 10/11/2016 11:15:13 AM mupirocin 2 % topical ointment RxNorm: 827950 1 Application OTIC BI D 11/28/2017 08/09/2018 Inactive Xanax 1 mg tablet RxNorm: 232463 1-2 Tablet(s) PO QHS as needed for sleep 10/27/2017 11/25/2017 Inactive Generic For:XANAX 1M G 10/11/2016 11:15:13 AM Macrobid 100 mg capsule RxNorm: 522460 1 Capsule(s) PO BID 10/11/19 18 10/16/2017 Inactive Medrol (Walter) 4 mg tablets in a dose pack RxNorm: 859772 Tablet(s) PO take as directed 10/10/2017 11/16/2017 Inactive Xanax 1 mg tablet RxNorm: 239294 1-2 Tablet(s) PO QHS as needed for sleep 09/28/2017 10/26/2017 Inactive Generic For:XANAX 1M G 10/11/2016 11:15:13 AM Xanax 1 mg tablet RxNorm: 096182 1-2 Tablet(s) PO QHS as needed for sleep 08/30/2017 09/27/2017 Inactive Generic For:XANAX 1M G 10/11/2016 11:15:13 AM Xanax 1 mg tablet RxNorm: 195217 1-2 Tablet(s) PO QHS as needed for sleep 08/30/2017 08/29/2017 Inactive Generic For:XANAX 1M G 10/11/2016 11:15:13 AM Xanax 1 mg tablet RxNorm: 490635 1-2 Tablet(s) PO QHS as needed for sleep 08/01/2017 08/29/2017 Inactive Generic For:XANAX 1M G 10/11/2016 11:15:13 AM Xanax 1 mg tablet RxNorm: 410935 1-2 Tablet(s) PO QHS as needed for sleep 06/29/2017 2017 Inactive Generic For:XANAX 1M G 10/11/2016 11:15:13 AM Claritin-D 24 Hour 10 mg-240 mg tablet,extended release RxNo rm: 9904423 1 Tablet(s) PO QD 06/29/2017 2017 Inactive levothyroxine 88 mcg tablet RxNorm: 821086 1 Tablet(s) PO QD 201709/10/2017 Inactive Xanax 1 mg tablet RxNorm: 839298 1-2 Tablet(s) PO QHS as needed for sleep 05/26/2017 06/28/2017 Inactive Generic For:XANAX 1M G 10/11/2016 11:15:13 AM Claritin-D 24 Hour 10 mg-240 mg tablet,extended release RxNo rm: 8280899 1 Tablet(s) PO QD 05/26/2017 06/24/2017 Inactive bupropion HCl SR 100 mg tablet,12 hr sustained-release RxNor m: 748681 Tablet(s) Take 1 tablet by mouth two times daily 04/06/2017 12/31/2017 Inactive - Ref: [id number] Xanax 1 mg tablet RxNorm: 156583 1-2 Tablet(s) PO QHS as needed for sleep 03/24/2017 05/22/2017 Inactive Generic For:XANAX 1M G 10/11/2016 11:15:13 AM Medrol (Walter) 4 mg tablets in a dose pack RxNorm: 064812 Tablet(s) P O 02/16/2017 03/27/2017 Inactive Xanax 1 mg tablet RxNorm: 654918 Tablet(s) TAKE ONE T O TWO TABLETS BY MOUTH AT BEDTIME NEEDED 02/16/2017 03/17/2017 Inactive Generic For:XA NAX 1MG 10/11/2016 11:15:13 AM Claritin-D 24 Hour 10 mg-240 mg tablet,extended release RxNo rm: 8821001 1 Tablet(s) PO QD 02/16/2017 04/16/2017 Inactive cefdinir 300 mg capsule RxNorm: 218299 2 Capsule(s) PO QD 02/16/2017 02/25/2017 Inactive Celexa 40 mg tablet RxNorm: 502725 Tablet(s) Take 1 tablet by m outh daily 12/23/2016 09/18/2017 Inactive - Ref: 439101225 Xanax 1 mg tablet RxNorm: 023881 Tablet(s) TAKE ONE T O TWO TABLETS BY MOUTH AT BEDTIME NEEDED 12/16/2016 01/14/2017 Inactive Generic For:XA NAX 1MG 10/11/2016 11:15:13 AM Xanax 1 mg tablet RxNorm: 916797 Tablet(s) TAKE ONE T O TWO TABLETS BY MOUTH AT BEDTIME NEEDED 11/18/2016 12/15/2016 Inactive Generic For:XA NAX 1MG 10/11/2016 11:15:13 AM Xanax 1 mg tablet RxNorm: 487989 TAKE ONE TO TWO TABL ETS BY MOUTH AT BEDTIME NEEDED 10/11/2016 11/17/2016 Inactive Generic For:XANA X 1MG 10/11/2016 11:15:13 AM Mobic 15 mg tablet RxNorm: 408927 1 Tablet(s) PO QD 09/06/20162016 Inactive Claritin-D 24 Hour 10 mg-240 mg tablet,extended release RxNo rm: 1750205 1 Tablet(s) PO QD 09/02/2016 11/30/2016 Inactive prednisone 20 mg tablet RxNorm: 680059 1 Tablet(s) PO T ID for 3 days then 1 po BID for 3 days then one daily for 3 days 08/16/2016 03/27/2017 Inactiv e cefdinir 300 mg capsule RxNorm: 675435 2 Capsule(s) PO QD 08/16/2016 09/05/2016 Inactive Xanax 1 mg tablet RxNorm: 885307 TAKE ONE TO TWO TABL ETS BY MOUTH AT BEDTIME NEEDED 08/05/2016 10/11/2016 Inactive Generic For:XANA X 1MG 08/05/2016 2:27:03 PM08/04/2016 4:15:22 PM Singulair 10 mg tablet RxNorm: 564425 1 Tablet(s) PO QHS 07/06/2016 0 09/03/2016 Inactive prednisone 20 mg tablet RxNorm: 555984 1 Tablet(s) PO T ID for 3 days then 1 po BID for 3 days then one daily for 3 days 06/15/2016 07/05/2016 Inactiv e Singulair 10 mg tablet RxNorm: 137380 1 Tablet(s) PO QHS 06/15/2016 0 07/05/2016 Inactive cefdinir 300 mg capsule RxNorm: 879370 2 Capsule(s) PO QD 06/15/2016 07/05/2016 Inactive Xanax 1 mg tablet RxNorm: 983545 1-2 Tablet(s) PO QHS 05/21/201610/2016 Inactive Claritin-D 24 Hour 10 mg-240 mg tablet,extended release RxNo rm: 0292855 1 Tablet(s) PO QD 04/09/2016 07/07/2016 Inactive Xanax 1 mg tablet RxNorm: 601812 1-2 Tablet(s) PO QHS 03/23/201604/29 Inactive levothyroxine 88 mcg tablet RxNorm: 554313 1 Tablet(s) PO QD 201606/13/2017 Inactive bupropion HCl SR 100 mg tablet,sustained-release RxNorm: 993 503 Take 1 tablet by mouth two times daily 03/15/2016 12/09/2016 Inactive - Ref: 20 [id number] Celexa 40 mg tablet RxNorm: 237023 Take 1 tablet by mouth daily 12/23/2016 Inactive - Ref: 403222173 Xanax 1 mg tablet RxNorm: 687441 1-2 Tablet(s) PO QHS 02/17/201603/01 Inactive levothyroxine 88 mcg tablet RxNorm: 456721 1 Tablet(s) PO QD 201502/22/2016 Inactive Xanax 1 mg tablet RxNorm: 067354 1-2 Tablet(s) PO QHS 11/25/201511/29 Inactive levothyroxine 88 mcg tablet RxNorm: 807522 1 Tablet(s) PO QD 201511/24/2015 Inactive temazepam 30 mg capsule RxNorm: 877899 1 Capsule(s) PO QHS 11/13/19 16 11/24/2015 Inactive Xanax 1 mg tablet RxNorm: 920698 1-2 Tablet(s) PO QHS 09/15/201510/29 Inactive Celexa 40 mg tablet RxNorm: 258798 1 Tablet(s) PO QD 1 Tablet(s ) PO QD 09/10/2015 09/16/2015 Inactive bupropion HCl SR 100 mg tablet,sustained-release RxNorm: 993 503 1 Tablet(s) PO BID 09/10/2015 09/23/2015 Inactive Xanax 1 mg tablet RxNorm: 525491 1-2 Tablet(s) PO QHS 09/10/201508/28 Inactive Xanax 1 mg tablet RxNorm: 996953 1-2 Tablet(s) PO QHS 08/11/201508/28 Inactive cyclobenzaprine 10 mg tablet RxNorm: 167094 1 Tablet(s) PO TID prn spasm 07/09/2015 11/23/2018 Inactive Celexa 40 mg tablet RxNorm: 162424 1 Tablet(s) PO QD 06/06/201508/03 Inactive Xanax 1 mg tablet RxNorm: 496294 1-2 Tablet(s) PO QHS 06/04/201505/2015 Inactive levothyroxine 88 mcg tablet RxNorm: 528118 1 Tablet(s) PO QD 201511/23/2015 Inactive Ceftin 500 mg tablet RxNorm: 757788 1 Tablet(s) PO BID 05/05/2015 Inactive Ceftin 500 mg tablet RxNorm: 443841 1 Tablet(s) PO BID 05/05/201507/2015 Inactive meloxicam 15 mg tablet RxNorm: 431364 1 Tablet(s) PO QD 04/16/2015 Inactive meloxicam 15 mg tablet RxNorm: 999566 1 Tablet(s) PO QD 04/16/2015 Inactive diclofenac sodium 75 mg tablet,delayed release RxNorm: 68754 6 1 Tablet(s) PO BID 04/04/2015 04/15/2015 Inactive diclofenac sodium 75 mg tablet,delayed release RxNorm: 69342 6 1 Tablet(s) PO BID 04/04/2015 04/03/2015 Inactive Tivorbex 40 mg capsule RxNorm: 9823653 1 Capsule(s) PO TID 03/24/19 16 04/02/2015 Inactive bupropion HCl SR 100 mg tablet,sustained-release RxNorm: 993 503 1 Tablet(s) PO BID 03/11/2015 09/06/2015 Inactive cyclobenzaprine 10 mg tablet RxNorm: 114185 1 Tablet(s) PO TID prn spasm 03/11/2015 07/08/2015 Inactive levothyroxine 88 mcg tablet RxNorm: 116516 1 Tablet(s) PO QD 201405/27/2015 Inactive Claritin-D 24 Hour 10 mg-240 mg tablet,extended release RxNo rm: 4297978 1 Tablet(s) PO QD 02/27/2015 05/27/2015 Inactive cefuroxime axetil 500 mg tablet RxNorm: 443229 1 Tablet(s) PO BID 1 03/12/2015 Inactive Celexa 40 mg tablet RxNorm: 959461 1 Tablet(s) PO QD 02/05/201504/05 Inactive levothyroxine 75 mcg tablet RxNorm: 302583 1 Tablet(s) PO QD 201402/26/2015 Inactive Celexa 40 mg tablet RxNorm: 682293 1 Tablet(s) PO QD 10/09/201402/04 Inactive Activella 1 mg-0.5 mg tablet RxNorm: 6073708 1 Tablet(s) PO QD 08/2802/26/2015 Inactive bupropion HCl SR 100 mg tablet,sustained-release RxNorm: 993 503 1 Tablet(s) PO BID 09/12/2014 03/10/2015 Inactive levothyroxine 75 mcg tablet RxNorm: 177744 1 Tablet(s) PO QD 201412/09/2014 Inactive levothyroxine 75 mcg tablet RxNorm: 367070 1 Tablet(s) PO QD 201409/11/2014 Inactive Celexa 40 mg tablet RxNorm: 457891 1 Tablet(s) PO QD 08/12/201410/08 Inactive Xanax 1 mg tablet RxNorm: 009282 1-2 Tablet(s) PO QHS 08/12/201409/28 Inactive Claritin-D 24 Hour 10 mg-240 mg tablet,extended release RxNo rm: 7605721 1 Tablet(s) PO QD 06/13/2014 09/10/2014 Inactive cyclobenzaprine 10 mg tablet RxNorm: 623186 1 Tablet(s) PO TID prn spasm 06/12/2014 02/26/2015 Inactive Xanax 1 mg tablet RxNorm: 027896 1-2 Tablet(s) PO QHS 05/09/201406/28 Inactive levothyroxine 75 mcg tablet RxNorm: 428765 1 Tablet(s) PO QD 201407/08/2014 Inactive cephalexin 500 mg capsule RxNorm: 521702 1 Capsule(s) PO QOD 201402/26/2015 Inactive simvastatin 10 mg tablet RxNorm: 801978 1 Tablet(s) PO QHS 04/10/19 15 06/12/2014 Inactive Xanax 1 mg tablet RxNorm: 046703 1-2 Tablet(s) PO QHS 04/10/201404/28 Inactive levothyroxine 75 mcg tablet RxNorm: 753454 1 Tablet(s) PO QD 201404/09/2014 Inactive levothyroxine 75 mcg capsule RxNorm: 211295 1 Capsule(s) PO QD 03/3104/10/2014 Inactive Activella 1 mg-0.5 mg tablet RxNorm: 2332895 1 Tablet(s) PO QD 03/0109/11/2014 Inactive bupropion HCl SR 100 mg tablet,sustained-release RxNorm: 993 503 1 Tablet(s) PO BID 03/04/2014 08/30/2014 Inactive Activella 1 mg-0.5 mg tablet RxNorm: 7404451 1 Tablet(s) PO QD 01/2803/18/2014 Inactive levothyroxine 75 mcg capsule RxNorm: 276806 1 Capsule(s) PO QD 12/2904/08/2014 Inactive simvastatin 10 mg tablet RxNorm: 474966 1 Tablet(s) PO QHS 01/10/20 14 04/08/2014 Inactive cyclobenzaprine 10 mg tablet RxNorm: 441479 1 Tablet(s) PO TID prn spasm 01/09/2014 04/08/2014 Inactive Cipro 500 mg tablet RxNorm: 307592 1 Tablet(s) PO BID 12/25/201304/2013 Inactive Cipro 500 mg tablet RxNorm: 138484 1 Tablet(s) PO BID 12/25/201311/29 Inactive bupropion HCl SR 100 mg tablet,sustained-release RxNorm: 993 503 1 Tablet(s) PO QAM 12/11/2013 03/03/2014 Inactive cephalexin 500 mg capsule RxNorm: 878492 1 Capsule(s) PO QOD 201304/09/2014 Inactive Xanax 1 mg tablet RxNorm: 556357 1-2 Tablet(s) PO QHS 10/15/201310/29 Inactive simvastatin 10 mg tablet RxNorm: 936323 1 Tablet(s) PO QHS 10/11/19 14 01/07/2014 Inactive Celexa 40 mg tablet RxNorm: 432020 Tablet(s) PO TAKE 1 TABLET BY MOUTH ONCE DAILY. 09/18/2013 09/17/2013 Inactive Xanax 1 mg tablet RxNorm: 675406 1-2 Tablet(s) PO QHS 08/13/201308/28 Inactive simvastatin 10 mg tablet RxNorm: 610889 1 Tablet(s) PO QHS 07/12/19 14 10/08/2013 Inactive bupropion HCl SR 100 mg tablet,sustained-release RxNorm: 993 503 1 Tablet(s) PO QAM 05/22/2013 11/17/2013 Inactive Pamelor 10 mg capsule RxNorm: 621619 1 Capsule(s) PO QHS for PLATA /sleep 05/22/2013 06/04/2013 Inactive Xanax 1 mg tablet RxNorm: 191877 1-2 Tablet(s) PO QHS 05/15/201305/29 Inactive Pamelor 10 mg capsule RxNorm: 454891 1 Capsule(s) PO QHS for PLATA /sleep 05/15/2013 05/21/2013 Inactive Xanax 1 mg tablet RxNorm: 688307 1 Tablet(s) PO QHS 04/27/20132013 Inactive Zovirax 800 mg tablet RxNorm: 413410 1 Tablet(s) PO TID 04/05/2013 Inactive Xanax 1 mg tablet RxNorm: 687700 1 Tablet(s) PO QHS 04/03/2013 No Sto p Date Active bupropion HCl SR 100 mg tablet,sustained-release RxNorm: 993 503 1 Tablet(s) PO QAM 03/26/2013 05/21/2013 Inactive bupropion HCl SR 100 mg tablet,sustained-release RxNorm: 993 503 1 Tablet(s) PO QAM 03/06/2013 03/25/2013 Inactive Pamelor 10 mg capsule RxNorm: 922129 1 Capsule(s) PO QHS for PLATA /sleep 02/14/2013 05/14/2013 Inactive levothyroxine 75 mcg capsule RxNorm: 768808 1 Capsule(s) PO QD 12/2901/08/2014 Inactive simvastatin 10 mg tablet RxNorm: 678726 1 Tablet(s) PO QHS TAKE 1 TABLET BY MOUTH ONCE DAILY AT BEDTIME. 01/15/2013 07/10/2013 Inactive cyclobenzaprine 10 mg tablet RxNorm: 448797 1 Tablet(s) PO TID prn spasm 12/25/2012 06/22/2013 Inactive Pamelor 10 mg capsule RxNorm: 044643 1 Capsule(s) PO QHS for PLATA /sleep 11/29/2012 02/14/2013 Inactive Celexa 40 mg tablet RxNorm: 108795 Tablet(s) PO TAKE 1 TABLET BY MOUTH ONCE DAILY. 10/11/2012 09/17/2013 Inactive simvastatin 10 mg tablet RxNorm: 539918 Tablet(s) PO TA KE 1 TABLET BY MOUTH ONCE DAILY AT BEDTIME. 10/11/2012 01/14/2013 Inactive simvastatin 10 mg tablet RxNorm: 742131 1 Tablet(s) PO QD 07/11/2012 10/08/2012 Inactive simvastatin 10 mg tablet RxNorm: 142886 1 Tablet(s) PO QD 04/14/2012 07/11/2012 Inactive simvastatin 10 mg tablet RxNorm: 186479 1 Tablet(s) PO QD 04/14/2012 04/13/2012 Inactive Celexa 40 mg tablet RxNorm: 620362 1 Tablet(s) PO QD 03/15/201209/10 Inactive cyclobenzaprine 10 mg tablet RxNorm: 659929 1 Tablet(s) PO TID prn spasm 02/02/2012 02/01/2012 Inactive cyclobenzaprine 10 mg tablet RxNorm: 538849 1 Tablet(s) PO TID prn spasm 02/02/2012 07/30/2012 Inactive Diflucan 100 mg Tab RxNorm: 259096 1 Tablet(s) PO QD 08/17/201108/22 Inactive Cipro 250 mg Tab RxNorm: 204177 1 Tablet(s) PO QD 08/17/2011 10/15/19 12 Inactive Levaquin 500 mg Tab RxNorm: 677293 1 Tablet(s) PO QD 08/17/201108/22 Inactive Pyridium 200 mg Tab RxNorm: 0424977 1 Tablet(s) PO TID 10/14/2010 Inactive may turn urine orange-red color. Cipro 500 mg Tab RxNorm: 067753 1 Tablet(s) PO BID 10/14/2010 011 Inactive levothyroxine 75 mcg capsule RxNorm: 406787 1 Capsule(s) PO QD 12/3001/14/2011 Inactive Vitamin D3 5,000 unit tablet RxNorm: 117575 1 Tablet(s) PO QD No Star t Date Active Nasacort 55 mcg nasal spray aerosol RxNorm: 4090248 2 Sp ray NASAL each nostril QHS No Start Date Active cyclobenzaprine 10 mg tablet RxNorm: 835794 1 Tablet(s) PO TID as needed No Start Date 11/22/2018 Inactive Vitamin D2 1,000 unit capsule RxNorm: 721680 3 Capsule(s) PO QD No Start Date 11/16/2017 Inactive diclofenac sodium 75 mg tablet,delayed release RxNorm: 65802 6 1 Tablet(s) PO BID No Start Date 03/16/2016 Inactive cephalexin 500 mg capsule RxNorm: 341151 1 Capsule(s) PO QOD No Sta rt Date 12/04/2013 Inactive cyclobenzaprine 10 mg tablet RxNorm: 444907 1 Tablet(s) PO QHS No S tart Date 02/01/2012 Inactive loratadine 10 mg tablet RxNorm: 646751 1 Tablet(s) PO QHS No Start Date 05/14/2019 Inactive hydrocodone 5 mg-acetaminophen 500 mg tablet RxNorm: 687677 1 -2 Tablet(s) PO Q6H as needed No Start Date 08/09/2018 Inactive etodolac 400 mg tablet RxNorm: 236113 1 Tablet(s) PO TID No Start D ate 09/17/2018 Inactive Xanax 1 mg tablet RxNorm: 773028 1 Tablet(s) PO QHS No Start Date 04/2013 Inactive Vitamin D3 1,000 unit capsule RxNorm: 339015 1 Capsule(s) PO QD No Start Date 06/12/2014 Inactive estradiol 2 mg tablet RxNorm: 495144 1/2 Tablet(s) PO QD No Start D ate 03/05/2013 Inactive Celexa 40 mg tablet RxNorm: 398948 1 Tablet(s) PO QD No Start Date Inactive Activella 1 mg-0.5 mg tablet RxNorm: 2080400 1 Tablet(s) PO QD No S tart Date 07/10/2012 Inactive medroxyprogesterone 5 mg tablet RxNorm: 3540797 1/2 Tablet(s) PO QD No Start Date 03/05/2013 Inactive levothyroxine 88 mcg tablet RxNorm: 963236 1 Tablet(s) PO QD No Sta rt Date 02/26/2015 Inactive Keflex 500 mg capsule RxNorm: 308820 1 Capsule(s) PO PRN No Start D ate 08/16/2011 Inactive Activella 1 mg-0.5 mg tablet RxNorm: 4363551 1 Tablet(s) PO QHS No Start Date 03/27/2017 Inactive Activella 1 mg-0.5 mg tablet RxNorm: 3376493 1 Tablet(s) PO QD No S tart Date 02/06/2014 Inactive Flexeril 10 mg Tab RxNorm: 094851 1 Tablet(s) PO TID No Start Date Inactive prn spasm simvastatin 10 mg tablet RxNorm: 434864 1 Tablet(s) PO QD No Start Date 04/13/2012 Inactive Medication Administered No Medication Administered data Immunizations Vaccine Codes Date Status Influenza CVX: 135 01/16/2019 Complete Pneumococcal CVX: 133 01/16/2019 Complete Results No Results data Procedures Procedure Codes Date DEXAMETHASONE SODIUM PHOS CPT-4: J1100 05/14/2019 THER/PROPH/DIAG INJ SC/IM CPT-4: 42463 05/14/2019 THER/PROPH/DIAG INJ SC/IM CPT-4: 21812 05/14/2019 TRIAMCINOLONE ACET INJ NOS CPT-4: J3301 05/14/2019 FLU VACC PRSV FREE INC ANTIG 65 AND OLDER CPT-4: 44457 01/16/2019 FLU VACC PRSV FREE INC ANTIG 65 AND OLDER CPT-4: 89107 01/16/2019 PNEUMOCOCCAL VACC 13 NARESH IM CPT-4: 04510 01/16/2019 SKIN FUNGI CULTURE CPT-4: 37624 01/16/2019 IMMUNIZATION ADMIN CPT-4: 54157 01/16/2019 IMMUNIZATION ADMIN EACH ADD CPT-4: 83296 01/16/2019 THER/PROPH/DIAG INJ SC/IM CPT-4: 11959 01/17/2018 KETOROLAC TROMETHAMINE INJ CPT-4: J1885 01/17/2018 THER/PROPH/DIAG INJ SC/IM CPT-4: 61162 01/17/2018 PROMETHAZINE HCL INJECTION CPT-4: J2550 01/17/2018 URINALYSIS NONAUTO W/O SCOPE CPT-4: 97753 12/29/2017 URINE CULTURE/ COLONY COUNT CPT-4: 43639 12/29/2017 THER/PROPH/DIAG INJ SC/IM CPT-4: 17148 11/30/2017 TRIAMCINOLONE ACET INJ NOS CPT-4: J3301 11/30/2017 DEXAMETHASONE SODIUM PHOS CPT-4: J1100 11/30/2017 CEFTRIAXONE SODIUM INJECTION CPT-4: J0696 11/29/2017 THER/PROPH/DIAG INJ SC/IM CPT-4: 18995 11/29/2017 CEFTRIAXONE SODIUM INJECTION CPT-4: J0696 11/28/2017 THER/PROPH/DIAG INJ SC/IM CPT-4: 85186 11/28/2017 URINALYSIS NONAUTO W/O SCOPE CPT-4: 49330 10/10/2017 THER/PROPH/DIAG INJ SC/IM CPT-4: 01902 10/10/2017 TRIAMCINOLONE ACET INJ NOS CPT-4: J3301 10/10/2017 DEXAMETHASONE SODIUM PHOS CPT-4: J1100 10/10/2017 CEFTRIAXONE SODIUM INJECTION CPT-4: J0696 10/10/2017 THER/PROPH/DIAG INJ SC/IM CPT-4: 87749 10/10/2017 URINE CULTURE/ COLONY COUNT CPT-4: 28886 10/10/2017 THER/PROPH/DIAG INJ SC/IM CPT-4: 90480 11/02/2016 KETOROLAC TROMETHAMINE INJ CPT-4: J1885 11/02/2016 THER/PROPH/DIAG INJ SC/IM CPT-4: 68794 06/15/2016 TRIAMCINOLONE ACET INJ NOS CPT-4: J3301 06/15/2016 DEXAMETHASONE SODIUM PHOS CPT-4: J1100 06/15/2016 THER/PROPH/DIAG INJ SC/IM CPT-4: 65452 04/09/2016 KETOROLAC TROMETHAMINE INJ CPT-4: J1885 04/09/2016 PROMETHAZINE HCL INJECTION CPT-4: J2550 04/09/2016 EXC TR-EXT B9+ERASMO 0.5 CM< CPT-4: 83880 06/12/2015 URINALYSIS NONAUTO W/O SCOPE CPT-4: 04368 05/05/2015 URINE CULTURE/ COLONY COUNT CPT-4: 70993 05/05/2015 URINALYSIS NONAUTO W/O SCOPE CPT-4: 19527 03/24/2015 URINALYSIS NONAUTO W/O SCOPE CPT-4: 61611 02/27/2015 URINE CULTURE/ COLONY COUNT CPT-4: 90121 02/27/2015 THER/PROPH/DIAG INJ SC/IM CPT-4: 91298 04/18/2014 KETOROLAC TROMETHAMINE INJ CPT-4: J1885 04/18/2014 THER/PROPH/DIAG INJ SC/IM CPT-4: 70367 06/05/2013 TRIAMCINOLONE ACET INJ NOS CPT-4: J3301 06/05/2013 THER/PROPH/DIAG INJ SC/IM CPT-4: 73877 11/29/2012 KETOROLAC TROMETHAMINE INJ CPT-4: J1885 11/29/2012 URINALYSIS NONAUTO W/O SCOPE CPT-4: 92884 07/11/2012 URINE CULTURE/ COLONY COUNT CPT-4: 31372 07/11/2012 OCCULT BLOOD FECES CPT-4: 93790 02/17/2012 URINALYSIS NONAUTO W/O SCOPE CPT-4: 57294 08/27/2011 URINE CULTURE/ COLONY COUNT CPT-4: 71990 08/27/2011 URINALYSIS NONAUTO W/O SCOPE CPT-4: 94396 08/17/2011 URINE CULTURE/ COLONY COUNT CPT-4: 58897 08/17/2011 URINALYSIS NONAUTO W/O SCOPE CPT-4: 54753 12/28/2010 URINE CULTURE/ COLONY COUNT CPT-4: 26157 12/28/2010 URINALYSIS NONAUTO W/O SCOPE CPT-4: 65712 11/09/2010 URINE CULTURE/ COLONY COUNT CPT-4: 32357 11/09/2010 URINALYSIS NONAUTO W/O SCOPE CPT-4: 69999 10/29/2010 URINE CULTURE/ COLONY COUNT CPT-4: 74951 10/29/2010 URINE CULTURE/ COLONY COUNT CPT-4: 90023 10/14/2010 URINALYSIS NONAUTO W/O SCOPE CPT-4: 46454 10/14/2010 Vital Signs Date Vital 05/14/2019 Blood [...] 1: 122/74 Code: 8480-6 BMI: 22.0 Code: 75430-9 Heart Rate 1: 72 bpm Height: 5'3" [...] 1: 126/72 Code: 8480-6 BMI: 22.7 Code: 12598-2 Heart Rate 1: 72 bpm Height: 5'3" [...] 1: 112/70 Code: 8480-6 BMI: 22.0 Code: 37439-5 Heart Rate 1: 80 bpm Height: 5'3" [...] 1: 122/64 Code: 8480-6 BMI: 21.4 Code: 69807-7 Heart Rate 1: 88 bpm Height: 5'3" Respiratory Rate: 22 bpm SpO2: 96% Tempera ture: 36.8 (C) / 98.2 (F) Weight: 121 lbs 06/22/2017 Blood Pressure 1: 124/78 Code: 8480-6 BMI: 21.6 Code: 74356-1 Heart Rate 1: 76 bpm Height: 5'3" Respiratory Rate: 20 bpm Temperature: 36 .8 (C) / 98.3 (F) Weight: 122 lbs 03/28/2017 Blood Pressure 1: 92/60 Code: 8480-6 BMI: 20.4 C ode: 97026-0 Heart Rate 1: 72 bpm Height: 5'3" Respiratory Rate: 20 bpm Temperature: 36 .9 (C) / 98.4 (F) Weight: 115 lbs 02/16/2017 Blood Pressure 1: 106/70 Code: 8480-6 BMI: 21.3 Code: 80051-0 Heart Rate 1: 82 bpm Height: 5'3" Respiratory Rate: 22 bpm SpO2: 97% Tempera ture: 36.1 (C) / 97.0 (F) Weight: 120 lbs 09/06/2016 Blood Pressure 1: 118/64 Code: 8480-6 BMI: 22.7 Code: 91202-7 Heart Rate 1: 78 bpm Height: 5'3" Respiratory Rate: 20 bpm SpO2: 98% Tempera ture: 36.2 (C) / 97.2 (F) Weight: 128 lbs 08/16/2016 Blood Pressure 1: 118/78 Code: 8480-6 BMI: 22.1 Code: 27258-4 Heart Rate 1: 78 bpm Height: 5'3" Respiratory Rate: 20 bpm SpO2: 97% Tempera ture: 36.2 (C) / 97.1 (F) Weight: 125 lbs 07/19/2016 Blood Pressure 1: 116/68 Code: 8480-6 BMI: 22.5 Code: 06738-1 Heart Rate 1: 76 bpm Height: 5'3" Respiratory Rate: 20 bpm Temperature: 36 .8 (C) / 98.2 (F) Weight: 127 lbs 07/06/2016 Blood Pressure 1: 106/70 Code: 8480-6 BMI: 22.5 Code: 58329-2 Heart Rate 1: 72 bpm Height: 5'3" Respiratory Rate: 20 bpm SpO2: 97% Tempera ture: 36.8 (C) / 98.2 (F) Weight: 127 lbs 06/15/2016 Blood Pressure 1: 136/76 Code: 8480-6 BMI: 22.9 Code: 69097-4 Heart Rate 1: 74 bpm Height: 5'3" Respiratory Rate: 18 bpm SpO2: 98% Tempera ture: 36.4 (C) / 97.6 (F) Weight: 129 lbs 04/09/2016 Blood Pressure 1: 124/78 Code: 8480-6 BMI: 23.0 Code: 65303-5 Heart Rate 1: 86 bpm Height: 5'3" Respiratory Rate: 20 bpm SpO2: 96% Tempera ture: 36.5 (C) / 97.7 (F) Weight: 130 lbs 03/17/2016 Blood Pressure 1: 116/74 Code: 8480-6 BMI: 23.4 Code: 20233-9 Heart Rate 1: 84 bpm Height: 5'3" Respiratory Rate: 20 bpm SpO2: 97% Tempera ture: 36.8 (C) / 98.3 (F) Weight: 132 lbs 11/13/2015 Blood Pressure 1: 124/78 Code: 8480-6 BMI: 23.4 Code: 85595-2 Heart Rate 1: 88 bpm Height: 5'3" Respiratory Rate: 24 bpm SpO2: 98% Tempera ture: 36.8 (C) / 98.2 (F) Weight: 132 lbs 06/12/2015 Blood Pressure 1: 126/78 Code: 8480-6 BMI: 23.6 Code: 81041-3 Heart Rate 1: 80 bpm Height: 5'3" Respiratory Rate: 20 bpm Temperature: 36 .9 (C) / 98.4 (F) Weight: 133 lbs 04/22/2015 Blood Pressure 1: 126/68 Code: 8480-6 BMI: 23.6 Code: 99566-2 Heart Rate 1: 80 bpm Height: 5'3" Respiratory Rate: 20 bpm Temperature: 36 .6 (C) / 97.9 (F) Weight: 133 lbs 03/24/2015 Blood Pressure 1: 116/66 Code: 8480-6 BMI: 22.9 Code: 06257-8 Heart Rate 1: 74 bpm Height: 5'3" Respiratory Rate: 20 bpm Temperature: 36 .4 (C) / 97.6 (F) Weight: 129 lbs 02/27/2015 Blood Pressure 1: 106/64 Code: 8480-6 BMI: 22.7 Code: 07148-2 Heart Rate 1: 74 bpm Height: 5'3" Respiratory Rate: 20 bpm Temperature: 36 .8 (C) / 98.2 (F) Weight: 128 lbs 06/13/2014 Blood Pressure 1: 104/66 Code: 8480-6 BMI: 22.7 Code: 95238-2 Heart Rate 1: 84 bpm Height: 5'3" Respiratory Rate: 20 bpm Temperature: 37 .0 (C) / 98.6 (F) Weight: 128 lbs 04/18/2014 Blood Pressure 1: 112/62 Code: 8480-6 BMI: 22.0 Code: 04173-8 Heart Rate 1: 82 bpm Height: 5'3" Respiratory Rate: 18 bpm Temperature: 36 .4 (C) / 97.6 (F) Weight: 124 lbs 12/05/2013 Blood Pressure 1: 106/70 Code: 8480-6 BMI: 23.7 Code: 78066-5 Heart Rate 1: 84 bpm Height: 5'3" [...] 1: 126/88 Code: 8480-6 BMI: 22.3 Code: 70218-6 Heart Rate 1: 96 bpm Height: 5'4" Respiratory Rate: 20 bpm Temperature: 37 .7 (C) / 99.9 (F) Weight: 130 lbs 11/29/2012 Blood Pressure 1: 122/76 Code: 8480-6 BMI: 23.0 Code: 15256-1 Heart Rate 1: 84 bpm Height: 5'4" Respiratory Rate: 20 bpm Temperature: 36 .9 (C) / 98.4 (F) Weight: 134 lbs 09/26/2012 Blood Pressure 1: 114/76 Code: 8480-6 BMI: 23.0 Code: 66861-0 Heart Rate 1: 84 bpm Height: 5'4" Respiratory Rate: 20 bpm Temperature: 37 .3 (C) / 99.1 (F) Weight: 134 lbs 07/11/2012 Blood Pressure 1: 126/78 Code: 8480-6 BMI: 23.7 Code: 29144-7 Heart Rate 1: 76 bpm Height: 5'4" Respiratory Rate: 20 bpm Temperature: 37 .1 (C) / 98.7 (F) Weight: 138 lbs 02/02/2012 Blood Pressure 1: 108/70 Code: 8480-6 BMI: 23.2 Code: 28594-7 Heart Rate 1: 88 bpm Height: 5'4" Respiratory Rate: 20 bpm Temperature: 36 .4 (C) / 97.6 (F) Weight: 135 lbs 08/17/2011 Blood Pressure 1: 108/70 Code: 8480-6 BMI: 23.2 Code: 10354-7 Heart Rate 1: 72 bpm Height: 5'4" Respiratory Rate: 20 bpm Temperature: 36 .8 (C) / 98.2 (F) Weight: 135 lbs 10/14/2010 Blood Pressure 1: 120/72 Code: 8480-6 BMI: 23.4 Code: 16738-0 Heart Rate 1: 78 bpm Height: 5'3" [...] dysuria. Encounters Encounter Performer Location Codes Date ([id number]) OFFICE/OUTPATIENT VISIT EST Diagnosis: Contact dermatitis due to plant[ICD10: L25.5] Diagnosis: Cellulitis of left arm[ICD10: L03.114] Vandana Crowe PHILOMENA ALLEN [facility] CPT-4: 28818 05/14/2019 ([id number]) OFFICE/OUTPATIENT VISIT EST Diagnosis: Ventral hernia[ICD10: K43.9] Diagnosis: Incisional hernia[ICD10: K43.2] Alexandra FORDE [facility] CPT-4: 44332 04/10/2019 ([id number]) OFFICE/OUTPATIENT VISIT EST Diagnosis: Insomnia[ICD10: G47.00] Diagnosis: Thrombocytosis[ICD10: D47.3] Alexandra FORDE [facility] CPT-4: 80225 02/14/2019 ([id number]) OFFICE/OUTPATIENT VISIT EST Diagnosis: Small bowel obstruction[ICD10: K56.609] Diagnosis: FLU VACCINE[ICD10: Z23] Diagnosis: PNEUMOCOCCAL VACCINE[ICD10: Z23] Diagnosis: Onychomycosis[ICD10: B35.1] Alexandra KUNZ [facility] CPT-4: 96752 01/16/2019 ([id number]) OFFICE/OUTPATIENT VISIT EST Diagnosis: Diarrhea, unspecified[ICD10: R19.7] Diagnosis: Radiculopathy, lumbosacral region[ICD10: M54.17] Alexandra CARROLL [facility] CPT-4: 78746 09/18/2018 OFFICE/OUTPATIENT VISIT EST Diagnosis: Other intervertebral disc degeneration, lumbar region[ICD10: M51.36] Diagnosis: Sacroiliitis, not elsewhere classified[ICD10: M46.1] Diagnosis: Obstructive sleep apnea (adult) (pediatric)[ICD10: G47.33] Alexandra CARROLL [facility] CPT-4: 19965 08/10/2018 ([id number]) OFFICE/OUTPATIENT VISIT EST Diagnosis: Fracture of unspecified part of left clavicle, subsequent encounter for fracture with routine healing[ICD10: S42.002D] Diagnosis: Cervicalgia[ICD10: M54.2] Diagnosis: Radiculopathy, lumbosacral region[ICD10: M54.17] [facility] 64553 03/27/2018 ([id number]) OFFICE/OUTPATIENT VISIT EST Diagnosis: Fracture of unspecified part of left clavicle, subsequent encounter for fracture with routine healing[ICD10: S42.002D] Diagnosis: Other intervertebral disc degeneration, lumbar region[ICD10: M51.36] Diagnosis: Unspecified fracture of first thoracic vertebra, subsequent encounter for fracture with routine healing[ICD10: S22.019D] Diagnosis: Unspecified fracture of second thoracic vertebra, subsequent encounter for fracture with routine healing[ICD10: S22.029D] [facility]: 75206 02/23/2018 ([id number]) OFFICE/OUTPATIENT VISIT EST Diagnosis: Fracture of unspecified part of left clavicle, subsequent encounter for fracture with routine healing[ICD10: S42.002D] Diagnosis: Unspecified fracture of first thoracic vertebra, subsequent encounter for fracture with routine healing[ICD10: S22.019D] Diagnosis: Unspecified fracture of second thoracic vertebra, subsequent encounter for fracture with routine healing[ICD10: S22.029D] Alexandra CARROLL [facility] CPT-4: 60457 01/24/2018 ([id number]) OFFICE/OUTPATIENT VISIT EST Diagnosis: Migraine, unspecified, not intractable, without status migrainosus[ICD10: G43.909] Alexandra CARROLL DO [facility] CPT - 4: 10156 01/17/2018 ([id number]) OFFICE/OUTPATIENT VISIT EST Diagnosis: Hematuria, unspecified[ICD10: R31.9] Diagnosis: Other intervertebral disc degeneration, lumbar region[ICD10: M51.36] Diagnosis: Retention of urine, unspecified[ICD10: R33.9] Alexandra CARROLL [facility] CPT-4: 57082 12/29/2017 OFFICE/OUTPATIENT VISIT EST Diagnosis: Fracture of [...] Diagnosis: Low back pain[ICD10: M54.5] Alexandra KUNZ [facility] CPT-4: 72799 12/06/2017 ([id number]) OFFICE/OUTPATIENT VISIT EST Diagnosis: Cellulitis of right upper limb[ICD10: L03.113] Diagnosis: Allergy status to other antibiotic agents status[ICD10: Z88.1] Vandana CARROLL [facility] CPT-4: 94639 12/01/2017 ([id number]) OFFICE/OUTPATIENT VISIT EST Diagnosis: Cellulitis of right upper limb[ICD10: L03.113] Diagnosis: Allergy status to other antibiotic agents status[ICD10: Z88.1] Vandana CARROLL [facility] CPT-4: 79510 11/30/2017 ([id number]) OFFICE/OUTPATIENT VISIT EST Diagnosis: Cellulitis of right upper limb[ICD10: L03.113] Vandana CARROLL DO [facility] CPT-4: 93087 11/29/2017 ([id number]) OFFICE/OUTPATIENT VISIT EST Diagnosis: Cellulitis of right upper limb[ICD10: L03.113] Vandana CARROLL DO [facility] CPT-4: 15765 11/28/2017 ([id number]) OFFICE/OUTPATIENT VISIT EST Diagnosis: Other intervertebral disc degeneration, lumbar region[ICD10: M51.36] Diagnosis: Other retention of urine[ICD10: R33.8] Diagnosis: Primary insomnia[ICD10: F51.01] Diagnosis: Other spondylosis, site unspecified[ICD10: M47.899] Alexandra CARROLL DO [facility] CPT-4: 16498 11/17/2017 ([id number]) OFFICE/OUTPATIENT VISIT EST Diagnosis: Radiculopathy, lumbosacral region[ICD10: M54.17] Diagnosis: Other retention of urine[ICD10: R33.8] Diagnosis: Urinary tract infection, site not specified[ICD10: N39.0] Vandana CARROLL DO [facility] CPT-4: 63740 10/10/2017 ([id number]) PREV VISIT EST AGE 40-64 Diagnosis: Encounter for general adult medical examination without abnormal findings[ICD10: Z00.00] Diagnosis: Other intervertebral disc degeneration, lumbar region[ICD10: M51.36] Diagnosis: Hypothyroidism, unspecified[ICD10: E03.9] Diagnosis: Mixed hyperlipidemia[ICD10: E78.2] Alexandra CARROLL DO [facility] CPT-4: 57026 06/22/2017 ([id number]) OFFICE/OUTPATIENT VISIT EST Diagnosis: URI, ACUTE[ICD10: J06.9] Alexandra SHAFFERLINE Ty ROMAN [facility] CPT-4: 88254 03/28/2017 OFFICE/OUTPATIENT VISIT EST Diagnosis: Acute sinusitis, unspecified[ICD10: J01.90] Vandana CARROLL DO [facility] CPT-4: 13803 02/16/2017 ([id number]) OFFICE/OUTPATIENT VISIT EST Diagnosis: Migraine, unspecified, not intractable, without status migrainosus[ICD10: G43.909] Alexandra CARROLL DO [facility] CPT - 4: 28296 11/02/2016 ([id number]) OFFICE/OUTPATIENT VISIT EST Diagnosis: Pain in thoracic spine[ICD10: M54.6] Diagnosis: Chondrocostal junction syndrome [Tietze][ICD10: M94.0] Alexandra CARROLL DO [facility] CPT-4: 03906 09/06/2016 OFFICE/OUTPATIENT VISIT EST Diagnosis: Acute sinusitis, unspecified[ICD10: J01.90] Vidya Manuel ALEXANDRA CARROLL [place] [facility] CPT-4: 52888 08/16/2016 ([id number]) OFFICE/OUTPATIENT VISIT EST Diagnosis: Primary insomnia[ICD10: F51.01] Diagnosis: Cramp and spasm[ICD10: R25.2] Diagnosis: Major depressive disorder, single episode, mild[ICD10: F32.0] Alexandra CARROLL [facility] CPT-4: 94194 07/19/2016 ([id number]) OFFICE/OUTPATIENT VISIT EST Diagnosis: Obstructive sleep apnea (adult) (pediatric)[ICD10: G47.33] Diagnosis: Other fatigue[ICD10: R53.83] Diagnosis: Allergic rhinitis due to pollen[ICD10: J30.1] Diagnosis: Headache[ICD10: R51] Alexandra CARROLL [place] [facility] CPT-4: 96783 07/06/2016 ([id number]) OFFICE/OUTPATIENT VISIT EST Diagnosis: Acute recurrent sinusitis, unspecified[ICD10: J01.91] Diagnosis: Allergic rhinitis due to pollen[ICD10: J30.1] Alexandra CARROLL [place] [facility] CPT-4: 18388 06/15/2016 ([id number]) OFFICE/OUTPATIENT VISIT EST Diagnosis: Migraine, unspecified, not intractable, without status migrainosus[ICD10: G43.909] Diagnosis: Allergic rhinitis, unspecified[ICD10: J30.9] Nae CARROLL [facility] CPT-4: 82966 04/09/2016 ([id number]) OFFICE/OUTPATIENT VISIT EST Diagnosis: Hypothyroidism, unspecified[ICD10: E03.9] Diagnosis: Other fatigue[ICD10: R53.83] Diagnosis: Mixed hyperlipidemia[ICD10: E78.2] Diagnosis: Major depressive disorder, single episode, mild[ICD10: F32.0] Alexandra CARROLL [facility] CPT-4: 85419 03/17/2016 ([id number]) OFFICE/OUTPATIENT VISIT EST Diagnosis: Insomnia, unspecified[ICD10: G47.00] Diagnosis: Encounter for therapeutic drug level monitoring[ICD10: Z51.81] Nae CARROLL [facility] CPT-4: 93850 11/13/2015 ([id number]) OFFICE/OUTPATIENT VISIT EST Diagnosis: Hematuria, unspecified[ICD10: R31.9] Alexandra CARROLL [facility] CPT-4: 34066 05/05/2015 ([id number]) OFFICE/OUTPATIENT VISIT EST Diagnosis: Other intervertebral disc degeneration, lumbar region[ICD10: M51.36] Diagnosis: Radiculopathy, lumbosacral region[ICD10: M54.17] Alexandra CARROLL [facility] CPT-4: 55896 04/22/2015 ([id number]) OFFICE/OUTPATIENT VISIT EST Diagnosis: Low back pain[ICD10: M54.5] Diagnosis: Recurrent and persistent hematuria with unspecified morphologic changes[ICD10: N02.9] Alexandra CARROLL DO [facility] CPT-4: 04932 03/24/2015 ([id number]) OFFICE/OUTPATIENT VISIT EST Diagnosis: Acute sinusitis, unspecified[ICD10: J01.90] Diagnosis: Headache[ICD10: R51] Diagnosis: Retention of urine, unspecified[ICD10: R33.9] Diagnosis: Hypothyroidism, unspecified[ICD10: E03.9] Alexandra CARROLL [facility] CPT-4: 91117 02/27/2015 ([id number]) PREV VISIT EST AGE 40-64 Diagnosis: ROUTINE MEDICAL EXAM[ICD9: V70.0] Diagnosis: HYPOTHYROIDISM[ICD9: 244.9] Diagnosis: HYPERLIPIDEMIA NEC/NOS[ICD9: 272.4] Alexandra Danelawandavioletta TANIARODRIGUEZ CORDOBA SAri VELANDVIOLETTA SALGUERO [facility] CPT-4: 64171 06/13/2014 ([id number]) OFFICE/OUTPATIENT VISIT EST Diagnosis: CEPHALGIA[ICD9: 784.0] Diagnosis: Nausea[ICD9: 787.02] Shalini Romeo VELANDER [facility] CPT-4: 47531 04/18/2014 ([id number]) OFFICE/OUTPATIENT VISIT EST Diagnosis: INSOMNIA NOS[ICD9: 780.52] Diagnosis: Complicated grieving[ICD9: 309.0] Alexandra Danejames MARINPAM E SAri VELANDER [facility] CPT-4: 86652 12/05/2013 ([id number]) OFFICE/OUTPATIENT VISIT EST Diagnosis: Muscle twitch[ICD9: 781.0] Diagnosis: ALLERGIC RHINITIS[ICD9: 477.9] Alexandra Velalawandavioletta SHAFFERALEXANDRA Macy VELANDVIOLETTA [facility] CPT-4: 23317 06/05/2013 ([id number]) OFFICE/OUTPATIENT VISIT EST Diagnosis: DEPRESSIVE DISORDER NEC[ICD9: 311] Alexandradanielle QUINTERO S. DANENDER [facility] CPT-4: 90210 05/22/2013 OFFICE/OUTPATIENT VISIT EST Diagnosis: Shingles[ICD9: 053.9] Alexandra Danejames FORDE MacyAri DANENDER [place] [facility] CPT-4: 32835 04/05/2013 ([id number]) OFFICE/OUTPATIENT VISIT EST Diagnosis: DEPRESSIVE DISORDER NEC[ICD9: 311] Alexandra QUINTERO S. DANENDER DO [employer] [facility] [facility] CPT-4: 02822 03/26/2013 ([id number]) OFFICE/OUTPATIENT VISIT EST Diagnosis: Complicated grieving[ICD9: 309.0] Alexandra Danelawandavioletta SHAFFERLORI Louise S. DANENDER [facility] CPT-4: 72114 03/06/2013 ([id number]) OFFICE/OUTPATIENT VISIT EST Diagnosis: CEPHALGIA, TENSION[ICD9: 307.81] Diagnosis: MIGRAINE NOS/NOT INTRCBL[ICD9: 346.90] Diagnosis: Cervicalgia[ICD9: 723.1] Alexandra PLATT IZABELLA [facility] CPT-4: 46368 11/29/2012 ([id number]) OFFICE/OUTPATIENT VISIT EST Diagnosis: Jaw pain[ICD9: 784.92] Diagnosis: Shoulder pain[ICD9: 719.41] Diagnosis: Family history of premature coronary artery disease[ICD9: V17.3] Alexandra CARROLL [facility] CPT-4: 24813 09/26/2012 ([id number]) OFFICE/OUTPATIENT VISIT EST Diagnosis: ABDOMINAL PAIN[ICD9: 789.00] Diagnosis: Constipation[ICD9: 564.00] Diagnosis: Hematuria[ICD9: 599.70] Alexandra [facility] CPT-4: 30308 07/11/2012 ([id number]) OFFICE/OUTPATIENT VISIT EST Diagnosis: ANEMIA NOS[ICD9: 285.9] Alexandra VELAND [facility] CPT-4: 25988 02/17/2012 ([id number]) PREV VISIT EST AGE 40-64 Diagnosis: ROUTINE MEDICAL EXAM[ICD9: V70.0] Diagnosis: HYPOTHYROIDISM[ICD9: 244.9] Diagnosis: HYPERLIPIDEMIA NEC/NOS[ICD9: 272.4] Diagnosis: Obstructive sleep apnea[ICD9: 327.23] Alexandra MARINGWENDOLYN JANEL Ty CARROLL [facility] CPT-4: 90138 02/02/2012 ([id number]) OFFICE/OUTPATIENT VISIT EST Diagnosis: URINARY TRACT INFECTION[ICD9: 599.0] Alexandra VELANDVIOLETTA [facility] CPT-4: 08472 08/27/2011 ([id number]) OFFICE/OUTPATIENT VISIT EST Diagnosis: URINARY TRACT INFECTION[ICD9: 599.0] Diagnosis: ACUTE CYSTITIS[ICD9: 595.0] Alexandra SHAFFERLINE Ty O RENDER [facility] CPT-4: 08445 08/17/2011 OFFICE/OUTPATIENT VISIT EST Diagnosis: URINARY TRACT INFECTION[ICD9: 599.0] Steph [facility]O [facility]: 38481 10/14/2010 Plan of Care Planned Activity Notes [...] injection a week pre-op and dr. 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 ICD-9 : 692.6 ICD-10 : L25.5 05/14/2019 Patient Education: Levaquin- [employer] Coupon [id number] [email or web address] Completed 05/14/2019 Visit Diagnosis Plan: Ventral hernia Discussion: See s urgery for repair Discussed signs of incarceration or strangulation then is to report to ER ICD-9 : 553.20 ICD-10 : K43.9 04/10/2019 Appointment: Alex[facility] [phone] [facility] [place] left second message 04/10/19 at 10:20 ACUTE ILLNE SS 04/10/2019 Care Plan: Referral Order SNOMED-CT : 30 [id number] Pending 04/10/2019 Visit Diagnosis Plan: Insomnia Discussion: [...] D47.3 02/14/2019 Appointment: Alexandra Carroll [facility]el[facility] [phone] [facility] [place] FOLLOW UP 02/14/2019 Appointment: Alexandra Carroll WPtel: [address] [place], [place] [id number] [place] CANCELED 02/12/2019 Visit Diagnosis Plan: Onychomycosis Discussion: Send n ail for culture ICD-9 : 110.1 ICD-10 : B35.1 01/16/2019 Visit Diagnosis Plan: Small bowel obstruction Discussi on: S/P surgery in September with postop complications of wound dehiscence ICD-9 : 560.9 ICD-10 : K56.609 01/16/2019 Appointment: Alexandra Carroll WPtel: [address] [place], [place] [id number] MEDICATION REVIEW 01/16/2019 Appointment: Alexandra Carroll WPtel: [address] [place], [place] [id number] [place] CANCELED 12/12/2018 Visit Diagnosis Plan: Diarrhea, unspecified Discussion : Due for updated colonoscopy ICD-9 : 787.91 ICD-10 : R19.7 09/18/2018 Visit Diagnosis Plan: Radiculopathy, lumbosacral regio n Discussion: Had left SI joint injection by Dr. Baig about 2 weeks ago and has fwup with him ICD-9 : 724.4 ICD-10 : M54.17 09/18/2018 Appointment: Alexandra Carroll WPtel: [address] [place], [place] [phone] PATIENT CONSULT 15 09/18/2018 Care Plan: Referral Order SNOMED-CT : 30 [id number] Pending 09/18/2018 Visit Diagnosis Plan: Other intervertebral [...] : M46.1 08/10/2018 Appointment: Alexandra Carroll WPtel: [address] [place], [place] [phone] [place] MEDICATION REVIEW 08/10/2018 Care Plan: Referral Order SNOMED-CT : 30 9055557 Pending 08/10/2018 Appointment: Alexandra Carroll WPtel: [address] [place], [place] [phone] [place] CANCELED 04/17/2018 Visit Diagnosis Plan: Fracture [...] : M54.2 03/27/2018 Appointment: Alexandra Carroll WPtel: [address] [place], [place] [phone] [place] FOLLOW UP 03/27/2018 Visit Diagnosis Plan: [...] : S42.002D 02/23/2018 Appointment: Alexandra Carroll WPtel: [address] [place] [address] US FOLLOW UP 02/23/2018 Patient Education: gabapentin- [employer]RX Coupon [phone] [email or web address] Completed 02/23/2018 Visit Diagnosis Plan: Fracture of unspec ified part of left clavicle, subsequent encounter for fracture with routine healing Discussion: Hold on PT and do home stretches Trial of gabapentin Recheck 4 weeks ICD-9 : V54.11 ICD-10 : S42.002D 01/24/2018 Appointment: Alexandra Carroll WPtel: [address] [place] [address] US FOLLOW UP 01/24/2018 Visit Diagnosis Plan: Migraine, unspecif ied, not intractable, without status migrainosus Discussion: Toradol and phenergan given ICD-9 : 346.90 ICD-10 : G43.909 01/17/2018 Appointment: Alexandra Carroll WPtel: [address] [place] [address] ACUTE ILLNESS 01/17/2018 Visit Diagnosis Plan: Retention [...] : M51.36 12/29/2017 Appointment: Alexandra Carroll WPtel: [address] [place] [address] ACUTE ILLNESS 12/29/2017 Care Plan: US EXAM PELVIC COMPLETE LOINC : 22924-4 Pending 12/29/2017 Care Plan: ECHO EXAM OF ABDOMEN LOINC : 00915-1 Pending 12/29/2017 Care Plan: Referral Order SNOMED-CT : 30 0804424 Pending 12/29/2017 Visit Diagnosis Plan: Fracture of unspec ified part of left clavicle, subsequent encounter for fracture with routine healing Discussion: Start PT in another 7-14 days Off work for the rest of this week then may return to part-time work on 12/12/17 Fwup in 4 weeks ICD-9 : V54.11 ICD-10 : S42.002D 12/06/2017 Appointment: Alexandra Carroll WPtel: [phone] [facility] [place] FOLLOW UP 12/06/2017 Patient Education: Patient [...] ICD-10 : L03.113 12/01/2017 Appointment: Vandana Crowe [address] [place], [place] [phone] FOLLOW UP 12/01/2017 Patient Education: Patient Medication [...] : Z88.1 11/30/2017 Appointment: Vandana Crowe [address] 11/30/2017 Patient Education: Patient Medication Summary Completed [...] ICD-10 : L03.113 11/29/2017 Appointment: Vandana Crowe [address] [place] [address] FOLLOW UP 11/29/2017 Patient Education: Patient Medication [...] : L03.113 11/28/2017 Appointment: Vandana Crowe [address] [facility] ACUTE ILLNESS 11/28/2017 Patient Education: Patient Medication [...] M51.36 11/17/2017 Appointment: Alexandra Carroll [facility]Ptel[facility] [phone] [facility] MEDICATION REVIEW 11/17/2017 Patient Education: Patient Medication Summary Completed 11/17/2017 Care Plan: Referral Order SNOMED-CT : 30 0110613 Pending 11/17/2017 Patient Education: Patient Medication Summary Completed 10/12/2017 Care Plan: MRI LUMBAR SPINE W/O DYE LOIN C : 42424-9 Pending 10/12/2017 Care Plan: X-RAY EXAM L-S SPINE 2/3 VWS LOINC : 74589-0 Pending 10/11/2017 Visit Diagnosis Plan: Other retention [...] ICD-10 : M54.17 10/10/2017 Appointment: Vandana Crowe [address] [place] [address] ACUTE ILLNESS 10/10/2017 Patient Education: Patient Medication Summary Completed 10/10/2017 Appointment: Vandana Crowe [address] [place] [address] ACUTE ILLNESS 08/01/2017 Visit Diagnosis Plan: Other intervertebral disc degene ration, lumbar region Discussion: Core strengtheing and inversion table and if worsening will need updated MRI ICD-9 : 722.52 ICD-10 : M51.36 06/22/2017 Visit Diagnosis Plan: Encounter for [facility] adult medical examination without abnormal findings Discussion: Lab dis ussed Follow Up: 6 months ICD-9 : V70.0 ICD-10 : Z00.00 06/22/2017 Appointment: Alexandra Carroll WPtel: [phone] Annual Well Visit 06/22/2017 Patient Education: Patient Medication Summary Completed 06/22/2017 Patient Education: Patient Medication Summary Completed 06/16/2017 Care Plan: COMPREHEN METABOLIC [place]EL [place] : 49462-2 Pending 06/16/2017 Care Plan: ASSAY THYROID STIM HORMONE Pen ding 06/16/2017 Care Plan: ASSAY OF FREE THYROXINE Pendin g 06/16/2017 Care Plan: LIPID PANEL LOINC : 99598-4 Pending 06/16/2017 Care Plan: CBC Pending 06/16/2017 [...] : J06.9 03/28/2017 Appointment: Alexandra Carroll WPtel: [address] [place] [address] ACUTE ILLNESS 03/28/2017 Patient Education: Patient Medication Summary Completed 03/28/2017 Visit Diagnosis Plan: Acute sinusitis, unspecified Dis cussion: cefdinir and medrol dose pack prescribed to be taken as directed. tylenol/ibuprofen as needed. educated on importance of taking singulair or zyrtec daily to prevent worsening symptoms. keep hydrated. ICD-9 : 461.9 ICD-10 : J01.90 02/16/2017 Appointment: Vandana Crowe [address] [place] [address] ACUTE ILLNESS 02/16/2017 Patient Education: Patient Medication Summary Completed 02/16/2017 Appointment: Alexandra Carroll WPtel: [address] [place] [address] [place] INJECTION 11/02/2016 Patient Education: Patient Medication Summary Completed 11/02/2016 Visit Diagnosis Plan: Pain in thoracic spine Discussio n: Increase flexeril to 10mg po BID Add Mobic 15mg po daily Towel stretch May see chiropractor to adjust ribs Notify if persists or worsening ICD-9 : 724.1 ICD-10 : M54.6 09/06/2016 Appointment: Alexandra Carroll WPtel: [address] [place] [address] ACUTE ILLNESS 09/06/2016 Patient Education: Patient Medication Summary Completed 09/06/2016 Visit Plan: Due to hx, ERx Cefdinir and Prednisone (discussed risks for both) Given bottle for nasal saline rinses Tylenol/Ibuprofen prn pain/fever Fluids/rest Discussed s/s of worsening, RTC if no improvement 08/16/2016 Appointment: Vidya Manuel WPtel: [address] [place] [address] ACUTE ILLNESS 08/16/2016 Patient Education: Patient Medication [...] : F32.0 07/19/2016 Appointment: Alexandra Carroll WPtel: [address] [place], [place] [phone] 07/15 confirmed`sl FOLLOW UP 07/19/2016 Patient Education: [...] : J30.1 07/06/2016 Appointment: Alexandra Carroll WPtel: [address] [place], [place] [phone] 07/05 confirmed-sp FOLLOW UP 07/06/2016 Patient Education: [...] : J01.91 06/15/2016 Appointment: Alexandra Carroll WPtel: [address] [place], [place] [phone] 06/14 lm ~sl ACUTE ILLNESS 06/15/2016 Patient Education: Patient Medication Summary Completed 06/15/2016 Visit Diagnosis Plan: Migraine, unspecif ied, not intractable, without status migrainosus Discussion: Injection as above Drink ple nty of water No driving x 6 hours Rest No OTC nsaids today Follow up PRN Refill called of claritin-d ICD-9 : 346.90 ICD-10 : G43.909 04/09/2016 Appointment: Nae Mckay [address] [place] [address] ACUTE ILLNESS 04/09/2016 Patient Education: Patient Medication [...] : E78.2 03/17/2016 Appointment: Alexandra Carroll WPtel: [address] [place], [place] [phone] 03/16 nvm~sl 03/17 confirmed`sl FOLLOW UP 0 03/17/2016 Patient Education: Patient Medication Summary Completed 03/17/2016 Appointment: Alexandra Carroll WPtel: [facility] [place] 03/11 lm~sl 03/15lm `sl 03/15 confirmed`sl FOLLOW U P 03/15/2016 Visit Plan: Discussed labeled indication s for benzos. Since xanax is not labeled for sleep and she has never tried anything else, encouraged her to trial restoril(another benzo) since it is labeled for sleep. She agrees with this trial. Rx called to [facility] after cost comparison which is nearly the same robert. If working well, continue the [id number] office visits. Call if not working well, and will restart xanax at for sleep. 11/13/2015 Appointment: Nae Mckay [address] [place], [place] [id number] 11/11 confirmed~ FOLLOW UP 11/13/2015 Patient Education: Patient Medication Summary Completed 11/13/2015 Appointment: Alexandra Carroll WPtel: [address] [place], [place] [phone] Suture Removal 06/23/2015 Patient Education: Patient Medication Summary Completed 06/23/2015 Visit Plan: Removal of lesion above usin g 3-0 punch biopsy Return in 10 days for suture removal 06/12/2015 Appointment: Alexandra Carroll WPtel: [address] [place], [place] [phone] 06/10 lm ~ ACUTE ILLNESS 06/12/2015 Patient Education: Patient Medication Summary Completed 06/12/2015 Referral: Soy Garcia WPtel: [address] [id number] Schedule patient around lunch time and 3 weeks from 04/22/2015 ~ Spoke with Kiesha at Dr. Sandoval Office and 04/24/15 and scheduled the patient ~ 04/24/15 Patient is informed~ 06/03 Patient canceled the appointment ~ Patient did not show up for scheduled appointment-sp Appoint ment Requested 05/21/2015 Appointment: Alexandra Carroll WPtel: [phone] [facility] [facility] 05/05/2015 Patient Education: Patient Medication Summary Completed 05/05/2015 Visit Plan: Starts PT today Schedule wit h Dr. Garcia for epidural CT abdomen/pelvis results discussed Sees KENO CLERK in April and will get checked then 04/22/2015 Appointment: Alexandra Carroll WPtel: [address] [place] [address] 04/21 confirmed~lb ACUTE ILLNESS 04/22/2015 Patient Education: Patient Medication Summary Completed 04/22/2015 Referral: Lincoln Hernandez WPtel: [address] [place] [address] Referral Initiated 04/10/2015 Patient Education: Patient Medication Summary Completed 04/09/2015 Visit Plan: Start with lumosacral spine x-ray--will likely need MRI of L/S spine x-ray Needs urology--has had to have bladder stretched in past Tivorbex 03/24/2015 Appointment: Alexandra Carroll WPtel: [address] [place] [address] 03/21/15 appt confirmed cn ACUTE ILLNESS 03/24 Patient Education: Patient Medication Summary Completed 03/24/2015 Visit Plan: Saline nasal flushes prn. Ty lenol/Motrin prn headache. Notify if persists/symptoms worsening. Cefuroxime to cover both sinuses and UTI Culture urine Check lab 02/27/2015 Appointment: Alexandra Carroll WPtel: [address] [place] [address] 02/26/15 vm to confirm and need new insu meri on file is inactive cn....02/27/15 appt confirmed cn ACUTE ILLNESS 015 Patient Education: Patient Medication Summary Completed 02/27/2015 Visit Plan: Lab discussed Stop simvastat in Check lipids in 6mos Continue all other meds at current dose Had Pap and Mammo 3 weeks ago 06/13/2014 Appointment: Alexandra Carroll WPtel: [address] [place] [address] Annual Well Visit 06/13/2014 Patient Education: Patient Medication Summary Completed 06/13/2014 Appointment: Shalini Walters WPtel: [address] [place] [address] ACUTE ILLNESS 04/18/2014 Patient Education: Patient Medication Summary Completed 04/18/2014 Visit Plan: Check lab in May then fwup Can try decreasing xanax to 1mg q HS with melatonin 5-10mg q HS 12/05/2013 Appointment: Alexandra Carroll WPtel: [address] [place], [place] [phone] 12/04 FOLLOW UP 12/05/2013 Patient Education: Patient Medication Summary Completed 12/05/2013 Appointment: Alexandra Carroll WPtel: [address] [place], [place] [phone] FOLLOW UP 06/05/2013 Patient Education: Patient Medication Summary Completed 06/05/2013 Appointment: Alexandra Carroll WPtel: [address] [place], [place] [phone] FOLLOW UP 05/22/2013 Patient Education: Patient Medication Summary Completed 05/22/2013 Visit Plan: Zovirax for 2wks Notify if p ain worsens or if persists 04/05/2013 Appointment: Alexandra Carroll WPtel: [address] [place] [address] ACUTE ILLNESS 04/05/2013 Patient Education: Patient Medication Summary Completed 04/05/2013 Visit Plan: Keep Wellbutrin at current d ose Pt did see for counseling 03/26/2013 Appointment: Alexandra Carroll WPtel: [address] [place] [address] ACUTE ILLNESS 03/26/2013 Patient Education: Patient Medication Summary Completed 03/26/2013 Visit Plan: Continue citalopram at curre nt dose Increase xanax to 1-2mg q HS for sleep Add Wellbutrin Sr 100mg q AM Start Counseling 03/06/2013 Appointment: Alexandra Carroll WPtel: [address] [place] [address] ACUTE ILLNESS 03/06/2013 Patient Education: Patient Medication Summary Completed 03/06/2013 Appointment: Alexandra Carroll: [address] [place] [address] ACUTE ILLNESS 11/29/2012 Patient Education: Patient Medication Summary Completed 11/29/2012 Appointment: Alexandra Carroll WPtel: [address] [place] [address] ACUTE ILLNESS 09/26/2012 Patient Education: Patient Medication Summary Completed 09/26/2012 Appointment: Alexandra Carroll WPtel: [address] [place] [address] ACUTE ILLNESS 07/11/2012 Patient Education: Patient Medication Summary Completed 07/11/2012 Appointment: Alexandra Carroll WPtel: [address] [place] [address] [place] LAB 02/17/2012 Patient Education: Patient Medication Summary Completed 02/17/2012 Visit Plan: Check fasting lab Start annie y ca with Vit D Cont CPAP Mammo up-to-date Hemoccult card given 02/02/2012 Appointment: Alexandra Carroll WPtel: [address] [place] [address] PHYSICAL 02/02/2012 Patient Education: Patient Medication Summary Completed 02/02/2012 Appointment: Alexandra Carroll WPtel: [address] [place] [address] UA 08/27/2011 Patient Education: Patient Medication Summary Completed 08/27/2011 Visit Plan: Levaquin and Diflucan for 1w k Then cipro QOD for prophylaxis 08/17/2011 Appointment: Alexandra Carroll WPtel: [address] [place] [address] FOLLOW UP 08/17/2011 Patient Education: Patient Medication Summary Completed 08/17/2011 Appointment: Alexandra Carroll WPtel: [address] [place] [address] UA 12/28/2010 Patient Education: Patient Medication Summary Completed 12/28/2010 Appointment: Alexandra Carroll WPtel: [address] [place], [place] [phone] UA 11/09/2010 Patient Education: Patient Medication Summary Completed 11/09/2010 Appointment: Alexandra Carroll WPtel: [phone] [facility] UA 10/29/2010 Patient Education: Patient Medication Summary Completed 10/29/2010 Appointment: Steph Bowen WPtel: [address] [place], [place] [phone] ACUTE ILLNESS 10/14/2010 Patient Education: Patient Medication Summary Completed 10/14/2010 Referral: Florian Baig WPtel: [facility] [address] [place] Referral Initiated Referral: Paulo Albert WPtel: [id number] [place] Referral Appointment Requested Referral: Luis Enrique Jasso WPtel: [facility] [address] [place] Referral Appointment Requested Referral: Florian Baig WPtel: [facility] [address] [place] Referral Appointment Requested Referral: Caleb Glaser WPtel: [address] [place] Referral Appointment Requested Referral: Florian Baig WPtel: [facility] [place] [address] [id number] [place] Referral Initiated Referral: Florian Baig WPtel: [facility] [place] [address] [id number] [place] Referral Appointment Requested Instructions Comment . [...] agrees with this trial. Rx called to [facility] after cost comparison which is nearly the same robert. If working well, continue the [id number] office visits. Call if not working well, and will restart xanax at HS for sleep. . Removal of lesion above using 3-0 punc h biopsy Return in 10 days for suture removal . Starts PT today Schedule with Dr. Garcia for epidural CT abdomen/pelvis results discussed Sees KENO CLERK in April and will get checked then [...]
--- OUTSIDE RECORDS SUMMARY | 2019-09-02 00:26 | XMS REPORT | CCD ---
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 Name Role Phone Alexandra Carroll D.O., PP Unavailable CCM Unavailable Summary Purpose Interface Exchange Insurance Providers Payer name Policy type / Coverage type Covered democrat ID Effective Begin Date Effective End Date WPS MEDICARE PART B [place] Medicare Part B [id number] 2019 Unknown [employer] [place] Medicare Part B [id number] Unknown Family History Family History data not found Social History Social History Element Codes Description Effective Dates Tobacco history SNOMED CT: 899986597 Nonsmoker 10/14/2010 Allergies, Adverse Reactions, Alerts Substance Reaction Codes Entered Date Inactivated Date Status MORPHINE SULFATE RxNorm: 9631120 10/14/2010 No Inactive Da te Active CEPHALOSPORINS [...] Date Active Levaquin 500 mg tablet RxNorm: 731141 1 Tablet(s) Oral QD 05/14/2019 05/21/2019 Active Xanax 1 mg tablet RxNorm: 067711 1-2 Tablet(s) Oral e very night at bedtime as needed for sleep 05/03/2019 06/01/2019 Active Generic For:LAVELLE AX 1MG 10/11/2016 11:15:13 AM cyclobenzaprine 10 mg tablet RxNorm: 040758 1 Tablet(s) Oral three times a day as needed for muscle spasm 02/12/2019 02/12/2019 Inactive Xanax 1 mg tablet RxNorm: 523239 1-2 Tablet(s) Oral e very night at bedtime as needed for sleep 02/09/2019 03/10/2019 Inactive Generic For:LAVELLE AX 1MG 10/11/2016 11:15:13 AM Xanax 1 mg tablet RxNorm: 220911 1-2 Tablet(s) Oral e very night at bedtime as needed for sleep 01/22/2019 02/08/2019 Inactive Generic For:LAVELLE AX 1MG 10/11/2016 11:15:13 AM Celexa 40 mg tablet RxNorm: 557144 1 Tablet(s) Oral QD 01/17/2019 Active - First Attempt Ref: [id number] Xanax 1 mg tablet RxNorm: 296266 1 Tablet(s) Oral every night a t bedtime 01/08/2019 01/21/2019 Inactive levothyroxine 88 mcg tablet RxNorm: 739175 TAKE 1 TABLET BY NINA TH DAILY 12/19/2018 06/16/2019 Active - First Attempt Ref: [id number] Xanax 1 mg tablet RxNorm: 980174 1 Tablet(s) Oral every night a t bedtime 12/06/2018 01/05/2019 Inactive Singulair 10 mg tablet RxNorm: 836586 1 Tablet(s) Oral every ni ght at bedtime 11/23/2018 11/17/2019 Active - First Attempt Ref: [id number] Celexa 40 mg tablet RxNorm: 864246 1 Tablet(s) Oral 11/23/20182018 Inactive - First Attempt Ref: [id number] cyclobenzaprine 10 mg tablet RxNorm: 044408 1 Tablet(s) Oral three times a day as needed for muscle spasm 11/23/2018 02/11/2019 Inactive Xanax 1 mg tablet RxNorm: 288863 1 Tablet(s) PO QHS 11/06/20182018 Inactive Xanax 1 mg tablet RxNorm: 285447 1 Tablet(s) PO QHS 09/26/20182018 Inactive Singulair 10 mg tablet RxNorm: 088539 TAKE 1 TABLET BY MOUTH EVERY NIGHT AT BEDTIME 08/16/2018 11/22/2018 Inactive - First Attempt Ref: [id number] Xanax 1 mg tablet RxNorm: 312820 1 Tablet(s) PO QHS 08/01/20182018 Inactive levothyroxine 88 mcg tablet RxNorm: 480275 TAKE 1 TABLET BY NINA TH DAILY 07/31/2018 12/18/2018 Inactive - First Attempt Ref: [id number] Celexa 40 mg tablet RxNorm: 094551 TAKE 1 TABLET BY MOUTH DAILY 04/201811/22/2018 Inactive - First Attempt Ref: [id number] 54 bupropion HCl SR 100 mg tablet,12 hr sustained-release RxNor m: 941574 1 Tablet(s) PO BID 07/12/2018 07/06/2019 Active - Ref: [id number] 7 Claritin-D 24 Hour 10 mg-240 mg tablet,extended release RxNo rm: 8619774 1 Tablet(s) PO QD 06/29/2018 2018 Inactive Claritin-D 24 Hour 10 mg-240 mg tablet,extended release RxNo rm: 1697992 1 Tablet(s) PO QD 06/29/2018 2018 Inactive Xanax 1 mg tablet RxNorm: 666960 1-2 Tablet(s) PO QHS as needed for sleep 05/26/2018 06/23/2018 Inactive Generic For:XANAX 1M G 10/11/2016 11:15:13 AM Xanax 1 mg tablet RxNorm: 875438 1-2 Tablet(s) PO QHS as needed for sleep 03/28/2018 05/25/2018 Inactive Generic For:XANAX 1M G 10/11/2016 11:15:13 AM Macrobid 100 mg capsule RxNorm: 777722 1 Capsule(s) PO BID 03/27/19 19 03/31/2018 Inactive gabapentin 300 mg capsule RxNorm: 754680 1 Capsule(s) PO QHS 201703/26/2018 Inactive Claritin-D 24 Hour 10 mg-240 mg tablet,extended release RxNo rm: 0677020 1 Tablet(s) PO QD 01/26/2018 02/24/2018 Inactive gabapentin 100 mg capsule RxNorm: 190687 1 Capsule(s) P O QHS for 1 week then 2 po q HS for 2 weeks then 3 po q HS 01/24/2018 03/26/2018 Inactive Xanax 1 mg tablet RxNorm: 154168 1-2 Tablet(s) PO QHS as needed for sleep 01/24/2018 03/24/2018 Inactive Generic For:XANAX 1M G 10/11/2016 11:15:13 AM prednisone 20 mg tablet RxNorm: 822505 1 Tablet(s) PO T ID for 3 days then 1 po BID for 3 days then one daily for 3 days 12/29/2017 03/26/2018 Inactiv e prednisone 20 mg tablet RxNorm: 728424 3 Tablet(s) PO T ID for 3 days then 1 po BID for 3 days then one daily for 3 days 12/29/2017 12/29/2017 Inactiv e Macrobid 100 mg capsule RxNorm: 626385 1 Capsule(s) PO BID 12/30/19 18 01/02/2018 Inactive Xanax 1 mg tablet RxNorm: 329993 1-2 Tablet(s) PO QHS as needed for sleep 12/28/2017 01/23/2018 Inactive Generic For:XANAX 1M G 10/11/2016 11:15:13 AM Medrol (Walter) 4 mg tablets in a dose pack RxNorm: 162134 Tablet(s) PO take as directed 12/01/2017 03/26/2018 Inactive Keflex 750 mg capsule RxNorm: 071413 1 Capsule(s) PO BID 12/01/2017 1 Inactive clindamycin HCl 300 mg capsule RxNorm: 059932 2 Capsule(s) PO TID 1 12/08/2017 Inactive Xanax 1 mg tablet RxNorm: 603602 1-2 Tablet(s) PO QHS as needed for sleep 11/28/2017 12/27/2017 Inactive Generic For:XANAX 1M G 10/11/2016 11:15:13 AM mupirocin 2 % topical ointment RxNorm: 427561 1 Application OTIC BI D 11/28/2017 08/09/2018 Inactive Xanax 1 mg tablet RxNorm: 620106 1-2 Tablet(s) PO QHS as needed for sleep 10/27/2017 11/25/2017 Inactive Generic For:XANAX 1M G 10/11/2016 11:15:13 AM Macrobid 100 mg capsule RxNorm: 311858 1 Capsule(s) PO BID 10/11/19 18 10/16/2017 Inactive Medrol (Walter) 4 mg tablets in a dose pack RxNorm: 169798 Tablet(s) PO take as directed 10/10/2017 11/16/2017 Inactive Xanax 1 mg tablet RxNorm: 858848 1-2 Tablet(s) PO QHS as needed for sleep 09/28/2017 10/26/2017 Inactive Generic For:XANAX 1M G 10/11/2016 11:15:13 AM Xanax 1 mg tablet RxNorm: 326058 1-2 Tablet(s) PO QHS as needed for sleep 08/30/2017 09/27/2017 Inactive Generic For:XANAX 1M G 10/11/2016 11:15:13 AM Xanax 1 mg tablet RxNorm: 688117 1-2 Tablet(s) PO QHS as needed for sleep 08/30/2017 08/29/2017 Inactive Generic For:XANAX 1M G 10/11/2016 11:15:13 AM Xanax 1 mg tablet RxNorm: 881186 1-2 Tablet(s) PO QHS as needed for sleep 08/01/2017 08/29/2017 Inactive Generic For:XANAX 1M G 10/11/2016 11:15:13 AM Xanax 1 mg tablet RxNorm: 618472 1-2 Tablet(s) PO QHS as needed for sleep 06/29/2017 2017 Inactive Generic For:XANAX 1M G 10/11/2016 11:15:13 AM Claritin-D 24 Hour 10 mg-240 mg tablet,extended release RxNo rm: 9884585 1 Tablet(s) PO QD 06/29/2017 2017 Inactive levothyroxine 88 mcg tablet RxNorm: 510670 1 Tablet(s) PO QD 201709/10/2017 Inactive Xanax 1 mg tablet RxNorm: 416268 1-2 Tablet(s) PO QHS as needed for sleep 05/26/2017 06/28/2017 Inactive Generic For:XANAX 1M G 10/11/2016 11:15:13 AM Claritin-D 24 Hour 10 mg-240 mg tablet,extended release RxNo rm: 1765687 1 Tablet(s) PO QD 05/26/2017 06/24/2017 Inactive bupropion HCl SR 100 mg tablet,12 hr sustained-release RxNor m: 618823 Tablet(s) Take 1 tablet by mouth two times daily 04/06/2017 12/31/2017 Inactive - Ref: [id number] Xanax 1 mg tablet RxNorm: 393678 1-2 Tablet(s) PO QHS as needed for sleep 03/24/2017 05/22/2017 Inactive Generic For:XANAX 1M G 10/11/2016 11:15:13 AM Medrol (Walter) 4 mg tablets in a dose pack RxNorm: 760464 Tablet(s) P O 02/16/2017 03/27/2017 Inactive Xanax 1 mg tablet RxNorm: 267238 Tablet(s) TAKE ONE T O TWO TABLETS BY MOUTH AT BEDTIME NEEDED 02/16/2017 03/17/2017 Inactive Generic For:XA NAX 1MG 10/11/2016 11:15:13 AM Claritin-D 24 Hour 10 mg-240 mg tablet,extended release RxNo rm: 6524971 1 Tablet(s) PO QD 02/16/2017 04/16/2017 Inactive cefdinir 300 mg capsule RxNorm: 796068 2 Capsule(s) PO QD 02/16/2017 02/25/2017 Inactive Celexa 40 mg tablet RxNorm: 287723 Tablet(s) Take 1 tablet by m outh daily 12/23/2016 09/18/2017 Inactive - Ref: [id number] Xanax 1 mg tablet RxNorm: 399007 Tablet(s) TAKE ONE T O TWO TABLETS BY MOUTH AT BEDTIME NEEDED 12/16/2016 01/14/2017 Inactive Generic For:XA NAX 1MG 10/11/2016 11:15:13 AM Xanax 1 mg tablet RxNorm: 809149 Tablet(s) TAKE ONE T O TWO TABLETS BY MOUTH AT BEDTIME NEEDED 11/18/2016 12/15/2016 Inactive Generic For:XA NAX 1MG 10/11/2016 11:15:13 AM Xanax 1 mg tablet RxNorm: 506839 TAKE ONE TO TWO TABL ETS BY MOUTH AT BEDTIME NEEDED 10/11/2016 11/17/2016 Inactive Generic For:XANA X 1MG 10/11/2016 11:15:13 AM Mobic 15 mg tablet RxNorm: 188370 1 Tablet(s) PO QD 09/06/20162016 Inactive Claritin-D 24 Hour 10 mg-240 mg tablet,extended release RxNo rm: 9611968 1 Tablet(s) PO QD 09/02/2016 11/30/2016 Inactive prednisone 20 mg tablet RxNorm: 812472 1 Tablet(s) PO T ID for 3 days then 1 po BID for 3 days then one daily for 3 days 08/16/2016 03/27/2017 Inactiv e cefdinir 300 mg capsule RxNorm: 794527 2 Capsule(s) PO QD 08/16/2016 09/05/2016 Inactive Xanax 1 mg tablet RxNorm: 101459 TAKE ONE TO TWO TABL ETS BY MOUTH AT BEDTIME NEEDED 08/05/2016 10/11/2016 Inactive Generic For:XANA X 1MG 08/05/2016 2:27:03 PM08/04/2016 4:15:22 PM Singulair 10 mg tablet RxNorm: 029255 1 Tablet(s) PO QHS 07/06/2016 0 09/03/2016 Inactive prednisone 20 mg tablet RxNorm: 019469 1 Tablet(s) PO T ID for 3 days then 1 po BID for 3 days then one daily for 3 days 06/15/2016 07/05/2016 Inactiv e Singulair 10 mg tablet RxNorm: 310784 1 Tablet(s) PO QHS 06/15/2016 0 07/05/2016 Inactive cefdinir 300 mg capsule RxNorm: 961418 2 Capsule(s) PO QD 06/15/2016 07/05/2016 Inactive Xanax 1 mg tablet RxNorm: 037015 1-2 Tablet(s) PO QHS 05/21/201610/2016 Inactive Claritin-D 24 Hour 10 mg-240 mg tablet,extended release RxNo rm: 3861331 1 Tablet(s) PO QD 04/09/2016 07/07/2016 Inactive Xanax 1 mg tablet RxNorm: 968132 1-2 Tablet(s) PO QHS 03/23/201604/29 Inactive levothyroxine 88 mcg tablet RxNorm: 514618 1 Tablet(s) PO QD 201606/13/2017 Inactive bupropion HCl SR 100 mg tablet,sustained-release RxNorm: 993 503 Take 1 tablet by mouth two times daily 03/15/2016 12/09/2016 Inactive - Ref: 20 [id number] Celexa 40 mg tablet RxNorm: 968476 Take 1 tablet by mouth daily 12/23/2016 Inactive - Ref: [id number] Xanax 1 mg tablet RxNorm: 255281 1-2 Tablet(s) PO QHS 02/17/201603/01 Inactive levothyroxine 88 mcg tablet RxNorm: 379496 1 Tablet(s) PO QD 201502/22/2016 Inactive Xanax 1 mg tablet RxNorm: 234036 1-2 Tablet(s) PO QHS 11/25/201511/29 Inactive levothyroxine 88 mcg tablet RxNorm: 242810 1 Tablet(s) PO QD 201511/24/2015 Inactive temazepam 30 mg capsule RxNorm: 292797 1 Capsule(s) PO QHS 11/13/19 16 11/24/2015 Inactive Xanax 1 mg tablet RxNorm: 791329 1-2 Tablet(s) PO QHS 09/15/201510/29 Inactive Celexa 40 mg tablet RxNorm: 755255 1 Tablet(s) PO QD 1 Tablet(s ) PO QD 09/10/2015 09/16/2015 Inactive bupropion HCl SR 100 mg tablet,sustained-release RxNorm: 993 503 1 Tablet(s) PO BID 09/10/2015 09/23/2015 Inactive Xanax 1 mg tablet RxNorm: 649083 1-2 Tablet(s) PO QHS 09/10/201508/28 Inactive Xanax 1 mg tablet RxNorm: 110862 1-2 Tablet(s) PO QHS 08/11/201508/28 Inactive cyclobenzaprine 10 mg tablet RxNorm: 974747 1 Tablet(s) PO TID prn spasm 07/09/2015 11/23/2018 Inactive Celexa 40 mg tablet RxNorm: 715757 1 Tablet(s) PO QD 06/06/201508/03 Inactive Xanax 1 mg tablet RxNorm: 908075 1-2 Tablet(s) PO QHS 06/04/201505/2015 Inactive levothyroxine 88 mcg tablet RxNorm: 040761 1 Tablet(s) PO QD 201511/23/2015 Inactive Ceftin 500 mg tablet RxNorm: 997727 1 Tablet(s) PO BID 05/05/2015 Inactive Ceftin 500 mg tablet RxNorm: 891028 1 Tablet(s) PO BID 05/05/201507/2015 Inactive meloxicam 15 mg tablet RxNorm: 571051 1 Tablet(s) PO QD 04/16/2015 Inactive meloxicam 15 mg tablet RxNorm: 854015 1 Tablet(s) PO QD 04/16/2015 Inactive diclofenac sodium 75 mg tablet,delayed release RxNorm: 37047 6 1 Tablet(s) PO BID 04/04/2015 04/15/2015 Inactive diclofenac sodium 75 mg tablet,delayed release RxNorm: 72893 6 1 Tablet(s) PO BID 04/04/2015 04/03/2015 Inactive Tivorbex 40 mg capsule RxNorm: 3585512 1 Capsule(s) PO TID 03/24/19 16 04/02/2015 Inactive bupropion HCl SR 100 mg tablet,sustained-release RxNorm: 993 503 1 Tablet(s) PO BID 03/11/2015 09/06/2015 Inactive cyclobenzaprine 10 mg tablet RxNorm: 007439 1 Tablet(s) PO TID prn spasm 03/11/2015 07/08/2015 Inactive levothyroxine 88 mcg tablet RxNorm: 688833 1 Tablet(s) PO QD 201405/27/2015 Inactive Claritin-D 24 Hour 10 mg-240 mg tablet,extended release RxNo rm: 2532407 1 Tablet(s) PO QD 02/27/2015 05/27/2015 Inactive cefuroxime axetil 500 mg tablet RxNorm: 330279 1 Tablet(s) PO BID 1 03/12/2015 Inactive Celexa 40 mg tablet RxNorm: 913322 1 Tablet(s) PO QD 02/05/201504/05 Inactive levothyroxine 75 mcg tablet RxNorm: 714041 1 Tablet(s) PO QD 201402/26/2015 Inactive Celexa 40 mg tablet RxNorm: 630873 1 Tablet(s) PO QD 10/09/201402/04 Inactive Activella 1 mg-0.5 mg tablet RxNorm: 5056141 1 Tablet(s) PO QD 08/2802/26/2015 Inactive bupropion HCl SR 100 mg tablet,sustained-release RxNorm: 993 503 1 Tablet(s) PO BID 09/12/2014 03/10/2015 Inactive levothyroxine 75 mcg tablet RxNorm: 385832 1 Tablet(s) PO QD 201412/09/2014 Inactive levothyroxine 75 mcg tablet RxNorm: 039253 1 Tablet(s) PO QD 201409/11/2014 Inactive Celexa 40 mg tablet RxNorm: 517590 1 Tablet(s) PO QD 08/12/201410/08 Inactive Xanax 1 mg tablet RxNorm: 448945 1-2 Tablet(s) PO QHS 08/12/201409/28 Inactive Claritin-D 24 Hour 10 mg-240 mg tablet,extended release RxNo rm: 6087338 1 Tablet(s) PO QD 06/13/2014 09/10/2014 Inactive cyclobenzaprine 10 mg tablet RxNorm: 721781 1 Tablet(s) PO TID prn spasm 06/12/2014 02/26/2015 Inactive Xanax 1 mg tablet RxNorm: 080853 1-2 Tablet(s) PO QHS 05/09/201406/28 Inactive levothyroxine 75 mcg tablet RxNorm: 262175 1 Tablet(s) PO QD 201407/08/2014 Inactive cephalexin 500 mg capsule RxNorm: 936166 1 Capsule(s) PO QOD 201402/26/2015 Inactive simvastatin 10 mg tablet RxNorm: 470939 1 Tablet(s) PO QHS 04/10/19 15 06/12/2014 Inactive Xanax 1 mg tablet RxNorm: 931128 1-2 Tablet(s) PO QHS 04/10/201404/28 Inactive levothyroxine 75 mcg tablet RxNorm: 969268 1 Tablet(s) PO QD 201404/09/2014 Inactive levothyroxine 75 mcg capsule RxNorm: 675629 1 Capsule(s) PO QD 03/3104/10/2014 Inactive Activella 1 mg-0.5 mg tablet RxNorm: 6626488 1 Tablet(s) PO QD 03/0109/11/2014 Inactive bupropion HCl SR 100 mg tablet,sustained-release RxNorm: 993 503 1 Tablet(s) PO BID 03/04/2014 08/30/2014 Inactive Activella 1 mg-0.5 mg tablet RxNorm: 2207420 1 Tablet(s) PO QD 01/2803/18/2014 Inactive levothyroxine 75 mcg capsule RxNorm: 752716 1 Capsule(s) PO QD 12/2904/08/2014 Inactive simvastatin 10 mg tablet RxNorm: 731916 1 Tablet(s) PO QHS 01/10/20 14 04/08/2014 Inactive cyclobenzaprine 10 mg tablet RxNorm: 671005 1 Tablet(s) PO TID prn spasm 01/09/2014 04/08/2014 Inactive Cipro 500 mg tablet RxNorm: 979922 1 Tablet(s) PO BID 12/25/201304/2013 Inactive Cipro 500 mg tablet RxNorm: 840857 1 Tablet(s) PO BID 12/25/201311/29 Inactive bupropion HCl SR 100 mg tablet,sustained-release RxNorm: 993 503 1 Tablet(s) PO QAM 12/11/2013 03/03/2014 Inactive cephalexin 500 mg capsule RxNorm: 589916 1 Capsule(s) PO QOD 201304/09/2014 Inactive Xanax 1 mg tablet RxNorm: 892172 1-2 Tablet(s) PO QHS 10/15/201310/29 Inactive simvastatin 10 mg tablet RxNorm: 812875 1 Tablet(s) PO QHS 10/11/19 14 01/07/2014 Inactive Celexa 40 mg tablet RxNorm: 820573 Tablet(s) PO TAKE 1 TABLET BY MOUTH ONCE DAILY. 09/18/2013 09/17/2013 Inactive Xanax 1 mg tablet RxNorm: 689106 1-2 Tablet(s) PO QHS 08/13/201308/28 Inactive simvastatin 10 mg tablet RxNorm: 070047 1 Tablet(s) PO QHS 07/12/19 14 10/08/2013 Inactive bupropion HCl SR 100 mg tablet,sustained-release RxNorm: 993 503 1 Tablet(s) PO QAM 05/22/2013 11/17/2013 Inactive Pamelor 10 mg capsule RxNorm: 853778 1 Capsule(s) PO QHS for PLATA /sleep 05/22/2013 06/04/2013 Inactive Xanax 1 mg tablet RxNorm: 467923 1-2 Tablet(s) PO QHS 05/15/201305/29 Inactive Pamelor 10 mg capsule RxNorm: 374690 1 Capsule(s) PO QHS for PLATA /sleep 05/15/2013 05/21/2013 Inactive Xanax 1 mg tablet RxNorm: 764513 1 Tablet(s) PO QHS 04/27/20132013 Inactive Zovirax 800 mg tablet RxNorm: 751136 1 Tablet(s) PO TID 04/05/2013 Inactive Xanax 1 mg tablet RxNorm: 065294 1 Tablet(s) PO QHS 04/03/2013 No Sto p Date Active bupropion HCl SR 100 mg tablet,sustained-release RxNorm: 993 503 1 Tablet(s) PO QAM 03/26/2013 05/21/2013 Inactive bupropion HCl SR 100 mg tablet,sustained-release RxNorm: 993 503 1 Tablet(s) PO QAM 03/06/2013 03/25/2013 Inactive Pamelor 10 mg capsule RxNorm: 909054 1 Capsule(s) PO QHS for PLATA /sleep 02/14/2013 05/14/2013 Inactive levothyroxine 75 mcg capsule RxNorm: 852554 1 Capsule(s) PO QD 12/2901/08/2014 Inactive simvastatin 10 mg tablet RxNorm: 025320 1 Tablet(s) PO QHS TAKE 1 TABLET BY MOUTH ONCE DAILY AT BEDTIME. 01/15/2013 07/10/2013 Inactive cyclobenzaprine 10 mg tablet RxNorm: 088333 1 Tablet(s) PO TID prn spasm 12/25/2012 06/22/2013 Inactive Pamelor 10 mg capsule RxNorm: 761447 1 Capsule(s) PO QHS for PLATA /sleep 11/29/2012 02/14/2013 Inactive Celexa 40 mg tablet RxNorm: 936531 Tablet(s) PO TAKE 1 TABLET BY MOUTH ONCE DAILY. 10/11/2012 09/17/2013 Inactive simvastatin 10 mg tablet RxNorm: 173145 Tablet(s) PO TA KE 1 TABLET BY MOUTH ONCE DAILY AT BEDTIME. 10/11/2012 01/14/2013 Inactive simvastatin 10 mg tablet RxNorm: 856520 1 Tablet(s) PO QD 07/11/2012 10/08/2012 Inactive simvastatin 10 mg tablet RxNorm: 866887 1 Tablet(s) PO QD 04/14/2012 07/11/2012 Inactive simvastatin 10 mg tablet RxNorm: 416246 1 Tablet(s) PO QD 04/14/2012 04/13/2012 Inactive Celexa 40 mg tablet RxNorm: 585715 1 Tablet(s) PO QD 03/15/201209/10 Inactive cyclobenzaprine 10 mg tablet RxNorm: 665632 1 Tablet(s) PO TID prn spasm 02/02/2012 02/01/2012 Inactive cyclobenzaprine 10 mg tablet RxNorm: 656908 1 Tablet(s) PO TID prn spasm 02/02/2012 07/30/2012 Inactive Diflucan 100 mg Tab RxNorm: 687035 1 Tablet(s) PO QD 08/17/201108/22 Inactive Cipro 250 mg Tab RxNorm: 301384 1 Tablet(s) PO QD 08/17/2011 10/15/19 12 Inactive Levaquin 500 mg Tab RxNorm: 596366 1 Tablet(s) PO QD 08/17/201108/22 Inactive Pyridium 200 mg Tab RxNorm: 1609411 1 Tablet(s) PO TID 10/14/2010 Inactive may turn urine orange-red color. Cipro 500 mg Tab RxNorm: 270759 1 Tablet(s) PO BID 10/14/2010 011 Inactive levothyroxine 75 mcg capsule RxNorm: 078463 1 Capsule(s) PO QD 12/3001/14/2011 Inactive Vitamin D3 5,000 unit tablet RxNorm: 261279 1 Tablet(s) PO QD No Star t Date Active Nasacort 55 mcg nasal spray aerosol RxNorm: 6958257 2 Sp ray NASAL each nostril QHS No Start Date Active cyclobenzaprine 10 mg tablet RxNorm: 304923 1 Tablet(s) PO TID as needed No Start Date 11/22/2018 Inactive Vitamin D2 1,000 unit capsule RxNorm: 082793 3 Capsule(s) PO QD No Start Date 11/16/2017 Inactive diclofenac sodium 75 mg tablet,delayed release RxNorm: 58241 6 1 Tablet(s) PO BID No Start Date 03/16/2016 Inactive cephalexin 500 mg capsule RxNorm: 145490 1 Capsule(s) PO QOD No Sta rt Date 12/04/2013 Inactive cyclobenzaprine 10 mg tablet RxNorm: 291413 1 Tablet(s) PO QHS No S tart Date 02/01/2012 Inactive loratadine 10 mg tablet RxNorm: 837504 1 Tablet(s) PO QHS No Start Date 05/14/2019 Inactive hydrocodone 5 mg-acetaminophen 500 mg tablet RxNorm: 400482 1 -2 Tablet(s) PO Q6H as needed No Start Date 08/09/2018 Inactive etodolac 400 mg tablet RxNorm: 818166 1 Tablet(s) PO TID No Start D ate 09/17/2018 Inactive Xanax 1 mg tablet RxNorm: 845064 1 Tablet(s) PO QHS No Start Date 04/2013 Inactive Vitamin D3 1,000 unit capsule RxNorm: 790015 1 Capsule(s) PO QD No Start Date 06/12/2014 Inactive estradiol 2 mg tablet RxNorm: 944313 1/2 Tablet(s) PO QD No Start D ate 03/05/2013 Inactive Celexa 40 mg tablet RxNorm: 244721 1 Tablet(s) PO QD No Start Date Inactive Activella 1 mg-0.5 mg tablet RxNorm: 3758527 1 Tablet(s) PO QD No S tart Date 07/10/2012 Inactive medroxyprogesterone 5 mg tablet RxNorm: 9387823 1/2 Tablet(s) PO QD No Start Date 03/05/2013 Inactive levothyroxine 88 mcg tablet RxNorm: 339637 1 Tablet(s) PO QD No Sta rt Date 02/26/2015 Inactive Keflex 500 mg capsule RxNorm: 559565 1 Capsule(s) PO PRN No Start D ate 08/16/2011 Inactive Activella 1 mg-0.5 mg tablet RxNorm: 5588424 1 Tablet(s) PO QHS No Start Date 03/27/2017 Inactive Activella 1 mg-0.5 mg tablet RxNorm: 7088305 1 Tablet(s) PO QD No S tart Date 02/06/2014 Inactive Flexeril 10 mg Tab RxNorm: 561468 1 Tablet(s) PO TID No Start Date Inactive prn spasm simvastatin 10 mg tablet RxNorm: 254632 1 Tablet(s) PO QD No Start Date 04/13/2012 Inactive Medication Administered No Medication Administered data Immunizations Vaccine Codes Date Status Influenza CVX: 135 01/16/2019 Complete Pneumococcal CVX: 133 01/16/2019 Complete Results No Results data Procedures Procedure Codes Date DEXAMETHASONE SODIUM PHOS CPT-4: J1100 05/14/2019 THER/PROPH/DIAG INJ SC/IM CPT-4: 84614 05/14/2019 THER/PROPH/DIAG INJ SC/IM CPT-4: 37897 05/14/2019 TRIAMCINOLONE ACET INJ NOS CPT-4: J3301 05/14/2019 FLU VACC PRSV FREE INC ANTIG 65 AND OLDER CPT-4: 16008 01/16/2019 FLU VACC PRSV FREE INC ANTIG 65 AND OLDER CPT-4: 02610 01/16/2019 PNEUMOCOCCAL VACC 13 NARESH IM CPT-4: 36035 01/16/2019 SKIN FUNGI CULTURE CPT-4: 00661 01/16/2019 IMMUNIZATION ADMIN CPT-4: 06477 01/16/2019 IMMUNIZATION ADMIN EACH ADD CPT-4: 23612 01/16/2019 THER/PROPH/DIAG INJ SC/IM CPT-4: 68733 01/17/2018 KETOROLAC TROMETHAMINE INJ CPT-4: J1885 01/17/2018 THER/PROPH/DIAG INJ SC/IM CPT-4: 06133 01/17/2018 PROMETHAZINE HCL INJECTION CPT-4: J2550 01/17/2018 URINALYSIS NONAUTO W/O SCOPE CPT-4: 12731 12/29/2017 URINE CULTURE/ COLONY COUNT CPT-4: 97899 12/29/2017 THER/PROPH/DIAG INJ SC/IM CPT-4: 49070 11/30/2017 TRIAMCINOLONE ACET INJ NOS CPT-4: J3301 11/30/2017 DEXAMETHASONE SODIUM PHOS CPT-4: J1100 11/30/2017 CEFTRIAXONE SODIUM INJECTION CPT-4: J0696 11/29/2017 THER/PROPH/DIAG INJ SC/IM CPT-4: 68869 11/29/2017 CEFTRIAXONE SODIUM INJECTION CPT-4: J0696 11/28/2017 THER/PROPH/DIAG INJ SC/IM CPT-4: 51735 11/28/2017 URINALYSIS NONAUTO W/O SCOPE CPT-4: 18649 10/10/2017 THER/PROPH/DIAG INJ SC/IM CPT-4: 80611 10/10/2017 TRIAMCINOLONE ACET INJ NOS CPT-4: J3301 10/10/2017 DEXAMETHASONE SODIUM PHOS CPT-4: J1100 10/10/2017 CEFTRIAXONE SODIUM INJECTION CPT-4: J0696 10/10/2017 THER/PROPH/DIAG INJ SC/IM CPT-4: 27753 10/10/2017 URINE CULTURE/ COLONY COUNT CPT-4: 11733 10/10/2017 THER/PROPH/DIAG INJ SC/IM CPT-4: 83925 11/02/2016 KETOROLAC TROMETHAMINE INJ CPT-4: J1885 11/02/2016 THER/PROPH/DIAG INJ SC/IM CPT-4: 46425 06/15/2016 TRIAMCINOLONE ACET INJ NOS CPT-4: J3301 06/15/2016 DEXAMETHASONE SODIUM PHOS CPT-4: J1100 06/15/2016 THER/PROPH/DIAG INJ SC/IM CPT-4: 06923 04/09/2016 KETOROLAC TROMETHAMINE INJ CPT-4: J1885 04/09/2016 PROMETHAZINE HCL INJECTION CPT-4: J2550 04/09/2016 EXC TR-EXT B9+EARSMO 0.5 CM< CPT-4: 39941 06/12/2015 URINALYSIS NONAUTO W/O SCOPE CPT-4: 65880 05/05/2015 URINE CULTURE/ COLONY COUNT CPT-4: 52647 05/05/2015 URINALYSIS NONAUTO W/O SCOPE CPT-4: 72875 03/24/2015 URINALYSIS NONAUTO W/O SCOPE CPT-4: 99514 02/27/2015 URINE CULTURE/ COLONY COUNT CPT-4: 20472 02/27/2015 THER/PROPH/DIAG INJ SC/IM CPT-4: 17141 04/18/2014 KETOROLAC TROMETHAMINE INJ CPT-4: J1885 04/18/2014 THER/PROPH/DIAG INJ SC/IM CPT-4: 21017 06/05/2013 TRIAMCINOLONE ACET INJ NOS CPT-4: J3301 06/05/2013 THER/PROPH/DIAG INJ SC/IM CPT-4: 32974 11/29/2012 KETOROLAC TROMETHAMINE INJ CPT-4: J1885 11/29/2012 URINALYSIS NONAUTO W/O SCOPE CPT-4: 13563 07/11/2012 URINE CULTURE/ COLONY COUNT CPT-4: 20194 07/11/2012 OCCULT BLOOD FECES CPT-4: 62568 02/17/2012 URINALYSIS NONAUTO W/O SCOPE CPT-4: 62863 08/27/2011 URINE CULTURE/ COLONY COUNT CPT-4: 36848 08/27/2011 URINALYSIS NONAUTO W/O SCOPE CPT-4: 07924 08/17/2011 URINE CULTURE/ COLONY COUNT CPT-4: 53672 08/17/2011 URINALYSIS NONAUTO W/O SCOPE CPT-4: 68008 12/28/2010 URINE CULTURE/ COLONY COUNT CPT-4: 24666 12/28/2010 URINALYSIS NONAUTO W/O SCOPE CPT-4: 43555 11/09/2010 URINE CULTURE/ COLONY COUNT CPT-4: 69949 11/09/2010 URINALYSIS NONAUTO W/O SCOPE CPT-4: 37226 10/29/2010 URINE CULTURE/ COLONY COUNT CPT-4: 73980 10/29/2010 URINE CULTURE/ COLONY COUNT CPT-4: 88175 10/14/2010 URINALYSIS NONAUTO W/O SCOPE CPT-4: 67166 10/14/2010 Vital Signs Date Vital 05/14/2019 Blood [...] 1: 122/74 Code: 8480-6 BMI: 22.0 Code: 55164-0 Heart Rate 1: 72 bpm Height: 5'3" [...] 1: 126/72 Code: 8480-6 BMI: 22.7 Code: 82434-0 Heart Rate 1: 72 bpm Height: 5'3" [...] 1: 112/70 Code: 8480-6 BMI: 22.0 Code: 26486-8 Heart Rate 1: 80 bpm Height: 5'3" [...] 1: 122/64 Code: 8480-6 BMI: 21.4 Code: 87970-1 Heart Rate 1: 88 bpm Height: 5'3" Respiratory Rate: 22 bpm SpO2: 96% Tempera ture: 36.8 (C) / 98.2 (F) Weight: 121 lbs 06/22/2017 Blood Pressure 1: 124/78 Code: 8480-6 BMI: 21.6 Code: 75075-0 Heart Rate 1: 76 bpm Height: 5'3" Respiratory Rate: 20 bpm Temperature: 36 .8 (C) / 98.3 (F) Weight: 122 lbs 03/28/2017 Blood Pressure 1: 92/60 Code: 8480-6 BMI: 20.4 C ode: 53995-6 Heart Rate 1: 72 bpm Height: 5'3" Respiratory Rate: 20 bpm Temperature: 36 .9 (C) / 98.4 (F) Weight: 115 lbs 02/16/2017 Blood Pressure 1: 106/70 Code: 8480-6 BMI: 21.3 Code: 92488-5 Heart Rate 1: 82 bpm Height: 5'3" Respiratory Rate: 22 bpm SpO2: 97% Tempera ture: 36.1 (C) / 97.0 (F) Weight: 120 lbs 09/06/2016 Blood Pressure 1: 118/64 Code: 8480-6 BMI: 22.7 Code: 41937-6 Heart Rate 1: 78 bpm Height: 5'3" Respiratory Rate: 20 bpm SpO2: 98% Tempera ture: 36.2 (C) / 97.2 (F) Weight: 128 lbs 08/16/2016 Blood Pressure 1: 118/78 Code: 8480-6 BMI: 22.1 Code: 36607-8 Heart Rate 1: 78 bpm Height: 5'3" Respiratory Rate: 20 bpm SpO2: 97% Tempera ture: 36.2 (C) / 97.1 (F) Weight: 125 lbs 07/19/2016 Blood Pressure 1: 116/68 Code: 8480-6 BMI: 22.5 Code: 80574-1 Heart Rate 1: 76 bpm Height: 5'3" Respiratory Rate: 20 bpm Temperature: 36 .8 (C) / 98.2 (F) Weight: 127 lbs 07/06/2016 Blood Pressure 1: 106/70 Code: 8480-6 BMI: 22.5 Code: 96317-4 Heart Rate 1: 72 bpm Height: 5'3" Respiratory Rate: 20 bpm SpO2: 97% Tempera ture: 36.8 (C) / 98.2 (F) Weight: 127 lbs 06/15/2016 Blood Pressure 1: 136/76 Code: 8480-6 BMI: 22.9 Code: 43953-5 Heart Rate 1: 74 bpm Height: 5'3" Respiratory Rate: 18 bpm SpO2: 98% Tempera ture: 36.4 (C) / 97.6 (F) Weight: 129 lbs 04/09/2016 Blood Pressure 1: 124/78 Code: 8480-6 BMI: 23.0 Code: 84932-1 Heart Rate 1: 86 bpm Height: 5'3" Respiratory Rate: 20 bpm SpO2: 96% Tempera ture: 36.5 (C) / 97.7 (F) Weight: 130 lbs 03/17/2016 Blood Pressure 1: 116/74 Code: 8480-6 BMI: 23.4 Code: 90541-8 Heart Rate 1: 84 bpm Height: 5'3" Respiratory Rate: 20 bpm SpO2: 97% Tempera ture: 36.8 (C) / 98.3 (F) Weight: 132 lbs 11/13/2015 Blood Pressure 1: 124/78 Code: 8480-6 BMI: 23.4 Code: 71095-8 Heart Rate 1: 88 bpm Height: 5'3" Respiratory Rate: 24 bpm SpO2: 98% Tempera ture: 36.8 (C) / 98.2 (F) Weight: 132 lbs 06/12/2015 Blood Pressure 1: 126/78 Code: 8480-6 BMI: 23.6 Code: 73043-1 Heart Rate 1: 80 bpm Height: 5'3" Respiratory Rate: 20 bpm Temperature: 36 .9 (C) / 98.4 (F) Weight: 133 lbs 04/22/2015 Blood Pressure 1: 126/68 Code: 8480-6 BMI: 23.6 Code: 11989-3 Heart Rate 1: 80 bpm Height: 5'3" Respiratory Rate: 20 bpm Temperature: 36 .6 (C) / 97.9 (F) Weight: 133 lbs 03/24/2015 Blood Pressure 1: 116/66 Code: 8480-6 BMI: 22.9 Code: 74898-6 Heart Rate 1: 74 bpm Height: 5'3" Respiratory Rate: 20 bpm Temperature: 36 .4 (C) / 97.6 (F) Weight: 129 lbs 02/27/2015 Blood Pressure 1: 106/64 Code: 8480-6 BMI: 22.7 Code: 85792-7 Heart Rate 1: 74 bpm Height: 5'3" Respiratory Rate: 20 bpm Temperature: 36 .8 (C) / 98.2 (F) Weight: 128 lbs 06/13/2014 Blood Pressure 1: 104/66 Code: 8480-6 BMI: 22.7 Code: 46754-0 Heart Rate 1: 84 bpm Height: 5'3" Respiratory Rate: 20 bpm Temperature: 37 .0 (C) / 98.6 (F) Weight: 128 lbs 04/18/2014 Blood Pressure 1: 112/62 Code: 8480-6 BMI: 22.0 Code: 60640-3 Heart Rate 1: 82 bpm Height: 5'3" Respiratory Rate: 18 bpm Temperature: 36 .4 (C) / 97.6 (F) Weight: 124 lbs 12/05/2013 Blood Pressure 1: 106/70 Code: 8480-6 BMI: 23.7 Code: 46659-5 Heart Rate 1: 84 bpm Height: 5'3" [...] 1: 126/88 Code: 8480-6 BMI: 22.3 Code: 96846-3 Heart Rate 1: 96 bpm Height: 5'4" Respiratory Rate: 20 bpm Temperature: 37 .7 (C) / 99.9 (F) Weight: 130 lbs 11/29/2012 Blood Pressure 1: 122/76 Code: 8480-6 BMI: 23.0 Code: 69808-2 Heart Rate 1: 84 bpm Height: 5'4" Respiratory Rate: 20 bpm Temperature: 36 .9 (C) / 98.4 (F) Weight: 134 lbs 09/26/2012 Blood Pressure 1: 114/76 Code: 8480-6 BMI: 23.0 Code: 55096-8 Heart Rate 1: 84 bpm Height: 5'4" Respiratory Rate: 20 bpm Temperature: 37 .3 (C) / 99.1 (F) Weight: 134 lbs 07/11/2012 Blood Pressure 1: 126/78 Code: 8480-6 BMI: 23.7 Code: 87141-0 Heart Rate 1: 76 bpm Height: 5'4" Respiratory Rate: 20 bpm Temperature: 37 .1 (C) / 98.7 (F) Weight: 138 lbs 02/02/2012 Blood Pressure 1: 108/70 Code: 8480-6 BMI: 23.2 Code: 90661-6 Heart Rate 1: 88 bpm Height: 5'4" Respiratory Rate: 20 bpm Temperature: 36 .4 (C) / 97.6 (F) Weight: 135 lbs 08/17/2011 Blood Pressure 1: 108/70 Code: 8480-6 BMI: 23.2 Code: 62411-9 Heart Rate 1: 72 bpm Height: 5'4" Respiratory Rate: 20 bpm Temperature: 36 .8 (C) / 98.2 (F) Weight: 135 lbs 10/14/2010 Blood Pressure 1: 120/72 Code: 8480-6 BMI: 23.4 Code: 86092-0 Heart Rate 1: 78 bpm Height: 5'3" [...] dysuria. Encounters Encounter Performer Location Codes Date ([id number]) OFFICE/OUTPATIENT VISIT EST Diagnosis: Contact dermatitis due to plant[ICD10: L25.5] Diagnosis: Cellulitis of left arm[ICD10: L03.114] Vandana Crowe PHILOMENA ALLEN [employer] CPT-4: 96822 05/14/2019 ([id number]) OFFICE/OUTPATIENT VISIT EST Diagnosis: Ventral hernia[ICD10: K43.9] Diagnosis: Incisional hernia[ICD10: K43.2] Alexandra FORDE [employer] CPT-4: 26556 04/10/2019 ([id number]) OFFICE/OUTPATIENT VISIT EST Diagnosis: Insomnia[ICD10: G47.00] Diagnosis: Thrombocytosis[ICD10: D47.3] Alexandra FORDE [employer] CPT-4: 58025 02/14/2019 ([id number]) OFFICE/OUTPATIENT VISIT EST Diagnosis: Small bowel obstruction[ICD10: K56.609] Diagnosis: FLU VACCINE[ICD10: Z23] Diagnosis: PNEUMOCOCCAL VACCINE[ICD10: Z23] Diagnosis: Onychomycosis[ICD10: B35.1] Alexandra KUNZ [facility] CPT-4: 72969 01/16/2019 ([id number]) OFFICE/OUTPATIENT VISIT EST Diagnosis: Diarrhea, unspecified[ICD10: R19.7] Diagnosis: Radiculopathy, lumbosacral region[ICD10: M54.17] Alexandra CARROLL [facility] CPT-4: 27798 09/18/2018 OFFICE/OUTPATIENT VISIT EST Diagnosis: Other intervertebral disc degeneration, lumbar region[ICD10: M51.36] Diagnosis: Sacroiliitis, not elsewhere classified[ICD10: M46.1] Diagnosis: Obstructive sleep apnea (adult) (pediatric)[ICD10: G47.33] Alexandra CARROLL [facility] CPT-4: 29006 08/10/2018 ([id number]) OFFICE/OUTPATIENT VISIT EST Diagnosis: Fracture of unspecified part of left clavicle, subsequent encounter for fracture with routine healing[ICD10: S42.002D] Diagnosis: Cervicalgia[ICD10: M54.2] Diagnosis: Radiculopathy, lumbosacral region[ICD10: M54.17] [facility] 18019 03/27/2018 ([id number]) OFFICE/OUTPATIENT VISIT EST Diagnosis: Fracture of unspecified [...] [facility]: 20561 02/23/2018 ([id number]) OFFICE/OUTPATIENT VISIT EST Diagnosis: Fracture of unspecified part of left clavicle, subsequent encounter for fracture with routine healing[ICD10: S42.002D] Diagnosis: Unspecified fracture of first thoracic vertebra, subsequent encounter for fracture with routine healing[ICD10: S22.019D] Diagnosis: Unspecified fracture of second thoracic vertebra, subsequent encounter for fracture with routine healing[ICD10: S22.029D] Alexandra CARROLL [facility] CPT-4: 19444 01/24/2018 ([id number]) OFFICE/OUTPATIENT VISIT EST Diagnosis: Migraine, unspecified, not intractable, without status migrainosus[ICD10: G43.909] Alexandra CARROLL DO [facility] CPT - 4: 23319 01/17/2018 ([id number]) OFFICE/OUTPATIENT VISIT EST Diagnosis: Hematuria, unspecified[ICD10: R31.9] Diagnosis: Other intervertebral disc degeneration, lumbar region[ICD10: M51.36] Diagnosis: Retention of urine, unspecified[ICD10: R33.9] Alexandra CARROLL [facility] CPT-4: 55464 12/29/2017 OFFICE/OUTPATIENT VISIT EST Diagnosis: Fracture of [...] Diagnosis: Low back pain[ICD10: M54.5] Alexandra KUNZ [facility] CPT-4: 94457 12/06/2017 ([id number]) OFFICE/OUTPATIENT VISIT EST Diagnosis: Cellulitis of right upper limb[ICD10: L03.113] Diagnosis: Allergy status to other antibiotic agents status[ICD10: Z88.1] Vandana CARROLL [facility] CPT-4: 04769 12/01/2017 ([id number]) OFFICE/OUTPATIENT VISIT EST Diagnosis: Cellulitis of right upper limb[ICD10: L03.113] Diagnosis: Allergy status to other antibiotic agents status[ICD10: Z88.1] Vandana CARROLL [facility] CPT-4: 75464 11/30/2017 ([id number]) OFFICE/OUTPATIENT VISIT EST Diagnosis: Cellulitis of right upper limb[ICD10: L03.113] Vandana CARROLL DO [facility] CPT-4: 76069 11/29/2017 ([id number]) OFFICE/OUTPATIENT VISIT EST Diagnosis: Cellulitis of right upper limb[ICD10: L03.113] Vandana CARROLL DO [facility] CPT-4: 17294 11/28/2017 ([id number]) OFFICE/OUTPATIENT VISIT EST Diagnosis: Other intervertebral disc degeneration, lumbar region[ICD10: M51.36] Diagnosis: Other retention of urine[ICD10: R33.8] Diagnosis: Primary insomnia[ICD10: F51.01] Diagnosis: Other spondylosis, site unspecified[ICD10: M47.899] Alexandra CARROLL DO [facility] CPT-4: 06635 11/17/2017 ([id number]) OFFICE/OUTPATIENT VISIT EST Diagnosis: Radiculopathy, lumbosacral region[ICD10: M54.17] Diagnosis: Other retention of urine[ICD10: R33.8] Diagnosis: Urinary tract infection, site not specified[ICD10: N39.0] Vandana CARROLL DO [facility] CPT-4: 45999 10/10/2017 ([id number]) PREV VISIT EST AGE 40-64 Diagnosis: Encounter for general adult medical examination without abnormal findings[ICD10: Z00.00] Diagnosis: Other intervertebral disc degeneration, lumbar region[ICD10: M51.36] Diagnosis: Hypothyroidism, unspecified[ICD10: E03.9] Diagnosis: Mixed hyperlipidemia[ICD10: E78.2] Alexandra CARROLL DO [facility] CPT-4: 31593 06/22/2017 ([id number]) OFFICE/OUTPATIENT VISIT EST Diagnosis: URI, ACUTE[ICD10: J06.9] Alexandra SHAFFERLINE Ty ROMAN [facility] CPT-4: 38143 03/28/2017 OFFICE/OUTPATIENT VISIT EST Diagnosis: Acute sinusitis, unspecified[ICD10: J01.90] Vandana CARROLL DO [facility] CPT-4: 04372 02/16/2017 ([id number]) OFFICE/OUTPATIENT VISIT EST Diagnosis: Migraine, unspecified, not intractable, without status migrainosus[ICD10: G43.909] Alexandra CARROLL DO [facility] CPT - 4: 12497 11/02/2016 ([id number]) OFFICE/OUTPATIENT VISIT EST Diagnosis: Pain in thoracic spine[ICD10: M54.6] Diagnosis: Chondrocostal junction syndrome [Tietze][ICD10: M94.0] Alexandra CARROLL DO [facility] CPT-4: 03549 09/06/2016 OFFICE/OUTPATIENT VISIT EST Diagnosis: Acute sinusitis, unspecified[ICD10: J01.90] Vidya Manuel ALEXANDRA CARROLL [employer] [facility] CPT-4: 71131 08/16/2016 ([id number]) OFFICE/OUTPATIENT VISIT EST Diagnosis: Primary insomnia[ICD10: F51.01] Diagnosis: Cramp and spasm[ICD10: R25.2] Diagnosis: Major depressive disorder, single episode, mild[ICD10: F32.0] Alexandra CARROLL [facility] CPT-4: 88843 07/19/2016 ([id number]) OFFICE/OUTPATIENT VISIT EST Diagnosis: Obstructive sleep apnea (adult) (pediatric)[ICD10: G47.33] Diagnosis: Other fatigue[ICD10: R53.83] Diagnosis: Allergic rhinitis due to pollen[ICD10: J30.1] Diagnosis: Headache[ICD10: R51] Alexandra CARROLL [employer] [place] [facility] CPT-4: 11991 07/06/2016 ([id number]) OFFICE/OUTPATIENT VISIT EST Diagnosis: Acute recurrent sinusitis, unspecified[ICD10: J01.91] Diagnosis: Allergic rhinitis due to pollen[ICD10: J30.1] Alexandra CARROLL [employer] [place] [facility] CPT-4: 89695 06/15/2016 ([id number]) OFFICE/OUTPATIENT VISIT EST Diagnosis: Migraine, unspecified, not intractable, without status migrainosus[ICD10: G43.909] Diagnosis: Allergic rhinitis, unspecified[ICD10: J30.9] Nae CARROLL [facility] CPT-4: 24731 04/09/2016 ([id number]) OFFICE/OUTPATIENT VISIT EST Diagnosis: Hypothyroidism, unspecified[ICD10: E03.9] Diagnosis: Other fatigue[ICD10: R53.83] Diagnosis: Mixed hyperlipidemia[ICD10: E78.2] Diagnosis: Major depressive disorder, single episode, mild[ICD10: F32.0] Alexandra CARROLL [facility] CPT-4: 51983 03/17/2016 ([id number]) OFFICE/OUTPATIENT VISIT EST Diagnosis: Insomnia, unspecified[ICD10: G47.00] Diagnosis: Encounter for therapeutic drug level monitoring[ICD10: Z51.81] Nae CARROLL [facility] CPT-4: 78178 11/13/2015 ([id number]) OFFICE/OUTPATIENT VISIT EST Diagnosis: Hematuria, unspecified[ICD10: R31.9] Alexandra CARROLL [facility] CPT-4: 78144 05/05/2015 ([id number]) OFFICE/OUTPATIENT VISIT EST Diagnosis: Other intervertebral disc degeneration, lumbar region[ICD10: M51.36] Diagnosis: Radiculopathy, lumbosacral region[ICD10: M54.17] Alexandra CARROLL [facility] CPT-4: 92505 04/22/2015 ([id number]) OFFICE/OUTPATIENT VISIT EST Diagnosis: Low back pain[ICD10: M54.5] Diagnosis: Recurrent and persistent hematuria with unspecified morphologic changes[ICD10: N02.9] Alexandra CARROLL DO [facility] CPT-4: 93515 03/24/2015 ([id number]) OFFICE/OUTPATIENT VISIT EST Diagnosis: Acute sinusitis, unspecified[ICD10: J01.90] Diagnosis: Headache[ICD10: R51] Diagnosis: Retention of urine, unspecified[ICD10: R33.9] Diagnosis: Hypothyroidism, unspecified[ICD10: E03.9] Alexandra CARROLL [facility] CPT-4: 76166 02/27/2015 ([id number]) PREV VISIT EST AGE 40-64 Diagnosis: ROUTINE MEDICAL EXAM[ICD9: V70.0] Diagnosis: HYPOTHYROIDISM[ICD9: 244.9] Diagnosis: HYPERLIPIDEMIA NEC/NOS[ICD9: 272.4] Alexandra Danelawandavioletta TANIARODRIGUEZ CORDOBA SAri VELANDVIOLETTA SALGUERO [employer] CPT-4: 03376 06/13/2014 ([id number]) OFFICE/OUTPATIENT VISIT EST Diagnosis: CEPHALGIA[ICD9: 784.0] Diagnosis: Nausea[ICD9: 787.02] Shalini Romeo VELANDER [employer] CPT-4: 00940 04/18/2014 ([id number]) OFFICE/OUTPATIENT VISIT EST Diagnosis: INSOMNIA NOS[ICD9: 780.52] Diagnosis: Complicated grieving[ICD9: 309.0] Alexandra Danejames MARINPAM E SAri VELANDER [employer] CPT-4: 21748 12/05/2013 ([id number]) OFFICE/OUTPATIENT VISIT EST Diagnosis: Muscle twitch[ICD9: 781.0] Diagnosis: ALLERGIC RHINITIS[ICD9: 477.9] Alexandra Velalawandavioletta SHAFFERALEXANDRA Macy VELANDVIOLETTA [employer] CPT-4: 89004 06/05/2013 ([id number]) OFFICE/OUTPATIENT VISIT EST Diagnosis: DEPRESSIVE DISORDER NEC[ICD9: 311] Alexandradanielle QUINTERO S. DANENDER [employer] CPT-4: 87390 05/22/2013 OFFICE/OUTPATIENT VISIT EST Diagnosis: Shingles[ICD9: 053.9] Alexandra Danejames FORDE MacyAri DANENDER [employer] [place] [facility] CPT-4: 25552 04/05/2013 ([id number]) OFFICE/OUTPATIENT VISIT EST Diagnosis: DEPRESSIVE DISORDER NEC[ICD9: 311] Alexandra QUINTERO S. DANENDER DO [employer] CPT-4: 38462 03/26/2013 ([id number]) OFFICE/OUTPATIENT VISIT EST Diagnosis: Complicated grieving[ICD9: 309.0] Alexandra Danelawandavioletta SHAFFERLORI Louise S. DANENDER [employer] CPT-4: 78981 03/06/2013 ([id number]) OFFICE/OUTPATIENT VISIT EST Diagnosis: CEPHALGIA, TENSION[ICD9: 307.81] Diagnosis: MIGRAINE NOS/NOT INTRCBL[ICD9: 346.90] Diagnosis: Cervicalgia[ICD9: 723.1] Alexandra PLATT IZABELLA [facility] CPT-4: 72890 11/29/2012 ([id number]) OFFICE/OUTPATIENT VISIT EST Diagnosis: Jaw pain[ICD9: 784.92] Diagnosis: Shoulder pain[ICD9: 719.41] Diagnosis: Family history of premature coronary artery disease[ICD9: V17.3] Alexandra CARROLL [facility] CPT-4: 03321 09/26/2012 ([id number]) OFFICE/OUTPATIENT VISIT EST Diagnosis: ABDOMINAL PAIN[ICD9: 789.00] Diagnosis: Constipation[ICD9: 564.00] Diagnosis: Hematuria[ICD9: 599.70] Alexandra BURLESON [facility] CPT-4: 57497 07/11/2012 ([id number]) OFFICE/OUTPATIENT VISIT EST Diagnosis: ANEMIA NOS[ICD9: 285.9] Alexandra VELAND [facility] CPT-4: 63475 02/17/2012 ([id number]) PREV VISIT EST AGE 40-64 Diagnosis: ROUTINE MEDICAL EXAM[ICD9: V70.0] Diagnosis: HYPOTHYROIDISM[ICD9: 244.9] Diagnosis: HYPERLIPIDEMIA NEC/NOS[ICD9: 272.4] Diagnosis: Obstructive sleep apnea[ICD9: 327.23] Alexandra MARINGWENDOLYN JANEL Ty CARROLL [facility] CPT-4: 51798 02/02/2012 ([id number]) OFFICE/OUTPATIENT VISIT EST Diagnosis: URINARY TRACT INFECTION[ICD9: 599.0] Alexandra VELANDVIOLETTA [facility] CPT-4: 67115 08/27/2011 ([id number]) OFFICE/OUTPATIENT VISIT EST Diagnosis: URINARY TRACT INFECTION[ICD9: 599.0] Diagnosis: ACUTE CYSTITIS[ICD9: 595.0] Alexandra SHAFFERLINE Ty O RENDER [facility] CPT-4: 51812 08/17/2011 OFFICE/OUTPATIENT VISIT EST Diagnosis: URINARY TRACT INFECTION[ICD9: 599.0] Steph LOZANO [facility]acy. [facility] CPT-[facility]: 57884 10/14/2010 Plan of Care Planned Activity Notes [...] injection a week pre-op and dr. albert's [employer] supervisor voiced ok to give. ICD-9 : 692.6 ICD-10 : L25.5 05/14/2019 Patient Education: Levaquin- [employer] Coupon [id number] [email or web address] Completed 05/14/2019 Visit Diagnosis Plan: Ventral hernia Discussion: See s urgery for repair Discussed signs of incarceration or strangulation then is to report to ER ICD-9 : 553.20 ICD-10 : K43.9 04/10/2019 Appointment: Alexandra [facility] [phone] [id number] [place] left second message 04/10/19 at 10:20 ACUTE ILLNE SS 04/10/2019 Care Plan: Referral Order SNOMED-CT : 30 [id number] Pending 04/10/2019 Visit Diagnosis Plan: Insomnia Discussion: [...] D47.3 02/14/2019 Appointment: Alexandra Carroll [facility] [phone] [id number] [place] FOLLOW UP 02/14/2019 Appointment: Alexandra Carroll WPtel: [address] [place], [place] [id number] [place] CANCELED 02/12/2019 Visit Diagnosis Plan: Onychomycosis Discussion: Send n ail for culture ICD-9 : 110.1 ICD-10 : B35.1 01/16/2019 Visit Diagnosis Plan: Small bowel obstruction Discussi on: S/P surgery in September with postop complications of wound dehiscence ICD-9 : 560.9 ICD-10 : K56.609 01/16/2019 Appointment: Alexandra Carroll WPtel: [address] [place], [place] [id number] MEDICATION REVIEW 01/16/2019 Appointment: Alexandra Carroll WPtel: [address] [place], [place] [id number] US CANCELED 12/12/2018 Visit Diagnosis Plan: Diarrhea, unspecified Discussion : Due for updated colonoscopy ICD-9 : 787.91 ICD-10 : R19.7 09/18/2018 Visit Diagnosis Plan: Radiculopathy, lumbosacral regio n Discussion: Had left SI joint injection by Dr. Baig about 2 weeks ago and has fwup with him ICD-9 : 724.4 ICD-10 : M54.17 09/18/2018 Appointment: Alexandra Carroll WPtel: [address] [place], [place] [phone] PATIENT CONSULT 15 09/18/2018 Care Plan: Referral Order SNOMED-CT : 30 [id number] Pending 09/18/2018 Visit Diagnosis Plan: Other intervertebral [...] : M46.1 08/10/2018 Appointment: Alexandra Carroll WPtel: [address] [place], [place] [phone] [place] MEDICATION REVIEW 08/10/2018 Care Plan: Referral Order SNOMED-CT : 30 [id number] Pending 08/10/2018 Appointment: Alexandra Carroll WPtel: [address] [place], [place] [phone] US CANCELED 04/17/2018 Visit Diagnosis Plan: Fracture [...] : M54.2 03/27/2018 Appointment: Alexandra Carroll WPtel: [address] [place], [place] [phone] US FOLLOW UP 03/27/2018 Visit Diagnosis Plan: [...] S42.002D 02/23/2018 Appointment: Alexandra Carroll WPtel: [address] [place] [address] US FOLLOW UP 02/23/2018 Patient Education: gabapentin- [employer] Coupon [id number] [email or web address] Completed 02/23/2018 Visit Diagnosis Plan: Fracture of unspec ified part of left clavicle, subsequent encounter for fracture with routine healing Discussion: Hold on PT and do home stretches Trial of gabapentin Recheck 4 weeks ICD-9 : V54.11 ICD-10 : S42.002D 01/24/2018 Appointment: Alexandra Carroll WPtel: [address] [place] [address] US FOLLOW UP 01/24/2018 Visit Diagnosis Plan: Migraine, unspecif ied, not intractable, without status migrainosus Discussion: Toradol and phenergan given ICD-9 : 346.90 ICD-10 : G43.909 01/17/2018 Appointment: Alexandra Carroll WPtel: [address] [place] [address] ACUTE ILLNESS 01/17/2018 Visit Diagnosis Plan: Retention [...] : M51.36 12/29/2017 Appointment: Alexandra Carroll WPtel: [address] [place] [address] ACUTE ILLNESS 12/29/2017 Care Plan: US EXAM PELVIC COMPLETE LOINC : 91764-0 Pending 12/29/2017 Care Plan: ECHO EXAM OF ABDOMEN LOINC : 98475-9 Pending 12/29/2017 Care Plan: Referral Order SNOMED-CT : 30 [id number] Pending 12/29/2017 Visit Diagnosis Plan: Fracture of unspec ified part of left clavicle, subsequent encounter for fracture with routine healing Discussion: Start PT in another 7-14 days Off work for the rest of this week then may return to part-time work on 12/12/17 Fwup in 4 weeks ICD-9 : V54.11 ICD-10 : S42.002D 12/06/2017 Appointment: Alexandra Carroll WPtel: [phone] [facility] US FOLLOW UP 12/06/2017 Patient [...] ICD-10 : L03.113 12/01/2017 Appointment: Vandana Crowe [address] [place], [place] [phone] FOLLOW UP 12/01/2017 Patient Education: Patient Medication [...] : Z88.1 11/30/2017 Appointment: Vandana Crowe [address] 11/30/2017 Patient Education: Patient Medication Summary [...] ICD-10 : L03.113 11/29/2017 Appointment: Vandana Crowe [address] [place] [address] FOLLOW UP 11/29/2017 Patient Education: Patient Medication [...] : L03.113 11/28/2017 Appointment: Vandana Crowe [address] [facility] ACUTE ILLNESS 11/28/2017 Patient Education: Patient [...] M51.36 11/17/2017 Appointment: Alexandra Carroll [facility]el[facility] [phone] [facility] MEDICATION REVIEW 11/17/2017 Patient Education: Patient Medication Summary Completed 11/17/2017 Care Plan: Referral Order SNOMED-CT : 30 [id number] Pending 11/17/2017 Patient Education: Patient Medication Summary Completed 10/12/2017 Care Plan: MRI LUMBAR SPINE W/O DYE LOIN C : 69102-7 Pending 10/12/2017 Care Plan: X-RAY EXAM L-S SPINE 2/3 VWS LOINC : 60466-9 Pending 10/11/2017 Visit Diagnosis Plan: Other retention [...] ICD-10 : M54.17 10/10/2017 Appointment: Vandana Crowe [address] [place] [address] ACUTE ILLNESS 10/10/2017 Patient Education: Patient Medication Summary Completed 10/10/2017 Appointment: Vandana Crowe [address] [place] [address] ACUTE ILLNESS 08/01/2017 Visit Diagnosis Plan: Other intervertebral disc degene ration, lumbar region Discussion: Core strengtheing and inversion table and if worsening will need updated MRI ICD-9 : 722.52 ICD-10 : M51.36 06/22/2017 Visit Diagnosis Plan: Encounter for [facility] adult medical examination without abnormal findings Discussion: Lab dis ussed Follow Up: 6 months ICD-9 : V70.0 ICD-10 : Z00.00 06/22/2017 Appointment: Alexandra Carroll WPtel: [phone] Annual Well Visit 06/22/2017 Patient Education: Patient Medication Summary Completed 06/22/2017 Patient Education: Patient Medication Summary Completed 06/16/2017 Care Plan: COMPREHEN METABOLIC [place] : 26761-0 Pending 06/16/2017 Care Plan: ASSAY THYROID STIM HORMONE [place] 06/16/2017 Care Plan: ASSAY OF FREE THYROXINE [place] 06/16/2017 Care Plan: LIPID PANEL LOINC : 91451-2 Pending 06/16/2017 Care Plan: CBC Pending 06/16/2017 [...] : J06.9 03/28/2017 Appointment: Alexandra Carroll WPtel: [address] [place] [address] ACUTE ILLNESS 03/28/2017 Patient Education: Patient Medication Summary Completed 03/28/2017 Visit Diagnosis Plan: Acute sinusitis, unspecified Dis cussion: cefdinir and medrol dose pack prescribed to be taken as directed. tylenol/ibuprofen as needed. educated on importance of taking singulair or zyrtec daily to prevent worsening symptoms. keep hydrated. ICD-9 : 461.9 ICD-10 : J01.90 02/16/2017 Appointment: Vandana Crowe [address] [place] [address] ACUTE ILLNESS 02/16/2017 Patient Education: Patient Medication Summary Completed 02/16/2017 Appointment: Alexandra Carroll WPtel: [address] [place] [address] [place] INJECTION 11/02/2016 Patient Education: Patient Medication Summary Completed 11/02/2016 Visit Diagnosis Plan: Pain in thoracic spine Discussio n: Increase flexeril to 10mg po BID Add Mobic 15mg po daily Towel stretch May see chiropractor to adjust ribs Notify if persists or worsening ICD-9 : 724.1 ICD-10 : M54.6 09/06/2016 Appointment: Alexandra Carroll WPtel: [address] [place] [address] ACUTE ILLNESS 09/06/2016 Patient Education: Patient Medication Summary Completed 09/06/2016 Visit Plan: Due to hx, ERx Cefdinir and Prednisone (discussed risks for both) Given bottle for nasal saline rinses Tylenol/Ibuprofen prn pain/fever Fluids/rest Discussed s/s of worsening, RTC if no improvement 08/16/2016 Appointment: Vidya Manuel WPtel: [address] [place] [address] ACUTE ILLNESS 08/16/2016 Patient Education: Patient Medication [...] : F32.0 07/19/2016 Appointment: Alexandra Carroll WPtel: [address] [place], [place] [id number] 07/15 confirmed`sl FOLLOW UP 07/19/2016 Patient Education: [...] : 477.9 ICD-10 : J30.1 07/06/2016 Appointment: Alexadnra Carroll WPtel: [address] [place], [place] [phone] 07/05 confirmed-sp FOLLOW UP 07/06/2016 Patient Education: [...] : J01.91 06/15/2016 Appointment: Alexandra Carroll WPtel: [address] [place], [place] [phone] 06/14 lm ~sl ACUTE ILLNESS 06/15/2016 Patient Education: Patient Medication Summary Completed 06/15/2016 Visit Diagnosis Plan: Migraine, unspecif ied, not intractable, without status migrainosus Discussion: Injection as above Drink ple nty of water No driving x 6 hours Rest No OTC nsaids today Follow up PRN Refill called of claritin-d ICD-9 : 346.90 ICD-10 : G43.909 04/09/2016 Appointment: Nae Mckay [address] [place] [address] ACUTE ILLNESS 04/09/2016 Patient Education: Patient Medication [...] : R53.83 03/17/2016 Appointment: Alexandra Carroll WPtel: [address] [place], [place] [phone] 03/16 nvm~sl 03/17 confirmed`sl FOLLOW UP 0 03/17/2016 Patient Education: Patient Medication Summary Completed 03/17/2016 Appointment: Alexandra Carroll WPtel: [address] [place], [place] [phone] [place] 03/11 lm~sl 03/15lm `sl 03/15 confirmed`sl FOLLOW U P 03/15/2016 Visit Plan: Discussed labeled indication s for benzos. Since xanax is not labeled for sleep and she has never tried anything else, encouraged her to trial restoril(another benzo) since it is labeled for sleep. She agrees with this trial. Rx called to [facility] after cost comparison which is nearly the same robert. If working well, continue the v9ajivj office visits. Call if not working well, and will restart xanax at for sleep. 11/13/2015 Appointment: Nae Mckay [address] [place], [place] [id number] 11/11 confirmed~ FOLLOW UP 11/13/2015 Patient Education: Patient Medication Summary Completed 11/13/2015 Appointment: Alexandra Carroll WPtel: [address] [place], [place] [phone] Suture Removal 06/23/2015 Patient Education: Patient Medication Summary Completed 06/23/2015 Visit Plan: Removal of lesion above usin g 3-0 punch biopsy Return in 10 days for suture removal 06/12/2015 Appointment: Alexandra Carroll WPtel: [address] [place], [place] [phone] 06/10 lm ~ ACUTE ILLNESS 06/12/2015 Patient Education: Patient Medication Summary Completed 06/12/2015 Referral: Soy Garcia [facility]Ptel[facility] [address] [id number] Schedule patient around lunch time and 3 weeks from 04/22/2015 ~ Spoke with Kiesha at Dr. Sandoval Office and 04/24/15 and scheduled the patient ~ 04/24/15 Patient is informed~ 06/03 Patient canceled the appointment ~ Patient did not show up for scheduled appointment-sp Appoint ment Requested 05/21/2015 Appointment: Alexandra Carroll WPtel: [phone] [facility] [facility] 05/05/2015 Patient Education: Patient Medication Summary Completed 05/05/2015 Visit Plan: Starts PT today Schedule wit h Dr. Garcia for epidural CT abdomen/pelvis results discussed Sees [facility] [employer] [facility] in April and will get checked then 04/22/2015 Appointment: Alexandra Carroll WPtel: [address] [place] [address] 04/21 confirmed~lb ACUTE ILLNESS 04/22/2015 Patient Education: Patient Medication Summary Completed 04/22/2015 Referral: Lincoln Hernandez WPtel: [address] [place] [address] Referral Initiated 04/10/2015 Patient Education: Patient Medication Summary Completed 04/09/2015 Visit Plan: Start with lumosacral spine x-ray--will likely need MRI of L/S spine x-ray Needs urology--has had to have bladder stretched in past Tivorbex 03/24/2015 Appointment: Alexandra Carroll WPtel: [address] [place] [address] 03/21/15 appt confirmed cn ACUTE ILLNESS 03/24 Patient Education: Patient Medication Summary Completed 03/24/2015 Visit Plan: Saline nasal flushes prn. Ty lenol/Motrin prn headache. Notify if persists/symptoms worsening. Cefuroxime to cover both sinuses and UTI Culture urine Check lab 02/27/2015 Appointment: Alexandra Carroll WPtel: [address] [place] [address] 02/26/15 vm to confirm and need new insu meri on file is inactive cn....02/27/15 appt confirmed cn ACUTE ILLNESS 015 Patient Education: Patient Medication Summary Completed 02/27/2015 Visit Plan: Lab discussed Stop simvastat in Check lipids in 6mos Continue all other meds at current dose Had Pap and Mammo 3 weeks ago 06/13/2014 Appointment: Alexandra Carroll WPtel: [address] [place] [address] Annual Well Visit 06/13/2014 Patient Education: Patient Medication Summary Completed 06/13/2014 Appointment: Shalini Walters WPtel: [address] [place] [address] ACUTE ILLNESS 04/18/2014 Patient Education: Patient Medication Summary Completed 04/18/2014 Visit Plan: Check lab in May then fwup Can try decreasing xanax to 1mg q HS with melatonin 5-10mg q HS 12/05/2013 Appointment: Alexandra Carroll WPtel: [address] [place], [place] [phone] 12/04 FOLLOW UP 12/05/2013 Patient Education: Patient Medication Summary Completed 12/05/2013 Appointment: Alexandra Carroll WPtel: [address] [place], [place] [phone] FOLLOW UP 06/05/2013 Patient Education: Patient Medication Summary Completed 06/05/2013 Appointment: Alexandra Carroll WPtel: [address] [place], [place] [phone] FOLLOW UP 05/22/2013 Patient Education: Patient Medication Summary Completed 05/22/2013 Visit Plan: Zovirax for 2wks Notify if p ain worsens or if persists 04/05/2013 Appointment: Alexandra Carroll WPtel: [address] [place] [address] ACUTE ILLNESS 04/05/2013 Patient Education: Patient Medication Summary Completed 04/05/2013 Visit Plan: Keep Wellbutrin at current d ose Pt did see for counseling 03/26/2013 Appointment: Alexandra Carroll WPtel: [address] [place] [address] ACUTE ILLNESS 03/26/2013 Patient Education: Patient Medication Summary Completed 03/26/2013 Visit Plan: Continue citalopram at curre nt dose Increase xanax to 1-2mg q HS for sleep Add Wellbutrin Sr 100mg q AM Start Counseling 03/06/2013 Appointment: Alexandra Carroll WPtel: [address] [place] [address] ACUTE ILLNESS 03/06/2013 Patient Education: Patient Medication Summary Completed 03/06/2013 Appointment: Alexandra Carroll: [address] [place] [address] ACUTE ILLNESS 11/29/2012 Patient Education: Patient Medication Summary Completed 11/29/2012 Appointment: Alexandra Carroll WPtel: [address] [place] [address] ACUTE ILLNESS 09/26/2012 Patient Education: Patient Medication Summary Completed 09/26/2012 Appointment: Alexandra Carroll WPtel: [address] [place] [address] ACUTE ILLNESS 07/11/2012 Patient Education: Patient Medication Summary Completed 07/11/2012 Appointment: Alexandra Carroll WPtel: [address] [place] [address] [place] LAB 02/17/2012 Patient Education: Patient Medication Summary Completed 02/17/2012 Visit Plan: Check fasting lab Start annie y ca with Vit D Cont CPAP Mammo up-to-date Hemoccult card given 02/02/2012 Appointment: Alexandra Carroll WPtel: [address] [place] [address] PHYSICAL 02/02/2012 Patient Education: Patient Medication Summary Completed 02/02/2012 Appointment: Alexandra Carroll WPtel: [address] [place] [address] UA 08/27/2011 Patient Education: Patient Medication Summary Completed 08/27/2011 Visit Plan: Levaquin and Diflucan for 1w k Then cipro QOD for prophylaxis 08/17/2011 Appointment: Alexandra Carroll WPtel: [address] [place] [address] FOLLOW UP 08/17/2011 Patient Education: Patient Medication Summary Completed 08/17/2011 Appointment: Alexandra Carroll WPtel: [address] [place] [address] UA 12/28/2010 Patient Education: Patient Medication Summary Completed 12/28/2010 Appointment: Alexandra Carroll WPtel: [address] [place], [place] [phone] UA 11/09/2010 Patient Education: Patient Medication Summary Completed 11/09/2010 Appointment: Alexandra Carroll WPtel: [phone] [facility] UA 10/29/2010 Patient Education: Patient Medication Summary Completed 10/29/2010 Appointment: Steph Bowen WPtel: [address] [place], [place] [phone] ACUTE ILLNESS 10/14/2010 Patient Education: Patient Medication Summary Completed 10/14/2010 Referral: Folrian Baig WPtel: [facility] [address] [place] Referral Initiated Referral: Paulo Albert WPtel: [id number] [place] Referral Appointment Requested Referral: Luis Enrique Jasso WPtel: [facility] [address] [place] Referral Appointment Requested Referral: Florian Baig WPtel: [facility] [address] [place] Referral Appointment Requested Referral: Caelb Glaser WPtel: [address] [place] Referral Appointment Requested Referral: Florian Baig WPtel: [facility] [place] [id number] [place] Referral Initiated Referral: Florian Baig WPtel: [facility] [place] [address] [id number] [place] Referral Appointment Requested Instructions Comment . [...] agrees with this trial. Rx called to [facility] after cost comparison which is nearly the same robert. If working well, continue the o0cctin office visits. Call if not working well, and will restart xanax at HS for sleep. . Removal of lesion above using 3-0 punc h biopsy Return in 10 days for suture removal . Starts PT today Schedule with Dr. Garcia for epidural CT abdomen/pelvis results discussed Sees [facility] in April and will get checked then [...]
--- OUTSIDE RECORDS SUMMARY | 2019-09-02 00:27 | XMS REPORT | CCD ---
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 Name Role Phone Alexandra Carroll D.O., PP Unavailable CCM Unavailable Summary Purpose Interface Exchange Insurance Providers Payer name Policy type / Coverage type Covered republican ID Effective Begin Date Effective End Date WPS MEDICARE PART B [place] Medicare Part B [id number] 2019 Unknown [employer] [place] Medicare Part B [id number] Unknown Family History Family History data not found Social History Social History Element Codes Description Effective Dates Tobacco history SNOMED CT: 638658707 Nonsmoker 10/14/2010 Allergies, Adverse Reactions, Alerts Substance Reaction Codes Entered Date Inactivated Date Status MORPHINE SULFATE RxNorm: 1328556 10/14/2010 No Inactive Da te Active CEPHALOSPORINS rash Unknown 12/06/2017 No Inactive Date Acti ve SULFA (SULFONAMIDES) Unknown 10/14/2010 No Inactive Cruz e Active Clindamycin HCl Unknown 12/06/2017 No Inactive Date Act unique _ reaction, Unknown 06/13/2014 No Inactive Date Active DEMEROL Unknown 10/14/2010 No Inactive Date Active Problems Condition Codes Effective Dates Condition Status Incisional hernia ICD-9: 553.21 ICD-10: K43.2 04/10/2019 [...] Start Date Stop Date Status Fill Instructions Xanax 1 mg tablet RxNorm: 864151 1-2 Tablet(s) Oral e very night at bedtime as needed for sleep 05/03/2019 06/01/2019 Active Generic For:LAVELLE AX 1MG 10/11/2016 11:15:13 AM cyclobenzaprine 10 mg tablet RxNorm: 372874 1 Tablet(s) Oral three times a day as needed for muscle spasm 02/12/2019 02/12/2019 Inactive Xanax 1 mg tablet RxNorm: 382876 1-2 Tablet(s) Oral e very night at bedtime as needed for sleep 02/09/2019 03/10/2019 Inactive Generic For:LAVELLE AX 1MG 10/11/2016 11:15:13 AM Xanax 1 mg tablet RxNorm: 468743 1-2 Tablet(s) Oral e very night at bedtime as needed for sleep 01/22/2019 02/08/2019 Inactive Generic For:LAVELLE AX 1MG 10/11/2016 11:15:13 AM Celexa 40 mg tablet RxNorm: 356814 1 Tablet(s) Oral QD 01/17/2019 Active - First Attempt Ref: [id number] Xanax 1 mg tablet RxNorm: 121502 1 Tablet(s) Oral every night a t bedtime 01/08/2019 01/21/2019 Inactive levothyroxine 88 mcg tablet RxNorm: 980421 TAKE 1 TABLET BY NINA TH DAILY 12/19/2018 06/16/2019 Active - First Attempt Ref: [id number] Xanax 1 mg tablet RxNorm: 254801 1 Tablet(s) Oral every night a t bedtime 12/06/2018 01/05/2019 Inactive Singulair 10 mg tablet RxNorm: 554835 1 Tablet(s) Oral every ni ght at bedtime 11/23/2018 11/17/2019 Active - First Attempt Ref: [id number] Celexa 40 mg tablet RxNorm: 564182 1 Tablet(s) Oral 11/23/20182018 Inactive - First Attempt Ref: [id number] cyclobenzaprine 10 mg tablet RxNorm: 160955 1 Tablet(s) Oral three times a day as needed for muscle spasm 11/23/2018 02/11/2019 Inactive Xanax 1 mg tablet RxNorm: 315439 1 Tablet(s) PO QHS 11/06/20182018 Inactive Xanax 1 mg tablet RxNorm: 679455 1 Tablet(s) PO QHS 09/26/20182018 Inactive Singulair 10 mg tablet RxNorm: 459861 TAKE 1 TABLET BY MOUTH EVERY NIGHT AT BEDTIME 08/16/2018 11/22/2018 Inactive - First Attempt Ref: [id number] Xanax 1 mg tablet RxNorm: 856641 1 Tablet(s) PO QHS 08/01/20182018 Inactive levothyroxine 88 mcg tablet RxNorm: 791921 TAKE 1 TABLET BY NINA TH DAILY 07/31/2018 12/18/2018 Inactive - First Attempt Ref: [id number] Celexa 40 mg tablet RxNorm: 124433 TAKE 1 TABLET BY MOUTH DAILY 04/201811/22/2018 Inactive - First Attempt Ref: 4302090 54 bupropion HCl SR 100 mg tablet,12 hr sustained-release RxNor m: 945587 1 Tablet(s) PO BID 07/12/2018 07/06/2019 Active - Ref: [id number] 7 Claritin-D 24 Hour 10 mg-240 mg tablet,extended release RxNo rm: 7285577 1 Tablet(s) PO QD 06/29/2018 2018 Inactive Claritin-D 24 Hour 10 mg-240 mg tablet,extended release RxNo rm: 2164596 1 Tablet(s) PO QD 06/29/2018 2018 Inactive Xanax 1 mg tablet RxNorm: 376853 1-2 Tablet(s) PO QHS as needed for sleep 05/26/2018 06/23/2018 Inactive Generic For:XANAX 1M G 10/11/2016 11:15:13 AM Xanax 1 mg tablet RxNorm: 125601 1-2 Tablet(s) PO QHS as needed for sleep 03/28/2018 05/25/2018 Inactive Generic For:XANAX 1M G 10/11/2016 11:15:13 AM Macrobid 100 mg capsule RxNorm: 667097 1 Capsule(s) PO BID 03/27/1903/31/2018 Inactive gabapentin 300 mg capsule RxNorm: 342518 1 Capsule(s) PO QHS 201703/26/2018 Inactive Claritin-D 24 Hour 10 mg-240 mg tablet,extended release RxNo rm: 9976335 1 Tablet(s) PO QD 01/26/2018 02/24/2018 Inactive gabapentin 100 mg capsule RxNorm: 631947 1 Capsule(s) P O QHS for 1 week then 2 po q HS for 2 weeks then 3 po q HS 01/24/2018 03/26/2018 Inactive Xanax 1 mg tablet RxNorm: 585947 1-2 Tablet(s) PO QHS as needed for sleep 01/24/2018 03/24/2018 Inactive Generic For:XANAX 1M G 10/11/2016 11:15:13 AM prednisone 20 mg tablet RxNorm: 483255 1 Tablet(s) PO T ID for 3 days then 1 po BID for 3 days then one daily for 3 days 12/29/2017 03/26/2018 Inactiv e prednisone 20 mg tablet RxNorm: 952976 3 Tablet(s) PO T ID for 3 days then 1 po BID for 3 days then one daily for 3 days 12/29/2017 12/29/2017 Inactiv e Macrobid 100 mg capsule RxNorm: 620272 1 Capsule(s) PO BID 12/30/19 18 01/02/2018 Inactive Xanax 1 mg tablet RxNorm: 649905 1-2 Tablet(s) PO QHS as needed for sleep 12/28/2017 01/23/2018 Inactive Generic For:XANAX 1M G 10/11/2016 11:15:13 AM Medrol (Walter) 4 mg tablets in a dose pack RxNorm: 158515 Tablet(s) PO take as directed 12/01/2017 03/26/2018 Inactive Keflex 750 mg capsule RxNorm: 617625 1 Capsule(s) PO BID 12/01/2017 1 Inactive clindamycin HCl 300 mg capsule RxNorm: 682771 2 Capsule(s) PO TID 1 12/08/2017 Inactive Xanax 1 mg tablet RxNorm: 053032 1-2 Tablet(s) PO QHS as needed for sleep 11/28/2017 12/27/2017 Inactive Generic For:XANAX 1M G 10/11/2016 11:15:13 AM mupirocin 2 % topical ointment RxNorm: 437834 1 Application OTIC BI D 11/28/2017 08/09/2018 Inactive Xanax 1 mg tablet RxNorm: 865522 1-2 Tablet(s) PO QHS as needed for sleep 10/27/2017 11/25/2017 Inactive Generic For:XANAX 1M G 10/11/2016 11:15:13 AM Macrobid 100 mg capsule RxNorm: 798929 1 Capsule(s) PO BID 10/11/19 18 10/16/2017 Inactive Medrol (Walter) 4 mg tablets in a dose pack RxNorm: 772866 Tablet(s) PO take as directed 10/10/2017 11/16/2017 Inactive Xanax 1 mg tablet RxNorm: 636012 1-2 Tablet(s) PO QHS as needed for sleep 09/28/2017 10/26/2017 Inactive Generic For:XANAX 1M G 10/11/2016 11:15:13 AM Xanax 1 mg tablet RxNorm: 825183 1-2 Tablet(s) PO QHS as needed for sleep 08/30/2017 09/27/2017 Inactive Generic For:XANAX 1M G 10/11/2016 11:15:13 AM Xanax 1 mg tablet RxNorm: 150221 1-2 Tablet(s) PO QHS as needed for sleep 08/30/2017 08/29/2017 Inactive Generic For:XANAX 1M G 10/11/2016 11:15:13 AM Xanax 1 mg tablet RxNorm: 925980 1-2 Tablet(s) PO QHS as needed for sleep 08/01/2017 08/29/2017 Inactive Generic For:XANAX 1M G 10/11/2016 11:15:13 AM Xanax 1 mg tablet RxNorm: 869197 1-2 Tablet(s) PO QHS as needed for sleep 06/29/2017 2017 Inactive Generic For:XANAX 1M G 10/11/2016 11:15:13 AM Claritin-D 24 Hour 10 mg-240 mg tablet,extended release RxNo rm: 4595933 1 Tablet(s) PO QD 06/29/2017 2017 Inactive levothyroxine 88 mcg tablet RxNorm: 846704 1 Tablet(s) PO QD 201709/10/2017 Inactive Xanax 1 mg tablet RxNorm: 845670 1-2 Tablet(s) PO QHS as needed for sleep 05/26/2017 06/28/2017 Inactive Generic For:XANAX 1M G 10/11/2016 11:15:13 AM Claritin-D 24 Hour 10 mg-240 mg tablet,extended release RxNo rm: 6159688 1 Tablet(s) PO QD 05/26/2017 06/24/2017 Inactive bupropion HCl SR 100 mg tablet,12 hr sustained-release RxNor m: 164247 Tablet(s) Take 1 tablet by mouth two times daily 04/06/2017 12/31/2017 Inactive - Ref: [id number] Xanax 1 mg tablet RxNorm: 587330 1-2 Tablet(s) PO QHS as needed for sleep 03/24/2017 05/22/2017 Inactive Generic For:XANAX 1M G 10/11/2016 11:15:13 AM Medrol (Walter) 4 mg tablets in a dose pack RxNorm: 490573 Tablet(s) P O 02/16/2017 03/27/2017 Inactive Xanax 1 mg tablet RxNorm: 132449 Tablet(s) TAKE ONE T O TWO TABLETS BY MOUTH AT BEDTIME NEEDED 02/16/2017 03/17/2017 Inactive Generic For:XA NAX 1MG 10/11/2016 11:15:13 AM Claritin-D 24 Hour 10 mg-240 mg tablet,extended release RxNo rm: 2744437 1 Tablet(s) PO QD 02/16/2017 04/16/2017 Inactive cefdinir 300 mg capsule RxNorm: 536259 2 Capsule(s) PO QD 02/16/2017 02/25/2017 Inactive Celexa 40 mg tablet RxNorm: 482389 Tablet(s) Take 1 tablet by m outh daily 12/23/2016 09/18/2017 Inactive - Ref: [id number] Xanax 1 mg tablet RxNorm: 664225 Tablet(s) TAKE ONE T O TWO TABLETS BY MOUTH AT BEDTIME NEEDED 12/16/2016 01/14/2017 Inactive Generic For:XA NAX 1MG 10/11/2016 11:15:13 AM Xanax 1 mg tablet RxNorm: 432052 Tablet(s) TAKE ONE T O TWO TABLETS BY MOUTH AT BEDTIME NEEDED 11/18/2016 12/15/2016 Inactive Generic For:XA NAX 1MG 10/11/2016 11:15:13 AM Xanax 1 mg tablet RxNorm: 039007 TAKE ONE TO TWO TABL ETS BY MOUTH AT BEDTIME NEEDED 10/11/2016 11/17/2016 Inactive Generic For:XANA X 1MG 10/11/2016 11:15:13 AM Mobic 15 mg tablet RxNorm: 711277 1 Tablet(s) PO QD 09/06/20162016 Inactive Claritin-D 24 Hour 10 mg-240 mg tablet,extended release RxNo rm: 4585747 1 Tablet(s) PO QD 09/02/2016 11/30/2016 Inactive prednisone 20 mg tablet RxNorm: 141403 1 Tablet(s) PO T ID for 3 days then 1 po BID for 3 days then one daily for 3 days 08/16/2016 03/27/2017 Inactiv e cefdinir 300 mg capsule RxNorm: 682160 2 Capsule(s) PO QD 08/16/2016 09/05/2016 Inactive Xanax 1 mg tablet RxNorm: 665845 TAKE ONE TO TWO TABL ETS BY MOUTH AT BEDTIME NEEDED 08/05/2016 10/11/2016 Inactive Generic For:XANA X 1MG 08/05/2016 2:27:03 PM08/04/2016 4:15:22 PM Singulair 10 mg tablet RxNorm: 792052 1 Tablet(s) PO QHS 07/06/2016 0 09/03/2016 Inactive prednisone 20 mg tablet RxNorm: 279217 1 Tablet(s) PO T ID for 3 days then 1 po BID for 3 days then one daily for 3 days 06/15/2016 07/05/2016 Inactiv e Singulair 10 mg tablet RxNorm: 835593 1 Tablet(s) PO QHS 06/15/2016 0 07/05/2016 Inactive cefdinir 300 mg capsule RxNorm: 551745 2 Capsule(s) PO QD 06/15/2016 07/05/2016 Inactive Xanax 1 mg tablet RxNorm: 841637 1-2 Tablet(s) PO QHS 05/21/201610/2016 Inactive Claritin-D 24 Hour 10 mg-240 mg tablet,extended release RxNo rm: 8787524 1 Tablet(s) PO QD 04/09/2016 07/07/2016 Inactive Xanax 1 mg tablet RxNorm: 123394 1-2 Tablet(s) PO QHS 03/23/201604/29 Inactive levothyroxine 88 mcg tablet RxNorm: 822545 1 Tablet(s) PO QD 201606/13/2017 Inactive bupropion HCl SR 100 mg tablet,sustained-release RxNorm: 993 503 Take 1 tablet by mouth two times daily 03/15/2016 12/09/2016 Inactive - Ref: 20 [id number] Celexa 40 mg tablet RxNorm: 554016 Take 1 tablet by mouth daily 12/23/2016 Inactive - Ref: 543666141 Xanax 1 mg tablet RxNorm: 852034 1-2 Tablet(s) PO QHS 02/17/201603/01 Inactive levothyroxine 88 mcg tablet RxNorm: 983790 1 Tablet(s) PO QD 201502/22/2016 Inactive Xanax 1 mg tablet RxNorm: 998495 1-2 Tablet(s) PO QHS 11/25/201511/29 Inactive levothyroxine 88 mcg tablet RxNorm: 017395 1 Tablet(s) PO QD 201511/24/2015 Inactive temazepam 30 mg capsule RxNorm: 971153 1 Capsule(s) PO QHS 11/13/19 16 11/24/2015 Inactive Xanax 1 mg tablet RxNorm: 002232 1-2 Tablet(s) PO QHS 09/15/201510/29 Inactive Celexa 40 mg tablet RxNorm: 948035 1 Tablet(s) PO QD 1 Tablet(s ) PO QD 09/10/2015 09/16/2015 Inactive bupropion HCl SR 100 mg tablet,sustained-release RxNorm: 993 503 1 Tablet(s) PO BID 09/10/2015 09/23/2015 Inactive Xanax 1 mg tablet RxNorm: 399835 1-2 Tablet(s) PO QHS 09/10/201508/28 Inactive Xanax 1 mg tablet RxNorm: 335851 1-2 Tablet(s) PO QHS 08/11/201508/28 Inactive cyclobenzaprine 10 mg tablet RxNorm: 677286 1 Tablet(s) PO TID prn spasm 07/09/2015 11/23/2018 Inactive Celexa 40 mg tablet RxNorm: 042485 1 Tablet(s) PO QD 06/06/201508/03 Inactive Xanax 1 mg tablet RxNorm: 209824 1-2 Tablet(s) PO QHS 06/04/201505/2015 Inactive levothyroxine 88 mcg tablet RxNorm: 123361 1 Tablet(s) PO QD 201511/23/2015 Inactive Ceftin 500 mg tablet RxNorm: 778826 1 Tablet(s) PO BID 05/05/2015 Inactive Ceftin 500 mg tablet RxNorm: 198126 1 Tablet(s) PO BID 05/05/201507/2015 Inactive meloxicam 15 mg tablet RxNorm: 190447 1 Tablet(s) PO QD 04/16/2015 Inactive meloxicam 15 mg tablet RxNorm: 862497 1 Tablet(s) PO QD 04/16/2015 Inactive diclofenac sodium 75 mg tablet,delayed release RxNorm: 92261 6 1 Tablet(s) PO BID 04/04/2015 04/15/2015 Inactive diclofenac sodium 75 mg tablet,delayed release RxNorm: 23702 6 1 Tablet(s) PO BID 04/04/2015 04/03/2015 Inactive Tivorbex 40 mg capsule RxNorm: 0261385 1 Capsule(s) PO TID 03/24/19 16 04/02/2015 Inactive bupropion HCl SR 100 mg tablet,sustained-release RxNorm: 993 503 1 Tablet(s) PO BID 03/11/2015 09/06/2015 Inactive cyclobenzaprine 10 mg tablet RxNorm: 642895 1 Tablet(s) PO TID prn spasm 03/11/2015 07/08/2015 Inactive levothyroxine 88 mcg tablet RxNorm: 371616 1 Tablet(s) PO QD 201405/27/2015 Inactive Claritin-D 24 Hour 10 mg-240 mg tablet,extended release RxNo rm: 8794394 1 Tablet(s) PO QD 02/27/2015 05/27/2015 Inactive cefuroxime axetil 500 mg tablet RxNorm: 314019 1 Tablet(s) PO BID 1 03/12/2015 Inactive Celexa 40 mg tablet RxNorm: 804038 1 Tablet(s) PO QD 02/05/201504/05 Inactive levothyroxine 75 mcg tablet RxNorm: 231142 1 Tablet(s) PO QD 201402/26/2015 Inactive Celexa 40 mg tablet RxNorm: 514772 1 Tablet(s) PO QD 10/09/201402/04 Inactive Activella 1 mg-0.5 mg tablet RxNorm: 1441034 1 Tablet(s) PO QD 08/2802/26/2015 Inactive bupropion HCl SR 100 mg tablet,sustained-release RxNorm: 993 503 1 Tablet(s) PO BID 09/12/2014 03/10/2015 Inactive levothyroxine 75 mcg tablet RxNorm: 703874 1 Tablet(s) PO QD 201412/09/2014 Inactive levothyroxine 75 mcg tablet RxNorm: 959831 1 Tablet(s) PO QD 201409/11/2014 Inactive Celexa 40 mg tablet RxNorm: 784494 1 Tablet(s) PO QD 08/12/201410/08 Inactive Xanax 1 mg tablet RxNorm: 542656 1-2 Tablet(s) PO QHS 08/12/201409/28 Inactive Claritin-D 24 Hour 10 mg-240 mg tablet,extended release RxNo rm: 3756895 1 Tablet(s) PO QD 06/13/2014 09/10/2014 Inactive cyclobenzaprine 10 mg tablet RxNorm: 896360 1 Tablet(s) PO TID prn spasm 06/12/2014 02/26/2015 Inactive Xanax 1 mg tablet RxNorm: 128849 1-2 Tablet(s) PO QHS 05/09/201406/28 Inactive levothyroxine 75 mcg tablet RxNorm: 100002 1 Tablet(s) PO QD 201407/08/2014 Inactive cephalexin 500 mg capsule RxNorm: 012813 1 Capsule(s) PO QOD 201402/26/2015 Inactive simvastatin 10 mg tablet RxNorm: 696683 1 Tablet(s) PO QHS 04/10/19 15 06/12/2014 Inactive Xanax 1 mg tablet RxNorm: 953636 1-2 Tablet(s) PO QHS 04/10/201404/28 Inactive levothyroxine 75 mcg tablet RxNorm: 038418 1 Tablet(s) PO QD 201404/09/2014 Inactive levothyroxine 75 mcg capsule RxNorm: 539931 1 Capsule(s) PO QD 03/3104/10/2014 Inactive Activella 1 mg-0.5 mg tablet RxNorm: 1569725 1 Tablet(s) PO QD 03/0109/11/2014 Inactive bupropion HCl SR 100 mg tablet,sustained-release RxNorm: 993 503 1 Tablet(s) PO BID 03/04/2014 08/30/2014 Inactive Activella 1 mg-0.5 mg tablet RxNorm: 4174352 1 Tablet(s) PO QD 01/2803/18/2014 Inactive levothyroxine 75 mcg capsule RxNorm: 042907 1 Capsule(s) PO QD 12/2904/08/2014 Inactive simvastatin 10 mg tablet RxNorm: 796497 1 Tablet(s) PO QHS 01/10/20 14 04/08/2014 Inactive cyclobenzaprine 10 mg tablet RxNorm: 238929 1 Tablet(s) PO TID prn spasm 01/09/2014 04/08/2014 Inactive Cipro 500 mg tablet RxNorm: 064282 1 Tablet(s) PO BID 12/25/201304/2013 Inactive Cipro 500 mg tablet RxNorm: 726144 1 Tablet(s) PO BID 12/25/201311/29 Inactive bupropion HCl SR 100 mg tablet,sustained-release RxNorm: 993 503 1 Tablet(s) PO QAM 12/11/2013 03/03/2014 Inactive cephalexin 500 mg capsule RxNorm: 410202 1 Capsule(s) PO QOD 201304/09/2014 Inactive Xanax 1 mg tablet RxNorm: 550174 1-2 Tablet(s) PO QHS 10/15/201310/29 Inactive simvastatin 10 mg tablet RxNorm: 279859 1 Tablet(s) PO QHS 10/11/19 14 01/07/2014 Inactive Celexa 40 mg tablet RxNorm: 540613 Tablet(s) PO TAKE 1 TABLET BY MOUTH ONCE DAILY. 09/18/2013 09/17/2013 Inactive Xanax 1 mg tablet RxNorm: 476689 1-2 Tablet(s) PO QHS 08/13/201308/28 Inactive simvastatin 10 mg tablet RxNorm: 576102 1 Tablet(s) PO QHS 07/12/19 14 10/08/2013 Inactive bupropion HCl SR 100 mg tablet,sustained-release RxNorm: 993 503 1 Tablet(s) PO QAM 05/22/2013 11/17/2013 Inactive Pamelor 10 mg capsule RxNorm: 045914 1 Capsule(s) PO QHS for PLATA /sleep 05/22/2013 06/04/2013 Inactive Xanax 1 mg tablet RxNorm: 663508 1-2 Tablet(s) PO QHS 05/15/201305/29 Inactive Pamelor 10 mg capsule RxNorm: 379465 1 Capsule(s) PO QHS for PLATA /sleep 05/15/2013 05/21/2013 Inactive Xanax 1 mg tablet RxNorm: 428145 1 Tablet(s) PO QHS 04/27/20132013 Inactive Zovirax 800 mg tablet RxNorm: 828598 1 Tablet(s) PO TID 04/05/2013 Inactive Xanax 1 mg tablet RxNorm: 638589 1 Tablet(s) PO QHS 04/03/2013 No Sto p Date Active bupropion HCl SR 100 mg tablet,sustained-release RxNorm: 993 503 1 Tablet(s) PO QAM 03/26/2013 05/21/2013 Inactive bupropion HCl SR 100 mg tablet,sustained-release RxNorm: 993 503 1 Tablet(s) PO QAM 03/06/2013 03/25/2013 Inactive Pamelor 10 mg capsule RxNorm: 467031 1 Capsule(s) PO QHS for PLATA /sleep 02/14/2013 05/14/2013 Inactive levothyroxine 75 mcg capsule RxNorm: 508086 1 Capsule(s) PO QD 12/2901/08/2014 Inactive simvastatin 10 mg tablet RxNorm: 781382 1 Tablet(s) PO QHS TAKE 1 TABLET BY MOUTH ONCE DAILY AT BEDTIME. 01/15/2013 07/10/2013 Inactive cyclobenzaprine 10 mg tablet RxNorm: 251787 1 Tablet(s) PO TID prn spasm 12/25/2012 06/22/2013 Inactive Pamelor 10 mg capsule RxNorm: 998811 1 Capsule(s) PO QHS for PLATA /sleep 11/29/2012 02/14/2013 Inactive Celexa 40 mg tablet RxNorm: 687633 Tablet(s) PO TAKE 1 TABLET BY MOUTH ONCE DAILY. 10/11/2012 09/17/2013 Inactive simvastatin 10 mg tablet RxNorm: 238294 Tablet(s) PO TA KE 1 TABLET BY MOUTH ONCE DAILY AT BEDTIME. 10/11/2012 01/14/2013 Inactive simvastatin 10 mg tablet RxNorm: 492421 1 Tablet(s) PO QD 07/11/2012 10/08/2012 Inactive simvastatin 10 mg tablet RxNorm: 983667 1 Tablet(s) PO QD 04/14/2012 07/11/2012 Inactive simvastatin 10 mg tablet RxNorm: 731019 1 Tablet(s) PO QD 04/14/2012 04/13/2012 Inactive Celexa 40 mg tablet RxNorm: 459747 1 Tablet(s) PO QD 03/15/201209/10 Inactive cyclobenzaprine 10 mg tablet RxNorm: 919588 1 Tablet(s) PO TID prn spasm 02/02/2012 02/01/2012 Inactive cyclobenzaprine 10 mg tablet RxNorm: 849051 1 Tablet(s) PO TID prn spasm 02/02/2012 07/30/2012 Inactive Diflucan 100 mg Tab RxNorm: 564849 1 Tablet(s) PO QD 08/17/201108/22 Inactive Cipro 250 mg Tab RxNorm: 289691 1 Tablet(s) PO QD 08/17/2011 10/15/19 12 Inactive Levaquin 500 mg Tab RxNorm: 263541 1 Tablet(s) PO QD 08/17/201108/22 Inactive Pyridium 200 mg Tab RxNorm: 7802574 1 Tablet(s) PO TID 10/14/2010 Inactive may turn urine orange-red color. Cipro 500 mg Tab RxNorm: 388330 1 Tablet(s) PO BID 10/14/2010 011 Inactive levothyroxine 75 mcg capsule RxNorm: 992834 1 Capsule(s) PO QD 12/3001/14/2011 Inactive loratadine 10 mg tablet RxNorm: 658481 1 Tablet(s) PO QHS No Start Da te Active Vitamin D3 5,000 unit tablet RxNorm: 165893 1 Tablet(s) PO QD No Star t Date Active Nasacort 55 mcg nasal spray aerosol RxNorm: 3096603 2 Sp ray NASAL each nostril QHS No Start Date Active cyclobenzaprine 10 mg tablet RxNorm: 383090 1 Tablet(s) PO TID as needed No Start Date 11/22/2018 Inactive Vitamin D2 1,000 unit capsule RxNorm: 624863 3 Capsule(s) PO QD No Start Date 11/16/2017 Inactive diclofenac sodium 75 mg tablet,delayed release RxNorm: 43341 6 1 Tablet(s) PO BID No Start Date 03/16/2016 Inactive cephalexin 500 mg capsule RxNorm: 110732 1 Capsule(s) PO QOD No Sta rt Date 12/04/2013 Inactive cyclobenzaprine 10 mg tablet RxNorm: 080445 1 Tablet(s) PO QHS No S tart Date 02/01/2012 Inactive hydrocodone 5 mg-acetaminophen 500 mg tablet RxNorm: 474417 1 -2 Tablet(s) PO Q6H as needed No Start Date 08/09/2018 Inactive etodolac 400 mg tablet RxNorm: 090062 1 Tablet(s) PO TID No Start D ate 09/17/2018 Inactive Xanax 1 mg tablet RxNorm: 655694 1 Tablet(s) PO QHS No Start Date 04/2013 Inactive Vitamin D3 1,000 unit capsule RxNorm: 487551 1 Capsule(s) PO QD No Start Date 06/12/2014 Inactive estradiol 2 mg tablet RxNorm: 093926 1/2 Tablet(s) PO QD No Start D ate 03/05/2013 Inactive Celexa 40 mg tablet RxNorm: 348018 1 Tablet(s) PO QD No Start Date Inactive Activella 1 mg-0.5 mg tablet RxNorm: 1761769 1 Tablet(s) PO QD No S tart Date 07/10/2012 Inactive medroxyprogesterone 5 mg tablet RxNorm: 1250993 1/2 Tablet(s) PO QD No Start Date 03/05/2013 Inactive levothyroxine 88 mcg tablet RxNorm: 188240 1 Tablet(s) PO QD No Sta rt Date 02/26/2015 Inactive Keflex 500 mg capsule RxNorm: 200283 1 Capsule(s) PO PRN No Start D ate 08/16/2011 Inactive Activella 1 mg-0.5 mg tablet RxNorm: 6440541 1 Tablet(s) PO QHS No Start Date 03/27/2017 Inactive Activella 1 mg-0.5 mg tablet RxNorm: 6818970 1 Tablet(s) PO QD No S tart Date 02/06/2014 Inactive Flexeril 10 mg Tab RxNorm: 251021 1 Tablet(s) PO TID No Start Date Inactive prn spasm simvastatin 10 mg tablet RxNorm: 553876 1 Tablet(s) PO QD No Start Date 04/13/2012 Inactive Medication Administered No Medication Administered data Immunizations Vaccine Codes Date Status Influenza CVX: 135 01/16/2019 Complete Pneumococcal CVX: 133 01/16/2019 Complete Results No Results data Procedures Procedure Codes Date FLU VACC PRSV FREE INC ANTIG 65 AND OLDER CPT-4: 36484 01/16/2019 FLU VACC PRSV FREE INC ANTIG 65 AND OLDER CPT-4: 22149 01/16/2019 PNEUMOCOCCAL VACC 13 NARESH IM CPT-4: 64113 01/16/2019 SKIN FUNGI CULTURE CPT-4: 51304 01/16/2019 IMMUNIZATION ADMIN CPT-4: 34144 01/16/2019 IMMUNIZATION ADMIN EACH ADD CPT-4: 31131 01/16/2019 THER/PROPH/DIAG INJ SC/IM CPT-4: 03493 01/17/2018 KETOROLAC TROMETHAMINE INJ CPT-4: J1885 01/17/2018 THER/PROPH/DIAG INJ SC/IM CPT-4: 19401 01/17/2018 PROMETHAZINE HCL INJECTION CPT-4: J2550 01/17/2018 URINALYSIS NONAUTO W/O SCOPE CPT-4: 92363 12/29/2017 URINE CULTURE/ COLONY COUNT CPT-4: 31035 12/29/2017 THER/PROPH/DIAG INJ SC/IM CPT-4: 92464 11/30/2017 TRIAMCINOLONE ACET INJ NOS CPT-4: J3301 11/30/2017 DEXAMETHASONE SODIUM PHOS CPT-4: J1100 11/30/2017 CEFTRIAXONE SODIUM INJECTION CPT-4: J0696 11/29/2017 THER/PROPH/DIAG INJ SC/IM CPT-4: 50059 11/29/2017 CEFTRIAXONE SODIUM INJECTION CPT-4: J0696 11/28/2017 THER/PROPH/DIAG INJ SC/IM CPT-4: 13929 11/28/2017 URINALYSIS NONAUTO W/O SCOPE CPT-4: 27883 10/10/2017 THER/PROPH/DIAG INJ SC/IM CPT-4: 22300 10/10/2017 TRIAMCINOLONE ACET INJ NOS CPT-4: J3301 10/10/2017 DEXAMETHASONE SODIUM PHOS CPT-4: J1100 10/10/2017 CEFTRIAXONE SODIUM INJECTION CPT-4: J0696 10/10/2017 THER/PROPH/DIAG INJ SC/IM CPT-4: 57488 10/10/2017 URINE CULTURE/ COLONY COUNT CPT-4: 89550 10/10/2017 THER/PROPH/DIAG INJ SC/IM CPT-4: 04195 11/02/2016 KETOROLAC TROMETHAMINE INJ CPT-4: J1885 11/02/2016 THER/PROPH/DIAG INJ SC/IM CPT-4: 94692 06/15/2016 TRIAMCINOLONE ACET INJ NOS CPT-4: J3301 06/15/2016 DEXAMETHASONE SODIUM PHOS CPT-4: J1100 06/15/2016 THER/PROPH/DIAG INJ SC/IM CPT-4: 46623 04/09/2016 KETOROLAC TROMETHAMINE INJ CPT-4: J1885 04/09/2016 PROMETHAZINE HCL INJECTION CPT-4: J2550 04/09/2016 EXC TR-EXT B9+ERASMO 0.5 CM< CPT-4: 39472 06/12/2015 URINALYSIS NONAUTO W/O SCOPE CPT-4: 25990 05/05/2015 URINE CULTURE/ COLONY COUNT CPT-4: 19901 05/05/2015 URINALYSIS NONAUTO W/O SCOPE CPT-4: 75686 03/24/2015 URINALYSIS NONAUTO W/O SCOPE CPT-4: 45388 02/27/2015 URINE CULTURE/ COLONY COUNT CPT-4: 98376 02/27/2015 THER/PROPH/DIAG INJ SC/IM CPT-4: 79637 04/18/2014 KETOROLAC TROMETHAMINE INJ CPT-4: J1885 04/18/2014 THER/PROPH/DIAG INJ SC/IM CPT-4: 86812 06/05/2013 TRIAMCINOLONE ACET INJ NOS CPT-4: J3301 06/05/2013 THER/PROPH/DIAG INJ SC/IM CPT-4: 08344 11/29/2012 KETOROLAC TROMETHAMINE INJ CPT-4: J1885 11/29/2012 URINALYSIS NONAUTO W/O SCOPE CPT-4: 95325 07/11/2012 URINE CULTURE/ COLONY COUNT CPT-4: 14447 07/11/2012 OCCULT BLOOD FECES CPT-4: 29803 02/17/2012 URINALYSIS NONAUTO W/O SCOPE CPT-4: 09161 08/27/2011 URINE CULTURE/ COLONY COUNT CPT-4: 39237 08/27/2011 URINALYSIS NONAUTO W/O SCOPE CPT-4: 28223 08/17/2011 URINE CULTURE/ COLONY COUNT CPT-4: 72730 08/17/2011 URINALYSIS NONAUTO W/O SCOPE CPT-4: 45036 12/28/2010 URINE CULTURE/ COLONY COUNT CPT-4: 48232 12/28/2010 URINALYSIS NONAUTO W/O SCOPE CPT-4: 15877 11/09/2010 URINE CULTURE/ COLONY COUNT CPT-4: 81912 11/09/2010 URINALYSIS NONAUTO W/O SCOPE CPT-4: 49911 10/29/2010 URINE CULTURE/ COLONY COUNT CPT-4: 06546 10/29/2010 URINE CULTURE/ COLONY COUNT CPT-4: 82802 10/14/2010 URINALYSIS NONAUTO W/O SCOPE CPT-4: 72427 10/14/2010 Vital Signs Date Vital 04/10/2019 Blood Pressure 1: 92/56 Code: 8480-6 Heart Rate 1: 68 bpm Respiratory Rate: 20 bpm SpO2: 98% Temperature: 36.9 (C) / 98.4 (F) Weight: 120 lbs 02/14/2019 Blood Pressure 1: 112/74 Code: 8480-6 Heart Rate 1: 80 bpm Respiratory Rate: 18 bpm Temperature: 36.6 (C) / 97.9 (F) Weight: 124 lbs 01/16/2019 Blood Pressure 1: 122/74 Code: 8480-6 BMI: 22.0 Code: 16431-8 Heart Rate 1: 72 bpm Height: 5'3" [...] 1: 126/72 Code: 8480-6 BMI: 22.7 Code: 67110-5 Heart Rate 1: 72 bpm Height: 5'3" [...] 1: 112/70 Code: 8480-6 BMI: 22.0 Code: 54562-0 Heart Rate 1: 80 bpm Height: 5'3" [...] 1: 122/64 Code: 8480-6 BMI: 21.4 Code: 04782-2 Heart Rate 1: 88 bpm Height: 5'3" Respiratory Rate: 22 bpm SpO2: 96% Tempera ture: 36.8 (C) / 98.2 (F) Weight: 121 lbs 06/22/2017 Blood Pressure 1: 124/78 Code: 8480-6 BMI: 21.6 Code: 38601-2 Heart Rate 1: 76 bpm Height: 5'3" Respiratory Rate: 20 bpm Temperature: 36 .8 (C) / 98.3 (F) Weight: 122 lbs 03/28/2017 Blood Pressure 1: 92/60 Code: 8480-6 BMI: 20.4 C ode: 69939-5 Heart Rate 1: 72 bpm Height: 5'3" Respiratory Rate: 20 bpm Temperature: 36 .9 (C) / 98.4 (F) Weight: 115 lbs 02/16/2017 Blood Pressure 1: 106/70 Code: 8480-6 BMI: 21.3 Code: 26619-8 Heart Rate 1: 82 bpm Height: 5'3" Respiratory Rate: 22 bpm SpO2: 97% Tempera ture: 36.1 (C) / 97.0 (F) Weight: 120 lbs 09/06/2016 Blood Pressure 1: 118/64 Code: 8480-6 BMI: 22.7 Code: 08605-4 Heart Rate 1: 78 bpm Height: 5'3" Respiratory Rate: 20 bpm SpO2: 98% Tempera ture: 36.2 (C) / 97.2 (F) Weight: 128 lbs 08/16/2016 Blood Pressure 1: 118/78 Code: 8480-6 BMI: 22.1 Code: 21140-7 Heart Rate 1: 78 bpm Height: 5'3" Respiratory Rate: 20 bpm SpO2: 97% Tempera ture: 36.2 (C) / 97.1 (F) Weight: 125 lbs 07/19/2016 Blood Pressure 1: 116/68 Code: 8480-6 BMI: 22.5 Code: 04082-7 Heart Rate 1: 76 bpm Height: 5'3" Respiratory Rate: 20 bpm Temperature: 36 .8 (C) / 98.2 (F) Weight: 127 lbs 07/06/2016 Blood Pressure 1: 106 Code: 8480-6 BMI: 22.5 Code: 29019-7 Heart Rate 1: 72 bpm Height: 5'3" Respiratory Rate: 20 bpm SpO2: 97% Tempera ture: 36.8 (C) / 98.2 (F) Weight: 127 lbs 06/15/2016 Blood Pressure 1: 136/76 Code: 8480-6 BMI: 22.9 Code: 55192-2 Heart Rate 1: 74 bpm Height: 5'3" Respiratory Rate: 18 bpm SpO2: 98% Tempera ture: 36.4 (C) / 97.6 (F) Weight: 129 lbs 04/09/2016 Blood Pressure 1: 124/78 Code: 8480-6 BMI: 23.0 Code: 57494-5 Heart Rate 1: 86 bpm Height: 5'3" Respiratory Rate: 20 bpm SpO2: 96% Tempera ture: 36.5 (C) / 97.7 (F) Weight: 130 lbs 03/17/2016 Blood Pressure 1: 116/74 Code: 8480-6 BMI: 23.4 Code: 86859-1 Heart Rate 1: 84 bpm Height: 5'3" Respiratory Rate: 20 bpm SpO2: 97% Tempera ture: 36.8 (C) / 98.3 (F) Weight: 132 lbs 11/13/2015 Blood Pressure 1: 124/78 Code: 8480-6 BMI: 23.4 Code: 90958-0 Heart Rate 1: 88 bpm Height: 5'3" Respiratory Rate: 24 bpm SpO2: 98% Tempera ture: 36.8 (C) / 98.2 (F) Weight: 132 lbs 06/12/2015 Blood Pressure 1: 126/78 Code: 8480-6 BMI: 23.6 Code: 72094-7 Heart Rate 1: 80 bpm Height: 5'3" Respiratory Rate: 20 bpm Temperature: 36 .9 (C) / 98.4 (F) Weight: 133 lbs 04/22/2015 Blood Pressure 1: 126/68 Code: 8480-6 BMI: 23.6 Code: 18874-4 Heart Rate 1: 80 bpm Height: 5'3" Respiratory Rate: 20 bpm Temperature: 36 .6 (C) / 97.9 (F) Weight: 133 lbs 03/24/2015 Blood Pressure 1: 116/66 Code: 8480-6 BMI: 22.9 Code: 42526-9 Heart Rate 1: 74 bpm Height: 5'3" Respiratory Rate: 20 bpm Temperature: 36 .4 (C) / 97.6 (F) Weight: 129 lbs 02/27/2015 Blood Pressure 1: 106/64 Code: 8480-6 BMI: 22.7 Code: 80700-7 Heart Rate 1: 74 bpm Height: 5'3" Respiratory Rate: 20 bpm Temperature: 36 .8 (C) / 98.2 (F) Weight: 128 lbs 06/13/2014 Blood Pressure 1: 104/66 Code: 8480-6 BMI: 22.7 Code: 88553-0 Heart Rate 1: 84 bpm Height: 5'3" Respiratory Rate: 20 bpm Temperature: 37 .0 (C) / 98.6 (F) Weight: 128 lbs 04/18/2014 Blood Pressure 1: 112/62 Code: 8480-6 BMI: 22.0 Code: 97194-7 Heart Rate 1: 82 bpm Height: 5'3" Respiratory Rate: 18 bpm Temperature: 36 .4 (C) / 97.6 (F) Weight: 124 lbs 12/05/2013 Blood Pressure 1: 106/70 Code: 8480-6 BMI: 23.7 Code: 88780-8 Heart Rate 1: 84 bpm Height: 5'3" [...] 1: 126/88 Code: 8480-6 BMI: 22.3 Code: 32035-4 Heart Rate 1: 96 bpm Height: 5'4" Respiratory Rate: 20 bpm Temperature: 37 .7 (C) / 99.9 (F) Weight: 130 lbs 11/29/2012 Blood Pressure 1: 122/76 Code: 8480-6 BMI: 23.0 Code: 28123-9 Heart Rate 1: 84 bpm Height: 5'4" Respiratory Rate: 20 bpm Temperature: 36 .9 (C) / 98.4 (F) Weight: 134 lbs 09/26/2012 Blood Pressure 1: 114/76 Code: 8480-6 BMI: 23.0 Code: 29741-7 Heart Rate 1: 84 bpm Height: 5'4" Respiratory Rate: 20 bpm Temperature: 37 .3 (C) / 99.1 (F) Weight: 134 lbs 07/11/2012 Blood Pressure 1: 126/78 Code: 8480-6 BMI: 23.7 Code: 30863-9 Heart Rate 1: 76 bpm Height: 5'4" Respiratory Rate: 20 bpm Temperature: 37 .1 (C) / 98.7 (F) Weight: 138 lbs 02/02/2012 Blood Pressure 1: 108/70 Code: 8480-6 BMI: 23.2 Code: 69481-5 Heart Rate 1: 88 bpm Height: 5'4" Respiratory Rate: 20 bpm Temperature: 36 .4 (C) / 97.6 (F) Weight: 135 lbs 08/17/2011 Blood Pressure 1: 108/70 Code: 8480-6 BMI: 23.2 Code: 75354-0 Heart Rate 1: 72 bpm Height: 5'4" Respiratory Rate: 20 bpm Temperature: 36 .8 (C) / 98.2 (F) Weight: 135 lbs 10/14/2010 Blood Pressure 1: 120/72 Code: 8480-6 BMI: 23.4 Code: 02546-2 Heart Rate 1: 78 bpm Height: 5'3" Temperature: 36.9 (C) / 98.5 (F) Weight: 132 lbs Functional Status No Functional Status data Reason For Visit Reason For Visit Effective Dates Notes hernia 04/10/2019 Medication Monitoring 02/14/2019 follow up [...] dysuria. Encounters Encounter Performer Location Codes Date ([id number]) OFFICE/OUTPATIENT VISIT EST Diagnosis: Ventral hernia[ICD10: K43.9] Diagnosis: Incisional hernia[ICD10: K43.2] Alexandra CARROLL [facility] CPT-4: 09474 04/10/2019 ([id number]) OFFICE/OUTPATIENT VISIT EST Diagnosis: Insomnia[ICD10: G47.00] Diagnosis: Thrombocytosis[ICD10: D47.3] Alexandra [facility]ARROLL [facility] CPT-4: 84108 02/14/2019 ([id number]) OFFICE/OUTPATIENT VISIT EST Diagnosis: Small bowel obstruction[ICD10: K56.609] Diagnosis: FLU VACCINE[ICD10: Z23] Diagnosis: PNEUMOCOCCAL VACCINE[ICD10: Z23] Diagnosis: Onychomycosis[ICD10: B35.1] Alexandra KUNZ [facility] CPT-4: 70573 01/16/2019 ([id number]) OFFICE/OUTPATIENT VISIT EST Diagnosis: Diarrhea, unspecified[ICD10: R19.7] Diagnosis: Radiculopathy, lumbosacral region[ICD10: M54.17] Alexandra [facility]LL [facility] CPT-4: 62470 09/18/2018 OFFICE/OUTPATIENT VISIT EST Diagnosis: Other intervertebral disc degeneration, lumbar region[ICD10: M51.36] Diagnosis: Sacroiliitis, not elsewhere classified[ICD10: M46.1] Diagnosis: Obstructive sleep apnea (adult) (pediatric)[ICD10: G47.33] Alexandra [facility]LL [facility] CPT-4: 33350 08/10/2018 ([id number]) OFFICE/OUTPATIENT VISIT EST Diagnosis: Fracture of unspecified part of left clavicle, subsequent encounter for fracture with routine healing[ICD10: S42.002D] Diagnosis: Cervicalgia[ICD10: M54.2] Diagnosis: Radiculopathy, lumbosacral region[ICD10: M54.17] Alexandra [facility]ARROLL [facility] CPT-4: 42730 03/27/2018 ([id number]) OFFICE/OUTPATIENT VISIT EST Diagnosis: Fracture of unspecified part of left clavicle, subsequent encounter for fracture with routine healing[ICD10: S42.002D] Diagnosis: Other intervertebral disc degeneration, lumbar region[ICD10: M51.36] Diagnosis: Unspecified fracture of first thoracic vertebra, subsequent encounter for fracture with routine healing[ICD10: S22.019D] Diagnosis: Unspecified fracture of second thoracic vertebra, subsequent encounter for fracture with routine healing[ICD10: S22.029D] Alexandra CARROLL [employer] [facility] CPT-4: 11235 02/23/2018 ([id number]) OFFICE/OUTPATIENT VISIT EST Diagnosis: Fracture of unspecified part of left clavicle, subsequent encounter for fracture with routine healing[ICD10: S42.002D] Diagnosis: Unspecified fracture of first thoracic vertebra, subsequent encounter for fracture with routine healing[ICD10: S22.019D] Diagnosis: Unspecified fracture of second thoracic vertebra, subsequent encounter for fracture with routine healing[ICD10: S22.029D] Alexandra Crawford [employer] CPT-4: 19123 01/24/2018 ([id number]) OFFICE/OUTPATIENT VISIT EST Diagnosis: Migraine, unspecified, not intractable, without status migrainosus[ICD10: G43.909] Alexandra [facility]DE [facility] [employer]ALEX[employer]ony[facility] CPT - 4: 70397 01/17/2018 ([id number]) OFFICE/OUTPATIENT VISIT EST Diagnosis: Hematuria, unspecified[ICD10: R31.9] Diagnosis: Other intervertebral disc degeneration, lumbar region[ICD10: M51.36] Diagnosis: Retention of urine, unspecified[ICD10: R33.9] Alexandra FORDE [facility] [employer] CPT-4: 45607 12/29/2017 OFFICE/OUTPATIENT VISIT EST Diagnosis: Fracture of [...] Low back pain[ICD10: M54.5] Alexandra KUNZ DO [facility] CPT-4: 47073 12/06/2017 ([id number]) OFFICE/OUTPATIENT VISIT EST Diagnosis: Cellulitis of right upper limb[ICD10: L03.113] Diagnosis: Allergy status to other antibiotic agents status[ICD10: Z88.1] Vandana CARROLL DO [facility] CPT-4: 37425 12/01/2017 ([id number]) OFFICE/OUTPATIENT VISIT EST Diagnosis: Cellulitis of right upper limb[ICD10: L03.113] Diagnosis: Allergy status to other antibiotic agents status[ICD10: Z88.1] Vandana CARROLL DO [facility] CPT-4: 50298 11/30/2017 ([id number]) OFFICE/OUTPATIENT VISIT EST Diagnosis: Cellulitis of right upper limb[ICD10: L03.113] Vandana CARROLL DO [facility] CPT-4: 59809 11/29/2017 ([id number]) OFFICE/OUTPATIENT VISIT EST Diagnosis: Cellulitis of right upper limb[ICD10: L03.113] Vandana CARROLL DO [facility] CPT-4: 20854 11/28/2017 ([id number]) OFFICE/OUTPATIENT VISIT EST Diagnosis: Other intervertebral disc degeneration, lumbar region[ICD10: M51.36] Diagnosis: Other retention of urine[ICD10: R33.8] Diagnosis: Primary insomnia[ICD10: F51.01] Diagnosis: Other spondylosis, site unspecified[ICD10: M47.899] Alexandra CARROLL DO [facility] CPT-4: 42222 11/17/2017 ([id number]) OFFICE/OUTPATIENT VISIT EST Diagnosis: Radiculopathy, lumbosacral region[ICD10: M54.17] Diagnosis: Other retention of urine[ICD10: R33.8] Diagnosis: Urinary tract infection, site not specified[ICD10: N39.0] Vandana CARROLL DO [facility] CPT-4: 77854 10/10/2017 ([id number]) PREV VISIT EST AGE 40-64 Diagnosis: Encounter for general adult medical examination without abnormal findings[ICD10: Z00.00] Diagnosis: Other intervertebral disc degeneration, lumbar region[ICD10: M51.36] Diagnosis: Hypothyroidism, unspecified[ICD10: E03.9] Diagnosis: Mixed hyperlipidemia[ICD10: E78.2] Alexandra [facility]OLL [facility] CPT-4: 28426 06/22/2017 ([id number]) OFFICE/OUTPATIENT VISIT EST Diagnosis: URI, ACUTE[ICD10: J06.9] Alexandra PAREKH [facility] CPT-4: 80256 03/28/2017 OFFICE/OUTPATIENT VISIT EST Diagnosis: Acute sinusitis, unspecified[ICD10: J01.90] [facility]: 48276 02/16/2017 ([id number]) OFFICE/OUTPATIENT VISIT EST Diagnosis: Migraine, unspecified, not intractable, without status migrainosus[ICD10: G43.909] [facility] CPT - 4: 03182 11/02/2016 ([id number]) OFFICE/OUTPATIENT VISIT EST Diagnosis: Pain in thoracic spine[ICD10: M54.6] Diagnosis: Chondrocostal junction syndrome [Tietze][ICD10: M94.0] [facility] CPT-[facility]: 89969 09/06/2016 OFFICE/OUTPATIENT VISIT EST Diagnosis: Acute sinusitis, unspecified[ICD10: J01.90] Vidya Manuel [facility] CPT-4: 69748 08/16/2016 ([id number]) OFFICE/OUTPATIENT VISIT EST Diagnosis: Primary insomnia[ICD10: F51.01] Diagnosis: Cramp and spasm[ICD10: R25.2] Diagnosis: Major depressive disorder, single episode, mild[ICD10: F32.0] [facility] CPT-4: 31132 07/19/2016 ([id number]) OFFICE/OUTPATIENT VISIT EST Diagnosis: Obstructive sleep apnea (adult) (pediatric)[ICD10: G47.33] Diagnosis: Other fatigue[ICD10: R53.83] Diagnosis: Allergic rhinitis due to pollen[ICD10: J30.1] Diagnosis: Headache[ICD10: R51] Alexandra SHAFFERLINE Ty [facility]OLL [facility] CPT-4: 76062 07/06/2016 ([id number]) OFFICE/OUTPATIENT VISIT EST Diagnosis: Acute recurrent sinusitis, unspecified[ICD10: J01.91] Diagnosis: Allergic rhinitis due to pollen[ICD10: J30.1] Alexandra Danealexjavier ALEXANDRA MacyAri [facility] CPT-4: 71917 06/15/2016 ([id number]) OFFICE/OUTPATIENT VISIT EST Diagnosis: Migraine, unspecified, not intractable, without status migrainosus[ICD10: G43.909] Diagnosis: Allergic rhinitis, unspecified[ICD10: J30.9] Nae MARINQUELINE MacyAri [facility] CPT-4: 75783 04/09/2016 ([id number]) OFFICE/OUTPATIENT VISIT EST Diagnosis: Hypothyroidism, unspecified[ICD10: E03.9] Diagnosis: Other fatigue[ICD10: R53.83] Diagnosis: Mixed hyperlipidemia[ICD10: E78.2] Diagnosis: Major depressive disorder, single episode, mild[ICD10: F32.0] Alexandra Glen SHAFFERLINE MacyAri [facility] CPT-4: 65656 03/17/2016 ([id number]) OFFICE/OUTPATIENT VISIT EST Diagnosis: Insomnia, unspecified[ICD10: G47.00] Diagnosis: Encounter for therapeutic drug level monitoring[ICD10: Z51.81] Nae FORDE MacyAri [facility] CPT-4: 10912 11/13/2015 ([id number]) OFFICE/OUTPATIENT VISIT EST Diagnosis: Hematuria, unspecified[ICD10: R31.9] Alexandra Danejames MARINQUE BLAKE Ty CARROLL [employer] [facility] CPT-4: 06893 05/05/2015 ([id number]) OFFICE/OUTPATIENT VISIT EST Diagnosis: Other intervertebral disc degeneration, lumbar region[ICD10: M51.36] Diagnosis: Radiculopathy, lumbosacral region[ICD10: M54.17] Alexandra FORDE MacyAri [facility] CPT-4: 59338 04/22/2015 ([id number]) OFFICE/OUTPATIENT VISIT EST Diagnosis: Low back pain[ICD10: M54.5] Diagnosis: Recurrent and persistent hematuria with unspecified morphologic changes[ICD10: N02.9] Alexandra MARINQUELINE MacyAri [facility] CPT-4: 80553 03/24/2015 ([id number]) OFFICE/OUTPATIENT VISIT EST Diagnosis: Acute sinusitis, unspecified[ICD10: J01.90] Diagnosis: Headache[ICD10: R51] Diagnosis: Retention of urine, unspecified[ICD10: R33.9] Diagnosis: Hypothyroidism, unspecified[ICD10: E03.9] Alexandra Danejames FORDE MacyAri GLEN SALGUERO [facility] CPT-4: 30177 02/27/2015 ([id number]) PREV VISIT EST AGE 40-64 Diagnosis: ROUTINE MEDICAL EXAM[ICD9: V70.0] Diagnosis: HYPOTHYROIDISM[ICD9: 244.9] Diagnosis: HYPERLIPIDEMIA NEC/NOS[ICD9: 272.4] Alexandra CORDOBA MacyAri GLEN [employer] [facility] CPT-4: 92278 06/13/2014 ([id number]) OFFICE/OUTPATIENT VISIT EST Diagnosis: CEPHALGIA[ICD9: 784.0] Diagnosis: Nausea[ICD9: 787.02] Shalini Romeo FORDE MacyAri [facility] CPT-4: 05930 04/18/2014 ([id number]) OFFICE/OUTPATIENT VISIT EST Diagnosis: INSOMNIA NOS[ICD9: 780.52] Diagnosis: Complicated grieving[ICD9: 309.0] Alexandra Louise MacyAri GLEN [employer] [facility] CPT-4: 53580 12/05/2013 ([id number]) OFFICE/OUTPATIENT VISIT EST Diagnosis: Muscle twitch[ICD9: 781.0] Diagnosis: ALLERGIC RHINITIS[ICD9: 477.9] Alexandra Chapman GLEN [employer] [facility] CPT-4: 35684 06/05/2013 ([id number]) OFFICE/OUTPATIENT VISIT EST Diagnosis: DEPRESSIVE DISORDER NEC[ICD9: 311] Alexandra Crawford GLEN [employer] [facility] CPT-4: 97814 05/22/2013 OFFICE/OUTPATIENT VISIT EST Diagnosis: Shingles[ICD9: 053.9] Alexandra [facility]OLL [facility] CPT-4: 29739 04/05/2013 ([id number]) OFFICE/OUTPATIENT VISIT EST Diagnosis: DEPRESSIVE DISORDER NEC[ICD9: 311] Alexandra Danealexjavier [facility]ARROLL [facility] CPT-4: 56963 03/26/2013 ([id number]) OFFICE/OUTPATIENT VISIT EST Diagnosis: Complicated grieving[ICD9: 309.0] Alexandra Velaalexjavier [facility]ARROLL [facility] CPT-4: 16030 03/06/2013 ([id number]) OFFICE/OUTPATIENT VISIT EST Diagnosis: CEPHALGIA, TENSION[ICD9: 307.81] Diagnosis: MIGRAINE NOS/NOT INTRCBL[ICD9: 346.90] Diagnosis: Cervicalgia[ICD9: 723.1] Alexandra PLATT IZABELLA [facility] CPT-4: 14564 11/29/2012 ([id number]) OFFICE/OUTPATIENT VISIT EST Diagnosis: Jaw pain[ICD9: 784.92] Diagnosis: Shoulder pain[ICD9: 719.41] Diagnosis: Family history of premature coronary artery disease[ICD9: V17.3] Alexandra [facility]ARROLL [facility] CPT-4: 83206 09/26/2012 ([id number]) OFFICE/OUTPATIENT VISIT EST Diagnosis: ABDOMINAL PAIN[ICD9: 789.00] Diagnosis: Constipation[ICD9: 564.00] Diagnosis: Hematuria[ICD9: 599.70] Alexandra BURLESON [facility] CPT-4: 29881 07/11/2012 ([id number]) OFFICE/OUTPATIENT VISIT EST Diagnosis: ANEMIA NOS[ICD9: 285.9] Alexandra BURLESON [facility] CPT-4: 05104 02/17/2012 ([id number]) PREV VISIT EST AGE 40-64 Diagnosis: ROUTINE MEDICAL EXAM[ICD9: V70.0] Diagnosis: HYPOTHYROIDISM[ICD9: 244.9] Diagnosis: HYPERLIPIDEMIA NEC/NOS[ICD9: 272.4] Diagnosis: Obstructive sleep apnea[ICD9: 327.23] Alexandra Carroll NICOLASA CARROLL DO [facility] CPT-4: 60319 02/02/2012 ([id number]) OFFICE/OUTPATIENT VISIT EST Diagnosis: URINARY TRACT INFECTION[ICD9: 599.0] Alexandra CARROLL DO [facility] CPT-4: 97503 08/27/2011 ([id number]) OFFICE/OUTPATIENT VISIT EST Diagnosis: URINARY TRACT INFECTION[ICD9: 599.0] Diagnosis: ACUTE CYSTITIS[ICD9: 595.0] Alexandrateja Burlesonjavier ALEXANDRA S. O ZE DO [facility] CPT-4: 06611 08/17/2011 OFFICE/OUTPATIENT VISIT EST Diagnosis: URINARY TRACT INFECTION[ICD9: 599.0] Steph Andrés EDMUND BURLESONER DO [facility] CPT-4: 21165 10/14/2010 Plan of Care Planned Activity Notes Codes Status Date Visit Diagnosis Plan: Ventral hernia Discussion: See s urgery for repair Discussed signs of incarceration or strangulation then is to report to ER ICD-9 : 553.20 ICD-10 : K43.9 04/10/2019 [facility]ment[facility] [phone] [facility] [facility] left second message 04/10/19 at 10:20 ACUTE ILLNE SS 04/10/2019 Care Plan: Referral Order SNOMED-CT : 30 7644819 Pending 04/10/2019 Visit Diagnosis Plan: Thrombocytosis Discussion: [...] : G47.00 02/14/2019 Appointment: [facility] [phone] [facility] [facility] FOLLOW UP 02/14/2019 Appointment: Alexandra Carroll WPtel: [address] [place], [place] [phone] US CANCELED 02/12/2019 Visit Diagnosis Plan: Small bowel obstruction Discussi on: S/P surgery in September with postop complications of wound dehiscence ICD-9 : 560.9 ICD-10 : K56.609 01/16/2019 Visit Diagnosis Plan: Onychomycosis Discussion: Send n ail for culture ICD-9 : 110.1 ICD-10 : B35.1 01/16/2019 Appointment: Alexandra Carroll WPtel: [address] [place] [address] US MEDICATION REVIEW 01/16/2019 Appointment: Alexandra Carroll WPtel: [address] [place] [address] US CANCELED 12/12/2018 Visit Diagnosis Plan: Radiculopathy, lumbosacral regio n Discussion: Had left SI joint injection by Dr. Baig about 2 weeks ago and has fwup with him ICD-9 : 724.4 ICD-10 : M54.17 09/18/2018 Visit Diagnosis Plan: Diarrhea, unspecified Discussion : Due for updated colonoscopy ICD-9 : 787.91 ICD-10 : R19.7 09/18/2018 Appointment: Alexandra Carroll WPtel: [address] [place] [address] US PATIENT CONSULT 15 09/18/2018 Care Plan: Referral Order SNOMED-CT : 30 [id number] Pending 09/18/2018 Visit Diagnosis Plan: Sacroiliitis, not [...] 327.23 ICD-10 : G47.33 08/10/2018 Appointment: Alexandra Carrolltel: [address] [place], [place] [phone] US MEDICATION REVIEW 08/10/2018 Care Plan: Referral Order SNOMED-CT : 30 [id number] Pending 08/10/2018 Appointment: Alexandra Carroll WPtel: [address] [place], [place] [phone] US CANCELED 04/17/2018 Visit Diagnosis Plan: Fracture [...] : M54.17 03/27/2018 Appointment: Alexandra Carroll WPtel: [address] [place], [place] [phone] US FOLLOW UP 03/27/2018 Visit Diagnosis Plan: [...] : M51.36 02/23/2018 Appointment: Alexandra Carroll WPtel: [address] [place], [place] [phone] US FOLLOW UP 02/23/2018 Patient Education: gabapentin- [employer] Coupon [id number] [phone] [email or web address] Completed 02/23/2018 Visit Diagnosis Plan: Fracture of unspec ified part of left clavicle, subsequent encounter for fracture with routine healing Discussion: Hold on PT and do home stretches Trial of gabapentin Recheck 4 weeks ICD-9 : V54.11 ICD-10 : S42.002D 01/24/2018 Appointment: Alexandra Carroll WPtel: [address] [place] [address] US FOLLOW UP 01/24/2018 Visit Diagnosis Plan: Migraine, unspecif ied, not intractable, without status migrainosus Discussion: Toradol and phenergan given ICD-9 : 346.90 ICD-10 : G43.909 01/17/2018 Appointment: Alexandra Carroll WPtel: [address] [place] [address] ACUTE ILLNESS 01/17/2018 Visit Diagnosis Plan: Hematuria, [...] : R33.9 12/29/2017 Appointment: Alexandra Carroll WPtel: [address] [place] [address] ACUTE ILLNESS 12/29/2017 Care Plan: US EXAM PELVIC COMPLETE LOINC : 38639-2 Pending 12/29/2017 Care Plan: ECHO EXAM OF ABDOMEN LOINC : 09761-3 Pending 12/29/2017 Care Plan: Referral Order SNOMED-CT : 30 [id number] Pending 12/29/2017 Visit Diagnosis Plan: Fracture of unspec ified part of left clavicle, subsequent encounter for fracture with routine healing Discussion: Start PT in another 7-14 days Off work for the rest of this week then may return to part-time work on 12/12/17 Fwup in 4 weeks ICD-9 : V54.11 ICD-10 : S42.002D 12/06/2017 Appointment: Alexandra Carroll WPtel: [phone] [facility] FOLLOW UP 12/06/2017 Patient Education: Patient Medication [...] ICD-10 : Z88.1 12/01/2017 Appointment: Vandana Crowe [address] [place], [place] [phone] FOLLOW UP 12/01/2017 Patient Education: Patient Medication [...] : L03.113 11/30/2017 Appointment: Vandana Crowe [address] [facility] 11/30/2017 Patient Education: Patient Medication Summary [...] ICD-10 : L03.113 11/29/2017 Appointment: Vandana Crowe [address] [place], [place] [address] FOLLOW UP 11/29/2017 Patient Education: Patient Medication [...] L03.113 11/28/2017 Appointment: Vandana Crowe [address] [facility] ACUTE ILLNESS 11/28/2017 Patient Education: Patient [...] M47.899 11/17/2017 Appointment: Alex[facility]el[facility] [phone] [facility] MED[facility] REVIEW 11/17/2017 Patient Education: Patient Medication Summary Completed 11/17/2017 Care Plan: Referral Order SNOMED-CT : 30 [id number] Pending 11/17/2017 Patient Education: Patient Medication Summary Completed 10/12/2017 Care Plan: MRI LUMBAR SPINE W/O DYE LOIN C : 82378-5 Pending 10/12/2017 Care Plan: X-RAY EXAM L-S SPINE 2/3 VWS LOINC : 50680-9 Pending 10/11/2017 Visit Diagnosis Plan: Other retention [...] ICD-10 : M54.17 10/10/2017 Appointment: Vandana Crowe [address] [place], [place] [address] ACUTE ILLNESS 10/10/2017 Patient Education: Patient Medication Summary Completed 10/10/2017 Appointment: Vandana Crowe [address] [place], [place] [id number] ACUTE ILLNESS 08/01/2017 Visit Diagnosis Plan: Other intervertebral disc degene ration, lumbar region Discussion: Core strengtheing and inversion table and if worsening will need updated MRI ICD-9 : 722.52 ICD-10 : M51.36 06/22/2017 Visit Diagnosis Plan: Encounter for [facility] adult medical examination without abnormal findings Discussion: Lab dis ussed Follow Up: 6 months ICD-9 : V70.0 ICD-10 : Z00.00 06/22/2017 Appointment: Alexandra Carroll WPtel: [phone] [id number] Annual Well Visit 06/22/2017 Patient Education: Patient Medication Summary Completed 06/22/2017 Patient Education: Patient Medication Summary Completed 06/16/2017 Care Plan: COMPREHEN METABOLIC [place] : 37270-4 Pending 06/16/2017 Care Plan: ASSAY THYROID STIM HORMONE Pen ding 06/16/2017 Care Plan: ASSAY OF FREE THYROXINE Pendin g 06/16/2017 Care Plan: LIPID PANEL LOINC : [id number] Pending 06/16/2017 Care Plan: CBC Pending 06/16/2017 [...] Rest, Fluids... 03/28/2017 Appointment: Alexandra Carroll WPtel: [address] [place] [address] ACUTE ILLNESS 03/28/2017 Patient Education: Patient Medication Summary Completed 03/28/2017 Visit Diagnosis Plan: Acute sinusitis, unspecified Dis cussion: cefdinir and medrol dose pack prescribed to be taken as directed. tylenol/ibuprofen as needed. educated on importance of taking singulair or zyrtec daily to prevent worsening symptoms. keep hydrated. ICD-9 : 461.9 ICD-10 : J01.90 02/16/2017 Appointment: Vandana Crowe [address] [place] [address] ACUTE ILLNESS 02/16/2017 Patient Education: Patient Medication Summary Completed 02/16/2017 Appointment: Alexandra Carroll WPtel: [address] [place] [address] INJECTION 11/02/2016 Patient Education: Patient Medication Summary Completed 11/02/2016 Visit Diagnosis Plan: Pain in thoracic spine Discussio n: Increase flexeril to 10mg po BID Add Mobic 15mg po daily Towel stretch May see chiropractor to adjust ribs Notify if persists or worsening ICD-9 : 724.1 ICD-10 : M54.6 09/06/2016 Appointment: Alexandra Carroll WPtel: [address] [place] [address] ACUTE ILLNESS 09/06/2016 Patient Education: Patient Medication Summary Completed 09/06/2016 Visit Plan: Due to hx, ERx Cefdinir and Prednisone (discussed risks for both) Given bottle for nasal saline rinses Tylenol/Ibuprofen prn pain/fever Fluids/rest Discussed s/s of worsening, RTC if no improvement 08/16/2016 Appointment: Vidya Manuel WPtel: [address] [place] [address] ACUTE ILLNESS 08/16/2016 Patient Education: Patient Medication [...] Visit Diagnosis Plan: Primary insomnia Discussion: Con raeshiloh xanax at current dose--patient has been trying to decrease dose ICD-9 : 780.52 ICD-10 : F51.01 07/19/2016 Appointment: Alexandra Carroll [facility]Ptel[facility] 07/15 confirmed`sl FOLLOW UP 07/19/2016 Patient Education: [...] 07/06/2016 Appointment: Alexandra Carroll WPtel[facility] 07/05 confirmed-sp FOLLOW UP 07/06/2016 Patient [...] : J30.1 06/15/2016 Appointment: Alexandra Carroll WPtel: [address] [place], [place] [id number] 06/14 lm ~sl ACUTE ILLNESS 06/15/2016 Patient Education: Patient Medication Summary Completed 06/15/2016 Visit Diagnosis Plan: Migraine, unspecif ied, not intractable, without status migrainosus Discussion: Injection as above Drink ple nty of water No driving x 6 hours Rest No OTC nsaids today Follow up PRN Refill called of claritin-d ICD-9 : 346.90 ICD-10 : G43.909 04/09/2016 Appointment: Nae Mckay [address] [place] [address] ACUTE ILLNESS 04/09/2016 Patient Education: Patient Medication [...] : E78.2 03/17/2016 Appointment: Alexandra Carroll WPtel: [address] [place], [place] [id number] 03/16 nvm~sl 03/17 confirmed`sl FOLLOW UP 0 03/17/2016 Patient Education: Patient Medication Summary Completed 03/17/2016 Appointment: Alexandra Carroll WPtel: [address] [place] [address] 03/11 lm~sl 03/15lm `sl 03/15 confirmed`sl FOLLOW U P 03/15/2016 Visit Plan: Discussed labeled indication s for benzos. Since xanax is not labeled for sleep and she has never tried anything else, encouraged her to trial restoril(another benzo) since it is labeled for sleep. She agrees with this trial. Rx called to [facility] after cost comparison which is nearly the same robert. If working well, continue the m1lpzom office visits. Call if not working well, and will restart xanax at for sleep. 11/13/2015 Appointment: Nae Mckay [address] [place], [place] [id number] 11/11 confirmed~ FOLLOW UP 11/13/2015 Patient Education: Patient Medication Summary Completed 11/13/2015 Appointment: Alexandra Carroll WPtel: [address] [place], [place] [id number] Suture Removal 06/23/2015 Patient Education: Patient Medication Summary Completed 06/23/2015 Visit Plan: Removal of lesion above usin g 3-0 punch biopsy Return in 10 days for suture removal 06/12/2015 Appointment: Alexandra Carroll WPtel: [address] [place], [place] [id number] 06/10 lm ~ ACUTE ILLNESS 06/12/2015 Patient Education: Patient Medication Summary Completed 06/12/2015 Referral: Soy Garcia [facility]el[facility] Schedule patient around lunch time and 3 weeks from 04/22/2015 ~ Spoke with Kiesha at Dr. Sandoval [facility] and 04/24/15 and scheduled the patient ~ 04/24/15 Patient is informed~ 06/03 Patient canceled the appointment ~ Patient did not show up for scheduled appointment-sp Appoint ment Requested 05/21/2015 Appointment: Alexandra Carroll WPtel: [address] [place], [place] [id number] [facility] 05/05/2015 Patient Education: Patient Medication Summary Completed 05/05/2015 Visit Plan: Starts PT today Schedule wit h Dr. Garcia for epidural CT abdomen/pelvis results discussed Sees [employer] in April and will get checked then 04/22/2015 Appointment: Alexandra Carroll WPtel: [address] [place] [address] 04/21 confirmed~lb ACUTE ILLNESS 04/22/2015 Patient Education: Patient Medication Summary Completed 04/22/2015 Referral: Lincoln Hernandez WPtel: [address] [place] [address] Referral Initiated 04/10/2015 Patient Education: Patient Medication Summary Completed 04/09/2015 Visit Plan: Start with lumosacral spine x-ray--will likely need MRI of L/S spine x-ray Needs urology--has had to have bladder stretched in past Tivorbex 03/24/2015 Appointment: Alexandra Carroll WPtel: [address] [place] [address] 03/21/15 appt confirmed cn ACUTE ILLNESS 03/24 Patient Education: Patient Medication Summary Completed 03/24/2015 Visit Plan: Saline nasal flushes prn. Ty lenol/Motrin prn headache. Notify if persists/symptoms worsening. Cefuroxime to cover both sinuses and UTI Culture urine Check lab 02/27/2015 Appointment: Alexandra Carroll WPtel: [address] [place] [address] 02/26/15 vm to confirm and need new insu meri on file is inactive cn....02/27/15 appt confirmed cn ACUTE ILLNESS 015 Patient Education: Patient Medication Summary Completed 02/27/2015 Visit Plan: Lab discussed Stop simvastat in Check lipids in 6mos Continue all other meds at current dose Had Pap and Mammo 3 weeks ago 06/13/2014 Appointment: Alexandra Carroll WPtel: [address] [place] [address] Annual Well Visit 06/13/2014 Patient Education: Patient Medication Summary Completed 06/13/2014 Appointment: Shalini Walters WPtel: [address] [place] [address] ACUTE ILLNESS 04/18/2014 Patient Education: Patient Medication Summary Completed 04/18/2014 Visit Plan: Check lab in May then fwup Can try decreasing xanax to 1mg q HS with melatonin 5-10mg q HS 12/05/2013 Appointment: Alexandra Carrolltel: [address] [place] [address] 12/04 FOLLOW UP 12/05/2013 Patient Education: Patient Medication Summary Completed 12/05/2013 Appointment: Alexandra Carroll WPtel: [address] [place] [address] FOLLOW UP 06/05/2013 Patient Education: Patient Medication Summary Completed 06/05/2013 Appointment: Alexandra Carrolltel: [address] [place] [address] FOLLOW UP 05/22/2013 Patient Education: Patient Medication Summary Completed 05/22/2013 Visit Plan: Zovirax for 2wks Notify if p ain worsens or if persists 04/05/2013 Appointment: Alexandra Carroll WPtel: [address] [place] [address] ACUTE ILLNESS 04/05/2013 Patient Education: Patient Medication Summary Completed 04/05/2013 Visit Plan: Keep Wellbutrin at current d ose Pt did see for counseling 03/26/2013 Appointment: Alexandra Carrolltel: [address] [place] [address] ACUTE ILLNESS 03/26/2013 Patient Education: Patient Medication Summary Completed 03/26/2013 Visit Plan: Continue citalopram at curre nt dose Increase xanax to 1-2mg q HS for sleep Add Wellbutrin Sr 100mg q AM Start Counseling 03/06/2013 Appointment: Alexandra Carrolltel: [address] [place] [address] ACUTE ILLNESS 03/06/2013 Patient Education: Patient Medication Summary Completed 03/06/2013 Appointment: Alexandra Carrolltel: [address] [place] [address] ACUTE ILLNESS 11/29/2012 Patient Education: Patient Medication Summary Completed 11/29/2012 Appointment: Alexandra Carrolltel: [address] [place] [address] ACUTE ILLNESS 09/26/2012 Patient Education: Patient Medication Summary Completed 09/26/2012 Appointment: Alexandra Carroll WPtel: [address] [place] [address] ACUTE ILLNESS 07/11/2012 Patient Education: Patient Medication Summary Completed 07/11/2012 Appointment: Alexandra Carroll WPtel: [address] [place] [address] LAB 02/17/2012 Patient Education: Patient Medication Summary Completed 02/17/2012 Visit Plan: Check fasting lab Start annie y ca with Vit D Cont CPAP Mammo up-to-date Hemoccult card given 02/02/2012 Appointment: Alexandra Carrolltel: [address] [place] [address] PHYSICAL 02/02/2012 Patient Education: Patient Medication Summary Completed 02/02/2012 Appointment: Alexandra Carrolltel: [address] [place] [address] [place] UA 08/27/2011 Patient Education: Patient Medication Summary Completed 08/27/2011 Visit Plan: Levaquin and Diflucan for 1w k Then cipro QOD for prophylaxis 08/17/2011 Appointment: Alexandra Carroll WPtel: [address] [place] [address] FOLLOW UP 08/17/2011 Patient Education: Patient Medication Summary Completed 08/17/2011 Appointment: Alexandra Carrolltel: [address] [place] [address] UA 12/28/2010 Patient Education: Patient Medication Summary Completed 12/28/2010 Appointment: Alexandra Carroll WPtel: [address] [place], [place] [address] [facility] 11/09/2010 Patient Education: Patient Medication Summary Completed 11/09/2010 Appointment: Alexandra Carroll WPtel: [address] [place], [place] [id number] [facility] 10/29/2010 Patient Education: Patient Medication Summary Completed 10/29/2010 Appointment: Steph Bowen WPtel: [address] [place], [place] [phone] ACUTE ILLNESS 10/14/2010 Patient Education: Patient Medication Summary Completed 10/14/2010 Referral: Florian Baig WPtel: [facility] [address] Referral Initiated Referral: Paulo Albert WPtel: [id number] [place] Referral Appointment Requested Referral: Luis Enrique Jasso WPtel: [facility] [address] Referral Appointment Requested Referral: Florian Baig WPtel: [facility] [address] Referral Appointment Requested Referral: Caleb Galser WPtel: [address] [place] Referral Appointment Requested Referral: Florian Baig WPtel: [facility] [address] Referral Initiated Referral: Florian Baig WPtel: [facility] [address] [place] Referral Appointment Requested Instructions Comment [...] agrees with this trial. Rx called to [facility] after cost comparison which is nearly the same robert. If working well, continue the i7qnthp office visits. Call if not working well, and will restart xanax at HS for sleep. . Removal of lesion above using 3-0 punc h biopsy Return in 10 days for suture removal . Starts PT today Schedule with Dr. Garcia for epidural CT abdomen/pelvis results discussed Sees [employer] in April and will get checked then [...]
--- OUTSIDE RECORDS SUMMARY | 2019-09-02 00:28 | XMS REPORT | CCD ---
Author Author Ilda Bowen APRN Organization [facility] Address [address] [place] [address] Phone Care Team Providers Care Formulation Technician Name Role Phone Alexandra Carroll D.O., PP Unavailable CCM Unavailable Summary Purpose Interface Exchange Insurance Providers Payer name Policy type / Coverage type Covered green party ID Effective Begin Date Effective End Date WPS MEDICARE PART B [place] Medicare Part B [id number] 2019 Unknown Bankers [place] Medicare Part B [id number] 2019 Unknown Family History Family History data not found Social History Social History Element Codes Description Effective Dates Tobacco history SNOMED CT: 991248922 Nonsmoker 10/14/2010 Allergies, Adverse Reactions, Alerts Substance Reaction Codes Entered Date Inactivated Date Status MORPHINE SULFATE RxNorm: 0826706 10/14/2010 No Inactive Da te Active CEPHALOSPORINS [...] Fill Instructions cyclobenzaprine 10 mg tablet RxNorm: 446565 1 Tablet(s) Oral three times a day as needed for muscle spasm 02/12/2019 02/12/2019 Inactive Xanax 1 mg tablet RxNorm: 247251 1-2 Tablet(s) Oral e very night at bedtime as needed for sleep 02/09/2019 03/10/2019 Inactive Generic For:LAVELLE AX 1MG 10/11/2016 11:15:13 AM Xanax 1 mg tablet RxNorm: 228707 1-2 Tablet(s) Oral e very night at bedtime as needed for sleep 01/22/2019 02/08/2019 Inactive Generic For:LAVELLE AX 1MG 10/11/2016 11:15:13 AM Celexa 40 mg tablet RxNorm: 133591 1 Tablet(s) Oral QD 01/17/2019 Active - First Attempt Ref: [id number] Xanax 1 mg tablet RxNorm: 431934 1 Tablet(s) Oral every night a t bedtime 01/08/2019 01/21/2019 Inactive levothyroxine 88 mcg tablet RxNorm: 136624 TAKE 1 TABLET BY NINA TH DAILY 12/19/2018 06/16/2019 Active - First Attempt Ref: [id number] Xanax 1 mg tablet RxNorm: 369664 1 Tablet(s) Oral every night a t bedtime 12/06/2018 01/05/2019 Inactive Singulair 10 mg tablet RxNorm: 207735 1 Tablet(s) Oral every ni ght at bedtime 11/23/2018 11/17/2019 Active - First Attempt Ref: [id number] Celexa 40 mg tablet RxNorm: 178372 1 Tablet(s) Oral 11/23/20182018 Inactive - First Attempt Ref: [id number] cyclobenzaprine 10 mg tablet RxNorm: 474854 1 Tablet(s) Oral three times a day as needed for muscle spasm 11/23/2018 02/11/2019 Inactive Xanax 1 mg tablet RxNorm: 868727 1 Tablet(s) PO QHS 11/06/20182018 Inactive Xanax 1 mg tablet RxNorm: 650075 1 Tablet(s) PO QHS 09/26/20182018 Inactive Singulair 10 mg tablet RxNorm: 873869 TAKE 1 TABLET BY MOUTH EVERY NIGHT AT BEDTIME 08/16/2018 11/22/2018 Inactive - First Attempt Ref: [id number] Xanax 1 mg tablet RxNorm: 298539 1 Tablet(s) PO QHS 08/01/20182018 Inactive levothyroxine 88 mcg tablet RxNorm: 572147 TAKE 1 TABLET BY NINA TH DAILY 07/31/2018 12/18/2018 Inactive - First Attempt Ref: [id number] Celexa 40 mg tablet RxNorm: 379913 TAKE 1 TABLET BY MOUTH DAILY 04/201811/22/2018 Inactive - First Attempt Ref: [id number] 54 bupropion HCl SR 100 mg tablet,12 hr sustained-release RxNor m: 726135 1 Tablet(s) PO BID 07/12/2018 07/06/2019 Active - Ref: [id number] 7 Claritin-D 24 Hour 10 mg-240 mg tablet,extended release RxNo rm: 2188082 1 Tablet(s) PO QD 06/29/2018 2018 Inactive Claritin-D 24 Hour 10 mg-240 mg tablet,extended release RxNo rm: 4064615 1 Tablet(s) PO QD 06/29/2018 2018 Inactive Xanax 1 mg tablet RxNorm: 581236 1-2 Tablet(s) PO QHS as needed for sleep 05/26/2018 06/23/2018 Inactive Generic For:XANAX 1M G 10/11/2016 11:15:13 AM Xanax 1 mg tablet RxNorm: 346635 1-2 Tablet(s) PO QHS as needed for sleep 03/28/2018 05/25/2018 Inactive Generic For:XANAX 1M G 10/11/2016 11:15:13 AM Macrobid 100 mg capsule RxNorm: 054692 1 Capsule(s) PO BID 03/27/1903/31/2018 Inactive gabapentin 300 mg capsule RxNorm: 346208 1 Capsule(s) PO QHS 201703/26/2018 Inactive Claritin-D 24 Hour 10 mg-240 mg tablet,extended release RxNo rm: 5842032 1 Tablet(s) PO QD 01/26/2018 02/24/2018 Inactive gabapentin 100 mg capsule RxNorm: 792317 1 Capsule(s) P O QHS for 1 week then 2 po q HS for 2 weeks then 3 po q HS 01/24/2018 03/26/2018 Inactive Xanax 1 mg tablet RxNorm: 394971 1-2 Tablet(s) PO QHS as needed for sleep 01/24/2018 03/24/2018 Inactive Generic For:XANAX 1M G 10/11/2016 11:15:13 AM prednisone 20 mg tablet RxNorm: 786793 1 Tablet(s) PO T ID for 3 days then 1 po BID for 3 days then one daily for 3 days 12/29/2017 03/26/2018 Inactiv e prednisone 20 mg tablet RxNorm: 981464 3 Tablet(s) PO T ID for 3 days then 1 po BID for 3 days then one daily for 3 days 12/29/2017 12/29/2017 Inactiv e Macrobid 100 mg capsule RxNorm: 327097 1 Capsule(s) PO BID 12/30/19 18 01/02/2018 Inactive Xanax 1 mg tablet RxNorm: 594407 1-2 Tablet(s) PO QHS as needed for sleep 12/28/2017 01/23/2018 Inactive Generic For:XANAX 1M G 10/11/2016 11:15:13 AM Medrol (Walter) 4 mg tablets in a dose pack RxNorm: 457417 Tablet(s) PO take as directed 12/01/2017 03/26/2018 Inactive Keflex 750 mg capsule RxNorm: 296431 1 Capsule(s) PO BID 12/01/2017 1 Inactive clindamycin HCl 300 mg capsule RxNorm: 548487 2 Capsule(s) PO TID 1 12/08/2017 Inactive Xanax 1 mg tablet RxNorm: 380186 1-2 Tablet(s) PO QHS as needed for sleep 11/28/2017 12/27/2017 Inactive Generic For:XANAX 1M G 10/11/2016 11:15:13 AM mupirocin 2 % topical ointment RxNorm: 552667 1 Application OTIC BI D 11/28/2017 08/09/2018 Inactive Xanax 1 mg tablet RxNorm: 004861 1-2 Tablet(s) PO QHS as needed for sleep 10/27/2017 11/25/2017 Inactive Generic For:XANAX 1M G 10/11/2016 11:15:13 AM Macrobid 100 mg capsule RxNorm: 870019 1 Capsule(s) PO BID 10/11/19 18 10/16/2017 Inactive Medrol (Walter) 4 mg tablets in a dose pack RxNorm: 247184 Tablet(s) PO take as directed 10/10/2017 11/16/2017 Inactive Xanax 1 mg tablet RxNorm: 867786 1-2 Tablet(s) PO QHS as needed for sleep 09/28/2017 10/26/2017 Inactive Generic For:XANAX 1M G 10/11/2016 11:15:13 AM Xanax 1 mg tablet RxNorm: 818344 1-2 Tablet(s) PO QHS as needed for sleep 08/30/2017 09/27/2017 Inactive Generic For:XANAX 1M G 10/11/2016 11:15:13 AM Xanax 1 mg tablet RxNorm: 982567 1-2 Tablet(s) PO QHS as needed for sleep 08/30/2017 08/29/2017 Inactive Generic For:XANAX 1M G 10/11/2016 11:15:13 AM Xanax 1 mg tablet RxNorm: 855881 1-2 Tablet(s) PO QHS as needed for sleep 08/01/2017 08/29/2017 Inactive Generic For:XANAX 1M G 10/11/2016 11:15:13 AM Xanax 1 mg tablet RxNorm: 992429 1-2 Tablet(s) PO QHS as needed for sleep 06/29/2017 2017 Inactive Generic For:XANAX 1M G 10/11/2016 11:15:13 AM Claritin-D 24 Hour 10 mg-240 mg tablet,extended release RxNo rm: 8208004 1 Tablet(s) PO QD 06/29/2017 2017 Inactive levothyroxine 88 mcg tablet RxNorm: 116058 1 Tablet(s) PO QD 201709/10/2017 Inactive Xanax 1 mg tablet RxNorm: 794951 1-2 Tablet(s) PO QHS as needed for sleep 05/26/2017 06/28/2017 Inactive Generic For:XANAX 1M G 10/11/2016 11:15:13 AM Claritin-D 24 Hour 10 mg-240 mg tablet,extended release RxNo rm: 2784655 1 Tablet(s) PO QD 05/26/2017 06/24/2017 Inactive bupropion HCl SR 100 mg tablet,12 hr sustained-release RxNor m: 929673 Tablet(s) Take 1 tablet by mouth two times daily 04/06/2017 12/31/2017 Inactive - Ref: [id number] Xanax 1 mg tablet RxNorm: 683877 1-2 Tablet(s) PO QHS as needed for sleep 03/24/2017 05/22/2017 Inactive Generic For:XANAX 1M G 10/11/2016 11:15:13 AM Medrol (Walter) 4 mg tablets in a dose pack RxNorm: 858049 Tablet(s) P O 02/16/2017 03/27/2017 Inactive Xanax 1 mg tablet RxNorm: 914384 Tablet(s) TAKE ONE T O TWO TABLETS BY MOUTH AT BEDTIME NEEDED 02/16/2017 03/17/2017 Inactive Generic For:XA NAX 1MG 10/11/2016 11:15:13 AM Claritin-D 24 Hour 10 mg-240 mg tablet,extended release RxNo rm: 8866081 1 Tablet(s) PO QD 02/16/2017 04/16/2017 Inactive cefdinir 300 mg capsule RxNorm: 940330 2 Capsule(s) PO QD 02/16/2017 02/25/2017 Inactive Celexa 40 mg tablet RxNorm: 969574 Tablet(s) Take 1 tablet by m outh daily 12/23/2016 09/18/2017 Inactive - Ref: [id number] Xanax 1 mg tablet RxNorm: 359886 Tablet(s) TAKE ONE T O TWO TABLETS BY MOUTH AT BEDTIME NEEDED 12/16/2016 01/14/2017 Inactive Generic For:XA NAX 1MG 10/11/2016 11:15:13 AM Xanax 1 mg tablet RxNorm: 950326 Tablet(s) TAKE ONE T O TWO TABLETS BY MOUTH AT BEDTIME NEEDED 11/18/2016 12/15/2016 Inactive Generic For:XA NAX 1MG 10/11/2016 11:15:13 AM Xanax 1 mg tablet RxNorm: 694131 TAKE ONE TO TWO TABL ETS BY MOUTH AT BEDTIME NEEDED 10/11/2016 11/17/2016 Inactive Generic For:XANA X 1MG 10/11/2016 11:15:13 AM Mobic 15 mg tablet RxNorm: 574981 1 Tablet(s) PO QD 09/06/20162016 Inactive Claritin-D 24 Hour 10 mg-240 mg tablet,extended release RxNo rm: 1983186 1 Tablet(s) PO QD 09/02/2016 11/30/2016 Inactive prednisone 20 mg tablet RxNorm: 927443 1 Tablet(s) PO T ID for 3 days then 1 po BID for 3 days then one daily for 3 days 08/16/2016 03/27/2017 Inactiv e cefdinir 300 mg capsule RxNorm: 780074 2 Capsule(s) PO QD 08/16/2016 09/05/2016 Inactive Xanax 1 mg tablet RxNorm: 944092 TAKE ONE TO TWO TABL ETS BY MOUTH AT BEDTIME NEEDED 08/05/2016 10/11/2016 Inactive Generic For:XANA X 1MG 08/05/2016 2:27:03 PM08/04/2016 4:15:22 PM Singulair 10 mg tablet RxNorm: 004421 1 Tablet(s) PO QHS 07/06/2016 0 09/03/2016 Inactive prednisone 20 mg tablet RxNorm: 614864 1 Tablet(s) PO T ID for 3 days then 1 po BID for 3 days then one daily for 3 days 06/15/2016 07/05/2016 Inactiv e Singulair 10 mg tablet RxNorm: 388060 1 Tablet(s) PO QHS 06/15/2016 0 07/05/2016 Inactive cefdinir 300 mg capsule RxNorm: 625071 2 Capsule(s) PO QD 06/15/2016 07/05/2016 Inactive Xanax 1 mg tablet RxNorm: 104633 1-2 Tablet(s) PO QHS 05/21/201610/2016 Inactive Claritin-D 24 Hour 10 mg-240 mg tablet,extended release RxNo rm: 3405204 1 Tablet(s) PO QD 04/09/2016 07/07/2016 Inactive Xanax 1 mg tablet RxNorm: 185854 1-2 Tablet(s) PO QHS 03/23/201604/29 Inactive levothyroxine 88 mcg tablet RxNorm: 815533 1 Tablet(s) PO QD 201606/13/2017 Inactive bupropion HCl SR 100 mg tablet,sustained-release RxNorm: 993 503 Take 1 tablet by mouth two times daily 03/15/2016 12/09/2016 Inactive - Ref: 20 6414858 Celexa 40 mg tablet RxNorm: 450071 Take 1 tablet by mouth daily 12/23/2016 Inactive - Ref: [id number] Xanax 1 mg tablet RxNorm: 247173 1-2 Tablet(s) PO QHS 02/17/201603/01 Inactive levothyroxine 88 mcg tablet RxNorm: 948327 1 Tablet(s) PO QD 201502/22/2016 Inactive Xanax 1 mg tablet RxNorm: 691917 1-2 Tablet(s) PO QHS 11/25/201511/29 Inactive levothyroxine 88 mcg tablet RxNorm: 526551 1 Tablet(s) PO QD 201511/24/2015 Inactive temazepam 30 mg capsule RxNorm: 264000 1 Capsule(s) PO QHS 11/13/19 16 11/24/2015 Inactive Xanax 1 mg tablet RxNorm: 971207 1-2 Tablet(s) PO QHS 09/15/201510/29 Inactive Celexa 40 mg tablet RxNorm: 769961 1 Tablet(s) PO QD 1 Tablet(s ) PO QD 09/10/2015 09/16/2015 Inactive bupropion HCl SR 100 mg tablet,sustained-release RxNorm: 993 503 1 Tablet(s) PO BID 09/10/2015 09/23/2015 Inactive Xanax 1 mg tablet RxNorm: 783262 1-2 Tablet(s) PO QHS 09/10/201508/28 Inactive Xanax 1 mg tablet RxNorm: 595368 1-2 Tablet(s) PO QHS 08/11/201508/28 Inactive cyclobenzaprine 10 mg tablet RxNorm: 490581 1 Tablet(s) PO TID prn spasm 07/09/2015 11/23/2018 Inactive Celexa 40 mg tablet RxNorm: 619760 1 Tablet(s) PO QD 06/06/201508/03 Inactive Xanax 1 mg tablet RxNorm: 863865 1-2 Tablet(s) PO QHS 06/04/201505/2015 Inactive levothyroxine 88 mcg tablet RxNorm: 609133 1 Tablet(s) PO QD 201511/23/2015 Inactive Ceftin 500 mg tablet RxNorm: 359671 1 Tablet(s) PO BID 05/05/2015 Inactive Ceftin 500 mg tablet RxNorm: 842605 1 Tablet(s) PO BID 05/05/201507/2015 Inactive meloxicam 15 mg tablet RxNorm: 686332 1 Tablet(s) PO QD 04/16/2015 Inactive meloxicam 15 mg tablet RxNorm: 157057 1 Tablet(s) PO QD 04/16/2015 Inactive diclofenac sodium 75 mg tablet,delayed release RxNorm: 12749 6 1 Tablet(s) PO BID 04/04/2015 04/15/2015 Inactive diclofenac sodium 75 mg tablet,delayed release RxNorm: 38777 6 1 Tablet(s) PO BID 04/04/2015 04/03/2015 Inactive Tivorbex 40 mg capsule RxNorm: 6224612 1 Capsule(s) PO TID 03/24/19 16 04/02/2015 Inactive bupropion HCl SR 100 mg tablet,sustained-release RxNorm: 993 503 1 Tablet(s) PO BID 03/11/2015 09/06/2015 Inactive cyclobenzaprine 10 mg tablet RxNorm: 908433 1 Tablet(s) PO TID prn spasm 03/11/2015 07/08/2015 Inactive levothyroxine 88 mcg tablet RxNorm: 924056 1 Tablet(s) PO QD 201405/27/2015 Inactive Claritin-D 24 Hour 10 mg-240 mg tablet,extended release RxNo rm: 5338316 1 Tablet(s) PO QD 02/27/2015 05/27/2015 Inactive cefuroxime axetil 500 mg tablet RxNorm: 056457 1 Tablet(s) PO BID 1 03/12/2015 Inactive Celexa 40 mg tablet RxNorm: 389240 1 Tablet(s) PO QD 02/05/201504/05 Inactive levothyroxine 75 mcg tablet RxNorm: 459287 1 Tablet(s) PO QD 201402/26/2015 Inactive Celexa 40 mg tablet RxNorm: 185644 1 Tablet(s) PO QD 10/09/201402/04 Inactive Activella 1 mg-0.5 mg tablet RxNorm: 5390759 1 Tablet(s) PO QD 08/2802/26/2015 Inactive bupropion HCl SR 100 mg tablet,sustained-release RxNorm: 993 503 1 Tablet(s) PO BID 09/12/2014 03/10/2015 Inactive levothyroxine 75 mcg tablet RxNorm: 392115 1 Tablet(s) PO QD 201412/09/2014 Inactive levothyroxine 75 mcg tablet RxNorm: 154168 1 Tablet(s) PO QD 201409/11/2014 Inactive Celexa 40 mg tablet RxNorm: 860638 1 Tablet(s) PO QD 08/12/201410/08 Inactive Xanax 1 mg tablet RxNorm: 234651 1-2 Tablet(s) PO QHS 08/12/201409/28 Inactive Claritin-D 24 Hour 10 mg-240 mg tablet,extended release RxNo rm: 4301434 1 Tablet(s) PO QD 06/13/2014 09/10/2014 Inactive cyclobenzaprine 10 mg tablet RxNorm: 704000 1 Tablet(s) PO TID prn spasm 06/12/2014 02/26/2015 Inactive Xanax 1 mg tablet RxNorm: 841661 1-2 Tablet(s) PO QHS 05/09/201406/28 Inactive levothyroxine 75 mcg tablet RxNorm: 809382 1 Tablet(s) PO QD 201407/08/2014 Inactive cephalexin 500 mg capsule RxNorm: 776115 1 Capsule(s) PO QOD 201402/26/2015 Inactive simvastatin 10 mg tablet RxNorm: 951668 1 Tablet(s) PO QHS 04/10/19 15 06/12/2014 Inactive Xanax 1 mg tablet RxNorm: 962209 1-2 Tablet(s) PO QHS 04/10/201404/28 Inactive levothyroxine 75 mcg tablet RxNorm: 065040 1 Tablet(s) PO QD 201404/09/2014 Inactive levothyroxine 75 mcg capsule RxNorm: 791803 1 Capsule(s) PO QD 03/3104/10/2014 Inactive Activella 1 mg-0.5 mg tablet RxNorm: 0376429 1 Tablet(s) PO QD 03/0109/11/2014 Inactive bupropion HCl SR 100 mg tablet,sustained-release RxNorm: 993 503 1 Tablet(s) PO BID 03/04/2014 08/30/2014 Inactive Activella 1 mg-0.5 mg tablet RxNorm: 3956858 1 Tablet(s) PO QD 01/2803/18/2014 Inactive levothyroxine 75 mcg capsule RxNorm: 455466 1 Capsule(s) PO QD 12/2904/08/2014 Inactive simvastatin 10 mg tablet RxNorm: 695532 1 Tablet(s) PO QHS 01/10/20 14 04/08/2014 Inactive cyclobenzaprine 10 mg tablet RxNorm: 272032 1 Tablet(s) PO TID prn spasm 01/09/2014 04/08/2014 Inactive Cipro 500 mg tablet RxNorm: 892048 1 Tablet(s) PO BID 12/25/201304/2013 Inactive Cipro 500 mg tablet RxNorm: 794914 1 Tablet(s) PO BID 12/25/201311/29 Inactive bupropion HCl SR 100 mg tablet,sustained-release RxNorm: 993 503 1 Tablet(s) PO QAM 12/11/2013 03/03/2014 Inactive cephalexin 500 mg capsule RxNorm: 554474 1 Capsule(s) PO QOD 201304/09/2014 Inactive Xanax 1 mg tablet RxNorm: 066654 1-2 Tablet(s) PO QHS 10/15/201310/29 Inactive simvastatin 10 mg tablet RxNorm: 706734 1 Tablet(s) PO QHS 10/11/19 14 01/07/2014 Inactive Celexa 40 mg tablet RxNorm: 800665 Tablet(s) PO TAKE 1 TABLET BY MOUTH ONCE DAILY. 09/18/2013 09/17/2013 Inactive Xanax 1 mg tablet RxNorm: 213213 1-2 Tablet(s) PO QHS 08/13/201308/28 Inactive simvastatin 10 mg tablet RxNorm: 549443 1 Tablet(s) PO QHS 07/12/19 14 10/08/2013 Inactive bupropion HCl SR 100 mg tablet,sustained-release RxNorm: 993 503 1 Tablet(s) PO QAM 05/22/2013 11/17/2013 Inactive Pamelor 10 mg capsule RxNorm: 018643 1 Capsule(s) PO QHS for PLATA /sleep 05/22/2013 06/04/2013 Inactive Xanax 1 mg tablet RxNorm: 052636 1-2 Tablet(s) PO QHS 05/15/201305/29 Inactive Pamelor 10 mg capsule RxNorm: 779623 1 Capsule(s) PO QHS for PLATA /sleep 05/15/2013 05/21/2013 Inactive Xanax 1 mg tablet RxNorm: 440271 1 Tablet(s) PO QHS 04/27/20132013 Inactive Zovirax 800 mg tablet RxNorm: 138460 1 Tablet(s) PO TID 04/05/2013 Inactive Xanax 1 mg tablet RxNorm: 717580 1 Tablet(s) PO QHS 04/03/2013 No Sto p Date Active bupropion HCl SR 100 mg tablet,sustained-release RxNorm: 993 503 1 Tablet(s) PO QAM 03/26/2013 05/21/2013 Inactive bupropion HCl SR 100 mg tablet,sustained-release RxNorm: 993 503 1 Tablet(s) PO QAM 03/06/2013 03/25/2013 Inactive Pamelor 10 mg capsule RxNorm: 826386 1 Capsule(s) PO QHS for PLATA /sleep 02/14/2013 05/14/2013 Inactive levothyroxine 75 mcg capsule RxNorm: 318224 1 Capsule(s) PO QD 12/2901/08/2014 Inactive simvastatin 10 mg tablet RxNorm: 062782 1 Tablet(s) PO QHS TAKE 1 TABLET BY MOUTH ONCE DAILY AT BEDTIME. 01/15/2013 07/10/2013 Inactive cyclobenzaprine 10 mg tablet RxNorm: 826534 1 Tablet(s) PO TID prn spasm 12/25/2012 06/22/2013 Inactive Pamelor 10 mg capsule RxNorm: 402499 1 Capsule(s) PO QHS for PLATA /sleep 11/29/2012 02/14/2013 Inactive Celexa 40 mg tablet RxNorm: 177227 Tablet(s) PO TAKE 1 TABLET BY MOUTH ONCE DAILY. 10/11/2012 09/17/2013 Inactive simvastatin 10 mg tablet RxNorm: 161141 Tablet(s) PO TA KE 1 TABLET BY MOUTH ONCE DAILY AT BEDTIME. 10/11/2012 01/14/2013 Inactive simvastatin 10 mg tablet RxNorm: 441863 1 Tablet(s) PO QD 07/11/2012 10/08/2012 Inactive simvastatin 10 mg tablet RxNorm: 373630 1 Tablet(s) PO QD 04/14/2012 07/11/2012 Inactive simvastatin 10 mg tablet RxNorm: 145985 1 Tablet(s) PO QD 04/14/2012 04/13/2012 Inactive Celexa 40 mg tablet RxNorm: 195877 1 Tablet(s) PO QD 03/15/201209/10 Inactive cyclobenzaprine 10 mg tablet RxNorm: 076754 1 Tablet(s) PO TID prn spasm 02/02/2012 02/01/2012 Inactive cyclobenzaprine 10 mg tablet RxNorm: 665298 1 Tablet(s) PO TID prn spasm 02/02/2012 07/30/2012 Inactive Diflucan 100 mg Tab RxNorm: 641472 1 Tablet(s) PO QD 08/17/201108/22 Inactive Cipro 250 mg Tab RxNorm: 201934 1 Tablet(s) PO QD 08/17/2011 10/15/19 Inactive Levaquin 500 mg Tab RxNorm: 801663 1 Tablet(s) PO QD 08/17/201108/22 Inactive Pyridium 200 mg Tab RxNorm: 6451298 1 Tablet(s) PO TID 10/14/2010 Inactive may turn urine orange-red color. Cipro 500 mg Tab RxNorm: 392441 1 Tablet(s) PO BID 10/14/2010 011 Inactive levothyroxine 75 mcg capsule RxNorm: 340807 1 Capsule(s) PO QD 12/3001/14/2011 Inactive loratadine 10 mg tablet RxNorm: 667216 1 Tablet(s) PO QHS No Start Da te Active Vitamin D3 5,000 unit tablet RxNorm: 147564 1 Tablet(s) PO QD No Star t Date Active Nasacort 55 mcg nasal spray aerosol RxNorm: 4120708 2 Sp ray NASAL each nostril QHS No Start Date Active cyclobenzaprine 10 mg tablet RxNorm: 044167 1 Tablet(s) PO TID as needed No Start Date 11/22/2018 Inactive Vitamin D2 1,000 unit capsule RxNorm: 697805 3 Capsule(s) PO QD No Start Date 11/16/2017 Inactive diclofenac sodium 75 mg tablet,delayed release RxNorm: 19325 6 1 Tablet(s) PO BID No Start Date 03/16/2016 Inactive cephalexin 500 mg capsule RxNorm: 237920 1 Capsule(s) PO QOD No Sta rt Date 12/04/2013 Inactive cyclobenzaprine 10 mg tablet RxNorm: 869513 1 Tablet(s) PO QHS No S tart Date 02/01/2012 Inactive hydrocodone 5 mg-acetaminophen 500 mg tablet RxNorm: 208872 1 -2 Tablet(s) PO Q6H as needed No Start Date 08/09/2018 Inactive etodolac 400 mg tablet RxNorm: 103231 1 Tablet(s) PO TID No Start D ate 09/17/2018 Inactive Xanax 1 mg tablet RxNorm: 479601 1 Tablet(s) PO QHS No Start Date 04/2013 Inactive Vitamin D3 1,000 unit capsule RxNorm: 033686 1 Capsule(s) PO QD No Start Date 06/12/2014 Inactive estradiol 2 mg tablet RxNorm: 553337 1/2 Tablet(s) PO QD No Start D ate 03/05/2013 Inactive Celexa 40 mg tablet RxNorm: 280942 1 Tablet(s) PO QD No Start Date Inactive Activella 1 mg-0.5 mg tablet RxNorm: 5146754 1 Tablet(s) PO QD No S tart Date 07/10/2012 Inactive medroxyprogesterone 5 mg tablet RxNorm: 5566519 1/2 Tablet(s) PO QD No Start Date 03/05/2013 Inactive levothyroxine 88 mcg tablet RxNorm: 386294 1 Tablet(s) PO QD No Sta rt Date 02/26/2015 Inactive Keflex 500 mg capsule RxNorm: 214352 1 Capsule(s) PO PRN No Start D ate 08/16/2011 Inactive Activella 1 mg-0.5 mg tablet RxNorm: 9336297 1 Tablet(s) PO QHS No Start Date 03/27/2017 Inactive Activella 1 mg-0.5 mg tablet RxNorm: 0200441 1 Tablet(s) PO QD No S tart Date 02/06/2014 Inactive Flexeril 10 mg Tab RxNorm: 773028 1 Tablet(s) PO TID No Start Date Inactive prn spasm simvastatin 10 mg tablet RxNorm: 306539 1 Tablet(s) PO QD No Start Date 04/13/2012 Inactive Medication Administered No Medication Administered data Immunizations Vaccine Codes Date Status Influenza CVX: 135 01/16/2019 Complete Pneumococcal CVX: 133 01/16/2019 Complete Results No Results data Procedures Procedure Codes Date FLU VACC PRSV FREE INC ANTIG 65 AND OLDER CPT-4: 07798 01/16/2019 FLU VACC PRSV FREE INC ANTIG 65 AND OLDER CPT-4: 10666 01/16/2019 PNEUMOCOCCAL VACC 13 NARESH IM CPT-4: 81468 01/16/2019 SKIN FUNGI CULTURE CPT-4: 06596 01/16/2019 IMMUNIZATION ADMIN CPT-4: 22030 01/16/2019 IMMUNIZATION ADMIN EACH ADD CPT-4: 93455 01/16/2019 THER/PROPH/DIAG INJ SC/IM CPT-4: 07417 01/17/2018 KETOROLAC TROMETHAMINE INJ CPT-4: J1885 01/17/2018 THER/PROPH/DIAG INJ SC/IM CPT-4: 85111 01/17/2018 PROMETHAZINE HCL INJECTION CPT-4: J2550 01/17/2018 URINALYSIS NONAUTO W/O SCOPE CPT-4: 70584 12/29/2017 URINE CULTURE/ COLONY COUNT CPT-4: 67920 12/29/2017 THER/PROPH/DIAG INJ SC/IM CPT-4: 57529 11/30/2017 TRIAMCINOLONE ACET INJ NOS CPT-4: J3301 11/30/2017 DEXAMETHASONE SODIUM PHOS CPT-4: J1100 11/30/2017 CEFTRIAXONE SODIUM INJECTION CPT-4: J0696 11/29/2017 THER/PROPH/DIAG INJ SC/IM CPT-4: 08322 11/29/2017 CEFTRIAXONE SODIUM INJECTION CPT-4: J0696 11/28/2017 THER/PROPH/DIAG INJ SC/IM CPT-4: 49287 11/28/2017 URINALYSIS NONAUTO W/O SCOPE CPT-4: 81310 10/10/2017 THER/PROPH/DIAG INJ SC/IM CPT-4: 18480 10/10/2017 TRIAMCINOLONE ACET INJ NOS CPT-4: J3301 10/10/2017 DEXAMETHASONE SODIUM PHOS CPT-4: J1100 10/10/2017 CEFTRIAXONE SODIUM INJECTION CPT-4: J0696 10/10/2017 THER/PROPH/DIAG INJ SC/IM CPT-4: 32929 10/10/2017 URINE CULTURE/ COLONY COUNT CPT-4: 78729 10/10/2017 THER/PROPH/DIAG INJ SC/IM CPT-4: 04939 11/02/2016 KETOROLAC TROMETHAMINE INJ CPT-4: J1885 11/02/2016 THER/PROPH/DIAG INJ SC/IM CPT-4: 37387 06/15/2016 TRIAMCINOLONE ACET INJ NOS CPT-4: J3301 06/15/2016 DEXAMETHASONE SODIUM PHOS CPT-4: J1100 06/15/2016 THER/PROPH/DIAG INJ SC/IM CPT-4: 07961 04/09/2016 KETOROLAC TROMETHAMINE INJ CPT-4: J1885 04/09/2016 PROMETHAZINE HCL INJECTION CPT-4: J2550 04/09/2016 EXC TR-EXT B9+ERASMO 0.5 CM< CPT-4: 05205 06/12/2015 URINALYSIS NONAUTO W/O SCOPE CPT-4: 32852 05/05/2015 URINE CULTURE/ COLONY COUNT CPT-4: 45949 05/05/2015 URINALYSIS NONAUTO W/O SCOPE CPT-4: 44456 03/24/2015 URINALYSIS NONAUTO W/O SCOPE CPT-4: 57800 02/27/2015 URINE CULTURE/ COLONY COUNT CPT-4: 36057 02/27/2015 THER/PROPH/DIAG INJ SC/IM CPT-4: 83045 04/18/2014 KETOROLAC TROMETHAMINE INJ CPT-4: J1885 04/18/2014 THER/PROPH/DIAG INJ SC/IM CPT-4: 72402 06/05/2013 TRIAMCINOLONE ACET INJ NOS CPT-4: J3301 06/05/2013 THER/PROPH/DIAG INJ SC/IM CPT-4: 03828 11/29/2012 KETOROLAC TROMETHAMINE INJ CPT-4: J1885 11/29/2012 URINALYSIS NONAUTO W/O SCOPE CPT-4: 99640 07/11/2012 URINE CULTURE/ COLONY COUNT CPT-4: 60718 07/11/2012 OCCULT BLOOD FECES CPT-4: 59865 02/17/2012 URINALYSIS NONAUTO W/O SCOPE CPT-4: 82832 08/27/2011 URINE CULTURE/ COLONY COUNT CPT-4: 23355 08/27/2011 URINALYSIS NONAUTO W/O SCOPE CPT-4: 28998 08/17/2011 URINE CULTURE/ COLONY COUNT CPT-4: 21738 08/17/2011 URINALYSIS NONAUTO W/O SCOPE CPT-4: 63369 12/28/2010 URINE CULTURE/ COLONY COUNT CPT-4: 57176 12/28/2010 URINALYSIS NONAUTO W/O SCOPE CPT-4: 80003 11/09/2010 URINE CULTURE/ COLONY COUNT CPT-4: 39949 11/09/2010 URINALYSIS NONAUTO W/O SCOPE CPT-4: 74023 10/29/2010 URINE CULTURE/ COLONY COUNT CPT-4: 69276 10/29/2010 URINE CULTURE/ COLONY COUNT CPT-4: 17085 10/14/2010 URINALYSIS NONAUTO W/O SCOPE CPT-4: 28336 10/14/2010 Vital Signs Date Vital 04/10/2019 Blood [...] 1: 122/74 Code: 8480-6 BMI: 22.0 Code: 89907-6 Heart Rate 1: 72 bpm Height: 5'3" [...] 1: 126/72 Code: 8480-6 BMI: 22.7 Code: 41664-2 Heart Rate 1: 72 bpm Height: 5'3" [...] 1: 112/70 Code: 8480-6 BMI: 22.0 Code: 67577-7 Heart Rate 1: 80 bpm Height: 5'3" [...] 1: 122/64 Code: 8480-6 BMI: 21.4 Code: 62773-9 Heart Rate 1: 88 bpm Height: 5'3" Respiratory Rate: 22 bpm SpO2: 96% Tempera ture: 36.8 (C) / 98.2 (F) Weight: 121 lbs 06/22/2017 Blood Pressure 1: 124/78 Code: 8480-6 BMI: 21.6 Code: 38421-0 Heart Rate 1: 76 bpm Height: 5'3" Respiratory Rate: 20 bpm Temperature: 36 .8 (C) / 98.3 (F) Weight: 122 lbs 03/28/2017 Blood Pressure 1: 92/60 Code: 8480-6 BMI: 20.4 C ode: 43946-1 Heart Rate 1: 72 bpm Height: 5'3" Respiratory Rate: 20 bpm Temperature: 36 .9 (C) / 98.4 (F) Weight: 115 lbs 02/16/2017 Blood Pressure 1: 106/70 Code: 8480-6 BMI: 21.3 Code: 57269-4 Heart Rate 1: 82 bpm Height: 5'3" Respiratory Rate: 22 bpm SpO2: 97% Tempera ture: 36.1 (C) / 97.0 (F) Weight: 120 lbs 09/06/2016 Blood Pressure 1: 118/64 Code: 8480-6 BMI: 22.7 Code: 47089-0 Heart Rate 1: 78 bpm Height: 5'3" Respiratory Rate: 20 bpm SpO2: 98% Tempera ture: 36.2 (C) / 97.2 (F) Weight: 128 lbs 08/16/2016 Blood Pressure 1: 118/78 Code: 8480-6 BMI: 22.1 Code: 27507-3 Heart Rate 1: 78 bpm Height: 5'3" Respiratory Rate: 20 bpm SpO2: 97% Tempera ture: 36.2 (C) / 97.1 (F) Weight: 125 lbs 07/19/2016 Blood Pressure 1: 116/68 Code: 8480-6 BMI: 22.5 Code: 24992-5 Heart Rate 1: 76 bpm Height: 5'3" Respiratory Rate: 20 bpm Temperature: 36 .8 (C) / 98.2 (F) Weight: 127 lbs 07/06/2016 Blood Pressure 1: 106/70 Code: 8480-6 BMI: 22.5 Code: 72646-2 Heart Rate 1: 72 bpm Height: 5'3" Respiratory Rate: 20 bpm SpO2: 97% Tempera ture: 36.8 (C) / 98.2 (F) Weight: 127 lbs 06/15/2016 Blood Pressure 1: 136/76 Code: 8480-6 BMI: 22.9 Code: 17546-3 Heart Rate 1: 74 bpm Height: 5'3" Respiratory Rate: 18 bpm SpO2: 98% Tempera ture: 36.4 (C) / 97.6 (F) Weight: 129 lbs 04/09/2016 Blood Pressure 1: 124/78 Code: 8480-6 BMI: 23.0 Code: 49313-2 Heart Rate 1: 86 bpm Height: 5'3" Respiratory Rate: 20 bpm SpO2: 96% Tempera ture: 36.5 (C) / 97.7 (F) Weight: 130 lbs 03/17/2016 Blood Pressure 1: 116/74 Code: 8480-6 BMI: 23.4 Code: 54166-4 Heart Rate 1: 84 bpm Height: 5'3" Respiratory Rate: 20 bpm SpO2: 97% Tempera ture: 36.8 (C) / 98.3 (F) Weight: 132 lbs 11/13/2015 Blood Pressure 1: 124/78 Code: 8480-6 BMI: 23.4 Code: 83923-6 Heart Rate 1: 88 bpm Height: 5'3" Respiratory Rate: 24 bpm SpO2: 98% Tempera ture: 36.8 (C) / 98.2 (F) Weight: 132 lbs 06/12/2015 Blood Pressure 1: 126/78 Code: 8480-6 BMI: 23.6 Code: 98939-6 Heart Rate 1: 80 bpm Height: 5'3" Respiratory Rate: 20 bpm Temperature: 36 .9 (C) / 98.4 (F) Weight: 133 lbs 04/22/2015 Blood Pressure 1: 126/68 Code: 8480-6 BMI: 23.6 Code: 82260-8 Heart Rate 1: 80 bpm Height: 5'3" Respiratory Rate: 20 bpm Temperature: 36 .6 (C) / 97.9 (F) Weight: 133 lbs 03/24/2015 Blood Pressure 1: 116/66 Code: 8480-6 BMI: 22.9 Code: 84701-8 Heart Rate 1: 74 bpm Height: 5'3" Respiratory Rate: 20 bpm Temperature: 36 .4 (C) / 97.6 (F) Weight: 129 lbs 02/27/2015 Blood Pressure 1: 106/64 Code: 8480-6 BMI: 22.7 Code: 65186-7 Heart Rate 1: 74 bpm Height: 5'3" Respiratory Rate: 20 bpm Temperature: 36 .8 (C) / 98.2 (F) Weight: 128 lbs 06/13/2014 Blood Pressure 1: 104/66 Code: 8480-6 BMI: 22.7 Code: 46957-7 Heart Rate 1: 84 bpm Height: 5'3" Respiratory Rate: 20 bpm Temperature: 37 .0 (C) / 98.6 (F) Weight: 128 lbs 04/18/2014 Blood Pressure 1: 112/62 Code: 8480-6 BMI: 22.0 Code: 27883-6 Heart Rate 1: 82 bpm Height: 5'3" Respiratory Rate: 18 bpm Temperature: 36 .4 (C) / 97.6 (F) Weight: 124 lbs 12/05/2013 Blood Pressure 1: 106/70 Code: 8480-6 BMI: 23.7 Code: 64299-7 Heart Rate 1: 84 bpm Height: 5'3" [...] 1: 126/88 Code: 8480-6 BMI: 22.3 Code: 02630-8 Heart Rate 1: 96 bpm Height: 5'4" Respiratory Rate: 20 bpm Temperature: 37 .7 (C) / 99.9 (F) Weight: 130 lbs 11/29/2012 Blood Pressure 1: 122/76 Code: 8480-6 BMI: 23.0 Code: 37915-1 Heart Rate 1: 84 bpm Height: 5'4" Respiratory Rate: 20 bpm Temperature: 36 .9 (C) / 98.4 (F) Weight: 134 lbs 09/26/2012 Blood Pressure 1: 114/76 Code: 8480-6 BMI: 23.0 Code: 99189-7 Heart Rate 1: 84 bpm Height: 5'4" Respiratory Rate: 20 bpm Temperature: 37 .3 (C) / 99.1 (F) Weight: 134 lbs 07/11/2012 Blood Pressure 1: 126/78 Code: 8480-6 BMI: 23.7 Code: 12052-1 Heart Rate 1: 76 bpm Height: 5'4" Respiratory Rate: 20 bpm Temperature: 37 .1 (C) / 98.7 (F) Weight: 138 lbs 02/02/2012 Blood Pressure 1: 108/70 Code: 8480-6 BMI: 23.2 Code: 68582-9 Heart Rate 1: 88 bpm Height: 5'4" Respiratory Rate: 20 bpm Temperature: 36 .4 (C) / 97.6 (F) Weight: 135 lbs 08/17/2011 Blood Pressure 1: 108/70 Code: 8480-6 BMI: 23.2 Code: 88466-3 Heart Rate 1: 72 bpm Height: 5'4" Respiratory Rate: 20 bpm Temperature: 36 .8 (C) / 98.2 (F) Weight: 135 lbs 10/14/2010 Blood Pressure 1: 120/72 Code: 8480-6 BMI: 23.4 Code: 24270-3 Heart Rate 1: 78 bpm Height: 5'3" [...] Codes Date () OFFICE/OUTPATIENT VISIT EST Diagnosis: Ventral hernia[ICD10: K43.9] Diagnosis: Incisional hernia[ICD10: K43.2] Alexandra CARROLL DO [facility] CPT-4: 40317 04/10/2019 ([id number]) OFFICE/OUTPATIENT VISIT EST Diagnosis: Insomnia[ICD10: G47.00] Diagnosis: Thrombocytosis[ICD10: D47.3] Alexandra CARROLL [facility] CPT-4: 85058 02/14/2019 ([id number]) OFFICE/OUTPATIENT VISIT EST Diagnosis: Small bowel obstruction[ICD10: K56.609] Diagnosis: FLU VACCINE[ICD10: Z23] Diagnosis: PNEUMOCOCCAL VACCINE[ICD10: Z23] Diagnosis: Onychomycosis[ICD10: B35.1] Alexandra KUNZ [facility] CPT-4: 52676 01/16/2019 ([id number]) OFFICE/OUTPATIENT VISIT EST Diagnosis: Diarrhea, unspecified[ICD10: R19.7] Diagnosis: Radiculopathy, lumbosacral region[ICD10: M54.17] Alexandra CARROLL [facility] CPT-4: 65576 09/18/2018 OFFICE/OUTPATIENT VISIT EST Diagnosis: Other intervertebral disc degeneration, lumbar region[ICD10: M51.36] Diagnosis: Sacroiliitis, not elsewhere classified[ICD10: M46.1] Diagnosis: Obstructive sleep apnea (adult) (pediatric)[ICD10: G47.33] [facility] 46732 08/10/2018 ([id number]) OFFICE/OUTPATIENT VISIT EST Diagnosis: Fracture of unspecified part of left clavicle, subsequent encounter for fracture with routine healing[ICD10: S42.002D] Diagnosis: Cervicalgia[ICD10: M54.2] Diagnosis: Radiculopathy, lumbosacral region[ICD10: M54.17] Alexandra CARROLL [facility] CPT-4: 64964 03/27/2018 ([id number]) OFFICE/OUTPATIENT VISIT EST Diagnosis: Fracture of unspecified part of left clavicle, subsequent encounter for fracture with routine healing[ICD10: S42.002D] Diagnosis: Other intervertebral disc degeneration, lumbar region[ICD10: M51.36] Diagnosis: Unspecified fracture of first thoracic vertebra, subsequent encounter for fracture with routine healing[ICD10: S22.019D] Diagnosis: Unspecified fracture of second thoracic vertebra, subsequent encounter for fracture with routine healing[ICD10: S22.029D] Alexandra CARROLL [employer] [facility] CPT-4: 04491 02/23/2018 ([id number]) OFFICE/OUTPATIENT VISIT EST Diagnosis: Fracture of unspecified part of left clavicle, subsequent encounter for fracture with routine healing[ICD10: S42.002D] Diagnosis: Unspecified fracture of first thoracic vertebra, subsequent encounter for fracture with routine healing[ICD10: S22.019D] Diagnosis: Unspecified fracture of second thoracic vertebra, subsequent encounter for fracture with routine healing[ICD10: S22.029D] Alexandra CARROLL [employer] [facility] CPT-4: 76109 01/24/2018 ([id number]) OFFICE/OUTPATIENT VISIT EST Diagnosis: Migraine, unspecified, not intractable, without status migrainosus[ICD10: G43.909] Alexandra BURLESON [employer] [facility] CPT - 4: 77548 01/17/2018 ([id number]) OFFICE/OUTPATIENT VISIT EST Diagnosis: Hematuria, unspecified[ICD10: R31.9] Diagnosis: Other intervertebral disc degeneration, lumbar region[ICD10: M51.36] Diagnosis: Retention of urine, unspecified[ICD10: R33.9] Alexandra CARROLL [facility] CPT-4: 55883 12/29/2017 OFFICE/OUTPATIENT VISIT EST Diagnosis: Fracture of [...] Diagnosis: Low back pain[ICD10: M54.5] Alexandra KUNZ [employer] [facility] CPT-4: 34773 12/06/2017 ([id number]) OFFICE/OUTPATIENT VISIT EST Diagnosis: Cellulitis of right upper limb[ICD10: L03.113] Diagnosis: Allergy status to other antibiotic agents status[ICD10: Z88.1] Vandana CARROLL DO [employer] CPT-4: 27553 12/01/2017 ([id number]) OFFICE/OUTPATIENT VISIT EST Diagnosis: Cellulitis of right upper limb[ICD10: L03.113] Diagnosis: Allergy status to other antibiotic agents status[ICD10: Z88.1] Vandana CARROLL DO [facility] CPT-4: 79437 11/30/2017 ([id number]) OFFICE/OUTPATIENT VISIT EST Diagnosis: Cellulitis of right upper limb[ICD10: L03.113] Vandana CARROLL DO [facility] CPT-4: 86968 11/29/2017 ([id number]) OFFICE/OUTPATIENT VISIT EST Diagnosis: Cellulitis of right upper limb[ICD10: L03.113] Vandana CARROLL DO [employer] CPT-4: 11733 11/28/2017 ([id number]) OFFICE/OUTPATIENT VISIT EST Diagnosis: Other intervertebral disc degeneration, lumbar region[ICD10: M51.36] Diagnosis: Other retention of urine[ICD10: R33.8] Diagnosis: Primary insomnia[ICD10: F51.01] Diagnosis: Other spondylosis, site unspecified[ICD10: M47.899] Alexandra CARROLL [employer] CPT-4: 99043 11/17/2017 ([id number]) OFFICE/OUTPATIENT VISIT EST Diagnosis: Radiculopathy, lumbosacral region[ICD10: M54.17] Diagnosis: Other retention of urine[ICD10: R33.8] Diagnosis: Urinary tract infection, site not specified[ICD10: N39.0] Vandana CARROLL DO [employer] CPT-4: 62273 10/10/2017 ([id number]) PREV VISIT EST AGE 40-64 Diagnosis: Encounter for general adult medical examination without abnormal findings[ICD10: Z00.00] Diagnosis: Other intervertebral disc degeneration, lumbar region[ICD10: M51.36] Diagnosis: Hypothyroidism, unspecified[ICD10: E03.9] Diagnosis: Mixed hyperlipidemia[ICD10: E78.2] Alexandra CARROLL DO [facility] CPT-4: 71047 06/22/2017 ([id number]) OFFICE/OUTPATIENT VISIT EST Diagnosis: URI, ACUTE[ICD10: J06.9] Alexandra ROMAN [facility] CPT-4: 63555 03/28/2017 OFFICE/OUTPATIENT VISIT EST Diagnosis: Acute sinusitis, unspecified[ICD10: J01.90] Vandana CARROLL [facility] CPT-4: 61060 02/16/2017 ([id number]) OFFICE/OUTPATIENT VISIT EST Diagnosis: Migraine, unspecified, not intractable, without status migrainosus[ICD10: G43.909] Alexandra CARROLL DO [facility] CPT - 4: 78634 11/02/2016 ([id number]) OFFICE/OUTPATIENT VISIT EST Diagnosis: Pain in thoracic spine[ICD10: M54.6] Diagnosis: Chondrocostal junction syndrome [Tietze][ICD10: M94.0] Alexandra CARROLL [facility] CPT-4: 45466 09/06/2016 OFFICE/OUTPATIENT VISIT EST Diagnosis: Acute sinusitis, unspecified[ICD10: J01.90] Vidya Manuel ALEAXNDRA CARROLL [facility] CPT-4: 20088 08/16/2016 ([id number]) OFFICE/OUTPATIENT VISIT EST Diagnosis: Primary insomnia[ICD10: F51.01] Diagnosis: Cramp and spasm[ICD10: R25.2] Diagnosis: Major depressive disorder, single episode, mild[ICD10: F32.0] Alexandra CARROLL [facility] CPT-4: 80841 07/19/2016 ([id number]) OFFICE/OUTPATIENT VISIT EST Diagnosis: Obstructive sleep apnea (adult) (pediatric)[ICD10: G47.33] Diagnosis: Other fatigue[ICD10: R53.83] Diagnosis: Allergic rhinitis due to pollen[ICD10: J30.1] Diagnosis: Headache[ICD10: R51] Alexandra CARROLL [facility] CPT-4: 15056 07/06/2016 ([id number]) OFFICE/OUTPATIENT VISIT EST Diagnosis: Acute recurrent sinusitis, unspecified[ICD10: J01.91] Diagnosis: Allergic rhinitis due to pollen[ICD10: J30.1] Alexandra Danelawandavioletta ALEXANDRA MacyAri DEANNE SALGUERO [facility] CPT-4: 86174 06/15/2016 ([id number]) OFFICE/OUTPATIENT VISIT EST Diagnosis: Migraine, unspecified, not intractable, without status migrainosus[ICD10: G43.909] Diagnosis: Allergic rhinitis, unspecified[ICD10: J30.9] Nae MARINQUELINE MacyAri DEANNE [employer] [facility] CPT-4: 79684 04/09/2016 ([id number]) OFFICE/OUTPATIENT VISIT EST Diagnosis: Hypothyroidism, unspecified[ICD10: E03.9] Diagnosis: Other fatigue[ICD10: R53.83] Diagnosis: Mixed hyperlipidemia[ICD10: E78.2] Diagnosis: Major depressive disorder, single episode, mild[ICD10: F32.0] Alexandra Danejames MARINALEXANDRA MacyAri DEANNE [employer] [facility] CPT-4: 82371 03/17/2016 ([id number]) OFFICE/OUTPATIENT VISIT EST Diagnosis: Insomnia, unspecified[ICD10: G47.00] Diagnosis: Encounter for therapeutic drug level monitoring[ICD10: Z51.81] Nae Mckay ALEXANDRA MacyAri [facility] [employer] [facility] CPT-4: 83927 11/13/2015 ([id number]) OFFICE/OUTPATIENT VISIT EST Diagnosis: Hematuria, unspecified[ICD10: R31.9] Alexandra Crawford DEANNE [employer] [facility] CPT-4: 26904 05/05/2015 ([id number]) OFFICE/OUTPATIENT VISIT EST Diagnosis: Other intervertebral disc degeneration, lumbar region[ICD10: M51.36] Diagnosis: Radiculopathy, lumbosacral region[ICD10: M54.17] Alexandra FORDE MacyAri DEANNE [employer] [facility] CPT-4: 52767 04/22/2015 ([id number]) OFFICE/OUTPATIENT VISIT EST Diagnosis: Low back pain[ICD10: M54.5] Diagnosis: Recurrent and persistent hematuria with unspecified morphologic changes[ICD10: N02.9] Alexandra FORDE Ty [facility]ARROLL [facility] CPT-4: 81709 03/24/2015 ([id number]) OFFICE/OUTPATIENT VISIT EST Diagnosis: Acute sinusitis, unspecified[ICD10: J01.90] Diagnosis: Headache[ICD10: R51] Diagnosis: Retention of urine, unspecified[ICD10: R33.9] Diagnosis: Hypothyroidism, unspecified[ICD10: E03.9] Alexandra FORDE MacyAri DEANNE [facility] CPT-4: 33898 02/27/2015 ([id number]) PREV VISIT EST AGE 40-64 Diagnosis: ROUTINE MEDICAL EXAM[ICD9: V70.0] Diagnosis: HYPOTHYROIDISM[ICD9: 244.9] Diagnosis: HYPERLIPIDEMIA NEC/NOS[ICD9: 272.4] Alexandra CORDOBA Ty [facility] CPT-4: 82890 06/13/2014 ([id number]) OFFICE/OUTPATIENT VISIT EST Diagnosis: CEPHALGIA[ICD9: 784.0] Diagnosis: Nausea[ICD9: 787.02] Shalini VanMarguerite ALEXANDRA Ty [facility]LL [facility] CPT-4: 07913 04/18/2014 ([id number]) OFFICE/OUTPATIENT VISIT EST Diagnosis: INSOMNIA NOS[ICD9: 780.52] Diagnosis: Complicated grieving[ICD9: 309.0] Alexandra Louise Ty [facility]ARROLL [facility] CPT-4: 20418 12/05/2013 ([id number]) OFFICE/OUTPATIENT VISIT EST Diagnosis: Muscle twitch[ICD9: 781.0] Diagnosis: ALLERGIC RHINITIS[ICD9: 477.9] Alexandra FORDE Macy Air DEANNE [employer] [facility] CPT-4: 41840 06/05/2013 ([id number]) OFFICE/OUTPATIENT VISIT EST Diagnosis: DEPRESSIVE DISORDER NEC[ICD9: 311] Alexandra QUINTERO Ty BURLESON [employer] [facility] CPT-4: 08183 05/22/2013 OFFICE/OUTPATIENT VISIT EST Diagnosis: Shingles[ICD9: 053.9] Alexandra FORDE [facility] CPT-4: 98412 04/05/2013 ([id number]) OFFICE/OUTPATIENT VISIT EST Diagnosis: DEPRESSIVE DISORDER NEC[ICD9: 311] Alexandra SHAFFERFELIPE QUINTERO SAri [facility]ARROLL [facility] CPT-4: 53592 03/26/2013 ([id number]) OFFICE/OUTPATIENT VISIT EST Diagnosis: Complicated grieving[ICD9: 309.0] Alexandra OROZCO Dani JACOBONDVIOLETTA [facility] CPT-4: 45287 03/06/2013 ([id number]) OFFICE/OUTPATIENT VISIT EST Diagnosis: CEPHALGIA, TENSION[ICD9: 307.81] Diagnosis: MIGRAINE NOS/NOT INTRCBL[ICD9: 346.90] Diagnosis: Cervicalgia[ICD9: 723.1] Alexandra FORDE MacyAri GIULIA IZABELLA [facility] CPT-4: 95409 11/29/2012 ([id number]) OFFICE/OUTPATIENT VISIT EST Diagnosis: Jaw pain[ICD9: 784.92] Diagnosis: Shoulder pain[ICD9: 719.41] Diagnosis: Family history of premature coronary artery disease[ICD9: V17.3] Alexandra FORDE MacyAri [facility] CPT-4: 00379 09/26/2012 ([id number]) OFFICE/OUTPATIENT VISIT EST Diagnosis: ABDOMINAL PAIN[ICD9: 789.00] Diagnosis: Constipation[ICD9: 564.00] Diagnosis: Hematuria[ICD9: 599.70] Alexandra FORDE MacyAri [facility] CPT-4: 65307 07/11/2012 ([id number]) OFFICE/OUTPATIENT VISIT EST Diagnosis: ANEMIA NOS[ICD9: 285.9] Alexandra FORDE MacyAri [facility] CPT-4: 79175 02/17/2012 ([id number]) PREV VISIT EST AGE 40-64 Diagnosis: ROUTINE MEDICAL EXAM[ICD9: V70.0] Diagnosis: HYPOTHYROIDISM[ICD9: 244.9] Diagnosis: HYPERLIPIDEMIA NEC/NOS[ICD9: 272.4] Diagnosis: Obstructive sleep apnea[ICD9: 327.23] Alexandra ISLAS MacyAri DEANNE [facility] CPT-4: 10394 02/02/2012 ([id number]) OFFICE/OUTPATIENT VISIT EST Diagnosis: URINARY TRACT INFECTION[ICD9: 599.0] Alexandra LOZANO MacyAri DEANNE DO [facility] CPT-4: 99056 08/27/2011 ([id number]) OFFICE/OUTPATIENT VISIT EST Diagnosis: URINARY TRACT INFECTION[ICD9: 599.0] Diagnosis: ACUTE CYSTITIS[ICD9: 595.0] Alexandra FORDE SAri O ZE DO [facility] CPT-4: 31203 08/17/2011 OFFICE/OUTPATIENT VISIT EST Diagnosis: URINARY TRACT INFECTION[ICD9: 599.0] Steph Bowen EDMUND BLAKE MacyAri DEANNE DO [facility] CPT-4: 28538 10/14/2010 Plan of Care Planned Activity Notes Codes Status Date Visit Diagnosis Plan: Ventral hernia Discussion: See s urgery for repair Discussed signs of incarceration or strangulation then is to report to ER ICD-9 : 553.20 ICD-10 : K43.9 04/10/2019 Care Plan: Referral Order SNOMED-CT : 30 [id number] Pending 04/10/2019 Visit Diagnosis Plan: Thrombocytosis Discussion: [...] : G47.00 02/14/2019 Appointment: Alexandra Carroll WPtel: [address] [place], [place] [id number] US FOLLOW UP 02/14/2019 Appointment: Alexandra Carroll WPtel: [address] [place], [place] [address] US CANCELED 02/12/2019 Visit Diagnosis Plan: Small bowel obstruction Discussi on: S/P surgery in September with postop complications of wound dehiscence ICD-9 : 560.9 ICD-10 : K56.609 01/16/2019 Visit Diagnosis Plan: Onychomycosis Discussion: Send n ail for culture ICD-9 : 110.1 ICD-10 : B35.1 01/16/2019 Appointment: Alexandra Carroll WPtel: [phone] [facility] [place] [facility] US MEDICATION REVIEW 01/16/2019 Appointment: Alexandra Carroll WPtel: [phone] [facility] [place] [facility] US CANCELED 12/12/2018 Visit Diagnosis Plan: Radiculopathy, lumbosacral regio n Discussion: Had left SI joint injection by Dr. Baig about 2 weeks ago and has fwup with him ICD-9 : 724.4 ICD-10 : M54.17 09/18/2018 Visit Diagnosis Plan: Diarrhea, unspecified Discussion : Due for updated colonoscopy ICD-9 : 787.91 ICD-10 : R19.7 09/18/2018 Appointment: Alexandra Carroll WPtel: [address] [place] [address] US PATIENT CONSULT 15 09/18/2018 Care Plan: Referral Order SNOMED-CT : 30 [id number] Pending 09/18/2018 Visit Diagnosis Plan: Sacroiliitis, not [...] : G47.33 08/10/2018 Appointment: Alexandra Carroll WPtel: [facility] [place] [facility] US MEDICATION REVIEW 08/10/2018 Care Plan: Referral Order SNOMED-CT : 30 [id number] Pending 08/10/2018 Appointment: Alexandra Carrolltel: [address] [place], [place] [address] US CANCELED 04/17/2018 Visit Diagnosis Plan: Fracture [...] : M54.17 03/27/2018 Appointment: Alexandra Carroll WPtel: [address] [place], [place] [phone] US FOLLOW UP 03/27/2018 Visit Diagnosis Plan: [...] : M51.36 02/23/2018 Appointment: Alexandra Carroll WPtel: [address] [place], [place] [phone] US FOLLOW UP 02/23/2018 Patient Education: gabapentin- [employer] Coupon [phone] [email or web address] Completed 02/23/2018 Visit Diagnosis Plan: Fracture of unspec ified part of left clavicle, subsequent encounter for fracture with routine healing Discussion: Hold on PT and do home stretches Trial of gabapentin Recheck 4 weeks ICD-9 : V54.11 ICD-10 : S42.002D 01/24/2018 Appointment: Alexandra Carroll WPtel: [address] [place] [address] US FOLLOW UP 01/24/2018 Visit Diagnosis Plan: Migraine, unspecif ied, not intractable, without status migrainosus Discussion: Toradol and phenergan given ICD-9 : 346.90 ICD-10 : G43.909 01/17/2018 Appointment: Alexandra Carroll WPtel: [address] [place] [address] US ACUTE ILLNESS 01/17/2018 Visit Diagnosis Plan: [...] : R33.9 12/29/2017 Appointment: Alexandra Carroll WPtel: [address] [place] [address] ACUTE ILLNESS 12/29/2017 Care Plan: US EXAM PELVIC COMPLETE LOINC : 20238-4 Pending 12/29/2017 Care Plan: ECHO EXAM OF ABDOMEN LOINC : 40223-2 Pending 12/29/2017 Care Plan: Referral Order SNOMED-CT : 30 3380096 Pending 12/29/2017 Visit Diagnosis Plan: Fracture of unspec ified part of left clavicle, subsequent encounter for fracture with routine healing Discussion: Start PT in another 7-14 days Off work for the rest of this week then may return to part-time work on 12/12/17 Fwup in 4 weeks ICD-9 : V54.11 ICD-10 : S42.002D 12/06/2017 Appointment: Alexandra Carroll WPtel: [address] [place], [place] [phone] FOLLOW UP 12/06/2017 Patient Education: Patient Medication [...] : Z88.1 12/01/2017 Appointment: Vandana Crowe [address] [facility] FOLLOW UP 12/01/2017 Patient Education: Patient [...] : L03.113 11/30/2017 Appointment: Vandana Crowe [address] [facility] 11/30/2017 Patient Education: Patient Medication Summary [...] ICD-10 : L03.113 11/29/2017 Appointment: Vandana Crowe [address] [place], [place] [phone] FOLLOW UP 11/29/2017 Patient Education: Patient Medication [...] : L03.113 11/28/2017 Appointment: Vandana Crowe [address] [facility] ACUTE ILLNESS 11/28/2017 Patient Education: Patient [...] M47.899 11/17/2017 Appointment: Alexandra Carroll WPtel: [phone] [facility] [place] [facility] MEDICATION REVIEW 11/17/2017 Patient Education: Patient Medication Summary Completed 11/17/2017 Care Plan: Referral Order SNOMED-CT : 30 [id number] Pending 11/17/2017 Patient Education: Patient Medication Summary Completed 10/12/2017 Care Plan: MRI LUMBAR SPINE W/O DYE LOIN C : 17521-7 Pending 10/12/2017 Care Plan: X-RAY EXAM L-S SPINE 2/3 VWS LOINC : 26300-0 Pending 10/11/2017 Visit Diagnosis Plan: Other retention [...] pack to start tomorrow[facility] with inversion table. instructed patient to go to ED immediately if she develops any incontinence with bowel or bladder. patient verbalized understanding. if no improvement, will need updated MRI and referral to surgeon. ICD-9 : 724.4 ICD-10 : M54.17 10/10/2017 Appointment: Vandana Crowe [address] [place], [place] [id number] ACUTE ILLNESS 10/10/2017 Patient Education: Patient Medication Summary Completed 10/10/2017 [facility] [facility] 08/01/2017 Visit Diagnosis Plan: Other intervertebral disc degene ration, lumbar region Discussion: Core strengtheing and inversion table and if worsening will need updated MRI ICD-9 : 722.52 ICD-10 : M51.36 06/22/2017 Visit Diagnosis Plan: Encounter for gene [facility] adult medical examination without abnormal findings Discussion: Lab dis ussed Follow Up: 6 months ICD-9 : V70.0 ICD-10 : Z00.00 06/22/2017 Appointment: Alexandra Carroll WPtel: [phone] Annual Well Visit 06/22/2017 Patient Education: Patient Medication Summary Completed 06/22/2017 Patient Education: Patient Medication Summary Completed 06/16/2017 Care Plan: COMPREHEN METABOLIC PANEL [place] : 76783-0 Pending 06/16/2017 Care Plan: ASSAY THYROID STIM HORMONE Pen ding 06/16/2017 Care Plan: ASSAY OF FREE THYROXINE Pendin g 06/16/2017 Care Plan: LIPID PANEL LOINC : 79820-6 Pending 06/16/2017 Care Plan: CBC Pending 06/16/2017 [...] Fluids... 03/28/2017 Appointment: Alexandra Carroll WPtel: [phone] [facility] [place] [facility] ACUTE ILLNESS 03/28/2017 Patient Education: Patient Medication Summary Completed 03/28/2017 Visit Diagnosis Plan: Acute sinusitis, unspecified Dis cussion: cefdinir and medrol dose pack prescribed to be taken as directed. tylenol/ibuprofen as needed. educated on importance of taking singulair or zyrtec daily to prevent worsening symptoms. keep hydrated. ICD-9 : 461.9 ICD-10 : J01.90 02/16/2017 Appointment: Vandana Crowe [address] [place] [address] ACUTE ILLNESS 02/16/2017 Patient Education: Patient Medication Summary Completed 02/16/2017 Appointment: Alexandra Carroll WPtel: [address] [place] [address] US INJECTION 11/02/2016 Patient Education: Patient Medication Summary Completed 11/02/2016 Visit Diagnosis Plan: Pain in thoracic spine Discussio n: Increase flexeril to 10mg po BID Add Mobic 15mg po daily Towel stretch May see chiropractor to adjust ribs Notify if persists or worsening ICD-9 : 724.1 ICD-10 : M54.6 09/06/2016 Appointment: Alexandra Carroll WPtel: [address] [place] [address] ACUTE ILLNESS 09/06/2016 Patient Education: Patient Medication Summary Completed 09/06/2016 Visit Plan: Due to hx, ERx Cefdinir and Prednisone (discussed risks for both) Given bottle for nasal saline rinses Tylenol/Ibuprofen prn pain/fever Fluids/rest Discussed s/s of worsening, RTC if no improvement 08/16/2016 Appointment: Vidya Manuel WPtel: [address] [place] [address] ACUTE ILLNESS 08/16/2016 Patient Education: Patient Medication [...] : F51.01 07/19/2016 Appointment: Alexandra Carroll WPtel: [address] [place], [place] [id number] 07/15 confirmed`sl FOLLOW UP 07/19/2016 Patient Education: [...] : G47.33 07/06/2016 Appointment: Alexandra Carroll WPtel: [address] [place], [place] [id number] 07/05 confirmed-sp FOLLOW UP 07/06/2016 Patient Education: [...] : J30.1 06/15/2016 Appointment: Alexandra Carroll WPtel: [address] [place], [place] [id number] 06/14 lm ~sl ACUTE ILLNESS 06/15/2016 Patient Education: Patient Medication Summary Completed 06/15/2016 Visit Diagnosis Plan: Migraine, unspecif ied, not intractable, without status migrainosus Discussion: Injection as above Drink ple nty of water No driving x 6 hours Rest No OTC nsaids today Follow up PRN Refill called of claritin-d ICD-9 : 346.90 ICD-10 : G43.909 04/09/2016 Appointment: Nae Mckay [address] [place], [place] [id number] ACUTE ILLNESS 04/09/2016 Patient Education: Patient Medication [...] : E78.2 03/17/2016 Appointment: Alexandra Carroll WPtel: [address] [place], [place] [id number] 03/16 nvm~sl 03/17 confirmed`sl FOLLOW UP 0 03/17/2016 Patient Education: Patient Medication Summary Completed 03/17/2016 Appointment: Alexandra Carroll WPtel: [address] [place], [place] [id number] [place] 03/11 lm~sl 03/15lm `sl 03/15 confirmed`sl FOLLOW U P 03/15/2016 Visit Plan: Discussed labeled indication s for benzos. Since xanax is not labeled for sleep and she has never tried anything else, encouraged her to trial restoril(another benzo) since it is labeled for sleep. She agrees with this trial. Rx called to [facility] after cost comparison which is nearly the same robert. If working well, continue the t3maego office visits. Call if not working well, and will restart xanax at HS for sleep. 11/13/2015 Appointment: Nae Mckay [address] [place], [place] [id number] 11/11 confirmed~sl FOLLOW UP 11/13/2015 Patient Education: Patient Medication Summary Completed 11/13/2015 Appointment: Alexandra Carroll WPtel: [address] [place] [address] Suture Removal 06/23/2015 Patient Education: Patient Medication Summary Completed 06/23/2015 Visit Plan: Removal of lesion above usin g 3-0 punch biopsy Return in 10 days for suture removal 06/12/2015 Appointment: Alexandra Carroll WPtel: [address] [place] [address] 06/10 lm ~sl ACUTE ILLNESS 06/12/2015 Patient Education: Patient Medication Summary Completed 06/12/2015 Referral: Soy Garcia WPtel: [facility] [address] Schedule patient around lunch time and 3 weeks from 04/22/2015 ~ Spoke with Kiesha at Dr. Sandoval [facility] and 04/24/15 and scheduled the patient ~ 04/24/15 Patient is informed~ 06/03 Patient canceled the appointment ~ Patient did not show up for scheduled appointment-sp Appoint ment Requested 05/21/2015 Appointment: Alexandra Carroll WPtel: [address] [place] [address] 05/05/2015 Patient Education: Patient Medication Summary Completed 05/05/2015 Visit Plan: Starts PT today Schedule wit h Dr. Garcia for epidural CT abdomen/pelvis results discussed Sees [facility] in April and will get checked then 04/22/2015 Appointment: Alexandra Carroll WPtel: [address] [place] [address] 04/21 confirmed~lb ACUTE ILLNESS 04/22/2015 Patient Education: Patient Medication Summary Completed 04/22/2015 Referral: [place] Hernandez WPtel: [address] [place] [address] Referral Initiated 04/10/2015 Patient Education: Patient Medication Summary Completed 04/09/2015 Visit Plan: Start with lumosacral spine x-ray--will likely need MRI of L/S spine x-ray Needs urology--has had to have bladder stretched in past Tivorbex 03/24/2015 Appointment: Alexandra Carroll WPtel: [address] [place], [place] [phone] 03/21/15 appt confirmed cn ACUTE ILLNESS 03/24 Patient Education: Patient Medication Summary Completed 03/24/2015 Visit Plan: Saline nasal flushes prn. Ty lenol/Motrin prn headache. Notify if persists/symptoms worsening. Cefuroxime to cover both sinuses and UTI Culture urine Check lab 02/27/2015 Appointment: Alexandra Carroll WPtel: [address] [place] [address] 02/26/15 vm to confirm and need new insu meri on file is inactive cn....02/27/15 appt confirmed cn ACUTE ILLNESS 015 Patient Education: Patient Medication Summary Completed 02/27/2015 Visit Plan: Lab discussed Stop simvastat in Check lipids in 6mos Continue all other meds at current dose Had Pap and Mammo 3 weeks ago 06/13/2014 Appointment: Alexandra Carroll WPtel: [address] [place] [address] Annual Well Visit 06/13/2014 Patient Education: Patient Medication Summary Completed 06/13/2014 Appointment: Shalini Walters WPtel: [address] [place] [address] ACUTE ILLNESS 04/18/2014 Patient Education: Patient Medication Summary Completed 04/18/2014 Visit Plan: Check lab in May fwup Can try decreasing xanax to 1mg q HS with melatonin 5-10mg q HS 12/05/2013 Appointment: Alexandra Carroll WPtel: [address] [place] [address] 12/04 vm FOLLOW UP 12/05/2013 Patient Education: Patient Medication Summary Completed 12/05/2013 Appointment: Alexandra Carroll WPtel: [address] [place], [place] [phone] [place] FOLLOW UP 06/05/2013 Patient Education: Patient Medication Summary Completed 06/05/2013 Appointment: Alexandra Carroll WPtel: [address] [place] [address] FOLLOW UP 05/22/2013 Patient Education: Patient Medication Summary Completed 05/22/2013 Visit Plan: Zovirax for 2wks Notify if p ain worsens or if persists 04/05/2013 Appointment: Alexandra Carroll WPtel: [address] [place] [address] ACUTE ILLNESS 04/05/2013 Patient Education: Patient Medication Summary Completed 04/05/2013 Visit Plan: Keep Wellbutrin at current d ose Pt did see for counseling 03/26/2013 Appointment: Alexandra Carroll WPtel: [address] [place] [address] ACUTE ILLNESS 03/26/2013 Patient Education: Patient Medication Summary Completed 03/26/2013 Visit Plan: Continue citalopram at curre nt dose Increase xanax to 1-2mg q HS for sleep Add Wellbutrin Sr 100mg q AM Start Counseling 03/06/2013 Appointment: Alexandra Carroll WPtel: [address] [place] [address] ACUTE ILLNESS 03/06/2013 Patient Education: Patient Medication Summary Completed 03/06/2013 Appointment: Alexandra Carroll WPtel: [address] [place] [address] ACUTE ILLNESS 11/29/2012 Patient Education: Patient Medication Summary Completed 11/29/2012 Appointment: Alexandra Carroll WPtel: [address] [place] [address] ACUTE ILLNESS 09/26/2012 Patient Education: Patient Medication Summary Completed 09/26/2012 Appointment: Alexandra Carroll WPtel: [address] [place] [address] ACUTE ILLNESS 07/11/2012 Patient Education: Patient Medication Summary Completed 07/11/2012 Appointment: Alexandra Carroll WPtel: [address] [place] [address] [place] LAB 02/17/2012 Patient Education: Patient Medication Summary Completed 02/17/2012 Visit Plan: Check fasting lab Start annie y ca with Vit D Cont CPAP Mammo up-to-date Hemoccult card given 02/02/2012 Appointment: Alexandra Carroll WPtel: [address] [place] [address] PHYSICAL 02/02/2012 Patient Education: Patient Medication Summary Completed 02/02/2012 Appointment: Alexandra Carroll WPtel: [address] [place] [address] UA 08/27/2011 Patient Education: Patient Medication Summary Completed 08/27/2011 Visit Plan: Levaquin and Diflucan for 1w k Then cipro QOD for prophylaxis 08/17/2011 Appointment: Alexandra Carroll WPtel: [address] [place] [address] FOLLOW UP 08/17/2011 Patient Education: Patient Medication Summary Completed 08/17/2011 Appointment: Alexandra Carroll WPtel: [address] [place] [address] UA 12/28/2010 Patient Education: Patient Medication Summary Completed 12/28/2010 Appointment: Alexandra Carroll WPtel: [address] [place], [place] [phone] UA 11/09/2010 Patient Education: Patient Medication Summary Completed 11/09/2010 Appointment: Alexandra Carroll WPtel: [address] [place] [address] UA 10/29/2010 Patient Education: Patient Medication Summary Completed 10/29/2010 Appointment: Steph Bowen WPtel: [address] [place] [address] ACUTE ILLNESS 10/14/2010 Patient Education: Patient Medication Summary Completed 10/14/2010 Referral: Florian Baig WPtel: [facility] [address], [address] Referral Initiated Referral: Paulo Albert WPtel: [phone] [id number] [place] Referral Appointment Requested Referral: Luis Enrique Jasso WPtel: [facility] [address], [address] Referral Appointment Requested Referral: Florian Baig WPtel: [facility] [address] Referral Appointment Requested Referral: Caleb Glaser WPtel: [address] Referral Appointment Requested Referral: Florian Baig WPtel: [facility] [address] Referral Initiated Referral: Florian Baig WPtel: [facility] [address] Referral Appointment Requested Instructions Comment . [...] agrees with this trial. Rx called to [facility] after cost comparison which is nearly the same robert. If working well, continue the n7dauri office visits. Call if not working well, and will restart xanax at HS for sleep. . Removal of lesion above using 3-0 punc h biopsy Return in 10 days for suture removal . Starts PT today Schedule with Dr. Garcia for epidural CT abdomen/pelvis results discussed Sees [facility] in April and will get checked then [...]
--- OUTSIDE RECORDS SUMMARY | 2019-09-02 00:29 | XMS REPORT | CCD ---
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 Phone Alexandra Carroll D.O., PP Unavailable CCM Unavailable Summary Purpose Interface Exchange Insurance Providers Payer name Policy type / Coverage type Covered alliance party ID Effective Begin Date Effective End Date WPS MEDICARE PART B [place] Medicare Part B [id number] 2019 Unknown [employer] [place] Medicare Part B [id number] 2019 Unknown Family History Family History data not found Social History Social History Element Codes Description Effective Dates Tobacco history SNOMED CT: 365442960 Nonsmoker 10/14/2010 Allergies, Adverse Reactions, Alerts Substance Reaction Codes Entered Date Inactivated Date Status MORPHINE SULFATE RxNorm: 9909535 10/14/2010 No Inactive Da te Active CEPHALOSPORINS [...] Fill Instructions cyclobenzaprine 10 mg tablet RxNorm: 478085 1 Tablet(s) Oral three times a day as needed for muscle spasm 02/12/2019 02/12/2019 Inactive Xanax 1 mg tablet RxNorm: 158077 1-2 Tablet(s) Oral e very night at bedtime as needed for sleep 02/09/2019 03/10/2019 Inactive Generic For:LAVELLE AX 1MG 10/11/2016 11:15:13 AM Xanax 1 mg tablet RxNorm: 182215 1-2 Tablet(s) Oral e very night at bedtime as needed for sleep 01/22/2019 02/08/2019 Inactive Generic For:LAVELLE AX 1MG 10/11/2016 11:15:13 AM Celexa 40 mg tablet RxNorm: 999769 1 Tablet(s) Oral QD 01/17/2019 Active - First Attempt Ref: [id number] Xanax 1 mg tablet RxNorm: 021083 1 Tablet(s) Oral every night a t bedtime 01/08/2019 01/21/2019 Inactive levothyroxine 88 mcg tablet RxNorm: 407982 TAKE 1 TABLET BY NINA TH DAILY 12/19/2018 06/16/2019 Active - First Attempt Ref: [id number] Xanax 1 mg tablet RxNorm: 660268 1 Tablet(s) Oral every night a t bedtime 12/06/2018 01/05/2019 Inactive Singulair 10 mg tablet RxNorm: 625461 1 Tablet(s) Oral every ni ght at bedtime 11/23/2018 11/17/2019 Active - First Attempt Ref: [id number] Celexa 40 mg tablet RxNorm: 753696 1 Tablet(s) Oral 11/23/20182018 Inactive - First Attempt Ref: [id number] cyclobenzaprine 10 mg tablet RxNorm: 157329 1 Tablet(s) Oral three times a day as needed for muscle spasm 11/23/2018 02/11/2019 Inactive Xanax 1 mg tablet RxNorm: 117637 1 Tablet(s) PO QHS 11/06/20182018 Inactive Xanax 1 mg tablet RxNorm: 036593 1 Tablet(s) PO QHS 09/26/20182018 Inactive Singulair 10 mg tablet RxNorm: 662907 TAKE 1 TABLET BY MOUTH EVERY NIGHT AT BEDTIME 08/16/2018 11/22/2018 Inactive - First Attempt Ref: 210399038 Xanax 1 mg tablet RxNorm: 901358 1 Tablet(s) PO QHS 08/01/20182018 Inactive levothyroxine 88 mcg tablet RxNorm: 209021 TAKE 1 TABLET BY NINA TH DAILY 07/31/2018 12/18/2018 Inactive - First Attempt Ref: 326090480 Celexa 40 mg tablet RxNorm: 224404 TAKE 1 TABLET BY MOUTH DAILY 04/201811/22/2018 Inactive - First Attempt Ref: 4656653 54 bupropion HCl SR 100 mg tablet,12 hr sustained-release RxNor m: 063343 1 Tablet(s) PO BID 07/12/2018 07/06/2019 Active - Ref: [id number] 7 Claritin-D 24 Hour 10 mg-240 mg tablet,extended release RxNo rm: 8468748 1 Tablet(s) PO QD 06/29/2018 2018 Inactive Claritin-D 24 Hour 10 mg-240 mg tablet,extended release RxNo rm: 0683869 1 Tablet(s) PO QD 06/29/2018 2018 Inactive Xanax 1 mg tablet RxNorm: 151400 1-2 Tablet(s) PO QHS as needed for sleep 05/26/2018 06/23/2018 Inactive Generic For:XANAX 1M G 10/11/2016 11:15:13 AM Xanax 1 mg tablet RxNorm: 163572 1-2 Tablet(s) PO QHS as needed for sleep 03/28/2018 05/25/2018 Inactive Generic For:XANAX 1M G 10/11/2016 11:15:13 AM Macrobid 100 mg capsule RxNorm: 979425 1 Capsule(s) PO BID 03/27/1903/31/2018 Inactive gabapentin 300 mg capsule RxNorm: 576370 1 Capsule(s) PO QHS 201703/26/2018 Inactive Claritin-D 24 Hour 10 mg-240 mg tablet,extended release RxNo rm: 3160733 1 Tablet(s) PO QD 01/26/2018 02/24/2018 Inactive gabapentin 100 mg capsule RxNorm: 914320 1 Capsule(s) P O QHS for 1 week then 2 po q HS for 2 weeks then 3 po q HS 01/24/2018 03/26/2018 Inactive Xanax 1 mg tablet RxNorm: 521390 1-2 Tablet(s) PO QHS as needed for sleep 01/24/2018 03/24/2018 Inactive Generic For:XANAX 1M G 10/11/2016 11:15:13 AM prednisone 20 mg tablet RxNorm: 480387 1 Tablet(s) PO T ID for 3 days then 1 po BID for 3 days then one daily for 3 days 12/29/2017 03/26/2018 Inactiv e prednisone 20 mg tablet RxNorm: 479903 3 Tablet(s) PO T ID for 3 days then 1 po BID for 3 days then one daily for 3 days 12/29/2017 12/29/2017 Inactiv e Macrobid 100 mg capsule RxNorm: 433229 1 Capsule(s) PO BID 12/30/19 18 01/02/2018 Inactive Xanax 1 mg tablet RxNorm: 353474 1-2 Tablet(s) PO QHS as needed for sleep 12/28/2017 01/23/2018 Inactive Generic For:XANAX 1M G 10/11/2016 11:15:13 AM Medrol (Walter) 4 mg tablets in a dose pack RxNorm: 932381 Tablet(s) PO take as directed 12/01/2017 03/26/2018 Inactive Keflex 750 mg capsule RxNorm: 488156 1 Capsule(s) PO BID 12/01/2017 1 Inactive clindamycin HCl 300 mg capsule RxNorm: 281347 2 Capsule(s) PO TID 1 12/08/2017 Inactive Xanax 1 mg tablet RxNorm: 693440 1-2 Tablet(s) PO QHS as needed for sleep 11/28/2017 12/27/2017 Inactive Generic For:XANAX 1M G 10/11/2016 11:15:13 AM mupirocin 2 % topical ointment RxNorm: 400327 1 Application OTIC BI D 11/28/2017 08/09/2018 Inactive Xanax 1 mg tablet RxNorm: 010171 1-2 Tablet(s) PO QHS as needed for sleep 10/27/2017 11/25/2017 Inactive Generic For:XANAX 1M G 10/11/2016 11:15:13 AM Macrobid 100 mg capsule RxNorm: 927330 1 Capsule(s) PO BID 10/11/19 18 10/16/2017 Inactive Medrol (Walter) 4 mg tablets in a dose pack RxNorm: 837677 Tablet(s) PO take as directed 10/10/2017 11/16/2017 Inactive Xanax 1 mg tablet RxNorm: 002101 1-2 Tablet(s) PO QHS as needed for sleep 09/28/2017 10/26/2017 Inactive Generic For:XANAX 1M G 10/11/2016 11:15:13 AM Xanax 1 mg tablet RxNorm: 912837 1-2 Tablet(s) PO QHS as needed for sleep 08/30/2017 09/27/2017 Inactive Generic For:XANAX 1M G 10/11/2016 11:15:13 AM Xanax 1 mg tablet RxNorm: 383194 1-2 Tablet(s) PO QHS as needed for sleep 08/30/2017 08/29/2017 Inactive Generic For:XANAX 1M G 10/11/2016 11:15:13 AM Xanax 1 mg tablet RxNorm: 503989 1-2 Tablet(s) PO QHS as needed for sleep 08/01/2017 08/29/2017 Inactive Generic For:XANAX 1M G 10/11/2016 11:15:13 AM Xanax 1 mg tablet RxNorm: 211129 1-2 Tablet(s) PO QHS as needed for sleep 06/29/2017 2017 Inactive Generic For:XANAX 1M G 10/11/2016 11:15:13 AM Claritin-D 24 Hour 10 mg-240 mg tablet,extended release RxNo rm: 5046720 1 Tablet(s) PO QD 06/29/2017 2017 Inactive levothyroxine 88 mcg tablet RxNorm: 693863 1 Tablet(s) PO QD 201709/10/2017 Inactive Xanax 1 mg tablet RxNorm: 575553 1-2 Tablet(s) PO QHS as needed for sleep 05/26/2017 06/28/2017 Inactive Generic For:XANAX 1M G 10/11/2016 11:15:13 AM Claritin-D 24 Hour 10 mg-240 mg tablet,extended release RxNo rm: 5210854 1 Tablet(s) PO QD 05/26/2017 06/24/2017 Inactive bupropion HCl SR 100 mg tablet,12 hr sustained-release RxNor m: 729605 Tablet(s) Take 1 tablet by mouth two times daily 04/06/2017 12/31/2017 Inactive - Ref: [id number] Xanax 1 mg tablet RxNorm: 031638 1-2 Tablet(s) PO QHS as needed for sleep 03/24/2017 05/22/2017 Inactive Generic For:XANAX 1M G 10/11/2016 11:15:13 AM Medrol (Walter) 4 mg tablets in a dose pack RxNorm: 253104 Tablet(s) P O 02/16/2017 03/27/2017 Inactive Xanax 1 mg tablet RxNorm: 844794 Tablet(s) TAKE ONE T O TWO TABLETS BY MOUTH AT BEDTIME NEEDED 02/16/2017 03/17/2017 Inactive Generic For:XA NAX 1MG 10/11/2016 11:15:13 AM Claritin-D 24 Hour 10 mg-240 mg tablet,extended release RxNo rm: 6309298 1 Tablet(s) PO QD 02/16/2017 04/16/2017 Inactive cefdinir 300 mg capsule RxNorm: 460193 2 Capsule(s) PO QD 02/16/2017 02/25/2017 Inactive Celexa 40 mg tablet RxNorm: 914808 Tablet(s) Take 1 tablet by m outh daily 12/23/2016 09/18/2017 Inactive - Ref: [id number] Xanax 1 mg tablet RxNorm: 974002 Tablet(s) TAKE ONE T O TWO TABLETS BY MOUTH AT BEDTIME NEEDED 12/16/2016 01/14/2017 Inactive Generic For:XA NAX 1MG 10/11/2016 11:15:13 AM Xanax 1 mg tablet RxNorm: 852707 Tablet(s) TAKE ONE T O TWO TABLETS BY MOUTH AT BEDTIME NEEDED 11/18/2016 12/15/2016 Inactive Generic For:XA NAX 1MG 10/11/2016 11:15:13 AM Xanax 1 mg tablet RxNorm: 714452 TAKE ONE TO TWO TABL ETS BY MOUTH AT BEDTIME NEEDED 10/11/2016 11/17/2016 Inactive Generic For:XANA X 1MG 10/11/2016 11:15:13 AM Mobic 15 mg tablet RxNorm: 799567 1 Tablet(s) PO QD 09/06/20162016 Inactive Claritin-D 24 Hour 10 mg-240 mg tablet,extended release RxNo rm: 0800729 1 Tablet(s) PO QD 09/02/2016 11/30/2016 Inactive prednisone 20 mg tablet RxNorm: 581440 1 Tablet(s) PO T ID for 3 days then 1 po BID for 3 days then one daily for 3 days 08/16/2016 03/27/2017 Inactiv e cefdinir 300 mg capsule RxNorm: 794284 2 Capsule(s) PO QD 08/16/2016 09/05/2016 Inactive Xanax 1 mg tablet RxNorm: 831133 TAKE ONE TO TWO TABL ETS BY MOUTH AT BEDTIME NEEDED 08/05/2016 10/11/2016 Inactive Generic For:XANA X 1MG 08/05/2016 2:27:03 PM08/04/2016 4:15:22 PM Singulair 10 mg tablet RxNorm: 589616 1 Tablet(s) PO QHS 07/06/2016 0 09/03/2016 Inactive prednisone 20 mg tablet RxNorm: 652293 1 Tablet(s) PO T ID for 3 days then 1 po BID for 3 days then one daily for 3 days 06/15/2016 07/05/2016 Inactiv e Singulair 10 mg tablet RxNorm: 115091 1 Tablet(s) PO QHS 06/15/2016 0 07/05/2016 Inactive cefdinir 300 mg capsule RxNorm: 961310 2 Capsule(s) PO QD 06/15/2016 07/05/2016 Inactive Xanax 1 mg tablet RxNorm: 262852 1-2 Tablet(s) PO QHS 05/21/201610/2016 Inactive Claritin-D 24 Hour 10 mg-240 mg tablet,extended release RxNo rm: 8550951 1 Tablet(s) PO QD 04/09/2016 07/07/2016 Inactive Xanax 1 mg tablet RxNorm: 678906 1-2 Tablet(s) PO QHS 03/23/201604/29 Inactive levothyroxine 88 mcg tablet RxNorm: 716933 1 Tablet(s) PO QD 201606/13/2017 Inactive bupropion HCl SR 100 mg tablet,sustained-release RxNorm: 993 503 Take 1 tablet by mouth two times daily 03/15/2016 12/09/2016 Inactive - Ref: 20 6358238 Celexa 40 mg tablet RxNorm: 707415 Take 1 tablet by mouth daily 12/23/2016 Inactive - Ref: 667523235 Xanax 1 mg tablet RxNorm: 379788 1-2 Tablet(s) PO QHS 02/17/201603/01 Inactive levothyroxine 88 mcg tablet RxNorm: 854570 1 Tablet(s) PO QD 201502/22/2016 Inactive Xanax 1 mg tablet RxNorm: 950710 1-2 Tablet(s) PO QHS 11/25/201511/29 Inactive levothyroxine 88 mcg tablet RxNorm: 638923 1 Tablet(s) PO QD 201511/24/2015 Inactive temazepam 30 mg capsule RxNorm: 275075 1 Capsule(s) PO QHS 11/13/19 16 11/24/2015 Inactive Xanax 1 mg tablet RxNorm: 329420 1-2 Tablet(s) PO QHS 09/15/201510/29 Inactive Celexa 40 mg tablet RxNorm: 738043 1 Tablet(s) PO QD 1 Tablet(s ) PO QD 09/10/2015 09/16/2015 Inactive bupropion HCl SR 100 mg tablet,sustained-release RxNorm: 993 503 1 Tablet(s) PO BID 09/10/2015 09/23/2015 Inactive Xanax 1 mg tablet RxNorm: 578341 1-2 Tablet(s) PO QHS 09/10/201508/28 Inactive Xanax 1 mg tablet RxNorm: 864667 1-2 Tablet(s) PO QHS 08/11/201508/28 Inactive cyclobenzaprine 10 mg tablet RxNorm: 500274 1 Tablet(s) PO TID prn spasm 07/09/2015 11/23/2018 Inactive Celexa 40 mg tablet RxNorm: 848689 1 Tablet(s) PO QD 06/06/201508/03 Inactive Xanax 1 mg tablet RxNorm: 747967 1-2 Tablet(s) PO QHS 06/04/201505/2015 Inactive levothyroxine 88 mcg tablet RxNorm: 982606 1 Tablet(s) PO QD 201511/23/2015 Inactive Ceftin 500 mg tablet RxNorm: 005310 1 Tablet(s) PO BID 05/05/2015 Inactive Ceftin 500 mg tablet RxNorm: 677812 1 Tablet(s) PO BID 05/05/201507/2015 Inactive meloxicam 15 mg tablet RxNorm: 321619 1 Tablet(s) PO QD 04/16/2015 Inactive meloxicam 15 mg tablet RxNorm: 600248 1 Tablet(s) PO QD 04/16/2015 Inactive diclofenac sodium 75 mg tablet,delayed release RxNorm: 87026 6 1 Tablet(s) PO BID 04/04/2015 04/15/2015 Inactive diclofenac sodium 75 mg tablet,delayed release RxNorm: 00552 6 1 Tablet(s) PO BID 04/04/2015 04/03/2015 Inactive Tivorbex 40 mg capsule RxNorm: 7420676 1 Capsule(s) PO TID 03/24/19 16 04/02/2015 Inactive bupropion HCl SR 100 mg tablet,sustained-release RxNorm: 993 503 1 Tablet(s) PO BID 03/11/2015 09/06/2015 Inactive cyclobenzaprine 10 mg tablet RxNorm: 204562 1 Tablet(s) PO TID prn spasm 03/11/2015 07/08/2015 Inactive levothyroxine 88 mcg tablet RxNorm: 117267 1 Tablet(s) PO QD 201405/27/2015 Inactive Claritin-D 24 Hour 10 mg-240 mg tablet,extended release RxNo rm: 3585309 1 Tablet(s) PO QD 02/27/2015 05/27/2015 Inactive cefuroxime axetil 500 mg tablet RxNorm: 266955 1 Tablet(s) PO BID 1 03/12/2015 Inactive Celexa 40 mg tablet RxNorm: 890306 1 Tablet(s) PO QD 02/05/201504/05 Inactive levothyroxine 75 mcg tablet RxNorm: 338875 1 Tablet(s) PO QD 201402/26/2015 Inactive Celexa 40 mg tablet RxNorm: 690422 1 Tablet(s) PO QD 10/09/201402/04 Inactive Activella 1 mg-0.5 mg tablet RxNorm: 3114849 1 Tablet(s) PO QD 08/2802/26/2015 Inactive bupropion HCl SR 100 mg tablet,sustained-release RxNorm: 993 503 1 Tablet(s) PO BID 09/12/2014 03/10/2015 Inactive levothyroxine 75 mcg tablet RxNorm: 193827 1 Tablet(s) PO QD 201412/09/2014 Inactive levothyroxine 75 mcg tablet RxNorm: 311544 1 Tablet(s) PO QD 201409/11/2014 Inactive Celexa 40 mg tablet RxNorm: 232371 1 Tablet(s) PO QD 08/12/201410/08 Inactive Xanax 1 mg tablet RxNorm: 373842 1-2 Tablet(s) PO QHS 08/12/201409/28 Inactive Claritin-D 24 Hour 10 mg-240 mg tablet,extended release RxNo rm: 8940913 1 Tablet(s) PO QD 06/13/2014 09/10/2014 Inactive cyclobenzaprine 10 mg tablet RxNorm: 021116 1 Tablet(s) PO TID prn spasm 06/12/2014 02/26/2015 Inactive Xanax 1 mg tablet RxNorm: 325682 1-2 Tablet(s) PO QHS 05/09/201406/28 Inactive levothyroxine 75 mcg tablet RxNorm: 250890 1 Tablet(s) PO QD 201407/08/2014 Inactive cephalexin 500 mg capsule RxNorm: 942321 1 Capsule(s) PO QOD 201402/26/2015 Inactive simvastatin 10 mg tablet RxNorm: 734489 1 Tablet(s) PO QHS 04/10/19 15 06/12/2014 Inactive Xanax 1 mg tablet RxNorm: 476221 1-2 Tablet(s) PO QHS 04/10/201404/28 Inactive levothyroxine 75 mcg tablet RxNorm: 419983 1 Tablet(s) PO QD 201404/09/2014 Inactive levothyroxine 75 mcg capsule RxNorm: 781972 1 Capsule(s) PO QD 03/3104/10/2014 Inactive Activella 1 mg-0.5 mg tablet RxNorm: 4421671 1 Tablet(s) PO QD 03/0109/11/2014 Inactive bupropion HCl SR 100 mg tablet,sustained-release RxNorm: 993 503 1 Tablet(s) PO BID 03/04/2014 08/30/2014 Inactive Activella 1 mg-0.5 mg tablet RxNorm: 1730650 1 Tablet(s) PO QD 01/2803/18/2014 Inactive levothyroxine 75 mcg capsule RxNorm: 686561 1 Capsule(s) PO QD 12/2904/08/2014 Inactive simvastatin 10 mg tablet RxNorm: 616945 1 Tablet(s) PO QHS 01/10/20 14 04/08/2014 Inactive cyclobenzaprine 10 mg tablet RxNorm: 244607 1 Tablet(s) PO TID prn spasm 01/09/2014 04/08/2014 Inactive Cipro 500 mg tablet RxNorm: 326978 1 Tablet(s) PO BID 12/25/201304/2013 Inactive Cipro 500 mg tablet RxNorm: 667625 1 Tablet(s) PO BID 12/25/201311/29 Inactive bupropion HCl SR 100 mg tablet,sustained-release RxNorm: 993 503 1 Tablet(s) PO QAM 12/11/2013 03/03/2014 Inactive cephalexin 500 mg capsule RxNorm: 424165 1 Capsule(s) PO QOD 201304/09/2014 Inactive Xanax 1 mg tablet RxNorm: 715574 1-2 Tablet(s) PO QHS 10/15/201310/29 Inactive simvastatin 10 mg tablet RxNorm: 945131 1 Tablet(s) PO QHS 10/11/19 14 01/07/2014 Inactive Celexa 40 mg tablet RxNorm: 957536 Tablet(s) PO TAKE 1 TABLET BY MOUTH ONCE DAILY. 09/18/2013 09/17/2013 Inactive Xanax 1 mg tablet RxNorm: 510110 1-2 Tablet(s) PO QHS 08/13/201308/28 Inactive simvastatin 10 mg tablet RxNorm: 235406 1 Tablet(s) PO QHS 07/12/19 14 10/08/2013 Inactive bupropion HCl SR 100 mg tablet,sustained-release RxNorm: 993 503 1 Tablet(s) PO QAM 05/22/2013 11/17/2013 Inactive Pamelor 10 mg capsule RxNorm: 144087 1 Capsule(s) PO QHS for PLATA /sleep 05/22/2013 06/04/2013 Inactive Xanax 1 mg tablet RxNorm: 609234 1-2 Tablet(s) PO QHS 05/15/201305/29 Inactive Pamelor 10 mg capsule RxNorm: 742528 1 Capsule(s) PO QHS for PLATA /sleep 05/15/2013 05/21/2013 Inactive Xanax 1 mg tablet RxNorm: 551271 1 Tablet(s) PO QHS 04/27/20132013 Inactive Zovirax 800 mg tablet RxNorm: 583365 1 Tablet(s) PO TID 04/05/2013 Inactive Xanax 1 mg tablet RxNorm: 174064 1 Tablet(s) PO QHS 04/03/2013 No Sto p Date Active bupropion HCl SR 100 mg tablet,sustained-release RxNorm: 993 503 1 Tablet(s) PO QAM 03/26/2013 05/21/2013 Inactive bupropion HCl SR 100 mg tablet,sustained-release RxNorm: 993 503 1 Tablet(s) PO QAM 03/06/2013 03/25/2013 Inactive Pamelor 10 mg capsule RxNorm: 262523 1 Capsule(s) PO QHS for PLATA /sleep 02/14/2013 05/14/2013 Inactive levothyroxine 75 mcg capsule RxNorm: 573670 1 Capsule(s) PO QD 12/2901/08/2014 Inactive simvastatin 10 mg tablet RxNorm: 169683 1 Tablet(s) PO QHS TAKE 1 TABLET BY MOUTH ONCE DAILY AT BEDTIME. 01/15/2013 07/10/2013 Inactive cyclobenzaprine 10 mg tablet RxNorm: 632194 1 Tablet(s) PO TID prn spasm 12/25/2012 06/22/2013 Inactive Pamelor 10 mg capsule RxNorm: 091698 1 Capsule(s) PO QHS for PLATA /sleep 11/29/2012 02/14/2013 Inactive Celexa 40 mg tablet RxNorm: 789506 Tablet(s) PO TAKE 1 TABLET BY MOUTH ONCE DAILY. 10/11/2012 09/17/2013 Inactive simvastatin 10 mg tablet RxNorm: 994263 Tablet(s) PO TA KE 1 TABLET BY MOUTH ONCE DAILY AT BEDTIME. 10/11/2012 01/14/2013 Inactive simvastatin 10 mg tablet RxNorm: 752740 1 Tablet(s) PO QD 07/11/2012 10/08/2012 Inactive simvastatin 10 mg tablet RxNorm: 552855 1 Tablet(s) PO QD 04/14/2012 07/11/2012 Inactive simvastatin 10 mg tablet RxNorm: 719644 1 Tablet(s) PO QD 04/14/2012 04/13/2012 Inactive Celexa 40 mg tablet RxNorm: 629928 1 Tablet(s) PO QD 03/15/201209/10 Inactive cyclobenzaprine 10 mg tablet RxNorm: 218506 1 Tablet(s) PO TID prn spasm 02/02/2012 02/01/2012 Inactive cyclobenzaprine 10 mg tablet RxNorm: 919391 1 Tablet(s) PO TID prn spasm 02/02/2012 07/30/2012 Inactive Diflucan 100 mg Tab RxNorm: 601548 1 Tablet(s) PO QD 08/17/201108/22 Inactive Cipro 250 mg Tab RxNorm: 361842 1 Tablet(s) PO QD 08/17/2011 10/15/19 Inactive Levaquin 500 mg Tab RxNorm: 215651 1 Tablet(s) PO QD 08/17/201108/22 Inactive Pyridium 200 mg Tab RxNorm: 1253254 1 Tablet(s) PO TID 10/14/2010 Inactive may turn urine orange-red color. Cipro 500 mg Tab RxNorm: 534015 1 Tablet(s) PO BID 10/14/2010 011 Inactive levothyroxine 75 mcg capsule RxNorm: 297217 1 Capsule(s) PO QD 12/3001/14/2011 Inactive loratadine 10 mg tablet RxNorm: 826569 1 Tablet(s) PO QHS No Start Da te Active Vitamin D3 5,000 unit tablet RxNorm: 762706 1 Tablet(s) PO QD No Star t Date Active Nasacort 55 mcg nasal spray aerosol RxNorm: 5761608 2 Sp ray NASAL each nostril QHS No Start Date Active cyclobenzaprine 10 mg tablet RxNorm: 386235 1 Tablet(s) PO TID as needed No Start Date 11/22/2018 Inactive Vitamin D2 1,000 unit capsule RxNorm: 027326 3 Capsule(s) PO QD No Start Date 11/16/2017 Inactive diclofenac sodium 75 mg tablet,delayed release RxNorm: 80376 6 1 Tablet(s) PO BID No Start Date 03/16/2016 Inactive cephalexin 500 mg capsule RxNorm: 331711 1 Capsule(s) PO QOD No Sta rt Date 12/04/2013 Inactive cyclobenzaprine 10 mg tablet RxNorm: 491396 1 Tablet(s) PO QHS No S tart Date 02/01/2012 Inactive hydrocodone 5 mg-acetaminophen 500 mg tablet RxNorm: 070576 1 -2 Tablet(s) PO Q6H as needed No Start Date 08/09/2018 Inactive etodolac 400 mg tablet RxNorm: 002045 1 Tablet(s) PO TID No Start D ate 09/17/2018 Inactive Xanax 1 mg tablet RxNorm: 034798 1 Tablet(s) PO QHS No Start Date 04/2013 Inactive Vitamin D3 1,000 unit capsule RxNorm: 514841 1 Capsule(s) PO QD No Start Date 06/12/2014 Inactive estradiol 2 mg tablet RxNorm: 430932 1/2 Tablet(s) PO QD No Start D ate 03/05/2013 Inactive Celexa 40 mg tablet RxNorm: 149619 1 Tablet(s) PO QD No Start Date Inactive Activella 1 mg-0.5 mg tablet RxNorm: 8160742 1 Tablet(s) PO QD No S tart Date 07/10/2012 Inactive medroxyprogesterone 5 mg tablet RxNorm: 2673820 1/2 Tablet(s) PO QD No Start Date 03/05/2013 Inactive levothyroxine 88 mcg tablet RxNorm: 749658 1 Tablet(s) PO QD No Sta rt Date 02/26/2015 Inactive Keflex 500 mg capsule RxNorm: 020087 1 Capsule(s) PO PRN No Start D ate 08/16/2011 Inactive Activella 1 mg-0.5 mg tablet RxNorm: 3655190 1 Tablet(s) PO QHS No Start Date 03/27/2017 Inactive Activella 1 mg-0.5 mg tablet RxNorm: 3077134 1 Tablet(s) PO QD No S tart Date 02/06/2014 Inactive Flexeril 10 mg Tab RxNorm: 431213 1 Tablet(s) PO TID No Start Date Inactive prn spasm simvastatin 10 mg tablet RxNorm: 523027 1 Tablet(s) PO QD No Start Date 04/13/2012 Inactive Medication Administered No Medication Administered data Immunizations Vaccine Codes Date Status Influenza CVX: 135 01/16/2019 Complete Pneumococcal CVX: 133 01/16/2019 Complete Results No Results data Procedures Procedure Codes Date FLU VACC PRSV FREE INC ANTIG 65 AND OLDER CPT-4: 02073 01/16/2019 FLU VACC PRSV FREE INC ANTIG 65 AND OLDER CPT-4: 74644 01/16/2019 PNEUMOCOCCAL VACC 13 NARESH IM CPT-4: 75058 01/16/2019 SKIN FUNGI CULTURE CPT-4: 61524 01/16/2019 IMMUNIZATION ADMIN CPT-4: 88906 01/16/2019 IMMUNIZATION ADMIN EACH ADD CPT-4: 79362 01/16/2019 THER/PROPH/DIAG INJ SC/IM CPT-4: 69214 01/17/2018 KETOROLAC TROMETHAMINE INJ CPT-4: J1885 01/17/2018 THER/PROPH/DIAG INJ SC/IM CPT-4: 45252 01/17/2018 PROMETHAZINE HCL INJECTION CPT-4: J2550 01/17/2018 URINALYSIS NONAUTO W/O SCOPE CPT-4: 38764 12/29/2017 URINE CULTURE/ COLONY COUNT CPT-4: 74890 12/29/2017 THER/PROPH/DIAG INJ SC/IM CPT-4: 67166 11/30/2017 TRIAMCINOLONE ACET INJ NOS CPT-4: J3301 11/30/2017 DEXAMETHASONE SODIUM PHOS CPT-4: J1100 11/30/2017 CEFTRIAXONE SODIUM INJECTION CPT-4: J0696 11/29/2017 THER/PROPH/DIAG INJ SC/IM CPT-4: 12661 11/29/2017 CEFTRIAXONE SODIUM INJECTION CPT-4: J0696 11/28/2017 THER/PROPH/DIAG INJ SC/IM CPT-4: 38917 11/28/2017 URINALYSIS NONAUTO W/O SCOPE CPT-4: 62387 10/10/2017 THER/PROPH/DIAG INJ SC/IM CPT-4: 84322 10/10/2017 TRIAMCINOLONE ACET INJ NOS CPT-4: J3301 10/10/2017 DEXAMETHASONE SODIUM PHOS CPT-4: J1100 10/10/2017 CEFTRIAXONE SODIUM INJECTION CPT-4: J0696 10/10/2017 THER/PROPH/DIAG INJ SC/IM CPT-4: 24124 10/10/2017 URINE CULTURE/ COLONY COUNT CPT-4: 30133 10/10/2017 THER/PROPH/DIAG INJ SC/IM CPT-4: 11006 11/02/2016 KETOROLAC TROMETHAMINE INJ CPT-4: J1885 11/02/2016 THER/PROPH/DIAG INJ SC/IM CPT-4: 64025 06/15/2016 TRIAMCINOLONE ACET INJ NOS CPT-4: J3301 06/15/2016 DEXAMETHASONE SODIUM PHOS CPT-4: J1100 06/15/2016 THER/PROPH/DIAG INJ SC/IM CPT-4: 06728 04/09/2016 KETOROLAC TROMETHAMINE INJ CPT-4: J1885 04/09/2016 PROMETHAZINE HCL INJECTION CPT-4: J2550 04/09/2016 EXC TR-EXT B9+ERASMO 0.5 CM< CPT-4: 33407 06/12/2015 URINALYSIS NONAUTO W/O SCOPE CPT-4: 95985 05/05/2015 URINE CULTURE/ COLONY COUNT CPT-4: 79685 05/05/2015 URINALYSIS NONAUTO W/O SCOPE CPT-4: 08139 03/24/2015 URINALYSIS NONAUTO W/O SCOPE CPT-4: 48064 02/27/2015 URINE CULTURE/ COLONY COUNT CPT-4: 49153 02/27/2015 THER/PROPH/DIAG INJ SC/IM CPT-4: 00557 04/18/2014 KETOROLAC TROMETHAMINE INJ CPT-4: J1885 04/18/2014 THER/PROPH/DIAG INJ SC/IM CPT-4: 65703 06/05/2013 TRIAMCINOLONE ACET INJ NOS CPT-4: J3301 06/05/2013 THER/PROPH/DIAG INJ SC/IM CPT-4: 98866 11/29/2012 KETOROLAC TROMETHAMINE INJ CPT-4: J1885 11/29/2012 URINALYSIS NONAUTO W/O SCOPE CPT-4: 61001 07/11/2012 URINE CULTURE/ COLONY COUNT CPT-4: 40716 07/11/2012 OCCULT BLOOD FECES CPT-4: 19123 02/17/2012 URINALYSIS NONAUTO W/O SCOPE CPT-4: 17766 08/27/2011 URINE CULTURE/ COLONY COUNT CPT-4: 58064 08/27/2011 URINALYSIS NONAUTO W/O SCOPE CPT-4: 23258 08/17/2011 URINE CULTURE/ COLONY COUNT CPT-4: 17382 08/17/2011 URINALYSIS NONAUTO W/O SCOPE CPT-4: 14501 12/28/2010 URINE CULTURE/ COLONY COUNT CPT-4: 81890 12/28/2010 URINALYSIS NONAUTO W/O SCOPE CPT-4: 10756 11/09/2010 URINE CULTURE/ COLONY COUNT CPT-4: 87892 11/09/2010 URINALYSIS NONAUTO W/O SCOPE CPT-4: 82753 10/29/2010 URINE CULTURE/ COLONY COUNT CPT-4: 14934 10/29/2010 URINE CULTURE/ COLONY COUNT CPT-4: 97533 10/14/2010 URINALYSIS NONAUTO W/O SCOPE CPT-4: 80738 10/14/2010 Vital Signs Date Vital 04/10/2019 Blood [...] 1: 122/74 Code: 8480-6 BMI: 22.0 Code: 52136-4 Heart Rate 1: 72 bpm Height: 5'3" [...] 1: 126/72 Code: 8480-6 BMI: 22.7 Code: 72003-1 Heart Rate 1: 72 bpm Height: 5'3" [...] 1: 112/70 Code: 8480-6 BMI: 22.0 Code: 22336-8 Heart Rate 1: 80 bpm Height: 5'3" [...] 1: 122/64 Code: 8480-6 BMI: 21.4 Code: 42310-3 Heart Rate 1: 88 bpm Height: 5'3" Respiratory Rate: 22 bpm SpO2: 96% Tempera ture: 36.8 (C) / 98.2 (F) Weight: 121 lbs 06/22/2017 Blood Pressure 1: 124/78 Code: 8480-6 BMI: 21.6 Code: 51630-7 Heart Rate 1: 76 bpm Height: 5'3" Respiratory Rate: 20 bpm Temperature: 36 .8 (C) / 98.3 (F) Weight: 122 lbs 03/28/2017 Blood Pressure 1: 92/60 Code: 8480-6 BMI: 20.4 C ode: 04374-4 Heart Rate 1: 72 bpm Height: 5'3" Respiratory Rate: 20 bpm Temperature: 36 .9 (C) / 98.4 (F) Weight: 115 lbs 02/16/2017 Blood Pressure 1: 106/70 Code: 8480-6 BMI: 21.3 Code: 36816-9 Heart Rate 1: 82 bpm Height: 5'3" Respiratory Rate: 22 bpm SpO2: 97% Tempera ture: 36.1 (C) / 97.0 (F) Weight: 120 lbs 09/06/2016 Blood Pressure 1: 118/64 Code: 8480-6 BMI: 22.7 Code: 81382-3 Heart Rate 1: 78 bpm Height: 5'3" Respiratory Rate: 20 bpm SpO2: 98% Tempera ture: 36.2 (C) / 97.2 (F) Weight: 128 lbs 08/16/2016 Blood Pressure 1: 118/78 Code: 8480-6 BMI: 22.1 Code: 61532-2 Heart Rate 1: 78 bpm Height: 5'3" Respiratory Rate: 20 bpm SpO2: 97% Tempera ture: 36.2 (C) / 97.1 (F) Weight: 125 lbs 07/19/2016 Blood Pressure 1: 116/68 Code: 8480-6 BMI: 22.5 Code: 34043-8 Heart Rate 1: 76 bpm Height: 5'3" Respiratory Rate: 20 bpm Temperature: 36 .8 (C) / 98.2 (F) Weight: 127 lbs 07/06/2016 Blood Pressure 1: 106/70 Code: 8480-6 BMI: 22.5 Code: 64967-8 Heart Rate 1: 72 bpm Height: 5'3" Respiratory Rate: 20 bpm SpO2: 97% Tempera ture: 36.8 (C) / 98.2 (F) Weight: 127 lbs 06/15/2016 Blood Pressure 1: 136/76 Code: 8480-6 BMI: 22.9 Code: 12041-7 Heart Rate 1: 74 bpm Height: 5'3" Respiratory Rate: 18 bpm SpO2: 98% Tempera ture: 36.4 (C) / 97.6 (F) Weight: 129 lbs 04/09/2016 Blood Pressure 1: 124/78 Code: 8480-6 BMI: 23.0 Code: 19679-6 Heart Rate 1: 86 bpm Height: 5'3" Respiratory Rate: 20 bpm SpO2: 96% Tempera ture: 36.5 (C) / 97.7 (F) Weight: 130 lbs 03/17/2016 Blood Pressure 1: 116/74 Code: 8480-6 BMI: 23.4 Code: 95335-8 Heart Rate 1: 84 bpm Height: 5'3" Respiratory Rate: 20 bpm SpO2: 97% Tempera ture: 36.8 (C) / 98.3 (F) Weight: 132 lbs 11/13/2015 Blood Pressure 1: 124/78 Code: 8480-6 BMI: 23.4 Code: 15172-6 Heart Rate 1: 88 bpm Height: 5'3" Respiratory Rate: 24 bpm SpO2: 98% Tempera ture: 36.8 (C) / 98.2 (F) Weight: 132 lbs 06/12/2015 Blood Pressure 1: 126/78 Code: 8480-6 BMI: 23.6 Code: 84835-0 Heart Rate 1: 80 bpm Height: 5'3" Respiratory Rate: 20 bpm Temperature: 36 .9 (C) / 98.4 (F) Weight: 133 lbs 04/22/2015 Blood Pressure 1: 126/68 Code: 8480-6 BMI: 23.6 Code: 45932-4 Heart Rate 1: 80 bpm Height: 5'3" Respiratory Rate: 20 bpm Temperature: 36 .6 (C) / 97.9 (F) Weight: 133 lbs 03/24/2015 Blood Pressure 1: 116/66 Code: 8480-6 BMI: 22.9 Code: 68458-0 Heart Rate 1: 74 bpm Height: 5'3" Respiratory Rate: 20 bpm Temperature: 36 .4 (C) / 97.6 (F) Weight: 129 lbs 02/27/2015 Blood Pressure 1: 106/64 Code: 8480-6 BMI: 22.7 Code: 66975-1 Heart Rate 1: 74 bpm Height: 5'3" Respiratory Rate: 20 bpm Temperature: 36 .8 (C) / 98.2 (F) Weight: 128 lbs 06/13/2014 Blood Pressure 1: 104/66 Code: 8480-6 BMI: 22.7 Code: 54550-3 Heart Rate 1: 84 bpm Height: 5'3" Respiratory Rate: 20 bpm Temperature: 37 .0 (C) / 98.6 (F) Weight: 128 lbs 04/18/2014 Blood Pressure 1: 112/62 Code: 8480-6 BMI: 22.0 Code: 06304-3 Heart Rate 1: 82 bpm Height: 5'3" Respiratory Rate: 18 bpm Temperature: 36 .4 (C) / 97.6 (F) Weight: 124 lbs 12/05/2013 Blood Pressure 1: 106/70 Code: 8480-6 BMI: 23.7 Code: 32494-7 Heart Rate 1: 84 bpm Height: 5'3" [...] 1: 126/88 Code: 8480-6 BMI: 22.3 Code: 90449-2 Heart Rate 1: 96 bpm Height: 5'4" Respiratory Rate: 20 bpm Temperature: 37 .7 (C) / 99.9 (F) Weight: 130 lbs 11/29/2012 Blood Pressure 1: 122/76 Code: 8480-6 BMI: 23.0 Code: 22449-1 Heart Rate 1: 84 bpm Height: 5'4" Respiratory Rate: 20 bpm Temperature: 36 .9 (C) / 98.4 (F) Weight: 134 lbs 09/26/2012 Blood Pressure 1: 114/76 Code: 8480-6 BMI: 23.0 Code: 95045-6 Heart Rate 1: 84 bpm Height: 5'4" Respiratory Rate: 20 bpm Temperature: 37 .3 (C) / 99.1 (F) Weight: 134 lbs 07/11/2012 Blood Pressure 1: 126/78 Code: 8480-6 BMI: 23.7 Code: 12204-3 Heart Rate 1: 76 bpm Height: 5'4" Respiratory Rate: 20 bpm Temperature: 37 .1 (C) / 98.7 (F) Weight: 138 lbs 02/02/2012 Blood Pressure 1: 108/70 Code: 8480-6 BMI: 23.2 Code: 86762-5 Heart Rate 1: 88 bpm Height: 5'4" Respiratory Rate: 20 bpm Temperature: 36 .4 (C) / 97.6 (F) Weight: 135 lbs 08/17/2011 Blood Pressure 1: 108/70 Code: 8480-6 BMI: 23.2 Code: 53857-4 Heart Rate 1: 72 bpm Height: 5'4" Respiratory Rate: 20 bpm Temperature: 36 .8 (C) / 98.2 (F) Weight: 135 lbs 10/14/2010 Blood Pressure 1: 120/72 Code: 8480-6 BMI: 23.4 Code: 40905-7 Heart Rate 1: 78 bpm Height: 5'3" [...] Diagnosis: Incisional hernia[ICD10: K43.2] Alexandra CARROLL DO [facility] CPT-4: 42599 04/10/2019 ([id number]) OFFICE/OUTPATIENT VISIT EST Diagnosis: Insomnia[ICD10: G47.00] Diagnosis: Thrombocytosis[ICD10: D47.3] Alexandra CARROLL [facility] CPT-4: 27241 02/14/2019 ([id number]) OFFICE/OUTPATIENT VISIT EST Diagnosis: Small bowel obstruction[ICD10: K56.609] Diagnosis: FLU VACCINE[ICD10: Z23] Diagnosis: PNEUMOCOCCAL VACCINE[ICD10: Z23] Diagnosis: Onychomycosis[ICD10: B35.1] Alexandra KUNZ [facility] CPT-4: 61719 01/16/2019 ([id number]) OFFICE/OUTPATIENT VISIT EST Diagnosis: Diarrhea, unspecified[ICD10: R19.7] Diagnosis: Radiculopathy, lumbosacral region[ICD10: M54.17] Alexandra CARROLL [facility] CPT-4: 25056 09/18/2018 OFFICE/OUTPATIENT VISIT EST Diagnosis: Other intervertebral disc degeneration, lumbar region[ICD10: M51.36] Diagnosis: Sacroiliitis, not elsewhere classified[ICD10: M46.1] Diagnosis: Obstructive sleep apnea (adult) (pediatric)[ICD10: G47.33] [facility] 83124 08/10/2018 ([id number]) OFFICE/OUTPATIENT VISIT EST Diagnosis: Fracture of unspecified part of left clavicle, subsequent encounter for fracture with routine healing[ICD10: S42.002D] Diagnosis: Cervicalgia[ICD10: M54.2] Diagnosis: Radiculopathy, lumbosacral region[ICD10: M54.17] Alexandra CARROLL [facility] CPT-4: 93196 03/27/2018 ([id number]) OFFICE/OUTPATIENT VISIT EST Diagnosis: Fracture of unspecified part of left clavicle, subsequent encounter for fracture with routine healing[ICD10: S42.002D] Diagnosis: Other intervertebral disc degeneration, lumbar region[ICD10: M51.36] Diagnosis: Unspecified fracture of first thoracic vertebra, subsequent encounter for fracture with routine healing[ICD10: S22.019D] Diagnosis: Unspecified fracture of second thoracic vertebra, subsequent encounter for fracture with routine healing[ICD10: S22.029D] Alexandra CARROLL [employer] [facility] CPT-4: 42547 02/23/2018 ([id number]) OFFICE/OUTPATIENT VISIT EST Diagnosis: Fracture of unspecified part of left clavicle, subsequent encounter for fracture with routine healing[ICD10: S42.002D] Diagnosis: Unspecified fracture of first thoracic vertebra, subsequent encounter for fracture with routine healing[ICD10: S22.019D] Diagnosis: Unspecified fracture of second thoracic vertebra, subsequent encounter for fracture with routine healing[ICD10: S22.029D] Alexandra CARROLL [employer] [facility] CPT-4: 39669 01/24/2018 ([id number]) OFFICE/OUTPATIENT VISIT EST Diagnosis: Migraine, unspecified, not intractable, without status migrainosus[ICD10: G43.909] Alexandra BURLESON [employer] [facility] CPT - 4: 61083 01/17/2018 ([id number]) OFFICE/OUTPATIENT VISIT EST Diagnosis: Hematuria, unspecified[ICD10: R31.9] Diagnosis: Other intervertebral disc degeneration, lumbar region[ICD10: M51.36] Diagnosis: Retention of urine, unspecified[ICD10: R33.9] Alexandra CARROLL [facility] CPT-4: 67079 12/29/2017 OFFICE/OUTPATIENT VISIT EST Diagnosis: Fracture of [...] Diagnosis: Low back pain[ICD10: M54.5] Alexandra KUNZ [employer] [facility] CPT-4: 04500 12/06/2017 ([id number]) OFFICE/OUTPATIENT VISIT EST Diagnosis: Cellulitis of right upper limb[ICD10: L03.113] Diagnosis: Allergy status to other antibiotic agents status[ICD10: Z88.1] Vandana CARROLL DO [employer] CPT-4: 55752 12/01/2017 ([id number]) OFFICE/OUTPATIENT VISIT EST Diagnosis: Cellulitis of right upper limb[ICD10: L03.113] Diagnosis: Allergy status to other antibiotic agents status[ICD10: Z88.1] Vandana CARROLL DO [facility] CPT-4: 85679 11/30/2017 ([id number]) OFFICE/OUTPATIENT VISIT EST Diagnosis: Cellulitis of right upper limb[ICD10: L03.113] Vandana CARROLL DO [facility] CPT-4: 73274 11/29/2017 ([id number]) OFFICE/OUTPATIENT VISIT EST Diagnosis: Cellulitis of right upper limb[ICD10: L03.113] Vandana CARROLL DO [employer] CPT-4: 96632 11/28/2017 ([id number]) OFFICE/OUTPATIENT VISIT EST Diagnosis: Other intervertebral disc degeneration, lumbar region[ICD10: M51.36] Diagnosis: Other retention of urine[ICD10: R33.8] Diagnosis: Primary insomnia[ICD10: F51.01] Diagnosis: Other spondylosis, site unspecified[ICD10: M47.899] Alexandra CARROLL [employer] CPT-4: 08180 11/17/2017 ([id number]) OFFICE/OUTPATIENT VISIT EST Diagnosis: Radiculopathy, lumbosacral region[ICD10: M54.17] Diagnosis: Other retention of urine[ICD10: R33.8] Diagnosis: Urinary tract infection, site not specified[ICD10: N39.0] Vandana CARROLL DO [employer] CPT-4: 42427 10/10/2017 ([id number]) PREV VISIT EST AGE 40-64 Diagnosis: Encounter for general adult medical examination without abnormal findings[ICD10: Z00.00] Diagnosis: Other intervertebral disc degeneration, lumbar region[ICD10: M51.36] Diagnosis: Hypothyroidism, unspecified[ICD10: E03.9] Diagnosis: Mixed hyperlipidemia[ICD10: E78.2] Alexandra CARROLL DO [facility] CPT-4: 64571 06/22/2017 ([id number]) OFFICE/OUTPATIENT VISIT EST Diagnosis: URI, ACUTE[ICD10: J06.9] Alexandra ROMAN [facility] CPT-4: 47344 03/28/2017 OFFICE/OUTPATIENT VISIT EST Diagnosis: Acute sinusitis, unspecified[ICD10: J01.90] Vandana CARROLL [facility] CPT-4: 49572 02/16/2017 ([id number]) OFFICE/OUTPATIENT VISIT EST Diagnosis: Migraine, unspecified, not intractable, without status migrainosus[ICD10: G43.909] Alexandra CARROLL DO [facility] CPT - 4: 48164 11/02/2016 ([id number]) OFFICE/OUTPATIENT VISIT EST Diagnosis: Pain in thoracic spine[ICD10: M54.6] Diagnosis: Chondrocostal junction syndrome [Tietze][ICD10: M94.0] Alexandra CARROLL [facility] CPT-4: 12183 09/06/2016 OFFICE/OUTPATIENT VISIT EST Diagnosis: Acute sinusitis, unspecified[ICD10: J01.90] Vidya Manuel ALEXANDRA CARROLL [facility] CPT-4: 91717 08/16/2016 ([id number]) OFFICE/OUTPATIENT VISIT EST Diagnosis: Primary insomnia[ICD10: F51.01] Diagnosis: Cramp and spasm[ICD10: R25.2] Diagnosis: Major depressive disorder, single episode, mild[ICD10: F32.0] Alexandra CARROLL [facility] CPT-4: 07729 07/19/2016 ([id number]) OFFICE/OUTPATIENT VISIT EST Diagnosis: Obstructive sleep apnea (adult) (pediatric)[ICD10: G47.33] Diagnosis: Other fatigue[ICD10: R53.83] Diagnosis: Allergic rhinitis due to pollen[ICD10: J30.1] Diagnosis: Headache[ICD10: R51] Alexandra CARROLL [facility] CPT-4: 81251 07/06/2016 ([id number]) OFFICE/OUTPATIENT VISIT EST Diagnosis: Acute recurrent sinusitis, unspecified[ICD10: J01.91] Diagnosis: Allergic rhinitis due to pollen[ICD10: J30.1] Alexandra Danelawandavioletta ALEXANDRA MacyAri DEANNE SALGUERO [facility] CPT-4: 43828 06/15/2016 ([id number]) OFFICE/OUTPATIENT VISIT EST Diagnosis: Migraine, unspecified, not intractable, without status migrainosus[ICD10: G43.909] Diagnosis: Allergic rhinitis, unspecified[ICD10: J30.9] Nae MARINQUELINE MacyAri DEANNE [employer] [facility] CPT-4: 79272 04/09/2016 ([id number]) OFFICE/OUTPATIENT VISIT EST Diagnosis: Hypothyroidism, unspecified[ICD10: E03.9] Diagnosis: Other fatigue[ICD10: R53.83] Diagnosis: Mixed hyperlipidemia[ICD10: E78.2] Diagnosis: Major depressive disorder, single episode, mild[ICD10: F32.0] Alexandra Danejames MARINALEXANDRA MacyAri DEANNE [employer] [facility] CPT-4: 63969 03/17/2016 ([id number]) OFFICE/OUTPATIENT VISIT EST Diagnosis: Insomnia, unspecified[ICD10: G47.00] Diagnosis: Encounter for therapeutic drug level monitoring[ICD10: Z51.81] Nae Mckay ALEXANDRA MacyAri DEANNE [employer] [facility] CPT-4: 86660 11/13/2015 ([id number]) OFFICE/OUTPATIENT VISIT EST Diagnosis: Hematuria, unspecified[ICD10: R31.9] Alexandra Crawford DEANNE [employer] [facility] CPT-4: 62295 05/05/2015 ([id number]) OFFICE/OUTPATIENT VISIT EST Diagnosis: Other intervertebral disc degeneration, lumbar region[ICD10: M51.36] Diagnosis: Radiculopathy, lumbosacral region[ICD10: M54.17] Alexandra FORDE MacyAri DEANNE [employer] [facility] CPT-4: 18100 04/22/2015 ([id number]) OFFICE/OUTPATIENT VISIT EST Diagnosis: Low back pain[ICD10: M54.5] Diagnosis: Recurrent and persistent hematuria with unspecified morphologic changes[ICD10: N02.9] Alexandra FORDE Ty CARROLL [facility] CPT-4: 81069 03/24/2015 ([id number]) OFFICE/OUTPATIENT VISIT EST Diagnosis: Acute sinusitis, unspecified[ICD10: J01.90] Diagnosis: Headache[ICD10: R51] Diagnosis: Retention of urine, unspecified[ICD10: R33.9] Diagnosis: Hypothyroidism, unspecified[ICD10: E03.9] Alexandra FORDE MacyAri DEANNE [facility] CPT-4: 18319 02/27/2015 ([id number]) PREV VISIT EST AGE 40-64 Diagnosis: ROUTINE MEDICAL EXAM[ICD9: V70.0] Diagnosis: HYPOTHYROIDISM[ICD9: 244.9] Diagnosis: HYPERLIPIDEMIA NEC/NOS[ICD9: 272.4] Alexandra CORDOBA Ty CARROLL [facility] CPT-4: 38549 06/13/2014 ([id number]) OFFICE/OUTPATIENT VISIT EST Diagnosis: CEPHALGIA[ICD9: 784.0] Diagnosis: Nausea[ICD9: 787.02] Shalini VanMarguerite ALEXANDRA Ty CARROLL [facility] CPT-4: 79400 04/18/2014 ([id number]) OFFICE/OUTPATIENT VISIT EST Diagnosis: INSOMNIA NOS[ICD9: 780.52] Diagnosis: Complicated grieving[ICD9: 309.0] Alexandra Louise Ty CARROLL [facility] CPT-4: 70645 12/05/2013 ([id number]) OFFICE/OUTPATIENT VISIT EST Diagnosis: Muscle twitch[ICD9: 781.0] Diagnosis: ALLERGIC RHINITIS[ICD9: 477.9] Alexandra FORDE Macy Ari DEANNE [employer] [facility] CPT-4: 95688 06/05/2013 ([id number]) OFFICE/OUTPATIENT VISIT EST Diagnosis: DEPRESSIVE DISORDER NEC[ICD9: 311] Alexandra QUINTERO Ty BURLESON [employer] [facility] CPT-4: 04464 05/22/2013 OFFICE/OUTPATIENT VISIT EST Diagnosis: Shingles[ICD9: 053.9] [facility]: 02379 04/05/2013 ([id number]) OFFICE/OUTPATIENT VISIT EST Diagnosis: DEPRESSIVE DISORDER NEC[ICD9: 311] Alexandra SHAFFERFELIPE QUINETRO SAri CARROLL [facility] CPT-4: 27914 03/26/2013 ([id number]) OFFICE/OUTPATIENT VISIT EST Diagnosis: Complicated grieving[ICD9: 309.0] Alexandra OROZCO Dani JACOBONDVIOLETTA [facility] CPT-4: 80696 03/06/2013 ([id number]) OFFICE/OUTPATIENT VISIT EST Diagnosis: CEPHALGIA, TENSION[ICD9: 307.81] Diagnosis: MIGRAINE NOS/NOT INTRCBL[ICD9: 346.90] Diagnosis: Cervicalgia[ICD9: 723.1] Alexandra FORDE MacyAri GIULIA IZABELLA [facility] CPT-4: 90635 11/29/2012 ([id number]) OFFICE/OUTPATIENT VISIT EST Diagnosis: Jaw pain[ICD9: 784.92] Diagnosis: Shoulder pain[ICD9: 719.41] Diagnosis: Family history of premature coronary artery disease[ICD9: V17.3] Alexandra FORDE [facility]Ari [facility] CPT-[facility]: 77781 09/26/2012 ([id number]) OFFICE/OUTPATIENT VISIT EST Diagnosis: ABDOMINAL PAIN[ICD9: 789.00] Diagnosis: Constipation[ICD9: 564.00] Diagnosis: Hematuria[ICD9: 599.70] Alexandra FORDE MacyAri [facility] CPT-4: 77154 07/11/2012 ([id number]) OFFICE/OUTPATIENT VISIT EST Diagnosis: ANEMIA NOS[ICD9: 285.9] Alexandra FORDE MacyAri [facility] CPT-4: 23213 02/17/2012 ([id number]) PREV VISIT EST AGE 40-64 Diagnosis: ROUTINE MEDICAL EXAM[ICD9: V70.0] Diagnosis: HYPOTHYROIDISM[ICD9: 244.9] Diagnosis: HYPERLIPIDEMIA NEC/NOS[ICD9: 272.4] Diagnosis: Obstructive sleep apnea[ICD9: 327.23] Alexandra ISLAS MacyAri DEANNE [facility] CPT-4: 22771 02/02/2012 ([id number]) OFFICE/OUTPATIENT VISIT EST Diagnosis: URINARY TRACT INFECTION[ICD9: 599.0] Alexandra LOZANO MacyAri DEANNE DO [facility] CPT-4: 76604 08/27/2011 ([id number]) OFFICE/OUTPATIENT VISIT EST Diagnosis: URINARY TRACT INFECTION[ICD9: 599.0] Diagnosis: ACUTE CYSTITIS[ICD9: 595.0] Alexandra FORDE [facility] CPT-4: 69758 08/17/2011 OFFICE/OUTPATIENT VISIT EST Diagnosis: URINARY TRACT INFECTION[ICD9: 599.0] Steph Bowen EDMUND LOZANO MacyAri DEANNE DO [facility] CPT-4: 16983 10/14/2010 Plan of Care Planned Activity Notes Codes Status Date Visit Diagnosis Plan: Ventral hernia Discussion: See s urgery for repair Discussed signs of incarceration or strangulation then is to report to ER ICD-9 : 553.20 ICD-10 : K43.9 04/10/2019 Care Plan: Referral Order SNOMED-CT : 30 [id number] Pending 04/10/2019 Visit Diagnosis Plan: Insomnia Discussion: [...] : D47.3 02/14/2019 Appointment: Alexandra Carroll WPtel: [address] [place], [place] [id number] US FOLLOW UP 02/14/2019 Appointment: Alexandra Carroll WPtel: [address] [place], [place] [id number] [place] CANCELED 02/12/2019 Visit Diagnosis Plan: Onychomycosis Discussion: Send n ail for culture ICD-9 : 110.1 ICD-10 : B35.1 01/16/2019 Visit Diagnosis Plan: Small bowel obstruction Discussi on: S/P surgery in September with postop complications of wound dehiscence ICD-9 : 560.9 ICD-10 : K56.609 01/16/2019 Appointment: Alexandra Carroll [facility]el: [facility] [address] [facility] US MEDICATION REVIEW 01/16/2019 Appointment: Alexandra Carrolltel: [address] [place], [place] [id number] US CANCELED 12/12/2018 Visit Diagnosis Plan: Diarrhea, unspecified Discussion : Due for updated colonoscopy ICD-9 : 787.91 ICD-10 : R19.7 09/18/2018 Visit Diagnosis Plan: Radiculopathy, lumbosacral regio n Discussion: Had left SI joint injection by Dr. Baig about 2 weeks ago and has fwup with him ICD-9 : 724.4 ICD-10 : M54.17 09/18/2018 Appointment: Alexandra Carroll WPtel: [address] [place] [address] US PATIENT CONSULT 15 09/18/2018 Care Plan: Referral Order SNOMED-CT : 30 [id number] Pending 09/18/2018 Visit Diagnosis Plan: Other intervertebral [...] : M46.1 08/10/2018 Appointment: Alexandra Carroll WPtel: [facility] [address] [facility] US MEDICATION REVIEW 08/10/2018 Care Plan: Referral Order SNOMED-CT : 30 0728850 Pending 08/10/2018 Appointment: Alexandra Carrolltel: [address] [place], [place] [id number] [place] CANCELED 04/17/2018 Visit Diagnosis Plan: Fracture [...] : M54.2 03/27/2018 Appointment: Alexandra Carroll WPtel: [address] [place], [place] [phone] US FOLLOW UP 03/27/2018 Visit Diagnosis Plan: [...] : S42.002D 02/23/2018 Appointment: Alexandra Carroll WPtel: [address] [place], [place] [id number] US FOLLOW UP 02/23/2018 Patient Education: gabapentin- [employer] Coupon [phone] [email or web address] Completed 02/23/2018 Visit Diagnosis Plan: Fracture of unspec ified part of left clavicle, subsequent encounter for fracture with routine healing Discussion: Hold on PT and do home stretches Trial of gabapentin Recheck 4 weeks ICD-9 : V54.11 ICD-10 : S42.002D 01/24/2018 Appointment: Alexandra Carroll WPtel: [address] [place] [address] US FOLLOW UP 01/24/2018 Visit Diagnosis Plan: Migraine, unspecif ied, not intractable, without status migrainosus Discussion: Toradol and phenergan given ICD-9 : 346.90 ICD-10 : G43.909 01/17/2018 Appointment: Alexandra Carroll WPtel: [address] [place] [address] ACUTE ILLNESS 01/17/2018 Visit Diagnosis Plan: Retention [...] : M51.36 12/29/2017 Appointment: Alexandra Carroll WPtel: [address] [place] [address] ACUTE ILLNESS 12/29/2017 Care Plan: US EXAM PELVIC COMPLETE LOINC : 51249-1 Pending 12/29/2017 Care Plan: ECHO EXAM OF ABDOMEN LOINC : 14567-8 Pending 12/29/2017 Care Plan: Referral Order SNOMED-CT : 30 8956746 Pending 12/29/2017 Visit Diagnosis Plan: Fracture of unspec ified part of left clavicle, subsequent encounter for fracture with routine healing Discussion: Start PT in another 7-14 days Off work for the rest of this week then may return to part-time work on 12/12/17 Fwup in 4 weeks ICD-9 : V54.11 ICD-10 : S42.002D 12/06/2017 Appointment: Alexandra Carroll WPtel: [address] [place], [place] [phone] FOLLOW UP 12/06/2017 Patient Education: Patient Medication [...] : Z88.1 12/01/2017 Appointment: Vandana Crowe [address] [facility] FOLLOW UP 12/01/2017 Patient Education: Patient [...] : Z88.1 11/30/2017 Appointment: Vandana Crowe [address] [facility] 11/30/2017 Patient Education: Patient Medication Summary [...] : L03.113 11/29/2017 Appointment: Vandana Crowe [address] [facility] FOLLOW UP 11/29/2017 Patient Education: Patient [...] : L03.113 11/28/2017 [facility] [facility] 11/28/2017 Patient Education: Patient Medication [...] M51.36 11/17/2017 Appointment: Alexandra Carroll WPtel: [phone] [facility] MEDICATION REVIEW 11/17/2017 Patient Education: Patient Medication Summary Completed 11/17/2017 Care Plan: Referral Order SNOMED-CT : 30 6375516 Pending 11/17/2017 Patient Education: Patient Medication Summary Completed 10/12/2017 Care Plan: MRI LUMBAR SPINE W/O DYE LOIN C : 15461-0 Pending 10/12/2017 Care Plan: X-RAY EXAM L-S SPINE 2/3 VWS LOINC : 08278-8 Pending 10/11/2017 Visit Diagnosis Plan: Other retention [...] medrol pack to start tomorrow. [facility] with inversion table. instructed patient to go to ED immediately if she develops any incontinence with bowel or bladder. patient verbalized understanding. if no improvement, will need updated MRI and referral to surgeon. ICD-9 : 724.4 ICD-10 : M54.17 10/10/2017 Appointment: Vandana Crowe [address] [place], [place] [id number] ACUTE ILLNESS 10/10/2017 Patient Education: Patient Medication Summary Completed 10/10/2017 Appointment[facility] [facility] 08/01/2017 Visit Diagnosis Plan: Other intervertebral disc degene ration, lumbar region Discussion: Core strengtheing and inversion table and if worsening will need updated MRI ICD-9 : 722.52 ICD-10 : M51.36 06/22/2017 Visit Diagnosis Plan: Encounter for gene [facility] adult medical examination without abnormal findings Discussion: Lab dis ussed Follow Up: 6 months ICD-9 : V70.0 ICD-10 : Z00.00 06/22/2017 Appointment: Alexandra Carroll WPtel: [phone] Annual Well Visit 06/22/2017 Patient Education: Patient Medication Summary Completed 06/22/2017 Patient Education: Patient Medication Summary Completed 06/16/2017 Care Plan: COMPREHEN METABOLIC PANEL [place] : 70244-0 Pending 06/16/2017 Care Plan: ASSAY THYROID STIM HORMONE Pen ding 06/16/2017 Care Plan: ASSAY OF FREE THYROXINE Pendin g 06/16/2017 Care Plan: LIPID PANEL LOINC : 75805-2 Pending 06/16/2017 Care Plan: CBC Pending 06/16/2017 [...] J06.9 03/28/2017 Appointment: Alexandra Carroll WPtel: [phone] [facility] ACUTE ILLNESS 03/28/2017 Patient Education: Patient Medication Summary Completed 03/28/2017 Visit Diagnosis Plan: Acute sinusitis, unspecified Dis cussion: cefdinir and medrol dose pack prescribed to be taken as directed. tylenol/ibuprofen as needed. educated on importance of taking singulair or zyrtec daily to prevent worsening symptoms. keep hydrated. ICD-9 : 461.9 ICD-10 : J01.90 02/16/2017 Appointment: Vandana Crowe [address] [place] [address] ACUTE ILLNESS 02/16/2017 Patient Education: Patient Medication Summary Completed 02/16/2017 Appointment: Alexandra Carroll WPtel: [address] [place] [address] US INJECTION 11/02/2016 Patient Education: Patient Medication Summary Completed 11/02/2016 Visit Diagnosis Plan: Pain in thoracic spine Discussio n: Increase flexeril to 10mg po BID Add Mobic 15mg po daily Towel stretch May see chiropractor to adjust ribs Notify if persists or worsening ICD-9 : 724.1 ICD-10 : M54.6 09/06/2016 Appointment: Alexandra Carroll WPtel: [address] [place] [address] ACUTE ILLNESS 09/06/2016 Patient Education: Patient Medication Summary Completed 09/06/2016 Visit Plan: Due to hx, ERx Cefdinir and Prednisone (discussed risks for both) Given bottle for nasal saline rinses Tylenol/Ibuprofen prn pain/fever Fluids/rest Discussed s/s of worsening, RTC if no improvement 08/16/2016 Appointment: Vidya Manuel WPtel: [address] [place] [address] ACUTE ILLNESS 08/16/2016 Patient Education: Patient Medication [...] : F32.0 07/19/2016 Appointment: Alexandra Carroll [facility]el[facility] [address] [facility] 07/15 confirmed`sl FOLLOW UP 07/19/2016 Patient Education: [...] : J30.1 07/06/2016 Appointment: Alexandra Carroll WPtel: [facility] [address] [facility] 07/05 confirmed-sp FOLLOW UP 07/06/2016 Patient [...] : J01.91 06/15/2016 Appointment: Alexandra Carroll WPtel: [facility] [address] [facility] 06/14 lm ~sl ACUTE ILLNESS 06/15/2016 Patient Education: Patient Medication Summary Completed 06/15/2016 Visit Diagnosis Plan: Migraine, unspecif ied, not intractable, without status migrainosus Discussion: Injection as above Drink ple nty of water No driving x 6 hours Rest No OTC nsaids today Follow up PRN Refill called of claritin-d ICD-9 : 346.90 ICD-10 : G43.909 04/09/2016 Appointment: Nae Mckay [address] [place], [place] [id number] ACUTE ILLNESS 04/09/2016 Patient Education: Patient Medication [...] : R53.83 03/17/2016 Appointment: Alexandra Carroll WPtel: [address] [place], [place] [id number] 03/16 nvm~sl 03/17 confirmed`sl FOLLOW UP 0 03/17/2016 Patient Education: Patient Medication Summary Completed 03/17/2016 Appointment: Alexandra Carroll WPtel: [address] [place], [place] [id number] [place] 03/11 lm~sl 03/15lm `sl 03/15 confirmed`sl FOLLOW U P 03/15/2016 Visit Plan: Discussed labeled indication s for benzos. Since xanax is not labeled for sleep and she has never tried anything else, encouraged her to trial restoril(another benzo) since it is labeled for sleep. She agrees with this trial. Rx called to [facility] after cost comparison which is nearly the same robert. If working well, continue the [id number] office visits. Call if not working well, and will restart xanax at HS for sleep. 11/13/2015 Appointment: Nae Mckay [address] [place], [place] [id number] 11/11 confirmed~sl FOLLOW UP 11/13/2015 Patient Education: Patient Medication Summary Completed 11/13/2015 Appointment: Alexandra Carroll WPtel: [address] [place] [address] Suture Removal 06/23/2015 Patient Education: Patient Medication Summary Completed 06/23/2015 Visit Plan: Removal of lesion above usin g 3-0 punch biopsy Return in 10 days for suture removal 06/12/2015 Appointment: Alexandra Carroll WPtel: [address] [place] [address] 06/10 lm ~sl ACUTE ILLNESS 06/12/2015 Patient Education: Patient Medication Summary Completed 06/12/2015 Referral: Soy Garcia WPtel: [facility] [address] Schedule patient around lunch time and 3 weeks from 04/22/2015 ~ Spoke with Kiesha at Dr. Sandoval [facility] and 04/24/15 and scheduled the patient ~ 04/24/15 Patient is informed~ 06/03 Patient canceled the appointment ~ Patient did not show up for scheduled appointment-sp Appoint ment Requested 05/21/2015 Appointment: Alexandra Carroll WPtel: [address] [place] [address] 05/05/2015 Patient Education: Patient Medication Summary Completed 05/05/2015 Visit Plan: Starts PT today Schedule wit h Dr. Garcia for epidural CT abdomen/pelvis results discussed Sees CHOCOLATE COATER in April and will get checked then 04/22/2015 Appointment: Alexandra Carroll WPtel: [address] [place] [address] 04/21 confirmed~lb ACUTE ILLNESS 04/22/2015 Patient Education: Patient Medication Summary Completed 04/22/2015 Referral: Lincoln Hernandez WPtel: [address] [place] [address] Referral Initiated 04/10/2015 Patient Education: Patient Medication Summary Completed 04/09/2015 Visit Plan: Start with lumosacral spine x-ray--will likely need MRI of L/S spine x-ray Needs urology--has had to have bladder stretched in past Tivorbex 03/24/2015 Appointment: Alexandra Carroll WPtel: [address] [place], [place] [id number] 03/21/15 appt confirmed cn ACUTE ILLNESS 03/24 Patient Education: Patient Medication Summary Completed 03/24/2015 Visit Plan: Saline nasal flushes prn. Ty lenol/Motrin prn headache. Notify if persists/symptoms worsening. Cefuroxime to cover both sinuses and UTI Culture urine Check lab 02/27/2015 Appointment: Alexandra Carroll WPtel: [address] [place] [address] 02/26/15 vm to confirm and need new insu meri on file is inactive cn....02/27/15 appt confirmed cn ACUTE ILLNESS 015 Patient Education: Patient Medication Summary Completed 02/27/2015 Visit Plan: Lab discussed Stop simvastat in Check lipids in 6mos Continue all other meds at current dose Had Pap and Mammo 3 weeks ago 06/13/2014 Appointment: Alexandra Carroll WPtel: [address] [place] [address] Annual Well Visit 06/13/2014 Patient Education: Patient Medication Summary Completed 06/13/2014 Appointment: Shalini Walters WPtel: [address] [place] [address] ACUTE ILLNESS 04/18/2014 Patient Education: Patient Medication Summary Completed 04/18/2014 Visit Plan: Check lab in May fwup Can try decreasing xanax to 1mg q HS with melatonin 5-10mg q HS 12/05/2013 Appointment: Alexandra Carroll WPtel: [address] [place] [address] 12/04 vm FOLLOW UP 12/05/2013 Patient Education: Patient Medication Summary Completed 12/05/2013 Appointment: Alexandra Carroll WPtel: [address] [place], [place] [id number] [place] FOLLOW UP 06/05/2013 Patient Education: Patient Medication Summary Completed 06/05/2013 Appointment: Alexandra Carroll WPtel: [address] [place] [address] FOLLOW UP 05/22/2013 Patient Education: Patient Medication Summary Completed 05/22/2013 Visit Plan: Zovirax for 2wks Notify if p ain worsens or if persists 04/05/2013 Appointment: Alexandra Carroll WPtel: [address] [place] [address] ACUTE ILLNESS 04/05/2013 Patient Education: Patient Medication Summary Completed 04/05/2013 Visit Plan: Keep Wellbutrin at current d ose Pt did see for counseling 03/26/2013 Appointment: Alexandra Carroll WPtel: [address] [place] [address] ACUTE ILLNESS 03/26/2013 Patient Education: Patient Medication Summary Completed 03/26/2013 Visit Plan: Continue citalopram at curre nt dose Increase xanax to 1-2mg q HS for sleep Add Wellbutrin Sr 100mg q AM Start Counseling 03/06/2013 Appointment: Alexandra Carroll WPtel: [address] [place] [address] ACUTE ILLNESS 03/06/2013 Patient Education: Patient Medication Summary Completed 03/06/2013 Appointment: Alexandra Carroll WPtel: [address] [place] [address] ACUTE ILLNESS 11/29/2012 Patient Education: Patient Medication Summary Completed 11/29/2012 Appointment: Alexandra Carroll WPtel: [address] [place] [address] ACUTE ILLNESS 09/26/2012 Patient Education: Patient Medication Summary Completed 09/26/2012 Appointment: Alexandra Carroll WPtel: [address] [place] [address] ACUTE ILLNESS 07/11/2012 Patient Education: Patient Medication Summary Completed 07/11/2012 Appointment: Alexandra Carroll WPtel: [address] [place] [address] [place] LAB 02/17/2012 Patient Education: Patient Medication Summary Completed 02/17/2012 Visit Plan: Check fasting lab Start annie y ca with Vit D Cont CPAP Mammo up-to-date Hemoccult card given 02/02/2012 Appointment: Alexandra Carroll WPtel: [address] [place] [address] PHYSICAL 02/02/2012 Patient Education: Patient Medication Summary Completed 02/02/2012 Appointment: Alexandra Carroll WPtel: [address] [place] [address] UA 08/27/2011 Patient Education: Patient Medication Summary Completed 08/27/2011 Visit Plan: Levaquin and Diflucan for 1w k Then cipro QOD for prophylaxis 08/17/2011 Appointment: Alexandra Carroll WPtel: [address] [place] [address] FOLLOW UP 08/17/2011 Patient Education: Patient Medication Summary Completed 08/17/2011 Appointment: Alexandra Carroll WPtel: [address] [place] [address] UA 12/28/2010 Patient Education: Patient Medication Summary Completed 12/28/2010 Appointment: Alexandra Carroll WPtel: [address] [place], [place] [id number] UA 11/09/2010 Patient Education: Patient Medication Summary Completed 11/09/2010 Appointment: Alexandra Carroll WPtel: [address] [place] [address] UA 10/29/2010 Patient Education: Patient Medication Summary Completed 10/29/2010 Appointment: Steph Bowen WPtel: [address] [place] [address] ACUTE ILLNESS 10/14/2010 Patient Education: Patient Medication Summary Completed 10/14/2010 Referral: Florian Baig WPtel: [facility] [address], [address] Referral Initiated Referral: Paulo Albert WPtel: [id number] [id number] [place] Referral Appointment Requested Referral: Luis Enrique Jasso WPtel: [facility] [address], [address] Referral Appointment Requested Referral: Florian Baig WPtel: [facility] [address] Referral Appointment Requested Referral: Caleb Glaser WPtel: [address] Referral Appointment Requested Referral: Florian Baig WPtel: [facility] [address] Referral Initiated Referral: Florian Baig WPtel: [facility] [address] Referral Appointment Requested Instructions Comment . [...] agrees with this trial. Rx called to [facility] after cost comparison which is nearly the same robert. If working well, continue the [id number] office visits. Call if not working well, and will restart xanax at HS for sleep. . Removal of lesion above using 3-0 punc h biopsy Return in 10 days for suture removal . Starts PT today Schedule with Dr. Garcia for epidural CT abdomen/pelvis results discussed Sees CHOCOLATE COATER in April and will get checked then [...]
--- OUTSIDE RECORDS SUMMARY | 2019-09-02 00:30 | XMS REPORT | CCD ---
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 Name Role Phone Alexandra Carroll D.O., PP Unavailable CCM Unavailable Summary Purpose Interface Exchange Insurance Providers Payer name Policy type / Coverage type Covered republican ID Effective Begin Date Effective End Date WPS MEDICARE PART B [place] Medicare Part B [id number] 2019 Unknown [employer] [place] Medicare Part B [id number] 2019 Unknown Family History Family History data not found Social History Social History Element Codes Description Effective Dates Tobacco history SNOMED CT: 497890665 Nonsmoker 10/14/2010 Allergies, Adverse Reactions, Alerts Substance Reaction Codes Entered Date Inactivated Date Status MORPHINE SULFATE RxNorm: 7689896 10/14/2010 No Inactive Da te Active CEPHALOSPORINS [...] Fill Instructions cyclobenzaprine 10 mg tablet RxNorm: 621858 1 Tablet(s) Oral three times a day as needed for muscle spasm 02/12/2019 02/12/2019 Inactive Xanax 1 mg tablet RxNorm: 253431 1-2 Tablet(s) Oral e very night at bedtime as needed for sleep 02/09/2019 03/10/2019 Inactive Generic For:LAVELLE AX 1MG 10/11/2016 11:15:13 AM Xanax 1 mg tablet RxNorm: 700128 1-2 Tablet(s) Oral e very night at bedtime as needed for sleep 01/22/2019 02/08/2019 Inactive Generic For:LAVELLE AX 1MG 10/11/2016 11:15:13 AM Celexa 40 mg tablet RxNorm: 588660 1 Tablet(s) Oral QD 01/17/2019 Active - First Attempt Ref: [id number] Xanax 1 mg tablet RxNorm: 041036 1 Tablet(s) Oral every night a t bedtime 01/08/2019 01/21/2019 Inactive levothyroxine 88 mcg tablet RxNorm: 150950 TAKE 1 TABLET BY NINA TH DAILY 12/19/2018 06/16/2019 Active - First Attempt Ref: [id number] Xanax 1 mg tablet RxNorm: 444371 1 Tablet(s) Oral every night a t bedtime 12/06/2018 01/05/2019 Inactive Singulair 10 mg tablet RxNorm: 879231 1 Tablet(s) Oral every ni ght at bedtime 11/23/2018 11/17/2019 Active - First Attempt Ref: [id number] Celexa 40 mg tablet RxNorm: 792279 1 Tablet(s) Oral 11/23/20182018 Inactive - First Attempt Ref: [id number] cyclobenzaprine 10 mg tablet RxNorm: 951472 1 Tablet(s) Oral three times a day as needed for muscle spasm 11/23/2018 02/11/2019 Inactive Xanax 1 mg tablet RxNorm: 234439 1 Tablet(s) PO QHS 11/06/20182018 Inactive Xanax 1 mg tablet RxNorm: 172925 1 Tablet(s) PO QHS 09/26/20182018 Inactive Singulair 10 mg tablet RxNorm: 397580 TAKE 1 TABLET BY MOUTH EVERY NIGHT AT BEDTIME 08/16/2018 11/22/2018 Inactive - First Attempt Ref: [id number] Xanax 1 mg tablet RxNorm: 836709 1 Tablet(s) PO QHS 08/01/20182018 Inactive levothyroxine 88 mcg tablet RxNorm: 566323 TAKE 1 TABLET BY NINA TH DAILY 07/31/2018 12/18/2018 Inactive - First Attempt Ref: [id number] Celexa 40 mg tablet RxNorm: 030394 TAKE 1 TABLET BY MOUTH DAILY 04/201811/22/2018 Inactive - First Attempt Ref: [id number] 54 bupropion HCl SR 100 mg tablet,12 hr sustained-release RxNor m: 560500 1 Tablet(s) PO BID 07/12/2018 07/06/2019 Active - Ref: [id number] 7 Claritin-D 24 Hour 10 mg-240 mg tablet,extended release RxNo rm: 3733803 1 Tablet(s) PO QD 06/29/2018 2018 Inactive Claritin-D 24 Hour 10 mg-240 mg tablet,extended release RxNo rm: 9729818 1 Tablet(s) PO QD 06/29/2018 2018 Inactive Xanax 1 mg tablet RxNorm: 424899 1-2 Tablet(s) PO QHS as needed for sleep 05/26/2018 06/23/2018 Inactive Generic For:XANAX 1M G 10/11/2016 11:15:13 AM Xanax 1 mg tablet RxNorm: 808442 1-2 Tablet(s) PO QHS as needed for sleep 03/28/2018 05/25/2018 Inactive Generic For:XANAX 1M G 10/11/2016 11:15:13 AM Macrobid 100 mg capsule RxNorm: 376714 1 Capsule(s) PO BID 03/27/1903/31/2018 Inactive gabapentin 300 mg capsule RxNorm: 054494 1 Capsule(s) PO QHS 201703/26/2018 Inactive Claritin-D 24 Hour 10 mg-240 mg tablet,extended release RxNo rm: 4760490 1 Tablet(s) PO QD 01/26/2018 02/24/2018 Inactive gabapentin 100 mg capsule RxNorm: 238259 1 Capsule(s) P O QHS for 1 week then 2 po q HS for 2 weeks then 3 po q HS 01/24/2018 03/26/2018 Inactive Xanax 1 mg tablet RxNorm: 698766 1-2 Tablet(s) PO QHS as needed for sleep 01/24/2018 03/24/2018 Inactive Generic For:XANAX 1M G 10/11/2016 11:15:13 AM prednisone 20 mg tablet RxNorm: 976259 1 Tablet(s) PO T ID for 3 days then 1 po BID for 3 days then one daily for 3 days 12/29/2017 03/26/2018 Inactiv e prednisone 20 mg tablet RxNorm: 154066 3 Tablet(s) PO T ID for 3 days then 1 po BID for 3 days then one daily for 3 days 12/29/2017 12/29/2017 Inactiv e Macrobid 100 mg capsule RxNorm: 558907 1 Capsule(s) PO BID 12/30/19 18 01/02/2018 Inactive Xanax 1 mg tablet RxNorm: 553707 1-2 Tablet(s) PO QHS as needed for sleep 12/28/2017 01/23/2018 Inactive Generic For:XANAX 1M G 10/11/2016 11:15:13 AM Medrol (Walter) 4 mg tablets in a dose pack RxNorm: 848991 Tablet(s) PO take as directed 12/01/2017 03/26/2018 Inactive Keflex 750 mg capsule RxNorm: 008825 1 Capsule(s) PO BID 12/01/2017 1 Inactive clindamycin HCl 300 mg capsule RxNorm: 104986 2 Capsule(s) PO TID 1 12/08/2017 Inactive Xanax 1 mg tablet RxNorm: 977834 1-2 Tablet(s) PO QHS as needed for sleep 11/28/2017 12/27/2017 Inactive Generic For:XANAX 1M G 10/11/2016 11:15:13 AM mupirocin 2 % topical ointment RxNorm: 864757 1 Application OTIC BI D 11/28/2017 08/09/2018 Inactive Xanax 1 mg tablet RxNorm: 598929 1-2 Tablet(s) PO QHS as needed for sleep 10/27/2017 11/25/2017 Inactive Generic For:XANAX 1M G 10/11/2016 11:15:13 AM Macrobid 100 mg capsule RxNorm: 990821 1 Capsule(s) PO BID 10/11/19 18 10/16/2017 Inactive Medrol (Walter) 4 mg tablets in a dose pack RxNorm: 374642 Tablet(s) PO take as directed 10/10/2017 11/16/2017 Inactive Xanax 1 mg tablet RxNorm: 957843 1-2 Tablet(s) PO QHS as needed for sleep 09/28/2017 10/26/2017 Inactive Generic For:XANAX 1M G 10/11/2016 11:15:13 AM Xanax 1 mg tablet RxNorm: 594281 1-2 Tablet(s) PO QHS as needed for sleep 08/30/2017 09/27/2017 Inactive Generic For:XANAX 1M G 10/11/2016 11:15:13 AM Xanax 1 mg tablet RxNorm: 323665 1-2 Tablet(s) PO QHS as needed for sleep 08/30/2017 08/29/2017 Inactive Generic For:XANAX 1M G 10/11/2016 11:15:13 AM Xanax 1 mg tablet RxNorm: 066962 1-2 Tablet(s) PO QHS as needed for sleep 08/01/2017 08/29/2017 Inactive Generic For:XANAX 1M G 10/11/2016 11:15:13 AM Xanax 1 mg tablet RxNorm: 041032 1-2 Tablet(s) PO QHS as needed for sleep 06/29/2017 2017 Inactive Generic For:XANAX 1M G 10/11/2016 11:15:13 AM Claritin-D 24 Hour 10 mg-240 mg tablet,extended release RxNo rm: 4808461 1 Tablet(s) PO QD 06/29/2017 2017 Inactive levothyroxine 88 mcg tablet RxNorm: 295316 1 Tablet(s) PO QD 201709/10/2017 Inactive Xanax 1 mg tablet RxNorm: 270470 1-2 Tablet(s) PO QHS as needed for sleep 05/26/2017 06/28/2017 Inactive Generic For:XANAX 1M G 10/11/2016 11:15:13 AM Claritin-D 24 Hour 10 mg-240 mg tablet,extended release RxNo rm: 6843221 1 Tablet(s) PO QD 05/26/2017 06/24/2017 Inactive bupropion HCl SR 100 mg tablet,12 hr sustained-release RxNor m: 740302 Tablet(s) Take 1 tablet by mouth two times daily 04/06/2017 12/31/2017 Inactive - Ref: [id number] Xanax 1 mg tablet RxNorm: 873539 1-2 Tablet(s) PO QHS as needed for sleep 03/24/2017 05/22/2017 Inactive Generic For:XANAX 1M G 10/11/2016 11:15:13 AM Medrol (Walter) 4 mg tablets in a dose pack RxNorm: 779965 Tablet(s) P O 02/16/2017 03/27/2017 Inactive Xanax 1 mg tablet RxNorm: 093772 Tablet(s) TAKE ONE T O TWO TABLETS BY MOUTH AT BEDTIME NEEDED 02/16/2017 03/17/2017 Inactive Generic For:XA NAX 1MG 10/11/2016 11:15:13 AM Claritin-D 24 Hour 10 mg-240 mg tablet,extended release RxNo rm: 2132863 1 Tablet(s) PO QD 02/16/2017 04/16/2017 Inactive cefdinir 300 mg capsule RxNorm: 044180 2 Capsule(s) PO QD 02/16/2017 02/25/2017 Inactive Celexa 40 mg tablet RxNorm: 155562 Tablet(s) Take 1 tablet by m outh daily 12/23/2016 09/18/2017 Inactive - Ref: [id number] Xanax 1 mg tablet RxNorm: 890421 Tablet(s) TAKE ONE T O TWO TABLETS BY MOUTH AT BEDTIME NEEDED 12/16/2016 01/14/2017 Inactive Generic For:XA NAX 1MG 10/11/2016 11:15:13 AM Xanax 1 mg tablet RxNorm: 307673 Tablet(s) TAKE ONE T O TWO TABLETS BY MOUTH AT BEDTIME NEEDED 11/18/2016 12/15/2016 Inactive Generic For:XA NAX 1MG 10/11/2016 11:15:13 AM Xanax 1 mg tablet RxNorm: 251753 TAKE ONE TO TWO TABL ETS BY MOUTH AT BEDTIME NEEDED 10/11/2016 11/17/2016 Inactive Generic For:XANA X 1MG 10/11/2016 11:15:13 AM Mobic 15 mg tablet RxNorm: 341277 1 Tablet(s) PO QD 09/06/20162016 Inactive Claritin-D 24 Hour 10 mg-240 mg tablet,extended release RxNo rm: 2688229 1 Tablet(s) PO QD 09/02/2016 11/30/2016 Inactive prednisone 20 mg tablet RxNorm: 151137 1 Tablet(s) PO T ID for 3 days then 1 po BID for 3 days then one daily for 3 days 08/16/2016 03/27/2017 Inactiv e cefdinir 300 mg capsule RxNorm: 392430 2 Capsule(s) PO QD 08/16/2016 09/05/2016 Inactive Xanax 1 mg tablet RxNorm: 665356 TAKE ONE TO TWO TABL ETS BY MOUTH AT BEDTIME NEEDED 08/05/2016 10/11/2016 Inactive Generic For:XANA X 1MG 08/05/2016 2:27:03 PM08/04/2016 4:15:22 PM Singulair 10 mg tablet RxNorm: 624068 1 Tablet(s) PO QHS 07/06/2016 0 09/03/2016 Inactive prednisone 20 mg tablet RxNorm: 460705 1 Tablet(s) PO T ID for 3 days then 1 po BID for 3 days then one daily for 3 days 06/15/2016 07/05/2016 Inactiv e Singulair 10 mg tablet RxNorm: 438091 1 Tablet(s) PO QHS 06/15/2016 0 07/05/2016 Inactive cefdinir 300 mg capsule RxNorm: 408946 2 Capsule(s) PO QD 06/15/2016 07/05/2016 Inactive Xanax 1 mg tablet RxNorm: 263633 1-2 Tablet(s) PO QHS 05/21/201610/2016 Inactive Claritin-D 24 Hour 10 mg-240 mg tablet,extended release RxNo rm: 5239883 1 Tablet(s) PO QD 04/09/2016 07/07/2016 Inactive Xanax 1 mg tablet RxNorm: 243990 1-2 Tablet(s) PO QHS 03/23/201604/29 Inactive levothyroxine 88 mcg tablet RxNorm: 199813 1 Tablet(s) PO QD 201606/13/2017 Inactive bupropion HCl SR 100 mg tablet,sustained-release RxNorm: 993 503 Take 1 tablet by mouth two times daily 03/15/2016 12/09/2016 Inactive - Ref: 20 [id number] Celexa 40 mg tablet RxNorm: 559743 Take 1 tablet by mouth daily 12/23/2016 Inactive - Ref: [id number] Xanax 1 mg tablet RxNorm: 663391 1-2 Tablet(s) PO QHS 02/17/201603/01 Inactive levothyroxine 88 mcg tablet RxNorm: 431908 1 Tablet(s) PO QD 201502/22/2016 Inactive Xanax 1 mg tablet RxNorm: 931527 1-2 Tablet(s) PO QHS 11/25/201511/29 Inactive levothyroxine 88 mcg tablet RxNorm: 511765 1 Tablet(s) PO QD 201511/24/2015 Inactive temazepam 30 mg capsule RxNorm: 548159 1 Capsule(s) PO QHS 11/13/19 16 11/24/2015 Inactive Xanax 1 mg tablet RxNorm: 954313 1-2 Tablet(s) PO QHS 09/15/201510/29 Inactive Celexa 40 mg tablet RxNorm: 993326 1 Tablet(s) PO QD 1 Tablet(s ) PO QD 09/10/2015 09/16/2015 Inactive bupropion HCl SR 100 mg tablet,sustained-release RxNorm: 993 503 1 Tablet(s) PO BID 09/10/2015 09/23/2015 Inactive Xanax 1 mg tablet RxNorm: 264277 1-2 Tablet(s) PO QHS 09/10/201508/28 Inactive Xanax 1 mg tablet RxNorm: 845583 1-2 Tablet(s) PO QHS 08/11/201508/28 Inactive cyclobenzaprine 10 mg tablet RxNorm: 175239 1 Tablet(s) PO TID prn spasm 07/09/2015 11/23/2018 Inactive Celexa 40 mg tablet RxNorm: 367036 1 Tablet(s) PO QD 06/06/201508/03 Inactive Xanax 1 mg tablet RxNorm: 099213 1-2 Tablet(s) PO QHS 06/04/201505/2015 Inactive levothyroxine 88 mcg tablet RxNorm: 481611 1 Tablet(s) PO QD 201511/23/2015 Inactive Ceftin 500 mg tablet RxNorm: 994505 1 Tablet(s) PO BID 05/05/2015 Inactive Ceftin 500 mg tablet RxNorm: 464781 1 Tablet(s) PO BID 05/05/201507/2015 Inactive meloxicam 15 mg tablet RxNorm: 140708 1 Tablet(s) PO QD 04/16/2015 Inactive meloxicam 15 mg tablet RxNorm: 854081 1 Tablet(s) PO QD 04/16/2015 Inactive diclofenac sodium 75 mg tablet,delayed release RxNorm: 12745 6 1 Tablet(s) PO BID 04/04/2015 04/15/2015 Inactive diclofenac sodium 75 mg tablet,delayed release RxNorm: 67922 6 1 Tablet(s) PO BID 04/04/2015 04/03/2015 Inactive Tivorbex 40 mg capsule RxNorm: 1673740 1 Capsule(s) PO TID 03/24/19 16 04/02/2015 Inactive bupropion HCl SR 100 mg tablet,sustained-release RxNorm: 993 503 1 Tablet(s) PO BID 03/11/2015 09/06/2015 Inactive cyclobenzaprine 10 mg tablet RxNorm: 378071 1 Tablet(s) PO TID prn spasm 03/11/2015 07/08/2015 Inactive levothyroxine 88 mcg tablet RxNorm: 784216 1 Tablet(s) PO QD 201405/27/2015 Inactive Claritin-D 24 Hour 10 mg-240 mg tablet,extended release RxNo rm: 9916200 1 Tablet(s) PO QD 02/27/2015 05/27/2015 Inactive cefuroxime axetil 500 mg tablet RxNorm: 637934 1 Tablet(s) PO BID 1 03/12/2015 Inactive Celexa 40 mg tablet RxNorm: 546112 1 Tablet(s) PO QD 02/05/201504/05 Inactive levothyroxine 75 mcg tablet RxNorm: 686225 1 Tablet(s) PO QD 201402/26/2015 Inactive Celexa 40 mg tablet RxNorm: 295818 1 Tablet(s) PO QD 10/09/201402/04 Inactive Activella 1 mg-0.5 mg tablet RxNorm: 4697081 1 Tablet(s) PO QD 08/2802/26/2015 Inactive bupropion HCl SR 100 mg tablet,sustained-release RxNorm: 993 503 1 Tablet(s) PO BID 09/12/2014 03/10/2015 Inactive levothyroxine 75 mcg tablet RxNorm: 816997 1 Tablet(s) PO QD 201412/09/2014 Inactive levothyroxine 75 mcg tablet RxNorm: 108004 1 Tablet(s) PO QD 201409/11/2014 Inactive Celexa 40 mg tablet RxNorm: 023142 1 Tablet(s) PO QD 08/12/201410/08 Inactive Xanax 1 mg tablet RxNorm: 304281 1-2 Tablet(s) PO QHS 08/12/201409/28 Inactive Claritin-D 24 Hour 10 mg-240 mg tablet,extended release RxNo rm: 0514559 1 Tablet(s) PO QD 06/13/2014 09/10/2014 Inactive cyclobenzaprine 10 mg tablet RxNorm: 481832 1 Tablet(s) PO TID prn spasm 06/12/2014 02/26/2015 Inactive Xanax 1 mg tablet RxNorm: 671600 1-2 Tablet(s) PO QHS 05/09/201406/28 Inactive levothyroxine 75 mcg tablet RxNorm: 978108 1 Tablet(s) PO QD 201407/08/2014 Inactive cephalexin 500 mg capsule RxNorm: 450927 1 Capsule(s) PO QOD 201402/26/2015 Inactive simvastatin 10 mg tablet RxNorm: 802612 1 Tablet(s) PO QHS 04/10/19 15 06/12/2014 Inactive Xanax 1 mg tablet RxNorm: 656653 1-2 Tablet(s) PO QHS 04/10/201404/28 Inactive levothyroxine 75 mcg tablet RxNorm: 926202 1 Tablet(s) PO QD 201404/09/2014 Inactive levothyroxine 75 mcg capsule RxNorm: 548381 1 Capsule(s) PO QD 03/3104/10/2014 Inactive Activella 1 mg-0.5 mg tablet RxNorm: 9624493 1 Tablet(s) PO QD 03/0109/11/2014 Inactive bupropion HCl SR 100 mg tablet,sustained-release RxNorm: 993 503 1 Tablet(s) PO BID 03/04/2014 08/30/2014 Inactive Activella 1 mg-0.5 mg tablet RxNorm: 8763279 1 Tablet(s) PO QD 01/2803/18/2014 Inactive levothyroxine 75 mcg capsule RxNorm: 513610 1 Capsule(s) PO QD 12/2904/08/2014 Inactive simvastatin 10 mg tablet RxNorm: 947400 1 Tablet(s) PO QHS 01/10/20 14 04/08/2014 Inactive cyclobenzaprine 10 mg tablet RxNorm: 127298 1 Tablet(s) PO TID prn spasm 01/09/2014 04/08/2014 Inactive Cipro 500 mg tablet RxNorm: 625881 1 Tablet(s) PO BID 12/25/201304/2013 Inactive Cipro 500 mg tablet RxNorm: 448377 1 Tablet(s) PO BID 12/25/201311/29 Inactive bupropion HCl SR 100 mg tablet,sustained-release RxNorm: 993 503 1 Tablet(s) PO QAM 12/11/2013 03/03/2014 Inactive cephalexin 500 mg capsule RxNorm: 953385 1 Capsule(s) PO QOD 201304/09/2014 Inactive Xanax 1 mg tablet RxNorm: 363321 1-2 Tablet(s) PO QHS 10/15/201310/29 Inactive simvastatin 10 mg tablet RxNorm: 604322 1 Tablet(s) PO QHS 10/11/19 14 01/07/2014 Inactive Celexa 40 mg tablet RxNorm: 412744 Tablet(s) PO TAKE 1 TABLET BY MOUTH ONCE DAILY. 09/18/2013 09/17/2013 Inactive Xanax 1 mg tablet RxNorm: 907443 1-2 Tablet(s) PO QHS 08/13/201308/28 Inactive simvastatin 10 mg tablet RxNorm: 138011 1 Tablet(s) PO QHS 07/12/19 14 10/08/2013 Inactive bupropion HCl SR 100 mg tablet,sustained-release RxNorm: 993 503 1 Tablet(s) PO QAM 05/22/2013 11/17/2013 Inactive Pamelor 10 mg capsule RxNorm: 617789 1 Capsule(s) PO QHS for PLATA /sleep 05/22/2013 06/04/2013 Inactive Xanax 1 mg tablet RxNorm: 469995 1-2 Tablet(s) PO QHS 05/15/201305/29 Inactive Pamelor 10 mg capsule RxNorm: 970960 1 Capsule(s) PO QHS for PLATA /sleep 05/15/2013 05/21/2013 Inactive Xanax 1 mg tablet RxNorm: 741203 1 Tablet(s) PO QHS 04/27/20132013 Inactive Zovirax 800 mg tablet RxNorm: 597248 1 Tablet(s) PO TID 04/05/2013 Inactive Xanax 1 mg tablet RxNorm: 887162 1 Tablet(s) PO QHS 04/03/2013 No Sto p Date Active bupropion HCl SR 100 mg tablet,sustained-release RxNorm: 993 503 1 Tablet(s) PO QAM 03/26/2013 05/21/2013 Inactive bupropion HCl SR 100 mg tablet,sustained-release RxNorm: 993 503 1 Tablet(s) PO QAM 03/06/2013 03/25/2013 Inactive Pamelor 10 mg capsule RxNorm: 590496 1 Capsule(s) PO QHS for PLATA /sleep 02/14/2013 05/14/2013 Inactive levothyroxine 75 mcg capsule RxNorm: 600883 1 Capsule(s) PO QD 12/2901/08/2014 Inactive simvastatin 10 mg tablet RxNorm: 057691 1 Tablet(s) PO QHS TAKE 1 TABLET BY MOUTH ONCE DAILY AT BEDTIME. 01/15/2013 07/10/2013 Inactive cyclobenzaprine 10 mg tablet RxNorm: 572320 1 Tablet(s) PO TID prn spasm 12/25/2012 06/22/2013 Inactive Pamelor 10 mg capsule RxNorm: 751484 1 Capsule(s) PO QHS for PLATA /sleep 11/29/2012 02/14/2013 Inactive Celexa 40 mg tablet RxNorm: 763774 Tablet(s) PO TAKE 1 TABLET BY MOUTH ONCE DAILY. 10/11/2012 09/17/2013 Inactive simvastatin 10 mg tablet RxNorm: 942072 Tablet(s) PO TA KE 1 TABLET BY MOUTH ONCE DAILY AT BEDTIME. 10/11/2012 01/14/2013 Inactive simvastatin 10 mg tablet RxNorm: 112459 1 Tablet(s) PO QD 07/11/2012 10/08/2012 Inactive simvastatin 10 mg tablet RxNorm: 522797 1 Tablet(s) PO QD 04/14/2012 07/11/2012 Inactive simvastatin 10 mg tablet RxNorm: 998762 1 Tablet(s) PO QD 04/14/2012 04/13/2012 Inactive Celexa 40 mg tablet RxNorm: 607255 1 Tablet(s) PO QD 03/15/201209/10 Inactive cyclobenzaprine 10 mg tablet RxNorm: 087708 1 Tablet(s) PO TID prn spasm 02/02/2012 02/01/2012 Inactive cyclobenzaprine 10 mg tablet RxNorm: 285806 1 Tablet(s) PO TID prn spasm 02/02/2012 07/30/2012 Inactive Diflucan 100 mg Tab RxNorm: 005940 1 Tablet(s) PO QD 08/17/201108/22 Inactive Cipro 250 mg Tab RxNorm: 767979 1 Tablet(s) PO QD 08/17/2011 10/15/19 Inactive Levaquin 500 mg Tab RxNorm: 044811 1 Tablet(s) PO QD 08/17/201108/22 Inactive Pyridium 200 mg Tab RxNorm: 6787332 1 Tablet(s) PO TID 10/14/2010 Inactive may turn urine orange-red color. Cipro 500 mg Tab RxNorm: 153405 1 Tablet(s) PO BID 10/14/2010 011 Inactive levothyroxine 75 mcg capsule RxNorm: 841554 1 Capsule(s) PO QD 12/3001/14/2011 Inactive loratadine 10 mg tablet RxNorm: 179108 1 Tablet(s) PO QHS No Start Da te Active Vitamin D3 5,000 unit tablet RxNorm: 140217 1 Tablet(s) PO QD No Star t Date Active Nasacort 55 mcg nasal spray aerosol RxNorm: 6317718 2 Sp ray NASAL each nostril QHS No Start Date Active cyclobenzaprine 10 mg tablet RxNorm: 711012 1 Tablet(s) PO TID as needed No Start Date 11/22/2018 Inactive Vitamin D2 1,000 unit capsule RxNorm: 764832 3 Capsule(s) PO QD No Start Date 11/16/2017 Inactive diclofenac sodium 75 mg tablet,delayed release RxNorm: 23681 6 1 Tablet(s) PO BID No Start Date 03/16/2016 Inactive cephalexin 500 mg capsule RxNorm: 160984 1 Capsule(s) PO QOD No Sta rt Date 12/04/2013 Inactive cyclobenzaprine 10 mg tablet RxNorm: 305267 1 Tablet(s) PO QHS No S tart Date 02/01/2012 Inactive hydrocodone 5 mg-acetaminophen 500 mg tablet RxNorm: 968616 1 -2 Tablet(s) PO Q6H as needed No Start Date 08/09/2018 Inactive etodolac 400 mg tablet RxNorm: 694363 1 Tablet(s) PO TID No Start D ate 09/17/2018 Inactive Xanax 1 mg tablet RxNorm: 903951 1 Tablet(s) PO QHS No Start Date 04/2013 Inactive Vitamin D3 1,000 unit capsule RxNorm: 412015 1 Capsule(s) PO QD No Start Date 06/12/2014 Inactive estradiol 2 mg tablet RxNorm: 709436 1/2 Tablet(s) PO QD No Start D ate 03/05/2013 Inactive Celexa 40 mg tablet RxNorm: 923438 1 Tablet(s) PO QD No Start Date Inactive Activella 1 mg-0.5 mg tablet RxNorm: 5365071 1 Tablet(s) PO QD No S tart Date 07/10/2012 Inactive medroxyprogesterone 5 mg tablet RxNorm: 0858824 1/2 Tablet(s) PO QD No Start Date 03/05/2013 Inactive levothyroxine 88 mcg tablet RxNorm: 941367 1 Tablet(s) PO QD No Sta rt Date 02/26/2015 Inactive Keflex 500 mg capsule RxNorm: 431890 1 Capsule(s) PO PRN No Start D ate 08/16/2011 Inactive Activella 1 mg-0.5 mg tablet RxNorm: 3023549 1 Tablet(s) PO QHS No Start Date 03/27/2017 Inactive Activella 1 mg-0.5 mg tablet RxNorm: 0404629 1 Tablet(s) PO QD No S tart Date 02/06/2014 Inactive Flexeril 10 mg Tab RxNorm: 609428 1 Tablet(s) PO TID No Start Date Inactive prn spasm simvastatin 10 mg tablet RxNorm: 236153 1 Tablet(s) PO QD No Start Date 04/13/2012 Inactive Medication Administered No Medication Administered data Immunizations Vaccine Codes Date Status Influenza CVX: 135 01/16/2019 Complete Pneumococcal CVX: 133 01/16/2019 Complete Results No Results data Procedures Procedure Codes Date FLU VACC PRSV FREE INC ANTIG 65 AND OLDER CPT-4: 03670 01/16/2019 FLU VACC PRSV FREE INC ANTIG 65 AND OLDER CPT-4: 46514 01/16/2019 PNEUMOCOCCAL VACC 13 NARESH IM CPT-4: 82020 01/16/2019 SKIN FUNGI CULTURE CPT-4: 80163 01/16/2019 IMMUNIZATION ADMIN CPT-4: 95495 01/16/2019 IMMUNIZATION ADMIN EACH ADD CPT-4: 98930 01/16/2019 THER/PROPH/DIAG INJ SC/IM CPT-4: 60621 01/17/2018 KETOROLAC TROMETHAMINE INJ CPT-4: J1885 01/17/2018 THER/PROPH/DIAG INJ SC/IM CPT-4: 39872 01/17/2018 PROMETHAZINE HCL INJECTION CPT-4: J2550 01/17/2018 URINALYSIS NONAUTO W/O SCOPE CPT-4: 47245 12/29/2017 URINE CULTURE/ COLONY COUNT CPT-4: 23699 12/29/2017 THER/PROPH/DIAG INJ SC/IM CPT-4: 96771 11/30/2017 TRIAMCINOLONE ACET INJ NOS CPT-4: J3301 11/30/2017 DEXAMETHASONE SODIUM PHOS CPT-4: J1100 11/30/2017 CEFTRIAXONE SODIUM INJECTION CPT-4: J0696 11/29/2017 THER/PROPH/DIAG INJ SC/IM CPT-4: 29208 11/29/2017 CEFTRIAXONE SODIUM INJECTION CPT-4: J0696 11/28/2017 THER/PROPH/DIAG INJ SC/IM CPT-4: 71508 11/28/2017 URINALYSIS NONAUTO W/O SCOPE CPT-4: 59276 10/10/2017 THER/PROPH/DIAG INJ SC/IM CPT-4: 34804 10/10/2017 TRIAMCINOLONE ACET INJ NOS CPT-4: J3301 10/10/2017 DEXAMETHASONE SODIUM PHOS CPT-4: J1100 10/10/2017 CEFTRIAXONE SODIUM INJECTION CPT-4: J0696 10/10/2017 THER/PROPH/DIAG INJ SC/IM CPT-4: 28729 10/10/2017 URINE CULTURE/ COLONY COUNT CPT-4: 98129 10/10/2017 THER/PROPH/DIAG INJ SC/IM CPT-4: 05290 11/02/2016 KETOROLAC TROMETHAMINE INJ CPT-4: J1885 11/02/2016 THER/PROPH/DIAG INJ SC/IM CPT-4: 34453 06/15/2016 TRIAMCINOLONE ACET INJ NOS CPT-4: J3301 06/15/2016 DEXAMETHASONE SODIUM PHOS CPT-4: J1100 06/15/2016 THER/PROPH/DIAG INJ SC/IM CPT-4: 02305 04/09/2016 KETOROLAC TROMETHAMINE INJ CPT-4: J1885 04/09/2016 PROMETHAZINE HCL INJECTION CPT-4: J2550 04/09/2016 EXC TR-EXT B9+ERASMO 0.5 CM< CPT-4: 68186 06/12/2015 URINALYSIS NONAUTO W/O SCOPE CPT-4: 21484 05/05/2015 URINE CULTURE/ COLONY COUNT CPT-4: 36427 05/05/2015 URINALYSIS NONAUTO W/O SCOPE CPT-4: 46545 03/24/2015 URINALYSIS NONAUTO W/O SCOPE CPT-4: 04553 02/27/2015 URINE CULTURE/ COLONY COUNT CPT-4: 88757 02/27/2015 THER/PROPH/DIAG INJ SC/IM CPT-4: 36110 04/18/2014 KETOROLAC TROMETHAMINE INJ CPT-4: J1885 04/18/2014 THER/PROPH/DIAG INJ SC/IM CPT-4: 85634 06/05/2013 TRIAMCINOLONE ACET INJ NOS CPT-4: J3301 06/05/2013 THER/PROPH/DIAG INJ SC/IM CPT-4: 51832 11/29/2012 KETOROLAC TROMETHAMINE INJ CPT-4: J1885 11/29/2012 URINALYSIS NONAUTO W/O SCOPE CPT-4: 95267 07/11/2012 URINE CULTURE/ COLONY COUNT CPT-4: 22497 07/11/2012 OCCULT BLOOD FECES CPT-4: 11730 02/17/2012 URINALYSIS NONAUTO W/O SCOPE CPT-4: 46620 08/27/2011 URINE CULTURE/ COLONY COUNT CPT-4: 35664 08/27/2011 URINALYSIS NONAUTO W/O SCOPE CPT-4: 26055 08/17/2011 URINE CULTURE/ COLONY COUNT CPT-4: 73904 08/17/2011 URINALYSIS NONAUTO W/O SCOPE CPT-4: 03955 12/28/2010 URINE CULTURE/ COLONY COUNT CPT-4: 87931 12/28/2010 URINALYSIS NONAUTO W/O SCOPE CPT-4: 62572 11/09/2010 URINE CULTURE/ COLONY COUNT CPT-4: 11945 11/09/2010 URINALYSIS NONAUTO W/O SCOPE CPT-4: 34286 10/29/2010 URINE CULTURE/ COLONY COUNT CPT-4: 95404 10/29/2010 URINE CULTURE/ COLONY COUNT CPT-4: 26030 10/14/2010 URINALYSIS NONAUTO W/O SCOPE CPT-4: 96780 10/14/2010 Vital Signs Date Vital 04/10/2019 Blood [...] 1: 122/74 Code: 8480-6 BMI: 22.0 Code: 64329-9 Heart Rate 1: 72 bpm Height: 5'3" [...] 1: 126/72 Code: 8480-6 BMI: 22.7 Code: 96003-1 Heart Rate 1: 72 bpm Height: 5'3" [...] 1: 112/70 Code: 8480-6 BMI: 22.0 Code: 25237-4 Heart Rate 1: 80 bpm Height: 5'3" [...] 1: 122/64 Code: 8480-6 BMI: 21.4 Code: 90007-3 Heart Rate 1: 88 bpm Height: 5'3" Respiratory Rate: 22 bpm SpO2: 96% Tempera ture: 36.8 (C) / 98.2 (F) Weight: 121 lbs 06/22/2017 Blood Pressure 1: 124/78 Code: 8480-6 BMI: 21.6 Code: 21790-6 Heart Rate 1: 76 bpm Height: 5'3" Respiratory Rate: 20 bpm Temperature: 36 .8 (C) / 98.3 (F) Weight: 122 lbs 03/28/2017 Blood Pressure 1: 92/60 Code: 8480-6 BMI: 20.4 C ode: 38602-8 Heart Rate 1: 72 bpm Height: 5'3" Respiratory Rate: 20 bpm Temperature: 36 .9 (C) / 98.4 (F) Weight: 115 lbs 02/16/2017 Blood Pressure 1: 106/70 Code: 8480-6 BMI: 21.3 Code: 31457-7 Heart Rate 1: 82 bpm Height: 5'3" Respiratory Rate: 22 bpm SpO2: 97% Tempera ture: 36.1 (C) / 97.0 (F) Weight: 120 lbs 09/06/2016 Blood Pressure 1: 118/64 Code: 8480-6 BMI: 22.7 Code: 90805-2 Heart Rate 1: 78 bpm Height: 5'3" Respiratory Rate: 20 bpm SpO2: 98% Tempera ture: 36.2 (C) / 97.2 (F) Weight: 128 lbs 08/16/2016 Blood Pressure 1: 118/78 Code: 8480-6 BMI: 22.1 Code: 82998-6 Heart Rate 1: 78 bpm Height: 5'3" Respiratory Rate: 20 bpm SpO2: 97% Tempera ture: 36.2 (C) / 97.1 (F) Weight: 125 lbs 07/19/2016 Blood Pressure 1: 116/68 Code: 8480-6 BMI: 22.5 Code: 40085-5 Heart Rate 1: 76 bpm Height: 5'3" Respiratory Rate: 20 bpm Temperature: 36 .8 (C) / 98.2 (F) Weight: 127 lbs 07/06/2016 Blood Pressure 1: 106/70 Code: 8480-6 BMI: 22.5 Code: 25561-0 Heart Rate 1: 72 bpm Height: 5'3" Respiratory Rate: 20 bpm SpO2: 97% Tempera ture: 36.8 (C) / 98.2 (F) Weight: 127 lbs 06/15/2016 Blood Pressure 1: 136/76 Code: 8480-6 BMI: 22.9 Code: 05011-6 Heart Rate 1: 74 bpm Height: 5'3" Respiratory Rate: 18 bpm SpO2: 98% Tempera ture: 36.4 (C) / 97.6 (F) Weight: 129 lbs 04/09/2016 Blood Pressure 1: 124/78 Code: 8480-6 BMI: 23.0 Code: 66148-3 Heart Rate 1: 86 bpm Height: 5'3" Respiratory Rate: 20 bpm SpO2: 96% Tempera ture: 36.5 (C) / 97.7 (F) Weight: 130 lbs 03/17/2016 Blood Pressure 1: 116/74 Code: 8480-6 BMI: 23.4 Code: 27200-1 Heart Rate 1: 84 bpm Height: 5'3" Respiratory Rate: 20 bpm SpO2: 97% Tempera ture: 36.8 (C) / 98.3 (F) Weight: 132 lbs 11/13/2015 Blood Pressure 1: 124/78 Code: 8480-6 BMI: 23.4 Code: 24568-2 Heart Rate 1: 88 bpm Height: 5'3" Respiratory Rate: 24 bpm SpO2: 98% Tempera ture: 36.8 (C) / 98.2 (F) Weight: 132 lbs 06/12/2015 Blood Pressure 1: 126/78 Code: 8480-6 BMI: 23.6 Code: 13224-2 Heart Rate 1: 80 bpm Height: 5'3" Respiratory Rate: 20 bpm Temperature: 36 .9 (C) / 98.4 (F) Weight: 133 lbs 04/22/2015 Blood Pressure 1: 126/68 Code: 8480-6 BMI: 23.6 Code: 22206-3 Heart Rate 1: 80 bpm Height: 5'3" Respiratory Rate: 20 bpm Temperature: 36 .6 (C) / 97.9 (F) Weight: 133 lbs 03/24/2015 Blood Pressure 1: 116/66 Code: 8480-6 BMI: 22.9 Code: 53406-6 Heart Rate 1: 74 bpm Height: 5'3" Respiratory Rate: 20 bpm Temperature: 36 .4 (C) / 97.6 (F) Weight: 129 lbs 02/27/2015 Blood Pressure 1: 106/64 Code: 8480-6 BMI: 22.7 Code: 39816-1 Heart Rate 1: 74 bpm Height: 5'3" Respiratory Rate: 20 bpm Temperature: 36 .8 (C) / 98.2 (F) Weight: 128 lbs 06/13/2014 Blood Pressure 1: 104/66 Code: 8480-6 BMI: 22.7 Code: 96286-5 Heart Rate 1: 84 bpm Height: 5'3" Respiratory Rate: 20 bpm Temperature: 37 .0 (C) / 98.6 (F) Weight: 128 lbs 04/18/2014 Blood Pressure 1: 112/62 Code: 8480-6 BMI: 22.0 Code: 01846-9 Heart Rate 1: 82 bpm Height: 5'3" Respiratory Rate: 18 bpm Temperature: 36 .4 (C) / 97.6 (F) Weight: 124 lbs 12/05/2013 Blood Pressure 1: 106/70 Code: 8480-6 BMI: 23.7 Code: 48014-9 Heart Rate 1: 84 bpm Height: 5'3" [...] 1: 126/88 Code: 8480-6 BMI: 22.3 Code: 72505-8 Heart Rate 1: 96 bpm Height: 5'4" Respiratory Rate: 20 bpm Temperature: 37 .7 (C) / 99.9 (F) Weight: 130 lbs 11/29/2012 Blood Pressure 1: 122/76 Code: 8480-6 BMI: 23.0 Code: 09992-7 Heart Rate 1: 84 bpm Height: 5'4" Respiratory Rate: 20 bpm Temperature: 36 .9 (C) / 98.4 (F) Weight: 134 lbs 09/26/2012 Blood Pressure 1: 114/76 Code: 8480-6 BMI: 23.0 Code: 30221-0 Heart Rate 1: 84 bpm Height: 5'4" Respiratory Rate: 20 bpm Temperature: 37 .3 (C) / 99.1 (F) Weight: 134 lbs 07/11/2012 Blood Pressure 1: 126/78 Code: 8480-6 BMI: 23.7 Code: 69473-9 Heart Rate 1: 76 bpm Height: 5'4" Respiratory Rate: 20 bpm Temperature: 37 .1 (C) / 98.7 (F) Weight: 138 lbs 02/02/2012 Blood Pressure 1: 108/70 Code: 8480-6 BMI: 23.2 Code: 76407-1 Heart Rate 1: 88 bpm Height: 5'4" Respiratory Rate: 20 bpm Temperature: 36 .4 (C) / 97.6 (F) Weight: 135 lbs 08/17/2011 Blood Pressure 1: 108/70 Code: 8480-6 BMI: 23.2 Code: 21491-6 Heart Rate 1: 72 bpm Height: 5'4" Respiratory Rate: 20 bpm Temperature: 36 .8 (C) / 98.2 (F) Weight: 135 lbs 10/14/2010 Blood Pressure 1: 120/72 Code: 8480-6 BMI: 23.4 Code: 79564-5 Heart Rate 1: 78 bpm Height: 5'3" [...] Diagnosis: Incisional hernia[ICD10: K43.2] Alexandra CARROLL DO [facility] CPT-4: 94782 04/10/2019 ([id number]) OFFICE/OUTPATIENT VISIT EST Diagnosis: Insomnia[ICD10: G47.00] Diagnosis: Thrombocytosis[ICD10: D47.3] Alexandra CARROLL [facility] CPT-4: 94380 02/14/2019 ([id number]) OFFICE/OUTPATIENT VISIT EST Diagnosis: Small bowel obstruction[ICD10: K56.609] Diagnosis: FLU VACCINE[ICD10: Z23] Diagnosis: PNEUMOCOCCAL VACCINE[ICD10: Z23] Diagnosis: Onychomycosis[ICD10: B35.1] Alexandra KUNZ [facility] CPT-4: 35485 01/16/2019 ([id number]) OFFICE/OUTPATIENT VISIT EST Diagnosis: Diarrhea, unspecified[ICD10: R19.7] Diagnosis: Radiculopathy, lumbosacral region[ICD10: M54.17] Alexandra CARROLL [facility] CPT-4: 57432 09/18/2018 OFFICE/OUTPATIENT VISIT EST Diagnosis: Other intervertebral disc degeneration, lumbar region[ICD10: M51.36] Diagnosis: Sacroiliitis, not elsewhere classified[ICD10: M46.1] Diagnosis: Obstructive sleep apnea (adult) (pediatric)[ICD10: G47.33] [facility]: 10336 08/10/2018 ([id number]) OFFICE/OUTPATIENT VISIT EST Diagnosis: Fracture of unspecified part of left clavicle, subsequent encounter for fracture with routine healing[ICD10: S42.002D] Diagnosis: Cervicalgia[ICD10: M54.2] Diagnosis: Radiculopathy, lumbosacral region[ICD10: M54.17] Alexandra CARROLL [facility] CPT-4: 36835 03/27/2018 ([id number]) OFFICE/OUTPATIENT VISIT EST Diagnosis: Fracture of unspecified part of left clavicle, subsequent encounter for fracture with routine healing[ICD10: S42.002D] Diagnosis: Other intervertebral disc degeneration, lumbar region[ICD10: M51.36] Diagnosis: Unspecified fracture of first thoracic vertebra, subsequent encounter for fracture with routine healing[ICD10: S22.019D] Diagnosis: Unspecified fracture of second thoracic vertebra, subsequent encounter for fracture with routine healing[ICD10: S22.029D] Alexandra CARROLL [employer] [facility] CPT-4: 57340 02/23/2018 ([id number]) OFFICE/OUTPATIENT VISIT EST Diagnosis: Fracture of unspecified part of left clavicle, subsequent encounter for fracture with routine healing[ICD10: S42.002D] Diagnosis: Unspecified fracture of first thoracic vertebra, subsequent encounter for fracture with routine healing[ICD10: S22.019D] Diagnosis: Unspecified fracture of second thoracic vertebra, subsequent encounter for fracture with routine healing[ICD10: S22.029D] Alexandra CARROLL [employer] [facility] CPT-4: 40618 01/24/2018 ([id number]) OFFICE/OUTPATIENT VISIT EST Diagnosis: Migraine, unspecified, not intractable, without status migrainosus[ICD10: G43.909] Alexandra BURLESON [employer] [facility] CPT - 4: 83419 01/17/2018 ([id number]) OFFICE/OUTPATIENT VISIT EST Diagnosis: Hematuria, unspecified[ICD10: R31.9] Diagnosis: Other intervertebral disc degeneration, lumbar region[ICD10: M51.36] Diagnosis: Retention of urine, unspecified[ICD10: R33.9] Alexandra CARROLL [facility] CPT-4: 52290 12/29/2017 OFFICE/OUTPATIENT VISIT EST Diagnosis: Fracture of [...] Diagnosis: Low back pain[ICD10: M54.5] Alexandra KUNZ [employer] [facility] CPT-4: 72490 12/06/2017 ([id number]) OFFICE/OUTPATIENT VISIT EST Diagnosis: Cellulitis of right upper limb[ICD10: L03.113] Diagnosis: Allergy status to other antibiotic agents status[ICD10: Z88.1] Vandana CARROLL DO [employer] CPT-4: 95111 12/01/2017 ([id number]) OFFICE/OUTPATIENT VISIT EST Diagnosis: Cellulitis of right upper limb[ICD10: L03.113] Diagnosis: Allergy status to other antibiotic agents status[ICD10: Z88.1] Vandana CARROLL DO [facility] CPT-4: 77411 11/30/2017 ([id number]) OFFICE/OUTPATIENT VISIT EST Diagnosis: Cellulitis of right upper limb[ICD10: L03.113] Vandana CARROLL DO [facility] CPT-4: 21608 11/29/2017 ([id number]) OFFICE/OUTPATIENT VISIT EST Diagnosis: Cellulitis of right upper limb[ICD10: L03.113] Vandana CARROLL DO [employer] CPT-4: 55705 11/28/2017 ([id number]) OFFICE/OUTPATIENT VISIT EST Diagnosis: Other intervertebral disc degeneration, lumbar region[ICD10: M51.36] Diagnosis: Other retention of urine[ICD10: R33.8] Diagnosis: Primary insomnia[ICD10: F51.01] Diagnosis: Other spondylosis, site unspecified[ICD10: M47.899] Alexandra CARROLL [employer] CPT-4: 53821 11/17/2017 ([id number]) OFFICE/OUTPATIENT VISIT EST Diagnosis: Radiculopathy, lumbosacral region[ICD10: M54.17] Diagnosis: Other retention of urine[ICD10: R33.8] Diagnosis: Urinary tract infection, site not specified[ICD10: N39.0] Vandana CARROLL DO [employer] CPT-4: 04482 10/10/2017 ([id number]) PREV VISIT EST AGE 40-64 Diagnosis: Encounter for general adult medical examination without abnormal findings[ICD10: Z00.00] Diagnosis: Other intervertebral disc degeneration, lumbar region[ICD10: M51.36] Diagnosis: Hypothyroidism, unspecified[ICD10: E03.9] Diagnosis: Mixed hyperlipidemia[ICD10: E78.2] Alexandra CARROLL DO [facility] CPT-4: 29205 06/22/2017 ([id number]) OFFICE/OUTPATIENT VISIT EST Diagnosis: URI, ACUTE[ICD10: J06.9] Alexandra ROMAN [facility] CPT-4: 94569 03/28/2017 OFFICE/OUTPATIENT VISIT EST Diagnosis: Acute sinusitis, unspecified[ICD10: J01.90] Vandana CARROLL [facility] CPT-4: 45236 02/16/2017 ([id number]) OFFICE/OUTPATIENT VISIT EST Diagnosis: Migraine, unspecified, not intractable, without status migrainosus[ICD10: G43.909] Alexandra CARROLL DO [facility] CPT - 4: 28454 11/02/2016 ([id number]) OFFICE/OUTPATIENT VISIT EST Diagnosis: Pain in thoracic spine[ICD10: M54.6] Diagnosis: Chondrocostal junction syndrome [Tietze][ICD10: M94.0] Alexandra CARROLL [facility] CPT-4: 32549 09/06/2016 OFFICE/OUTPATIENT VISIT EST Diagnosis: Acute sinusitis, unspecified[ICD10: J01.90] Vidya Manuel ALEXANDRA CARROLL [facility] CPT-4: 56357 08/16/2016 ([id number]) OFFICE/OUTPATIENT VISIT EST Diagnosis: Primary insomnia[ICD10: F51.01] Diagnosis: Cramp and spasm[ICD10: R25.2] Diagnosis: Major depressive disorder, single episode, mild[ICD10: F32.0] Alexandra CARROLL [facility] CPT-4: 07047 07/19/2016 ([id number]) OFFICE/OUTPATIENT VISIT EST Diagnosis: Obstructive sleep apnea (adult) (pediatric)[ICD10: G47.33] Diagnosis: Other fatigue[ICD10: R53.83] Diagnosis: Allergic rhinitis due to pollen[ICD10: J30.1] Diagnosis: Headache[ICD10: R51] Alexandra CARROLL [facility] CPT-4: 79423 07/06/2016 ([id number]) OFFICE/OUTPATIENT VISIT EST Diagnosis: Acute recurrent sinusitis, unspecified[ICD10: J01.91] Diagnosis: Allergic rhinitis due to pollen[ICD10: J30.1] Alexandra Danelawandavioletta ALEXANDRA MacyAri DEANNE SALGUERO [facility] CPT-4: 39987 06/15/2016 ([id number]) OFFICE/OUTPATIENT VISIT EST Diagnosis: Migraine, unspecified, not intractable, without status migrainosus[ICD10: G43.909] Diagnosis: Allergic rhinitis, unspecified[ICD10: J30.9] Nae MARINQUELINE MacyAri DEANNE [employer] [facility] CPT-4: 63395 04/09/2016 ([id number]) OFFICE/OUTPATIENT VISIT EST Diagnosis: Hypothyroidism, unspecified[ICD10: E03.9] Diagnosis: Other fatigue[ICD10: R53.83] Diagnosis: Mixed hyperlipidemia[ICD10: E78.2] Diagnosis: Major depressive disorder, single episode, mild[ICD10: F32.0] Alexandra Danejames MARINALEXANDRA MacyAri DEANNE [employer] [facility] CPT-4: 58536 03/17/2016 ([id number]) OFFICE/OUTPATIENT VISIT EST Diagnosis: Insomnia, unspecified[ICD10: G47.00] Diagnosis: Encounter for therapeutic drug level monitoring[ICD10: Z51.81] Nae Mckay ALEXANDRA MacyAri DEANNE [employer] [facility] CPT-4: 16696 11/13/2015 ([id number]) OFFICE/OUTPATIENT VISIT EST Diagnosis: Hematuria, unspecified[ICD10: R31.9] Alexandra Crawford DEANNE [employer] [facility] CPT-4: 36224 05/05/2015 ([id number]) OFFICE/OUTPATIENT VISIT EST Diagnosis: Other intervertebral disc degeneration, lumbar region[ICD10: M51.36] Diagnosis: Radiculopathy, lumbosacral region[ICD10: M54.17] Alexandra FORDE MacyAri DEANNE [employer] [facility] CPT-4: 32075 04/22/2015 ([id number]) OFFICE/OUTPATIENT VISIT EST Diagnosis: Low back pain[ICD10: M54.5] Diagnosis: Recurrent and persistent hematuria with unspecified morphologic changes[ICD10: N02.9] Alexandra FORDE Ty CARROLL [facility] CPT-4: 78650 03/24/2015 ([id number]) OFFICE/OUTPATIENT VISIT EST Diagnosis: Acute sinusitis, unspecified[ICD10: J01.90] Diagnosis: Headache[ICD10: R51] Diagnosis: Retention of urine, unspecified[ICD10: R33.9] Diagnosis: Hypothyroidism, unspecified[ICD10: E03.9] Alexandra FORDE MacyAri DEANNE [facility] CPT-4: 48512 02/27/2015 ([id number]) PREV VISIT EST AGE 40-64 Diagnosis: ROUTINE MEDICAL EXAM[ICD9: V70.0] Diagnosis: HYPOTHYROIDISM[ICD9: 244.9] Diagnosis: HYPERLIPIDEMIA NEC/NOS[ICD9: 272.4] Alexandra CORDOBA Ty CARROLL [facility] CPT-4: 95534 06/13/2014 ([id number]) OFFICE/OUTPATIENT VISIT EST Diagnosis: CEPHALGIA[ICD9: 784.0] Diagnosis: Nausea[ICD9: 787.02] Shalini VanMarguerite ALEXANDRA Ty CARROLL [facility] CPT-4: 20242 04/18/2014 ([id number]) OFFICE/OUTPATIENT VISIT EST Diagnosis: INSOMNIA NOS[ICD9: 780.52] Diagnosis: Complicated grieving[ICD9: 309.0] Alexandra Louise Ty CARROLL [facility] CPT-4: 75040 12/05/2013 ([id number]) OFFICE/OUTPATIENT VISIT EST Diagnosis: Muscle twitch[ICD9: 781.0] Diagnosis: ALLERGIC RHINITIS[ICD9: 477.9] Alexandra FORDE Macy Ari DEANNE [employer] [facility] CPT-4: 44638 06/05/2013 ([id number]) OFFICE/OUTPATIENT VISIT EST Diagnosis: DEPRESSIVE DISORDER NEC[ICD9: 311] Alexandra QUINTERO Ty BURLESON [employer] [facility] CPT-4: 42782 05/22/2013 OFFICE/OUTPATIENT VISIT EST Diagnosis: Shingles[ICD9: 053.9] Alexandra FORDE [facility]acyAri [facility] CPT-[facility]: 75506 04/05/2013 ([id number]) OFFICE/OUTPATIENT VISIT EST Diagnosis: DEPRESSIVE DISORDER NEC[ICD9: 311] Alexandra SHAFFERFELIPE QUINTERO SAri CARROLL [facility] CPT-4: 94091 03/26/2013 ([id number]) OFFICE/OUTPATIENT VISIT EST Diagnosis: Complicated grieving[ICD9: 309.0] Alexandra OROZCO Dani JACOOBNDVIOLETTA [facility] CPT-4: 72554 03/06/2013 ([id number]) OFFICE/OUTPATIENT VISIT EST Diagnosis: CEPHALGIA, TENSION[ICD9: 307.81] Diagnosis: MIGRAINE NOS/NOT INTRCBL[ICD9: 346.90] Diagnosis: Cervicalgia[ICD9: 723.1] Alexandra FORDE MacyAri GIUILA IZABELLA [facility] CPT-4: 40052 11/29/2012 ([id number]) OFFICE/OUTPATIENT VISIT EST Diagnosis: Jaw pain[ICD9: 784.92] Diagnosis: Shoulder pain[ICD9: 719.41] Diagnosis: Family history of premature coronary artery disease[ICD9: V17.3] Alexandra FORDE MacyAri [facility] CPT-4: 72394 09/26/2012 ([id number]) OFFICE/OUTPATIENT VISIT EST Diagnosis: ABDOMINAL PAIN[ICD9: 789.00] Diagnosis: Constipation[ICD9: 564.00] Diagnosis: Hematuria[ICD9: 599.70] Alexandra FORDE MacyAri [facility] CPT-4: 44361 07/11/2012 ([id number]) OFFICE/OUTPATIENT VISIT EST Diagnosis: ANEMIA NOS[ICD9: 285.9] Alexandra FORDE MacyAri [facility] CPT-4: 92992 02/17/2012 ([id number]) PREV VISIT EST AGE 40-64 Diagnosis: ROUTINE MEDICAL EXAM[ICD9: V70.0] Diagnosis: HYPOTHYROIDISM[ICD9: 244.9] Diagnosis: HYPERLIPIDEMIA NEC/NOS[ICD9: 272.4] Diagnosis: Obstructive sleep apnea[ICD9: 327.23] Alexandra ISLAS MacyAri DEANNE [facility] CPT-4: 83905 02/02/2012 ([id number]) OFFICE/OUTPATIENT VISIT EST Diagnosis: URINARY TRACT INFECTION[ICD9: 599.0] Alexandra LOZANO MacyAri DEANNE DO [facility] CPT-4: 28840 08/27/2011 ([id number]) OFFICE/OUTPATIENT VISIT EST Diagnosis: URINARY TRACT INFECTION[ICD9: 599.0] Diagnosis: ACUTE CYSTITIS[ICD9: 595.0] Alexandra FORDE [facility] CPT-4: 36715 08/17/2011 OFFICE/OUTPATIENT VISIT EST Diagnosis: URINARY TRACT INFECTION[ICD9: 599.0] Steph Bowen EDMUND LOZANO MacyAri DEANNE DO [facility] CPT-4: 43976 10/14/2010 Plan of Care Planned Activity Notes Codes Status Date Visit Diagnosis Plan: Ventral hernia Discussion: See s urgery for repair Discussed signs of incarceration or strangulation then is to report to ER ICD-9 : 553.20 ICD-10 : K43.9 04/10/2019 Care Plan: Referral Order SNOMED-CT : 30 [id number] Pending 04/10/2019 Visit Diagnosis Plan: Insomnia Discussion: [...] : D47.3 02/14/2019 Appointment: Alexandra Carroll WPtel: [address] [place], [place] [id number] US FOLLOW UP 02/14/2019 Appointment: Alexandra Carroll WPtel: [address] [place], [place] [address] [place] CANCELED 02/12/2019 Visit Diagnosis Plan: Onychomycosis Discussion: Send n ail for culture ICD-9 : 110.1 ICD-10 : B35.1 01/16/2019 Visit Diagnosis Plan: Small bowel obstruction Discussi on: S/P surgery in September with postop complications of wound dehiscence ICD-9 : 560.9 ICD-10 : K56.609 01/16/2019 Appointment: Alexandra Carroll WPtel: [facility] US MEDICATION REVIEW 01/16/2019 Appointment: Alexandra Carrolltel: [address] [place], [place] [phone] US CANCELED 12/12/2018 Visit Diagnosis Plan: Diarrhea, unspecified Discussion : Due for updated colonoscopy ICD-9 : 787.91 ICD-10 : R19.7 09/18/2018 Visit Diagnosis Plan: Radiculopathy, lumbosacral regio n Discussion: Had left SI joint injection by Dr. Baig about 2 weeks ago and has fwup with him ICD-9 : 724.4 ICD-10 : M54.17 09/18/2018 Appointment: Alexandra Carroll WPtel: [address] [place] [address] US PATIENT CONSULT 15 09/18/2018 Care Plan: Referral Order SNOMED-CT : 30 [id number] Pending 09/18/2018 Visit Diagnosis Plan: Other intervertebral [...] : M46.1 08/10/2018 Appointment: Alexandra Carroll WPtel: [facility] US MEDICATION REVIEW 08/10/2018 Care Plan: Referral Order SNOMED-CT : 30 7128213 Pending 08/10/2018 Appointment: Alexandra Carrolltel: [address] [place] [phone] [place] CANCELED 04/17/2018 Visit Diagnosis Plan: Fracture [...] : M54.2 03/27/2018 Appointment: Alexandra Carroll WPtel: [address] [place], [place] [phone] US FOLLOW UP 03/27/2018 Visit Diagnosis Plan: [...] : S42.002D 02/23/2018 Appointment: Alexandra Carroll WPtel: [address] [place] [address] [place] FOLLOW UP 02/23/2018 Patient Education: gabapentin- [employer] Coupon [phone] [email or web address] Completed 02/23/2018 Visit Diagnosis Plan: Fracture of unspec ified part of left clavicle, subsequent encounter for fracture with routine healing Discussion: Hold on PT and do home stretches Trial of gabapentin Recheck 4 weeks ICD-9 : V54.11 ICD-10 : S42.002D 01/24/2018 Appointment: Alexandra Carroll WPtel: [address] [place] [address] US FOLLOW UP 01/24/2018 Visit Diagnosis Plan: Migraine, unspecif ied, not intractable, without status migrainosus Discussion: Toradol and phenergan given ICD-9 : 346.90 ICD-10 : G43.909 01/17/2018 Appointment: Alexandra Carroll WPtel: [address] [place] [address] ACUTE ILLNESS 01/17/2018 Visit Diagnosis Plan: Retention [...] : M51.36 12/29/2017 Appointment: Alexandra Carroll WPtel: [address] [place] [address] ACUTE ILLNESS 12/29/2017 Care Plan: US EXAM PELVIC COMPLETE LOINC : 18476-9 Pending 12/29/2017 Care Plan: ECHO EXAM OF ABDOMEN LOINC : 19738-2 Pending 12/29/2017 Care Plan: Referral Order SNOMED-CT : 30 [id number] Pending 12/29/2017 Visit Diagnosis Plan: Fracture of unspec ified part of left clavicle, subsequent encounter for fracture with routine healing Discussion: Start PT in another 7-14 days Off work for the rest of this week then may return to part-time work on 12/12/17 Fwup in 4 weeks ICD-9 : V54.11 ICD-10 : S42.002D 12/06/2017 Appointment: Alexandra Carroll WPtel: [address] [place], [place] [phone] FOLLOW UP 12/06/2017 Patient Education: Patient Medication [...] : Z88.1 12/01/2017 Appointment: Vandana Crowe [address] [facility] FOLLOW UP 12/01/2017 Patient Education: Patient [...] : Z88.1 11/30/2017 Appointment: Vandana Crowe [address] [facility] 11/30/2017 Patient Education: Patient Medication Summary [...] : L03.113 11/29/2017 Appointment: Vandana Crowe [address] [facility] FOLLOW UP 11/29/2017 Patient Education: Patient [...] : L03.113 11/28/2017 Appointment: [facility] [place] [place] 11/28/2017 Patient Education: Patient Medication [...] M51.36 11/17/2017 Appointment: Alexandra Carroll WPtel: [phone] [email or web address]] MEDICATION REVIEW 11/17/2017 Patient Education: Patient Medication Summary Completed 11/17/2017 Care Plan: Referral Order SNOMED-CT : 30 [id number] Pending 11/17/2017 Patient Education: Patient Medication Summary Completed 10/12/2017 Care Plan: MRI LUMBAR SPINE W/O DYE LOIN C : 76962-4 Pending 10/12/2017 Care Plan: X-RAY EXAM L-S SPINE 2/3 VWS LOINC : 64516-5 Pending 10/11/2017 Visit Diagnosis Plan: Other retention [...] [facility] with inversion table. instructed patient to go to ED immediately if she develops any incontinence with bowel or bladder. patient verbalized understanding. if no improvement, will need updated MRI and referral to surgeon. ICD-9 : 724.4 ICD-10 : M54.17 10/10/2017 Appointment: Vandana Crowe [address] [place], [place] [email or web address] ACUTE ILLNESS 10/10/2017 Patient Education: Patient Medication Summary Completed 10/10/2017 Appointment: Vandana Crowe [facility] [place] [place] 08/01/2017 Visit Diagnosis Plan: Other intervertebral disc degene ration, lumbar region Discussion: Core strengtheing and inversion table and if worsening will need updated MRI ICD-9 : 722.52 ICD-10 : M51.36 06/22/2017 Visit Diagnosis Plan: Encounter for [facility] adult medical examination without abnormal findings Discussion: Lab dis ussed Follow Up: 6 months ICD-9 : V70.0 ICD-10 : Z00.00 06/22/2017 Appointment: Alexandra Carroll WPtel: [phone] Annual Well Visit 06/22/2017 Patient Education: Patient Medication Summary Completed 06/22/2017 Patient Education: Patient Medication Summary Completed 06/16/2017 Care Plan: COMPREHEN METABOLIC PANEL [place] : 26975-3 Pending 06/16/2017 Care Plan: ASSAY THYROID STIM HORMONE Pen ding 06/16/2017 Care Plan: ASSAY OF FREE THYROXINE [place] 06/16/2017 Care Plan: LIPID PANEL LOINC : 28197-3 Pending 06/16/2017 Care Plan: CBC Pending 06/16/2017 [...] Fluids... 03/28/2017 Appointment: Alexandra Carroll WPtel: [phone] [facility] ACUTE ILLNESS 03/28/2017 Patient Education: Patient Medication Summary Completed 03/28/2017 Visit Diagnosis Plan: Acute sinusitis, unspecified Dis cussion: cefdinir and medrol dose pack prescribed to be taken as directed. tylenol/ibuprofen as needed. educated on importance of taking singulair or zyrtec daily to prevent worsening symptoms. keep hydrated. ICD-9 : 461.9 ICD-10 : J01.90 02/16/2017 Appointment: Vandana Crowe [address] [place] [address] ACUTE ILLNESS 02/16/2017 Patient Education: Patient Medication Summary Completed 02/16/2017 Appointment: Alexandra Carroll WPtel: [address] [place] [address] US INJECTION 11/02/2016 Patient Education: Patient Medication Summary Completed 11/02/2016 Visit Diagnosis Plan: Pain in thoracic spine Discussio n: Increase flexeril to 10mg po BID Add Mobic 15mg po daily Towel stretch May see chiropractor to adjust ribs Notify if persists or worsening ICD-9 : 724.1 ICD-10 : M54.6 09/06/2016 Appointment: Alexandra Carroll WPtel: [address] [place] [address] ACUTE ILLNESS 09/06/2016 Patient Education: Patient Medication Summary Completed 09/06/2016 Visit Plan: Due to hx, ERx Cefdinir and Prednisone (discussed risks for both) Given bottle for nasal saline rinses Tylenol/Ibuprofen prn pain/fever Fluids/rest Discussed s/s of worsening, RTC if no improvement 08/16/2016 Appointment: Vidya Manuel WPtel: [address] [place] [address] ACUTE ILLNESS 08/16/2016 Patient Education: Patient Medication [...] : F51.01 07/19/2016 Appointment: Alexandra Carroll WPtel: [address] [place], [place] [id number] 07/15 confirmed`sl FOLLOW UP 07/19/2016 Patient Education: [...] 327.23 ICD-10 : G47.33 07/06/2016 Appointment: Alexandra Craroll WPtel: [address] [place], [place] [id number] 07/05 confirmed-sp FOLLOW UP 07/06/2016 Patient Education: [...] : J30.1 06/15/2016 Appointment: Alexandra Carroll WPtel: [address] [place], [place] [id number] 06/14 lm ~sl ACUTE ILLNESS 06/15/2016 Patient Education: Patient Medication Summary Completed 06/15/2016 Visit Diagnosis Plan: Migraine, unspecif ied, not intractable, without status migrainosus Discussion: Injection as above Drink ple nty of water No driving x 6 hours Rest No OTC nsaids today Follow up PRN Refill called of claritin-d ICD-9 : 346.90 ICD-10 : G43.909 04/09/2016 Appointment: Nae Mckay [address] [place], [place] [email or web address] ACUTE ILLNESS 04/09/2016 Patient Education: Patient Medication [...] : E78.2 03/17/2016 Appointment: Alexandra Carroll WPtel: [address] [place], [place] [id number] 03/16 nvm~sl 03/17 confirmed`sl FOLLOW UP 0 03/17/2016 Patient Education: Patient Medication Summary Completed 03/17/2016 Appointment: Alexandra Carroll WPtel: [address] [place] [id number] [place] 03/11 lm~sl 03/15lm `sl 03/15 confirmed`sl FOLLOW U P 03/15/2016 Visit Plan: Discussed labeled indication s for benzos. Since xanax is not labeled for sleep and she has never tried anything else, encouraged her to trial restoril(another benzo) since it is labeled for sleep. She agrees with this trial. Rx called to [facility] after cost comparison which is nearly the same robert. If working well, continue the [id number] office visits. Call if not working well, and will restart xanax at HS for sleep. 11/13/2015 Appointment: Nae Mckay [address] [place], [place] [id number] 11/11 confirmed~sl FOLLOW UP 11/13/2015 Patient Education: Patient Medication Summary Completed 11/13/2015 Appointment: Alexandra Carroll WPtel: [address] [place] [address] Suture Removal 06/23/2015 Patient Education: Patient Medication Summary Completed 06/23/2015 Visit Plan: Removal of lesion above usin g 3-0 punch biopsy Return in 10 days for suture removal 06/12/2015 Appointment: Alexandra Carroll WPtel: [address] [place] [address] 06/10 lm ~sl ACUTE ILLNESS 06/12/2015 Patient Education: Patient Medication Summary Completed 06/12/2015 Referral: Soy Garcia WPtel: [facility] [address] Schedule patient around lunch time and 3 weeks from 04/22/2015 ~ Spoke with Kiesha at Dr[facility] Sandoval [facility] and 04/24/15 and scheduled the patient ~ 04/24/15 Patient is informed~ 06/03 Patient canceled the appointment ~ Patient did not show up for scheduled appointment-sp Appoint ment Requested 05/21/2015 Appointment: Alexandra Carroll WPtel: [address] [place] [address] 05/05/2015 Patient Education: Patient Medication Summary Completed 05/05/2015 Visit Plan: Starts PT today Schedule wit h Dr. Garcia for epidural CT abdomen/pelvis results discussed Sees [employer] in April and will get checked then 04/22/2015 Appointment: Alexandra Carroll WPtel: [address] [place] [address] 04/21 confirmed~lb ACUTE ILLNESS 04/22/2015 Patient Education: Patient Medication Summary Completed 04/22/2015 Referral: Lincoln Hernandez WPtel: [address] [place] [address] Referral Initiated 04/10/2015 Patient Education: Patient Medication Summary Completed 04/09/2015 Visit Plan: Start with lumosacral spine x-ray--will likely need MRI of L/S spine x-ray Needs urology--has had to have bladder stretched in past Tivorbex 03/24/2015 Appointment: Alexandra Carroll WPtel: [address] [place], [place] [phone] 03/21/15 appt confirmed cn ACUTE ILLNESS 03/24 Patient Education: Patient Medication Summary Completed 03/24/2015 Visit Plan: Saline nasal flushes prn. Ty lenol/Motrin prn headache. Notify if persists/symptoms worsening. Cefuroxime to cover both sinuses and UTI Culture urine Check lab 02/27/2015 Appointment: Alexandra Carroll WPtel: [address] [place] [address] 02/26/15 vm to confirm and need new insu meri on file is inactive cn....02/27/15 appt confirmed cn ACUTE ILLNESS 015 Patient Education: Patient Medication Summary Completed 02/27/2015 Visit Plan: Lab discussed Stop simvastat in Check lipids in 6mos Continue all other meds at current dose Had Pap and Mammo 3 weeks ago 06/13/2014 Appointment: Alexandra Carroll WPtel: [address] [place] [address] Annual Well Visit 06/13/2014 Patient Education: Patient Medication Summary Completed 06/13/2014 Appointment: Shalini Walters WPtel: [address] [place] [address] ACUTE ILLNESS 04/18/2014 Patient Education: Patient Medication Summary Completed 04/18/2014 Visit Plan: Check lab in May fwup Can try decreasing xanax to 1mg q HS with melatonin 5-10mg q HS 12/05/2013 Appointment: Alexandra Carroll WPtel: [address] [place] [address] 12/04 vm FOLLOW UP 12/05/2013 Patient Education: Patient Medication Summary Completed 12/05/2013 Appointment: Alexandra Carroll WPtel: [address] [place], [place] [phone] [place] FOLLOW UP 06/05/2013 Patient Education: Patient Medication Summary Completed 06/05/2013 Appointment: Alexandra Carroll WPtel: [address] [place] [address] FOLLOW UP 05/22/2013 Patient Education: Patient Medication Summary Completed 05/22/2013 Visit Plan: Zovirax for 2wks Notify if p ain worsens or if persists 04/05/2013 Appointment: Alexandra Carroll WPtel: [address] [place] [address] ACUTE ILLNESS 04/05/2013 Patient Education: Patient Medication Summary Completed 04/05/2013 Visit Plan: Keep Wellbutrin at current d ose Pt did see for counseling 03/26/2013 Appointment: Alexandra Carroll WPtel: [address] [place] [address] ACUTE ILLNESS 03/26/2013 Patient Education: Patient Medication Summary Completed 03/26/2013 Visit Plan: Continue citalopram at curre nt dose Increase xanax to 1-2mg q HS for sleep Add Wellbutrin Sr 100mg q AM Start Counseling 03/06/2013 Appointment: Alexandra Carroll WPtel: [address] [place] [address] ACUTE ILLNESS 03/06/2013 Patient Education: Patient Medication Summary Completed 03/06/2013 Appointment: Alexandra Carroll WPtel: [address] [place] [address] ACUTE ILLNESS 11/29/2012 Patient Education: Patient Medication Summary Completed 11/29/2012 Appointment: Alexandra Carroll WPtel: [address] [place] [address] ACUTE ILLNESS 09/26/2012 Patient Education: Patient Medication Summary Completed 09/26/2012 Appointment: Alexandra Carroll WPtel: [address] [place] [address] ACUTE ILLNESS 07/11/2012 Patient Education: Patient Medication Summary Completed 07/11/2012 Appointment: Alexandra Carroll WPtel: [address] [place] [address] US LAB 02/17/2012 Patient Education: Patient Medication Summary Completed 02/17/2012 Visit Plan: Check fasting lab Start annie y ca with Vit D Cont CPAP Mammo up-to-date Hemoccult card given 02/02/2012 Appointment: Alexandra Carroll WPtel: [address] [place] [address] PHYSICAL 02/02/2012 Patient Education: Patient Medication Summary Completed 02/02/2012 Appointment: Alexandra Carroll WPtel: [address] [place] [address] UA 08/27/2011 Patient Education: Patient Medication Summary Completed 08/27/2011 Visit Plan: Levaquin and Diflucan for 1w k Then cipro QOD for prophylaxis 08/17/2011 Appointment: Alexandra Carroll WPtel: [address] [place] [address] FOLLOW UP 08/17/2011 Patient Education: Patient Medication Summary Completed 08/17/2011 Appointment: Alexandra Carroll WPtel: [address] [place] [address] UA 12/28/2010 Patient Education: Patient Medication Summary Completed 12/28/2010 Appointment: Alexandra Carroll WPtel: [address] [place], [place] [id number] UA 11/09/2010 Patient Education: Patient Medication Summary Completed 11/09/2010 Appointment: Alexandra Carroll WPtel: [address] [place] [address] UA 10/29/2010 Patient Education: Patient Medication Summary Completed 10/29/2010 Appointment: Steph Bowen WPtel: [address] [place] [address] ACUTE ILLNESS 10/14/2010 Patient Education: Patient Medication Summary Completed 10/14/2010 Referral: Florian Baig WPtel: [facility] [address], [address] Referral Initiated Referral: Paulo Albert WPtel: [phone] [id number] [place] Referral Appointment Requested Referral: Luis Enrique Jasso WPtel: [facility] [address], [address] Referral Appointment Requested Referral: Florian Baig WPtel: [facility] [address] Referral Appointment Requested Referral: Caleb Glaser WPtel: [address] Referral Appointment Requested Referral: Florian Baig WPtel: [facility] [address] Referral Initiated Referral: Florian Baig WPtel: [facility] [address] Referral Appointment Requested Instructions Comment . [...] agrees with this trial. Rx called to [facility] after cost comparison which is nearly the same robert. If working well, continue the [id number] office visits. Call if not working well, and will restart xanax at HS for sleep. . Removal of lesion above using 3-0 punc h biopsy Return in 10 days for suture removal . Starts PT today Schedule with Dr. Garcia for epidural CT abdomen/pelvis results discussed Sees [employer] in April and will get checked [...]
--- OUTSIDE RECORDS SUMMARY | 2019-09-02 00:30 | XMS REPORT | CCD ---
Author Author Ilda Bowen APRN Organization [facility] Address [address] [place] [address] Phone Care Team Providers Care Medical Esthetician Name Role Phone Alexandra Carroll D.O., PP Unavailable CCM Unavailable Summary Purpose Interface Exchange Insurance Providers Payer name Policy type / Coverage type Covered libertarian ID Effective Begin Date Effective End Date WPS MEDICARE PART B [place] Medicare Part B [id number] 2019 Unknown [employer] [place] Medicare Part B [id number] 2019 Unknown Family History Family History data not found Social History Social History Element Codes Description Effective Dates Tobacco history SNOMED CT: 254405489 Nonsmoker 10/14/2010 Allergies, Adverse Reactions, Alerts Substance Reaction Codes Entered Date Inactivated Date Status MORPHINE SULFATE RxNorm: 3815953 10/14/2010 No Inactive Da te Active CEPHALOSPORINS [...] Fill Instructions cyclobenzaprine 10 mg tablet RxNorm: 038077 1 Tablet(s) Oral three times a day as needed for muscle spasm 02/12/2019 02/12/2019 Inactive Xanax 1 mg tablet RxNorm: 648625 1-2 Tablet(s) Oral e very night at bedtime as needed for sleep 02/09/2019 03/10/2019 Inactive Generic For:LAVELLE AX 1MG 10/11/2016 11:15:13 AM Xanax 1 mg tablet RxNorm: 671359 1-2 Tablet(s) Oral e very night at bedtime as needed for sleep 01/22/2019 02/08/2019 Inactive Generic For:LAVELLE AX 1MG 10/11/2016 11:15:13 AM Celexa 40 mg tablet RxNorm: 131767 1 Tablet(s) Oral QD 01/17/2019 Active - First Attempt Ref: [id number] Xanax 1 mg tablet RxNorm: 072192 1 Tablet(s) Oral every night a t bedtime 01/08/2019 01/21/2019 Inactive levothyroxine 88 mcg tablet RxNorm: 662385 TAKE 1 TABLET BY NINA TH DAILY 12/19/2018 06/16/2019 Active - First Attempt Ref: [id number] Xanax 1 mg tablet RxNorm: 545679 1 Tablet(s) Oral every night a t bedtime 12/06/2018 01/05/2019 Inactive Singulair 10 mg tablet RxNorm: 357793 1 Tablet(s) Oral every ni ght at bedtime 11/23/2018 11/17/2019 Active - First Attempt Ref: [id number] Celexa 40 mg tablet RxNorm: 330781 1 Tablet(s) Oral 11/23/20182018 Inactive - First Attempt Ref: [id number] cyclobenzaprine 10 mg tablet RxNorm: 692290 1 Tablet(s) Oral three times a day as needed for muscle spasm 11/23/2018 02/11/2019 Inactive Xanax 1 mg tablet RxNorm: 383753 1 Tablet(s) PO QHS 11/06/20182018 Inactive Xanax 1 mg tablet RxNorm: 673592 1 Tablet(s) PO QHS 09/26/20182018 Inactive Singulair 10 mg tablet RxNorm: 650601 TAKE 1 TABLET BY MOUTH EVERY NIGHT AT BEDTIME 08/16/2018 11/22/2018 Inactive - First Attempt Ref: [id number] Xanax 1 mg tablet RxNorm: 596341 1 Tablet(s) PO QHS 08/01/20182018 Inactive levothyroxine 88 mcg tablet RxNorm: 248665 TAKE 1 TABLET BY NINA TH DAILY 07/31/2018 12/18/2018 Inactive - First Attempt Ref: [id number] Celexa 40 mg tablet RxNorm: 014877 TAKE 1 TABLET BY MOUTH DAILY 04/201811/22/2018 Inactive - First Attempt Ref: [id number] 54 bupropion HCl SR 100 mg tablet,12 hr sustained-release RxNor m: 165512 1 Tablet(s) PO BID 07/12/2018 07/06/2019 Active - Ref: [id number] 7 Claritin-D 24 Hour 10 mg-240 mg tablet,extended release RxNo rm: 8710698 1 Tablet(s) PO QD 06/29/2018 2018 Inactive Claritin-D 24 Hour 10 mg-240 mg tablet,extended release RxNo rm: 7344768 1 Tablet(s) PO QD 06/29/2018 2018 Inactive Xanax 1 mg tablet RxNorm: 170072 1-2 Tablet(s) PO QHS as needed for sleep 05/26/2018 06/23/2018 Inactive Generic For:XANAX 1M G 10/11/2016 11:15:13 AM Xanax 1 mg tablet RxNorm: 465035 1-2 Tablet(s) PO QHS as needed for sleep 03/28/2018 05/25/2018 Inactive Generic For:XANAX 1M G 10/11/2016 11:15:13 AM Macrobid 100 mg capsule RxNorm: 709547 1 Capsule(s) PO BID 03/27/1903/31/2018 Inactive gabapentin 300 mg capsule RxNorm: 108519 1 Capsule(s) PO QHS 201703/26/2018 Inactive Claritin-D 24 Hour 10 mg-240 mg tablet,extended release RxNo rm: 0722026 1 Tablet(s) PO QD 01/26/2018 02/24/2018 Inactive gabapentin 100 mg capsule RxNorm: 180318 1 Capsule(s) P O QHS for 1 week then 2 po q HS for 2 weeks then 3 po q HS 01/24/2018 03/26/2018 Inactive Xanax 1 mg tablet RxNorm: 048290 1-2 Tablet(s) PO QHS as needed for sleep 01/24/2018 03/24/2018 Inactive Generic For:XANAX 1M G 10/11/2016 11:15:13 AM prednisone 20 mg tablet RxNorm: 383314 1 Tablet(s) PO T ID for 3 days then 1 po BID for 3 days then one daily for 3 days 12/29/2017 03/26/2018 Inactiv e prednisone 20 mg tablet RxNorm: 239563 3 Tablet(s) PO T ID for 3 days then 1 po BID for 3 days then one daily for 3 days 12/29/2017 12/29/2017 Inactiv e Macrobid 100 mg capsule RxNorm: 941379 1 Capsule(s) PO BID 12/30/19 18 01/02/2018 Inactive Xanax 1 mg tablet RxNorm: 874982 1-2 Tablet(s) PO QHS as needed for sleep 12/28/2017 01/23/2018 Inactive Generic For:XANAX 1M G 10/11/2016 11:15:13 AM Medrol (Walter) 4 mg tablets in a dose pack RxNorm: 150182 Tablet(s) PO take as directed 12/01/2017 03/26/2018 Inactive Keflex 750 mg capsule RxNorm: 870058 1 Capsule(s) PO BID 12/01/2017 1 Inactive clindamycin HCl 300 mg capsule RxNorm: 178511 2 Capsule(s) PO TID 1 12/08/2017 Inactive Xanax 1 mg tablet RxNorm: 770009 1-2 Tablet(s) PO QHS as needed for sleep 11/28/2017 12/27/2017 Inactive Generic For:XANAX 1M G 10/11/2016 11:15:13 AM mupirocin 2 % topical ointment RxNorm: 065996 1 Application OTIC BI D 11/28/2017 08/09/2018 Inactive Xanax 1 mg tablet RxNorm: 114802 1-2 Tablet(s) PO QHS as needed for sleep 10/27/2017 11/25/2017 Inactive Generic For:XANAX 1M G 10/11/2016 11:15:13 AM Macrobid 100 mg capsule RxNorm: 246082 1 Capsule(s) PO BID 10/11/19 18 10/16/2017 Inactive Medrol (Walter) 4 mg tablets in a dose pack RxNorm: 920215 Tablet(s) PO take as directed 10/10/2017 11/16/2017 Inactive Xanax 1 mg tablet RxNorm: 845417 1-2 Tablet(s) PO QHS as needed for sleep 09/28/2017 10/26/2017 Inactive Generic For:XANAX 1M G 10/11/2016 11:15:13 AM Xanax 1 mg tablet RxNorm: 530467 1-2 Tablet(s) PO QHS as needed for sleep 08/30/2017 09/27/2017 Inactive Generic For:XANAX 1M G 10/11/2016 11:15:13 AM Xanax 1 mg tablet RxNorm: 479406 1-2 Tablet(s) PO QHS as needed for sleep 08/30/2017 08/29/2017 Inactive Generic For:XANAX 1M G 10/11/2016 11:15:13 AM Xanax 1 mg tablet RxNorm: 186425 1-2 Tablet(s) PO QHS as needed for sleep 08/01/2017 08/29/2017 Inactive Generic For:XANAX 1M G 10/11/2016 11:15:13 AM Xanax 1 mg tablet RxNorm: 007737 1-2 Tablet(s) PO QHS as needed for sleep 06/29/2017 2017 Inactive Generic For:XANAX 1M G 10/11/2016 11:15:13 AM Claritin-D 24 Hour 10 mg-240 mg tablet,extended release RxNo rm: 6188286 1 Tablet(s) PO QD 06/29/2017 2017 Inactive levothyroxine 88 mcg tablet RxNorm: 170654 1 Tablet(s) PO QD 201709/10/2017 Inactive Xanax 1 mg tablet RxNorm: 962530 1-2 Tablet(s) PO QHS as needed for sleep 05/26/2017 06/28/2017 Inactive Generic For:XANAX 1M G 10/11/2016 11:15:13 AM Claritin-D 24 Hour 10 mg-240 mg tablet,extended release RxNo rm: 5327328 1 Tablet(s) PO QD 05/26/2017 06/24/2017 Inactive bupropion HCl SR 100 mg tablet,12 hr sustained-release RxNor m: 157513 Tablet(s) Take 1 tablet by mouth two times daily 04/06/2017 12/31/2017 Inactive - Ref: [id number] Xanax 1 mg tablet RxNorm: 673599 1-2 Tablet(s) PO QHS as needed for sleep 03/24/2017 05/22/2017 Inactive Generic For:XANAX 1M G 10/11/2016 11:15:13 AM Medrol (Walter) 4 mg tablets in a dose pack RxNorm: 712954 Tablet(s) P O 02/16/2017 03/27/2017 Inactive Xanax 1 mg tablet RxNorm: 911437 Tablet(s) TAKE ONE T O TWO TABLETS BY MOUTH AT BEDTIME NEEDED 02/16/2017 03/17/2017 Inactive Generic For:XA NAX 1MG 10/11/2016 11:15:13 AM Claritin-D 24 Hour 10 mg-240 mg tablet,extended release RxNo rm: 0612699 1 Tablet(s) PO QD 02/16/2017 04/16/2017 Inactive cefdinir 300 mg capsule RxNorm: 584173 2 Capsule(s) PO QD 02/16/2017 02/25/2017 Inactive Celexa 40 mg tablet RxNorm: 215910 Tablet(s) Take 1 tablet by m outh daily 12/23/2016 09/18/2017 Inactive - Ref: [id number] Xanax 1 mg tablet RxNorm: 222904 Tablet(s) TAKE ONE T O TWO TABLETS BY MOUTH AT BEDTIME NEEDED 12/16/2016 01/14/2017 Inactive Generic For:XA NAX 1MG 10/11/2016 11:15:13 AM Xanax 1 mg tablet RxNorm: 163291 Tablet(s) TAKE ONE T O TWO TABLETS BY MOUTH AT BEDTIME NEEDED 11/18/2016 12/15/2016 Inactive Generic For:XA NAX 1MG 10/11/2016 11:15:13 AM Xanax 1 mg tablet RxNorm: 672248 TAKE ONE TO TWO TABL ETS BY MOUTH AT BEDTIME NEEDED 10/11/2016 11/17/2016 Inactive Generic For:XANA X 1MG 10/11/2016 11:15:13 AM Mobic 15 mg tablet RxNorm: 222804 1 Tablet(s) PO QD 09/06/20162016 Inactive Claritin-D 24 Hour 10 mg-240 mg tablet,extended release RxNo rm: 8971254 1 Tablet(s) PO QD 09/02/2016 11/30/2016 Inactive prednisone 20 mg tablet RxNorm: 005361 1 Tablet(s) PO T ID for 3 days then 1 po BID for 3 days then one daily for 3 days 08/16/2016 03/27/2017 Inactiv e cefdinir 300 mg capsule RxNorm: 312703 2 Capsule(s) PO QD 08/16/2016 09/05/2016 Inactive Xanax 1 mg tablet RxNorm: 090434 TAKE ONE TO TWO TABL ETS BY MOUTH AT BEDTIME NEEDED 08/05/2016 10/11/2016 Inactive Generic For:XANA X 1MG 08/05/2016 2:27:03 PM08/04/2016 4:15:22 PM Singulair 10 mg tablet RxNorm: 489071 1 Tablet(s) PO QHS 07/06/2016 0 09/03/2016 Inactive prednisone 20 mg tablet RxNorm: 692229 1 Tablet(s) PO T ID for 3 days then 1 po BID for 3 days then one daily for 3 days 06/15/2016 07/05/2016 Inactiv e Singulair 10 mg tablet RxNorm: 807480 1 Tablet(s) PO QHS 06/15/2016 0 07/05/2016 Inactive cefdinir 300 mg capsule RxNorm: 883028 2 Capsule(s) PO QD 06/15/2016 07/05/2016 Inactive Xanax 1 mg tablet RxNorm: 976532 1-2 Tablet(s) PO QHS 05/21/201610/2016 Inactive Claritin-D 24 Hour 10 mg-240 mg tablet,extended release RxNo rm: 2238780 1 Tablet(s) PO QD 04/09/2016 07/07/2016 Inactive Xanax 1 mg tablet RxNorm: 553868 1-2 Tablet(s) PO QHS 03/23/201604/29 Inactive levothyroxine 88 mcg tablet RxNorm: 237613 1 Tablet(s) PO QD 201606/13/2017 Inactive bupropion HCl SR 100 mg tablet,sustained-release RxNorm: 993 503 Take 1 tablet by mouth two times daily 03/15/2016 12/09/2016 Inactive - Ref: 20 [id number] Celexa 40 mg tablet RxNorm: 708379 Take 1 tablet by mouth daily 12/23/2016 Inactive - Ref: [id number] Xanax 1 mg tablet RxNorm: 477456 1-2 Tablet(s) PO QHS 02/17/201603/01 Inactive levothyroxine 88 mcg tablet RxNorm: 380933 1 Tablet(s) PO QD 201502/22/2016 Inactive Xanax 1 mg tablet RxNorm: 855122 1-2 Tablet(s) PO QHS 11/25/201511/29 Inactive levothyroxine 88 mcg tablet RxNorm: 473671 1 Tablet(s) PO QD 201511/24/2015 Inactive temazepam 30 mg capsule RxNorm: 819863 1 Capsule(s) PO QHS 11/13/19 16 11/24/2015 Inactive Xanax 1 mg tablet RxNorm: 530474 1-2 Tablet(s) PO QHS 09/15/201510/29 Inactive Celexa 40 mg tablet RxNorm: 368890 1 Tablet(s) PO QD 1 Tablet(s ) PO QD 09/10/2015 09/16/2015 Inactive bupropion HCl SR 100 mg tablet,sustained-release RxNorm: 993 503 1 Tablet(s) PO BID 09/10/2015 09/23/2015 Inactive Xanax 1 mg tablet RxNorm: 928661 1-2 Tablet(s) PO QHS 09/10/201508/28 Inactive Xanax 1 mg tablet RxNorm: 250877 1-2 Tablet(s) PO QHS 08/11/201508/28 Inactive cyclobenzaprine 10 mg tablet RxNorm: 932458 1 Tablet(s) PO TID prn spasm 07/09/2015 11/23/2018 Inactive Celexa 40 mg tablet RxNorm: 236744 1 Tablet(s) PO QD 06/06/201508/03 Inactive Xanax 1 mg tablet RxNorm: 309110 1-2 Tablet(s) PO QHS 06/04/201505/2015 Inactive levothyroxine 88 mcg tablet RxNorm: 958965 1 Tablet(s) PO QD 201511/23/2015 Inactive Ceftin 500 mg tablet RxNorm: 176213 1 Tablet(s) PO BID 05/05/2015 Inactive Ceftin 500 mg tablet RxNorm: 010237 1 Tablet(s) PO BID 05/05/201507/2015 Inactive meloxicam 15 mg tablet RxNorm: 994676 1 Tablet(s) PO QD 04/16/2015 Inactive meloxicam 15 mg tablet RxNorm: 266965 1 Tablet(s) PO QD 04/16/2015 Inactive diclofenac sodium 75 mg tablet,delayed release RxNorm: 04574 6 1 Tablet(s) PO BID 04/04/2015 04/15/2015 Inactive diclofenac sodium 75 mg tablet,delayed release RxNorm: 60786 6 1 Tablet(s) PO BID 04/04/2015 04/03/2015 Inactive Tivorbex 40 mg capsule RxNorm: 4667354 1 Capsule(s) PO TID 03/24/19 16 04/02/2015 Inactive bupropion HCl SR 100 mg tablet,sustained-release RxNorm: 993 503 1 Tablet(s) PO BID 03/11/2015 09/06/2015 Inactive cyclobenzaprine 10 mg tablet RxNorm: 812011 1 Tablet(s) PO TID prn spasm 03/11/2015 07/08/2015 Inactive levothyroxine 88 mcg tablet RxNorm: 694934 1 Tablet(s) PO QD 201405/27/2015 Inactive Claritin-D 24 Hour 10 mg-240 mg tablet,extended release RxNo rm: 3017515 1 Tablet(s) PO QD 02/27/2015 05/27/2015 Inactive cefuroxime axetil 500 mg tablet RxNorm: 833241 1 Tablet(s) PO BID 1 03/12/2015 Inactive Celexa 40 mg tablet RxNorm: 208477 1 Tablet(s) PO QD 02/05/201504/05 Inactive levothyroxine 75 mcg tablet RxNorm: 362002 1 Tablet(s) PO QD 201402/26/2015 Inactive Celexa 40 mg tablet RxNorm: 270637 1 Tablet(s) PO QD 10/09/201402/04 Inactive Activella 1 mg-0.5 mg tablet RxNorm: 1672506 1 Tablet(s) PO QD 08/2802/26/2015 Inactive bupropion HCl SR 100 mg tablet,sustained-release RxNorm: 993 503 1 Tablet(s) PO BID 09/12/2014 03/10/2015 Inactive levothyroxine 75 mcg tablet RxNorm: 996919 1 Tablet(s) PO QD 201412/09/2014 Inactive levothyroxine 75 mcg tablet RxNorm: 596857 1 Tablet(s) PO QD 201409/11/2014 Inactive Celexa 40 mg tablet RxNorm: 777945 1 Tablet(s) PO QD 08/12/201410/08 Inactive Xanax 1 mg tablet RxNorm: 474203 1-2 Tablet(s) PO QHS 08/12/201409/28 Inactive Claritin-D 24 Hour 10 mg-240 mg tablet,extended release RxNo rm: 2307240 1 Tablet(s) PO QD 06/13/2014 09/10/2014 Inactive cyclobenzaprine 10 mg tablet RxNorm: 340978 1 Tablet(s) PO TID prn spasm 06/12/2014 02/26/2015 Inactive Xanax 1 mg tablet RxNorm: 859135 1-2 Tablet(s) PO QHS 05/09/201406/28 Inactive levothyroxine 75 mcg tablet RxNorm: 456574 1 Tablet(s) PO QD 201407/08/2014 Inactive cephalexin 500 mg capsule RxNorm: 395048 1 Capsule(s) PO QOD 201402/26/2015 Inactive simvastatin 10 mg tablet RxNorm: 893224 1 Tablet(s) PO QHS 04/10/19 15 06/12/2014 Inactive Xanax 1 mg tablet RxNorm: 737104 1-2 Tablet(s) PO QHS 04/10/201404/28 Inactive levothyroxine 75 mcg tablet RxNorm: 915736 1 Tablet(s) PO QD 201404/09/2014 Inactive levothyroxine 75 mcg capsule RxNorm: 630236 1 Capsule(s) PO QD 03/3104/10/2014 Inactive Activella 1 mg-0.5 mg tablet RxNorm: 4676756 1 Tablet(s) PO QD 03/0109/11/2014 Inactive bupropion HCl SR 100 mg tablet,sustained-release RxNorm: 993 503 1 Tablet(s) PO BID 03/04/2014 08/30/2014 Inactive Activella 1 mg-0.5 mg tablet RxNorm: 6616535 1 Tablet(s) PO QD 01/2803/18/2014 Inactive levothyroxine 75 mcg capsule RxNorm: 195052 1 Capsule(s) PO QD 12/2904/08/2014 Inactive simvastatin 10 mg tablet RxNorm: 674959 1 Tablet(s) PO QHS 01/10/20 14 04/08/2014 Inactive cyclobenzaprine 10 mg tablet RxNorm: 738394 1 Tablet(s) PO TID prn spasm 01/09/2014 04/08/2014 Inactive Cipro 500 mg tablet RxNorm: 849160 1 Tablet(s) PO BID 12/25/201304/2013 Inactive Cipro 500 mg tablet RxNorm: 707165 1 Tablet(s) PO BID 12/25/201311/29 Inactive bupropion HCl SR 100 mg tablet,sustained-release RxNorm: 993 503 1 Tablet(s) PO QAM 12/11/2013 03/03/2014 Inactive cephalexin 500 mg capsule RxNorm: 796133 1 Capsule(s) PO QOD 201304/09/2014 Inactive Xanax 1 mg tablet RxNorm: 626103 1-2 Tablet(s) PO QHS 10/15/201310/29 Inactive simvastatin 10 mg tablet RxNorm: 247937 1 Tablet(s) PO QHS 10/11/19 14 01/07/2014 Inactive Celexa 40 mg tablet RxNorm: 704230 Tablet(s) PO TAKE 1 TABLET BY MOUTH ONCE DAILY. 09/18/2013 09/17/2013 Inactive Xanax 1 mg tablet RxNorm: 103952 1-2 Tablet(s) PO QHS 08/13/201308/28 Inactive simvastatin 10 mg tablet RxNorm: 700398 1 Tablet(s) PO QHS 07/12/19 14 10/08/2013 Inactive bupropion HCl SR 100 mg tablet,sustained-release RxNorm: 993 503 1 Tablet(s) PO QAM 05/22/2013 11/17/2013 Inactive Pamelor 10 mg capsule RxNorm: 804256 1 Capsule(s) PO QHS for PLATA /sleep 05/22/2013 06/04/2013 Inactive Xanax 1 mg tablet RxNorm: 323853 1-2 Tablet(s) PO QHS 05/15/201305/29 Inactive Pamelor 10 mg capsule RxNorm: 738123 1 Capsule(s) PO QHS for PLATA /sleep 05/15/2013 05/21/2013 Inactive Xanax 1 mg tablet RxNorm: 875434 1 Tablet(s) PO QHS 04/27/20132013 Inactive Zovirax 800 mg tablet RxNorm: 528266 1 Tablet(s) PO TID 04/05/2013 Inactive Xanax 1 mg tablet RxNorm: 276776 1 Tablet(s) PO QHS 04/03/2013 No Sto p Date Active bupropion HCl SR 100 mg tablet,sustained-release RxNorm: 993 503 1 Tablet(s) PO QAM 03/26/2013 05/21/2013 Inactive bupropion HCl SR 100 mg tablet,sustained-release RxNorm: 993 503 1 Tablet(s) PO QAM 03/06/2013 03/25/2013 Inactive Pamelor 10 mg capsule RxNorm: 967639 1 Capsule(s) PO QHS for PLATA /sleep 02/14/2013 05/14/2013 Inactive levothyroxine 75 mcg capsule RxNorm: 620488 1 Capsule(s) PO QD 12/2901/08/2014 Inactive simvastatin 10 mg tablet RxNorm: 810466 1 Tablet(s) PO QHS TAKE 1 TABLET BY MOUTH ONCE DAILY AT BEDTIME. 01/15/2013 07/10/2013 Inactive cyclobenzaprine 10 mg tablet RxNorm: 217043 1 Tablet(s) PO TID prn spasm 12/25/2012 06/22/2013 Inactive Pamelor 10 mg capsule RxNorm: 820253 1 Capsule(s) PO QHS for PLATA /sleep 11/29/2012 02/14/2013 Inactive Celexa 40 mg tablet RxNorm: 651086 Tablet(s) PO TAKE 1 TABLET BY MOUTH ONCE DAILY. 10/11/2012 09/17/2013 Inactive simvastatin 10 mg tablet RxNorm: 815830 Tablet(s) PO TA KE 1 TABLET BY MOUTH ONCE DAILY AT BEDTIME. 10/11/2012 01/14/2013 Inactive simvastatin 10 mg tablet RxNorm: 786803 1 Tablet(s) PO QD 07/11/2012 10/08/2012 Inactive simvastatin 10 mg tablet RxNorm: 342382 1 Tablet(s) PO QD 04/14/2012 07/11/2012 Inactive simvastatin 10 mg tablet RxNorm: 269203 1 Tablet(s) PO QD 04/14/2012 04/13/2012 Inactive Celexa 40 mg tablet RxNorm: 999070 1 Tablet(s) PO QD 03/15/201209/10 Inactive cyclobenzaprine 10 mg tablet RxNorm: 588524 1 Tablet(s) PO TID prn spasm 02/02/2012 02/01/2012 Inactive cyclobenzaprine 10 mg tablet RxNorm: 509500 1 Tablet(s) PO TID prn spasm 02/02/2012 07/30/2012 Inactive Diflucan 100 mg Tab RxNorm: 125342 1 Tablet(s) PO QD 08/17/201108/22 Inactive Cipro 250 mg Tab RxNorm: 605645 1 Tablet(s) PO QD 08/17/2011 10/15/19 Inactive Levaquin 500 mg Tab RxNorm: 068262 1 Tablet(s) PO QD 08/17/201108/22 Inactive Pyridium 200 mg Tab RxNorm: 3970037 1 Tablet(s) PO TID 10/14/2010 Inactive may turn urine orange-red color. Cipro 500 mg Tab RxNorm: 317575 1 Tablet(s) PO BID 10/14/2010 011 Inactive levothyroxine 75 mcg capsule RxNorm: 581100 1 Capsule(s) PO QD 12/3001/14/2011 Inactive loratadine 10 mg tablet RxNorm: 431679 1 Tablet(s) PO QHS No Start Da te Active Vitamin D3 5,000 unit tablet RxNorm: 817880 1 Tablet(s) PO QD No Star t Date Active Nasacort 55 mcg nasal spray aerosol RxNorm: 7902653 2 Sp ray NASAL each nostril QHS No Start Date Active cyclobenzaprine 10 mg tablet RxNorm: 193661 1 Tablet(s) PO TID as needed No Start Date 11/22/2018 Inactive Vitamin D2 1,000 unit capsule RxNorm: 037208 3 Capsule(s) PO QD No Start Date 11/16/2017 Inactive diclofenac sodium 75 mg tablet,delayed release RxNorm: 01838 6 1 Tablet(s) PO BID No Start Date 03/16/2016 Inactive cephalexin 500 mg capsule RxNorm: 769194 1 Capsule(s) PO QOD No Sta rt Date 12/04/2013 Inactive cyclobenzaprine 10 mg tablet RxNorm: 638866 1 Tablet(s) PO QHS No S tart Date 02/01/2012 Inactive hydrocodone 5 mg-acetaminophen 500 mg tablet RxNorm: 548008 1 -2 Tablet(s) PO Q6H as needed No Start Date 08/09/2018 Inactive etodolac 400 mg tablet RxNorm: 296277 1 Tablet(s) PO TID No Start D ate 09/17/2018 Inactive Xanax 1 mg tablet RxNorm: 766254 1 Tablet(s) PO QHS No Start Date 04/2013 Inactive Vitamin D3 1,000 unit capsule RxNorm: 038894 1 Capsule(s) PO QD No Start Date 06/12/2014 Inactive estradiol 2 mg tablet RxNorm: 226915 1/2 Tablet(s) PO QD No Start D ate 03/05/2013 Inactive Celexa 40 mg tablet RxNorm: 166337 1 Tablet(s) PO QD No Start Date Inactive Activella 1 mg-0.5 mg tablet RxNorm: 2927864 1 Tablet(s) PO QD No S tart Date 07/10/2012 Inactive medroxyprogesterone 5 mg tablet RxNorm: 2376524 1/2 Tablet(s) PO QD No Start Date 03/05/2013 Inactive levothyroxine 88 mcg tablet RxNorm: 742636 1 Tablet(s) PO QD No Sta rt Date 02/26/2015 Inactive Keflex 500 mg capsule RxNorm: 074372 1 Capsule(s) PO PRN No Start D ate 08/16/2011 Inactive Activella 1 mg-0.5 mg tablet RxNorm: 2831001 1 Tablet(s) PO QHS No Start Date 03/27/2017 Inactive Activella 1 mg-0.5 mg tablet RxNorm: 4374664 1 Tablet(s) PO QD No S tart Date 02/06/2014 Inactive Flexeril 10 mg Tab RxNorm: 142876 1 Tablet(s) PO TID No Start Date Inactive prn spasm simvastatin 10 mg tablet RxNorm: 407687 1 Tablet(s) PO QD No Start Date 04/13/2012 Inactive Medication Administered No Medication Administered data Immunizations Vaccine Codes Date Status Influenza CVX: 135 01/16/2019 Complete Pneumococcal CVX: 133 01/16/2019 Complete Results No Results data Procedures Procedure Codes Date FLU VACC PRSV FREE INC ANTIG 65 AND OLDER CPT-4: 75600 01/16/2019 FLU VACC PRSV FREE INC ANTIG 65 AND OLDER CPT-4: 30445 01/16/2019 PNEUMOCOCCAL VACC 13 NARESH IM CPT-4: 35511 01/16/2019 SKIN FUNGI CULTURE CPT-4: 67979 01/16/2019 IMMUNIZATION ADMIN CPT-4: 74804 01/16/2019 IMMUNIZATION ADMIN EACH ADD CPT-4: 28734 01/16/2019 THER/PROPH/DIAG INJ SC/IM CPT-4: 99884 01/17/2018 KETOROLAC TROMETHAMINE INJ CPT-4: J1885 01/17/2018 THER/PROPH/DIAG INJ SC/IM CPT-4: 37862 01/17/2018 PROMETHAZINE HCL INJECTION CPT-4: J2550 01/17/2018 URINALYSIS NONAUTO W/O SCOPE CPT-4: 71839 12/29/2017 URINE CULTURE/ COLONY COUNT CPT-4: 25707 12/29/2017 THER/PROPH/DIAG INJ SC/IM CPT-4: 69129 11/30/2017 TRIAMCINOLONE ACET INJ NOS CPT-4: J3301 11/30/2017 DEXAMETHASONE SODIUM PHOS CPT-4: J1100 11/30/2017 CEFTRIAXONE SODIUM INJECTION CPT-4: J0696 11/29/2017 THER/PROPH/DIAG INJ SC/IM CPT-4: 44152 11/29/2017 CEFTRIAXONE SODIUM INJECTION CPT-4: J0696 11/28/2017 THER/PROPH/DIAG INJ SC/IM CPT-4: 09941 11/28/2017 URINALYSIS NONAUTO W/O SCOPE CPT-4: 31247 10/10/2017 THER/PROPH/DIAG INJ SC/IM CPT-4: 33924 10/10/2017 TRIAMCINOLONE ACET INJ NOS CPT-4: J3301 10/10/2017 DEXAMETHASONE SODIUM PHOS CPT-4: J1100 10/10/2017 CEFTRIAXONE SODIUM INJECTION CPT-4: J0696 10/10/2017 THER/PROPH/DIAG INJ SC/IM CPT-4: 98328 10/10/2017 URINE CULTURE/ COLONY COUNT CPT-4: 40549 10/10/2017 THER/PROPH/DIAG INJ SC/IM CPT-4: 61387 11/02/2016 KETOROLAC TROMETHAMINE INJ CPT-4: J1885 11/02/2016 THER/PROPH/DIAG INJ SC/IM CPT-4: 14093 06/15/2016 TRIAMCINOLONE ACET INJ NOS CPT-4: J3301 06/15/2016 DEXAMETHASONE SODIUM PHOS CPT-4: J1100 06/15/2016 THER/PROPH/DIAG INJ SC/IM CPT-4: 94848 04/09/2016 KETOROLAC TROMETHAMINE INJ CPT-4: J1885 04/09/2016 PROMETHAZINE HCL INJECTION CPT-4: J2550 04/09/2016 EXC TR-EXT B9+ERASMO 0.5 CM< CPT-4: 95899 06/12/2015 URINALYSIS NONAUTO W/O SCOPE CPT-4: 08604 05/05/2015 URINE CULTURE/ COLONY COUNT CPT-4: 52848 05/05/2015 URINALYSIS NONAUTO W/O SCOPE CPT-4: 45504 03/24/2015 URINALYSIS NONAUTO W/O SCOPE CPT-4: 19186 02/27/2015 URINE CULTURE/ COLONY COUNT CPT-4: 74760 02/27/2015 THER/PROPH/DIAG INJ SC/IM CPT-4: 01776 04/18/2014 KETOROLAC TROMETHAMINE INJ CPT-4: J1885 04/18/2014 THER/PROPH/DIAG INJ SC/IM CPT-4: 41622 06/05/2013 TRIAMCINOLONE ACET INJ NOS CPT-4: J3301 06/05/2013 THER/PROPH/DIAG INJ SC/IM CPT-4: 80848 11/29/2012 KETOROLAC TROMETHAMINE INJ CPT-4: J1885 11/29/2012 URINALYSIS NONAUTO W/O SCOPE CPT-4: 54471 07/11/2012 URINE CULTURE/ COLONY COUNT CPT-4: 07191 07/11/2012 OCCULT BLOOD FECES CPT-4: 61768 02/17/2012 URINALYSIS NONAUTO W/O SCOPE CPT-4: 50622 08/27/2011 URINE CULTURE/ COLONY COUNT CPT-4: 57025 08/27/2011 URINALYSIS NONAUTO W/O SCOPE CPT-4: 98802 08/17/2011 URINE CULTURE/ COLONY COUNT CPT-4: 17146 08/17/2011 URINALYSIS NONAUTO W/O SCOPE CPT-4: 32839 12/28/2010 URINE CULTURE/ COLONY COUNT CPT-4: 26899 12/28/2010 URINALYSIS NONAUTO W/O SCOPE CPT-4: 36342 11/09/2010 URINE CULTURE/ COLONY COUNT CPT-4: 18653 11/09/2010 URINALYSIS NONAUTO W/O SCOPE CPT-4: 24696 10/29/2010 URINE CULTURE/ COLONY COUNT CPT-4: 92145 10/29/2010 URINE CULTURE/ COLONY COUNT CPT-4: 46942 10/14/2010 URINALYSIS NONAUTO W/O SCOPE CPT-4: 11210 10/14/2010 Vital Signs Date Vital 04/10/2019 Blood [...] 1: 122/74 Code: 8480-6 BMI: 22.0 Code: 71338-5 Heart Rate 1: 72 bpm Height: 5'3" [...] 1: 126/72 Code: 8480-6 BMI: 22.7 Code: 15166-6 Heart Rate 1: 72 bpm Height: 5'3" [...] 1: 112/70 Code: 8480-6 BMI: 22.0 Code: 46692-2 Heart Rate 1: 80 bpm Height: 5'3" [...] 1: 122/64 Code: 8480-6 BMI: 21.4 Code: 01503-9 Heart Rate 1: 88 bpm Height: 5'3" Respiratory Rate: 22 bpm SpO2: 96% Tempera ture: 36.8 (C) / 98.2 (F) Weight: 121 lbs 06/22/2017 Blood Pressure 1: 124/78 Code: 8480-6 BMI: 21.6 Code: 01429-1 Heart Rate 1: 76 bpm Height: 5'3" Respiratory Rate: 20 bpm Temperature: 36 .8 (C) / 98.3 (F) Weight: 122 lbs 03/28/2017 Blood Pressure 1: 92/60 Code: 8480-6 BMI: 20.4 C ode: 84972-5 Heart Rate 1: 72 bpm Height: 5'3" Respiratory Rate: 20 bpm Temperature: 36 .9 (C) / 98.4 (F) Weight: 115 lbs 02/16/2017 Blood Pressure 1: 106/70 Code: 8480-6 BMI: 21.3 Code: 58933-7 Heart Rate 1: 82 bpm Height: 5'3" Respiratory Rate: 22 bpm SpO2: 97% Tempera ture: 36.1 (C) / 97.0 (F) Weight: 120 lbs 09/06/2016 Blood Pressure 1: 118/64 Code: 8480-6 BMI: 22.7 Code: 92606-8 Heart Rate 1: 78 bpm Height: 5'3" Respiratory Rate: 20 bpm SpO2: 98% Tempera ture: 36.2 (C) / 97.2 (F) Weight: 128 lbs 08/16/2016 Blood Pressure 1: 118/78 Code: 8480-6 BMI: 22.1 Code: 81959-4 Heart Rate 1: 78 bpm Height: 5'3" Respiratory Rate: 20 bpm SpO2: 97% Tempera ture: 36.2 (C) / 97.1 (F) Weight: 125 lbs 07/19/2016 Blood Pressure 1: 116/68 Code: 8480-6 BMI: 22.5 Code: 49777-7 Heart Rate 1: 76 bpm Height: 5'3" Respiratory Rate: 20 bpm Temperature: 36 .8 (C) / 98.2 (F) Weight: 127 lbs 07/06/2016 Blood Pressure 1: 106/70 Code: 8480-6 BMI: 22.5 Code: 97347-0 Heart Rate 1: 72 bpm Height: 5'3" Respiratory Rate: 20 bpm SpO2: 97% Tempera ture: 36.8 (C) / 98.2 (F) Weight: 127 lbs 06/15/2016 Blood Pressure 1: 136/76 Code: 8480-6 BMI: 22.9 Code: 32963-4 Heart Rate 1: 74 bpm Height: 5'3" Respiratory Rate: 18 bpm SpO2: 98% Tempera ture: 36.4 (C) / 97.6 (F) Weight: 129 lbs 04/09/2016 Blood Pressure 1: 124/78 Code: 8480-6 BMI: 23.0 Code: 00464-3 Heart Rate 1: 86 bpm Height: 5'3" Respiratory Rate: 20 bpm SpO2: 96% Tempera ture: 36.5 (C) / 97.7 (F) Weight: 130 lbs 03/17/2016 Blood Pressure 1: 116/74 Code: 8480-6 BMI: 23.4 Code: 09201-7 Heart Rate 1: 84 bpm Height: 5'3" Respiratory Rate: 20 bpm SpO2: 97% Tempera ture: 36.8 (C) / 98.3 (F) Weight: 132 lbs 11/13/2015 Blood Pressure 1: 124/78 Code: 8480-6 BMI: 23.4 Code: 23468-6 Heart Rate 1: 88 bpm Height: 5'3" Respiratory Rate: 24 bpm SpO2: 98% Tempera ture: 36.8 (C) / 98.2 (F) Weight: 132 lbs 06/12/2015 Blood Pressure 1: 126/78 Code: 8480-6 BMI: 23.6 Code: 58197-7 Heart Rate 1: 80 bpm Height: 5'3" Respiratory Rate: 20 bpm Temperature: 36 .9 (C) / 98.4 (F) Weight: 133 lbs 04/22/2015 Blood Pressure 1: 126/68 Code: 8480-6 BMI: 23.6 Code: 17767-6 Heart Rate 1: 80 bpm Height: 5'3" Respiratory Rate: 20 bpm Temperature: 36 .6 (C) / 97.9 (F) Weight: 133 lbs 03/24/2015 Blood Pressure 1: 116/66 Code: 8480-6 BMI: 22.9 Code: 26984-6 Heart Rate 1: 74 bpm Height: 5'3" Respiratory Rate: 20 bpm Temperature: 36 .4 (C) / 97.6 (F) Weight: 129 lbs 02/27/2015 Blood Pressure 1: 106/64 Code: 8480-6 BMI: 22.7 Code: 62663-2 Heart Rate 1: 74 bpm Height: 5'3" Respiratory Rate: 20 bpm Temperature: 36 .8 (C) / 98.2 (F) Weight: 128 lbs 06/13/2014 Blood Pressure 1: 104/66 Code: 8480-6 BMI: 22.7 Code: 21319-5 Heart Rate 1: 84 bpm Height: 5'3" Respiratory Rate: 20 bpm Temperature: 37 .0 (C) / 98.6 (F) Weight: 128 lbs 04/18/2014 Blood Pressure 1: 112/62 Code: 8480-6 BMI: 22.0 Code: 09528-0 Heart Rate 1: 82 bpm Height: 5'3" Respiratory Rate: 18 bpm Temperature: 36 .4 (C) / 97.6 (F) Weight: 124 lbs 12/05/2013 Blood Pressure 1: 106/70 Code: 8480-6 BMI: 23.7 Code: 29412-9 Heart Rate 1: 84 bpm Height: 5'3" [...] 1: 126/88 Code: 8480-6 BMI: 22.3 Code: 59023-8 Heart Rate 1: 96 bpm Height: 5'4" Respiratory Rate: 20 bpm Temperature: 37 .7 (C) / 99.9 (F) Weight: 130 lbs 11/29/2012 Blood Pressure 1: 122/76 Code: 8480-6 BMI: 23.0 Code: 49945-6 Heart Rate 1: 84 bpm Height: 5'4" Respiratory Rate: 20 bpm Temperature: 36 .9 (C) / 98.4 (F) Weight: 134 lbs 09/26/2012 Blood Pressure 1: 114/76 Code: 8480-6 BMI: 23.0 Code: 62143-0 Heart Rate 1: 84 bpm Height: 5'4" Respiratory Rate: 20 bpm Temperature: 37 .3 (C) / 99.1 (F) Weight: 134 lbs 07/11/2012 Blood Pressure 1: 126/78 Code: 8480-6 BMI: 23.7 Code: 06190-0 Heart Rate 1: 76 bpm Height: 5'4" Respiratory Rate: 20 bpm Temperature: 37 .1 (C) / 98.7 (F) Weight: 138 lbs 02/02/2012 Blood Pressure 1: 108/70 Code: 8480-6 BMI: 23.2 Code: 05739-2 Heart Rate 1: 88 bpm Height: 5'4" Respiratory Rate: 20 bpm Temperature: 36 .4 (C) / 97.6 (F) Weight: 135 lbs 08/17/2011 Blood Pressure 1: 108/70 Code: 8480-6 BMI: 23.2 Code: 75529-1 Heart Rate 1: 72 bpm Height: 5'4" Respiratory Rate: 20 bpm Temperature: 36 .8 (C) / 98.2 (F) Weight: 135 lbs 10/14/2010 Blood Pressure 1: 120/72 Code: 8480-6 BMI: 23.4 Code: 42958-2 Heart Rate 1: 78 bpm Height: 5'3" [...] Diagnosis: Incisional hernia[ICD10: K43.2] Alexandra CARROLL DO [facility] CPT-4: 81100 04/10/2019 ([id number]) OFFICE/OUTPATIENT VISIT EST Diagnosis: Insomnia[ICD10: G47.00] Diagnosis: Thrombocytosis[ICD10: D47.3] Alexandra CARROLL [facility] CPT-4: 21802 02/14/2019 ([id number]) OFFICE/OUTPATIENT VISIT EST Diagnosis: Small bowel obstruction[ICD10: K56.609] Diagnosis: FLU VACCINE[ICD10: Z23] Diagnosis: PNEUMOCOCCAL VACCINE[ICD10: Z23] Diagnosis: Onychomycosis[ICD10: B35.1] Alexandra KUNZ [facility] CPT-4: 70926 01/16/2019 ([id number]) OFFICE/OUTPATIENT VISIT EST Diagnosis: Diarrhea, unspecified[ICD10: R19.7] Diagnosis: Radiculopathy, lumbosacral region[ICD10: M54.17] Alexandra CARROLL [facility] CPT-4: 79538 09/18/2018 OFFICE/OUTPATIENT VISIT EST Diagnosis: Other intervertebral disc degeneration, lumbar region[ICD10: M51.36] Diagnosis: Sacroiliitis, not elsewhere classified[ICD10: M46.1] Diagnosis: Obstructive sleep apnea (adult) (pediatric)[ICD10: G47.33] [facility] 63478 08/10/2018 ([id number]) OFFICE/OUTPATIENT VISIT EST Diagnosis: Fracture of unspecified part of left clavicle, subsequent encounter for fracture with routine healing[ICD10: S42.002D] Diagnosis: Cervicalgia[ICD10: M54.2] Diagnosis: Radiculopathy, lumbosacral region[ICD10: M54.17] Alexandra CARROLL [facility] CPT-4: 14826 03/27/2018 ([id number]) OFFICE/OUTPATIENT VISIT EST Diagnosis: Fracture of unspecified part of left clavicle, subsequent encounter for fracture with routine healing[ICD10: S42.002D] Diagnosis: Other intervertebral disc degeneration, lumbar region[ICD10: M51.36] Diagnosis: Unspecified fracture of first thoracic vertebra, subsequent encounter for fracture with routine healing[ICD10: S22.019D] Diagnosis: Unspecified fracture of second thoracic vertebra, subsequent encounter for fracture with routine healing[ICD10: S22.029D] Alexandra CARROLL [facility] [employer] [facility] CPT-4: 79216 02/23/2018 ([id number]) OFFICE/OUTPATIENT VISIT EST Diagnosis: Fracture of unspecified part of left clavicle, subsequent encounter for fracture with routine healing[ICD10: S42.002D] Diagnosis: Unspecified fracture of first thoracic vertebra, subsequent encounter for fracture with routine healing[ICD10: S22.019D] Diagnosis: Unspecified fracture of second thoracic vertebra, subsequent encounter for fracture with routine healing[ICD10: S22.029D] Alexandra CARROLL [facility] CPT-4: 09644 01/24/2018 ([id number]) OFFICE/OUTPATIENT VISIT EST Diagnosis: Migraine, unspecified, not intractable, without status migrainosus[ICD10: G43.909] Alexandra BURLESON [facility] CPT - 4: 86559 01/17/2018 ([id number]) OFFICE/OUTPATIENT VISIT EST Diagnosis: Hematuria, unspecified[ICD10: R31.9] Diagnosis: Other intervertebral disc degeneration, lumbar region[ICD10: M51.36] Diagnosis: Retention of urine, unspecified[ICD10: R33.9] Alexandra CARROLL [facility] CPT-4: 05636 12/29/2017 OFFICE/OUTPATIENT VISIT EST Diagnosis: Fracture of [...] Diagnosis: Low back pain[ICD10: M54.5] Alexandra KUNZ [facility] CPT-4: 80688 12/06/2017 ([id number]) OFFICE/OUTPATIENT VISIT EST Diagnosis: Cellulitis of right upper limb[ICD10: L03.113] Diagnosis: Allergy status to other antibiotic agents status[ICD10: Z88.1] Vandana CARROLL DO [employer] CPT-4: 24850 12/01/2017 ([id number]) OFFICE/OUTPATIENT VISIT EST Diagnosis: Cellulitis of right upper limb[ICD10: L03.113] Diagnosis: Allergy status to other antibiotic agents status[ICD10: Z88.1] Vandana CARROLL DO [facility] CPT-4: 10284 11/30/2017 ([id number]) OFFICE/OUTPATIENT VISIT EST Diagnosis: Cellulitis of right upper limb[ICD10: L03.113] Vandana CARROLL DO [facility] CPT-4: 91548 11/29/2017 ([id number]) OFFICE/OUTPATIENT VISIT EST Diagnosis: Cellulitis of right upper limb[ICD10: L03.113] Vandana CARROLL DO [employer] CPT-4: 26193 11/28/2017 ([id number]) OFFICE/OUTPATIENT VISIT EST Diagnosis: Other intervertebral disc degeneration, lumbar region[ICD10: M51.36] Diagnosis: Other retention of urine[ICD10: R33.8] Diagnosis: Primary insomnia[ICD10: F51.01] Diagnosis: Other spondylosis, site unspecified[ICD10: M47.899] Alexandra CARROLL [employer] CPT-4: 76300 11/17/2017 ([id number]) OFFICE/OUTPATIENT VISIT EST Diagnosis: Radiculopathy, lumbosacral region[ICD10: M54.17] Diagnosis: Other retention of urine[ICD10: R33.8] Diagnosis: Urinary tract infection, site not specified[ICD10: N39.0] Vandana CARROLL DO [employer] CPT-4: 08598 10/10/2017 ([id number]) PREV VISIT EST AGE 40-64 Diagnosis: Encounter for general adult medical examination without abnormal findings[ICD10: Z00.00] Diagnosis: Other intervertebral disc degeneration, lumbar region[ICD10: M51.36] Diagnosis: Hypothyroidism, unspecified[ICD10: E03.9] Diagnosis: Mixed hyperlipidemia[ICD10: E78.2] Alexandra CARROLL DO [facility] CPT-4: 85224 06/22/2017 ([id number]) OFFICE/OUTPATIENT VISIT EST Diagnosis: URI, ACUTE[ICD10: J06.9] Alexandra ROMAN [facility] CPT-4: 03852 03/28/2017 OFFICE/OUTPATIENT VISIT EST Diagnosis: Acute sinusitis, unspecified[ICD10: J01.90] Vandana CARROLL [facility] CPT-4: 50015 02/16/2017 ([id number]) OFFICE/OUTPATIENT VISIT EST Diagnosis: Migraine, unspecified, not intractable, without status migrainosus[ICD10: G43.909] Alexandra CARROLL DO [facility] CPT - 4: 81881 11/02/2016 ([id number]) OFFICE/OUTPATIENT VISIT EST Diagnosis: Pain in thoracic spine[ICD10: M54.6] Diagnosis: Chondrocostal junction syndrome [Tietze][ICD10: M94.0] Aelxandra CARROLL [facility] CPT-4: 28891 09/06/2016 OFFICE/OUTPATIENT VISIT EST Diagnosis: Acute sinusitis, unspecified[ICD10: J01.90] Vidya Manuel ALEXANDRA CARROLL [facility] CPT-4: 21987 08/16/2016 ([id number]) OFFICE/OUTPATIENT VISIT EST Diagnosis: Primary insomnia[ICD10: F51.01] Diagnosis: Cramp and spasm[ICD10: R25.2] Diagnosis: Major depressive disorder, single episode, mild[ICD10: F32.0] Alexandra CARROLL [facility] CPT-4: 84180 07/19/2016 ([id number]) OFFICE/OUTPATIENT VISIT EST Diagnosis: Obstructive sleep apnea (adult) (pediatric)[ICD10: G47.33] Diagnosis: Other fatigue[ICD10: R53.83] Diagnosis: Allergic rhinitis due to pollen[ICD10: J30.1] Diagnosis: Headache[ICD10: R51] Alexandra CARROLL [facility] CPT-4: 89434 07/06/2016 ([id number]) OFFICE/OUTPATIENT VISIT EST Diagnosis: Acute recurrent sinusitis, unspecified[ICD10: J01.91] Diagnosis: Allergic rhinitis due to pollen[ICD10: J30.1] Alexandra Danelawandavioletta ALEXANDRA MacyAri DEANNE SALGUERO [facility] CPT-4: 25392 06/15/2016 ([id number]) OFFICE/OUTPATIENT VISIT EST Diagnosis: Migraine, unspecified, not intractable, without status migrainosus[ICD10: G43.909] Diagnosis: Allergic rhinitis, unspecified[ICD10: J30.9] Nae MARINQUELINE MacyAri DEANNE [facility] CPT-4: 64107 04/09/2016 ([id number]) OFFICE/OUTPATIENT VISIT EST Diagnosis: Hypothyroidism, unspecified[ICD10: E03.9] Diagnosis: Other fatigue[ICD10: R53.83] Diagnosis: Mixed hyperlipidemia[ICD10: E78.2] Diagnosis: Major depressive disorder, single episode, mild[ICD10: F32.0] Alexandra Danejames MARINALEXANDRA MacyAri DEANNE [facility] CPT-4: 00320 03/17/2016 ([id number]) OFFICE/OUTPATIENT VISIT EST Diagnosis: Insomnia, unspecified[ICD10: G47.00] Diagnosis: Encounter for therapeutic drug level monitoring[ICD10: Z51.81] Nae Mckay ALEXANDRA MacyAri DEANNE [facility] CPT-4: 35545 11/13/2015 ([id number]) OFFICE/OUTPATIENT VISIT EST Diagnosis: Hematuria, unspecified[ICD10: R31.9] Alexandra Crawford DEANNE [facility] CPT-4: 92822 05/05/2015 ([id number]) OFFICE/OUTPATIENT VISIT EST Diagnosis: Other intervertebral disc degeneration, lumbar region[ICD10: M51.36] Diagnosis: Radiculopathy, lumbosacral region[ICD10: M54.17] Alexandra FORDE MacyAri DEANNE [facility] CPT-4: 02732 04/22/2015 ([id number]) OFFICE/OUTPATIENT VISIT EST Diagnosis: Low back pain[ICD10: M54.5] Diagnosis: Recurrent and persistent hematuria with unspecified morphologic changes[ICD10: N02.9] Alexandra FORDE Ty CARROLL [facility] CPT-4: 85002 03/24/2015 ([id number]) OFFICE/OUTPATIENT VISIT EST Diagnosis: Acute sinusitis, unspecified[ICD10: J01.90] Diagnosis: Headache[ICD10: R51] Diagnosis: Retention of urine, unspecified[ICD10: R33.9] Diagnosis: Hypothyroidism, unspecified[ICD10: E03.9] Alexandra FORDE MacyAri DEANNE [facility] CPT-4: 90052 02/27/2015 ([id number]) PREV VISIT EST AGE 40-64 Diagnosis: ROUTINE MEDICAL EXAM[ICD9: V70.0] Diagnosis: HYPOTHYROIDISM[ICD9: 244.9] Diagnosis: HYPERLIPIDEMIA NEC/NOS[ICD9: 272.4] Alexandra CORDOBA Ty CARROLL [facility] CPT-4: 26080 06/13/2014 ([id number]) OFFICE/OUTPATIENT VISIT EST Diagnosis: CEPHALGIA[ICD9: 784.0] Diagnosis: Nausea[ICD9: 787.02] Shalini VanMarguerite ALEXANDRA Ty CARROLL [facility] CPT-4: 19937 04/18/2014 ([id number]) OFFICE/OUTPATIENT VISIT EST Diagnosis: INSOMNIA NOS[ICD9: 780.52] Diagnosis: Complicated grieving[ICD9: 309.0] Alexandra Louise Ty CARROLL [facility] CPT-4: 82694 12/05/2013 ([id number]) OFFICE/OUTPATIENT VISIT EST Diagnosis: Muscle twitch[ICD9: 781.0] Diagnosis: ALLERGIC RHINITIS[ICD9: 477.9] Alexandra FORDE Macy Ari DEANNE [facility] CPT-4: 42589 06/05/2013 ([id number]) OFFICE/OUTPATIENT VISIT EST Diagnosis: DEPRESSIVE DISORDER NEC[ICD9: 311] Alexandra QUINTERO Ty [facility] CPT-4: 92945 05/22/2013 OFFICE/OUTPATIENT VISIT EST Diagnosis: Shingles[ICD9: 053.9] Alex[facility]: 65909 04/05/2013 ([id number]) OFFICE/OUTPATIENT VISIT EST Diagnosis: DEPRESSIVE DISORDER NEC[ICD9: 311] Alexandra SHAFFERFELIPE QUINTERO SAri CARROLL [facility] CPT-4: 38902 03/26/2013 ([id number]) OFFICE/OUTPATIENT VISIT EST Diagnosis: Complicated grieving[ICD9: 309.0] Alexandra OROZCO Dani JACOBONDVIOLETTA [facility] CPT-4: 57737 03/06/2013 ([id number]) OFFICE/OUTPATIENT VISIT EST Diagnosis: CEPHALGIA, TENSION[ICD9: 307.81] Diagnosis: MIGRAINE NOS/NOT INTRCBL[ICD9: 346.90] Diagnosis: Cervicalgia[ICD9: 723.1] Alexandra FORDE MacyAri GIULIA IZABELLA [facility] CPT-4: 56760 11/29/2012 ([id number]) OFFICE/OUTPATIENT VISIT EST Diagnosis: Jaw pain[ICD9: 784.92] Diagnosis: Shoulder pain[ICD9: 719.41] Diagnosis: Family history of premature coronary artery disease[ICD9: V17.3] Alexandra FORDE [facility]Ari [facility]: 39373 09/26/2012 ([id number]) OFFICE/OUTPATIENT VISIT EST Diagnosis: ABDOMINAL PAIN[ICD9: 789.00] Diagnosis: Constipation[ICD9: 564.00] Diagnosis: Hematuria[ICD9: 599.70] Alexandra FORDE MacyAri [facility] CPT-4: 06139 07/11/2012 ([id number]) OFFICE/OUTPATIENT VISIT EST Diagnosis: ANEMIA NOS[ICD9: 285.9] Alexandra FORDE MacyAri [facility] CPT-4: 87803 02/17/2012 ([id number]) PREV VISIT EST AGE 40-64 Diagnosis: ROUTINE MEDICAL EXAM[ICD9: V70.0] Diagnosis: HYPOTHYROIDISM[ICD9: 244.9] Diagnosis: HYPERLIPIDEMIA NEC/NOS[ICD9: 272.4] Diagnosis: Obstructive sleep apnea[ICD9: 327.23] Alexandra ISLAS MacyAri DEANNE [facility] CPT-4: 90541 02/02/2012 ([id number]) OFFICE/OUTPATIENT VISIT EST Diagnosis: URINARY TRACT INFECTION[ICD9: 599.0] Alexandra LOZANO MacyAri DEANNE DO [facility] CPT-4: 88336 08/27/2011 ([id number]) OFFICE/OUTPATIENT VISIT EST Diagnosis: URINARY TRACT INFECTION[ICD9: 599.0] Diagnosis: ACUTE CYSTITIS[ICD9: 595.0] Aelxandra FORDE [facility]ri [facility] CPT-4: 32452 08/17/2011 OFFICE/OUTPATIENT VISIT EST Diagnosis: URINARY TRACT INFECTION[ICD9: 599.0] Steph Bowen EDMUND LOZANO MacyAri DEANNE DO [facility] CPT-4: 66346 10/14/2010 Plan of Care Planned Activity Notes Codes Status Date Visit Diagnosis Plan: Ventral hernia Discussion: See s urgery for repair Discussed signs of incarceration or strangulation then is to report to ER ICD-9 : 553.20 ICD-10 : K43.9 04/10/2019 Care Plan: Referral Order SNOMED-CT : 30 [id number] Pending 04/10/2019 Visit Diagnosis Plan: Insomnia Discussion: [...] D47.3 02/14/2019 Appointment: Alexandra Carroll WPtel: [address] [place], [place] [id number] US FOLLOW UP 02/14/2019 Appointment: Alexandra Carroll WPtel: [address] [place], [place] [id number] US CANCELED 02/12/2019 Visit Diagnosis Plan: Onychomycosis Discussion: Send n ail for culture ICD-9 : 110.1 ICD-10 : B35.1 01/16/2019 Visit Diagnosis Plan: Small bowel obstruction Discussi on: S/P surgery in September with postop complications of wound dehiscence ICD-9 : 560.9 ICD-10 : K56.609 01/16/2019 Appointment: Alexandra Carroll WPtel: [facility] US MEDICATION REVIEW 01/16/2019 Appointment: Alexandra Carrolltel: [address] [place], [place] [phone] US CANCELED 12/12/2018 Visit Diagnosis Plan: Diarrhea, unspecified Discussion : Due for updated colonoscopy ICD-9 : 787.91 ICD-10 : R19.7 09/18/2018 Visit Diagnosis Plan: Radiculopathy, lumbosacral regio n Discussion: Had left SI joint injection by Dr. Baig about 2 weeks ago and has fwup with him ICD-9 : 724.4 ICD-10 : M54.17 09/18/2018 Appointment: Alexandra Carroll WPtel: [address] [place] [address] US PATIENT CONSULT 15 09/18/2018 Care Plan: Referral Order SNOMED-CT : 30 [id number] Pending 09/18/2018 Visit Diagnosis Plan: Other intervertebral [...] : M46.1 08/10/2018 Appointment: Alexandra Carroll WPtel: [facility]8 [facility] US MEDICATION REVIEW 08/10/2018 Care Plan: Referral Order SNOMED-CT : 30 [id number] Pending 08/10/2018 Appointment: Alexandra Carrolltel: [address] [place], [place] [phone] US CANCELED 04/17/2018 Visit Diagnosis Plan: Fracture [...] M54.2 03/27/2018 Appointment: Alexandra Carroll WPtel: [address] [place], [place] [phone] US FOLLOW UP 03/27/2018 Visit Diagnosis Plan: [...] S42.002D 02/23/2018 Appointment: Alexandra Carroll WPtel: [address] [place] [phone] US FOLLOW UP 02/23/2018 Patient Education: gabapentin- [employer] Coupon [phone] [email or web address] Completed 02/23/2018 Visit Diagnosis Plan: Fracture of unspec ified part of left clavicle, subsequent encounter for fracture with routine healing Discussion: Hold on PT and do home stretches Trial of gabapentin Recheck 4 weeks ICD-9 : V54.11 ICD-10 : S42.002D 01/24/2018 Appointment: Alexandra Carroll WPtel: [address] [place] [address] US FOLLOW UP 01/24/2018 Visit Diagnosis Plan: Migraine, unspecif ied, not intractable, without status migrainosus Discussion: Toradol and phenergan given ICD-9 : 346.90 ICD-10 : G43.909 01/17/2018 Appointment: Alexandra Carroll WPtel: [address] [place] [address] ACUTE ILLNESS 01/17/2018 Visit Diagnosis Plan: Retention [...] : M51.36 12/29/2017 Appointment: Alexandra Carroll WPtel: [address] [place] [address] ACUTE ILLNESS 12/29/2017 Care Plan: US EXAM PELVIC COMPLETE LOINC : 45472-2 Pending 12/29/2017 Care Plan: ECHO EXAM OF ABDOMEN LOINC : 96032-3 Pending 12/29/2017 Care Plan: Referral Order SNOMED-CT : 30 [id number] Pending 12/29/2017 Visit Diagnosis Plan: Fracture of unspec ified part of left clavicle, subsequent encounter for fracture with routine healing Discussion: Start PT in another 7-14 days Off work for the rest of this week then may return to part-time work on 12/12/17 Fwup in 4 weeks ICD-9 : V54.11 ICD-10 : S42.002D 12/06/2017 Appointment: Alexandra Carroll WPtel: [address] [place], [place] [phone] FOLLOW UP 12/06/2017 Patient Education: Patient Medication [...] : Z88.1 12/01/2017 Appointment: Vandana Crowe [address] [facility] FOLLOW UP 12/01/2017 Patient Education: Patient Medication [...] : Z88.1 11/30/2017 Appointment: Vandana Crowe [address] [facility] 11/30/2017 Patient Education: Patient Medication Summary Completed [...] : L03.113 11/29/2017 Appointment: Vandana Crowe [address] [facility] FOLLOW UP 11/29/2017 Patient Education: Patient Medication [...] : L03.113 11/28/2017 [facility] [facility] 11/28/2017 Patient Education: Patient [...] M51.36 11/17/2017 Appointment: Alexandra Carroll WPtel: [phone] [facility] MEDICATION REVIEW 11/17/2017 Patient Education: Patient Medication Summary Completed 11/17/2017 Care Plan: Referral Order SNOMED-CT : 30 [id number] Pending 11/17/2017 Patient Education: Patient Medication Summary Completed 10/12/2017 Care Plan: MRI LUMBAR SPINE W/O DYE LOIN C : 66838-8 Pending 10/12/2017 Care Plan: X-RAY EXAM L-S SPINE 2/3 VWS LOINC : 69726-7 Pending 10/11/2017 Visit Diagnosis Plan: Other retention [...] medrol pack to start tomorrow. [facility] with inversion table. instructed patient to go to ED immediately if she develops any incontinence with bowel or bladder. patient verbalized understanding. if no improvement, will need updated MRI and referral to surgeon. ICD-9 : 724.4 ICD-10 : M54.17 10/10/2017 Appointment: Vandana Crowe [address] [place], [place] [id number] ACUTE ILLNESS 10/10/2017 Patient Education: Patient Medication Summary Completed 10/10/2017 Appointment: [facility] [facility] 08/01/2017 Visit Diagnosis Plan: Other intervertebral disc degene ration, lumbar region Discussion: Core strengtheing and inversion table and if worsening will need updated MRI ICD-9 : 722.52 ICD-10 : M51.36 06/22/2017 Visit Diagnosis Plan: Encounter for gene [facility] adult medical examination without abnormal findings Discussion: Lab dis ussed Follow Up: 6 months ICD-9 : V70.0 ICD-10 : Z00.00 06/22/2017 Appointment: Alexandra Carroll WPtel: [phone] Annual Well Visit 06/22/2017 Patient Education: Patient Medication Summary Completed 06/22/2017 Patient Education: Patient Medication Summary Completed 06/16/2017 Care Plan: COMPREH[place] METABOLIC PANEL [place] : 65037-5 Pending 06/16/2017 Care Plan: ASSAY THYROID STIM HORMONE Pen ding 06/16/2017 Care Plan: ASSAY OF FREE THYROXINE Pendin g 06/16/2017 Care Plan: LIPID PANEL LOINC : 96727-8 Pending 06/16/2017 Care Plan: CBC Pending 06/16/2017 [...] J06.9 03/28/2017 Appointment: Alexandra Carroll WPtel: [phone] [facility] ACUTE ILLNESS 03/28/2017 Patient Education: Patient Medication Summary Completed 03/28/2017 Visit Diagnosis Plan: Acute sinusitis, unspecified Dis cussion: cefdinir and medrol dose pack prescribed to be taken as directed. tylenol/ibuprofen as needed. educated on importance of taking singulair or zyrtec daily to prevent worsening symptoms. keep hydrated. ICD-9 : 461.9 ICD-10 : J01.90 02/16/2017 Appointment: Vandana Crowe [address] [place] [address] ACUTE ILLNESS 02/16/2017 Patient Education: Patient Medication Summary Completed 02/16/2017 Appointment: Alexandra Carroll WPtel: [address] [place] [address] US INJECTION 11/02/2016 Patient Education: Patient Medication Summary Completed 11/02/2016 Visit Diagnosis Plan: Pain in thoracic spine Discussio n: Increase flexeril to 10mg po BID Add Mobic 15mg po daily Towel stretch May see chiropractor to adjust ribs Notify if persists or worsening ICD-9 : 724.1 ICD-10 : M54.6 09/06/2016 Appointment: Alexandra Carroll WPtel: [address] [place] [address] ACUTE ILLNESS 09/06/2016 Patient Education: Patient Medication Summary Completed 09/06/2016 Visit Plan: Due to hx, ERx Cefdinir and Prednisone (discussed risks for both) Given bottle for nasal saline rinses Tylenol/Ibuprofen prn pain/fever Fluids/rest Discussed s/s of worsening, RTC if no improvement 08/16/2016 Appointment: Vidya Manuel WPtel: [address] [place] [address] ACUTE ILLNESS 08/16/2016 Patient Education: Patient Medication [...] : F32.0 07/19/2016 Appointment: Alexandra Carroll WPtel: [id number] 07/15 confirmed`sl FOLLOW UP 07/19/2016 Patient [...] : J30.1 07/06/2016 Appointment: Alexandra Carroll WPtel: [facility] 07/05 confirmed-sp FOLLOW UP 07/06/2016 Patient [...] : J01.91 06/15/2016 Appointment: Alexandra Carroll WPtel: [facility] 06/14 lm ~sl ACUTE ILLNESS 06/15/2016 Patient Education: Patient Medication Summary Completed 06/15/2016 Visit Diagnosis Plan: Migraine, unspecif ied, not intractable, without status migrainosus Discussion: Injection as above Drink ple nty of water No driving x 6 hours Rest No OTC nsaids today Follow up PRN Refill called of claritin-d ICD-9 : 346.90 ICD-10 : G43.909 04/09/2016 Appointment: Nae Mckay [address] [place], [place] [id number] ACUTE ILLNESS 04/09/2016 Patient Education: Patient Medication [...] R53.83 03/17/2016 Appointment: Alexandra Carroll WPtel: [address] [place], [place] [id number] 03/16 nvm~sl 03/17 confirmed`sl FOLLOW UP 0 03/17/2016 Patient Education: Patient Medication Summary Completed 03/17/2016 Appointment: Alexandra Carroll WPtel: [address] [place] [id number] [place] 03/11 lm~sl 03/15lm `sl 03/15 confirmed`sl [...] same robert. If working well, continue the p8almzm office visits. Call if not working well, and will restart xanax at HS for sleep. 11/13/2015 Appointment: Nae Mckay [address] [place], [place] [address] 11/11 confirmed~sl FOLLOW UP 11/13/2015 Patient Education: Patient Medication Summary Completed 11/13/2015 Appointment: Alexandra Carroll WPtel: [address] [place] [address] Suture Removal 06/23/2015 Patient Education: Patient Medication Summary Completed 06/23/2015 Visit Plan: Removal of lesion above usin g 3-0 punch biopsy Return in 10 days for suture removal 06/12/2015 Appointment: Alexandra Carroll WPtel: [address] [place] [address] 06/10 lm ~sl ACUTE ILLNESS 06/12/2015 Patient Education: Patient Medication Summary Completed 06/12/2015 Referral: Soy Garcia WPtel: [facility] [address] Schedule patient around lunch time and 3 weeks from 04/22/2015 ~ Spoke with Kiesha at Dr. Sandoval Office and 04/24/15 and scheduled the patient ~ 04/24/15 Patient is informed~ 06/03 Patient canceled the appointment ~ Patient did not show up for scheduled appointment-sp Appoint ment Requested 05/21/2015 Appointment: Alexandra Carroll WPtel: [address] [place] [address] 05/05/2015 Patient Education: Patient Medication Summary Completed 05/05/2015 Visit Plan: Starts PT today Schedule wit h Dr. Garcia for epidural CT abdomen/pelvis results discussed Sees [facility] in April and will get checked then 04/22/2015 Appointment: Alexandra Carroll WPtel: [address] [place] [address] 04/21 confirmed~lb ACUTE ILLNESS 04/22/2015 Patient Education: Patient Medication Summary Completed 04/22/2015 Referral: Licnoln Hernandez WPtel: [address] [place] [address] Referral Initiated 04/10/2015 Patient Education: Patient Medication Summary Completed 04/09/2015 Visit Plan: Start with lumosacral spine x-ray--will likely need MRI of L/S spine x-ray Needs urology--has had to have bladder stretched in past Tivorbex 03/24/2015 Appointment: Alexandra Carroll WPtel: [address] [place], [place] [id number] 03/21/15 appt confirmed cn ACUTE ILLNESS 03/24 Patient Education: Patient Medication Summary Completed 03/24/2015 Visit Plan: Saline nasal flushes prn. Ty lenol/Motrin prn headache. Notify if persists/symptoms worsening. Cefuroxime to cover both sinuses and UTI Culture urine Check lab 02/27/2015 Appointment: Alexandra Carroll WPtel: [address] [place] [address] 02/26/15 vm to confirm and need new insu meri on file is inactive cn....02/27/15 appt confirmed cn ACUTE ILLNESS 015 Patient Education: Patient Medication Summary Completed 02/27/2015 Visit Plan: Lab discussed Stop simvastat in Check lipids in 6mos Continue all other meds at current dose Had Pap and Mammo 3 weeks ago 06/13/2014 Appointment: Alexandra Carroll WPtel: [address] [place] [address] Annual Well Visit 06/13/2014 Patient Education: Patient Medication Summary Completed 06/13/2014 Appointment: Shalini Walters WPtel: [address] [place] [address] ACUTE ILLNESS 04/18/2014 Patient Education: Patient Medication Summary Completed 04/18/2014 Visit Plan: Check lab in May fwup Can try decreasing xanax to 1mg q HS with melatonin 5-10mg q HS 12/05/2013 Appointment: Alexandra Carroll WPtel: [address] [place] [address] 12/04 vm FOLLOW UP 12/05/2013 Patient Education: Patient Medication Summary Completed 12/05/2013 Appointment: Alexandra Carroll WPtel: [address] [place], [place] [id number] [place] FOLLOW UP 06/05/2013 Patient Education: Patient Medication Summary Completed 06/05/2013 Appointment: Alexandra Carroll WPtel: [address] [place] [address] FOLLOW UP 05/22/2013 Patient Education: Patient Medication Summary Completed 05/22/2013 Visit Plan: Zovirax for 2wks Notify if p ain worsens or if persists 04/05/2013 Appointment: Alexandra Carroll WPtel: [address] [place] [address] ACUTE ILLNESS 04/05/2013 Patient Education: Patient Medication Summary Completed 04/05/2013 Visit Plan: Keep Wellbutrin at current d ose Pt did see for counseling 03/26/2013 Appointment: Alexandra Carroll WPtel: [address] [place] [address] ACUTE ILLNESS 03/26/2013 Patient Education: Patient Medication Summary Completed 03/26/2013 Visit Plan: Continue citalopram at curre nt dose Increase xanax to 1-2mg q HS for sleep Add Wellbutrin Sr 100mg q AM Start Counseling 03/06/2013 Appointment: Alexandra Carroll WPtel: [address] [place] [address] ACUTE ILLNESS 03/06/2013 Patient Education: Patient Medication Summary Completed 03/06/2013 Appointment: Alexandra Carroll WPtel: [address] [place] [address] ACUTE ILLNESS 11/29/2012 Patient Education: Patient Medication Summary Completed 11/29/2012 Appointment: Alexandra Carroll WPtel: [address] [place] [address] ACUTE ILLNESS 09/26/2012 Patient Education: Patient Medication Summary Completed 09/26/2012 Appointment: Alexandra Carroll WPtel: [address] [place] [address] ACUTE ILLNESS 07/11/2012 Patient Education: Patient Medication Summary Completed 07/11/2012 Appointment: Alexandra Carroll WPtel: [address] [place] [address] [place] LAB 02/17/2012 Patient Education: Patient Medication Summary Completed 02/17/2012 Visit Plan: Check fasting lab Start annie y ca with Vit D Cont CPAP Mammo up-to-date Hemoccult card given 02/02/2012 Appointment: Alexandra Carroll WPtel: [address] [place] [address] PHYSICAL 02/02/2012 Patient Education: Patient Medication Summary Completed 02/02/2012 Appointment: Alexandra Carroll WPtel: [address] [place] [address] UA 08/27/2011 Patient Education: Patient Medication Summary Completed 08/27/2011 Visit Plan: Levaquin and Diflucan for 1w k Then cipro QOD for prophylaxis 08/17/2011 Appointment: Alexandra Carroll WPtel: [address] [place] [address] FOLLOW UP 08/17/2011 Patient Education: Patient Medication Summary Completed 08/17/2011 Appointment: Alexandra Carroll WPtel: [address] [place] [address] UA 12/28/2010 Patient Education: Patient Medication Summary Completed 12/28/2010 Appointment: Alexandra Carroll WPtel: [address] [place], [place] [address] UA 11/09/2010 Patient Education: Patient Medication Summary Completed 11/09/2010 Appointment: Alexandra Carroll WPtel: [address] [place] [address] UA 10/29/2010 Patient Education: Patient Medication Summary Completed 10/29/2010 Appointment: Steph Bowen WPtel: [address] [place] [address] ACUTE ILLNESS 10/14/2010 Patient Education: Patient Medication Summary Completed 10/14/2010 Referral: Florian Baig WPtel: [facility] [address], [address] Referral Initiated Referral: Paulo Albert WPtel: [id number] [id number] [place] Referral Appointment Requested Referral: Luis Enrique Jasso WPtel: [facility] [address], [address] Referral Appointment Requested Referral: Florian Baig WPtel: [facility] [address] Referral Appointment Requested Referral: Caleb Glaser WPtel: [address] Referral Appointment Requested Referral: Florian Baig WPtel: [facility] [address] Referral Initiated Referral: Florian Baig WPtel: [facility] [address] Referral Appointment Requested Instructions Comment . [...] same robert. If working well, continue the [id number] office visits. Call if not working well, and will restart xanax at HS for sleep. . Removal of lesion above using 3-0 punc h biopsy Return in 10 days for suture removal . Starts PT today Schedule with Dr. Garcia for epidural CT abdomen/pelvis results discussed Sees [facility] in April and will get checked then [...]
--- OUTSIDE RECORDS SUMMARY | 2019-09-02 00:31 | XMS REPORT | CCD ---
Author Author Ilda Bowen APRN Organization [facility] Address [address] [place] [address] Phone Care Team Providers Care Medical Records Clerk Name Role Phone Alexandra Carroll D.O., PP Unavailable CCM Unavailable Summary Purpose Interface Exchange Insurance Providers Payer name Policy type / Coverage type Covered alliance party ID Effective Begin Date Effective End Date [facility] Insurance [id number] 2017 Un known Family History Family History data not found Social History Social History Element Codes Description Effective Dates Tobacco history SNOMED CT: 478051883 Nonsmoker 10/14/2010 Allergies, Adverse Reactions, Alerts Substance Reaction Codes Entered Date Inactivated Date Status MORPHINE SULFATE RxNorm: 0947905 10/14/2010 No Inactive Da te Active CEPHALOSPORINS rash Unknown 12/06/2017 No Inactive Date Acti ve SULFA (SULFONAMIDES) Unknown 10/14/2010 No Inactive Cruz e Active Clindamycin HCl Unknown 12/06/2017 No Inactive Date Act unique _ reaction, Unknown 06/13/2014 No Inactive Date Active DEMEROL Unknown 10/14/2010 No Inactive Date Active Problems Condition Codes Effective Dates Condition Status Thrombocytosis ICD-9: 238.71 ICD-10: D47.3 02/14/2019 Active [...] Fill Instructions cyclobenzaprine 10 mg tablet RxNorm: 738001 1 Tablet(s) Oral three times a day as needed for muscle spasm 02/12/2019 02/12/2019 Inactive Xanax 1 mg tablet RxNorm: 223792 1-2 Tablet(s) Oral e very night at bedtime as needed for sleep 02/09/2019 03/10/2019 Active Generic For:LAVELLE AX 1MG 10/11/2016 11:15:13 AM Xanax 1 mg tablet RxNorm: 911753 1-2 Tablet(s) Oral e very night at bedtime as needed for sleep 01/22/2019 02/08/2019 Inactive Generic For:LAVELLE AX 1MG 10/11/2016 11:15:13 AM Celexa 40 mg tablet RxNorm: 247101 1 Tablet(s) Oral QD 01/17/2019 Active - First Attempt Ref: [id number] Xanax 1 mg tablet RxNorm: 847713 1 Tablet(s) Oral every night a t bedtime 01/08/2019 01/21/2019 Inactive levothyroxine 88 mcg tablet RxNorm: 836861 TAKE 1 TABLET BY NINA TH DAILY 12/19/2018 06/16/2019 Active - First Attempt Ref: [id number] Xanax 1 mg tablet RxNorm: 369281 1 Tablet(s) Oral every night a t bedtime 12/06/2018 01/05/2019 Inactive Singulair 10 mg tablet RxNorm: 721019 1 Tablet(s) Oral every ni ght at bedtime 11/23/2018 11/17/2019 Active - First Attempt Ref: [id number] Celexa 40 mg tablet RxNorm: 967814 1 Tablet(s) Oral 11/23/20182018 Inactive - First Attempt Ref: [id number] cyclobenzaprine 10 mg tablet RxNorm: 381685 1 Tablet(s) Oral three times a day as needed for muscle spasm 11/23/2018 02/11/2019 Inactive Xanax 1 mg tablet RxNorm: 910698 1 Tablet(s) PO QHS 11/06/20182018 Inactive Xanax 1 mg tablet RxNorm: 898820 1 Tablet(s) PO QHS 09/26/20182018 Inactive Singulair 10 mg tablet RxNorm: 756237 TAKE 1 TABLET BY MOUTH EVERY NIGHT AT BEDTIME 08/16/2018 11/22/2018 Inactive - First Attempt Ref: [id number] Xanax 1 mg tablet RxNorm: 274818 1 Tablet(s) PO QHS 08/01/20182018 Inactive levothyroxine 88 mcg tablet RxNorm: 732918 TAKE 1 TABLET BY NINA TH DAILY 07/31/2018 12/18/2018 Inactive - First Attempt Ref: [id number] Celexa 40 mg tablet RxNorm: 798696 TAKE 1 TABLET BY MOUTH DAILY 04/201811/22/2018 Inactive - First Attempt Ref: 1800500 54 bupropion HCl SR 100 mg tablet,12 hr sustained-release RxNor m: 428911 1 Tablet(s) PO BID 07/12/2018 07/06/2019 Active - Ref: 67106124 7 Claritin-D 24 Hour 10 mg-240 mg tablet,extended release RxNo rm: 2541423 1 Tablet(s) PO QD 06/29/2018 2018 Inactive Claritin-D 24 Hour 10 mg-240 mg tablet,extended release RxNo rm: 7554455 1 Tablet(s) PO QD 06/29/2018 2018 Inactive Xanax 1 mg tablet RxNorm: 228899 1-2 Tablet(s) PO QHS as needed for sleep 05/26/2018 06/23/2018 Inactive Generic For:XANAX 1M G 10/11/2016 11:15:13 AM Xanax 1 mg tablet RxNorm: 921236 1-2 Tablet(s) PO QHS as needed for sleep 03/28/2018 05/25/2018 Inactive Generic For:XANAX 1M G 10/11/2016 11:15:13 AM Macrobid 100 mg capsule RxNorm: 093791 1 Capsule(s) PO BID 03/27/19 19 03/31/2018 Inactive gabapentin 300 mg capsule RxNorm: 680875 1 Capsule(s) PO QHS 201703/26/2018 Inactive Claritin-D 24 Hour 10 mg-240 mg tablet,extended release RxNo rm: 2679388 1 Tablet(s) PO QD 01/26/2018 02/24/2018 Inactive gabapentin 100 mg capsule RxNorm: 453422 1 Capsule(s) P O QHS for 1 week then 2 po q HS for 2 weeks then 3 po q HS 01/24/2018 03/26/2018 Inactive Xanax 1 mg tablet RxNorm: 478060 1-2 Tablet(s) PO QHS as needed for sleep 01/24/2018 03/24/2018 Inactive Generic For:XANAX 1M G 10/11/2016 11:15:13 AM prednisone 20 mg tablet RxNorm: 655490 1 Tablet(s) PO T ID for 3 days then 1 po BID for 3 days then one daily for 3 days 12/29/2017 03/26/2018 Inactiv e prednisone 20 mg tablet RxNorm: 876847 3 Tablet(s) PO T ID for 3 days then 1 po BID for 3 days then one daily for 3 days 12/29/2017 12/29/2017 Inactiv e Macrobid 100 mg capsule RxNorm: 715152 1 Capsule(s) PO BID 12/30/19 18 01/02/2018 Inactive Xanax 1 mg tablet RxNorm: 640879 1-2 Tablet(s) PO QHS as needed for sleep 12/28/2017 01/23/2018 Inactive Generic For:XANAX 1M G 10/11/2016 11:15:13 AM Medrol (Walter) 4 mg tablets in a dose pack RxNorm: 375855 Tablet(s) PO take as directed 12/01/2017 03/26/2018 Inactive Keflex 750 mg capsule RxNorm: 856733 1 Capsule(s) PO BID 12/01/2017 1 Inactive clindamycin HCl 300 mg capsule RxNorm: 483507 2 Capsule(s) PO TID 1 12/08/2017 Inactive Xanax 1 mg tablet RxNorm: 155101 1-2 Tablet(s) PO QHS as needed for sleep 11/28/2017 12/27/2017 Inactive Generic For:XANAX 1M G 10/11/2016 11:15:13 AM mupirocin 2 % topical ointment RxNorm: 909408 1 Application OTIC BI D 11/28/2017 08/09/2018 Inactive Xanax 1 mg tablet RxNorm: 800269 1-2 Tablet(s) PO QHS as needed for sleep 10/27/2017 11/25/2017 Inactive Generic For:XANAX 1M G 10/11/2016 11:15:13 AM Macrobid 100 mg capsule RxNorm: 312623 1 Capsule(s) PO BID 10/11/19 18 10/16/2017 Inactive Medrol (Walter) 4 mg tablets in a dose pack RxNorm: 499077 Tablet(s) PO take as directed 10/10/2017 11/16/2017 Inactive Xanax 1 mg tablet RxNorm: 837425 1-2 Tablet(s) PO QHS as needed for sleep 09/28/2017 10/26/2017 Inactive Generic For:XANAX 1M G 10/11/2016 11:15:13 AM Xanax 1 mg tablet RxNorm: 150384 1-2 Tablet(s) PO QHS as needed for sleep 08/30/2017 09/27/2017 Inactive Generic For:XANAX 1M G 10/11/2016 11:15:13 AM Xanax 1 mg tablet RxNorm: 228199 1-2 Tablet(s) PO QHS as needed for sleep 08/30/2017 08/29/2017 Inactive Generic For:XANAX 1M G 10/11/2016 11:15:13 AM Xanax 1 mg tablet RxNorm: 713908 1-2 Tablet(s) PO QHS as needed for sleep 08/01/2017 08/29/2017 Inactive Generic For:XANAX 1M G 10/11/2016 11:15:13 AM Xanax 1 mg tablet RxNorm: 391119 1-2 Tablet(s) PO QHS as needed for sleep 06/29/2017 2017 Inactive Generic For:XANAX 1M G 10/11/2016 11:15:13 AM Claritin-D 24 Hour 10 mg-240 mg tablet,extended release RxNo rm: 6415803 1 Tablet(s) PO QD 06/29/2017 2017 Inactive levothyroxine 88 mcg tablet RxNorm: 520890 1 Tablet(s) PO QD 201709/10/2017 Inactive Xanax 1 mg tablet RxNorm: 443084 1-2 Tablet(s) PO QHS as needed for sleep 05/26/2017 06/28/2017 Inactive Generic For:XANAX 1M G 10/11/2016 11:15:13 AM Claritin-D 24 Hour 10 mg-240 mg tablet,extended release RxNo rm: 3581031 1 Tablet(s) PO QD 05/26/2017 06/24/2017 Inactive bupropion HCl SR 100 mg tablet,12 hr sustained-release RxNor m: 633578 Tablet(s) Take 1 tablet by mouth two times daily 04/06/2017 12/31/2017 Inactive - Ref: [id number] Xanax 1 mg tablet RxNorm: 150455 1-2 Tablet(s) PO QHS as needed for sleep 03/24/2017 05/22/2017 Inactive Generic For:XANAX 1M G 10/11/2016 11:15:13 AM Medrol (Walter) 4 mg tablets in a dose pack RxNorm: 664405 Tablet(s) P O 02/16/2017 03/27/2017 Inactive Xanax 1 mg tablet RxNorm: 388793 Tablet(s) TAKE ONE T O TWO TABLETS BY MOUTH AT BEDTIME NEEDED 02/16/2017 03/17/2017 Inactive Generic For:XA NAX 1MG 10/11/2016 11:15:13 AM Claritin-D 24 Hour 10 mg-240 mg tablet,extended release RxNo rm: 3558103 1 Tablet(s) PO QD 02/16/2017 04/16/2017 Inactive cefdinir 300 mg capsule RxNorm: 260441 2 Capsule(s) PO QD 02/16/2017 02/25/2017 Inactive Celexa 40 mg tablet RxNorm: 770008 Tablet(s) Take 1 tablet by m outh daily 12/23/2016 09/18/2017 Inactive - Ref: [id number] Xanax 1 mg tablet RxNorm: 700715 Tablet(s) TAKE ONE T O TWO TABLETS BY MOUTH AT BEDTIME NEEDED 12/16/2016 01/14/2017 Inactive Generic For:XA NAX 1MG 10/11/2016 11:15:13 AM Xanax 1 mg tablet RxNorm: 567111 Tablet(s) TAKE ONE T O TWO TABLETS BY MOUTH AT BEDTIME NEEDED 11/18/2016 12/15/2016 Inactive Generic For:XA NAX 1MG 10/11/2016 11:15:13 AM Xanax 1 mg tablet RxNorm: 018501 TAKE ONE TO TWO TABL ETS BY MOUTH AT BEDTIME NEEDED 10/11/2016 11/17/2016 Inactive Generic For:XANA X 1MG 10/11/2016 11:15:13 AM Mobic 15 mg tablet RxNorm: 785557 1 Tablet(s) PO QD 09/06/20162016 Inactive Claritin-D 24 Hour 10 mg-240 mg tablet,extended release RxNo rm: 7909491 1 Tablet(s) PO QD 09/02/2016 11/30/2016 Inactive prednisone 20 mg tablet RxNorm: 954033 1 Tablet(s) PO T ID for 3 days then 1 po BID for 3 days then one daily for 3 days 08/16/2016 03/27/2017 Inactiv e cefdinir 300 mg capsule RxNorm: 281733 2 Capsule(s) PO QD 08/16/2016 09/05/2016 Inactive Xanax 1 mg tablet RxNorm: 184940 TAKE ONE TO TWO TABL ETS BY MOUTH AT BEDTIME NEEDED 08/05/2016 10/11/2016 Inactive Generic For:XANA X 1MG 08/05/2016 2:27:03 PM08/04/2016 4:15:22 PM Singulair 10 mg tablet RxNorm: 545078 1 Tablet(s) PO QHS 07/06/2016 0 09/03/2016 Inactive prednisone 20 mg tablet RxNorm: 343023 1 Tablet(s) PO T ID for 3 days then 1 po BID for 3 days then one daily for 3 days 06/15/2016 07/05/2016 Inactiv e Singulair 10 mg tablet RxNorm: 309844 1 Tablet(s) PO QHS 06/15/2016 0 07/05/2016 Inactive cefdinir 300 mg capsule RxNorm: 854473 2 Capsule(s) PO QD 06/15/2016 07/05/2016 Inactive Xanax 1 mg tablet RxNorm: 632137 1-2 Tablet(s) PO QHS 05/21/201610/2016 Inactive Claritin-D 24 Hour 10 mg-240 mg tablet,extended release RxNo rm: 0048530 1 Tablet(s) PO QD 04/09/2016 07/07/2016 Inactive Xanax 1 mg tablet RxNorm: 735510 1-2 Tablet(s) PO QHS 03/23/201604/29 Inactive levothyroxine 88 mcg tablet RxNorm: 219997 1 Tablet(s) PO QD 201606/13/2017 Inactive bupropion HCl SR 100 mg tablet,sustained-release RxNorm: 993 503 Take 1 tablet by mouth two times daily 03/15/2016 12/09/2016 Inactive - Ref: 20 [id number] Celexa 40 mg tablet RxNorm: 572488 Take 1 tablet by mouth daily 12/23/2016 Inactive - Ref: [id number] Xanax 1 mg tablet RxNorm: 564212 1-2 Tablet(s) PO QHS 02/17/201603/01 Inactive levothyroxine 88 mcg tablet RxNorm: 861336 1 Tablet(s) PO QD 201502/22/2016 Inactive Xanax 1 mg tablet RxNorm: 023266 1-2 Tablet(s) PO QHS 11/25/201511/29 Inactive levothyroxine 88 mcg tablet RxNorm: 302845 1 Tablet(s) PO QD 201511/24/2015 Inactive temazepam 30 mg capsule RxNorm: 529883 1 Capsule(s) PO QHS 11/13/19 16 11/24/2015 Inactive Xanax 1 mg tablet RxNorm: 704073 1-2 Tablet(s) PO QHS 09/15/201510/29 Inactive Celexa 40 mg tablet RxNorm: 484689 1 Tablet(s) PO QD 1 Tablet(s ) PO QD 09/10/2015 09/16/2015 Inactive bupropion HCl SR 100 mg tablet,sustained-release RxNorm: 993 503 1 Tablet(s) PO BID 09/10/2015 09/23/2015 Inactive Xanax 1 mg tablet RxNorm: 280236 1-2 Tablet(s) PO QHS 09/10/201508/28 Inactive Xanax 1 mg tablet RxNorm: 829048 1-2 Tablet(s) PO QHS 08/11/201508/28 Inactive cyclobenzaprine 10 mg tablet RxNorm: 936798 1 Tablet(s) PO TID prn spasm 07/09/2015 11/23/2018 Inactive Celexa 40 mg tablet RxNorm: 142256 1 Tablet(s) PO QD 06/06/201508/03 Inactive Xanax 1 mg tablet RxNorm: 750645 1-2 Tablet(s) PO QHS 06/04/201505/2015 Inactive levothyroxine 88 mcg tablet RxNorm: 077641 1 Tablet(s) PO QD 201511/23/2015 Inactive Ceftin 500 mg tablet RxNorm: 715728 1 Tablet(s) PO BID 05/05/2015 Inactive Ceftin 500 mg tablet RxNorm: 748642 1 Tablet(s) PO BID 05/05/201507/2015 Inactive meloxicam 15 mg tablet RxNorm: 580504 1 Tablet(s) PO QD 04/16/2015 Inactive meloxicam 15 mg tablet RxNorm: 691470 1 Tablet(s) PO QD 04/16/2015 Inactive diclofenac sodium 75 mg tablet,delayed release RxNorm: 77185 6 1 Tablet(s) PO BID 04/04/2015 04/15/2015 Inactive diclofenac sodium 75 mg tablet,delayed release RxNorm: 51047 6 1 Tablet(s) PO BID 04/04/2015 04/03/2015 Inactive Tivorbex 40 mg capsule RxNorm: 0156116 1 Capsule(s) PO TID 03/24/19 16 04/02/2015 Inactive bupropion HCl SR 100 mg tablet,sustained-release RxNorm: 993 503 1 Tablet(s) PO BID 03/11/2015 09/06/2015 Inactive cyclobenzaprine 10 mg tablet RxNorm: 695134 1 Tablet(s) PO TID prn spasm 03/11/2015 07/08/2015 Inactive levothyroxine 88 mcg tablet RxNorm: 473199 1 Tablet(s) PO QD 201405/27/2015 Inactive Claritin-D 24 Hour 10 mg-240 mg tablet,extended release RxNo rm: 8956776 1 Tablet(s) PO QD 02/27/2015 05/27/2015 Inactive cefuroxime axetil 500 mg tablet RxNorm: 667360 1 Tablet(s) PO BID 1 03/12/2015 Inactive Celexa 40 mg tablet RxNorm: 294324 1 Tablet(s) PO QD 02/05/201504/05 Inactive levothyroxine 75 mcg tablet RxNorm: 184838 1 Tablet(s) PO QD 201402/26/2015 Inactive Celexa 40 mg tablet RxNorm: 582161 1 Tablet(s) PO QD 10/09/201402/04 Inactive Activella 1 mg-0.5 mg tablet RxNorm: 9553719 1 Tablet(s) PO QD 08/2802/26/2015 Inactive bupropion HCl SR 100 mg tablet,sustained-release RxNorm: 993 503 1 Tablet(s) PO BID 09/12/2014 03/10/2015 Inactive levothyroxine 75 mcg tablet RxNorm: 277939 1 Tablet(s) PO QD 201412/09/2014 Inactive levothyroxine 75 mcg tablet RxNorm: 549619 1 Tablet(s) PO QD 201409/11/2014 Inactive Celexa 40 mg tablet RxNorm: 949207 1 Tablet(s) PO QD 08/12/201410/08 Inactive Xanax 1 mg tablet RxNorm: 757762 1-2 Tablet(s) PO QHS 08/12/201409/28 Inactive Claritin-D 24 Hour 10 mg-240 mg tablet,extended release RxNo rm: 9493732 1 Tablet(s) PO QD 06/13/2014 09/10/2014 Inactive cyclobenzaprine 10 mg tablet RxNorm: 400128 1 Tablet(s) PO TID prn spasm 06/12/2014 02/26/2015 Inactive Xanax 1 mg tablet RxNorm: 129690 1-2 Tablet(s) PO QHS 05/09/201406/28 Inactive levothyroxine 75 mcg tablet RxNorm: 735338 1 Tablet(s) PO QD 201407/08/2014 Inactive cephalexin 500 mg capsule RxNorm: 290216 1 Capsule(s) PO QOD 201402/26/2015 Inactive simvastatin 10 mg tablet RxNorm: 444142 1 Tablet(s) PO QHS 04/10/19 15 06/12/2014 Inactive Xanax 1 mg tablet RxNorm: 030527 1-2 Tablet(s) PO QHS 04/10/201404/28 Inactive levothyroxine 75 mcg tablet RxNorm: 189860 1 Tablet(s) PO QD 201404/09/2014 Inactive levothyroxine 75 mcg capsule RxNorm: 079520 1 Capsule(s) PO QD 03/3104/10/2014 Inactive Activella 1 mg-0.5 mg tablet RxNorm: 3967563 1 Tablet(s) PO QD 03/0109/11/2014 Inactive bupropion HCl SR 100 mg tablet,sustained-release RxNorm: 993 503 1 Tablet(s) PO BID 03/04/2014 08/30/2014 Inactive Activella 1 mg-0.5 mg tablet RxNorm: 9038214 1 Tablet(s) PO QD 01/2803/18/2014 Inactive levothyroxine 75 mcg capsule RxNorm: 514524 1 Capsule(s) PO QD 12/2904/08/2014 Inactive simvastatin 10 mg tablet RxNorm: 345187 1 Tablet(s) PO QHS 01/10/20 14 04/08/2014 Inactive cyclobenzaprine 10 mg tablet RxNorm: 426994 1 Tablet(s) PO TID prn spasm 01/09/2014 04/08/2014 Inactive Cipro 500 mg tablet RxNorm: 194400 1 Tablet(s) PO BID 12/25/201304/2013 Inactive Cipro 500 mg tablet RxNorm: 147323 1 Tablet(s) PO BID 12/25/201311/29 Inactive bupropion HCl SR 100 mg tablet,sustained-release RxNorm: 993 503 1 Tablet(s) PO QAM 12/11/2013 03/03/2014 Inactive cephalexin 500 mg capsule RxNorm: 282762 1 Capsule(s) PO QOD 201304/09/2014 Inactive Xanax 1 mg tablet RxNorm: 684552 1-2 Tablet(s) PO QHS 10/15/201310/29 Inactive simvastatin 10 mg tablet RxNorm: 348102 1 Tablet(s) PO QHS 10/11/19 14 01/07/2014 Inactive Celexa 40 mg tablet RxNorm: 355714 Tablet(s) PO TAKE 1 TABLET BY MOUTH ONCE DAILY. 09/18/2013 09/17/2013 Inactive Xanax 1 mg tablet RxNorm: 208282 1-2 Tablet(s) PO QHS 08/13/201308/28 Inactive simvastatin 10 mg tablet RxNorm: 407947 1 Tablet(s) PO QHS 07/12/19 14 10/08/2013 Inactive bupropion HCl SR 100 mg tablet,sustained-release RxNorm: 993 503 1 Tablet(s) PO QAM 05/22/2013 11/17/2013 Inactive Pamelor 10 mg capsule RxNorm: 741642 1 Capsule(s) PO QHS for PLATA /sleep 05/22/2013 06/04/2013 Inactive Xanax 1 mg tablet RxNorm: 808690 1-2 Tablet(s) PO QHS 05/15/201305/29 Inactive Pamelor 10 mg capsule RxNorm: 937785 1 Capsule(s) PO QHS for PLATA /sleep 05/15/2013 05/21/2013 Inactive Xanax 1 mg tablet RxNorm: 209836 1 Tablet(s) PO QHS 04/27/20132013 Inactive Zovirax 800 mg tablet RxNorm: 566045 1 Tablet(s) PO TID 04/05/2013 Inactive Xanax 1 mg tablet RxNorm: 675796 1 Tablet(s) PO QHS 04/03/2013 No Sto p Date Active bupropion HCl SR 100 mg tablet,sustained-release RxNorm: 993 503 1 Tablet(s) PO QAM 03/26/2013 05/21/2013 Inactive bupropion HCl SR 100 mg tablet,sustained-release RxNorm: 993 503 1 Tablet(s) PO QAM 03/06/2013 03/25/2013 Inactive Pamelor 10 mg capsule RxNorm: 916797 1 Capsule(s) PO QHS for PLATA /sleep 02/14/2013 05/14/2013 Inactive levothyroxine 75 mcg capsule RxNorm: 992247 1 Capsule(s) PO QD 12/2901/08/2014 Inactive simvastatin 10 mg tablet RxNorm: 573319 1 Tablet(s) PO QHS TAKE 1 TABLET BY MOUTH ONCE DAILY AT BEDTIME. 01/15/2013 07/10/2013 Inactive cyclobenzaprine 10 mg tablet RxNorm: 400467 1 Tablet(s) PO TID prn spasm 12/25/2012 06/22/2013 Inactive Pamelor 10 mg capsule RxNorm: 164203 1 Capsule(s) PO QHS for PLATA /sleep 11/29/2012 02/14/2013 Inactive Celexa 40 mg tablet RxNorm: 596503 Tablet(s) PO TAKE 1 TABLET BY MOUTH ONCE DAILY. 10/11/2012 09/17/2013 Inactive simvastatin 10 mg tablet RxNorm: 101497 Tablet(s) PO TA KE 1 TABLET BY MOUTH ONCE DAILY AT BEDTIME. 10/11/2012 01/14/2013 Inactive simvastatin 10 mg tablet RxNorm: 572635 1 Tablet(s) PO QD 07/11/2012 10/08/2012 Inactive simvastatin 10 mg tablet RxNorm: 067664 1 Tablet(s) PO QD 04/14/2012 07/11/2012 Inactive simvastatin 10 mg tablet RxNorm: 886973 1 Tablet(s) PO QD 04/14/2012 04/13/2012 Inactive Celexa 40 mg tablet RxNorm: 726094 1 Tablet(s) PO QD 03/15/201209/10 Inactive cyclobenzaprine 10 mg tablet RxNorm: 342553 1 Tablet(s) PO TID prn spasm 02/02/2012 02/01/2012 Inactive cyclobenzaprine 10 mg tablet RxNorm: 728953 1 Tablet(s) PO TID prn spasm 02/02/2012 07/30/2012 Inactive Diflucan 100 mg Tab RxNorm: 110750 1 Tablet(s) PO QD 08/17/201108/22 Inactive Cipro 250 mg Tab RxNorm: 077091 1 Tablet(s) PO QD 08/17/2011 10/15/19 12 Inactive Levaquin 500 mg Tab RxNorm: 447534 1 Tablet(s) PO QD 08/17/201108/22 Inactive Pyridium 200 mg Tab RxNorm: 5146280 1 Tablet(s) PO TID 10/14/2010 Inactive may turn urine orange-red color. Cipro 500 mg Tab RxNorm: 719338 1 Tablet(s) PO BID 10/14/2010 011 Inactive levothyroxine 75 mcg capsule RxNorm: 469983 1 Capsule(s) PO QD 12/3001/14/2011 Inactive loratadine 10 mg tablet RxNorm: 303231 1 Tablet(s) PO QHS No Start Da te Active Vitamin D3 5,000 unit tablet RxNorm: 369149 1 Tablet(s) PO QD No Star t Date Active Nasacort 55 mcg nasal spray aerosol RxNorm: 9316186 2 Sp ray NASAL each nostril QHS No Start Date Active cyclobenzaprine 10 mg tablet RxNorm: 148922 1 Tablet(s) PO TID as needed No Start Date 11/22/2018 Inactive Vitamin D2 1,000 unit capsule RxNorm: 544447 3 Capsule(s) PO QD No Start Date 11/16/2017 Inactive diclofenac sodium 75 mg tablet,delayed release RxNorm: 30393 6 1 Tablet(s) PO BID No Start Date 03/16/2016 Inactive cephalexin 500 mg capsule RxNorm: 559998 1 Capsule(s) PO QOD No Sta rt Date 12/04/2013 Inactive cyclobenzaprine 10 mg tablet RxNorm: 104292 1 Tablet(s) PO QHS No S tart Date 02/01/2012 Inactive hydrocodone 5 mg-acetaminophen 500 mg tablet RxNorm: 783744 1 -2 Tablet(s) PO Q6H as needed No Start Date 08/09/2018 Inactive etodolac 400 mg tablet RxNorm: 563496 1 Tablet(s) PO TID No Start D ate 09/17/2018 Inactive Xanax 1 mg tablet RxNorm: 581188 1 Tablet(s) PO QHS No Start Date 04/2013 Inactive Vitamin D3 1,000 unit capsule RxNorm: 484486 1 Capsule(s) PO QD No Start Date 06/12/2014 Inactive estradiol 2 mg tablet RxNorm: 126424 1/2 Tablet(s) PO QD No Start D ate 03/05/2013 Inactive Celexa 40 mg tablet RxNorm: 127493 1 Tablet(s) PO QD No Start Date Inactive Activella 1 mg-0.5 mg tablet RxNorm: 9373965 1 Tablet(s) PO QD No S tart Date 07/10/2012 Inactive medroxyprogesterone 5 mg tablet RxNorm: 8252206 1/2 Tablet(s) PO QD No Start Date 03/05/2013 Inactive levothyroxine 88 mcg tablet RxNorm: 601195 1 Tablet(s) PO QD No Sta rt Date 02/26/2015 Inactive Keflex 500 mg capsule RxNorm: 710399 1 Capsule(s) PO PRN No Start D ate 08/16/2011 Inactive Activella 1 mg-0.5 mg tablet RxNorm: 1171170 1 Tablet(s) PO QHS No Start Date 03/27/2017 Inactive Activella 1 mg-0.5 mg tablet RxNorm: 0695643 1 Tablet(s) PO QD No S tart Date 02/06/2014 Inactive Flexeril 10 mg Tab RxNorm: 571476 1 Tablet(s) PO TID No Start Date Inactive prn spasm simvastatin 10 mg tablet RxNorm: 947539 1 Tablet(s) PO QD No Start Date 04/13/2012 Inactive Medication Administered No Medication Administered data Immunizations Vaccine Codes Date Status Influenza CVX: 135 01/16/2019 Complete Pneumococcal CVX: 133 01/16/2019 Complete Results No Results data Procedures Procedure Codes Date FLU VACC PRSV FREE INC ANTIG 65 AND OLDER CPT-4: 13465 01/16/2019 FLU VACC PRSV FREE INC ANTIG 65 AND OLDER CPT-4: 67546 01/16/2019 PNEUMOCOCCAL VACC 13 NARESH IM CPT-4: 54545 01/16/2019 SKIN FUNGI CULTURE CPT-4: 34395 01/16/2019 IMMUNIZATION ADMIN CPT-4: 94555 01/16/2019 IMMUNIZATION ADMIN EACH ADD CPT-4: 42968 01/16/2019 THER/PROPH/DIAG INJ SC/IM CPT-4: 77521 01/17/2018 KETOROLAC TROMETHAMINE INJ CPT-4: J1885 01/17/2018 THER/PROPH/DIAG INJ SC/IM CPT-4: 35288 01/17/2018 PROMETHAZINE HCL INJECTION CPT-4: J2550 01/17/2018 URINALYSIS NONAUTO W/O SCOPE CPT-4: 13454 12/29/2017 URINE CULTURE/ COLONY COUNT CPT-4: 23059 12/29/2017 THER/PROPH/DIAG INJ SC/IM CPT-4: 13326 11/30/2017 TRIAMCINOLONE ACET INJ NOS CPT-4: J3301 11/30/2017 DEXAMETHASONE SODIUM PHOS CPT-4: J1100 11/30/2017 CEFTRIAXONE SODIUM INJECTION CPT-4: J0696 11/29/2017 THER/PROPH/DIAG INJ SC/IM CPT-4: 90639 11/29/2017 CEFTRIAXONE SODIUM INJECTION CPT-4: J0696 11/28/2017 THER/PROPH/DIAG INJ SC/IM CPT-4: 39612 11/28/2017 URINALYSIS NONAUTO W/O SCOPE CPT-4: 97638 10/10/2017 THER/PROPH/DIAG INJ SC/IM CPT-4: 08122 10/10/2017 TRIAMCINOLONE ACET INJ NOS CPT-4: J3301 10/10/2017 DEXAMETHASONE SODIUM PHOS CPT-4: J1100 10/10/2017 CEFTRIAXONE SODIUM INJECTION CPT-4: J0696 10/10/2017 THER/PROPH/DIAG INJ SC/IM CPT-4: 18361 10/10/2017 URINE CULTURE/ COLONY COUNT CPT-4: 32680 10/10/2017 THER/PROPH/DIAG INJ SC/IM CPT-4: 98637 11/02/2016 KETOROLAC TROMETHAMINE INJ CPT-4: J1885 11/02/2016 THER/PROPH/DIAG INJ SC/IM CPT-4: 04107 06/15/2016 TRIAMCINOLONE ACET INJ NOS CPT-4: J3301 06/15/2016 DEXAMETHASONE SODIUM PHOS CPT-4: J1100 06/15/2016 THER/PROPH/DIAG INJ SC/IM CPT-4: 63032 04/09/2016 KETOROLAC TROMETHAMINE INJ CPT-4: J1885 04/09/2016 PROMETHAZINE HCL INJECTION CPT-4: J2550 04/09/2016 EXC TR-EXT B9+ERASMO 0.5 CM< CPT-4: 38876 06/12/2015 URINALYSIS NONAUTO W/O SCOPE CPT-4: 94553 05/05/2015 URINE CULTURE/ COLONY COUNT CPT-4: 24578 05/05/2015 URINALYSIS NONAUTO W/O SCOPE CPT-4: 84953 03/24/2015 URINALYSIS NONAUTO W/O SCOPE CPT-4: 69312 02/27/2015 URINE CULTURE/ COLONY COUNT CPT-4: 75945 02/27/2015 THER/PROPH/DIAG INJ SC/IM CPT-4: 01794 04/18/2014 KETOROLAC TROMETHAMINE INJ CPT-4: J1885 04/18/2014 THER/PROPH/DIAG INJ SC/IM CPT-4: 15388 06/05/2013 TRIAMCINOLONE ACET INJ NOS CPT-4: J3301 06/05/2013 THER/PROPH/DIAG INJ SC/IM CPT-4: 75334 11/29/2012 KETOROLAC TROMETHAMINE INJ CPT-4: J1885 11/29/2012 URINALYSIS NONAUTO W/O SCOPE CPT-4: 41466 07/11/2012 URINE CULTURE/ COLONY COUNT CPT-4: 81839 07/11/2012 OCCULT BLOOD FECES CPT-4: 83545 02/17/2012 URINALYSIS NONAUTO W/O SCOPE CPT-4: 08816 08/27/2011 URINE CULTURE/ COLONY COUNT CPT-4: 51610 08/27/2011 URINALYSIS NONAUTO W/O SCOPE CPT-4: 10400 08/17/2011 URINE CULTURE/ COLONY COUNT CPT-4: 64993 08/17/2011 URINALYSIS NONAUTO W/O SCOPE CPT-4: 86510 12/28/2010 URINE CULTURE/ COLONY COUNT CPT-4: 34975 12/28/2010 URINALYSIS NONAUTO W/O SCOPE CPT-4: 24677 11/09/2010 URINE CULTURE/ COLONY COUNT CPT-4: 57945 11/09/2010 URINALYSIS NONAUTO W/O SCOPE CPT-4: 44684 10/29/2010 URINE CULTURE/ COLONY COUNT CPT-4: 22211 10/29/2010 URINE CULTURE/ COLONY COUNT CPT-4: 92788 10/14/2010 URINALYSIS NONAUTO W/O SCOPE CPT-4: 53217 10/14/2010 Vital Signs Date Vital 02/14/2019 Blood Pressure 1: 112/74 Code: 8480-6 Heart Rate 1: 80 bpm Respiratory Rate: 18 bpm Temperature: 36.6 (C) / 97.9 (F) Weight: 124 lbs 01/16/2019 Blood Pressure 1: 122/74 Code: 8480-6 BMI: 22.0 Code: 83506-0 Heart Rate 1: 72 bpm Height: 5'3" [...] 1: 126/72 Code: 8480-6 BMI: 22.7 Code: 99933-1 Heart Rate 1: 72 bpm Height: 5'3" [...] 1: 112/70 Code: 8480-6 BMI: 22.0 Code: 42236-5 Heart Rate 1: 80 bpm Height: 5'3" [...] 1: 122/64 Code: 8480-6 BMI: 21.4 Code: 24355-0 Heart Rate 1: 88 bpm Height: 5'3" Respiratory Rate: 22 bpm SpO2: 96% Tempera ture: 36.8 (C) / 98.2 (F) Weight: 121 lbs 06/22/2017 Blood Pressure 1: 124/78 Code: 8480-6 BMI: 21.6 Code: 38678-3 Heart Rate 1: 76 bpm Height: 5'3" Respiratory Rate: 20 bpm Temperature: 36 .8 (C) / 98.3 (F) Weight: 122 lbs 03/28/2017 Blood Pressure 1: 92/60 Code: 8480-6 BMI: 20.4 C ode: 29614-2 Heart Rate 1: 72 bpm Height: 5'3" Respiratory Rate: 20 bpm Temperature: 36 .9 (C) / 98.4 (F) Weight: 115 lbs 02/16/2017 Blood Pressure 1: 106/70 Code: 8480-6 BMI: 21.3 Code: 23756-0 Heart Rate 1: 82 bpm Height: 5'3" Respiratory Rate: 22 bpm SpO2: 97% Tempera ture: 36.1 (C) / 97.0 (F) Weight: 120 lbs 09/06/2016 Blood Pressure 1: 118/64 Code: 8480-6 BMI: 22.7 Code: 62818-3 Heart Rate 1: 78 bpm Height: 5'3" Respiratory Rate: 20 bpm SpO2: 98% Tempera ture: 36.2 (C) / 97.2 (F) Weight: 128 lbs 08/16/2016 Blood Pressure 1: 118/78 Code: 8480-6 BMI: 22.1 Code: 67387-3 Heart Rate 1: 78 bpm Height: 5'3" Respiratory Rate: 20 bpm SpO2: 97% Tempera ture: 36.2 (C) / 97.1 (F) Weight: 125 lbs 07/19/2016 Blood Pressure 1: 116/68 Code: 8480-6 BMI: 22.5 Code: 00526-4 Heart Rate 1: 76 bpm Height: 5'3" Respiratory Rate: 20 bpm Temperature: 36 .8 (C) / 98.2 (F) Weight: 127 lbs 07/06/2016 Blood Pressure 1: 106/70 Code: 8480-6 BMI: 22.5 Code: 98446-7 Heart Rate 1: 72 bpm Height: 5'3" Respiratory Rate: 20 bpm SpO2: 97% Tempera ture: 36.8 (C) / 98.2 (F) Weight: 127 lbs 06/15/2016 Blood Pressure 1: 136/76 Code: 8480-6 BMI: 22.9 Code: 69732-4 Heart Rate 1: 74 bpm Height: 5'3" Respiratory Rate: 18 bpm SpO2: 98% Tempera ture: 36.4 (C) / 97.6 (F) Weight: 129 lbs 04/09/2016 Blood Pressure 1: 124/78 Code: 8480-6 BMI: 23.0 Code: 78523-3 Heart Rate 1: 86 bpm Height: 5'3" Respiratory Rate: 20 bpm SpO2: 96% Tempera ture: 36.5 (C) / 97.7 (F) Weight: 130 lbs 03/17/2016 Blood Pressure 1: 116/74 Code: 8480-6 BMI: 23.4 Code: 37959-4 Heart Rate 1: 84 bpm Height: 5'3" Respiratory Rate: 20 bpm SpO2: 97% Tempera ture: 36.8 (C) / 98.3 (F) Weight: 132 lbs 11/13/2015 Blood Pressure 1: 124/78 Code: 8480-6 BMI: 23.4 Code: 52275-9 Heart Rate 1: 88 bpm Height: 5'3" Respiratory Rate: 24 bpm SpO2: 98% Tempera ture: 36.8 (C) / 98.2 (F) Weight: 132 lbs 06/12/2015 Blood Pressure 1: 126/78 Code: 8480-6 BMI: 23.6 Code: 53783-0 Heart Rate 1: 80 bpm Height: 5'3" Respiratory Rate: 20 bpm Temperature: 36 .9 (C) / 98.4 (F) Weight: 133 lbs 04/22/2015 Blood Pressure 1: 126/68 Code: 8480-6 BMI: 23.6 Code: 89810-7 Heart Rate 1: 80 bpm Height: 5'3" Respiratory Rate: 20 bpm Temperature: 36 .6 (C) / 97.9 (F) Weight: 133 lbs 03/24/2015 Blood Pressure 1: 116/66 Code: 8480-6 BMI: 22.9 Code: 18943-5 Heart Rate 1: 74 bpm Height: 5'3" Respiratory Rate: 20 bpm Temperature: 36 .4 (C) / 97.6 (F) Weight: 129 lbs 02/27/2015 Blood Pressure 1: 106/64 Code: 8480-6 BMI: 22.7 Code: 32726-1 Heart Rate 1: 74 bpm Height: 5'3" Respiratory Rate: 20 bpm Temperature: 36 .8 (C) / 98.2 (F) Weight: 128 lbs 06/13/2014 Blood Pressure 1: 104/66 Code: 8480-6 BMI: 22.7 Code: 37524-2 Heart Rate 1: 84 bpm Height: 5'3" Respiratory Rate: 20 bpm Temperature: 37 .0 (C) / 98.6 (F) Weight: 128 lbs 04/18/2014 Blood Pressure 1: 112/62 Code: 8480-6 BMI: 22.0 Code: 22297-9 Heart Rate 1: 82 bpm Height: 5'3" Respiratory Rate: 18 bpm Temperature: 36 .4 (C) / 97.6 (F) Weight: 124 lbs 12/05/2013 Blood Pressure 1: 106/70 Code: 8480-6 BMI: 23.7 Code: 37315-4 Heart Rate 1: 84 bpm Height: 5'3" [...] 1: 126/88 Code: 8480-6 BMI: 22.3 Code: 23394-0 Heart Rate 1: 96 bpm Height: 5'4" Respiratory Rate: 20 bpm Temperature: 37 .7 (C) / 99.9 (F) Weight: 130 lbs 11/29/2012 Blood Pressure 1: 122/76 Code: 8480-6 BMI: 23.0 Code: 64792-7 Heart Rate 1: 84 bpm Height: 5'4" Respiratory Rate: 20 bpm Temperature: 36 .9 (C) / 98.4 (F) Weight: 134 lbs 09/26/2012 Blood Pressure 1: 114/76 Code: 8480-6 BMI: 23.0 Code: 27678-2 Heart Rate 1: 84 bpm Height: 5'4" Respiratory Rate: 20 bpm Temperature: 37 .3 (C) / 99.1 (F) Weight: 134 lbs 07/11/2012 Blood Pressure 1: 126/78 Code: 8480-6 BMI: 23.7 Code: 24432-8 Heart Rate 1: 76 bpm Height: 5'4" Respiratory Rate: 20 bpm Temperature: 37 .1 (C) / 98.7 (F) Weight: 138 lbs 02/02/2012 Blood Pressure 1: 108/70 Code: 8480-6 BMI: 23.2 Code: 97037-0 Heart Rate 1: 88 bpm Height: 5'4" Respiratory Rate: 20 bpm Temperature: 36 .4 (C) / 97.6 (F) Weight: 135 lbs 08/17/2011 Blood Pressure 1: 108/70 Code: 8480-6 BMI: 23.2 Code: 68719-0 Heart Rate 1: 72 bpm Height: 5'4" Respiratory Rate: 20 bpm Temperature: 36 .8 (C) / 98.2 (F) Weight: 135 lbs 10/14/2010 Blood Pressure 1: 120/72 Code: 8480-6 BMI: 23.4 Code: 49096-5 Heart Rate 1: 78 bpm Height: 5'3" Temperature: 36.9 (C) / 98.5 (F) Weight: 132 lbs Functional Status No Functional Status data Reason For Visit Reason For Visit Effective Dates Notes Medication Monitoring 02/14/2019 follow up 01/16/2019 ~generic [...] Codes Date () OFFICE/OUTPATIENT VISIT EST Diagnosis: Insomnia[ICD10: G47.00] Diagnosis: Thrombocytosis[ICD10: D47.3] Alexandra CARROLL [employer] CPT-4: 21897 02/14/2019 ([id number]) OFFICE/OUTPATIENT VISIT EST Diagnosis: Small bowel obstruction[ICD10: K56.609] Diagnosis: FLU VACCINE[ICD10: Z23] Diagnosis: PNEUMOCOCCAL VACCINE[ICD10: Z23] Diagnosis: Onychomycosis[ICD10: B35.1] Alexandra FORDE S. Billie KUNZ [employer] CPT-4: 97733 01/16/2019 ([id number]) OFFICE/OUTPATIENT VISIT EST Diagnosis: Diarrhea, unspecified[ICD10: R19.7] Diagnosis: Radiculopathy, lumbosacral region[ICD10: M54.17] Alexandra CARROLL [employer] CPT-4: 79364 09/18/2018 OFFICE/OUTPATIENT VISIT EST Diagnosis: Other intervertebral disc degeneration, lumbar region[ICD10: M51.36] Diagnosis: Sacroiliitis, not elsewhere classified[ICD10: M46.1] Diagnosis: Obstructive sleep apnea (adult) (pediatric)[ICD10: G47.33] Alexandra CARROLL [employer] [facility] CPT-4: 72586 08/10/2018 ([id number]) OFFICE/OUTPATIENT VISIT EST Diagnosis: Fracture of unspecified part of left clavicle, subsequent encounter for fracture with routine healing[ICD10: S42.002D] Diagnosis: Cervicalgia[ICD10: M54.2] Diagnosis: Radiculopathy, lumbosacral region[ICD10: M54.17] Alexandra CARROLL [employer] [facility] CPT-4: 77658 03/27/2018 ([id number]) OFFICE/OUTPATIENT VISIT EST Diagnosis: Fracture of unspecified part of left clavicle, subsequent encounter for fracture with routine healing[ICD10: S42.002D] Diagnosis: Other intervertebral disc degeneration, lumbar region[ICD10: M51.36] Diagnosis: Unspecified fracture of first thoracic vertebra, subsequent encounter for fracture with routine healing[ICD10: S22.019D] Diagnosis: Unspecified fracture of second thoracic vertebra, subsequent encounter for fracture with routine healing[ICD10: S22.029D] Alexandra CARROLL [employer] [facility] CPT-4: 16272 02/23/2018 ([id number]) OFFICE/OUTPATIENT VISIT EST Diagnosis: Fracture of unspecified part of left clavicle, subsequent encounter for fracture with routine healing[ICD10: S42.002D] Diagnosis: Unspecified fracture of first thoracic vertebra, subsequent encounter for fracture with routine healing[ICD10: S22.019D] Diagnosis: Unspecified fracture of second thoracic vertebra, subsequent encounter for fracture with routine healing[ICD10: S22.029D] Alexandrateja CARROLL [employer] [facility] CPT-4: 74265 01/24/2018 ([id number]) OFFICE/OUTPATIENT VISIT EST Diagnosis: Migraine, unspecified, not intractable, without status migrainosus[ICD10: G43.909] Alexandra CARROLL [facility] CPT - 4: 57555 01/17/2018 ([id number]) OFFICE/OUTPATIENT VISIT EST Diagnosis: Hematuria, unspecified[ICD10: R31.9] Diagnosis: Other intervertebral disc degeneration, lumbar region[ICD10: M51.36] Diagnosis: Retention of urine, unspecified[ICD10: R33.9] Alexandra CARROLL [facility] CPT-4: 80696 12/29/2017 OFFICE/OUTPATIENT VISIT EST Diagnosis: Fracture of [...] Diagnosis: Low back pain[ICD10: M54.5] Alexandra KUNZ [facility] CPT-4: 83278 12/06/2017 ([id number]) OFFICE/OUTPATIENT VISIT EST Diagnosis: Cellulitis of right upper limb[ICD10: L03.113] Diagnosis: Allergy status to other antibiotic agents status[ICD10: Z88.1] Vandana CARROLL [facility] CPT-4: 97992 12/01/2017 ([id number]) OFFICE/OUTPATIENT VISIT EST Diagnosis: Cellulitis of right upper limb[ICD10: L03.113] Diagnosis: Allergy status to other antibiotic agents status[ICD10: Z88.1] Vandana Cavazos. DEANNE [facility] CPT-4: 24530 11/30/2017 ([id number]) OFFICE/OUTPATIENT VISIT EST Diagnosis: Cellulitis of right upper limb[ICD10: L03.113] Vandana Cavazos. DEANNE SALGUERO [facility] CPT-4: 81668 11/29/2017 ([id number]) OFFICE/OUTPATIENT VISIT EST Diagnosis: Cellulitis of right upper limb[ICD10: L03.113] Vandana CARROLL DO [facility] CPT-4: 22283 11/28/2017 ([id number]) OFFICE/OUTPATIENT VISIT EST Diagnosis: Other intervertebral disc degeneration, lumbar region[ICD10: M51.36] Diagnosis: Other retention of urine[ICD10: R33.8] Diagnosis: Primary insomnia[ICD10: F51.01] Diagnosis: Other spondylosis, site unspecified[ICD10: M47.899] Alexandra CARROLL DO [facility] CPT-4: 47837 11/17/2017 ([id number]) OFFICE/OUTPATIENT VISIT EST Diagnosis: Radiculopathy, lumbosacral region[ICD10: M54.17] Diagnosis: Other retention of urine[ICD10: R33.8] Diagnosis: Urinary tract infection, site not specified[ICD10: N39.0] Vandana CARROLL DO [facility] CPT-4: 05785 10/10/2017 ([id number]) PREV VISIT EST AGE 40-64 Diagnosis: Encounter for general adult medical examination without abnormal findings[ICD10: Z00.00] Diagnosis: Other intervertebral disc degeneration, lumbar region[ICD10: M51.36] Diagnosis: Hypothyroidism, unspecified[ICD10: E03.9] Diagnosis: Mixed hyperlipidemia[ICD10: E78.2] Alexandra CARROLL DO [facility] CPT-4: 17778 06/22/2017 ([id number]) OFFICE/OUTPATIENT VISIT EST Diagnosis: URI, ACUTE[ICD10: J06.9] Alexandra Danelawandavioletta SHAFFERALEXANDRA Ty ROMAN [facility] CPT-4: 84121 03/28/2017 OFFICE/OUTPATIENT VISIT EST Diagnosis: Acute sinusitis, unspecified[ICD10: J01.90] Vandana CARROLL DO [facility] CPT-4: 23655 02/16/2017 ([id number]) OFFICE/OUTPATIENT VISIT EST Diagnosis: Migraine, unspecified, not intractable, without status migrainosus[ICD10: G43.909] Alexandra Danejames ALEXANDRA Ty CARROLL DO [facility] CPT - 4: 16331 11/02/2016 ([id number]) OFFICE/OUTPATIENT VISIT EST Diagnosis: Pain in thoracic spine[ICD10: M54.6] Diagnosis: Chondrocostal junction syndrome [Tietze][ICD10: M94.0] Alexandra CARROLL [facility] CPT-4: 71226 09/06/2016 OFFICE/OUTPATIENT VISIT EST Diagnosis: Acute sinusitis, unspecified[ICD10: J01.90] Vidya Kaleb [facility] 63183 08/16/2016 ([id number]) OFFICE/OUTPATIENT VISIT EST Diagnosis: Primary insomnia[ICD10: F51.01] Diagnosis: Cramp and spasm[ICD10: R25.2] Diagnosis: Major depressive disorder, single episode, mild[ICD10: F32.0] Alexandra CARROLL [facility] CPT-4: 27928 07/19/2016 ([id number]) OFFICE/OUTPATIENT VISIT EST Diagnosis: Obstructive sleep apnea (adult) (pediatric)[ICD10: G47.33] Diagnosis: Other fatigue[ICD10: R53.83] Diagnosis: Allergic rhinitis due to pollen[ICD10: J30.1] Diagnosis: Headache[ICD10: R51] Alexandra BURLESON [employer] [facility] CPT-4: 64864 07/06/2016 ([id number]) OFFICE/OUTPATIENT VISIT EST Diagnosis: Acute recurrent sinusitis, unspecified[ICD10: J01.91] Diagnosis: Allergic rhinitis due to pollen[ICD10: J30.1] [facility]: 42270 06/15/2016 ([id number]) OFFICE/OUTPATIENT VISIT EST Diagnosis: Migraine, unspecified, not intractable, without status migrainosus[ICD10: G43.909] Diagnosis: Allergic rhinitis, unspecified[ICD10: J30.9] Nae Mckay ALEXANDRA CARROLL [facility] CPT-4: 94125 04/09/2016 ([id number]) OFFICE/OUTPATIENT VISIT EST Diagnosis: Hypothyroidism, unspecified[ICD10: E03.9] Diagnosis: Other fatigue[ICD10: R53.83] Diagnosis: Mixed hyperlipidemia[ICD10: E78.2] Diagnosis: Major depressive disorder, single episode, mild[ICD10: F32.0] Alexandra CARROLL DO [facility] CPT-4: 95667 03/17/2016 ([id number]) OFFICE/OUTPATIENT VISIT EST Diagnosis: Insomnia, unspecified[ICD10: G47.00] Diagnosis: Encounter for therapeutic drug level monitoring[ICD10: Z51.81] Nae CARROLL DO [facility] CPT-4: 31848 11/13/2015 ([id number]) OFFICE/OUTPATIENT VISIT EST Diagnosis: Hematuria, unspecified[ICD10: R31.9] Alexandra CARROLL DO [facility] CPT-4: 11583 05/05/2015 ([id number]) OFFICE/OUTPATIENT VISIT EST Diagnosis: Other intervertebral disc degeneration, lumbar region[ICD10: M51.36] Diagnosis: Radiculopathy, lumbosacral region[ICD10: M54.17] Alexandra CARROLL DO [facility] CPT-4: 74276 04/22/2015 ([id number]) OFFICE/OUTPATIENT VISIT EST Diagnosis: Low back pain[ICD10: M54.5] Diagnosis: Recurrent and persistent hematuria with unspecified morphologic changes[ICD10: N02.9] Alexandra CARROLL DO [facility] CPT-4: 20965 03/24/2015 ([id number]) OFFICE/OUTPATIENT VISIT EST Diagnosis: Acute sinusitis, unspecified[ICD10: J01.90] Diagnosis: Headache[ICD10: R51] Diagnosis: Retention of urine, unspecified[ICD10: R33.9] Diagnosis: Hypothyroidism, unspecified[ICD10: E03.9] Alexandra CARROLL DO [facility] CPT-4: 97048 02/27/2015 ([id number]) PREV VISIT EST AGE 40-64 Diagnosis: ROUTINE MEDICAL EXAM[ICD9: V70.0] Diagnosis: HYPOTHYROIDISM[ICD9: 244.9] Diagnosis: HYPERLIPIDEMIA NEC/NOS[ICD9: 272.4] Alexandra CARROLL DO [facility] CPT-4: 36015 06/13/2014 ([id number]) OFFICE/OUTPATIENT VISIT EST Diagnosis: CEPHALGIA[ICD9: 784.0] Diagnosis: Nausea[ICD9: 787.02] Shalini CavazosAri DEANNE SALGUERO [facility] CPT-4: 39485 04/18/2014 ([id number]) OFFICE/OUTPATIENT VISIT EST Diagnosis: INSOMNIA NOS[ICD9: 780.52] Diagnosis: Complicated grieving[ICD9: 309.0] Alexandra Velalawandavioletta SHAFFERLIN Dani CavazosAri DANENDVIOLETTA SALGUERO [facility] CPT-4: 35221 12/05/2013 ([id number]) OFFICE/OUTPATIENT VISIT EST Diagnosis: Muscle twitch[ICD9: 781.0] Diagnosis: ALLERGIC RHINITIS[ICD9: 477.9] Alexandra Velalawandavioletta SHAFFERALEXANDRA Macy Ari DEANNE SALGUERO [facility] CPT-4: 16764 06/05/2013 ([id number]) OFFICE/OUTPATIENT VISIT EST Diagnosis: DEPRESSIVE DISORDER NEC[ICD9: 311] Alexandra Danelawandavioletta MARK INGRID S. DANENDVIOLETTA SALGUERO [facility] CPT-4: 36894 05/22/2013 OFFICE/OUTPATIENT VISIT EST Diagnosis: Shingles[ICD9: 053.9] Alexandra SHAFFERLINE MacyAri DEANNE SALGUERO [facility] CPT-4: 19008 04/05/2013 ([id number]) OFFICE/OUTPATIENT VISIT EST Diagnosis: DEPRESSIVE DISORDER NEC[ICD9: 311] Alexandra Danelawandavioletta MARK QUINTERO S. DANENDER [employer] CPT-4: 31039 03/26/2013 ([id number]) OFFICE/OUTPATIENT VISIT EST Diagnosis: Complicated grieving[ICD9: 309.0] Alexandra Danejames Louise MacyAri DEANNE SALGUERO [facility] CPT-4: 31173 03/06/2013 ([id number]) OFFICE/OUTPATIENT VISIT EST Diagnosis: CEPHALGIA, TENSION[ICD9: 307.81] Diagnosis: MIGRAINE NOS/NOT INTRCBL[ICD9: 346.90] Diagnosis: Cervicalgia[ICD9: 723.1] Alexandra FORDE MacyAri GIULIA ROMAN [employer] CPT-4: 59116 11/29/2012 ([id number]) OFFICE/OUTPATIENT VISIT EST Diagnosis: Jaw pain[ICD9: 784.92] Diagnosis: Shoulder pain[ICD9: 719.41] Diagnosis: Family history of premature coronary artery disease[ICD9: V17.3] Alexandra CARROLL [facility] CPT-4: 24564 09/26/2012 ([id number]) OFFICE/OUTPATIENT VISIT EST Diagnosis: ABDOMINAL PAIN[ICD9: 789.00] Diagnosis: Constipation[ICD9: 564.00] Diagnosis: Hematuria[ICD9: 599.70] Alexandra [facility]ON [facility] CPT-4: 27672 07/11/2012 ([id number]) OFFICE/OUTPATIENT VISIT EST Diagnosis: ANEMIA NOS[ICD9: 285.9] Alexandra BURLESON [facility] CPT-4: 65403 02/17/2012 ([id number]) PREV VISIT EST AGE 40-64 Diagnosis: ROUTINE MEDICAL EXAM[ICD9: V70.0] Diagnosis: HYPOTHYROIDISM[ICD9: 244.9] Diagnosis: HYPERLIPIDEMIA NEC/NOS[ICD9: 272.4] Diagnosis: Obstructive sleep apnea[ICD9: 327.23] Alexandra CARROLL [facility] CPT-4: 70006 02/02/2012 ([id number]) OFFICE/OUTPATIENT VISIT EST Diagnosis: URINARY TRACT INFECTION[ICD9: 599.0] [facility]: 08810 08/27/2011 ([id number]) OFFICE/OUTPATIENT VISIT EST Diagnosis: URINARY TRACT INFECTION[ICD9: 599.0] Diagnosis: ACUTE CYSTITIS[ICD9: 595.0] Alexandra FORDE [facility] CPT-4: 26054 08/17/2011 OFFICE/OUTPATIENT VISIT EST Diagnosis: URINARY TRACT INFECTION[ICD9: 599.0] Steph MARINQUE BLAKE [facility] C[facility]: 59422 10/14/2010 Plan of Care Planned Activity Notes Codes Status Date Visit Diagnosis Plan: Thrombocytosis Discussion: Check iron [...] : G47.00 02/14/2019 Appointment: Alexandra Carroll WPtel: [address] [place], [place] [phone] US CANCELED 02/12/2019 Visit Diagnosis Plan: Onychomycosis Discussion: Send n ail for culture ICD-9 : 110.1 ICD-10 : B35.1 01/16/2019 Visit Diagnosis Plan: Small bowel obstruction Discussi on: S/P surgery in September with postop complications of wound dehiscence ICD-9 : 560.9 ICD-10 : K56.609 01/16/2019 Appointment: Alexandra Carroll WPtel: [address] [place], [place] [phone] US MEDICATION REVIEW 01/16/2019 Appointment: Alexandra Carroll WPtel: [address] [place], [place] [phone] US CANCELED 12/12/2018 Visit Diagnosis Plan: Diarrhea, unspecified Discussion : Due for updated colonoscopy ICD-9 : 787.91 ICD-10 : R19.7 09/18/2018 Visit Diagnosis Plan: Radiculopathy, lumbosacral regio n Discussion: Had left SI joint injection by Dr. Baig about 2 weeks ago and has fwup with him ICD-9 : 724.4 ICD-10 : M54.17 09/18/2018 Appointment: Alexandra Carroll WPtel: [address] [place], [place] [phone] US PATIENT CONSULT 15 09/18/2018 Care Plan: Referral Order SNOMED-CT : 30 [id number] Pending 09/18/2018 Visit Diagnosis Plan: Other intervertebral [...] Visit Diagnosis Plan: Sacroiliitis, not elsewhere clas sifdanny Discussion: Referral for possible SI joint injection vs facet joint vs other injections or modalities--Dr. Levin has tried sulindac, relafen, and now on etolodac--recommend she add a daily pepcid or zantac for GI protection ICD-9 : 720.2 ICD-10 : M46.1 08/10/2018 Appointment: Alexandra Carroll WPtel: [address] [place], [place] [phone] US MEDICATION REVIEW 08/10/2018 Care Plan: Referral Order SNOMED-CT : 30 [id number] Pending 08/10/2018 Appointment: Alexandra Carroll WPtel: [facility] US CANCELED 04/17/2018 Visit Diagnosis Plan: Fracture [...] : M54.2 03/27/2018 Appointment: Alexandra Carroll WPtel: [facility] US FOLLOW UP 03/27/2018 Visit Diagnosis Plan: [...] ICD-10 : S42.002D 02/23/2018 Appointment: Alexandra Carrolltel: [address] [place] [address] US FOLLOW UP 02/23/2018 Patient Education: gabapentin- [employer] Coupon [phone] [email or web address] Completed 02/23/2018 Visit Diagnosis Plan: Fracture of unspec ified part of left clavicle, subsequent encounter for fracture with routine healing Discussion: Hold on PT and do home stretches Trial of gabapentin Recheck 4 weeks ICD-9 : V54.11 ICD-10 : S42.002D 01/24/2018 Appointment: Alexandra Carrolltel: [address] [place] [address] US FOLLOW UP 01/24/2018 Visit Diagnosis Plan: Migraine, unspecif ied, not intractable, without status migrainosus Discussion: Toradol and phenergan given ICD-9 : 346.90 ICD-10 : G43.909 01/17/2018 Appointment: Alexandra Carrolltel: [address] [place] [address] ACUTE ILLNESS 01/17/2018 Visit Diagnosis Plan: Retention [...] ICD-10 : M51.36 12/29/2017 Appointment: Alexandra Carrolltel: [address] [place], [place] [phone] ACUTE ILLNESS 12/29/2017 Care Plan: US EXAM PELVIC COMPLETE LOINC : 31238-3 Pending 12/29/2017 Care Plan: ECHO EXAM OF ABDOMEN LOINC : 72991-8 Pending 12/29/2017 Care Plan: Referral Order SNOMED-CT : 30 [id number] Pending 12/29/2017 Visit Diagnosis Plan: Fracture of unspec ified part of left clavicle, subsequent encounter for fracture with routine healing Discussion: Start PT in another 7-14 days Off work for the rest of this week then may return to part-time work on 12/12/17 Fwup in 4 weeks ICD-9 : V54.11 ICD-10 : S42.002D 12/06/2017 Appointment: Alexandra Carroll WPtel: [phone] [facility] US FOLLOW UP 12/06/2017 Patient Education: [...] ICD-10 : Z88.1 12/01/2017 Appointment: Vandana Crowe [address] [place], [place] [phone] US FOLLOW UP 12/01/2017 Patient Education: Patient [...] : Z88.1 11/30/2017 Appointment: Vandana Crowe [address] [facility] 11/30/2017 Patient Education: Patient Medication Summary [...] : L03.113 11/29/2017 Appointment: Vandana Crowe [address] [facility] FOLLOW UP 11/29/2017 Patient Education: Patient [...] : L03.113 11/28/2017 Appointment: Vandana Crowe [address] [facility] ACUTE ILLNESS 11/28/2017 Patient Education: Patient [...] M51.36 11/17/2017 [facility]ment[phone] [facility] [facility] 11/17/2017 Patient Education: Patient Medication Summary Completed 11/17/2017 Care Plan: Referral Order SNOMED-CT : 30 [id number] Pending 11/17/2017 Patient Education: Patient Medication Summary Completed 10/12/2017 Care Plan: MRI LUMBAR SPINE W/O DYE LOIN C : 48800-2 Pending 10/12/2017 Care Plan: X-RAY EXAM L-S SPINE 2/3 VWS LOINC : 70392-5 Pending 10/11/2017 Visit Diagnosis Plan: Urinary tract infection, site [...] [facility] with inversion table. instructed patient to go to ED immediately if she develops any incontinence with bowel or bladder. patient verbalized understanding. if no improvement, will need updated MRI and referral to surgeon. ICD-9 : 724.4 ICD-10 : M54.17 10/10/2017 Visit Diagnosis Plan: Other retention of urine [...] ICD-9 : 788.29 ICD-10 : R33.8 10/10/2017 Appointment: Vandana Crowe [address] [place] [address] ACUTE ILLNESS 10/10/2017 Patient Education: Patient Medication Summary Completed 10/10/2017 Appointment: Vandana Crowe [address] [place] [address] ACUTE ILLNESS 08/01/2017 Visit Diagnosis Plan: Other intervertebral disc degene ration, lumbar region Discussion: Core strengtheing and inversion table and if worsening will need updated MRI ICD-9 : 722.52 ICD-10 : M51.36 06/22/2017 Visit Diagnosis Plan: Encounter for [facility] adult medical examination without abnormal findings Discussion: Lab dis ussed Follow Up: 6 months ICD-9 : V70.0 ICD-10 : Z00.00 06/22/2017 Appointment: Alexandra Carroll WPtel: [phone] Annual Well Visit 06/22/2017 Patient Education: Patient Medication Summary Completed 06/22/2017 Patient Education: Patient Medication Summary Completed 06/16/2017 Care Plan: COMPREH[place] METAB[place]IC [place] : 40262-2 Pending 06/16/2017 Care Plan: ASSAY THYROID STIM HORMONE Pen ding 06/16/2017 Care Plan: ASSAY OF FREE THYROXINE Pendin g 06/16/2017 Care Plan: LIPID PANEL LOINC : 22009-9 Pending 06/16/2017 Care Plan: CBC Pending 06/16/2017 [...] Fluids... 03/28/2017 Appointment: Alexandra Carroll WPtel: [phone] ACUTE ILLNESS 03/28/2017 Patient Education: Patient Medication Summary Completed 03/28/2017 Visit Diagnosis Plan: Acute sinusitis, unspecified Dis cussion: cefdinir and medrol dose pack prescribed to be taken as directed. tylenol/ibuprofen as needed. educated on importance of taking singulair or zyrtec daily to prevent worsening symptoms. keep hydrated. ICD-9 : 461.9 ICD-10 : J01.90 02/16/2017 Appointment: Vandana Crowe [address] [place] [address] ACUTE ILLNESS 02/16/2017 Patient Education: Patient Medication Summary Completed 02/16/2017 Appointment: Alexandra Carroll WPtel: [facility] [address] INJECTION 11/02/2016 Patient Education: Patient Medication Summary Completed 11/02/2016 Visit Diagnosis Plan: Pain in thoracic spine Discussio n: Increase flexeril to 10mg po BID Add Mobic 15mg po daily Towel stretch May see chiropractor to adjust ribs Notify if persists or worsening ICD-9 : 724.1 ICD-10 : M54.6 09/06/2016 Appointment: Alexandra Carroll WPtel: [phone] ACUTE ILLNESS 09/06/2016 Patient Education: Patient Medication Summary Completed 09/06/2016 Visit Plan: Due to hx, ERx Cefdinir and Prednisone (discussed risks for both) Given bottle for nasal saline rinses Tylenol/Ibuprofen prn pain/fever Fluids/rest Discussed s/s of worsening, RTC if no improvement 08/16/2016 Appointment: Vidya Manuel WPtel: [address] [place], [place] [id number] ACUTE ILLNESS 08/16/2016 Patient Education: Patient Medication [...] : F32.0 07/19/2016 Appointment: Alexandra Carroll WPtel: [address] [place], [place] [phone] 07/15 confirmed`sl FOLLOW UP 07/19/2016 Patient [...] : J30.1 07/06/2016 Appointment: Alexandra Carroll WPtel: [address] [place], [place] [phone] 07/05 confirmed-sp FOLLOW UP 07/06/2016 Patient Education: [...] : J01.91 06/15/2016 Appointment: Alexandra Carroll WPtel: [address] [place], [place] [phone] 06/14 lm ~ ACUTE ILLNESS 06/15/2016 Patient Education: Patient Medication Summary Completed 06/15/2016 Visit Diagnosis Plan: Migraine, unspecif ied, not intractable, without status migrainosus Discussion: Injection as above Drink ple nty of water No driving x 6 hours Rest No OTC nsaids today Follow up PRN Refill called of claritin-d ICD-9 : 346.90 ICD-10 : G43.909 04/09/2016 Appointment: Nae Mckay [address] [place] [address] ACUTE ILLNESS 04/09/2016 Patient Education: Patient Medication [...] : R53.83 03/17/2016 Appointment: Alexandra Carroll WPtel: [address] [place], [place] [phone] 03/16 nvm~sl 03/17 confirmed`sl FOLLOW UP 0 03/17/2016 Patient Education: Patient Medication Summary Completed 03/17/2016 Appointment: Alexandra Carroll WPtel: [address] [place], [place] [id number] 03/11 lm~sl 03/15lm `sl 03/15 confirmed`sl FOLLOW [...] same robert. If working well, continue the u6wdybt office visits. Call if not working well, and will restart xanax at for sleep. 11/13/2015 Appointment: Nae Mckay [address] [place], [place] [id number] 11/11 confirmed~sl FOLLOW UP 11/13/2015 Patient Education: Patient Medication Summary Completed 11/13/2015 Appointment: Alexandra Carroll WPtel: [address] [place], [place] [phone] Suture Removal 06/23/2015 Patient Education: Patient Medication Summary Completed 06/23/2015 Visit Plan: Removal of lesion above usin g 3-0 punch biopsy Return in 10 days for suture removal 06/12/2015 Appointment: Alexandra Carroll WPtel: [address] [place], [place] [phone] 06/10 lm ~sl ACUTE ILLNESS 06/12/2015 Patient Education: Patient Medication Summary Completed 06/12/2015 Referral: Soy Garcia WPtel: [facility] Schedule patient around lunch time and 3 weeks from 04/22/2015 ~ Spoke with Kiesha at Dr. Sandoval Office and 04/24/15 and scheduled the patient ~sl 04/24/15 Patient is informed~ 06/03 Patient canceled the appointment ~ Patient did not show up for scheduled appointment-sp Appoint ment Requested 05/21/2015 Appointment: Alexandra Carroll WPtel: [address] [place], [place] [phone] [facility] 05/05/2015 Patient Education: Patient Medication Summary Completed 05/05/2015 Visit Plan: Starts PT today Schedule wit h Dr. 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 and will get checked then 04/22/2015 Appointment: Alexandra Carroll WPtel: [address] [place], [place] [phone] 04/21 confirmed~lb ACUTE ILLNESS 04/22/2015 Patient Education: Patient Medication Summary Completed 04/22/2015 Referral: Lincoln Hernandez WPtel: [address] [place] [address] Referral Initiated 04/10/2015 Patient Education: Patient Medication Summary Completed 04/09/2015 Visit Plan: Start with lumosacral spine x-ray--will likely need MRI of L/S spine x-ray Needs urology--has had to have bladder stretched in past Tivorbex 03/24/2015 Appointment: Alexandra Carroll WPtel: [address] [place], [place] [phone] 03/21/15 appt confirmed cn ACUTE ILLNESS 03/24 Patient Education: Patient Medication Summary Completed 03/24/2015 Visit Plan: Saline nasal flushes prn. Ty lenol/Motrin prn headache. Notify if persists/symptoms worsening. Cefuroxime to cover both sinuses and UTI Culture urine Check lab 02/27/2015 Appointment: Alexandra Carroll WPtel: [address] [place], [place] [phone] 02/26/15 vm to confirm and need new insu meri on file is inactive cn....02/27/15 appt confirmed cn ACUTE ILLNESS 015 Patient Education: Patient Medication Summary Completed 02/27/2015 Visit Plan: Lab discussed Stop simvastat in Check lipids in 6mos Continue all other meds at current dose Had Pap and Mammo 3 weeks ago 06/13/2014 Appointment: Alexandra Carroll WPtel: [address] [place], [place] [phone] Annual Well Visit 06/13/2014 Patient Education: Patient Medication Summary Completed 06/13/2014 Appointment: Shalini Walters WPtel: [address] [place] [address] ACUTE ILLNESS 04/18/2014 Patient Education: Patient Medication Summary Completed 04/18/2014 Visit Plan: Check lab in May then fwup Can try decreasing xanax to 1mg q HS with melatonin 5-10mg q HS 12/05/2013 Appointment: Alexandra Carroll WPtel: [address] [place] [address] 12/04 FOLLOW UP 12/05/2013 Patient Education: Patient Medication Summary Completed 12/05/2013 Appointment: Alexandra Carroll WPtel: [address] [place] [address] FOLLOW UP 06/05/2013 Patient Education: Patient Medication Summary Completed 06/05/2013 Appointment: Alexandra Carroll WPtel: [address] [place] [address] FOLLOW UP 05/22/2013 Patient Education: Patient Medication Summary Completed 05/22/2013 Visit Plan: Zovirax for 2wks Notify if p ain worsens or if persists 04/05/2013 Appointment: Alexandra Carroll WPtel: [address] [place] [address] ACUTE ILLNESS 04/05/2013 Patient Education: Patient Medication Summary Completed 04/05/2013 Visit Plan: Keep Wellbutrin at current d ose Pt did see for counseling 03/26/2013 Appointment: Alexandra Carroll WPtel: [address] [place] [address] ACUTE ILLNESS 03/26/2013 Patient Education: Patient Medication Summary Completed 03/26/2013 Visit Plan: Continue citalopram at curre nt dose Increase xanax to 1-2mg q HS for sleep Add Wellbutrin Sr 100mg q AM Start Counseling 03/06/2013 Appointment: Alexandra Carroll WPtel: [address] [place] [address] ACUTE ILLNESS 03/06/2013 Patient Education: Patient Medication Summary Completed 03/06/2013 Appointment: Alexandra Carrolltel: [address] [place] [address] ACUTE ILLNESS 11/29/2012 Patient Education: Patient Medication Summary Completed 11/29/2012 Appointment: Alexandra Carroll WPtel: [address] [place] [address] ACUTE ILLNESS 09/26/2012 Patient Education: Patient Medication Summary Completed 09/26/2012 Appointment: Alexandra Carrolltel: [address] [place] [address] ACUTE ILLNESS 07/11/2012 Patient Education: Patient Medication Summary Completed 07/11/2012 Appointment: Alexandra Carrolltel: [address] [place] [address] LAB 02/17/2012 Patient Education: Patient Medication Summary Completed 02/17/2012 Visit Plan: Check fasting lab Start annie y ca with Vit D Cont CPAP Mammo up-to-date Hemoccult card given 02/02/2012 Appointment: Alexandra Carrolltel: [address] [place] [address] PHYSICAL 02/02/2012 Patient Education: Patient Medication Summary Completed 02/02/2012 Appointment: Alexandra Carrolltel: [address] [place] [address] [place] UA 08/27/2011 Patient Education: Patient Medication Summary Completed 08/27/2011 Visit Plan: Levaquin and Diflucan for 1w k Then cipro QOD for prophylaxis 08/17/2011 Appointment: Alexandra Carrolltel: [address] [place] [address] FOLLOW UP 08/17/2011 Patient Education: Patient Medication Summary Completed 08/17/2011 Appointment: Alexandra Carroll WPtel: [phone] [facility] UA 12/28/2010 Patient Education: Patient Medication Summary Completed 12/28/2010 Appointment: Alexandra Carroll WPtel: [address] [place], [place] [phone] UA 11/09/2010 Patient Education: Patient Medication Summary Completed 11/09/2010 Appointment: Alexandra Carroll WPtel: [address] [place], [place] [phone] UA 10/29/2010 Patient Education: Patient Medication Summary Completed 10/29/2010 Appointment: Steph Bowen WPtel: [address] [place], [place] [phone] ACUTE ILLNESS 10/14/2010 Patient Education: Patient Medication Summary Completed 10/14/2010 Referral: Florian Baig WPtel: [facility] [address] [place] Referral Initiated Referral: Luis Enrique Jasso WPtel: [facility] [address] [place] Referral Appointment Requested Referral: Florian Baig WPtel: [facility] [address] [place] Referral Appointment Requested Referral: Caleb Glaser WPtel: [phone] [place] Referral Appointment Requested Referral: Florian Baig WPtel: [facility] [address] [id number] [place] Referral Initiated Referral: Florian Baig WPtel: [facility] [address] 1 [id number] [place] Referral Appointment Requested Instructions Comment . [...] same robert. If working well, continue the [id number] office visits. Call if not working well, and will restart xanax at HS for sleep. . Removal of lesion above using 3-0 punc h biopsy Return in 10 days for suture removal . Starts PT today Schedule with Dr. 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
--- OUTSIDE RECORDS SUMMARY | 2019-09-02 00:32 | XMS REPORT | CCD ---
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 Name Role Phone Alexandra Carroll D.O., PP Unavailable CCM Unavailable Summary Purpose Interface Exchange Insurance Providers Payer name Policy type / Coverage type Covered alliance party ID Effective Begin Date Effective End Date [facility] [employer] Insurance [id number] 2017 Un known Family History Family History data not found Social History Social History Element Codes Description Effective Dates Tobacco history SNOMED CT: 438991118 Nonsmoker 10/14/2010 Allergies, Adverse Reactions, Alerts Substance Reaction Codes Entered Date Inactivated Date Status MORPHINE SULFATE RxNorm: 2502967 10/14/2010 No Inactive Da te Active CEPHALOSPORINS [...] Fill Instructions cyclobenzaprine 10 mg tablet RxNorm: 048292 1 Tablet(s) Oral three times a day as needed for muscle spasm 02/12/2019 02/12/2019 Inactive Xanax 1 mg tablet RxNorm: 852414 1-2 Tablet(s) Oral e very night at bedtime as needed for sleep 02/09/2019 03/10/2019 Active Generic For:LAVELLE AX 1MG 10/11/2016 11:15:13 AM Xanax 1 mg tablet RxNorm: 177821 1-2 Tablet(s) Oral e very night at bedtime as needed for sleep 01/22/2019 02/08/2019 Inactive Generic For:LAVELLE AX 1MG 10/11/2016 11:15:13 AM Celexa 40 mg tablet RxNorm: 907546 1 Tablet(s) Oral QD 01/17/2019 Active - First Attempt Ref: [id number] Xanax 1 mg tablet RxNorm: 830667 1 Tablet(s) Oral every night a t bedtime 01/08/2019 01/21/2019 Inactive levothyroxine 88 mcg tablet RxNorm: 632876 TAKE 1 TABLET BY NINA TH DAILY 12/19/2018 06/16/2019 Active - First Attempt Ref: [id number] Xanax 1 mg tablet RxNorm: 203318 1 Tablet(s) Oral every night a t bedtime 12/06/2018 01/05/2019 Inactive Singulair 10 mg tablet RxNorm: 808930 1 Tablet(s) Oral every ni ght at bedtime 11/23/2018 11/17/2019 Active - First Attempt Ref: [id number] Celexa 40 mg tablet RxNorm: 577707 1 Tablet(s) Oral 11/23/20182018 Inactive - First Attempt Ref: [id number] cyclobenzaprine 10 mg tablet RxNorm: 766687 1 Tablet(s) Oral three times a day as needed for muscle spasm 11/23/2018 02/11/2019 Inactive Xanax 1 mg tablet RxNorm: 496430 1 Tablet(s) PO QHS 11/06/20182018 Inactive Xanax 1 mg tablet RxNorm: 463705 1 Tablet(s) PO QHS 09/26/20182018 Inactive Singulair 10 mg tablet RxNorm: 974152 TAKE 1 TABLET BY MOUTH EVERY NIGHT AT BEDTIME 08/16/2018 11/22/2018 Inactive - First Attempt Ref: [id number] Xanax 1 mg tablet RxNorm: 010824 1 Tablet(s) PO QHS 08/01/20182018 Inactive levothyroxine 88 mcg tablet RxNorm: 569608 TAKE 1 TABLET BY NINA TH DAILY 07/31/2018 12/18/2018 Inactive - First Attempt Ref: [id number] Celexa 40 mg tablet RxNorm: 935840 TAKE 1 TABLET BY MOUTH DAILY 04/201811/22/2018 Inactive - First Attempt Ref: [id number] 54 bupropion HCl SR 100 mg tablet,12 hr sustained-release RxNor m: 230611 1 Tablet(s) PO BID 07/12/2018 07/06/2019 Active - Ref: [id number] 7 Claritin-D 24 Hour 10 mg-240 mg tablet,extended release RxNo rm: 5068876 1 Tablet(s) PO QD 06/29/2018 2018 Inactive Claritin-D 24 Hour 10 mg-240 mg tablet,extended release RxNo rm: 4823262 1 Tablet(s) PO QD 06/29/2018 2018 Inactive Xanax 1 mg tablet RxNorm: 737938 1-2 Tablet(s) PO QHS as needed for sleep 05/26/2018 06/23/2018 Inactive Generic For:XANAX 1M G 10/11/2016 11:15:13 AM Xanax 1 mg tablet RxNorm: 669332 1-2 Tablet(s) PO QHS as needed for sleep 03/28/2018 05/25/2018 Inactive Generic For:XANAX 1M G 10/11/2016 11:15:13 AM Macrobid 100 mg capsule RxNorm: 952253 1 Capsule(s) PO BID 03/27/19 19 03/31/2018 Inactive gabapentin 300 mg capsule RxNorm: 837891 1 Capsule(s) PO QHS 201703/26/2018 Inactive Claritin-D 24 Hour 10 mg-240 mg tablet,extended release RxNo rm: 8207412 1 Tablet(s) PO QD 01/26/2018 02/24/2018 Inactive gabapentin 100 mg capsule RxNorm: 992692 1 Capsule(s) P O QHS for 1 week then 2 po q HS for 2 weeks then 3 po q HS 01/24/2018 03/26/2018 Inactive Xanax 1 mg tablet RxNorm: 509187 1-2 Tablet(s) PO QHS as needed for sleep 01/24/2018 03/24/2018 Inactive Generic For:XANAX 1M G 10/11/2016 11:15:13 AM prednisone 20 mg tablet RxNorm: 254593 1 Tablet(s) PO T ID for 3 days then 1 po BID for 3 days then one daily for 3 days 12/29/2017 03/26/2018 Inactiv e prednisone 20 mg tablet RxNorm: 454984 3 Tablet(s) PO T ID for 3 days then 1 po BID for 3 days then one daily for 3 days 12/29/2017 12/29/2017 Inactiv e Macrobid 100 mg capsule RxNorm: 716178 1 Capsule(s) PO BID 12/30/19 18 01/02/2018 Inactive Xanax 1 mg tablet RxNorm: 260433 1-2 Tablet(s) PO QHS as needed for sleep 12/28/2017 01/23/2018 Inactive Generic For:XANAX 1M G 10/11/2016 11:15:13 AM Medrol (Walter) 4 mg tablets in a dose pack RxNorm: 989101 Tablet(s) PO take as directed 12/01/2017 03/26/2018 Inactive Keflex 750 mg capsule RxNorm: 671905 1 Capsule(s) PO BID 12/01/2017 1 Inactive clindamycin HCl 300 mg capsule RxNorm: 724700 2 Capsule(s) PO TID 1 12/08/2017 Inactive Xanax 1 mg tablet RxNorm: 063265 1-2 Tablet(s) PO QHS as needed for sleep 11/28/2017 12/27/2017 Inactive Generic For:XANAX 1M G 10/11/2016 11:15:13 AM mupirocin 2 % topical ointment RxNorm: 776644 1 Application OTIC BI D 11/28/2017 08/09/2018 Inactive Xanax 1 mg tablet RxNorm: 163974 1-2 Tablet(s) PO QHS as needed for sleep 10/27/2017 11/25/2017 Inactive Generic For:XANAX 1M G 10/11/2016 11:15:13 AM Macrobid 100 mg capsule RxNorm: 330171 1 Capsule(s) PO BID 10/11/19 18 10/16/2017 Inactive Medrol (Walter) 4 mg tablets in a dose pack RxNorm: 106365 Tablet(s) PO take as directed 10/10/2017 11/16/2017 Inactive Xanax 1 mg tablet RxNorm: 709953 1-2 Tablet(s) PO QHS as needed for sleep 09/28/2017 10/26/2017 Inactive Generic For:XANAX 1M G 10/11/2016 11:15:13 AM Xanax 1 mg tablet RxNorm: 759618 1-2 Tablet(s) PO QHS as needed for sleep 08/30/2017 09/27/2017 Inactive Generic For:XANAX 1M G 10/11/2016 11:15:13 AM Xanax 1 mg tablet RxNorm: 345763 1-2 Tablet(s) PO QHS as needed for sleep 08/30/2017 08/29/2017 Inactive Generic For:XANAX 1M G 10/11/2016 11:15:13 AM Xanax 1 mg tablet RxNorm: 299473 1-2 Tablet(s) PO QHS as needed for sleep 08/01/2017 08/29/2017 Inactive Generic For:XANAX 1M G 10/11/2016 11:15:13 AM Xanax 1 mg tablet RxNorm: 278984 1-2 Tablet(s) PO QHS as needed for sleep 06/29/2017 2017 Inactive Generic For:XANAX 1M G 10/11/2016 11:15:13 AM Claritin-D 24 Hour 10 mg-240 mg tablet,extended release RxNo rm: 1620613 1 Tablet(s) PO QD 06/29/2017 2017 Inactive levothyroxine 88 mcg tablet RxNorm: 722008 1 Tablet(s) PO QD 201709/10/2017 Inactive Xanax 1 mg tablet RxNorm: 695098 1-2 Tablet(s) PO QHS as needed for sleep 05/26/2017 06/28/2017 Inactive Generic For:XANAX 1M G 10/11/2016 11:15:13 AM Claritin-D 24 Hour 10 mg-240 mg tablet,extended release RxNo rm: 6416621 1 Tablet(s) PO QD 05/26/2017 06/24/2017 Inactive bupropion HCl SR 100 mg tablet,12 hr sustained-release RxNor m: 223566 Tablet(s) Take 1 tablet by mouth two times daily 04/06/2017 12/31/2017 Inactive - Ref: [id number] Xanax 1 mg tablet RxNorm: 217999 1-2 Tablet(s) PO QHS as needed for sleep 03/24/2017 05/22/2017 Inactive Generic For:XANAX 1M G 10/11/2016 11:15:13 AM Medrol (Walter) 4 mg tablets in a dose pack RxNorm: 709411 Tablet(s) P O 02/16/2017 03/27/2017 Inactive Xanax 1 mg tablet RxNorm: 951758 Tablet(s) TAKE ONE T O TWO TABLETS BY MOUTH AT BEDTIME NEEDED 02/16/2017 03/17/2017 Inactive Generic For:XA NAX 1MG 10/11/2016 11:15:13 AM Claritin-D 24 Hour 10 mg-240 mg tablet,extended release RxNo rm: 6955030 1 Tablet(s) PO QD 02/16/2017 04/16/2017 Inactive cefdinir 300 mg capsule RxNorm: 542460 2 Capsule(s) PO QD 02/16/2017 02/25/2017 Inactive Celexa 40 mg tablet RxNorm: 818830 Tablet(s) Take 1 tablet by m outh daily 12/23/2016 09/18/2017 Inactive - Ref: [id number] Xanax 1 mg tablet RxNorm: 077318 Tablet(s) TAKE ONE T O TWO TABLETS BY MOUTH AT BEDTIME NEEDED 12/16/2016 01/14/2017 Inactive Generic For:XA NAX 1MG 10/11/2016 11:15:13 AM Xanax 1 mg tablet RxNorm: 232463 Tablet(s) TAKE ONE T O TWO TABLETS BY MOUTH AT BEDTIME NEEDED 11/18/2016 12/15/2016 Inactive Generic For:XA NAX 1MG 10/11/2016 11:15:13 AM Xanax 1 mg tablet RxNorm: 692813 TAKE ONE TO TWO TABL ETS BY MOUTH AT BEDTIME NEEDED 10/11/2016 11/17/2016 Inactive Generic For:XANA X 1MG 10/11/2016 11:15:13 AM Mobic 15 mg tablet RxNorm: 475855 1 Tablet(s) PO QD 09/06/20162016 Inactive Claritin-D 24 Hour 10 mg-240 mg tablet,extended release RxNo rm: 8631691 1 Tablet(s) PO QD 09/02/2016 11/30/2016 Inactive prednisone 20 mg tablet RxNorm: 268908 1 Tablet(s) PO T ID for 3 days then 1 po BID for 3 days then one daily for 3 days 08/16/2016 03/27/2017 Inactiv e cefdinir 300 mg capsule RxNorm: 162736 2 Capsule(s) PO QD 08/16/2016 09/05/2016 Inactive Xanax 1 mg tablet RxNorm: 727789 TAKE ONE TO TWO TABL ETS BY MOUTH AT BEDTIME NEEDED 08/05/2016 10/11/2016 Inactive Generic For:XANA X 1MG 08/05/2016 2:27:03 PM08/04/2016 4:15:22 PM Singulair 10 mg tablet RxNorm: 393135 1 Tablet(s) PO QHS 07/06/2016 0 09/03/2016 Inactive prednisone 20 mg tablet RxNorm: 061718 1 Tablet(s) PO T ID for 3 days then 1 po BID for 3 days then one daily for 3 days 06/15/2016 07/05/2016 Inactiv e Singulair 10 mg tablet RxNorm: 318659 1 Tablet(s) PO QHS 06/15/2016 0 07/05/2016 Inactive cefdinir 300 mg capsule RxNorm: 150600 2 Capsule(s) PO QD 06/15/2016 07/05/2016 Inactive Xanax 1 mg tablet RxNorm: 258478 1-2 Tablet(s) PO QHS 05/21/201610/2016 Inactive Claritin-D 24 Hour 10 mg-240 mg tablet,extended release RxNo rm: 9071884 1 Tablet(s) PO QD 04/09/2016 07/07/2016 Inactive Xanax 1 mg tablet RxNorm: 044159 1-2 Tablet(s) PO QHS 03/23/201604/29 Inactive levothyroxine 88 mcg tablet RxNorm: 901109 1 Tablet(s) PO QD 201606/13/2017 Inactive bupropion HCl SR 100 mg tablet,sustained-release RxNorm: 993 503 Take 1 tablet by mouth two times daily 03/15/2016 12/09/2016 Inactive - Ref: 20 0119942 Celexa 40 mg tablet RxNorm: 132532 Take 1 tablet by mouth daily 12/23/2016 Inactive - Ref: 211226544 Xanax 1 mg tablet RxNorm: 656372 1-2 Tablet(s) PO QHS 02/17/201603/01 Inactive levothyroxine 88 mcg tablet RxNorm: 321788 1 Tablet(s) PO QD 201502/22/2016 Inactive Xanax 1 mg tablet RxNorm: 995081 1-2 Tablet(s) PO QHS 11/25/201511/29 Inactive levothyroxine 88 mcg tablet RxNorm: 450769 1 Tablet(s) PO QD 201511/24/2015 Inactive temazepam 30 mg capsule RxNorm: 992380 1 Capsule(s) PO QHS 11/13/19 16 11/24/2015 Inactive Xanax 1 mg tablet RxNorm: 338748 1-2 Tablet(s) PO QHS 09/15/201510/29 Inactive Celexa 40 mg tablet RxNorm: 120192 1 Tablet(s) PO QD 1 Tablet(s ) PO QD 09/10/2015 09/16/2015 Inactive bupropion HCl SR 100 mg tablet,sustained-release RxNorm: 993 503 1 Tablet(s) PO BID 09/10/2015 09/23/2015 Inactive Xanax 1 mg tablet RxNorm: 986673 1-2 Tablet(s) PO QHS 09/10/201508/28 Inactive Xanax 1 mg tablet RxNorm: 163618 1-2 Tablet(s) PO QHS 08/11/201508/28 Inactive cyclobenzaprine 10 mg tablet RxNorm: 301258 1 Tablet(s) PO TID prn spasm 07/09/2015 11/23/2018 Inactive Celexa 40 mg tablet RxNorm: 142673 1 Tablet(s) PO QD 06/06/201508/03 Inactive Xanax 1 mg tablet RxNorm: 294698 1-2 Tablet(s) PO QHS 06/04/201505/2015 Inactive levothyroxine 88 mcg tablet RxNorm: 811259 1 Tablet(s) PO QD 201511/23/2015 Inactive Ceftin 500 mg tablet RxNorm: 389598 1 Tablet(s) PO BID 05/05/2015 Inactive Ceftin 500 mg tablet RxNorm: 757182 1 Tablet(s) PO BID 05/05/201507/2015 Inactive meloxicam 15 mg tablet RxNorm: 257910 1 Tablet(s) PO QD 04/16/2015 Inactive meloxicam 15 mg tablet RxNorm: 279266 1 Tablet(s) PO QD 04/16/2015 Inactive diclofenac sodium 75 mg tablet,delayed release RxNorm: 22012 6 1 Tablet(s) PO BID 04/04/2015 04/15/2015 Inactive diclofenac sodium 75 mg tablet,delayed release RxNorm: 49287 6 1 Tablet(s) PO BID 04/04/2015 04/03/2015 Inactive Tivorbex 40 mg capsule RxNorm: 7664986 1 Capsule(s) PO TID 03/24/19 16 04/02/2015 Inactive bupropion HCl SR 100 mg tablet,sustained-release RxNorm: 993 503 1 Tablet(s) PO BID 03/11/2015 09/06/2015 Inactive cyclobenzaprine 10 mg tablet RxNorm: 138157 1 Tablet(s) PO TID prn spasm 03/11/2015 07/08/2015 Inactive levothyroxine 88 mcg tablet RxNorm: 951636 1 Tablet(s) PO QD 201405/27/2015 Inactive Claritin-D 24 Hour 10 mg-240 mg tablet,extended release RxNo rm: 1613703 1 Tablet(s) PO QD 02/27/2015 05/27/2015 Inactive cefuroxime axetil 500 mg tablet RxNorm: 871274 1 Tablet(s) PO BID 1 03/12/2015 Inactive Celexa 40 mg tablet RxNorm: 078398 1 Tablet(s) PO QD 02/05/201504/05 Inactive levothyroxine 75 mcg tablet RxNorm: 234842 1 Tablet(s) PO QD 201402/26/2015 Inactive Celexa 40 mg tablet RxNorm: 410928 1 Tablet(s) PO QD 10/09/201402/04 Inactive Activella 1 mg-0.5 mg tablet RxNorm: 8865309 1 Tablet(s) PO QD 08/2802/26/2015 Inactive bupropion HCl SR 100 mg tablet,sustained-release RxNorm: 993 503 1 Tablet(s) PO BID 09/12/2014 03/10/2015 Inactive levothyroxine 75 mcg tablet RxNorm: 813560 1 Tablet(s) PO QD 201412/09/2014 Inactive levothyroxine 75 mcg tablet RxNorm: 364029 1 Tablet(s) PO QD 201409/11/2014 Inactive Celexa 40 mg tablet RxNorm: 969484 1 Tablet(s) PO QD 08/12/201410/08 Inactive Xanax 1 mg tablet RxNorm: 797120 1-2 Tablet(s) PO QHS 08/12/201409/28 Inactive Claritin-D 24 Hour 10 mg-240 mg tablet,extended release RxNo rm: 2107669 1 Tablet(s) PO QD 06/13/2014 09/10/2014 Inactive cyclobenzaprine 10 mg tablet RxNorm: 111917 1 Tablet(s) PO TID prn spasm 06/12/2014 02/26/2015 Inactive Xanax 1 mg tablet RxNorm: 605704 1-2 Tablet(s) PO QHS 05/09/201406/28 Inactive levothyroxine 75 mcg tablet RxNorm: 470429 1 Tablet(s) PO QD 201407/08/2014 Inactive cephalexin 500 mg capsule RxNorm: 365174 1 Capsule(s) PO QOD 201402/26/2015 Inactive simvastatin 10 mg tablet RxNorm: 263370 1 Tablet(s) PO QHS 04/10/19 15 06/12/2014 Inactive Xanax 1 mg tablet RxNorm: 705381 1-2 Tablet(s) PO QHS 04/10/201404/28 Inactive levothyroxine 75 mcg tablet RxNorm: 503948 1 Tablet(s) PO QD 201404/09/2014 Inactive levothyroxine 75 mcg capsule RxNorm: 362056 1 Capsule(s) PO QD 03/3104/10/2014 Inactive Activella 1 mg-0.5 mg tablet RxNorm: 7345750 1 Tablet(s) PO QD 03/0109/11/2014 Inactive bupropion HCl SR 100 mg tablet,sustained-release RxNorm: 993 503 1 Tablet(s) PO BID 03/04/2014 08/30/2014 Inactive Activella 1 mg-0.5 mg tablet RxNorm: 0958857 1 Tablet(s) PO QD 01/2803/18/2014 Inactive levothyroxine 75 mcg capsule RxNorm: 836537 1 Capsule(s) PO QD 12/2904/08/2014 Inactive simvastatin 10 mg tablet RxNorm: 679142 1 Tablet(s) PO QHS 01/10/20 14 04/08/2014 Inactive cyclobenzaprine 10 mg tablet RxNorm: 977911 1 Tablet(s) PO TID prn spasm 01/09/2014 04/08/2014 Inactive Cipro 500 mg tablet RxNorm: 163929 1 Tablet(s) PO BID 12/25/201304/2013 Inactive Cipro 500 mg tablet RxNorm: 481792 1 Tablet(s) PO BID 12/25/201311/29 Inactive bupropion HCl SR 100 mg tablet,sustained-release RxNorm: 993 503 1 Tablet(s) PO QAM 12/11/2013 03/03/2014 Inactive cephalexin 500 mg capsule RxNorm: 027300 1 Capsule(s) PO QOD 201304/09/2014 Inactive Xanax 1 mg tablet RxNorm: 216462 1-2 Tablet(s) PO QHS 10/15/201310/29 Inactive simvastatin 10 mg tablet RxNorm: 485605 1 Tablet(s) PO QHS 10/11/19 14 01/07/2014 Inactive Celexa 40 mg tablet RxNorm: 914208 Tablet(s) PO TAKE 1 TABLET BY MOUTH ONCE DAILY. 09/18/2013 09/17/2013 Inactive Xanax 1 mg tablet RxNorm: 147054 1-2 Tablet(s) PO QHS 08/13/201308/28 Inactive simvastatin 10 mg tablet RxNorm: 695054 1 Tablet(s) PO QHS 07/12/19 14 10/08/2013 Inactive bupropion HCl SR 100 mg tablet,sustained-release RxNorm: 993 503 1 Tablet(s) PO QAM 05/22/2013 11/17/2013 Inactive Pamelor 10 mg capsule RxNorm: 491793 1 Capsule(s) PO QHS for PLATA /sleep 05/22/2013 06/04/2013 Inactive Xanax 1 mg tablet RxNorm: 232173 1-2 Tablet(s) PO QHS 05/15/201305/29 Inactive Pamelor 10 mg capsule RxNorm: 804437 1 Capsule(s) PO QHS for PLTAA /sleep 05/15/2013 05/21/2013 Inactive Xanax 1 mg tablet RxNorm: 699227 1 Tablet(s) PO QHS 04/27/20132013 Inactive Zovirax 800 mg tablet RxNorm: 530357 1 Tablet(s) PO TID 04/05/2013 Inactive Xanax 1 mg tablet RxNorm: 508575 1 Tablet(s) PO QHS 04/03/2013 No Sto p Date Active bupropion HCl SR 100 mg tablet,sustained-release RxNorm: 993 503 1 Tablet(s) PO QAM 03/26/2013 05/21/2013 Inactive bupropion HCl SR 100 mg tablet,sustained-release RxNorm: 993 503 1 Tablet(s) PO QAM 03/06/2013 03/25/2013 Inactive Pamelor 10 mg capsule RxNorm: 662379 1 Capsule(s) PO QHS for PLATA /sleep 02/14/2013 05/14/2013 Inactive levothyroxine 75 mcg capsule RxNorm: 108139 1 Capsule(s) PO QD 12/2901/08/2014 Inactive simvastatin 10 mg tablet RxNorm: 690925 1 Tablet(s) PO QHS TAKE 1 TABLET BY MOUTH ONCE DAILY AT BEDTIME. 01/15/2013 07/10/2013 Inactive cyclobenzaprine 10 mg tablet RxNorm: 788736 1 Tablet(s) PO TID prn spasm 12/25/2012 06/22/2013 Inactive Pamelor 10 mg capsule RxNorm: 393010 1 Capsule(s) PO QHS for PLATA /sleep 11/29/2012 02/14/2013 Inactive Celexa 40 mg tablet RxNorm: 158053 Tablet(s) PO TAKE 1 TABLET BY MOUTH ONCE DAILY. 10/11/2012 09/17/2013 Inactive simvastatin 10 mg tablet RxNorm: 749063 Tablet(s) PO TA KE 1 TABLET BY MOUTH ONCE DAILY AT BEDTIME. 10/11/2012 01/14/2013 Inactive simvastatin 10 mg tablet RxNorm: 882965 1 Tablet(s) PO QD 07/11/2012 10/08/2012 Inactive simvastatin 10 mg tablet RxNorm: 305543 1 Tablet(s) PO QD 04/14/2012 07/11/2012 Inactive simvastatin 10 mg tablet RxNorm: 616447 1 Tablet(s) PO QD 04/14/2012 04/13/2012 Inactive Celexa 40 mg tablet RxNorm: 565249 1 Tablet(s) PO QD 03/15/201209/10 Inactive cyclobenzaprine 10 mg tablet RxNorm: 158214 1 Tablet(s) PO TID prn spasm 02/02/2012 02/01/2012 Inactive cyclobenzaprine 10 mg tablet RxNorm: 469603 1 Tablet(s) PO TID prn spasm 02/02/2012 07/30/2012 Inactive Diflucan 100 mg Tab RxNorm: 147479 1 Tablet(s) PO QD 08/17/201108/22 Inactive Cipro 250 mg Tab RxNorm: 406476 1 Tablet(s) PO QD 08/17/2011 10/15/19 12 Inactive Levaquin 500 mg Tab RxNorm: 222496 1 Tablet(s) PO QD 08/17/201108/22 Inactive Pyridium 200 mg Tab RxNorm: 0262412 1 Tablet(s) PO TID 10/14/2010 Inactive may turn urine orange-red color. Cipro 500 mg Tab RxNorm: 925958 1 Tablet(s) PO BID 10/14/2010 011 Inactive levothyroxine 75 mcg capsule RxNorm: 521356 1 Capsule(s) PO QD 12/3001/14/2011 Inactive loratadine 10 mg tablet RxNorm: 752388 1 Tablet(s) PO QHS No Start Da te Active Vitamin D3 5,000 unit tablet RxNorm: 159168 1 Tablet(s) PO QD No Star t Date Active Nasacort 55 mcg nasal spray aerosol RxNorm: 8043088 2 Sp ray NASAL each nostril QHS No Start Date Active cyclobenzaprine 10 mg tablet RxNorm: 268417 1 Tablet(s) PO TID as needed No Start Date 11/22/2018 Inactive Vitamin D2 1,000 unit capsule RxNorm: 947510 3 Capsule(s) PO QD No Start Date 11/16/2017 Inactive diclofenac sodium 75 mg tablet,delayed release RxNorm: 83720 6 1 Tablet(s) PO BID No Start Date 03/16/2016 Inactive cephalexin 500 mg capsule RxNorm: 998950 1 Capsule(s) PO QOD No Sta rt Date 12/04/2013 Inactive cyclobenzaprine 10 mg tablet RxNorm: 303260 1 Tablet(s) PO QHS No S tart Date 02/01/2012 Inactive hydrocodone 5 mg-acetaminophen 500 mg tablet RxNorm: 257643 1 -2 Tablet(s) PO Q6H as needed No Start Date 08/09/2018 Inactive etodolac 400 mg tablet RxNorm: 990788 1 Tablet(s) PO TID No Start D ate 09/17/2018 Inactive Xanax 1 mg tablet RxNorm: 066893 1 Tablet(s) PO QHS No Start Date 04/2013 Inactive Vitamin D3 1,000 unit capsule RxNorm: 205036 1 Capsule(s) PO QD No Start Date 06/12/2014 Inactive estradiol 2 mg tablet RxNorm: 395867 1/2 Tablet(s) PO QD No Start D ate 03/05/2013 Inactive Celexa 40 mg tablet RxNorm: 084229 1 Tablet(s) PO QD No Start Date Inactive Activella 1 mg-0.5 mg tablet RxNorm: 9479347 1 Tablet(s) PO QD No S tart Date 07/10/2012 Inactive medroxyprogesterone 5 mg tablet RxNorm: 3153152 1/2 Tablet(s) PO QD No Start Date 03/05/2013 Inactive levothyroxine 88 mcg tablet RxNorm: 179687 1 Tablet(s) PO QD No Sta rt Date 02/26/2015 Inactive Keflex 500 mg capsule RxNorm: 570374 1 Capsule(s) PO PRN No Start D ate 08/16/2011 Inactive Activella 1 mg-0.5 mg tablet RxNorm: 5365624 1 Tablet(s) PO QHS No Start Date 03/27/2017 Inactive Activella 1 mg-0.5 mg tablet RxNorm: 2026925 1 Tablet(s) PO QD No S tart Date 02/06/2014 Inactive Flexeril 10 mg Tab RxNorm: 328523 1 Tablet(s) PO TID No Start Date Inactive prn spasm simvastatin 10 mg tablet RxNorm: 064659 1 Tablet(s) PO QD No Start Date 04/13/2012 Inactive Medication Administered No Medication Administered data Immunizations Vaccine Codes Date Status Influenza CVX: 135 01/16/2019 Complete Pneumococcal CVX: 133 01/16/2019 Complete Results No Results data Procedures Procedure Codes Date FLU VACC PRSV FREE INC ANTIG 65 AND OLDER CPT-4: 75463 01/16/2019 FLU VACC PRSV FREE INC ANTIG 65 AND OLDER CPT-4: 18213 01/16/2019 PNEUMOCOCCAL VACC 13 NARESH IM CPT-4: 43564 01/16/2019 SKIN FUNGI CULTURE CPT-4: 36382 01/16/2019 IMMUNIZATION ADMIN CPT-4: 37496 01/16/2019 IMMUNIZATION ADMIN EACH ADD CPT-4: 85640 01/16/2019 THER/PROPH/DIAG INJ SC/IM CPT-4: 00886 01/17/2018 KETOROLAC TROMETHAMINE INJ CPT-4: J1885 01/17/2018 THER/PROPH/DIAG INJ SC/IM CPT-4: 18035 01/17/2018 PROMETHAZINE HCL INJECTION CPT-4: J2550 01/17/2018 URINALYSIS NONAUTO W/O SCOPE CPT-4: 47311 12/29/2017 URINE CULTURE/ COLONY COUNT CPT-4: 58574 12/29/2017 THER/PROPH/DIAG INJ SC/IM CPT-4: 75009 11/30/2017 TRIAMCINOLONE ACET INJ NOS CPT-4: J3301 11/30/2017 DEXAMETHASONE SODIUM PHOS CPT-4: J1100 11/30/2017 CEFTRIAXONE SODIUM INJECTION CPT-4: J0696 11/29/2017 THER/PROPH/DIAG INJ SC/IM CPT-4: 78025 11/29/2017 CEFTRIAXONE SODIUM INJECTION CPT-4: J0696 11/28/2017 THER/PROPH/DIAG INJ SC/IM CPT-4: 37207 11/28/2017 URINALYSIS NONAUTO W/O SCOPE CPT-4: 72561 10/10/2017 THER/PROPH/DIAG INJ SC/IM CPT-4: 88200 10/10/2017 TRIAMCINOLONE ACET INJ NOS CPT-4: J3301 10/10/2017 DEXAMETHASONE SODIUM PHOS CPT-4: J1100 10/10/2017 CEFTRIAXONE SODIUM INJECTION CPT-4: J0696 10/10/2017 THER/PROPH/DIAG INJ SC/IM CPT-4: 59099 10/10/2017 URINE CULTURE/ COLONY COUNT CPT-4: 11595 10/10/2017 THER/PROPH/DIAG INJ SC/IM CPT-4: 10449 11/02/2016 KETOROLAC TROMETHAMINE INJ CPT-4: J1885 11/02/2016 THER/PROPH/DIAG INJ SC/IM CPT-4: 08906 06/15/2016 TRIAMCINOLONE ACET INJ NOS CPT-4: J3301 06/15/2016 DEXAMETHASONE SODIUM PHOS CPT-4: J1100 06/15/2016 THER/PROPH/DIAG INJ SC/IM CPT-4: 58706 04/09/2016 KETOROLAC TROMETHAMINE INJ CPT-4: J1885 04/09/2016 PROMETHAZINE HCL INJECTION CPT-4: J2550 04/09/2016 EXC TR-EXT B9+ERASMO 0.5 CM< CPT-4: 20857 06/12/2015 URINALYSIS NONAUTO W/O SCOPE CPT-4: 31325 05/05/2015 URINE CULTURE/ COLONY COUNT CPT-4: 51747 05/05/2015 URINALYSIS NONAUTO W/O SCOPE CPT-4: 30370 03/24/2015 URINALYSIS NONAUTO W/O SCOPE CPT-4: 24896 02/27/2015 URINE CULTURE/ COLONY COUNT CPT-4: 87982 02/27/2015 THER/PROPH/DIAG INJ SC/IM CPT-4: 38602 04/18/2014 KETOROLAC TROMETHAMINE INJ CPT-4: J1885 04/18/2014 THER/PROPH/DIAG INJ SC/IM CPT-4: 44179 06/05/2013 TRIAMCINOLONE ACET INJ NOS CPT-4: J3301 06/05/2013 THER/PROPH/DIAG INJ SC/IM CPT-4: 42599 11/29/2012 KETOROLAC TROMETHAMINE INJ CPT-4: J1885 11/29/2012 URINALYSIS NONAUTO W/O SCOPE CPT-4: 70548 07/11/2012 URINE CULTURE/ COLONY COUNT CPT-4: 95747 07/11/2012 OCCULT BLOOD FECES CPT-4: 68895 02/17/2012 URINALYSIS NONAUTO W/O SCOPE CPT-4: 36385 08/27/2011 URINE CULTURE/ COLONY COUNT CPT-4: 94166 08/27/2011 URINALYSIS NONAUTO W/O SCOPE CPT-4: 23976 08/17/2011 URINE CULTURE/ COLONY COUNT CPT-4: 91600 08/17/2011 URINALYSIS NONAUTO W/O SCOPE CPT-4: 16227 12/28/2010 URINE CULTURE/ COLONY COUNT CPT-4: 49936 12/28/2010 URINALYSIS NONAUTO W/O SCOPE CPT-4: 53384 11/09/2010 URINE CULTURE/ COLONY COUNT CPT-4: 57432 11/09/2010 URINALYSIS NONAUTO W/O SCOPE CPT-4: 16921 10/29/2010 URINE CULTURE/ COLONY COUNT CPT-4: 53970 10/29/2010 URINE CULTURE/ COLONY COUNT CPT-4: 76508 10/14/2010 URINALYSIS NONAUTO W/O SCOPE CPT-4: 51291 10/14/2010 Vital Signs Date Vital 02/14/2019 Blood Pressure 1: 112/74 Code: 8480-6 Heart Rate 1: 80 bpm Respiratory Rate: 18 bpm Temperature: 36.6 (C) / 97.9 (F) Weight: 124 lbs 01/16/2019 Blood Pressure 1: 122/74 Code: 8480-6 BMI: 22.0 Code: 81991-5 Heart Rate 1: 72 bpm Height: 5'3" [...] 1: 126/72 Code: 8480-6 BMI: 22.7 Code: 71115-0 Heart Rate 1: 72 bpm Height: 5'3" [...] 1: 112/70 Code: 8480-6 BMI: 22.0 Code: 34797-0 Heart Rate 1: 80 bpm Height: 5'3" [...] 1: 122/64 Code: 8480-6 BMI: 21.4 Code: 57940-4 Heart Rate 1: 88 bpm Height: 5'3" Respiratory Rate: 22 bpm SpO2: 96% Tempera ture: 36.8 (C) / 98.2 (F) Weight: 121 lbs 06/22/2017 Blood Pressure 1: 124/78 Code: 8480-6 BMI: 21.6 Code: 62519-4 Heart Rate 1: 76 bpm Height: 5'3" Respiratory Rate: 20 bpm Temperature: 36 .8 (C) / 98.3 (F) Weight: 122 lbs 03/28/2017 Blood Pressure 1: 92/60 Code: 8480-6 BMI: 20.4 C ode: 69698-9 Heart Rate 1: 72 bpm Height: 5'3" Respiratory Rate: 20 bpm Temperature: 36 .9 (C) / 98.4 (F) Weight: 115 lbs 02/16/2017 Blood Pressure 1: 106/70 Code: 8480-6 BMI: 21.3 Code: 65145-0 Heart Rate 1: 82 bpm Height: 5'3" Respiratory Rate: 22 bpm SpO2: 97% Tempera ture: 36.1 (C) / 97.0 (F) Weight: 120 lbs 09/06/2016 Blood Pressure 1: 118/64 Code: 8480-6 BMI: 22.7 Code: 32638-1 Heart Rate 1: 78 bpm Height: 5'3" Respiratory Rate: 20 bpm SpO2: 98% Tempera ture: 36.2 (C) / 97.2 (F) Weight: 128 lbs 08/16/2016 Blood Pressure 1: 118/78 Code: 8480-6 BMI: 22.1 Code: 46930-7 Heart Rate 1: 78 bpm Height: 5'3" Respiratory Rate: 20 bpm SpO2: 97% Tempera ture: 36.2 (C) / 97.1 (F) Weight: 125 lbs 07/19/2016 Blood Pressure 1: 116/68 Code: 8480-6 BMI: 22.5 Code: 58009-7 Heart Rate 1: 76 bpm Height: 5'3" Respiratory Rate: 20 bpm Temperature: 36 .8 (C) / 98.2 (F) Weight: 127 lbs 07/06/2016 Blood Pressure 1: 106/70 Code: 8480-6 BMI: 22.5 Code: 93804-0 Heart Rate 1: 72 bpm Height: 5'3" Respiratory Rate: 20 bpm SpO2: 97% Tempera ture: 36.8 (C) / 98.2 (F) Weight: 127 lbs 06/15/2016 Blood Pressure 1: 136/76 Code: 8480-6 BMI: 22.9 Code: 01607-7 Heart Rate 1: 74 bpm Height: 5'3" Respiratory Rate: 18 bpm SpO2: 98% Tempera ture: 36.4 (C) / 97.6 (F) Weight: 129 lbs 04/09/2016 Blood Pressure 1: 124/78 Code: 8480-6 BMI: 23.0 Code: 40334-0 Heart Rate 1: 86 bpm Height: 5'3" Respiratory Rate: 20 bpm SpO2: 96% Tempera ture: 36.5 (C) / 97.7 (F) Weight: 130 lbs 03/17/2016 Blood Pressure 1: 116/74 Code: 8480-6 BMI: 23.4 Code: 08754-8 Heart Rate 1: 84 bpm Height: 5'3" Respiratory Rate: 20 bpm SpO2: 97% Tempera ture: 36.8 (C) / 98.3 (F) Weight: 132 lbs 11/13/2015 Blood Pressure 1: 124/78 Code: 8480-6 BMI: 23.4 Code: 28474-4 Heart Rate 1: 88 bpm Height: 5'3" Respiratory Rate: 24 bpm SpO2: 98% Tempera ture: 36.8 (C) / 98.2 (F) Weight: 132 lbs 06/12/2015 Blood Pressure 1: 126/78 Code: 8480-6 BMI: 23.6 Code: 23175-3 Heart Rate 1: 80 bpm Height: 5'3" Respiratory Rate: 20 bpm Temperature: 36 .9 (C) / 98.4 (F) Weight: 133 lbs 04/22/2015 Blood Pressure 1: 126/68 Code: 8480-6 BMI: 23.6 Code: 32798-8 Heart Rate 1: 80 bpm Height: 5'3" Respiratory Rate: 20 bpm Temperature: 36 .6 (C) / 97.9 (F) Weight: 133 lbs 03/24/2015 Blood Pressure 1: 116/66 Code: 8480-6 BMI: 22.9 Code: 84196-3 Heart Rate 1: 74 bpm Height: 5'3" Respiratory Rate: 20 bpm Temperature: 36 .4 (C) / 97.6 (F) Weight: 129 lbs 02/27/2015 Blood Pressure 1: 106/64 Code: 8480-6 BMI: 22.7 Code: 75181-7 Heart Rate 1: 74 bpm Height: 5'3" Respiratory Rate: 20 bpm Temperature: 36 .8 (C) / 98.2 (F) Weight: 128 lbs 06/13/2014 Blood Pressure 1: 104/66 Code: 8480-6 BMI: 22.7 Code: 84570-3 Heart Rate 1: 84 bpm Height: 5'3" Respiratory Rate: 20 bpm Temperature: 37 .0 (C) / 98.6 (F) Weight: 128 lbs 04/18/2014 Blood Pressure 1: 112/62 Code: 8480-6 BMI: 22.0 Code: 56386-2 Heart Rate 1: 82 bpm Height: 5'3" Respiratory Rate: 18 bpm Temperature: 36 .4 (C) / 97.6 (F) Weight: 124 lbs 12/05/2013 Blood Pressure 1: 106/70 Code: 8480-6 BMI: 23.7 Code: 65488-4 Heart Rate 1: 84 bpm Height: 5'3" [...] 1: 126/88 Code: 8480-6 BMI: 22.3 Code: 84008-0 Heart Rate 1: 96 bpm Height: 5'4" Respiratory Rate: 20 bpm Temperature: 37 .7 (C) / 99.9 (F) Weight: 130 lbs 11/29/2012 Blood Pressure 1: 122/76 Code: 8480-6 BMI: 23.0 Code: 94450-5 Heart Rate 1: 84 bpm Height: 5'4" Respiratory Rate: 20 bpm Temperature: 36 .9 (C) / 98.4 (F) Weight: 134 lbs 09/26/2012 Blood Pressure 1: 114/76 Code: 8480-6 BMI: 23.0 Code: 59304-2 Heart Rate 1: 84 bpm Height: 5'4" Respiratory Rate: 20 bpm Temperature: 37 .3 (C) / 99.1 (F) Weight: 134 lbs 07/11/2012 Blood Pressure 1: 126/78 Code: 8480-6 BMI: 23.7 Code: 55149-3 Heart Rate 1: 76 bpm Height: 5'4" Respiratory Rate: 20 bpm Temperature: 37 .1 (C) / 98.7 (F) Weight: 138 lbs 02/02/2012 Blood Pressure 1: 108/70 Code: 8480-6 BMI: 23.2 Code: 94316-1 Heart Rate 1: 88 bpm Height: 5'4" Respiratory Rate: 20 bpm Temperature: 36 .4 (C) / 97.6 (F) Weight: 135 lbs 08/17/2011 Blood Pressure 1: 108/70 Code: 8480-6 BMI: 23.2 Code: 63347-0 Heart Rate 1: 72 bpm Height: 5'4" Respiratory Rate: 20 bpm Temperature: 36 .8 (C) / 98.2 (F) Weight: 135 lbs 10/14/2010 Blood Pressure 1: 120/72 Code: 8480-6 BMI: 23.4 Code: 84913-4 Heart Rate 1: 78 bpm Height: 5'3" [...] Insomnia[ICD10: G47.00] Diagnosis: Thrombocytosis[ICD10: D47.3] Alexandra CARROLL [employer] CPT-4: 27608 02/14/2019 ([id number]) OFFICE/OUTPATIENT VISIT EST Diagnosis: Small bowel obstruction[ICD10: K56.609] Diagnosis: FLU VACCINE[ICD10: Z23] Diagnosis: PNEUMOCOCCAL VACCINE[ICD10: Z23] Diagnosis: Onychomycosis[ICD10: B35.1] Alexandra FORDE S. Billie KUNZ [employer] CPT-4: 31891 01/16/2019 ([id number]) OFFICE/OUTPATIENT VISIT EST Diagnosis: Diarrhea, unspecified[ICD10: R19.7] Diagnosis: Radiculopathy, lumbosacral region[ICD10: M54.17] Alexandra CARROLL [employer] CPT-4: 68899 09/18/2018 OFFICE/OUTPATIENT VISIT EST Diagnosis: Other intervertebral disc degeneration, lumbar region[ICD10: M51.36] Diagnosis: Sacroiliitis, not elsewhere classified[ICD10: M46.1] Diagnosis: Obstructive sleep apnea (adult) (pediatric)[ICD10: G47.33] Alexandra CARROLL [employer] [facility] CPT-4: 67647 08/10/2018 ([id number]) OFFICE/OUTPATIENT VISIT EST Diagnosis: Fracture of unspecified part of left clavicle, subsequent encounter for fracture with routine healing[ICD10: S42.002D] Diagnosis: Cervicalgia[ICD10: M54.2] Diagnosis: Radiculopathy, lumbosacral region[ICD10: M54.17] Alexandra CARROLL [employer] [facility] CPT-4: 07904 03/27/2018 ([id number]) OFFICE/OUTPATIENT VISIT EST Diagnosis: Fracture of unspecified part of left clavicle, subsequent encounter for fracture with routine healing[ICD10: S42.002D] Diagnosis: Other intervertebral disc degeneration, lumbar region[ICD10: M51.36] Diagnosis: Unspecified fracture of first thoracic vertebra, subsequent encounter for fracture with routine healing[ICD10: S22.019D] Diagnosis: Unspecified fracture of second thoracic vertebra, subsequent encounter for fracture with routine healing[ICD10: S22.029D] Alexandra CARROLL [employer] [facility] CPT-4: 88407 02/23/2018 ([id number]) OFFICE/OUTPATIENT VISIT EST Diagnosis: Fracture of unspecified part of left clavicle, subsequent encounter for fracture with routine healing[ICD10: S42.002D] Diagnosis: Unspecified fracture of first thoracic vertebra, subsequent encounter for fracture with routine healing[ICD10: S22.019D] Diagnosis: Unspecified fracture of second thoracic vertebra, subsequent encounter for fracture with routine healing[ICD10: S22.029D] Alexandrateja CARROLL [employer] [facility] CPT-4: 40046 01/24/2018 ([id number]) OFFICE/OUTPATIENT VISIT EST Diagnosis: Migraine, unspecified, not intractable, without status migrainosus[ICD10: G43.909] Alexandra CARROLL [facility] CPT - 4: 76008 01/17/2018 ([id number]) OFFICE/OUTPATIENT VISIT EST Diagnosis: Hematuria, unspecified[ICD10: R31.9] Diagnosis: Other intervertebral disc degeneration, lumbar region[ICD10: M51.36] Diagnosis: Retention of urine, unspecified[ICD10: R33.9] Alexandra CARROLL [facility] CPT-4: 78083 12/29/2017 OFFICE/OUTPATIENT VISIT EST Diagnosis: Fracture of [...] pain[ICD10: M54.5] Alexandra KUNZ [facility] CPT-4: 51374 12/06/2017 ([id number]) OFFICE/OUTPATIENT VISIT EST Diagnosis: Cellulitis of right upper limb[ICD10: L03.113] Diagnosis: Allergy status to other antibiotic agents status[ICD10: Z88.1] Vandana CARROLL [facility] CPT-4: 39047 12/01/2017 ([id number]) OFFICE/OUTPATIENT VISIT EST Diagnosis: Cellulitis of right upper limb[ICD10: L03.113] Diagnosis: Allergy status to other antibiotic agents status[ICD10: Z88.1] Vandana Cavazos. DEANNE [facility] CPT-4: 45467 11/30/2017 ([id number]) OFFICE/OUTPATIENT VISIT EST Diagnosis: Cellulitis of right upper limb[ICD10: L03.113] Vandana Cavazos. DEANNE SALGUERO [facility] CPT-4: 53557 11/29/2017 ([id number]) OFFICE/OUTPATIENT VISIT EST Diagnosis: Cellulitis of right upper limb[ICD10: L03.113] Vandana CARROLL DO [facility] CPT-4: 08683 11/28/2017 ([id number]) OFFICE/OUTPATIENT VISIT EST Diagnosis: Other intervertebral disc degeneration, lumbar region[ICD10: M51.36] Diagnosis: Other retention of urine[ICD10: R33.8] Diagnosis: Primary insomnia[ICD10: F51.01] Diagnosis: Other spondylosis, site unspecified[ICD10: M47.899] Alexandra CARROLL DO [facility] CPT-4: 21874 11/17/2017 ([id number]) OFFICE/OUTPATIENT VISIT EST Diagnosis: Radiculopathy, lumbosacral region[ICD10: M54.17] Diagnosis: Other retention of urine[ICD10: R33.8] Diagnosis: Urinary tract infection, site not specified[ICD10: N39.0] Vandana CARROLL DO [facility] CPT-4: 42503 10/10/2017 ([id number]) PREV VISIT EST AGE 40-64 Diagnosis: Encounter for general adult medical examination without abnormal findings[ICD10: Z00.00] Diagnosis: Other intervertebral disc degeneration, lumbar region[ICD10: M51.36] Diagnosis: Hypothyroidism, unspecified[ICD10: E03.9] Diagnosis: Mixed hyperlipidemia[ICD10: E78.2] Alexandra CARROLL DO [facility] CPT-4: 35084 06/22/2017 ([id number]) OFFICE/OUTPATIENT VISIT EST Diagnosis: URI, ACUTE[ICD10: J06.9] Alexandra Danelawandavioletta SHAFFERALEXANDRA Ty ROMAN [facility] CPT-4: 19119 03/28/2017 OFFICE/OUTPATIENT VISIT EST Diagnosis: Acute sinusitis, unspecified[ICD10: J01.90] Vandana CARROLL DO [facility] CPT-4: 02350 02/16/2017 ([id number]) OFFICE/OUTPATIENT VISIT EST Diagnosis: Migraine, unspecified, not intractable, without status migrainosus[ICD10: G43.909] Alexandra Danejames ALEXANDRA Ty CARROLL DO [facility] CPT - 4: 48146 11/02/2016 ([id number]) OFFICE/OUTPATIENT VISIT EST Diagnosis: Pain in thoracic spine[ICD10: M54.6] Diagnosis: Chondrocostal junction syndrome [Tietze][ICD10: M94.0] Alexandra CARROLL [facility] CPT-4: 05589 09/06/2016 OFFICE/OUTPATIENT VISIT EST Diagnosis: Acute sinusitis, unspecified[ICD10: J01.90] Vidya Kaleb [facility]: 44738 08/16/2016 ([id number]) OFFICE/OUTPATIENT VISIT EST Diagnosis: Primary insomnia[ICD10: F51.01] Diagnosis: Cramp and spasm[ICD10: R25.2] Diagnosis: Major depressive disorder, single episode, mild[ICD10: F32.0] Alexandra CARROLL [facility] CPT-4: 26152 07/19/2016 ([id number]) OFFICE/OUTPATIENT VISIT EST Diagnosis: Obstructive sleep apnea (adult) (pediatric)[ICD10: G47.33] Diagnosis: Other fatigue[ICD10: R53.83] Diagnosis: Allergic rhinitis due to pollen[ICD10: J30.1] Diagnosis: Headache[ICD10: R51] Alexandra BURLESON [employer] [facility] CPT-4: 15473 07/06/2016 ([id number]) OFFICE/OUTPATIENT VISIT EST Diagnosis: Acute recurrent sinusitis, unspecified[ICD10: J01.91] Diagnosis: Allergic rhinitis due to pollen[ICD10: J30.1] [facility]: 09204 06/15/2016 ([id number]) OFFICE/OUTPATIENT VISIT EST Diagnosis: Migraine, unspecified, not intractable, without status migrainosus[ICD10: G43.909] Diagnosis: Allergic rhinitis, unspecified[ICD10: J30.9] Nae Mckay ALEXANDRA CARROLL [facility] CPT-4: 24179 04/09/2016 ([id number]) OFFICE/OUTPATIENT VISIT EST Diagnosis: Hypothyroidism, unspecified[ICD10: E03.9] Diagnosis: Other fatigue[ICD10: R53.83] Diagnosis: Mixed hyperlipidemia[ICD10: E78.2] Diagnosis: Major depressive disorder, single episode, mild[ICD10: F32.0] Alexandra CARROLL DO [facility] CPT-4: 27097 03/17/2016 ([id number]) OFFICE/OUTPATIENT VISIT EST Diagnosis: Insomnia, unspecified[ICD10: G47.00] Diagnosis: Encounter for therapeutic drug level monitoring[ICD10: Z51.81] Nae CARROLL DO [facility] CPT-4: 97014 11/13/2015 ([id number]) OFFICE/OUTPATIENT VISIT EST Diagnosis: Hematuria, unspecified[ICD10: R31.9] Alexandra CARROLL DO [facility] CPT-4: 90331 05/05/2015 ([id number]) OFFICE/OUTPATIENT VISIT EST Diagnosis: Other intervertebral disc degeneration, lumbar region[ICD10: M51.36] Diagnosis: Radiculopathy, lumbosacral region[ICD10: M54.17] Alexandra CARROLL DO [facility] CPT-4: 25007 04/22/2015 ([id number]) OFFICE/OUTPATIENT VISIT EST Diagnosis: Low back pain[ICD10: M54.5] Diagnosis: Recurrent and persistent hematuria with unspecified morphologic changes[ICD10: N02.9] Alexandra CARROLL DO [facility] CPT-4: 50062 03/24/2015 ([id number]) OFFICE/OUTPATIENT VISIT EST Diagnosis: Acute sinusitis, unspecified[ICD10: J01.90] Diagnosis: Headache[ICD10: R51] Diagnosis: Retention of urine, unspecified[ICD10: R33.9] Diagnosis: Hypothyroidism, unspecified[ICD10: E03.9] Alexandra CARROLL DO [facility] CPT-4: 59584 02/27/2015 ([id number]) PREV VISIT EST AGE 40-64 Diagnosis: ROUTINE MEDICAL EXAM[ICD9: V70.0] Diagnosis: HYPOTHYROIDISM[ICD9: 244.9] Diagnosis: HYPERLIPIDEMIA NEC/NOS[ICD9: 272.4] Alexandra CARROLL DO [facility] CPT-4: 75149 06/13/2014 ([id number]) OFFICE/OUTPATIENT VISIT EST Diagnosis: CEPHALGIA[ICD9: 784.0] Diagnosis: Nausea[ICD9: 787.02] Shalini CavazosAri DEANNE SALGUERO [facility] CPT-4: 97860 04/18/2014 ([id number]) OFFICE/OUTPATIENT VISIT EST Diagnosis: INSOMNIA NOS[ICD9: 780.52] Diagnosis: Complicated grieving[ICD9: 309.0] Alexandra Velalawandavioletta SHAFFERLIN Dani CavazosAri DANENDVIOLETTA SALGUERO [facility] CPT-4: 40684 12/05/2013 ([id number]) OFFICE/OUTPATIENT VISIT EST Diagnosis: Muscle twitch[ICD9: 781.0] Diagnosis: ALLERGIC RHINITIS[ICD9: 477.9] Alexandra Velalawandavioletta SHAFFERALEXANDRA Macy Ari DEANNE SALGUERO [facility] CPT-4: 65817 06/05/2013 ([id number]) OFFICE/OUTPATIENT VISIT EST Diagnosis: DEPRESSIVE DISORDER NEC[ICD9: 311] Alexandra Danelawandavioletta MARK INGRID S. DANENDVIOLETTA SALGUERO [facility] CPT-4: 25125 05/22/2013 OFFICE/OUTPATIENT VISIT EST Diagnosis: Shingles[ICD9: 053.9] Alexandra SHAFFERLINE MacyAri DEANNE SALGUERO [facility] CPT-4: 12428 04/05/2013 ([id number]) OFFICE/OUTPATIENT VISIT EST Diagnosis: DEPRESSIVE DISORDER NEC[ICD9: 311] Alexandra Danelawandavioletta MARK QUINTERO S. DANENDER [employer] CPT-4: 89109 03/26/2013 ([id number]) OFFICE/OUTPATIENT VISIT EST Diagnosis: Complicated grieving[ICD9: 309.0] Alexandra Danejames Louise MacyrAi DEANNE SALGUERO [facility] CPT-4: 70197 03/06/2013 ([id number]) OFFICE/OUTPATIENT VISIT EST Diagnosis: CEPHALGIA, TENSION[ICD9: 307.81] Diagnosis: MIGRAINE NOS/NOT INTRCBL[ICD9: 346.90] Diagnosis: Cervicalgia[ICD9: 723.1] Alexandra FORDE MacyAri GIULIA ROMAN [employer] CPT-4: 22757 11/29/2012 ([id number]) OFFICE/OUTPATIENT VISIT EST Diagnosis: Jaw pain[ICD9: 784.92] Diagnosis: Shoulder pain[ICD9: 719.41] Diagnosis: Family history of premature coronary artery disease[ICD9: V17.3] Alexandra CARROLL [facility] CPT-4: 23487 09/26/2012 ([id number]) OFFICE/OUTPATIENT VISIT EST Diagnosis: ABDOMINAL PAIN[ICD9: 789.00] Diagnosis: Constipation[ICD9: 564.00] Diagnosis: Hematuria[ICD9: 599.70] Alexandra BURLESON [facility] CPT-4: 10773 07/11/2012 ([id number]) OFFICE/OUTPATIENT VISIT EST Diagnosis: ANEMIA NOS[ICD9: 285.9] Alexandra BURLESON [facility] CPT-4: 00848 02/17/2012 ([id number]) PREV VISIT EST AGE 40-64 Diagnosis: ROUTINE MEDICAL EXAM[ICD9: V70.0] Diagnosis: HYPOTHYROIDISM[ICD9: 244.9] Diagnosis: HYPERLIPIDEMIA NEC/NOS[ICD9: 272.4] Diagnosis: Obstructive sleep apnea[ICD9: 327.23] Alexandra CARROLL [facility] CPT-4: 44786 02/02/2012 ([id number]) OFFICE/OUTPATIENT VISIT EST Diagnosis: URINARY TRACT INFECTION[ICD9: 599.0] [facility]PT-[facility]: 98582 08/27/2011 ([id number]) OFFICE/OUTPATIENT VISIT EST Diagnosis: URINARY TRACT INFECTION[ICD9: 599.0] Diagnosis: ACUTE CYSTITIS[ICD9: 595.0] Alexandra FORDE S. O [facility] CPT-4: 66402 08/17/2011 OFFICE/OUTPATIENT VISIT EST Diagnosis: URINARY TRACT INFECTION[ICD9: 599.0] Steph MARINQUE BLAKE [facility] C[facility]: 27961 10/14/2010 Plan of Care Planned Activity Notes [...] : G47.00 02/14/2019 Appointment: Alexandra Carroll WPtel: [address] [place], [place] [phone] US CANCELED 02/12/2019 Visit Diagnosis Plan: Onychomycosis Discussion: Send n ail for culture ICD-9 : 110.1 ICD-10 : B35.1 01/16/2019 Visit Diagnosis Plan: Small bowel obstruction Discussi on: S/P surgery in September with postop complications of wound dehiscence ICD-9 : 560.9 ICD-10 : K56.609 01/16/2019 Appointment: Alexandra Carroll WPtel: [address] [place], [place] [phone] US MEDICATION REVIEW 01/16/2019 Appointment: Alexandra Carroll WPtel: [address] [place], [place] [phone] US CANCELED 12/12/2018 Visit Diagnosis Plan: Diarrhea, unspecified Discussion : Due for updated colonoscopy ICD-9 : 787.91 ICD-10 : R19.7 09/18/2018 Visit Diagnosis Plan: Radiculopathy, lumbosacral regio n Discussion: Had left SI joint injection by Dr. Baig about 2 weeks ago and has fwup with him ICD-9 : 724.4 ICD-10 : M54.17 09/18/2018 Appointment: Alexandra Carroll WPtel: [address] [place], [place] [phone] US PATIENT CONSULT 15 09/18/2018 Care Plan: Referral Order SNOMED-CT : 30 [id number] Pending 09/18/2018 Visit Diagnosis Plan: Other intervertebral [...] M46.1 08/10/2018 Appointment: Alexandra Carroll WPtel: [address] [place], [place] [phone] US MEDICATION REVIEW 08/10/2018 Care Plan: Referral Order SNOMED-CT : 30 [id number] Pending 08/10/2018 Appointment: Alexandra Carroll WPtel: [facility] US CANCELED 04/17/2018 Visit Diagnosis Plan: Fracture [...] : M54.2 03/27/2018 Appointment: Alexandra Carroll WPtel: [facility] US FOLLOW UP 03/27/2018 Visit Diagnosis Plan: [...] ICD-10 : S42.002D 02/23/2018 Appointment: Alexandra Carrolltel: [address] [place] [address] US FOLLOW UP 02/23/2018 Patient Education: gabapentin- [employer] Coupon [id number] [email or web address] Completed 02/23/2018 Visit Diagnosis Plan: Fracture of unspec ified part of left clavicle, subsequent encounter for fracture with routine healing Discussion: Hold on PT and do home stretches Trial of gabapentin Recheck 4 weeks ICD-9 : V54.11 ICD-10 : S42.002D 01/24/2018 Appointment: Alexandra Carrolltel: [address] [place] [address] US FOLLOW UP 01/24/2018 Visit Diagnosis Plan: Migraine, unspecif ied, not intractable, without status migrainosus Discussion: Toradol and phenergan given ICD-9 : 346.90 ICD-10 : G43.909 01/17/2018 Appointment: Alexandra Carrolltel: [address] [place] [address] ACUTE ILLNESS 01/17/2018 Visit Diagnosis Plan: Retention [...] ICD-10 : M51.36 12/29/2017 Appointment: Alexandra Carrolltel: [address] [place], [place] [phone] ACUTE ILLNESS 12/29/2017 Care Plan: US EXAM PELVIC COMPLETE LOINC : 46802-3 Pending 12/29/2017 Care Plan: ECHO EXAM OF ABDOMEN LOINC : 47972-1 Pending 12/29/2017 Care Plan: Referral Order SNOMED-CT : 30 [id number] Pending 12/29/2017 Visit Diagnosis Plan: Fracture of unspec ified part of left clavicle, subsequent encounter for fracture with routine healing Discussion: Start PT in another 7-14 days Off work for the rest of this week then may return to part-time work on 12/12/17 Fwup in 4 weeks ICD-9 : V54.11 ICD-10 : S42.002D 12/06/2017 Appointment: Alexandra Carroll WPtel: [phone] [facility] US FOLLOW UP 12/06/2017 Patient Education: [...] : Z88.1 12/01/2017 Appointment: Vandana Crowe [address] [place], [place] [phone] US FOLLOW UP 12/01/2017 Patient Education: Patient [...] : Z88.1 11/30/2017 Appointment: Vandana Crowe [address] [facility] 11/30/2017 Patient Education: Patient Medication Summary [...] : L03.113 11/29/2017 Appointment: Vandana Crowe [address] [facility] FOLLOW UP 11/29/2017 Patient Education: Patient [...] : L03.113 11/28/2017 Appointment: Vandana Crowe [address] [facility] ACUTE ILLNESS 11/28/2017 Patient Education: Patient [...] M51.36 11/17/2017 [facility]ment[phone] [facility] [facility] 11/17/2017 Patient Education: Patient Medication Summary Completed 11/17/2017 Care Plan: Referral Order SNOMED-CT : 30 [id number] Pending 11/17/2017 Patient Education: Patient Medication Summary Completed 10/12/2017 Care Plan: MRI LUMBAR SPINE W/O DYE LOIN C : 31080-3 Pending 10/12/2017 Care Plan: X-RAY EXAM L-S SPINE 2/3 VWS LOINC : 60476-3 Pending 10/11/2017 Visit Diagnosis Plan: Urinary tract [...] [facility] [...] ICD-10 : R33.8 10/10/2017 Appointment: Vandana Crowe [address] [place] [address] ACUTE ILLNESS 10/10/2017 Patient Education: Patient Medication Summary Completed 10/10/2017 Appointment: Vandana Crowe [address] [place] [address] ACUTE ILLNESS 08/01/2017 Visit Diagnosis Plan: Other intervertebral disc degene ration, lumbar region Discussion: Core strengtheing and inversion table and if worsening will need updated MRI ICD-9 : 722.52 ICD-10 : M51.36 06/22/2017 Visit Diagnosis Plan: Encounter for [facility] adult medical examination without abnormal findings Discussion: Lab dis ussed Follow Up: 6 months ICD-9 : V70.0 ICD-10 : Z00.00 06/22/2017 Appointment: Alexandra Carroll WPtel: [phone] Annual Well Visit 06/22/2017 Patient Education: Patient Medication Summary Completed 06/22/2017 Patient Education: Patient Medication Summary Completed 06/16/2017 Care Plan: COMPREHEN METABOLIC PANEL [place] : 94771-0 Pending 06/16/2017 Care Plan: ASSAY THYROID STIM HORMONE Pen ding 06/16/2017 Care Plan: ASSAY OF FREE THYROXINE Pendin g 06/16/2017 Care Plan: LIPID PANEL LOINC : 74423-5 Pending 06/16/2017 Care Plan: CBC Pending 06/16/2017 [...] Fluids... 03/28/2017 Appointment: Alexandra Carroll WPtel: [phone] ACUTE ILLNESS 03/28/2017 Patient Education: Patient Medication Summary Completed 03/28/2017 Visit Diagnosis Plan: Acute sinusitis, unspecified Dis cussion: cefdinir and medrol dose pack prescribed to be taken as directed. tylenol/ibuprofen as needed. educated on importance of taking singulair or zyrtec daily to prevent worsening symptoms. keep hydrated. ICD-9 : 461.9 ICD-10 : J01.90 02/16/2017 Appointment: Vandana Crowe [address] [place] [address] ACUTE ILLNESS 02/16/2017 Patient Education: Patient Medication Summary Completed 02/16/2017 Appointment: Alexandra Carroll WPtel: [facility] [address] INJECTION 11/02/2016 Patient Education: Patient Medication Summary Completed 11/02/2016 Visit Diagnosis Plan: Pain in thoracic spine Discussio n: Increase flexeril to 10mg po BID Add Mobic 15mg po daily Towel stretch May see chiropractor to adjust ribs Notify if persists or worsening ICD-9 : 724.1 ICD-10 : M54.6 09/06/2016 Appointment: Alexandra Carroll WPtel: [phone] ACUTE ILLNESS 09/06/2016 Patient Education: Patient Medication Summary Completed 09/06/2016 Visit Plan: Due to hx, ERx Cefdinir and Prednisone (discussed risks for both) Given bottle for nasal saline rinses Tylenol/Ibuprofen prn pain/fever Fluids/rest Discussed s/s of worsening, RTC if no improvement 08/16/2016 Appointment: Vidya Manuel WPtel: [address] [place], [place] [address] ACUTE ILLNESS 08/16/2016 Patient Education: Patient Medication [...] : F32.0 07/19/2016 Appointment: Alexandra Carroll WPtel: [address] [place], [place] [phone] 07/15 confirmed`sl FOLLOW UP 07/19/2016 Patient [...] : J30.1 07/06/2016 Appointment: Alexandra Carroll WPtel: [address] [place], [place] [phone] 07/05 confirmed-sp FOLLOW UP 07/06/2016 Patient Education: [...] : J01.91 06/15/2016 Appointment: Alexandra Carroll WPtel: [address] [place], [place] [phone] 06/14 lm ~ ACUTE ILLNESS 06/15/2016 Patient Education: Patient Medication Summary Completed 06/15/2016 Visit Diagnosis Plan: Migraine, unspecif ied, not intractable, without status migrainosus Discussion: Injection as above Drink ple nty of water No driving x 6 hours Rest No OTC nsaids today Follow up PRN Refill called of claritin-d ICD-9 : 346.90 ICD-10 : G43.909 04/09/2016 Appointment: Nae Mckay [address] [place] [address] ACUTE ILLNESS 04/09/2016 Patient Education: Patient Medication [...] R53.83 03/17/2016 Appointment: Alexandra Carroll WPtel: [address] [place], [place] [id number] 03/16 nvm~sl 03/17 confirmed`sl FOLLOW UP 0 03/17/2016 Patient Education: Patient Medication Summary Completed 03/17/2016 Appointment: Alexandra Carroll WPtel: [phone] [place], [place] [id number] 03/11 lm~sl 03/15lm `sl 03/15 confirmed`sl FOLLOW U P 03/15/2016 Visit Plan: Discussed labeled indication s for benzos. Since xanax is not labeled for sleep and she has never tried anything else, encouraged her to trial restoril(another benzo) since it is labeled for sleep. She agrees with this trial. Rx called to [facility] after cost comparison which is nearly the same robert. If working well, continue the n9lajbi office visits. Call if not working well, and will restart xanax at for sleep. 11/13/2015 Appointment: Nae Mckay [address] [place], [place] [id number] 11/11 confirmed~sl FOLLOW UP 11/13/2015 Patient Education: Patient Medication Summary Completed 11/13/2015 Appointment: Alexandra Carroll WPtel: [address] [place], [place] [phone] Suture Removal 06/23/2015 Patient Education: Patient Medication Summary Completed 06/23/2015 Visit Plan: Removal of lesion above usin g 3-0 punch biopsy Return in 10 days for suture removal 06/12/2015 Appointment: Alexandra Carroll WPtel: [address] [place], [place] [phone] 06/10 lm ~sl ACUTE ILLNESS 06/12/2015 Patient Education: Patient Medication Summary Completed 06/12/2015 Referral: Soy Garcia WPtel: [facility] Schedule patient around lunch time and 3 weeks from 04/22/2015 ~ Spoke with Kiesha at Dr. Sandoval [facility] and 04/24/15 and scheduled the patient ~sl 04/24/15 Patient is informed~ 06/03 Patient canceled the appointment ~ Patient did not show up for scheduled appointment-sp Appoint ment Requested 05/21/2015 Appointment: Alexandra Carroll WPtel: [address] [place], [place] [phone] [facility] 05/05/2015 Patient Education: Patient Medication Summary Completed 05/05/2015 Visit Plan: Starts PT today Schedule wit h Dr. Garcia for epidural CT abdomen/pelvis results discussed Sees INFORMATICS EDUCATOR in April and will get checked then 04/22/2015 Appointment: Alexandra Carroll WPtel: [address] [place], [place] [phone] 04/21 confirmed~lb ACUTE ILLNESS 04/22/2015 Patient Education: Patient Medication Summary Completed 04/22/2015 Referral: Lincoln Hernandez WPtel: [address] [place] [address] Referral Initiated 04/10/2015 Patient Education: Patient Medication Summary Completed 04/09/2015 Visit Plan: Start with lumosacral spine x-ray--will likely need MRI of L/S spine x-ray Needs urology--has had to have bladder stretched in past Tivorbex 03/24/2015 Appointment: Alexandra Carroll WPtel: [address] [place], [place] [id number] 03/21/15 appt confirmed cn ACUTE ILLNESS 03/24 Patient Education: Patient Medication Summary Completed 03/24/2015 Visit Plan: Saline nasal flushes prn. Ty lenol/Motrin prn headache. Notify if persists/symptoms worsening. Cefuroxime to cover both sinuses and UTI Culture urine Check lab 02/27/2015 Appointment: Alexandra Carroll WPtel: [address] [place], [place] [phone] 02/26/15 vm to confirm and need new insu meri on file is inactive cn....02/27/15 appt confirmed cn ACUTE ILLNESS 015 Patient Education: Patient Medication Summary Completed 02/27/2015 Visit Plan: Lab discussed Stop simvastat in Check lipids in 6mos Continue all other meds at current dose Had Pap and Mammo 3 weeks ago 06/13/2014 Appointment: Alexandra Carroll WPtel: [address] [place], [place] [phone] Annual Well Visit 06/13/2014 Patient Education: Patient Medication Summary Completed 06/13/2014 Appointment: Shalini Walters WPtel: [address] [place] [address] ACUTE ILLNESS 04/18/2014 Patient Education: Patient Medication Summary Completed 04/18/2014 Visit Plan: Check lab in May then fwup Can try decreasing xanax to 1mg q HS with melatonin 5-10mg q HS 12/05/2013 Appointment: Alexandra Carroll WPtel: [address] [place] [address] 12/04 FOLLOW UP 12/05/2013 Patient Education: Patient Medication Summary Completed 12/05/2013 Appointment: Alexandra Carroll WPtel: [address] [place] [address] FOLLOW UP 06/05/2013 Patient Education: Patient Medication Summary Completed 06/05/2013 Appointment: Alexandra Carroll WPtel: [address] [place] [address] FOLLOW UP 05/22/2013 Patient Education: Patient Medication Summary Completed 05/22/2013 Visit Plan: Zovirax for 2wks Notify if p ain worsens or if persists 04/05/2013 Appointment: Alexandra Carroll WPtel: [address] [place] [address] ACUTE ILLNESS 04/05/2013 Patient Education: Patient Medication Summary Completed 04/05/2013 Visit Plan: Keep Wellbutrin at current d ose Pt did see for counseling 03/26/2013 Appointment: Alexandra Carroll WPtel: [address] [place] [address] ACUTE ILLNESS 03/26/2013 Patient Education: Patient Medication Summary Completed 03/26/2013 Visit Plan: Continue citalopram at curre nt dose Increase xanax to 1-2mg q HS for sleep Add Wellbutrin Sr 100mg q AM Start Counseling 03/06/2013 Appointment: Alexandra Carroll WPtel: [address] [place] [address] ACUTE ILLNESS 03/06/2013 Patient Education: Patient Medication Summary Completed 03/06/2013 Appointment: Alexandra Carrolltel: [address] [place] [address] ACUTE ILLNESS 11/29/2012 Patient Education: Patient Medication Summary Completed 11/29/2012 Appointment: Alexandra Carroll WPtel: [address] [place] [address] ACUTE ILLNESS 09/26/2012 Patient Education: Patient Medication Summary Completed 09/26/2012 Appointment: Alexandra Carrolltel: [address] [place] [address] ACUTE ILLNESS 07/11/2012 Patient Education: Patient Medication Summary Completed 07/11/2012 Appointment: Alexandra Carrolltel: [address] [place] [address] LAB 02/17/2012 Patient Education: Patient Medication Summary Completed 02/17/2012 Visit Plan: Check fasting lab Start annie y ca with Vit D Cont CPAP Mammo up-to-date Hemoccult card given 02/02/2012 Appointment: Alexandra Carrolltel: [address] [place] [address] PHYSICAL 02/02/2012 Patient Education: Patient Medication Summary Completed 02/02/2012 Appointment: Alexandra Carrolltel: [address] [place] [address] [place] UA 08/27/2011 Patient Education: Patient Medication Summary Completed 08/27/2011 Visit Plan: Levaquin and Diflucan for 1w k Then cipro QOD for prophylaxis 08/17/2011 Appointment: Alexandra Carrolltel: [address] [place] [address] FOLLOW UP 08/17/2011 Patient Education: Patient Medication Summary Completed 08/17/2011 Appointment: Alexandra Carroll WPtel: [phone] [id number] UA 12/28/2010 Patient Education: Patient Medication Summary Completed 12/28/2010 Appointment: Alexandra Carroll WPtel: [address] [place], [place] [phone] UA 11/09/2010 Patient Education: Patient Medication Summary Completed 11/09/2010 Appointment: Alexandra Carroll WPtel: [address] [place], [place] [phone] UA 10/29/2010 Patient Education: Patient Medication Summary Completed 10/29/2010 Appointment: Steph Bowen WPtel: [address] [place], [place] [phone] ACUTE ILLNESS 10/14/2010 Patient Education: Patient Medication Summary Completed 10/14/2010 Referral: Florian Baig WPtel: [facility] [address] [place] Referral Initiated Referral: Luis Enrique Jasso WPtel: [facility] [address] [place] Referral Appointment Requested Referral: Florian Baig WPtel: [facility] [address] [place] Referral Appointment Requested Referral: Caleb Glaser WPtel: [phone] [place] Referral Appointment Requested Referral: Florian Baig WPtel: [facility] [address] [id number] [place] Referral Initiated Referral: Florian Baig WPtel: [facility] [address] [id number] [place] Referral Appointment Requested Instructions Comment . [...] agrees with this trial. Rx called to [facility] after cost comparison which is nearly the same robert. If working well, continue the w4lwxwy office visits. Call if not working well, and will restart xanax at HS for sleep. . Removal of lesion above using 3-0 punc h biopsy Return in 10 days for suture removal . Starts PT today Schedule with Dr. Garcia for epidural CT abdomen/pelvis results discussed Sees INFORMATICS EDUCATOR in April and will get checked then [...]
--- OUTSIDE RECORDS SUMMARY | 2019-09-02 00:33 | XMS REPORT | CCD ---
Author Author Ilda Bowen APRN Organization [facility] Address [address] [place] [address] Phone Care Team Providers Care Jury Consultant Name Role Phone Alexandra Carroll D.O., PP Unavailable CCM Unavailable Summary Purpose Interface Exchange Insurance Providers Payer name Policy type / Coverage type Covered alliance party ID Effective Begin Date Effective End Date [facility] [employer] Insurance [id number] Un known Family History Family History data not found Social History Social History Element Codes Description Effective Dates Tobacco history SNOMED CT: 867978761 Nonsmoker 10/14/2010 Allergies, Adverse Reactions, Alerts Substance Reaction Codes Entered Date Inactivated Date Status MORPHINE SULFATE RxNorm: 1775704 10/14/2010 No Inactive Da te Active CEPHALOSPORINS [...] Fill Instructions cyclobenzaprine 10 mg tablet RxNorm: 578329 1 Tablet(s) Oral three times a day as needed for muscle spasm 02/12/2019 02/12/2019 Inactive Xanax 1 mg tablet RxNorm: 958968 1-2 Tablet(s) Oral e very night at bedtime as needed for sleep 02/09/2019 03/10/2019 Active Generic For:LAVELLE AX 1MG 10/11/2016 11:15:13 AM Xanax 1 mg tablet RxNorm: 851057 1-2 Tablet(s) Oral e very night at bedtime as needed for sleep 01/22/2019 02/08/2019 Inactive Generic For:LAVELLE AX 1MG 10/11/2016 11:15:13 AM Celexa 40 mg tablet RxNorm: 207416 1 Tablet(s) Oral QD 01/17/2019 Active - First Attempt Ref: [id number] Xanax 1 mg tablet RxNorm: 956185 1 Tablet(s) Oral every night a t bedtime 01/08/2019 01/21/2019 Inactive levothyroxine 88 mcg tablet RxNorm: 836904 TAKE 1 TABLET BY NINA TH DAILY 12/19/2018 06/16/2019 Active - First Attempt Ref: [id number] Xanax 1 mg tablet RxNorm: 988707 1 Tablet(s) Oral every night a t bedtime 12/06/2018 01/05/2019 Inactive Singulair 10 mg tablet RxNorm: 868337 1 Tablet(s) Oral every ni ght at bedtime 11/23/2018 11/17/2019 Active - First Attempt Ref: [id number] Celexa 40 mg tablet RxNorm: 223133 1 Tablet(s) Oral 11/23/20182018 Inactive - First Attempt Ref: [id number] cyclobenzaprine 10 mg tablet RxNorm: 906853 1 Tablet(s) Oral three times a day as needed for muscle spasm 11/23/2018 02/11/2019 Inactive Xanax 1 mg tablet RxNorm: 576126 1 Tablet(s) PO QHS 11/06/20182018 Inactive Xanax 1 mg tablet RxNorm: 332691 1 Tablet(s) PO QHS 09/26/20182018 Inactive Singulair 10 mg tablet RxNorm: 311383 TAKE 1 TABLET BY MOUTH EVERY NIGHT AT BEDTIME 08/16/2018 11/22/2018 Inactive - First Attempt Ref: [id number] Xanax 1 mg tablet RxNorm: 038317 1 Tablet(s) PO QHS 08/01/20182018 Inactive levothyroxine 88 mcg tablet RxNorm: 914650 TAKE 1 TABLET BY NINA TH DAILY 07/31/2018 12/18/2018 Inactive - First Attempt Ref: [id number] Celexa 40 mg tablet RxNorm: 752096 TAKE 1 TABLET BY MOUTH DAILY 04/201811/22/2018 Inactive - First Attempt Ref: [id number] 54 bupropion HCl SR 100 mg tablet,12 hr sustained-release RxNor m: 251432 1 Tablet(s) PO BID 07/12/2018 07/06/2019 Active - Ref: [id number] 7 Claritin-D 24 Hour 10 mg-240 mg tablet,extended release RxNo rm: 3436761 1 Tablet(s) PO QD 06/29/2018 2018 Inactive Claritin-D 24 Hour 10 mg-240 mg tablet,extended release RxNo rm: 4923690 1 Tablet(s) PO QD 06/29/2018 2018 Inactive Xanax 1 mg tablet RxNorm: 883186 1-2 Tablet(s) PO QHS as needed for sleep 05/26/2018 06/23/2018 Inactive Generic For:XANAX 1M G 10/11/2016 11:15:13 AM Xanax 1 mg tablet RxNorm: 826722 1-2 Tablet(s) PO QHS as needed for sleep 03/28/2018 05/25/2018 Inactive Generic For:XANAX 1M G 10/11/2016 11:15:13 AM Macrobid 100 mg capsule RxNorm: 237547 1 Capsule(s) PO BID 03/27/19 19 03/31/2018 Inactive gabapentin 300 mg capsule RxNorm: 065294 1 Capsule(s) PO QHS 201703/26/2018 Inactive Claritin-D 24 Hour 10 mg-240 mg tablet,extended release RxNo rm: 9945951 1 Tablet(s) PO QD 01/26/2018 02/24/2018 Inactive gabapentin 100 mg capsule RxNorm: 322481 1 Capsule(s) P O QHS for 1 week then 2 po q HS for 2 weeks then 3 po q HS 01/24/2018 03/26/2018 Inactive Xanax 1 mg tablet RxNorm: 250567 1-2 Tablet(s) PO QHS as needed for sleep 01/24/2018 03/24/2018 Inactive Generic For:XANAX 1M G 10/11/2016 11:15:13 AM prednisone 20 mg tablet RxNorm: 057614 1 Tablet(s) PO T ID for 3 days then 1 po BID for 3 days then one daily for 3 days 12/29/2017 03/26/2018 Inactiv e prednisone 20 mg tablet RxNorm: 287061 3 Tablet(s) PO T ID for 3 days then 1 po BID for 3 days then one daily for 3 days 12/29/2017 12/29/2017 Inactiv e Macrobid 100 mg capsule RxNorm: 555152 1 Capsule(s) PO BID 12/30/19 18 01/02/2018 Inactive Xanax 1 mg tablet RxNorm: 991783 1-2 Tablet(s) PO QHS as needed for sleep 12/28/2017 01/23/2018 Inactive Generic For:XANAX 1M G 10/11/2016 11:15:13 AM Medrol (Walter) 4 mg tablets in a dose pack RxNorm: 787634 Tablet(s) PO take as directed 12/01/2017 03/26/2018 Inactive Keflex 750 mg capsule RxNorm: 740115 1 Capsule(s) PO BID 12/01/2017 1 Inactive clindamycin HCl 300 mg capsule RxNorm: 656855 2 Capsule(s) PO TID 1 12/08/2017 Inactive Xanax 1 mg tablet RxNorm: 417879 1-2 Tablet(s) PO QHS as needed for sleep 11/28/2017 12/27/2017 Inactive Generic For:XANAX 1M G 10/11/2016 11:15:13 AM mupirocin 2 % topical ointment RxNorm: 645514 1 Application OTIC BI D 11/28/2017 08/09/2018 Inactive Xanax 1 mg tablet RxNorm: 349225 1-2 Tablet(s) PO QHS as needed for sleep 10/27/2017 11/25/2017 Inactive Generic For:XANAX 1M G 10/11/2016 11:15:13 AM Macrobid 100 mg capsule RxNorm: 898153 1 Capsule(s) PO BID 10/11/19 18 10/16/2017 Inactive Medrol (Walter) 4 mg tablets in a dose pack RxNorm: 994519 Tablet(s) PO take as directed 10/10/2017 11/16/2017 Inactive Xanax 1 mg tablet RxNorm: 069144 1-2 Tablet(s) PO QHS as needed for sleep 09/28/2017 10/26/2017 Inactive Generic For:XANAX 1M G 10/11/2016 11:15:13 AM Xanax 1 mg tablet RxNorm: 312871 1-2 Tablet(s) PO QHS as needed for sleep 08/30/2017 09/27/2017 Inactive Generic For:XANAX 1M G 10/11/2016 11:15:13 AM Xanax 1 mg tablet RxNorm: 622018 1-2 Tablet(s) PO QHS as needed for sleep 08/30/2017 08/29/2017 Inactive Generic For:XANAX 1M G 10/11/2016 11:15:13 AM Xanax 1 mg tablet RxNorm: 832482 1-2 Tablet(s) PO QHS as needed for sleep 08/01/2017 08/29/2017 Inactive Generic For:XANAX 1M G 10/11/2016 11:15:13 AM Xanax 1 mg tablet RxNorm: 456275 1-2 Tablet(s) PO QHS as needed for sleep 06/29/2017 2017 Inactive Generic For:XANAX 1M G 10/11/2016 11:15:13 AM Claritin-D 24 Hour 10 mg-240 mg tablet,extended release RxNo rm: 5329738 1 Tablet(s) PO QD 06/29/2017 2017 Inactive levothyroxine 88 mcg tablet RxNorm: 499874 1 Tablet(s) PO QD 201709/10/2017 Inactive Xanax 1 mg tablet RxNorm: 298362 1-2 Tablet(s) PO QHS as needed for sleep 05/26/2017 06/28/2017 Inactive Generic For:XANAX 1M G 10/11/2016 11:15:13 AM Claritin-D 24 Hour 10 mg-240 mg tablet,extended release RxNo rm: 5435207 1 Tablet(s) PO QD 05/26/2017 06/24/2017 Inactive bupropion HCl SR 100 mg tablet,12 hr sustained-release RxNor m: 175248 Tablet(s) Take 1 tablet by mouth two times daily 04/06/2017 12/31/2017 Inactive - Ref: [id number] Xanax 1 mg tablet RxNorm: 919546 1-2 Tablet(s) PO QHS as needed for sleep 03/24/2017 05/22/2017 Inactive Generic For:XANAX 1M G 10/11/2016 11:15:13 AM Medrol (Walter) 4 mg tablets in a dose pack RxNorm: 820953 Tablet(s) P O 02/16/2017 03/27/2017 Inactive Xanax 1 mg tablet RxNorm: 984233 Tablet(s) TAKE ONE T O TWO TABLETS BY MOUTH AT BEDTIME NEEDED 02/16/2017 03/17/2017 Inactive Generic For:XA NAX 1MG 10/11/2016 11:15:13 AM Claritin-D 24 Hour 10 mg-240 mg tablet,extended release RxNo rm: 6197527 1 Tablet(s) PO QD 02/16/2017 04/16/2017 Inactive cefdinir 300 mg capsule RxNorm: 281316 2 Capsule(s) PO QD 02/16/2017 02/25/2017 Inactive Celexa 40 mg tablet RxNorm: 166698 Tablet(s) Take 1 tablet by m outh daily 12/23/2016 09/18/2017 Inactive - Ref: [id number] Xanax 1 mg tablet RxNorm: 966588 Tablet(s) TAKE ONE T O TWO TABLETS BY MOUTH AT BEDTIME NEEDED 12/16/2016 01/14/2017 Inactive Generic For:XA NAX 1MG 10/11/2016 11:15:13 AM Xanax 1 mg tablet RxNorm: 810572 Tablet(s) TAKE ONE T O TWO TABLETS BY MOUTH AT BEDTIME NEEDED 11/18/2016 12/15/2016 Inactive Generic For:XA NAX 1MG 10/11/2016 11:15:13 AM Xanax 1 mg tablet RxNorm: 759180 TAKE ONE TO TWO TABL ETS BY MOUTH AT BEDTIME NEEDED 10/11/2016 11/17/2016 Inactive Generic For:XANA X 1MG 10/11/2016 11:15:13 AM Mobic 15 mg tablet RxNorm: 906427 1 Tablet(s) PO QD 09/06/20162016 Inactive Claritin-D 24 Hour 10 mg-240 mg tablet,extended release RxNo rm: 1705208 1 Tablet(s) PO QD 09/02/2016 11/30/2016 Inactive prednisone 20 mg tablet RxNorm: 089558 1 Tablet(s) PO T ID for 3 days then 1 po BID for 3 days then one daily for 3 days 08/16/2016 03/27/2017 Inactiv e cefdinir 300 mg capsule RxNorm: 525641 2 Capsule(s) PO QD 08/16/2016 09/05/2016 Inactive Xanax 1 mg tablet RxNorm: 514168 TAKE ONE TO TWO TABL ETS BY MOUTH AT BEDTIME NEEDED 08/05/2016 10/11/2016 Inactive Generic For:XANA X 1MG 08/05/2016 2:27:03 PM08/04/2016 4:15:22 PM Singulair 10 mg tablet RxNorm: 147895 1 Tablet(s) PO QHS 07/06/2016 0 09/03/2016 Inactive prednisone 20 mg tablet RxNorm: 305046 1 Tablet(s) PO T ID for 3 days then 1 po BID for 3 days then one daily for 3 days 06/15/2016 07/05/2016 Inactiv e Singulair 10 mg tablet RxNorm: 481050 1 Tablet(s) PO QHS 06/15/2016 0 07/05/2016 Inactive cefdinir 300 mg capsule RxNorm: 861941 2 Capsule(s) PO QD 06/15/2016 07/05/2016 Inactive Xanax 1 mg tablet RxNorm: 743193 1-2 Tablet(s) PO QHS 05/21/201610/2016 Inactive Claritin-D 24 Hour 10 mg-240 mg tablet,extended release RxNo rm: 4062347 1 Tablet(s) PO QD 04/09/2016 07/07/2016 Inactive Xanax 1 mg tablet RxNorm: 767801 1-2 Tablet(s) PO QHS 03/23/201604/29 Inactive levothyroxine 88 mcg tablet RxNorm: 982136 1 Tablet(s) PO QD 201606/13/2017 Inactive bupropion HCl SR 100 mg tablet,sustained-release RxNorm: 993 503 Take 1 tablet by mouth two times daily 03/15/2016 12/09/2016 Inactive - Ref: 20 7044418 Celexa 40 mg tablet RxNorm: 659661 Take 1 tablet by mouth daily 12/23/2016 Inactive - Ref: [id number] Xanax 1 mg tablet RxNorm: 215825 1-2 Tablet(s) PO QHS 02/17/201603/01 Inactive levothyroxine 88 mcg tablet RxNorm: 825957 1 Tablet(s) PO QD 201502/22/2016 Inactive Xanax 1 mg tablet RxNorm: 410477 1-2 Tablet(s) PO QHS 11/25/201511/29 Inactive levothyroxine 88 mcg tablet RxNorm: 169900 1 Tablet(s) PO QD 201511/24/2015 Inactive temazepam 30 mg capsule RxNorm: 904936 1 Capsule(s) PO QHS 11/13/19 16 11/24/2015 Inactive Xanax 1 mg tablet RxNorm: 621141 1-2 Tablet(s) PO QHS 09/15/201510/29 Inactive Celexa 40 mg tablet RxNorm: 527743 1 Tablet(s) PO QD 1 Tablet(s ) PO QD 09/10/2015 09/16/2015 Inactive bupropion HCl SR 100 mg tablet,sustained-release RxNorm: 993 503 1 Tablet(s) PO BID 09/10/2015 09/23/2015 Inactive Xanax 1 mg tablet RxNorm: 470735 1-2 Tablet(s) PO QHS 09/10/201508/28 Inactive Xanax 1 mg tablet RxNorm: 257103 1-2 Tablet(s) PO QHS 08/11/201508/28 Inactive cyclobenzaprine 10 mg tablet RxNorm: 845067 1 Tablet(s) PO TID prn spasm 07/09/2015 11/23/2018 Inactive Celexa 40 mg tablet RxNorm: 069441 1 Tablet(s) PO QD 06/06/201508/03 Inactive Xanax 1 mg tablet RxNorm: 577006 1-2 Tablet(s) PO QHS 06/04/201505/2015 Inactive levothyroxine 88 mcg tablet RxNorm: 627517 1 Tablet(s) PO QD 201511/23/2015 Inactive Ceftin 500 mg tablet RxNorm: 179607 1 Tablet(s) PO BID 05/05/2015 Inactive Ceftin 500 mg tablet RxNorm: 183234 1 Tablet(s) PO BID 05/05/201507/2015 Inactive meloxicam 15 mg tablet RxNorm: 927995 1 Tablet(s) PO QD 04/16/2015 Inactive meloxicam 15 mg tablet RxNorm: 023594 1 Tablet(s) PO QD 04/16/2015 Inactive diclofenac sodium 75 mg tablet,delayed release RxNorm: 72754 6 1 Tablet(s) PO BID 04/04/2015 04/15/2015 Inactive diclofenac sodium 75 mg tablet,delayed release RxNorm: 84181 6 1 Tablet(s) PO BID 04/04/2015 04/03/2015 Inactive Tivorbex 40 mg capsule RxNorm: 2229772 1 Capsule(s) PO TID 03/24/19 16 04/02/2015 Inactive bupropion HCl SR 100 mg tablet,sustained-release RxNorm: 993 503 1 Tablet(s) PO BID 03/11/2015 09/06/2015 Inactive cyclobenzaprine 10 mg tablet RxNorm: 256012 1 Tablet(s) PO TID prn spasm 03/11/2015 07/08/2015 Inactive levothyroxine 88 mcg tablet RxNorm: 476364 1 Tablet(s) PO QD 201405/27/2015 Inactive Claritin-D 24 Hour 10 mg-240 mg tablet,extended release RxNo rm: 7660233 1 Tablet(s) PO QD 02/27/2015 05/27/2015 Inactive cefuroxime axetil 500 mg tablet RxNorm: 108034 1 Tablet(s) PO BID 1 03/12/2015 Inactive Celexa 40 mg tablet RxNorm: 404051 1 Tablet(s) PO QD 02/05/201504/05 Inactive levothyroxine 75 mcg tablet RxNorm: 720134 1 Tablet(s) PO QD 201402/26/2015 Inactive Celexa 40 mg tablet RxNorm: 614208 1 Tablet(s) PO QD 10/09/201402/04 Inactive Activella 1 mg-0.5 mg tablet RxNorm: 9271630 1 Tablet(s) PO QD 08/2802/26/2015 Inactive bupropion HCl SR 100 mg tablet,sustained-release RxNorm: 993 503 1 Tablet(s) PO BID 09/12/2014 03/10/2015 Inactive levothyroxine 75 mcg tablet RxNorm: 220949 1 Tablet(s) PO QD 201412/09/2014 Inactive levothyroxine 75 mcg tablet RxNorm: 686036 1 Tablet(s) PO QD 201409/11/2014 Inactive Celexa 40 mg tablet RxNorm: 260417 1 Tablet(s) PO QD 08/12/201410/08 Inactive Xanax 1 mg tablet RxNorm: 220913 1-2 Tablet(s) PO QHS 08/12/201409/28 Inactive Claritin-D 24 Hour 10 mg-240 mg tablet,extended release RxNo rm: 2075465 1 Tablet(s) PO QD 06/13/2014 09/10/2014 Inactive cyclobenzaprine 10 mg tablet RxNorm: 167716 1 Tablet(s) PO TID prn spasm 06/12/2014 02/26/2015 Inactive Xanax 1 mg tablet RxNorm: 719373 1-2 Tablet(s) PO QHS 05/09/201406/28 Inactive levothyroxine 75 mcg tablet RxNorm: 540908 1 Tablet(s) PO QD 201407/08/2014 Inactive cephalexin 500 mg capsule RxNorm: 783102 1 Capsule(s) PO QOD 201402/26/2015 Inactive simvastatin 10 mg tablet RxNorm: 269958 1 Tablet(s) PO QHS 04/10/19 15 06/12/2014 Inactive Xanax 1 mg tablet RxNorm: 172705 1-2 Tablet(s) PO QHS 04/10/201404/28 Inactive levothyroxine 75 mcg tablet RxNorm: 530916 1 Tablet(s) PO QD 201404/09/2014 Inactive levothyroxine 75 mcg capsule RxNorm: 495001 1 Capsule(s) PO QD 03/3104/10/2014 Inactive Activella 1 mg-0.5 mg tablet RxNorm: 4344744 1 Tablet(s) PO QD 03/0109/11/2014 Inactive bupropion HCl SR 100 mg tablet,sustained-release RxNorm: 993 503 1 Tablet(s) PO BID 03/04/2014 08/30/2014 Inactive Activella 1 mg-0.5 mg tablet RxNorm: 4200479 1 Tablet(s) PO QD 01/2803/18/2014 Inactive levothyroxine 75 mcg capsule RxNorm: 279575 1 Capsule(s) PO QD 12/2904/08/2014 Inactive simvastatin 10 mg tablet RxNorm: 981028 1 Tablet(s) PO QHS 01/10/20 14 04/08/2014 Inactive cyclobenzaprine 10 mg tablet RxNorm: 691152 1 Tablet(s) PO TID prn spasm 01/09/2014 04/08/2014 Inactive Cipro 500 mg tablet RxNorm: 285552 1 Tablet(s) PO BID 12/25/201304/2013 Inactive Cipro 500 mg tablet RxNorm: 421461 1 Tablet(s) PO BID 12/25/201311/29 Inactive bupropion HCl SR 100 mg tablet,sustained-release RxNorm: 993 503 1 Tablet(s) PO QAM 12/11/2013 03/03/2014 Inactive cephalexin 500 mg capsule RxNorm: 034866 1 Capsule(s) PO QOD 201304/09/2014 Inactive Xanax 1 mg tablet RxNorm: 610534 1-2 Tablet(s) PO QHS 10/15/201310/29 Inactive simvastatin 10 mg tablet RxNorm: 144886 1 Tablet(s) PO QHS 10/11/19 14 01/07/2014 Inactive Celexa 40 mg tablet RxNorm: 318161 Tablet(s) PO TAKE 1 TABLET BY MOUTH ONCE DAILY. 09/18/2013 09/17/2013 Inactive Xanax 1 mg tablet RxNorm: 585638 1-2 Tablet(s) PO QHS 08/13/201308/28 Inactive simvastatin 10 mg tablet RxNorm: 725896 1 Tablet(s) PO QHS 07/12/19 14 10/08/2013 Inactive bupropion HCl SR 100 mg tablet,sustained-release RxNorm: 993 503 1 Tablet(s) PO QAM 05/22/2013 11/17/2013 Inactive Pamelor 10 mg capsule RxNorm: 668910 1 Capsule(s) PO QHS for PLATA /sleep 05/22/2013 06/04/2013 Inactive Xanax 1 mg tablet RxNorm: 169352 1-2 Tablet(s) PO QHS 05/15/201305/29 Inactive Pamelor 10 mg capsule RxNorm: 879433 1 Capsule(s) PO QHS for PLATA /sleep 05/15/2013 05/21/2013 Inactive Xanax 1 mg tablet RxNorm: 477309 1 Tablet(s) PO QHS 04/27/20132013 Inactive Zovirax 800 mg tablet RxNorm: 575072 1 Tablet(s) PO TID 04/05/2013 Inactive Xanax 1 mg tablet RxNorm: 146736 1 Tablet(s) PO QHS 04/03/2013 No Sto p Date Active bupropion HCl SR 100 mg tablet,sustained-release RxNorm: 993 503 1 Tablet(s) PO QAM 03/26/2013 05/21/2013 Inactive bupropion HCl SR 100 mg tablet,sustained-release RxNorm: 993 503 1 Tablet(s) PO QAM 03/06/2013 03/25/2013 Inactive Pamelor 10 mg capsule RxNorm: 914523 1 Capsule(s) PO QHS for PLATA /sleep 02/14/2013 05/14/2013 Inactive levothyroxine 75 mcg capsule RxNorm: 955610 1 Capsule(s) PO QD 12/2901/08/2014 Inactive simvastatin 10 mg tablet RxNorm: 159305 1 Tablet(s) PO QHS TAKE 1 TABLET BY MOUTH ONCE DAILY AT BEDTIME. 01/15/2013 07/10/2013 Inactive cyclobenzaprine 10 mg tablet RxNorm: 750632 1 Tablet(s) PO TID prn spasm 12/25/2012 06/22/2013 Inactive Pamelor 10 mg capsule RxNorm: 798159 1 Capsule(s) PO QHS for PLATA /sleep 11/29/2012 02/14/2013 Inactive Celexa 40 mg tablet RxNorm: 269579 Tablet(s) PO TAKE 1 TABLET BY MOUTH ONCE DAILY. 10/11/2012 09/17/2013 Inactive simvastatin 10 mg tablet RxNorm: 399263 Tablet(s) PO TA KE 1 TABLET BY MOUTH ONCE DAILY AT BEDTIME. 10/11/2012 01/14/2013 Inactive simvastatin 10 mg tablet RxNorm: 548180 1 Tablet(s) PO QD 07/11/2012 10/08/2012 Inactive simvastatin 10 mg tablet RxNorm: 472030 1 Tablet(s) PO QD 04/14/2012 07/11/2012 Inactive simvastatin 10 mg tablet RxNorm: 946892 1 Tablet(s) PO QD 04/14/2012 04/13/2012 Inactive Celexa 40 mg tablet RxNorm: 393398 1 Tablet(s) PO QD 03/15/201209/10 Inactive cyclobenzaprine 10 mg tablet RxNorm: 968357 1 Tablet(s) PO TID prn spasm 02/02/2012 02/01/2012 Inactive cyclobenzaprine 10 mg tablet RxNorm: 589756 1 Tablet(s) PO TID prn spasm 02/02/2012 07/30/2012 Inactive Diflucan 100 mg Tab RxNorm: 095875 1 Tablet(s) PO QD 08/17/201108/22 Inactive Cipro 250 mg Tab RxNorm: 168297 1 Tablet(s) PO QD 08/17/2011 10/15/19 12 Inactive Levaquin 500 mg Tab RxNorm: 909741 1 Tablet(s) PO QD 08/17/201108/22 Inactive Pyridium 200 mg Tab RxNorm: 2112739 1 Tablet(s) PO TID 10/14/2010 Inactive may turn urine orange-red color. Cipro 500 mg Tab RxNorm: 174260 1 Tablet(s) PO BID 10/14/2010 011 Inactive levothyroxine 75 mcg capsule RxNorm: 200661 1 Capsule(s) PO QD 12/3001/14/2011 Inactive loratadine 10 mg tablet RxNorm: 490114 1 Tablet(s) PO QHS No Start Da te Active Vitamin D3 5,000 unit tablet RxNorm: 967193 1 Tablet(s) PO QD No Star t Date Active Nasacort 55 mcg nasal spray aerosol RxNorm: 2040534 2 Sp ray NASAL each nostril QHS No Start Date Active cyclobenzaprine 10 mg tablet RxNorm: 010020 1 Tablet(s) PO TID as needed No Start Date 11/22/2018 Inactive Vitamin D2 1,000 unit capsule RxNorm: 101020 3 Capsule(s) PO QD No Start Date 11/16/2017 Inactive diclofenac sodium 75 mg tablet,delayed release RxNorm: 03250 6 1 Tablet(s) PO BID No Start Date 03/16/2016 Inactive cephalexin 500 mg capsule RxNorm: 018666 1 Capsule(s) PO QOD No Sta rt Date 12/04/2013 Inactive cyclobenzaprine 10 mg tablet RxNorm: 475523 1 Tablet(s) PO QHS No S tart Date 02/01/2012 Inactive hydrocodone 5 mg-acetaminophen 500 mg tablet RxNorm: 452811 1 -2 Tablet(s) PO Q6H as needed No Start Date 08/09/2018 Inactive etodolac 400 mg tablet RxNorm: 325223 1 Tablet(s) PO TID No Start D ate 09/17/2018 Inactive Xanax 1 mg tablet RxNorm: 350772 1 Tablet(s) PO QHS No Start Date 04/2013 Inactive Vitamin D3 1,000 unit capsule RxNorm: 252794 1 Capsule(s) PO QD No Start Date 06/12/2014 Inactive estradiol 2 mg tablet RxNorm: 713224 1/2 Tablet(s) PO QD No Start D ate 03/05/2013 Inactive Celexa 40 mg tablet RxNorm: 719252 1 Tablet(s) PO QD No Start Date Inactive Activella 1 mg-0.5 mg tablet RxNorm: 1079189 1 Tablet(s) PO QD No S tart Date 07/10/2012 Inactive medroxyprogesterone 5 mg tablet RxNorm: 1774381 1/2 Tablet(s) PO QD No Start Date 03/05/2013 Inactive levothyroxine 88 mcg tablet RxNorm: 835657 1 Tablet(s) PO QD No Sta rt Date 02/26/2015 Inactive Keflex 500 mg capsule RxNorm: 099512 1 Capsule(s) PO PRN No Start D ate 08/16/2011 Inactive Activella 1 mg-0.5 mg tablet RxNorm: 2402777 1 Tablet(s) PO QHS No Start Date 03/27/2017 Inactive Activella 1 mg-0.5 mg tablet RxNorm: 1478623 1 Tablet(s) PO QD No S tart Date 02/06/2014 Inactive Flexeril 10 mg Tab RxNorm: 377141 1 Tablet(s) PO TID No Start Date Inactive prn spasm simvastatin 10 mg tablet RxNorm: 017271 1 Tablet(s) PO QD No Start Date 04/13/2012 Inactive Medication Administered No Medication Administered data Immunizations Vaccine Codes Date Status Influenza CVX: 135 01/16/2019 Complete Pneumococcal CVX: 133 01/16/2019 Complete Results No Results data Procedures Procedure Codes Date FLU VACC PRSV FREE INC ANTIG 65 AND OLDER CPT-4: 04182 01/16/2019 FLU VACC PRSV FREE INC ANTIG 65 AND OLDER CPT-4: 49467 01/16/2019 PNEUMOCOCCAL VACC 13 NARESH IM CPT-4: 13914 01/16/2019 SKIN FUNGI CULTURE CPT-4: 41791 01/16/2019 IMMUNIZATION ADMIN CPT-4: 63176 01/16/2019 IMMUNIZATION ADMIN EACH ADD CPT-4: 30981 01/16/2019 THER/PROPH/DIAG INJ SC/IM CPT-4: 58733 01/17/2018 KETOROLAC TROMETHAMINE INJ CPT-4: J1885 01/17/2018 THER/PROPH/DIAG INJ SC/IM CPT-4: 12640 01/17/2018 PROMETHAZINE HCL INJECTION CPT-4: J2550 01/17/2018 URINALYSIS NONAUTO W/O SCOPE CPT-4: 99848 12/29/2017 URINE CULTURE/ COLONY COUNT CPT-4: 45245 12/29/2017 THER/PROPH/DIAG INJ SC/IM CPT-4: 07833 11/30/2017 TRIAMCINOLONE ACET INJ NOS CPT-4: J3301 11/30/2017 DEXAMETHASONE SODIUM PHOS CPT-4: J1100 11/30/2017 CEFTRIAXONE SODIUM INJECTION CPT-4: J0696 11/29/2017 THER/PROPH/DIAG INJ SC/IM CPT-4: 06866 11/29/2017 CEFTRIAXONE SODIUM INJECTION CPT-4: J0696 11/28/2017 THER/PROPH/DIAG INJ SC/IM CPT-4: 75320 11/28/2017 URINALYSIS NONAUTO W/O SCOPE CPT-4: 01541 10/10/2017 THER/PROPH/DIAG INJ SC/IM CPT-4: 33120 10/10/2017 TRIAMCINOLONE ACET INJ NOS CPT-4: J3301 10/10/2017 DEXAMETHASONE SODIUM PHOS CPT-4: J1100 10/10/2017 CEFTRIAXONE SODIUM INJECTION CPT-4: J0696 10/10/2017 THER/PROPH/DIAG INJ SC/IM CPT-4: 10533 10/10/2017 URINE CULTURE/ COLONY COUNT CPT-4: 12838 10/10/2017 THER/PROPH/DIAG INJ SC/IM CPT-4: 16793 11/02/2016 KETOROLAC TROMETHAMINE INJ CPT-4: J1885 11/02/2016 THER/PROPH/DIAG INJ SC/IM CPT-4: 18828 06/15/2016 TRIAMCINOLONE ACET INJ NOS CPT-4: J3301 06/15/2016 DEXAMETHASONE SODIUM PHOS CPT-4: J1100 06/15/2016 THER/PROPH/DIAG INJ SC/IM CPT-4: 07974 04/09/2016 KETOROLAC TROMETHAMINE INJ CPT-4: J1885 04/09/2016 PROMETHAZINE HCL INJECTION CPT-4: J2550 04/09/2016 EXC TR-EXT B9+ERASMO 0.5 CM< CPT-4: 14386 06/12/2015 URINALYSIS NONAUTO W/O SCOPE CPT-4: 81674 05/05/2015 URINE CULTURE/ COLONY COUNT CPT-4: 76891 05/05/2015 URINALYSIS NONAUTO W/O SCOPE CPT-4: 93594 03/24/2015 URINALYSIS NONAUTO W/O SCOPE CPT-4: 69477 02/27/2015 URINE CULTURE/ COLONY COUNT CPT-4: 05440 02/27/2015 THER/PROPH/DIAG INJ SC/IM CPT-4: 43121 04/18/2014 KETOROLAC TROMETHAMINE INJ CPT-4: J1885 04/18/2014 THER/PROPH/DIAG INJ SC/IM CPT-4: 73313 06/05/2013 TRIAMCINOLONE ACET INJ NOS CPT-4: J3301 06/05/2013 THER/PROPH/DIAG INJ SC/IM CPT-4: 06556 11/29/2012 KETOROLAC TROMETHAMINE INJ CPT-4: J1885 11/29/2012 URINALYSIS NONAUTO W/O SCOPE CPT-4: 13438 07/11/2012 URINE CULTURE/ COLONY COUNT CPT-4: 43935 07/11/2012 OCCULT BLOOD FECES CPT-4: 93126 02/17/2012 URINALYSIS NONAUTO W/O SCOPE CPT-4: 73524 08/27/2011 URINE CULTURE/ COLONY COUNT CPT-4: 22587 08/27/2011 URINALYSIS NONAUTO W/O SCOPE CPT-4: 04201 08/17/2011 URINE CULTURE/ COLONY COUNT CPT-4: 68335 08/17/2011 URINALYSIS NONAUTO W/O SCOPE CPT-4: 99159 12/28/2010 URINE CULTURE/ COLONY COUNT CPT-4: 95352 12/28/2010 URINALYSIS NONAUTO W/O SCOPE CPT-4: 92382 11/09/2010 URINE CULTURE/ COLONY COUNT CPT-4: 54722 11/09/2010 URINALYSIS NONAUTO W/O SCOPE CPT-4: 97748 10/29/2010 URINE CULTURE/ COLONY COUNT CPT-4: 79397 10/29/2010 URINE CULTURE/ COLONY COUNT CPT-4: 65797 10/14/2010 URINALYSIS NONAUTO W/O SCOPE CPT-4: 71820 10/14/2010 Vital Signs Date Vital 02/14/2019 Blood Pressure 1: 112/74 Code: 8480-6 Heart Rate 1: 80 bpm Respiratory Rate: 18 bpm Temperature: 36.6 (C) / 97.9 (F) Weight: 124 lbs 01/16/2019 Blood Pressure 1: 122/74 Code: 8480-6 BMI: 22.0 Code: 39048-3 Heart Rate 1: 72 bpm Height: 5'3" [...] 1: 126/72 Code: 8480-6 BMI: 22.7 Code: 88766-1 Heart Rate 1: 72 bpm Height: 5'3" [...] 1: 112/70 Code: 8480-6 BMI: 22.0 Code: 16962-9 Heart Rate 1: 80 bpm Height: 5'3" [...] 1: 122/64 Code: 8480-6 BMI: 21.4 Code: 74085-6 Heart Rate 1: 88 bpm Height: 5'3" Respiratory Rate: 22 bpm SpO2: 96% Tempera ture: 36.8 (C) / 98.2 (F) Weight: 121 lbs 06/22/2017 Blood Pressure 1: 124/78 Code: 8480-6 BMI: 21.6 Code: 55773-0 Heart Rate 1: 76 bpm Height: 5'3" Respiratory Rate: 20 bpm Temperature: 36 .8 (C) / 98.3 (F) Weight: 122 lbs 03/28/2017 Blood Pressure 1: 92/60 Code: 8480-6 BMI: 20.4 C ode: 93122-1 Heart Rate 1: 72 bpm Height: 5'3" Respiratory Rate: 20 bpm Temperature: 36 .9 (C) / 98.4 (F) Weight: 115 lbs 02/16/2017 Blood Pressure 1: 106/70 Code: 8480-6 BMI: 21.3 Code: 86398-2 Heart Rate 1: 82 bpm Height: 5'3" Respiratory Rate: 22 bpm SpO2: 97% Tempera ture: 36.1 (C) / 97.0 (F) Weight: 120 lbs 09/06/2016 Blood Pressure 1: 118/64 Code: 8480-6 BMI: 22.7 Code: 21482-2 Heart Rate 1: 78 bpm Height: 5'3" Respiratory Rate: 20 bpm SpO2: 98% Tempera ture: 36.2 (C) / 97.2 (F) Weight: 128 lbs 08/16/2016 Blood Pressure 1: 118/78 Code: 8480-6 BMI: 22.1 Code: 47540-3 Heart Rate 1: 78 bpm Height: 5'3" Respiratory Rate: 20 bpm SpO2: 97% Tempera ture: 36.2 (C) / 97.1 (F) Weight: 125 lbs 07/19/2016 Blood Pressure 1: 116/68 Code: 8480-6 BMI: 22.5 Code: 76011-1 Heart Rate 1: 76 bpm Height: 5'3" Respiratory Rate: 20 bpm Temperature: 36 .8 (C) / 98.2 (F) Weight: 127 lbs 07/06/2016 Blood Pressure 1: 106/70 Code: 8480-6 BMI: 22.5 Code: 13278-2 Heart Rate 1: 72 bpm Height: 5'3" Respiratory Rate: 20 bpm SpO2: 97% Tempera ture: 36.8 (C) / 98.2 (F) Weight: 127 lbs 06/15/2016 Blood Pressure 1: 136/76 Code: 8480-6 BMI: 22.9 Code: 05056-2 Heart Rate 1: 74 bpm Height: 5'3" Respiratory Rate: 18 bpm SpO2: 98% Tempera ture: 36.4 (C) / 97.6 (F) Weight: 129 lbs 04/09/2016 Blood Pressure 1: 124/78 Code: 8480-6 BMI: 23.0 Code: 51304-5 Heart Rate 1: 86 bpm Height: 5'3" Respiratory Rate: 20 bpm SpO2: 96% Tempera ture: 36.5 (C) / 97.7 (F) Weight: 130 lbs 03/17/2016 Blood Pressure 1: 116/74 Code: 8480-6 BMI: 23.4 Code: 53688-7 Heart Rate 1: 84 bpm Height: 5'3" Respiratory Rate: 20 bpm SpO2: 97% Tempera ture: 36.8 (C) / 98.3 (F) Weight: 132 lbs 11/13/2015 Blood Pressure 1: 124/78 Code: 8480-6 BMI: 23.4 Code: 39926-3 Heart Rate 1: 88 bpm Height: 5'3" Respiratory Rate: 24 bpm SpO2: 98% Tempera ture: 36.8 (C) / 98.2 (F) Weight: 132 lbs 06/12/2015 Blood Pressure 1: 126/78 Code: 8480-6 BMI: 23.6 Code: 97921-1 Heart Rate 1: 80 bpm Height: 5'3" Respiratory Rate: 20 bpm Temperature: 36 .9 (C) / 98.4 (F) Weight: 133 lbs 04/22/2015 Blood Pressure 1: 126/68 Code: 8480-6 BMI: 23.6 Code: 48020-0 Heart Rate 1: 80 bpm Height: 5'3" Respiratory Rate: 20 bpm Temperature: 36 .6 (C) / 97.9 (F) Weight: 133 lbs 03/24/2015 Blood Pressure 1: 116/66 Code: 8480-6 BMI: 22.9 Code: 53946-9 Heart Rate 1: 74 bpm Height: 5'3" Respiratory Rate: 20 bpm Temperature: 36 .4 (C) / 97.6 (F) Weight: 129 lbs 02/27/2015 Blood Pressure 1: 106/64 Code: 8480-6 BMI: 22.7 Code: 96651-9 Heart Rate 1: 74 bpm Height: 5'3" Respiratory Rate: 20 bpm Temperature: 36 .8 (C) / 98.2 (F) Weight: 128 lbs 06/13/2014 Blood Pressure 1: 104/66 Code: 8480-6 BMI: 22.7 Code: 41570-3 Heart Rate 1: 84 bpm Height: 5'3" Respiratory Rate: 20 bpm Temperature: 37 .0 (C) / 98.6 (F) Weight: 128 lbs 04/18/2014 Blood Pressure 1: 112/62 Code: 8480-6 BMI: 22.0 Code: 10295-6 Heart Rate 1: 82 bpm Height: 5'3" Respiratory Rate: 18 bpm Temperature: 36 .4 (C) / 97.6 (F) Weight: 124 lbs 12/05/2013 Blood Pressure 1: 106/70 Code: 8480-6 BMI: 23.7 Code: 63085-8 Heart Rate 1: 84 bpm Height: 5'3" [...] 1: 126/88 Code: 8480-6 BMI: 22.3 Code: 87637-5 Heart Rate 1: 96 bpm Height: 5'4" Respiratory Rate: 20 bpm Temperature: 37 .7 (C) / 99.9 (F) Weight: 130 lbs 11/29/2012 Blood Pressure 1: 122/76 Code: 8480-6 BMI: 23.0 Code: 15969-9 Heart Rate 1: 84 bpm Height: 5'4" Respiratory Rate: 20 bpm Temperature: 36 .9 (C) / 98.4 (F) Weight: 134 lbs 09/26/2012 Blood Pressure 1: 114/76 Code: 8480-6 BMI: 23.0 Code: 87123-3 Heart Rate 1: 84 bpm Height: 5'4" Respiratory Rate: 20 bpm Temperature: 37 .3 (C) / 99.1 (F) Weight: 134 lbs 07/11/2012 Blood Pressure 1: 126/78 Code: 8480-6 BMI: 23.7 Code: 40709-8 Heart Rate 1: 76 bpm Height: 5'4" Respiratory Rate: 20 bpm Temperature: 37 .1 (C) / 98.7 (F) Weight: 138 lbs 02/02/2012 Blood Pressure 1: 108/70 Code: 8480-6 BMI: 23.2 Code: 47132-3 Heart Rate 1: 88 bpm Height: 5'4" Respiratory Rate: 20 bpm Temperature: 36 .4 (C) / 97.6 (F) Weight: 135 lbs 08/17/2011 Blood Pressure 1: 108/70 Code: 8480-6 BMI: 23.2 Code: 16513-1 Heart Rate 1: 72 bpm Height: 5'4" Respiratory Rate: 20 bpm Temperature: 36 .8 (C) / 98.2 (F) Weight: 135 lbs 10/14/2010 Blood Pressure 1: 120/72 Code: 8480-6 BMI: 23.4 Code: 42379-3 Heart Rate 1: 78 bpm Height: 5'3" [...] Insomnia[ICD10: G47.00] Diagnosis: Thrombocytosis[ICD10: D47.3] Alexandra CARROLL [employer] CPT-4: 50673 02/14/2019 ([id number]) OFFICE/OUTPATIENT VISIT EST Diagnosis: Small bowel obstruction[ICD10: K56.609] Diagnosis: FLU VACCINE[ICD10: Z23] Diagnosis: PNEUMOCOCCAL VACCINE[ICD10: Z23] Diagnosis: Onychomycosis[ICD10: B35.1] Alexandra FORDE S. Billie KUNZ [employer] CPT-4: 21823 01/16/2019 ([id number]) OFFICE/OUTPATIENT VISIT EST Diagnosis: Diarrhea, unspecified[ICD10: R19.7] Diagnosis: Radiculopathy, lumbosacral region[ICD10: M54.17] Alexandra CARROLL [employer] CPT-4: 75143 09/18/2018 OFFICE/OUTPATIENT VISIT EST Diagnosis: Other intervertebral disc degeneration, lumbar region[ICD10: M51.36] Diagnosis: Sacroiliitis, not elsewhere classified[ICD10: M46.1] Diagnosis: Obstructive sleep apnea (adult) (pediatric)[ICD10: G47.33] Alexandra CARROLL [facility] CPT-4: 88416 08/10/2018 ([id number]) OFFICE/OUTPATIENT VISIT EST Diagnosis: Fracture of unspecified part of left clavicle, subsequent encounter for fracture with routine healing[ICD10: S42.002D] Diagnosis: Cervicalgia[ICD10: M54.2] Diagnosis: Radiculopathy, lumbosacral region[ICD10: M54.17] Alexandra CARROLL [facility] CPT-4: 66740 03/27/2018 ([id number]) OFFICE/OUTPATIENT VISIT EST Diagnosis: Fracture of unspecified part of left clavicle, subsequent encounter for fracture with routine healing[ICD10: S42.002D] Diagnosis: Other intervertebral disc degeneration, lumbar region[ICD10: M51.36] Diagnosis: Unspecified fracture of first thoracic vertebra, subsequent encounter for fracture with routine healing[ICD10: S22.019D] Diagnosis: Unspecified fracture of second thoracic vertebra, subsequent encounter for fracture with routine healing[ICD10: S22.029D] Alexandra CARROLL [facility] CPT-4: 85966 02/23/2018 ([id number]) OFFICE/OUTPATIENT VISIT EST Diagnosis: Fracture of unspecified part of left clavicle, subsequent encounter for fracture with routine healing[ICD10: S42.002D] Diagnosis: Unspecified fracture of first thoracic vertebra, subsequent encounter for fracture with routine healing[ICD10: S22.019D] Diagnosis: Unspecified fracture of second thoracic vertebra, subsequent encounter for fracture with routine healing[ICD10: S22.029D] Alexandrateja CARROLL [facility] CPT-4: 12061 01/24/2018 ([id number]) OFFICE/OUTPATIENT VISIT EST Diagnosis: Migraine, unspecified, not intractable, without status migrainosus[ICD10: G43.909] Alexandra CARROLL [facility] CPT - 4: 09735 01/17/2018 ([id number]) OFFICE/OUTPATIENT VISIT EST Diagnosis: Hematuria, unspecified[ICD10: R31.9] Diagnosis: Other intervertebral disc degeneration, lumbar region[ICD10: M51.36] Diagnosis: Retention of urine, unspecified[ICD10: R33.9] Alexandra CARROLL [facility] CPT-4: 29482 12/29/2017 OFFICE/OUTPATIENT VISIT EST Diagnosis: Fracture of [...] Diagnosis: Low back pain[ICD10: M54.5] Alexandra KUNZ [facility] CPT-4: 31882 12/06/2017 ([id number]) OFFICE/OUTPATIENT VISIT EST Diagnosis: Cellulitis of right upper limb[ICD10: L03.113] Diagnosis: Allergy status to other antibiotic agents status[ICD10: Z88.1] Vandana CARROLL [facility] CPT-4: 40649 12/01/2017 ([id number]) OFFICE/OUTPATIENT VISIT EST Diagnosis: Cellulitis of right upper limb[ICD10: L03.113] Diagnosis: Allergy status to other antibiotic agents status[ICD10: Z88.1] Vandana Cavazos. DEANNE [facility] CPT-4: 92522 11/30/2017 ([id number]) OFFICE/OUTPATIENT VISIT EST Diagnosis: Cellulitis of right upper limb[ICD10: L03.113] Vandana Cavazos. DEANNE SALGUERO [facility] CPT-4: 70791 11/29/2017 ([id number]) OFFICE/OUTPATIENT VISIT EST Diagnosis: Cellulitis of right upper limb[ICD10: L03.113] Vandana CARROLL DO [facility] CPT-4: 88975 11/28/2017 ([id number]) OFFICE/OUTPATIENT VISIT EST Diagnosis: Other intervertebral disc degeneration, lumbar region[ICD10: M51.36] Diagnosis: Other retention of urine[ICD10: R33.8] Diagnosis: Primary insomnia[ICD10: F51.01] Diagnosis: Other spondylosis, site unspecified[ICD10: M47.899] Alexandra CARROLL DO [facility] CPT-4: 21437 11/17/2017 ([id number]) OFFICE/OUTPATIENT VISIT EST Diagnosis: Radiculopathy, lumbosacral region[ICD10: M54.17] Diagnosis: Other retention of urine[ICD10: R33.8] Diagnosis: Urinary tract infection, site not specified[ICD10: N39.0] Vandana CARROLL DO [facility] CPT-4: 12748 10/10/2017 ([id number]) PREV VISIT EST AGE 40-64 Diagnosis: Encounter for general adult medical examination without abnormal findings[ICD10: Z00.00] Diagnosis: Other intervertebral disc degeneration, lumbar region[ICD10: M51.36] Diagnosis: Hypothyroidism, unspecified[ICD10: E03.9] Diagnosis: Mixed hyperlipidemia[ICD10: E78.2] Alexandra CARROLL DO [facility] CPT-4: 17569 06/22/2017 ([id number]) OFFICE/OUTPATIENT VISIT EST Diagnosis: URI, ACUTE[ICD10: J06.9] Alexandra Danelawandavioletta SHAFFERALEXANDRA Ty ROMAN [facility] CPT-4: 83323 03/28/2017 OFFICE/OUTPATIENT VISIT EST Diagnosis: Acute sinusitis, unspecified[ICD10: J01.90] Vandana CARROLL DO [facility] CPT-4: 44594 02/16/2017 ([id number]) OFFICE/OUTPATIENT VISIT EST Diagnosis: Migraine, unspecified, not intractable, without status migrainosus[ICD10: G43.909] Alexandra Danejames ALEXANDRA Ty CARROLL DO [facility] CPT - 4: 74004 11/02/2016 ([id number]) OFFICE/OUTPATIENT VISIT EST Diagnosis: Pain in thoracic spine[ICD10: M54.6] Diagnosis: Chondrocostal junction syndrome [Tietze][ICD10: M94.0] Alexandra CARROLL [facility] CPT-4: 23620 09/06/2016 OFFICE/OUTPATIENT VISIT EST Diagnosis: Acute sinusitis, unspecified[ICD10: J01.90] Vidya Kaleb [facility]: 39562 08/16/2016 ([id number]) OFFICE/OUTPATIENT VISIT EST Diagnosis: Primary insomnia[ICD10: F51.01] Diagnosis: Cramp and spasm[ICD10: R25.2] Diagnosis: Major depressive disorder, single episode, mild[ICD10: F32.0] Alexandra CARROLL [facility] CPT-4: 14450 07/19/2016 ([id number]) OFFICE/OUTPATIENT VISIT EST Diagnosis: Obstructive sleep apnea (adult) (pediatric)[ICD10: G47.33] Diagnosis: Other fatigue[ICD10: R53.83] Diagnosis: Allergic rhinitis due to pollen[ICD10: J30.1] Diagnosis: Headache[ICD10: R51] Alexandra BURLESON [facility] CPT-4: 29053 07/06/2016 ([id number]) OFFICE/OUTPATIENT VISIT EST Diagnosis: Acute recurrent sinusitis, unspecified[ICD10: J01.91] Diagnosis: Allergic rhinitis due to pollen[ICD10: J30.1] [facility]: 13005 06/15/2016 ([id number]) OFFICE/OUTPATIENT VISIT EST Diagnosis: Migraine, unspecified, not intractable, without status migrainosus[ICD10: G43.909] Diagnosis: Allergic rhinitis, unspecified[ICD10: J30.9] Nae Mckay ALEXANDRA CARROLL [facility] CPT-4: 71519 04/09/2016 ([id number]) OFFICE/OUTPATIENT VISIT EST Diagnosis: Hypothyroidism, unspecified[ICD10: E03.9] Diagnosis: Other fatigue[ICD10: R53.83] Diagnosis: Mixed hyperlipidemia[ICD10: E78.2] Diagnosis: Major depressive disorder, single episode, mild[ICD10: F32.0] Alexandra CARROLL DO [facility] CPT-4: 74207 03/17/2016 ([id number]) OFFICE/OUTPATIENT VISIT EST Diagnosis: Insomnia, unspecified[ICD10: G47.00] Diagnosis: Encounter for therapeutic drug level monitoring[ICD10: Z51.81] Nae CARROLL DO [facility] CPT-4: 73704 11/13/2015 ([id number]) OFFICE/OUTPATIENT VISIT EST Diagnosis: Hematuria, unspecified[ICD10: R31.9] Alexandra CARROLL DO [facility] CPT-4: 74574 05/05/2015 ([id number]) OFFICE/OUTPATIENT VISIT EST Diagnosis: Other intervertebral disc degeneration, lumbar region[ICD10: M51.36] Diagnosis: Radiculopathy, lumbosacral region[ICD10: M54.17] Alexandra CARROLL DO [facility] CPT-4: 62586 04/22/2015 ([id number]) OFFICE/OUTPATIENT VISIT EST Diagnosis: Low back pain[ICD10: M54.5] Diagnosis: Recurrent and persistent hematuria with unspecified morphologic changes[ICD10: N02.9] Alexandra CARROLL DO [facility] CPT-4: 44169 03/24/2015 ([id number]) OFFICE/OUTPATIENT VISIT EST Diagnosis: Acute sinusitis, unspecified[ICD10: J01.90] Diagnosis: Headache[ICD10: R51] Diagnosis: Retention of urine, unspecified[ICD10: R33.9] Diagnosis: Hypothyroidism, unspecified[ICD10: E03.9] Alexandra CARROLL DO [facility] CPT-4: 60429 02/27/2015 ([id number]) PREV VISIT EST AGE 40-64 Diagnosis: ROUTINE MEDICAL EXAM[ICD9: V70.0] Diagnosis: HYPOTHYROIDISM[ICD9: 244.9] Diagnosis: HYPERLIPIDEMIA NEC/NOS[ICD9: 272.4] Alexandra CARROLL DO [facility] CPT-4: 45235 06/13/2014 ([id number]) OFFICE/OUTPATIENT VISIT EST Diagnosis: CEPHALGIA[ICD9: 784.0] Diagnosis: Nausea[ICD9: 787.02] Shalini CavazosAri DEANNE SALGUERO [facility] CPT-4: 30400 04/18/2014 ([id number]) OFFICE/OUTPATIENT VISIT EST Diagnosis: INSOMNIA NOS[ICD9: 780.52] Diagnosis: Complicated grieving[ICD9: 309.0] Alexandra Velalawandavioletta SHAFFERLIN Dani CavazosAri DANENDVIOLETTA SALGUERO [facility] CPT-4: 23188 12/05/2013 ([id number]) OFFICE/OUTPATIENT VISIT EST Diagnosis: Muscle twitch[ICD9: 781.0] Diagnosis: ALLERGIC RHINITIS[ICD9: 477.9] Alexandra Velalawandavioletta SHAFFERALEXANDRA Macy Ari DEANNE SALGUERO [facility] CPT-4: 61279 06/05/2013 ([id number]) OFFICE/OUTPATIENT VISIT EST Diagnosis: DEPRESSIVE DISORDER NEC[ICD9: 311] Alexandra Danelawandavioletta MARK INGRID S. DANENDVIOLETTA SALGUERO [facility] CPT-4: 73372 05/22/2013 OFFICE/OUTPATIENT VISIT EST Diagnosis: Shingles[ICD9: 053.9] Alexandra SHAFFERLINE MacyAri DEANNE SALGUERO [facility] CPT-4: 13843 04/05/2013 ([id number]) OFFICE/OUTPATIENT VISIT EST Diagnosis: DEPRESSIVE DISORDER NEC[ICD9: 311] Alexandra Danelawandavioletta MARK QUINTERO S. DANENDER [facility] CPT-4: 36321 03/26/2013 ([id number]) OFFICE/OUTPATIENT VISIT EST Diagnosis: Complicated grieving[ICD9: 309.0] Alexandra Danejames Louise MacyAri DEANNE SALGUERO [facility] CPT-4: 33286 03/06/2013 ([id number]) OFFICE/OUTPATIENT VISIT EST Diagnosis: CEPHALGIA, TENSION[ICD9: 307.81] Diagnosis: MIGRAINE NOS/NOT INTRCBL[ICD9: 346.90] Diagnosis: Cervicalgia[ICD9: 723.1] Alexandra FORDE MacyAri GIULIA ROMAN [facility] CPT-4: 29944 11/29/2012 ([id number]) OFFICE/OUTPATIENT VISIT EST Diagnosis: Jaw pain[ICD9: 784.92] Diagnosis: Shoulder pain[ICD9: 719.41] Diagnosis: Family history of premature coronary artery disease[ICD9: V17.3] Alexandra CARROLL [facility] CPT-4: 59798 09/26/2012 ([id number]) OFFICE/OUTPATIENT VISIT EST Diagnosis: ABDOMINAL PAIN[ICD9: 789.00] Diagnosis: Constipation[ICD9: 564.00] Diagnosis: Hematuria[ICD9: 599.70] Alexandra BURLESON [facility] CPT-4: 47544 07/11/2012 ([id number]) OFFICE/OUTPATIENT VISIT EST Diagnosis: ANEMIA NOS[ICD9: 285.9] Alexandra BURLESON [facility] CPT-4: 46041 02/17/2012 ([id number]) PREV VISIT EST AGE 40-64 Diagnosis: ROUTINE MEDICAL EXAM[ICD9: V70.0] Diagnosis: HYPOTHYROIDISM[ICD9: 244.9] Diagnosis: HYPERLIPIDEMIA NEC/NOS[ICD9: 272.4] Diagnosis: Obstructive sleep apnea[ICD9: 327.23] Alexandra CARROLL [facility] CPT-4: 15831 02/02/2012 ([id number]) OFFICE/OUTPATIENT VISIT EST Diagnosis: URINARY TRACT INFECTION[ICD9: 599.0] [facility]PT-[facility]: 70257 08/27/2011 ([id number]) OFFICE/OUTPATIENT VISIT EST Diagnosis: URINARY TRACT INFECTION[ICD9: 599.0] Diagnosis: ACUTE CYSTITIS[ICD9: 595.0] Alexandra FORDE S. O [facility] CPT-4: 90324 08/17/2011 OFFICE/OUTPATIENT VISIT EST Diagnosis: URINARY TRACT INFECTION[ICD9: 599.0] Steph MARINQUE BLAKE [facility]. [facility] CPT-[facility]: 98908 10/14/2010 Plan of Care Planned Activity Notes [...] : G47.00 02/14/2019 Appointment: Alexandra Carroll WPtel: [address] [place], [place] [phone] US CANCELED 02/12/2019 Visit Diagnosis Plan: Small bowel obstruction Discussi on: S/P surgery in September with postop complications of wound dehiscence ICD-9 : 560.9 ICD-10 : K56.609 01/16/2019 Visit Diagnosis Plan: Onychomycosis Discussion: Send n ail for culture ICD-9 : 110.1 ICD-10 : B35.1 01/16/2019 Appointment: Alexandra Carroll WPtel: [address] [place], [place] [phone] US MEDICATION REVIEW 01/16/2019 Appointment: Alexandra Carroll WPtel: [address] [place], [place] [phone] US CANCELED 12/12/2018 Visit Diagnosis Plan: Radiculopathy, lumbosacral regio n Discussion: Had left SI joint injection by Dr. Baig about 2 weeks ago and has fwup with him ICD-9 : 724.4 ICD-10 : M54.17 09/18/2018 Visit Diagnosis Plan: Diarrhea, unspecified Discussion : Due for updated colonoscopy ICD-9 : 787.91 ICD-10 : R19.7 09/18/2018 Appointment: Alexandra Carroll WPtel: [address] [place], [place] [phone] US PATIENT CONSULT 15 09/18/2018 Care Plan: Referral Order SNOMED-CT : 30 [id number] Pending 09/18/2018 Visit Diagnosis Plan: Sacroiliitis, not [...] : G47.33 08/10/2018 Appointment: Alexandra Carroll WPtel: [address] [place], [place] [phone] US MEDICATION REVIEW 08/10/2018 Care Plan: Referral Order SNOMED-CT : 30 [id number] Pending 08/10/2018 Appointment: Alexandra Carroll WPtel: [facility] US CANCELED 04/17/2018 Visit Diagnosis Plan: Fracture [...] : M54.17 03/27/2018 Appointment: Alexandra Carroll WPtel: [facility] US FOLLOW UP 03/27/2018 Visit Diagnosis Plan: [...] ICD-10 : M51.36 02/23/2018 Appointment: Alexandra Carrolltel: [address] [place] [address] US FOLLOW UP 02/23/2018 Patient Education: gabapentin- [employer] Coupon [phone] [email or web address] Completed 02/23/2018 Visit Diagnosis Plan: Fracture of unspec ified part of left clavicle, subsequent encounter for fracture with routine healing Discussion: Hold on PT and do home stretches Trial of gabapentin Recheck 4 weeks ICD-9 : V54.11 ICD-10 : S42.002D 01/24/2018 Appointment: Alexandra Carrolltel: [address] [place] [address] US FOLLOW UP 01/24/2018 Visit Diagnosis Plan: Migraine, unspecif ied, not intractable, without status migrainosus Discussion: Toradol and phenergan given ICD-9 : 346.90 ICD-10 : G43.909 01/17/2018 Appointment: Alexandra Carrolltel: [address] [place] [address] ACUTE ILLNESS 01/17/2018 Visit Diagnosis Plan: Hematuria, [...] 788.20 ICD-10 : R33.9 12/29/2017 Appointment: Alexandra Carrolltel: [address] [place], [place] [phone] ACUTE ILLNESS 12/29/2017 Care Plan: US EXAM PELVIC COMPLETE LOINC : 44109-5 Pending 12/29/2017 Care Plan: ECHO EXAM OF ABDOMEN LOINC : 08350-3 Pending 12/29/2017 Care Plan: Referral Order SNOMED-CT : 30 [id number] Pending 12/29/2017 Visit Diagnosis Plan: Fracture of unspec ified part of left clavicle, subsequent encounter for fracture with routine healing Discussion: Start PT in another 7-14 days Off work for the rest of this week then may return to part-time work on 12/12/17 Fwup in 4 weeks ICD-9 : V54.11 ICD-10 : S42.002D 12/06/2017 Appointment: Alexandra Carroll tel: [phone] [facility] US FOLLOW UP 12/06/2017 Patient Education: Patient [...] : Z88.1 12/01/2017 Appointment: Vandana Crowe [address] [place], [place] [phone] US FOLLOW UP 12/01/2017 Patient Education: Patient [...] : L03.113 11/30/2017 Appointment: Vandana Crowe [address] [facility] 11/30/2017 Patient Education: Patient Medication Summary [...] ICD-10 : L03.113 11/29/2017 Appointment: Vandana Crowe [address] [place], [place] [address] FOLLOW UP 11/29/2017 Patient Education: Patient Medication [...] : L03.113 11/28/2017 Appointment: Vandana Crowe [address] [facility] ACUTE ILLNESS 11/28/2017 Patient Education: Patient [...] M47.899 11/17/2017 Appointment: [phone] [facility] [facility] 11/17/2017 Patient Education: Patient Medication Summary Completed 11/17/2017 Care Plan: Referral Order SNOMED-CT : 30 [id number] Pending 11/17/2017 Patient Education: Patient Medication Summary Completed 10/12/2017 Care Plan: MRI LUMBAR SPINE W/O DYE LOIN C : 52108-9 Pending 10/12/2017 Care Plan: X-RAY EXAM L-S SPINE 2/3 VWS LOINC : 70616-2 Pending 10/11/2017 Visit Diagnosis Plan: Other retention [...] ICD-10 : M54.17 10/10/2017 Appointment: Vandana Crowe [address] [place] [address] ACUTE ILLNESS 10/10/2017 Patient Education: Patient Medication Summary Completed 10/10/2017 Appointment: Vandana Crowe [address] [place] [address] ACUTE ILLNESS 08/01/2017 Visit Diagnosis Plan: Other intervertebral disc degene ration, lumbar region Discussion: Core strengtheing and inversion table and if worsening will need updated MRI ICD-9 : 722.52 ICD-10 : M51.36 06/22/2017 Visit Diagnosis Plan: Encounter for [facility] adult medical examination without abnormal findings Discussion: Lab dis ussed Follow Up: 6 months ICD-9 : V70.0 ICD-10 : Z00.00 06/22/2017 Appointment: Alexandra Carroll WPtel: [facility] [address] Annual Well Visit 06/22/2017 Patient Education: Patient Medication Summary Completed 06/22/2017 Patient Education: Patient Medication Summary Completed 06/16/2017 Care Plan: COMPREHEN METABOLIC PANEL [place] : 20921-6 Pending 06/16/2017 Care Plan: ASSAY THYROID STIM HORMONE Pen ding 06/16/2017 Care Plan: ASSAY OF FREE THYROXINE Pendin g 06/16/2017 Care Plan: LIPID PANEL LOINC : 92410-1 Pending 06/16/2017 Care Plan: CBC Pending 06/16/2017 [...] Fluids... 03/28/2017 Appointment: Alexandra Carroll WPtel: [phone] ACUTE ILLNESS 03/28/2017 Patient Education: Patient Medication Summary Completed 03/28/2017 Visit Diagnosis Plan: Acute sinusitis, unspecified Dis cussion: cefdinir and medrol dose pack prescribed to be taken as directed. tylenol/ibuprofen as needed. educated on importance of taking singulair or zyrtec daily to prevent worsening symptoms. keep hydrated. ICD-9 : 461.9 ICD-10 : J01.90 02/16/2017 Appointment: Vandana Crowe [address] [place] [address] ACUTE ILLNESS 02/16/2017 Patient Education: Patient Medication Summary Completed 02/16/2017 Appointment: Alexandra Carroll WPtel: [facility] [address] INJECTION 11/02/2016 Patient Education: Patient Medication Summary Completed 11/02/2016 Visit Diagnosis Plan: Pain in thoracic spine Discussio n: Increase flexeril to 10mg po BID Add Mobic 15mg po daily Towel stretch May see chiropractor to adjust ribs Notify if persists or worsening ICD-9 : 724.1 ICD-10 : M54.6 09/06/2016 Appointment: Alexandra Carroll WPtel: [phone] ACUTE ILLNESS 09/06/2016 Patient Education: Patient Medication Summary Completed 09/06/2016 Visit Plan: Due to hx, ERx Cefdinir and Prednisone (discussed risks for both) Given bottle for nasal saline rinses Tylenol/Ibuprofen prn pain/fever Fluids/rest Discussed s/s of worsening, RTC if no improvement 08/16/2016 Appointment: Vidya Manuel WPtel: [address] [place], [place] [address] ACUTE ILLNESS 08/16/2016 Patient Education: Patient Medication [...] : F51.01 07/19/2016 Appointment: Alexandra Carroll WPtel: [address] [place], [place] [phone] 07/15 confirmed`sl FOLLOW UP 07/19/2016 Patient Education: [...] G47.33 07/06/2016 Appointment: Alexandra Carroll WPtel: [facility] 07/05 confirmed-sp FOLLOW UP 07/06/2016 Patient [...] : J30.1 06/15/2016 Appointment: Alexandra Carroll WPtel: [address] [place], [place] [phone] 06/14 lm ~ ACUTE ILLNESS 06/15/2016 Patient Education: Patient Medication Summary Completed 06/15/2016 Visit Diagnosis Plan: Migraine, unspecif ied, not intractable, without status migrainosus Discussion: Injection as above Drink ple nty of water No driving x 6 hours Rest No OTC nsaids today Follow up PRN Refill called of claritin-d ICD-9 : 346.90 ICD-10 : G43.909 04/09/2016 Appointment: Nae Mckay [address] [place] [address] ACUTE ILLNESS 04/09/2016 Patient Education: Patient Medication [...] : E78.2 03/17/2016 Appointment: Alexandra Carroll WPtel: [address] [place], [place] [phone] 03/16 nvm~sl 03/17 confirmed`sl FOLLOW UP 0 03/17/2016 Patient Education: Patient Medication Summary Completed 03/17/2016 Appointment: Alexandra Carroll WPtel: [phone] [place], [place] [id number] 03/11 lm~sl 03/15lm `sl 03/15 confirmed`sl FOLLOW [...] same robert. If working well, continue the f1soefb office visits. Call if not working well, and will restart xanax at for sleep. 11/13/2015 Appointment: Nae Mckay [address] [place], [place] [id number] 11/11 confirmed~sl FOLLOW UP 11/13/2015 Patient Education: Patient Medication Summary Completed 11/13/2015 Appointment: Alexandra Carroll WPtel: [address] [place], [place] [phone] Suture Removal 06/23/2015 Patient Education: Patient Medication Summary Completed 06/23/2015 Visit Plan: Removal of lesion above usin g 3-0 punch biopsy Return in 10 days for suture removal 06/12/2015 Appointment: Alexandra Carroll WPtel: [address] [place], [place] [phone] 06/10 lm ~sl ACUTE ILLNESS 06/12/2015 Patient Education: Patient Medication Summary Completed 06/12/2015 Referral: Syo Garcia [facility]el: [id number] Schedule patient around lunch time and 3 weeks from 04/22/2015 ~ Spoke with Kiesha at Dr[facility] Sandoval [facility] and 04/24/15 and scheduled the patient ~sl 04/24/15 Patient is informed~ 06/03 Patient canceled the appointment ~ Patient did not show up for scheduled appointment-sp Appoint ment Requested 05/21/2015 Appointment: Alexandra Carroll WPtel: [address] [place], [place] [phone] [facility] 05/05/2015 Patient Education: Patient Medication Summary Completed 05/05/2015 Visit Plan: Starts PT today Schedule wit h Dr. Garcia for epidural CT abdomen/pelvis results discussed Sees [facility] in April and will get checked then 04/22/2015 Appointment: Alexandra Carroll WPtel: [address] [place], [place] [phone] 04/21 confirmed~lb ACUTE ILLNESS 04/22/2015 Patient Education: Patient Medication Summary Completed 04/22/2015 Referral: Lincoln Hernandze WPtel: [address] [place] [address] Referral Initiated 04/10/2015 Patient Education: Patient Medication Summary Completed 04/09/2015 Visit Plan: Start with lumosacral spine x-ray--will likely need MRI of L/S spine x-ray Needs urology--has had to have bladder stretched in past Tivorbex 03/24/2015 Appointment: Alexandra Carroll WPtel: [address] [place], [place] [id number] 03/21/15 appt confirmed cn ACUTE ILLNESS 03/24 Patient Education: Patient Medication Summary Completed 03/24/2015 Visit Plan: Saline nasal flushes prn. Ty lenol/Motrin prn headache. Notify if persists/symptoms worsening. Cefuroxime to cover both sinuses and UTI Culture urine Check lab 02/27/2015 Appointment: Alexandra Carroll WPtel: [address] [place], [place] [phone] 02/26/15 vm to confirm and need new insu meri on file is inactive cn....02/27/15 appt confirmed cn ACUTE ILLNESS 015 Patient Education: Patient Medication Summary Completed 02/27/2015 Visit Plan: Lab discussed Stop simvastat in Check lipids in 6mos Continue all other meds at current dose Had Pap and Mammo 3 weeks ago 06/13/2014 Appointment: Alexandra Carroll WPtel: [address] [place], [place] [phone] Annual Well Visit 06/13/2014 Patient Education: Patient Medication Summary Completed 06/13/2014 Appointment: Shalini Walters WPtel: [address] [place] [address] ACUTE ILLNESS 04/18/2014 Patient Education: Patient Medication Summary Completed 04/18/2014 Visit Plan: Check lab in May then fwup Can try decreasing xanax to 1mg q HS with melatonin 5-10mg q HS 12/05/2013 Appointment: Alexandra Carroll WPtel: [address] [place] [address] 12/04 FOLLOW UP 12/05/2013 Patient Education: Patient Medication Summary Completed 12/05/2013 Appointment: Alexandra Carroll WPtel: [address] [place] [address] FOLLOW UP 06/05/2013 Patient Education: Patient Medication Summary Completed 06/05/2013 Appointment: Alexandra Carroll WPtel: [address] [place] [address] FOLLOW UP 05/22/2013 Patient Education: Patient Medication Summary Completed 05/22/2013 Visit Plan: Zovirax for 2wks Notify if p ain worsens or if persists 04/05/2013 Appointment: Alexandra Carroll WPtel: [address] [place] [address] ACUTE ILLNESS 04/05/2013 Patient Education: Patient Medication Summary Completed 04/05/2013 Visit Plan: Keep Wellbutrin at current d ose Pt did see for counseling 03/26/2013 Appointment: Alexandra Carroll WPtel: [address] [place] [address] ACUTE ILLNESS 03/26/2013 Patient Education: Patient Medication Summary Completed 03/26/2013 Visit Plan: Continue citalopram at curre nt dose Increase xanax to 1-2mg q HS for sleep Add Wellbutrin Sr 100mg q AM Start Counseling 03/06/2013 Appointment: Alexandra Carroll WPtel: [address] [place] [address] ACUTE ILLNESS 03/06/2013 Patient Education: Patient Medication Summary Completed 03/06/2013 Appointment: Alexandra Carrolltel: [address] [place] [address] ACUTE ILLNESS 11/29/2012 Patient Education: Patient Medication Summary Completed 11/29/2012 Appointment: Alexandra Carroll WPtel: [address] [place] [address] ACUTE ILLNESS 09/26/2012 Patient Education: Patient Medication Summary Completed 09/26/2012 Appointment: Alexandra Carrolltel: [address] [place] [address] ACUTE ILLNESS 07/11/2012 Patient Education: Patient Medication Summary Completed 07/11/2012 Appointment: Alexandra Carrolltel: [address] [place] [address] LAB 02/17/2012 Patient Education: Patient Medication Summary Completed 02/17/2012 Visit Plan: Check fasting lab Start annie y ca with Vit D Cont CPAP Mammo up-to-date Hemoccult card given 02/02/2012 Appointment: Alexandra Carrolltel: [address] [place] [address] PHYSICAL 02/02/2012 Patient Education: Patient Medication Summary Completed 02/02/2012 Appointment: Alexandra Carrolltel: [address] [place] [address] [place] UA 08/27/2011 Patient Education: Patient Medication Summary Completed 08/27/2011 Visit Plan: Levaquin and Diflucan for 1w k Then cipro QOD for prophylaxis 08/17/2011 Appointment: Alexandra Carrolltel: [address] [place] [address] FOLLOW UP 08/17/2011 Patient Education: Patient Medication Summary Completed 08/17/2011 Appointment: Alexandra Carroll WPtel: [phone] [facility] UA 12/28/2010 Patient Education: Patient Medication Summary Completed 12/28/2010 Appointment: Alexandra Carroll WPtel: [address] [place], [place] [phone] UA 11/09/2010 Patient Education: Patient Medication Summary Completed 11/09/2010 Appointment: Alexandra Carroll WPtel: [address] [place], [place] [phone] UA 10/29/2010 Patient Education: Patient Medication Summary Completed 10/29/2010 Appointment: Steph Bowen WPtel: [address] [place], [place] [id number] ACUTE ILLNESS 10/14/2010 Patient Education: Patient Medication Summary Completed 10/14/2010 Referral: Florian Baig WPtel: [facility] [address] [place] Referral Initiated Referral: Luis Enrique Jasso WPtel: [facility] [address] [place] Referral Appointment Requested Referral: Florian Baig WPtel: [facility] [address] [place] Referral Appointment Requested Referral: Caleb Glaser WPtel: [phone] [place] Referral Appointment Requested Referral: Florian Baig WPtel: [facility] [address] 1 [id number] [place] Referral Initiated Referral: Florian Baig WPtel: [facility] [address] 1 [id number] [place] Referral Appointment Requested Instructions Comment . [...] same robert. If working well, continue the j7oaxfa office visits. Call if not working well, and will restart xanax at HS for sleep. . Removal of lesion above using 3-0 punc h biopsy Return in 10 days for suture removal . Starts PT today Schedule with Dr. Garcia for epidural CT abdomen/pelvis results discussed Sees [employer] in April and will get checked then [...]
--- OUTSIDE RECORDS SUMMARY | 2019-09-02 00:34 | XMS REPORT | CCD ---
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 Name Role Phone Alexandra Carroll D.O., PP Unavailable CCM Unavailable Summary Purpose Interface Exchange Insurance Providers Payer name Policy type / Coverage type Covered constitution party ID Effective Begin Date Effective End Date [facility] Insurance [id number] 2017 Un known Family History Family History data not found Social History Social History Element Codes Description Effective Dates Tobacco history SNOMED CT: 451848810 Nonsmoker 10/14/2010 Allergies, Adverse Reactions, Alerts Substance Reaction Codes Entered Date Inactivated Date Status MORPHINE SULFATE RxNorm: 8579334 10/14/2010 No Inactive Da te Active CEPHALOSPORINS [...] Fill Instructions cyclobenzaprine 10 mg tablet RxNorm: 787911 1 Tablet(s) Oral three times a day as needed for muscle spasm 02/12/2019 02/12/2019 Inactive Xanax 1 mg tablet RxNorm: 586603 1-2 Tablet(s) Oral e very night at bedtime as needed for sleep 02/09/2019 03/10/2019 Active Generic For:LAVELLE AX 1MG 10/11/2016 11:15:13 AM Xanax 1 mg tablet RxNorm: 312626 1-2 Tablet(s) Oral e very night at bedtime as needed for sleep 01/22/2019 02/08/2019 Inactive Generic For:LAVELLE AX 1MG 10/11/2016 11:15:13 AM Celexa 40 mg tablet RxNorm: 141449 1 Tablet(s) Oral QD 01/17/2019 Active - First Attempt Ref: [id number] Xanax 1 mg tablet RxNorm: 322555 1 Tablet(s) Oral every night a t bedtime 01/08/2019 01/21/2019 Inactive levothyroxine 88 mcg tablet RxNorm: 722045 TAKE 1 TABLET BY NINA TH DAILY 12/19/2018 06/16/2019 Active - First Attempt Ref: [id number] Xanax 1 mg tablet RxNorm: 307505 1 Tablet(s) Oral every night a t bedtime 12/06/2018 01/05/2019 Inactive Singulair 10 mg tablet RxNorm: 592396 1 Tablet(s) Oral every ni ght at bedtime 11/23/2018 11/17/2019 Active - First Attempt Ref: [id number] Celexa 40 mg tablet RxNorm: 447827 1 Tablet(s) Oral 11/23/20182018 Inactive - First Attempt Ref: [id number] cyclobenzaprine 10 mg tablet RxNorm: 586989 1 Tablet(s) Oral three times a day as needed for muscle spasm 11/23/2018 02/11/2019 Inactive Xanax 1 mg tablet RxNorm: 859984 1 Tablet(s) PO QHS 11/06/20182018 Inactive Xanax 1 mg tablet RxNorm: 478572 1 Tablet(s) PO QHS 09/26/20182018 Inactive Singulair 10 mg tablet RxNorm: 399788 TAKE 1 TABLET BY MOUTH EVERY NIGHT AT BEDTIME 08/16/2018 11/22/2018 Inactive - First Attempt Ref: [id number] Xanax 1 mg tablet RxNorm: 091904 1 Tablet(s) PO QHS 08/01/20182018 Inactive levothyroxine 88 mcg tablet RxNorm: 271820 TAKE 1 TABLET BY NINA TH DAILY 07/31/2018 12/18/2018 Inactive - First Attempt Ref: [id number] Celexa 40 mg tablet RxNorm: 549280 TAKE 1 TABLET BY MOUTH DAILY 04/201811/22/2018 Inactive - First Attempt Ref: [id number] 54 bupropion HCl SR 100 mg tablet,12 hr sustained-release RxNor m: 267829 1 Tablet(s) PO BID 07/12/2018 07/06/2019 Active - Ref: [id number] 7 Claritin-D 24 Hour 10 mg-240 mg tablet,extended release RxNo rm: 5468612 1 Tablet(s) PO QD 06/29/2018 2018 Inactive Claritin-D 24 Hour 10 mg-240 mg tablet,extended release RxNo rm: 0228913 1 Tablet(s) PO QD 06/29/2018 2018 Inactive Xanax 1 mg tablet RxNorm: 918679 1-2 Tablet(s) PO QHS as needed for sleep 05/26/2018 06/23/2018 Inactive Generic For:XANAX 1M G 10/11/2016 11:15:13 AM Xanax 1 mg tablet RxNorm: 925608 1-2 Tablet(s) PO QHS as needed for sleep 03/28/2018 05/25/2018 Inactive Generic For:XANAX 1M G 10/11/2016 11:15:13 AM Macrobid 100 mg capsule RxNorm: 231527 1 Capsule(s) PO BID 03/27/19 19 03/31/2018 Inactive gabapentin 300 mg capsule RxNorm: 665168 1 Capsule(s) PO QHS 201703/26/2018 Inactive Claritin-D 24 Hour 10 mg-240 mg tablet,extended release RxNo rm: 6348487 1 Tablet(s) PO QD 01/26/2018 02/24/2018 Inactive gabapentin 100 mg capsule RxNorm: 265315 1 Capsule(s) P O QHS for 1 week then 2 po q HS for 2 weeks then 3 po q HS 01/24/2018 03/26/2018 Inactive Xanax 1 mg tablet RxNorm: 260274 1-2 Tablet(s) PO QHS as needed for sleep 01/24/2018 03/24/2018 Inactive Generic For:XANAX 1M G 10/11/2016 11:15:13 AM prednisone 20 mg tablet RxNorm: 941979 1 Tablet(s) PO T ID for 3 days then 1 po BID for 3 days then one daily for 3 days 12/29/2017 03/26/2018 Inactiv e prednisone 20 mg tablet RxNorm: 976565 3 Tablet(s) PO T ID for 3 days then 1 po BID for 3 days then one daily for 3 days 12/29/2017 12/29/2017 Inactiv e Macrobid 100 mg capsule RxNorm: 253366 1 Capsule(s) PO BID 12/30/19 18 01/02/2018 Inactive Xanax 1 mg tablet RxNorm: 584568 1-2 Tablet(s) PO QHS as needed for sleep 12/28/2017 01/23/2018 Inactive Generic For:XANAX 1M G 10/11/2016 11:15:13 AM Medrol (Walter) 4 mg tablets in a dose pack RxNorm: 664424 Tablet(s) PO take as directed 12/01/2017 03/26/2018 Inactive Keflex 750 mg capsule RxNorm: 210418 1 Capsule(s) PO BID 12/01/2017 1 Inactive clindamycin HCl 300 mg capsule RxNorm: 261090 2 Capsule(s) PO TID 1 12/08/2017 Inactive Xanax 1 mg tablet RxNorm: 613252 1-2 Tablet(s) PO QHS as needed for sleep 11/28/2017 12/27/2017 Inactive Generic For:XANAX 1M G 10/11/2016 11:15:13 AM mupirocin 2 % topical ointment RxNorm: 030869 1 Application OTIC BI D 11/28/2017 08/09/2018 Inactive Xanax 1 mg tablet RxNorm: 081090 1-2 Tablet(s) PO QHS as needed for sleep 10/27/2017 11/25/2017 Inactive Generic For:XANAX 1M G 10/11/2016 11:15:13 AM Macrobid 100 mg capsule RxNorm: 878831 1 Capsule(s) PO BID 10/11/19 18 10/16/2017 Inactive Medrol (Walter) 4 mg tablets in a dose pack RxNorm: 128018 Tablet(s) PO take as directed 10/10/2017 11/16/2017 Inactive Xanax 1 mg tablet RxNorm: 542796 1-2 Tablet(s) PO QHS as needed for sleep 09/28/2017 10/26/2017 Inactive Generic For:XANAX 1M G 10/11/2016 11:15:13 AM Xanax 1 mg tablet RxNorm: 103523 1-2 Tablet(s) PO QHS as needed for sleep 08/30/2017 09/27/2017 Inactive Generic For:XANAX 1M G 10/11/2016 11:15:13 AM Xanax 1 mg tablet RxNorm: 441103 1-2 Tablet(s) PO QHS as needed for sleep 08/30/2017 08/29/2017 Inactive Generic For:XANAX 1M G 10/11/2016 11:15:13 AM Xanax 1 mg tablet RxNorm: 476658 1-2 Tablet(s) PO QHS as needed for sleep 08/01/2017 08/29/2017 Inactive Generic For:XANAX 1M G 10/11/2016 11:15:13 AM Xanax 1 mg tablet RxNorm: 323532 1-2 Tablet(s) PO QHS as needed for sleep 06/29/2017 2017 Inactive Generic For:XANAX 1M G 10/11/2016 11:15:13 AM Claritin-D 24 Hour 10 mg-240 mg tablet,extended release RxNo rm: 7538546 1 Tablet(s) PO QD 06/29/2017 2017 Inactive levothyroxine 88 mcg tablet RxNorm: 949818 1 Tablet(s) PO QD 201709/10/2017 Inactive Xanax 1 mg tablet RxNorm: 926232 1-2 Tablet(s) PO QHS as needed for sleep 05/26/2017 06/28/2017 Inactive Generic For:XANAX 1M G 10/11/2016 11:15:13 AM Claritin-D 24 Hour 10 mg-240 mg tablet,extended release RxNo rm: 5635646 1 Tablet(s) PO QD 05/26/2017 06/24/2017 Inactive bupropion HCl SR 100 mg tablet,12 hr sustained-release RxNor m: 257168 Tablet(s) Take 1 tablet by mouth two times daily 04/06/2017 12/31/2017 Inactive - Ref: [id number] Xanax 1 mg tablet RxNorm: 314670 1-2 Tablet(s) PO QHS as needed for sleep 03/24/2017 05/22/2017 Inactive Generic For:XANAX 1M G 10/11/2016 11:15:13 AM Medrol (Walter) 4 mg tablets in a dose pack RxNorm: 365650 Tablet(s) P O 02/16/2017 03/27/2017 Inactive Xanax 1 mg tablet RxNorm: 961399 Tablet(s) TAKE ONE T O TWO TABLETS BY MOUTH AT BEDTIME NEEDED 02/16/2017 03/17/2017 Inactive Generic For:XA NAX 1MG 10/11/2016 11:15:13 AM Claritin-D 24 Hour 10 mg-240 mg tablet,extended release RxNo rm: 0713639 1 Tablet(s) PO QD 02/16/2017 04/16/2017 Inactive cefdinir 300 mg capsule RxNorm: 524860 2 Capsule(s) PO QD 02/16/2017 02/25/2017 Inactive Celexa 40 mg tablet RxNorm: 609049 Tablet(s) Take 1 tablet by m outh daily 12/23/2016 09/18/2017 Inactive - Ref: [id number] Xanax 1 mg tablet RxNorm: 997508 Tablet(s) TAKE ONE T O TWO TABLETS BY MOUTH AT BEDTIME NEEDED 12/16/2016 01/14/2017 Inactive Generic For:XA NAX 1MG 10/11/2016 11:15:13 AM Xanax 1 mg tablet RxNorm: 435016 Tablet(s) TAKE ONE T O TWO TABLETS BY MOUTH AT BEDTIME NEEDED 11/18/2016 12/15/2016 Inactive Generic For:XA NAX 1MG 10/11/2016 11:15:13 AM Xanax 1 mg tablet RxNorm: 769730 TAKE ONE TO TWO TABL ETS BY MOUTH AT BEDTIME NEEDED 10/11/2016 11/17/2016 Inactive Generic For:XANA X 1MG 10/11/2016 11:15:13 AM Mobic 15 mg tablet RxNorm: 295015 1 Tablet(s) PO QD 09/06/20162016 Inactive Claritin-D 24 Hour 10 mg-240 mg tablet,extended release RxNo rm: 3490370 1 Tablet(s) PO QD 09/02/2016 11/30/2016 Inactive prednisone 20 mg tablet RxNorm: 403670 1 Tablet(s) PO T ID for 3 days then 1 po BID for 3 days then one daily for 3 days 08/16/2016 03/27/2017 Inactiv e cefdinir 300 mg capsule RxNorm: 801133 2 Capsule(s) PO QD 08/16/2016 09/05/2016 Inactive Xanax 1 mg tablet RxNorm: 854163 TAKE ONE TO TWO TABL ETS BY MOUTH AT BEDTIME NEEDED 08/05/2016 10/11/2016 Inactive Generic For:XANA X 1MG 08/05/2016 2:27:03 PM08/04/2016 4:15:22 PM Singulair 10 mg tablet RxNorm: 144840 1 Tablet(s) PO QHS 07/06/2016 0 09/03/2016 Inactive prednisone 20 mg tablet RxNorm: 928826 1 Tablet(s) PO T ID for 3 days then 1 po BID for 3 days then one daily for 3 days 06/15/2016 07/05/2016 Inactiv e Singulair 10 mg tablet RxNorm: 115926 1 Tablet(s) PO QHS 06/15/2016 0 07/05/2016 Inactive cefdinir 300 mg capsule RxNorm: 150301 2 Capsule(s) PO QD 06/15/2016 07/05/2016 Inactive Xanax 1 mg tablet RxNorm: 810405 1-2 Tablet(s) PO QHS 05/21/201610/2016 Inactive Claritin-D 24 Hour 10 mg-240 mg tablet,extended release RxNo rm: 4076871 1 Tablet(s) PO QD 04/09/2016 07/07/2016 Inactive Xanax 1 mg tablet RxNorm: 721638 1-2 Tablet(s) PO QHS 03/23/201604/29 Inactive levothyroxine 88 mcg tablet RxNorm: 054106 1 Tablet(s) PO QD 201606/13/2017 Inactive bupropion HCl SR 100 mg tablet,sustained-release RxNorm: 993 503 Take 1 tablet by mouth two times daily 03/15/2016 12/09/2016 Inactive - Ref: 20 8296302 Celexa 40 mg tablet RxNorm: 951086 Take 1 tablet by mouth daily 12/23/2016 Inactive - Ref: 763465630 Xanax 1 mg tablet RxNorm: 369000 1-2 Tablet(s) PO QHS 02/17/201603/01 Inactive levothyroxine 88 mcg tablet RxNorm: 322380 1 Tablet(s) PO QD 201502/22/2016 Inactive Xanax 1 mg tablet RxNorm: 294105 1-2 Tablet(s) PO QHS 11/25/201511/29 Inactive levothyroxine 88 mcg tablet RxNorm: 302927 1 Tablet(s) PO QD 201511/24/2015 Inactive temazepam 30 mg capsule RxNorm: 470472 1 Capsule(s) PO QHS 11/13/19 16 11/24/2015 Inactive Xanax 1 mg tablet RxNorm: 130687 1-2 Tablet(s) PO QHS 09/15/201510/29 Inactive Celexa 40 mg tablet RxNorm: 127293 1 Tablet(s) PO QD 1 Tablet(s ) PO QD 09/10/2015 09/16/2015 Inactive bupropion HCl SR 100 mg tablet,sustained-release RxNorm: 993 503 1 Tablet(s) PO BID 09/10/2015 09/23/2015 Inactive Xanax 1 mg tablet RxNorm: 826135 1-2 Tablet(s) PO QHS 09/10/201508/28 Inactive Xanax 1 mg tablet RxNorm: 444612 1-2 Tablet(s) PO QHS 08/11/201508/28 Inactive cyclobenzaprine 10 mg tablet RxNorm: 038088 1 Tablet(s) PO TID prn spasm 07/09/2015 11/23/2018 Inactive Celexa 40 mg tablet RxNorm: 784233 1 Tablet(s) PO QD 06/06/201508/03 Inactive Xanax 1 mg tablet RxNorm: 694568 1-2 Tablet(s) PO QHS 06/04/201505/2015 Inactive levothyroxine 88 mcg tablet RxNorm: 401545 1 Tablet(s) PO QD 201511/23/2015 Inactive Ceftin 500 mg tablet RxNorm: 123798 1 Tablet(s) PO BID 05/05/2015 Inactive Ceftin 500 mg tablet RxNorm: 063657 1 Tablet(s) PO BID 05/05/201507/2015 Inactive meloxicam 15 mg tablet RxNorm: 727554 1 Tablet(s) PO QD 04/16/2015 Inactive meloxicam 15 mg tablet RxNorm: 332051 1 Tablet(s) PO QD 04/16/2015 Inactive diclofenac sodium 75 mg tablet,delayed release RxNorm: 94674 6 1 Tablet(s) PO BID 04/04/2015 04/15/2015 Inactive diclofenac sodium 75 mg tablet,delayed release RxNorm: 32946 6 1 Tablet(s) PO BID 04/04/2015 04/03/2015 Inactive Tivorbex 40 mg capsule RxNorm: 4508310 1 Capsule(s) PO TID 03/24/19 16 04/02/2015 Inactive bupropion HCl SR 100 mg tablet,sustained-release RxNorm: 993 503 1 Tablet(s) PO BID 03/11/2015 09/06/2015 Inactive cyclobenzaprine 10 mg tablet RxNorm: 779053 1 Tablet(s) PO TID prn spasm 03/11/2015 07/08/2015 Inactive levothyroxine 88 mcg tablet RxNorm: 726715 1 Tablet(s) PO QD 201405/27/2015 Inactive Claritin-D 24 Hour 10 mg-240 mg tablet,extended release RxNo rm: 2049332 1 Tablet(s) PO QD 02/27/2015 05/27/2015 Inactive cefuroxime axetil 500 mg tablet RxNorm: 612062 1 Tablet(s) PO BID 1 03/12/2015 Inactive Celexa 40 mg tablet RxNorm: 341561 1 Tablet(s) PO QD 02/05/201504/05 Inactive levothyroxine 75 mcg tablet RxNorm: 601704 1 Tablet(s) PO QD 201402/26/2015 Inactive Celexa 40 mg tablet RxNorm: 511627 1 Tablet(s) PO QD 10/09/201402/04 Inactive Activella 1 mg-0.5 mg tablet RxNorm: 1848681 1 Tablet(s) PO QD 08/2802/26/2015 Inactive bupropion HCl SR 100 mg tablet,sustained-release RxNorm: 993 503 1 Tablet(s) PO BID 09/12/2014 03/10/2015 Inactive levothyroxine 75 mcg tablet RxNorm: 674598 1 Tablet(s) PO QD 201412/09/2014 Inactive levothyroxine 75 mcg tablet RxNorm: 542819 1 Tablet(s) PO QD 201409/11/2014 Inactive Celexa 40 mg tablet RxNorm: 431314 1 Tablet(s) PO QD 08/12/201410/08 Inactive Xanax 1 mg tablet RxNorm: 721374 1-2 Tablet(s) PO QHS 08/12/201409/28 Inactive Claritin-D 24 Hour 10 mg-240 mg tablet,extended release RxNo rm: 7976115 1 Tablet(s) PO QD 06/13/2014 09/10/2014 Inactive cyclobenzaprine 10 mg tablet RxNorm: 428524 1 Tablet(s) PO TID prn spasm 06/12/2014 02/26/2015 Inactive Xanax 1 mg tablet RxNorm: 426844 1-2 Tablet(s) PO QHS 05/09/201406/28 Inactive levothyroxine 75 mcg tablet RxNorm: 363194 1 Tablet(s) PO QD 201407/08/2014 Inactive cephalexin 500 mg capsule RxNorm: 147066 1 Capsule(s) PO QOD 201402/26/2015 Inactive simvastatin 10 mg tablet RxNorm: 745730 1 Tablet(s) PO QHS 04/10/19 15 06/12/2014 Inactive Xanax 1 mg tablet RxNorm: 648441 1-2 Tablet(s) PO QHS 04/10/201404/28 Inactive levothyroxine 75 mcg tablet RxNorm: 884619 1 Tablet(s) PO QD 201404/09/2014 Inactive levothyroxine 75 mcg capsule RxNorm: 384644 1 Capsule(s) PO QD 03/3104/10/2014 Inactive Activella 1 mg-0.5 mg tablet RxNorm: 5347931 1 Tablet(s) PO QD 03/0109/11/2014 Inactive bupropion HCl SR 100 mg tablet,sustained-release RxNorm: 993 503 1 Tablet(s) PO BID 03/04/2014 08/30/2014 Inactive Activella 1 mg-0.5 mg tablet RxNorm: 5444327 1 Tablet(s) PO QD 01/2803/18/2014 Inactive levothyroxine 75 mcg capsule RxNorm: 818621 1 Capsule(s) PO QD 12/2904/08/2014 Inactive simvastatin 10 mg tablet RxNorm: 900454 1 Tablet(s) PO QHS 01/10/20 14 04/08/2014 Inactive cyclobenzaprine 10 mg tablet RxNorm: 837357 1 Tablet(s) PO TID prn spasm 01/09/2014 04/08/2014 Inactive Cipro 500 mg tablet RxNorm: 046386 1 Tablet(s) PO BID 12/25/201304/2013 Inactive Cipro 500 mg tablet RxNorm: 831641 1 Tablet(s) PO BID 12/25/201311/29 Inactive bupropion HCl SR 100 mg tablet,sustained-release RxNorm: 993 503 1 Tablet(s) PO QAM 12/11/2013 03/03/2014 Inactive cephalexin 500 mg capsule RxNorm: 695409 1 Capsule(s) PO QOD 201304/09/2014 Inactive Xanax 1 mg tablet RxNorm: 473334 1-2 Tablet(s) PO QHS 10/15/201310/29 Inactive simvastatin 10 mg tablet RxNorm: 159770 1 Tablet(s) PO QHS 10/11/19 14 01/07/2014 Inactive Celexa 40 mg tablet RxNorm: 762622 Tablet(s) PO TAKE 1 TABLET BY MOUTH ONCE DAILY. 09/18/2013 09/17/2013 Inactive Xanax 1 mg tablet RxNorm: 719650 1-2 Tablet(s) PO QHS 08/13/201308/28 Inactive simvastatin 10 mg tablet RxNorm: 274672 1 Tablet(s) PO QHS 07/12/19 14 10/08/2013 Inactive bupropion HCl SR 100 mg tablet,sustained-release RxNorm: 993 503 1 Tablet(s) PO QAM 05/22/2013 11/17/2013 Inactive Pamelor 10 mg capsule RxNorm: 169419 1 Capsule(s) PO QHS for PLATA /sleep 05/22/2013 06/04/2013 Inactive Xanax 1 mg tablet RxNorm: 279915 1-2 Tablet(s) PO QHS 05/15/201305/29 Inactive Pamelor 10 mg capsule RxNorm: 776398 1 Capsule(s) PO QHS for PLATA /sleep 05/15/2013 05/21/2013 Inactive Xanax 1 mg tablet RxNorm: 218054 1 Tablet(s) PO QHS 04/27/20132013 Inactive Zovirax 800 mg tablet RxNorm: 093778 1 Tablet(s) PO TID 04/05/2013 Inactive Xanax 1 mg tablet RxNorm: 247552 1 Tablet(s) PO QHS 04/03/2013 No Sto p Date Active bupropion HCl SR 100 mg tablet,sustained-release RxNorm: 993 503 1 Tablet(s) PO QAM 03/26/2013 05/21/2013 Inactive bupropion HCl SR 100 mg tablet,sustained-release RxNorm: 993 503 1 Tablet(s) PO QAM 03/06/2013 03/25/2013 Inactive Pamelor 10 mg capsule RxNorm: 423957 1 Capsule(s) PO QHS for PLATA /sleep 02/14/2013 05/14/2013 Inactive levothyroxine 75 mcg capsule RxNorm: 973964 1 Capsule(s) PO QD 12/2901/08/2014 Inactive simvastatin 10 mg tablet RxNorm: 214023 1 Tablet(s) PO QHS TAKE 1 TABLET BY MOUTH ONCE DAILY AT BEDTIME. 01/15/2013 07/10/2013 Inactive cyclobenzaprine 10 mg tablet RxNorm: 050638 1 Tablet(s) PO TID prn spasm 12/25/2012 06/22/2013 Inactive Pamelor 10 mg capsule RxNorm: 964384 1 Capsule(s) PO QHS for PLATA /sleep 11/29/2012 02/14/2013 Inactive Celexa 40 mg tablet RxNorm: 365864 Tablet(s) PO TAKE 1 TABLET BY MOUTH ONCE DAILY. 10/11/2012 09/17/2013 Inactive simvastatin 10 mg tablet RxNorm: 162266 Tablet(s) PO TA KE 1 TABLET BY MOUTH ONCE DAILY AT BEDTIME. 10/11/2012 01/14/2013 Inactive simvastatin 10 mg tablet RxNorm: 747823 1 Tablet(s) PO QD 07/11/2012 10/08/2012 Inactive simvastatin 10 mg tablet RxNorm: 341491 1 Tablet(s) PO QD 04/14/2012 07/11/2012 Inactive simvastatin 10 mg tablet RxNorm: 286436 1 Tablet(s) PO QD 04/14/2012 04/13/2012 Inactive Celexa 40 mg tablet RxNorm: 992893 1 Tablet(s) PO QD 03/15/201209/10 Inactive cyclobenzaprine 10 mg tablet RxNorm: 101044 1 Tablet(s) PO TID prn spasm 02/02/2012 02/01/2012 Inactive cyclobenzaprine 10 mg tablet RxNorm: 959052 1 Tablet(s) PO TID prn spasm 02/02/2012 07/30/2012 Inactive Diflucan 100 mg Tab RxNorm: 499496 1 Tablet(s) PO QD 08/17/201108/22 Inactive Cipro 250 mg Tab RxNorm: 775840 1 Tablet(s) PO QD 08/17/2011 10/15/19 12 Inactive Levaquin 500 mg Tab RxNorm: 712807 1 Tablet(s) PO QD 08/17/201108/22 Inactive Pyridium 200 mg Tab RxNorm: 5003970 1 Tablet(s) PO TID 10/14/2010 Inactive may turn urine orange-red color. Cipro 500 mg Tab RxNorm: 697506 1 Tablet(s) PO BID 10/14/2010 011 Inactive levothyroxine 75 mcg capsule RxNorm: 590133 1 Capsule(s) PO QD 12/3001/14/2011 Inactive loratadine 10 mg tablet RxNorm: 802855 1 Tablet(s) PO QHS No Start Da te Active Vitamin D3 5,000 unit tablet RxNorm: 324857 1 Tablet(s) PO QD No Star t Date Active Nasacort 55 mcg nasal spray aerosol RxNorm: 1581586 2 Sp ray NASAL each nostril QHS No Start Date Active cyclobenzaprine 10 mg tablet RxNorm: 423706 1 Tablet(s) PO TID as needed No Start Date 11/22/2018 Inactive Vitamin D2 1,000 unit capsule RxNorm: 770905 3 Capsule(s) PO QD No Start Date 11/16/2017 Inactive diclofenac sodium 75 mg tablet,delayed release RxNorm: 18717 6 1 Tablet(s) PO BID No Start Date 03/16/2016 Inactive cephalexin 500 mg capsule RxNorm: 628928 1 Capsule(s) PO QOD No Sta rt Date 12/04/2013 Inactive cyclobenzaprine 10 mg tablet RxNorm: 409649 1 Tablet(s) PO QHS No S tart Date 02/01/2012 Inactive hydrocodone 5 mg-acetaminophen 500 mg tablet RxNorm: 905493 1 -2 Tablet(s) PO Q6H as needed No Start Date 08/09/2018 Inactive etodolac 400 mg tablet RxNorm: 930126 1 Tablet(s) PO TID No Start D ate 09/17/2018 Inactive Xanax 1 mg tablet RxNorm: 583517 1 Tablet(s) PO QHS No Start Date 04/2013 Inactive Vitamin D3 1,000 unit capsule RxNorm: 413314 1 Capsule(s) PO QD No Start Date 06/12/2014 Inactive estradiol 2 mg tablet RxNorm: 290173 1/2 Tablet(s) PO QD No Start D ate 03/05/2013 Inactive Celexa 40 mg tablet RxNorm: 000306 1 Tablet(s) PO QD No Start Date Inactive Activella 1 mg-0.5 mg tablet RxNorm: 9719944 1 Tablet(s) PO QD No S tart Date 07/10/2012 Inactive medroxyprogesterone 5 mg tablet RxNorm: 1269608 1/2 Tablet(s) PO QD No Start Date 03/05/2013 Inactive levothyroxine 88 mcg tablet RxNorm: 631986 1 Tablet(s) PO QD No Sta rt Date 02/26/2015 Inactive Keflex 500 mg capsule RxNorm: 865153 1 Capsule(s) PO PRN No Start D ate 08/16/2011 Inactive Activella 1 mg-0.5 mg tablet RxNorm: 3704599 1 Tablet(s) PO QHS No Start Date 03/27/2017 Inactive Activella 1 mg-0.5 mg tablet RxNorm: 8555991 1 Tablet(s) PO QD No S tart Date 02/06/2014 Inactive Flexeril 10 mg Tab RxNorm: 838404 1 Tablet(s) PO TID No Start Date Inactive prn spasm simvastatin 10 mg tablet RxNorm: 327053 1 Tablet(s) PO QD No Start Date 04/13/2012 Inactive Medication Administered No Medication Administered data Immunizations Vaccine Codes Date Status Influenza CVX: 135 01/16/2019 Complete Pneumococcal CVX: 133 01/16/2019 Complete Results No Results data Procedures Procedure Codes Date FLU VACC PRSV FREE INC ANTIG 65 AND OLDER CPT-4: 50988 01/16/2019 FLU VACC PRSV FREE INC ANTIG 65 AND OLDER CPT-4: 79512 01/16/2019 PNEUMOCOCCAL VACC 13 NARESH IM CPT-4: 59489 01/16/2019 SKIN FUNGI CULTURE CPT-4: 37601 01/16/2019 IMMUNIZATION ADMIN CPT-4: 63264 01/16/2019 IMMUNIZATION ADMIN EACH ADD CPT-4: 69083 01/16/2019 THER/PROPH/DIAG INJ SC/IM CPT-4: 28772 01/17/2018 KETOROLAC TROMETHAMINE INJ CPT-4: J1885 01/17/2018 THER/PROPH/DIAG INJ SC/IM CPT-4: 06599 01/17/2018 PROMETHAZINE HCL INJECTION CPT-4: J2550 01/17/2018 URINALYSIS NONAUTO W/O SCOPE CPT-4: 79537 12/29/2017 URINE CULTURE/ COLONY COUNT CPT-4: 08365 12/29/2017 THER/PROPH/DIAG INJ SC/IM CPT-4: 37760 11/30/2017 TRIAMCINOLONE ACET INJ NOS CPT-4: J3301 11/30/2017 DEXAMETHASONE SODIUM PHOS CPT-4: J1100 11/30/2017 CEFTRIAXONE SODIUM INJECTION CPT-4: J0696 11/29/2017 THER/PROPH/DIAG INJ SC/IM CPT-4: 81769 11/29/2017 CEFTRIAXONE SODIUM INJECTION CPT-4: J0696 11/28/2017 THER/PROPH/DIAG INJ SC/IM CPT-4: 22781 11/28/2017 URINALYSIS NONAUTO W/O SCOPE CPT-4: 35858 10/10/2017 THER/PROPH/DIAG INJ SC/IM CPT-4: 11430 10/10/2017 TRIAMCINOLONE ACET INJ NOS CPT-4: J3301 10/10/2017 DEXAMETHASONE SODIUM PHOS CPT-4: J1100 10/10/2017 CEFTRIAXONE SODIUM INJECTION CPT-4: J0696 10/10/2017 THER/PROPH/DIAG INJ SC/IM CPT-4: 08806 10/10/2017 URINE CULTURE/ COLONY COUNT CPT-4: 93918 10/10/2017 THER/PROPH/DIAG INJ SC/IM CPT-4: 60945 11/02/2016 KETOROLAC TROMETHAMINE INJ CPT-4: J1885 11/02/2016 THER/PROPH/DIAG INJ SC/IM CPT-4: 84908 06/15/2016 TRIAMCINOLONE ACET INJ NOS CPT-4: J3301 06/15/2016 DEXAMETHASONE SODIUM PHOS CPT-4: J1100 06/15/2016 THER/PROPH/DIAG INJ SC/IM CPT-4: 26282 04/09/2016 KETOROLAC TROMETHAMINE INJ CPT-4: J1885 04/09/2016 PROMETHAZINE HCL INJECTION CPT-4: J2550 04/09/2016 EXC TR-EXT B9+ERASMO 0.5 CM< CPT-4: 03664 06/12/2015 URINALYSIS NONAUTO W/O SCOPE CPT-4: 25781 05/05/2015 URINE CULTURE/ COLONY COUNT CPT-4: 67439 05/05/2015 URINALYSIS NONAUTO W/O SCOPE CPT-4: 97881 03/24/2015 URINALYSIS NONAUTO W/O SCOPE CPT-4: 33922 02/27/2015 URINE CULTURE/ COLONY COUNT CPT-4: 14008 02/27/2015 THER/PROPH/DIAG INJ SC/IM CPT-4: 74443 04/18/2014 KETOROLAC TROMETHAMINE INJ CPT-4: J1885 04/18/2014 THER/PROPH/DIAG INJ SC/IM CPT-4: 23242 06/05/2013 TRIAMCINOLONE ACET INJ NOS CPT-4: J3301 06/05/2013 THER/PROPH/DIAG INJ SC/IM CPT-4: 29289 11/29/2012 KETOROLAC TROMETHAMINE INJ CPT-4: J1885 11/29/2012 URINALYSIS NONAUTO W/O SCOPE CPT-4: 67931 07/11/2012 URINE CULTURE/ COLONY COUNT CPT-4: 50875 07/11/2012 OCCULT BLOOD FECES CPT-4: 82070 02/17/2012 URINALYSIS NONAUTO W/O SCOPE CPT-4: 02519 08/27/2011 URINE CULTURE/ COLONY COUNT CPT-4: 67650 08/27/2011 URINALYSIS NONAUTO W/O SCOPE CPT-4: 09452 08/17/2011 URINE CULTURE/ COLONY COUNT CPT-4: 11331 08/17/2011 URINALYSIS NONAUTO W/O SCOPE CPT-4: 95532 12/28/2010 URINE CULTURE/ COLONY COUNT CPT-4: 78072 12/28/2010 URINALYSIS NONAUTO W/O SCOPE CPT-4: 61400 11/09/2010 URINE CULTURE/ COLONY COUNT CPT-4: 57554 11/09/2010 URINALYSIS NONAUTO W/O SCOPE CPT-4: 52559 10/29/2010 URINE CULTURE/ COLONY COUNT CPT-4: 61377 10/29/2010 URINE CULTURE/ COLONY COUNT CPT-4: 30149 10/14/2010 URINALYSIS NONAUTO W/O SCOPE CPT-4: 04057 10/14/2010 Vital Signs Date Vital 02/14/2019 Blood Pressure 1: 112/74 Code: 8480-6 Heart Rate 1: 80 bpm Respiratory Rate: 18 bpm Temperature: 36.6 (C) / 97.9 (F) Weight: 124 lbs 01/16/2019 Blood Pressure 1: 122/74 Code: 8480-6 BMI: 22.0 Code: 15883-6 Heart Rate 1: 72 bpm Height: 5'3" [...] 1: 112/70 Code: 8480-6 BMI: 22.0 Code: 01540-0 Heart Rate 1: 80 bpm Height: 5'3" [...] 1: 122/64 Code: 8480-6 BMI: 21.4 Code: 56662-7 Heart Rate 1: 88 bpm Height: 5'3" Respiratory Rate: 22 bpm SpO2: 96% Tempera ture: 36.8 (C) / 98.2 (F) Weight: 121 lbs 06/22/2017 Blood Pressure 1: 124/78 Code: 8480-6 BMI: 21.6 Code: 43434-7 Heart Rate 1: 76 bpm Height: 5'3" Respiratory Rate: 20 bpm Temperature: 36 .8 (C) / 98.3 (F) Weight: 122 lbs 03/28/2017 Blood Pressure 1: 92/60 Code: 8480-6 BMI: 20.4 C ode: 50654-2 Heart Rate 1: 72 bpm Height: 5'3" Respiratory Rate: 20 bpm Temperature: 36 .9 (C) / 98.4 (F) Weight: 115 lbs 02/16/2017 Blood Pressure 1: 106/70 Code: 8480-6 BMI: 21.3 Code: 11555-2 Heart Rate 1: 82 bpm Height: 5'3" Respiratory Rate: 22 bpm SpO2: 97% Tempera ture: 36.1 (C) / 97.0 (F) Weight: 120 lbs 09/06/2016 Blood Pressure 1: 118/64 Code: 8480-6 BMI: 22.7 Code: 32058-7 Heart Rate 1: 78 bpm Height: 5'3" Respiratory Rate: 20 bpm SpO2: 98% Tempera ture: 36.2 (C) / 97.2 (F) Weight: 128 lbs 08/16/2016 Blood Pressure 1: 118/78 Code: 8480-6 BMI: 22.1 Code: 19937-1 Heart Rate 1: 78 bpm Height: 5'3" Respiratory Rate: 20 bpm SpO2: 97% Tempera ture: 36.2 (C) / 97.1 (F) Weight: 125 lbs 07/19/2016 Blood Pressure 1: 116/68 Code: 8480-6 BMI: 22.5 Code: 88369-2 Heart Rate 1: 76 bpm Height: 5'3" Respiratory Rate: 20 bpm Temperature: 36 .8 (C) / 98.2 (F) Weight: 127 lbs 07/06/2016 Blood Pressure 1: 106/70 Code: 8480-6 BMI: 22.5 Code: 70152-0 Heart Rate 1: 72 bpm Height: 5'3" Respiratory Rate: 20 bpm SpO2: 97% Tempera ture: 36.8 (C) / 98.2 (F) Weight: 127 lbs 06/15/2016 Blood Pressure 1: 136/76 Code: 8480-6 BMI: 22.9 Code: 64759-7 Heart Rate 1: 74 bpm Height: 5'3" Respiratory Rate: 18 bpm SpO2: 98% Tempera ture: 36.4 (C) / 97.6 (F) Weight: 129 lbs 04/09/2016 Blood Pressure 1: 124/78 Code: 8480-6 BMI: 23.0 Code: 81774-6 Heart Rate 1: 86 bpm Height: 5'3" Respiratory Rate: 20 bpm SpO2: 96% Tempera ture: 36.5 (C) / 97.7 (F) Weight: 130 lbs 03/17/2016 Blood Pressure 1: 116/74 Code: 8480-6 BMI: 23.4 Code: 01324-5 Heart Rate 1: 84 bpm Height: 5'3" Respiratory Rate: 20 bpm SpO2: 97% Tempera ture: 36.8 (C) / 98.3 (F) Weight: 132 lbs 11/13/2015 Blood Pressure 1: 124/78 Code: 8480-6 BMI: 23.4 Code: 06589-5 Heart Rate 1: 88 bpm Height: 5'3" Respiratory Rate: 24 bpm SpO2: 98% Tempera ture: 36.8 (C) / 98.2 (F) Weight: 132 lbs 06/12/2015 Blood Pressure 1: 126/78 Code: 8480-6 BMI: 23.6 Code: 11100-6 Heart Rate 1: 80 bpm Height: 5'3" Respiratory Rate: 20 bpm Temperature: 36 .9 (C) / 98.4 (F) Weight: 133 lbs 04/22/2015 Blood Pressure 1: 126/68 Code: 8480-6 BMI: 23.6 Code: 42421-0 Heart Rate 1: 80 bpm Height: 5'3" Respiratory Rate: 20 bpm Temperature: 36 .6 (C) / 97.9 (F) Weight: 133 lbs 03/24/2015 Blood Pressure 1: 116/66 Code: 8480-6 BMI: 22.9 Code: 63595-7 Heart Rate 1: 74 bpm Height: 5'3" Respiratory Rate: 20 bpm Temperature: 36 .4 (C) / 97.6 (F) Weight: 129 lbs 02/27/2015 Blood Pressure 1: 106/64 Code: 8480-6 BMI: 22.7 Code: 90537-2 Heart Rate 1: 74 bpm Height: 5'3" Respiratory Rate: 20 bpm Temperature: 36 .8 (C) / 98.2 (F) Weight: 128 lbs 06/13/2014 Blood Pressure 1: 104/66 Code: 8480-6 BMI: 22.7 Code: 08354-4 Heart Rate 1: 84 bpm Height: 5'3" Respiratory Rate: 20 bpm Temperature: 37 .0 (C) / 98.6 (F) Weight: 128 lbs 04/18/2014 Blood Pressure 1: 112/62 Code: 8480-6 BMI: 22.0 Code: 75747-0 Heart Rate 1: 82 bpm Height: 5'3" Respiratory Rate: 18 bpm Temperature: 36 .4 (C) / 97.6 (F) Weight: 124 lbs 12/05/2013 Blood Pressure 1: 106/70 Code: 8480-6 BMI: 23.7 Code: 18603-8 Heart Rate 1: 84 bpm Height: 5'3" [...] 1: 126/88 Code: 8480-6 BMI: 22.3 Code: 13772-8 Heart Rate 1: 96 bpm Height: 5'4" Respiratory Rate: 20 bpm Temperature: 37 .7 (C) / 99.9 (F) Weight: 130 lbs 11/29/2012 Blood Pressure 1: 122/76 Code: 8480-6 BMI: 23.0 Code: 93636-8 Heart Rate 1: 84 bpm Height: 5'4" Respiratory Rate: 20 bpm Temperature: 36 .9 (C) / 98.4 (F) Weight: 134 lbs 09/26/2012 Blood Pressure 1: 114/76 Code: 8480-6 BMI: 23.0 Code: 39798-3 Heart Rate 1: 84 bpm Height: 5'4" Respiratory Rate: 20 bpm Temperature: 37 .3 (C) / 99.1 (F) Weight: 134 lbs 07/11/2012 Blood Pressure 1: 126/78 Code: 8480-6 BMI: 23.7 Code: 62328-6 Heart Rate 1: 76 bpm Height: 5'4" Respiratory Rate: 20 bpm Temperature: 37 .1 (C) / 98.7 (F) Weight: 138 lbs 02/02/2012 Blood Pressure 1: 108/70 Code: 8480-6 BMI: 23.2 Code: 63243-9 Heart Rate 1: 88 bpm Height: 5'4" Respiratory Rate: 20 bpm Temperature: 36 .4 (C) / 97.6 (F) Weight: 135 lbs 08/17/2011 Blood Pressure 1: 108/70 Code: 8480-6 BMI: 23.2 Code: 65614-4 Heart Rate 1: 72 bpm Height: 5'4" Respiratory Rate: 20 bpm Temperature: 36 .8 (C) / 98.2 (F) Weight: 135 lbs 10/14/2010 Blood Pressure 1: 120/72 Code: 8480-6 BMI: 23.4 Code: 91173-9 Heart Rate 1: 78 bpm Height: 5'3" [...] Insomnia[ICD10: G47.00] Diagnosis: Thrombocytosis[ICD10: D47.3] Alexandra CARROLL [place] CPT-4: 68202 02/14/2019 ([id number]) OFFICE/OUTPATIENT VISIT EST Diagnosis: Small bowel obstruction[ICD10: K56.609] Diagnosis: FLU VACCINE[ICD10: Z23] Diagnosis: PNEUMOCOCCAL VACCINE[ICD10: Z23] Diagnosis: Onychomycosis[ICD10: B35.1] Alexandra FORDE S. Billie KUNZ [place] CPT-4: 17824 01/16/2019 ([id number]) OFFICE/OUTPATIENT VISIT EST Diagnosis: Diarrhea, unspecified[ICD10: R19.7] Diagnosis: Radiculopathy, lumbosacral region[ICD10: M54.17] Alexandra CARROLL [place] CPT-4: 73281 09/18/2018 OFFICE/OUTPATIENT VISIT EST Diagnosis: Other intervertebral disc degeneration, lumbar region[ICD10: M51.36] Diagnosis: Sacroiliitis, not elsewhere classified[ICD10: M46.1] Diagnosis: Obstructive sleep apnea (adult) (pediatric)[ICD10: G47.33] Alexandra CARROLL [employer] [facility] CPT-4: 22818 08/10/2018 ([id number]) OFFICE/OUTPATIENT VISIT EST Diagnosis: Fracture of unspecified part of left clavicle, subsequent encounter for fracture with routine healing[ICD10: S42.002D] Diagnosis: Cervicalgia[ICD10: M54.2] Diagnosis: Radiculopathy, lumbosacral region[ICD10: M54.17] Alexandra CARROLL [employer] [facility] CPT-4: 20633 03/27/2018 ([id number]) OFFICE/OUTPATIENT VISIT EST Diagnosis: Fracture of unspecified part of left clavicle, subsequent encounter for fracture with routine healing[ICD10: S42.002D] Diagnosis: Other intervertebral disc degeneration, lumbar region[ICD10: M51.36] Diagnosis: Unspecified fracture of first thoracic vertebra, subsequent encounter for fracture with routine healing[ICD10: S22.019D] Diagnosis: Unspecified fracture of second thoracic vertebra, subsequent encounter for fracture with routine healing[ICD10: S22.029D] Alexandra CARROLL [employer] [facility] CPT-4: 72342 02/23/2018 ([id number]) OFFICE/OUTPATIENT VISIT EST Diagnosis: Fracture of unspecified part of left clavicle, subsequent encounter for fracture with routine healing[ICD10: S42.002D] Diagnosis: Unspecified fracture of first thoracic vertebra, subsequent encounter for fracture with routine healing[ICD10: S22.019D] Diagnosis: Unspecified fracture of second thoracic vertebra, subsequent encounter for fracture with routine healing[ICD10: S22.029D] Alexandrateja CARROLL [employer] [facility] CPT-4: 72359 01/24/2018 ([id number]) OFFICE/OUTPATIENT VISIT EST Diagnosis: Migraine, unspecified, not intractable, without status migrainosus[ICD10: G43.909] Alexandra CARROLL [facility] CPT - 4: 83132 01/17/2018 ([id number]) OFFICE/OUTPATIENT VISIT EST Diagnosis: Hematuria, unspecified[ICD10: R31.9] Diagnosis: Other intervertebral disc degeneration, lumbar region[ICD10: M51.36] Diagnosis: Retention of urine, unspecified[ICD10: R33.9] Alexandra CARROLL [facility] CPT-4: 06957 12/29/2017 OFFICE/OUTPATIENT VISIT EST Diagnosis: Fracture of [...] Diagnosis: Low back pain[ICD10: M54.5] Alexandra KUNZ [facility] CPT-4: 64796 12/06/2017 ([id number]) OFFICE/OUTPATIENT VISIT EST Diagnosis: Cellulitis of right upper limb[ICD10: L03.113] Diagnosis: Allergy status to other antibiotic agents status[ICD10: Z88.1] Vandana CARROLL [facility] CPT-4: 74388 12/01/2017 ([id number]) OFFICE/OUTPATIENT VISIT EST Diagnosis: Cellulitis of right upper limb[ICD10: L03.113] Diagnosis: Allergy status to other antibiotic agents status[ICD10: Z88.1] Vandana Cavazos. DEANNE [facility] CPT-4: 85202 11/30/2017 ([id number]) OFFICE/OUTPATIENT VISIT EST Diagnosis: Cellulitis of right upper limb[ICD10: L03.113] Vandana Cavazos. DEANNE [facility]ERO [facility] CPT-4: 82310 11/29/2017 ([id number]) OFFICE/OUTPATIENT VISIT EST Diagnosis: Cellulitis of right upper limb[ICD10: L03.113] Vandana CARROLL DO [facility] CPT-4: 93791 11/28/2017 ([id number]) OFFICE/OUTPATIENT VISIT EST Diagnosis: Other intervertebral disc degeneration, lumbar region[ICD10: M51.36] Diagnosis: Other retention of urine[ICD10: R33.8] Diagnosis: Primary insomnia[ICD10: F51.01] Diagnosis: Other spondylosis, site unspecified[ICD10: M47.899] Alexandra CARROLL DO [facility] CPT-4: 03719 11/17/2017 ([id number]) OFFICE/OUTPATIENT VISIT EST Diagnosis: Radiculopathy, lumbosacral region[ICD10: M54.17] Diagnosis: Other retention of urine[ICD10: R33.8] Diagnosis: Urinary tract infection, site not specified[ICD10: N39.0] Vandana CARROLL DO [facility] CPT-4: 80727 10/10/2017 ([id number]) PREV VISIT EST AGE 40-64 Diagnosis: Encounter for general adult medical examination without abnormal findings[ICD10: Z00.00] Diagnosis: Other intervertebral disc degeneration, lumbar region[ICD10: M51.36] Diagnosis: Hypothyroidism, unspecified[ICD10: E03.9] Diagnosis: Mixed hyperlipidemia[ICD10: E78.2] Alexandra CARROLL DO [facility] CPT-4: 59321 06/22/2017 ([id number]) OFFICE/OUTPATIENT VISIT EST Diagnosis: URI, ACUTE[ICD10: J06.9] Alexandra Danelawandavioletta SHAFFERALEXANDRA Ty ROMAN [facility] CPT-4: 37768 03/28/2017 OFFICE/OUTPATIENT VISIT EST Diagnosis: Acute sinusitis, unspecified[ICD10: J01.90] Vandana CARROLL DO [facility] CPT-4: 64749 02/16/2017 ([id number]) OFFICE/OUTPATIENT VISIT EST Diagnosis: Migraine, unspecified, not intractable, without status migrainosus[ICD10: G43.909] Alexandra Danejames ALEXANDRA Ty CARROLL DO [facility] CPT - 4: 38267 11/02/2016 ([id number]) OFFICE/OUTPATIENT VISIT EST Diagnosis: Pain in thoracic spine[ICD10: M54.6] Diagnosis: Chondrocostal junction syndrome [Tietze][ICD10: M94.0] Alexandra CARROLL [facility] CPT-4: 96764 09/06/2016 OFFICE/OUTPATIENT VISIT EST Diagnosis: Acute sinusitis, unspecified[ICD10: J01.90] [facility] 67932 08/16/2016 ([id number]) OFFICE/OUTPATIENT VISIT EST Diagnosis: Primary insomnia[ICD10: F51.01] Diagnosis: Cramp and spasm[ICD10: R25.2] Diagnosis: Major depressive disorder, single episode, mild[ICD10: F32.0] Alexandra CARROLL [facility] CPT-4: 42505 07/19/2016 ([id number]) OFFICE/OUTPATIENT VISIT EST Diagnosis: Obstructive sleep apnea (adult) (pediatric)[ICD10: G47.33] Diagnosis: Other fatigue[ICD10: R53.83] Diagnosis: Allergic rhinitis due to pollen[ICD10: J30.1] Diagnosis: Headache[ICD10: R51] Alexandra BURLESON [employer] [facility] CPT-4: 07282 07/06/2016 ([id number]) OFFICE/OUTPATIENT VISIT EST Diagnosis: Acute recurrent sinusitis, unspecified[ICD10: J01.91] Diagnosis: Allergic rhinitis due to pollen[ICD10: J30.1] [facility]: 65997 06/15/2016 ([id number]) OFFICE/OUTPATIENT VISIT EST Diagnosis: Migraine, unspecified, not intractable, without status migrainosus[ICD10: G43.909] Diagnosis: Allergic rhinitis, unspecified[ICD10: J30.9] Nae Mckay ALEXANDRA CARROLL [facility] CPT-4: 49420 04/09/2016 ([id number]) OFFICE/OUTPATIENT VISIT EST Diagnosis: Hypothyroidism, unspecified[ICD10: E03.9] Diagnosis: Other fatigue[ICD10: R53.83] Diagnosis: Mixed hyperlipidemia[ICD10: E78.2] Diagnosis: Major depressive disorder, single episode, mild[ICD10: F32.0] Alexandra CARROLL DO [facility] CPT-4: 40477 03/17/2016 ([id number]) OFFICE/OUTPATIENT VISIT EST Diagnosis: Insomnia, unspecified[ICD10: G47.00] Diagnosis: Encounter for therapeutic drug level monitoring[ICD10: Z51.81] Nae CARROLL DO [facility] CPT-4: 61444 11/13/2015 ([id number]) OFFICE/OUTPATIENT VISIT EST Diagnosis: Hematuria, unspecified[ICD10: R31.9] Alexandra CARROLL DO [facility] CPT-4: 53336 05/05/2015 ([id number]) OFFICE/OUTPATIENT VISIT EST Diagnosis: Other intervertebral disc degeneration, lumbar region[ICD10: M51.36] Diagnosis: Radiculopathy, lumbosacral region[ICD10: M54.17] Alexandra CARROLL DO [facility] CPT-4: 01287 04/22/2015 ([id number]) OFFICE/OUTPATIENT VISIT EST Diagnosis: Low back pain[ICD10: M54.5] Diagnosis: Recurrent and persistent hematuria with unspecified morphologic changes[ICD10: N02.9] Alexandra CARROLL DO [facility] CPT-4: 73965 03/24/2015 ([id number]) OFFICE/OUTPATIENT VISIT EST Diagnosis: Acute sinusitis, unspecified[ICD10: J01.90] Diagnosis: Headache[ICD10: R51] Diagnosis: Retention of urine, unspecified[ICD10: R33.9] Diagnosis: Hypothyroidism, unspecified[ICD10: E03.9] Alexandra CARROLL DO [facility] CPT-4: 40325 02/27/2015 ([id number]) PREV VISIT EST AGE 40-64 Diagnosis: ROUTINE MEDICAL EXAM[ICD9: V70.0] Diagnosis: HYPOTHYROIDISM[ICD9: 244.9] Diagnosis: HYPERLIPIDEMIA NEC/NOS[ICD9: 272.4] Alexandra CARROLL DO [facility] CPT-4: 23045 06/13/2014 ([id number]) OFFICE/OUTPATIENT VISIT EST Diagnosis: CEPHALGIA[ICD9: 784.0] Diagnosis: Nausea[ICD9: 787.02] Shalini CavazosAri [facility] CPT-4: 88046 04/18/2014 ([id number]) OFFICE/OUTPATIENT VISIT EST Diagnosis: INSOMNIA NOS[ICD9: 780.52] Diagnosis: Complicated grieving[ICD9: 309.0] Alexandra Velalawandavioletta SHAFFERLIN Dani CavazosAri DANENDVIOLETTA [facility] CPT-4: 96250 12/05/2013 ([id number]) OFFICE/OUTPATIENT VISIT EST Diagnosis: Muscle twitch[ICD9: 781.0] Diagnosis: ALLERGIC RHINITIS[ICD9: 477.9] Alexandra Velalawandavioletta SHAFFERALEXANDRA Macy Ari [facility] CPT-4: 87943 06/05/2013 ([id number]) OFFICE/OUTPATIENT VISIT EST Diagnosis: DEPRESSIVE DISORDER NEC[ICD9: 311] Alexandra Danelawandavioletta MARK INGRID S. DANENDVIOLETTA [facility] CPT-4: 45333 05/22/2013 OFFICE/OUTPATIENT VISIT EST Diagnosis: Shingles[ICD9: 053.9] Alexandra SHAFFERLINE MacyAri [facility] CPT-4: 48741 04/05/2013 ([id number]) OFFICE/OUTPATIENT VISIT EST Diagnosis: DEPRESSIVE DISORDER NEC[ICD9: 311] Alexandra Danelawandavioletta MARK QUINTERO S. DANENDER [employer] CPT-4: 80781 03/26/2013 ([id number]) OFFICE/OUTPATIENT VISIT EST Diagnosis: Complicated grieving[ICD9: 309.0] Alexandra Danejames Louise MacyAri [facility] CPT-4: 52776 03/06/2013 ([id number]) OFFICE/OUTPATIENT VISIT EST Diagnosis: CEPHALGIA, TENSION[ICD9: 307.81] Diagnosis: MIGRAINE NOS/NOT INTRCBL[ICD9: 346.90] Diagnosis: Cervicalgia[ICD9: 723.1] Alexandra FORDE MacyAri GIULIA ROMNA [employer] CPT-4: 37803 11/29/2012 ([id number]) OFFICE/OUTPATIENT VISIT EST Diagnosis: Jaw pain[ICD9: 784.92] Diagnosis: Shoulder pain[ICD9: 719.41] Diagnosis: Family history of premature coronary artery disease[ICD9: V17.3] Alexandra CARROLL [facility] CPT-4: 33762 09/26/2012 ([id number]) OFFICE/OUTPATIENT VISIT EST Diagnosis: ABDOMINAL PAIN[ICD9: 789.00] Diagnosis: Constipation[ICD9: 564.00] Diagnosis: Hematuria[ICD9: 599.70] Alexandra BURLESON [facility] CPT-4: 62203 07/11/2012 ([id number]) OFFICE/OUTPATIENT VISIT EST Diagnosis: ANEMIA NOS[ICD9: 285.9] Alexandra BURLESON [facility] CPT-4: 18968 02/17/2012 ([id number]) PREV VISIT EST AGE 40-64 Diagnosis: ROUTINE MEDICAL EXAM[ICD9: V70.0] Diagnosis: HYPOTHYROIDISM[ICD9: 244.9] Diagnosis: HYPERLIPIDEMIA NEC/NOS[ICD9: 272.4] Diagnosis: Obstructive sleep apnea[ICD9: 327.23] Alexandra CARROLL [facility] CPT-4: 66164 02/02/2012 ([id number]) OFFICE/OUTPATIENT VISIT EST Diagnosis: URINARY TRACT INFECTION[ICD9: 599.0] [facility]: 63869 08/27/2011 ([id number]) OFFICE/OUTPATIENT VISIT EST Diagnosis: URINARY TRACT INFECTION[ICD9: 599.0] Diagnosis: ACUTE CYSTITIS[ICD9: 595.0] Alexandra FORDE [facility] [employer] CPT-4: 93696 08/17/2011 OFFICE/OUTPATIENT VISIT EST Diagnosis: URINARY TRACT INFECTION[ICD9: 599.0] Steph MARINQUE [facility]KE [facility]: 86430 10/14/2010 Plan of Care Planned Activity Notes [...] : G47.00 02/14/2019 Appointment: Alexandra Carroll WPtel: [address] [place], [place] [phone] US CANCELED 02/12/2019 Visit Diagnosis Plan: Small bowel obstruction Discussi on: S/P surgery in September with postop complications of wound dehiscence ICD-9 : 560.9 ICD-10 : K56.609 01/16/2019 Visit Diagnosis Plan: Onychomycosis Discussion: Send n ail for culture ICD-9 : 110.1 ICD-10 : B35.1 01/16/2019 Appointment: Alexandra Carroll WPtel: [address] [place], [place] [phone] US MEDICATION REVIEW 01/16/2019 Appointment: Alexandra Carroll WPtel: [address] [place], [place] [phone] US CANCELED 12/12/2018 Visit Diagnosis Plan: Radiculopathy, lumbosacral regio n Discussion: Had left SI joint injection by Dr. Baig about 2 weeks ago and has fwup with him ICD-9 : 724.4 ICD-10 : M54.17 09/18/2018 Visit Diagnosis Plan: Diarrhea, unspecified Discussion : Due for updated colonoscopy ICD-9 : 787.91 ICD-10 : R19.7 09/18/2018 Appointment: Alexandra Carroll WPtel: [address] [place], [place] [phone] US PATIENT CONSULT 15 09/18/2018 Care Plan: Referral Order SNOMED-CT : 30 [id number] Pending 09/18/2018 Visit Diagnosis Plan: Sacroiliitis, not [...] : G47.33 08/10/2018 Appointment: Alexandra Carroll WPtel: [address] [place], [place] [phone] US MEDICATION REVIEW 08/10/2018 Care Plan: Referral Order SNOMED-CT : 30 [id number] Pending 08/10/2018 Appointment: Alexandra Carroll WPtel: [facility]6 [facility] US CANCELED 04/17/2018 Visit Diagnosis Plan: Fracture [...] : M54.17 03/27/2018 Appointment: Alexandra Carroll WPtel: [facility]9 [facility] US FOLLOW UP 03/27/2018 Visit Diagnosis Plan: [...] ICD-10 : M51.36 02/23/2018 Appointment: Alexandra Carrolltel: [address] [place] [address] US FOLLOW UP 02/23/2018 Patient Education: gabapentin- [employer] Coupon [id number] [phone] [email or web address] Completed 02/23/2018 Visit Diagnosis Plan: Fracture of unspec ified part of left clavicle, subsequent encounter for fracture with routine healing Discussion: Hold on PT and do home stretches Trial of gabapentin Recheck 4 weeks ICD-9 : V54.11 ICD-10 : S42.002D 01/24/2018 Appointment: Alexandra Carrolltel: [address] [place] [address] US FOLLOW UP 01/24/2018 Visit Diagnosis Plan: Migraine, unspecif ied, not intractable, without status migrainosus Discussion: Toradol and phenergan given ICD-9 : 346.90 ICD-10 : G43.909 01/17/2018 Appointment: Alexandra Carrolltel: [address] [place] [address] ACUTE ILLNESS 01/17/2018 Visit Diagnosis Plan: Hematuria, [...] ICD-10 : R33.9 12/29/2017 Appointment: Alexandra Carrolltel: [address] [place], [place] [phone] ACUTE ILLNESS 12/29/2017 Care Plan: US EXAM PELVIC COMPLETE LOINC : 73619-6 Pending 12/29/2017 Care Plan: ECHO EXAM OF ABDOMEN LOINC : 42018-7 Pending 12/29/2017 Care Plan: Referral Order SNOMED-CT : 30 [id number] Pending 12/29/2017 Visit Diagnosis Plan: Fracture of unspec ified part of left clavicle, subsequent encounter for fracture with routine healing Discussion: Start PT in another 7-14 days Off work for the rest of this week then may return to part-time work on 12/12/17 Fwup in 4 weeks ICD-9 : V54.11 ICD-10 : S42.002D 12/06/2017 Appointment: Alexandra Carroll tel: [phone] [facility] US FOLLOW UP 12/06/2017 Patient Education: [...] ICD-10 : Z88.1 12/01/2017 Appointment: Vandana Crowe [address] [place], [place] [phone] US FOLLOW UP 12/01/2017 Patient Education: Patient [...] : L03.113 11/30/2017 Appointment: Vandana Crowe [address] [facility] 11/30/2017 Patient Education: Patient Medication [...] ICD-10 : L03.113 11/29/2017 Appointment: Vandana Crowe [address] [place], [place] [address] FOLLOW UP 11/29/2017 Patient Education: Patient Medication [...] : L03.113 11/28/2017 Appointment: Vandana Crowe [address] [facility] ACUTE ILLNESS 11/28/2017 Patient Education: [...] M47.899 11/17/2017 [facility]ment: [phone] [facility] [facility] 11/17/2017 Patient Education: Patient Medication Summary Completed 11/17/2017 Care Plan: Referral Order SNOMED-CT : 30 [id number] Pending 11/17/2017 Patient Education: Patient Medication Summary Completed 10/12/2017 Care Plan: MRI LUMBAR SPINE W/O DYE LOIN C : 14621-2 Pending 10/12/2017 Care Plan: X-RAY EXAM L-S SPINE 2/3 VWS LOINC : 44212-9 Pending 10/11/2017 Visit Diagnosis Plan: Other retention [...] ICD-10 : M54.17 10/10/2017 Appointment: Vandana Crowe [address] [place] [address] ACUTE ILLNESS 10/10/2017 Patient Education: Patient Medication Summary Completed 10/10/2017 Appointment: Vandana Crowe [address] [place] [address] ACUTE ILLNESS 08/01/2017 Visit Diagnosis Plan: Other intervertebral disc degene ration, lumbar region Discussion: Core strengtheing and inversion table and if worsening will need updated MRI ICD-9 : 722.52 ICD-10 : M51.36 06/22/2017 Visit Diagnosis Plan: [facility] abnormal findings Discussion: Lab dis ussed Follow Up: 6 months ICD-9 : V70.0 ICD-10 : Z00.00 06/22/2017 Appointment: Alexandra Carroll WPtel: [facility] [address] Annual Well Visit 06/22/2017 Patient Education: Patient Medication Summary Completed 06/22/2017 Patient Education: Patient Medication Summary Completed 06/16/2017 Care Plan: COMPREHEN METABOLIC PANEL [place] : 29867-3 Pending 06/16/2017 Care Plan: ASSAY THYROID STIM HORMONE Pen ding 06/16/2017 Care Plan: ASSAY OF FREE THYROXINE Pendin g 06/16/2017 Care Plan: LIPID PANEL LOINC : 35776-1 Pending 06/16/2017 Care Plan: CBC Pending 06/16/2017 [...] Fluids... 03/28/2017 Appointment: Alexandra Carroll WPtel: [phone] ACUTE ILLNESS 03/28/2017 Patient Education: Patient Medication Summary Completed 03/28/2017 Visit Diagnosis Plan: Acute sinusitis, unspecified Dis cussion: cefdinir and medrol dose pack prescribed to be taken as directed. tylenol/ibuprofen as needed. educated on importance of taking singulair or zyrtec daily to prevent worsening symptoms. keep hydrated. ICD-9 : 461.9 ICD-10 : J01.90 02/16/2017 Appointment: Vandana Crowe [address] [place] [address] ACUTE ILLNESS 02/16/2017 Patient Education: Patient Medication Summary Completed 02/16/2017 Appointment: Alexandra Carroll WPtel: [facility] [address] INJECTION 11/02/2016 Patient Education: Patient Medication Summary Completed 11/02/2016 Visit Diagnosis Plan: Pain in thoracic spine Discussio n: Increase flexeril to 10mg po BID Add Mobic 15mg po daily Towel stretch May see chiropractor to adjust ribs Notify if persists or worsening ICD-9 : 724.1 ICD-10 : M54.6 09/06/2016 Appointment: Alexandra Carroll WPtel: [phone] ACUTE ILLNESS 09/06/2016 Patient Education: Patient Medication Summary Completed 09/06/2016 Visit Plan: Due to hx, ERx Cefdinir and Prednisone (discussed risks for both) Given bottle for nasal saline rinses Tylenol/Ibuprofen prn pain/fever Fluids/rest Discussed s/s of worsening, RTC if no improvement 08/16/2016 Appointment: Vidya Manuel WPtel: [address] [place], [place] [id number] ACUTE ILLNESS 08/16/2016 Patient Education: Patient Medication [...] : F51.01 07/19/2016 Appointment: Alexandra Carroll WPtel: [address] [place], [place] [phone] 07/15 confirmed`sl FOLLOW UP 07/19/2016 Patient [...] : G47.33 07/06/2016 Appointment: Alexandra Carroll WPtel: [facility]2 [facility] 07/05 confirmed-sp FOLLOW UP 07/06/2016 Patient [...] : J30.1 06/15/2016 Appointment: Alexandra Carroll WPtel: [address] [place], [place] [phone] 06/14 lm ~ ACUTE ILLNESS 06/15/2016 Patient Education: Patient Medication Summary Completed 06/15/2016 Visit Diagnosis Plan: Migraine, unspecif ied, not intractable, without status migrainosus Discussion: Injection as above Drink ple nty of water No driving x 6 hours Rest No OTC nsaids today Follow up PRN Refill called of claritin-d ICD-9 : 346.90 ICD-10 : G43.909 04/09/2016 Appointment: Nae Mckay [address] [place] [address] ACUTE ILLNESS 04/09/2016 Patient Education: Patient Medication [...] : E78.2 03/17/2016 Appointment: Alexandra Carroll WPtel: [address] [place], [place] [id number] 03/16 nvm~sl 03/17 confirmed`sl FOLLOW UP 0 03/17/2016 Patient Education: Patient Medication Summary Completed 03/17/2016 Appointment: Alexandra Carroll WPtel: [address] [place], [place] [id number] 03/11 lm~sl 03/15lm `sl 03/15 confirmed`sl FOLLOW [...] same robert. If working well, continue the f4avwcl office visits. Call if not working well, and will restart xanax at for sleep. 11/13/2015 Appointment: Nae Mckay [address] [place], [place] [id number] 11/11 confirmed~sl FOLLOW UP 11/13/2015 Patient Education: Patient Medication Summary Completed 11/13/2015 Appointment: Alexandra Carroll WPtel: [address] [place], [place] [id number] Suture Removal 06/23/2015 Patient Education: Patient Medication Summary Completed 06/23/2015 Visit Plan: Removal of lesion above usin g 3-0 punch biopsy Return in 10 days for suture removal 06/12/2015 Appointment: Alexandra Carroll WPtel: [address] [place], [place] [id number] 06/10 lm ~sl ACUTE ILLNESS 06/12/2015 Patient Education: Patient Medication Summary Completed 06/12/2015 Referral: Soy Garcia [facility]el: [facility] Schedule patient around lunch time and 3 weeks from 04/22/2015 ~ Spoke with Kiesha at Dr. Sandoval Office and 04/24/15 and scheduled the patient ~sl 04/24/15 Patient is informed~ 06/03 Patient canceled the appointment ~ Patient did not show up for scheduled appointment-sp Appoint ment Requested 05/21/2015 Appointment: Alexandra Carroll WPtel: [address] [place], [place] [phone] [facility] 05/05/2015 Patient Education: Patient Medication Summary Completed 05/05/2015 Visit Plan: Starts PT today Schedule wit h Dr. 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 and will get checked then 04/22/2015 Appointment: Alexandra Carroll WPtel: [address] [place], [place] [id number] 04/21 confirmed~lb ACUTE ILLNESS 04/22/2015 Patient Education: Patient Medication Summary Completed 04/22/2015 Referral: Lincoln Hernandez WPtel: [address] [place] [address] Referral Initiated 04/10/2015 Patient Education: Patient Medication Summary Completed 04/09/2015 Visit Plan: Start with lumosacral spine x-ray--will likely need MRI of L/S spine x-ray Needs urology--has had to have bladder stretched in past Tivorbex 03/24/2015 Appointment: Alexandra Carroll WPtel: [address] [place], [place] [id number] 03/21/15 appt confirmed cn ACUTE ILLNESS 03/24 Patient Education: Patient Medication Summary Completed 03/24/2015 Visit Plan: Saline nasal flushes prn. Ty lenol/Motrin prn headache. Notify if persists/symptoms worsening. Cefuroxime to cover both sinuses and UTI Culture urine Check lab 02/27/2015 Appointment: Alexandra Carroll WPtel: [address] [place], [place] [id number] 02/26/15 vm to confirm and need new insu meri on file is inactive cn....02/27/15 appt confirmed cn ACUTE ILLNESS 015 Patient Education: Patient Medication Summary Completed 02/27/2015 Visit Plan: Lab discussed Stop simvastat in Check lipids in 6mos Continue all other meds at current dose Had Pap and Mammo 3 weeks ago 06/13/2014 Appointment: Alexandra Carroll WPtel: [address] [place], [place] [phone] Annual Well Visit 06/13/2014 Patient Education: Patient Medication Summary Completed 06/13/2014 Appointment: Shalini Walters WPtel: [address] [place] [address] ACUTE ILLNESS 04/18/2014 Patient Education: Patient Medication Summary Completed 04/18/2014 Visit Plan: Check lab in May then fwup Can try decreasing xanax to 1mg q HS with melatonin 5-10mg q HS 12/05/2013 Appointment: Alexandra Carroll WPtel: [address] [place] [address] 12/04 FOLLOW UP 12/05/2013 Patient Education: Patient Medication Summary Completed 12/05/2013 Appointment: Alexandra Carroll WPtel: [address] [place] [address] FOLLOW UP 06/05/2013 Patient Education: Patient Medication Summary Completed 06/05/2013 Appointment: Alexandra Carroll WPtel: [address] [place] [address] FOLLOW UP 05/22/2013 Patient Education: Patient Medication Summary Completed 05/22/2013 Visit Plan: Zovirax for 2wks Notify if p ain worsens or if persists 04/05/2013 Appointment: Alexandra Carroll WPtel: [address] [place] [address] ACUTE ILLNESS 04/05/2013 Patient Education: Patient Medication Summary Completed 04/05/2013 Visit Plan: Keep Wellbutrin at current d ose Pt did see for counseling 03/26/2013 Appointment: Alexandra Carroll WPtel: [address] [place] [address] ACUTE ILLNESS 03/26/2013 Patient Education: Patient Medication Summary Completed 03/26/2013 Visit Plan: Continue citalopram at curre nt dose Increase xanax to 1-2mg q HS for sleep Add Wellbutrin Sr 100mg q AM Start Counseling 03/06/2013 Appointment: Alexandra Carroll WPtel: [address] [place] [address] ACUTE ILLNESS 03/06/2013 Patient Education: Patient Medication Summary Completed 03/06/2013 Appointment: Alexandra Carrolltel: [address] [place] [address] ACUTE ILLNESS 11/29/2012 Patient Education: Patient Medication Summary Completed 11/29/2012 Appointment: Alexandra Carroll WPtel: [address] [place] [address] ACUTE ILLNESS 09/26/2012 Patient Education: Patient Medication Summary Completed 09/26/2012 Appointment: Alexandra Carrolltel: [address] [place] [address] ACUTE ILLNESS 07/11/2012 Patient Education: Patient Medication Summary Completed 07/11/2012 Appointment: Alexandra Carrolltel: [address] [place] [address] LAB 02/17/2012 Patient Education: Patient Medication Summary Completed 02/17/2012 Visit Plan: Check fasting lab Start annie y ca with Vit D Cont CPAP Mammo up-to-date Hemoccult card given 02/02/2012 Appointment: Alexandra Carrolltel: [address] [place] [address] PHYSICAL 02/02/2012 Patient Education: Patient Medication Summary Completed 02/02/2012 Appointment: Alexandra Carrolltel: [address] [place] [address] [place] UA 08/27/2011 Patient Education: Patient Medication Summary Completed 08/27/2011 Visit Plan: Levaquin and Diflucan for 1w k Then cipro QOD for prophylaxis 08/17/2011 Appointment: Alexandra Carrolltel: [address] [place] [address] FOLLOW UP 08/17/2011 Patient Education: Patient Medication Summary Completed 08/17/2011 Appointment: Alexandra Carroll WPtel: [phone] [facility] UA 12/28/2010 Patient Education: Patient Medication Summary Completed 12/28/2010 Appointment: Alexandra Carroll WPtel: [address] [place], [place] [id number] UA 11/09/2010 Patient Education: Patient Medication Summary Completed 11/09/2010 Appointment: Alexandra Carroll WPtel: [address] [place], [place] [id number] UA 10/29/2010 Patient Education: Patient Medication Summary Completed 10/29/2010 Appointment: Steph Bowen WPtel: [address] [place], [place] [id number] ACUTE ILLNESS 10/14/2010 Patient Education: Patient Medication Summary Completed 10/14/2010 Referral: Florian Baig WPtel: [facility] [address] [place] Referral Initiated Referral: Luis Enrique Jasso WPtel: [facility] [address] [place] Referral Appointment Requested Referral: Florian Baig WPtel: [facility] [address] [place] Referral Appointment Requested Referral: Caleb Glaser WPtel: [address] [place] Referral Appointment Requested Referral: Florian Baig WPtel: [facility] [address] 1 [id number] [place] Referral Initiated Referral: Florian Baig WPtel: [facility] [address] 1 [id number] [place] Referral Appointment Requested Instructions Comment . [...] same robert. If working well, continue the [id number] office visits. Call if not working well, and will restart xanax at HS for sleep. . Removal of lesion above using 3-0 punc h biopsy Return in 10 days for suture removal . Starts PT today Schedule with Dr. 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
--- OUTSIDE RECORDS SUMMARY | 2019-09-02 00:34 | XMS REPORT | CCD ---
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 Role Phone Alexandra Carroll D.O., PP Unavailable CCM Unavailable Summary Purpose Interface Exchange Insurance Providers Payer name Policy type / Coverage type Covered libertarian ID Effective Begin Date Effective End Date [facility] [employer] Insurance [id number] 2017 Un known Family History Family History data not found Social History Social History Element Codes Description Effective Dates Tobacco history SNOMED CT: 353459274 Nonsmoker 10/14/2010 Allergies, Adverse Reactions, Alerts Substance Reaction Codes Entered Date Inactivated Date Status MORPHINE SULFATE RxNorm: 9105594 10/14/2010 No Inactive Da te Active CEPHALOSPORINS rash Unknown 12/06/2017 No Inactive Date Acti ve SULFA (SULFONAMIDES) Unknown 10/14/2010 No Inactive Cruz e Active Clindamycin HCl Unknown 12/06/2017 No Inactive Date Act unique _ reaction, Unknown 06/13/2014 No Inactive Date Active DEMEROL Unknown 10/14/2010 No Inactive Date Active Problems Condition Codes Effective Dates Condition Status FLU VACCINE ICD-9: V04.81 ICD-10: Z23 01/16/2019 [...] Fill Instructions cyclobenzaprine 10 mg tablet RxNorm: 411624 1 Tablet(s) Oral three times a day as needed for muscle spasm 02/12/2019 02/12/2019 Inactive Xanax 1 mg tablet RxNorm: 131664 1-2 Tablet(s) Oral e very night at bedtime as needed for sleep 02/09/2019 03/10/2019 Active Generic For:LAVELLE AX 1MG 10/11/2016 11:15:13 AM Xanax 1 mg tablet RxNorm: 264296 1-2 Tablet(s) Oral e very night at bedtime as needed for sleep 01/22/2019 02/08/2019 Inactive Generic For:LAVELLE AX 1MG 10/11/2016 11:15:13 AM Celexa 40 mg tablet RxNorm: 327339 1 Tablet(s) Oral QD 01/17/2019 Active - First Attempt Ref: [id number] Xanax 1 mg tablet RxNorm: 481999 1 Tablet(s) Oral every night a t bedtime 01/08/2019 01/21/2019 Inactive levothyroxine 88 mcg tablet RxNorm: 977309 TAKE 1 TABLET BY NINA TH DAILY 12/19/2018 06/16/2019 Active - First Attempt Ref: [id number] Xanax 1 mg tablet RxNorm: 590473 1 Tablet(s) Oral every night a t bedtime 12/06/2018 01/05/2019 Inactive Singulair 10 mg tablet RxNorm: 706216 1 Tablet(s) Oral every ni ght at bedtime 11/23/2018 11/17/2019 Active - First Attempt Ref: [id number] Celexa 40 mg tablet RxNorm: 138502 1 Tablet(s) Oral 11/23/20182018 Inactive - First Attempt Ref: [id number] cyclobenzaprine 10 mg tablet RxNorm: 530126 1 Tablet(s) Oral three times a day as needed for muscle spasm 11/23/2018 02/11/2019 Inactive Xanax 1 mg tablet RxNorm: 541043 1 Tablet(s) PO QHS 11/06/20182018 Inactive Xanax 1 mg tablet RxNorm: 404761 1 Tablet(s) PO QHS 09/26/20182018 Inactive Singulair 10 mg tablet RxNorm: 875964 TAKE 1 TABLET BY MOUTH EVERY NIGHT AT BEDTIME 08/16/2018 11/22/2018 Inactive - First Attempt Ref: [id number] Xanax 1 mg tablet RxNorm: 782192 1 Tablet(s) PO QHS 08/01/20182018 Inactive levothyroxine 88 mcg tablet RxNorm: 486025 TAKE 1 TABLET BY NINA TH DAILY 07/31/2018 12/18/2018 Inactive - First Attempt Ref: [id number] Celexa 40 mg tablet RxNorm: 521738 TAKE 1 TABLET BY MOUTH DAILY 04/201811/22/2018 Inactive - First Attempt Ref: [id number] 54 bupropion HCl SR 100 mg tablet,12 hr sustained-release RxNor m: 470649 1 Tablet(s) PO BID 07/12/2018 07/06/2019 Active - Ref: [id number] 7 Claritin-D 24 Hour 10 mg-240 mg tablet,extended release RxNo rm: 8668937 1 Tablet(s) PO QD 06/29/2018 2018 Inactive Claritin-D 24 Hour 10 mg-240 mg tablet,extended release RxNo rm: 3116847 1 Tablet(s) PO QD 06/29/2018 2018 Inactive Xanax 1 mg tablet RxNorm: 457718 1-2 Tablet(s) PO QHS as needed for sleep 05/26/2018 06/23/2018 Inactive Generic For:XANAX 1M G 10/11/2016 11:15:13 AM Xanax 1 mg tablet RxNorm: 594303 1-2 Tablet(s) PO QHS as needed for sleep 03/28/2018 05/25/2018 Inactive Generic For:XANAX 1M G 10/11/2016 11:15:13 AM Macrobid 100 mg capsule RxNorm: 704072 1 Capsule(s) PO BID 03/27/19 19 03/31/2018 Inactive gabapentin 300 mg capsule RxNorm: 555116 1 Capsule(s) PO QHS 201703/26/2018 Inactive Claritin-D 24 Hour 10 mg-240 mg tablet,extended release RxNo rm: 4453221 1 Tablet(s) PO QD 01/26/2018 02/24/2018 Inactive gabapentin 100 mg capsule RxNorm: 003595 1 Capsule(s) P O QHS for 1 week then 2 po q HS for 2 weeks then 3 po q HS 01/24/2018 03/26/2018 Inactive Xanax 1 mg tablet RxNorm: 157318 1-2 Tablet(s) PO QHS as needed for sleep 01/24/2018 03/24/2018 Inactive Generic For:XANAX 1M G 10/11/2016 11:15:13 AM prednisone 20 mg tablet RxNorm: 144793 1 Tablet(s) PO T ID for 3 days then 1 po BID for 3 days then one daily for 3 days 12/29/2017 03/26/2018 Inactiv e prednisone 20 mg tablet RxNorm: 154111 3 Tablet(s) PO T ID for 3 days then 1 po BID for 3 days then one daily for 3 days 12/29/2017 12/29/2017 Inactiv e Macrobid 100 mg capsule RxNorm: 495828 1 Capsule(s) PO BID 12/30/19 18 01/02/2018 Inactive Xanax 1 mg tablet RxNorm: 124194 1-2 Tablet(s) PO QHS as needed for sleep 12/28/2017 01/23/2018 Inactive Generic For:XANAX 1M G 10/11/2016 11:15:13 AM Medrol (Walter) 4 mg tablets in a dose pack RxNorm: 104251 Tablet(s) PO take as directed 12/01/2017 03/26/2018 Inactive Keflex 750 mg capsule RxNorm: 951236 1 Capsule(s) PO BID 12/01/2017 1 Inactive clindamycin HCl 300 mg capsule RxNorm: 813550 2 Capsule(s) PO TID 1 12/08/2017 Inactive Xanax 1 mg tablet RxNorm: 035887 1-2 Tablet(s) PO QHS as needed for sleep 11/28/2017 12/27/2017 Inactive Generic For:XANAX 1M G 10/11/2016 11:15:13 AM mupirocin 2 % topical ointment RxNorm: 232292 1 Application OTIC BI D 11/28/2017 08/09/2018 Inactive Xanax 1 mg tablet RxNorm: 902179 1-2 Tablet(s) PO QHS as needed for sleep 10/27/2017 11/25/2017 Inactive Generic For:XANAX 1M G 10/11/2016 11:15:13 AM Macrobid 100 mg capsule RxNorm: 695932 1 Capsule(s) PO BID 10/11/19 18 10/16/2017 Inactive Medrol (Walter) 4 mg tablets in a dose pack RxNorm: 277822 Tablet(s) PO take as directed 10/10/2017 11/16/2017 Inactive Xanax 1 mg tablet RxNorm: 258361 1-2 Tablet(s) PO QHS as needed for sleep 09/28/2017 10/26/2017 Inactive Generic For:XANAX 1M G 10/11/2016 11:15:13 AM Xanax 1 mg tablet RxNorm: 638685 1-2 Tablet(s) PO QHS as needed for sleep 08/30/2017 09/27/2017 Inactive Generic For:XANAX 1M G 10/11/2016 11:15:13 AM Xanax 1 mg tablet RxNorm: 031657 1-2 Tablet(s) PO QHS as needed for sleep 08/30/2017 08/29/2017 Inactive Generic For:XANAX 1M G 10/11/2016 11:15:13 AM Xanax 1 mg tablet RxNorm: 616626 1-2 Tablet(s) PO QHS as needed for sleep 08/01/2017 08/29/2017 Inactive Generic For:XANAX 1M G 10/11/2016 11:15:13 AM Xanax 1 mg tablet RxNorm: 365204 1-2 Tablet(s) PO QHS as needed for sleep 06/29/2017 2017 Inactive Generic For:XANAX 1M G 10/11/2016 11:15:13 AM Claritin-D 24 Hour 10 mg-240 mg tablet,extended release RxNo rm: 2414249 1 Tablet(s) PO QD 06/29/2017 2017 Inactive levothyroxine 88 mcg tablet RxNorm: 256608 1 Tablet(s) PO QD 201709/10/2017 Inactive Xanax 1 mg tablet RxNorm: 177346 1-2 Tablet(s) PO QHS as needed for sleep 05/26/2017 06/28/2017 Inactive Generic For:XANAX 1M G 10/11/2016 11:15:13 AM Claritin-D 24 Hour 10 mg-240 mg tablet,extended release RxNo rm: 8086545 1 Tablet(s) PO QD 05/26/2017 06/24/2017 Inactive bupropion HCl SR 100 mg tablet,12 hr sustained-release RxNor m: 198503 Tablet(s) Take 1 tablet by mouth two times daily 04/06/2017 12/31/2017 Inactive - Ref: [id number] Xanax 1 mg tablet RxNorm: 791732 1-2 Tablet(s) PO QHS as needed for sleep 03/24/2017 05/22/2017 Inactive Generic For:XANAX 1M G 10/11/2016 11:15:13 AM Medrol (Walter) 4 mg tablets in a dose pack RxNorm: 411820 Tablet(s) P O 02/16/2017 03/27/2017 Inactive Xanax 1 mg tablet RxNorm: 897202 Tablet(s) TAKE ONE T O TWO TABLETS BY MOUTH AT BEDTIME NEEDED 02/16/2017 03/17/2017 Inactive Generic For:XA NAX 1MG 10/11/2016 11:15:13 AM Claritin-D 24 Hour 10 mg-240 mg tablet,extended release RxNo rm: 8081652 1 Tablet(s) PO QD 02/16/2017 04/16/2017 Inactive cefdinir 300 mg capsule RxNorm: 651900 2 Capsule(s) PO QD 02/16/2017 02/25/2017 Inactive Celexa 40 mg tablet RxNorm: 153713 Tablet(s) Take 1 tablet by m outh daily 12/23/2016 09/18/2017 Inactive - Ref: [id number] Xanax 1 mg tablet RxNorm: 154669 Tablet(s) TAKE ONE T O TWO TABLETS BY MOUTH AT BEDTIME NEEDED 12/16/2016 01/14/2017 Inactive Generic For:XA NAX 1MG 10/11/2016 11:15:13 AM Xanax 1 mg tablet RxNorm: 270882 Tablet(s) TAKE ONE T O TWO TABLETS BY MOUTH AT BEDTIME NEEDED 11/18/2016 12/15/2016 Inactive Generic For:XA NAX 1MG 10/11/2016 11:15:13 AM Xanax 1 mg tablet RxNorm: 339688 TAKE ONE TO TWO TABL ETS BY MOUTH AT BEDTIME NEEDED 10/11/2016 11/17/2016 Inactive Generic For:XANA X 1MG 10/11/2016 11:15:13 AM Mobic 15 mg tablet RxNorm: 720408 1 Tablet(s) PO QD 09/06/20162016 Inactive Claritin-D 24 Hour 10 mg-240 mg tablet,extended release RxNo rm: 0293256 1 Tablet(s) PO QD 09/02/2016 11/30/2016 Inactive prednisone 20 mg tablet RxNorm: 053845 1 Tablet(s) PO T ID for 3 days then 1 po BID for 3 days then one daily for 3 days 08/16/2016 03/27/2017 Inactiv e cefdinir 300 mg capsule RxNorm: 328164 2 Capsule(s) PO QD 08/16/2016 09/05/2016 Inactive Xanax 1 mg tablet RxNorm: 143594 TAKE ONE TO TWO TABL ETS BY MOUTH AT BEDTIME NEEDED 08/05/2016 10/11/2016 Inactive Generic For:XANA X 1MG 08/05/2016 2:27:03 PM08/04/2016 4:15:22 PM Singulair 10 mg tablet RxNorm: 539015 1 Tablet(s) PO QHS 07/06/2016 0 09/03/2016 Inactive prednisone 20 mg tablet RxNorm: 746956 1 Tablet(s) PO T ID for 3 days then 1 po BID for 3 days then one daily for 3 days 06/15/2016 07/05/2016 Inactiv e Singulair 10 mg tablet RxNorm: 749376 1 Tablet(s) PO QHS 06/15/2016 0 07/05/2016 Inactive cefdinir 300 mg capsule RxNorm: 048362 2 Capsule(s) PO QD 06/15/2016 07/05/2016 Inactive Xanax 1 mg tablet RxNorm: 006638 1-2 Tablet(s) PO QHS 05/21/201610/2016 Inactive Claritin-D 24 Hour 10 mg-240 mg tablet,extended release RxNo rm: 7262682 1 Tablet(s) PO QD 04/09/2016 07/07/2016 Inactive Xanax 1 mg tablet RxNorm: 824049 1-2 Tablet(s) PO QHS 03/23/201604/29 Inactive levothyroxine 88 mcg tablet RxNorm: 775942 1 Tablet(s) PO QD 201606/13/2017 Inactive bupropion HCl SR 100 mg tablet,sustained-release RxNorm: 993 503 Take 1 tablet by mouth two times daily 03/15/2016 12/09/2016 Inactive - Ref: 20 [id number] Celexa 40 mg tablet RxNorm: 218611 Take 1 tablet by mouth daily 12/23/2016 Inactive - Ref: [id number] Xanax 1 mg tablet RxNorm: 067252 1-2 Tablet(s) PO QHS 02/17/201603/01 Inactive levothyroxine 88 mcg tablet RxNorm: 579982 1 Tablet(s) PO QD 201502/22/2016 Inactive Xanax 1 mg tablet RxNorm: 285657 1-2 Tablet(s) PO QHS 11/25/201511/29 Inactive levothyroxine 88 mcg tablet RxNorm: 764118 1 Tablet(s) PO QD 201511/24/2015 Inactive temazepam 30 mg capsule RxNorm: 197980 1 Capsule(s) PO QHS 11/13/19 16 11/24/2015 Inactive Xanax 1 mg tablet RxNorm: 995507 1-2 Tablet(s) PO QHS 09/15/201510/29 Inactive Celexa 40 mg tablet RxNorm: 362880 1 Tablet(s) PO QD 1 Tablet(s ) PO QD 09/10/2015 09/16/2015 Inactive bupropion HCl SR 100 mg tablet,sustained-release RxNorm: 993 503 1 Tablet(s) PO BID 09/10/2015 09/23/2015 Inactive Xanax 1 mg tablet RxNorm: 505953 1-2 Tablet(s) PO QHS 09/10/201508/28 Inactive Xanax 1 mg tablet RxNorm: 943728 1-2 Tablet(s) PO QHS 08/11/201508/28 Inactive cyclobenzaprine 10 mg tablet RxNorm: 225572 1 Tablet(s) PO TID prn spasm 07/09/2015 11/23/2018 Inactive Celexa 40 mg tablet RxNorm: 125989 1 Tablet(s) PO QD 06/06/201508/03 Inactive Xanax 1 mg tablet RxNorm: 921124 1-2 Tablet(s) PO QHS 06/04/201505/2015 Inactive levothyroxine 88 mcg tablet RxNorm: 779496 1 Tablet(s) PO QD 201511/23/2015 Inactive Ceftin 500 mg tablet RxNorm: 940666 1 Tablet(s) PO BID 05/05/2015 Inactive Ceftin 500 mg tablet RxNorm: 928961 1 Tablet(s) PO BID 05/05/201507/2015 Inactive meloxicam 15 mg tablet RxNorm: 342147 1 Tablet(s) PO QD 04/16/2015 Inactive meloxicam 15 mg tablet RxNorm: 421450 1 Tablet(s) PO QD 04/16/2015 Inactive diclofenac sodium 75 mg tablet,delayed release RxNorm: 67508 6 1 Tablet(s) PO BID 04/04/2015 04/15/2015 Inactive diclofenac sodium 75 mg tablet,delayed release RxNorm: 89596 6 1 Tablet(s) PO BID 04/04/2015 04/03/2015 Inactive Tivorbex 40 mg capsule RxNorm: 9122819 1 Capsule(s) PO TID 03/24/19 16 04/02/2015 Inactive bupropion HCl SR 100 mg tablet,sustained-release RxNorm: 993 503 1 Tablet(s) PO BID 03/11/2015 09/06/2015 Inactive cyclobenzaprine 10 mg tablet RxNorm: 966820 1 Tablet(s) PO TID prn spasm 03/11/2015 07/08/2015 Inactive levothyroxine 88 mcg tablet RxNorm: 313881 1 Tablet(s) PO QD 201405/27/2015 Inactive Claritin-D 24 Hour 10 mg-240 mg tablet,extended release RxNo rm: 6890839 1 Tablet(s) PO QD 02/27/2015 05/27/2015 Inactive cefuroxime axetil 500 mg tablet RxNorm: 261053 1 Tablet(s) PO BID 1 03/12/2015 Inactive Celexa 40 mg tablet RxNorm: 473108 1 Tablet(s) PO QD 02/05/201504/05 Inactive levothyroxine 75 mcg tablet RxNorm: 360475 1 Tablet(s) PO QD 201402/26/2015 Inactive Celexa 40 mg tablet RxNorm: 862745 1 Tablet(s) PO QD 10/09/201402/04 Inactive Activella 1 mg-0.5 mg tablet RxNorm: 1614823 1 Tablet(s) PO QD 08/2802/26/2015 Inactive bupropion HCl SR 100 mg tablet,sustained-release RxNorm: 993 503 1 Tablet(s) PO BID 09/12/2014 03/10/2015 Inactive levothyroxine 75 mcg tablet RxNorm: 513529 1 Tablet(s) PO QD 201412/09/2014 Inactive levothyroxine 75 mcg tablet RxNorm: 777891 1 Tablet(s) PO QD 201409/11/2014 Inactive Celexa 40 mg tablet RxNorm: 556490 1 Tablet(s) PO QD 08/12/201410/08 Inactive Xanax 1 mg tablet RxNorm: 314212 1-2 Tablet(s) PO QHS 08/12/201409/28 Inactive Claritin-D 24 Hour 10 mg-240 mg tablet,extended release RxNo rm: 8332944 1 Tablet(s) PO QD 06/13/2014 09/10/2014 Inactive cyclobenzaprine 10 mg tablet RxNorm: 366762 1 Tablet(s) PO TID prn spasm 06/12/2014 02/26/2015 Inactive Xanax 1 mg tablet RxNorm: 719612 1-2 Tablet(s) PO QHS 05/09/201406/28 Inactive levothyroxine 75 mcg tablet RxNorm: 475147 1 Tablet(s) PO QD 201407/08/2014 Inactive cephalexin 500 mg capsule RxNorm: 031543 1 Capsule(s) PO QOD 201402/26/2015 Inactive simvastatin 10 mg tablet RxNorm: 903752 1 Tablet(s) PO QHS 04/10/19 15 06/12/2014 Inactive Xanax 1 mg tablet RxNorm: 224734 1-2 Tablet(s) PO QHS 04/10/201404/28 Inactive levothyroxine 75 mcg tablet RxNorm: 742376 1 Tablet(s) PO QD 201404/09/2014 Inactive levothyroxine 75 mcg capsule RxNorm: 711997 1 Capsule(s) PO QD 03/3104/10/2014 Inactive Activella 1 mg-0.5 mg tablet RxNorm: 2227980 1 Tablet(s) PO QD 03/0109/11/2014 Inactive bupropion HCl SR 100 mg tablet,sustained-release RxNorm: 993 503 1 Tablet(s) PO BID 03/04/2014 08/30/2014 Inactive Activella 1 mg-0.5 mg tablet RxNorm: 1291956 1 Tablet(s) PO QD 01/2803/18/2014 Inactive levothyroxine 75 mcg capsule RxNorm: 358614 1 Capsule(s) PO QD 12/2904/08/2014 Inactive simvastatin 10 mg tablet RxNorm: 991814 1 Tablet(s) PO QHS 01/10/2004/08/2014 Inactive cyclobenzaprine 10 mg tablet RxNorm: 038657 1 Tablet(s) PO TID prn spasm 01/09/2014 04/08/2014 Inactive Cipro 500 mg tablet RxNorm: 351769 1 Tablet(s) PO BID 12/25/201304/2013 Inactive Cipro 500 mg tablet RxNorm: 485507 1 Tablet(s) PO BID 12/25/201311/29 Inactive bupropion HCl SR 100 mg tablet,sustained-release RxNorm: 993 503 1 Tablet(s) PO QAM 12/11/2013 03/03/2014 Inactive cephalexin 500 mg capsule RxNorm: 043781 1 Capsule(s) PO QOD 201304/09/2014 Inactive Xanax 1 mg tablet RxNorm: 233613 1-2 Tablet(s) PO QHS 10/15/201310/29 Inactive simvastatin 10 mg tablet RxNorm: 014108 1 Tablet(s) PO QHS 10/11/19 14 01/07/2014 Inactive Celexa 40 mg tablet RxNorm: 493356 Tablet(s) PO TAKE 1 TABLET BY MOUTH ONCE DAILY. 09/18/2013 09/17/2013 Inactive Xanax 1 mg tablet RxNorm: 079334 1-2 Tablet(s) PO QHS 08/13/201308/28 Inactive simvastatin 10 mg tablet RxNorm: 164063 1 Tablet(s) PO QHS 07/12/19 14 10/08/2013 Inactive bupropion HCl SR 100 mg tablet,sustained-release RxNorm: 993 503 1 Tablet(s) PO QAM 05/22/2013 11/17/2013 Inactive Pamelor 10 mg capsule RxNorm: 378197 1 Capsule(s) PO QHS for PLATA /sleep 05/22/2013 06/04/2013 Inactive Xanax 1 mg tablet RxNorm: 675302 1-2 Tablet(s) PO QHS 05/15/201305/29 Inactive Pamelor 10 mg capsule RxNorm: 942236 1 Capsule(s) PO QHS for PLATA /sleep 05/15/2013 05/21/2013 Inactive Xanax 1 mg tablet RxNorm: 190079 1 Tablet(s) PO QHS 04/27/20132013 Inactive Zovirax 800 mg tablet RxNorm: 631115 1 Tablet(s) PO TID 04/05/2013 Inactive Xanax 1 mg tablet RxNorm: 625558 1 Tablet(s) PO QHS 04/03/2013 No Sto p Date Active bupropion HCl SR 100 mg tablet,sustained-release RxNorm: 993 503 1 Tablet(s) PO QAM 03/26/2013 05/21/2013 Inactive bupropion HCl SR 100 mg tablet,sustained-release RxNorm: 993 503 1 Tablet(s) PO QAM 03/06/2013 03/25/2013 Inactive Pamelor 10 mg capsule RxNorm: 463496 1 Capsule(s) PO QHS for PLATA /sleep 02/14/2013 05/14/2013 Inactive levothyroxine 75 mcg capsule RxNorm: 459393 1 Capsule(s) PO QD 12/2901/08/2014 Inactive simvastatin 10 mg tablet RxNorm: 538622 1 Tablet(s) PO QHS TAKE 1 TABLET BY MOUTH ONCE DAILY AT BEDTIME. 01/15/2013 07/10/2013 Inactive cyclobenzaprine 10 mg tablet RxNorm: 724020 1 Tablet(s) PO TID prn spasm 12/25/2012 06/22/2013 Inactive Pamelor 10 mg capsule RxNorm: 512522 1 Capsule(s) PO QHS for PLATA /sleep 11/29/2012 02/14/2013 Inactive Celexa 40 mg tablet RxNorm: 374875 Tablet(s) PO TAKE 1 TABLET BY MOUTH ONCE DAILY. 10/11/2012 09/17/2013 Inactive simvastatin 10 mg tablet RxNorm: 574238 Tablet(s) PO TA KE 1 TABLET BY MOUTH ONCE DAILY AT BEDTIME. 10/11/2012 01/14/2013 Inactive simvastatin 10 mg tablet RxNorm: 300858 1 Tablet(s) PO QD 07/11/2012 10/08/2012 Inactive simvastatin 10 mg tablet RxNorm: 767532 1 Tablet(s) PO QD 04/14/2012 07/11/2012 Inactive simvastatin 10 mg tablet RxNorm: 481840 1 Tablet(s) PO QD 04/14/2012 04/13/2012 Inactive Celexa 40 mg tablet RxNorm: 227142 1 Tablet(s) PO QD 03/15/201209/10 Inactive cyclobenzaprine 10 mg tablet RxNorm: 497689 1 Tablet(s) PO TID prn spasm 02/02/2012 02/01/2012 Inactive cyclobenzaprine 10 mg tablet RxNorm: 988255 1 Tablet(s) PO TID prn spasm 02/02/2012 07/30/2012 Inactive Diflucan 100 mg Tab RxNorm: 292158 1 Tablet(s) PO QD 08/17/201108/22 Inactive Cipro 250 mg Tab RxNorm: 792466 1 Tablet(s) PO QD 08/17/2011 10/15/19 12 Inactive Levaquin 500 mg Tab RxNorm: 822932 1 Tablet(s) PO QD 08/17/201108/22 Inactive Pyridium 200 mg Tab RxNorm: 4454573 1 Tablet(s) PO TID 10/14/2010 Inactive may turn urine orange-red color. Cipro 500 mg Tab RxNorm: 756248 1 Tablet(s) PO BID 10/14/2010 011 Inactive levothyroxine 75 mcg capsule RxNorm: 591245 1 Capsule(s) PO QD 12/3001/14/2011 Inactive loratadine 10 mg tablet RxNorm: 315973 1 Tablet(s) PO QHS No Start Da te Active Vitamin D3 5,000 unit tablet RxNorm: 486273 1 Tablet(s) PO QD No Star t Date Active Nasacort 55 mcg nasal spray aerosol RxNorm: 9392008 2 Sp ray NASAL each nostril QHS No Start Date Active cyclobenzaprine 10 mg tablet RxNorm: 074852 1 Tablet(s) PO TID as needed No Start Date 11/22/2018 Inactive Vitamin D2 1,000 unit capsule RxNorm: 487674 3 Capsule(s) PO QD No Start Date 11/16/2017 Inactive diclofenac sodium 75 mg tablet,delayed release RxNorm: 01771 6 1 Tablet(s) PO BID No Start Date 03/16/2016 Inactive cephalexin 500 mg capsule RxNorm: 748098 1 Capsule(s) PO QOD No Sta rt Date 12/04/2013 Inactive cyclobenzaprine 10 mg tablet RxNorm: 440089 1 Tablet(s) PO QHS No S tart Date 02/01/2012 Inactive hydrocodone 5 mg-acetaminophen 500 mg tablet RxNorm: 591358 1 -2 Tablet(s) PO Q6H as needed No Start Date 08/09/2018 Inactive etodolac 400 mg tablet RxNorm: 380778 1 Tablet(s) PO TID No Start D ate 09/17/2018 Inactive Xanax 1 mg tablet RxNorm: 325579 1 Tablet(s) PO QHS No Start Date 04/2013 Inactive Vitamin D3 1,000 unit capsule RxNorm: 786558 1 Capsule(s) PO QD No Start Date 06/12/2014 Inactive estradiol 2 mg tablet RxNorm: 390504 1/2 Tablet(s) PO QD No Start D ate 03/05/2013 Inactive Celexa 40 mg tablet RxNorm: 623157 1 Tablet(s) PO QD No Start Date Inactive Activella 1 mg-0.5 mg tablet RxNorm: 1910373 1 Tablet(s) PO QD No S tart Date 07/10/2012 Inactive medroxyprogesterone 5 mg tablet RxNorm: 5083839 1/2 Tablet(s) PO QD No Start Date 03/05/2013 Inactive levothyroxine 88 mcg tablet RxNorm: 137270 1 Tablet(s) PO QD No Sta rt Date 02/26/2015 Inactive Keflex 500 mg capsule RxNorm: 467236 1 Capsule(s) PO PRN No Start D ate 08/16/2011 Inactive Activella 1 mg-0.5 mg tablet RxNorm: 1696169 1 Tablet(s) PO QHS No Start Date 03/27/2017 Inactive Activella 1 mg-0.5 mg tablet RxNorm: 2289411 1 Tablet(s) PO QD No S tart Date 02/06/2014 Inactive Flexeril 10 mg Tab RxNorm: 700512 1 Tablet(s) PO TID No Start Date Inactive prn spasm simvastatin 10 mg tablet RxNorm: 347337 1 Tablet(s) PO QD No Start Date 04/13/2012 Inactive Medication Administered No Medication Administered data Immunizations Vaccine Codes Date Status Influenza CVX: 135 01/16/2019 Complete Pneumococcal CVX: 133 01/16/2019 Complete Results No Results data Procedures Procedure Codes Date FLU VACC PRSV FREE INC ANTIG 65 AND OLDER CPT-4: 69193 01/16/2019 FLU VACC PRSV FREE INC ANTIG 65 AND OLDER CPT-4: 93340 01/16/2019 PNEUMOCOCCAL VACC 13 NARESH IM CPT-4: 50855 01/16/2019 SKIN FUNGI CULTURE CPT-4: 74912 01/16/2019 IMMUNIZATION ADMIN CPT-4: 60696 01/16/2019 IMMUNIZATION ADMIN EACH ADD CPT-4: 76770 01/16/2019 THER/PROPH/DIAG INJ SC/IM CPT-4: 69082 01/17/2018 KETOROLAC TROMETHAMINE INJ CPT-4: J1885 01/17/2018 THER/PROPH/DIAG INJ SC/IM CPT-4: 61346 01/17/2018 PROMETHAZINE HCL INJECTION CPT-4: J2550 01/17/2018 URINALYSIS NONAUTO W/O SCOPE CPT-4: 77281 12/29/2017 URINE CULTURE/ COLONY COUNT CPT-4: 50503 12/29/2017 THER/PROPH/DIAG INJ SC/IM CPT-4: 28308 11/30/2017 TRIAMCINOLONE ACET INJ NOS CPT-4: J3301 11/30/2017 DEXAMETHASONE SODIUM PHOS CPT-4: J1100 11/30/2017 CEFTRIAXONE SODIUM INJECTION CPT-4: J0696 11/29/2017 THER/PROPH/DIAG INJ SC/IM CPT-4: 86843 11/29/2017 CEFTRIAXONE SODIUM INJECTION CPT-4: J0696 11/28/2017 THER/PROPH/DIAG INJ SC/IM CPT-4: 28856 11/28/2017 URINALYSIS NONAUTO W/O SCOPE CPT-4: 20172 10/10/2017 THER/PROPH/DIAG INJ SC/IM CPT-4: 75263 10/10/2017 TRIAMCINOLONE ACET INJ NOS CPT-4: J3301 10/10/2017 DEXAMETHASONE SODIUM PHOS CPT-4: J1100 10/10/2017 CEFTRIAXONE SODIUM INJECTION CPT-4: J0696 10/10/2017 THER/PROPH/DIAG INJ SC/IM CPT-4: 02851 10/10/2017 URINE CULTURE/ COLONY COUNT CPT-4: 94970 10/10/2017 THER/PROPH/DIAG INJ SC/IM CPT-4: 14940 11/02/2016 KETOROLAC TROMETHAMINE INJ CPT-4: J1885 11/02/2016 THER/PROPH/DIAG INJ SC/IM CPT-4: 86616 06/15/2016 TRIAMCINOLONE ACET INJ NOS CPT-4: J3301 06/15/2016 DEXAMETHASONE SODIUM PHOS CPT-4: J1100 06/15/2016 THER/PROPH/DIAG INJ SC/IM CPT-4: 52498 04/09/2016 KETOROLAC TROMETHAMINE INJ CPT-4: J1885 04/09/2016 PROMETHAZINE HCL INJECTION CPT-4: J2550 04/09/2016 EXC TR-EXT B9+ERASMO 0.5 CM< CPT-4: 60532 06/12/2015 URINALYSIS NONAUTO W/O SCOPE CPT-4: 61286 05/05/2015 URINE CULTURE/ COLONY COUNT CPT-4: 05281 05/05/2015 URINALYSIS NONAUTO W/O SCOPE CPT-4: 47319 03/24/2015 URINALYSIS NONAUTO W/O SCOPE CPT-4: 18969 02/27/2015 URINE CULTURE/ COLONY COUNT CPT-4: 56617 02/27/2015 THER/PROPH/DIAG INJ SC/IM CPT-4: 80391 04/18/2014 KETOROLAC TROMETHAMINE INJ CPT-4: J1885 04/18/2014 THER/PROPH/DIAG INJ SC/IM CPT-4: 10863 06/05/2013 TRIAMCINOLONE ACET INJ NOS CPT-4: J3301 06/05/2013 THER/PROPH/DIAG INJ SC/IM CPT-4: 02756 11/29/2012 KETOROLAC TROMETHAMINE INJ CPT-4: J1885 11/29/2012 URINALYSIS NONAUTO W/O SCOPE CPT-4: 25284 07/11/2012 URINE CULTURE/ COLONY COUNT CPT-4: 50833 07/11/2012 OCCULT BLOOD FECES CPT-4: 98419 02/17/2012 URINALYSIS NONAUTO W/O SCOPE CPT-4: 95262 08/27/2011 URINE CULTURE/ COLONY COUNT CPT-4: 45447 08/27/2011 URINALYSIS NONAUTO W/O SCOPE CPT-4: 46555 08/17/2011 URINE CULTURE/ COLONY COUNT CPT-4: 43458 08/17/2011 URINALYSIS NONAUTO W/O SCOPE CPT-4: 16976 12/28/2010 URINE CULTURE/ COLONY COUNT CPT-4: 40280 12/28/2010 URINALYSIS NONAUTO W/O SCOPE CPT-4: 69794 11/09/2010 URINE CULTURE/ COLONY COUNT CPT-4: 61946 11/09/2010 URINALYSIS NONAUTO W/O SCOPE CPT-4: 63527 10/29/2010 URINE CULTURE/ COLONY COUNT CPT-4: 13372 10/29/2010 URINE CULTURE/ COLONY COUNT CPT-4: 27889 10/14/2010 URINALYSIS NONAUTO W/O SCOPE CPT-4: 86765 10/14/2010 Vital Signs Date Vital 01/16/2019 Blood Pressure 1: 122/74 Code: 8480-6 BMI: 22.0 Code: 31320-7 Heart Rate 1: 72 bpm Height: 5'3" [...] 1: 126/72 Code: 8480-6 BMI: 22.7 Code: 00918-8 Heart Rate 1: 72 bpm Height: 5'3" [...] 1: 112/70 Code: 8480-6 BMI: 22.0 Code: 68074-3 Heart Rate 1: 80 bpm Height: 5'3" [...] 1: 122/64 Code: 8480-6 BMI: 21.4 Code: 77444-8 Heart Rate 1: 88 bpm Height: 5'3" Respiratory Rate: 22 bpm SpO2: 96% Tempera ture: 36.8 (C) / 98.2 (F) Weight: 121 lbs 06/22/2017 Blood Pressure 1: 124/78 Code: 8480-6 BMI: 21.6 Code: 53275-9 Heart Rate 1: 76 bpm Height: 5'3" Respiratory Rate: 20 bpm Temperature: 36 .8 (C) / 98.3 (F) Weight: 122 lbs 03/28/2017 Blood Pressure 1: 92/60 Code: 8480-6 BMI: 20.4 C ode: 26180-0 Heart Rate 1: 72 bpm Height: 5'3" Respiratory Rate: 20 bpm Temperature: 36 .9 (C) / 98.4 (F) Weight: 115 lbs 02/16/2017 Blood Pressure 1: 106/70 Code: 8480-6 BMI: 21.3 Code: 02517-9 Heart Rate 1: 82 bpm Height: 5'3" Respiratory Rate: 22 bpm SpO2: 97% Tempera ture: 36.1 (C) / 97.0 (F) Weight: 120 lbs 09/06/2016 Blood Pressure 1: 118/64 Code: 8480-6 BMI: 22.7 Code: 02637-2 Heart Rate 1: 78 bpm Height: 5'3" Respiratory Rate: 20 bpm SpO2: 98% Tempera ture: 36.2 (C) / 97.2 (F) Weight: 128 lbs 08/16/2016 Blood Pressure 1: 118/78 Code: 8480-6 BMI: 22.1 Code: 94361-8 Heart Rate 1: 78 bpm Height: 5'3" Respiratory Rate: 20 bpm SpO2: 97% Tempera ture: 36.2 (C) / 97.1 (F) Weight: 125 lbs 07/19/2016 Blood Pressure 1: 116/68 Code: 8480-6 BMI: 22.5 Code: 75449-5 Heart Rate 1: 76 bpm Height: 5'3" Respiratory Rate: 20 bpm Temperature: 36 .8 (C) / 98.2 (F) Weight: 127 lbs 07/06/2016 Blood Pressure 1: 106/70 Code: 8480-6 BMI: 22.5 Code: 83445-5 Heart Rate 1: 72 bpm Height: 5'3" Respiratory Rate: 20 bpm SpO2: 97% Tempera ture: 36.8 (C) / 98.2 (F) Weight: 127 lbs 06/15/2016 Blood Pressure 1: 136/76 Code: 8480-6 BMI: 22.9 Code: 55137-6 Heart Rate 1: 74 bpm Height: 5'3" Respiratory Rate: 18 bpm SpO2: 98% Tempera ture: 36.4 (C) / 97.6 (F) Weight: 129 lbs 04/09/2016 Blood Pressure 1: 124/78 Code: 8480-6 BMI: 23.0 Code: 50817-4 Heart Rate 1: 86 bpm Height: 5'3" Respiratory Rate: 20 bpm SpO2: 96% Tempera ture: 36.5 (C) / 97.7 (F) Weight: 130 lbs 03/17/2016 Blood Pressure 1: 116/74 Code: 8480-6 BMI: 23.4 Code: 90733-6 Heart Rate 1: 84 bpm Height: 5'3" Respiratory Rate: 20 bpm SpO2: 97% Tempera ture: 36.8 (C) / 98.3 (F) Weight: 132 lbs 11/13/2015 Blood Pressure 1: 124/78 Code: 8480-6 BMI: 23.4 Code: 87813-6 Heart Rate 1: 88 bpm Height: 5'3" Respiratory Rate: 24 bpm SpO2: 98% Tempera ture: 36.8 (C) / 98.2 (F) Weight: 132 lbs 06/12/2015 Blood Pressure 1: 126/78 Code: 8480-6 BMI: 23.6 Code: 42701-1 Heart Rate 1: 80 bpm Height: 5'3" Respiratory Rate: 20 bpm Temperature: 36 .9 (C) / 98.4 (F) Weight: 133 lbs 04/22/2015 Blood Pressure 1: 126/68 Code: 8480-6 BMI: 23.6 Code: 02246-7 Heart Rate 1: 80 bpm Height: 5'3" Respiratory Rate: 20 bpm Temperature: 36 .6 (C) / 97.9 (F) Weight: 133 lbs 03/24/2015 Blood Pressure 1: 116/66 Code: 8480-6 BMI: 22.9 Code: 93784-9 Heart Rate 1: 74 bpm Height: 5'3" Respiratory Rate: 20 bpm Temperature: 36 .4 (C) / 97.6 (F) Weight: 129 lbs 02/27/2015 Blood Pressure 1: 106/64 Code: 8480-6 BMI: 22.7 Code: 27284-0 Heart Rate 1: 74 bpm Height: 5'3" Respiratory Rate: 20 bpm Temperature: 36 .8 (C) / 98.2 (F) Weight: 128 lbs 06/13/2014 Blood Pressure 1: 104/66 Code: 8480-6 BMI: 22.7 Code: 38416-8 Heart Rate 1: 84 bpm Height: 5'3" Respiratory Rate: 20 bpm Temperature: 37 .0 (C) / 98.6 (F) Weight: 128 lbs 04/18/2014 Blood Pressure 1: 112/62 Code: 8480-6 BMI: 22.0 Code: 64471-4 Heart Rate 1: 82 bpm Height: 5'3" Respiratory Rate: 18 bpm Temperature: 36 .4 (C) / 97.6 (F) Weight: 124 lbs 12/05/2013 Blood Pressure 1: 106/70 Code: 8480-6 BMI: 23.7 Code: 46033-7 Heart Rate 1: 84 bpm Height: 5'3" [...] 1: 126/88 Code: 8480-6 BMI: 22.3 Code: 86098-4 Heart Rate 1: 96 bpm Height: 5'4" Respiratory Rate: 20 bpm Temperature: 37 .7 (C) / 99.9 (F) Weight: 130 lbs 11/29/2012 Blood Pressure 1: 122/76 Code: 8480-6 BMI: 23.0 Code: 85723-3 Heart Rate 1: 84 bpm Height: 5'4" Respiratory Rate: 20 bpm Temperature: 36 .9 (C) / 98.4 (F) Weight: 134 lbs 09/26/2012 Blood Pressure 1: 114/76 Code: 8480-6 BMI: 23.0 Code: 78248-6 Heart Rate 1: 84 bpm Height: 5'4" Respiratory Rate: 20 bpm Temperature: 37 .3 (C) / 99.1 (F) Weight: 134 lbs 07/11/2012 Blood Pressure 1: 126/78 Code: 8480-6 BMI: 23.7 Code: 20861-6 Heart Rate 1: 76 bpm Height: 5'4" Respiratory Rate: 20 bpm Temperature: 37 .1 (C) / 98.7 (F) Weight: 138 lbs 02/02/2012 Blood Pressure 1: 108/70 Code: 8480-6 BMI: 23.2 Code: 59782-4 Heart Rate 1: 88 bpm Height: 5'4" Respiratory Rate: 20 bpm Temperature: 36 .4 (C) / 97.6 (F) Weight: 135 lbs 08/17/2011 Blood Pressure 1: 108/70 Code: 8480-6 BMI: 23.2 Code: 96514-1 Heart Rate 1: 72 bpm Height: 5'4" Respiratory Rate: 20 bpm Temperature: 36 .8 (C) / 98.2 (F) Weight: 135 lbs 10/14/2010 Blood Pressure 1: 120/72 Code: 8480-6 BMI: 23.4 Code: 58962-9 Heart Rate 1: 78 bpm Height: 5'3" Temperature: 36.9 (C) / 98.5 (F) Weight: 132 lbs Functional Status No Functional Status data Reason For Visit Reason For Visit Effective Dates Notes follow up 01/16/2019 ~generic 09/18/2018 Patient needs [...] Codes Date () OFFICE/OUTPATIENT VISIT EST Diagnosis: Small bowel obstruction[ICD10: K56.609] Diagnosis: FLU VACCINE[ICD10: Z23] Diagnosis: PNEUMOCOCCAL VACCINE[ICD10: Z23] Diagnosis: Onychomycosis[ICD10: B35.1] Alexandra FORDE SAri Wise [facility] Donews CPT-4: 87611 01/16/2019 ([id number]) OFFICE/OUTPATIENT VISIT EST Diagnosis: Diarrhea, unspecified[ICD10: R19.7] Diagnosis: Radiculopathy, lumbosacral region[ICD10: M54.17] Alexandra OFRDE [place] [employer] [facility] CPT-4: 60740 09/18/2018 OFFICE/OUTPATIENT VISIT EST Diagnosis: Other intervertebral disc degeneration, lumbar region[ICD10: M51.36] Diagnosis: Sacroiliitis, not elsewhere classified[ICD10: M46.1] Diagnosis: Obstructive sleep apnea (adult) (pediatric)[ICD10: G47.33] Alexandra FORDE [place] [employer] [employer] CPT-4: 03924 08/10/2018 ([id number]) OFFICE/OUTPATIENT VISIT EST Diagnosis: Fracture of unspecified part of left clavicle, subsequent encounter for fracture with routine healing[ICD10: S42.002D] Diagnosis: Cervicalgia[ICD10: M54.2] Diagnosis: Radiculopathy, lumbosacral region[ICD10: M54.17] Alexandra CARROLL DO [facility] CPT-4: 20524 03/27/2018 ([id number]) OFFICE/OUTPATIENT VISIT EST Diagnosis: Fracture of unspecified part of left clavicle, subsequent encounter for fracture with routine healing[ICD10: S42.002D] Diagnosis: Other intervertebral disc degeneration, lumbar region[ICD10: M51.36] Diagnosis: Unspecified fracture of first thoracic vertebra, subsequent encounter for fracture with routine healing[ICD10: S22.019D] Diagnosis: Unspecified fracture of second thoracic vertebra, subsequent encounter for fracture with routine healing[ICD10: S22.029D] Alexandra CARROLL [employer] [facility] CPT-4: 71755 02/23/2018 ([id number]) OFFICE/OUTPATIENT VISIT EST Diagnosis: Fracture of unspecified part of left clavicle, subsequent encounter for fracture with routine healing[ICD10: S42.002D] Diagnosis: Unspecified fracture of first thoracic vertebra, subsequent encounter for fracture with routine healing[ICD10: S22.019D] Diagnosis: Unspecified fracture of second thoracic vertebra, subsequent encounter for fracture with routine healing[ICD10: S22.029D] Alexandra CARROLL [employer] [facility] CPT-4: 21417 01/24/2018 ([id number]) OFFICE/OUTPATIENT VISIT EST Diagnosis: Migraine, unspecified, not intractable, without status migrainosus[ICD10: G43.909] Alexandra CARROLL [employer] [facility] CPT - 4: 94919 01/17/2018 ([id number]) OFFICE/OUTPATIENT VISIT EST Diagnosis: Hematuria, unspecified[ICD10: R31.9] Diagnosis: Other intervertebral disc degeneration, lumbar region[ICD10: M51.36] Diagnosis: Retention of urine, unspecified[ICD10: R33.9] Alexandrateja CARROLL [facility] CPT-4: 96720 12/29/2017 OFFICE/OUTPATIENT VISIT EST Diagnosis: Fracture of [...] Diagnosis: Low back pain[ICD10: M54.5] Alexandra KUNZ [facility] CPT-4: 46033 12/06/2017 ([id number]) OFFICE/OUTPATIENT VISIT EST Diagnosis: Cellulitis of right upper limb[ICD10: L03.113] Diagnosis: Allergy status to other antibiotic agents status[ICD10: Z88.1] Vandana CARROLL [facility] CPT-4: 93800 12/01/2017 ([id number]) OFFICE/OUTPATIENT VISIT EST Diagnosis: Cellulitis of right upper limb[ICD10: L03.113] Diagnosis: Allergy status to other antibiotic agents status[ICD10: Z88.1] Vandana CARROLL [facility] CPT-4: 37697 11/30/2017 ([id number]) OFFICE/OUTPATIENT VISIT EST Diagnosis: Cellulitis of right upper limb[ICD10: L03.113] Vandana CARROLL [facility] CPT-4: 87724 11/29/2017 ([id number]) OFFICE/OUTPATIENT VISIT EST Diagnosis: Cellulitis of right upper limb[ICD10: L03.113] Vandana CARROLL [facility] CPT-4: 00243 11/28/2017 ([id number]) OFFICE/OUTPATIENT VISIT EST Diagnosis: Other intervertebral disc degeneration, lumbar region[ICD10: M51.36] Diagnosis: Other retention of urine[ICD10: R33.8] Diagnosis: Primary insomnia[ICD10: F51.01] Diagnosis: Other spondylosis, site unspecified[ICD10: M47.899] [facility] 86816 11/17/2017 ([id number]) OFFICE/OUTPATIENT VISIT EST Diagnosis: Radiculopathy, lumbosacral region[ICD10: M54.17] Diagnosis: Other retention of urine[ICD10: R33.8] Diagnosis: Urinary tract infection, site not specified[ICD10: N39.0] Vandana CARROLL DO [employer] CPT-4: 16085 10/10/2017 ([id number]) PREV VISIT EST AGE 40-64 Diagnosis: Encounter for general adult medical examination without abnormal findings[ICD10: Z00.00] Diagnosis: Other intervertebral disc degeneration, lumbar region[ICD10: M51.36] Diagnosis: Hypothyroidism, unspecified[ICD10: E03.9] Diagnosis: Mixed hyperlipidemia[ICD10: E78.2] Alexandra QUINTERO [employer] [facility] CPT-4: 96381 06/22/2017 ([id number]) OFFICE/OUTPATIENT VISIT EST Diagnosis: URI, ACUTE[ICD10: J06.9] Alexandra FORDE [employer] GIULIA [facility] CPT-4: 01481 03/28/2017 OFFICE/OUTPATIENT VISIT EST Diagnosis: Acute sinusitis, unspecified[ICD10: J01.90] Vandana CavazosAri [facility] CPT-4: 05419 02/16/2017 ([id number]) OFFICE/OUTPATIENT VISIT EST Diagnosis: Migraine, unspecified, not intractable, without status migrainosus[ICD10: G43.909] Alexandra FORDE [employer] [facility] CPT - 4: 05062 11/02/2016 ([id number]) OFFICE/OUTPATIENT VISIT EST Diagnosis: Pain in thoracic spine[ICD10: M54.6] Diagnosis: Chondrocostal junction syndrome [Tietze][ICD10: M94.0] Alexandra FORDE [employer] [facility] CPT-4: 32630 09/06/2016 OFFICE/OUTPATIENT VISIT EST Diagnosis: Acute sinusitis, unspecified[ICD10: J01.90] Vidya FORDE [facility] CPT-4: 48879 08/16/2016 ([id number]) OFFICE/OUTPATIENT VISIT EST Diagnosis: Primary insomnia[ICD10: F51.01] Diagnosis: Cramp and spasm[ICD10: R25.2] Diagnosis: Major depressive disorder, single episode, mild[ICD10: F32.0] Alexandra CARROLL [facility] CPT-4: 83413 07/19/2016 ([id number]) OFFICE/OUTPATIENT VISIT EST Diagnosis: Obstructive sleep apnea (adult) (pediatric)[ICD10: G47.33] Diagnosis: Other fatigue[ICD10: R53.83] Diagnosis: Allergic rhinitis due to pollen[ICD10: J30.1] Diagnosis: Headache[ICD10: R51] Alexandra CARROLL [employer] CPT-4: 29664 07/06/2016 ([id number]) OFFICE/OUTPATIENT VISIT EST Diagnosis: Acute recurrent sinusitis, unspecified[ICD10: J01.91] Diagnosis: Allergic rhinitis due to pollen[ICD10: J30.1] Alexandra CARROLL [facility] CPT-4: 02300 06/15/2016 ([id number]) OFFICE/OUTPATIENT VISIT EST Diagnosis: Migraine, unspecified, not intractable, without status migrainosus[ICD10: G43.909] Diagnosis: Allergic rhinitis, unspecified[ICD10: J30.9] Nae CARROLL [facility] CPT-4: 03069 04/09/2016 ([id number]) OFFICE/OUTPATIENT VISIT EST Diagnosis: Hypothyroidism, unspecified[ICD10: E03.9] Diagnosis: Other fatigue[ICD10: R53.83] Diagnosis: Mixed hyperlipidemia[ICD10: E78.2] Diagnosis: Major depressive disorder, single episode, mild[ICD10: F32.0] Alexandra CARROLL [facility] CPT-4: 55240 03/17/2016 ([id number]) OFFICE/OUTPATIENT VISIT EST Diagnosis: Insomnia, unspecified[ICD10: G47.00] Diagnosis: Encounter for therapeutic drug level monitoring[ICD10: Z51.81] Nae CARROLL [employer] CPT-4: 19887 11/13/2015 ([id number]) OFFICE/OUTPATIENT VISIT EST Diagnosis: Hematuria, unspecified[ICD10: R31.9] Alexandra CARROLL DO [facility] CPT-4: 81235 05/05/2015 ([id number]) OFFICE/OUTPATIENT VISIT EST Diagnosis: Other intervertebral disc degeneration, lumbar region[ICD10: M51.36] Diagnosis: Radiculopathy, lumbosacral region[ICD10: M54.17] Alexandra CARROLL DO [facility] CPT-4: 74562 04/22/2015 ([id number]) OFFICE/OUTPATIENT VISIT EST Diagnosis: Low back pain[ICD10: M54.5] Diagnosis: Recurrent and persistent hematuria with unspecified morphologic changes[ICD10: N02.9] Alexandra CARROLL DO [facility] CPT-4: 33222 03/24/2015 ([id number]) OFFICE/OUTPATIENT VISIT EST Diagnosis: Acute sinusitis, unspecified[ICD10: J01.90] Diagnosis: Headache[ICD10: R51] Diagnosis: Retention of urine, unspecified[ICD10: R33.9] Diagnosis: Hypothyroidism, unspecified[ICD10: E03.9] Alexandra CARROLL DO [facility] CPT-4: 50989 02/27/2015 ([id number]) PREV VISIT EST AGE 40-64 Diagnosis: ROUTINE MEDICAL EXAM[ICD9: V70.0] Diagnosis: HYPOTHYROIDISM[ICD9: 244.9] Diagnosis: HYPERLIPIDEMIA NEC/NOS[ICD9: 272.4] Alexandra CARROLL DO [facility] CPT-4: 27105 06/13/2014 ([id number]) OFFICE/OUTPATIENT VISIT EST Diagnosis: CEPHALGIA[ICD9: 784.0] Diagnosis: Nausea[ICD9: 787.02] Shalini VanBecelaere ALEXANDRA CARROLL DO [facility] CPT-4: 87268 04/18/2014 ([id number]) OFFICE/OUTPATIENT VISIT EST Diagnosis: INSOMNIA NOS[ICD9: 780.52] Diagnosis: Complicated grieving[ICD9: 309.0] Alexandra Orelawandavioletta MARINPAMLORI CARROLL [facility] CPT-4: 38003 12/05/2013 ([id number]) OFFICE/OUTPATIENT VISIT EST Diagnosis: Muscle twitch[ICD9: 781.0] Diagnosis: ALLERGIC RHINITIS[ICD9: 477.9] Alexandra CARROLL DO [facility] CPT-4: 39288 06/05/2013 ([id number]) OFFICE/OUTPATIENT VISIT EST Diagnosis: DEPRESSIVE DISORDER NEC[ICD9: 311] Alexandra VELANDVIOLETTA SALGUERO [facility] CPT-4: 79065 05/22/2013 OFFICE/OUTPATIENT VISIT EST Diagnosis: Shingles[ICD9: 053.9] Alexandra CARROLL DO [facility] CPT-4: 14707 04/05/2013 ([id number]) OFFICE/OUTPATIENT VISIT EST Diagnosis: DEPRESSIVE DISORDER NEC[ICD9: 311] Alexandra QUINTERO SAri CARROLL DO [facility] CPT-4: 54158 03/26/2013 ([id number]) OFFICE/OUTPATIENT VISIT EST Diagnosis: Complicated grieving[ICD9: 309.0] Alexandra CARROLL [facility] CPT-4: 22656 03/06/2013 ([id number]) OFFICE/OUTPATIENT VISIT EST Diagnosis: CEPHALGIA, TENSION[ICD9: 307.81] Diagnosis: MIGRAINE NOS/NOT INTRCBL[ICD9: 346.90] Diagnosis: Cervicalgia[ICD9: 723.1] Alexandra PAREKH [facility] CPT-4: 78008 11/29/2012 ([id number]) OFFICE/OUTPATIENT VISIT EST Diagnosis: Jaw pain[ICD9: 784.92] Diagnosis: Shoulder pain[ICD9: 719.41] Diagnosis: Family history of premature coronary artery disease[ICD9: V17.3] Alexandra CARROLL DO [facility] CPT-4: 05833 09/26/2012 ([id number]) OFFICE/OUTPATIENT VISIT EST Diagnosis: ABDOMINAL PAIN[ICD9: 789.00] Diagnosis: Constipation[ICD9: 564.00] Diagnosis: Hematuria[ICD9: 599.70] Alexandra VELAND VIOLETTA [facility] CPT-4: 17884 07/11/2012 ([id number]) OFFICE/OUTPATIENT VISIT EST Diagnosis: ANEMIA NOS[ICD9: 285.9] Alexandra VELAND ER DO [facility] CPT-4: 54735 02/17/2012 ([id number]) PREV VISIT EST AGE 40-64 Diagnosis: ROUTINE MEDICAL EXAM[ICD9: V70.0] Diagnosis: HYPOTHYROIDISM[ICD9: 244.9] Diagnosis: HYPERLIPIDEMIA NEC/NOS[ICD9: 272.4] Diagnosis: Obstructive sleep apnea[ICD9: 327.23] Alexandra Burlesonvioletta ISLAS SAri VELANDER DO [facility] CPT-4: 11612 02/02/2012 ([id number]) OFFICE/OUTPATIENT VISIT EST Diagnosis: URINARY TRACT INFECTION[ICD9: 599.0] Alexandra VELANDER DO [facility] CPT-4: 52527 08/27/2011 ([id number]) OFFICE/OUTPATIENT VISIT EST Diagnosis: URINARY TRACT INFECTION[ICD9: 599.0] Diagnosis: ACUTE CYSTITIS[ICD9: 595.0] Alexandrateja Burlesonvioletta MARINALEXANDRA S. O RENDER DO [facility] CPT-4: 31709 08/17/2011 OFFICE/OUTPATIENT VISIT EST Diagnosis: URINARY TRACT INFECTION[ICD9: 599.0] Steph Andrés EDMUND LOZANO S. ORENDER DO [facility] CPT-4: 91569 10/14/2010 Plan of Care Planned Activity Notes Codes Status Date Visit Diagnosis Plan: Onychomycosis Discussion: Send n ail for culture ICD-9 : 110.1 ICD-10 : B35.1 01/16/2019 Visit Diagnosis Plan: Small bowel obstruction Discussi on: S/P surgery in September with postop complications of wound dehiscence ICD-9 : 560.9 ICD-10 : K56.609 01/16/2019 Appointment: Alexandra Carroll WPtel: [address] [place], [place] [id number] [place] MEDICATION REVIEW 01/16/2019 Appointment: Alexandra Carroll WPtel: [address] [place], [place] [id number] [place] CANCELED 12/12/2018 Visit Diagnosis Plan: Diarrhea, unspecified Discussion : Due for updated colonoscopy ICD-9 : 787.91 ICD-10 : R19.7 09/18/2018 Visit Diagnosis Plan: Radiculopathy, lumbosacral regio n Discussion: Had left SI joint injection by Dr. Baig about 2 weeks ago and has fwup with him ICD-9 : 724.4 ICD-10 : M54.17 09/18/2018 Appointment: Alexandra Carroll WPtel: [phone] [facility] US PATIENT CONSULT 15 09/18/2018 Care Plan: Referral Order SNOMED-CT : 30 [id number] Pending 09/18/2018 Visit Diagnosis Plan: Other intervertebral [...] : M46.1 08/10/2018 Appointment: Alexandra Carroll WPtel: [phone] [facility] US MEDICATION REVIEW 08/10/2018 Care Plan: Referral Order SNOMED-CT : 30 [id number] Pending 08/10/2018 Appointment: Alexandra Carroll WPtel: [phone] [facility] US CANCELED 04/17/2018 Visit Diagnosis Plan: Fracture [...] Visit Diagnosis Plan: Cervicalgia Discussion: Daily st denys Has finished PT and seeing chiropracter ICD-9 : 723.1 ICD-10 : M54.2 03/27/2018 Appointment: Alexandra Carrolltel: [address] [place], [place] [phone] [place] FOLLOW UP 03/27/2018 Visit Diagnosis Plan: [...] : S42.002D 02/23/2018 Appointment: Alexandra Carroll WPtel: [address] [place], [place] [phone] [place] FOLLOW UP 02/23/2018 Patient Education: gabapentin- [employer] Coupon [phone] [email or web address] Completed 02/23/2018 Visit Diagnosis Plan: Fracture of unspec ified part of left clavicle, subsequent encounter for fracture with routine healing Discussion: Hold on PT and do home stretches Trial of gabapentin Recheck 4 weeks ICD-9 : V54.11 ICD-10 : S42.002D 01/24/2018 Appointment: Alexandra Carrolltel: [address] [place], [place] [phone] [place] FOLLOW UP 01/24/2018 Visit Diagnosis Plan: Migraine, unspecif ied, not intractable, without status migrainosus Discussion: Toradol and phenergan given ICD-9 : 346.90 ICD-10 : G43.909 01/17/2018 Appointment: Alexandra Carroll: [phone] [facility] ACUTE ILLNESS 01/17/2018 Visit Diagnosis Plan: Retention [...] M51.36 12/29/2017 Appointment: Alexandra Carroll WPtel: [phone] [facility] US ACUTE ILLNESS 12/29/2017 Care Plan: US EXAM PELVIC COMPLETE LOINC : 06898-8 Pending 12/29/2017 Care Plan: ECHO EXAM OF ABDOMEN LOINC : 91015-8 Pending 12/29/2017 Care Plan: Referral Order SNOMED-CT : 30 [id number] Pending 12/29/2017 Visit Diagnosis Plan: Fracture of unspec ified part of left clavicle, subsequent encounter for fracture with routine healing Discussion: Start PT in another 7-14 days Off work for the rest of this week then may return to part-time work on 12/12/17 Fwup in 4 weeks ICD-9 : V54.11 ICD-10 : S42.002D 12/06/2017 App[facility]ment: [phone] [facility] 12/06/2017 Patient Education: Patient [...] : Z88.1 12/01/2017 Appointment: Vandana Crowe [address] [facility] FOLLOW UP 12/01/2017 Patient Education: Patient [...] : Z88.1 11/30/2017 Appointment: Vandana Crowe [address] [facility] 11/30/2017 Patient Education: Patient Medication Summary [...] : L03.113 11/29/2017 Appointment: Vandana Crowe [address] [facility] FOLLOW UP 11/29/2017 Patient Education: Patient [...] ICD-10 : L03.113 11/28/2017 Appointment: Vandana Crowe [address] [place], [place] [phone] ACUTE ILLNESS 11/28/2017 Patient Education: Patient Medication [...] M47.899 11/17/2017 Appointment: Alexandra Carroll WPtel: [phone] [facility] MEDICATION REVIEW 11/17/2017 Patient Education: Patient Medication Summary Completed 11/17/2017 Care Plan: Referral Order SNOMED-CT : 30 [id number] Pending 11/17/2017 Patient Education: Patient Medication Summary Completed 10/12/2017 Care Plan: MRI LUMBAR SPINE W/O DYE LOIN C : 25188-4 Pending 10/12/2017 Care Plan: X-RAY EXAM L-S SPINE 2/3 VWS LOINC : 47080-3 Pending 10/11/2017 Visit Diagnosis Plan: Urinary tract [...] med[facility] [...] ICD-10 : R33.8 10/10/2017 Appointment: Vandana Crowe [address] [place], [place] [phone] ACUTE ILLNESS 10/10/2017 Patient Education: Patient Medication Summary Completed 10/10/2017 Appointment: Vandana Crowe [address] [place], [place] [phone] ACUTE ILLNESS 08/01/2017 Visit Diagnosis Plan: Other [...] : Z00.00 06/22/2017 Appointment: Alexandra Carroll WPtel: [address] [place] [address] Annual Well Visit 06/22/2017 Patient Education: Patient Medication Summary Completed 06/22/2017 Patient Education: Patient Medication Summary Completed 06/16/2017 Care Plan: COMPREH[place] METAB[place] : 34382-3 Pending 06/16/2017 Care Plan: ASSAY THYROID STIM HORMONE Pen ding 06/16/2017 Care Plan: ASSAY OF FREE THYROXINE Pendin g 06/16/2017 Care Plan: LIPID PANEL LOINC : 60538-3 Pending 06/16/2017 Care Plan: CBC Pending 06/16/2017 [...] Rest, Fluids... 03/28/2017 Appointment: Alexandra Carroll WPtel: [address] [place] [address] ACUTE ILLNESS 03/28/2017 Patient Education: Patient Medication Summary Completed 03/28/2017 Visit Diagnosis Plan: Acute sinusitis, unspecified Dis cussion: cefdinir and medrol dose pack prescribed to be taken as directed. tylenol/ibuprofen as needed. educated on importance of taking singulair or zyrtec daily to prevent worsening symptoms. keep hydrated. ICD-9 : 461.9 ICD-10 : J01.90 02/16/2017 Appointment: Vandana Crowe [address] [place] [address] ACUTE ILLNESS 02/16/2017 Patient Education: Patient Medication Summary Completed 02/16/2017 Appointment: Alexandra Carroll WPtel: [address] [place] [address] US INJECTION 11/02/2016 Patient Education: Patient Medication Summary Completed 11/02/2016 Visit Diagnosis Plan: Pain in thoracic spine Discussio n: Increase flexeril to 10mg po BID Add Mobic 15mg po daily Towel stretch May see chiropractor to adjust ribs Notify if persists or worsening ICD-9 : 724.1 ICD-10 : M54.6 09/06/2016 Appointment: Alexandra Carroll WPtel: [phone] ACUTE ILLNESS 09/06/2016 Patient Education: Patient Medication Summary Completed 09/06/2016 Visit Plan: Due to hx, ERx Cefdinir and Prednisone (discussed risks for both) Given bottle for nasal saline rinses Tylenol/Ibuprofen prn pain/fever Fluids/rest Discussed s/s of worsening, RTC if no improvement 08/16/2016 Appointment: Vidya Manuel WPtel: [facility] ACUTE ILLNESS 08/16/2016 Patient Education: Patient [...] : F32.0 07/19/2016 Appointment: Alexandra Carroll WPtel: [facility] [address] 07/15 confirmed`sl FOLLOW UP 07/19/2016 Patient Education: [...] : J30.1 07/06/2016 Appointment: Alexandra Carroll WPtel: [address] [place] [address] 07/05 confirmed-sp FOLLOW UP 07/06/2016 Patient Education: [...] : J01.91 06/15/2016 Appointment: Alexandra Carroll WPtel: [address] [place] [address] 06/14 lm ~sl ACUTE ILLNESS 06/15/2016 Patient Education: Patient Medication Summary Completed 06/15/2016 Visit Diagnosis Plan: Migraine, unspecif ied, not intractable, without status migrainosus Discussion: Injection as above Drink ple nty of water No driving x 6 hours Rest No OTC nsaids today Follow up PRN Refill called of claritin-d ICD-9 : 346.90 ICD-10 : G43.909 04/09/2016 Appointment: Nae Mckay [address] [place] [address] ACUTE ILLNESS 04/09/2016 Patient Education: Patient Medication [...] : R53.83 03/17/2016 Appointment: Alexandra Carroll WPtel: [address] [place], [place] [id number] 03/16 nvm~sl 03/17 confirmed`sl FOLLOW UP 0 03/17/2016 Patient Education: Patient Medication Summary Completed 03/17/2016 Appointment: Alexandra Carroll WPtel: [address] [place], [place] [id number] [place] 03/11 lm~sl 03/15lm `sl 03/15 confirmed`sl [...] same robert. If working well, continue the a1sypqx office visits. Call if not working well, and will restart xanax at for sleep. 11/13/2015 App[facility]ment: [id number] 11/11 confirmed~sl FOLLOW UP 11/13/2015 Patient Education: Patient Medication Summary Completed 11/13/2015 Appointment: [id number] S[facility] Removal 06/23/2015 Patient Education: Patient Medication Summary Completed 06/23/2015 Visit Plan: Removal of lesion above usin g 3-0 punch biopsy Return in 10 days for suture removal 06/12/2015 Appointment: Alexandra Carroll WPtel: [address] [place], [place] [phone] 06/10 lm ~sl ACUTE ILLNESS 06/12/2015 Patient Education: Patient Medication Summary Completed 06/12/2015 Referral: Soy Garcia WPtel: [address] [id number] [place] Schedule patient around lunch time and 3 weeks from 04/22/2015 ~sl Spoke with Kiesha at Dr[facility] Sandoval [facility] and 04/24/15 and scheduled the patient ~sl 04/24/15 Patient is informed~sl 06/03 Patient canceled the appointment ~ Patient did not show up for scheduled appointment-sp Appoint ment Requested 05/21/2015 Appointment: Alexandra Carroll WPtel: [address] [place] [address] UA 05/05/2015 Patient Education: Patient Medication Summary Completed 05/05/2015 Visit Plan: Starts PT today Schedule wit h Dr. Garcia for epidural CT abdomen/pelvis results discussed Sees SYSTEMS DESIGN ENGINEER in April and will get checked then 04/22/2015 Appointment: Alexandra Carroll WPtel: [address] [place] [address] 04/21 confirmed~lb ACUTE ILLNESS 04/22/2015 Patient Education: Patient Medication Summary Completed 04/22/2015 Referral: Lincoln Hernandez WPtel: [address] [place] [address] Referral Initiated 04/10/2015 Patient Education: Patient Medication Summary Completed 04/09/2015 Visit Plan: Start with lumosacral spine x-ray--will likely need MRI of L/S spine x-ray Needs urology--has had to have bladder stretched in past Tivorbex 03/24/2015 Appointment: Alexandra Carroll WPtel: [address] [place], [place] [phone] 03/21/15 appt confirmed cn ACUTE ILLNESS 03/24 Patient Education: Patient Medication Summary Completed 03/24/2015 Visit Plan: Saline nasal flushes prn. Ty lenol/Motrin prn headache. Notify if persists/symptoms worsening. Cefuroxime to cover both sinuses and UTI Culture urine Check lab 02/27/2015 Appointment: Alexandra Carroll WPtel: [address] [place], [place] [phone] 02/26/15 vm to confirm and need new insu meri on file is inactive cn....02/27/15 appt confirmed cn ACUTE ILLNESS 015 Patient Education: Patient Medication Summary Completed 02/27/2015 Visit Plan: Lab discussed Stop simvastat in Check lipids in 6mos Continue all other meds at current dose Had Pap and Mammo 3 weeks ago 06/13/2014 Appointment: Alexandra Carroll WPtel: [address] [place] [address] Annual Well Visit 06/13/2014 Patient Education: Patient Medication Summary Completed 06/13/2014 Appointment: Shalini Walters WPtel: [address] [place] [address] ACUTE ILLNESS 04/18/2014 Patient Education: Patient Medication Summary Completed 04/18/2014 Visit Plan: Check lab in May then fwup Can try decreasing xanax to 1mg q HS with melatonin 5-10mg q HS 12/05/2013 Appointment: Alexandra Carroll WPtel: [address] [place], [place] [id number] 12/04 FOLLOW UP 12/05/2013 Patient Education: Patient Medication Summary Completed 12/05/2013 Appointment: Alexandra Carroll WPtel: [address] [place], [place] [phone] [place] FOLLOW UP 06/05/2013 Patient Education: Patient Medication Summary Completed 06/05/2013 Appointment: Alexandra Carroll WPtel: [address] [place], [place] [phone] FOLLOW UP 05/22/2013 Patient Education: Patient Medication Summary Completed 05/22/2013 Visit Plan: Zovirax for 2wks Notify if p ain worsens or if persists 04/05/2013 Appointment: Alexandra Carroll WPtel: [address] [place] [address] ACUTE ILLNESS 04/05/2013 Patient Education: Patient Medication Summary Completed 04/05/2013 Visit Plan: Keep Wellbutrin at current d ose Pt did see grocery specialist for counseling 03/26/2013 Appointment: Alexandra Carroll WPtel: [address] [place] [address] ACUTE ILLNESS 03/26/2013 Patient Education: Patient Medication Summary Completed 03/26/2013 Visit Plan: Continue citalopram at curre nt dose Increase xanax to 1-2mg q HS for sleep Add Wellbutrin Sr 100mg q AM Start Counseling 03/06/2013 Appointment: Alexandra Carroll WPtel: [address] [place] [address] ACUTE ILLNESS 03/06/2013 Patient Education: Patient Medication Summary Completed 03/06/2013 Appointment: Alexandra Carroll WPtel: [address] [place] [address] ACUTE ILLNESS 11/29/2012 Patient Education: Patient Medication Summary Completed 11/29/2012 Appointment: Alexandra Carroll WPtel: [address] [place] [address] ACUTE ILLNESS 09/26/2012 Patient Education: Patient Medication Summary Completed 09/26/2012 Appointment: Alexandra Carroll WPtel: [address] [place] [address] ACUTE ILLNESS 07/11/2012 Patient Education: Patient Medication Summary Completed 07/11/2012 Appointment: Alexandra Carroll WPtel: [address] [place] [address] [place] LAB 02/17/2012 Patient Education: Patient Medication Summary Completed 02/17/2012 Visit Plan: Check fasting lab Start annie y ca with Vit D Cont CPAP Mammo up-to-date Hemoccult card given 02/02/2012 Appointment: Alexandra Carroll WPtel: [address] [place], [place] [phone] PHYSICAL 02/02/2012 Patient Education: Patient Medication Summary Completed 02/02/2012 Appointment: Alexandra Carroll WPtel: [address] [place], [place] [id number] UA 08/27/2011 Patient Education: Patient Medication Summary Completed 08/27/2011 Visit Plan: Levaquin and Diflucan for 1w k Then cipro QOD for prophylaxis 08/17/2011 Appointment: Alexandra Carroll WPtel: [address] [place] [address] FOLLOW UP 08/17/2011 Patient Education: Patient Medication Summary Completed 08/17/2011 Appointment: Alexandra Carroll WPtel: [address] [place] [address] UA 12/28/2010 Patient Education: Patient Medication Summary Completed 12/28/2010 Appointment: Alexandra Carroll WPtel: [address] [place] [address] UA 11/09/2010 Patient Education: Patient Medication Summary Completed 11/09/2010 Appointment: Alexandra Carroll WPtel: [address] [place] [address] 10/29/2010 Patient Education: Patient Medication Summary Completed 10/29/2010 Appointment: Steph Bowen WPtel: [address] [place], [place] [phone] ACUTE ILLNESS 10/14/2010 Patient Education: Patient Medication Summary Completed 10/14/2010 Referral: Florian Baig WPtel: [facility] [address], [facility] 1 [id number] Referral Initiated Referral: Luis Enrique Jasso WPtel: [facility] [address] 1 [id number] [place] Referral Appointment Requested Referral: Florian Baig Unique WPtel: [facility] [address] Referral Appointment Requested Referral: Caleb Glaser WPtel: [address] [id number] [place] Referral Appointment Requested Referral: LaurenfernandoFlorian Unique WPtel: [facility] [address] Referral Initiated Referral: KimnakulFlorian Unique WPtel: [facility] [place] [phone] Referral Appointment Requested Instructions Comment . Supportive [...] same robert. If working well, continue the o1ggoni office visits. Call if not working well, and will restart xanax at for sleep. . Removal of lesion above using 3-0 punc h biopsy Return in 10 days for suture removal . Starts PT today Schedule with Dr. Garcia for epidural CT abdomen/pelvis results discussed Sees SYSTEMS DESIGN ENGINEER in April and will get checked then [...]
--- OUTSIDE RECORDS SUMMARY | 2019-09-02 00:35 | XMS REPORT | CCD ---
Author Author Ilda Bowen APRN Organization [facility] Address [address] [place] [address] Phone Care Team Providers Care Insulation Foreman Name Role Phone Alexandra Carroll D.O., PP Unavailable CCM Unavailable Summary Purpose Interface Exchange Insurance Providers Payer name Policy type / Coverage type Covered constitution party ID Effective Begin Date Effective End Date [facility] [employer] Insurance [id number] 2017 Un known Family History Family History data not found Social History Social History Element Codes Description Effective Dates Tobacco history SNOMED CT: 886353669 Nonsmoker 10/14/2010 Allergies, Adverse Reactions, Alerts Substance Reaction Codes Entered Date Inactivated Date Status MORPHINE SULFATE RxNorm: 9340986 10/14/2010 No Inactive Da te Active CEPHALOSPORINS [...] Fill Instructions Xanax 1 mg tablet RxNorm: 601664 1-2 Tablet(s) Oral e very night at bedtime as needed for sleep 02/09/2019 03/10/2019 Active Generic For:LAVELLE AX 1MG 10/11/2016 11:15:13 AM Xanax 1 mg tablet RxNorm: 607583 1-2 Tablet(s) Oral e very night at bedtime as needed for sleep 01/22/2019 02/08/2019 Inactive Generic For:LAVELLE AX 1MG 10/11/2016 11:15:13 AM Celexa 40 mg tablet RxNorm: 524504 1 Tablet(s) Oral QD 01/17/2019 Active - First Attempt Ref: [id number] Xanax 1 mg tablet RxNorm: 626124 1 Tablet(s) Oral every night a t bedtime 01/08/2019 01/21/2019 Inactive levothyroxine 88 mcg tablet RxNorm: 056083 TAKE 1 TABLET BY NINA TH DAILY 12/19/2018 06/16/2019 Active - First Attempt Ref: [id number] Xanax 1 mg tablet RxNorm: 241354 1 Tablet(s) Oral every night a t bedtime 12/06/2018 01/05/2019 Inactive Singulair 10 mg tablet RxNorm: 398115 1 Tablet(s) Oral every ni ght at bedtime 11/23/2018 11/17/2019 Active - First Attempt Ref: [id number] cyclobenzaprine 10 mg tablet RxNorm: 641831 1 Tablet(s) Oral three times a day as needed for muscle spasm 11/23/2018 No Stop Date Active Celexa 40 mg tablet RxNorm: 284727 1 Tablet(s) Oral 11/23/20182018 Inactive - First Attempt Ref: [id number] Xanax 1 mg tablet RxNorm: 441212 1 Tablet(s) PO QHS 11/06/20182018 Inactive Xanax 1 mg tablet RxNorm: 220864 1 Tablet(s) PO QHS 09/26/20182018 Inactive Singulair 10 mg tablet RxNorm: 003492 TAKE 1 TABLET BY MOUTH EVERY NIGHT AT BEDTIME 08/16/2018 11/22/2018 Inactive - First Attempt Ref: [id number] Xanax 1 mg tablet RxNorm: 826555 1 Tablet(s) PO QHS 08/01/20182018 Inactive levothyroxine 88 mcg tablet RxNorm: 714985 TAKE 1 TABLET BY NINA TH DAILY 07/31/2018 12/18/2018 Inactive - First Attempt Ref: [id number] Celexa 40 mg tablet RxNorm: 614503 TAKE 1 TABLET BY MOUTH DAILY 04/201811/22/2018 Inactive - First Attempt Ref: [id number] 54 bupropion HCl SR 100 mg tablet,12 hr sustained-release RxNor m: 474509 1 Tablet(s) PO BID 07/12/2018 07/06/2019 Active - Ref: [id number] 7 Claritin-D 24 Hour 10 mg-240 mg tablet,extended release RxNo rm: 5033494 1 Tablet(s) PO QD 06/29/2018 2018 Inactive Claritin-D 24 Hour 10 mg-240 mg tablet,extended release RxNo rm: 7952556 1 Tablet(s) PO QD 06/29/2018 2018 Inactive Xanax 1 mg tablet RxNorm: 385742 1-2 Tablet(s) PO QHS as needed for sleep 05/26/2018 06/23/2018 Inactive Generic For:XANAX 1M G 10/11/2016 11:15:13 AM Xanax 1 mg tablet RxNorm: 090629 1-2 Tablet(s) PO QHS as needed for sleep 03/28/2018 05/25/2018 Inactive Generic For:XANAX 1M G 10/11/2016 11:15:13 AM Macrobid 100 mg capsule RxNorm: 787247 1 Capsule(s) PO BID 03/27/1903/31/2018 Inactive gabapentin 300 mg capsule RxNorm: 567269 1 Capsule(s) PO QHS 201703/26/2018 Inactive Claritin-D 24 Hour 10 mg-240 mg tablet,extended release RxNo rm: 9451769 1 Tablet(s) PO QD 01/26/2018 02/24/2018 Inactive gabapentin 100 mg capsule RxNorm: 290954 1 Capsule(s) P O QHS for 1 week then 2 po q HS for 2 weeks then 3 po q HS 01/24/2018 03/26/2018 Inactive Xanax 1 mg tablet RxNorm: 091544 1-2 Tablet(s) PO QHS as needed for sleep 01/24/2018 03/24/2018 Inactive Generic For:XANAX 1M G 10/11/2016 11:15:13 AM prednisone 20 mg tablet RxNorm: 924778 1 Tablet(s) PO T ID for 3 days then 1 po BID for 3 days then one daily for 3 days 12/29/2017 03/26/2018 Inactiv e prednisone 20 mg tablet RxNorm: 200867 3 Tablet(s) PO T ID for 3 days then 1 po BID for 3 days then one daily for 3 days 12/29/2017 12/29/2017 Inactiv e Macrobid 100 mg capsule RxNorm: 611598 1 Capsule(s) PO BID 12/30/19 18 01/02/2018 Inactive Xanax 1 mg tablet RxNorm: 348446 1-2 Tablet(s) PO QHS as needed for sleep 12/28/2017 01/23/2018 Inactive Generic For:XANAX 1M G 10/11/2016 11:15:13 AM Medrol (Walter) 4 mg tablets in a dose pack RxNorm: 837200 Tablet(s) PO take as directed 12/01/2017 03/26/2018 Inactive Keflex 750 mg capsule RxNorm: 773875 1 Capsule(s) PO BID 12/01/2017 1 Inactive clindamycin HCl 300 mg capsule RxNorm: 863847 2 Capsule(s) PO TID 1 12/08/2017 Inactive Xanax 1 mg tablet RxNorm: 646132 1-2 Tablet(s) PO QHS as needed for sleep 11/28/2017 12/27/2017 Inactive Generic For:XANAX 1M G 10/11/2016 11:15:13 AM mupirocin 2 % topical ointment RxNorm: 841965 1 Application OTIC BI D 11/28/2017 08/09/2018 Inactive Xanax 1 mg tablet RxNorm: 337169 1-2 Tablet(s) PO QHS as needed for sleep 10/27/2017 11/25/2017 Inactive Generic For:XANAX 1M G 10/11/2016 11:15:13 AM Macrobid 100 mg capsule RxNorm: 770136 1 Capsule(s) PO BID 10/11/19 18 10/16/2017 Inactive Medrol (Walter) 4 mg tablets in a dose pack RxNorm: 093654 Tablet(s) PO take as directed 10/10/2017 11/16/2017 Inactive Xanax 1 mg tablet RxNorm: 656643 1-2 Tablet(s) PO QHS as needed for sleep 09/28/2017 10/26/2017 Inactive Generic For:XANAX 1M G 10/11/2016 11:15:13 AM Xanax 1 mg tablet RxNorm: 265702 1-2 Tablet(s) PO QHS as needed for sleep 08/30/2017 09/27/2017 Inactive Generic For:XANAX 1M G 10/11/2016 11:15:13 AM Xanax 1 mg tablet RxNorm: 192480 1-2 Tablet(s) PO QHS as needed for sleep 08/30/2017 08/29/2017 Inactive Generic For:XANAX 1M G 10/11/2016 11:15:13 AM Xanax 1 mg tablet RxNorm: 837589 1-2 Tablet(s) PO QHS as needed for sleep 08/01/2017 08/29/2017 Inactive Generic For:XANAX 1M G 10/11/2016 11:15:13 AM Xanax 1 mg tablet RxNorm: 475994 1-2 Tablet(s) PO QHS as needed for sleep 06/29/2017 2017 Inactive Generic For:XANAX 1M G 10/11/2016 11:15:13 AM Claritin-D 24 Hour 10 mg-240 mg tablet,extended release RxNo rm: 0512944 1 Tablet(s) PO QD 06/29/2017 2017 Inactive levothyroxine 88 mcg tablet RxNorm: 190799 1 Tablet(s) PO QD 201709/10/2017 Inactive Xanax 1 mg tablet RxNorm: 429061 1-2 Tablet(s) PO QHS as needed for sleep 05/26/2017 06/28/2017 Inactive Generic For:XANAX 1M G 10/11/2016 11:15:13 AM Claritin-D 24 Hour 10 mg-240 mg tablet,extended release RxNo rm: 6471639 1 Tablet(s) PO QD 05/26/2017 06/24/2017 Inactive bupropion HCl SR 100 mg tablet,12 hr sustained-release RxNor m: 189218 Tablet(s) Take 1 tablet by mouth two times daily 04/06/2017 12/31/2017 Inactive - Ref: [id number] Xanax 1 mg tablet RxNorm: 961851 1-2 Tablet(s) PO QHS as needed for sleep 03/24/2017 05/22/2017 Inactive Generic For:XANAX 1M G 10/11/2016 11:15:13 AM Medrol (Walter) 4 mg tablets in a dose pack RxNorm: 225338 Tablet(s) P O 02/16/2017 03/27/2017 Inactive Xanax 1 mg tablet RxNorm: 818328 Tablet(s) TAKE ONE T O TWO TABLETS BY MOUTH AT BEDTIME NEEDED 02/16/2017 03/17/2017 Inactive Generic For:XA NAX 1MG 10/11/2016 11:15:13 AM Claritin-D 24 Hour 10 mg-240 mg tablet,extended release RxNo rm: 8339682 1 Tablet(s) PO QD 02/16/2017 04/16/2017 Inactive cefdinir 300 mg capsule RxNorm: 359591 2 Capsule(s) PO QD 02/16/2017 02/25/2017 Inactive Celexa 40 mg tablet RxNorm: 712751 Tablet(s) Take 1 tablet by m outh daily 12/23/2016 09/18/2017 Inactive - Ref: [id number] Xanax 1 mg tablet RxNorm: 252020 Tablet(s) TAKE ONE T O TWO TABLETS BY MOUTH AT BEDTIME NEEDED 12/16/2016 01/14/2017 Inactive Generic For:XA NAX 1MG 10/11/2016 11:15:13 AM Xanax 1 mg tablet RxNorm: 164992 Tablet(s) TAKE ONE T O TWO TABLETS BY MOUTH AT BEDTIME NEEDED 11/18/2016 12/15/2016 Inactive Generic For:XA NAX 1MG 10/11/2016 11:15:13 AM Xanax 1 mg tablet RxNorm: 991830 TAKE ONE TO TWO TABL ETS BY MOUTH AT BEDTIME NEEDED 10/11/2016 11/17/2016 Inactive Generic For:XANA X 1MG 10/11/2016 11:15:13 AM Mobic 15 mg tablet RxNorm: 028847 1 Tablet(s) PO QD 09/06/20162016 Inactive Claritin-D 24 Hour 10 mg-240 mg tablet,extended release RxNo rm: 1482538 1 Tablet(s) PO QD 09/02/2016 11/30/2016 Inactive prednisone 20 mg tablet RxNorm: 608702 1 Tablet(s) PO T ID for 3 days then 1 po BID for 3 days then one daily for 3 days 08/16/2016 03/27/2017 Inactiv e cefdinir 300 mg capsule RxNorm: 229751 2 Capsule(s) PO QD 08/16/2016 09/05/2016 Inactive Xanax 1 mg tablet RxNorm: 343536 TAKE ONE TO TWO TABL ETS BY MOUTH AT BEDTIME NEEDED 08/05/2016 10/11/2016 Inactive Generic For:XANA X 1MG 08/05/2016 2:27:03 PM08/04/2016 4:15:22 PM Singulair 10 mg tablet RxNorm: 852412 1 Tablet(s) PO QHS 07/06/2016 0 09/03/2016 Inactive prednisone 20 mg tablet RxNorm: 831516 1 Tablet(s) PO T ID for 3 days then 1 po BID for 3 days then one daily for 3 days 06/15/2016 07/05/2016 Inactiv e Singulair 10 mg tablet RxNorm: 297944 1 Tablet(s) PO QHS 06/15/2016 0 07/05/2016 Inactive cefdinir 300 mg capsule RxNorm: 060820 2 Capsule(s) PO QD 06/15/2016 07/05/2016 Inactive Xanax 1 mg tablet RxNorm: 031084 1-2 Tablet(s) PO QHS 05/21/201610/2016 Inactive Claritin-D 24 Hour 10 mg-240 mg tablet,extended release RxNo rm: 8994162 1 Tablet(s) PO QD 04/09/2016 07/07/2016 Inactive Xanax 1 mg tablet RxNorm: 337182 1-2 Tablet(s) PO QHS 03/23/201604/29 Inactive levothyroxine 88 mcg tablet RxNorm: 876900 1 Tablet(s) PO QD 201606/13/2017 Inactive bupropion HCl SR 100 mg tablet,sustained-release RxNorm: 993 503 Take 1 tablet by mouth two times daily 03/15/2016 12/09/2016 Inactive - Ref: 20 [id number] Celexa 40 mg tablet RxNorm: 545382 Take 1 tablet by mouth daily 12/23/2016 Inactive - Ref: [id number] Xanax 1 mg tablet RxNorm: 557508 1-2 Tablet(s) PO QHS 02/17/201603/01 Inactive levothyroxine 88 mcg tablet RxNorm: 268958 1 Tablet(s) PO QD 201502/22/2016 Inactive Xanax 1 mg tablet RxNorm: 007475 1-2 Tablet(s) PO QHS 11/25/201511/29 Inactive levothyroxine 88 mcg tablet RxNorm: 948285 1 Tablet(s) PO QD 201511/24/2015 Inactive temazepam 30 mg capsule RxNorm: 340059 1 Capsule(s) PO QHS 11/13/19 16 11/24/2015 Inactive Xanax 1 mg tablet RxNorm: 120743 1-2 Tablet(s) PO QHS 09/15/201510/29 Inactive Celexa 40 mg tablet RxNorm: 933370 1 Tablet(s) PO QD 1 Tablet(s ) PO QD 09/10/2015 09/16/2015 Inactive bupropion HCl SR 100 mg tablet,sustained-release RxNorm: 993 503 1 Tablet(s) PO BID 09/10/2015 09/23/2015 Inactive Xanax 1 mg tablet RxNorm: 459137 1-2 Tablet(s) PO QHS 09/10/201508/28 Inactive Xanax 1 mg tablet RxNorm: 048449 1-2 Tablet(s) PO QHS 08/11/201508/28 Inactive cyclobenzaprine 10 mg tablet RxNorm: 534696 1 Tablet(s) PO TID prn spasm 07/09/2015 11/23/2018 Inactive Celexa 40 mg tablet RxNorm: 304006 1 Tablet(s) PO QD 06/06/201508/03 Inactive Xanax 1 mg tablet RxNorm: 061656 1-2 Tablet(s) PO QHS 06/04/201505/2015 Inactive levothyroxine 88 mcg tablet RxNorm: 199435 1 Tablet(s) PO QD 201511/23/2015 Inactive Ceftin 500 mg tablet RxNorm: 168197 1 Tablet(s) PO BID 05/05/2015 Inactive Ceftin 500 mg tablet RxNorm: 883513 1 Tablet(s) PO BID 05/05/201507/2015 Inactive meloxicam 15 mg tablet RxNorm: 635781 1 Tablet(s) PO QD 04/16/2015 Inactive meloxicam 15 mg tablet RxNorm: 301302 1 Tablet(s) PO QD 04/16/2015 Inactive diclofenac sodium 75 mg tablet,delayed release RxNorm: 00878 6 1 Tablet(s) PO BID 04/04/2015 04/15/2015 Inactive diclofenac sodium 75 mg tablet,delayed release RxNorm: 74222 6 1 Tablet(s) PO BID 04/04/2015 04/03/2015 Inactive Tivorbex 40 mg capsule RxNorm: 9262219 1 Capsule(s) PO TID 03/24/1904/02/2015 Inactive bupropion HCl SR 100 mg tablet,sustained-release RxNorm: 993 503 1 Tablet(s) PO BID 03/11/2015 09/06/2015 Inactive cyclobenzaprine 10 mg tablet RxNorm: 804157 1 Tablet(s) PO TID prn spasm 03/11/2015 07/08/2015 Inactive levothyroxine 88 mcg tablet RxNorm: 358442 1 Tablet(s) PO QD 201405/27/2015 Inactive Claritin-D 24 Hour 10 mg-240 mg tablet,extended release RxNo rm: 4067420 1 Tablet(s) PO QD 02/27/2015 05/27/2015 Inactive cefuroxime axetil 500 mg tablet RxNorm: 930627 1 Tablet(s) PO BID 1 03/12/2015 Inactive Celexa 40 mg tablet RxNorm: 007055 1 Tablet(s) PO QD 02/05/201504/05 Inactive levothyroxine 75 mcg tablet RxNorm: 718909 1 Tablet(s) PO QD 201402/26/2015 Inactive Celexa 40 mg tablet RxNorm: 744486 1 Tablet(s) PO QD 10/09/201402/04 Inactive Activella 1 mg-0.5 mg tablet RxNorm: 8017007 1 Tablet(s) PO QD 08/2802/26/2015 Inactive bupropion HCl SR 100 mg tablet,sustained-release RxNorm: 993 503 1 Tablet(s) PO BID 09/12/2014 03/10/2015 Inactive levothyroxine 75 mcg tablet RxNorm: 269864 1 Tablet(s) PO QD 201412/09/2014 Inactive levothyroxine 75 mcg tablet RxNorm: 123930 1 Tablet(s) PO QD 201409/11/2014 Inactive Celexa 40 mg tablet RxNorm: 775611 1 Tablet(s) PO QD 08/12/201410/08 Inactive Xanax 1 mg tablet RxNorm: 635314 1-2 Tablet(s) PO QHS 08/12/201409/28 Inactive Claritin-D 24 Hour 10 mg-240 mg tablet,extended release RxNo rm: 9016373 1 Tablet(s) PO QD 06/13/2014 09/10/2014 Inactive cyclobenzaprine 10 mg tablet RxNorm: 812760 1 Tablet(s) PO TID prn spasm 06/12/2014 02/26/2015 Inactive Xanax 1 mg tablet RxNorm: 059388 1-2 Tablet(s) PO QHS 05/09/201406/28 Inactive levothyroxine 75 mcg tablet RxNorm: 170392 1 Tablet(s) PO QD 201407/08/2014 Inactive cephalexin 500 mg capsule RxNorm: 860637 1 Capsule(s) PO QOD 201402/26/2015 Inactive simvastatin 10 mg tablet RxNorm: 514229 1 Tablet(s) PO QHS 04/10/1906/12/2014 Inactive Xanax 1 mg tablet RxNorm: 925329 1-2 Tablet(s) PO QHS 04/10/201404/28 Inactive levothyroxine 75 mcg tablet RxNorm: 842559 1 Tablet(s) PO QD 201404/09/2014 Inactive levothyroxine 75 mcg capsule RxNorm: 712012 1 Capsule(s) PO QD 03/3104/10/2014 Inactive Activella 1 mg-0.5 mg tablet RxNorm: 7638209 1 Tablet(s) PO QD 03/0109/11/2014 Inactive bupropion HCl SR 100 mg tablet,sustained-release RxNorm: 993 503 1 Tablet(s) PO BID 03/04/2014 08/30/2014 Inactive Activella 1 mg-0.5 mg tablet RxNorm: 4995616 1 Tablet(s) PO QD 01/2803/18/2014 Inactive levothyroxine 75 mcg capsule RxNorm: 078009 1 Capsule(s) PO QD 12/2904/08/2014 Inactive simvastatin 10 mg tablet RxNorm: 334596 1 Tablet(s) PO QHS 01/10/20 14 04/08/2014 Inactive cyclobenzaprine 10 mg tablet RxNorm: 553587 1 Tablet(s) PO TID prn spasm 01/09/2014 04/08/2014 Inactive Cipro 500 mg tablet RxNorm: 499044 1 Tablet(s) PO BID 12/25/201304/2013 Inactive Cipro 500 mg tablet RxNorm: 781003 1 Tablet(s) PO BID 12/25/201311/29 Inactive bupropion HCl SR 100 mg tablet,sustained-release RxNorm: 993 503 1 Tablet(s) PO QAM 12/11/2013 03/03/2014 Inactive cephalexin 500 mg capsule RxNorm: 389502 1 Capsule(s) PO QOD 201304/09/2014 Inactive Xanax 1 mg tablet RxNorm: 373591 1-2 Tablet(s) PO QHS 10/15/201310/29 Inactive simvastatin 10 mg tablet RxNorm: 121632 1 Tablet(s) PO QHS 10/11/19 14 01/07/2014 Inactive Celexa 40 mg tablet RxNorm: 284961 Tablet(s) PO TAKE 1 TABLET BY MOUTH ONCE DAILY. 09/18/2013 09/17/2013 Inactive Xanax 1 mg tablet RxNorm: 575455 1-2 Tablet(s) PO QHS 08/13/201308/28 Inactive simvastatin 10 mg tablet RxNorm: 973342 1 Tablet(s) PO QHS 07/12/19 14 10/08/2013 Inactive bupropion HCl SR 100 mg tablet,sustained-release RxNorm: 993 503 1 Tablet(s) PO QAM 05/22/2013 11/17/2013 Inactive Pamelor 10 mg capsule RxNorm: 311502 1 Capsule(s) PO QHS for PLATA /sleep 05/22/2013 06/04/2013 Inactive Xanax 1 mg tablet RxNorm: 326513 1-2 Tablet(s) PO QHS 05/15/201305/29 Inactive Pamelor 10 mg capsule RxNorm: 870320 1 Capsule(s) PO QHS for PLATA /sleep 05/15/2013 05/21/2013 Inactive Xanax 1 mg tablet RxNorm: 510876 1 Tablet(s) PO QHS 04/27/20132013 Inactive Zovirax 800 mg tablet RxNorm: 751512 1 Tablet(s) PO TID 04/05/2013 Inactive Xanax 1 mg tablet RxNorm: 984634 1 Tablet(s) PO QHS 04/03/2013 No Sto p Date Active bupropion HCl SR 100 mg tablet,sustained-release RxNorm: 993 503 1 Tablet(s) PO QAM 03/26/2013 05/21/2013 Inactive bupropion HCl SR 100 mg tablet,sustained-release RxNorm: 993 503 1 Tablet(s) PO QAM 03/06/2013 03/25/2013 Inactive Pamelor 10 mg capsule RxNorm: 048214 1 Capsule(s) PO QHS for PLATA /sleep 02/14/2013 05/14/2013 Inactive levothyroxine 75 mcg capsule RxNorm: 724559 1 Capsule(s) PO QD 12/2901/08/2014 Inactive simvastatin 10 mg tablet RxNorm: 370988 1 Tablet(s) PO QHS TAKE 1 TABLET BY MOUTH ONCE DAILY AT BEDTIME. 01/15/2013 07/10/2013 Inactive cyclobenzaprine 10 mg tablet RxNorm: 444840 1 Tablet(s) PO TID prn spasm 12/25/2012 06/22/2013 Inactive Pamelor 10 mg capsule RxNorm: 644539 1 Capsule(s) PO QHS for PLATA /sleep 11/29/2012 02/14/2013 Inactive Celexa 40 mg tablet RxNorm: 397752 Tablet(s) PO TAKE 1 TABLET BY MOUTH ONCE DAILY. 10/11/2012 09/17/2013 Inactive simvastatin 10 mg tablet RxNorm: 686177 Tablet(s) PO TA KE 1 TABLET BY MOUTH ONCE DAILY AT BEDTIME. 10/11/2012 01/14/2013 Inactive simvastatin 10 mg tablet RxNorm: 345775 1 Tablet(s) PO QD 07/11/2012 10/08/2012 Inactive simvastatin 10 mg tablet RxNorm: 633117 1 Tablet(s) PO QD 04/14/2012 07/11/2012 Inactive simvastatin 10 mg tablet RxNorm: 540493 1 Tablet(s) PO QD 04/14/2012 04/13/2012 Inactive Celexa 40 mg tablet RxNorm: 894149 1 Tablet(s) PO QD 03/15/201209/10 Inactive cyclobenzaprine 10 mg tablet RxNorm: 397034 1 Tablet(s) PO TID prn spasm 02/02/2012 02/01/2012 Inactive cyclobenzaprine 10 mg tablet RxNorm: 187697 1 Tablet(s) PO TID prn spasm 02/02/2012 07/30/2012 Inactive Diflucan 100 mg Tab RxNorm: 099091 1 Tablet(s) PO QD 08/17/201108/22 Inactive Cipro 250 mg Tab RxNorm: 555850 1 Tablet(s) PO QD 08/17/2011 10/15/19 12 Inactive Levaquin 500 mg Tab RxNorm: 972638 1 Tablet(s) PO QD 08/17/201108/22 Inactive Pyridium 200 mg Tab RxNorm: 6681043 1 Tablet(s) PO TID 10/14/2010 Inactive may turn urine orange-red color. Cipro 500 mg Tab RxNorm: 767754 1 Tablet(s) PO BID 10/14/2010 011 Inactive levothyroxine 75 mcg capsule RxNorm: 320354 1 Capsule(s) PO QD 12/3001/14/2011 Inactive loratadine 10 mg tablet RxNorm: 950065 1 Tablet(s) PO QHS No Start Da te Active Vitamin D3 5,000 unit tablet RxNorm: 637805 1 Tablet(s) PO QD No Star t Date Active Nasacort 55 mcg nasal spray aerosol RxNorm: 3731704 2 Sp ray NASAL each nostril QHS No Start Date Active cyclobenzaprine 10 mg tablet RxNorm: 779340 1 Tablet(s) PO TID as needed No Start Date 11/22/2018 Inactive Vitamin D2 1,000 unit capsule RxNorm: 938685 3 Capsule(s) PO QD No Start Date 11/16/2017 Inactive diclofenac sodium 75 mg tablet,delayed release RxNorm: 50515 6 1 Tablet(s) PO BID No Start Date 03/16/2016 Inactive cephalexin 500 mg capsule RxNorm: 074447 1 Capsule(s) PO QOD No Sta rt Date 12/04/2013 Inactive cyclobenzaprine 10 mg tablet RxNorm: 905516 1 Tablet(s) PO QHS No S tart Date 02/01/2012 Inactive hydrocodone 5 mg-acetaminophen 500 mg tablet RxNorm: 164164 1 -2 Tablet(s) PO Q6H as needed No Start Date 08/09/2018 Inactive etodolac 400 mg tablet RxNorm: 923913 1 Tablet(s) PO TID No Start D ate 09/17/2018 Inactive Xanax 1 mg tablet RxNorm: 139058 1 Tablet(s) PO QHS No Start Date 04/2013 Inactive Vitamin D3 1,000 unit capsule RxNorm: 472706 1 Capsule(s) PO QD No Start Date 06/12/2014 Inactive estradiol 2 mg tablet RxNorm: 171724 1/2 Tablet(s) PO QD No Start D ate 03/05/2013 Inactive Celexa 40 mg tablet RxNorm: 231261 1 Tablet(s) PO QD No Start Date Inactive Activella 1 mg-0.5 mg tablet RxNorm: 5400408 1 Tablet(s) PO QD No S tart Date 07/10/2012 Inactive medroxyprogesterone 5 mg tablet RxNorm: 1417213 1/2 Tablet(s) PO QD No Start Date 03/05/2013 Inactive levothyroxine 88 mcg tablet RxNorm: 644965 1 Tablet(s) PO QD No Sta rt Date 02/26/2015 Inactive Keflex 500 mg capsule RxNorm: 284138 1 Capsule(s) PO PRN No Start D ate 08/16/2011 Inactive Activella 1 mg-0.5 mg tablet RxNorm: 1283868 1 Tablet(s) PO QHS No Start Date 03/27/2017 Inactive Activella 1 mg-0.5 mg tablet RxNorm: 5422961 1 Tablet(s) PO QD No S tart Date 02/06/2014 Inactive Flexeril 10 mg Tab RxNorm: 809982 1 Tablet(s) PO TID No Start Date Inactive prn spasm simvastatin 10 mg tablet RxNorm: 710936 1 Tablet(s) PO QD No Start Date 04/13/2012 Inactive Medication Administered No Medication Administered data Immunizations Vaccine Codes Date Status Influenza CVX: 135 01/16/2019 Complete Pneumococcal CVX: 133 01/16/2019 Complete Results No Results data Procedures Procedure Codes Date FLU VACC PRSV FREE INC ANTIG 65 AND OLDER CPT-4: 63251 01/16/2019 FLU VACC PRSV FREE INC ANTIG 65 AND OLDER CPT-4: 67620 01/16/2019 PNEUMOCOCCAL VACC 13 NARESH IM CPT-4: 97615 01/16/2019 SKIN FUNGI CULTURE CPT-4: 37180 01/16/2019 IMMUNIZATION ADMIN CPT-4: 82630 01/16/2019 IMMUNIZATION ADMIN EACH ADD CPT-4: 09659 01/16/2019 THER/PROPH/DIAG INJ SC/IM CPT-4: 72333 01/17/2018 KETOROLAC TROMETHAMINE INJ CPT-4: J1885 01/17/2018 THER/PROPH/DIAG INJ SC/IM CPT-4: 38513 01/17/2018 PROMETHAZINE HCL INJECTION CPT-4: J2550 01/17/2018 URINALYSIS NONAUTO W/O SCOPE CPT-4: 44668 12/29/2017 URINE CULTURE/ COLONY COUNT CPT-4: 22985 12/29/2017 THER/PROPH/DIAG INJ SC/IM CPT-4: 27217 11/30/2017 TRIAMCINOLONE ACET INJ NOS CPT-4: J3301 11/30/2017 DEXAMETHASONE SODIUM PHOS CPT-4: J1100 11/30/2017 CEFTRIAXONE SODIUM INJECTION CPT-4: J0696 11/29/2017 THER/PROPH/DIAG INJ SC/IM CPT-4: 75107 11/29/2017 CEFTRIAXONE SODIUM INJECTION CPT-4: J0696 11/28/2017 THER/PROPH/DIAG INJ SC/IM CPT-4: 16399 11/28/2017 URINALYSIS NONAUTO W/O SCOPE CPT-4: 10852 10/10/2017 THER/PROPH/DIAG INJ SC/IM CPT-4: 21774 10/10/2017 TRIAMCINOLONE ACET INJ NOS CPT-4: J3301 10/10/2017 DEXAMETHASONE SODIUM PHOS CPT-4: J1100 10/10/2017 CEFTRIAXONE SODIUM INJECTION CPT-4: J0696 10/10/2017 THER/PROPH/DIAG INJ SC/IM CPT-4: 08040 10/10/2017 URINE CULTURE/ COLONY COUNT CPT-4: 56465 10/10/2017 THER/PROPH/DIAG INJ SC/IM CPT-4: 70458 11/02/2016 KETOROLAC TROMETHAMINE INJ CPT-4: J1885 11/02/2016 THER/PROPH/DIAG INJ SC/IM CPT-4: 06044 06/15/2016 TRIAMCINOLONE ACET INJ NOS CPT-4: J3301 06/15/2016 DEXAMETHASONE SODIUM PHOS CPT-4: J1100 06/15/2016 THER/PROPH/DIAG INJ SC/IM CPT-4: 00714 04/09/2016 KETOROLAC TROMETHAMINE INJ CPT-4: J1885 04/09/2016 PROMETHAZINE HCL INJECTION CPT-4: J2550 04/09/2016 EXC TR-EXT B9+ERASMO 0.5 CM< CPT-4: 58809 06/12/2015 URINALYSIS NONAUTO W/O SCOPE CPT-4: 45868 05/05/2015 URINE CULTURE/ COLONY COUNT CPT-4: 18883 05/05/2015 URINALYSIS NONAUTO W/O SCOPE CPT-4: 08265 03/24/2015 URINALYSIS NONAUTO W/O SCOPE CPT-4: 81623 02/27/2015 URINE CULTURE/ COLONY COUNT CPT-4: 31997 02/27/2015 THER/PROPH/DIAG INJ SC/IM CPT-4: 86873 04/18/2014 KETOROLAC TROMETHAMINE INJ CPT-4: J1885 04/18/2014 THER/PROPH/DIAG INJ SC/IM CPT-4: 19173 06/05/2013 TRIAMCINOLONE ACET INJ NOS CPT-4: J3301 06/05/2013 THER/PROPH/DIAG INJ SC/IM CPT-4: 09561 11/29/2012 KETOROLAC TROMETHAMINE INJ CPT-4: J1885 11/29/2012 URINALYSIS NONAUTO W/O SCOPE CPT-4: 87142 07/11/2012 URINE CULTURE/ COLONY COUNT CPT-4: 52930 07/11/2012 OCCULT BLOOD FECES CPT-4: 24531 02/17/2012 URINALYSIS NONAUTO W/O SCOPE CPT-4: 22031 08/27/2011 URINE CULTURE/ COLONY COUNT CPT-4: 63003 08/27/2011 URINALYSIS NONAUTO W/O SCOPE CPT-4: 46723 08/17/2011 URINE CULTURE/ COLONY COUNT CPT-4: 74762 08/17/2011 URINALYSIS NONAUTO W/O SCOPE CPT-4: 14794 12/28/2010 URINE CULTURE/ COLONY COUNT CPT-4: 41335 12/28/2010 URINALYSIS NONAUTO W/O SCOPE CPT-4: 93788 11/09/2010 URINE CULTURE/ COLONY COUNT CPT-4: 80169 11/09/2010 URINALYSIS NONAUTO W/O SCOPE CPT-4: 04228 10/29/2010 URINE CULTURE/ COLONY COUNT CPT-4: 95699 10/29/2010 URINE CULTURE/ COLONY COUNT CPT-4: 58573 10/14/2010 URINALYSIS NONAUTO W/O SCOPE CPT-4: 55116 10/14/2010 Vital Signs Date Vital 01/16/2019 Blood Pressure 1: 122/74 Code: 8480-6 BMI: 22.0 Code: 77064-5 Heart Rate 1: 72 bpm Height: 5'3" [...] 1: 126/72 Code: 8480-6 BMI: 22.7 Code: 04798-3 Heart Rate 1: 72 bpm Height: 5'3" [...] 1: 112/70 Code: 8480-6 BMI: 22.0 Code: 78809-5 Heart Rate 1: 80 bpm Height: 5'3" [...] 1: 122/64 Code: 8480-6 BMI: 21.4 Code: 70215-7 Heart Rate 1: 88 bpm Height: 5'3" Respiratory Rate: 22 bpm SpO2: 96% Tempera ture: 36.8 (C) / 98.2 (F) Weight: 121 lbs 06/22/2017 Blood Pressure 1: 124/78 Code: 8480-6 BMI: 21.6 Code: 15236-2 Heart Rate 1: 76 bpm Height: 5'3" Respiratory Rate: 20 bpm Temperature: 36 .8 (C) / 98.3 (F) Weight: 122 lbs 03/28/2017 Blood Pressure 1: 92/60 Code: 8480-6 BMI: 20.4 C ode: 31365-2 Heart Rate 1: 72 bpm Height: 5'3" Respiratory Rate: 20 bpm Temperature: 36 .9 (C) / 98.4 (F) Weight: 115 lbs 02/16/2017 Blood Pressure 1: 106/70 Code: 8480-6 BMI: 21.3 Code: 58344-9 Heart Rate 1: 82 bpm Height: 5'3" Respiratory Rate: 22 bpm SpO2: 97% Tempera ture: 36.1 (C) / 97.0 (F) Weight: 120 lbs 09/06/2016 Blood Pressure 1: 118/64 Code: 8480-6 BMI: 22.7 Code: 54235-9 Heart Rate 1: 78 bpm Height: 5'3" Respiratory Rate: 20 bpm SpO2: 98% Tempera ture: 36.2 (C) / 97.2 (F) Weight: 128 lbs 08/16/2016 Blood Pressure 1: 118/78 Code: 8480-6 BMI: 22.1 Code: 67830-3 Heart Rate 1: 78 bpm Height: 5'3" Respiratory Rate: 20 bpm SpO2: 97% Tempera ture: 36.2 (C) / 97.1 (F) Weight: 125 lbs 07/19/2016 Blood Pressure 1: 116/68 Code: 8480-6 BMI: 22.5 Code: 66087-3 Heart Rate 1: 76 bpm Height: 5'3" Respiratory Rate: 20 bpm Temperature: 36 .8 (C) / 98.2 (F) Weight: 127 lbs 07/06/2016 Blood Pressure 1: 106/70 Code: 8480-6 BMI: 22.5 Code: 39072-5 Heart Rate 1: 72 bpm Height: 5'3" Respiratory Rate: 20 bpm SpO2: 97% Tempera ture: 36.8 (C) / 98.2 (F) Weight: 127 lbs 06/15/2016 Blood Pressure 1: 136/76 Code: 8480-6 BMI: 22.9 Code: 71047-2 Heart Rate 1: 74 bpm Height: 5'3" Respiratory Rate: 18 bpm SpO2: 98% Tempera ture: 36.4 (C) / 97.6 (F) Weight: 129 lbs 04/09/2016 Blood Pressure 1: 124/78 Code: 8480-6 BMI: 23.0 Code: 58726-6 Heart Rate 1: 86 bpm Height: 5'3" Respiratory Rate: 20 bpm SpO2: 96% Tempera ture: 36.5 (C) / 97.7 (F) Weight: 130 lbs 03/17/2016 Blood Pressure 1: 116/74 Code: 8480-6 BMI: 23.4 Code: 87519-5 Heart Rate 1: 84 bpm Height: 5'3" Respiratory Rate: 20 bpm SpO2: 97% Tempera ture: 36.8 (C) / 98.3 (F) Weight: 132 lbs 11/13/2015 Blood Pressure 1: 124/78 Code: 8480-6 BMI: 23.4 Code: 82061-7 Heart Rate 1: 88 bpm Height: 5'3" Respiratory Rate: 24 bpm SpO2: 98% Tempera ture: 36.8 (C) / 98.2 (F) Weight: 132 lbs 06/12/2015 Blood Pressure 1: 126/78 Code: 8480-6 BMI: 23.6 Code: 20904-8 Heart Rate 1: 80 bpm Height: 5'3" Respiratory Rate: 20 bpm Temperature: 36 .9 (C) / 98.4 (F) Weight: 133 lbs 04/22/2015 Blood Pressure 1: 126/68 Code: 8480-6 BMI: 23.6 Code: 55724-2 Heart Rate 1: 80 bpm Height: 5'3" Respiratory Rate: 20 bpm Temperature: 36 .6 (C) / 97.9 (F) Weight: 133 lbs 03/24/2015 Blood Pressure 1: 116/66 Code: 8480-6 BMI: 22.9 Code: 13777-5 Heart Rate 1: 74 bpm Height: 5'3" Respiratory Rate: 20 bpm Temperature: 36 .4 (C) / 97.6 (F) Weight: 129 lbs 02/27/2015 Blood Pressure 1: 106/64 Code: 8480-6 BMI: 22.7 Code: 59100-4 Heart Rate 1: 74 bpm Height: 5'3" Respiratory Rate: 20 bpm Temperature: 36 .8 (C) / 98.2 (F) Weight: 128 lbs 06/13/2014 Blood Pressure 1: 104/66 Code: 8480-6 BMI: 22.7 Code: 96000-0 Heart Rate 1: 84 bpm Height: 5'3" Respiratory Rate: 20 bpm Temperature: 37 .0 (C) / 98.6 (F) Weight: 128 lbs 04/18/2014 Blood Pressure 1: 112/62 Code: 8480-6 BMI: 22.0 Code: 81892-6 Heart Rate 1: 82 bpm Height: 5'3" Respiratory Rate: 18 bpm Temperature: 36 .4 (C) / 97.6 (F) Weight: 124 lbs 12/05/2013 Blood Pressure 1: 106/70 Code: 8480-6 BMI: 23.7 Code: 11415-5 Heart Rate 1: 84 bpm Height: 5'3" [...] 1: 126/88 Code: 8480-6 BMI: 22.3 Code: 30281-0 Heart Rate 1: 96 bpm Height: 5'4" Respiratory Rate: 20 bpm Temperature: 37 .7 (C) / 99.9 (F) Weight: 130 lbs 11/29/2012 Blood Pressure 1: 122/76 Code: 8480-6 BMI: 23.0 Code: 37176-7 Heart Rate 1: 84 bpm Height: 5'4" Respiratory Rate: 20 bpm Temperature: 36 .9 (C) / 98.4 (F) Weight: 134 lbs 09/26/2012 Blood Pressure 1: 114/76 Code: 8480-6 BMI: 23.0 Code: 34351-8 Heart Rate 1: 84 bpm Height: 5'4" Respiratory Rate: 20 bpm Temperature: 37 .3 (C) / 99.1 (F) Weight: 134 lbs 07/11/2012 Blood Pressure 1: 126/78 Code: 8480-6 BMI: 23.7 Code: 98600-4 Heart Rate 1: 76 bpm Height: 5'4" Respiratory Rate: 20 bpm Temperature: 37 .1 (C) / 98.7 (F) Weight: 138 lbs 02/02/2012 Blood Pressure 1: 108/70 Code: 8480-6 BMI: 23.2 Code: 45123-8 Heart Rate 1: 88 bpm Height: 5'4" Respiratory Rate: 20 bpm Temperature: 36 .4 (C) / 97.6 (F) Weight: 135 lbs 08/17/2011 Blood Pressure 1: 108/70 Code: 8480-6 BMI: 23.2 Code: 31658-3 Heart Rate 1: 72 bpm Height: 5'4" Respiratory Rate: 20 bpm Temperature: 36 .8 (C) / 98.2 (F) Weight: 135 lbs 10/14/2010 Blood Pressure 1: 120/72 Code: 8480-6 BMI: 23.4 Code: 29920-2 Heart Rate 1: 78 bpm Height: 5'3" [...] VACCINE[ICD10: Z23] Diagnosis: Onychomycosis[ICD10: B35.1] Alexandra KUNZ [facility] CPT-4: 36117 01/16/2019 ([id number]) OFFICE/OUTPATIENT VISIT EST Diagnosis: Diarrhea, unspecified[ICD10: R19.7] Diagnosis: Radiculopathy, lumbosacral region[ICD10: M54.17] Alexandra CARROLL [facility] CPT-4: 40105 09/18/2018 OFFICE/OUTPATIENT VISIT EST Diagnosis: Other intervertebral disc degeneration, lumbar region[ICD10: M51.36] Diagnosis: Sacroiliitis, not elsewhere classified[ICD10: M46.1] Diagnosis: Obstructive sleep apnea (adult) (pediatric)[ICD10: G47.33] Alexandra BURLESON [facility] CPT-4: 20267 08/10/2018 ([id number]) OFFICE/OUTPATIENT VISIT EST Diagnosis: Fracture of unspecified part of left clavicle, subsequent encounter for fracture with routine healing[ICD10: S42.002D] Diagnosis: Cervicalgia[ICD10: M54.2] Diagnosis: Radiculopathy, lumbosacral region[ICD10: M54.17] Alexandrateja CARROLL [facility] CPT-4: 13342 03/27/2018 ([id number]) OFFICE/OUTPATIENT VISIT EST Diagnosis: Fracture of unspecified part of left clavicle, subsequent encounter for fracture with routine healing[ICD10: S42.002D] Diagnosis: Other intervertebral disc degeneration, lumbar region[ICD10: M51.36] Diagnosis: Unspecified fracture of first thoracic vertebra, subsequent encounter for fracture with routine healing[ICD10: S22.019D] Diagnosis: Unspecified fracture of second thoracic vertebra, subsequent encounter for fracture with routine healing[ICD10: S22.029D] Alexandra CARROLL [facility] CPT-4: 36304 02/23/2018 ([id number]) OFFICE/OUTPATIENT VISIT EST Diagnosis: Fracture of unspecified part of left clavicle, subsequent encounter for fracture with routine healing[ICD10: S42.002D] Diagnosis: Unspecified fracture of first thoracic vertebra, subsequent encounter for fracture with routine healing[ICD10: S22.019D] Diagnosis: Unspecified fracture of second thoracic vertebra, subsequent encounter for fracture with routine healing[ICD10: S22.029D] Alexandra CARROLL [facility] CPT-4: 45788 01/24/2018 ([id number]) OFFICE/OUTPATIENT VISIT EST Diagnosis: Migraine, unspecified, not intractable, without status migrainosus[ICD10: G43.909] Alexandra CARROLL [facility] CPT - 4: 42316 01/17/2018 ([id number]) OFFICE/OUTPATIENT VISIT EST Diagnosis: Hematuria, unspecified[ICD10: R31.9] Diagnosis: Other intervertebral disc degeneration, lumbar region[ICD10: M51.36] Diagnosis: Retention of urine, unspecified[ICD10: R33.9] Alexandra CARROLL [facility] CPT-4: 21032 12/29/2017 OFFICE/OUTPATIENT VISIT EST Diagnosis: Fracture of [...] Low back pain[ICD10: M54.5] Alexandra KUNZ DO [facility] CPT-4: 55928 12/06/2017 ([id number]) OFFICE/OUTPATIENT VISIT EST Diagnosis: Cellulitis of right upper limb[ICD10: L03.113] Diagnosis: Allergy status to other antibiotic agents status[ICD10: Z88.1] Vandana CARROLL DO [facility] CPT-4: 60699 12/01/2017 ([id number]) OFFICE/OUTPATIENT VISIT EST Diagnosis: Cellulitis of right upper limb[ICD10: L03.113] Diagnosis: Allergy status to other antibiotic agents status[ICD10: Z88.1] Vandana CARROLL DO [facility] CPT-4: 46922 11/30/2017 ([id number]) OFFICE/OUTPATIENT VISIT EST Diagnosis: Cellulitis of right upper limb[ICD10: L03.113] Vandana CARROLL DO [facility] CPT-4: 11963 11/29/2017 ([id number]) OFFICE/OUTPATIENT VISIT EST Diagnosis: Cellulitis of right upper limb[ICD10: L03.113] Vandana CARROLL DO [facility] CPT-4: 19827 11/28/2017 ([id number]) OFFICE/OUTPATIENT VISIT EST Diagnosis: Other intervertebral disc degeneration, lumbar region[ICD10: M51.36] Diagnosis: Other retention of urine[ICD10: R33.8] Diagnosis: Primary insomnia[ICD10: F51.01] Diagnosis: Other spondylosis, site unspecified[ICD10: M47.899] Alexandra CARROLL [facility] CPT-4: 45994 11/17/2017 ([id number]) OFFICE/OUTPATIENT VISIT EST Diagnosis: Radiculopathy, lumbosacral region[ICD10: M54.17] Diagnosis: Other retention of urine[ICD10: R33.8] Diagnosis: Urinary tract infection, site not specified[ICD10: N39.0] Vandana CARROLL [facility] CPT-4: 43586 10/10/2017 ([id number]) PREV VISIT EST AGE 40-64 Diagnosis: Encounter for general adult medical examination without abnormal findings[ICD10: Z00.00] Diagnosis: Other intervertebral disc degeneration, lumbar region[ICD10: M51.36] Diagnosis: Hypothyroidism, unspecified[ICD10: E03.9] Diagnosis: Mixed hyperlipidemia[ICD10: E78.2] Alexandra Glen CARROLL DO [facility] CPT-4: 31598 06/22/2017 ([id number]) OFFICE/OUTPATIENT VISIT EST Diagnosis: URI, ACUTE[ICD10: J06.9] Alexandra Glen ALEXANDRA Ty PAREKH [facility] CPT-4: 65536 03/28/2017 OFFICE/OUTPATIENT VISIT EST Diagnosis: Acute sinusitis, unspecified[ICD10: J01.90] Vandana CARROLL DO [facility] CPT-4: 82642 02/16/2017 ([id number]) OFFICE/OUTPATIENT VISIT EST Diagnosis: Migraine, unspecified, not intractable, without status migrainosus[ICD10: G43.909] Alexandra SHAFFERLINE Ty CARROLL [facility] CPT - 4: 54994 11/02/2016 ([id number]) OFFICE/OUTPATIENT VISIT EST Diagnosis: Pain in thoracic spine[ICD10: M54.6] Diagnosis: Chondrocostal junction syndrome [Tietze][ICD10: M94.0] Alexandra Glen ALEXANDRA MacyAri GLEN SALGUERO [facility] CPT-4: 44129 09/06/2016 OFFICE/OUTPATIENT VISIT EST Diagnosis: Acute sinusitis, unspecified[ICD10: J01.90] Vidya Manuel ALEXANDRA MacyAri GLEN [facility] CPT-4: 23897 08/16/2016 ([id number]) OFFICE/OUTPATIENT VISIT EST Diagnosis: Primary insomnia[ICD10: F51.01] Diagnosis: Cramp and spasm[ICD10: R25.2] Diagnosis: Major depressive disorder, single episode, mild[ICD10: F32.0] Alexandradanielle CARROLL [facility] CPT-4: 44651 07/19/2016 ([id number]) OFFICE/OUTPATIENT VISIT EST Diagnosis: Obstructive sleep apnea (adult) (pediatric)[ICD10: G47.33] Diagnosis: Other fatigue[ICD10: R53.83] Diagnosis: Allergic rhinitis due to pollen[ICD10: J30.1] Diagnosis: Headache[ICD10: R51] Alexandra CARROLL DO [facility] CPT-4: 62676 07/06/2016 ([id number]) OFFICE/OUTPATIENT VISIT EST Diagnosis: Acute recurrent sinusitis, unspecified[ICD10: J01.91] Diagnosis: Allergic rhinitis due to pollen[ICD10: J30.1] Alexandra CARROLL DO [facility] CPT-4: 27022 06/15/2016 ([id number]) OFFICE/OUTPATIENT VISIT EST Diagnosis: Migraine, unspecified, not intractable, without status migrainosus[ICD10: G43.909] Diagnosis: Allergic rhinitis, unspecified[ICD10: J30.9] Nae CARROLL [facility] CPT-4: 24571 04/09/2016 ([id number]) OFFICE/OUTPATIENT VISIT EST Diagnosis: Hypothyroidism, unspecified[ICD10: E03.9] Diagnosis: Other fatigue[ICD10: R53.83] Diagnosis: Mixed hyperlipidemia[ICD10: E78.2] Diagnosis: Major depressive disorder, single episode, mild[ICD10: F32.0] Alexandra CARROLL [facility] CPT-4: 53153 03/17/2016 ([id number]) OFFICE/OUTPATIENT VISIT EST Diagnosis: Insomnia, unspecified[ICD10: G47.00] Diagnosis: Encounter for therapeutic drug level monitoring[ICD10: Z51.81] Naenahed Mckay ALEXANDRA Ty CARROLL [facility] CPT-4: 38402 11/13/2015 ([id number]) OFFICE/OUTPATIENT VISIT EST Diagnosis: Hematuria, unspecified[ICD10: R31.9] Alexandra CARROLL [facility] CPT-4: 70078 05/05/2015 ([id number]) OFFICE/OUTPATIENT VISIT EST Diagnosis: Other intervertebral disc degeneration, lumbar region[ICD10: M51.36] Diagnosis: Radiculopathy, lumbosacral region[ICD10: M54.17] Alexandra CARROLL DO [facility] CPT-4: 83777 04/22/2015 ([id number]) OFFICE/OUTPATIENT VISIT EST Diagnosis: Low back pain[ICD10: M54.5] Diagnosis: Recurrent and persistent hematuria with unspecified morphologic changes[ICD10: N02.9] Alexandra SHAFFERLINE Ty CARROLL DO [facility] CPT-4: 37493 03/24/2015 ([id number]) OFFICE/OUTPATIENT VISIT EST Diagnosis: Acute sinusitis, unspecified[ICD10: J01.90] Diagnosis: Headache[ICD10: R51] Diagnosis: Retention of urine, unspecified[ICD10: R33.9] Diagnosis: Hypothyroidism, unspecified[ICD10: E03.9] Alexandra SHAFFERLINE MacyAri GLEN SALGUERO [facility] CPT-4: 30937 02/27/2015 ([id number]) PREV VISIT EST AGE 40-64 Diagnosis: ROUTINE MEDICAL EXAM[ICD9: V70.0] Diagnosis: HYPOTHYROIDISM[ICD9: 244.9] Diagnosis: HYPERLIPIDEMIA NEC/NOS[ICD9: 272.4] Alexandra Danelawandavioletta DOM CORDOBA Ty CARROLL DO [facility] CPT-4: 82610 06/13/2014 ([id number]) OFFICE/OUTPATIENT VISIT EST Diagnosis: CEPHALGIA[ICD9: 784.0] Diagnosis: Nausea[ICD9: 787.02] Shalini Romeo MARINQUELINE Ty CARROLL DO [facility] CPT-4: 30969 04/18/2014 ([id number]) OFFICE/OUTPATIENT VISIT EST Diagnosis: INSOMNIA NOS[ICD9: 780.52] Diagnosis: Complicated grieving[ICD9: 309.0] Alexandra Danejames Louise MacyAri GLEN [facility] CPT-4: 49470 12/05/2013 ([id number]) OFFICE/OUTPATIENT VISIT EST Diagnosis: Muscle twitch[ICD9: 781.0] Diagnosis: ALLERGIC RHINITIS[ICD9: 477.9] Alexandra FORDE Macy Ari GLEN SALGUERO [facility] CPT-4: 60101 06/05/2013 ([id number]) OFFICE/OUTPATIENT VISIT EST Diagnosis: DEPRESSIVE DISORDER NEC[ICD9: 311] Alexandra QUINTERO S. DANENDER [facility] CPT-4: 70423 05/22/2013 OFFICE/OUTPATIENT VISIT EST Diagnosis: Shingles[ICD9: 053.9] Alexandra VELANDER [facility] CPT-4: 69505 04/05/2013 ([id number]) OFFICE/OUTPATIENT VISIT EST Diagnosis: DEPRESSIVE DISORDER NEC[ICD9: 311] Alexandra QUINTERO S. DANENDER DO [facility] CPT-4: 66818 03/26/2013 ([id number]) OFFICE/OUTPATIENT VISIT EST Diagnosis: Complicated grieving[ICD9: 309.0] Alexandra Orendvioletta Louise SAri VELANDER [facility] CPT-4: 74277 03/06/2013 ([id number]) OFFICE/OUTPATIENT VISIT EST Diagnosis: CEPHALGIA, TENSION[ICD9: 307.81] Diagnosis: MIGRAINE NOS/NOT INTRCBL[ICD9: 346.90] Diagnosis: Cervicalgia[ICD9: 723.1] Alexandra VELAN IZABELLA [facility] CPT-4: 51796 11/29/2012 ([id number]) OFFICE/OUTPATIENT VISIT EST Diagnosis: Jaw pain[ICD9: 784.92] Diagnosis: Shoulder pain[ICD9: 719.41] Diagnosis: Family history of premature coronary artery disease[ICD9: V17.3] Alexandra Velalawandavioletta BURLESONER [facility] CPT-4: 72820 09/26/2012 ([id number]) OFFICE/OUTPATIENT VISIT EST Diagnosis: ABDOMINAL PAIN[ICD9: 789.00] Diagnosis: Constipation[ICD9: 564.00] Diagnosis: Hematuria[ICD9: 599.70] Alexandra Orendvioletta SHAFFERALEXANDRA Ty VELAND ER [facility] CPT-4: 40796 07/11/2012 ([id number]) OFFICE/OUTPATIENT VISIT EST Diagnosis: ANEMIA NOS[ICD9: 285.9] Alexandra Burlesonvioletta SHAFFERALEXANDRA MacyAri DANEND ER DO [facility] CPT-4: 43722 02/17/2012 ([id number]) PREV VISIT EST AGE 40-64 Diagnosis: ROUTINE MEDICAL EXAM[ICD9: V70.0] Diagnosis: HYPOTHYROIDISM[ICD9: 244.9] Diagnosis: HYPERLIPIDEMIA NEC/NOS[ICD9: 272.4] Diagnosis: Obstructive sleep apnea[ICD9: 327.23] Alexandra Carroll NICOLASA VELANDVIOLETTA [facility] CPT-4: 66280 02/02/2012 ([id number]) OFFICE/OUTPATIENT VISIT EST Diagnosis: URINARY TRACT INFECTION[ICD9: 599.0] [facility] 98122 08/27/2011 ([id number]) OFFICE/OUTPATIENT VISIT EST Diagnosis: URINARY TRACT INFECTION[ICD9: 599.0] Diagnosis: ACUTE CYSTITIS[ICD9: 595.0] Alexandra Crawford O ZE [facility] CPT-4: 41390 08/17/2011 OFFICE/OUTPATIENT VISIT EST Diagnosis: URINARY TRACT INFECTION[ICD9: 599.0] Steph MARINSHALINI [facility]: 63955 10/14/2010 Plan of Care Planned Activity Notes Codes Status Date Visit Diagnosis Plan: Small bowel obstruction Discussi on: S/P surgery in September with postop complications of wound dehiscence ICD-9 : 560.9 ICD-10 : K56.609 01/16/2019 Visit Diagnosis Plan: Onychomycosis Discussion: Send n ail for culture ICD-9 : 110.1 ICD-10 : B35.1 01/16/2019 Appointment: Alexandra Carroll WPtel: [address] [place], [place] [id number] [place] MEDICATION REVIEW 01/16/2019 Appointment: Alexandra Carroll WPtel: [address] [place] [id number] US CANCELED 12/12/2018 Visit Diagnosis Plan: Radiculopathy, lumbosacral regio n Discussion: Had left SI joint injection by Dr. Baig about 2 weeks ago and has fwup with him ICD-9 : 724.4 ICD-10 : M54.17 09/18/2018 Visit Diagnosis Plan: Diarrhea, unspecified Discussion : Due for updated colonoscopy ICD-9 : 787.91 ICD-10 : R19.7 09/18/2018 Appointment: Alexandra Carroll WPtel: [address] [place] [address] US PATIENT CONSULT 15 09/18/2018 Care Plan: Referral Order SNOMED-CT : 30 [id number] Pending 09/18/2018 Visit Diagnosis Plan: Sacroiliitis, not [...] : G47.33 08/10/2018 Appointment: Alexandra Carroll WPtel: [address] [place] [address] MEDICATION REVIEW 08/10/2018 Care Plan: Referral Order SNOMED-CT : 30 [id number] Pending 08/10/2018 Appointment: Alexandra Carroll WPtel: [address] [place] [address] US CANCELED 04/17/2018 Visit Diagnosis Plan: Fracture [...] : M54.17 03/27/2018 Appointment: Alexandra Carroll WPtel: [address] [place], [place] [phone] US FOLLOW UP 03/27/2018 Visit Diagnosis Plan: [...] : M51.36 02/23/2018 Appointment: Alexandra Carroll WPtel: [address] [place], [place] [phone] US FOLLOW UP 02/23/2018 Patient Education: gabapentin- [employer] Coupon [id number] [phone] [email or web address] Completed 02/23/2018 Visit Diagnosis Plan: Fracture of unspec ified part of left clavicle, subsequent encounter for fracture with routine healing Discussion: Hold on PT and do home stretches Trial of gabapentin Recheck 4 weeks ICD-9 : V54.11 ICD-10 : S42.002D 01/24/2018 Appointment: Alexandra Carroll WPtel: [address] [place], [place] [phone] US FOLLOW UP 01/24/2018 Visit Diagnosis Plan: Migraine, unspecif ied, not intractable, without status migrainosus Discussion: Toradol and phenergan given ICD-9 : 346.90 ICD-10 : G43.909 01/17/2018 Appointment: Alexandra Carroll WPtel: [address] [place], [place] [phone] ACUTE ILLNESS 01/17/2018 Visit Diagnosis Plan: Hematuria, [...] R33.9 12/29/2017 [facility]ment[facility] [phone] [id number] [facility] 12/29/2017 Care Plan: US EXAM PELVIC COMPLETE LOINC : 83446-1 Pending 12/29/2017 Care Plan: ECHO EXAM OF ABDOMEN LOINC : 97002-9 Pending 12/29/2017 Care Plan: Referral Order SNOMED-CT : 30 [id number] Pending 12/29/2017 Visit Diagnosis Plan: Fracture of unspec ified part of left clavicle, subsequent encounter for fracture with routine healing Discussion: Start PT in another 7-14 days Off work for the rest of this week then may return to part-time work on 12/12/17 Fwup in 4 weeks ICD-9 : V54.11 ICD-10 : S42.002D 12/06/2017 Appointment: [facility] [phone] [id number] [facility] 12/06/2017 Patient Education: Patient [...] : Z88.1 12/01/2017 Appointment: Vandana Crowe [address] [facility] FOLLOW UP 12/01/2017 Patient Education: Patient [...] : L03.113 11/30/2017 Appointment: Vandana Crowe [address] [facility] 11/30/2017 Patient Education: Patient Medication Summary [...] : L03.113 11/29/2017 Appointment: Vandana Crowe [address] [facility] FOLLOW UP 11/29/2017 Patient Education: Patient [...] ICD-10 : L03.113 11/28/2017 Appointment: Vandana Crowe [address] [place], [place] [id number] 11/28/2017 Patient Education: [...] M47.899 11/17/2017 Appointment: Alex[facility] [phone] [id number] [facility] REVIEW 11/17/2017 Patient Education: Patient Medication Summary Completed 11/17/2017 Care Plan: Referral Order SNOMED-CT : 30 [id number] Pending 11/17/2017 Patient Education: Patient Medication Summary Completed 10/12/2017 Care Plan: MRI LUMBAR SPINE W/O DYE LOIN C : 10498-1 Pending 10/12/2017 Care Plan: X-RAY EXAM L-S SPINE 2/3 VWS LOINC : 76912-2 Pending 10/11/2017 Visit Diagnosis Plan: Other retention [...] medrol pack to start tomorrow. will call [facility] for patient to start PT immediately with inversion table. instructed patient to go to ED immediately if she develops any incontinence with bowel or bladder. patient verbalized understanding. if no improvement, will need updated MRI and referral to surgeon. ICD-9 : 724.4 ICD-10 : M54.17 10/10/2017 Appointment: Vandana Crowe [address] [place] [address] ACUTE ILLNESS 10/10/2017 Patient Education: Patient Medication Summary Completed 10/10/2017 Appointment: Vandana Crowe [address] [place] [address] ACUTE ILLNESS 08/01/2017 Visit Diagnosis Plan: Other intervertebral disc degene ration, lumbar region Discussion: Core strengtheing and inversion table and if worsening will need updated MRI ICD-9 : 722.52 ICD-10 : M51.36 06/22/2017 Visit Diagnosis Plan: Encounter for [facility] adult medical examination without abnormal findings Discussion: Lab dis ussed Follow Up: 6 months ICD-9 : V70.0 ICD-10 : Z00.00 06/22/2017 Appointment: Alexandra Carroll WPtel: [address] [place] [address] Annual Well Visit 06/22/2017 Patient Education: Patient Medication Summary Completed 06/22/2017 Patient Education: Patient Medication Summary Completed 06/16/2017 Care Plan: COMPREHEN METABOLIC PANEL [place] : 86962-3 Pending 06/16/2017 Care Plan: ASSAY THYROID STIM HORMONE Pen ding 06/16/2017 Care Plan: ASSAY OF FREE THYROXINE Pendin g 06/16/2017 Care Plan: LIPID PANEL LOINC : 27932-7 Pending 06/16/2017 Care Plan: CBC Pending 06/16/2017 [...] Rest, Fluids... 03/28/2017 Appointment: Alexandra Carroll WPtel: [address] [place] [address] ACUTE ILLNESS 03/28/2017 Patient Education: Patient Medication Summary Completed 03/28/2017 Visit Diagnosis Plan: Acute sinusitis, unspecified Dis cussion: cefdinir and medrol dose pack prescribed to be taken as directed. tylenol/ibuprofen as needed. educated on importance of taking singulair or zyrtec daily to prevent worsening symptoms. keep hydrated. ICD-9 : 461.9 ICD-10 : J01.90 02/16/2017 Appointment: Vandana Crowe [address] [place] [address] ACUTE ILLNESS 02/16/2017 Patient Education: Patient Medication Summary Completed 02/16/2017 Appointment: Alexandra Carroll WPtel: [address] [place] [address] US INJECTION 11/02/2016 Patient Education: Patient Medication Summary Completed 11/02/2016 Visit Diagnosis Plan: Pain in thoracic spine Discussio n: Increase flexeril to 10mg po BID Add Mobic 15mg po daily Towel stretch May see chiropractor to adjust ribs Notify if persists or worsening ICD-9 : 724.1 ICD-10 : M54.6 09/06/2016 Appointment: Alexandra Carroll WPtel: [address] [place] [address] ACUTE ILLNESS 09/06/2016 Patient Education: Patient Medication Summary Completed 09/06/2016 Visit Plan: Due to hx, ERx Cefdinir and Prednisone (discussed risks for both) Given bottle for nasal saline rinses Tylenol/Ibuprofen prn pain/fever Fluids/rest Discussed s/s of worsening, RTC if no improvement 08/16/2016 Appointment: Vidya Manuel WPtel: [facility] [address] ACUTE ILLNESS 08/16/2016 Patient Education: Patient [...] : F51.01 07/19/2016 Appointment: Alexandra Carroll WPtel: [address] [place], [place] [phone] 07/15 confirmed`sl FOLLOW UP 07/19/2016 Patient Education: [...] : G47.33 07/06/2016 Appointment: Alexandra Carroll WPtel: [address] [place], [place] [phone] 07/05 confirmed-sp FOLLOW UP 07/06/2016 Patient Education: [...] : J30.1 06/15/2016 Appointment: Alexandra Carroll WPtel: [address] [place], [place] [phone] 06/14 lm ~sl ACUTE ILLNESS 06/15/2016 Patient Education: Patient Medication Summary Completed 06/15/2016 Visit Diagnosis Plan: Migraine, unspecif ied, not intractable, without status migrainosus Discussion: Injection as above Drink ple nty of water No driving x 6 hours Rest No OTC nsaids today Follow up PRN Refill called of claritin-d ICD-9 : 346.90 ICD-10 : G43.909 04/09/2016 Appointment: Nae Mckay [address] [place], [place] [id number] ACUTE ILLNESS 04/09/2016 Patient Education: Patient Medication [...] : E78.2 03/17/2016 Appointment: Alexandra Carroll WPtel: [address] [place], [place] [id number] [place] 03/16 nvm~sl 03/17 confirmed`sl FOLLOW UP 0 03/17/2016 Patient Education: Patient Medication Summary Completed 03/17/2016 Appointment: Alexandra Carroll WPtel: [address] [place] [id number] [place] 03/11 lm~sl 03/15lm `sl 03/15 confirmed`sl [...] same robert. If working well, continue the t1pogxq office visits. Call if not working well, and will restart xanax at for sleep. 11/13/2015 Appointment: Nae Mckay [address] [place], [place] [id number] 11/11 confirmed~sl FOLLOW UP 11/13/2015 Patient Education: Patient Medication Summary Completed 11/13/2015 Appointment: Alexandra Carroll WPtel: [address] [place] [id number] Suture Removal 06/23/2015 Patient Education: Patient Medication Summary Completed 06/23/2015 Visit Plan: Removal of lesion above usin g 3-0 punch biopsy Return in 10 days for suture removal 06/12/2015 Appointment: Alexandra Carroll WPtel: [address] [place] [id number] 06/10 lm ~sl ACUTE ILLNESS 06/12/2015 Patient Education: Patient Medication Summary Completed 06/12/2015 Referral: Soy Garcia WPtel: [address] Schedule patient around lunch time and 3 weeks from 04/22/2015 ~sl Spoke with Kiesha at Dr[facility] and 04/24/15 and scheduled the patient ~sl 04/24/15 Patient is informed~sl 06/03 Patient canceled the appointment ~ Patient did not show up for scheduled appointment-sp Appoint ment Requested 05/21/2015 Appointment: Alexandra Carroll WPtel: [address] [place], [place] [phone] 05/05/2015 Patient Education: Patient Medication Summary Completed 05/05/2015 Visit Plan: Starts PT today Schedule wit h Dr. Garcia for epidural CT abdomen/pelvis results discussed Sees [facility] in April and will get checked then 04/22/2015 Appointment: Alexandra Carroll WPtel: [address] [place] [address] 04/21 confirmed~lb ACUTE ILLNESS 04/22/2015 Patient Education: Patient Medication Summary Completed 04/22/2015 Referral: Lincoln Hernandez WPtel: [address] [place] [address] Referral Initiated 04/10/2015 Patient Education: Patient Medication Summary Completed 04/09/2015 Visit Plan: Start with lumosacral spine x-ray--will likely need MRI of L/S spine x-ray Needs urology--has had to have bladder stretched in past Tivorbex 03/24/2015 Appointment: Alexandra Carroll WPtel: [address] [place], [place] [phone] 03/21/15 appt confirmed cn ACUTE ILLNESS 03/24 Patient Education: Patient Medication Summary Completed 03/24/2015 Visit Plan: Saline nasal flushes prn. Ty lenol/Motrin prn headache. Notify if persists/symptoms worsening. Cefuroxime to cover both sinuses and UTI Culture urine Check lab 02/27/2015 Appointment: Alexandra Carroll WPtel: [address] [place] [id number] 02/26/15 vm to confirm and need new insu meri on file is inactive cn....02/27/15 appt confirmed cn ACUTE ILLNESS 015 Patient Education: Patient Medication Summary Completed 02/27/2015 Visit Plan: Lab discussed Stop simvastat in Check lipids in 6mos Continue all other meds at current dose Had Pap and Mammo 3 weeks ago 06/13/2014 Appointment: Alexandra Carroll WPtel: [address] [place], [place] [id number] Annual Well Visit 06/13/2014 Patient Education: Patient Medication Summary Completed 06/13/2014 Appointment: Shalini Walters WPtel: [address] [place], [place] [id number] ACUTE ILLNESS 04/18/2014 Patient Education: Patient Medication Summary Completed 04/18/2014 Visit Plan: Check lab in May then fwup Can try decreasing xanax to 1mg q HS with melatonin 5-10mg q HS 12/05/2013 Appointment: Alexandra Carroll WPtel: [address] [place], [place] [phone] 12/04 FOLLOW UP 12/05/2013 Patient Education: Patient Medication Summary Completed 12/05/2013 Appointment: Alexandra Carroll WPtel: [address] [place], [place] [phone] FOLLOW UP 06/05/2013 Patient Education: Patient Medication Summary Completed 06/05/2013 Appointment: Alexandra Carroll WPtel: [address] [place], [place] [phone] FOLLOW UP 05/22/2013 Patient Education: Patient Medication Summary Completed 05/22/2013 Visit Plan: Zovirax for 2wks Notify if p ain worsens or if persists 04/05/2013 Appointment: Alexandra Carroll WPtel: [address] [place] [address] ACUTE ILLNESS 04/05/2013 Patient Education: Patient Medication Summary Completed 04/05/2013 Visit Plan: Keep Wellbutrin at current d ose Pt did see for counseling 03/26/2013 Appointment: Alexandra Carroll WPtel: [address] [place] [address] ACUTE ILLNESS 03/26/2013 Patient Education: Patient Medication Summary Completed 03/26/2013 Visit Plan: Continue citalopram at curre nt dose Increase xanax to 1-2mg q HS for sleep Add Wellbutrin Sr 100mg q AM Start Counseling 03/06/2013 Appointment: Alexandra Carroll WPtel: [address] [place] [address] ACUTE ILLNESS 03/06/2013 Patient Education: Patient Medication Summary Completed 03/06/2013 Appointment: Alexandra Carroll WPtel: [address] [place] [address] ACUTE ILLNESS 11/29/2012 Patient Education: Patient Medication Summary Completed 11/29/2012 Appointment: Alexandra Carroll WPtel: [address] [place] [address] ACUTE ILLNESS 09/26/2012 Patient Education: Patient Medication Summary Completed 09/26/2012 Appointment: Alexandra Carroll WPtel: [address] [place] [address] ACUTE ILLNESS 07/11/2012 Patient Education: Patient Medication Summary Completed 07/11/2012 Appointment: Alexandra Carroll WPtel: [address] [place] [address] [place] LAB 02/17/2012 Patient Education: Patient Medication Summary Completed 02/17/2012 Visit Plan: Check fasting lab Start annie y ca with Vit D Cont CPAP Mammo up-to-date Hemoccult card given 02/02/2012 Appointment: Alexandra Carroll WPtel: [address] [place] [address] [place] PHYSICAL 02/02/2012 Patient Education: Patient Medication Summary Completed 02/02/2012 Appointment: Alexandra Carroll WPtel: [address] [place] [address] 08/27/2011 Patient Education: Patient Medication Summary Completed 08/27/2011 Visit Plan: Levaquin and Diflucan for 1w k Then cipro QOD for prophylaxis 08/17/2011 Appointment: Alexandra Carroll WPtel: [address] [place] [address] FOLLOW UP 08/17/2011 Patient Education: Patient Medication Summary Completed 08/17/2011 Appointment: Alexandra Carroll WPtel: [address] [place] [address] 12/28/2010 Patient Education: Patient Medication Summary Completed 12/28/2010 Appointment: Alexandra Carroll WPtel: [address] [place] [address] 11/09/2010 Patient Education: Patient Medication Summary Completed 11/09/2010 Appointment: Alexandra Carroll WPtel: [address] [place] [address] 10/29/2010 Patient Education: Patient Medication Summary Completed 10/29/2010 Appointment: Steph Bowen WPtel: [address] [place] [address] ACUTE ILLNESS 10/14/2010 Patient Education: Patient Medication Summary Completed 10/14/2010 Referral: Florian Baig WPtel: [facility] [address] 1 [id number] Referral Initiated Referral: Luis Enrique Jasso WPtel: [facility] [address] 1 [id number] Referral Appointment Requested Referral: Florian Baig WPtel: [facility] [address] 1 [id number] [place] Referral Appointment Requested Referral: Caleb Glaser WPtel: [address] [id number] [place] Referral Appointment Requested Referral: Florian Baig WPtel: [facility] [address], [address] Referral Initiated Referral: Florian Baig WPtel: [facility] [address] Referral Appointment Requested Instructions Comment [...] same robert. If working well, continue the [id number] office visits. Call if not working well, and will restart xanax at HS for sleep. . Removal of lesion above using 3-0 punc h biopsy Return in 10 days for suture removal . Starts PT today Schedule with Dr. Garcia for epidural CT abdomen/pelvis results discussed Sees [facility] in April and will get checked then [...]
--- OUTSIDE RECORDS SUMMARY | 2019-09-02 00:37 | XMS REPORT | CCD ---
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 06/13/2014 Ears/Nose/Throat/Neck No nasal discharge 06/13/2014 Ears/Nose/Throat/Neck No sinus congestion 06/13/2014 Ears/Nose/Throat/Neck No sore throat 06/13/2014 Respiratory No asthma Respiratory No cough Respiratory No dyspnea 0 06/13/2014 Respiratory No pleuritic pain 06/13/2014 Respiratory No productive sputum 06/13/2014 Respiratory No wheezing 06/13/2014 Gastrointestinal No hemorrhoids 06/13/2014 Gastrointestinal No hepatitis 06/13/2014 Gastrointestinal No abdominal pain 06/13/2014 Gastrointestinal No constipation 06/13/2014 Gastrointestinal No diarrhea 06/13/2014 Gastrointestinal No gastroesophageal reflu x 06/13/2014 Gastrointestinal No melena 06/13/2014 Gastrointestinal No nausea 06/13/2014 Gastrointestinal No vomiting 06/13/2014 Genitourinary/Nephrology No dysuria 06/13/2014 Genitourinary/Nephrology No nocturia 06/13/2014 Genitourinary/Nephrology No urinary incontinence 06/13/2014 Musculoskeletal No muscle weakness 06/13/2014 Musculoskeletal No myalgias 06/13/2014 Musculoskeletal No stiffness 06/13/2014 Musculoskeletal No swelling 06/13/2014 Dermatologic No rash Dermatologic No scar Neurologic No dizziness 06/13/2014 Neurologic No headache 0 06/13/2014 Neurologic No neck pain 06/13/2014 Neurologic No syncope Psychiatric No anxiety 0 06/13/2014 Psychiatric No depression 06/13/2014 Endocrine No goiter 05/29 Endocrine No hyperglycemia 06/13/2014 Endocrine No hypoglycemia 06/13/2014 Endocrine hypothyroid Endocrine hyperlipidemia 06/13/2014 Ears/Nose/Throat/Neck headache 04/18/2014 Neurologic No dizziness 04/18/2014 Neurologic headache 03/31 Neurologic No vision change 04/18/2014 Eyes No vision change Eyes photophobia 015 Gastrointestinal nausea 04/18/2014 Gastrointestinal No vomiting 04/18/2014 Constitutional insomnia 12/05/2013 Cardiovascular No arrhythmia 12/05/2013 Cardiovascular No chest pain/pressure 12/05/2013 Cardiovascular No edema 12/05/2013 Cardiovascular No exercise intolerance 12/05/2013 Cardiovascular No orthopnea 12/05/2013 Cardiovascular No palpitations 12/05/2013 Respiratory No asthma Respiratory No cough 09/2013 Respiratory No dyspnea 1 Respiratory No pleuritic pain 12/05/2013 Respiratory No productive sputum 12/05/2013 Respiratory No wheezing 12/05/2013 Gastrointestinal No hemorrhoids 12/05/2013 Gastrointestinal No hepatitis 12/05/2013 Gastrointestinal No abdominal pain 12/05/2013 Gastrointestinal No constipation 12/05/2013 Gastrointestinal No diarrhea 12/05/2013 Gastrointestinal No gastroesophageal reflu x 12/05/2013 Gastrointestinal No melena 12/05/2013 Gastrointestinal No nausea 12/05/2013 Gastrointestinal No vomiting 12/05/2013 Genitourinary/Nephrology No dysuria 12/05/2013 Genitourinary/Nephrology No nocturia 12/05/2013 Genitourinary/Nephrology No urinary incontinence 12/05/2013 Musculoskeletal No muscle weakness 12/05/2013 Musculoskeletal No myalgias 12/05/2013 Musculoskeletal No stiffness 12/05/2013 Musculoskeletal No swelling 12/05/2013 Dermatologic No rash 09/2013 Dermatologic No scar 09/2013 Neurologic No dizziness 12/05/2013 Neurologic No headache 1 Neurologic No neck pain 12/05/2013 Neurologic No syncope Psychiatric No anxiety 1 Psychiatric No depression 12/05/2013 Endocrine No goiter 09/2013 Endocrine No hyperglycemia 12/05/2013 Endocrine No hypoglycemia 12/05/2013 Neurologic dyskinesia or tremor 06/05/2013 Constitutional insomnia 06/05/2013 Constitutional fatigue 0 06/05/2013 Dermatologic rash 2013 Constitutional insomnia 03/26/2013 Psychiatric stress 03/26 Psychiatric anxiety 03/01 Psychiatric depression 0 03/26/2013 Neurologic headache 03/2012 Ears/Nose/Throat/Neck No hearing loss 11/29/2012 Ears/Nose/Throat/Neck No nasal discharge 11/29/2012 Ears/Nose/Throat/Neck No sinus congestion 11/29/2012 Ears/Nose/Throat/Neck No sore throat 11/29/2012 Musculoskeletal neck pain 11/29/2012 Musculoskeletal joint complaint 09/26/2012 Ears/Nose/Throat/Neck jaw pain 09/26/2012 Musculoskeletal shoulder pain 09/26/2012 Gastrointestinal abdominal pain 07/11/2012 Musculoskeletal joint complaint 07/11/2012 Constitutional No night sweats 02/02/2012 Constitutional No fatigue 02/02/2012 Constitutional No fever 02/02/2012 Constitutional No insomnia 02/02/2012 Constitutional No weight loss 02/02/2012 Ears/Nose/Throat/Neck No hearing loss 02/02/2012 Musculoskeletal No muscle weakness 02/02/2012 Musculoskeletal No myalgias 02/02/2012 Musculoskeletal No stiffness 02/02/2012 Musculoskeletal No swelling 02/02/2012 Dermatologic No rash 06/2011 Dermatologic No scar 06/2011 Neurologic No dizziness 02/02/2012 Neurologic No headache 1 04/04/2011 Neurologic No neck pain 02/02/2012 Neurologic No syncope Psychiatric No anxiety 1 04/04/2011 Psychiatric No depression 02/02/2012 Endocrine No goiter 06/2011 Endocrine No hyperglycemia 02/02/2012 Endocrine No hypoglycemia 02/02/2012 Hematologic/Lymphatic No abnormal ec chymoses 02/02/2012 Hematologic/Lymphatic No petechiae 02/02/2012 Hematologic/Lymphatic No abnormal bl eeding and bruising 02/02/2012 Hematologic/Lymphatic No anemia 02/02/2012 Hematologic/Lymphatic No lymph node enlargement/mass 02/02/2012 Ears/Nose/Throat/Neck No nasal discharge 02/02/2012 Ears/Nose/Throat/Neck No sinus congestion 02/02/2012 Ears/Nose/Throat/Neck No sore throat 02/02/2012 Cardiovascular No arrhythmia 02/02/2012 Cardiovascular No chest pain/pressure 02/02/2012 Cardiovascular No edema 02/02/2012 Cardiovascular No exercise intolerance 02/02/2012 Cardiovascular No orthopnea 02/02/2012 Cardiovascular No palpitations 02/02/2012 Respiratory No asthma Respiratory No cough 06/2011 Respiratory No dyspnea 1 04/04/2011 Respiratory No pleuritic pain 02/02/2012 Respiratory No productive sputum 02/02/2012 Respiratory No wheezing 02/02/2012 Gastrointestinal No hemorrhoids 02/02/2012 Gastrointestinal No hepatitis 02/02/2012 Gastrointestinal No abdominal pain 02/02/2012 Gastrointestinal No constipation 02/02/2012 Gastrointestinal No diarrhea 02/02/2012 Gastrointestinal No gastroesophageal reflu x 02/02/2012 Gastrointestinal No melena 02/02/2012 Gastrointestinal No nausea 02/02/2012 Gastrointestinal No vomiting 02/02/2012 Genitourinary/Nephrology No dysuria 02/02/2012 Genitourinary/Nephrology No nocturia 02/02/2012 Genitourinary/Nephrology No urinary incontinence 02/02/2012 Genitourinary/Nephrology dysuria 08/17/2011 Constitutional No fever 10/14/2010 Genitourinary/Nephrology flank pain 10/14/2010 Gastrointestinal abdominal pain 10/14/2010 Dermatologic No rash Dermatologic No sores Ears/Nose/Throat/Neck No otalgia 10/14/2010 Ears/Nose/Throat/Neck No sore throat 10/14/2010 Respiratory No cough Physical Exam Exam Name System Name It em Name Status Result Effective Dates Notes Full Exam - General Constitutional general appearance Overall: well nourished 09/18/2018 None Full Exam - General Constitutional general appearance Overall: well developed 09/18/2018 None Full Exam - General Constitutional general appearance Overall: in no acute distress 09/18/2018 None Full Exam - General Neurologic mental status Overall: alert 9 None Full Exam - General Neurologic mental status Overall: oriented 09/18/2018 None Full Exam - General Psychiatric mood and affect Overall: normal mood and affect 09/18/2018 None Full Exam - General Abdomen abdominal exam Overall: no masses 09/18/2018 None Full Exam - General Abdomen abdominal exam Overall: normal bowel sounds 09/18/2018 None Full Exam - General Abdomen abdominal exam Overall: soft 09/18/2018 None Full Exam - General Abdomen abdominal exam Left lower quadrant: tender to palpa tion 09/18/2018 None Full Exam - General Abdomen abdominal exam Epigastric: tender to palpation 09/18/2018 None Full Exam - General Abdomen abdominal exam Suprapubic: tender to palpation 09/18/2018 None Full Exam - General Constitutional general appearance Overall: well nourished 08/10/2018 None Full Exam - General Constitutional general appearance Overall: well developed 08/10/2018 None Full Exam - General Constitutional general appearance Evidence of Distress: in distress secondary to pain 08/10/2018 None Full Exam - General Respiratory auscultation Overall: breath sounds clear bilater ally 08/10/2018 None Full Exam - General Cardiovascular auscultation of heart Overall: regular rate 08/10/2018 None Full Exam - General Cardiovascular auscultation of heart Overall: normal heart sounds 08/10/2018 None Full Exam - General Cardiovascular auscultation of heart Overall: no murmurs 08/10/2018 None Full Exam - General Neurologic mental status Overall: alert 9 None Full Exam - General Neurologic mental status Overall: oriented 08/10/2018 None Full Exam - General Psychiatric mood and affect Overall: normal mood and affect 08/10/2018 None Full Exam - General Cardiovascular extremities Overall: no clubbing 08/10/2018 None Full Exam - General Cardiovascular extremities Overall: No edema 08/10/2018 None Full Exam - General Cardiovascular extremities Overall: No cyanosis 08/10/2018 None Full Exam - General Musculoskeletal spine, ribs and pelvis Spine: tender @ lumbar spin e 08/10/2018 None Full Exam - General Musculoskeletal spine, ribs and pelvis Sacroiliac joints: tender left sacroiliac joint 08/10/2018 None Full Exam - General Constitutional general appearance Overall: well nourished 03/27/2018 None Full Exam - General Constitutional general appearance Overall: well developed 03/27/2018 None Full Exam - General Constitutional general appearance Overall: in no acute distress 03/27/2018 None Full Exam - General Neurologic mental status Overall: alert 9 None Full Exam - General Neurologic mental status Overall: oriented 03/27/2018 None Full Exam - General Psychiatric mood and affect Overall: normal mood and affect 03/27/2018 None Full Exam - General Constitutional general appearance Overall: well nourished 02/23/2018 None Full Exam - General Constitutional general appearance Overall: well developed 02/23/2018 None Full Exam - General Constitutional general appearance Overall: in no acute distress 02/23/2018 None Full Exam - General Neurologic mental status Overall: alert 8 None Full Exam - General Neurologic mental status Overall: oriented 02/23/2018 None Full Exam - General Psychiatric mood and affect Overall: normal mood and affect 02/23/2018 None Full Exam - General Musculoskeletal left upper extremity Stability - left shoulder: a normal exam 02/23/2018 None Full Exam - General Musculoskeletal left upper extremity ROM - left shoulder: crepitus 02/23/2018 None Full Exam - General Musculoskeletal left upper extremity ROM - left shoulder: pain with external rotation 02/23/2018 None Full Exam - General Musculoskeletal left upper extremity ROM - left shoulder: pain with shoulder extension 02/23/2018 None Full Exam - General Musculoskeletal left upper extremity ROM - left shoulder: decreased shoulder extension 02/23/2018 None Full Exam - General Musculoskeletal spine, ribs and pelvis Spine: tender @ thoracic spine 02/23/2018 left trapezius Full Exam - General Musculoskeletal spine, ribs and pelvis Spine: tender @ cervical spine 02/23/2018 None Full Exam - General Musculoskeletal spine, ribs and pelvis Spine: tender @ lumbar spin e 02/23/2018 None Full Exam - General Constitutional general appearance Overall: well nourished 01/24/2018 None Full Exam - General Constitutional general appearance Overall: well developed 01/24/2018 None Full Exam - General Constitutional general appearance Overall: in no acute distress 01/24/2018 None Full Exam - General Neurologic mental status Overall: alert 8 None Full Exam - General Neurologic mental status Overall: oriented 01/24/2018 None Full Exam - General Psychiatric mood and affect Overall: normal mood and affect 01/24/2018 None Full Exam - General Musculoskeletal spine, ribs and pelvis Spine: tender @ cervical spine 01/24/2018 left lower lateral Full Exam - General Musculoskeletal spine, ribs and pelvis Spine: tender @ thoracic spine 01/24/2018 left trapezius Full Exam - General Musculoskeletal left upper extremity Palpation - left shoulder: glenohumeral joint tenderness 01/24/2018 None Full Exam - General Musculoskeletal left upper extremity ROM - left shoulder: pain with shoulder extension 01/24/2018 None Full Exam - General Musculoskeletal left upper extremity ROM - left shoulder: pain with adduction 01/24/2018 None Full Exam - General Musculoskeletal left upper extremity ROM - left shoulder: pain with abduction 01/24/2018 None Full Exam - General Musculoskeletal left upper extremity ROM - left shoulder: pain with external rotation 01/24/2018 None Full Exam - General Musculoskeletal left upper extremity ROM - left shoulder: pain with internal rotation 01/24/2018 None Full Exam - General Constitutional general appearance Overall: well nourished 01/17/2018 None Full Exam - General Constitutional general appearance Overall: well developed 01/17/2018 None Full Exam - General Constitutional general appearance Overall: in no acute distress 01/17/2018 None Full Exam - General Neurologic mental status Overall: alert 8 None Full Exam - General Neurologic mental status Overall: oriented 01/17/2018 None Full Exam - General Psychiatric mood and affect Overall: normal mood and affect 01/17/2018 None Full Exam - General Constitutional general appearance Overall: well nourished 12/29/2017 None Full Exam - General Constitutional general appearance Overall: well developed 12/29/2017 None Full Exam - General Constitutional general appearance Overall: in no acute distress 12/29/2017 None Full Exam - General Neurologic mental status Overall: alert 8 None Full Exam - General Neurologic mental status Overall: oriented 12/29/2017 None Full Exam - General Psychiatric mood and affect Overall: normal mood and affect 12/29/2017 None Full Exam - General Musculoskeletal spine, ribs and pelvis Spine: tender @ lumbar spin e 12/29/2017 None Full Exam - General Musculoskeletal spine, ribs and pelvis Sacroiliac joints: tender left sacroiliac joint 12/29/2017 None Full Exam - General Abdomen abdominal exam Overall: no masses 12/29/2017 None Full Exam - General Abdomen abdominal exam Overall: no tenderness 12/29/2017 None Full Exam - General Abdomen abdominal exam Overall: normal bowel sounds 12/29/2017 None Full Exam - General Abdomen abdominal exam Overall: soft 12/29/2017 None Full Exam - General Constitutional general appearance Overall: well nourished 12/06/2017 None Full Exam - General Constitutional general appearance Overall: well developed 12/06/2017 None Full Exam - General Constitutional general appearance Overall: in no acute distress 12/06/2017 None Full Exam - General Neurologic mental status Overall: alert 8 None Full Exam - General Neurologic mental status Overall: oriented 12/06/2017 None Full Exam - General Psychiatric mood and affect Overall: normal mood and affect 12/06/2017 None Full Exam - General Constitutional general appearance Assistive Device: braces 12/06/2017 sling to right arm Full Exam - General Integument inspection of skin Location: right hand 12/06/2017 good healed pink tissue t o back of hand Full Exam - General Constitutional general appearance Overall: well nourished 12/01/2017 None Full Exam - General Constitutional general appearance Overall: in no acute distress 12/01/2017 None Full Exam - General Integument inspection of skin Location abdomen 12/01/2017 now has diffuse rash on abdomen from ant ibiotics. Full Exam - General Integument inspection of skin Location: right arm 12/01/2017 redness/swelling much improved. Full Exam - General Neurologic mental status Overall: alert 8 None Full Exam - General Neurologic mental status Overall: oriented 12/01/2017 None Full Exam - General Constitutional general appearance Overall: well nourished 11/30/2017 None Full Exam - General Constitutional general appearance Overall: in no acute distress 11/30/2017 None Full Exam - General Integument inspection of skin Location right arm 11/30/2017 erythema continues to move proximally up forearm but only midly. swelling has improved. Full Exam - General Constitutional general appearance Overall: well nourished 11/29/2017 None Full Exam - General Constitutional general appearance Overall: in no acute distress 11/29/2017 None Full Exam - General Integument inspection of skin Location: right arm 11/29/2017 right hand is less swollen and less eryt hemic however right arm has continued to worsen with redness and pain. Full Exam - General Neurologic mental status Overall: alert 8 None Full Exam - General Neurologic mental status Overall: oriented 11/29/2017 None Full Exam - General Constitutional general appearance Overall: well nourished 11/28/2017 None Full Exam - General Constitutional general appearance Overall: in no acute distress 11/28/2017 None Full Exam - General Integument inspection of skin Location: right hand 11/28/2017 open area to dorsal side of hand that has scant serosanginous drainage. there is also redness/swelling to fingers on right hand as well as midway up the forearm. Full Exam - General Neurologic mental status Overall: alert 8 None Full Exam - General Neurologic mental status Overall: oriented 11/28/2017 None Full Exam - General Constitutional general appearance Overall: well nourished 11/17/2017 None Full Exam - General Constitutional general appearance Overall: well developed 11/17/2017 None Full Exam - General Constitutional general appearance Overall: in no acute distress 11/17/2017 None Full Exam - General Neurologic mental status Overall: alert 8 None Full Exam - General Neurologic mental status Overall: oriented 11/17/2017 None Full Exam - General Psychiatric mood and affect Overall: normal mood and affect 11/17/2017 None Full Exam - General Respiratory auscultation Overall: breath sounds clear bilater ally 11/17/2017 None Full Exam - General Cardiovascular auscultation of heart Overall: regular rate 11/17/2017 None Full Exam - General Cardiovascular auscultation of heart Overall: normal heart sounds 11/17/2017 None Full Exam - General Cardiovascular auscultation of heart Overall: no murmurs 11/17/2017 None Full Exam - General Musculoskeletal spine, ribs and pelvis Sacroiliac joints: tender right sacroiliac joint 11/17/2017 None Full Exam - General Musculoskeletal spine, ribs and pelvis Sacroiliac joints: tender left sacroiliac joint 11/17/2017 None Full Exam - General Musculoskeletal spine, ribs and pelvis Spine: tender @ lumbar spin e 11/17/2017 None Full Exam - General Constitutional general appearance Overall: well nourished 10/10/2017 None Full Exam - General Constitutional general appearance Overall: in no acute distress 10/10/2017 None Full Exam - General Cardiovascular auscultation of heart Overall: regular rate 10/10/2017 None Full Exam - General Cardiovascular auscultation of heart Overall: no murmurs 10/10/2017 None Full Exam - General Respiratory respiratory effort/rhythm Overall: no retractions 10/10/2017 None Full Exam - General Respiratory respiratory effort/rhythm Overall: normal rate 10/10/2017 None Full Exam - General Respiratory auscultation Overall: breath sounds clear bilater ally 10/10/2017 None Full Exam - General Musculoskeletal spine, ribs and pelvis Sacroiliac joints: tender right sacroiliac joint 10/10/2017 None Full Exam - General Musculoskeletal gait and station Overall: normal gait 10/10/2017 None Full Exam - General Musculoskeletal gait and station Overall: normal station 10/10/2017 None Full Exam - General Abdomen abdominal exam Overall: no tenderness 10/10/2017 None Full Exam - General Abdomen abdominal exam Overall: soft 10/10/2017 None Full Exam - General Abdomen abdominal exam Overall: no masses 10/10/2017 None Full Exam - General Abdomen abdominal exam Overall: normal bowel sounds 10/10/2017 None Full Exam - General Neurologic mental status Overall: alert 8 None Full Exam - General Neurologic mental status Overall: oriented 10/10/2017 None Full Exam - General Constitutional general appearance Overall: well nourished 06/22/2017 None Full Exam - General Constitutional general appearance Overall: well developed 06/22/2017 None Full Exam - General Constitutional general appearance Overall: in no acute distress 06/22/2017 None Full Exam - General Neurologic mental status Overall: alert 8 None Full Exam - General Neurologic mental status Overall: oriented 06/22/2017 None Full Exam - General Psychiatric mood and affect Overall: normal mood and affect 06/22/2017 None Full Exam - General Ears/Nose/Throat otoscopic exam Overall: external auditory canals clear 06/22/2017 None Full Exam - General Ears/Nose/Throat otoscopic exam Overall: tympanic membranes clear 06/22/2017 None Full Exam - General Ears/Nose/Throat internal nose Overall: bilateral nasal cavities clear 06/22/2017 None Full Exam - General Ears/Nose/Throat oral cavity/pharynx/larynx Overall: oral mucosa clear 06/22/2017 None Full Exam - General Neck inspection of neck Overall: normal size 06/22/2017 None Full Exam - General Neck inspection of neck Overall: no masses 06/22/2017 None Full Exam - General Respiratory auscultation Overall: breath sounds clear bilater ally 06/22/2017 None Full Exam - General Cardiovascular auscultation of heart Overall: regular rate 06/22/2017 None Full Exam - General Cardiovascular auscultation of heart Overall: normal heart sounds 06/22/2017 None Full Exam - General Cardiovascular auscultation of heart Overall: no murmurs 06/22/2017 None Full Exam - General Cardiovascular extremities Overall: no clubbing 06/22/2017 None Full Exam - General Cardiovascular extremities Overall: No edema 06/22/2017 None Full Exam - General Cardiovascular extremities Overall: No cyanosis 06/22/2017 None Full Exam - General Abdomen abdominal exam Overall: no masses 06/22/2017 None Full Exam - General Abdomen abdominal exam Overall: no tenderness 06/22/2017 None Full Exam - General Abdomen abdominal exam Overall: normal bowel sounds 06/22/2017 None Full Exam - General Abdomen abdominal exam Overall: soft 06/22/2017 None Full Exam - General Musculoskeletal gait and station Overall: normal gait 06/22/2017 None Full Exam - General Musculoskeletal spine, ribs and pelvis Spine: tender @ lumbar spin e 06/22/2017 None Full Exam - General Constitutional general appearance Overall: well nourished 03/28/2017 None Full Exam - General Constitutional general appearance Overall: well developed 03/28/2017 None Full Exam - General Constitutional general appearance Overall: in no acute distress 03/28/2017 None Full Exam - General Ears/Nose/Throat otoscopic exam Overall: external auditory canals clear 03/28/2017 None Full Exam - General Ears/Nose/Throat otoscopic exam Overall: tympanic membranes clear 03/28/2017 None Full Exam - General Ears/Nose/Throat internal nose Drainage: clear 03/28/2017 None Full Exam - General Ears/Nose/Throat oral cavity/pharynx/larynx Oropharynx: erythema 03/28/2017 None Full Exam - General Respiratory auscultation Overall: breath sounds clear bilater ally 03/28/2017 None Full Exam - General Neurologic mental status Overall: alert 8 None Full Exam - General Neurologic mental status Overall: oriented 03/28/2017 None Full Exam - General Psychiatric mood and affect Overall: normal mood and affect 03/28/2017 None Full Exam - General Cardiovascular auscultation of heart Overall: regular rate 03/28/2017 None Full Exam - General Cardiovascular auscultation of heart Overall: normal heart sounds 03/28/2017 None Full Exam - General Cardiovascular auscultation of heart Overall: no murmurs 03/28/2017 None Full Exam - General Constitutional general appearance Overall: well nourished 02/16/2017 None Full Exam - General Constitutional general appearance Overall: in no acute distress 02/16/2017 None Full Exam - General Ears/Nose/Throat otoscopic exam Left tympanic membrane: air- fluid level 02/16/2017 None Full Exam - General Ears/Nose/Throat otoscopic exam Right tympanic membrane: air- fluid level 02/16/2017 None Full Exam - General Ears/Nose/Throat oral cavity/pharynx/larynx Overall: oral mucosa clear 02/16/2017 None Full Exam - General Ears/Nose/Throat oral cavity/pharynx/larynx Posterior Pharynx: clear post nasal drainage 02/16/2017 None Full Exam - General Ears/Nose/Throat internal nose Turbinates: erythema 02/16/2017 None Full Exam - General Ears/Nose/Throat internal nose Turbinates: bilateral edema 02/16/2017 None Full Exam - General Ears/Nose/Throat internal nose Drainage: cloudy 02/16/2017 None Full Exam - General Ears/Nose/Throat internal nose Sinus tenderness: right maxillary 02/16/2017 None Full Exam - General Respiratory percussion Overall: benign percussion 02/16/2017 None Full Exam - General Respiratory respiratory effort/rhythm Overall: no retractions 02/16/2017 None Full Exam - General Respiratory respiratory effort/rhythm Overall: normal rate 02/16/2017 None Full Exam - General Respiratory auscultation Overall: breath sounds clear bilater ally 02/16/2017 None Full Exam - General Cardiovascular auscultation of heart Overall: regular rate 02/16/2017 None Full Exam - General Cardiovascular auscultation of heart Overall: no murmurs 02/16/2017 None Full Exam - General Lymphatic neck nodes Overall: anterior cervical chain len ign 02/16/2017 None Full Exam - General Lymphatic neck nodes Overall: posterior cervical chain be nign 02/16/2017 None Full Exam - General Neurologic mental status Overall: alert 7 None Full Exam - General Neurologic mental status Overall: oriented 02/16/2017 None Full Exam - General Constitutional general appearance Overall: well nourished 09/06/2016 None Full Exam - General Constitutional general appearance Overall: well developed 09/06/2016 None Full Exam - General Constitutional general appearance Overall: in no acute distress 09/06/2016 None Full Exam - General Neurologic mental status Overall: alert 7 None Full Exam - General Neurologic mental status Overall: oriented 09/06/2016 None Full Exam - General Psychiatric mood and affect Overall: normal mood and affect 09/06/2016 None Full Exam - General Abdomen abdominal exam Overall: no masses 09/06/2016 None Full Exam - General Abdomen abdominal exam Overall: no tenderness 09/06/2016 None Full Exam - General Abdomen abdominal exam Overall: normal bowel sounds 09/06/2016 None Full Exam - General Abdomen abdominal exam Overall: soft 09/06/2016 None Full Exam - General Musculoskeletal spine, ribs and pelvis Ribs: asymmetric 09/06/2016 with left lower anterior rib tenderness with overlying lipoma Full Exam - General Musculoskeletal spine, ribs and pelvis Spine: tender @ thoracic spine 09/06/2016 left medial scapular area in ribs Full Exam - General Constitutional general appearance Overall: well nourished 08/16/2016 None Full Exam - General Constitutional general appearance Overall: well developed 08/16/2016 None Full Exam - General Constitutional general appearance Overall: in no acute distress 08/16/2016 None Full Exam - General Ears/Nose/Throat otoscopic exam Overall: external auditory canals clear 08/16/2016 None Full Exam - General Ears/Nose/Throat otoscopic exam Overall: tympanic membranes clear 08/16/2016 dull bilat Full Exam - General Ears/Nose/Throat internal nose Turbinates: erythema 08/16/2016 None Full Exam - General Ears/Nose/Throat internal nose Turbinates: bilateral edema 08/16/2016 None Full Exam - General Ears/Nose/Throat internal nose Sinus tenderness: left frontal 08/16/2016 mild Full Exam - General Ears/Nose/Throat internal nose Sinus tenderness: right frontal 08/16/2016 mild Full Exam - General Ears/Nose/Throat internal nose Sinus tenderness: left maxillary 08/16/2016 marked Full Exam - General Ears/Nose/Throat internal nose Sinus tenderness: right maxillary 08/16/2016 marked Full Exam - General Ears/Nose/Throat oral cavity/pharynx/larynx Oropharynx: a normal exam 08/16/2016 None Full Exam - General Respiratory auscultation Overall: breath sounds clear bilater ally 08/16/2016 None Full Exam - General Cardiovascular auscultation of heart Overall: regular rate 08/16/2016 None Full Exam - General Cardiovascular auscultation of heart Overall: normal heart sounds 08/16/2016 None Full Exam - General Cardiovascular auscultation of heart Overall: no murmurs 08/16/2016 None Full Exam - General Neurologic mental status Overall: alert 7 None Full Exam - General Neurologic mental status Overall: oriented 08/16/2016 None Full Exam - General Constitutional general appearance Overall: well nourished 07/19/2016 None Full Exam - General Constitutional general appearance Overall: well developed 07/19/2016 None Full Exam - General Constitutional general appearance Overall: in no acute distress 07/19/2016 None Full Exam - General Neurologic mental status Overall: alert 7 None Full Exam - General Neurologic mental status Overall: oriented 07/19/2016 None Full Exam - General Psychiatric mood and affect Overall: normal mood and affect 07/19/2016 None Full Exam - General Constitutional general appearance Overall: well nourished 07/06/2016 None Full Exam - General Constitutional general appearance Overall: well developed 07/06/2016 None Full Exam - General Constitutional general appearance Overall: in no acute distress 07/06/2016 None Full Exam - General Neurologic mental status Overall: alert 7 None Full Exam - General Neurologic mental status Overall: oriented 07/06/2016 None Full Exam - General Psychiatric mood and affect Overall: normal mood and affect 07/06/2016 None Full Exam - General Ears/Nose/Throat otoscopic exam Overall: external auditory canals clear 07/06/2016 None Full Exam - General Ears/Nose/Throat otoscopic exam Overall: tympanic membranes clear 07/06/2016 None Full Exam - General Ears/Nose/Throat internal nose Turbinates: hypertrophy 07/06/2016 None Full Exam - General Ears/Nose/Throat oral cavity/pharynx/larynx Overall: oral mucosa clear 07/06/2016 None Full Exam - General Respiratory auscultation Overall: breath sounds clear bilater ally 07/06/2016 None Full Exam - General Cardiovascular auscultation of heart Overall: regular rate 07/06/2016 None Full Exam - General Cardiovascular auscultation of heart Overall: normal heart sounds 07/06/2016 None Full Exam - General Cardiovascular auscultation of heart Overall: no murmurs 07/06/2016 None Full Exam - General Constitutional general appearance Overall: well nourished 06/15/2016 None Full Exam - General Constitutional general appearance Overall: well developed 06/15/2016 None Full Exam - General Constitutional general appearance Overall: in no acute distress 06/15/2016 None Full Exam - General Ears/Nose/Throat otoscopic exam Overall: external auditory canals clear 06/15/2016 None Full Exam - General Ears/Nose/Throat otoscopic exam Left tympanic membrane: air- fluid level 06/15/2016 None Full Exam - General Ears/Nose/Throat otoscopic exam Right tympanic membrane: air- fluid level 06/15/2016 None Full Exam - General Ears/Nose/Throat internal nose Turbinates: erythema 06/15/2016 None Full Exam - General Ears/Nose/Throat internal nose Turbinates: hypertrophy 06/15/2016 None Full Exam - General Ears/Nose/Throat internal nose Drainage: cloudy 06/15/2016 None Full Exam - General Ears/Nose/Throat oral cavity/pharynx/larynx Oropharynx: postnasal drainage 06/15/2016 None Full Exam - General Neck inspection of neck Overall: normal size 06/15/2016 None Full Exam - General Neck inspection of neck Overall: no masses 06/15/2016 None Full Exam - General Respiratory auscultation Overall: breath sounds clear bilater ally 06/15/2016 None Full Exam - General Cardiovascular auscultation of heart Overall: regular rate 06/15/2016 None Full Exam - General Cardiovascular auscultation of heart Overall: normal heart sounds 06/15/2016 None Full Exam - General Cardiovascular auscultation of heart Overall: no murmurs 06/15/2016 None Full Exam - General Lymphatic neck nodes Left anterior cervical chain: shotty 06/15/2016 None Full Exam - General Lymphatic neck nodes Left anterior cervical chain: tender 06/15/2016 None Full Exam - General Lymphatic neck nodes Right anterior cervical chain: shott y 06/15/2016 None Full Exam - General Lymphatic neck nodes Right anterior cervical chain: tende r 06/15/2016 None Full Exam - General Neurologic mental status Overall: alert 7 None Full Exam - General Neurologic mental status Overall: oriented 06/15/2016 None Full Exam - General Psychiatric mood and affect Overall: normal mood and affect 06/15/2016 None Full Exam - General Constitutional general appearance Overall: well nourished 04/09/2016 None Full Exam - General Constitutional general appearance Overall: in no acute distress 04/09/2016 None Full Exam - General Constitutional general appearance Overall: well developed 04/09/2016 None Full Exam - General Eyes conjunctiva/eyelids Overall: conjunctiva clear 04/09/2016 None Full Exam - General Ears/Nose/Throat external ear Overall: normal appearance 04/09/2016 None Full Exam - General Ears/Nose/Throat external nose Overall: benign appearance 04/09/2016 None Full Exam - General Ears/Nose/Throat otoscopic exam Overall: external auditory canals clear 04/09/2016 None Full Exam - General Ears/Nose/Throat otoscopic exam Left tympanic membrane: air- fluid level 04/09/2016 None Full Exam - General Ears/Nose/Throat otoscopic exam Right tympanic membrane: air- fluid level 04/09/2016 None Full Exam - General Ears/Nose/Throat otoscopic exam Otorrhea: absent 04/09/2016 None Full Exam - General Ears/Nose/Throat otoscopic exam Perforation: absent 04/09/2016 None Full Exam - General Ears/Nose/Throat internal nose Left nasal cavity: mucosal edema 04/09/2016 None Full Exam - General Ears/Nose/Throat internal nose Right nasal cavity: mucosal edema 04/09/2016 None Full Exam - General Ears/Nose/Throat internal nose Sinus tenderness: absent 04/09/2016 None Full Exam - General Ears/Nose/Throat lips/teeth/gingiva Overall: benign lips 04/09/2016 None Full Exam - General Ears/Nose/Throat oral cavity/pharynx/larynx Overall: oral mucosa clear 04/09/2016 None Full Exam - General Respiratory respiratory effort/rhythm Overall: no retractions 04/09/2016 None Full Exam - General Respiratory respiratory effort/rhythm Overall: normal rate 04/09/2016 None Full Exam - General Eyes pupils and irises Overall: pupils equal, round, reacti ve to light and accomodation 04/09/2016 None Full Exam - General Lymphatic neck nodes Overall: anterior cervical chain len ign 04/09/2016 None Full Exam - General Lymphatic neck nodes Overall: posterior cervical chain be nign 04/09/2016 None Full Exam - General Integument inspection of skin Overall: no rash, lesions 04/09/2016 None Full Exam - General Neurologic deep tendon reflexes Left (graded 0-4+ with 2+ being normal): biceps: 2 04/09/2016 Non e Full Exam - General Neurologic deep tendon reflexes Right (graded 0-4+ with 2+ being normal) : biceps: 2 04/09/2016 Non e Full Exam - General Neurologic mental status Overall: alert 7 None Full Exam - General Neurologic mental status Overall: oriented 04/09/2016 None Full Exam - General Neurologic gait Overall: no ataxia, no unsteadiness 04/09/2016 None Full Exam - General Neurologic cranial nerves Overall: cranial nerves 1-12 intact 04/09/2016 grossly intact Full Exam - General Neurologic motor Overall: normal bulk, tone 04/09/2016 None Full Exam - General Constitutional general appearance Overall: well nourished 03/17/2016 None Full Exam - General Constitutional general appearance Overall: well developed 03/17/2016 None Full Exam - General Constitutional general appearance Overall: in no acute distress 03/17/2016 None Full Exam - General Neurologic mental status Overall: alert 7 None Full Exam - General Neurologic mental status Overall: oriented 03/17/2016 None Full Exam - General Psychiatric mood and affect Overall: normal mood and affect 03/17/2016 None Full Exam - General Respiratory auscultation Overall: breath sounds clear bilater ally 03/17/2016 None Full Exam - General Cardiovascular auscultation of heart Overall: regular rate 03/17/2016 None Full Exam - General Cardiovascular auscultation of heart Overall: normal heart sounds 03/17/2016 None Full Exam - General Cardiovascular auscultation of heart S3 (ventricular gallop): present 03/17/2016 None Full Exam - General Cardiovascular extremities Overall: no clubbing 03/17/2016 None Full Exam - General Cardiovascular extremities Overall: No edema 03/17/2016 None Full Exam - General Cardiovascular extremities Overall: No cyanosis 03/17/2016 None Full Exam - General Neck inspection of neck Overall: normal size 03/17/2016 None Full Exam - General Neck inspection of neck Overall: no masses 03/17/2016 None Full Exam - General Ears/Nose/Throat otoscopic exam Overall: external auditory canals clear 03/17/2016 None Full Exam - General Ears/Nose/Throat otoscopic exam Overall: tympanic membranes clear 03/17/2016 None Full Exam - General Ears/Nose/Throat internal nose Overall: bilateral nasal cavities clear 03/17/2016 None Full Exam - General Ears/Nose/Throat oral cavity/pharynx/larynx Overall: oral mucosa clear 03/17/2016 None Full Exam - General Abdomen abdominal exam Overall: no masses 03/17/2016 None Full Exam - General Abdomen abdominal exam Overall: no tenderness 03/17/2016 None Full Exam - General Abdomen abdominal exam Overall: normal bowel sounds 03/17/2016 None Full Exam - General Abdomen abdominal exam Overall: soft 03/17/2016 None Full Exam - General Constitutional general appearance Overall: well nourished 11/13/2015 None Full Exam - General Constitutional general appearance Overall: well developed 11/13/2015 None Full Exam - General Constitutional general appearance Overall: in no acute distress 11/13/2015 None Full Exam - General Eyes conjunctiva/eyelids Overall: conjunctiva clear 11/13/2015 None Full Exam - General Ears/Nose/Throat lips/teeth/gingiva Overall: benign lips 11/13/2015 None Full Exam - General Ears/Nose/Throat oral cavity/pharynx/larynx Overall: oral mucosa clear 11/13/2015 None Full Exam - General Ears/Nose/Throat oral cavity/pharynx/larynx Overall: oropharyngeal mucosa clear 11/13/2015 None Full Exam - General Respiratory auscultation Overall: breath sounds clear bilater ally 11/13/2015 None Full Exam - General Respiratory respiratory effort/rhythm Overall: no retractions 11/13/2015 None Full Exam - General Respiratory respiratory effort/rhythm Overall: normal rate 11/13/2015 None Full Exam - General Cardiovascular auscultation of heart Overall: regular rate 11/13/2015 None Full Exam - General Cardiovascular auscultation of heart Overall: normal heart sounds 11/13/2015 None Full Exam - General Cardiovascular inspection of pedal pulses Overall: strong, equal bilaterally 11/13/2015 None Full Exam - General Cardiovascular extremities Overall: no clubbing 11/13/2015 None Full Exam - General Cardiovascular extremities Overall: No edema 11/13/2015 None Full Exam - General Cardiovascular extremities Overall: No cyanosis 11/13/2015 None Full Exam - General Integument inspection of skin Overall: no rash, lesions 11/13/2015 None Full Exam - General Neurologic mental status Overall: alert 6 None Full Exam - General Neurologic mental status Overall: oriented 11/13/2015 None Full Exam - General Constitutional general appearance Overall: well nourished 06/12/2015 None Full Exam - General Constitutional general appearance Overall: well developed 06/12/2015 None Full Exam - General Constitutional general appearance Overall: in no acute distress 06/12/2015 None Full Exam - General Neurologic mental status Overall: alert 6 None Full Exam - General Neurologic mental status Overall: oriented 06/12/2015 None Full Exam - General Integument inspection of skin Location: back 06/12/2015 lower middle back with 3mm black nevi Full Exam - General Constitutional general appearance Overall: well nourished 04/22/2015 None Full Exam - General Constitutional general appearance Overall: well developed 04/22/2015 None Full Exam - General Constitutional general appearance Overall: in no acute distress 04/22/2015 None Full Exam - General Neurologic mental status Overall: alert 6 None Full Exam - General Neurologic mental status Overall: oriented 04/22/2015 None Full Exam - General Psychiatric mood and affect Overall: normal mood and affect 04/22/2015 None Full Exam - General Respiratory auscultation Overall: breath sounds clear bilater ally 04/22/2015 None Full Exam - General Cardiovascular auscultation of heart Overall: regular rate 04/22/2015 None Full Exam - General Cardiovascular auscultation of heart Overall: normal heart sounds 04/22/2015 None Full Exam - General Cardiovascular auscultation of heart Overall: no murmurs 04/22/2015 None Full Exam - General Abdomen abdominal exam Overall: no masses 04/22/2015 None Full Exam - General Abdomen abdominal exam Overall: no tenderness 04/22/2015 None Full Exam - General Abdomen abdominal exam Overall: normal bowel sounds 04/22/2015 None Full Exam - General Abdomen abdominal exam Overall: soft 04/22/2015 None Full Exam - General Constitutional general appearance Overall: well nourished 03/24/2015 None Full Exam - General Constitutional general appearance Overall: well developed 03/24/2015 None Full Exam - General Constitutional general appearance Overall: in no acute distress 03/24/2015 None Full Exam - General Musculoskeletal spine, ribs and pelvis Spine: tender @ lumbar spin e 03/24/2015 None Full Exam - General Neurologic mental status Overall: alert 6 None Full Exam - General Neurologic mental status Overall: oriented 03/24/2015 None Full Exam - General Psychiatric mood and affect Overall: normal mood and affect 03/24/2015 None Full Exam - General Abdomen abdominal exam Overall: no masses 03/24/2015 None Full Exam - General Abdomen abdominal exam Overall: normal bowel sounds 03/24/2015 None Full Exam - General Abdomen abdominal exam Overall: soft 03/24/2015 None Full Exam - General Musculoskeletal gait and station Gait: antalgic 03/24/2015 None Full Exam - General Musculoskeletal gait and station Station: pelvic tilt 03/24/2015 None Full Exam - General Musculoskeletal gait and station Station: scoliosis 03/24/2015 None Full Exam - General Constitutional general appearance Overall: well nourished 02/27/2015 None Full Exam - General Constitutional general appearance Overall: well developed 02/27/2015 None Full Exam - General Constitutional general appearance Overall: in no acute distress 02/27/2015 None Full Exam - General Ears/Nose/Throat otoscopic exam Overall: external auditory canals clear 02/27/2015 None Full Exam - General Ears/Nose/Throat otoscopic exam Left tympanic membrane: air- fluid level 02/27/2015 None Full Exam - General Ears/Nose/Throat otoscopic exam Right tympanic membrane: air- fluid level 02/27/2015 None Full Exam - General Ears/Nose/Throat internal nose Turbinates: erythema 02/27/2015 None Full Exam - General Ears/Nose/Throat internal nose Turbinates: hypertrophy 02/27/2015 None Full Exam - General Ears/Nose/Throat internal nose Drainage: cloudy 02/27/2015 None Full Exam - General Ears/Nose/Throat oral cavity/pharynx/larynx Oropharynx: postnasal drainage 02/27/2015 None Full Exam - General Neck inspection of neck Overall: normal size 02/27/2015 None Full Exam - General Neck inspection of neck Overall: no masses 02/27/2015 None Full Exam - General Respiratory auscultation Overall: breath sounds clear bilater ally 02/27/2015 None Full Exam - General Cardiovascular auscultation of heart Overall: regular rate 02/27/2015 None Full Exam - General Cardiovascular auscultation of heart Overall: normal heart sounds 02/27/2015 None Full Exam - General Cardiovascular auscultation of heart Overall: no murmurs 02/27/2015 None Full Exam - General Lymphatic neck nodes Left anterior cervical chain: shotty 02/27/2015 None Full Exam - General Lymphatic neck nodes Left anterior cervical chain: tender 02/27/2015 None Full Exam - General Lymphatic neck nodes Right anterior cervical chain: shott y 02/27/2015 None Full Exam - General Lymphatic neck nodes Right anterior cervical chain: tende r 02/27/2015 None Full Exam - General Neurologic mental status Overall: alert 5 None Full Exam - General Neurologic mental status Overall: oriented 02/27/2015 None Full Exam - General Psychiatric mood and affect Overall: normal mood and affect 02/27/2015 None Full Exam - General Abdomen abdominal exam Overall: no masses 02/27/2015 None Full Exam - General Abdomen abdominal exam Overall: normal bowel sounds 02/27/2015 None Full Exam - General Abdomen abdominal exam Overall: soft 02/27/2015 None Full Exam - General Abdomen abdominal exam Left lower quadrant: tender to palpa tion 02/27/2015 mild Full Exam - General Constitutional general appearance Overall: well nourished 06/13/2014 None Full Exam - General Constitutional general appearance Overall: well developed 06/13/2014 None Full Exam - General Constitutional general appearance Overall: in no acute distress 06/13/2014 None Full Exam - General Neurologic mental status Overall: alert 5 None Full Exam - General Neurologic mental status Overall: oriented 06/13/2014 None Full Exam - General Psychiatric mood and affect Overall: normal mood and affect 06/13/2014 None Full Exam - General Respiratory auscultation Overall: breath sounds clear bilater ally 06/13/2014 None Full Exam - General Cardiovascular auscultation of heart Overall: regular rate 06/13/2014 None Full Exam - General Cardiovascular auscultation of heart Overall: normal heart sounds 06/13/2014 None Full Exam - General Cardiovascular auscultation of heart Overall: no murmurs 06/13/2014 None Full Exam - General Cardiovascular extremities Overall: no clubbing 06/13/2014 None Full Exam - General Cardiovascular extremities Overall: No edema 06/13/2014 None Full Exam - General Cardiovascular extremities Overall: No cyanosis 06/13/2014 None Full Exam - General Neck inspection of neck Overall: normal size 06/13/2014 None Full Exam - General Neck inspection of neck Overall: no masses 06/13/2014 None Full Exam - General Ears/Nose/Throat otoscopic exam Overall: external auditory canals clear 06/13/2014 None Full Exam - General Ears/Nose/Throat otoscopic exam Overall: tympanic membranes clear 06/13/2014 None Full Exam - General Ears/Nose/Throat internal nose Overall: bilateral nasal cavities clear 06/13/2014 None Full Exam - General Ears/Nose/Throat oral cavity/pharynx/larynx Overall: oral mucosa clear 06/13/2014 None Full Exam - General Abdomen abdominal exam Overall: no masses 06/13/2014 None Full Exam - General Abdomen abdominal exam Overall: no tenderness 06/13/2014 None Full Exam - General Abdomen abdominal exam Overall: normal bowel sounds 06/13/2014 None Full Exam - General Abdomen abdominal exam Overall: soft 06/13/2014 None Full Exam - General Cardiovascular inspection of pedal pulses Left dorsalis pedis: a normal exam 06/13/2014 None Full Exam - General Cardiovascular inspection of pedal pulses Right dorsalis pedis: a normal exam 06/13/2014 None Full Exam - General Cardiovascular inspection of pedal pulses Left posterior tibial pulse: a normal exam 06/13/2014 None Full Exam - General Cardiovascular inspection of pedal pulses Right posterior tibial pulse: a normal exam 06/13/2014 None Full Exam - General Constitutional general appearance Overall: in no acute distress 04/18/2014 None Full Exam - General Constitutional general appearance Overall: well developed 04/18/2014 None Full Exam - General Constitutional general appearance Overall: well nourished 04/18/2014 None Full Exam - General Musculoskeletal head and neck Cervical Spine: a normal exam 04/18/2014 None Full Exam - General Ears/Nose/Throat otoscopic exam Left tympanic membrane: air- fluid level 04/18/2014 None Full Exam - General Ears/Nose/Throat otoscopic exam Right tympanic membrane: air- fluid level 04/18/2014 None Full Exam - General Ears/Nose/Throat oral cavity/pharynx/larynx Overall: oral mucosa clear 04/18/2014 None Full Exam - General Ears/Nose/Throat oral cavity/pharynx/larynx Posterior Pharynx: a normal exam 04/18/2014 None Full Exam - General Respiratory auscultation Overall: breath sounds clear bilater ally 04/18/2014 None Full Exam - General Cardiovascular auscultation of heart Overall: regular rate 04/18/2014 None Full Exam - General Cardiovascular auscultation of heart Overall: normal heart sounds 04/18/2014 None Full Exam - General Cardiovascular auscultation of heart Overall: no murmurs 04/18/2014 None Full Exam - General Constitutional general appearance Overall: well nourished 12/05/2013 None Full Exam - General Constitutional general appearance Overall: well developed 12/05/2013 None Full Exam - General Constitutional general appearance Overall: in no acute distress 12/05/2013 None Full Exam - General Neurologic mental status Overall: alert 4 None Full Exam - General Neurologic mental status Overall: oriented 12/05/2013 None Full Exam - General Psychiatric mood and affect Overall: normal mood and affect 12/05/2013 None Full Exam - General Respiratory auscultation Overall: breath sounds clear bilater ally 12/05/2013 None Full Exam - General Cardiovascular auscultation of heart Overall: regular rate 12/05/2013 None Full Exam - General Cardiovascular auscultation of heart Overall: normal heart sounds 12/05/2013 None Full Exam - General Cardiovascular auscultation of heart Overall: no murmurs 12/05/2013 None Full Exam - General Cardiovascular extremities Overall: no clubbing 12/05/2013 None Full Exam - General Cardiovascular extremities Overall: No edema 12/05/2013 None Full Exam - General Cardiovascular extremities Overall: No cyanosis 12/05/2013 None Full Exam - General Constitutional general appearance Overall: well nourished 06/05/2013 None Full Exam - General Constitutional general appearance Overall: well developed 06/05/2013 None Full Exam - General Constitutional general appearance Overall: in no acute distress 06/05/2013 None Full Exam - General Neurologic mental status Overall: alert 4 None Full Exam - General Neurologic mental status Overall: oriented 06/05/2013 None Full Exam - General Respiratory auscultation Overall: breath sounds clear bilater ally 06/05/2013 None Full Exam - General Cardiovascular auscultation of heart Overall: regular rate 06/05/2013 None Full Exam - General Cardiovascular auscultation of heart Overall: normal heart sounds 06/05/2013 None Full Exam - General Cardiovascular auscultation of heart S3 (ventricular gallop): present 06/05/2013 None Full Exam - General Cardiovascular extremities Overall: no clubbing 06/05/2013 None Full Exam - General Cardiovascular extremities Overall: No edema 06/05/2013 None Full Exam - General Cardiovascular extremities Overall: No cyanosis 06/05/2013 None Full Exam - General Psychiatric mood and affect Overall: normal mood and affect 06/05/2013 None Full Exam - General Ears/Nose/Throat otoscopic exam Overall: external auditory canals clear 06/05/2013 None Full Exam - General Ears/Nose/Throat otoscopic exam Overall: tympanic membranes clear 06/05/2013 None Full Exam - General Ears/Nose/Throat internal nose Turbinates: hypertrophy 06/05/2013 None Full Exam - General Ears/Nose/Throat oral cavity/pharynx/larynx Overall: oral mucosa clear 06/05/2013 None Full Exam - General Constitutional general appearance Overall: well nourished 05/22/2013 None Full Exam - General Constitutional general appearance Overall: well developed 05/22/2013 None Full Exam - General Constitutional general appearance Overall: in no acute distress 05/22/2013 None Full Exam - General Neurologic mental status Overall: alert 4 None Full Exam - General Neurologic mental status Overall: oriented 05/22/2013 None Full Exam - General Psychiatric mood and affect Mood: depressed 05/22/2013 None Full Exam - General Psychiatric mood and affect Affect: blunted 05/22/2013 None Full Exam - General Constitutional general appearance Overall: well nourished 04/05/2013 None Full Exam - General Constitutional general appearance Overall: well developed 04/05/2013 None Full Exam - General Constitutional general appearance Overall: in no acute distress 04/05/2013 None Full Exam - General Neurologic mental status Overall: alert 4 None Full Exam - General Neurologic mental status Overall: oriented 04/05/2013 None Full Exam - General Psychiatric mood and affect Overall: normal mood and affect 04/05/2013 None Full Exam - General Integument inspection of skin Location: abdomen 04/05/2013 right upper abdomen spreading to side an d back around dermatome with erythemic ulcers Full Exam - General Constitutional general appearance Overall: well nourished 03/26/2013 None Full Exam - General Constitutional general appearance Overall: well developed 03/26/2013 None Full Exam - General Constitutional general appearance Evidence of Distress: tearful 03/26/2013 None Full Exam - General Neurologic mental status Overall: alert 4 None Full Exam - General Neurologic mental status Overall: oriented 03/26/2013 None Full Exam - General Psychiatric mood and affect Mood: depressed 03/26/2013 None Full Exam - General Psychiatric mood and affect Affect: constricted 03/26/2013 None Full Exam - General Psychiatric mood and affect Affect: flat 03/26/2013 None Full Exam - General Constitutional general appearance Overall: well nourished 03/06/2013 None Full Exam - General Constitutional general appearance Overall: well developed 03/06/2013 None Full Exam - General Neurologic mental status Overall: alert 4 None Full Exam - General Neurologic mental status Overall: oriented 03/06/2013 None Full Exam - General Psychiatric mood and affect Overall: normal mood and affect 03/06/2013 None Full Exam - General Constitutional general appearance Evidence of Distress: tearful 03/06/2013 None Full Exam - General Constitutional general appearance Overall: well nourished 11/29/2012 None Full Exam - General Constitutional general appearance Overall: well developed 11/29/2012 None Full Exam - General Constitutional general appearance Overall: in no acute distress 11/29/2012 None Full Exam - General Musculoskeletal spine, ribs and pelvis Spine: tender @ cervical spine 11/29/2012 None Full Exam - General Constitutional general appearance Overall: well nourished 09/26/2012 None Full Exam - General Constitutional general appearance Overall: well developed 09/26/2012 None Full Exam - General Constitutional general appearance Overall: in no acute distress 09/26/2012 None Full Exam - General Neurologic mental status Overall: alert 3 None Full Exam - General Neurologic mental status Overall: oriented 09/26/2012 None Full Exam - General Psychiatric mood and affect Overall: normal mood and affect 09/26/2012 None Full Exam - General Respiratory auscultation Overall: breath sounds clear bilater ally 09/26/2012 None Full Exam - General Cardiovascular auscultation of heart Overall: regular rate 09/26/2012 None Full Exam - General Cardiovascular auscultation of heart Overall: normal heart sounds 09/26/2012 None Full Exam - General Cardiovascular auscultation of heart Overall: no murmurs 09/26/2012 None Full Exam - General Cardiovascular extremities Overall: no clubbing 09/26/2012 None Full Exam - General Cardiovascular extremities Overall: No edema 09/26/2012 None Full Exam - General Cardiovascular extremities Overall: No cyanosis 09/26/2012 None Full Exam - General Musculoskeletal left upper extremity ROM - left shoulder: a normal exam 09/26/2012 None Full Exam - General Musculoskeletal head and neck Right TMJ: a normal exam 09/26/2012 None Full Exam - General Musculoskeletal head and neck Right TMJ: non-tender 09/26/2012 None Full Exam - General Constitutional general appearance Overall: well nourished 07/11/2012 None Full Exam - General Constitutional general appearance Overall: well developed 07/11/2012 None Full Exam - General Constitutional general appearance Overall: in no acute distress 07/11/2012 None Full Exam - General Neurologic mental status Overall: alert 3 None Full Exam - General Neurologic mental status Overall: oriented 07/11/2012 None Full Exam - General Psychiatric mood and affect Overall: normal mood and affect 07/11/2012 None Full Exam - General Respiratory auscultation Overall: breath sounds clear bilater ally 07/11/2012 None Full Exam - General Cardiovascular auscultation of heart Overall: regular rate 07/11/2012 None Full Exam - General Cardiovascular auscultation of heart Overall: normal heart sounds 07/11/2012 None Full Exam - General Cardiovascular auscultation of heart Overall: no murmurs 07/11/2012 None Full Exam - General Cardiovascular extremities Overall: no clubbing 07/11/2012 None Full Exam - General Cardiovascular extremities Overall: No edema 07/11/2012 None Full Exam - General Cardiovascular extremities Overall: No cyanosis 07/11/2012 None Full Exam - General Abdomen abdominal exam Overall: no masses 07/11/2012 None Full Exam - General Abdomen abdominal exam Overall: normal bowel sounds 07/11/2012 None Full Exam - General Abdomen abdominal exam Overall: soft 07/11/2012 None Full Exam - General Abdomen abdominal exam Right lower quadrant: tender to palp ation 07/11/2012 None Full Exam - General Abdomen abdominal exam Right lower quadrant: no rebound ten derness 07/11/2012 None Full Exam - General Abdomen abdominal exam Right lower quadrant: no mass lesion s 07/11/2012 None Full Exam - General Constitutional general appearance Overall: well nourished 02/02/2012 None Full Exam - General Constitutional general appearance Overall: well developed 02/02/2012 None Full Exam - General Constitutional general appearance Overall: in no acute distress 02/02/2012 None Full Exam - General Neurologic mental status Overall: alert 2 None Full Exam - General Neurologic mental status Overall: oriented 02/02/2012 None Full Exam - General Psychiatric mood and affect Overall: normal mood and affect 02/02/2012 None Full Exam - General Respiratory auscultation Overall: breath sounds clear bilater ally 02/02/2012 None Full Exam - General Cardiovascular auscultation of heart Overall: regular rate 02/02/2012 None Full Exam - General Cardiovascular auscultation of heart Overall: normal heart sounds 02/02/2012 None Full Exam - General Cardiovascular auscultation of heart Overall: no murmurs 02/02/2012 None Full Exam - General Neck inspection of neck Overall: normal size 02/02/2012 None Full Exam - General Neck inspection of neck Overall: no masses 02/02/2012 None Full Exam - General Ears/Nose/Throat otoscopic exam Overall: external auditory canals clear 02/02/2012 None Full Exam - General Ears/Nose/Throat otoscopic exam Overall: tympanic membranes clear 02/02/2012 None Full Exam - General Ears/Nose/Throat internal nose Overall: bilateral nasal cavities clear 02/02/2012 None Full Exam - General Ears/Nose/Throat oral cavity/pharynx/larynx Overall: oral mucosa clear 02/02/2012 None Full Exam - General Cardiovascular extremities Overall: no clubbing 02/02/2012 None Full Exam - General Cardiovascular extremities Overall: No edema 02/02/2012 None Full Exam - General Cardiovascular extremities Overall: No cyanosis 02/02/2012 None Full Exam - General Abdomen abdominal exam Overall: no masses 02/02/2012 None Full Exam - General Abdomen abdominal exam Overall: no tenderness 02/02/2012 None Full Exam - General Abdomen abdominal exam Overall: normal bowel sounds 02/02/2012 None Full Exam - General Abdomen abdominal exam Overall: soft 02/02/2012 None Full Exam - General Integument inspection of skin Overall: no rash, lesions 02/02/2012 None Full Exam - General Musculoskeletal gait and station Overall: normal gait 02/02/2012 None Full Exam - General Musculoskeletal gait and station Overall: normal station 02/02/2012 None Full Exam - General Musculoskeletal spine, ribs and pelvis Overall: good posture 02/02/2012 None Full Exam - General Musculoskeletal spine, ribs and pelvis Overall: ribs benign 02/02/2012 None Full Exam - General Musculoskeletal spine, ribs and pelvis Overall: spine benign 02/02/2012 None Full Exam - General Constitutional general appearance Overall: well nourished 08/17/2011 None Full Exam - General Constitutional general appearance Overall: well developed 08/17/2011 None Full Exam - General Constitutional general appearance Overall: in no acute distress 08/17/2011 None Full Exam - General Neurologic mental status Overall: alert 2 None Full Exam - General Neurologic mental status Overall: oriented 08/17/2011 None Full Exam - General Psychiatric mood and affect Overall: normal mood and affect 08/17/2011 None Full Exam - General Abdomen abdominal exam Overall: no masses 08/17/2011 None Full Exam - General Abdomen abdominal exam Overall: normal bowel sounds 08/17/2011 None Full Exam - General Abdomen abdominal exam Overall: soft 08/17/2011 None Full Exam - General Abdomen abdominal exam Suprapubic: non-tender to palpation 08/17/2011 None Full Exam - General Abdomen abdominal exam Epigastric: tender to palpation 08/17/2011 None Full Exam - General Cardiovascular auscultation of heart Overall: no murmurs 08/17/2011 None Full Exam - General Cardiovascular auscultation of heart Overall: regular rate 08/17/2011 None Full Exam - General Cardiovascular auscultation of heart Overall: normal heart sounds 08/17/2011 None Full Exam - General Cardiovascular auscultation of heart S1: a normal exam 08/17/2011 None Full Exam - General Cardiovascular auscultation of heart S2: a normal exam 08/17/2011 None Full Exam - General Cardiovascular auscultation of heart Rhythm: regular rhythm 08/17/2011 None Full Exam - General Cardiovascular auscultation of heart Rate: regular rate 08/17/2011 None Full Exam - General Cardiovascular auscultation of heart S3 (ventricular gallop): present 08/17/2011 None Full Exam - General Respiratory auscultation Overall: breath sounds clear bilater ally 08/17/2011 None Full Exam - General Constitutional general appearance Overall: well nourished 10/14/2010 None Full Exam - General Constitutional general appearance Overall: well developed 10/14/2010 None Full Exam - General Constitutional general appearance Overall: in no acute distress 10/14/2010 None Full Exam - General Ears/Nose/Throat otoscopic exam Overall: external auditory canals clear 10/14/2010 None Full Exam - General Ears/Nose/Throat otoscopic exam Overall: tympanic membranes clear 10/14/2010 None Full Exam - General Ears/Nose/Throat lips/teeth/gingiva Overall: benign lips 10/14/2010 None Full Exam - General Ears/Nose/Throat lips/teeth/gingiva Overall: normal dentition 10/14/2010 None Full Exam - General Ears/Nose/Throat lips/teeth/gingiva Overall: benign gingiva 10/14/2010 None Full Exam - General Ears/Nose/Throat oral cavity/pharynx/larynx Overall: oral mucosa clear 10/14/2010 None Full Exam - General Ears/Nose/Throat oral cavity/pharynx/larynx Overall: tonsils benign 10/14/2010 None Full Exam - General Ears/Nose/Throat oral cavity/pharynx/larynx Overall: oropharyngeal mucosa clear 10/14/2010 None Full Exam - General Respiratory auscultation Overall: breath sounds clear bilater ally 10/14/2010 None Full Exam - General Respiratory respiratory effort/rhythm Overall: no retractions 10/14/2010 None Full Exam - General Respiratory respiratory effort/rhythm Overall: normal rate 10/14/2010 None Full Exam - General Cardiovascular auscultation of heart Overall: regular rate 10/14/2010 None Full Exam - General Cardiovascular auscultation of heart Overall: normal heart sounds 10/14/2010 None Full Exam - General Abdomen abdominal exam Right lower quadrant: tender to palp ation 10/14/2010 pt reports that her appen sri and gall bladder have been removed. Full Exam - General Psychiatric orientation/consciousness Overall: oriented to person, place and time 10/14/2010 None Procedures Procedure Codes Date THER/PROPH/DIAG INJ SC/IM CPT-4: 76841 01/17/2018 KETOROLAC TROMETHAMI NE INJ CPT-4: J1885 01/17/2018 THER/PROPH/DIAG INJ SC/IM CPT-4: 84948 01/17/2018 PROMETHAZINE HCL INJ ECTION CPT-4: J2550 01/17/2018 URINALYSIS NONAUTO W /O SCOPE CPT-4: 04176 12/29/2017 URINE CULTURE/ COLON Y COUNT CPT-4: 04622 12/29/2017 THER/PROPH/DIAG INJ SC/IM CPT-4: 69370 11/30/2017 TRIAMCINOLONE ACET I NJ NOS CPT-4: J3301 11/30/2017 DEXAMETHASONE SODIUM PHOS CPT-4: J1100 11/30/2017 CEFTRIAXONE SODIUM I NJECTION CPT-4: J0696 11/29/2017 THER/PROPH/DIAG INJ SC/IM CPT-4: 57686 11/29/2017 CEFTRIAXONE SODIUM I NJECTION CPT-4: J0696 11/28/2017 THER/PROPH/DIAG INJ SC/IM CPT-4: 00073 11/28/2017 URINALYSIS NONAUTO W /O SCOPE CPT-4: 38769 10/10/2017 THER/PROPH/DIAG INJ SC/IM CPT-4: 58102 10/10/2017 TRIAMCINOLONE ACET I NJ NOS CPT-4: J3301 10/10/2017 DEXAMETHASONE SODIUM PHOS CPT-4: J1100 10/10/2017 CEFTRIAXONE SODIUM I NJECTION CPT-4: J0696 10/10/2017 THER/PROPH/DIAG INJ SC/IM CPT-4: 47883 10/10/2017 URINE CULTURE/ COLON Y COUNT CPT-4: 22178 10/10/2017 THER/PROPH/DIAG INJ SC/IM CPT-4: 61432 11/02/2016 KETOROLAC TROMETHAMI NE INJ CPT-4: J1885 11/02/2016 THER/PROPH/DIAG INJ SC/IM CPT-4: 43266 06/15/2016 TRIAMCINOLONE ACET I NJ NOS CPT-4: J3301 06/15/2016 DEXAMETHASONE SODIUM PHOS CPT-4: J1100 06/15/2016 THER/PROPH/DIAG INJ SC/IM CPT-4: 56656 04/09/2016 KETOROLAC TROMETHAMI NE INJ CPT-4: J1885 04/09/2016 PROMETHAZINE HCL INJ ECTION CPT-4: J2550 04/09/2016 EXC TR-EXT B9+ERASMO 0 .5 CM< CPT-4: 14525 06/12/2015 URINALYSIS NONAUTO W /O SCOPE CPT-4: 19367 05/05/2015 URINE CULTURE/ COLON Y COUNT CPT-4: 10198 05/05/2015 URINALYSIS NONAUTO W /O SCOPE CPT-4: 15095 03/24/2015 URINALYSIS NONAUTO W /O SCOPE CPT-4: 47337 02/27/2015 URINE CULTURE/ COLON Y COUNT CPT-4: 43075 02/27/2015 THER/PROPH/DIAG INJ SC/IM CPT-4: 43667 04/18/2014 KETOROLAC TROMETHAMI NE INJ CPT-4: J1885 04/18/2014 THER/PROPH/DIAG INJ SC/IM CPT-4: 82377 06/05/2013 TRIAMCINOLONE ACET I NJ NOS CPT-4: J3301 06/05/2013 THER/PROPH/DIAG INJ SC/IM CPT-4: 58887 11/29/2012 KETOROLAC TROMETHAMI NE INJ CPT-4: J1885 11/29/2012 URINALYSIS NONAUTO W /O SCOPE CPT-4: 77805 07/11/2012 URINE CULTURE/ COLON Y COUNT CPT-4: 59613 07/11/2012 OCCULT BLOOD FECES CPT- 4: 25061 02/17/2012 URINALYSIS NONAUTO W /O SCOPE CPT-4: 78106 08/27/2011 URINE CULTURE/ COLON Y COUNT CPT-4: 78251 08/27/2011 URINALYSIS NONAUTO W /O SCOPE CPT-4: 40749 08/17/2011 URINE CULTURE/ COLON Y COUNT CPT-4: 33014 08/17/2011 URINALYSIS NONAUTO W /O SCOPE CPT-4: 67334 12/28/2010 URINE CULTURE/ COLON Y COUNT CPT-4: 99961 12/28/2010 URINALYSIS NONAUTO W /O SCOPE CPT-4: 94020 11/09/2010 URINE CULTURE/ COLON Y COUNT CPT-4: 57424 11/09/2010 URINALYSIS NONAUTO W /O SCOPE CPT-4: 99668 10/29/2010 URINE CULTURE/ COLON Y COUNT CPT-4: 94010 10/29/2010 URINE CULTURE/ COLON Y COUNT CPT-4: 32127 10/14/2010 URINALYSIS NONAUTO W /O SCOPE CPT-4: 34656 10/14/2010 Vital Signs Date Vital 09/18/2018 Blood Pressure 1: 102/58 Code: 8480-6 Heart Rate 1: 72 bpm Respiratory Rate: 18 bpm SpO2: 96% Temperature: 36.6 (C ) / 97.9 (F) Weight: 128 lbs 08/10/2018 Blood Pressure 1: 110/66 Code: 8480-6 Heart Rate 1: 94 bpm Respiratory Rate: 20 bpm SpO2: 64% Temperature: 36.7 (C ) / 98.0 (F) Weight: 127 lbs 03/27/2018 Blood Pressure 1: 126/72 Code: 8480-6 BMI: 22.7 Code: 51543-4 Heart Rate 1: 72 bpm Height: 5'3" Respiratory Rate: 20 bpm Temperature: 36.7 (C ) / 98.0 (F) Weight: 128 lbs 02/23/2018 Blood Pressure 1: 116/68 Code: 8480-6 Heart Rate 1: 60 bpm Respiratory Rate: 20 bpm SpO2: 97% Temperature: 37.3 (C ) / 99.1 (F) Weight: 126 lbs 01/24/2018 Blood Pressure 1: 122/74 Code: 8480-6 Heart Rate 1: 84 bpm Height: 5'3" Respiratory Rate: 20 bpm Temperature: 36.8 (C ) / 98.3 (F) 01/17/2018 Blood Pressure 1: 112/70 Code: 8480-6 BMI: 22.0 Code: 58662-8 Heart Rate 1: 80 bpm Height: 5'3" Respiratory Rate: 20 bpm SpO2: 96% Temperature: 37.1 (C ) / 98.8 (F) Weight: 124 lbs 12/29/2017 Blood Pressure 1: 122/74 Code: 8480-6 Heart Rate 1: 80 bpm Height: 5'3" Respiratory Rate: 20 bpm Temperature: 36.8 (C ) / 98.3 (F) 12/06/2017 Heart Rate 1: 84 bpm Respiratory Rate: 20 bpm Temperature: 36.8 (C ) / 98.2 (F) 12/01/2017 Blood Pressure 1: 110/60 Code: 8480-6 Heart Rate 1: 61 bpm Respiratory Rate: 20 bpm SpO2: 95% Temperature: 36.7 (C ) / 98.1 (F) 11/30/2017 Blood Pressure 1: 100/70 Code: 8480-6 Temperature: 36.7 (C) / 98.0 (F) 11/29/2017 Blood Pressure 1: 122/78 Code: 8480-6 Heart Rate 1: 93 bpm Respiratory Rate: 20 bpm SpO2: 99% Temperature: 36.9 (C ) / 98.5 (F) 11/28/2017 Blood Pressure 1: 124/78 Code: 8480-6 Heart Rate 1: 80 bpm Respiratory Rate: 18 bpm SpO2: 98% Temperature: 36.8 (C ) / 98.3 (F) Weight: 124 lbs 11/17/2017 Blood Pressure 1: 112/68 Code: 8480-6 Heart Rate 1: 72 bpm Respiratory Rate: 20 bpm Temperature: 36.6 (C) / 97.8 (F) Weight: 124 lbs 10/10/2017 Blood Pressure 1: 122/64 Code: 8480-6 BMI: 21.4 Code: 50969-2 Heart Rate 1: 88 bpm Height: 5'3" Respiratory Rate: 22 bpm SpO2: 96% Temperature: 36.8 (C ) / 98.2 (F) Weight: 121 lbs 06/22/2017 Blood Pressure 1: 124/78 Code: 8480-6 BMI: 21.6 Code: 73388-5 Heart Rate 1: 76 bpm Height: 5'3" Respiratory Rate: 20 bpm Temperature: 36.8 (C ) / 98.3 (F) Weight: 122 lbs 03/28/2017 Blood Pressure 1: 92/60 Code: 8480-6 BMI: 20.4 Code: 92920-2 Heart Rate 1: 72 bpm Height: 5'3" Respiratory Rate: 20 bpm Temperature: 36.9 (C ) / 98.4 (F) Weight: 115 lbs 02/16/2017 Blood Pressure 1: 106/70 Code: 8480-6 BMI: 21.3 Code: 14276-0 Heart Rate 1: 82 bpm Height: 5'3" Respiratory Rate: 22 bpm SpO2: 97% Temperature: 36.1 (C ) / 97.0 (F) Weight: 120 lbs 09/06/2016 Blood Pressure 1: 118/64 Code: 8480-6 BMI: 22.7 Code: 04917-1 Heart Rate 1: 78 bpm Height: 5'3" Respiratory Rate: 20 bpm SpO2: 98% Temperature: 36.2 (C ) / 97.2 (F) Weight: 128 lbs 08/16/2016 Blood Pressure 1: 118/78 Code: 8480-6 BMI: 22.1 Code: 34211-4 Heart Rate 1: 78 bpm Height: 5'3" Respiratory Rate: 20 bpm SpO2: 97% Temperature: 36.2 (C ) / 97.1 (F) Weight: 125 lbs 07/19/2016 Blood Pressure 1: 116/68 Code: 8480-6 BMI: 22.5 Code: 39083-2 Heart Rate 1: 76 bpm Height: 5'3" Respiratory Rate: 20 bpm Temperature: 36.8 (C ) / 98.2 (F) Weight: 127 lbs 07/06/2016 Blood Pressure 1: 106/70 Code: 8480-6 BMI: 22.5 Code: 91362-0 Heart Rate 1: 72 bpm Height: 5'3" Respiratory Rate: 20 bpm SpO2: 97% Temperature: 36.8 (C ) / 98.2 (F) Weight: 127 lbs 06/15/2016 Blood Pressure 1: 136/76 Code: 8480-6 BMI: 22.9 Code: 86815-2 Heart Rate 1: 74 bpm Height: 5'3" Respiratory Rate: 18 bpm SpO2: 98% Temperature: 36.4 (C ) / 97.6 (F) Weight: 129 lbs 04/09/2016 Blood Pressure 1: 124/78 Code: 8480-6 BMI: 23.0 Code: 72825-2 Heart Rate 1: 86 bpm Height: 5'3" Respiratory Rate: 20 bpm SpO2: 96% Temperature: 36.5 (C ) / 97.7 (F) Weight: 130 lbs 03/17/2016 Blood Pressure 1: 116/74 Code: 8480-6 BMI: 23.4 Code: 81759-6 Heart Rate 1: 84 bpm Height: 5'3" Respiratory Rate: 20 bpm SpO2: 97% Temperature: 36.8 (C ) / 98.3 (F) Weight: 132 lbs 11/13/2015 Blood Pressure 1: 124/78 Code: 8480-6 BMI: 23.4 Code: 77118-1 Heart Rate 1: 88 bpm Height: 5'3" Respiratory Rate: 24 bpm SpO2: 98% Temperature: 36.8 (C ) / 98.2 (F) Weight: 132 lbs 06/12/2015 Blood Pressure 1: 126/78 Code: 8480-6 BMI: 23.6 Code: 84501-3 Heart Rate 1: 80 bpm Height: 5'3" Respiratory Rate: 20 bpm Temperature: 36.9 (C ) / 98.4 (F) Weight: 133 lbs 04/22/2015 Blood Pressure 1: 126/68 Code: 8480-6 BMI: 23.6 Code: 23900-8 Heart Rate 1: 80 bpm Height: 5'3" Respiratory Rate: 20 bpm Temperature: 36.6 (C ) / 97.9 (F) Weight: 133 lbs 03/24/2015 Blood Pressure 1: 116/66 Code: 8480-6 BMI: 22.9 Code: 66853-5 Heart Rate 1: 74 bpm Height: 5'3" Respiratory Rate: 20 bpm Temperature: 36.4 (C ) / 97.6 (F) Weight: 129 lbs 02/27/2015 Blood Pressure 1: 106/64 Code: 8480-6 BMI: 22.7 Code: 40279-2 Heart Rate 1: 74 bpm Height: 5'3" Respiratory Rate: 20 bpm Temperature: 36.8 (C ) / 98.2 (F) Weight: 128 lbs 06/13/2014 Blood Pressure 1: 104/66 Code: 8480-6 BMI: 22.7 Code: 21610-7 Heart Rate 1: 84 bpm Height: 5'3" Respiratory Rate: 20 bpm Temperature: 37.0 (C ) / 98.6 (F) Weight: 128 lbs 04/18/2014 Blood Pressure 1: 112/62 Code: 8480-6 BMI: 22.0 Code: 97212-9 Heart Rate 1: 82 bpm Height: 5'3" Respiratory Rate: 18 bpm Temperature: 36.4 (C ) / 97.6 (F) Weight: 124 lbs 12/05/2013 Blood Pressure 1: 106/70 Code: 8480-6 BMI: 23.7 Code: 55463-1 Heart Rate 1: 84 bpm Height: 5'3" Respiratory Rate: 20 bpm Temperature: 37.2 (C ) / 99.0 (F) Weight: 134 lbs 06/05/2013 [...] 1: 126/88 Code: 8480-6 BMI: 22.3 Code: 84275-9 Heart Rate 1: 96 bpm Height: 5'4" Respiratory Rate: 20 bpm Temperature: 37.7 (C ) / 99.9 (F) Weight: 130 lbs 11/29/2012 Blood Pressure 1: 122/76 Code: 8480-6 BMI: 23.0 Code: 63315-3 Heart Rate 1: 84 bpm Height: 5'4" Respiratory Rate: 20 bpm Temperature: 36.9 (C ) / 98.4 (F) Weight: 134 lbs 09/26/2012 Blood Pressure 1: 114/76 Code: 8480-6 BMI: 23.0 Code: 88508-8 Heart Rate 1: 84 bpm Height: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 ANTUNEZ [facility] CPT-4: 32239 09/06/2016 OFFICE/OUTPATIENT SIT EST Diagnosis: Acute sinusitis, unspecified[ICD10: J01.90] Vidya Manuel ALEXANDRA FUENTES [facility] CPT-4: 67584 08/16/2016 ([id number]) OFFICE/OUTPA TIENT VISIT EST Diagnosis: Primary insomnia[ICD10: F51.01] Diagnosis: Cramp and spasm[ICD10: R25.2] Diagnosis: Major depressive disorder, single episode, mild[ICD10: F32.0] Alexandra CARROLL [facility] CPT-4: 58213 07/19/2016 ([id number]) OFFICE/OUTPA TIENT VISIT EST Diagnosis: Obstructive sleep apnea (adult) (pediatric)[ICD10: G47.33] Diagnosis: Other fatigue[ICD10: R53.83] Diagnosis: Allergic rhinitis due to pollen[ICD10: J30.1] Diagnosis: Headache[ICD10: R51] Alexandra CARROLL [facility] CPT-4: 01741 07/06/2016 ([id number]) OFFICE/OUTPA TIENT VISIT EST Diagnosis: Acute recurrent sinusitis, unspecified[ICD10: J01.91] Diagnosis: Allergic rhinitis due to pollen[ICD10: J30.1] Alexandra FUENTES [employer] CPT-4: 15677 06/15/2016 ([id number]) OFFICE/OUTPA TIENT VISIT EST Diagnosis: Migraine, unspecified, not intractable, without status migrainosus[ICD10: G43.909] Diagnosis: Allergic rhinitis, unspecified[ICD10: J30.9] Nae CARRLOL [facility] CPT-4: 89203 04/09/2016 ([id number]) OFFICE/OUTPA TIENT VISIT EST Diagnosis: Hypothyroidism, unspecified[ICD10: E03.9] Diagnosis: Other fatigue[ICD10: R53.83] Diagnosis: Mixed hyperlipidemia[ICD10: E78.2] Diagnosis: Major depressive disorder, single episode, mild[ICD10: F32.0] Alexandra CARROLL [facility] CPT-4: 29762 03/17/2016 ([id number]) OFFICE/OUTPA TIENT VISIT EST Diagnosis: Insomnia, unspecified[ICD10: G47.00] Diagnosis: Encounter for therapeutic drug level monitoring[ICD10: Z51.81] Nae CARROLL [facility] CPT-4: 15393 11/13/2015 ([id number]) OFFICE/OUTPA TIENT VISIT EST Diagnosis: Hematuria, unspecified[ICD10: R31.9] [facility] CPT-[facility]: 08476 05/05/2015 ([id number]) OFFICE/OUTPA TIENT VISIT EST Diagnosis: Other intervertebral disc degeneration, lumbar region[ICD10: M51.36] Diagnosis: Radiculopathy, lumbosacral region[ICD10: M54.17] Alexandra FUENTES [facility] CPT-4: 49835 04/22/2015 ([id number]) OFFICE/OUTPA TIENT VISIT EST Diagnosis: Low back pain[ICD10: M54.5] Diagnosis: Recurrent and persistent hematuria with unspecified morphologic changes[ICD10: N02.9] Alexandra CARROLL [employer] CPT-4: 93108 03/24/2015 ([id number]) OFFICE/OUTPA TIENT VISIT EST Diagnosis: Acute sinusitis, unspecified[ICD10: J01.90] Diagnosis: Headache[ICD10: R51] Diagnosis: Retention of urine, unspecified[ICD10: R33.9] Diagnosis: Hypothyroidism, unspecified[ICD10: E03.9] Alexandra ANTUNEZR DO [facility] CPT-4: 23641 02/27/2015 ([id number]) PREV VISIT E ST AGE 40-64 Diagnosis: ROUTINE MEDICAL EXAM[ICD9: V70.0] Diagnosis: HYPOTHYROIDISM[ICD9: 244.9] Diagnosis: HYPERLIPIDEMIA NEC/NOS[ICD9: 272.4] Alexandra JACOBO NDER DO [facility] CPT-4: 40256 06/13/2014 ([id number]) OFFICE/OUTPA TIENT VISIT EST Diagnosis: CEPHALGIA[ICD9: 784.0] Diagnosis: Nausea[ICD9: 787.02] Shalini Romeo CARROLL DO [facility] CPT-4: 63257 04/18/2014 ([id number]) OFFICE/OUTPA TIENT VISIT EST Diagnosis: INSOMNIA NOS[ICD9: 780.52] Diagnosis: Complicated grieving[ICD9: 309.0] Alexandra JACOBO NDER DO [facility] CPT-4: 60891 12/05/2013 ([id number]) OFFICE/OUTPA TIENT VISIT EST Diagnosis: Muscle twitch[ICD9: 781.0] Diagnosis: ALLERGIC RHINITIS[ICD9: 477.9] Alexandra JACOBONDVIOLETTA DO [facility] CPT-4: 47488 06/05/2013 ([id number]) OFFICE/OUTPA TIENT VISIT EST Diagnosis: DEPRESSIVE DISORDER NEC[ICD9: 311] Alexandra JACOBO NDER DO [facility] CPT-4: 12631 05/22/2013 OFFICE/OUTPATIENT SIT EST Diagnosis: Shingles[ICD9: 053.9] Alexandra JACOBONDVIOLETTA DO [facility] CPT-4: 35691 04/05/2013 ([id number]) OFFICE/OUTPA TIENT VISIT EST Diagnosis: DEPRESSIVE DISORDER NEC[ICD9: 311] Alexandra JACOBO NDER DO [facility] CPT-4: 89157 03/26/2013 ([id number]) OFFICE/OUTPA TIENT VISIT EST Diagnosis: Complicated grieving[ICD9: 309.0] Alexandra JACOBO NDER DO [facility] CPT-4: 44970 03/06/2013 ([id number]) OFFICE/OUTPA TIENT VISIT EST Diagnosis: CEPHALGIA, TENSION[ICD9: 307.81] Diagnosis: MIGRAINE NOS/NOT INTRCBL[ICD9: 346.90] Diagnosis: Cervicalgia[ICD9: 723.1] Alexandra CARROLL DO [facility] CPT-4: 81832 11/29/2012 ([id number]) OFFICE/OUTPA TIENT VISIT EST Diagnosis: Jaw pain[ICD9: 784.92] Diagnosis: Shoulder pain[ICD9: 719.41] Diagnosis: Family history of premature coronary artery disease[ICD9: V17.3] Alexandra CARROLL DO [facility] CPT-4: 02633 09/26/2012 ([id number]) OFFICE/OUTPA TIENT VISIT EST Diagnosis: ABDOMINAL PAIN[ICD9: 789.00] Diagnosis: Constipation[ICD9: 564.00] Diagnosis: Hematuria[ICD9: 599.70] Alexandra CARROLL DO [facility] CPT-4: 76798 07/11/2012 ([id number]) OFFICE/OUTPA TIENT VISIT EST Diagnosis: ANEMIA NOS[ICD9: 285.9] Alexandra CARROLL DO [facility] CPT-4: 97983 02/17/2012 ([id number]) PREV VISIT E ST AGE 40-64 Diagnosis: ROUTINE MEDICAL EXAM[ICD9: V70.0] Diagnosis: HYPOTHYROIDISM[ICD9: 244.9] Diagnosis: HYPERLIPIDEMIA NEC/NOS[ICD9: 272.4] Diagnosis: Obstructive sleep apnea[ICD9: 327.23] Alexandra FUENTES [facility] CPT-4: 91845 02/02/2012 ([id number]) OFFICE/OUTPA TIENT VISIT EST Diagnosis: URINARY TRACT INFECTION[ICD9: 599.0] Alexandra FUENTES [facility] CPT-4: 46143 08/27/2011 ([id number]) OFFICE/OUTPA TIENT VISIT EST Diagnosis: URINARY TRACT INFECTION[ICD9: 599.0] Diagnosis: ACUTE CYSTITIS[ICD9: 595.0] [facility] CPT-4: 82358 08/17/2011 OFFICE/OUTPATIENT SIT EST Diagnosis: URINARY TRACT INFECTION[ICD9: 599.0] Steph Bowen [facility] CPT-4: 52602 10/14/2010 Plan of Care Planned Activity Notes C odes Status Date Visit Diagnosis Plan: Radiculopathy, lumbosacral regio n Discussion: Had left SI joint injection by Dr. Baig about 2 weeks ago and has fwup with him ICD-9 : 724.4 ICD-10 : M54.17 09/18/2018 Visit Diagnosis Plan: Diarrhea, unspecified Discussion: Due for updated colonoscopy ICD-9 : 787.91 ICD-10 : R19.7 09/18/2018 Appointment: Alexandra Carroll WPtel: [phone] [facility] PATIENT CONSULT 15 09/18/2018 Care Plan: Referral Order SNOMED-CT : [id number] Pending 09/18/2018 Visit Diagnosis Plan: Other intervertebr al disc degeneration, lumbar region Follow Up: 3 months ICD-9 [...] M46.1 08/10/2018 Appointment: Alexandra Carroll [facility]el[phone] MED[facility] REVIEW 08/10/2018 Care Plan: Referral Order SNOMED-CT : [id number] Pending 08/10/2018 Appointment: Alexandra Carroll WPtel: [address] [place], [place] [phone] US CANCELED 04/17/2018 Visit Diagnosis Plan: Cervicalgia Di scussion: Daily stretches Has finished PT and seeing chiropracter ICD-9 : 723.1 ICD-10 : M54.2 03/27/2018 Visit Diagnosis Plan: Radiculopathy, lumbosacral regio n Discussion: Stable gabapentin ICD-9 : 724.4 ICD-10 : M54.17 03/27/2018 Visit Diagnosis Plan: Fracture of unspec ified part of left clavicle, subsequent encounter for fracture with routine healing Discussion: Pain much improved Discussed that left arm weakness will improve with time--has increased to 2 lb weight and will slowly go up with time ICD-9 : V54.11 ICD-10 : S42.002D 03/27/2018 Appointment: Alexandra Carroll WPtel: [address] [place], [place] [phone] US FOLLOW UP 03/27/2018 Visit Diagnosis Plan: Other intervertebr al disc degeneration, lumbar region Discussion: Continue gabapentin at 300mg q HS Start daily low back stretches Recheck 1month ICD-9 : 722.52 ICD-10 : M51.36 02/23/2018 Visit Diagnosis Plan: Fracture of unspec ified part of left clavicle, subsequent encounter for fracture with routine healing Discussion: Healing Home exercises and strengthening ICD-9 : V54.11 ICD-10 : S42.002D 02/23/2018 Appointment: Alexandra Carroll WPtel: [address] [place], [place] [phone] US FOLLOW UP 02/23/2018 Patient Education: gabapentin- [employer] Coupon [phone] [email or web address] Completed 02/23/2018 Visit Diagnosis Plan: Fracture of unspec ified part of left clavicle, subsequent encounter for fracture with routine healing Discussion: Hold on PT and do home stretches Trial of gabapentin Recheck 4 weeks ICD-9 : V54.11 ICD-10 : S42.002D 01/24/2018 Appointment: Alexandra Carroll WPtel: [address] [place], [place] [phone] US FOLLOW UP 01/24/2018 Visit Diagnosis Plan: Migraine, unspecif ied, not intractable, without status migrainosus Discussion: Toradol and phenergan given ICD-9 : 346.90 ICD-10 : G43.909 01/17/2018 Appointment: Alexandra Carroll WPtel: [address] [place], [place] [phone] ACUTE ILLNESS 01/17/2018 Visit Diagnosis Plan: Retention of urine, unspecified Discussion: Seems to be related to back issues as comes on everytime back flares up so will do GERMAIN or SI joint injection ICD-9 : 788.20 ICD-10 : R33.9 12/29/2017 Visit Diagnosis Plan: Hematuria, unspecified Discussion: Check pelvic and renal US ICD-9 : 599.70 ICD-10 : R31.9 12/29/2017 Visit Diagnosis Plan: Other intervertebr al disc degeneration, lumbar region Discussion: Referral to pain management for injection ICD-9 : 722.52 ICD-10 : M51.36 12/29/2017 Appointment: Alexandra Carroll WPtel: [address] [place] [address] ACUTE ILLNESS 12/29/2017 Care Plan: US EXAM PELVIC COMPLETE Pending 12/29/2017 Care Plan: ECHO EXAM OF ABDOMEN Pending 12/29/2017 Care Plan: Referral Order SNOMED-CT : [id number] Pending 12/29/2017 Visit Diagnosis Plan: Fracture of unspec ified part of left clavicle, subsequent encounter for fracture with routine healing Discussion: Start PT in another 7-14 days Off work for the rest of this week then may return to part-time work on 12/12/17 Fwup in 4 weeks ICD-9 : V54.11 ICD-10 : S42.002D 12/06/2017 Appointment: Alexandra Carroll WPtel: [address] [place], [place] [phone] US FOLLOW UP 12/06/2017 Patient Education: Patient Medication Summary Completed 12/06/2017 Visit Diagnosis Plan: Allergy status to other antibiotic agents status Discussion: medrol pack prescribed for a llergic reaction. instructed to call office with new or worsening symptoms, otherwise, benadryl prn. ICD-9 : 995.27 ICD-10 : Z88.1 12/01/2017 Visit Diagnosis Plan: Cellulitis of right upper limb Discussion: much improved. patient voiced she is unable [...] ICD-10 : L03.113 12/01/2017 Appointment: Vandana Crowe [facility] FOLLOW UP 12/01/2017 Patient Education: Patient Medication Summary Completed 12/01/2017 Visit Diagnosis Plan: Allergy status to other antibiotic agents status Discussion: kenalog/dexa given in office to treat allergic reaction of anbitiotic. instructed to take benadryl at hs if needed as well. ICD-9 : 995.27 ICD-10 : Z88.1 11/30/2017 Visit Diagnosis Plan: Cellulitis of right upper limb Discussion: discussed with dr. carroll. continue with clindamycin with probiotics. ok to take zanatc OTC for relief. instructed to rtc tomorrow for recheck and if continues to worsen, notified patient that may need outpatient iv therapy or inpatient. she verbalized understanding. will assess how well steroid injection works. ICD-9 : 682.3 ICD-10 : L03.113 11/30/2017 Appointment: Vandana Crowe [facility] 11/30/2017 Patient Education: Patient Medication Summary Completed 11/30/2017 Visit Diagnosis Plan: Cellulitis of right upper limb Discussion: additional rocephin injection given in office. clindamycin prescribed to take as directed. continue with dressing changes bid. instructed to take probiotic at home to prevent gi upset. follow up tomorrow for wound recheck. instructed patient that if she continues to itch tonight, to take a benadryl oral. 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 Jasso to evluate MRI /X-rays and do injections as well as assess for ankylosing spondylitis as cause of pain and urinary retention vs spinal stenosis as cause ICD-9 : 722.52 ICD-10 : M51.36 11/17/2017 Visit Diagnosis Plan: Primary insomnia Discussion: Discussed changing xanax due to increased dementia risk and mother has alzheimer's ICD-9 : 780.52 ICD-10 : F51.01 11/17/2017 Visit Diagnosis Plan: Other retention of urine Discussion: Ongoing Had bladder stretched Did improve after steroid shot ICD-9 : 788.29 ICD-10 : R33.8 11/17/2017 Appointment: Alexandra Carrolll: [phone] [id number] US MEDICATION REVIEW 11/17/2017 Patient Education: Patient Medication Summary Completed 11/17/2017 Care Plan: Referral Order SNOMED-CT : [id number] Pending 11/17/2017 Patient Education: Patient Medication Summary Completed 10/12/2017 Care Plan: MRI LUMBAR SPINE W/O DYE LOINC : 37379-1 Pending 10/12/2017 Care Plan: X-RAY EXAM L-S SPINE 2/3 VWS LOINC : 17664-8 Pending 10/11/2017 Visit Diagnosis Plan: Other retention of urine Discussion: discussed with patient about seeing urology due to recurrent symptoms but patient declined at this time. instructed patient to rtc in 2 days to reassess symptoms. instructed her to go to ED if she develops severe pain with retention of urine and she may require straight cath. patient verbalized understanding. antibiotics prescribed to cover infection that could be cause and steroids to c over inflmattion which could be the cause. ICD-9 : 788.29 ICD-10 : R33.8 10/10/2017 Visit Diagnosis Plan: Urinary tract infe ction, site not specified Discussion: given rocephin injection in office [...] ICD-10 : M54.17 10/10/2017 Appointment: Vandana Crowe [address] [place], [place] [address] ACUTE ILLNESS 10/10/2017 Patient Education: Patient Medication Summary Completed 10/10/2017 Appointment: Vandana Crowe [facility] ACUTE ILLNESS 08/01/2017 Visit Diagnosis Plan: Other intervertebr al disc degeneration, lumbar region Discussion: Core strengtheing and invers ion table and if worsening will need updated MRI ICD-9 : 722.52 ICD-10 : M51.36 06/22/2017 Visit Diagnosis Plan: Encounter for [facility] adult medical examination without abnormal findings Discussion: Lab dis ussed Follow Up: 6 months ICD-9 : V70.0 ICD-10 : Z00.00 06/22/2017 Appointment: Alexandra Carroll WPtel: [phone] [facility] Annual Well Visit 06/22/2017 Patient Education: Patient Medication Summary Completed 06/22/2017 Patient Education: Patient Medication Summary Completed 06/16/2017 Care Plan: COMPREHEN METABOLIC PANEL LOINC : 51796-1 Pending 06/16/2017 Care Plan: ASSAY THYROID STIM HORMONE Pending 06/16/2017 Care Plan: ASSAY OF FREE THYROXINE Pending 06/16/2017 Care Plan: LIPID PANEL LOINC : 07066-7 Pending 06/16/2017 Care Plan: CBC Pending 06/16/2017 Visit Plan: Supportive care. Rest, Fluids, Tylenol/Motrin prn fever or bodyaches. Notify if worsening symptoms. 03/28/2017 Visit Diagnosis Plan: URI, ACUTE Dis cussion: Likely flu and is at end of illness so supportive care and monitor ICD-9 : 465.9 ICD-10 : J06.9 03/28/2017 Visit NOS Plan: Plan Notes: Support unique care. Rest, Fluids... 03/28/2017 Appointment: Alexandra Carroll WPtel: [phone] [facility] AC[facility] I[facility] 03/28/2017 Patient Education: Patient Medication Summary Completed 03/28/2017 Visit Diagnosis Plan: Acute sinusitis, unspecified Discussion: cefdinir and medrol dose pack prescribed to be taken as directed. tylenol/ibuprofen as needed. educated on importance of taking singulair or zyrtec daily to prevent worsening symptoms. keep hydrated. ICD-9 : 461.9 ICD-10 : J01.90 02/16/2017 Appointment: Vandana Crowe [address] ACUTE ILLNESS 02/16/2017 Patient Education: Patient Medication Summary Completed 02/16/2017 Appointment: Alexandra Carroll WPtel: [address] [place] [address] US INJECTION 11/02/2016 Patient Education: Patient Medication Summary Completed 11/02/2016 Visit Diagnosis Plan: Pain in thoracic spine Discussion: Increase flexeril to 10mg po BID Add Mobic 15mg po daily Towel stretch May see chiropractor to adjust ribs Notify if persists or worsening ICD-9 : 724.1 ICD-10 : M54.6 09/06/2016 Appointment: Alexandra Carroll WPtel: [address] [place] [address] ACUTE ILLNESS 09/06/2016 Patient Education: Patient Medication Summary Completed 09/06/2016 Visit Plan: Due to hx, ERx Cefdinir and Prednisone (discussed risks for both) Given bottle for nasal saline rinses Tylenol/Ibuprofen prn pain/fever Fluids/rest Discussed s/s of worsening, RTC if no improvement 08/16/2016 Visit Plan: Due to hx, ERx Cefdinir and Prednisone (discussed risks for both) Given bottle for nasal saline rinses Tylenol/Ibuprofen prn pain/fever Fluids/rest Discussed s/s of worsening, RTC if no improvement 08/16/2016 Appointment: Vidya Manuel WPtel: [address] [place] [address] ACUTE ILLNESS 08/16/2016 Patient Education: Patient Medication Summary Completed 08/16/2016 Visit Diagnosis Plan: Major depressive d isorder, single episode, mild Discussion: Continue lower dose of bupro prion for at least 2more months and if doing okay then can DC buproprion and see how does Follow Up: 4 months ICD-9 : 311 ICD-10 : F32.0 07/19/2016 Visit Diagnosis Plan: Primary insomnia Discussion: Continue xanax at current dose--patient has been trying to decrease dose ICD-9 : 780.52 ICD-10 : F51.01 07/19/2016 Visit Diagnosis Plan: Cramp and spasm Discussion: Restart flexeril and see if helps ICD-9 : 729.82 ICD-10 : R25.2 07/19/2016 Appointment: Alexandra Carrolltel: [address] [place] [address] 07/15 confirmed`sl FOLLOW UP 07/19/2016 Patient Education: Patient Medication Summary Completed 07/19/2016 Visit Diagnosis Plan: Obstructive sleep apnea (adult) (pediatric) Discussion: Adjust CPAP settings to see if helps fatigue and HAS--will give 4-6 week trial of increasing settings and if still with [facility] will consider CT scan of head/sinuses ICD-9 : 327.23 ICD-10 : G47.33 07/06/2016 Visit Diagnosis Plan: Allergic rhinitis due to pollen Discussion: Continue current regimen ICD-9 : 477.9 ICD-10 : J30.1 07/06/2016 Appointment: Alexandra Carroll WPtel: [address] [place] [address] 07/05 confirmed-sp FOLLOW UP 07/06/2016 Patient Education: Patient Medication Summary Completed 07/06/2016 Visit Plan: Saline nasal flushes pr n. Tylenol/Motrin prn headache. Notify if persists/symptoms worsening. 06/15/2016 Visit NOS Plan: Plan Notes: Saline nasal flushes prn. Tyle... 06/15/2016 Visit Diagnosis Plan: Allergic rhinitis due to pollen Discussion: Kenalog/Dexamethasone Continue Claritin-D Add singulair Recheck 3 weeks ICD-9 : 477.9 ICD-10 : J30.1 06/15/2016 Visit Diagnosis Plan: Acute recurrent sinusitis, unspe cified Discussion: Omnicef for 3 weeks Take daily probiotic while on ICD-9 : 461.9 ICD-10 : J01.91 06/15/2016 Appointment: Alexandra Carrolltel: [address] [place], [place] [id number] 06/14 lm ~sl ACUTE ILLNESS 06/15/2016 Patient Education: Patient Medication Summary Completed 06/15/2016 Visit Diagnosis Plan: Migraine, unspecif ied, not intractable, without status migrainosus Discussion: Injection as above Drink ple nty of water No driving x 6 hours Rest No OTC nsaids today Follow up PRN Refill called of claritin-d ICD-9 : 346.90 ICD-10 : G43.909 04/09/2016 [facility]ointment[facility] [facility] 04/09/2016 Patient Education: Patient Medication Summary Completed 04/09/2016 Visit Diagnosis Plan: Major depressive d isorder, single episode, mild Discussion: Continue current meds ICD-9 : 311 ICD-10 : F32.0 03/17/2016 Visit Diagnosis Plan: Hypothyroidism, unspecified Discussion: Check TSH and free T4 ICD-9 : [...] R53.83 03/17/2016 Appointment: Alexandra Carroll WPtel: [address] [place], [place] [id number] 03/16 nvm~sl 03/17 confirmed`sl FOLLOW UP 03/17/2016 Patient Education: Patient Medication Summary Completed 03/17/2016 Appointment: Alexandra Carroll WPtel: [address] [place], [place] [phone] 03/11 lm~sl 03/15lm `sl 03/15 confirmed`sl FOLLOW UP 03/15/2016 Visit Plan: Discussed labeled indic ations for benzos. Since xanax is not labeled for sleep and she has never tried anything else, encouraged her to trial restoril(another benzo) since it is labeled for sleep. She agrees with this trial. Rx called to [facility] after cost comparison which is nearly the same robert. If working well, continue the [id number] office visits. Call if not working well, and will restart xanax at HS for sleep. 11/13/2015 Visit Plan: Discussed labeled indic ations for benzos. Since xanax is not labeled for sleep and she has never tried anything else, encouraged her to trial restoril(another benzo) since it is labeled for sleep. She agrees with this trial. Rx called to [facility] after cost comparison which is nearly the same robert. If working well, continue the [id number] office visits. Call if not working well, and will restart xanax at for sleep. 11/13/2015 Appointment: Woody Nae [address] [place] [address] 11/11 confirmed~ FOLLOW UP 11/13/2015 Patient Education: Patient Medication Summary Completed 11/13/2015 Appointment: Alexandra Carroll WPtel: [address] [place] [address] Suture Removal 06/23/2015 Patient Education: Patient Medication Summary Completed 06/23/2015 Visit Plan: Removal of lesion above using 3-0 punch biopsy Return in 10 days for suture removal 06/12/2015 Appointment: Alexandra Carroll WPtel: [address] [place] [address] 06/10 lm ~ ACUTE ILLNESS 06/12/2015 Patient Education: Patient Medication Summary Completed 06/12/2015 Referral: Soy Garcia WPtel: [address] Schedule patient around lunch time and 3 weeks from 04/22/2015 ~ Spoke with Kiesha at Dr. Sandoval Office and 04/24/15 and scheduled the patient ~ 04/24/15 Patient is informed~ 06/03 Patient canceled the appointment ~ Patient did not show up for scheduled appointment-sp Appointment Requested 05/21/2015 Appointment: Alexandra Carroll WPtel: [address] [place] [address] 05/05/2015 Patient Education: Patient Medication Summary Completed 05/05/2015 Visit Plan: Starts PT today Schedul e with Dr. Garcia for epidural CT abdomen/pelvis results discussed Sees [facility] in April and will get checked then 04/22/2015 Appointment: Alexandra Carroll [facility]Ptel: [phone] 04/21 confirmed~lb ACUTE ILLNESS 04/22/2015 Patient Education: Patient Medication Summary Completed 04/22/2015 Referral: Lincoln [facility]el[phone] [facility] Referral Initiated 04/10/2015 Patient Education: Patient Medication Summary Completed 04/09/2015 Visit Plan: Start with lumosacral s pine x-ray--will likely need MRI of L/S spine x-ray Needs urology--has had to have bladder stretched in past Tivorbex 03/24/2015 Visit Plan: Start with lumosacral s pine x-ray--will likely need MRI of L/S spine x-ray Needs urology--has had to have bladder stretched in past Tivorbex 03/24/2015 Appointment: Alexandra Carroll WPtel: [id number] 03/21/15 appt confirmed cn ACUTE ILLNESS 03/24/2015 Patient Education: Patient Medication Summary Completed 03/24/2015 Visit Plan: Saline nasal flushes pr n. Tylenol/Motrin prn headache. Notify if persists/symptoms worsening. Cefuroxime to cover both sinuses and UTI Culture urine Check lab 02/27/2015 Visit Plan: Saline nasal flushes pr n. Tylenol/Motrin prn headache. Notify if persists/symptoms worsening. Cefuroxime to cover both sinuses and UTI Culture urine Check lab 02/27/2015 Appointment: Alexandra Carroll WPtel: [id number] 02/26/15 vm to confirm and need new insu meri on file is inactive cn....02/27/15 appt confirmed cn ACUTE ILLNESS 02/27/2015 Patient Education: Patient Medication Summary Completed 02/27/2015 Visit Plan: Lab discussed Stop simv astatin Check lipids in 6mos Continue all other meds at current dose Had Pap and Mammo 3 weeks ago 06/13/2014 Appointment: Alexandra Carroll WPtel: [address] [place], [place] [id number] Annual Well Visit 06/13/2014 Patient Education: Patient Medication Summary Completed 06/13/2014 Visit Plan: Toradol 60 mg IM today Has a script for promethazine which she sill take for nausea Clear liquids today, then advance diet as tolerated, 04/18/2014 Appointment: Shalini Walters WPtel: [address] [place] [address] ACUTE ILLNESS 04/18/2014 Patient Education: Patient Medication Summary Completed 04/18/2014 Visit Plan: Check lab in May then fwup Can try decreasing xanax to 1mg q HS with melatonin 5-10mg q HS 12/05/2013 Appointment: Alexandra Carroll WPtel: [address] [place], [place] [id number] 12/04 FOLLOW UP 12/05/2013 Patient Education: Patient Medication Summary Completed 12/05/2013 Visit Plan: Change Claritin-D to Cl aritin Add omnaris q HS Check fasting lab in AM Kenalog today 06/05/2013 Appointment: Alexandra Carroll WPtel: [address] [place] [address] FOLLOW UP 06/05/2013 Patient Education: Patient Medication Summary Completed 06/05/2013 Appointment: Alexandra Carroll WPtel: [address] [place], [place] [phone] FOLLOW UP 05/22/2013 Patient Education: Patient Medication Summary Completed 05/22/2013 Visit Plan: Zovirax for 2wks Notify if pain worsens or if persists 04/05/2013 Appointment: Alexandra Carroll WPtel: [address] [place], [place] [id number] ACUTE ILLNESS 04/05/2013 Patient Education: Patient Medication Summary Completed 04/05/2013 Visit Plan: Keep Wellbutrin at curr ent dose Pt did see for counseling 03/26/2013 Appointment: Alexandra Carroll WPtel: [address] [place] [address] ACUTE ILLNESS 03/26/2013 Patient Education: Patient Medication Summary Completed 03/26/2013 Visit Plan: Continue citalopram at current dose Increase xanax to 1-2mg q HS for sleep Add Wellbutrin Sr 100mg q AM Start Counseling 03/06/2013 Appointment: Alexandra Carroll WPtel: [address] [place] [address] ACUTE ILLNESS 03/06/2013 Patient Education: Patient Medication Summary Completed 03/06/2013 Visit Plan: Toradol today Add pamel or q HS Fioricet 2 po q6hrs prn TARIQ Daily neck stretches and topical biofreeze 11/29/2012 Appointment: Alexandra Carroll WPtel: [address] [place] [address] ACUTE ILLNESS 11/29/2012 Patient Education: Patient Medication Summary Completed 11/29/2012 Visit Plan: Proceed with cardiac ev aluation--will likely need cardiac cath due to nonreproducible pain and strong family history of CAD 09/26/2012 Appointment: Alexandra Carroll WPtel: [address] [place] [address] ACUTE ILLNESS 09/26/2012 Patient Education: Patient Medication Summary Completed 09/26/2012 Visit Plan: Start Miralax once annie y Check pelvic US 07/11/2012 Appointment: Alexandra Carroll WPtel: [address] [place] [address] ACUTE ILLNESS 07/11/2012 Patient Education: Patient Medication Summary Completed 07/11/2012 Appointment: Alexandra Carroll WPtel: [address] [place] [address] US LAB 02/17/2012 Patient Education: Patient Medication Summary Completed 02/17/2012 Visit Plan: Check fasting lab Start daily ca with Vit D Cont CPAP Mammo up-to-date Hemoccult card given 02/02/2012 Appointment: Alexandra Carroll WPtel: [address] [place], [place] [id number] 02/02/2012 Patient Education: Patient Medication Summary Completed 02/02/2012 Appointment: Alexandra Carroll WPtel: [address] [place] [address] UA 08/27/2011 Patient Education: Patient Medication Summary Completed 08/27/2011 Visit Plan: Levaquin and Diflucan f or 1wk Then cipro QOD for prophylaxis 08/17/2011 Appointment: Alexandra Carroll WPtel: [address] [place] [address] FOLLOW UP 08/17/2011 Patient Education: Patient Medication Summary Completed 08/17/2011 Appointment: Alexandra Carroll WPtel: [address] [place] [address] UA 12/28/2010 Patient Education: Patient Medication Summary Completed 12/28/2010 Appointment: Alexandra Carroll WPtel: [address] [place] [address] UA 11/09/2010 Patient Education: Patient Medication Summary Completed 11/09/2010 Appointment: Alexandra Carroll WPtel: [address] [place] [address] UA 10/29/2010 Patient Education: Patient Medication Summary Completed 10/29/2010 Visit Plan: pt will notify if sympt oms worsen while waiting for culture results. Cipro and Pyridium RX. Offered urology consult due to UTI frequency. Pt. reports that she has gone to urology before and felt offended because they "ordered a lot of tests without even talking to me". RX for Keflex for use after sexual intercourse as she had previously been taking. 10/14/2010 Appointment: Steph Bowen WPtel: [address] [place] [address] ACUTE ILLNESS 10/14/2010 Patient Education: Patient Medication Summary Completed 10/14/2010 Referral: Florian Baig WPtel: [facility] [address], [facility] 1 [id number] [place] Referral Initiated Referral: Luis Enrique Jasso WPtel: [facility] [address], [facility] 1 [id number] [place] Referral Appointment Requested Referral: Florian Baig WPtel: [facility] [address], [address] [place] Referral Appointment Requested Referral: Caleb Glaser WPtel: [address] [id number] [place] Referral Appointment Requested Referral: Florian Baig WPtel: [facility] [address], [facility] 1 [id number] [place] Referral Initiated Referral: Florian Baig WPtel: [facility] [address], [address] [place] Referral Appointment Requested Instructions Comment . Toradol 60 mg IM t tianna Has a script for promethazine which she sill take for nausea Clear liquids today, then advance diet as tolerated, . Supportive care. Rest, Fluids, Tylenol/Motrin prn fever or bodyaches. Notify if worsening symptoms. . Lab discussed Stop simvastatin Check lipids in 6mos Continue all other meds at current dose Had Pap and Mammo 3 weeks ago . Change Claritin-D to Claritin Add omnaris q HS Check fasting lab in AM Kenalog today . pt will notify if symptoms worsen while waiting for culture results. Cipro and Pyridium RX. Offered urology consult due to UTI frequency. Pt. reports that she has gone to urology before and felt offended because they "ordered a lot of tests without even talking to me". RX for Keflex for use after sexual intercourse as she had previously been taking. . Starts PT today Schedule with Dr. Garcia for epidural CT abdomen/pelvis results discussed Sees [facility] in April and will get checked then . Check lab in May then fwup Can try decreasing xanax to 1mg q HS with melatonin 5-10mg q HS . Start with lumosac ral spine x-ray--will likely need MRI of L/S spine x-ray Needs urology--has had to have bladder stretched in past Tivorbex . Start with lumosac ral spine x-ray--will likely need MRI of L/S spine x-ray Needs urology--has had to have bladder stretched in past Tivorbex . Check fasting lab Start daily ca with Vit D Cont CPAP Mammo up-to-date Hemoccult card given . Saline nasal flush es prn. Tylenol/Motrin prn headache. Notify if persists/symptoms worsening. Cefuroxime to cover both sinuses and UTI Culture urine Check lab . Saline nasal flush es prn. Tylenol/Motrin prn headache. Notify if persists/symptoms worsening. Cefuroxime to cover both sinuses and UTI Culture urine Check lab . Due to hx, ERx Cef dinir and Prednisone (discussed risks for both) Given bottle for nasal saline rinses Tylenol/Ibuprofen prn pain/fever Fluids/rest Discussed s/s of worsening, RTC if no improvement . Due to hx, ERx Cef dinir and Prednisone (discussed risks for both) Given bottle for nasal saline rinses Tylenol/Ibuprofen prn pain/fever Fluids/rest Discussed s/s of worsening, RTC if no improvement . Levaquin and Diflu can for 1wk Then cipro QOD for prophylaxis . Continue citalopra m at current dose Increase xanax to 1-2mg q HS for sleep Add Wellbutrin Sr 100mg q AM Start Counseling . Saline nasal flush es prn. Tylenol/Motrin prn headache. Notify if persists/symptoms worsening. . Zovirax for 2wks Notify if pain worsens or if persists . Start Miralax once daily Check pelvic US . Removal of lesion above using 3-0 punch biopsy Return in 10 days for suture removal . Keep Wellbutrin at current dose Pt did see for counseling . Toradol today Add pamelor q HS Fioricet 2 po q6hrs prn TARIQ Daily neck stretches and topical biofreeze . Proceed with cardi ac evaluation--will likely need cardiac cath due to nonreproducible pain and strong family history of CAD . Discussed labeled indications for benzos. Since xanax is not labeled for sleep and she has never tried anything else, encouraged her to trial restoril(another benzo) since it is labeled for sleep. She agrees with this trial. Rx called to [facility] after cost comparison which is nearly the same robert. If working well, continue the [id number] office visits. Call if not working well, and will restart xanax at HS for sleep. . Discussed labeled indications for benzos. Since xanax is not labeled for sleep and she has never tried anything else, encouraged her to trial restoril(another benzo) since it is labeled for sleep. She agrees with this trial. Rx called to [facility] after cost comparison which is nearly the same robert. If working well, continue the [id number] office visits. Call if not working well, and will restart xanax at HS for sleep.
--- OUTSIDE RECORDS SUMMARY | 2019-09-02 00:38 | XMS REPORT | Continuity of Care Document ---
Author Organization Unknown Address Unknown Phone Unavailable Allergies Active Description Code Type Severity Reaction Onset Reported/Identified Relationship to Patient Clinical Status Yes AMOXICILLIN UNKNOWN UNKNOWN Yes CEFTRIAXONE UNKNOWN UNKNOWN Yes CLINDAMYCIN HCL S EVERE SEVERE Yes KEFLEX UNKNOWN UNKNOWN Yes MORPHINE UNKNOWN UNKNOWN Yes SULFAMETHOXAZOLE-TRIMETHOPRIM UNKNOWN UNKNOWN Yes ZOLMITRIPTAN UNKNOWN UNKNOWN Yes Sulfa (Sulfonamide Antibiotics) [id number] Drug Allergy Unknown N/A 008 Yes zolmitriptan [id number] Drug Allergy Unknown N/A 04/20/2007 Yes Sulfa (Sulfonamide Antibiotics) [id number] Drug Allergy Severe ANAPHYLAXIS 10/06/2018 Yes amoxicillin [id number] Drug Aller gy Mild RASH 10/06/2018 Yes ceftriaxone [id number] Drug Aller gy Mild RASH 10/06/2018 Yes cephalexin [id number] Drug Allerg y Mild RASH 10/06/2018 Yes morphine [id number] Drug Allergy Mild UPSET STOMACH, 10/06/2018 Yes zolmitriptan [id number] Drug Allergy Mild RASH 10/06/2018 Medications Medication Packaging Start Date St op Date Route Dosage Sig LEVOFLOXACIN PREMIX IV BAG I NJ 500 MG/100CC (LEVAQUIN IV PREMIX 100CC BAG) MG 10/26/2018 10/27/19 19 ONCE&210 0 LACTATED RINGERS 1000CC IV BAG INJ ml 10/26/2018 11/02/2018 CONTINUOUSEVERY 0 Hour D5 LAC RINGERS 1000CC IV BAG INJ ml 10/26/2018 11/02/2018 CONTINUOUSEVERY 0 Hour FENTANYL INJ 100 MCG/2CC VIAL MCG 10/26/2018 10/26/2018 ONCE&2344 METOCLOPRAMIDE VIAL INJ 10 M G/2CC (REGLAN 2CC VIAL) MG 10/26/2018 11/05/2018 PRN Q6H ENALAPRIL VIAL INJ 1.25 MG/CC (VASOTEC VIA L) MG 10/26/2018 10/29/2018 PRN Q6H Hydromorphone inj 2mg/cc vial (Dilaudid) MG 10/27/2018 11/03/2018 PRN Q4H FENTANYL INJ 100 MCG/2CC VIAL MCG 10/27/2018 10/27/2018 ONCE&0025 FENTANYL INJ 100 MCG/2CC VIAL MCG 10/27/2018 10/27/2018 ONCE&0046 Hydromorphone inj 2mg/cc vial (Dilaudid) MG 10/27/2018 11/03/2018 PRN Q4H ALBUTEROL SVN 2.5MG/3CC LIQ 2.5 MG (PROVENTIL LINN 2.5MG/3CC) MG 10/27/2018 11/05/2018 QID&0600,1100,1600,2100 PROMETHAZINE VIAL INJ 25 MG/CC (PHENERGAN VIAL) MG 10/27/2018 11/05/2018 PRN QID Normal SALINE 0.9 % (NS 100cc) (plain bag) ml 10/27/2018 11/11/2018 CONTINUOUSEVERY 0 Hour LEVOFLOXACIN PREMIX IV BAG I NJ 500 MG/100CC (LEVAQUIN IV PREMIX 100CC BAG) MG 10/27/2018 11/03/19 19 Daily&09 00 PANTOPRAZOLE VIAL INJ 40 MG (PROTONIX IV) MG 10/27/2018 11/05/2018 Daily&0900 NORMAL SALINE 1000CC IV BAG INJ 0.9 % (NS 1000CC IV BAG) ml 10/27/2018 11/11/2018 CONTINUOUSEVERY 0 Hour ONDANSETRON VIAL INJ 4 MG/2CC (ZOFRAN 2CC VIAL) MG 10/27/2018 11/03/2018 PRN Q4H Diazepam inj SYRINGE 5mg/mL 2mL (Valium) MG 10/27/2018 11/03/2018 PRN Q4H LEVOFLOXACIN PREMIX IV BAG I NJ 500 MG/100CC (LEVAQUIN IV PREMIX 100CC BAG) MG 10/27/2018 10/28/19 19 ONCE&210 0 Normal SALINE 0.9 % (NS 100cc) (plain bag) ml 10/28/2018 10/28/2018 ONCE&1330 Magnesium Sulfate 1 Gm in D5 W IV piggyback Premix 100mL GM 10/28/2018 10/28/2018 ONCE&1415 Magnesium Sulfate 1 Gm in D5 W IV piggyback Premix 100mL GM 10/28/2018 10/28/2018 ONCE&1515 Normal SALINE 0.9 % (NS 100cc) (plain bag) ml 10/28/2018 10/28/2018 ONCE&1600 Normal SALINE 0.9 % (NS 100cc) (plain bag) ml 10/28/2018 10/28/2018 ONCE&1700 Potassium Chloride in water IV piggyback 20mEQ Premix IV MEQ 10/29/2018 10/29/2018 ONCE&1030 Potassium Chloride in water IV piggyback 20mEQ Premix IV MEQ 10/29/2018 10/29/2018 ONCE&1130 Magnesium Sulfate 1 Gm in D5 W IV piggyback Premix 100mL GM 10/29/2018 10/29/2018 ONCE&1200 POTASSIUM CL 40MEQ VIAL INJ 40 MEQ/20CC (KCL VIAL) MEQ 10/29/2018 10/29/2018 ONCE&1235 ENOXAPARIN SYRINGE INJ 30 MG (LOVENOX SYRI NGE) MG 10/30/2018 11/08/2018 Daily&0900 Potassium Chloride in water IV piggyback 20mEQ Premix IV MEQ 10/30/2018 10/30/2018 ONCE&0900 Normal SALINE 0.9 % (NS 100cc) (plain bag) ml 10/30/2018 11/06/2018 Q12H&0200,1400 Amino acids 3%-lytes-glyceri n) IV parenteral solution (Procalamine) MLS 10/30/2018 11/04/2018 CONTINUOUSEVERY 0 Hour Amino acids 3%-lytes-glyceri n) IV parenteral solution (Procalamine) MLS 10/30/2018 01/11/2022 EVERY 7 Day&1430 KETOROLAC VIAL INJ 30 MG/CC (TORADOL VIAL) MG 10/30/2018 11/04/2018 Q6H&0100,0700,1300,1900 Vancomycin-water IV piggyback 1 Gm Premix GM 10/31/2018 11/10/2018 Q12H&0200,1400 DIPHENHYDRAMINE VIAL INJ 50 MG/CC (BENADRYL VIAL) MG 10/31/2018 11/03/2018 PRN Q6H POTASSIUM CHLORIDE TAB 10 MEQ (K-DUR) MEQ 11/01/2018 11/30/2018 BID&0800,2000 Problems Date Dx Coded Attending Type Code Diagnosis Diagnosed By 09/29/2012 TEDDY [facility]AYTAN [facility], [place] FACP CCDS Ot 244.9 09/29/2012 TEDDY [facility]AY[facility]AN [facility], [place] FACP CCDS Ot 272.4 09/29/2012 TEDDY [facility]AYTAN [facility], [facility] FACP CCDS Ot 729.1 09/29/2012 TEDDY [facility]AYTAN [facility], [place] FACP CCDS Ot 780.57 09/29/2012 TEDDY [facility], [facility] FACP CCDS Ot 786.59 09/29/2012 TEDDY [facility], [facility] FACP CCDS Ot V17.49 09/29/2012 T[facility]DY [facility], [facility] FACP CCDS Ot V58.69 03/24/2015 Ot 599.70 04/09/2015 ALEXANDRA CARROLL DO Ot M54.5 10/26/2017 Ot M41.86 OTH ER FORMS OF SCOLIOSIS, LUMBAR REGION 10/26/2017 Ot M47.816 SP ONDYLOSIS W/O MYELOPATHY OR RADICULOPA 10/26/2017 Ot N39.9 DISO RDER OF URINARY SYSTEM, UNSPECIFIED 11/24/2017 ALEXANDRA CARROLL DO Ot M54.5 LOW BACK PAIN 11/24/2017 Ot M41.86 OTH ER FORMS OF SCOLIOSIS, LUMBAR REGION 11/24/2017 Ot M47.816 SP ONDYLOSIS W/O MYELOPATHY OR RADICULOPA 11/24/2017 Ot N39.9 DISO RDER OF URINARY SYSTEM, UNSPECIFIED 11/24/2017 BRENNA DIAZ MD Ot F32.9 MAJOR DEPRESSIVE DISORDER, SINGLE EPISOD 11/24/2017 BRENNA DIAZ MD Ot G43.909 MIGRAINE, UNSP, NOT INTRACTABLE, WITHOUT 11/24/2017 BRENNA DIAZ MD Ot M25.512 PAIN IN LEFT SHOULDER 11/24/2017 BRENNA DIAZ MD Ot S22.018A OTH FRACTURE OF FIRST THORACIC VERTEBRA, 11/24/2017 BRENNA DIAZ MD Ot S22.028A OTH FRACTURE OF SECOND THORACIC VERTEBRA 11/24/2017 BRENNA DIAZ MD, Ot S42.012A ANTERIOR DISP FX OF STERNAL END OF LEFT 11/24/2017 BRENNA DIAZ MD, Ot V47.5XXA SUCCESS COACH INJURED IN [facility] WITH STATNRY 11/24/2017 BRENNA DIAZ MD, Ot Z23 ENCOUNTER FOR IMMUNIZATION 11/24/2017 BRENNA DIAZ MD, Ot Z87.19 PERSONAL HISTORY OF OTHER DISEASES OF 11/24/2017 BRENNA DIAZ MD, Ot Z88.2 ALLERGY STATUS TO SULFONAMIDES STATUS 11/24/2017 BRENNA DIAZ MD, Ot Z88.5 ALLERGY STATUS TO NARCOTIC AGENT STATUS 11/24/2017 BRENNA DIAZ MD, Ot Z88.8 ALLERGY STATUS TO OTH DRUG/MEDS/BIOL SUB 11/24/2017 BRENNA DIAZ MD Ot Z90.89 ACQUIRED ABSENCE OF OTHER ORGANS 11/24/2017 BRENNA DIAZ MD Ot Z98.890 OTHER SPECIFIED POSTPROCEDURAL STATES 11/26/2017 BRENNA DIAZ MD Ot F32.9 MAJOR DEPRESSIVE DISORDER, SINGLE EPISOD 11/26/2017 BRENNA DIAZ MD Ot G43.909 MIGRAINE, UNSP, NOT INTRACTABLE, WITHOUT 11/26/2017 BRENNA DIAZ MD Ot M25.512 PAIN IN LEFT SHOULDER 11/26/2017 BRENNA DIAZ MD Ot S22.018A OTH FRACTURE OF FIRST THORACIC VERTEBRA, 11/26/2017 BRENNA DIAZ MD Ot S22.028A OTH FRACTURE OF SECOND THORACIC VERTEBRA 11/26/2017 BRENNA DIAZ MD Ot S42.012A ANTERIOR DISP FX OF STERNAL END OF LEFT 11/26/2017 BRENNA DIAZ MD, Ot V47.5XXA SUCCESS COACH INJURED IN [facility] WITH STATNRY 11/26/2017 BRENNA DIAZ MD, Ot Z23 ENCOUNTER FOR IMMUNIZATION 11/26/2017 BRENNA DIAZ MD, Ot Z87.19 PERSONAL HISTORY OF OTHER DISEASES OF 11/26/2017 BRENNA DIAZ MD Ot Z88.2 ALLERGY STATUS TO SULFONAMIDES STATUS 11/26/2017 BRENNA DIAZ MD Ot Z88.5 ALLERGY STATUS TO NARCOTIC AGENT STATUS 11/26/2017 BRENNA DIAZ MD Ot Z88.8 ALLERGY STATUS TO OTH DRUG/MEDS/BIOL SUB 11/26/2017 BRENNA DIAZ MD Ot Z90.89 ACQUIRED ABSENCE OF OTHER ORGANS 11/26/2017 BRENNA DIAZ MD Ot Z98.890 OTHER SPECIFIED POSTPROCEDURAL STATES 10/02/2018 ORENDER DO, ALEXANDRA S Ot M54.5 LOW BACK PAIN 10/02/2018 Ot M41.86 OT ER FORMS OF SCOLIOSIS, LUMBAR REGION 10/02/2018 Ot M47.816 SP ONDYLOSIS W/O MYELOPATHY OR RADICULOPA 10/02/2018 Ot N39.9 DISO RDER OF URINARY SYSTEM, UNSPECIFIED 10/03/2018 FRED RUDOLPH MD Ot Z01.818 ENCOUNTER FOR OTHER PREPROCEDURAL EXAMIN 10/03/2018 FRED RUDOLPH MD Ot Z12. 11 ENCOUNTER FOR SCREENING FOR MALIGNANT NE 10/06/2018 FRED RUDOLPH MD Ot E06. 3 AUTOIMMUNE THYROIDITIS 10/06/2018 FRED RUDOLPH MD Ot F32. 9 MAJOR DEPRESSIVE DISORDER, SINGLE EPISOD 10/06/2018 FRED RUDOLPH MD Ot G47. 33 OBSTRUCTIVE SLEEP APNEA (ADULT) (PEDIATR 10/06/2018 FRED RUDOLPH MD Ot J30. 2 OTHER SEASONAL ALLERGIC RHINITIS 10/06/2018 FRED RUDOLPH MD Ot J44. 9 CHRONIC OBSTRUCTIVE PULMONARY DISEASE, U 10/06/2018 FRED RUDOLPH MD Ot K21. 9 GASTRO-ESOPHAGEAL REFLUX DISEASE WITHOUT 10/06/2018 FRED RUDOLPH MD Ot K57. 30 DVRTCLOS OF LG INT W/O PERFORATION OR AB 10/06/2018 FRED RUDOLPH MD Ot M54. 2 CERVICALGIA 10/06/2018 FRED RUDOLPH MD Ot Z12. 11 ENCOUNTER FOR SCREENING FOR MALIGNANT NE 10/06/2018 FRED RUDOLPH MD Ot Z79.899 OTHER RETIREMENT (CURRENT) DRUG THERAPY 10/06/2018 FRED RUDOLHP MD Ot Z80. 0 FAMILY HISTORY OF MALIGNANT NEOPLASM OF 10/11/2018 FRED RUDOLPH MD Ot E06. 3 AUTOIMMUNE THYROIDITIS 10/11/2018 FRED RUDOLPH MD Ot F32. 9 MAJOR DEPRESSIVE DISORDER, SINGLE EPISOD 10/11/2018 FRED RUDOLPH MD Ot G47. 33 OBSTRUCTIVE SLEEP APNEA (ADULT) (PEDIATR 10/11/2018 FRED RUDOLPH MD Ot J30. 2 OTHER SEASONAL ALLERGIC RHINITIS 10/11/2018 FRED RUDOLPH MD, Ot J44. 9 CHRONIC OBSTRUCTIVE PULMONARY DISEASE, U 10/11/2018 FRED RUDOLPH MD, Ot K21. 9 GASTRO-ESOPHAGEAL REFLUX DISEASE WITHOUT 10/11/2018 FRED RUDOLPH MD Ot K57. 30 DVRTCLOS OF LG INT W/O PERFORATION OR AB 10/11/2018 FRED RUDOLPH MD Ot M54. 2 CERVICALGIA 10/11/2018 FRED RUDOLPH MD Ot Z12. 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 0 FAMILY HISTORY OF MALIGNANT NEOPLASM OF 10/26/2018 BENJYER DO, ALEXANDRA S Ot M54.5 LOW BACK PAIN 10/26/2018 Ot M41.86 OTH ER FORMS OF SCOLIOSIS, LUMBAR REGION 10/26/2018 Ot M47.816 SP ONDYLOSIS W/O MYELOPATHY OR RADICULOPA 10/26/2018 Ot N39.9 DISO RDER OF URINARY SYSTEM, UNSPECIFIED 10/26/2018 LLOYD ALLEN APRN Ot D64 .9 ANEMIA, UNSPECIFIED 10/26/2018 LLOYD ALLEN APRN Ot E03 .9 HYPOTHYROIDISM, UNSPECIFIED 10/26/2018 LLOYD ALLEN APRN Ot F32 .9 MAJOR DEPRESSIVE DISORDER, SINGLE EPISOD 10/26/2018 LLOYD ALLEN APRN Ot G43.909 MIGRAINE, UNSP, NOT INTRACTABLE, WITHOUT 10/26/2018 LLOYD ALLEN APRN Ot G47.30 SLEEP APNEA, UNSPECIFIED 10/26/2018 LLOYD ALLEN APRN Ot K21 .9 GASTRO-ESOPHAGEAL REFLUX DISEASE WITHOUT 10/26/2018 LLOYD ALLEN APRN Ot K56.609 UNSP INTESTNL OBST, UNSP TO PARTIAL V 10/26/2018 LLOYD ALLEN APRN Ot M79 .7 FIBROMYALGIA 10/26/2018 LLOYD ALLEN APRN Ot Z79.52 CAR 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 SYSTEMIC 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 10/26/2018 LLOYD ALLEN APRN Ot Z87.19 PERSONAL HISTORY OF OTHER DISEASES OF TH 10/26/2018 LLOYD ALLEN APRN Ot Z87.440 PERSONAL HISTORY OF URINARY (TRACT) INFE 10/26/2018 LLOYD ALLEN APRN Ot Z88 .0 ALLERGY STATUS TO PENICILLIN 10/26/2018 LLOYD ALLEN APRN Ot Z88 .1 ALLERGY STATUS TO OTHER ANTIBIOTIC AGENT 10/26/2018 LLOYD ALLEN APRN Ot Z88 .2 ALLERGY STATUS TO SULFONAMIDES STATUS 10/26/2018 LLOYD ALLEN APRN Ot Z88 .5 ALLERGY STATUS TO NARCOTIC AGENT STATUS 10/26/2018 LLOYD ALLEN APRN Ot Z88 .8 ALLERGY STATUS TO OTH DRUG/MEDS/BIOL SUB 10/26/2018 LLOYD ALLEN APRN Ot Z90.49 ACQUIRED ABSENCE OF OTHER SPECIFIED PART 10/26/2018 LLOYD ALLEN APRN Ot Z90.89 ACQUIRED ABSENCE OF OTHER ORGANS 10/26/2018 LLOYD ALLEN APRN Ot Z98.890 OTHER SPECIFIED POSTPROCEDURAL STATES 10/26/2018 LLOYD ALLEN APRN Ot Z99.89 DEPENDENCE ON OTHER ENABLING MACHINES AN 10/27/2018 Dorothy Buenrostro W 560.2 VOLVULUS 10/27/2018 Dorothy Buenrostro W K56.2 VOLVULUS 10/28/2018 LLOYD ALLEN APRN Ot D64 .9 ANEMIA, UNSPECIFIED 10/28/2018 LLOYD ALLEN APRN Ot E03 .9 HYPOTHYROIDISM, UNSPECIFIED 10/28/2018 LLOYD ALLEN APRN Ot F32 .9 MAJOR DEPRESSIVE DISORDER, SINGLE EPISOD 10/28/2018 LLOYD ALLEN APRN Ot G43.909 MIGRAINE, UNSP, NOT INTRACTABLE, WITHOUT 10/28/2018 LLOYD ALLEN APRN Ot G47.30 SLEEP APNEA, UNSPECIFIED 10/28/2018 LLOYD ALLEN APRN Ot K21 .9 GASTRO-ESOPHAGEAL REFLUX DISEASE WITHOUT 10/28/2018 LLOYD ALLEN APRN Ot K56.609 UNSP INTESTNL OBST, UNSP TO PARTIAL V 10/28/2018 LLOYD ALLEN APRN Ot M79 .7 FIBROMYALGIA 10/28/2018 LLOYD ALLEN APRN Ot Z79.52 CAR 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 SYSTEMIC STER 10/28/2018 LLOYD ALLEN APRN Ot Z87.19 PERSONAL HISTORY OF OTHER DISEASES OF TH 10/28/2018 LLOYD ALLEN APRN Ot Z87.440 PERSONAL HISTORY OF URINARY (TRACT) INFE 10/28/2018 LLOYD ALLEN APRN Ot Z88 .0 ALLERGY STATUS TO PENICILLIN 10/28/2018 LLOYD ALLEN APRN Ot Z88 .1 ALLERGY STATUS TO OTHER ANTIBIOTIC AGENT 10/28/2018 LLOYD ALLEN APRN Ot Z88 .2 ALLERGY STATUS TO SULFONAMIDES STATUS 10/28/2018 LLOYD ALLEN APRN Ot Z88 .5 ALLERGY STATUS TO NARCOTIC AGENT STATUS 10/28/2018 LLOYD ALLEN APRN Ot Z88 .8 ALLERGY STATUS TO OTH DRUG/MEDS/BIOL SUB 10/28/2018 LLOYD ALLEN APRN Ot Z90.49 ACQUIRED ABSENCE OF OTHER SPECIFIED PART 10/28/2018 LLOYD ALLEN APRN Ot Z90.89 ACQUIRED ABSENCE OF OTHER ORGANS 10/28/2018 LLOYD ALLEN APRN Ot Z98.890 OTHER SPECIFIED POSTPROCEDURAL STATES 10/28/2018 LLOYD ALLEN APRN Ot Z99.89 DEPENDENCE ON OTHER ENABLING MACHINES AN 10/30/2018 Dorothy Buenrostro W 560.2 VOLVULUS 10/30/2018 Dorothy Buenrostro W K56.2 VOLVULUS 10/30/2018 BuenrostroDorothy olivo W 560.2 VOLVULUS 10/30/2018 Dorothy Buenrostro W K56.2 VOLVULUS 10/31/2018 MAGAN LUDWIG LEASE ANALYST Ot K63.89 OTHER SPECIFIED DISEASES OF INTESTINE 10/31/2018 MAGAN LUDWIG LEASE ANALYST Ot N85.8 OTHER SPECIFIED NONINFLAMMATORY DISORDER 10/31/2018 MAGAN LUDWIG LEASE ANALYST Ot R10.84 GENERALIZED ABDOMINAL PAIN 10/31/2018 MAGAN LUDWIG LEASE ANALYST Ot Z90.49 ACQUIRED ABSENCE OF OTHER SPECIFIED PART 10/31/2018 MAGAN LUDWIG APRN Ot Z98.890 OTHER SPECIFIED POSTPROCEDURAL STATES 11/01/2018 Dorothy Buenrostro W 244.9 UNSPECIFIED HYPOTHYROIDISM 11/01/2018 Dorothy Buenrostro W 275.2 DISORDERS OF MAGNESIUM METABOLISM 11/01/2018 Dorothy Buenrostro W 276.8 HYPOPOTASSEMIA 11/01/2018 Dorothy Buenrostro W 296.20 MAJOR DEPRESSIVE DISORDER, SINGLE EPISODE, UNSPECIFIED DEGREE 11/01/2018 Dorothy Buenrostro W 300.00 ANXIETY STATE, UNSPECIFIED 11/01/2018 Adilene Buenrostroi W 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, UNSPECIFIED 11/01/2018 Adilene Buenrostroi W 552.3 DIAPHRAGMATIC HERNIA WITH OBSTRUCTION 11/01/2018 Dorothy Buenrostro W 560.2 VOLVULUS 11/01/2018 Dorothy Buenrostro W 564.00 CONSTIPATION, UNSPECIFIED 11/01/2018 Dorothy Buenrostro W 692.9 CONTACT DERMATITIS AND OTHER ECZEMA, UNSPECIFIED CAUSE 11/01/2018 Dorothy Buenrostro W E03.9 HYPOTHYROIDISM, UNSPECIFIED 11/01/2018 Dorothy Buenrostro W E83.42 HYPOMAGNESEMIA 11/01/2018 Dorothy Buenrostro W E87.6 HYPOKALEMIA 11/01/2018 Dorothy Buenrostro W F32.9 MAJOR DEPRESSIVE DISORDER, SINGLE EPISODE, UNSPECIFIED 11/01/2018 Dorothy Buenrostro W F41.9 ANXIETY DISORDER, UNSPECIFIED 11/01/2018 Adilene Buenrostroi W G47.30 SLEEP APNEA, UNSPECIFIED 11/01/2018 Dorothy Buenrostro W K44.9 DIAPHRAGMATIC HERNIA WITHOUT OBSTRUCTION OR GANGRENE 11/01/2018 Dorothy Buenrostro W K56.2 VOLVULUS 11/01/2018 Dorothy Buenrostro W K59.09 OTHER CONSTIPATION 11/01/2018 Dorothy Buenrostro W L30.9 DERMATITIS, UNSPECIFIED 11/01/2018 Dorothy Buenrostro W V13.02 PERSONAL HISTORY OF URINARY (TRACT) INFECTION 11/01/2018 Dorothy Buenrostro W Z87.440 PERSONAL HISTORY OF URINARY (TRACT) INFECTIONS 11/22/2018 MAGAN LUDWIG APRN Ot K63.89 OTHER SPECIFIED DISEASES OF INTESTINE 11/22/2018 MAGAN LUDWIG APRN Ot N85.8 OTHER SPECIFIED NONINFLAMMATORY DISORDER 11/22/2018 MAGAN LUDWIG LEASE ANALYST Ot R10.84 GENERALIZED ABDOMINAL PAIN 11/22/2018 MAGAN LUDWIG LEASE ANALYST Ot Z90.49 ACQUIRED ABSENCE OF OTHER SPECIFIED PART 11/22/2018 MAGAN LUDWIG LEASE ANALYST Ot Z98.890 OTHER SPECIFIED POSTPROCEDURAL STATES 12/07/2018 MANGO DO, CHANDROUTIE Ot K56.609 UNSP INTESTNL OBST, UNSP TO PARTIAL V 01/03/2019 MANGO DO, CHANDROUTIE Ot K56.609 UNSP INTESTNL OBST, UNSP TO PARTIAL V 02/15/2019 MANGO DO, CHANDROUTIE Ot K56.609 UNSP INTESTNL OBST, UNSP TO PARTIAL V 02/17/2019 MANGO DO, CHANDROUTIE Ot K56.609 UNSP INTESTNL OBST, UNSP TO PARTIAL V 04/27/2019 W K43.2 Inci sional hernia Orender, Alexandra S. 04/27/2019 W K43.9 Vent ral hernia Orender, Alexandra S. 05/14/2019 W L03.114 Ce llulitis of left arm Amrita, Vandana 05/14/2019 W L25.5 Cont act dermatitis due to plant Amrita, Vandana 05/14/2019 W L03.114 Ce llulitis of left arm Amrita, Vandana 05/14/2019 W L25.5 Cont act dermatitis due to plant Amrita, Vandana 06/26/2019 W L23.9 Jose rgic dermatitis Orender, Alexandra S. 06/26/2019 W L23.9 Jose rgic dermatitis Orender, Alexandra S. 07/17/2019 W N39.0 Urin blue tract infection, site not specified Amrita, Vandana 07/17/2019 W R30.0 Dysuria Amrita, Vandana 07/17/2019 W N39.0 Urin blue tract infection, site not specified Amrita, Vandana 07/17/2019 W R30.0 Dysuria Amrita, Vandana 07/17/2019 W N39.0 Urin blue tract infection, site not specified Amrita, Vandana 07/17/2019 W R30.0 Dysuria Amrita, Vandana 07/17/2019 W N39.0 Urin blue tract infection, site not specified Amrita, Vandana 07/17/2019 W R30.0 Dysuria Amrita, Vandana 07/26/2019 W N39.0 Urin blue tract infection Orender, Alexandra S. 07/26/2019 W N39.0 Urin blue tract infection Orender, Alexandra S. 08/14/2019 W N39.0 Urin blue tract infection Orender, Alexandra S. 08/14/2019 W N39.0 Urin blue tract infection Orender, Alexandra S. Procedures There is no data. Results Test Result Range Complete blood count (CBC) with automate d white blood cell (WBC) differential - 10/26/18 14:13 Blood leukocytes automated count (number/volume) 11.1 10*3/uL 4.3-11.0 Blood erythrocytes automated count (number/volume) 4.58 10*6/uL 4.35-5.85 Venous blood hemoglobin measurement (mass/volume) 13.8 g/dL 11.5-16.0 Blood hematocrit (volume fraction) 42 % 35-52 Automated erythrocyte mean corpuscular volume 92 [ foz_us] 80-99 Automated erythrocyte mean corpuscular h emoglobin (mass per erythrocyte) 30 pg 25-34 Automated erythrocyte mean corpuscular h emoglobin concentration measurement (mass/volume) 33 g/dL 32-36 Automated erythrocyte distribution width ratio 12. 7 % 10.0- 14.5 Automated blood platelet count (count/volume) 336 10*3/uL 130-400 Automated blood platelet mean volume measurement 9.4 [foz_us] 7.4-10.4 Automated blood neutrophils/100 leukocytes 73 % 42-75 Automated blood lymphocytes/100 leukocytes 15 % 12-44 Blood monocytes/100 leukocytes 11 % 0-12 Automated blood eosinophils/100 leukocytes 1 % 0-10 Automated blood basophils/100 leukocytes 0 % 0-10 Blood neutrophils automated count (number/volume) 8.1 10*3 1.8-7.8 Blood lymphocytes automated count (number/volume) 1.7 10*3 1.0-4.0 Blood monocytes automated count (number/volume) 1. 2 10*3 0.0-1.0 Automated eosinophil count 0.1 10*3/uL 0 .0-0.3 Automated blood basophil count (count/volume) 0.0 10*3/uL 0.0-0.1 Comprehensive metabolic panel - 10/26/18 14:13 Serum or plasma sodium measurement (moles/volume) 137 mmol/L 135-145 Serum or plasma potassium measurement (moles/volume) 3.7 mmol/L 3.6-5.0 Serum or plasma chloride measurement (moles/volume) 102 mmol/L 98-107 Carbon dioxide 22 mmol/L 21-32 Serum or plasma anion gap determination (moles/volume) 13 mmol/L 5-14 Serum or plasma urea nitrogen measurement (mass/volume ) 14 mg/dL 7-18 Serum or plasma creatinine measurement (mass/volume) 0.88 mg/dL 0.60-1.30 Serum or plasma urea nitrogen/creatinine mass ratio 16 NRG Serum or plasma creatinine measurement w ith calculation of estimated glomerular filtration rate > NRG Serum or plasma glucose measurement (mass/volume) 91 mg/dL 70-105 Serum or plasma calcium measurement (mass/volume) 9.5 mg/dL 8.5-10.1 Serum or plasma total bilirubin measurement (mass/volu me) 0.6 mg/dL 0.1-1.0 Serum or plasma alkaline phosphatase autumn surement (enzymatic activity/volume) 78 U/L 40-136 Serum or plasma aspartate aminotransfera se measurement (enzymatic activity/volume) 18 U/L 5-34 Serum or plasma alanine aminotransferase measurement (enzymatic activity/volume) 8 U/L 0-55 Serum or plasma protein measurement (mass/volume) 6.9 g/dL 6.4-8.2 Serum or plasma albumin measurement (mass/volume) 4.3 g/dL 3.2-4.5 CALCIUM CORRECTED 9.3 mg/dL 8.5-10.1 Complete blood count (CBC) with automate d white blood cell (WBC) differential - 10/26/18 18:03 Blood leukocytes automated count (number/volume) 12.1 10*3/uL 4.3-11.0 Blood erythrocytes automated count (number/volume) 4.75 10*6/uL 4.35-5.85 Venous blood hemoglobin measurement (mass/volume) 14.7 g/dL 11.5-16.0 Blood hematocrit (volume fraction) 43 % 35-52 Automated erythrocyte mean corpuscular volume 91 [ foz_us] 80-99 Automated erythrocyte mean corpuscular h emoglobin (mass per erythrocyte) 31 pg 25-34 Automated erythrocyte mean corpuscular h emoglobin concentration measurement (mass/volume) 34 g/dL 32-36 Automated erythrocyte distribution width ratio 12. 6 % 10.0- 14.5 Automated blood platelet count (count/volume) 323 10*3/uL 130-400 Automated blood platelet mean volume measurement 10.1 [foz_us] 7.4-10.4 Automated blood neutrophils/100 leukocytes 72 % 42-75 Automated blood lymphocytes/100 leukocytes 17 % 12-44 Blood monocytes/100 leukocytes 10 % 0-12 Automated blood eosinophils/100 leukocytes 1 % 0-10 Automated blood basophils/100 leukocytes 0 % 0-10 Blood neutrophils automated count (number/volume) 8.7 10*3 1.8-7.8 Blood lymphocytes automated count (number/volume) 2.1 10*3 1.0-4.0 Blood monocytes automated count (number/volume) 1. 2 10*3 0.0-1.0 Automated eosinophil count 0.1 10*3/uL 0 .0-0.3 Automated blood basophil count (count/volume) 0.0 10*3/uL 0.0-0.1 Comprehensive metabolic panel - 10/26/18 18:03 Serum or plasma sodium measurement (moles/volume) 136 mmol/L 135-145 Serum or plasma potassium measurement (moles/volume) 3.7 mmol/L 3.6-5.0 Serum or plasma chloride measurement (moles/volume) 100 mmol/L 98-107 Carbon dioxide 19 mmol/L 21-32 Serum or plasma anion gap determination (moles/volume) 17 mmol/L 5-14 Serum or plasma urea nitrogen measurement (mass/volume ) 16 mg/dL 7-18 Serum or plasma creatinine measurement (mass/volume) 0.90 mg/dL 0.60-1.30 Serum or plasma urea nitrogen/creatinine mass ratio 18 NRG Serum or plasma creatinine measurement w ith calculation of estimated glomerular filtration rate > NRG Serum or plasma glucose measurement (mass/volume) 83 mg/dL 70-105 Serum or plasma calcium measurement (mass/volume) 9.9 mg/dL 8.5-10.1 Serum or plasma total bilirubin measurement (mass/volu me) 0.7 mg/dL 0.1-1.0 Serum or plasma alkaline phosphatase autumn surement (enzymatic activity/volume) 83 U/L 40-136 Serum or plasma aspartate aminotransfera se measurement (enzymatic activity/volume) 20 U/L 5-34 Serum or plasma alanine aminotransferase measurement (enzymatic activity/volume) 10 U/L 0-55 Serum or plasma protein measurement (mass/volume) 7.3 g/dL 6.4-8.2 Serum or plasma albumin measurement (mass/volume) 4.5 g/dL 3.2-4.5 CALCIUM CORRECTED 9.5 mg/dL 8.5-10.1 Lipase - 10/26/18 18:03 Lipase 47 U/L 8-78 TYPE/SCREEN - 10/26/18 20:56 ABO/RH O POSITIVE ANTIBODY SCREEN NEGATIVE EKG - 10/26/18 21:30 EKG Complete Surgical Pathology - 10/26/18 23:00 Surg Path Sent to [facility] Pathology Urine Culture - 10/26/18 23:05 PRELIM CULTURE RESULTS No Growth 24 hours FINAL CULTURE RESULTS No Growth 48 hours MEDIA PLATED Setup at 23:15 on 10/26/2018 CULTURE SOURCE cath [facility] - 10/27/18 06:11 Anion Gap 14 6-14 BUN 10 mg/dL 5-25 Calcium 8.2 mg/dL 8.3-10.4 Chloride 103 mmol/L 95-114 CO2 23 mEq/L 22-33 Creat 0.79 mg/dL 0.50-1.50 eGFR 73 mL/min/1.73m2 >59 Glucose 202 mg/dL 70-110 [place] 285 280-295 Potassium 4.1 mmol/L 3.5-5.3 Sodium 136 mmol/L 134-148 [facility] - 10/28/18 06:55 Anion Gap 16 6-14 BUN 5 mg/dL 5-25 Calcium 8.1 mg/dL 8.3-10.4 Chloride 102 mmol/L 95-114 CO2 22 mEq/L 22-33 Creat 0.64 mg/dL 0.50-1.50 eGFR 93 mL/min/1.73m2 >59 Glucose 101 mg/dL 70-110 Osmo 279 280-295 Potassium 3.7 mmol/L 3.5-5.3 Sodium 136 mmol/L 134-148 Albumin - 10/28/18 06:55 Albumin 3.1 g/dL 3.6-5.1 Magnesium - 10/28/18 06:55 Mg++ 1.5 mg/dL 1.6-2.6 Comprehensive Metabolic Panel - 10/29/18 07:48 Albumin 3.0 g/dL 3.6-5.1 ALP 57 U/L 35-130 ALT 12 U/L 6-45 Anion Gap 15 6-14 AST 25 U/L 2-40 BUN 7 mg/dL 5-25 Calcium 7.9 mg/dL 8.3-10.4 Chloride 102 mmol/L 95-114 CO2 21 mEq/L 22-33 Creat 0.65 mg/dL 0.50-1.50 eGFR 91 mL/min/1.73m2 >59 Globulin 1.7 g/dL 2.3-3.5 Glucose 80 mg/dL 70-110 Osmo 276 280-295 Potassium 3.3 mmol/L 3.5-5.3 Sodium 135 mmol/L 134-148 TBil 0.3 mg/dL 0.2-1.2 TP 4.7 g/dL 6.0-8.3 BMP - 10/30/18 06:45 Anion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
[2019-09-02 00:40] LABS: ALBUMIN 4.2 GM/DL (3.2-4.5); CHLORIDE 105 MMOL/L (98-107); POTASSIUM 3.4 MMOL/L (3.6-5.0); SODIUM 138 MMOL/L (135-145)
[2019-09-02 00:41] LABS: AMYLASE 70 U/L (25-125); CALCIUM 9.9 MG/DL (8.5-10.1)
[2019-09-02 00:42] LABS: GLUCOSE 90 MG/DL (70-105)
[2019-09-02 00:43] LABS: TOTAL PROTEIN 6.6 GM/DL (6.4-8.2)
[2019-09-02 00:44] LABS: BILIRUBIN,TOTAL 0.3 MG/DL (0.1-1.0); CARBON DIOXIDE 17 MMOL/L (21-32)
[2019-09-02 00:46] LABS: ALKALINE PHOSPHATASE 54 U/L (40-136); CREATININE SERUM 0.99 MG/DL (0.60-1.30); GFR ESTIMATED 56
[2019-09-02 00:47] LABS: BASOPHILS # (AUTO) 0.1 10^3/uL (0.0-0.1); BASOPHILS % (AUTO) 1 % (0-10); BUN/CREATININE RATIO 13; EOSINOPHILS # (AUTO) 0.1 10^3/uL (0.0-0.3); EOSINOPHILS % (AUTO) 1 % (0-10); HEMATOCRIT 41 % (35-52); HEMOGLOBIN 13.6 G/DL (11.5-16.0); LYMPHOCYTES # (AUTO) 3.7 X 10^3 (1.0-4.0); LYMPHOCYTES % (AUTO) 38 % (12-44); MEAN CORPUSCULAR HEMOGLOBIN 29 PG (25-34); MEAN CORPUSCULAR HGB CONC 33 G/DL (32-36); MEAN CORPUSCULAR VOLUME 88 FL (80-99); MEAN PLATELET VOLUME 10.6 FL (7.4-10.4); MONOCYTES # (AUTO) 1.1 X 10^3 (0.0-1.0); MONOCYTES % (AUTO) 12 % (0-12); NEUTROPHILS # (AUTO) 4.8 X 10^3 (1.8-7.8); NEUTROPHILS % (AUTO) 49 % (42-75); PLATELET COUNT 312 10^3/uL (130-400); RED CELL DISTRIBUTION WIDTH 12.6 % (10.0-14.5); WHITE BLOOD COUNT 9.7 10^3/uL (4.3-11.0)
[2019-09-02 00:49] LABS: ALANINE AMINOTRANSFERASE 8 U/L (0-55); MAGNESIUM 1.8 MG/DL (1.6-2.4)
[2019-09-02 00:50] LABS: CREATINE KINASE 40 U/L (29-168); LIPASE 37 U/L (8-78)
[2019-09-02 00:58] LABS: CREATINE KINASE MB 0.6 NG/ML (<6.6)
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
[2019-09-02 02:26] LABS: FIBRIN DEGRADATION PRODUCTS 1.05 UG/ML (0.00-0.49); PROTHROMBIN TIME PATIENT 13.8 SEC (12.2-14.7)
[2019-09-02] MEDS ORDERED: IOHEXOL 350 MG/ML 100 ML (OMNIPAQUE 350) VIAL IV ONE (02:30)
[2019-09-02] MEDS ORDERED: HOLD METFORMIN - RECEIVED CONTRAST 20 ML VIAL IV SCH (02:30)
[2019-09-02] MEDS ORDERED: NS 100 ML (IVPB) BAG IV ONE (02:30)
[2019-09-02 03:10] VITALS: BP 119/76
[2019-09-02 03:35] VITALS: BP 108/70
--- NOTE | 2019-09-02 06:44 | Diagnostic Imaging Report ---
INDICATION: Fever and cough as well as congestion. CTA chest, abdomen and pelvis Thin axial sections through the chest, abdomen and pelvis are obtained following intravenous contrast bolus. Multiplanar MIP images were reconstructed and reviewed. All CT scans use one or more of the following dose optimizing techniques: automated exposure control, MA and/or KvP adjustment based on a patient size and exam type, or iterative reconstruction. CTA CHEST: Evaluation of the pulmonary arterial system is without thromboembolism. No filling defects are seen within central, lobar or segmental branches. Thoracic aorta is normal caliber. No dissection is seen. There is no pericardial or pleural fluid detected. No pulmonary infiltrates, nodules or masses are seen. IMPRESSION: No evidence of pulmonary aneurysm or thoracic aortic dissection. CT abdomen and pelvis: No focal liver mass is detected. Gallbladder is surgically absent. No intrahepatic ductal dilatation is seen. Extrahepatic bile duct is prominent and likely owing to post cholecystectomy. The pancreas and spleen are unremarkable. No adrenal mass is detected. Kidneys are unremarkable. Aorta is non-aneurysmal. The small and large bowel loops are normal in caliber. There is no obstruction. There is moderate stool throughout the colon. There is no ascites. No fluid collection or free air is seen. The bladder is unremarkable. Uterus is unremarkable. IMPRESSION: Essentially unremarkable CT of the abdomen and pelvis. No acute feature is detected. Dictated by: Dictated on workstation # [id number]
--- NOTE | 2019-09-02 09:03 | Diagnostic Imaging Report ---
Indication: Fever and cough. Time of exam 1:22 AM Correlation is made prior chest 10/26/2018. The heart size is normal. The pulmonary vascularity is unremarkable. The lungs are clear. No infiltrate, effusion or pneumothorax is detected. Impression: No acute cardiopulmonary process is detected. Dictated by: Dictated on workstation # [id number]
== END 2019-09-02 03:35 | disposition home or self-care (01) ==
LOC: EDUNIT# 23:58 → ER 23:59
DX: R07.9 Chest pain, unspecified (principal); R06.00 Dyspnea, unspecified; F41.9 Anxiety disorder, unspecified; Z20.828 Contact with and (suspected) exposure to other viral communicable diseases; G47.30 Sleep apnea, unspecified; K21.9 Gastro-esophageal reflux disease without esophagitis; M79.7 Fibromyalgia; E03.9 Hypothyroidism, unspecified; F32.9 Major depressive disorder, single episode, unspecified
CPT/HCPCS: 71045; 71275; 74177; 93005

== ENCOUNTER 2020-04-30 17:23 | Emergency (ER) | payer OTHER, MEDICARE ==
[~2020-04-30] VITALS: Ht 160 cm; Wt 46.9 kg
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
[2020-04-30] MEDS ORDERED: HOLD METFORMIN - RECEIVED CONTRAST 20 ML VIAL IV SCH (18:00)
[2020-04-30] MEDS ORDERED: NS 100 ML (IVPB) BAG IV ONE (18:00)
[2020-04-30] MEDS ORDERED: IOHEXOL 350 MG/ML 100 ML (OMNIPAQUE 350) VIAL IV ONE (18:00)
[2020-04-30 18:13] LABS: BASOPHILS # (AUTO) 0.1 10^3/uL (0.0-0.1); BASOPHILS % (AUTO) 1 % (0-10); EOSINOPHILS % (AUTO) 0 % (0-10); HEMATOCRIT 38 % (35-52); HEMOGLOBIN 12.3 g/dL (11.5-16.0); LYMPHOCYTES # (AUTO) 1.6 10^3/uL (1.0-4.0); LYMPHOCYTES % (AUTO) 13 % (12-44); MEAN CORPUSCULAR HEMOGLOBIN 30 pg (25-34); MEAN CORPUSCULAR HGB CONC 33 g/dL (32-36); MEAN CORPUSCULAR VOLUME 92 fL (80-99); MEAN PLATELET VOLUME 10.4 fL (9.0-12.2); MONOCYTES # (AUTO) 0.9 10^3/uL (0.0-1.0); MONOCYTES % (AUTO) 7 % (0-12); NEUTROPHILS # (AUTO) 9.9 10^3/uL (1.8-7.8); NEUTROPHILS % (AUTO) 78 % (42-75); PLATELET COUNT 241 10^3/uL (130-400); WHITE BLOOD COUNT 12.7 10^3/uL (4.3-11.0)
[2020-04-30 18:14] LABS: BILIRUBIN,URINE NEGATIVE (NEGATIVE); CLARITY,URINE CLEAR; COLOR,URINE YELLOW; GLUCOSE, URINE (UA) NEGATIVE (NEGATIVE); KETONES,URINE TRACE (NEGATIVE); LEUKOCYTE ESTERASE ,URINE 1+ (NEGATIVE); NITRITE,URINE NEGATIVE (NEGATIVE); PROTEIN,URINE NEGATIVE (NEGATIVE)
[2020-04-30 18:22] LABS: ALBUMIN 4.4 GM/DL (3.2-4.5); POTASSIUM 3.8 MMOL/L (3.6-5.0)
[2020-04-30 18:23] LABS: CALCIUM 9.1 MG/DL (8.5-10.1)
[2020-04-30 18:25] LABS: AMORPHOUS SEDIMENT,UR FEW AMOR URATES /LPF; BACTERIA,URINE LARGE /HPF
[2020-04-30 18:26] LABS: BILIRUBIN,TOTAL 0.4 MG/DL (0.1-1.0)
[2020-04-30 18:28] LABS: CREATININE SERUM 0.96 MG/DL (0.60-1.30)
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
[2020-04-30 19:54] VITALS: BP 130/71
== END 2020-04-30 19:54 | disposition home or self-care (01) ==
LOC: EDUNIT# 17:23 → ER 17:25
DX: S61.411A Laceration without foreign body of right hand, initial encounter (principal); S51.811A Laceration without foreign body of right forearm, initial encounter; S70.01XA Contusion of right hip, initial encounter; R10.13 Epigastric pain; M54.6 Pain in thoracic spine; D72.829 Elevated white blood cell count, unspecified; F32.9 Major depressive disorder, single episode, unspecified; E03.9 Hypothyroidism, unspecified; G47.30 Sleep apnea, unspecified; Z95.9 Presence of cardiac and vascular implant and graft, unspecified; Z88.1 Allergy status to other antibiotic agents; Z88.2 Allergy status to sulfonamides; Z88.8 Allergy status to other drugs, medicaments and biological substances; Z88.5 Allergy status to narcotic agent; Z79.890 Hormone replacement therapy; V89.2XXA Person injured in unspecified motor-vehicle accident, traffic, initial encounter
CPT/HCPCS: 36415; 71260; 73130; 74177; 80053; 81000; 85025; 87077; 87088; 87186

== ENCOUNTER 2020-11-10 11:50 | Emergency (ER) | payer MEDICARE, OTHER ==
[~2020-11-10] VITALS: Ht 160 cm; Wt 46.3 kg
--- NOTE | 2020-11-10 12:05 | ED Chest Pain ---
General Stated Complaint: CP Source: patient Exam Limitations: no limitations History of Present Illness Date Seen by Provider: Nov 10, 2020 Time Seen by Provider: 11:52 Initial Comments This is a well appearing 70 yo female who presented to the ER with c/o intermittent palpitations and chest discomfort. Left sternal border pressure that started 3 days ago. Last episode was approximately 10 minutes prior to arrival. Allergies and Home Medications Allergies Coded Allergies: Sulfa (Sulfonamide Antibiotics) (Verified Allergy, Severe, ANAPHYLAXIS, 10/03/18) amoxicillin (Verified Allergy, Mild, RASH, 10/03/18) ceftriaxone (Verified Allergy, Mild, RASH, 10/03/18) cephalexin (Verified Allergy, Mild, RASH, 10/03/18) zolmitriptan (Verified Allergy, Mild, RASH, 10/03/18) morphine (Verified Adverse Reaction, Mild, UPSET STOMACH, N/V, 04/21/07) Patient Home Medication List Alprazolam (Xanax) 1 Mg Tablet, 2 MG PO HS, (Reported) Entered as Reported by: WM SMITH on 10/03/18 1126 Bupropion HCl (Bupropion HCl) 100 Mg Tablet, 100 MG PO HS, (Reported) Entered as Reported by: WM SMITH on 10/03/18 112 Cholecalciferol (Vitamin D3) (Vitamin D) 2,000 Unit Capsule, 2,000 UNIT PO DAILY, (Reported) Entered as Reported by: WM SMITH on 10/03/18 112 Citalopram Hydrobromide (Citalopram HBr) 40 Mg Tablet, 40 MG PO HS, (Reported) Entered as Reported by: WM SMITH on 10/03/18 1126 Dicyclomine HCl (Dicyclomine HCl) 10 Mg Capsule, 10 MG PO HS Prescribed by: REBEKAH SANTIAGO on 11/10/20 161 Estradiol/Norethindrone Acet (Activella 0.5-0.1 mg Tablet) 1 Each Tablet, 1 EACH PO HS, (Reported) Entered as Reported by: WM SMITH on 10/03/18 112 Famotidine (Pepcid) 20 Mg Tablet, 20 MG PO BID Prescribed by: REBEKAH SANTIAGO on 11/10/20 1613 Levothyroxine Sodium (Levothyroxine Sodium) 88 Mcg Tablet, 88 MCG PO DAILY, (Reported) Entered as Reported by: WM SMITH on 10/03/18 1126 Loratadine/Pseudoephedrine (Claritin-D 24 Hour Tablet) 1 Each Tab.er.24h, 1 EACH PO DAILY, (Reported) Entered as Reported by: WM SMITH on 10/03/18 1126 Montelukast Sodium (Singulair) 10 Mg Tablet, 10 MG PO HS, (Reported) Entered as Reported by: WM SMITH on 10/03/18 1126 Multivitamin (Multiple Vitamins) 1 Each Tablet, 1 EACH PO DAILY, (Reported) Entered as Reported by: WM SMITH on 10/03/18 112 [place] 3 Polyunsat Fatty Acids (Fish Oil 1,000 mg Capsule) 1,000 Mg Cap, 1,000 MG PO HS, (Reported) Entered as Reported by: WM SMITH on 10/03/18 112 Past Ovuohze-Spohdk-Aqwflx Hx Seasonal Allergies Seasonal Allergies: Yes Past Medical History Surgeries: Yes (HIATAL HERNIA X2, ORAL ) Abdominal, Adenoidectomy, Section, Gallbladder, Tonsillectomy Respiratory: Yes Sleep Apnea Currently Using CPAP: Yes Cardiac: No Neurological: Yes Headaches /Migraines Reproductive Disorders: Yes Sexually Transmitted Disease: No HIV/AIDS: No Genitourinary: Yes UTI-Chronic Gastrointestinal: Yes (SBO-10/26/18-[place] AT [place], NO SURGERY;[facility];APPY) Gastroesophageal Reflux, Obstructive Bowel, Chronic Constipation, Chronic Diarrhea, Gall Bladder Disease Musculoskeletal: Yes (cervical/ lumbar compression fractures;C-SPINE DISC HERNIATION;LUMBAR TP FX) Degenerate Disk Disease, Fibromyalgia, Chronic Back Pain Endocrine: Yes (HYPOGLYCEMIC) Hypothyroidsim HEENT: Yes (READING GLASSES) Loss of Vision: Denies Hearing Impairment: Denies Cancer: No Psychosocial: Yes Depression Integumentary: Yes Eczema Blood Disorders: No (HX ANEMIA) Adverse Reaction/Blood Tranf: No (N/A) Family Medical History PSH: -HIATAL HERNIA REPAIR X 2 -VENTRAL HERNIA REPAIR 2019--DR. ALCANTAR/ TRAV -CECUM REMOVED - -APPENDECTOMY -CHOLECYSTECTOMY -CARDIAC CATH 09/2012 -COLONOSCOPY 10/06/18 Physical Exam Vital Signs Vital Signs - First Documented 11/10/20 11:52 Temp 36.8 Pulse 55 Resp 18 B/P (MAP) 128/63 (84) Pulse Ox 99 O2 Delivery Room Air Capillary Refill : Height, Weight, BMI Height: 5'3.00" Weight: 124lbs. 0oz. 56.952976tw; 18.00 BMI Method:Actual Progress/Results/Core Measures Results/Orders Lab Results Laboratory Tests Test 11/10/20 12:05 11/10/20 15:20 Range/Units White Blood Count 5.8 4.3-11.0 10^3/uL Red Blood Count 4.11 3.80-5.11 10^6/uL Hemoglobin 12.4 11.5-16.0 g/dL Hematocrit 39 35-52 % Mean Corpuscular Volume 94 80-99 fL Mean Corpuscular Hemoglobin 30 25-34 pg Mean Corpuscular Hemoglobin Concent 32 32-36 g/dL Red Cell Distribution Width 11.8 10.0-14.5 % Platelet Count 263 130-400 10^3/uL Mean Platelet Volume 10.2 9.0-12.2 fL Immature Granulocyte % (Auto) 0 % Neutrophils (%) (Auto) 60 42-75 % Lymphocytes (%) (Auto) 27 12-44 % Monocytes (%) (Auto) 11 0-12 % Eosinophils (%) (Auto) 1 0-10 % Basophils (%) (Auto) 1 0-10 % Neutrophils # (Auto) 3.5 1.8-7.8 10^3/uL Lymphocytes # (Auto) 1.6 1.0-4.0 10^3/uL Monocytes # (Auto) 0.6 0.0-1.0 10^3/uL Eosinophils # (Auto) 0.0 0.0-0.3 10^3/uL Basophils # (Auto) 0.1 0.0-0.1 10^3/uL Immature Granulocyte # (Auto) 0.0 0.0-0.1 10^3/uL Prothrombin Time 12.9 12.2-14.7 SEC INR Comment 0.9 0.8-1.4 Activated Partial Thromboplast Time 30 24-35 SEC D-Dimer 0.79 H 0.00-0.49 UG/ML Sodium Level 137 135-145 MMOL/L Potassium Level 3.9 3.6-5.0 MMOL/L Chloride Level 102 98-107 MMOL/L Carbon Dioxide Level 25 21-32 MMOL/L Anion Gap 10 5-14 MMOL/L Blood Urea Nitrogen 10 7-18 MG/DL Creatinine 0.85 0.60-1.30 MG/DL Estimat Glomerular Filtration Rate 67 BUN/Creatinine Ratio 12 Glucose Level 94 70-105 MG/DL Calcium Level 9.3 8.5-10.1 MG/DL Corrected Calcium 9.4 8.5-10.1 MG/DL Magnesium Level 2.0 1.6-2.4 MG/DL Total Bilirubin 0.5 0.1-1.0 MG/DL Aspartate Amino Transf (AST/SGOT) 31 5-34 U/L Alanine Aminotransferase (ALT/SGPT) 33 0-55 U/L Alkaline Phosphatase 55 40-136 U/L Myoglobin 35.7 10.0-92.0 NG/ML Troponin I < 0.028 < 0.028 <0.028 NG/ML B-Type Natriuretic Peptide 58.9 <100.0 PG/ML Total Protein 6.3 L 6.4-8.2 GM/DL Albumin 3.9 3.2-4.5 GM/DL Thyroid Stimulating Hormone (TSH) 4.31 0.35-4.94 UIU/ML My Orders Orders - REBEKAH SANTIAGO POWER SEWING MACHINE OPERATOR Cbc With Automated Diff (11/10/20 12:00) Magnesium (11/10/20 12:00) Chest 1 View, Ap/Pa Only (11/10/20 12:00) Ekg Tracing (11/10/20 12:00) Comprehensive Metabolic Panel (11/10/20 12:00) Myoglobin Serum (11/10/20 12:00) Protime With Inr (11/10/20 12:00) Partial Thromboplastin Time (11/10/20 12:00) O2 (11/10/20 12:00) Monitor-Rhythm Ecg Trace Only (11/10/20 12:00) Ed Iv/Invasive Line Start (11/10/20 12:00) BNP (11/10/20 12:00) Fibrin Degradation Products (11/10/20 12:00) Troponin I (11/10/20 12:00) Thyroid Stimulating Hormone (11/10/20 12:00) Troponin I (11/10/20 15:00) Ct Angio Chest W (11/10/20 13:41) Iohexol Injection (Omnipaque 350 Mg/Ml 1 (11/10/20 14:00) Received Contrast (Hold Metformin- Contr (11/10/20 14:00) Ns (Ivpb) (Sodium Chloride 0.9% Ivpb Bag (11/10/20 14:00) Sodium Chloride Flush (Catheter Flush Sy (11/10/20 14:00) Aspirin Chewable Tablet (Baby Aspirin Ch (11/10/20 14:00) Medications Given in ED Current Medications Medications Dose Ordered Sig/Aung Route Start Time Stop Time Status Last Admin Dose Admin Aspirin 324 mg ONCE ONCE PO 11/10/20 14:00 11/10/20 14:01 DC 11/10/20 14:31 324 MG Iohexol 100 ml ONCE ONCE IV 11/10/20 14:00 11/10/20 14:01 DC 11/10/20 14:49 58 ML Sodium Chloride 10 ml NEEDED PRN IV 11/10/20 14:00 11/10/20 14:49 10 ML Sodium Chloride 100 ml ONCE ONCE IV 11/10/20 14:00 11/10/20 14:01 DC 11/10/20 14:49 80 ML Vital Signs/I&O 11/10/20 11:52 Temp 36.8 Pulse 55 Resp 18 B/P (MAP) 128/63 (84) Pulse Ox 99 O2 Delivery Room Air Initial ECG Impression Date: Nov 10, 2020 Initial ECG Impression Time: 11:55 Initial ECG Rhythm: Normal Sinus Initial ECG Intervals: Normal Initial ECG Impression: Normal Initial ECG Comparisson: Unchanged Diagnostic Imaging Diagonstic Imaging: Xray Plain Films/CT/US/NM/MRI: chest Comments [facility] [place], [place] NAME: PIO MEDRANO [facility] REC#: [id number] PT STATUS: REG ER : 1950 PHYSICIAN: REBEKAH SANTIAGO APRN ADMIT DATE: 11/10/20/ER Signed Date of Exam:11/10/20 CHEST 1 VIEW, AP/PA ONLY CHEST 1 VIEW, AP/PA ONLY Indication: Chest pain. Comparison: 09/02/2019 Findings: No focal airspace disease in the visualized lungs. Please note that the posterior lower lobes are poorly evaluated by portable radiography. No pleural effusion or pneumothorax. Normal cardiomediastinal silhouette. Impression: 1. No acute cardiopulmonary process by portable radiography. Dictated by: Dictated on workstation # [id number] Dict: 11/10/20 1302 Trans: 11/10/20 1303 [facility] [id number] Interpreted by: ERIKA ROSE MD Electronically signed by: ERIKA ROSE MD 11/10/20 1305 Reviewed: Reviewed by Me Departure Impression Primary Impression: Palpitations Additional Impressions: Chest pain Bradycardia GERD (gastroesophageal reflux disease) Disposition: HOME, SELF-CARE Condition: Improved Departure-Patient Inst. Decision time for Depature: 15:33 Referrals: EULA ALICEA DO (PCP/Family) Primary Care Physician SONJA HUGGINS JR, MD Patient Instructions: Chest Pain, Bradycardia (DC) Add. Discharge Instructions: Plan: 1. 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 Please call today or tomorrow to schedule close follow up. If you are unable to have close follow-up with cardiology please contact your primary care provider. 2. Take baby Aspirin daily. May take with food if causes GI upset. Take Pepcid morning and evening before meals. 3. May take dicyclomine at bedtime to see if this will improve your IBD symptoms. 4. Return to ER if you develop any new, concerning, or worsening symptoms. Scripts Famotidine (Pepcid) 20 Mg Tablet 20 MG PO BID for 14 Days, #28 TAB 0 Refills Prov: REBEKAH SANTIAGO POWER SEWING MACHINE OPERATOR 11/10/20 Dicyclomine HCl (Dicyclomine HCl) 10 Mg Capsule 10 MG PO HS for 14 Days, #14 CAP 0 Refills Prov: REBEKAH SANTIAGO POWER SEWING MACHINE OPERATOR 11/10/20 REBEKAH SANTIAGO POWER SEWING MACHINE OPERATOR Nov 10, 2020 12:04
[2020-11-10 12:22] LABS: BASOPHILS # (AUTO) 0.1 10^3/uL (0.0-0.1); BASOPHILS % (AUTO) 1 % (0-10); EOSINOPHILS % (AUTO) 1 % (0-10); HEMATOCRIT 39 % (35-52); HEMOGLOBIN 12.4 g/dL (11.5-16.0); LYMPHOCYTES # (AUTO) 1.6 10^3/uL (1.0-4.0); LYMPHOCYTES % (AUTO) 27 % (12-44); MEAN CORPUSCULAR HEMOGLOBIN 30 pg (25-34); MEAN CORPUSCULAR HGB CONC 32 g/dL (32-36); MEAN CORPUSCULAR VOLUME 94 fL (80-99); MEAN PLATELET VOLUME 10.2 fL (9.0-12.2); MONOCYTES # (AUTO) 0.6 10^3/uL (0.0-1.0); MONOCYTES % (AUTO) 11 % (0-12); NEUTROPHILS # (AUTO) 3.5 10^3/uL (1.8-7.8); NEUTROPHILS % (AUTO) 60 % (42-75); PLATELET COUNT 263 10^3/uL (130-400); WHITE BLOOD COUNT 5.8 10^3/uL (4.3-11.0)
[2020-11-10 12:33] LABS: INR 0.9 (0.8-1.4); PROTHROMBIN TIME PATIENT 12.9 SEC (12.2-14.7)
[2020-11-10 12:50] LABS: ALBUMIN 3.9 GM/DL (3.2-4.5); POTASSIUM 3.9 MMOL/L (3.6-5.0)
[2020-11-10 12:52] LABS: CALCIUM 9.3 MG/DL (8.5-10.1)
[2020-11-10 12:53] LABS: TOTAL PROTEIN 6.3 GM/DL (6.4-8.2)
[2020-11-10 12:55] LABS: BILIRUBIN,TOTAL 0.5 MG/DL (0.1-1.0)
[2020-11-10 12:57] LABS: CREATININE SERUM 0.85 MG/DL (0.60-1.30)
--- NOTE | 2020-11-10 13:04 | Diagnostic Imaging Report ---
CHEST 1 VIEW, AP/PA ONLY Indication: Chest pain. Comparison: 09/02/2019 Findings: No focal airspace disease in the visualized lungs. Please note that the posterior lower lobes are poorly evaluated by portable radiography. No pleural effusion or pneumothorax. Normal cardiomediastinal silhouette. Impression: 1. No acute cardiopulmonary process by portable radiography. Dictated by: Dictated on workstation # [id number]
[2020-11-10] MEDS ORDERED: IOHEXOL 350 MG/ML 100 ML (OMNIPAQUE 350) VIAL IV ONE (14:00)
[2020-11-10] MEDS ORDERED: HOLD METFORMIN - RECEIVED CONTRAST 20 ML VIAL IV SCH (14:00)
[2020-11-10] MEDS ORDERED: ASPIRIN 81 MG CHEW (CHILDREN'S ASA) PO ONE (14:00)
[2020-11-10] MEDS ORDERED: CATHETER FLUSH 10 ML SYR IV PRN (14:00)
[2020-11-10] MEDS ORDERED: NS 100 ML (IVPB) BAG IV ONE (14:00)
--- NOTE | 2020-11-10 15:16 | Diagnostic Imaging Report ---
PROCEDURE: CT angiography of the chest with contrast. TECHNIQUE: Multiple contiguous axial images were obtained through the chest after uneventful bolus administration of intravenous contrast. 3D reconstructed CTA MIP acquisitions were also performed. Auto Exposure Controls were utilized during the CT exam to meet ALARA standards for radiation dose reduction. INDICATION: Chest discomfort. COMPARISON: 04/30/2020. FINDINGS: There is no acute pulmonary embolus to the first subsegmental division of pulmonary arteries. Thoracic aorta is partially obscured by beam hardening artifact from contrast bolus in the SVC, but is otherwise normal in size and contour. By NASCET criteria, there is no focal significant stenosis. There is mild scattered calcified aortic atherosclerosis. Additionally, there is no dissection or aneurysm. Heart size is within normal limits. There is no large pericardial effusion. Note is made of small amount of reflux of contrast into the IVC and hepatic veins. No pathologically enlarged or morphologically abnormal adenopathy is seen within the mediastinum, swapnil, nor axillae. Evaluation of the lung english demonstrates no focal consolidation, large effusion, nor pneumothorax. Small micronodules are noted associated with the major fissure on the left. Largest of these measures 4 mm (image 61, series 3). These are stable compared to 04/30/2020. No new suspicious pulmonary nodules or masses are identified. Osseous structures show no acute abnormalities. No lytic or blastic bony lesions are identified. Included portions of the upper abdomen are unremarkable. IMPRESSION: 1. No acute pulmonary embolus to the first subsegmental division of the pulmonary arteries. 2. Small micronodules associated with the major fissure on the left. These could be on the basis of intrafissural lymph nodes. These are stable compared to 04/30/2020. No new suspicious pulmonary nodule or mass is identified. 3. Reflux of contrast into the IVC and hepatic veins. Findings do suggest some component of elevated right heart pressures or right heart dysfunction. Correlation with echocardiogram is recommended and could be performed on a nonemergent basis. Dictated by: Dictated on workstation # [id number]
[2020-11-10] MEDS ORDERED: DICY10CA12 PO (16:13)
[2020-11-10] MEDS ORDERED: FAMO-119 PO (16:13)
[2020-11-10 16:25] VITALS: BP 117/67
== END 2020-11-10 16:25 | disposition home or self-care (01) ==
LOC: EDUNIT# 11:50 → ER 11:51
DX: R00.2 Palpitations (principal); R07.9 Chest pain, unspecified; R00.1 Bradycardia, unspecified; K21.9 Gastro-esophageal reflux disease without esophagitis; G47.30 Sleep apnea, unspecified; E03.9 Hypothyroidism, unspecified; F32.9 Major depressive disorder, single episode, unspecified; Z79.890 Hormone replacement therapy; Z79.899 Other long term (current) drug therapy
CPT/HCPCS: 36415; 71045; 71275; 80053; 83735; 83874; 83880; 84443; 84484; 85025; 85379; 85610; 85730; 93005; 93041

== ENCOUNTER → 2020-11-26 | Outpatient (CLI) | payer MEDICARE, OTHER ==
[~2020-11-26] MED LIST changes: +DICY10CA12 PO; +FAMO-119 PO
== END ==
LOC: CARD 14:28
PROVIDERS: ATTEND Internal Medicine Cardiovascular Disease
DX: I08.0 Rheumatic disorders of both mitral and aortic valves (principal)
CPT/HCPCS: 93306

== ENCOUNTER → 2020-11-27 | Outpatient (CLI) | payer MEDICARE, OTHER ==
[~2020-11-27] MED LIST changes: +CATHETER FLUSH 10 ML SYR IV PRN; +REGADENOSON 0.4 MG/5 ML SYR (LEXISCAN) IV ONE
[2020-11-27 09:25] VITALS: BP 94/67
[2020-11-27 09:37] VITALS: BP 110/63
--- NOTE | 2020-11-27 13:58 | NUCLEAR STRESS TEST ---
TREADMILL NUCLEAR STRESS TEST Date of procedure: 11/27/2020. Primary care provider: Alexandra Carroll DO. Admitting physician: Iftikhar Oconnor Jr., MD. INDICATION: Chest pain. BASELINE ELECTROCARDIOGRAM: Sinus bradycardia at 52 bpm. STRESS TEST PROCEDURE: The patient was exercised for a total of [] minutes and 10 seconds of the standard Aakash protocol achieving a maximum MET level of 9.1. The resting heart rate was 52 bpm and the peak heart rate was 138 bpm, which represents 90% of the maximum predicted heart rate. The resting blood pressure was 96/60 mmHg and the peak blood pressure was 121/61 mmHg. This represents a normal heart rate and a normal blood pressure response to exercise. The test was stopped due to fatigue. The patient developed chest discomfort during the test that improved in recovery. There were no arrhythmias during the test. T here were no significant stress induced electrocardiogram changes. The patient exhibited good exercise capacity for age. NUCLEAR PROCEDURE: The patient was administered 10.9 mCi of intravenous technetium 99m Tetrofosmin at rest for the rest images. The patient was subsequently administered 31.7 mCi of intravenous technetium 99 M Tetrofosmin at peak stress for the stress images. Following an appropriate wait after each injection, imaging was obtained. The images were subsequently processed and reformatted in the usual views. Gated imaging was obtained. The image quality was good but with some gastrointestinal attenuation artifact. CT attenuation correction was used as a adjunct to standard imaging. Both the corrected and uncorrected images were reviewed for interpretation. NUCLEAR RESULTS: There was normal myocardial perfusion in all segments without evidence of infarction or ischemia. There was normal left ventricular chamber size with an end-diastolic volume of 32 mL and an end-systolic volume of 8 mL. There was no evidence of transient ischemic dilatation. The TID ratio was 0.84. There was normal wall motion in all segments with a calculated ejection fraction of 75%. IMPRESSION: 1. Normal heart rate and blood pressure response to exercise. 2. The patient developed chest discomfort during the test that resolved in recovery. 3. There were no arrhythmias or electrocardiogram changes during the test. 4. The patient exhibited good exercise capacity for age. 5. There was normal myocardial perfusion in all segments without evidence of infarction or ischemia. 6. There was normal wall motion in all segments with a calculated ejection fraction of 75%. Certain portions of this document may have been dictated utilizing voice recognition technology. Inherent to this technology, typographical and grammatical errors may exist. As much as I am diligent to identify and correct these mistakes, some errors may remain in the document. IFTIKHAR OCONNOR JR, MD Nov 27, 2020 13:58
== END ==
LOC: CARD 07:50
PROVIDERS: ATTEND Internal Medicine Cardiovascular Disease
DX: R07.9 Chest pain, unspecified (principal)
CPT/HCPCS: 78452; 93017; A9502

== ENCOUNTER 2022-08-26 20:00 | Outpatient (CLI) | payer MEDICARE, OTHER ==
[~2022-08-26 20:00] MED LIST changes: -CATHETER FLUSH 10 ML SYR IV PRN; -CITA40TA11 PO; +CITA40TA13 PO; +MONT-47 PO; -MONT10TA21 PO; -REGADENOSON 0.4 MG/5 ML SYR (LEXISCAN) IV ONE
== END 2022-08-27 06:32 | disposition home or self-care (01) ==
LOC: SLEEP 20:00
PROVIDERS: ATTEND Internal Medicine Critical Care Medicine
DX: G47.33 Obstructive sleep apnea (adult) (pediatric) (principal)
CPT/HCPCS: 95810